=== PATIENT | male | born 1930 | race Caucasian/White ===

== ENCOUNTER 2016-09-08 09:41 | Emergency (ER) | payer OTHER ==
[2016-09-08 09:47] VITALS: BMI 24.3
[2016-09-08 10:33] LABS: BASOPHIL 0.7 % (0-2.0); EOSINOPHIL 0.8 % (0-4.5); MCH 32.1 pg (25.7-33.7); MCHC 33.4 g/dl (32.0-35.9); MEAN CELL VOLUME 96.1 fl (80-96); MEAN PLT VOLUME 9.2 fl (7.5-11.1); NEUTROPHILS 76.8 % (42.8-82.8); PLATELET COUNT 201 K/MM3 (134-434); WHITE BLOOD COUNT 6.6 K/mm3 (4.0-10.0)
--- NOTE | 2016-09-08 10:56 | PDOC ---
History of Present Illness - General Chief Complaint: Respiratory Stated Complaint: PCP SENT/ PMHX Time Seen by Provider: 09/08/16 09:50 - History of Present Illness Initial Comments: 09/08/16 10:31 CHIEF COMPLAINT: sob, cough HISTORY OF PRESENT ILLNESS: 86 yo M with hx of HTN and COPD presents to ED with shortness of breath x 6 days. Patient states that he was seen at [facility] on Friday and started on Augmentin for bronchitis, but he has had no improvement. He denies any chest pain, headache, fever, chills, nausea, vomiting, diarrhea. No recent travel or sick contacts. PAST MEDICAL HISTORY: as per HPI SOCIAL HISTORY: 50 pack year smoking history, quit 1999. Denies alcohol, illicit drug use. SURGICAL HISTORY: Denies ALLERGIES: No known drug allergies REVIEW OF SYSTEMS General/Constitutional: Denies fever or chills. Denies weakness, weight change. HEENT: Denies change in vision. Denies ear pain or discharge. Denies sore throat. Cardiovascular: Denies chest pain. Respiratory: SOB, cough x 6 days. Denies hemoptysis. Gastrointestinal: Denies nausea, vomiting, diarrhea or constipation. Denies rectal bleeding. Genitourinary: Denies dysuria, frequency, or change in urination. Musculoskeletal: Denies joint or muscle swelling or pain. Denies neck or back pain. Skin and breasts: Denies rash or easy bruising. Neurologic: Denies headache, vertigo, loss of consciousness, or loss of sensation. PHYSICAL EXAM General Appearance: Well-appearing, appropriately dressed. No apparent distress. HEENT: EOMI, PERRLA, normal ENT inspection, normal voice, TMs normal, pharynx normal. No conjunctival pallor. No photophobia, scleral icterus. Neck: Supple. Trachea midline. No tenderness, rigidity, carotid bruit, stridor , lymphadenopathy, or thyromegaly. Respiratory/Chest: Diffuse rhonchi and wheezing b/l. No chest tenderness, respiratory distress, accessory muscle use. No stridor, dullness. Cardiovascular: RRR. S1, S2. No JVD, murmur, bradycardia, tachycardia. Vascular Pulses: Dorsalis-Pedis (R): 2+, Dorsalis-Pedis (L): 2+ Gastrointestinal/Abdominal: Normal bowel sounds. Abdomen soft, non-distended. No tenderness or rebound tenderness. No organomegaly, pulsatile mass, guarding , hernia, hepatomegaly, splenomegaly. Musculoskeletal/Extremities: Normal inspection. FROM of all extremities, normal capillary refill. Pelvis Stable. No CVA tenderness. No tenderness to extremities, pedal edema, swelling, erythema or deformity. Integumentary: Appropriate color, dry, warm. 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 Fully oriented, alert. Appropriate mood/affect. Motor strength 5/5. No appreciable EOM palsy, facial droop or sensory deficit. 09/08/16 11:26 Past History - Past Medical History Allergies/Adverse Reactions: Allergies Allergy/AdvReac Type Severity Reaction Status Date / Time No Known Allergies Allergy Verified 09/08/16 09:47 Home Medications: Ambulatory Orders Lisinopril [Zestril] 2.5 mg PO DAILY 09/08/16 Cancer: Yes (PROSTATE) COPD: Yes HTN: Yes - Surgical History Cholecystectomy: Yes - Psycho/Social/Smoking Cessation Hx Suicidal Ideation: No Smoking History: Former smoker Have you smoked in the past 12 months: No If you are a former smoker, when did you quit?: 17 YRS Information on smoking cessation initiated: No Hx Alcohol Use: No Drug/Substance Use Hx: No Substance Use Type: None *Physical Exam - Vital Signs Last Vital Signs Temp Pulse Resp BP Pulse Ox 98.0 F 75 20 154/78 93 L 09/08/16 09:43 09/08/16 09:43 09/08/16 09:43 09/08/16 09:43 09/08/16 09:43 ED Treatment Course - LABORATORY CBC & Chemistry Diagram: 09/08/16 10:25 09/08/16 10:25 - RADIOLOGY Radiology Studies Ordered: Category Date Time Status CHEST PA & LAT [RAD] Stat Radiology 09/08/16 10:04 Ordered Medical Decision Making - Medical Decision Making 09/08/16 11:37 86 yo M with hx of HTN and COPD presents to ED with shortness of breath x 6 days. -CBC, CMP, PT/INR -CXR, EKG CXR: No acute pathology. Clear hyperaerated lungs. Read by: Alfredo Pappas MD EKG: NSR -DuonebChristopher nebs -Prednisone 60 mg -Azithromycin 500 mg Will reassess. Patient states he does not want to stay in the ED. Will discharge with antibiotics. Advised patient to d/c Augmentin and take Zpack and prednisone as prescribed. Patient verbalized understanding and agrees to plan. *DC/Admit/Observation/Transfer Diagnosis at time of Disposition: COPD (chronic obstructive pulmonary disease) with acute bronchitis - Discharge Dispostion Disposition: HOME Admit: No - Referrals Referrals: Paul Vasquez MD [Primary Care Provider] - - Patient Instructions Printed Discharge Instructions: DI for Acute Bronchitis Additional Instructions: Please take medications as prescribed. Follow up with Dr. Vasquez by the end of this week. As discussed, discontinue the Augmentin and start the azithromycin ( Z-pack). Please complete the entire course of medication. As discussed, if you develop shortness of breath, chest pain, fever, vomiting, or any new or worsening symptoms, please return to the ER.
[2016-09-08 10:57] LABS: ALBUMIN 3.7 g/dl (3.4-5.0); ANION GAP 9 (8-16); BILIRUBIN,TOTAL 1.2 mg/dL (0.2-1.0); CALCIUM 8.5 mg/dL (8.5-10.1); CO2 30 mmol/L (21-32); COCKROFT - GAULT 51.31; CREATININE 1.1 mg/dL (0.7-1.3); GLUCOSE,RANDOM 114 mg/dL (74-106); SGPT/ALT 29 U/L (12-78); TOT PROT 6.9 g/dl (6.4-8.2)
--- NOTE | 2016-09-08 10:59 | EKG ---
Test Reason : Blood Pressure : / mmHG Vent. Rate : 082 BPM Atrial Rate : 082 BPM P-R Int : 182 ms QRS Dur : 084 ms QT Int : 372 ms P-R-T Axes : 071 -20 045 degrees QTc Int : 434 ms POOR DATA QUALITY, INTERPRETATION MAY BE ADVERSELY AFFECTED NORMAL SINUS RHYTHM POOR R WAVE PROGRESSION CANNOT RULE OUT ANTERIOR INFARCT , AGE UNDETERMINED ABNORMAL ECG NO PREVIOUS ECGS AVAILABLE Confirmed by MD KAYLA, ENA ([id number]) on 09/08/2016 10:59:23 AM Referred By: Confirmed By:ENA GARZA MD
[2016-09-08 11:00] LABS: ALK PHOS 55 U/L (45-117); TROPONIN I < 0.02 ng/ml (0.00-0.05)
[2016-09-08] MEDS ORDERED: ALBUTEROL SO4 0.083% IH SOL 2.5 MG/3 ML VIAL.NEB. NEB ONE ×6 (11:00→13:57)
[2016-09-08] MEDS ORDERED: IPRATROPIUM BR 0.02% 0.5 MG/2.5 ML VIAL.NEB. NEB ONE ×2 (11:00→11:06)
[2016-09-08] MEDS ORDERED: predniSONE 20 MG TABLET (UD) PO ONE ×2 (11:00→11:01)
[2016-09-08] MEDS ORDERED: AZITHROMYCIN 250 MG TABLET (FP) PO ONE (11:01)
[2016-09-08 11:02] LABS: SGOT/AST 35 U/L (15-37)
--- NOTE | 2016-09-08 11:02 | PDOC ---
*Physical Exam - Vital Signs Last Vital Signs Temp Pulse Resp BP Pulse Ox 98.0 F 75 20 154/78 96 09/08/16 09:43 09/08/16 09:43 09/08/16 09:43 09/08/16 09:43 09/08/16 10:54 ED Treatment Course - LABORATORY CBC & Chemistry Diagram: 09/08/16 10:25 09/08/16 10:25 - ADDITIONAL ORDERS Additional order review: Laboratory Results 09/08/16 10:25 Sodium 135 L Chloride 96 L Carbon Dioxide 30 Anion Gap 9 BUN 25 H Creatinine 1.1 Creat Clearance w eGFR > 60 Random Glucose 114 H Calcium 8.5 Total Bilirubin 1.2 H ALT 29 Total Protein 6.9 Albumin 3.7 09/08/16 10:25 RBC 4.68 MCV 96.1 H MCHC 33.4 RDW 14.0 MPV 9.2 Neutrophils % 76.8 Lymphocytes % 10.0 Monocytes % 11.7 H Eosinophils % 0.8 Basophils % 0.7 Medical Decision Making - Medical Decision Making 09/08/16 11:01 Pt seen by the Advanced Practice Provider under my direct supervision Pt interviewed and examined Ancillary studies reviewed I agree with plan as outlined by the Advanced Practice Provider DENISE Rodney 86-year-old male with past medical history of COPD presents with coughing for several days. The patient was seen at urgent care and was given Augmentin but symptoms have not proven. Patient continues to wheeze and have chest congestion and the patient was directed to the ER. The patient is likely having a COPD exacerbation. He is significantly wheezy and rhonchorous. We'll initiate nebulizers and steroids. Should consider switching to azithromycin to cover for atypicals. If symptoms do not improve, should consider admission to the hospital. *DC/Admit/Observation/Transfer Diagnosis at time of Disposition: COPD (chronic obstructive pulmonary disease) with acute bronchitis - Discharge Dispostion Disposition: HOME - Referrals Referrals: Paul Vasquez MD [Primary Care Provider] - - Patient Instructions Printed Discharge Instructions: DI for Acute Bronchitis Additional Instructions: Please take medications as prescribed. Follow up with Dr. Vasquez by the end of this week. As discussed, discontinue the Augmentin and start the azithromycin ( Z-pack). Please complete the entire course of medication. As discussed, if you develop shortness of breath, chest pain, fever, vomiting, or any new or worsening symptoms, please return to the ER.
[2016-09-08] MEDS ORDERED: predniSONE 20 MG TABLET (UD) ONE (11:05)
[2016-09-08] MEDS ORDERED: predniSONE 10 MG TABLET (UD) ONE (11:05)
[2016-09-08] MEDS ORDERED: AZITHROMYCIN 250 MG TABLET (FP) ONE (11:19)
[2016-09-08 11:54] LABS: URINE APPEARANCE CLEAR; URINE BILIRUBIN NEGATIVE (NEGATIVE); URINE COLOR LTYELLOW; URINE GLUCOSE (UA) NEGATIVE (NEGATIVE); URINE KETONE TRACE (NEGATIVE); URINE LEUK ESTERASE NEGATIVE (NEGATIVE); URINE NITRITE NEGATIVE (NEGATIVE); URINE PROTEIN NEGATIVE (NEGATIVE); URINE UROBILINOGEN NEGATIVE E.U./dl (0.2-1.0)
[2016-09-08 12:04] LABS: URINE BLOOD 1+ (NEGATIVE)
[2016-09-08 12:06] LABS: URINE MUCUS RARE; URINE WBC <1 /hpf (3-5)
[2016-09-08 13:02] VITALS: BP 151/77; PULSE 94; TEMP 97.5
[2016-09-08] MEDS ORDERED: ALBUTEROL SO4 0.5 % INH SOLN 2.5 MG/0.5 ML VIAL.NEB. NEB ONE (13:22)
[2016-09-08] MEDS ORDERED: MAGNESIUM SULF 50% (8.12 MEQ/2 ML-1 GM VIAL) IVPB ONE (13:22)
[2016-09-08] MEDS ORDERED: MAGNESIUM SULF 50% (8.12 MEQ/2 ML-1 GM VIAL) ONE (13:57)
== END 2016-09-08 15:20 | disposition home or self-care (01) ==
LOC: JER 09:41
PROC: 3E033GC Introduction of Other Therapeutic Substance into Peripheral Vein, Percutaneous Approach (ICD-10-PCS; principal; 2016-09-08)
PROC: 3E0F7GC Introduction of Other Therapeutic Substance into Respiratory Tract, Via Natural or Artificial Opening (ICD-10-PCS; 2016-09-08)
PROC: 3E0F7GC Introduction of Other Therapeutic Substance into Respiratory Tract, Via Natural or Artificial Opening (ICD-10-PCS; 2016-09-08)
PROC: 3E0F7GC Introduction of Other Therapeutic Substance into Respiratory Tract, Via Natural or Artificial Opening (ICD-10-PCS; 2016-09-08)
PROC: 3E0F7GC Introduction of Other Therapeutic Substance into Respiratory Tract, Via Natural or Artificial Opening (ICD-10-PCS; 2016-09-08)
DX: J44.1 Chronic obstructive pulmonary disease with (acute) exacerbation (principal); I10 Essential (primary) hypertension; Z85.46 Personal history of malignant neoplasm of prostate
CPT/HCPCS: 36415; 71020-TC; 80053; 81003; 81015; 82550; 82553; 83880; 84484; 85025; 87086; 93005; 93010; 94640; 96374; 99285-25

== ENCOUNTER 2016-09-12 07:14 | Inpatient (IN) | payer OTHER ==
[2016-09-12] MEDS ORDERED: methylPREDNISolone NA SUCC 125 MG/2 ML VIAL IVPB ONE (07:41)
[2016-09-12] MEDS ORDERED: ALBUTEROL SO4 2.5/IPRATROPIUM 0.5 INH SOL 3 ML VIAL.NEB. NEB ONE ×4 (07:42→15:26)
--- NOTE | 2016-09-12 07:44 | PDOC ---
History of Present Illness - General Chief Complaint: Shortness of Breath Stated Complaint: CONGESTION/DIFFICULTY BREATHING Time Seen by Provider: 09/12/16 07:23 History Source: Patient Exam Limitations: No Limitations - History of Present Illness Initial Comments: 86 y/o M w/PMH of COPD/emphysema, HTN presents to ER with c/o of SOB. Pt was recently in ER on 09/08/16 for same symptoms and was discharged with a z-[place]. Pt states he was improving on z-[place] until yesterday when he felt a sore throat for approximately 15 min and began having worsening SOB since yesterday night, including inability to go to sleep due to SOB. SOB is worse this morning and is worse with sitting back in chair and laying down and exertion. Pt denies cough, chest pain, pain with inspiration, headache, n/v/f/c, abd pain, diarrhea, dysuria, blood in stool, recent sick contacts. At this time he does not have a sore throat and only felt it for 15 minutes yesterday before onset of SOB. He is not on oxygen therapy at home. At baseline he has difficulty walking up hills or stairs. At this time he feels as though he cannot walk more than 10-15 feet before getting SOB. Past History - Past Medical History Allergies/Adverse Reactions: Allergies Allergy/AdvReac Type Severity Reaction Status Date / Time No Known Allergies Allergy Verified 09/12/16 07:21 Home Medications: Ambulatory Orders Lisinopril [Zestril] 2.5 mg PO DAILY 09/08/16 Cancer: Yes (PROSTATE) COPD: Yes HTN: Yes - Surgical History Cholecystectomy: Yes - Psycho/Social/Smoking Cessation Hx Suicidal Ideation: No Smoking History: Former smoker Have you smoked in the past 12 months: No If you are a former smoker, when did you quit?: 17 YRS Information on smoking cessation initiated: No Hx Alcohol Use: No Drug/Substance Use Hx: No Substance Use Type: None Review of Systems - Review of Systems Able to Perform ROS?: Yes Comments:: GENERAL/CONSTITUTIONAL: No fever or chills. HEAD, EYES, EARS, NOSE AND THROAT: +Sore throat. No change in vision. No ear pain or discharge. CARDIOVASCULAR: No chest pain RESPIRATORY:+SOB, dyspnea with exertion No cough, wheezing, or hemoptysis. GASTROINTESTINAL: No nausea, vomiting GENITOURINARY: No dysuria. NEUROLOGIC: No headache, loss of consciousness. ALLERGIC/IMMUNOLOGIC: No hives *Physical Exam - Vital Signs Last Vital Signs Temp Pulse Resp BP Pulse Ox 97.6 F 87 20 164/95 95 09/12/16 07:17 09/12/16 07:17 09/12/16 07:17 09/12/16 07:17 09/12/16 07:30 - Physical Exam Comments: GENERAL: Awake, alert, and fully oriented, in no acute distress HEAD: No signs of trauma EYES: EOMI, sclera anicteric, conjunctiva clear ENT: Auricles normal inspection, hearing grossly normal, nares patent NECK: Normal ROM, supple LUNGS: B/L coarse breath sounds, tachypneic, some accessory muscle use but speaking in full sentences HEART: Difficult to auscultate over breath sounds ABDOMEN: Soft, nontender, normoactive bowel sounds. EXTREMITIES: Normal range of motion, no edema. NEUROLOGICAL: Normal speech, normal gait SKIN: Warm, Dry Heart Score/ECG Review - ECG Intrepretation Comment:: EKG: NSR @ 99 bpm; QTc 428 ms; No ST segment changes ED Treatment Course - LABORATORY CBC & Chemistry Diagram: 09/12/16 08:02 09/12/16 07:50 Medical Decision Making - Medical Decision Making 09/12/16 07:39 Likely COPD exacerbation. Will also r/o pna. Ordered: CXR, CBCD, CMP, cardiac profile, blood culture, EKG Ordered: Duo-neb, 125 mg IV solumedrol 09/12/16 08:48 CXR: No acute pathology. No significant change compared to CXR on 09/08/16. 09/12/16 09:24 Pt improved, able to lay back without SOB at this time. Will also give 1g ceftriaxone IV. To likely to require admission for COPD exacerbation. 09/12/16 09:35 Page sent out to Dr. Chen, covering for Dr. Vasquez. 09/12/16 10:[address] Escalera to Dr. Chen. Pt accepted for admission. *DC/Admit/Observation/Transfer Diagnosis at time of Disposition: COPD (chronic obstructive pulmonary disease) with acute bronchitis - Referrals Referrals: Paul Vasquez MD [Primary Care Provider] -
[2016-09-12] MEDS ORDERED: methylPREDNISolone NA SUCC 125 MG/2 ML VIAL ONE (07:53)
--- NOTE | 2016-09-12 08:03 | PDOC ---
Attending Attestation - Resident Resident Name: Dc Oseguera - ED Attending Attestation I have performed the following: I have examined & evaluated the patient, The case was reviewed & discussed with the resident, I agree w/resident's findings & plan, Exceptions are as noted - HPI HPI: 09/12/16 08:50 86-year-old male with past medical history of COPD returns to the emergency department for persistent rhonchi and wheezing. We had seen the patient several days ago for some her symptoms where he had improved with prednisone, azithromycin and nebulizers. However, patient reports that the symptoms worsened last day or 2. Reports shortness of breath. Return to the ED for further management. Reports congestion. - Physicial Exam PE: 09/12/16 08:51 GENERAL: Awake, alert, and fully oriented, in no acute distress. HEAD: No signs of trauma EYES: PERRLA, EOMI, sclera anicteric, conjunctiva clear ENT: Auricles normal inspection, hearing grossly normal, nares patent, oropharynx clear without exudates. NECK: Normal ROM, supple, no lymphadenopathy, JVD, or masses LUNGS: Diffuse ronchi and wheezing bilaterally HEART: Regular rate and rhythm, normal S1 and S2, no murmurs, rubs or gallops ABDOMEN: Soft, nontender, normoactive bowel sounds. No guarding, no rebound. No masses EXTREMITIES: Normal range of motion, no edema. No clubbing or cyanosis. No cords, erythema, or tenderness NEUROLOGICAL: Cranial nerves II through XII grossly intact. Normal speech, normal gait SKIN: Warm, Dry, normal turgor, no rashes or lesions noted. - Medical Decision Making 09/12/16 08:51 Patient continues to have persistent wheezing and rhonchi likely consistent with COPD exacerbation. The patient would benefit from admission to the hospital given frequent urgent care and ED visits for similar problems in the last week and a half. Nebs and steroids. Heart Score/ECG Review #1 ECG reviewed & interpreted by me at: 07:40 09/12/16 08:52 NSR 99, no std/keshawn, normal axis, normal intervals, QTC 428 msec
[2016-09-12 08:18] LABS: BASOPHIL 0.1 % (0-2.0); MCH 32.3 pg (25.7-33.7); MCHC 33.7 g/dl (32.0-35.9); MEAN CELL VOLUME 95.9 fl (80-96); MEAN PLT VOLUME 9.3 fl (7.5-11.1); NEUTROPHILS 94.2 % (42.8-82.8); PLATELET COUNT 313 K/MM3 (134-434); RDW 13.8 % (11.9-15.9); WHITE BLOOD COUNT 9.3 K/mm3 (4.0-10.0)
[2016-09-12 08:34] LABS: ALK PHOS 57 U/L (45-117); ANION GAP 12 (8-16); BILIRUBIN,TOTAL 1.2 mg/dL (0.2-1.0); CALCIUM 9.9 mg/dL (8.5-10.1); CO2 28 mmol/L (21-32); CREATININE 1.1 mg/dL (0.7-1.3); GLUCOSE,RANDOM 126 mg/dL (74-106); SGPT/ALT 29 U/L (12-78); TOT PROT 7.2 g/dl (6.4-8.2)
[2016-09-12 08:34] LABS: TROPONIN I < 0.02 ng/ml (0.00-0.05)
[2016-09-12 08:36] LABS: SGOT/AST 20 U/L (15-37)
[2016-09-12] MEDS ORDERED: CEFTRIAXONE 1 GM in DEXTROSE 5%-WATER - 50 ML IVPB ONE (09:40)
[2016-09-12] MEDS ORDERED: CEFTRIAXONE 50 ML ONE (09:46)
[2016-09-12] MEDS ORDERED: MAGNESIUM SULF 50% (8.12 MEQ/2 ML-1 GM VIAL) IVPB ONE (10:08)
[2016-09-12] MEDS ORDERED: PIPERACILLIN/TAZOB 3.375 GM/50 ML PRE-DOCKED IVPB ONE (10:08)
--- NOTE | 2016-09-12 10:12 | PDOC ---
*Physical Exam - Vital Signs Last Vital Signs Temp Pulse Resp BP Pulse Ox 97.6 F 87 20 164/95 95 09/12/16 07:17 09/12/16 07:17 09/12/16 07:17 09/12/16 07:17 09/12/16 07:30 ED Treatment Course - LABORATORY CBC & Chemistry Diagram: 09/12/16 08:02 09/12/16 07:50 - ADDITIONAL ORDERS Additional order review: Laboratory Results 09/12/16 09/12/16 08:02 07:50 Sodium 137 Potassium 4.4 Chloride 97 L Carbon Dioxide 28 Anion Gap 12 BUN 30 H Creatinine 1.1 Creat Clearance w eGFR > 60 Random Glucose 126 H Calcium 9.9 Total Bilirubin 1.2 H AST 20 D ALT 29 Alkaline Phosphatase 57 Creatine Kinase 74 Troponin I < 0.02 Total Protein 7.2 Albumin 4.0 09/12/16 08:02 RBC 4.92 MCV 95.9 MCHC 33.7 RDW 13.8 MPV 9.3 Neutrophils % 94.2 H D Lymphocytes % 4.5 L D Monocytes % 1.2 L D Eosinophils % 0.0 D Basophils % 0.1 - RADIOLOGY Radiology Studies Ordered: Category Date Time Status CHEST PA & LAT (NICOLÁS USE) [RAD] Stat Radiology 09/12/16 07:33 Completed - Medications Given in the ED: ED Medications Discontinued Medications Generic Name Dose Route Start Last Admin Trade Name Lisa PRN Reason Stop Dose Admin Albuterol/Ipratropium 1 amp 09/12/16 07:42 09/12/16 07:59 Duoneb - NEB 09/12/16 07:43 1 amp ONCE ONE Administration Ceftriaxone Sodium 1 gm/ 50 mls @ 100 mls/hr 09/12/16 09:40 09/12/16 09:55 Dextrose IVPB 09/12/16 10:09 100 mls/hr ONCE ONE Administration Methylprednisolone Sodium Succinate 125 mg 09/12/16 07:41 09/12/16 07:59 Solu-Medrol - IVPB 09/12/16 07:42 125 mg ONCE ONE Administration Medical Decision Making - Medical Decision Making 09/12/16 10:11 Chest xray and labs reviewed. Pt continues to wheeze and cough. Case discussed with Dr. Chen. Accepts patient to med/surg admission. Requests zosyn and consultation with Dr. Cedeño and Dr. Martinez. Case discussed in detail with admitting physician including history, physical exam and ancillary studies. Admitting physician has assumed care for the patient, will follow all pending diagnostics and will complete the evaluation and treatment. *DC/Admit/Observation/Transfer Diagnosis at time of Disposition: COPD (chronic obstructive pulmonary disease) with acute bronchitis - Discharge Dispostion Condition at time of disposition: Stable Admit: Yes
[2016-09-12] MEDS ORDERED: MAGNESIUM SULF 50% (8.12 MEQ/2 ML-1 GM VIAL) ONE (10:47)
[2016-09-12] MEDS ORDERED: PIPERACILLIN/TAZOB 3.375 GM 50 ML IVPB ONE (10:47)
[2016-09-12 11:00] LABS: ALLENS TEST POSITIVE; ARTERIAL BLD GAS O2 SATURATION 86.9 % (90-98.9); ARTERIAL BLOOD GAS BASE EXCESS 3.8 meq/l (-2-2); ARTERIAL BLOOD GAS HCO3 27.7 meq/L (22-26); ARTERIAL BLOOD GAS pH 7.45 (7.35-7.45)
[2016-09-12 11:01] LABS: ART PUNCT SITE LEFT RADIAL; ARTERIAL BLOOD GAS PO2 53.9 mmHg (68-100); LPM/O2% 21%; PT. ON O2? NO; TYPE OF O2 ROOM AIR
--- NOTE | 2016-09-12 13:07 | EKG ---
Test Reason : Blood Pressure : / mmHG Vent. Rate : 099 BPM Atrial Rate : 099 BPM P-R Int : 180 ms QRS Dur : 088 ms QT Int : 334 ms P-R-T Axes : 074 -06 045 degrees QTc Int : 428 ms POOR DATA QUALITY, INTERPRETATION MAY BE ADVERSELY AFFECTED NORMAL SINUS RHYTHM NORMAL ECG WHEN COMPARED WITH ECG OF 08-SEP-2016 10:05, NO SIGNIFICANT CHANGE WAS FOUND Confirmed by MARK MERLOS, SUE ([id number]) on 09/12/2016 1:06:47 PM Referred By: Confirmed By:SUE FLORES MD
--- NOTE | 2016-09-12 15:49 | CON.PULM ---
Consult Consult Specialty:: PULMONARY Referred by:: Dr. Escalera Reason for Consultation:: shortness of breath - History of Present Illness Chief Complaint: shortness of breath History of Present Illness: 86yo male with h/o HTN, COPD/emphysema who presents with worsening shortness of breath x 2 weeks. He was seen in the ER on 09/08 for similar symptoms and was discharged on a Z-[place]. He denies any chest pain or palpitations. No cough but with wheezing. He does not take any inhalers or use home oxygen. He denies sick contacts or recent travel. No leg swelling but has been sleeping almost in an upright position in order to breathe. He was a long time smoker, starting in his teens, smoked about 2 PPD until he quit 17 years ago. He worked at the [employer]. - History Source History Provided By: Patient, Medical Record Limitations to Obtaining History: No Limitations - Past Medical History Cardio/Vascular: Yes: HTN Pulmonary: Yes: COPD - Alcohol/Substance Use Hx Alcohol Use: No - Smoking History Smoking history: Former smoker Have you smoked in the past 12 months: No If you are a former smoker, when did you quit?: 17 YRS Home Medications - Allergies Allergies/Adverse Reactions: Allergies Allergy/AdvReac Type Severity Reaction Status Date / Time No Known Allergies Allergy Verified 09/12/16 07:21 - Home Medications Home Medications: Ambulatory Orders Lisinopril [Zestril] 2.5 mg PO DAILY 09/08/16 Family Disease History - Family Disease History Other Family History: non-contributory Review of Systems - Review of Systems Constitutional: reports: Weakness. denies: Chills, Fever Eyes: denies: Recent Change in Vision HENT: denies: Nasal Congestion, Throat Pain Neck: denies: Stiffness, Tenderness Cardiovascular: reports: Shortness of Breath. denies: Chest Pain, Edema, Palpitations Respiratory: reports: Exercise Intolerance, Orthopnea, SOB, SOB on Exertion, Wheezing. denies: Cough, Hemoptysis Gastrointestinal: denies: Abdominal Pain, Nausea, Vomiting Genitourinary: denies: Dysuria, Hematuria Neurological: denies: Dizziness, Headache Endocrine: denies: Unexplained Weight Loss Physical Exam Vital Sings: Vital Signs Temperature 97.9 F 09/12/16 11:27 Pulse Rate 83 09/12/16 15:25 Respiratory Rate 16 09/12/16 15:25 Blood Pressure 157/83 09/12/16 15:25 O2 Sat by Pulse Oximetry (%) 93 L 09/12/16 15:25 Constitutional: Yes: Calm Eyes: Yes: Conjunctiva Clear, EOM Intact HENT: Yes: Atraumatic, Normocephalic Neck: Yes: Supple, Trachea Midline Cardiovascular: Yes: Regular Rate and Rhythm Respiratory: Yes: Rhonchi, Wheezes ...Clubbing: No Gastrointestinal: Yes: Normal Bowel Sounds, Soft. No: Tenderness Edema: No Neurological: Yes: Alert, Oriented Labs: ABG Results ABG pH 7.45 (7.35-7.45) 09/12/16 10:45 ABG pCO2 at Pt Temp 41.0 mmHg (35-45) 09/12/16 10:45 ABG pO2 at Pt Temp 53.9 mmHg (68-100) L 09/12/16 10:45 ABG HCO3 27.7 meq/L (22-26) H 09/12/16 10:45 ABG O2 Sat (Measured) 86.9 % (90-98.9) L 09/12/16 10:45 ABG O2 Content 18.1 % vol (15-22) 09/12/16 10:45 ABG Base Excess 3.8 meq/l (-2-2) H 09/12/16 10:45 Imaging - Results Chest X-ray: Report Reviewed, Image Reviewed (no infiltrates) Problem List - Problems (1) Acute exacerbation of chronic obstructive pulmonary disease Code(s): J44.1 - CHRONIC OBSTRUCTIVE PULMONARY DISEASE W (ACUTE) EXACERBATION (2) COPD (chronic obstructive pulmonary disease) Code(s): J44.9 - CHRONIC OBSTRUCTIVE PULMONARY DISEASE, UNSPECIFIED (3) Emphysema of lung Code(s): J43.9 - EMPHYSEMA, UNSPECIFIED (4) HTN (hypertension) Code(s): I10 - ESSENTIAL (PRIMARY) HYPERTENSION Assessment/Plan Acute COPD Exacerbation Emphysema HTN - IV medrol - inhaled bronchodilators standing and PRN - O2 to keep SpO2 >90% - s/p recent Z-[place], no signs of infection at this time, can monitor off antibiotics - will need outpt PFTs and follow up - DVT prophylaxis Thank you for this consult Zachary Mathias MD
[2016-09-12] MEDS ORDERED: ALBUTEROL SO4 0.083% IH SOL 2.5 MG/3 ML VIAL.NEB. NEB PRN (15:53)
[2016-09-12] MEDS: methylPREDNISolone NA SUCC 40 MG/1 ML VIAL IVPB SCH ×2 (16:06→17:40)
[2016-09-12] MEDS ORDERED: ACETAMINOPHEN 325 MG TABLET (FP) PO PRN (16:51)
--- NOTE | 2016-09-12 16:59 | HP ---
Admitting History and Physical - Primary Care Physician PCP: Dr reymundo Cassidy - Admission Chief Complaint: C/O SOB/ Chest tightness/cough History of Present Illness: 86-year-old male with past medical history of COPD returns to the emergency department for persistent rhonchi and wheezing. We had seen the patient several days ago for some her symptoms where he had improved with prednisone, azithromycin and nebulizers. However, patient reports that the symptoms worsened last day or 2. Reports shortness of breath. Return to the ED for further management. Reports congestion. History Source: Patient Limitations to Obtaining History: No Limitations - Past Medical History Cardiovascular: Yes: HTN Pulmonary: Yes: COPD - Smoking History Smoking history: Former smoker Have you smoked in the past 12 months: No If you are a former smoker, when did you quit?: 17 YRS - Alcohol/Substance Use Hx Alcohol Use: No Home Medications - Allergies Allergies/Adverse Reactions: Allergies Allergy/AdvReac Type Severity Reaction Status Date / Time No Known Allergies Allergy Verified 09/12/16 07:21 - Home Medications Home Medications: Ambulatory Orders Lisinopril [Zestril] 2.5 mg PO DAILY 09/08/16 Family Disease History - Family Disease History Other Family History: non-contributory Review of Systems - Review of Systems Constitutional: reports: Lethargy, Malaise Eyes: reports: No Symptoms HENT: reports: Nasal Congestion, Throat Pain Neck: reports: No Symptoms Cardiovascular: reports: Other (Chest tightness) Respiratory: reports: Cough, SOB Gastrointestinal: reports: No Symptoms Genitourinary: reports: No Symptoms Musculoskeletal: reports: Back Pain Neurological: reports: No Symptoms Psychiatric: reports: Anxiety (From steroids) Physical Examination Vital Signs: Vital Signs Temperature 97.9 F 09/12/16 11:27 Pulse Rate 83 09/12/16 15:25 Respiratory Rate 16 09/12/16 15:25 Blood Pressure 157/83 09/12/16 15:25 O2 Sat by Pulse Oximetry (%) 93 L 09/12/16 15:25 Problem List - Problems (1) Acute exacerbation of chronic obstructive pulmonary disease Code(s): J44.1 - CHRONIC OBSTRUCTIVE PULMONARY DISEASE W (ACUTE) EXACERBATION (2) Acute hypoxemic respiratory failure Code(s): J96.01 - ACUTE RESPIRATORY FAILURE WITH HYPOXIA (3) Emphysema of lung Code(s): J43.9 - EMPHYSEMA, UNSPECIFIED (4) HTN (hypertension) Code(s): I10 - ESSENTIAL (PRIMARY) HYPERTENSION (5) Anxiety Code(s): F41.9 - ANXIETY DISORDER, UNSPECIFIED Assessment/Plan (1) Acute exacerbation of chronic obstructive pulmonary disease Code(s): J44.1 - CHRONIC OBSTRUCTIVE PULMONARY DISEASE W (ACUTE) EXACERBATION (2) Acute hypoxemic respiratory failure Code(s): J96.01 - ACUTE RESPIRATORY FAILURE WITH HYPOXIA (3) Emphysema of lung Code(s): J43.9 - EMPHYSEMA, UNSPECIFIED (4) HTN (hypertension) Code(s): I10 - ESSENTIAL (PRIMARY) HYPERTENSION (5) Anxiety Code(s): F41.9 - ANXIETY DISORDER, UNSPECIFIED
[2016-09-12 17:45] VITALS: BMI 25.6
--- NOTE | 2016-09-12 18:05 | CONSULT ---
Consult Consult Specialty:: infectious diseases Reason for Consultation:: pneumonia - History of Present Illness Chief Complaint: cough,wheezing History of Present Illness: 86 y/o M w/PMH of COPD/emphysema, HTN presents to admitted with sob . Pt was recently in ER on 09/08/16 for same symptoms and was discharged with a z -[place]. Pt states he was improving on z-[place] until yesterday when he felt a sore throat for approximately 15 min and began having worsening SOB , patient states that he was driving his and then he started to feel very sob specially after he started having sore throat patient does not feel any better at the moment patient needs oxygen and he is wheezing a lot with gurgling type of sound - History Source History Provided By: Patient Limitations to Obtaining History: No Limitations - Past Medical History Cardio/Vascular: Yes: HTN Pulmonary: Yes: COPD - Alcohol/Substance Use Hx Alcohol Use: No - Smoking History Smoking history: Former smoker Have you smoked in the past 12 months: No If you are a former smoker, when did you quit?: 17 YRS Home Medications - Allergies Allergies/Adverse Reactions: Allergies Allergy/AdvReac Type Severity Reaction Status Date / Time No Known Allergies Allergy Verified 09/12/16 07:21 - Home Medications Home Medications: Ambulatory Orders Lisinopril [Zestril] 2.5 mg PO DAILY 09/08/16 Family Disease History - Family Disease History Other Family History: non-contributory Review of Systems - Review of Systems Constitutional: reports: No Symptoms Eyes: reports: No Symptoms HENT: reports: No Symptoms Neck: reports: No Symptoms Cardiovascular: reports: No Symptoms Respiratory: reports: Cough, SOB, SOB on Exertion, Wheezing, Other Gastrointestinal: reports: No Symptoms Musculoskeletal: reports: No Symptoms Integumentary: reports: No Symptoms Neurological: reports: No Symptoms Endocrine: reports: No Symptoms Hematology/Lymphatic: reports: No Symptoms Psychiatric: reports: No Symptoms Physical Exam Vital Signs: Vital Signs Temperature 98.3 F 09/12/16 16:51 Pulse Rate 98 H 09/12/16 16:51 Respiratory Rate 22 09/12/16 16:51 Blood Pressure 150/93 09/12/16 16:51 O2 Sat by Pulse Oximetry (%) 93 L 09/12/16 15:25 Constitutional: Yes: Calm, Moderate Distress Eyes: Yes: Conjunctiva Clear HENT: Yes: Pharyngeal Erythema Cardiovascular: Yes: Regular Rate and Rhythm Respiratory: Yes: Poor Air Entry, Rhonchi, Wheezes Gastrointestinal: Yes: Normal Bowel Sounds, Soft Musculoskeletal: Yes: WNL Extremities: Yes: WNL Neurological: Yes: Alert, Oriented Psychiatric: Yes: Alert, Oriented Imaging - Results Chest X-ray: Report Reviewed, Image Reviewed Assessment/Plan after evaluating the patient and looking at his throat patinet has definitely has pharyngitis also there is definitely bronchitis and patient might have pneumonia pneumonia bronchitis cough patient has completed the course of z pack but has not improved in view of that i am going to start on abx plan i have started patient on zosyn will see if patient improves or not if patient does not improve will repeat ct scan
[2016-09-12 18:24] LABS: BASOPHIL 0.1 % (0-2.0); MCH 32.2 pg (25.7-33.7); MCHC 33.6 g/dl (32.0-35.9); MEAN CELL VOLUME 95.6 fl (80-96); MEAN PLT VOLUME 8.9 fl (7.5-11.1); PLATELET COUNT 304 K/MM3 (134-434); RDW 13.5 % (11.9-15.9); WHITE BLOOD COUNT 7.8 K/mm3 (4.0-10.0)
[2016-09-12] MEDS: PIPERACILLIN/TAZOB 3.375 GM 50 ML IVPB SCH (18:30)
[2016-09-12] MEDS: ALBUTEROL SO4 2.5/IPRATROPIUM 0.5 INH SOL 3 ML VIAL.NEB. NEB SCH ×2 (18:31→23:01)
[2016-09-12] MEDS: DEXTROSE 5%-0.45% SALINE 1,000 ML IV SCH (18:32)
[2016-09-12 18:43] LABS: ALBUMIN 3.9 g/dl (3.4-5.0); BILIRUBIN,TOTAL 0.8 mg/dL (0.2-1.0); CALCIUM 9.3 mg/dL (8.5-10.1); COCKROFT - GAULT 41.79; CREATININE 1.3 mg/dL (0.7-1.3)
[2016-09-12] MEDS: HEPARIN NA (PORCINE) 5,000 UNITS/ML 1ML VIAL SQ SCH (21:36)
[2016-09-12] MEDS: PANTOPRAZOLE 40 MG TABLET (FP) PO SCH (21:37)
[2016-09-12] MEDS: MONTELUKAST NA 10 MG TABLET PO SCH (21:37)
[2016-09-12] MEDS: BUDESONIDE/FORMETEROL FUMARATE 160/4.5 mcg INHALER IH SCH (21:38)
[2016-09-12] MEDS: ZOLPIDEM TARTRATE 5 MG TABLET PO PRN (21:38)
[2016-09-13] MEDS ORDERED: ENOXAPARIN NA (PORCINE) 60 MG/0.6 ML DISP.SYRIN SQ ONE ×2 (00:15→23:45)
[2016-09-13] MEDS: methylPREDNISolone NA SUCC 40 MG/1 ML VIAL IVPB SCH ×3 (02:10→17:33)
[2016-09-13] MEDS: PIPERACILLIN/TAZOB 3.375 GM 50 ML IVPB SCH ×3 (02:12→18:15)
[2016-09-13] MEDS: ALBUTEROL SO4 2.5/IPRATROPIUM 0.5 INH SOL 3 ML VIAL.NEB. NEB SCH ×4 (06:45→23:30)
[2016-09-13 08:59] LABS: MAGNESIUM 2.3 mg/dL (1.8-2.4); PHOSPHOROUS 3.8 mg/dL (2.5-4.9); TROPONIN I < 0.02 ng/ml (0.00-0.05)
[2016-09-13] MEDS ORDERED: PT OWN MED DRAWER 7, Y5N ONE (09:46)
[2016-09-13] MEDS: PANTOPRAZOLE 40 MG TABLET (FP) PO SCH ×2 (09:53→23:34)
[2016-09-13] MEDS: LISINOPRIL 5 MG TABLET (FP) PO SCH (09:53)
[2016-09-13] MEDS: HEPARIN NA (PORCINE) 5,000 UNITS/ML 1ML VIAL SQ SCH (09:53)
[2016-09-13] MEDS: BUDESONIDE/FORMETEROL FUMARATE 160/4.5 mcg INHALER IH SCH ×2 (09:56→23:34)
[2016-09-13 10:37] LABS: ARTERIAL BLOOD GAS PO2 72.5 mmHg (68-100); ARTERIAL BLOOD GAS pH 7.42 (7.35-7.45)
[2016-09-13 10:38] LABS: ALLENS TEST POSITIVE
[2016-09-13 10:39] LABS: ART PUNCT SITE RIGHT BRACHIAL; LPM/O2% 2L; PT. ON O2? YES
[2016-09-13 10:40] LABS: ARTERIAL BLOOD GAS HCO3 27.6 meq/L (22-26); TYPE OF O2 NASAL O2
[2016-09-13] MEDS: DEXTROSE 5%-0.45% SALINE 1,000 ML IV SCH (12:19)
--- NOTE | 2016-09-13 13:14 | PN ---
Progress Note, Physician History of Present Illness: PULMONARY ALERT,SLOWLY IMPROVING, REMAINS HYPOXEMIC ON RA - Current Medication List Current Medications: Active Medications Acetaminophen (Tylenol -) 650 mg PO Q4H PRN PRN Reason: FEVER OR PAIN Last Admin: 09/13/16 09:54 Dose: 650 mg Albuterol Sulfate (Ventolin 0.083% Nebulizer Soln -) 1 amp NEB Q4H PRN PRN Reason: SHORT OF BREATH/WHEEZING Last Admin: 09/13/16 00:07 Dose: 1 amp Albuterol/Ipratropium (Duoneb -) 1 amp NEB QIDR [facility] Last Admin: 09/13/16 11:17 Dose: 1 amp Budesonide/Formoterol Fumarate (Symbicort 160/4.5mcg -) 2 puff IH BID [facility] Last Admin: 09/13/16 09:56 Dose: 2 puff Heparin Sodium (Porcine) (Heparin -) 5,000 unit SQ BID [facility] Last Admin: 09/13/16 09:53 Dose: 5,000 unit Dextrose/Sodium Chloride (D5-1/2ns -) 1,000 mls @ 75 mls/hr IV ASDIR [facility] Last Admin: 09/13/16 12:19 Dose: 75 mls/hr Piperacillin Sod/Tazobactam Sod (Zosyn 3.375gm Ivpb (Pre-Docked)) 50 mls @ 100 mls/hr IVPB Q8H-IV [facility] PRN Reason: Protocol Last Admin: 09/13/16 10:45 Dose: 100 mls/hr Lisinopril (Prinivil) 5 mg PO DAILY [facility] Last Admin: 09/13/16 09:53 Dose: 5 mg Methylprednisolone Sodium Succinate (Solu-Medrol -) 40 mg IVPB Q8H-IV [facility] Last Admin: 09/13/16 09:54 Dose: 40 mg Montelukast Sodium (Singulair -) 10 mg PO HS [facility] Last Admin: 09/12/16 21:37 Dose: 10 mg Pantoprazole Sodium (Protonix -) 40 mg PO BID [facility] Last Admin: 09/13/16 09:53 Dose: 40 mg Zolpidem Tartrate (Ambien -) 5 mg PO HS PRN PRN Reason: INSOMNIA Last Admin: 09/12/16 21:38 Dose: 5 mg - Objective Vital Signs: Vital Signs Temperature 97.8 F 09/13/16 10:10 Pulse Rate 98 H 09/13/16 10:10 Respiratory Rate 22 09/13/16 10:10 Blood Pressure 145/77 09/13/16 10:10 O2 Sat by Pulse Oximetry (%) 94 L 09/12/16 21:00 Constitutional: Yes: Well Nourished, Calm Eyes: Yes: WNL HENT: Yes: WNL Neck: Yes: WNL Cardiovascular: Yes: Regular Rate and Rhythm, S1, S2 Respiratory: Yes: Rhonchi (FEW RHONCHI) Gastrointestinal: Yes: Normal Bowel Sounds, Soft Extremities: Yes: WNL Edema: No Labs: Laboratory Tests 09/12/16 09/13/16 10:45 10:05 ABG pH 7.45 7.42 ABG pCO2 at Pt Temp 41.0 43.9 ABG pO2 at Pt Temp 53.9 L 72.5 D ABG HCO3 27.7 H 27.6 H ABG O2 Sat (Measured) 86.9 L 94.0 ABG O2 Content 22.0 O2 Delivery Device Nasal o2 Oxygen Flow Rate 21% 2l Problem List - Problems (1) Acute hypoxemic respiratory failure Code(s): J96.01 - ACUTE RESPIRATORY FAILURE WITH HYPOXIA Assessment/Plan Problem List - Problems (1) Acute exacerbation of chronic obstructive pulmonary disease Code(s): J44.1 - CHRONIC OBSTRUCTIVE PULMONARY DISEASE W (ACUTE) EXACERBATION (2) COPD (chronic obstructive pulmonary disease) Code(s): J44.9 - CHRONIC OBSTRUCTIVE PULMONARY DISEASE, UNSPECIFIED (3) Emphysema of lung Code(s): J43.9 - EMPHYSEMA, UNSPECIFIED (4) HTN (hypertension) Code(s): I10 - ESSENTIAL (PRIMARY) HYPERTENSION Assessment/Plan Acute COPD Exacerbation Acute hypoxemic respiratory failure Emphysema HTN - IV medrol same dose - spiriva - symbicort - inhaled bronchodilators - O2 to keep SpO2 >90% - outpt PFTs and follow up - DVT prophylaxis DR MOSLEY
[2016-09-13 13:44] LABS: CALCIUM 8.9 mg/dL (8.5-10.1); COCKROFT - GAULT 41.79; CREATININE 1.3 mg/dL (0.7-1.3)
[2016-09-13 13:50] LABS: MCH 32.4 pg (25.7-33.7); MCHC 33.6 g/dl (32.0-35.9); MEAN CELL VOLUME 96.4 fl (80-96); PLATELET COUNT 290 K/MM3 (134-434); RDW 13.7 % (11.9-15.9); WHITE BLOOD COUNT 10.8 K/mm3 (4.0-10.0)
--- NOTE | 2016-09-13 14:40 | CONSULT ---
Consult - text type - Consultation Consultation Note: Renal Consult for CKD/Contrast Nephropathy Risk Stratification and Prophylaxis This is a 86 year old Gentleman with PMhx of COPD, Former Smoker, Hypertension who presented with SOB despite outpatient Abx and planed for CTA of the Lungs with Cr of 1.3. Pt on O2, and continues to have SOB. On IV steroids. Denies any history of CKD, Kidney stones, or recurrent UTI. On Lisinopril for Hypertension. No chest pain, abd pain, N/V/D, flank pain, BEEBE, confusion, lethargy, weakness, LE edema. PMhx: as above Allergies: NKDA Family Hx: NC Social Hx: Former smoker ROS: as per HPI, all other pertinent ros negative Home Meds: Home Medications Medication Instructions Recorded Lisinopril [Zestril] 2.5 mg PO DAILY 09/08/16 Vital Signs Temperature 97.8 F 09/13/16 10:10 Pulse Rate 98 H 09/13/16 10:10 Respiratory Rate 22 09/13/16 10:10 Blood Pressure 145/77 09/13/16 10:10 O2 Sat by Pulse Oximetry (%) 95 09/13/16 09:00 Intake & Output 09/10/16 09/11/16 09/12/16 09/13/16 23:59 23:59 23:59 23:59 Intake Total 320 1670 Balance 320 1670 Weight 154 lb Gen: NAD, awake and alert on NC HEENT: NC/AT, MMM, NO JVD CVS: RRR, No M/R Lungs: CTA, no rales or wheeze Abd: Soft NT/ND Ext no edema, clubbing or cyanosis : No bladder distension CBC, BMP 09/13/16 12:45 09/13/16 12:45 Current Medications Acetaminophen (Tylenol -) 650 mg PO Q4H PRN PRN Reason: FEVER OR PAIN Last Admin: 09/13/16 09:54 Dose: 650 mg Acetylcysteine (Mucomyst 20 Oral / Inh Use Only*) 1,200 mg PO Q12H [facility] Stop: 09/15/16 02:46 Albuterol Sulfate (Ventolin 0.083% Nebulizer Soln -) 1 amp NEB Q4H PRN PRN Reason: SHORT OF BREATH/WHEEZING Last Admin: 09/13/16 00:07 Dose: 1 amp Albuterol/Ipratropium (Duoneb -) 1 amp NEB QIDR [facility] Last Admin: 09/13/16 11:17 Dose: 1 amp Budesonide/Formoterol Fumarate (Symbicort 160/4.5mcg -) 2 puff IH BID [facility] Last Admin: 09/13/16 09:56 Dose: 2 puff Heparin Sodium (Porcine) (Heparin -) 5,000 unit SQ BID [facility] Last Admin: 09/13/16 09:53 Dose: 5,000 unit Piperacillin Sod/Tazobactam Sod (Zosyn 3.375gm Ivpb (Pre-Docked)) 50 mls @ 100 mls/hr IVPB Q8H-IV [facility] PRN Reason: Protocol Last Admin: 09/13/16 10:45 Dose: 100 mls/hr Sodium Chloride (Normal Saline -) 1,000 mls @ 83 mls/hr IV ASDIR [facility] Lisinopril (Prinivil) 5 mg PO DAILY [facility] Last Admin: 09/13/16 09:53 Dose: 5 mg Methylprednisolone Sodium Succinate (Solu-Medrol -) 40 mg IVPB Q8H-IV [facility] Last Admin: 09/13/16 09:54 Dose: 40 mg Montelukast Sodium (Singulair -) 10 mg PO HS [facility] Last Admin: 09/12/16 21:37 Dose: 10 mg Pantoprazole Sodium (Protonix -) 40 mg PO BID [facility] Last Admin: 09/13/16 09:53 Dose: 40 mg Zolpidem Tartrate (Ambien -) 5 mg PO HS PRN PRN Reason: INSOMNIA Last Admin: 09/12/16 21:38 Dose: 5 mg A/P 86 year old Gentleman with PMhx of COPD, Former Smoker, Hypertension who presented with SOB despite outpatient Abx and planed for CTA of the Lungs with Cr of 1.3. #Contrast Nephropathy risk stratifcation and prophylaxis Risk of Contrast Nephropathy is 10% and Risk of Dialysis is 0.1% Calculated using SHELDON risk calculator developed by [employer] and published in the [place] [employer] Journal These risks were made clear to the patient and he expressed understanding and a willingness to proceed if the procedure was needed will change IVF to isotonic saline and start mucomyst 1200mg BID Will need to trend BUN/Cr for up to 72 hours following contrast exposure for SHELDON monitoring Avoid NSAIDS or any other nephrotoxin at this time #SOB/Hypoxia/COPD continue Steroids/Nebs/O2 Pulmonary follow up Possible CTA #Hypertension Continue Lisinopril Thank you Will follow Zack Saleem DO
--- NOTE | 2016-09-13 14:51 | PN ---
Progress Note, Physician Chief Complaint: SOB/ Chest tightness/ Cough got better Periods of Hypoxia Pt had improved well Pt has blister on Lt leg History of Present Illness: Pt feeling much better BP better controlled Lt leg blister seen by ID also - Current Medication List Current Medications: Active Medications Acetaminophen (Tylenol -) 650 mg PO Q4H PRN PRN Reason: FEVER OR PAIN Last Admin: 09/13/16 09:54 Dose: 650 mg Acetylcysteine (Mucomyst 20 Oral / Inh Use Only*) 1,200 mg PO Q12H [facility] Stop: 09/15/16 02:46 Albuterol Sulfate (Ventolin 0.083% Nebulizer Soln -) 1 amp NEB Q4H PRN PRN Reason: SHORT OF BREATH/WHEEZING Last Admin: 09/13/16 00:07 Dose: 1 amp Albuterol/Ipratropium (Duoneb -) 1 amp NEB QIDR [facility] Last Admin: 09/13/16 11:17 Dose: 1 amp Budesonide/Formoterol Fumarate (Symbicort 160/4.5mcg -) 2 puff IH BID [facility] Last Admin: 09/13/16 09:56 Dose: 2 puff Heparin Sodium (Porcine) (Heparin -) 5,000 unit SQ BID [facility] Last Admin: 09/13/16 09:53 Dose: 5,000 unit Piperacillin Sod/Tazobactam Sod (Zosyn 3.375gm Ivpb (Pre-Docked)) 50 mls @ 100 mls/hr IVPB Q8H-IV [facility] PRN Reason: Protocol Last Admin: 09/13/16 10:45 Dose: 100 mls/hr Sodium Chloride (Normal Saline -) 1,000 mls @ 83 mls/hr IV ASDIR [facility] Lisinopril (Prinivil) 5 mg PO DAILY [facility] Last Admin: 09/13/16 09:53 Dose: 5 mg Methylprednisolone Sodium Succinate (Solu-Medrol -) 40 mg IVPB Q8H-IV [facility] Last Admin: 09/13/16 09:54 Dose: 40 mg Montelukast Sodium (Singulair -) 10 mg PO HS [facility] Last Admin: 09/12/16 21:37 Dose: 10 mg Pantoprazole Sodium (Protonix -) 40 mg PO BID [facility] Last Admin: 09/13/16 09:53 Dose: 40 mg Zolpidem Tartrate (Ambien -) 5 mg PO HS PRN PRN Reason: INSOMNIA Last Admin: 09/12/16 21:38 Dose: 5 mg - Objective Vital Signs: Vital Signs Temperature 97.8 F 09/13/16 10:10 Pulse Rate 98 H 09/13/16 10:10 Respiratory Rate 22 09/13/16 10:10 Blood Pressure 145/77 09/13/16 10:10 O2 Sat by Pulse Oximetry (%) 95 09/13/16 09:00 Constitutional: Yes: No Distress Eyes: Yes: Conjunctiva Clear HENT: Yes: Atraumatic, Normocephalic Neck: Yes: Supple, Trachea Midline Cardiovascular: Yes: Regular Rate and Rhythm, S1, S2 Respiratory: Yes: Regular, CTA Bilaterally Gastrointestinal: Yes: Normal Bowel Sounds, Soft Edema: No Peripheral Pulses WNL: Yes Labs: CBC, BMP 09/13/16 12:45 09/13/16 12:45 Problem List - Problems (1) Acute exacerbation of chronic obstructive pulmonary disease Code(s): J44.1 - CHRONIC OBSTRUCTIVE PULMONARY DISEASE W (ACUTE) EXACERBATION (2) Acute hypoxemic respiratory failure Code(s): J96.01 - ACUTE RESPIRATORY FAILURE WITH HYPOXIA (3) Anxiety Code(s): F41.9 - ANXIETY DISORDER, UNSPECIFIED (4) COPD (chronic obstructive pulmonary disease) Code(s): J44.9 - CHRONIC OBSTRUCTIVE PULMONARY DISEASE, UNSPECIFIED (5) Emphysema of lung Code(s): J43.9 - EMPHYSEMA, UNSPECIFIED (6) HTN (hypertension) Code(s): I10 - ESSENTIAL (PRIMARY) HYPERTENSION Assessment/Plan (1) Acute exacerbation of chronic obstructive pulmonary disease Code(s): J44.1 - CHRONIC OBSTRUCTIVE PULMONARY DISEASE W (ACUTE) EXACERBATION (2) Acute hypoxemic respiratory failure Code(s): J96.01 - ACUTE RESPIRATORY FAILURE WITH HYPOXIA (3) Emphysema of lung Code(s): J43.9 - EMPHYSEMA, UNSPECIFIED (4) HTN (hypertension) Code(s): I10 - ESSENTIAL (PRIMARY) HYPERTENSION (5) Anxiety Code(s): F41.9 - ANXIETY DISORDER, UNSPECIFIED
[2016-09-13] MEDS: SODIUM CHLORIDE 1,000 ML IV SCH (15:16)
[2016-09-13] MEDS: ACETYLCYSTEINE 20% 200MG/ML 4 ML VIAL *FOR ORAL / INH USE ONLY PO SCH (15:39)
[2016-09-13] MEDS: ZOLPIDEM TARTRATE 5 MG TABLET PO PRN (23:34)
[2016-09-13] MEDS: MONTELUKAST NA 10 MG TABLET PO SCH (23:34)
[2016-09-14] MEDS: methylPREDNISolone NA SUCC 40 MG/1 ML VIAL IVPB SCH ×3 (02:14→17:08)
[2016-09-14] MEDS: PIPERACILLIN/TAZOB 3.375 GM 50 ML IVPB SCH ×3 (02:19→17:08)
[2016-09-14] MEDS: ACETYLCYSTEINE 20% 200MG/ML 4 ML VIAL *FOR ORAL / INH USE ONLY PO SCH (03:05)
[2016-09-14] MEDS: ALBUTEROL SO4 2.5/IPRATROPIUM 0.5 INH SOL 3 ML VIAL.NEB. NEB SCH ×4 (06:21→23:12)
[2016-09-14 07:44] LABS: ALLENS TEST POSITIVE; ART PUNCT SITE RIGHT BRACHIAL; ARTERIAL BLD GAS O2 SATURATION 97.9 % (90-98.9); ARTERIAL BLOOD GAS BASE EXCESS 3.2 meq/l (-2-2); ARTERIAL BLOOD GAS pH 7.41 (7.35-7.45); LPM/O2% 2L; PT. ON O2? YES; TYPE OF O2 NASAL O2
--- NOTE | 2016-09-14 09:56 | PN ---
Progress Note, Physician History of Present Illness: patient feeling much better still with cough but dry - Current Medication List Current Medications: Active Medications Acetaminophen (Tylenol -) 650 mg PO Q4H PRN PRN Reason: FEVER OR PAIN Last Admin: 09/13/16 09:54 Dose: 650 mg Acetylcysteine (Mucomyst 20 Oral / Inh Use Only*) 1,200 mg PO Q12H [facility] Stop: 09/15/16 04:01 Last Admin: 09/14/16 03:05 Dose: 1,200 mg Albuterol Sulfate (Ventolin 0.083% Nebulizer Soln -) 1 amp NEB Q4H PRN PRN Reason: SHORT OF BREATH/WHEEZING Last Admin: 09/13/16 00:07 Dose: 1 amp Albuterol/Ipratropium (Duoneb -) 1 amp NEB QIDR [facility] Last Admin: 09/14/16 06:21 Dose: 1 amp Budesonide/Formoterol Fumarate (Symbicort 160/4.5mcg -) 2 puff IH BID [facility] Last Admin: 09/13/16 23:34 Dose: 2 puff Enoxaparin Sodium (Lovenox -) 60 mg SQ DAILY [facility] Piperacillin Sod/Tazobactam Sod (Zosyn 3.375gm Ivpb (Pre-Docked)) 50 mls @ 100 mls/hr IVPB Q8H-IV [facility] PRN Reason: Protocol Last Admin: 09/14/16 02:19 Dose: 100 mls/hr Sodium Chloride (Normal Saline -) 1,000 mls @ 83 mls/hr IV ASDIR [facility] Last Admin: 09/13/16 15:16 Dose: 83 mls/hr Lisinopril (Prinivil) 5 mg PO DAILY [facility] Last Admin: 09/13/16 09:53 Dose: 5 mg Methylprednisolone Sodium Succinate (Solu-Medrol -) 40 mg IVPB Q8H-IV [facility] Last Admin: 09/14/16 02:14 Dose: 40 mg Montelukast Sodium (Singulair -) 10 mg PO HS [facility] Last Admin: 09/13/16 23:34 Dose: 10 mg Pantoprazole Sodium (Protonix -) 40 mg PO BID [facility] Last Admin: 09/13/16 23:34 Dose: 40 mg Zolpidem Tartrate (Ambien -) 5 mg PO HS PRN PRN Reason: INSOMNIA Last Admin: 09/13/16 23:34 Dose: 5 mg - Objective Vital Signs: Vital Signs Temperature 97.5 F L 09/14/16 06:00 Pulse Rate 70 09/14/16 06:00 Respiratory Rate 18 09/14/16 06:00 Blood Pressure 152/79 09/14/16 06:00 O2 Sat by Pulse Oximetry (%) 97 09/13/16 21:00 Constitutional: Yes: No Distress, Calm Cardiovascular: Yes: Regular Rate and Rhythm Respiratory: Yes: Regular, On Nasal O2, Rhonchi, Other Gastrointestinal: Yes: Normal Bowel Sounds, Soft Musculoskeletal: Yes: WNL Extremities: Yes: WNL Neurological: Yes: Alert, Oriented Psychiatric: Yes: Alert, Oriented Labs: CBC, BMP 09/13/16 12:45 09/13/16 12:45 Assessment/Plan pneumonia bronchitis cough plan continue abx for now will deescalate on friday rest as per primary continue incentive camacho
[2016-09-14] MEDS ORDERED: ENOXAPARIN NA (PORCINE) 60 MG/0.6 ML DISP.SYRIN SQ SCH (10:00)
[2016-09-14] MEDS ORDERED: PT OWN MED DRAWER 7, Y5N ONE (10:56)
[2016-09-14] MEDS: LISINOPRIL 5 MG TABLET (FP) PO SCH (11:00)
[2016-09-14] MEDS: PANTOPRAZOLE 40 MG TABLET (FP) PO SCH ×2 (11:01→22:24)
[2016-09-14] MEDS: BUDESONIDE/FORMETEROL FUMARATE 160/4.5 mcg INHALER IH SCH ×2 (11:01→22:24)
--- NOTE | 2016-09-14 11:12 | PN ---
Progress Note (short form) - Note Progress Note: Pt seen/ examined / chart reviewed comfortable sitting in chair denies pain breathing stable-- says better Vital Signs Temp 97.5 F L 09/14/16 06:00 Pulse 70 09/14/16 06:00 Resp 18 09/14/16 06:00 BP 152/79 09/14/16 06:00 Pulse Ox 97 09/13/16 21:00 Intake & Output 09/13/16 09/13/16 09/14/16 11:59 23:59 11:59 Intake Total 1670 1955 1336 Output Total 1400 400 Balance 1670 555 936 Intake: IV 900 925 996 D5-1/2Ns - 1,000 ml @ 75 900 675 mls/hr IV ASDIR [facility] Rx#: [id number] Normal Saline - 1,000 ml 250 996 @ 83 mls/hr IV ASDIR [facility] Rx#:[id number] IVPB 200 100 100 Oral 570 930 240 Output: Urine 1400 400 Void 1400 400 Other: Voiding Method Toilet Toilet # Unmeasured Voids Void 2 2 1 Bowel Movement No Yes Yes # Bowel Movements 1 Active Medications Acetaminophen (Tylenol -) 650 mg PO Q4H PRN PRN Reason: FEVER OR PAIN Last Admin: 09/13/16 09:54 Dose: 650 mg Acetylcysteine (Mucomyst 20 Oral / Inh Use Only*) 1,200 mg PO Q12H [facility] Stop: 09/15/16 04:01 Last Admin: 09/14/16 03:05 Dose: 1,200 mg Albuterol Sulfate (Ventolin 0.083% Nebulizer Soln -) 1 amp NEB Q4H PRN PRN Reason: SHORT OF BREATH/WHEEZING Last Admin: 09/13/16 00:07 Dose: 1 amp Albuterol/Ipratropium (Duoneb -) 1 amp NEB QIDR [facility] Last Admin: 09/14/16 06:21 Dose: 1 amp Budesonide/Formoterol Fumarate (Symbicort 160/4.5mcg -) 2 puff IH BID [facility] Last Admin: 09/14/16 11:01 Dose: 2 puff Enoxaparin Sodium (Lovenox -) 60 mg SQ DAILY [facility] Last Admin: 09/14/16 11:00 Dose: 60 mg Piperacillin Sod/Tazobactam Sod (Zosyn 3.375gm Ivpb (Pre-Docked)) 50 mls @ 100 mls/hr IVPB Q8H-IV [facility] PRN Reason: Protocol Last Admin: 09/14/16 11:02 Dose: 100 mls/hr Sodium Chloride (Normal Saline -) 1,000 mls @ 83 mls/hr IV ASDIR [facility] Last Admin: 09/13/16 15:16 Dose: 83 mls/hr Lisinopril (Prinivil) 5 mg PO DAILY [facility] Last Admin: 09/14/16 11:00 Dose: 5 mg Methylprednisolone Sodium Succinate (Solu-Medrol -) 40 mg IVPB Q8H-IV [facility] Last Admin: 09/14/16 02:14 Dose: 40 mg Montelukast Sodium (Singulair -) 10 mg PO HS [facility] Last Admin: 09/13/16 23:34 Dose: 10 mg Pantoprazole Sodium (Protonix -) 40 mg PO BID [facility] Last Admin: 09/14/16 11:01 Dose: 40 mg Zolpidem Tartrate (Ambien -) 5 mg PO HS PRN PRN Reason: INSOMNIA Last Admin: 09/13/16 23:34 Dose: 5 mg CBC, BMP 09/13/16 12:45 09/13/16 12:45 Physical Exam Constitutional: Yes: No Distress, Calm/ comfortable Cardiovascular: Yes: Regular Rate and Rhythm Respiratory: Yes: Scattered, Rhonchi, Gastrointestinal: Yes: Normal Bowel Sounds, Soft Extremities: Yes:no edema Neurological: Yes: Alert, Oriented Psychiatric: Yes: Alert, Oriented Assessment/Plan Better Continue present care Abx Incentive Spirometry Dvt Prophylaxis f/u labs will follow Dr. Aaron-- Coverage Dr. Chen Problem List - Problems (1) Acute exacerbation of chronic obstructive pulmonary disease Code(s): J44.1 - CHRONIC OBSTRUCTIVE PULMONARY DISEASE W (ACUTE) EXACERBATION (2) Emphysema of lung Code(s): J43.9 - EMPHYSEMA, UNSPECIFIED (3) HTN (hypertension) Code(s): I10 - ESSENTIAL (PRIMARY) HYPERTENSION
[2016-09-14 12:43] LABS: CALCIUM 8.9 mg/dL (8.5-10.1); COCKROFT - GAULT 49.39; CREATININE 1.1 mg/dL (0.7-1.3)
--- NOTE | 2016-09-14 12:43 | PN ---
Progress Note (short form) - Note Progress Note: Renal Follow up Pt seen and examined at the bedside reports that his breathing is improved denies any fever, no N/V/D Vital Signs Temperature 97.5 F L 09/14/16 06:00 Pulse Rate 70 09/14/16 06:00 Respiratory Rate 18 09/14/16 06:00 Blood Pressure 152/79 09/14/16 06:00 O2 Sat by Pulse Oximetry (%) 97 09/13/16 21:00 Intake & Output 09/11/16 09/12/16 09/13/16 09/14/16 23:59 23:59 23:59 23:59 Intake Total 320 3625 1576 Output Total 1400 400 Balance 320 2225 1176 Weight 154 lb Gen: NAD, awake and alert on NC CVS: RRR, No M/R Lungs: CTA, no rales or wheeze Abd: Soft NT/ND Ext no edema, clubbing or cyanosis CBC, BMP 09/13/16 12:45 Current Medications Acetaminophen (Tylenol -) 650 mg PO Q4H PRN PRN Reason: FEVER OR PAIN Last Admin: 09/13/16 09:54 Dose: 650 mg Acetylcysteine (Mucomyst 20 Oral / Inh Use Only*) 1,200 mg PO Q12H [facility] Stop: 09/15/16 04:01 Last Admin: 09/14/16 03:05 Dose: 1,200 mg Albuterol Sulfate (Ventolin 0.083% Nebulizer Soln -) 1 amp NEB Q4H PRN PRN Reason: SHORT OF BREATH/WHEEZING Last Admin: 09/13/16 00:07 Dose: 1 amp Albuterol/Ipratropium (Duoneb -) 1 amp NEB QIDR [facility] Last Admin: 09/14/16 11:24 Dose: 1 amp Budesonide/Formoterol Fumarate (Symbicort 160/4.5mcg -) 2 puff IH BID [facility] Last Admin: 09/14/16 11:01 Dose: 2 puff Enoxaparin Sodium (Lovenox -) 60 mg SQ DAILY [facility] Last Admin: 09/14/16 11:00 Dose: 60 mg Piperacillin Sod/Tazobactam Sod (Zosyn 3.375gm Ivpb (Pre-Docked)) 50 mls @ 100 mls/hr IVPB Q8H-IV [facility] PRN Reason: Protocol Last Admin: 09/14/16 11:02 Dose: 100 mls/hr Sodium Chloride (Normal Saline -) 1,000 mls @ 83 mls/hr IV ASDIR [facility] Last Admin: 09/13/16 15:16 Dose: 83 mls/hr Lisinopril (Prinivil) 5 mg PO DAILY [facility] Last Admin: 09/14/16 11:00 Dose: 5 mg Methylprednisolone Sodium Succinate (Solu-Medrol -) 40 mg IVPB Q8H-IV [facility] Last Admin: 09/14/16 12:15 Dose: 40 mg Montelukast Sodium (Singulair -) 10 mg PO HS [facility] Last Admin: 09/13/16 23:34 Dose: 10 mg Pantoprazole Sodium (Protonix -) 40 mg PO BID [facility] Last Admin: 09/14/16 11:01 Dose: 40 mg Zolpidem Tartrate (Ambien -) 5 mg PO HS PRN PRN Reason: INSOMNIA Last Admin: 09/13/16 23:34 Dose: 5 mg A/P 86 year old Gentleman with PMhx of COPD, Former Smoker, Hypertension who presented with SOB despite outpatient Abx and planed for CTA of the Lungs with Cr of 1.3. #Contrast Nephropathy risk stratifcation and prophylaxis ? need for CTA of the lungs given improved clinical status to be decided by pulmonary/Primary on IVF the the present time todays BUN/Cr pending #SOB/Hypoxia/COPD continue Steroids/Nebs/O2 Pulmonary follow up Possible CTA #Hypertension Continue Lisinopril Thank you Will follow Zack Saleem DO
--- NOTE | 2016-09-14 12:51 | PN ---
Progress Note (short form) - Note Progress Note: Clinically better. Less SOB. No CP. Intake & Output 09/11/16 09/12/16 09/13/16 09/14/16 23:59 23:59 23:59 23:59 Intake Total 320 3625 1576 Output Total 1400 400 Balance 320 2225 1176 Weight 154 lb Last Vital Signs Temp Pulse Resp BP Pulse Ox 97.5 F L 70 18 152/79 97 09/14/16 06:00 09/14/16 06:00 09/14/16 06:00 09/14/16 06:00 09/13/16 21:00 Active Medications Acetaminophen (Tylenol -) 650 mg PO Q4H PRN PRN Reason: FEVER OR PAIN Last Admin: 09/13/16 09:54 Dose: 650 mg Acetylcysteine (Mucomyst 20 Oral / Inh Use Only*) 1,200 mg PO Q12H [facility] Stop: 09/15/16 04:01 Last Admin: 09/14/16 03:05 Dose: 1,200 mg Albuterol Sulfate (Ventolin 0.083% Nebulizer Soln -) 1 amp NEB Q4H PRN PRN Reason: SHORT OF BREATH/WHEEZING Last Admin: 09/13/16 00:07 Dose: 1 amp Albuterol/Ipratropium (Duoneb -) 1 amp NEB QIDR [facility] Last Admin: 09/14/16 11:24 Dose: 1 amp Budesonide/Formoterol Fumarate (Symbicort 160/4.5mcg -) 2 puff IH BID [facility] Last Admin: 09/14/16 11:01 Dose: 2 puff Enoxaparin Sodium (Lovenox -) 60 mg SQ DAILY [facility] Last Admin: 09/14/16 11:00 Dose: 60 mg Piperacillin Sod/Tazobactam Sod (Zosyn 3.375gm Ivpb (Pre-Docked)) 50 mls @ 100 mls/hr IVPB Q8H-IV NADIA PRN Reason: Protocol Last Admin: 09/14/16 11:02 Dose: 100 mls/hr Sodium Chloride (Normal Saline -) 1,000 mls @ 83 mls/hr IV ASDIR [facility] Last Admin: 09/13/16 15:16 Dose: 83 mls/hr Lisinopril (Prinivil) 5 mg PO DAILY [facility] Last Admin: 09/14/16 11:00 Dose: 5 mg Methylprednisolone Sodium Succinate (Solu-Medrol -) 40 mg IVPB Q8H-IV NADIA Last Admin: 09/14/16 12:15 Dose: 40 mg Montelukast Sodium (Singulair -) 10 mg PO HS [facility] Last Admin: 09/13/16 23:34 Dose: 10 mg Pantoprazole Sodium (Protonix -) 40 mg PO BID [facility] Last Admin: 09/14/16 11:01 Dose: 40 mg Zolpidem Tartrate (Ambien -) 5 mg PO HS PRN PRN Reason: INSOMNIA Last Admin: 09/13/16 23:34 Dose: 5 mg Constitutional: Yes: NAD Eyes: Yes: WNL HENT: Yes: WNL Neck: Yes: WNL Cardiovascular: Yes: Regular Rate and Rhythm, S1, S2 Respiratory: Yes: Bilateral scattered Rhonchi Gastrointestinal: Yes: Normal Bowel Sounds, Soft Extremities: Yes: WNL Edema: No Labs: Laboratory Results - last 24 hr 09/13/16 09/13/16 09/13/16 12:45 12:45 14:47 WBC 10.8 H D RBC 4.46 Hgb 14.4 Hct 42.9 MCV 96.4 H MCHC 33.6 RDW 13.7 Plt Count 290 MPV 9.0 D-Dimer 332 H Puncture Site ABG pH ABG pCO2 at Pt Temp ABG pO2 at Pt Temp ABG HCO3 ABG O2 Sat (Measured) ABG O2 Content ABG Base Excess Zhou Test O2 Delivery Device Oxygen Flow Rate Sodium 139 Potassium 4.0 Chloride 98 Carbon Dioxide 28 Anion Gap 13 BUN 27 H Creatinine 1.3 POC Glucometer Random Glucose 139 H Calcium 8.9 09/13/16 09/14/16 09/14/16 16:28 03:13 06:46 WBC RBC Hgb Hct MCV MCHC RDW Plt Count MPV D-Dimer Puncture Site ABG pH ABG pCO2 at Pt Temp ABG pO2 at Pt Temp ABG HCO3 ABG O2 Sat (Measured) ABG O2 Content ABG Base Excess Zhou Test O2 Delivery Device Oxygen Flow Rate Sodium Potassium Chloride Carbon Dioxide Anion Gap BUN Creatinine POC Glucometer 120 105 117 Random Glucose Calcium 09/14/16 09/14/16 09/14/16 07:30 12:05 12:14 WBC RBC Hgb Hct MCV MCHC RDW Plt Count MPV D-Dimer Puncture Site Right brachial ABG pH 7.41 ABG pCO2 at Pt Temp 45.3 H ABG pO2 at Pt Temp 102.0 H D ABG HCO3 28.0 H ABG O2 Sat (Measured) 97.9 ABG O2 Content 18.7 ABG Base Excess 3.2 H Zhou Test Positive O2 Delivery Device Nasal o2 Oxygen Flow Rate 2l Sodium 140 Potassium 4.4 Chloride 102 Carbon Dioxide 31 Anion Gap 7 L BUN 27 H Creatinine 1.1 POC Glucometer 103 Random Glucose 100 D Calcium 8.9 Problem List - Problems (1) Acute exacerbation of chronic obstructive pulmonary disease Code(s): J44.1 - CHRONIC OBSTRUCTIVE PULMONARY DISEASE W (ACUTE) EXACERBATION (2) COPD (chronic obstructive pulmonary disease) Code(s): J44.9 - CHRONIC OBSTRUCTIVE PULMONARY DISEASE, UNSPECIFIED (3) Emphysema of lung Code(s): J43.9 - EMPHYSEMA, UNSPECIFIED (4) HTN (hypertension) Code(s): I10 - ESSENTIAL (PRIMARY) HYPERTENSION Assessment/Plan Acute COPD Exacerbation Acute hypoxemic respiratory failure Emphysema HTN - IV medrol - spiriva - symbicort - inhaled bronchodilators - O2 to keep SpO2 >90% - outpt PFTs and follow up - DVT prophylaxis - Low suspicion of VTE -> Will D/C CT Dr Martinez
[2016-09-14] MEDS ORDERED: ENOXAPARIN NA (PORCINE) 40 MG/0.4 ML DISP.SYRIN SQ SCH (13:00)
[2016-09-14] MEDS: SODIUM CHLORIDE 1,000 ML IV SCH ×2 (16:52→23:35)
[2016-09-14] MEDS: MONTELUKAST NA 10 MG TABLET PO SCH (22:24)
[2016-09-15] MEDS: methylPREDNISolone NA SUCC 40 MG/1 ML VIAL IVPB SCH ×3 (02:12→21:25)
[2016-09-15] MEDS: PIPERACILLIN/TAZOB 3.375 GM 50 ML IVPB SCH ×3 (02:12→19:05)
[2016-09-15] MEDS: ALBUTEROL SO4 2.5/IPRATROPIUM 0.5 INH SOL 3 ML VIAL.NEB. NEB SCH ×3 (06:37→17:26)
[2016-09-15 08:30] LABS: MCH 32.3 pg (25.7-33.7); MCHC 33.4 g/dl (32.0-35.9); MEAN CELL VOLUME 96.5 fl (80-96); MEAN PLT VOLUME 8.8 fl (7.5-11.1); PLATELET COUNT 240 K/MM3 (134-434); RDW 13.8 % (11.9-15.9); WHITE BLOOD COUNT 8.9 K/mm3 (4.0-10.0)
[2016-09-15 09:10] LABS: ALBUMIN 2.9 g/dl (3.4-5.0); ANION GAP 8 (8-16); CALCIUM 8.9 mg/dL (8.5-10.1); CO2 28 mmol/L (21-32); COCKROFT - GAULT 49.39; CREATININE 1.1 mg/dL (0.7-1.3); GLUCOSE,RANDOM 98 mg/dL (74-106); SGPT/ALT 69 U/L (12-78)
[2016-09-15 09:12] LABS: ALK PHOS 35 U/L (45-117); BILIRUBIN,TOTAL 0.8 mg/dL (0.2-1.0); TOT PROT 5.3 g/dl (6.4-8.2)
[2016-09-15 09:15] LABS: SGOT/AST 29 U/L (15-37)
[2016-09-15 09:50] LABS: METAMYELOCYTE 1 % (0-2); PLATELET ESTIMATE ADEQUATE (NORMAL)
[2016-09-15] MEDS ORDERED: PT OWN MED DRAWER 7, Y5N ONE ×2 (10:31→19:01)
[2016-09-15] MEDS: ENOXAPARIN NA (PORCINE) 40 MG/0.4 ML DISP.SYRIN SQ SCH (10:35)
[2016-09-15] MEDS: BUDESONIDE/FORMETEROL FUMARATE 160/4.5 mcg INHALER IH SCH ×2 (10:35→21:25)
[2016-09-15] MEDS: LISINOPRIL 5 MG TABLET (FP) PO SCH (10:35)
[2016-09-15] MEDS: PANTOPRAZOLE 40 MG TABLET (FP) PO SCH ×2 (10:35→21:25)
--- NOTE | 2016-09-15 10:58 | PN ---
Progress Note, Physician History of Present Illness: patient doing much better able to walk says much better still on nasal cannula - Current Medication List Current Medications: Active Medications Acetaminophen (Tylenol -) 650 mg PO Q4H PRN PRN Reason: FEVER OR PAIN Last Admin: 09/13/16 09:54 Dose: 650 mg Albuterol Sulfate (Ventolin 0.083% Nebulizer Soln -) 1 amp NEB Q4H PRN PRN Reason: SHORT OF BREATH/WHEEZING Last Admin: 09/13/16 00:07 Dose: 1 amp Albuterol/Ipratropium (Duoneb -) 1 amp NEB QIDR [facility] Last Admin: 09/15/16 06:37 Dose: 1 amp Budesonide/Formoterol Fumarate (Symbicort 160/4.5mcg -) 2 puff IH BID [facility] Last Admin: 09/15/16 10:35 Dose: 2 puff Enoxaparin Sodium (Lovenox -) 40 mg SQ DAILY [facility] Last Admin: 09/15/16 10:35 Dose: 40 mg Piperacillin Sod/Tazobactam Sod (Zosyn 3.375gm Ivpb (Pre-Docked)) 50 mls @ 100 mls/hr IVPB Q8H-IV NADIA PRN Reason: Protocol Last Admin: 09/15/16 02:12 Dose: 100 mls/hr Sodium Chloride (Normal Saline -) 1,000 mls @ 83 mls/hr IV ASDIR [facility] Last Admin: 09/14/16 23:35 Dose: 83 mls/hr Lisinopril (Prinivil) 5 mg PO DAILY [facility] Last Admin: 09/15/16 10:35 Dose: 5 mg Methylprednisolone Sodium Succinate (Solu-Medrol -) 40 mg IVPB Q8H-IV NADIA Last Admin: 09/15/16 10:35 Dose: 40 mg Montelukast Sodium (Singulair -) 10 mg PO HS [facility] Last Admin: 09/14/16 22:24 Dose: 10 mg Pantoprazole Sodium (Protonix -) 40 mg PO BID [facility] Last Admin: 09/15/16 10:35 Dose: 40 mg Zolpidem Tartrate (Ambien -) 5 mg PO HS PRN PRN Reason: INSOMNIA Last Admin: 09/13/16 23:34 Dose: 5 mg - Objective Vital Signs: Vital Signs Temperature 98.2 F 09/15/16 06:00 Pulse Rate 63 09/15/16 06:00 Respiratory Rate 18 09/15/16 06:00 Blood Pressure 146/69 09/15/16 06:00 O2 Sat by Pulse Oximetry (%) 97 09/13/16 21:00 Constitutional: Yes: No Distress, Calm Cardiovascular: Yes: Regular Rate and Rhythm Respiratory: Yes: Regular, On Nasal O2, Rhonchi Gastrointestinal: Yes: Normal Bowel Sounds, Soft Musculoskeletal: Yes: WNL Extremities: Yes: WNL Neurological: Yes: Alert, Oriented Psychiatric: Yes: Alert Labs: CBC, BMP 09/15/16 07:10 09/15/16 07:10 Assessment/Plan pneumonia bronchitis cough ac copd exacerbation plan will stop abx tomorrow physio rest as per primary continue incentive camacho
--- NOTE | 2016-09-15 11:13 | PN ---
Progress Note (short form) - Note Progress Note: Pt seen/ examined feels better i/d f/u noted Vital Signs Period Temp Pulse Resp BP Sys/[place] Pulse Ox Last 24 Hr 97.7 F-98.2 F 58-86 18-22 129-146/57-78 Active Medications Acetaminophen (Tylenol -) 650 mg PO Q4H PRN PRN Reason: FEVER OR PAIN Last Admin: 09/13/16 09:54 Dose: 650 mg Albuterol Sulfate (Ventolin 0.083% Nebulizer Soln -) 1 amp NEB Q4H PRN PRN Reason: SHORT OF BREATH/WHEEZING Last Admin: 09/13/16 00:07 Dose: 1 amp Albuterol/Ipratropium (Duoneb -) 1 amp NEB QIDR [facility] Last Admin: 09/15/16 11:10 Dose: 1 amp Budesonide/Formoterol Fumarate (Symbicort 160/4.5mcg -) 2 puff IH BID [facility] Last Admin: 09/15/16 10:35 Dose: 2 puff Enoxaparin Sodium (Lovenox -) 40 mg SQ DAILY [facility] Last Admin: 09/15/16 10:35 Dose: 40 mg Piperacillin Sod/Tazobactam Sod (Zosyn 3.375gm Ivpb (Pre-Docked)) 50 mls @ 100 mls/hr IVPB Q8H-IV NADIA PRN Reason: Protocol Last Admin: 09/15/16 11:11 Dose: 100 mls/hr Sodium Chloride (Normal Saline -) 1,000 mls @ 83 mls/hr IV ASDIR [facility] Last Admin: 09/14/16 23:35 Dose: 83 mls/hr Lisinopril (Prinivil) 5 mg PO DAILY [facility] Last Admin: 09/15/16 10:35 Dose: 5 mg Methylprednisolone Sodium Succinate (Solu-Medrol -) 40 mg IVPB Q8H-IV NADIA Last Admin: 09/15/16 10:35 Dose: 40 mg Montelukast Sodium (Singulair -) 10 mg PO HS [facility] Last Admin: 09/14/16 22:24 Dose: 10 mg Pantoprazole Sodium (Protonix -) 40 mg PO BID [facility] Last Admin: 09/15/16 10:35 Dose: 40 mg Zolpidem Tartrate (Ambien -) 5 mg PO HS PRN PRN Reason: INSOMNIA Last Admin: 09/13/16 23:34 Dose: 5 mg CBC, BMP 09/15/16 07:10 09/15/16 07:10 Physical Exam Constitutional: Yes: No Distress, Calm/ comfortable Cardiovascular: Yes: Regular Rate and Rhythm Respiratory: Yes: Scattered, Rhonchi, - better air entry Gastrointestinal: Yes: Normal Bowel Sounds, Soft Extremities: Yes:no edema Neurological: Yes: Alert, Oriented Psychiatric: Yes: Alert, Oriented Assessment/Plan Better Continue present care Abx-- d/c in am Incentive Spirometry Dvt Prophylaxis taper steroids Dr. Aaron-- Coverage Dr. Chen Problem List - Problems (1) Acute exacerbation of chronic obstructive pulmonary disease Code(s): J44.1 - CHRONIC OBSTRUCTIVE PULMONARY DISEASE W (ACUTE) EXACERBATION (2) Emphysema of lung Code(s): J43.9 - EMPHYSEMA, UNSPECIFIED (3) HTN (hypertension) Code(s): I10 - ESSENTIAL (PRIMARY) HYPERTENSION
--- NOTE | 2016-09-15 15:18 | PN ---
Progress Note (short form) - Note Progress Note: Continues to clinically improve. Less SOB. No CP. Intake & Output 09/12/16 09/13/16 09/14/16 09/15/16 23:59 23:59 23:59 23:59 Intake Total 320 3625 2892 1940 Output Total 6429 502 4995 Balance 320 2225 2492 940 Weight 154 lb Last Vital Signs Temp Pulse Resp BP Pulse Ox 97.5 F L 70 18 158/78 97 09/15/16 14:55 09/15/16 14:55 09/15/16 14:55 09/15/16 14:55 09/13/16 21:00 Active Medications Acetaminophen (Tylenol -) 650 mg PO Q4H PRN PRN Reason: FEVER OR PAIN Last Admin: 09/13/16 09:54 Dose: 650 mg Albuterol Sulfate (Ventolin 0.083% Nebulizer Soln -) 1 amp NEB Q4H PRN PRN Reason: SHORT OF BREATH/WHEEZING Last Admin: 09/13/16 00:07 Dose: 1 amp Albuterol/Ipratropium (Duoneb -) 1 amp NEB QIDR [facility] Last Admin: 09/15/16 11:10 Dose: 1 amp Budesonide/Formoterol Fumarate (Symbicort 160/4.5mcg -) 2 puff IH BID [facility] Last Admin: 09/15/16 10:35 Dose: 2 puff Enoxaparin Sodium (Lovenox -) 40 mg SQ DAILY [facility] Last Admin: 09/15/16 10:35 Dose: 40 mg Piperacillin Sod/Tazobactam Sod (Zosyn 3.375gm Ivpb (Pre-Docked)) 50 mls @ 100 mls/hr IVPB Q8H-IV NADIA PRN Reason: Protocol Last Admin: 09/15/16 11:11 Dose: 100 mls/hr Sodium Chloride (Normal Saline -) 1,000 mls @ 83 mls/hr IV ASDIR [facility] Last Admin: 09/14/16 23:35 Dose: 83 mls/hr Lisinopril (Prinivil) 5 mg PO DAILY [facility] Last Admin: 09/15/16 10:35 Dose: 5 mg Methylprednisolone Sodium Succinate (Solu-Medrol -) 40 mg IVPB Q8H-IV [facility] Last Admin: 09/15/16 10:35 Dose: 40 mg Montelukast Sodium (Singulair -) 10 mg PO HS [facility] Last Admin: 09/14/16 22:24 Dose: 10 mg Pantoprazole Sodium (Protonix -) 40 mg PO BID [facility] Last Admin: 09/15/16 10:35 Dose: 40 mg Zolpidem Tartrate (Ambien -) 5 mg PO HS PRN PRN Reason: INSOMNIA Last Admin: 09/13/16 23:34 Dose: 5 mg Constitutional: Yes: NAD Eyes: Yes: WNL HENT: Yes: WNL Neck: Yes: WNL Cardiovascular: Yes: Regular Rate and Rhythm, S1, S2 Respiratory: Yes: Bilateral scattered Rhonchi Gastrointestinal: Yes: Normal Bowel Sounds, Soft Extremities: Yes: WNL Edema: No Labs: Laboratory Results - last 24 hr 09/14/16 09/14/16 09/15/16 17:07 20:55 06:19 WBC RBC Hgb Hct MCV MCHC RDW Plt Count MPV Neutrophils % Lymphocytes % Monocytes % Metamyelocytes Myelocytes Platelet Estimate Platelet Comment Sodium Potassium Chloride Carbon Dioxide Anion Gap BUN Creatinine Creat Clearance w eGFR POC Glucometer 109 128 96 Random Glucose Calcium Total Bilirubin AST ALT Alkaline Phosphatase Total Protein Albumin 09/15/16 09/15/16 09/15/16 07:10 07:10 12:09 WBC 8.9 RBC 4.22 Hgb 13.6 Hct 40.7 MCV 96.5 H MCHC 33.4 RDW 13.8 Plt Count 240 MPV 8.8 Neutrophils % 91.0 H Lymphocytes % 3.0 L D Monocytes % 4.0 Metamyelocytes 1 Myelocytes 1 Platelet Estimate Adequate Platelet Comment No clumping noted Sodium 140 Potassium 4.6 Chloride 104 Carbon Dioxide 28 Anion Gap 8 BUN 27 H Creatinine 1.1 Creat Clearance w eGFR > 60 POC Glucometer 105 Random Glucose 98 Calcium 8.9 Total Bilirubin 0.8 AST 29 D ALT 69 D Alkaline Phosphatase 35 L D Total Protein 5.3 L D Albumin 2.9 L D Problem List - Problems (1) Acute exacerbation of chronic obstructive pulmonary disease Code(s): J44.1 - CHRONIC OBSTRUCTIVE PULMONARY DISEASE W (ACUTE) EXACERBATION (2) COPD (chronic obstructive pulmonary disease) Code(s): J44.9 - CHRONIC OBSTRUCTIVE PULMONARY DISEASE, UNSPECIFIED (3) Emphysema of lung Code(s): J43.9 - EMPHYSEMA, UNSPECIFIED (4) HTN (hypertension) Code(s): I10 - ESSENTIAL (PRIMARY) HYPERTENSION Assessment/Plan Acute COPD Exacerbation Acute hypoxemic respiratory failure Emphysema HTN - Taper IV medrol - spiriva - symbicort - inhaled bronchodilators - O2 to keep SpO2 >90% - outpt PFTs and follow up - DVT prophylaxis Dr Martinez
[2016-09-15] MEDS: SODIUM CHLORIDE 1,000 ML IV SCH (15:29)
[2016-09-15] MEDS: MONTELUKAST NA 10 MG TABLET PO SCH (21:25)
[2016-09-16] MEDS: PIPERACILLIN/TAZOB 3.375 GM 50 ML IVPB SCH ×2 (01:51→09:48)
[2016-09-16] MEDS: ALBUTEROL SO4 2.5/IPRATROPIUM 0.5 INH SOL 3 ML VIAL.NEB. NEB SCH ×5 (05:31→23:28)
[2016-09-16] MEDS: SODIUM CHLORIDE 1,000 ML IV SCH ×3 (07:15→22:42)
[2016-09-16 08:45] LABS: CALCIUM 8.7 mg/dL (8.5-10.1)
[2016-09-16 08:46] LABS: COCKROFT - GAULT 49.39; CREATININE 1.1 mg/dL (0.7-1.3)
[2016-09-16] MEDS: LISINOPRIL 5 MG TABLET (FP) PO SCH (09:50)
[2016-09-16] MEDS: PANTOPRAZOLE 40 MG TABLET (FP) PO SCH ×2 (09:50→22:44)
[2016-09-16] MEDS: BUDESONIDE/FORMETEROL FUMARATE 160/4.5 mcg INHALER IH SCH ×2 (09:50→22:42)
[2016-09-16] MEDS: ENOXAPARIN NA (PORCINE) 40 MG/0.4 ML DISP.SYRIN SQ SCH (09:50)
--- NOTE | 2016-09-16 10:00 | PN ---
Progress Note, Physician Chief Complaint: SOB/ Chest tightness/ Cough got better Periods of Hypoxia Pt had improved well Pt has blister on Lt leg History of Present Illness: Pt feeling much better BP better controlled Lt leg blister seen by ID also - Current Medication List Current Medications: Active Medications Acetaminophen (Tylenol -) 650 mg PO Q4H PRN PRN Reason: FEVER OR PAIN Last Admin: 09/13/16 09:54 Dose: 650 mg Albuterol Sulfate (Ventolin 0.083% Nebulizer Soln -) 1 amp NEB Q4H PRN PRN Reason: SHORT OF BREATH/WHEEZING Last Admin: 09/13/16 00:07 Dose: 1 amp Albuterol/Ipratropium (Duoneb -) 1 amp NEB QIDR [facility] Last Admin: 09/16/16 05:31 Dose: 1 amp Budesonide/Formoterol Fumarate (Symbicort 160/4.5mcg -) 2 puff IH BID [facility] Last Admin: 09/16/16 09:50 Dose: 2 puff Enoxaparin Sodium (Lovenox -) 40 mg SQ DAILY [facility] Last Admin: 09/16/16 09:50 Dose: 40 mg Piperacillin Sod/Tazobactam Sod (Zosyn 3.375gm Ivpb (Pre-Docked)) 50 mls @ 100 mls/hr IVPB Q8H-IV NADIA PRN Reason: Protocol Last Admin: 09/16/16 09:48 Dose: 100 mls/hr Sodium Chloride (Normal Saline -) 1,000 mls @ 83 mls/hr IV ASDIR [facility] Last Admin: 09/15/16 15:29 Dose: 83 mls/hr Lisinopril (Prinivil) 5 mg PO DAILY [facility] Last Admin: 09/16/16 09:50 Dose: 5 mg Methylprednisolone Sodium Succinate (Solu-Medrol -) 40 mg IVPB BID [facility] Last Admin: 09/15/16 21:25 Dose: 40 mg Montelukast Sodium (Singulair -) 10 mg PO HS [facility] Last Admin: 09/15/16 21:25 Dose: 10 mg Pantoprazole Sodium (Protonix -) 40 mg PO BID [facility] Last Admin: 09/16/16 09:50 Dose: 40 mg - Objective Vital Signs: Vital Signs Temperature 98.0 F 09/16/16 06:00 Pulse Rate 66 09/16/16 06:00 Respiratory Rate 16 09/16/16 06:00 Blood Pressure 148/82 09/16/16 06:00 O2 Sat by Pulse Oximetry (%) 98 09/15/16 22:00 Constitutional: Yes: Well Nourished, No Distress Eyes: Yes: Conjunctiva Clear, EOM Intact HENT: Yes: Atraumatic, Normocephalic Neck: Yes: Supple, Trachea Midline Cardiovascular: Yes: Regular Rate and Rhythm, S1, S2 Respiratory: Yes: Regular, CTA Bilaterally Gastrointestinal: Yes: Normal Bowel Sounds, Soft Edema: No Labs: CBC, BMP 09/15/16 07:10 09/16/16 07:10 Problem List - Problems (1) Acute exacerbation of chronic obstructive pulmonary disease Code(s): J44.1 - CHRONIC OBSTRUCTIVE PULMONARY DISEASE W (ACUTE) EXACERBATION (2) Acute hypoxemic respiratory failure Code(s): J96.01 - ACUTE RESPIRATORY FAILURE WITH HYPOXIA (3) Emphysema of lung Code(s): J43.9 - EMPHYSEMA, UNSPECIFIED (4) HTN (hypertension) Code(s): I10 - ESSENTIAL (PRIMARY) HYPERTENSION (5) Anxiety Code(s): F41.9 - ANXIETY DISORDER, UNSPECIFIED Assessment/Plan (1) Acute exacerbation of chronic obstructive pulmonary disease Code(s): J44.1 - CHRONIC OBSTRUCTIVE PULMONARY DISEASE W (ACUTE) EXACERBATION (2) Acute hypoxemic respiratory failure Code(s): J96.01 - ACUTE RESPIRATORY FAILURE WITH HYPOXIA (3) Emphysema of lung Code(s): J43.9 - EMPHYSEMA, UNSPECIFIED (4) HTN (hypertension) Code(s): I10 - ESSENTIAL (PRIMARY) HYPERTENSION (5) Anxiety Code(s): F41.9 - ANXIETY DISORDER, UNSPECIFIED
--- NOTE | 2016-09-16 11:51 | PN ---
Progress Note, Physician History of Present Illness: PULMONARY ALERT,FEELING BETTER,LESS DYSPNEIC - Current Medication List Current Medications: Active Medications Acetaminophen (Tylenol -) 650 mg PO Q4H PRN PRN Reason: FEVER OR PAIN Last Admin: 09/13/16 09:54 Dose: 650 mg Albuterol Sulfate (Ventolin 0.083% Nebulizer Soln -) 1 amp NEB Q4H PRN PRN Reason: SHORT OF BREATH/WHEEZING Last Admin: 09/13/16 00:07 Dose: 1 amp Albuterol/Ipratropium (Duoneb -) 1 amp NEB QIDR [facility] Last Admin: 09/16/16 11:11 Dose: 1 amp Budesonide/Formoterol Fumarate (Symbicort 160/4.5mcg -) 2 puff IH BID [facility] Last Admin: 09/16/16 09:50 Dose: 2 puff Enoxaparin Sodium (Lovenox -) 40 mg SQ DAILY [facility] Last Admin: 09/16/16 09:50 Dose: 40 mg Piperacillin Sod/Tazobactam Sod (Zosyn 3.375gm Ivpb (Pre-Docked)) 50 mls @ 100 mls/hr IVPB Q8H-IV NAIDA PRN Reason: Protocol Last Admin: 09/16/16 09:48 Dose: 100 mls/hr Sodium Chloride (Normal Saline -) 1,000 mls @ 83 mls/hr IV ASDIR [facility] Last Admin: 09/15/16 15:29 Dose: 83 mls/hr Lisinopril (Prinivil) 5 mg PO DAILY [facility] Last Admin: 09/16/16 09:50 Dose: 5 mg Methylprednisolone Sodium Succinate (Solu-Medrol -) 40 mg IVPB BID [facility] Last Admin: 09/15/16 21:25 Dose: 40 mg Montelukast Sodium (Singulair -) 10 mg PO HS [facility] Last Admin: 09/15/16 21:25 Dose: 10 mg Pantoprazole Sodium (Protonix -) 40 mg PO BID [facility] Last Admin: 09/16/16 09:50 Dose: 40 mg - Objective Vital Signs: Vital Signs Temperature 97.7 F 09/16/16 10:00 Pulse Rate 66 09/16/16 10:00 Respiratory Rate 18 09/16/16 10:00 Blood Pressure 146/72 09/16/16 10:00 O2 Sat by Pulse Oximetry (%) 98 09/15/16 22:00 Constitutional: Yes: Well Nourished, Calm Eyes: Yes: WNL HENT: Yes: WNL Neck: Yes: WNL Cardiovascular: Yes: Regular Rate and Rhythm, S1, S2 Respiratory: Yes: Diminished Gastrointestinal: Yes: Normal Bowel Sounds, Soft Extremities: Yes: WNL Edema: Yes Labs: CBC, BMP 09/15/16 07:10 09/16/16 07:10 Problem List - Problems (1) Acute hypoxemic respiratory failure Code(s): J96.01 - ACUTE RESPIRATORY FAILURE WITH HYPOXIA Assessment/Plan Problem List - Problems (1) Acute exacerbation of chronic obstructive pulmonary disease Code(s): J44.1 - CHRONIC OBSTRUCTIVE PULMONARY DISEASE W (ACUTE) EXACERBATION (2) COPD (chronic obstructive pulmonary disease) Code(s): J44.9 - CHRONIC OBSTRUCTIVE PULMONARY DISEASE, UNSPECIFIED (3) Emphysema of lung Code(s): J43.9 - EMPHYSEMA, UNSPECIFIED (4) HTN (hypertension) Code(s): I10 - ESSENTIAL (PRIMARY) HYPERTENSION Assessment/Plan Acute COPD Exacerbation improving Acute hypoxemic respiratory failure Emphysema HTN - Cont IV medrol - spiriva - symbicort - inhaled bronchodilators - O2 to keep SpO2 >90% - outpt PFTs and follow up - DVT prophylaxis DR MOSLEY
[2016-09-16] MEDS: methylPREDNISolone NA SUCC 40 MG/1 ML VIAL IVPB SCH ×2 (12:07→22:42)
--- NOTE | 2016-09-16 16:16 | PN ---
Progress Note, Physician Chief Complaint: SOB/ Chest tightness/ Cough got better Periods of Hypoxia History of Present Illness: Pt is feelig better But Has SOB/Hypoxia during excertion DVT negative But still has hypoxic episodes - Current Medication List Current Medications: Active Medications Acetaminophen (Tylenol -) 650 mg PO Q4H PRN PRN Reason: FEVER OR PAIN Last Admin: 09/13/16 09:54 Dose: 650 mg Albuterol Sulfate (Ventolin 0.083% Nebulizer Soln -) 1 amp NEB Q4H PRN PRN Reason: SHORT OF BREATH/WHEEZING Last Admin: 09/13/16 00:07 Dose: 1 amp Albuterol/Ipratropium (Duoneb -) 1 amp NEB QIDR [facility] Last Admin: 09/16/16 11:11 Dose: 1 amp Budesonide/Formoterol Fumarate (Symbicort 160/4.5mcg -) 2 puff IH BID [facility] Last Admin: 09/16/16 09:50 Dose: 2 puff Enoxaparin Sodium (Lovenox -) 40 mg SQ DAILY [facility] Last Admin: 09/16/16 09:50 Dose: 40 mg Sodium Chloride (Normal Saline -) 1,000 mls @ 83 mls/hr IV ASDIR [facility] Last Admin: 09/16/16 15:22 Dose: 83 mls/hr Lisinopril (Prinivil) 5 mg PO DAILY [facility] Last Admin: 09/16/16 09:50 Dose: 5 mg Methylprednisolone Sodium Succinate (Solu-Medrol -) 40 mg IVPB BID [facility] Last Admin: 09/16/16 12:07 Dose: 40 mg Montelukast Sodium (Singulair -) 10 mg PO HS [facility] Last Admin: 09/15/16 21:25 Dose: 10 mg Pantoprazole Sodium (Protonix -) 40 mg PO BID [facility] Last Admin: 09/16/16 09:50 Dose: 40 mg - Objective Vital Signs: Vital Signs Temperature 97.7 F 09/16/16 10:00 Pulse Rate 63 09/16/16 13:26 Respiratory Rate 18 09/16/16 10:00 Blood Pressure 146/72 09/16/16 10:00 O2 Sat by Pulse Oximetry (%) 93 L 09/16/16 13:26 Constitutional: Yes: Other (Pt is less anxious) Eyes: Yes: Conjunctiva Clear HENT: Yes: Atraumatic, Normocephalic Neck: Yes: Supple, Trachea Midline Cardiovascular: Yes: Regular Rate and Rhythm, S1, S2 Respiratory: Yes: Regular, CTA Bilaterally Gastrointestinal: Yes: Normal Bowel Sounds, Soft Edema: No Peripheral Pulses WNL: Yes Labs: CBC, BMP 09/15/16 07:10 09/16/16 07:10 <JeannakevinGinger [email or web address] - Last Filed: 09/16/16 16:50> History of Present Illness: stable no issues says he feels much better - Current Medication List Current Medications: Active Medications Acetaminophen (Tylenol -) 650 mg PO Q4H PRN PRN Reason: FEVER OR PAIN Last Admin: 09/13/16 09:54 Dose: 650 mg Albuterol Sulfate (Ventolin 0.083% Nebulizer Soln -) 1 amp NEB Q4H PRN PRN Reason: SHORT OF BREATH/WHEEZING Last Admin: 09/13/16 00:07 Dose: 1 amp Albuterol/Ipratropium (Duoneb -) 1 amp NEB QIDR [facility] Last Admin: 09/16/16 11:11 Dose: 1 amp Budesonide/Formoterol Fumarate (Symbicort 160/4.5mcg -) 2 puff IH BID [facility] Last Admin: 09/16/16 09:50 Dose: 2 puff Enoxaparin Sodium (Lovenox -) 40 mg SQ DAILY [facility] Last Admin: 09/16/16 09:50 Dose: 40 mg Piperacillin Sod/Tazobactam Sod (Zosyn 3.375gm Ivpb (Pre-Docked)) 50 mls @ 100 mls/hr IVPB Q8H-IV NADIA PRN Reason: Protocol Last Admin: 09/16/16 09:48 Dose: 100 mls/hr Sodium Chloride (Normal Saline -) 1,000 mls @ 83 mls/hr IV ASDIR [facility] Last Admin: 09/16/16 15:22 Dose: 83 mls/hr Lisinopril (Prinivil) 5 mg PO DAILY [facility] Last Admin: 09/16/16 09:50 Dose: 5 mg Methylprednisolone Sodium Succinate (Solu-Medrol -) 40 mg IVPB BID [facility] Last Admin: 09/16/16 12:07 Dose: 40 mg Montelukast Sodium (Singulair -) 10 mg PO HS [facility] Last Admin: 09/15/16 21:25 Dose: 10 mg Pantoprazole Sodium (Protonix -) 40 mg PO BID [facility] Last Admin: 09/16/16 09:50 Dose: 40 mg - Objective Vital Signs: Vital Signs Temperature 97.7 F 09/16/16 10:00 Pulse Rate 63 09/16/16 13:26 Respiratory Rate 18 09/16/16 10:00 Blood Pressure 146/72 09/16/16 10:00 O2 Sat by Pulse Oximetry (%) 93 L 09/16/16 13:26 Constitutional: Yes: No Distress, Calm Cardiovascular: Yes: Regular Rate and Rhythm Respiratory: Yes: Regular, CTA Bilaterally, On Nasal O2 Gastrointestinal: Yes: Normal Bowel Sounds, Soft Musculoskeletal: Yes: WNL Extremities: Yes: WNL Neurological: Yes: Alert, Oriented Psychiatric: Yes: Alert Labs: CBC, BMP 09/15/16 07:10 09/16/16 07:10 <Santosh Cedeño - Last Filed: 09/17/16 12:30> Problem List - Problems (1) Acute exacerbation of chronic obstructive pulmonary disease Code(s): J44.1 - CHRONIC OBSTRUCTIVE PULMONARY DISEASE W (ACUTE) EXACERBATION (2) Acute hypoxemic respiratory failure Code(s): J96.01 - ACUTE RESPIRATORY FAILURE WITH HYPOXIA (3) Emphysema of lung Code(s): J43.9 - EMPHYSEMA, UNSPECIFIED (4) HTN (hypertension) Code(s): I10 - ESSENTIAL (PRIMARY) HYPERTENSION (5) Anxiety Code(s): F41.9 - ANXIETY DISORDER, UNSPECIFIED <Ofe Cassidy - Last Filed: 09/16/16 16:50> Assessment/Plan pneumonia bronchitis cough ac copd exacerbation plan abx stopped physio rest as per primary continue incentive camacho <Santosh Cedeño - Last Filed: 09/17/16 12:30>
[2016-09-16 19:23] LABS: ARTERIAL BLD GAS O2 SATURATION 94.4 % (90-98.9); ARTERIAL BLOOD GAS HCO3 25.6 meq/L (22-26); ARTERIAL BLOOD GAS PO2 70.7 mmHg (68-100); ARTERIAL BLOOD GAS pH 7.44 (7.35-7.45)
[2016-09-16 19:24] LABS: ALLENS TEST POSITIVE; ART PUNCT SITE RIGHT RADIAL; PT. ON O2? NO
[2016-09-16] MEDS ORDERED: PT OWN MED DRAWER 7, Y5N ONE (22:35)
[2016-09-16] MEDS: MONTELUKAST NA 10 MG TABLET PO SCH (22:42)
[2016-09-17] MEDS: ALBUTEROL SO4 2.5/IPRATROPIUM 0.5 INH SOL 3 ML VIAL.NEB. NEB SCH ×3 (06:45→17:09)
[2016-09-17] MEDS ORDERED: PT OWN MED DRAWER 7, Y5N ONE (09:47)
[2016-09-17] MEDS: methylPREDNISolone NA SUCC 40 MG/1 ML VIAL IVPB SCH ×2 (09:56→21:54)
[2016-09-17] MEDS: LISINOPRIL 5 MG TABLET (FP) PO SCH (09:56)
[2016-09-17] MEDS: ENOXAPARIN NA (PORCINE) 40 MG/0.4 ML DISP.SYRIN SQ SCH (09:57)
[2016-09-17] MEDS: PANTOPRAZOLE 40 MG TABLET (FP) PO SCH ×2 (09:57→21:54)
[2016-09-17] MEDS: BUDESONIDE/FORMETEROL FUMARATE 160/4.5 mcg INHALER IH SCH ×2 (09:57→21:54)
--- NOTE | 2016-09-17 11:22 | PN ---
Progress Note (short form) - Note Progress Note: Renal Follow up Pt seen and examined at the bedside feels much better no sob, chest pain today s/p CTA of the Lung yesterday Vital Signs Temperature 98.1 F 09/17/16 09:00 Pulse Rate 76 09/17/16 09:00 Respiratory Rate 18 09/17/16 09:00 Blood Pressure 135/66 09/17/16 09:00 O2 Sat by Pulse Oximetry (%) 97 09/16/16 21:00 Intake & Output 09/14/16 09/15/16 09/16/16 09/17/16 23:59 23:59 23:59 23:59 Intake Total 2892 4026 3720 913 Output Total 400 1000 1800 500 Balance 2492 3026 1920 413 Gen: NAD, awake and alert on NC CVS: RRR, No M/R Lungs: CTA, no rales or wheeze Abd: Soft NT/ND Ext no edema, clubbing or cyanosis CBC, BMP 09/15/16 07:10 09/16/16 07:10 Laboratory Tests 09/16/16 07:10 Calcium 8.7 Current Medications Acetaminophen (Tylenol -) 650 mg PO Q4H PRN PRN Reason: FEVER OR PAIN Last Admin: 09/13/16 09:54 Dose: 650 mg Albuterol Sulfate (Ventolin 0.083% Nebulizer Soln -) 1 amp NEB Q4H PRN PRN Reason: SHORT OF BREATH/WHEEZING Last Admin: 09/13/16 00:07 Dose: 1 amp Albuterol/Ipratropium (Duoneb -) 1 amp NEB QIDR [facility] Last Admin: 09/17/16 11:09 Dose: 1 amp Budesonide/Formoterol Fumarate (Symbicort 160/4.5mcg -) 2 puff IH BID [facility] Last Admin: 09/17/16 09:57 Dose: 2 puff Enoxaparin Sodium (Lovenox -) 40 mg SQ DAILY [facility] Last Admin: 09/17/16 09:57 Dose: 40 mg Sodium Chloride (Normal Saline -) 1,000 mls @ 83 mls/hr IV ASDIR [facility] Last Admin: 09/16/16 22:42 Dose: 83 mls/hr Lisinopril (Prinivil) 5 mg PO DAILY [facility] Last Admin: 09/17/16 09:56 Dose: 5 mg Methylprednisolone Sodium Succinate (Solu-Medrol -) 40 mg IVPB BID [facility] Last Admin: 09/17/16 09:56 Dose: 40 mg Montelukast Sodium (Singulair -) 10 mg PO HS [facility] Last Admin: 09/16/16 22:42 Dose: 10 mg Pantoprazole Sodium (Protonix -) 40 mg PO BID [facility] Last Admin: 09/17/16 09:57 Dose: 40 mg A/P 86 year old Gentleman with PMhx of COPD, Former Smoker, Hypertension who presented with SOB despite outpatient Abx and planed for CTA of the Lungs with Cr of 1.3. #Contrast Nephropathy risk stratifcation and prophylaxis s/p CTA of the Lung yesterday Trend BUN/Cr to monitor for SHELDON continue isotonic saline for now Trend urine output #SOB/Hypoxia/COPD continue Steroids/Nebs/O2 Pulmonary follow up Possible CTA #Hypertension Continue Lisinopril Zack Saleem DO
--- NOTE | 2016-09-17 12:13 | PN ---
Progress Note, Physician History of Present Illness: pulmonary alert,oob-chair,comfortable,-resp distress - Current Medication List Current Medications: Active Medications Acetaminophen (Tylenol -) 650 mg PO Q4H PRN PRN Reason: FEVER OR PAIN Last Admin: 09/13/16 09:54 Dose: 650 mg Albuterol Sulfate (Ventolin 0.083% Nebulizer Soln -) 1 amp NEB Q4H PRN PRN Reason: SHORT OF BREATH/WHEEZING Last Admin: 09/13/16 00:07 Dose: 1 amp Albuterol/Ipratropium (Duoneb -) 1 amp NEB QIDR [facility] Last Admin: 09/17/16 11:09 Dose: 1 amp Budesonide/Formoterol Fumarate (Symbicort 160/4.5mcg -) 2 puff IH BID [facility] Last Admin: 09/17/16 09:57 Dose: 2 puff Enoxaparin Sodium (Lovenox -) 40 mg SQ DAILY [facility] Last Admin: 09/17/16 09:57 Dose: 40 mg Sodium Chloride (Normal Saline -) 1,000 mls @ 83 mls/hr IV ASDIR [facility] Last Admin: 09/16/16 22:42 Dose: 83 mls/hr Lisinopril (Prinivil) 5 mg PO DAILY [facility] Last Admin: 09/17/16 09:56 Dose: 5 mg Methylprednisolone Sodium Succinate (Solu-Medrol -) 40 mg IVPB BID [facility] Last Admin: 09/17/16 09:56 Dose: 40 mg Montelukast Sodium (Singulair -) 10 mg PO HS [facility] Last Admin: 09/16/16 22:42 Dose: 10 mg Pantoprazole Sodium (Protonix -) 40 mg PO BID [facility] Last Admin: 09/17/16 09:57 Dose: 40 mg - Objective Vital Signs: Vital Signs Temperature 98.1 F 09/17/16 09:00 Pulse Rate 76 09/17/16 09:00 Respiratory Rate 18 09/17/16 09:00 Blood Pressure 135/66 09/17/16 09:00 O2 Sat by Pulse Oximetry (%) 97 09/16/16 21:00 Constitutional: Yes: Well Nourished, Calm Eyes: Yes: WNL HENT: Yes: WNL Neck: Yes: WNL Cardiovascular: Yes: Regular Rate and Rhythm, S1, S2 Respiratory: Yes: Wheezes (few wheezes) Gastrointestinal: Yes: Normal Bowel Sounds, Soft Extremities: Yes: WNL Edema: Yes Labs: CBC, BMP 09/15/16 07:10 09/16/16 07:10 Problem List - Problems (1) Acute hypoxemic respiratory failure Code(s): J96.01 - ACUTE RESPIRATORY FAILURE WITH HYPOXIA Assessment/Plan Problem List - Problems (1) Acute exacerbation of chronic obstructive pulmonary disease Code(s): J44.1 - CHRONIC OBSTRUCTIVE PULMONARY DISEASE W (ACUTE) EXACERBATION (2) COPD (chronic obstructive pulmonary disease) Code(s): J44.9 - CHRONIC OBSTRUCTIVE PULMONARY DISEASE, UNSPECIFIED (3) Emphysema of lung Code(s): J43.9 - EMPHYSEMA, UNSPECIFIED (4) HTN (hypertension) Code(s): I10 - ESSENTIAL (PRIMARY) HYPERTENSION Assessment/Plan Acute COPD Exacerbation improving Acute hypoxemic respiratory failure Emphysema HTN - medrol taper - spiriva - symbicort - inhaled bronchodilators - O2 to keep SpO2 >90% - outpt PFTs and follow up - DVT prophylaxis DR MOSLEY
[2016-09-17] MEDS: SODIUM CHLORIDE 1,000 ML IV SCH (14:11)
--- NOTE | 2016-09-17 14:24 | PN ---
Progress Note, Physician History of Present Illness: stable no issues says he feels much better stable off of abx - Current Medication List Current Medications: Active Medications Acetaminophen (Tylenol -) 650 mg PO Q4H PRN PRN Reason: FEVER OR PAIN Last Admin: 09/13/16 09:54 Dose: 650 mg Albuterol Sulfate (Ventolin 0.083% Nebulizer Soln -) 1 amp NEB Q4H PRN PRN Reason: SHORT OF BREATH/WHEEZING Last Admin: 09/13/16 00:07 Dose: 1 amp Albuterol/Ipratropium (Duoneb -) 1 amp NEB QIDR [facility] Last Admin: 09/17/16 11:09 Dose: 1 amp Budesonide/Formoterol Fumarate (Symbicort 160/4.5mcg -) 2 puff IH BID [facility] Last Admin: 09/17/16 09:57 Dose: 2 puff Enoxaparin Sodium (Lovenox -) 40 mg SQ DAILY [facility] Last Admin: 09/17/16 09:57 Dose: 40 mg Sodium Chloride (Normal Saline -) 1,000 mls @ 83 mls/hr IV ASDIR [facility] Last Admin: 09/17/16 14:11 Dose: 83 mls/hr Lisinopril (Prinivil) 5 mg PO DAILY [facility] Last Admin: 09/17/16 09:56 Dose: 5 mg Methylprednisolone Sodium Succinate (Solu-Medrol -) 30 mg IVPB BID [facility] Montelukast Sodium (Singulair -) 10 mg PO HS [facility] Last Admin: 09/16/16 22:42 Dose: 10 mg Pantoprazole Sodium (Protonix -) 40 mg PO BID [facility] Last Admin: 09/17/16 09:57 Dose: 40 mg - Objective Vital Signs: Vital Signs Temperature 98.1 F 09/17/16 09:00 Pulse Rate 76 09/17/16 09:00 Respiratory Rate 18 09/17/16 10:00 Blood Pressure 135/66 09/17/16 09:00 O2 Sat by Pulse Oximetry (%) 97 09/17/16 10:00 Constitutional: Yes: No Distress, Calm Cardiovascular: Yes: Regular Rate and Rhythm Respiratory: Yes: Regular, CTA Bilaterally Gastrointestinal: Yes: Normal Bowel Sounds, Soft Musculoskeletal: Yes: WNL Extremities: Yes: WNL Neurological: Yes: Alert, Oriented Psychiatric: Yes: Alert, Oriented Labs: CBC, BMP 09/15/16 07:10 09/16/16 07:10 Assessment/Plan pneumonia bronchitis cough ac copd exacerbation plan stable off of abx physio rest as per primary continue incentive camacho
--- NOTE | 2016-09-17 15:07 | PN ---
Progress Note, Physician Chief Complaint: SOB/ Chest tightness/ Cough got better Periods of Hypoxia Pt had improved well Pt has blister on Lt leg History of Present Illness: Pt feeling much better BP better controlled Lt leg blister seen by ID also - Current Medication List Current Medications: Active Medications Acetaminophen (Tylenol -) 650 mg PO Q4H PRN PRN Reason: FEVER OR PAIN Last Admin: 09/13/16 09:54 Dose: 650 mg Albuterol Sulfate (Ventolin 0.083% Nebulizer Soln -) 1 amp NEB Q4H PRN PRN Reason: SHORT OF BREATH/WHEEZING Last Admin: 09/13/16 00:07 Dose: 1 amp Albuterol/Ipratropium (Duoneb -) 1 amp NEB QIDR [facility] Last Admin: 09/17/16 11:09 Dose: 1 amp Budesonide/Formoterol Fumarate (Symbicort 160/4.5mcg -) 2 puff IH BID [facility] Last Admin: 09/17/16 09:57 Dose: 2 puff Enoxaparin Sodium (Lovenox -) 40 mg SQ DAILY [facility] Last Admin: 09/17/16 09:57 Dose: 40 mg Sodium Chloride (Normal Saline -) 1,000 mls @ 83 mls/hr IV ASDIR [facility] Last Admin: 09/17/16 14:11 Dose: 83 mls/hr Lisinopril (Prinivil) 5 mg PO DAILY [facility] Last Admin: 09/17/16 09:56 Dose: 5 mg Methylprednisolone Sodium Succinate (Solu-Medrol -) 30 mg IVPB BID [facility] Montelukast Sodium (Singulair -) 10 mg PO HS [facility] Last Admin: 09/16/16 22:42 Dose: 10 mg Pantoprazole Sodium (Protonix -) 40 mg PO BID [facility] Last Admin: 09/17/16 09:57 Dose: 40 mg - Objective Vital Signs: Vital Signs Temperature 98.1 F 09/17/16 09:00 Pulse Rate 76 09/17/16 09:00 Respiratory Rate 18 09/17/16 10:00 Blood Pressure 135/66 09/17/16 09:00 O2 Sat by Pulse Oximetry (%) 97 09/17/16 10:00 Constitutional: Yes: Well Nourished, No Distress Eyes: Yes: Conjunctiva Clear, EOM Intact HENT: Yes: Atraumatic, Normocephalic Neck: Yes: Supple, Trachea Midline Cardiovascular: Yes: Regular Rate and Rhythm, S1, S2 Respiratory: Yes: Regular, CTA Bilaterally Gastrointestinal: Yes: Normal Bowel Sounds, Soft Edema: No Peripheral Pulses WNL: Yes Labs: CBC, BMP 09/15/16 07:10 09/16/16 07:10 Problem List - Problems (1) Acute exacerbation of chronic obstructive pulmonary disease Code(s): J44.1 - CHRONIC OBSTRUCTIVE PULMONARY DISEASE W (ACUTE) EXACERBATION (2) Acute hypoxemic respiratory failure Code(s): J96.01 - ACUTE RESPIRATORY FAILURE WITH HYPOXIA (3) Emphysema of lung Code(s): J43.9 - EMPHYSEMA, UNSPECIFIED (4) HTN (hypertension) Code(s): I10 - ESSENTIAL (PRIMARY) HYPERTENSION (5) Anxiety Code(s): F41.9 - ANXIETY DISORDER, UNSPECIFIED Assessment/Plan (1) Acute exacerbation of chronic obstructive pulmonary disease Code(s): J44.1 - CHRONIC OBSTRUCTIVE PULMONARY DISEASE W (ACUTE) EXACERBATION (2) Acute hypoxemic respiratory failure Code(s): J96.01 - ACUTE RESPIRATORY FAILURE WITH HYPOXIA (3) Emphysema of lung Code(s): J43.9 - EMPHYSEMA, UNSPECIFIED (4) HTN (hypertension) Code(s): I10 - ESSENTIAL (PRIMARY) HYPERTENSION (5) Anxiety Code(s): F41.9 - ANXIETY DISORDER, UNSPECIFIED
[2016-09-17 16:24] LABS: MCH 31.9 pg (25.7-33.7); MCHC 33.1 g/dl (32.0-35.9); MEAN CELL VOLUME 96.7 fl (80-96); PLATELET COUNT 277 K/MM3 (134-434); RDW 13.9 % (11.9-15.9); WHITE BLOOD COUNT 13.8 K/mm3 (4.0-10.0)
[2016-09-17 17:09] LABS: CALCIUM 8.7 mg/dL (8.5-10.1); COCKROFT - GAULT 49.39; CREATININE 1.1 mg/dL (0.7-1.3)
[2016-09-17 19:56] LABS: METAMYELOCYTE 1 % (0-2)
[2016-09-17] MEDS: MONTELUKAST NA 10 MG TABLET PO SCH (21:54)
[2016-09-18 08:32] LABS: CALCIUM 8.5 mg/dL (8.5-10.1); COCKROFT - GAULT 49.39; CREATININE 1.1 mg/dL (0.7-1.3); MAGNESIUM 2.3 mg/dL (1.8-2.4); PHOSPHOROUS 3.6 mg/dL (2.5-4.9)
[2016-09-18] MEDS ORDERED: METOPROLOL TARTRATE 25 MG TABLET (FP) PO ONE (09:00)
[2016-09-18] MEDS: LISINOPRIL 5 MG TABLET (FP) PO SCH ×3 (09:06→21:54)
[2016-09-18] MEDS ORDERED: PT OWN MED DRAWER 7, Y5N ONE ×2 (09:08→20:20)
[2016-09-18] MEDS: methylPREDNISolone NA SUCC 40 MG/1 ML VIAL IVPB SCH (09:11)
[2016-09-18] MEDS: ENOXAPARIN NA (PORCINE) 40 MG/0.4 ML DISP.SYRIN SQ SCH (09:12)
[2016-09-18] MEDS: PANTOPRAZOLE 40 MG TABLET (FP) PO SCH ×2 (09:12→21:54)
[2016-09-18] MEDS: BUDESONIDE/FORMETEROL FUMARATE 160/4.5 mcg INHALER IH SCH ×2 (09:12→21:55)
[2016-09-18] MEDS ORDERED: amLODIPine BESYLATE 5 MG TABLET (FP) PO SCH (13:30)
--- NOTE | 2016-09-18 13:31 | PN ---
Progress Note (short form) - Note Progress Note: Renal Follow up Pt seen and examined at the bedside no acute complaints Vital Signs Temperature 98.2 F 09/18/16 08:30 Pulse Rate 76 09/18/16 12:20 Respiratory Rate 18 09/18/16 08:30 Blood Pressure 188/92 09/18/16 12:20 O2 Sat by Pulse Oximetry (%) 96 09/17/16 22:00 Intake & Output 09/15/16 09/16/16 09/17/16 09/18/16 23:59 23:59 23:59 23:59 Intake Total 4026 3720 2712 930 Output Total 1000 1800 500 Balance 3026 1920 2212 930 Gen: NAD, awake and alert on NC CVS: RRR, No M/R Lungs: CTA, no rales or wheeze Abd: Soft NT/ND Ext no edema, clubbing or cyanosis CBC, BMP 09/17/16 15:10 09/18/16 07:00 Laboratory Tests 09/18/16 07:00 Calcium 8.5 Phosphorus 3.6 Magnesium 2.3 Current Medications Acetaminophen (Tylenol -) 650 mg PO Q4H PRN PRN Reason: FEVER OR PAIN Last Admin: 09/13/16 09:54 Dose: 650 mg Amlodipine Besylate (Norvasc -) 5 mg PO DAILY [facility] Budesonide/Formoterol Fumarate (Symbicort 160/4.5mcg -) 2 puff IH BID [facility] Last Admin: 09/18/16 09:12 Dose: 2 puff Enoxaparin Sodium (Lovenox -) 40 mg SQ DAILY [facility] Last Admin: 09/18/16 09:12 Dose: 40 mg Lisinopril (Prinivil) 5 mg PO DAILY [facility] Last Admin: 09/18/16 09:06 Dose: 5 mg Methylprednisolone Sodium Succinate (Solu-Medrol -) 30 mg IVPB BID [facility] Last Admin: 09/18/16 09:11 Dose: 30 mg Montelukast Sodium (Singulair -) 10 mg PO HS [facility] Last Admin: 09/17/16 21:54 Dose: 10 mg Pantoprazole Sodium (Protonix -) 40 mg PO BID [facility] Last Admin: 09/18/16 09:12 Dose: 40 mg A/P 86 year old Gentleman with PMhx of COPD, Former Smoker, Hypertension who presented with SOB despite outpatient Abx and planed for CTA of the Lungs with Cr of 1.3. #CKD with contrast exposure Renal function stable after contrast exposure no need for further IVF to have repeat labs with PMD as outpatient #SOB/Hypoxia/COPD Management as per Pulmonary #Hypertension Continue Lisinopril Zack Saleem DO
[2016-09-18] MEDS ORDERED: amLODIPine BESYLATE 5 MG TABLET (FP) PO ONE (14:00)
--- NOTE | 2016-09-18 14:51 | PN ---
Progress Note, Physician History of Present Illness: pulmonary alert,oob-chair,-c/o sob,-cp - Current Medication List Current Medications: Active Medications Acetaminophen (Tylenol -) 650 mg PO Q4H PRN PRN Reason: FEVER OR PAIN Last Admin: 09/13/16 09:54 Dose: 650 mg Amlodipine Besylate (Norvasc -) 10 mg PO DAILY [facility] Budesonide/Formoterol Fumarate (Symbicort 160/4.5mcg -) 2 puff IH BID [facility] Last Admin: 09/18/16 09:12 Dose: 2 puff Enoxaparin Sodium (Lovenox -) 40 mg SQ DAILY [facility] Last Admin: 09/18/16 09:12 Dose: 40 mg Lisinopril (Prinivil) 5 mg PO DAILY [facility] Last Admin: 09/18/16 09:06 Dose: 5 mg Methylprednisolone Sodium Succinate (Solu-Medrol -) 30 mg IVPB BID [facility] Last Admin: 09/18/16 09:11 Dose: 30 mg Montelukast Sodium (Singulair -) 10 mg PO HS [facility] Last Admin: 09/17/16 21:54 Dose: 10 mg Pantoprazole Sodium (Protonix -) 40 mg PO BID [facility] Last Admin: 09/18/16 09:12 Dose: 40 mg - Objective Vital Signs: Vital Signs Temperature 98.2 F 09/18/16 08:30 Pulse Rate 76 09/18/16 12:20 Respiratory Rate 18 09/18/16 08:30 Blood Pressure 188/92 09/18/16 12:20 O2 Sat by Pulse Oximetry (%) 96 09/17/16 22:00 Constitutional: Yes: Well Nourished, Calm Eyes: Yes: WNL HENT: Yes: WNL Neck: Yes: WNL Cardiovascular: Yes: Regular Rate and Rhythm, S1 Respiratory: Yes: CTA Bilaterally Gastrointestinal: Yes: Normal Bowel Sounds, Soft Extremities: Yes: WNL Edema: Yes Edema: LLE: 2+, RLE: 2+ Labs: 09/18/16 07:00 Problem List - Problems (1) Acute hypoxemic respiratory failure Code(s): J96.01 - ACUTE RESPIRATORY FAILURE WITH HYPOXIA Assessment/Plan Problem List - Problems (1) Acute exacerbation of chronic obstructive pulmonary disease Code(s): J44.1 - CHRONIC OBSTRUCTIVE PULMONARY DISEASE W (ACUTE) EXACERBATION (2) COPD (chronic obstructive pulmonary disease) Code(s): J44.9 - CHRONIC OBSTRUCTIVE PULMONARY DISEASE, UNSPECIFIED (3) Emphysema of lung Code(s): J43.9 - EMPHYSEMA, UNSPECIFIED (4) HTN (hypertension) Code(s): I10 - ESSENTIAL (PRIMARY) HYPERTENSION Assessment/Plan Acute COPD Exacerbation improving Acute hypoxemic respiratory failure Emphysema HTN - prednisone - symbicort - inhaled bronchodilators - O2 to keep SpO2 >90% - outpt PFTs and follow up - DVT prophylaxis - bp meds DR MOSLEY
--- NOTE | 2016-09-18 15:32 | PN ---
Progress Note, Physician History of Present Illness: patient stable feels much better blood pressure running high - Current Medication List Current Medications: Active Medications Acetaminophen (Tylenol -) 650 mg PO Q4H PRN PRN Reason: FEVER OR PAIN Last Admin: 09/13/16 09:54 Dose: 650 mg Amlodipine Besylate (Norvasc -) 10 mg PO DAILY [facility] Budesonide/Formoterol Fumarate (Symbicort 160/4.5mcg -) 2 puff IH BID [facility] Last Admin: 09/18/16 09:12 Dose: 2 puff Enoxaparin Sodium (Lovenox -) 40 mg SQ DAILY [facility] Last Admin: 09/18/16 09:12 Dose: 40 mg Lisinopril (Prinivil) 5 mg PO DAILY [facility] Last Admin: 09/18/16 09:06 Dose: 5 mg Montelukast Sodium (Singulair -) 10 mg PO HS [facility] Last Admin: 09/17/16 21:54 Dose: 10 mg Pantoprazole Sodium (Protonix -) 40 mg PO BID [facility] Last Admin: 09/18/16 09:12 Dose: 40 mg Prednisone (Deltasone -) 30 mg PO DAILY [facility] - Objective Vital Signs: Vital Signs Temperature 98.2 F 09/18/16 08:30 Pulse Rate 76 09/18/16 12:20 Respiratory Rate 18 09/18/16 08:30 Blood Pressure 188/92 09/18/16 12:20 O2 Sat by Pulse Oximetry (%) 96 09/17/16 22:00 Constitutional: Yes: No Distress, Calm Cardiovascular: Yes: Regular Rate and Rhythm Respiratory: Yes: Regular, CTA Bilaterally Gastrointestinal: Yes: Normal Bowel Sounds, Soft Musculoskeletal: Yes: WNL Extremities: Yes: WNL Neurological: Yes: Alert, Oriented Psychiatric: Yes: Alert Labs: CBC, BMP 09/17/16 15:10 09/18/16 07:00 Assessment/Plan pneumonia bronchitis cough ac copd exacerbation plan continue current mgmt rest as per primary
--- NOTE | 2016-09-18 21:03 | PN ---
Progress Note, Physician Chief Complaint: SOB/ Chest tightness/ Cough got better Periods of Hypoxia Pt had improved well Pt has blister on Lt leg History of Present Illness: Pt feeling much better BP better controlled Lt leg blister seen by ID also - Current Medication List Current Medications: Active Medications Acetaminophen (Tylenol -) 650 mg PO Q4H PRN PRN Reason: FEVER OR PAIN Last Admin: 09/13/16 09:54 Dose: 650 mg Amlodipine Besylate (Norvasc -) 10 mg PO DAILY [facility] Budesonide/Formoterol Fumarate (Symbicort 160/4.5mcg -) 2 puff IH BID [facility] Last Admin: 09/18/16 09:12 Dose: 2 puff Enoxaparin Sodium (Lovenox -) 40 mg SQ DAILY [facility] Last Admin: 09/18/16 09:12 Dose: 40 mg Lisinopril (Prinivil) 5 mg PO DAILY [facility] Last Admin: 09/18/16 09:06 Dose: 5 mg Lisinopril (Prinivil) 5 mg PO BID [facility] Last Admin: 09/18/16 18:27 Dose: 5 mg Montelukast Sodium (Singulair -) [address] [facility] Last Admin: 09/17/16 21:54 Dose: 10 mg Pantoprazole Sodium (Protonix -) 40 mg PO BID [facility] Last Admin: 09/18/16 09:12 Dose: 40 mg Prednisone (Deltasone -) 30 mg PO DAILY [facility] - Objective Vital Signs: Vital Signs Temperature 98.7 F 09/18/16 14:00 Pulse Rate 86 09/18/16 18:27 Respiratory Rate 18 09/18/16 14:00 Blood Pressure 168/86 09/18/16 18:27 O2 Sat by Pulse Oximetry (%) 92 L 09/18/16 10:00 Constitutional: Yes: Well Nourished, No Distress Eyes: Yes: Conjunctiva Clear, EOM Intact HENT: Yes: Atraumatic, Normocephalic Neck: Yes: Supple, Trachea Midline Cardiovascular: Yes: Regular Rate and Rhythm, Tachycardia, S1 Respiratory: Yes: Regular, CTA Bilaterally Gastrointestinal: Yes: Normal Bowel Sounds, Soft Labs: CBC, BMP 09/17/16 15:10 09/18/16 07:00 Problem List - Problems (1) Acute exacerbation of chronic obstructive pulmonary disease Code(s): J44.1 - CHRONIC OBSTRUCTIVE PULMONARY DISEASE W (ACUTE) EXACERBATION (2) Acute hypoxemic respiratory failure Code(s): J96.01 - ACUTE RESPIRATORY FAILURE WITH HYPOXIA (3) Emphysema of lung Code(s): J43.9 - EMPHYSEMA, UNSPECIFIED (4) HTN (hypertension) Code(s): I10 - ESSENTIAL (PRIMARY) HYPERTENSION (5) Anxiety Code(s): F41.9 - ANXIETY DISORDER, UNSPECIFIED Assessment/Plan (1) Acute exacerbation of chronic obstructive pulmonary disease Code(s): J44.1 - CHRONIC OBSTRUCTIVE PULMONARY DISEASE W (ACUTE) EXACERBATION (2) Acute hypoxemic respiratory failure Code(s): J96.01 - ACUTE RESPIRATORY FAILURE WITH HYPOXIA (3) Emphysema of lung Code(s): J43.9 - EMPHYSEMA, UNSPECIFIED (4) HTN (hypertension) Code(s): I10 - ESSENTIAL (PRIMARY) HYPERTENSION (5) Anxiety Code(s): F41.9 - ANXIETY DISORDER, UNSPECIFIED
--- NOTE | 2016-09-18 21:04 | DS ---
Physical Examination Vital Signs: Vital Signs Temperature 98.7 F 09/18/16 14:00 Pulse Rate 86 09/18/16 18:27 Respiratory Rate 18 09/18/16 14:00 Blood Pressure 168/86 09/18/16 18:27 O2 Sat by Pulse Oximetry (%) 92 L 09/18/16 10:00 Constitutional: Yes: No Distress Eyes: Yes: Conjunctiva Clear HENT: Yes: Atraumatic, Normocephalic Neck: Yes: Supple, Trachea Midline Cardiovascular: Yes: Regular Rate and Rhythm, S1, S2 Respiratory: Yes: Regular, CTA Bilaterally Gastrointestinal: Yes: Normal Bowel Sounds, Soft Extremities: Yes: Other (Lt leg Blister, Advised not wear the shoes) Labs: CBC, BMP 09/17/16 15:10 09/18/16 07:00 Discharge Summary Reason For Visit: ACUTE BRONCHITIS WITH COPD/ Bonchiectasis/ Current Active Problems Acute exacerbation of chronic obstructive pulmonary disease (Acute) Acute hypoxemic respiratory failure (Acute) Anxiety (Acute) COPD (chronic obstructive pulmonary disease) (Acute) Emphysema of lung (Acute) HTN (hypertension) (Acute) Condition: Fair - Instructions Referrals: Paul Vasquez MD [Primary Care Provider] - 1 Week (To See Dr Segundo Cassidy next afternoon 3 PM) Disposition: HOME - Home Medications Comprehensive Discharge Medication List: Ambulatory Orders Amlodipine Besylate (Norvasc -) 10 mg PO DAILY [facility] Last Admin: 09/19/16 10:12 Dose: 10 mg Budesonide/Formoterol Fumarate (Symbicort 160/4.5mcg -) 2 puff IH BID [facility] Last Admin: 09/19/16 10:13 Dose: 2 puff Enoxaparin Sodium (Lovenox -) 40 mg SQ DAILY [facility] Last Admin: 09/19/16 10:12 Dose: 40 mg Lisinopril (Prinivil) 5 mg PO BID [facility] Last Admin: 09/19/16 10:12 Dose: 5 mg Montelukast Sodium (Singulair -) 10 mg PO HS [facility] Last Admin: 09/18/16 21:55 Dose: 10 mg omeprazole 20 mg PO daily Prednisone (Deltasone -) 10 Mg PO BID 7days later 10 Po daily
[2016-09-18] MEDS: MONTELUKAST NA 10 MG TABLET PO SCH (21:55)
[2016-09-19] MEDS ORDERED: amLODIPine BESYLATE 10 MG TABLET (FP) PO SCH (10:00)
[2016-09-19] MEDS ORDERED: predniSONE 10 MG TABLET (UD) PO SCH (10:00)
[2016-09-19] MEDS: PANTOPRAZOLE 40 MG TABLET (FP) PO SCH (10:11)
[2016-09-19] MEDS: LISINOPRIL 5 MG TABLET (FP) PO SCH (10:12)
[2016-09-19] MEDS: ENOXAPARIN NA (PORCINE) 40 MG/0.4 ML DISP.SYRIN SQ SCH (10:12)
[2016-09-19] MEDS: BUDESONIDE/FORMETEROL FUMARATE 160/4.5 mcg INHALER IH SCH (10:13)
--- NOTE | 2016-09-19 11:03 | PN ---
Progress Note (short form) - Note Progress Note: Continues to clinically improve. Overall better. Intake & Output 09/16/16 09/17/16 09/18/16 09/19/16 23:59 23:59 23:59 23:59 Intake Total 3720 2712 2730 120 Output Total 1800 500 600 Balance 1920 2212 2130 120 Last Vital Signs Temp Pulse Resp BP Pulse Ox 98.2 F 78 18 156/77 91 L 09/19/16 10:07 09/19/16 10:07 09/19/16 10:07 09/19/16 10:07 09/18/16 21:00 Active Medications Acetaminophen (Tylenol -) 650 mg PO Q4H PRN PRN Reason: FEVER OR PAIN Last Admin: 09/13/16 09:54 Dose: 650 mg Amlodipine Besylate (Norvasc -) 10 mg PO DAILY [facility] Last Admin: 09/19/16 10:12 Dose: 10 mg Budesonide/Formoterol Fumarate (Symbicort 160/4.5mcg -) 2 puff IH BID [facility] Last Admin: 09/19/16 10:13 Dose: 2 puff Enoxaparin Sodium (Lovenox -) 40 mg SQ DAILY [facility] Last Admin: 09/19/16 10:12 Dose: 40 mg Lisinopril (Prinivil) 5 mg PO BID [facility] Last Admin: 09/19/16 10:12 Dose: 5 mg Montelukast Sodium (Singulair -) 10 mg PO HS [facility] Last Admin: 09/18/16 21:55 Dose: 10 mg Pantoprazole Sodium (Protonix -) 40 mg PO BID [facility] Last Admin: 09/19/16 10:11 Dose: 40 mg Prednisone (Deltasone -) 30 mg PO DAILY [facility] Last Admin: 09/19/16 10:12 Dose: 30 mg Constitutional: Yes: NAD Eyes: Yes: WNL HENT: Yes: WNL Neck: Yes: WNL Cardiovascular: Yes: Regular Rate and Rhythm, S1, S2 Respiratory: Yes: Few scattered Rhonchi Gastrointestinal: Yes: Normal Bowel Sounds, Soft Extremities: Yes: WNL Edema: No Labs: Laboratory Results - last 24 hr 09/18/16 09/19/16 22:28 05:58 POC Glucometer 97 87 Problem List - Problems (1) Acute exacerbation of chronic obstructive pulmonary disease Code(s): J44.1 - CHRONIC OBSTRUCTIVE PULMONARY DISEASE W (ACUTE) EXACERBATION (2) COPD (chronic obstructive pulmonary disease) Code(s): J44.9 - CHRONIC OBSTRUCTIVE PULMONARY DISEASE, UNSPECIFIED (3) Emphysema of lung Code(s): J43.9 - EMPHYSEMA, UNSPECIFIED (4) HTN (hypertension) Code(s): I10 - ESSENTIAL (PRIMARY) HYPERTENSION Assessment/Plan Acute COPD Exacerbation Acute hypoxemic respiratory failure Emphysema HTN - Prednisone taper - spiriva - symbicort - outpt PFTs and follow up - No Pulmonary contraindication for D/C Dr Martinez
--- NOTE | 2016-09-19 15:10 | PN ---
Progress Note, Physician History of Present Illness: patient stable feeling better patient developed redness and blister of the left leg says it happened yesterday now patient has blister of the leg but according to the patient erythema is better - Current Medication List Current Medications: Active Medications Acetaminophen (Tylenol -) 650 mg PO Q4H PRN PRN Reason: FEVER OR PAIN Last Admin: 09/13/16 09:54 Dose: 650 mg Amlodipine Besylate (Norvasc -) 10 mg PO DAILY [facility] Last Admin: 09/19/16 10:12 Dose: 10 mg Budesonide/Formoterol Fumarate (Symbicort 160/4.5mcg -) 2 puff IH BID [facility] Last Admin: 09/19/16 10:13 Dose: 2 puff Enoxaparin Sodium (Lovenox -) 40 mg SQ DAILY [facility] Last Admin: 09/19/16 10:12 Dose: 40 mg Lisinopril (Prinivil) 5 mg PO BID [facility] Last Admin: 09/19/16 10:12 Dose: 5 mg Montelukast Sodium (Singulair -) 10 mg PO HS [facility] Last Admin: 09/18/16 21:55 Dose: 10 mg Pantoprazole Sodium (Protonix -) 40 mg PO BID [facility] Last Admin: 09/19/16 10:11 Dose: 40 mg Prednisone (Deltasone -) 30 mg PO DAILY [facility] Last Admin: 09/19/16 10:12 Dose: 30 mg - Objective Vital Signs: Vital Signs Temperature 98.2 F 09/19/16 10:07 Pulse Rate 78 09/19/16 10:07 Respiratory Rate 18 09/19/16 10:07 Blood Pressure 156/77 09/19/16 10:07 O2 Sat by Pulse Oximetry (%) 91 L 09/18/16 21:00 Constitutional: Yes: No Distress, Calm Cardiovascular: Yes: Regular Rate and Rhythm Respiratory: Yes: Rhonchi, Other Gastrointestinal: Yes: Normal Bowel Sounds, Soft Musculoskeletal: Yes: Other Extremities: Yes: Erythema, Other (blister on the left foot) Neurological: Yes: Alert, Oriented Psychiatric: Yes: Alert, Oriented Labs: CBC, BMP 09/17/16 15:10 09/18/16 07:00 Assessment/Plan pneumonia bronchitis cough ac copd exacerbation blister of the leg cellulitis of the left leg onchomycosis plan patient evaluated leg examined i think patient should be started on doxy 100 mg twice a day for 7 days with nystatin cream to be applied in between the toes
--- NOTE | 2016-09-19 18:38 | PN ---
Progress Note, Physician Chief Complaint: SOB/ Chest tightness/ Cough got better Periods of Hypoxia Pt had improved well Pt has blister on Lt leg History of Present Illness: Pt feeling much better BP better controlled Lt leg blister seen by ID also - Current Medication List Current Medications: Active Medications Acetaminophen (Tylenol -) 650 mg PO Q4H PRN PRN Reason: FEVER OR PAIN Last Admin: 09/13/16 09:54 Dose: 650 mg Amlodipine Besylate (Norvasc -) 10 mg PO DAILY [facility] Last Admin: 09/19/16 10:12 Dose: 10 mg Budesonide/Formoterol Fumarate (Symbicort 160/4.5mcg -) 2 puff IH BID [facility] Last Admin: 09/19/16 10:13 Dose: 2 puff Enoxaparin Sodium (Lovenox -) 40 mg SQ DAILY [facility] Last Admin: 09/19/16 10:12 Dose: 40 mg Lisinopril (Prinivil) 5 mg PO BID [facility] Last Admin: 09/19/16 10:12 Dose: 5 mg Montelukast Sodium (Singulair -) 10 mg PO HS [facility] Last Admin: 09/18/16 21:55 Dose: 10 mg Pantoprazole Sodium (Protonix -) 40 mg PO BID [facility] Last Admin: 09/19/16 10:11 Dose: 40 mg Prednisone (Deltasone -) 30 mg PO DAILY [facility] Last Admin: 09/19/16 10:12 Dose: 30 mg - Objective Vital Signs: Vital Signs Temperature 98.3 F 09/19/16 15:00 Pulse Rate 84 09/19/16 15:00 Respiratory Rate 18 09/19/16 15:00 Blood Pressure 158/78 09/19/16 15:00 O2 Sat by Pulse Oximetry (%) 91 L 09/18/16 21:00 Constitutional: Yes: No Distress Eyes: Yes: WNL, Conjunctiva Clear HENT: Yes: Atraumatic, Normocephalic Neck: Yes: Supple, Trachea Midline Cardiovascular: Yes: Regular Rate and Rhythm, S1, S2 Respiratory: Yes: Regular, CTA Bilaterally Gastrointestinal: Yes: Normal Bowel Sounds, Soft Edema: No Peripheral Pulses WNL: Yes Labs: CBC, BMP 09/17/16 15:10 09/18/16 07:00 Problem List - Problems (1) Acute exacerbation of chronic obstructive pulmonary disease Code(s): J44.1 - CHRONIC OBSTRUCTIVE PULMONARY DISEASE W (ACUTE) EXACERBATION (2) Acute hypoxemic respiratory failure Code(s): J96.01 - ACUTE RESPIRATORY FAILURE WITH HYPOXIA (3) Emphysema of lung Code(s): J43.9 - EMPHYSEMA, UNSPECIFIED (4) HTN (hypertension) Code(s): I10 - ESSENTIAL (PRIMARY) HYPERTENSION (5) Anxiety Code(s): F41.9 - ANXIETY DISORDER, UNSPECIFIED Assessment/Plan (1) Acute exacerbation of chronic obstructive pulmonary disease Code(s): J44.1 - CHRONIC OBSTRUCTIVE PULMONARY DISEASE W (ACUTE) EXACERBATION (2) Acute hypoxemic respiratory failure Code(s): J96.01 - ACUTE RESPIRATORY FAILURE WITH HYPOXIA (3) Emphysema of lung Code(s): J43.9 - EMPHYSEMA, UNSPECIFIED (4) HTN (hypertension) Code(s): I10 - ESSENTIAL (PRIMARY) HYPERTENSION (5) Anxiety Code(s): F41.9 - ANXIETY DISORDER, UNSPECIFIED
[2016-09-19 20:29] VITALS: BP 144/86; PULSE 92; TEMP 98.6
== END 2016-09-19 20:06 | disposition home or self-care (01) | DRG 189 ==
LOC: JER 07:14 → JERBED 10:12 → J5S 16:43
PROVIDERS: ADMIT Internal Medicine; ATTEND Internal Medicine
DX: J96.01 Acute respiratory failure with hypoxia (principal); J44.0 Chronic obstructive pulmonary disease with (acute) lower respiratory infection; J44.1 Chronic obstructive pulmonary disease with (acute) exacerbation; J20.9 Acute bronchitis, unspecified; F41.9 Anxiety disorder, unspecified; Z87.891 Personal history of nicotine dependence; J02.9 Acute pharyngitis, unspecified
CPT/HCPCS: 36415; 36600; 71020-TC; 71275-TC; 80048; 80053; 82550; 82803; 83735; 83880; 84100; 84484; 85025; 85027; 85379; 87040; 93005; 93010; 93970-TC; 94010; 94640; 94761; 97116-GP; 97162; 99284-25; J1644

== ENCOUNTER 2017-02-25 07:34 | Day surgery (SDC) | payer OTHER ==
[2017-02-24 18:04] VITALS: BMI 27.4
[~2017-02-25 07:34] MED LIST: TOBRAMYCIN/DEXAMETHASONE OPHTH. OINTMENT 1 TUBE TP ONE
[2017-02-25] MEDS: MOXIFLOXACIN HCL 0.5% OPHTHALMIC 3 ML BOTTLE OP SCH ×3 (08:20→08:40)
[2017-02-25] MEDS: PHENYLEPHRINE 2.5% OPHTH SOLN 15 ML BOTTLE OP SCH ×3 (08:20→08:40)
[2017-02-25] MEDS: CYCLOPENTOLATE HCL 1% OPHTH SOLN 2 ML BOTTLE OP SCH ×3 (08:20→08:40)
[2017-02-25] MEDS: TROPICAMIDE 1% OPHTH SOLN 15 ML BOTTLE OP SCH ×3 (08:20→08:40)
[2017-02-25 08:35] VITALS: TEMP 97.9
--- NOTE | 2017-02-25 09:08 | HP ---
History & Physical Update - History History: No Change - Physical Physical: No Change - Assessment Assessment: No Change - Plan Plan: No Change
[2017-02-25] MEDS ORDERED: MIDAZOLAM HCL 2 MG/2 ML SINGLE DOSE VIAL ONE (09:15)
[2017-02-25] MEDS ORDERED: BUPIVACAINE HCL/PF 0.75% 10 ML VIAL RB ONE (09:17)
[2017-02-25] MEDS ORDERED: LIDOCAINE HCL/PF 2% SDV 5ML VIAL INF ONE (09:17)
[2017-02-25] MEDS ORDERED: POVIDONE-IODINE 5% OPHTHALMIC PREP 30 ML SOLUTION OS ONE (09:22)
[2017-02-25] MEDS ORDERED: ONDANSETRON 4 MG/2 ML VIAL IVPUSH PRN (09:28)
[2017-02-25] MEDS ORDERED: ACETAMINOPHEN 325 MG TABLET (FP) PO PRN (09:28)
[2017-02-25] MEDS ORDERED: LACTATED RINGERS SOLUTION 1,000 ML IV SCH (09:30)
[2017-02-25] MEDS ORDERED: TRYPAN BLUE 0.5 ML DISP.SYRIN IO ONE (09:30)
[2017-02-25] MEDS ORDERED: LIDOCAINE HCL 1% PRESERVATIVE FREE - 30ML VIAL IO ONE (09:30)
[2017-02-25] MEDS ORDERED: CHONDROITIN SU A/HYALUR SOD 1 KIT IO ONE (09:32)
[2017-02-25] MEDS ORDERED: TOBRAMYCIN/DEXAMETHASONE OPHTH. OINTMENT 1 TUBE TP ONE (10:00)
[2017-02-25] MEDS ORDERED: BUPIVACAINE HCL/PF 0.75% 10 ML VIAL ONE (10:16)
[2017-02-25] MEDS ORDERED: TOBRAMYCIN/DEXAMETHASONE OPHTH. OINTMENT 1 TUBE ONE (10:16)
[2017-02-25] MEDS ORDERED: LIDOCAINE HCL/PF 2% SDV 5ML VIAL ONE (10:16)
[2017-02-25 11:24] VITALS: BP 125/78; PULSE 66
--- NOTE | 2017-02-25 13:20 | OP ---
DATE OF OPERATION: 02/25/2017 SURGEON: Maciel Coreas MD PREOPERATIVE DIAGNOSIS: Cataract, left eye. OPERATION: Phacoemulsification and intraocular lens implantation, left eye. POSTOPERATIVE DIAGNOSIS: Cataract, left eye. ANESTHESIA: Local with intravenous sedation. COMPLICATIONS: None. BLOOD LOSS: None. SPECIMEN: None. BRIEF HISTORY: The patient is an 87-year-old man with a past medical history of hypertension, who presented with decreased vision in the left eye down to 20/70- due to a dense, 4+ nuclear sclerotic lens. After the risks, benefits, and alternatives to cataract surgery were discussed with the patient including the increased risk of complications due to the density of the lens, the patient consented to surgery. DESCRIPTION OF PROCEDURE: The patient was brought to the operating room and administered retrobulbar block. After receiving intravenous sedation, she as then prepped and draped in the usual sterile fashion, and an eyelid speculum was inserted in the left eye. A paracentesis was made, and the anterior chamber was inflated with nonpreserved lidocaine. This was followed by injection of air, trypan blue dye, and Viscoat due to the poor red reflex. A groove was made in the superotemporal clear cornea which was tunneled forward with a crescent blade. The anterior chamber was entered with a 2.75 keratome. The cystotome was used to make an incision in the center of the capsule, and a continuous curvilinear capsulorrhexis was created. The lens was hydrodissected until it was found to rotate freely within the capsular bag. Phacoemulsification was then used to remove the lens in its entirety. Irrigation and aspiration were used to remove residual cortical material. The anterior chamber and capsular bag were reinflated with Provisc, and a 21.5-diopter SN60WF AcrySof intraocular lens was injected into the capsular bag using the [place] injector. The lens was dialed into place using a Sinskey hook. Irrigation and aspiration were used to remove residual Viscoelastic. The wound was stromally hydrated until it was found to be watertight and the eye was at an appropriate pressure. The eyelid speculum was removed from the eye, and TobraDex ointment and a patch and shield were placed over the left eye. The patient was transferred to the recovery room in stable condition and will follow up tomorrow. MACIEL COREAS M.D. [id number]
== END 2017-02-25 11:24 | disposition home or self-care (01) ==
LOC: JASU-SURG 07:34
PROVIDERS: ATTEND Ophthalmology
PROC: 08RK3JZ Replacement of Left Lens with Synthetic Substitute, Percutaneous Approach (ICD-10-PCS; principal; 2017-02-25 09:00)
DX: H25.12 Age-related nuclear cataract, left eye (principal)

== ENCOUNTER 2017-04-29 08:20 | Day surgery (SDC) | payer OTHER ==
[2017-04-28 11:33] VITALS: BMI 23.6
[~2017-04-29 08:20] MED LIST changes: +BUPIVACAINE HCL/PF 0.75% 10 ML VIAL RB ONE; +CHONDROITIN SU A/HYALUR SOD 1 KIT IO ONE; +CYCLOPENTOLATE HCL 1% OPHTH SOLN 2 ML BOTTLE OS SCH; +EPINEPHrine/PF 1 MG/1 ML (1:1,000) AMPULE SQ ONE; +LIDOCAINE HCL 1% PRESERVATIVE FREE - 30ML VIAL IO ONE; +LIDOCAINE HCL/PF 2% SDV 5ML VIAL INF ONE; +MOXIFLOXACIN HCL 0.5% OPHTHALMIC 3 ML BOTTLE OP SCH; +PHENYLEPHRINE 2.5% OPHTH SOLN 15 ML BOTTLE OP SCH; +TETRACAINE 0.5% OPHTH SOLN 2 ML BOTTLE OD ONE; +TROPICAMIDE 1% OPHTH SOLN 15 ML BOTTLE OP SCH; +TRYPAN BLUE 0.5 ML DISP.SYRIN IO ONE
[2017-04-29] MEDS ORDERED: CYCLOPENTOLATE HCL 1% OPHTH SOLN 2 ML BOTTLE OD ONE ×3 (08:45→09:00)
[2017-04-29] MEDS ORDERED: PHENYLEPHRINE 2.5% OPHTH SOLN 15 ML BOTTLE OD ONE ×3 (08:45→09:00)
[2017-04-29] MEDS ORDERED: TROPICAMIDE 1% OPHTH SOLN 15 ML BOTTLE OD ONE ×3 (08:45→09:00)
[2017-04-29] MEDS ORDERED: MOXIFLOXACIN HCL 0.5% OPHTHALMIC 3 ML BOTTLE OD ONE ×3 (08:45→09:00)
[2017-04-29 08:49] VITALS: TEMP 97.8
[2017-04-29] MEDS ORDERED: MIDAZOLAM HCL 2 MG/2 ML SINGLE DOSE VIAL ONE (09:55)
--- NOTE | 2017-04-29 10:02 | HP ---
History & Physical Update - History History: No Change - Physical Physical: No Change - Assessment Assessment: No Change - Plan Plan: No Change
[2017-04-29] MEDS ORDERED: TETRACAINE 0.5% OPHTH SOLN 2 ML BOTTLE OD ONE (10:23)
[2017-04-29] MEDS ORDERED: BUPIVACAINE HCL/PF 0.75% 10 ML VIAL RB ONE (10:30)
[2017-04-29] MEDS ORDERED: LIDOCAINE HCL/PF 2% SDV 5ML VIAL INF ONE (10:30)
[2017-04-29] MEDS ORDERED: POVIDONE-IODINE 5% OPHTHALMIC PREP 30 ML SOLUTION OD ONE (10:32)
[2017-04-29] MEDS ORDERED: LIDOCAINE HCL 1% PRESERVATIVE FREE - 30ML VIAL IO ONE (10:40)
[2017-04-29] MEDS ORDERED: BSS (NA/CA/MG/K) BALANCED SALT SOLUTION OPHTH SOLN 15 ML BOTTLE OD ONE (10:40)
[2017-04-29] MEDS ORDERED: TRYPAN BLUE 0.5 ML DISP.SYRIN IO ONE (10:40)
[2017-04-29] MEDS ORDERED: CHONDROITIN SU A/HYALUR SOD 1 KIT IO ONE (10:40)
[2017-04-29] MEDS ORDERED: EPINEPHrine/PF 1 MG/1 ML (1:1,000) AMPULE SQ ONE (10:50)
[2017-04-29] MEDS ORDERED: TOBRAMYCIN/DEXAMETHASONE OPHTH. OINTMENT 1 TUBE TP ONE (11:09)
[2017-04-29 11:58] VITALS: BP 160/74; PULSE 66
--- NOTE | 2017-04-29 16:42 | OP ---
DATE OF OPERATION: 04/29/2017 SURGEON: Maciel Coreas MD PREOPERATIVE DIAGNOSIS: Cataract, right eye. OPERATION: Phacoemulsification and intraocular lens implantation, right eye. POSTOPERATIVE DIAGNOSIS: Cataract, right eye. ANESTHESIA: Local with intravenous sedation. COMPLICATIONS: None. BLOOD LOSS: None. SPECIMEN: None. BRIEF HISTORY: The patient is an 87-year-old man with a past medical history of hypertension, who presented with decreased vision in the right eye down to 20/70 due to a 4+ nuclear sclerotic lens. After the risks, benefits, and alternatives to cataract surgery were discussed with the patient including the increased risk of complications due to the density of the lens, the patient consented to surgery. DESCRIPTION OF PROCEDURE: The patient was brought to the operating room and administered retrobulbar block after receiving intravenous sedation. He was then prepped and draped in the usual sterile fashion, and an eyelid speculum was inserted in the right eye. A paracentesis was made, and the anterior chamber was inflated with nonpreserved lidocaine. This was followed by injection of air, trypan blue dye, and Viscoat due to the poor red reflex. A groove was made in the temporal clear cornea which was tunneled forward with a crescent blade. The anterior chamber was entered with a 2.75 keratome. The cystotome was used to make an incision in the center of the capsule, and a continuous curvilinear capsulorrhexis was created. The lens was hydrodissected until it was found to rotate freely within the capsular bag. Phacoemulsification was then used to remove the lens in its entirety. Irrigation and aspiration were used to remove residual cortical material. The anterior chamber and capsular bag were reinflated with Provisc, and a 21.5-diopter SN60WF AcrySof intraocular lens was injected into the capsular bag using the [place] injector. The lens was dialed into place using a Sinskey hook. Irrigation and aspiration were used to remove residual Viscoelastic. The wound was stromally hydrated until it was found to be watertight and the eye was at an appropriate pressure. The eyelid speculum was removed from the eye, and TobraDex ointment and a patch and shield were placed over the right eye. The patient was transferred to the recovery room in stable condition and will follow up tomorrow. MACIEL COREAS M.D. [id number]
== END 2017-04-29 12:10 | disposition home or self-care (01) ==
LOC: JASU-SURG 08:20
PROVIDERS: ATTEND Ophthalmology
PROC: 08RJ3JZ Replacement of Right Lens with Synthetic Substitute, Percutaneous Approach (ICD-10-PCS; principal; 2017-04-29 10:00)
DX: H25.11 Age-related nuclear cataract, right eye (principal); I10 Essential (primary) hypertension

== ENCOUNTER 2017-07-16 19:43 | Inpatient (IN) | payer OTHER ==
--- NOTE | 2017-07-16 20:33 | PDOC ---
Rapid Medical Evaluation Time Seen by Provider: 07/16/17 20:29 Medical Evaluation: Allergies Allergy/AdvReac Type Severity Reaction Status Date / Time No Known Allergies Allergy Verified 04/29/17 08:53 07/16/17 20:30 I have performed a brief in-person evaluation of this patient. The patient presents with a chief complaint of: sob and wheezing s/p recent uri. H/o copd, does not use oxygen, HTN Pertinent physical exam findings:sating 90% on RA w/ diffuse wheezing I have ordered the following:oxygen, labs/ekg/cxr The patient will proceed to the ED for further evaluation. Discharge Disposition - Diagnosis SOB (shortness of breath) - Referrals - Patient Instructions - Post Discharge Activity
--- NOTE | 2017-07-16 20:58 | PDOC ---
History of Present Illness - General History Source: Patient, Old Records Exam Limitations: No Limitations - History of Present Illness Initial Comments: 07/16/17 22:24 The patient is a 87 year old male, with a significant past medical history of Prostate CA, emphysema, COPD, HTN, bronchitis who presents to the emergency department complaining of shortness of breath and wheezing. On presentation the patient is on oxygen and notes that he is not on home oxygen. He notes that recently had URI symptoms since last (07/09/2017), which developed into bronchitis and is currently taking Zithromax and prednisone. He notes that the last time he had these symptoms was last year during the change of the season. The pattient denies chest pain, headache or dizziness. Denies fever, chills, nausea, vomiting, diarrhea and constipation. Denies dysuria, frequency, urgency and hematuria. Allergies: None Past surgical history: Unsure Social History: 50 year tobacco use. Quit in 1998. <Elie Hastings - Last Filed: 07/17/17 00:44> <Priya Song - Last Filed: 07/17/17 01:08> - General Chief Complaint: Shortness of Breath Stated Complaint: S.O.B Time Seen by Provider: 07/16/17 20:29 Past History <Elie Hastings - Last Filed: 07/17/17 00:44> - Past Medical History Cancer: Yes (PROSTATE) Cardiac Disorders: No CVA: No COPD: Yes (EMPHYSEMA) CHF: No Dementia: No Diabetes: No GI Disorders: No Disorders: No HTN: Yes Hypercholesterolemia: No Liver Disease: No Seizures: No Thyroid Disease: No - Surgical History Abdominal Surgery: No Appendectomy: No Cardiac Surgery: Yes (LEFT) Cholecystectomy: Yes Lung Surgery: No Neurologic Surgery: No Orthopedic Surgery: No - Suicide/Smoking/Psychosocial Hx Smoking History: Former smoker Have you smoked in the past 12 months: No If you are a former smoker, when did you quit?: 1998 Information on smoking cessation initiated: No Hx Alcohol Use: No Drug/Substance Use Hx: No Substance Use Type: None Hx Substance Use Treatment: No <Priya Song - Last Filed: 07/17/17 01:08> - Past Medical History Allergies/Adverse Reactions: Allergies Allergy/AdvReac Type Severity Reaction Status Date / Time No Known Allergies Allergy Verified 07/16/17 20:33 Home Medications: Ambulatory Orders Budesonide/Formeterol Fumarate [SYMBICORT 160/4.5mcg -] 1 inh PO BID 02/24/17 Lisinopril 5 mg PO BID 02/25/17 Metoprolol Tartrate [Lopressor -] 25 mg PO DAILY 02/25/17 Montelukast Na [Singulair -] 10 mg PO HS 02/25/17 Multivitamin [Poly-Vitamin] 1 each PO DAILY 04/28/17 Review of Systems - Review of Systems Able to Perform ROS?: Yes Comments:: 07/16/17 22:25 GENERAL/CONSTITUTIONAL: No fever or chills. No weakness. HEAD, EYES, EARS, NOSE AND THROAT: No change in vision. No ear pain or discharge. No sore throat. CARDIOVASCULAR: (+) Shortness of breath, dyspnea on exertion. No chest pain RESPIRATORY: No cough, wheezing, or hemoptysis. GASTROINTESTINAL: No nausea, vomiting, diarrhea or constipation. GENITOURINARY: No dysuria, frequency, or change in urination. MUSCULOSKELETAL: No joint or muscle swelling or pain. No neck or back pain. SKIN: No rash NEUROLOGIC: No headache, vertigo, loss of consciousness, or change in strength/ sensation. ENDOCRINE: No increased thirst. No abnormal weight change HEMATOLOGIC/LYMPHATIC: No anemia, easy bleeding, or history of blood clots. ALLERGIC/IMMUNOLOGIC: No hives or skin allergy. <Elie Hastings - Last Filed: 07/17/17 00:44> *Physical Exam - Vital Signs Last Vital Signs Temp Pulse Resp BP Pulse Ox 97.8 F 92 H 20 163/91 100 07/16/17 20:34 07/16/17 20:34 07/16/17 20:34 07/16/17 20:34 07/16/17 21:05 - Physical Exam Comments: 07/16/17 22:25 GENERAL: Awake, alert, and fully oriented, in no acute distress HEAD: No signs of trauma, normocephalic, atraumatic EYES: PERRLA, EOMI, sclera anicteric, conjunctiva clear ENT: Auricles normal inspection, hearing grossly normal, nares patent, oropharynx clear without exudates. Moist mucosa NECK: Normal ROM, supple, no lymphadenopathy, JVD, or masses LUNGS: (+) Rales and Crackles bilaterally. Hypoxic room air 89%, speaks full sentences. HEART: Regular rate and rhythm, normal S1 and S2, no murmurs, rubs or gallops, peripheral pulses normal and equal bilaterally. ABDOMEN: Soft, nontender, normoactive bowel sounds. No guarding, no rebound. No masses EXTREMITIES: (+) 1 pititing edema LLE, +Trace edema RLE. No clubbing or cyanosis. NEUROLOGICAL: Cranial nerves II through XII grossly intact. Normal speech, no focal sensorimotor deficits SKIN: Warm, Dry, normal turgor, no rashes or lesions noted <Elie Hastings - Last Filed: 07/17/17 00:44> - Vital Signs Last Vital Signs Temp Pulse Resp BP Pulse Ox 97.8 F 92 H 20 163/91 89 L 07/16/17 20:34 07/16/17 20:34 07/16/17 20:34 07/16/17 20:34 07/16/17 20:34 <Priya Song - Last Filed: 07/17/17 01:08> Heart Score/ECG Review - ECG Intrepretation Comment:: 07/16/17 21:31 sinus at 82, L axis deviation, biphasic t waves anterior leads which are new, abnl ekg, <Priya Song - Last Filed: 07/17/17 01:08> ED Treatment Course - LABORATORY CBC & Chemistry Diagram: 07/16/17 20:50 07/16/17 22:24 - ADDITIONAL ORDERS Additional order review: Laboratory Results 07/16/17 07/16/17 07/16/17 21:32 21:32 21:32 VBG pH 7.43 H POC VBG pCO2 39.6 POC VBG pO2 49.7 H Mixed VBG HCO3 25.9 H Sodium Cancelled Potassium Cancelled Chloride Cancelled Carbon Dioxide Cancelled Anion Gap Cancelled BUN Cancelled Creatinine Cancelled Creat Clearance w eGFR Cancelled Random Glucose Cancelled Calcium Cancelled Magnesium Cancelled Total Bilirubin Cancelled AST Cancelled ALT Cancelled Alkaline Phosphatase Cancelled Creatine Kinase Cancelled Troponin I Cancelled B-Natriuretic Peptide Cancelled Total Protein Cancelled Albumin Cancelled 07/16/17 20:50 VBG pH POC VBG pCO2 POC VBG pO2 Mixed VBG HCO3 Sodium Cancelled Potassium Cancelled Chloride Cancelled Carbon Dioxide Cancelled Anion Gap Cancelled BUN Cancelled Creatinine Cancelled Creat Clearance w eGFR Cancelled Random Glucose Cancelled Calcium Cancelled Magnesium Total Bilirubin Cancelled AST Cancelled ALT Cancelled Alkaline Phosphatase Cancelled Creatine Kinase Cancelled Troponin I Cancelled B-Natriuretic Peptide Total Protein Cancelled Albumin Cancelled 07/16/17 20:50 RBC 5.08 MCV 97.1 H MCHC 34.6 RDW 14.3 MPV 9.7 Neutrophils % 91.3 H Lymphocytes % 3.8 L Monocytes % 4.8 D Eosinophils % 0.0 Basophils % 0.1 - Medications Given in the ED: ED Medications Discontinued Medications Generic Name Dose Route Start Last Admin Trade Name Freq PRN Reason Stop Dose Admin Albuterol/Ipratropium 1 amp 07/16/17 21:05 07/16/17 21:33 Duoneb - NEB 07/16/17 21:06 1 amp ONCE ONE Administration <Elie Hastings - Last Filed: 07/17/17 00:44> - LABORATORY CBC & Chemistry Diagram: 07/16/17 20:50 07/16/17 22:24 <Priya Song - Last Filed: 07/17/17 01:08> Medical Decision Making - Medical Decision Making 07/17/17 00:44 Dr. Chen was called at 11:58pm and 12:37am, with no call backs. [phone] <Elie Hastings - Last Filed: 07/17/17 00:44> - Medical Decision Making 07/16/17 21:06 87yo male with hx of HTN and COPD presents c/o SOB x 1 week -dx with bronchitis last week by PMD and started on prednisone 10mg and azithro 500mg -states still with SOB -denies cp -concern given crackles in chest for COPD vs CHF exacerbation -will check labs, ekg, cxr -nebs for COPD -hypoxic on RA-feeling better on 2L nc -new oxygen requirement -will monitor and reassess -will most likely need admission for further eval 07/16/17 23:56 pt with elevated trop no cp no sob at this time ortiz elevated BNP suspect new onset heart failure with NSTEMI call placed to PMD - Dr. Chen for admission for cardiac workup 07/17/17 00:[address] to Dr[address] Chen-pending call back 07/17/17 01:00 will admit to [facility] overnight - microblog sent to [facility] 07/17/17 01:[address] Shelton who accepts pt to service - tele requests repeat trop now <Priya Song - Last Filed: 07/17/17 01:08> *DC/Admit/Observation/Transfer - Attestations Scribe Attestion: 07/16/17 22:25 Documentation prepared by Elie Hastings, acting as biomedical engineering technologist for Priya Song DO <Elie Hastings - Last Filed: 07/17/17 00:44> - Discharge Dispostion Admit: Yes - Attestations Physician Attestion: 07/16/17 23:57 I, Dr. Priya Song, DO, attest that this document has been prepared under my direction and personally reviewed by me in its entirety. I further attest, that it accurately reflects all work, treatment, procedures and medical decision -making performed by me. <Priya Song - Last Filed: 07/17/17 01:08> Diagnosis at time of Disposition: SOB (shortness of breath), COPD (chronic obstructive pulmonary disease), CHF ( congestive heart failure), Elevated troponin - Discharge Dispostion Condition at time of disposition: Guarded
[2017-07-16 21:00] LABS: BASO % 0.1 % (0-2.0); HEMATOCRIT 49.3 % (35.4-49); HEMOGLOBIN 17.1 GM/dL (11.7-16.9); LYMPH % 3.8 % (8-40); MCH 33.6 pg (25.7-33.7); MCHC 34.6 g/dl (32.0-35.9); MEAN CELL VOLUME 97.1 fl (80-96); MEAN PLT VOLUME 9.7 fl (7.5-11.1); MONO % 4.8 % (3.8-10.2); NEUT % 91.3 % (42.8-82.8); PLATELET COUNT 213 K/MM3 (134-434); RBC 5.08 M/mm3 (4.00-5.60); RDW 14.3 % (11.9-15.9); WHITE BLOOD COUNT 7.4 K/mm3 (4.0-10.0)
[2017-07-16] MEDS ORDERED: ALBUTEROL SO4 2.5/IPRATROPIUM 0.5 INH SOL 3 ML VIAL.NEB. NEB ONE ×2 (21:05→21:11)
[2017-07-16 21:38] LABS: VENOUS PC02 39.6 mmHg (38-52); VENOUS PH 7.43 (7.32-7.42); VENOUS PO2 49.7 mmHg (28-48)
[2017-07-16 23:13] LABS: ALBUMIN 3.6 g/dl (3.4-5.0); ANION GAP 10 (8-16); BILIRUBIN,TOTAL 1.2 mg/dL (0.2-1.0); BLOOD UREA NITROGEN 28 mg/dL (7-18); CALCIUM 8.9 mg/dL (8.5-10.1); CHLORIDE 102 mmol/L (98-107); CO2 26 mmol/L (21-32); GLUCOSE,RANDOM 145 mg/dL (74-106); POTASSIUM 4.3 mmol/L (3.5-5.1); SGOT/AST 45 U/L (15-37); SGPT/ALT 130 U/L (12-78); SODIUM 138 mmol/L (136-145); TOT PROT 6.1 g/dl (6.4-8.2)
[2017-07-16 23:51] LABS: ALK PHOS 49 U/L (45-117)
[2017-07-16] MEDS ORDERED: ASPIRIN 81 MG CHEWABLE TABLETS PO ONE (23:52)
[2017-07-16] MEDS ORDERED: FUROSEMIDE 40 MG/4 ML INJECTABLE VIAL IVPUSH ONE (23:52)
[2017-07-17] MEDS ORDERED: ASPIRIN 325 MG TABLET ONE (00:07)
[2017-07-17] MEDS ORDERED: FUROSEMIDE 40 MG/4 ML INJECTABLE VIAL ONE (00:07)
[2017-07-17] MEDS ORDERED: ATORVASTATIN CA 80 MG TABLET (FP) PO ONE (01:04)
[2017-07-17] MEDS ORDERED: ATORVASTATIN CA 80 MG TABLET (FP) ONE (01:26)
--- NOTE | 2017-07-17 02:16 | HP ---
CHIEF COMPLAINT: SOB PCP: Khanh HISTORY OF PRESENT ILLNESS: This is an 87 year old male with a past medical history significant for COPD, HTN who presented to the ED with SOB, wheezing x 1 week. He states that it started as a cold about one week ago and then Friday he began to get worse. He was started on azithromycin and prednisone. he took prednisone 40mg twice on . He states that he urinated "an entire urinal" after receiving lasix in the ED but reports his SOB has not gotten any better. Pt denies any chest pain or palpitations. ER course was notable for: (1) Trop 0.88, BNP 9874 Recent Travel: pt denies PAST MEDICAL HISTORY: prostate CA s/p seed implant and external beam radiation, COPD, HTN, "urine polyps" PAST SURGICAL HISTORY: B/L cataracts cholecystectomy polynoidal cyst rectal fistula bladder polypectomy Social History: Smoking: quit 1998, 2 ppd x 50 years Alcohol: pt denies Drugs: pt denies Family History: mother age 77, [place] in her sleep father age 66, multiple CVAs, duodenal ulcer sister age 60, BrCA Allergies No Known Allergies Allergy (Verified 07/16/17 20:33) HOME MEDICATIONS: 3 Medication Instructions Recorded Budesonide/Formeterol Fumarate 1 inh PO BID 02/24/17 [SYMBICORT 160/4.5mcg -] Lisinopril 5 mg PO BID 02/25/17 Metoprolol Tartrate [Lopressor -] 25 mg PO DAILY 02/25/17 Montelukast Na [Singulair -] 10 mg PO HS 02/25/17 Multivitamin [Poly-Vitamin] 1 each PO DAILY 04/28/17 REVIEW OF SYSTEMS CONSTITUTIONAL: Absent: fever, chills, diaphoresis, generalized weakness, malaise, loss of appetite, weight change HEENT: Absent: rhinorrhea, nasal congestion, throat pain, throat swelling, difficulty swallowing, mouth swelling, ear pain, eye pain, visual changes CARDIOVASCULAR: Absent: chest pain, syncope, palpitations, irregular heart rate, lightheadedness , peripheral edema RESPIRATORY: Present: cough, shortness of breath, dyspnea with exertion Absent: orthopnea, wheezing, stridor, hemoptysis GASTROINTESTINAL: Absent: abdominal pain, abdominal distension, nausea, vomiting, diarrhea, constipation, melena, hematochezia GENITOURINARY: Absent: dysuria, frequency, urgency, hesitancy, hematuria, flank pain, genital pain MUSCULOSKELETAL: Absent: myalgia, arthralgia, joint swelling, back pain, neck pain SKIN: Absent: rash, itching, pallor HEMATOLOGIC/IMMUNOLOGIC: Absent: easy bleeding, easy bruising, lymphadenopathy, frequent infections ENDOCRINE: Absent: unexplained weight gain, unexplained weight loss, heat intolerance, cold intolerance NEUROLOGIC: Absent: headache, focal weakness or paresthesias, dizziness, unsteady gait, seizure, mental status changes, bladder or bowel incontinence PSYCHIATRIC: Absent: anxiety, depression, suicidal or homicidal ideation, hallucinations. PHYSICAL EXAMINATION Vital Signs - 24 hr 3 07/16/17 07/16/17 20:34 21:05 Temperature 97.8 F Pulse Rate 92 H Respiratory 20 Rate Blood Pressure 163/91 O2 Sat by Pulse 89 L 100 Oximetry (%) GENERAL: Awake, alert, and fully oriented, in no acute distress. HEAD: Normal with no signs of trauma. EYES: Pupils equal, round and reactive to light, extraocular movements intact, sclera anicteric, conjunctiva clear. No lid lag. EARS, NOSE, THROAT: Ears normal, nares patent, oropharynx clear without exudates. Moist mucous membranes. NECK: Normal range of motion, supple without lymphadenopathy, JVD, or masses. LUNGS: breath sounds coarse, + scattered wheezes and crackles HEART: Regular rate and rhythm, normal S1 and S2 without murmur, rub or gallop. ABDOMEN: Soft, nontender, not distended, normoactive bowel sounds, no guarding, no rebound, no masses. No hepatomegaly or splenomegaly. MUSCULOSKELETAL: Normal range of motion at all joints. No bony deformities or tenderness. No CVA tenderness. UPPER EXTREMITIES: 2+ pulses, warm, well-perfused. No cyanosis. No clubbing. No peripheral edema. LOWER EXTREMITIES: 2+ pulses, warm, well-perfused. No calf tenderness. 1+ peripheral edema B/L NEUROLOGICAL: Cranial nerves II-XII intact. Normal speech. Normal gait. PSYCHIATRIC: Cooperative. Good eye contact. Appropriate mood and affect. SKIN: Warm, dry, normal turgor, no rashes or lesions noted, normal capillary refill. Laboratory Results - last 24 hr 3 07/16/17 07/16/17 07/16/17 20:50 20:50 21:32 WBC 7.4 D RBC 5.08 Hgb 17.1 H D Hct 49.3 H MCV 97.1 H MCH 33.6 MCHC 34.6 RDW 14.3 Plt Count 213 D MPV 9.7 Neutrophils % 91.3 H Lymphocytes % 3.8 L Monocytes % 4.8 D Eosinophils % 0.0 Basophils % 0.1 VBG pH 7.43 H POC VBG pCO2 39.6 POC VBG pO2 49.7 H Mixed VBG HCO3 25.9 H Sodium Cancelled Potassium Cancelled Chloride Cancelled Carbon Dioxide Cancelled Anion Gap Cancelled BUN Cancelled Creatinine Cancelled Creat Clearance w eGFR Cancelled Random Glucose Cancelled Calcium Cancelled Magnesium Total Bilirubin Cancelled AST Cancelled ALT Cancelled Alkaline Phosphatase Cancelled Creatine Kinase Cancelled Troponin I Cancelled B-Natriuretic Peptide Total Protein Cancelled Albumin Cancelled 3 07/16/17 07/16/17 07/16/17 07/17/17 21:32 21:32 22:24 01:09 WBC RBC Hgb Hct MCV MCH MCHC RDW Plt Count MPV Neutrophils % Lymphocytes % Monocytes % Eosinophils % Basophils % VBG pH POC VBG pCO2 POC VBG pO2 Mixed VBG HCO3 Sodium Cancelled 138 Potassium Cancelled 4.3 Chloride Cancelled 102 Carbon Dioxide Cancelled 26 Anion Gap Cancelled 10 BUN Cancelled 28 H D Creatinine Cancelled 1.0 Creat Clearance w eGFR Cancelled > 60 Random Glucose Cancelled 145 H D Calcium Cancelled 8.9 Magnesium Cancelled 2.1 Total Bilirubin Cancelled 1.2 H D AST Cancelled 45 H D ALT Cancelled 130 H D Alkaline Phosphatase Cancelled 49 D Creatine Kinase Cancelled 87 91 Troponin I Cancelled 0.88 H* D 0.80 H* B-Natriuretic Peptide Cancelled 9874.37 H Total Protein Cancelled 6.1 L Albumin Cancelled 3.6 D Radiology Reports Chest xray-portable Official read pending, no obvious infiltrates or effusions. ECG Normal sinus rhythm vent rate 82, QTC [address] abnormality ASSESSMENT/PLAN: 87yM with PMH prostate CA s/p seed implant and external beam radiation, COPD, HTN, "urine polyps" presented with SOB, cough, wheezing x 1 week. CHF exac - good response to lasix 40mg iv in ed, cont same. - echo ordered - cardiology consult recommended, pt does not have one, defer to PCP COPD exac - start IV solumedrol, 60mg Q6h - duoneb QID - cont home symbicort - pulm consult-seen by sully in past - oxygen 2LNC HTN - cont home metoprolol, lisinopril DVT PPX - heparin 5000u TID FEN - tolerating po - bmp in am - low sodium diet as tolerated Dispo: pt currently requires further inpatient management of his emergent condition. Visit type - Emergency Visit Emergency Visit: Yes ED Registration Date: 07/16/17 Care time: The patient presented to the Emergency Department on the above date and was hospitalized for further evaluation of their emergent condition. - New Patient This patient is new to me today: Yes Date on this admission: 07/17/17 - Critical Care Critical Care patient: No Hospitalist Screening - Colonoscopy Questionnaire Colonoscopy Questionnaire: Colonoscopy Questionnaire - Patient: 50 - 75 years old and never had a screening colonoscopy: No History of colon or rectal polyps, or CA: No History of IBD, Crohn's disease or UC: No History of abdominal radiation therapy as a child: No - Relative: 1 with colon or rectal CA, or polyps at age 60 or younger: No Colon or rectal CA diagnosed at age 45 or younger: No Multiple relatives with colon or rectal CA: No - Outcome: Screening Result: Negative Screen
[2017-07-17] MEDS ORDERED: methylPREDNISolone NA SUCC 125 MG/2 ML VIAL ONE (03:22)
[2017-07-17] MEDS: methylPREDNISolone NA SUCC 125 MG/2 ML VIAL IVPUSH SCH ×4 (03:50→21:09)
[2017-07-17] MEDS ORDERED: HEPARIN NA (PORCINE) 5,000 UNITS/ML 1ML VIAL ONE ×2 (06:03→15:29)
[2017-07-17] MEDS: HEPARIN NA (PORCINE) 5,000 UNITS/ML 1ML VIAL SQ SCH ×3 (06:12→21:10)
--- NOTE | 2017-07-17 07:27 | HP ---
Admitting History and Physical - Primary Care Physician PCP: Dr reymundo Cassidy([facility]) - Admission Chief Complaint: This is an 87 year old male with a past medical history significant for COPD, HTN who presented to the ED with SOB, wheezing x 1 week. History Source: Patient Limitations to Obtaining History: No Limitations - Past Medical History Cardiovascular: Yes: HTN Pulmonary: Yes: COPD - Smoking History Smoking history: Former smoker Have you smoked in the past 12 months: No If you are a former smoker, when did you quit?: 1998 - Alcohol/Substance Use Hx Alcohol Use: No Home Medications - Allergies Allergies/Adverse Reactions: Allergies Allergy/AdvReac Type Severity Reaction Status Date / Time No Known Allergies Allergy Verified 07/16/17 20:33 - Home Medications Home Medications: Ambulatory Orders Budesonide/Formeterol Fumarate [SYMBICORT 160/4.5mcg -] 1 inh PO BID 02/24/17 Lisinopril 5 mg PO BID 02/25/17 Metoprolol Tartrate [Lopressor -] 25 mg PO DAILY 02/25/17 Montelukast Na [Singulair -] 10 mg PO HS 02/25/17 Multivitamin [Poly-Vitamin] 1 each PO DAILY 04/28/17 Review of Systems - Review of Systems Constitutional: reports: Weakness Eyes: reports: No Symptoms HENT: reports: Other (cold and cough) Neck: reports: No Symptoms Cardiovascular: reports: Shortness of Breath Respiratory: reports: Cough, SOB, Wheezing Gastrointestinal: reports: No Symptoms Musculoskeletal: reports: Muscle Weakness Neurological: reports: No Symptoms Physical Examination Vital Signs: Vital Signs Temperature 97.8 F 07/16/17 20:34 Pulse Rate 65 07/17/17 06:23 Respiratory Rate 18 07/17/17 06:23 Blood Pressure 126/65 07/17/17 06:23 O2 Sat by Pulse Oximetry (%) 98 07/17/17 06:23 Labs: CBC, BMP 07/16/17 20:50 07/16/17 22:24 Problem List - Problems (1) COPD (chronic obstructive pulmonary disease) Code(s): J44.9 - CHRONIC OBSTRUCTIVE PULMONARY DISEASE, UNSPECIFIED (2) Acute diastolic (congestive) heart failure Code(s): I50.31 - ACUTE DIASTOLIC (CONGESTIVE) HEART FAILURE (3) Elevated troponin Code(s): R74.8 - ABNORMAL LEVELS OF OTHER SERUM ENZYMES (4) Bronchiectasis Code(s): J47.9 - BRONCHIECTASIS, UNCOMPLICATED (5) Acute exacerbation of chronic obstructive pulmonary disease Code(s): J44.1 - CHRONIC OBSTRUCTIVE PULMONARY DISEASE W (ACUTE) EXACERBATION (6) CHF (congestive heart failure) Code(s): I50.9 - HEART FAILURE, UNSPECIFIED (7) Demand ischemia Code(s): I24.8 - OTHER FORMS OF ACUTE ISCHEMIC HEART DISEASE Assessment/Plan (1) COPD (chronic obstructive pulmonary disease) Code(s): J44.9 - CHRONIC OBSTRUCTIVE PULMONARY DISEASE, UNSPECIFIED (2) Acute diastolic (congestive) heart failure Code(s): I50.31 - ACUTE DIASTOLIC (CONGESTIVE) HEART FAILURE (3) Elevated troponin Code(s): R74.8 - ABNORMAL LEVELS OF OTHER SERUM ENZYMES (4) Bronchiectasis Code(s): J47.9 - BRONCHIECTASIS, UNCOMPLICATED (5) Acute exacerbation of chronic obstructive pulmonary disease Code(s): J44.1 - CHRONIC OBSTRUCTIVE PULMONARY DISEASE W (ACUTE) EXACERBATION (6) CHF (congestive heart failure) Code(s): I50.9 - HEART FAILURE, UNSPECIFIED (7) Demand ischemia Code(s): I24.8 - OTHER FORMS OF ACUTE ISCHEMIC HEART DISEASE Pt On IV lasix IV steroids IV Antibiotics as Pt has H/o Bronchiectasis
[2017-07-17] MEDS ORDERED: CEFTRIAXONE 1 GM in DEXTROSE 5%-WATER - 50 ML IVPB ONE (07:39)
[2017-07-17] MEDS ORDERED: CEFTRIAXONE 1 GM/50 ML BAG ONE (08:20)
[2017-07-17 08:46] LABS: BASO % 0.1 % (0-2.0); HEMATOCRIT 50.6 % (35.4-49); HEMOGLOBIN 17.7 GM/dL (11.7-16.9); LYMPH % 4.7 % (8-40); MCH 33.3 pg (25.7-33.7); MCHC 34.9 g/dl (32.0-35.9); MEAN CELL VOLUME 95.3 fl (80-96); MEAN PLT VOLUME 9.4 fl (7.5-11.1); MONO % 5.8 % (3.8-10.2); NEUT % 89.4 % (42.8-82.8); PLATELET COUNT 260 K/MM3 (134-434); RBC 5.31 M/mm3 (4.00-5.60); RDW 14.1 % (11.9-15.9); WHITE BLOOD COUNT 8.2 K/mm3 (4.0-10.0)
[2017-07-17 09:11] LABS: ANION GAP 14 (8-16); BLOOD UREA NITROGEN 32 mg/dL (7-18); CALCIUM 9.6 mg/dL (8.5-10.1); CHLORIDE 97 mmol/L (98-107); CO2 27 mmol/L (21-32); GLUCOSE,RANDOM 153 mg/dL (74-106); MAGNESIUM 2.1 mg/dL (1.8-2.4); POTASSIUM 4.3 mmol/L (3.5-5.1); SODIUM 138 mmol/L (136-145)
[2017-07-17] MEDS ORDERED: methylPREDNISolone NA SUCC 40 MG/1 ML VIAL ONE ×2 (09:17→17:27)
[2017-07-17 09:28] LABS: CREATININE 1.2 mg/dL (0.7-1.3); PHOSPHOROUS 3.5 mg/dL (2.5-4.9)
[2017-07-17] MEDS: FUROSEMIDE 40 MG/4 ML INJECTABLE VIAL IVPUSH SCH (10:52)
[2017-07-17] MEDS: LISINOPRIL 5 MG TABLET (FP) PO SCH ×2 (10:53→21:10)
[2017-07-17] MEDS ORDERED: FAMOTIDINE 20 MG/50 ML IVPB 20 MG/50 ML MG IVPB ONE (10:53)
[2017-07-17] MEDS: FAMOTIDINE 20 MG/50 ML IVPB 20 MG/50 ML MG IVPB SCH ×2 (10:53→21:10)
[2017-07-17] MEDS: MULTIVITAMINS (DAILY MVI) TABLET (FP) PO SCH (10:54)
[2017-07-17] MEDS: metoPROLOL SUCCINATE 25 MG TAB.SR.24H (FP) PO SCH (10:54)
[2017-07-17] MEDS: BUDESONIDE/FORMETEROL FUMARATE 160/4.5 mcg INHALER IH SCH ×2 (11:15→22:06)
--- NOTE | 2017-07-17 11:40 | EKG ---
Test Reason : Blood Pressure : / mmHG Vent. Rate : 082 BPM Atrial Rate : 082 BPM P-R Int : 178 ms QRS Dur : 088 ms QT Int : 348 ms P-R-T Axes : 070 -34 056 degrees QTc Int : 406 ms NORMAL SINUS RHYTHM LEFT AXIS DEVIATION NONSPECIFIC ST ABNORMALITY ABNORMAL ECG WHEN COMPARED WITH ECG OF 19-FEB-2017 15:11, ABERRANT CONDUCTION IS NO LONGER PRESENT Confirmed by MARK MERLOS, SUE ([id number]) on 07/17/2017 11:39:49 AM Referred By: Confirmed By:SUE FLORES MD
--- NOTE | 2017-07-17 15:08 | CON.PULM ---
Consult Consult Specialty:: PULMONARY Referred by:: Dr. Cassidy Reason for Consultation:: shortness of breath - History of Present Illness Chief Complaint: shortness of breath History of Present Illness: 87yo male with h/o HTN, COPD who presents with worsening shortness of breath x 6 days worsening over 1 day. Denies any chest pain or palpitations. No fevers, chills or sweats but does report some URI symptoms in the beginning. +cough nonproductive and wheezing. No sick contacts or recent travel. Also with some leg swelling without orthopnea. Maintained at home on symbicort. No home O2. He is a former heavy smoker, smoked 2 PPD x 50years, quit in 1998. 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 - History Source History Provided By: Patient, Medical Record Limitations to Obtaining History: No Limitations - Past Medical History Cardio/Vascular: Yes: HTN Pulmonary: Yes: COPD - Alcohol/Substance Use Hx Alcohol Use: No - Smoking History Smoking history: Former smoker Have you smoked in the past 12 months: No If you are a former smoker, when did you quit?: 1998 Home Medications - Allergies Allergies/Adverse Reactions: Allergies Allergy/AdvReac Type Severity Reaction Status Date / Time No Known Allergies Allergy Verified 07/16/17 20:33 - Home Medications Home Medications: Ambulatory Orders Budesonide/Formeterol Fumarate [SYMBICORT 160/4.5mcg -] 1 inh PO BID 02/24/17 Lisinopril 5 mg PO BID 02/25/17 Metoprolol Tartrate [Lopressor -] 25 mg PO DAILY 02/25/17 Montelukast Na [Singulair -] 10 mg PO HS 02/25/17 Multivitamin [Poly-Vitamin] 1 each PO DAILY 04/28/17 Review of Systems - Review of Systems Constitutional: reports: Malaise, Weakness. denies: Chills, Fever Eyes: denies: Recent Change in Vision HENT: denies: Nasal Congestion, Throat Pain Neck: denies: Stiffness, Tenderness Cardiovascular: reports: Edema, Shortness of Breath. denies: Chest Pain, Palpitations Respiratory: reports: Cough, Exercise Intolerance, SOB, Wheezing. denies: Hemoptysis Gastrointestinal: denies: Abdominal Pain, Nausea, Vomiting Genitourinary: denies: Dysuria, Hematuria Neurological: denies: Dizziness, Headache Physical Exam Vital Sings: Vital Signs Temperature 97.6 F 07/17/17 08:39 Pulse Rate 105 H 07/17/17 10:40 Respiratory Rate 22 07/17/17 10:40 Blood Pressure 140/79 07/17/17 10:40 O2 Sat by Pulse Oximetry (%) 98 07/17/17 10:40 Constitutional: Yes: Mild Distress (mildly tachypneic at rest) Eyes: Yes: Conjunctiva Clear, EOM Intact HENT: Yes: Atraumatic, Normocephalic Neck: Yes: Supple, Trachea Midline Cardiovascular: Yes: Regular Rate and Rhythm Respiratory: Yes: Rhonchi, Wheezes ...Clubbing: No Gastrointestinal: Yes: Normal Bowel Sounds, Soft. No: Tenderness Edema: No Labs: CBC, BMP 07/17/17 07:50 07/17/17 07:50 Imaging - Results Chest X-ray: Report Reviewed, Image Reviewed (no infiltrates) Problem List - Problems (1) Acute exacerbation of chronic obstructive pulmonary disease Code(s): J44.1 - CHRONIC OBSTRUCTIVE PULMONARY DISEASE W (ACUTE) EXACERBATION (2) Elevated troponin Code(s): R74.8 - ABNORMAL LEVELS OF OTHER SERUM ENZYMES (3) Demand ischemia Code(s): I24.8 - OTHER FORMS OF ACUTE ISCHEMIC HEART DISEASE (4) Acute diastolic (congestive) heart failure Code(s): I50.31 - ACUTE DIASTOLIC (CONGESTIVE) HEART FAILURE (5) HTN (hypertension) Code(s): I10 - ESSENTIAL (PRIMARY) HYPERTENSION Assessment/Plan Acute Hypoxic Respiratory Failure Acute COPD Exacerbation Acute Diastolic Heart Failure +Troponins likely Demand Ischemia HTN - IV medrol - inhaled bronchodilators standing and PRN - will give 5 day course of azithromycin - O2 to keep SpO2 >90% - lasix as needed - trend cardiac enzymes - DVT prophylaxis
[2017-07-17] MEDS ORDERED: ALBUTEROL SO4 0.083% IH SOL 2.5 MG/3 ML VIAL.NEB. NEB PRN (15:12)
--- NOTE | 2017-07-17 15:49 | CON.ID ---
Consult Consult Specialty:: infectious diseases Referred by:: Reason for Consultation:: coper hand,pneumonia - History of Present Illness Chief Complaint: sob History of Present Illness: 87yo male with h/o HTN, COPD known to me from the last admission coming to the hospital for SOB for a week 6 . Denies any chest pain or palpitations. No fevers, chills or sweats but does report some URI symptoms in the beginning. Patient mentions that he is having cough but no sputum production and also has been wheezing. Also with some leg swelling without orthopnea. Maintained at home on symbicort. No home O2. He is a former heavy smoker, smoked 2 PPD x 50years, quit in 1998. 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 patient on last admission had a very abd pneumonia which took quite some time to resolve - History Source History Provided By: Patient Limitations to Obtaining History: No Limitations - Past Medical History Cardio/Vascular: Yes: HTN Pulmonary: Yes: COPD - Alcohol/Substance Use Hx Alcohol Use: No - Smoking History Smoking history: Former smoker Have you smoked in the past 12 months: No If you are a former smoker, when did you quit?: 1998 Home Medications - Allergies Allergies/Adverse Reactions: Allergies Allergy/AdvReac Type Severity Reaction Status Date / Time No Known Allergies Allergy Verified 07/16/17 20:33 - Home Medications Home Medications: Ambulatory Orders Budesonide/Formeterol Fumarate [SYMBICORT 160/4.5mcg -] 1 inh PO BID 02/24/17 Lisinopril 5 mg PO BID 02/25/17 Metoprolol Tartrate [Lopressor -] 25 mg PO DAILY 02/25/17 Montelukast Na [Singulair -] 10 mg PO HS 02/25/17 Multivitamin [Poly-Vitamin] 1 each PO DAILY 04/28/17 Review of Systems - Review of Systems Constitutional: reports: No Symptoms Eyes: reports: No Symptoms HENT: reports: No Symptoms Neck: reports: No Symptoms Cardiovascular: reports: No Symptoms Respiratory: reports: Cough, SOB, SOB on Exertion, Wheezing Gastrointestinal: reports: No Symptoms Genitourinary: reports: No Symptoms Musculoskeletal: reports: No Symptoms Neurological: reports: No Symptoms Endocrine: reports: No Symptoms Hematology/Lymphatic: reports: No Symptoms Psychiatric: reports: No Symptoms Physical Exam Vital Signs: Vital Signs Temperature 97.6 F 07/17/17 08:39 Pulse Rate 105 H 07/17/17 10:40 Respiratory Rate 22 07/17/17 10:40 Blood Pressure 140/79 07/17/17 10:40 O2 Sat by Pulse Oximetry (%) 98 07/17/17 10:40 Constitutional: Yes: Calm, Mild Distress Eyes: Yes: Conjunctiva Clear HENT: Yes: Atraumatic Cardiovascular: Yes: Tachycardia, S1, S2 Respiratory: Yes: On Nasal O2, Poor Air Entry, Rhonchi, Other Gastrointestinal: Yes: Normal Bowel Sounds, Soft Musculoskeletal: Yes: WNL Extremities: Yes: WNL Neurological: Yes: Alert, Oriented Psychiatric: Yes: Alert, Oriented Labs: CBC, BMP 07/17/17 07:50 07/17/17 07:50 Imaging - Results Chest X-ray: Report Reviewed, Image Reviewed Assessment/Plan patient looks like to be in copd looking at this patients lab and xray i have low suspicion of pneumonia,but this patient can easily have one htn copd exacerebration sob r/o pna plan will give one dose of ceftriaxone patient started on zithro await for all cx results will see how patinet does and decide further mgmt
[2017-07-17] MEDS: AZITHROMYCIN IVPB 500 MG in DEXTROSE 5%-WATER - 250 ML IVPB SCH (17:32)
[2017-07-17] MEDS: ALBUTEROL SO4 2.5/IPRATROPIUM 0.5 INH SOL 3 ML VIAL.NEB. NEB SCH (20:50)
[2017-07-17] MEDS: MONTELUKAST NA 10 MG TABLET PO SCH (21:10)
[2017-07-17] MEDS ORDERED: FUROSEMIDE 40 MG/4 ML INJECTABLE VIAL IVPUSH ONE (21:15)
[2017-07-17] MEDS: ZOLPIDEM TARTRATE 5 MG TABLET PO PRN (22:06)
[2017-07-18 01:09] VITALS: BMI 23.2
[2017-07-18] MEDS: methylPREDNISolone NA SUCC 125 MG/2 ML VIAL IVPUSH SCH ×4 (02:05→21:11)
[2017-07-18] MEDS: HEPARIN NA (PORCINE) 5,000 UNITS/ML 1ML VIAL SQ SCH ×3 (05:30→21:11)
[2017-07-18] MEDS: ALBUTEROL SO4 2.5/IPRATROPIUM 0.5 INH SOL 3 ML VIAL.NEB. NEB SCH ×4 (07:33→20:30)
[2017-07-18] MEDS ORDERED: PT OWN MED DRAWER 7, Y5N ONE ×3 (09:15→20:38)
[2017-07-18] MEDS: FAMOTIDINE 20 MG/50 ML IVPB 20 MG/50 ML MG IVPB SCH ×2 (09:40→21:11)
[2017-07-18] MEDS: FUROSEMIDE 40 MG/4 ML INJECTABLE VIAL IVPUSH SCH (09:40)
[2017-07-18] MEDS: MULTIVITAMINS (DAILY MVI) TABLET (FP) PO SCH (09:40)
[2017-07-18] MEDS: metoPROLOL SUCCINATE 25 MG TAB.SR.24H (FP) PO SCH (09:40)
[2017-07-18] MEDS: LISINOPRIL 5 MG TABLET (FP) PO SCH ×2 (09:40→21:11)
[2017-07-18] MEDS: BUDESONIDE/FORMETEROL FUMARATE 160/4.5 mcg INHALER IH SCH ×2 (09:41→21:11)
[2017-07-18] MEDS: AZITHROMYCIN IVPB 500 MG in DEXTROSE 5%-WATER - 250 ML IVPB SCH (11:53)
--- NOTE | 2017-07-18 12:26 | PN ---
Progress Note, Physician History of Present Illness: PULMONARY ALERT,STILL C/O SOB,HYPOXIC - Current Medication List Current Medications: Active Medications Albuterol Sulfate (Ventolin 0.083% Nebulizer Soln -) 1 amp NEB Q4H PRN PRN Reason: SHORT OF BREATH/WHEEZING Albuterol/Ipratropium (Duoneb -) 1 amp NEB RQID [facility] Stop: 07/25/17 19:59 Last Admin: 07/18/17 11:09 Dose: 1 amp Budesonide/Formoterol Fumarate (Symbicort 160/4.5mcg -) 1 puff IH BID [facility] Last Admin: 07/18/17 09:41 Dose: 1 puff Furosemide (Lasix Injection -) 40 mg IVPUSH DAILY [facility] Last Admin: 07/18/17 09:40 Dose: 40 mg Heparin Sodium (Porcine) (Heparin -) 5,000 unit SQ TID [facility] Last Admin: 07/18/17 05:30 Dose: 5,000 unit Famotidine/Sodium Chloride (Pepcid 20 Mg Premixed Ivpb -) 20 mg in 50 mls @ 100 mls/hr IVPB BID [facility] Last Admin: 07/18/17 09:40 Dose: 100 mls/hr Azithromycin 500 mg/ Dextrose 250 mls @ 250 mls/hr IVPB DAILY [facility] Stop: 07/21/17 10:59 Last Admin: 07/18/17 11:53 Dose: 250 mls/hr Lisinopril (Prinivil) 5 mg PO BID [facility] Last Admin: 07/18/17 09:40 Dose: 5 mg Methylprednisolone Sodium Succinate (Solu-Medrol -) 60 mg IVPUSH Q6H-IV [facility] Last Admin: 07/18/17 09:39 Dose: 60 mg Metoprolol Succinate (Toprol Xl -) 25 mg PO DAILY [facility] Last Admin: 07/18/17 09:40 Dose: 25 mg Montelukast Sodium (Singulair -) 10 mg PO HS [facility] Last Admin: 07/17/17 21:10 Dose: 10 mg Multivitamins/Minerals/Vitamin C (Tab-A-Vit -) 1 tab PO DAILY [facility] Last Admin: 07/18/17 09:40 Dose: 1 tab Zolpidem Tartrate (Ambien -) 5 mg PO HS PRN PRN Reason: INSOMNIA Last Admin: 07/17/17 22:06 Dose: 5 mg - Objective Vital Signs: Vital Signs Temperature 98.1 F 07/18/17 11:26 Pulse Rate 104 H 07/18/17 11:26 Respiratory Rate 23 07/18/17 11:26 Blood Pressure 146/84 07/18/17 11:26 O2 Sat by Pulse Oximetry (%) 86 L 07/18/17 09:00 Constitutional: Yes: Well Nourished, Calm Eyes: Yes: WNL HENT: Yes: WNL Neck: Yes: WNL Cardiovascular: Yes: Regular Rate and Rhythm, S1, S2 Respiratory: Yes: Wheezes (BILATERAL WHEEZES) Gastrointestinal: Yes: Normal Bowel Sounds, Soft Extremities: Yes: WNL Edema: No Labs: CBC, BMP 07/17/17 07:50 07/17/17 07:50 Problem List - Problems (1) Acute hypoxemic respiratory failure Code(s): J96.01 - ACUTE RESPIRATORY FAILURE WITH HYPOXIA Assessment/Plan Problem List - Problems (1) Acute exacerbation of chronic obstructive pulmonary disease Code(s): J44.1 - CHRONIC OBSTRUCTIVE PULMONARY DISEASE W (ACUTE) EXACERBATION (2) Elevated troponin Code(s): R74.8 - ABNORMAL LEVELS OF OTHER SERUM ENZYMES (3) Demand ischemia Code(s): I24.8 - OTHER FORMS OF ACUTE ISCHEMIC HEART DISEASE (4) Acute diastolic (congestive) heart failure Code(s): I50.31 - ACUTE DIASTOLIC (CONGESTIVE) HEART FAILURE (5) HTN (hypertension) Code(s): I10 - ESSENTIAL (PRIMARY) HYPERTENSION Assessment/Plan Acute Hypoxic Respiratory Failure Acute COPD Exacerbation Acute Diastolic Heart Failure +Troponins likely Demand Ischemia HTN - IV medrol same dose - inhaled bronchodilators standing and PRN - 5 day course of azithromycin - O2 to keep SpO2 >90% - lasix prn - trend cardiac enzymes - DVT prophylaxis - chest ct DR MOSLEY
--- NOTE | 2017-07-18 15:03 | PN ---
Progress Note, Physician History of Present Illness: says he is feeling better not a lot of difference was able to eat - Current Medication List Current Medications: Active Medications Albuterol Sulfate (Ventolin 0.083% Nebulizer Soln -) 1 amp NEB Q4H PRN PRN Reason: SHORT OF BREATH/WHEEZING Albuterol/Ipratropium (Duoneb -) 1 amp NEB RQID [facility] Stop: 07/25/17 19:59 Last Admin: 07/18/17 11:09 Dose: 1 amp Budesonide/Formoterol Fumarate (Symbicort 160/4.5mcg -) 1 puff IH BID [facility] Last Admin: 07/18/17 09:41 Dose: 1 puff Furosemide (Lasix Injection -) 40 mg IVPUSH DAILY [facility] Last Admin: 07/18/17 09:40 Dose: 40 mg Heparin Sodium (Porcine) (Heparin -) 5,000 unit SQ TID [facility] Last Admin: 07/18/17 14:42 Dose: 5,000 unit Famotidine/Sodium Chloride (Pepcid 20 Mg Premixed Ivpb -) 20 mg in 50 mls @ 100 mls/hr IVPB BID [facility] Last Admin: 07/18/17 09:40 Dose: 100 mls/hr Azithromycin 500 mg/ Dextrose 250 mls @ 250 mls/hr IVPB DAILY [facility] Stop: 07/21/17 10:59 Last Admin: 07/18/17 11:53 Dose: 250 mls/hr Lisinopril (Prinivil) 5 mg PO BID [facility] Last Admin: 07/18/17 09:40 Dose: 5 mg Methylprednisolone Sodium Succinate (Solu-Medrol -) 60 mg IVPUSH Q6H-IV [facility] Last Admin: 07/18/17 14:42 Dose: 60 mg Metoprolol Succinate (Toprol Xl -) 25 mg PO DAILY [facility] Last Admin: 07/18/17 09:40 Dose: 25 mg Montelukast Sodium (Singulair -) 10 mg PO HS [facility] Last Admin: 07/17/17 21:10 Dose: 10 mg Multivitamins/Minerals/Vitamin C (Tab-A-Vit -) 1 tab PO DAILY [facility] Last Admin: 07/18/17 09:40 Dose: 1 tab Zolpidem Tartrate (Ambien -) 5 mg PO HS PRN PRN Reason: INSOMNIA Last Admin: 07/17/17 22:06 Dose: 5 mg - Objective Vital Signs: Vital Signs Temperature 98.1 F 07/18/17 11:26 Pulse Rate 104 H 07/18/17 11:26 Respiratory Rate 23 07/18/17 11:26 Blood Pressure 146/84 07/18/17 11:26 O2 Sat by Pulse Oximetry (%) 86 L 07/18/17 09:00 Constitutional: Yes: No Distress, Calm Cardiovascular: Yes: S1, S2 Respiratory: Yes: Regular, Poor Air Entry Gastrointestinal: Yes: Normal Bowel Sounds, Soft Musculoskeletal: Yes: WNL Extremities: Yes: WNL Neurological: Yes: Alert, Oriented Psychiatric: Yes: Alert, Oriented Labs: CBC, BMP 07/17/17 07:50 07/17/17 07:50 Assessment/Plan patient looks like to be in copd looking at this patients lab and xray i have low suspicion of pneumonia,but this patient can easily have one htn copd exacerebration sob r/o pna plan continue zithro change to oral tomorrow incentive camacho rest as per primary team
[2017-07-18] MEDS: ZOLPIDEM TARTRATE 5 MG TABLET PO PRN (20:43)
[2017-07-18] MEDS: MONTELUKAST NA 10 MG TABLET PO SCH (21:11)
--- NOTE | 2017-07-18 22:30 | PN ---
Progress Note, Physician Chief Complaint: SOB/Cough/Wheezing is better now History of Present Illness: 87 year old male with a past medical history significant for COPD, HTN who presented to the ED with SOB, wheezing Feels better today. No Fever No abd pain - Current Medication List Current Medications: Active Medications Albuterol Sulfate (Ventolin 0.083% Nebulizer Soln -) 1 amp NEB Q4H PRN PRN Reason: SHORT OF BREATH/WHEEZING Albuterol/Ipratropium (Duoneb -) 1 amp NEB RQID [facility] Stop: 07/25/17 19:59 Last Admin: 07/18/17 20:30 Dose: 1 amp Budesonide/Formoterol Fumarate (Symbicort 160/4.5mcg -) 1 puff IH BID [facility] Last Admin: 07/18/17 21:11 Dose: 1 puff Furosemide (Lasix Injection -) 40 mg IVPUSH DAILY [facility] Last Admin: 07/18/17 09:40 Dose: 40 mg Heparin Sodium (Porcine) (Heparin -) 5,000 unit SQ TID [facility] Last Admin: 07/18/17 21:11 Dose: 5,000 unit Famotidine/Sodium Chloride (Pepcid 20 Mg Premixed Ivpb -) 20 mg in 50 mls @ 100 mls/hr IVPB BID [facility] Last Admin: 07/18/17 21:11 Dose: 100 mls/hr Azithromycin 500 mg/ Dextrose 250 mls @ 250 mls/hr IVPB DAILY [facility] Stop: 07/21/17 10:59 Last Admin: 07/18/17 11:53 Dose: 250 mls/hr Lisinopril (Prinivil) 5 mg PO BID [facility] Last Admin: 07/18/17 21:11 Dose: 5 mg Methylprednisolone Sodium Succinate (Solu-Medrol -) 60 mg IVPUSH Q6H-IV [facility] Last Admin: 07/18/17 21:11 Dose: 60 mg Metoprolol Succinate (Toprol Xl -) 25 mg PO DAILY [facility] Last Admin: 07/18/17 09:40 Dose: 25 mg Montelukast Sodium (Singulair -) 10 mg PO HS [facility] Last Admin: 07/18/17 21:11 Dose: 10 mg Multivitamins/Minerals/Vitamin C (Tab-A-Vit -) 1 tab PO DAILY [facility] Last Admin: 07/18/17 09:40 Dose: 1 tab Zolpidem Tartrate (Ambien -) 5 mg PO HS PRN PRN Reason: INSOMNIA Last Admin: 07/18/17 20:43 Dose: 5 mg - Objective Vital Signs: Vital Signs Temperature 98.1 F 07/18/17 18:17 Pulse Rate 82 07/18/17 18:17 Respiratory Rate 20 07/18/17 18:17 Blood Pressure 131/66 07/18/17 18:17 O2 Sat by Pulse Oximetry (%) 86 L 07/18/17 09:00 Constitutional: Yes: Anxious Eyes: Yes: Conjunctiva Clear, EOM Intact HENT: Yes: Atraumatic, Normocephalic Neck: Yes: Supple, Trachea Midline Cardiovascular: Yes: Regular Rate and Rhythm, S1, S2 Respiratory: Yes: Regular, CTA Bilaterally, Rales, Rhonchi Gastrointestinal: Yes: Normal Bowel Sounds, Soft ...Rectal Exam: Yes: Deferred Musculoskeletal: Yes: Joint Stiffness Edema: No Labs: CBC, BMP 07/17/17 07:50 07/17/17 07:50 Problem List - Problems (1) Acute exacerbation of chronic obstructive pulmonary disease Code(s): J44.1 - CHRONIC OBSTRUCTIVE PULMONARY DISEASE W (ACUTE) EXACERBATION (2) Acute diastolic (congestive) heart failure Code(s): I50.31 - ACUTE DIASTOLIC (CONGESTIVE) HEART FAILURE (3) Bronchiectasis Code(s): J47.9 - BRONCHIECTASIS, UNCOMPLICATED (4) Demand ischemia Code(s): I24.8 - OTHER FORMS OF ACUTE ISCHEMIC HEART DISEASE (5) Elevated troponin Code(s): R74.8 - ABNORMAL LEVELS OF OTHER SERUM ENZYMES (6) CHF (congestive heart failure) Code(s): I50.9 - HEART FAILURE, UNSPECIFIED (7) Acute hypoxemic respiratory failure Code(s): J96.01 - ACUTE RESPIRATORY FAILURE WITH HYPOXIA (8) Emphysema of lung Code(s): J43.9 - EMPHYSEMA, UNSPECIFIED (9) HTN (hypertension) Code(s): I10 - ESSENTIAL (PRIMARY) HYPERTENSION (10) Anxiety Code(s): F41.9 - ANXIETY DISORDER, UNSPECIFIED Assessment/Plan (1) COPD (chronic obstructive pulmonary disease) Code(s): J44.9 - CHRONIC OBSTRUCTIVE PULMONARY DISEASE, UNSPECIFIED (2) Acute diastolic (congestive) heart failure Code(s): I50.31 - ACUTE DIASTOLIC (CONGESTIVE) HEART FAILURE (3) Elevated troponin Code(s): R74.8 - ABNORMAL LEVELS OF OTHER SERUM ENZYMES (4) Bronchiectasis Code(s): J47.9 - BRONCHIECTASIS, UNCOMPLICATED (5) Acute exacerbation of chronic obstructive pulmonary disease Code(s): J44.1 - CHRONIC OBSTRUCTIVE PULMONARY DISEASE W (ACUTE) EXACERBATION (6) CHF (congestive heart failure) Code(s): I50.9 - HEART FAILURE, UNSPECIFIED (7) Demand ischemia Code(s): I24.8 - OTHER FORMS OF ACUTE ISCHEMIC HEART DISEASE Pt On IV lasix IV steroids IV Antibiotics as Pt has H/o Bronchiectasis ID FU and Pul Fu appereciated
[2017-07-19] MEDS: methylPREDNISolone NA SUCC 125 MG/2 ML VIAL IVPUSH SCH ×4 (03:09→21:16)
[2017-07-19] MEDS: HEPARIN NA (PORCINE) 5,000 UNITS/ML 1ML VIAL SQ SCH ×3 (05:48→21:16)
[2017-07-19 07:33] LABS: BASO % 0.1 % (0-2.0); HEMATOCRIT 50.4 % (35.4-49); HEMOGLOBIN 17.1 GM/dL (11.7-16.9); LYMPH % 3.4 % (8-40); MCH 32.8 pg (25.7-33.7); MEAN CELL VOLUME 96.4 fl (80-96); MONO % 5.7 % (3.8-10.2); NEUT % 90.8 % (42.8-82.8); PLATELET COUNT 290 K/MM3 (134-434); RBC 5.23 M/mm3 (4.00-5.60); RDW 14.2 % (11.9-15.9); WHITE BLOOD COUNT 12.5 K/mm3 (4.0-10.0)
[2017-07-19 07:51] LABS: CALCIUM 8.7 mg/dL (8.5-10.1); CHLORIDE 95 mmol/L (98-107); POTASSIUM 4.1 mmol/L (3.5-5.1); SODIUM 135 mmol/L (136-145)
[2017-07-19 07:54] LABS: ANION GAP 12 (8-16); BLOOD UREA NITROGEN 72 mg/dL (7-18); CO2 28 mmol/L (21-32); CREATININE 2.4 mg/dL (0.7-1.3); GLUCOSE,RANDOM 154 mg/dL (74-106)
[2017-07-19] MEDS: ALBUTEROL SO4 2.5/IPRATROPIUM 0.5 INH SOL 3 ML VIAL.NEB. NEB SCH ×4 (08:35→20:25)
[2017-07-19] MEDS ORDERED: PT OWN MED DRAWER 7, Y5N ONE ×2 (09:47→20:26)
[2017-07-19] MEDS: MULTIVITAMINS (DAILY MVI) TABLET (FP) PO SCH (10:00)
[2017-07-19] MEDS: metoPROLOL SUCCINATE 25 MG TAB.SR.24H (FP) PO SCH (10:00)
[2017-07-19] MEDS: LISINOPRIL 5 MG TABLET (FP) PO SCH ×2 (10:00→21:16)
[2017-07-19] MEDS: BUDESONIDE/FORMETEROL FUMARATE 160/4.5 mcg INHALER IH SCH ×2 (10:00→21:17)
[2017-07-19] MEDS: FAMOTIDINE 20 MG/50 ML IVPB 20 MG/50 ML MG IVPB SCH ×2 (10:00→21:16)
[2017-07-19] MEDS: FUROSEMIDE 40 MG/4 ML INJECTABLE VIAL IVPUSH SCH (10:02)
[2017-07-19] MEDS: AZITHROMYCIN IVPB 500 MG in DEXTROSE 5%-WATER - 250 ML IVPB SCH (10:02)
[2017-07-19] MEDS ORDERED: cefTRIAXone SODIUM 1 GM VIAL ONE (14:53)
[2017-07-19] MEDS ORDERED: DEXTROSE 5%-WATER - 50 ML IVPB ONE (14:53)
[2017-07-19] MEDS: CEFTRIAXONE 1 GM in DEXTROSE 5%-WATER - 50 ML IVPB SCH (14:55)
--- NOTE | 2017-07-19 15:31 | PN ---
Progress Note (short form) - Note Progress Note: PULMONARY States breathing is improving. Less cough and wheezing. c/o dry eyes. Last Vital Signs Temp Pulse Resp BP Pulse Ox 98.4 F 94 H 19 118/71 95 07/19/17 09:51 07/19/17 09:51 07/19/17 09:51 07/19/17 09:51 07/19/17 09:51 Gen: NAD at rest Heart: RRR Lung: distant breath sounds, scattered rhonchi Abd: soft, nontender Ext: no edema CBC, BMP 07/19/17 06:00 07/19/17 06:00 Active Medications Albuterol Sulfate (Ventolin 0.083% Nebulizer Soln -) 1 amp NEB Q4H PRN PRN Reason: SHORT OF BREATH/WHEEZING Albuterol/Ipratropium (Duoneb -) 1 amp NEB RQID [facility] Stop: 07/25/17 19:59 Last Admin: 07/19/17 12:41 Dose: 1 amp Budesonide/Formoterol Fumarate (Symbicort 160/4.5mcg -) 1 puff IH BID [facility] Last Admin: 07/19/17 10:00 Dose: 1 puff Furosemide (Lasix Injection -) 40 mg IVPUSH DAILY [facility] Last Admin: 07/19/17 10:02 Dose: 40 mg Heparin Sodium (Porcine) (Heparin -) 5,000 unit SQ TID [facility] Last Admin: 07/19/17 14:51 Dose: 5,000 unit Famotidine/Sodium Chloride (Pepcid 20 Mg Premixed Ivpb -) 20 mg in 50 mls @ 100 mls/hr IVPB BID [facility] Last Admin: 07/19/17 10:00 Dose: 100 mls/hr Azithromycin 500 mg/ Dextrose 250 mls @ 250 mls/hr IVPB DAILY [facility] Stop: 07/21/17 10:59 Last Admin: 07/19/17 10:02 Dose: 250 mls/hr Ceftriaxone Sodium 1 gm/ (Dextrose) 50 mls @ 100 mls/hr IVPB DAILY [facility] Last Admin: 07/19/17 14:55 Dose: 100 mls/hr Lisinopril (Prinivil) 5 mg PO BID [facility] Last Admin: 07/19/17 10:00 Dose: 5 mg Methylprednisolone Sodium Succinate (Solu-Medrol -) 60 mg IVPUSH Q6H-IV [facility] Last Admin: 07/19/17 14:51 Dose: 60 mg Metoprolol Succinate (Toprol Xl -) 25 mg PO DAILY [facility] Last Admin: 07/19/17 10:00 Dose: 25 mg Montelukast Sodium (Singulair -) 10 mg PO HS [facility] Last Admin: 07/18/17 21:11 Dose: 10 mg Multivitamins/Minerals/Vitamin C (Tab-A-Vit -) 1 tab PO DAILY [facility] Last Admin: 07/19/17 10:00 Dose: 1 tab Zolpidem Tartrate (Ambien -) 5 mg PO HS PRN PRN Reason: INSOMNIA Last Admin: 07/18/17 20:43 Dose: 5 mg A/P Acute Hypoxic Respiratory Failure Acute COPD Exacerbation Acute Diastolic Heart Failure +Troponins likely Demand Ischemia HTN - will decrease medrol to 40mg q6h - inhaled bronchodilators standing and PRN - 5 day course of azithromycin - O2 to keep SpO2 >90% - lasix as needed - will give artificial tears - DVT prophylaxis - when ready for discharge, check ambulatory SpO2 on room air to assess for home O2 Problem List - Problems (1) Acute exacerbation of chronic obstructive pulmonary disease Code(s): J44.1 - CHRONIC OBSTRUCTIVE PULMONARY DISEASE W (ACUTE) EXACERBATION (2) Elevated troponin Code(s): R74.8 - ABNORMAL LEVELS OF OTHER SERUM ENZYMES (3) Demand ischemia Code(s): I24.8 - OTHER FORMS OF ACUTE ISCHEMIC HEART DISEASE (4) Acute diastolic (congestive) heart failure Code(s): I50.31 - ACUTE DIASTOLIC (CONGESTIVE) HEART FAILURE (5) HTN (hypertension) Code(s): I10 - ESSENTIAL (PRIMARY) HYPERTENSION
--- NOTE | 2017-07-19 17:36 | PN ---
Progress Note, Physician History of Present Illness: Pt seen and examined, events noted. Pt states he is feeling slightly less short of breath. No productive cough, remains afebrile. No other specific complaints. - Current Medication List Current Medications: Active Medications Albuterol Sulfate (Ventolin 0.083% Nebulizer Soln -) 1 amp NEB Q4H PRN PRN Reason: SHORT OF BREATH/WHEEZING Albuterol/Ipratropium (Duoneb -) 1 amp NEB RQID [facility] Stop: 07/25/17 19:59 Last Admin: 07/19/17 12:41 Dose: 1 amp Artificial Tears (Artificial Tears) 1 drop OU QID PRN PRN Reason: DRY EYES Budesonide/Formoterol Fumarate (Symbicort 160/4.5mcg -) 1 puff IH BID [facility] Last Admin: 07/19/17 10:00 Dose: 1 puff Furosemide (Lasix Injection -) 40 mg IVPUSH DAILY [facility] Last Admin: 07/19/17 10:02 Dose: 40 mg Heparin Sodium (Porcine) (Heparin -) 5,000 unit SQ TID [facility] Last Admin: 07/19/17 14:51 Dose: 5,000 unit Famotidine/Sodium Chloride (Pepcid 20 Mg Premixed Ivpb -) 20 mg in 50 mls @ 100 mls/hr IVPB BID [facility] Last Admin: 07/19/17 10:00 Dose: 100 mls/hr Azithromycin 500 mg/ Dextrose 250 mls @ 250 mls/hr IVPB DAILY [facility] Stop: 07/21/17 10:59 Last Admin: 07/19/17 10:02 Dose: 250 mls/hr Ceftriaxone Sodium 1 gm/ (Dextrose) 50 mls @ 100 mls/hr IVPB DAILY [facility] Last Admin: 07/19/17 14:55 Dose: 100 mls/hr Lisinopril (Prinivil) 5 mg PO BID [facility] Last Admin: 07/19/17 10:00 Dose: 5 mg Methylprednisolone Sodium Succinate (Solu-Medrol -) 40 mg IVPUSH Q6H-IV [facility] Metoprolol Succinate (Toprol Xl -) 25 mg PO DAILY [facility] Last Admin: 07/19/17 10:00 Dose: 25 mg Montelukast Sodium (Singulair -) 10 mg PO HS [facility] Last Admin: 07/18/17 21:11 Dose: 10 mg Multivitamins/Minerals/Vitamin C (Tab-A-Vit -) 1 tab PO DAILY [facility] Last Admin: 07/19/17 10:00 Dose: 1 tab Zolpidem Tartrate (Ambien -) 5 mg PO HS PRN PRN Reason: INSOMNIA Last Admin: 07/18/17 20:43 Dose: 5 mg - Objective Vital Signs: Vital Signs Temperature 98.4 F 07/19/17 09:51 Pulse Rate 94 H 07/19/17 09:51 Respiratory Rate 19 07/19/17 09:51 Blood Pressure 118/71 07/19/17 09:51 O2 Sat by Pulse Oximetry (%) 95 07/19/17 09:51 Constitutional: Yes: No Distress Cardiovascular: Yes: Regular Rate and Rhythm Respiratory: Yes: Diminished Gastrointestinal: Yes: Normal Bowel Sounds, Soft Genitourinary: Yes: WNL Musculoskeletal: Yes: WNL Edema: LLE: 1+, RLE: 1+ Integumentary: Yes: WNL Neurological: Yes: Alert, Oriented Labs: CBC, BMP 07/19/17 06:00 07/19/17 06:00 - ....Imaging Chest X-ray: Report Reviewed Problem List - Problems (1) CHF (congestive heart failure) Code(s): I50.9 - HEART FAILURE, UNSPECIFIED (2) Acute exacerbation of chronic obstructive pulmonary disease Code(s): J44.1 - CHRONIC OBSTRUCTIVE PULMONARY DISEASE W (ACUTE) EXACERBATION (3) Acute hypoxemic respiratory failure Code(s): J96.01 - ACUTE RESPIRATORY FAILURE WITH HYPOXIA (4) HTN (hypertension) Code(s): I10 - ESSENTIAL (PRIMARY) HYPERTENSION (5) Demand ischemia Code(s): I24.8 - OTHER FORMS OF ACUTE ISCHEMIC HEART DISEASE Assessment/Plan 87 y.o. male with PMH of COPD, longtime smoker, HTN admitted for worsened SOB for one week Pt still short of breath Remains afebrile Acute COPD Exacerbation Acute hypoxemic respiratory failure - continue antibiotics for now - wbc mildly elevated, on steroids - continue monitor
[2017-07-19] MEDS: ARTIFICIAL TEARS (POLYVINYL ALCOHOL 1.4%) OPTH DROPS OU PRN (17:45)
[2017-07-19] MEDS: MONTELUKAST NA 10 MG TABLET PO SCH (21:16)
--- NOTE | 2017-07-19 23:38 | PN ---
Progress Note, Physician Chief Complaint: SOB/Cough/Wheezing is better History of Present Illness: 87 year old male with a past medical history significant for COPD, HTN who presented to the ED with SOB, wheezing Feels better today. No Fever No abd pain Pt is Improving - Current Medication List Current Medications: Active Medications Albuterol Sulfate (Ventolin 0.083% Nebulizer Soln -) 1 amp NEB Q4H PRN PRN Reason: SHORT OF BREATH/WHEEZING Albuterol/Ipratropium (Duoneb -) 1 amp NEB RQID [facility] Stop: 07/25/17 19:59 Last Admin: 07/19/17 20:25 Dose: 1 amp Artificial Tears (Artificial Tears) 1 drop OU QID PRN PRN Reason: DRY EYES Last Admin: 07/19/17 17:45 Dose: 1 drop Budesonide/Formoterol Fumarate (Symbicort 160/4.5mcg -) 1 puff IH BID [facility] Last Admin: 07/19/17 21:17 Dose: 1 puff Furosemide (Lasix Injection -) 40 mg IVPUSH DAILY [facility] Last Admin: 07/19/17 10:02 Dose: 40 mg Heparin Sodium (Porcine) (Heparin -) 5,000 unit SQ TID [facility] Last Admin: 07/19/17 21:16 Dose: 5,000 unit Famotidine/Sodium Chloride (Pepcid 20 Mg Premixed Ivpb -) 20 mg in 50 mls @ 100 mls/hr IVPB BID [facility] Last Admin: 07/19/17 21:16 Dose: 100 mls/hr Azithromycin 500 mg/ Dextrose 250 mls @ 250 mls/hr IVPB DAILY [facility] Stop: 07/21/17 10:59 Last Admin: 07/19/17 10:02 Dose: 250 mls/hr Ceftriaxone Sodium 1 gm/ (Dextrose) 50 mls @ 100 mls/hr IVPB DAILY [facility] Last Admin: 07/19/17 14:55 Dose: 100 mls/hr Lisinopril (Prinivil) 5 mg PO BID [facility] Last Admin: 07/19/17 21:16 Dose: 5 mg Methylprednisolone Sodium Succinate (Solu-Medrol -) 40 mg IVPUSH Q6H-IV [facility] Last Admin: 07/19/17 21:16 Dose: 40 mg Metoprolol Succinate (Toprol Xl -) 25 mg PO DAILY [facility] Last Admin: 07/19/17 10:00 Dose: 25 mg Montelukast Sodium (Singulair -) 10 mg PO HS [facility] Last Admin: 07/19/17 21:16 Dose: 10 mg Multivitamins/Minerals/Vitamin C (Tab-A-Vit -) 1 tab PO DAILY [facility] Last Admin: 07/19/17 10:00 Dose: 1 tab Zolpidem Tartrate (Ambien -) 5 mg PO HS PRN PRN Reason: INSOMNIA Last Admin: 07/18/17 20:43 Dose: 5 mg - Objective Vital Signs: Vital Signs Temperature 97.8 F 07/19/17 18:20 Pulse Rate 72 07/19/17 18:20 Respiratory Rate 20 07/19/17 18:20 Blood Pressure 122/62 07/19/17 18:20 O2 Sat by Pulse Oximetry (%) 95 07/19/17 09:51 Constitutional: Yes: No Distress Eyes: Yes: Conjunctiva Clear, EOM Intact HENT: Yes: Atraumatic, Normocephalic Neck: Yes: Supple, Trachea Midline Cardiovascular: Yes: Regular Rate and Rhythm, S1, S2 Respiratory: Yes: Regular, CTA Bilaterally Gastrointestinal: Yes: Normal Bowel Sounds, Soft Musculoskeletal: Yes: Joint Stiffness Edema: No Neurological: Yes: Alert, Oriented, Cran Nerves II-XII Intact Labs: CBC, BMP 07/19/17 06:00 07/19/17 06:00 Problem List - Problems (1) COPD (chronic obstructive pulmonary disease) Code(s): J44.9 - CHRONIC OBSTRUCTIVE PULMONARY DISEASE, UNSPECIFIED (2) Acute diastolic (congestive) heart failure Code(s): I50.31 - ACUTE DIASTOLIC (CONGESTIVE) HEART FAILURE (3) Bronchiectasis Code(s): J47.9 - BRONCHIECTASIS, UNCOMPLICATED (4) Elevated troponin Code(s): R74.8 - ABNORMAL LEVELS OF OTHER SERUM ENZYMES (5) Demand ischemia Code(s): I24.8 - OTHER FORMS OF ACUTE ISCHEMIC HEART DISEASE (6) Acute hypoxemic respiratory failure Code(s): J96.01 - ACUTE RESPIRATORY FAILURE WITH HYPOXIA (7) Emphysema of lung Code(s): J43.9 - EMPHYSEMA, UNSPECIFIED (8) HTN (hypertension) Code(s): I10 - ESSENTIAL (PRIMARY) HYPERTENSION (9) Anxiety Code(s): F41.9 - ANXIETY DISORDER, UNSPECIFIED Assessment/Plan (1) COPD (chronic obstructive pulmonary disease) Code(s): J44.9 - CHRONIC OBSTRUCTIVE PULMONARY DISEASE, UNSPECIFIED (2) Acute diastolic (congestive) heart failure Code(s): I50.31 - ACUTE DIASTOLIC (CONGESTIVE) HEART FAILURE (3) Elevated troponin Code(s): R74.8 - ABNORMAL LEVELS OF OTHER SERUM ENZYMES (4) Bronchiectasis Code(s): J47.9 - BRONCHIECTASIS, UNCOMPLICATED (5) Acute exacerbation of chronic obstructive pulmonary disease Code(s): J44.1 - CHRONIC OBSTRUCTIVE PULMONARY DISEASE W (ACUTE) EXACERBATION (6) CHF (congestive heart failure) Code(s): I50.9 - HEART FAILURE, UNSPECIFIED (7) Demand ischemia Code(s): I24.8 - OTHER FORMS OF ACUTE ISCHEMIC HEART DISEASE Pt On IV lasix IV steroids IV Antibiotics as Pt has H/o Bronchiectasis ID FU and Pul Fu appereciated
[2017-07-20] MEDS: methylPREDNISolone NA SUCC 125 MG/2 ML VIAL IVPUSH SCH ×2 (02:06→09:58)
[2017-07-20] MEDS: HEPARIN NA (PORCINE) 5,000 UNITS/ML 1ML VIAL SQ SCH ×3 (05:19→21:00)
[2017-07-20] MEDS: ALBUTEROL SO4 2.5/IPRATROPIUM 0.5 INH SOL 3 ML VIAL.NEB. NEB SCH ×4 (08:05→20:00)
[2017-07-20 08:11] LABS: ANION GAP 11 (8-16); BLOOD UREA NITROGEN 80 mg/dL (7-18); CALCIUM 8.8 mg/dL (8.5-10.1); CHLORIDE 92 mmol/L (98-107); CO2 29 mmol/L (21-32); CREATININE 2.3 mg/dL (0.7-1.3); GLUCOSE,RANDOM 148 mg/dL (74-106); HEMATOCRIT 48.8 % (35.4-49); HEMOGLOBIN 16.6 GM/dL (11.7-16.9); LYMPH % 2.9 % (8-40); MCH 32.6 pg (25.7-33.7); MEAN PLT VOLUME 9.4 fl (7.5-11.1); MONO % 3.7 % (3.8-10.2); NEUT % 93.4 % (42.8-82.8); PLATELET COUNT 274 K/MM3 (134-434); POTASSIUM 3.8 mmol/L (3.5-5.1); RBC 5.08 M/mm3 (4.00-5.60); RDW 13.8 % (11.9-15.9); SODIUM 132 mmol/L (136-145); WHITE BLOOD COUNT 11.2 K/mm3 (4.0-10.0)
[2017-07-20] MEDS ORDERED: cefTRIAXone SODIUM 1 GM VIAL ONE (09:29)
[2017-07-20] MEDS ORDERED: DEXTROSE 5%-WATER - 50 ML IVPB ONE (09:29)
[2017-07-20] MEDS ORDERED: PT OWN MED DRAWER 7, Y5N ONE (09:29)
[2017-07-20] MEDS: BUDESONIDE/FORMETEROL FUMARATE 160/4.5 mcg INHALER IH SCH ×2 (09:56→21:00)
[2017-07-20] MEDS: ARTIFICIAL TEARS (POLYVINYL ALCOHOL 1.4%) OPTH DROPS OU PRN (09:57)
[2017-07-20] MEDS: MULTIVITAMINS (DAILY MVI) TABLET (FP) PO SCH (09:58)
[2017-07-20] MEDS: FUROSEMIDE 40 MG/4 ML INJECTABLE VIAL IVPUSH SCH (09:58)
[2017-07-20] MEDS: LISINOPRIL 5 MG TABLET (FP) PO SCH ×2 (09:58→21:00)
[2017-07-20] MEDS: metoPROLOL SUCCINATE 25 MG TAB.SR.24H (FP) PO SCH (09:58)
[2017-07-20] MEDS: AZITHROMYCIN IVPB 500 MG in DEXTROSE 5%-WATER - 250 ML IVPB SCH (09:59)
[2017-07-20] MEDS: FAMOTIDINE 20 MG/50 ML IVPB 20 MG/50 ML MG IVPB SCH ×2 (09:59→21:00)
[2017-07-20] MEDS: CEFTRIAXONE 1 GM in DEXTROSE 5%-WATER - 50 ML IVPB SCH (09:59)
--- NOTE | 2017-07-20 11:19 | PN ---
Progress Note, Physician Chief Complaint: SOB/Cough/Wheezing History of Present Illness: 87 year old male with a past medical history significant for COPD, HTN who presented to the ED with SOB, wheezing x 1 week. Feels better today. No fever - Current Medication List Current Medications: Active Medications Albuterol Sulfate (Ventolin 0.083% Nebulizer Soln -) 1 amp NEB Q4H PRN PRN Reason: SHORT OF BREATH/WHEEZING Albuterol/Ipratropium (Duoneb -) 1 amp NEB RQID [facility] Stop: 07/25/17 19:59 Last Admin: 07/20/17 08:05 Dose: 1 amp Artificial Tears (Artificial Tears) 1 drop OU QID PRN PRN Reason: DRY EYES Last Admin: 07/20/17 09:57 Dose: 1 drop Budesonide/Formoterol Fumarate (Symbicort 160/4.5mcg -) 1 puff IH BID [facility] Last Admin: 07/20/17 09:56 Dose: 1 puff Furosemide (Lasix Injection -) 40 mg IVPUSH DAILY [facility] Last Admin: 07/20/17 09:58 Dose: 40 mg Heparin Sodium (Porcine) (Heparin -) 5,000 unit SQ TID [facility] Last Admin: 07/20/17 05:19 Dose: 5,000 unit Famotidine/Sodium Chloride (Pepcid 20 Mg Premixed Ivpb -) 20 mg in 50 mls @ 100 mls/hr IVPB BID [facility] Last Admin: 07/20/17 09:59 Dose: 100 mls/hr Azithromycin 500 mg/ Dextrose 250 mls @ 250 mls/hr IVPB DAILY [facility] Stop: 07/21/17 10:59 Last Admin: 07/20/17 09:59 Dose: 250 mls/hr Ceftriaxone Sodium 1 gm/ (Dextrose) 50 mls @ 100 mls/hr IVPB DAILY [facility] Last Admin: 07/20/17 09:59 Dose: 100 mls/hr Lisinopril (Prinivil) 5 mg PO BID [facility] Last Admin: 07/20/17 09:58 Dose: 5 mg Methylprednisolone Sodium Succinate (Solu-Medrol -) 40 mg IVPUSH Q6H-IV [facility] Last Admin: 07/20/17 09:58 Dose: 40 mg Metoprolol Succinate (Toprol Xl -) 25 mg PO DAILY [facility] Last Admin: 07/20/17 09:58 Dose: 25 mg Montelukast Sodium (Singulair -) 10 mg PO HS [facility] Last Admin: 07/19/17 21:16 Dose: 10 mg Multivitamins/Minerals/Vitamin C (Tab-A-Vit -) 1 tab PO DAILY [facility] Last Admin: 07/20/17 09:58 Dose: 1 tab Zolpidem Tartrate (Ambien -) 5 mg PO HS PRN PRN Reason: INSOMNIA Last Admin: 07/18/17 20:43 Dose: 5 mg - Objective Vital Signs: Vital Signs Temperature 98 F 07/20/17 09:00 Pulse Rate 98 H 07/20/17 09:00 Respiratory Rate 20 07/20/17 09:00 Blood Pressure 137/83 07/20/17 09:00 O2 Sat by Pulse Oximetry (%) 96 07/19/17 21:00 Constitutional: Yes: Anxious Eyes: Yes: Conjunctiva Clear, EOM Intact HENT: Yes: Atraumatic, Normocephalic Neck: Yes: Supple, Trachea Midline Cardiovascular: Yes: Regular Rate and Rhythm, S1, S2 Respiratory: Yes: Regular, CTA Bilaterally Gastrointestinal: Yes: Normal Bowel Sounds, Soft Edema: No Peripheral Pulses WNL: No Neurological: Yes: Alert, Oriented, Cran Nerves II-XII Intact Labs: CBC, BMP 07/20/17 06:00 07/20/17 06:00 Problem List - Problems (1) COPD (chronic obstructive pulmonary disease) Code(s): J44.9 - CHRONIC OBSTRUCTIVE PULMONARY DISEASE, UNSPECIFIED (2) Acute diastolic (congestive) heart failure Code(s): I50.31 - ACUTE DIASTOLIC (CONGESTIVE) HEART FAILURE (3) Bronchiectasis Code(s): J47.9 - BRONCHIECTASIS, UNCOMPLICATED (4) Elevated troponin Code(s): R74.8 - ABNORMAL LEVELS OF OTHER SERUM ENZYMES (5) Demand ischemia Code(s): I24.8 - OTHER FORMS OF ACUTE ISCHEMIC HEART DISEASE (6) Acute hypoxemic respiratory failure Code(s): J96.01 - ACUTE RESPIRATORY FAILURE WITH HYPOXIA (7) Emphysema of lung Code(s): J43.9 - EMPHYSEMA, UNSPECIFIED (8) HTN (hypertension) Code(s): I10 - ESSENTIAL (PRIMARY) HYPERTENSION (9) Anxiety Code(s): F41.9 - ANXIETY DISORDER, UNSPECIFIED
--- NOTE | 2017-07-20 12:18 | PN ---
Progress Note, Physician History of Present Illness: No new events noted. Pt states he is starting to feel a bit better. Is able to ambulate more without severe SOB. Does not have a productive cough, remains afebrile. No other specific complaints. - Current Medication List Current Medications: Active Medications Albuterol Sulfate (Ventolin 0.083% Nebulizer Soln -) 1 amp NEB Q4H PRN PRN Reason: SHORT OF BREATH/WHEEZING Albuterol/Ipratropium (Duoneb -) 1 amp NEB RQID [facility] Stop: 07/25/17 19:59 Last Admin: 07/20/17 08:05 Dose: 1 amp Artificial Tears (Artificial Tears) 1 drop OU QID PRN PRN Reason: DRY EYES Last Admin: 07/20/17 09:57 Dose: 1 drop Budesonide/Formoterol Fumarate (Symbicort 160/4.5mcg -) 1 puff IH BID [facility] Last Admin: 07/20/17 09:56 Dose: 1 puff Furosemide (Lasix Injection -) 40 mg IVPUSH DAILY [facility] Last Admin: 07/20/17 09:58 Dose: 40 mg Heparin Sodium (Porcine) (Heparin -) 5,000 unit SQ TID [facility] Last Admin: 07/20/17 05:19 Dose: 5,000 unit Famotidine/Sodium Chloride (Pepcid 20 Mg Premixed Ivpb -) 20 mg in 50 mls @ 100 mls/hr IVPB BID [facility] Last Admin: 07/20/17 09:59 Dose: 100 mls/hr Azithromycin 500 mg/ Dextrose 250 mls @ 250 mls/hr IVPB DAILY [facility] Stop: 07/21/17 10:59 Last Admin: 07/20/17 09:59 Dose: 250 mls/hr Ceftriaxone Sodium 1 gm/ (Dextrose) 50 mls @ 100 mls/hr IVPB DAILY [facility] Last Admin: 07/20/17 09:59 Dose: 100 mls/hr Lisinopril (Prinivil) 5 mg PO BID [facility] Last Admin: 07/20/17 09:58 Dose: 5 mg Methylprednisolone Sodium Succinate (Solu-Medrol -) 40 mg IVPUSH Q6H-IV [facility] Last Admin: 07/20/17 09:58 Dose: 40 mg Metoprolol Succinate (Toprol Xl -) 25 mg PO DAILY [facility] Last Admin: 07/20/17 09:58 Dose: 25 mg Montelukast Sodium (Singulair -) 10 mg PO HS [facility] Last Admin: 07/19/17 21:16 Dose: 10 mg Multivitamins/Minerals/Vitamin C (Tab-A-Vit -) 1 tab PO DAILY [facility] Last Admin: 07/20/17 09:58 Dose: 1 tab Zolpidem Tartrate (Ambien -) 5 mg PO HS PRN PRN Reason: INSOMNIA Last Admin: 07/18/17 20:43 Dose: 5 mg - Objective Vital Signs: Vital Signs Temperature 98 F 07/20/17 09:00 Pulse Rate 98 H 07/20/17 09:00 Respiratory Rate 20 07/20/17 09:00 Blood Pressure 137/83 07/20/17 09:00 O2 Sat by Pulse Oximetry (%) 96 07/19/17 21:00 Constitutional: Yes: No Distress, Calm Cardiovascular: Yes: Regular Rate and Rhythm Respiratory: Yes: Diminished Gastrointestinal: Yes: Normal Bowel Sounds, Soft Genitourinary: Yes: WNL Extremities: Yes: WNL Integumentary: Yes: WNL Neurological: Yes: Alert, Oriented Labs: CBC, BMP 07/20/17 06:00 07/20/17 06:00 Problem List - Problems (1) CHF (congestive heart failure) Code(s): I50.9 - HEART FAILURE, UNSPECIFIED (2) Acute exacerbation of chronic obstructive pulmonary disease Code(s): J44.1 - CHRONIC OBSTRUCTIVE PULMONARY DISEASE W (ACUTE) EXACERBATION (3) Acute hypoxemic respiratory failure Code(s): J96.01 - ACUTE RESPIRATORY FAILURE WITH HYPOXIA (4) HTN (hypertension) Code(s): I10 - ESSENTIAL (PRIMARY) HYPERTENSION (5) Demand ischemia Code(s): I24.8 - OTHER FORMS OF ACUTE ISCHEMIC HEART DISEASE Assessment/Plan 87 y.o. male with PMH of COPD,smoker, HTN admitted for worsened SOB Pt beginning to feel better Remains afebrile Acute COPD Exacerbation Acute hypoxemic respiratory failure - d/c Ceftriaxone, cont Zithromax - on lasix, steroids - cont. monitor
--- NOTE | 2017-07-20 13:32 | PN ---
Progress Note (short form) - Note Progress Note: PULMONARY States breathing is improving. Less cough and wheezing. Last Vital Signs Temp Pulse Resp BP Pulse Ox 98 F 98 H 20 137/83 97 07/20/17 09:00 07/20/17 09:00 07/20/17 09:00 07/20/17 09:00 07/20/17 09:00 Gen: NAD at rest Heart: RRR Lung: distant breath sounds, scattered rhonchi Abd: soft, nontender Ext: no edema CBC, BMP 07/20/17 06:00 07/20/17 06:00 Active Medications Albuterol Sulfate (Ventolin 0.083% Nebulizer Soln -) 1 amp NEB Q4H PRN PRN Reason: SHORT OF BREATH/WHEEZING Albuterol/Ipratropium (Duoneb -) 1 amp NEB RQID [facility] Stop: 07/25/17 19:59 Last Admin: 07/20/17 08:05 Dose: 1 amp Artificial Tears (Artificial Tears) 1 drop OU QID PRN PRN Reason: DRY EYES Last Admin: 07/20/17 09:57 Dose: 1 drop Budesonide/Formoterol Fumarate (Symbicort 160/4.5mcg -) 1 puff IH BID [facility] Last Admin: 07/20/17 09:56 Dose: 1 puff Furosemide (Lasix Injection -) 40 mg IVPUSH DAILY [facility] Last Admin: 07/20/17 09:58 Dose: 40 mg Heparin Sodium (Porcine) (Heparin -) 5,000 unit SQ TID [facility] Last Admin: 07/20/17 05:19 Dose: 5,000 unit Famotidine/Sodium Chloride (Pepcid 20 Mg Premixed Ivpb -) 20 mg in 50 mls @ 100 mls/hr IVPB BID [facility] Last Admin: 07/20/17 09:59 Dose: 100 mls/hr Azithromycin 500 mg/ Dextrose 250 mls @ 250 mls/hr IVPB DAILY [facility] Stop: 07/21/17 10:59 Last Admin: 07/20/17 09:59 Dose: 250 mls/hr Lisinopril (Prinivil) 5 mg PO BID [facility] Last Admin: 07/20/17 09:58 Dose: 5 mg Methylprednisolone Sodium Succinate (Solu-Medrol -) 40 mg IVPUSH Q6H-IV [facility] Last Admin: 07/20/17 09:58 Dose: 40 mg Metoprolol Succinate (Toprol Xl -) 25 mg PO DAILY [facility] Last Admin: 07/20/17 09:58 Dose: 25 mg Montelukast Sodium (Singulair -) 10 mg PO HS [facility] Last Admin: 07/19/17 21:16 Dose: 10 mg Multivitamins/Minerals/Vitamin C (Tab-A-Vit -) 1 tab PO DAILY [facility] Last Admin: 07/20/17 09:58 Dose: 1 tab Zolpidem Tartrate (Ambien -) 5 mg PO HS PRN PRN Reason: INSOMNIA Last Admin: 07/18/17 20:43 Dose: 5 mg A/P Acute Hypoxic Respiratory Failure Acute COPD Exacerbation Acute Diastolic Heart Failure +Troponins likely Demand Ischemia HTN - will decrease medrol to 40mg q8h - inhaled bronchodilators standing and PRN - 5 day course of azithromycin - O2 to keep SpO2 >90% - lasix as needed - artificial tears - DVT prophylaxis - when ready for discharge, check ambulatory SpO2 on room air to assess for home O2 Problem List - Problems (1) Acute exacerbation of chronic obstructive pulmonary disease Code(s): J44.1 - CHRONIC OBSTRUCTIVE PULMONARY DISEASE W (ACUTE) EXACERBATION (2) Elevated troponin Code(s): R74.8 - ABNORMAL LEVELS OF OTHER SERUM ENZYMES (3) Demand ischemia Code(s): I24.8 - OTHER FORMS OF ACUTE ISCHEMIC HEART DISEASE (4) Acute diastolic (congestive) heart failure Code(s): I50.31 - ACUTE DIASTOLIC (CONGESTIVE) HEART FAILURE (5) HTN (hypertension) Code(s): I10 - ESSENTIAL (PRIMARY) HYPERTENSION
[2017-07-20] MEDS: methylPREDNISolone NA SUCC 40 MG/1 ML VIAL IVPUSH SCH (17:31)
[2017-07-20] MEDS: ZOLPIDEM TARTRATE 5 MG TABLET PO PRN (21:00)
[2017-07-20] MEDS: MONTELUKAST NA 10 MG TABLET PO SCH (21:00)
[2017-07-21] MEDS: methylPREDNISolone NA SUCC 40 MG/1 ML VIAL IVPUSH SCH ×3 (02:51→17:27)
[2017-07-21] MEDS: HEPARIN NA (PORCINE) 5,000 UNITS/ML 1ML VIAL SQ SCH ×3 (05:18→22:18)
[2017-07-21 07:07] LABS: BASO % 0.1 % (0-2.0); HEMATOCRIT 46.7 % (35.4-49); HEMOGLOBIN 16.2 GM/dL (11.7-16.9); LYMPH % 3.1 % (8-40); MCH 33.1 pg (25.7-33.7); MCHC 34.6 g/dl (32.0-35.9); MEAN CELL VOLUME 95.7 fl (80-96); MEAN PLT VOLUME 9.4 fl (7.5-11.1); MONO % 4.3 % (3.8-10.2); NEUT % 92.5 % (42.8-82.8); PLATELET COUNT 229 K/MM3 (134-434); RBC 4.89 M/mm3 (4.00-5.60); RDW 14.1 % (11.9-15.9); WHITE BLOOD COUNT 9.7 K/mm3 (4.0-10.0)
[2017-07-21 07:58] LABS: ANION GAP 9 (8-16); BLOOD UREA NITROGEN 73 mg/dL (7-18); CALCIUM 8.6 mg/dL (8.5-10.1); CHLORIDE 93 mmol/L (98-107); CO2 31 mmol/L (21-32); GLUCOSE,RANDOM 129 mg/dL (74-106); POTASSIUM 3.8 mmol/L (3.5-5.1); SODIUM 133 mmol/L (136-145)
[2017-07-21] MEDS: ALBUTEROL SO4 2.5/IPRATROPIUM 0.5 INH SOL 3 ML VIAL.NEB. NEB SCH ×4 (08:55→21:15)
[2017-07-21] MEDS: FUROSEMIDE 40 MG/4 ML INJECTABLE VIAL IVPUSH SCH (10:15)
[2017-07-21] MEDS: LISINOPRIL 5 MG TABLET (FP) PO SCH ×2 (10:15→22:17)
[2017-07-21] MEDS: AZITHROMYCIN IVPB 500 MG in DEXTROSE 5%-WATER - 250 ML IVPB SCH (10:16)
[2017-07-21] MEDS: RANITIDINE HCL 150 MG TABLET (FP) PO SCH ×2 (10:16→22:16)
[2017-07-21] MEDS: metoPROLOL SUCCINATE 25 MG TAB.SR.24H (FP) PO SCH (10:16)
[2017-07-21] MEDS: BUDESONIDE/FORMETEROL FUMARATE 160/4.5 mcg INHALER IH SCH ×2 (10:16→22:19)
[2017-07-21] MEDS: MULTIVITAMINS (DAILY MVI) TABLET (FP) PO SCH (10:16)
--- NOTE | 2017-07-21 12:05 | PN ---
Progress Note, Physician History of Present Illness: pulmonary alert,feeling better,less dyspneic,less cough - Current Medication List Current Medications: Active Medications Albuterol Sulfate (Ventolin 0.083% Nebulizer Soln -) 1 amp NEB Q4H PRN PRN Reason: SHORT OF BREATH/WHEEZING Albuterol/Ipratropium (Duoneb -) 1 amp NEB RQID [facility] Stop: 07/25/17 19:59 Last Admin: 07/20/17 20:00 Dose: 1 amp Artificial Tears (Artificial Tears) 1 drop OU QID PRN PRN Reason: DRY EYES Last Admin: 07/20/17 09:57 Dose: 1 drop Budesonide/Formoterol Fumarate (Symbicort 160/4.5mcg -) 1 puff IH BID [facility] Last Admin: 07/21/17 10:16 Dose: 1 puff Furosemide (Lasix Injection -) 40 mg IVPUSH DAILY [facility] [place] Last Admin: 07/21/17 10:15 Dose: 40 mg Heparin Sodium (Porcine) (Heparin -) 5,000 unit SQ TID [facility] [place] Last Admin: 07/21/17 05:18 Dose: 5,000 unit Lisinopril (Prinivil) 5 mg PO BID [facility] [place] Last Admin: 07/21/17 10:15 Dose: 5 mg Methylprednisolone Sodium Succinate (Solu-Medrol -) 40 mg IVPUSH Q8H-IV [facility] [place] Last Admin: 07/21/17 10:16 Dose: 40 mg Metoprolol Succinate (Toprol Xl -) 25 mg PO DAILY [facility] [place] Last Admin: 07/21/17 10:16 Dose: 25 mg Montelukast Sodium (Singulair -) 10 mg PO HS [facility] [place] Last Admin: 07/20/17 21:00 Dose: 10 mg Multivitamins/Minerals/Vitamin C (Tab-A-Vit -) 1 tab PO DAILY [facility] [place] Last Admin: 07/21/17 10:16 Dose: 1 tab Ranitidine HCl (Zantac -) 150 mg PO BID [facility] [place] Last Admin: 07/21/17 10:16 Dose: 150 mg Zolpidem Tartrate (Ambien -) 5 mg PO HS PRN PRN Reason: INSOMNIA - Objective Vital Signs: Vital Signs Temperature 98 F 07/21/17 08:45 Pulse Rate 102 H 07/21/17 08:45 Respiratory Rate 20 07/21/17 09:00 Blood Pressure 159/83 07/21/17 08:45 O2 Sat by Pulse Oximetry (%) 95 07/21/17 09:00 Constitutional: Yes: Well Nourished, Calm Eyes: Yes: WNL HENT: Yes: WNL Neck: Yes: WNL Cardiovascular: Yes: Regular Rate and Rhythm, S1, S2 Respiratory: Yes: Wheezes (few wheezes) Gastrointestinal: Yes: Normal Bowel Sounds, Soft Extremities: Yes: WNL Edema: No Labs: CBC, BMP 07/21/17 06:42 07/21/17 06:42 Problem List - Problems (1) Acute hypoxemic respiratory failure Code(s): J96.01 - ACUTE RESPIRATORY FAILURE WITH HYPOXIA Assessment/Plan Problem List - Problems (1) Acute exacerbation of chronic obstructive pulmonary disease Code(s): J44.1 - CHRONIC OBSTRUCTIVE PULMONARY DISEASE W (ACUTE) EXACERBATION (2) Elevated troponin Code(s): R74.8 - ABNORMAL LEVELS OF OTHER SERUM ENZYMES (3) Demand ischemia Code(s): I24.8 - OTHER FORMS OF ACUTE ISCHEMIC HEART DISEASE (4) Acute diastolic (congestive) heart failure Code(s): I50.31 - ACUTE DIASTOLIC (CONGESTIVE) HEART FAILURE (5) HTN (hypertension) Code(s): I10 - ESSENTIAL (PRIMARY) HYPERTENSION Assessment/Plan Acute Hypoxic Respiratory Failure improving Acute COPD Exacerbation improving Acute Diastolic Heart Failure +Troponins likely Demand Ischemia HTN - IV medrol - inhaled bronchodilators standing and PRN - 5 day course of azithromycin - O2 to keep SpO2 >90% - lasix prn - DVT prophylaxis DR MOSLEY
--- NOTE | 2017-07-21 15:09 | PN ---
Progress Note, Physician History of Present Illness: says he still feels sob intermittently no other issues no cough or sputum production - Current Medication List Current Medications: Active Medications Albuterol Sulfate (Ventolin 0.083% Nebulizer Soln -) 1 amp NEB Q4H PRN PRN Reason: SHORT OF BREATH/WHEEZING Albuterol/Ipratropium (Duoneb -) 1 amp NEB RQID [facility] Stop: 07/25/17 19:59 Last Admin: 07/21/17 08:55 Dose: 1 amp Artificial Tears (Artificial Tears) 1 drop OU QID PRN PRN Reason: DRY EYES Last Admin: 07/20/17 09:57 Dose: 1 drop Budesonide/Formoterol Fumarate (Symbicort 160/4.5mcg -) 1 puff IH BID [facility] Last Admin: 07/21/17 10:16 Dose: 1 puff Furosemide (Lasix Injection -) 40 mg IVPUSH DAILY [facility] Last Admin: 07/21/17 10:15 Dose: 40 mg Heparin Sodium (Porcine) (Heparin -) 5,000 unit SQ TID [facility] Last Admin: 07/21/17 15:00 Dose: Not Given Lisinopril (Prinivil) 5 mg PO BID [facility] Last Admin: 07/21/17 10:15 Dose: 5 mg Methylprednisolone Sodium Succinate (Solu-Medrol -) 40 mg IVPUSH Q8H-IV [facility] Last Admin: 07/21/17 10:16 Dose: 40 mg Metoprolol Succinate (Toprol Xl -) 25 mg PO DAILY [facility] Last Admin: 07/21/17 10:16 Dose: 25 mg Montelukast Sodium (Singulair -) 10 mg PO HS [facility] Last Admin: 07/20/17 21:00 Dose: 10 mg Multivitamins/Minerals/Vitamin C (Tab-A-Vit -) 1 tab PO DAILY [facility] Last Admin: 07/21/17 10:16 Dose: 1 tab Ranitidine HCl (Zantac -) 150 mg PO BID [facility] Last Admin: 07/21/17 10:16 Dose: 150 mg Zolpidem Tartrate (Ambien -) 5 mg PO HS PRN PRN Reason: INSOMNIA - Objective Vital Signs: Vital Signs Temperature 96.5 F L 07/21/17 14:00 Pulse Rate 85 07/21/17 14:00 Respiratory Rate 16 07/21/17 14:00 Blood Pressure 144/75 07/21/17 14:00 O2 Sat by Pulse Oximetry (%) 95 07/21/17 09:00 Constitutional: Yes: No Distress, Calm Cardiovascular: Yes: Regular Rate and Rhythm Respiratory: Yes: Regular, Rhonchi Gastrointestinal: Yes: Normal Bowel Sounds, Soft Musculoskeletal: Yes: WNL Extremities: Yes: WNL Neurological: Yes: Alert, Oriented Psychiatric: Yes: Alert, Oriented Labs: CBC, BMP 07/21/17 06:42 07/21/17 06:42 Assessment/Plan [facility] List - Problems (1) Acute exacerbation of chronic obstructive pulmonary disease Code(s): J44.1 - CHRONIC OBSTRUCTIVE PULMONARY DISEASE W (ACUTE) EXACERBATION (2) Elevated troponin Code(s): R74.8 - ABNORMAL LEVELS OF OTHER SERUM ENZYMES (3) Demand ischemia Code(s): I24.8 - OTHER FORMS OF ACUTE ISCHEMIC HEART DISEASE (4) Acute diastolic (congestive) heart failure Code(s): I50.31 - ACUTE DIASTOLIC (CONGESTIVE) HEART FAILURE (5) HTN (hypertension) Code(s): I10 - ESSENTIAL (PRIMARY) HYPERTENSION plan continue current mgmt incentive camacho rest continue current mgmt patient stable
--- NOTE | 2017-07-21 19:54 | PN ---
Progress Note, Physician Chief Complaint: SOB/Cough/Wheezing is better now History of Present Illness: 87 year old male with a past medical history significant for COPD, HTN who presented to the ED with SOB, wheezing Feels better today. No Fever - Current Medication List Current Medications: Active Medications Albuterol Sulfate (Ventolin 0.083% Nebulizer Soln -) 1 amp NEB Q4H PRN PRN Reason: SHORT OF BREATH/WHEEZING Albuterol/Ipratropium (Duoneb -) 1 amp NEB RQID [facility] Stop: 07/25/17 19:59 Last Admin: 07/21/17 18:25 Dose: 1 amp Artificial Tears (Artificial Tears) 1 drop OU QID PRN PRN Reason: DRY EYES Last Admin: 07/20/17 09:57 Dose: 1 drop Budesonide/Formoterol Fumarate (Symbicort 160/4.5mcg -) 1 puff IH BID [facility] Last Admin: 07/21/17 10:16 Dose: 1 puff Furosemide (Lasix Injection -) 40 mg IVPUSH DAILY [facility] Last Admin: 07/21/17 10:15 Dose: 40 mg Heparin Sodium (Porcine) (Heparin -) 5,000 unit SQ TID [facility] Last Admin: 07/21/17 15:00 Dose: Not Given Lisinopril (Prinivil) 5 mg PO BID [facility] Last Admin: 07/21/17 10:15 Dose: 5 mg Methylprednisolone Sodium Succinate (Solu-Medrol -) 40 mg IVPUSH Q8H-IV [facility] Last Admin: 07/21/17 17:27 Dose: 40 mg Metoprolol Succinate (Toprol Xl -) 25 mg PO DAILY [facility] Last Admin: 07/21/17 10:16 Dose: 25 mg Montelukast Sodium (Singulair -) 10 mg PO HS [facility] Last Admin: 07/20/17 21:00 Dose: 10 mg Multivitamins/Minerals/Vitamin C (Tab-A-Vit -) 1 tab PO DAILY [facility] Last Admin: 07/21/17 10:16 Dose: 1 tab Ranitidine HCl (Zantac -) 150 mg PO BID [facility] Last Admin: 07/21/17 10:16 Dose: 150 mg Zolpidem Tartrate (Ambien -) 5 mg PO HS PRN PRN Reason: INSOMNIA - Objective Vital Signs: Vital Signs Temperature 97.8 F 07/21/17 18:38 Pulse Rate 82 07/21/17 18:38 Respiratory Rate 18 07/21/17 18:38 Blood Pressure 130/70 07/21/17 18:38 O2 Sat by Pulse Oximetry (%) 95 07/21/17 09:00 Constitutional: Yes: Anxious Eyes: Yes: Conjunctiva Clear, EOM Intact HENT: Yes: Atraumatic, Normocephalic Neck: Yes: Supple, Trachea Midline Cardiovascular: Yes: Regular Rate and Rhythm, S1, S2 Respiratory: Yes: Regular, CTA Bilaterally, Rales, Rhonchi Gastrointestinal: Yes: Normal Bowel Sounds, Soft, Abdomen, Obese Musculoskeletal: Yes: Joint Stiffness Edema: No Peripheral Pulses WNL: Yes Labs: CBC, BMP 07/21/17 06:42 07/21/17 06:42 Problem List - Problems (1) Renal failure Code(s): N19 - UNSPECIFIED KIDNEY FAILURE (2) Bronchiectasis Code(s): J47.9 - BRONCHIECTASIS, UNCOMPLICATED (3) Acute exacerbation of chronic obstructive pulmonary disease Code(s): J44.1 - CHRONIC OBSTRUCTIVE PULMONARY DISEASE W (ACUTE) EXACERBATION (4) Acute hypoxemic respiratory failure Code(s): J96.01 - ACUTE RESPIRATORY FAILURE WITH HYPOXIA (5) Emphysema of lung Code(s): J43.9 - EMPHYSEMA, UNSPECIFIED (6) HTN (hypertension) Code(s): I10 - ESSENTIAL (PRIMARY) HYPERTENSION (7) Demand ischemia Code(s): I24.8 - OTHER FORMS OF ACUTE ISCHEMIC HEART DISEASE (8) Acute diastolic (congestive) heart failure Code(s): I50.31 - ACUTE DIASTOLIC (CONGESTIVE) HEART FAILURE (9) Anxiety Code(s): F41.9 - ANXIETY DISORDER, UNSPECIFIED (10) Conjunctivitis Code(s): H10.9 - UNSPECIFIED CONJUNCTIVITIS Assessment/Plan (1) Renal failure Code(s): N19 - UNSPECIFIED KIDNEY FAILURE (2) Bronchiectasis/Emphysema/Pul HTN: 2017 CT chest Code(s): J47.9 - BRONCHIECTASIS, UNCOMPLICATED (3) Acute exacerbation of chronic obstructive pulmonary disease Code(s): J44.1 - CHRONIC OBSTRUCTIVE PULMONARY DISEASE W (ACUTE) EXACERBATION (4) Acute hypoxemic respiratory failure Code(s): J96.01 - ACUTE RESPIRATORY FAILURE WITH HYPOXIA (5) Emphysema of lung Code(s): J43.9 - EMPHYSEMA, UNSPECIFIED (6) HTN (hypertension) Code(s): I10 - ESSENTIAL (PRIMARY) HYPERTENSION (7) Demand ischemia Code(s): I24.8 - OTHER FORMS OF ACUTE ISCHEMIC HEART DISEASE (8) Acute diastolic (congestive) heart failure Code(s): I50.31 - ACUTE DIASTOLIC (CONGESTIVE) HEART FAILURE (9) Anxiety Code(s): F41.9 - ANXIETY DISORDER, UNSPECIFIED (10) Conjunctivitis Code(s): H10.9 - UNSPECIFIED CONJUNCTIVITIS Renal failure/ IV fluids IV lasix on Hold steroids tapering PT Bonchiectasis/Emphysema last admission also patient had protracted course for recovery Hence Pt is on Rocephen and zithromax Pt OP 10 day zithromax did not help
[2017-07-21] MEDS ORDERED: PT OWN MED DRAWER 7, Y5N ONE (22:12)
[2017-07-21] MEDS: CIPROFLOXACIN HCL 0.3% OPHTH 2.5ML BOTTLE OD SCH (22:17)
[2017-07-21] MEDS: ZOLPIDEM TARTRATE 5 MG TABLET PO PRN (22:17)
[2017-07-21] MEDS: POTASSIUM CHLORIDE 10 MEQ in SODIUM CHLORIDE 1,000 ML IVPB SCH (22:20)
[2017-07-21] MEDS: MONTELUKAST NA 10 MG TABLET PO SCH (22:20)
[2017-07-22] MEDS: methylPREDNISolone NA SUCC 40 MG/1 ML VIAL IVPUSH SCH ×3 (01:34→17:19)
[2017-07-22] MEDS: HEPARIN NA (PORCINE) 5,000 UNITS/ML 1ML VIAL SQ SCH ×3 (06:23→22:02)
[2017-07-22] MEDS: CIPROFLOXACIN HCL 0.3% OPHTH 2.5ML BOTTLE OD SCH ×3 (06:23→22:02)
[2017-07-22 07:36] LABS: CHLORIDE 94 mmol/L (98-107); SODIUM 134 mmol/L (136-145)
[2017-07-22 07:56] LABS: ANION GAP 11 (8-16); BLOOD UREA NITROGEN 65 mg/dL (7-18); CALCIUM 8.7 mg/dL (8.5-10.1); CO2 29 mmol/L (21-32); CREATININE 1.7 mg/dL (0.7-1.3); GLUCOSE,RANDOM 131 mg/dL (74-106)
[2017-07-22 08:03] LABS: HEMATOCRIT 46.1 % (35.4-49); HEMOGLOBIN 15.9 GM/dL (11.7-16.9); MCH 32.9 pg (25.7-33.7); MCHC 34.5 g/dl (32.0-35.9); MEAN CELL VOLUME 95.4 fl (80-96); MEAN PLT VOLUME 9.1 fl (7.5-11.1); PLATELET COUNT 231 K/MM3 (134-434); RBC 4.83 M/mm3 (4.00-5.60); RDW 13.9 % (11.9-15.9)
[2017-07-22] MEDS: ALBUTEROL SO4 2.5/IPRATROPIUM 0.5 INH SOL 3 ML VIAL.NEB. NEB SCH ×3 (08:04→17:08)
[2017-07-22] MEDS: metoPROLOL SUCCINATE 25 MG TAB.SR.24H (FP) PO SCH (10:15)
[2017-07-22] MEDS: RANITIDINE HCL 150 MG TABLET (FP) PO SCH ×2 (10:15→22:02)
[2017-07-22] MEDS: LISINOPRIL 5 MG TABLET (FP) PO SCH ×2 (10:15→22:02)
[2017-07-22] MEDS: MULTIVITAMINS (DAILY MVI) TABLET (FP) PO SCH (10:15)
[2017-07-22] MEDS ORDERED: PT OWN MED DRAWER 7, Y5N ONE (10:16)
[2017-07-22] MEDS: BUDESONIDE/FORMETEROL FUMARATE 160/4.5 mcg INHALER IH SCH ×2 (10:26→22:03)
[2017-07-22] MEDS: ARTIFICIAL TEARS (POLYVINYL ALCOHOL 1.4%) OPTH DROPS OU PRN (10:29)
--- NOTE | 2017-07-22 12:21 | PN ---
Progress Note (short form) - Note Progress Note: PULMONARY States breathing is slowly improving. Less cough and wheezing. Last Vital Signs Temp Pulse Resp BP Pulse Ox 98.1 F 89 16 165/85 95 07/22/17 06:21 07/22/17 06:21 07/22/17 06:21 07/22/17 06:21 07/21/17 21:00 Gen: NAD at rest Heart: RRR Lung: distant breath sounds, scattered rhonchi Abd: soft, nontender Ext: no edema CBC, BMP 07/22/17 05:35 07/22/17 05:35 Active Medications Albuterol Sulfate (Ventolin 0.083% Nebulizer Soln -) 1 amp NEB Q4H PRN PRN Reason: SHORT OF BREATH/WHEEZING Albuterol/Ipratropium (Duoneb -) 1 amp NEB RQID [facility] Stop: 07/25/17 19:59 Last Admin: 07/22/17 08:04 Dose: 1 amp Artificial Tears (Artificial Tears) 1 drop OU QID PRN PRN Reason: DRY EYES Last Admin: 07/22/17 10:29 Dose: 1 drop Budesonide/Formoterol Fumarate (Symbicort 160/4.5mcg -) 1 puff IH BID [facility] Last Admin: 07/22/17 10:26 Dose: 1 puff Ciprofloxacin (Ciloxan 0.3% Eye Drops -) 2 drop OD TID [facility] Last Admin: 07/22/17 06:23 Dose: 2 drop Heparin Sodium (Porcine) (Heparin -) 5,000 unit SQ TID [facility] Last Admin: 07/22/17 06:23 Dose: 5,000 unit Potassium Chloride 10 meq/ (Sodium Chloride) 1,005 mls @ 75 mls/hr IVPB ASDIR [facility] Last Admin: 07/21/17 22:20 Dose: 75 mls/hr Lisinopril (Prinivil) 5 mg PO BID [facility] Last Admin: 07/22/17 10:15 Dose: 5 mg Methylprednisolone Sodium Succinate (Solu-Medrol -) 40 mg IVPUSH Q8H-IV [facility] Last Admin: 07/22/17 10:15 Dose: 40 mg Metoprolol Succinate (Toprol Xl -) 25 mg PO DAILY [facility] Last Admin: 07/22/17 10:15 Dose: 25 mg Montelukast Sodium (Singulair -) 10 mg PO HS [facility] Last Admin: 07/21/17 22:20 Dose: 10 mg Multivitamins/Minerals/Vitamin C (Tab-A-Vit -) 1 tab PO DAILY [facility] Last Admin: 07/22/17 10:15 Dose: 1 tab Ranitidine HCl (Zantac -) 150 mg PO BID [facility] Last Admin: 07/22/17 10:15 Dose: 150 mg Zolpidem Tartrate (Ambien -) 5 mg PO HS PRN PRN Reason: INSOMNIA Last Admin: 07/21/17 22:17 Dose: 5 mg A/P Acute Hypoxic Respiratory Failure Acute COPD Exacerbation Acute Diastolic Heart Failure +Troponins likely Demand Ischemia HTN - continue medrol 40mg q8h - if continues to improve, can change to PO prednisone 40mg daily and taper as outpt - inhaled bronchodilators standing and PRN - s/p 5 day course of azithromycin - O2 to keep SpO2 >90% - lasix as needed - artificial tears - DVT prophylaxis - when ready for discharge, check ambulatory SpO2 on room air to assess for home O2, likely will qualify as he is currently 85% on room air Problem List - Problems (1) Acute exacerbation of chronic obstructive pulmonary disease Code(s): J44.1 - CHRONIC OBSTRUCTIVE PULMONARY DISEASE W (ACUTE) EXACERBATION (2) Elevated troponin Code(s): R74.8 - ABNORMAL LEVELS OF OTHER SERUM ENZYMES (3) Demand ischemia Code(s): I24.8 - OTHER FORMS OF ACUTE ISCHEMIC HEART DISEASE (4) Acute diastolic (congestive) heart failure Code(s): I50.31 - ACUTE DIASTOLIC (CONGESTIVE) HEART FAILURE (5) HTN (hypertension) Code(s): I10 - ESSENTIAL (PRIMARY) HYPERTENSION
[2017-07-22 13:09] LABS: PLATELET ESTIMATE ADEQUATE
--- NOTE | 2017-07-22 13:57 | PN ---
Progress Note, Physician History of Present Illness: patient doing well breathing james no complaints feeling better red eyes - Current Medication List Current Medications: Active Medications Albuterol Sulfate (Ventolin 0.083% Nebulizer Soln -) 1 amp NEB Q4H PRN PRN Reason: SHORT OF BREATH/WHEEZING Albuterol/Ipratropium (Duoneb -) 1 amp NEB RQID [facility] Stop: 07/25/17 19:59 Last Admin: 07/22/17 08:04 Dose: 1 amp Artificial Tears (Artificial Tears) 1 drop OU QID PRN PRN Reason: DRY EYES Last Admin: 07/22/17 10:29 Dose: 1 drop Budesonide/Formoterol Fumarate (Symbicort 160/4.5mcg -) 1 puff IH BID [facility] Last Admin: 07/22/17 10:26 Dose: 1 puff Ciprofloxacin (Ciloxan 0.3% Eye Drops -) 2 drop OD TID [facility] Last Admin: 07/22/17 13:23 Dose: 2 drop Heparin Sodium (Porcine) (Heparin -) 5,000 unit SQ TID [facility] Last Admin: 07/22/17 13:23 Dose: 5,000 unit Potassium Chloride 10 meq/ (Sodium Chloride) 1,005 mls @ 75 mls/hr IVPB ASDIR [facility] Last Admin: 07/21/17 22:20 Dose: 75 mls/hr Lisinopril (Prinivil) 5 mg PO BID [facility] Last Admin: 07/22/17 10:15 Dose: 5 mg Methylprednisolone Sodium Succinate (Solu-Medrol -) 40 mg IVPUSH Q8H-IV [facility] Last Admin: 07/22/17 10:15 Dose: 40 mg Metoprolol Succinate (Toprol Xl -) 25 mg PO DAILY [facility] Last Admin: 07/22/17 10:15 Dose: 25 mg Montelukast Sodium (Singulair -) 10 mg PO HS [facility] Last Admin: 07/21/17 22:20 Dose: 10 mg Multivitamins/Minerals/Vitamin C (Tab-A-Vit -) 1 tab PO DAILY [facility] Last Admin: 07/22/17 10:15 Dose: 1 tab Ranitidine HCl (Zantac -) 150 mg PO BID [facility] Last Admin: 07/22/17 10:15 Dose: 150 mg Zolpidem Tartrate (Ambien -) 5 mg PO HS PRN PRN Reason: INSOMNIA Last Admin: 07/21/17 22:17 Dose: 5 mg - Objective Vital Signs: Vital Signs Temperature 97.9 F 07/22/17 13:30 Pulse Rate 78 07/22/17 13:30 Respiratory Rate 16 07/22/17 13:30 Blood Pressure 169/84 07/22/17 13:30 O2 Sat by Pulse Oximetry (%) 96 07/22/17 09:00 Constitutional: Yes: No Distress, Calm Eyes: Yes: Other (eyes red) Cardiovascular: Yes: Regular Rate and Rhythm Respiratory: Yes: Regular, Rhonchi, Other Gastrointestinal: Yes: Normal Bowel Sounds, Soft Musculoskeletal: Yes: WNL Extremities: Yes: WNL Neurological: Yes: Alert, Oriented Psychiatric: Yes: Alert, Oriented Labs: CBC, BMP 07/22/17 05:35 07/22/17 05:35 Assessment/Plan roblem List - Problems (1) Acute exacerbation of chronic obstructive pulmonary disease Code(s): J44.1 - CHRONIC OBSTRUCTIVE PULMONARY DISEASE W (ACUTE) EXACERBATION (2) Elevated troponin Code(s): R74.8 - ABNORMAL LEVELS OF OTHER SERUM ENZYMES (3) Demand ischemia Code(s): I24.8 - OTHER FORMS OF ACUTE ISCHEMIC HEART DISEASE (4) Acute diastolic (congestive) heart failure Code(s): I50.31 - ACUTE DIASTOLIC (CONGESTIVE) HEART FAILURE (5) HTN (hypertension) Code(s): I10 - ESSENTIAL (PRIMARY) HYPERTENSION plan continue current mgmt incentive camacho rest continue current mgmt patient stable
[2017-07-22] MEDS ORDERED: ACETAMINOPHEN 325 MG TABLET (FP) ONE (14:32)
[2017-07-22] MEDS: POTASSIUM CHLORIDE 10 MEQ in SODIUM CHLORIDE 1,000 ML IVPB SCH ×2 (14:44→22:04)
--- NOTE | 2017-07-22 18:44 | PN ---
Progress Note, Physician Chief Complaint: SOB/Cough/Wheezing is better now Pt Raised BUN/ Creat with Renal failure History of Present Illness: Pt is doing better with IV hydration Pt had Both Eyes red not Improving more pain - Current Medication List Current Medications: Active Medications Albuterol/Ipratropium (Duoneb -) 1 amp NEB RQID [facility] Stop: 07/25/17 19:59 Last Admin: 07/22/17 17:08 Dose: 1 amp Artificial Tears (Artificial Tears) 1 drop OU QID PRN PRN Reason: DRY EYES Last Admin: 07/22/17 10:29 Dose: 1 drop Budesonide/Formoterol Fumarate (Symbicort 160/4.5mcg -) 1 puff IH BID [facility] Last Admin: 07/22/17 10:26 Dose: 1 puff Ciprofloxacin (Ciloxan 0.3% Eye Drops -) 2 drop OD TID [facility] Last Admin: 07/22/17 13:23 Dose: 2 drop Heparin Sodium (Porcine) (Heparin -) 5,000 unit SQ TID [facility] Last Admin: 07/22/17 13:23 Dose: 5,000 unit Potassium Chloride 10 meq/ (Sodium Chloride) 1,005 mls @ 75 mls/hr IVPB ASDIR [facility] Last Admin: 07/22/17 14:44 Dose: 75 mls/hr Lisinopril (Prinivil) 5 mg PO BID [facility] Last Admin: 07/22/17 10:15 Dose: 5 mg Methylprednisolone Sodium Succinate (Solu-Medrol -) 40 mg IVPUSH Q8H-IV [facility] Last Admin: 07/22/17 17:19 Dose: 40 mg Metoprolol Succinate (Toprol Xl -) 25 mg PO DAILY [facility] Last Admin: 07/22/17 10:15 Dose: 25 mg Montelukast Sodium (Singulair -) 10 mg PO HS [facility] Last Admin: 07/21/17 22:20 Dose: 10 mg Multivitamins/Minerals/Vitamin C (Tab-A-Vit -) 1 tab PO DAILY [facility] Last Admin: 07/22/17 10:15 Dose: 1 tab Ranitidine HCl (Zantac -) 150 mg PO BID [facility] Last Admin: 07/22/17 10:15 Dose: 150 mg Zolpidem Tartrate (Ambien -) 5 mg PO HS PRN PRN Reason: INSOMNIA Last Admin: 07/21/17 22:17 Dose: 5 mg - Objective Vital Signs: Vital Signs Temperature 97.9 F 07/22/17 17:24 Pulse Rate 79 07/22/17 17:24 Respiratory Rate 20 07/22/17 17:24 Blood Pressure 160/80 07/22/17 17:24 O2 Sat by Pulse Oximetry (%) 96 07/22/17 09:00 Constitutional: Yes: Anxious Eyes: Yes: Conjunctiva Clear, EOM Intact HENT: Yes: Atraumatic, Normocephalic Neck: Yes: Supple, Trachea Midline Cardiovascular: Yes: Regular Rate and Rhythm, S1, S2 Respiratory: Yes: Regular, CTA Bilaterally Gastrointestinal: Yes: Normal Bowel Sounds, Soft Musculoskeletal: Yes: Joint Stiffness Edema: No Peripheral Pulses WNL: Yes Labs: CBC, BMP 07/22/17 05:35 07/22/17 05:35 Problem List - Problems (1) Renal failure Code(s): N19 - UNSPECIFIED KIDNEY FAILURE (2) Bronchiectasis Code(s): J47.9 - BRONCHIECTASIS, UNCOMPLICATED (3) Acute exacerbation of chronic obstructive pulmonary disease Code(s): J44.1 - CHRONIC OBSTRUCTIVE PULMONARY DISEASE W (ACUTE) EXACERBATION (4) Acute hypoxemic respiratory failure Code(s): J96.01 - ACUTE RESPIRATORY FAILURE WITH HYPOXIA (5) Emphysema of lung Code(s): J43.9 - EMPHYSEMA, UNSPECIFIED (6) HTN (hypertension) Code(s): I10 - ESSENTIAL (PRIMARY) HYPERTENSION (7) Demand ischemia Code(s): I24.8 - OTHER FORMS OF ACUTE ISCHEMIC HEART DISEASE (8) Acute diastolic (congestive) heart failure Code(s): I50.31 - ACUTE DIASTOLIC (CONGESTIVE) HEART FAILURE (9) Anxiety Code(s): F41.9 - ANXIETY DISORDER, UNSPECIFIED (10) Conjunctivitis Code(s): H10.9 - UNSPECIFIED CONJUNCTIVITIS Assessment/Plan (1) Renal failure Code(s): N19 - UNSPECIFIED KIDNEY FAILURE (2) Bronchiectasis/Emphysema/Pul HTN: 2017 CT chest Code(s): J47.9 - BRONCHIECTASIS, UNCOMPLICATED (3) Acute exacerbation of chronic obstructive pulmonary disease Code(s): J44.1 - CHRONIC OBSTRUCTIVE PULMONARY DISEASE W (ACUTE) EXACERBATION (4) Acute hypoxemic respiratory failure Code(s): J96.01 - ACUTE RESPIRATORY FAILURE WITH HYPOXIA (5) Emphysema of lung Code(s): J43.9 - EMPHYSEMA, UNSPECIFIED (6) HTN (hypertension) Code(s): I10 - ESSENTIAL (PRIMARY) HYPERTENSION (7) Demand ischemia Code(s): I24.8 - OTHER FORMS OF ACUTE ISCHEMIC HEART DISEASE (8) Acute diastolic (congestive) heart failure Code(s): I50.31 - ACUTE DIASTOLIC (CONGESTIVE) HEART FAILURE (9) Anxiety Code(s): F41.9 - ANXIETY DISORDER, UNSPECIFIED (10) Conjunctivitis Code(s): H10.9 - UNSPECIFIED CONJUNCTIVITIS Renal failure/ IV fluids IV lasix on Hold steroids tapering PT Bonchiectasis/Emphysema last admission also patient had protracted course for recovery Hence Pt is on Rocephen and zithromax Pt OP 10 day zithromax did not help Pt having Burning Eyes on saline drops and cipro eye drops not improving R/o glaucoma
[2017-07-22] MEDS: ACETAMINOPHEN 325 MG TABLET (FP) PO PRN (20:10)
[2017-07-22] MEDS: MONTELUKAST NA 10 MG TABLET PO SCH (22:02)
[2017-07-22] MEDS: ZOLPIDEM TARTRATE 5 MG TABLET PO PRN (22:02)
[2017-07-23] MEDS: methylPREDNISolone NA SUCC 40 MG/1 ML VIAL IVPUSH SCH ×2 (01:06→10:32)
[2017-07-23] MEDS: CIPROFLOXACIN HCL 0.3% OPHTH 2.5ML BOTTLE OD SCH ×3 (06:03→22:25)
[2017-07-23] MEDS: HEPARIN NA (PORCINE) 5,000 UNITS/ML 1ML VIAL SQ SCH ×3 (06:03→22:25)
[2017-07-23] MEDS: POTASSIUM CHLORIDE 10 MEQ in SODIUM CHLORIDE 1,000 ML IVPB SCH ×2 (06:06→19:48)
[2017-07-23] MEDS: ACETAMINOPHEN 325 MG TABLET (FP) PO PRN ×3 (06:06→14:21)
[2017-07-23 06:37] LABS: HEMATOCRIT 46.5 % (35.4-49); HEMOGLOBIN 15.9 GM/dL (11.7-16.9); MCH 33.2 pg (25.7-33.7); MCHC 34.2 g/dl (32.0-35.9); MEAN CELL VOLUME 96.9 fl (80-96); MEAN PLT VOLUME 9.3 fl (7.5-11.1); PLATELET COUNT 260 K/MM3 (134-434); RDW 13.8 % (11.9-15.9); WHITE BLOOD COUNT 13.2 K/mm3 (4.0-10.0)
[2017-07-23] MEDS ORDERED: PT OWN MED DRAWER 7, Y5N ONE ×2 (06:49→22:22)
[2017-07-23 07:04] LABS: CHLORIDE 96 mmol/L (98-107); POTASSIUM 4.5 mmol/L (3.5-5.1); SODIUM 134 mmol/L (136-145)
[2017-07-23 07:14] LABS: ANION GAP 5 (8-16); BLOOD UREA NITROGEN 47 mg/dL (7-18); CALCIUM 8.6 mg/dL (8.5-10.1); CO2 33 mmol/L (21-32); CREATININE 1.4 mg/dL (0.7-1.3); GLUCOSE,RANDOM 105 mg/dL (74-106)
[2017-07-23] MEDS ORDERED: ALBUTEROL SO4 2.5/IPRATROPIUM 0.5 INH SOL 3 ML VIAL.NEB. NEB SCH (07:34)
--- NOTE | 2017-07-23 10:26 | PN ---
Progress Note, Physician History of Present Illness: stable doing well eye bothering him - Current Medication List Current Medications: Active Medications Acetaminophen (Tylenol -) 650 mg PO Q4H PRN PRN Reason: PAIN LEVEL 4 - 6 Last Admin: 07/23/17 06:06 Dose: 650 mg Artificial Tears (Artificial Tears) 1 drop OU QID PRN PRN Reason: DRY EYES Last Admin: 07/22/17 10:29 Dose: 1 drop Budesonide/Formoterol Fumarate (Symbicort 160/4.5mcg -) 1 puff IH BID [facility] Last Admin: 07/22/17 22:03 Dose: 1 puff Ciprofloxacin (Ciloxan 0.3% Eye Drops -) 2 drop OD TID [facility] Last Admin: 07/23/17 06:03 Dose: 2 drop Heparin Sodium (Porcine) (Heparin -) 5,000 unit SQ TID [facility] Last Admin: 07/23/17 06:03 Dose: 5,000 unit Potassium Chloride 10 meq/ (Sodium Chloride) 1,005 mls @ 75 mls/hr IVPB ASDIR [facility] Last Admin: 07/23/17 06:06 Dose: 75 mls/hr Lisinopril (Prinivil) 5 mg PO BID [facility] Last Admin: 07/22/17 22:02 Dose: 5 mg Methylprednisolone Sodium Succinate (Solu-Medrol -) 40 mg IVPUSH Q8H-IV [facility] Last Admin: 07/23/17 01:06 Dose: 40 mg Metoprolol Succinate (Toprol Xl -) 25 mg PO DAILY [facility] Last Admin: 07/22/17 10:15 Dose: 25 mg Montelukast Sodium (Singulair -) 10 mg PO HS [facility] Last Admin: 07/22/17 22:02 Dose: 10 mg Multivitamins/Minerals/Vitamin C (Tab-A-Vit -) 1 tab PO DAILY [facility] Last Admin: 07/22/17 10:15 Dose: 1 tab Ranitidine HCl (Zantac -) 150 mg PO BID [facility] Last Admin: 07/22/17 22:02 Dose: 150 mg Zolpidem Tartrate (Ambien -) 5 mg PO HS PRN PRN Reason: INSOMNIA Last Admin: 07/22/17 22:02 Dose: 5 mg - Objective Vital Signs: Vital Signs Temperature 97.6 F 07/23/17 06:00 Pulse Rate 74 07/23/17 06:00 Respiratory Rate 16 07/23/17 08:39 Blood Pressure 167/78 07/23/17 06:00 O2 Sat by Pulse Oximetry (%) 93 L 07/23/17 08:39 Constitutional: Yes: No Distress, Calm Cardiovascular: Yes: Regular Rate and Rhythm Respiratory: Yes: Regular, Poor Air Entry (bases) Gastrointestinal: Yes: Normal Bowel Sounds, Soft Musculoskeletal: Yes: WNL Extremities: Yes: WNL Neurological: Yes: Alert, Oriented Psychiatric: Yes: Alert, Oriented Labs: CBC, BMP 07/23/17 05:35 07/23/17 05:35 Assessment/Plan roblem List - Problems (1) Acute exacerbation of chronic obstructive pulmonary disease Code(s): J44.1 - CHRONIC OBSTRUCTIVE PULMONARY DISEASE W (ACUTE) EXACERBATION (2) Elevated troponin Code(s): R74.8 - ABNORMAL LEVELS OF OTHER SERUM ENZYMES (3) Demand ischemia Code(s): I24.8 - OTHER FORMS OF ACUTE ISCHEMIC HEART DISEASE (4) Acute diastolic (congestive) heart failure Code(s): I50.31 - ACUTE DIASTOLIC (CONGESTIVE) HEART FAILURE (5) HTN (hypertension) Code(s): I10 - ESSENTIAL (PRIMARY) HYPERTENSION plan continue current mgmt incentive camacho rest continue current mgmt patient stable walking without o2
[2017-07-23] MEDS: LISINOPRIL 5 MG TABLET (FP) PO SCH ×2 (10:32→22:24)
[2017-07-23] MEDS: metoPROLOL SUCCINATE 25 MG TAB.SR.24H (FP) PO SCH ×2 (10:32→22:25)
[2017-07-23] MEDS: MULTIVITAMINS (DAILY MVI) TABLET (FP) PO SCH (10:33)
[2017-07-23] MEDS: RANITIDINE HCL 150 MG TABLET (FP) PO SCH ×2 (10:33→22:24)
[2017-07-23 10:51] LABS: ANISOCYTOSIS 0; PLATELET ESTIMATE NORMAL
[2017-07-23 11:18] LABS: MACROCYTOSIS 1+; OVALOCYTE 1+
--- NOTE | 2017-07-23 13:13 | PN ---
Progress Note, Physician History of Present Illness: pulmonary alert,feeling better,,nad,less dyspneic,less cough - Current Medication List Current Medications: Active Medications Acetaminophen (Tylenol -) 650 mg PO Q4H PRN PRN Reason: PAIN LEVEL 4 - 6 Last Admin: 07/23/17 10:34 Dose: 650 mg Artificial Tears (Artificial Tears) 1 drop OU QID PRN PRN Reason: DRY EYES Last Admin: 07/22/17 10:29 Dose: 1 drop Budesonide/Formoterol Fumarate (Symbicort 160/4.5mcg -) 1 puff IH BID [facility] Last Admin: 07/22/17 22:03 Dose: 1 puff Ciprofloxacin (Ciloxan 0.3% Eye Drops -) 2 drop OD TID [facility] Last Admin: 07/23/17 06:03 Dose: 2 drop Heparin Sodium (Porcine) (Heparin -) 5,000 unit SQ TID [facility] Last Admin: 07/23/17 06:03 Dose: 5,000 unit Potassium Chloride 10 meq/ (Sodium Chloride) 1,005 mls @ 75 mls/hr IVPB ASDIR [facility] Last Admin: 07/23/17 06:06 Dose: 75 mls/hr Lisinopril (Prinivil) 5 mg PO BID [facility] Last Admin: 07/23/17 10:32 Dose: 5 mg Methylprednisolone Sodium Succinate (Solu-Medrol -) 40 mg IVPUSH Q8H-IV [facility] Last Admin: 07/23/17 10:32 Dose: 40 mg Metoprolol Succinate (Toprol Xl -) 25 mg PO DAILY [facility] Last Admin: 07/23/17 10:32 Dose: 25 mg Montelukast Sodium (Singulair -) 10 mg PO HS [facility] Last Admin: 07/22/17 22:02 Dose: 10 mg Multivitamins/Minerals/Vitamin C (Tab-A-Vit -) 1 tab PO DAILY [facility] Last Admin: 07/23/17 10:33 Dose: 1 tab Ranitidine HCl (Zantac -) 150 mg PO BID [facility] Last Admin: 07/23/17 10:33 Dose: 150 mg Zolpidem Tartrate (Ambien -) 5 mg PO HS PRN PRN Reason: INSOMNIA Last Admin: 07/22/17 22:02 Dose: 5 mg - Objective Vital Signs: Vital Signs Temperature 98 F 07/23/17 10:00 Pulse Rate 87 07/23/17 10:00 Respiratory Rate 20 07/23/17 10:00 Blood Pressure 162/72 07/23/17 10:00 O2 Sat by Pulse Oximetry (%) 93 L 07/23/17 08:39 Constitutional: Yes: Well Nourished, Calm Eyes: Yes: WNL HENT: Yes: WNL Neck: Yes: WNL Cardiovascular: Yes: Regular Rate and Rhythm, S1, S2 Respiratory: Yes: Rales (bibasilar rales) Gastrointestinal: Yes: Normal Bowel Sounds, Soft Extremities: Yes: WNL Edema: No Labs: CBC, BMP 07/23/17 05:35 07/23/17 05:35 Problem List - Problems (1) Acute hypoxemic respiratory failure Code(s): J96.01 - ACUTE RESPIRATORY FAILURE WITH HYPOXIA Assessment/Plan Problem List - Problems (1) Acute exacerbation of chronic obstructive pulmonary disease Code(s): J44.1 - CHRONIC OBSTRUCTIVE PULMONARY DISEASE W (ACUTE) EXACERBATION (2) Elevated troponin Code(s): R74.8 - ABNORMAL LEVELS OF OTHER SERUM ENZYMES (3) Demand ischemia Code(s): I24.8 - OTHER FORMS OF ACUTE ISCHEMIC HEART DISEASE (4) Acute diastolic (congestive) heart failure Code(s): I50.31 - ACUTE DIASTOLIC (CONGESTIVE) HEART FAILURE (5) HTN (hypertension) Code(s): I10 - ESSENTIAL (PRIMARY) HYPERTENSION Assessment/Plan Acute Hypoxic Respiratory Failure improved Acute COPD Exacerbation improving Acute Diastolic Heart Failure +Troponins likely Demand Ischemia HTN - Prednisone 60mg daily - inhaled bronchodilators standing and PRN - O2 to keep SpO2 >90% - lasix prn - DVT prophylaxis DR MOSLEY
--- NOTE | 2017-07-23 13:21 | PN ---
Progress Note, Physician Chief Complaint: SOB/Cough/Wheezing is better now Pt Raised BUN/ Creat with Renal failure Improving now History of Present Illness: Pt is doing better with IV hydration Pt had Both Eyes red not Improving more pain Pt wanted IV to be off - Current Medication List Current Medications: Active Medications Acetaminophen (Tylenol -) 650 mg PO Q4H PRN PRN Reason: PAIN LEVEL 4 - 6 Last Admin: 07/23/17 10:34 Dose: 650 mg Artificial Tears (Artificial Tears) 1 drop OU QID PRN PRN Reason: DRY EYES Last Admin: 07/22/17 10:29 Dose: 1 drop Budesonide/Formoterol Fumarate (Symbicort 160/4.5mcg -) 1 puff IH BID [facility] Last Admin: 07/22/17 22:03 Dose: 1 puff Ciprofloxacin (Ciloxan 0.3% Eye Drops -) 2 drop OD TID [facility] Last Admin: 07/23/17 06:03 Dose: 2 drop Heparin Sodium (Porcine) (Heparin -) 5,000 unit SQ TID [facility] Last Admin: 07/23/17 06:03 Dose: 5,000 unit Potassium Chloride 10 meq/ (Sodium Chloride) 1,005 mls @ 75 mls/hr IVPB ASDIR [facility] Last Admin: 07/23/17 06:06 Dose: 75 mls/hr Lisinopril (Prinivil) 5 mg PO BID [facility] Last Admin: 07/23/17 10:32 Dose: 5 mg Loratadine (Claritin -) 10 mg PO DAILY [facility] Methylprednisolone Sodium Succinate (Solu-Medrol -) 40 mg IVPUSH Q8H-IV [facility] Last Admin: 07/23/17 10:32 Dose: 40 mg Metoprolol Succinate (Toprol Xl -) 25 mg PO DAILY [facility] Last Admin: 07/23/17 10:32 Dose: 25 mg Montelukast Sodium (Singulair -) 10 mg PO HS [facility] Last Admin: 07/22/17 22:02 Dose: 10 mg Multivitamins/Minerals/Vitamin C (Tab-A-Vit -) 1 tab PO DAILY [facility] Last Admin: 07/23/17 10:33 Dose: 1 tab Ranitidine HCl (Zantac -) 150 mg PO BID [facility] Last Admin: 07/23/17 10:33 Dose: 150 mg Zolpidem Tartrate (Ambien -) 5 mg PO HS PRN PRN Reason: INSOMNIA Last Admin: 07/22/17 22:02 Dose: 5 mg - Objective Vital Signs: Vital Signs Temperature 98 F 07/23/17 10:00 Pulse Rate 87 07/23/17 10:00 Respiratory Rate 20 07/23/17 10:00 Blood Pressure 162/72 07/23/17 10:00 O2 Sat by Pulse Oximetry (%) 93 L 07/23/17 08:39 Constitutional: Yes: Anxious Eyes: Yes: Conjunctiva Clear, EOM Intact HENT: Yes: Atraumatic, Normocephalic Neck: Yes: Supple, Trachea Midline Cardiovascular: Yes: Regular Rate and Rhythm, S1, S2 Respiratory: Yes: Regular, CTA Bilaterally Gastrointestinal: Yes: Normal Bowel Sounds, Soft Musculoskeletal: Yes: Joint Stiffness Edema: No Peripheral Pulses WNL: Yes Neurological: Yes: Alert, Oriented, Cran Nerves II-XII Intact Labs: CBC, BMP 07/23/17 05:35 07/23/17 05:35 Problem List - Problems (1) Renal failure Code(s): N19 - UNSPECIFIED KIDNEY FAILURE (2) Bronchiectasis Code(s): J47.9 - BRONCHIECTASIS, UNCOMPLICATED (3) Acute exacerbation of chronic obstructive pulmonary disease Code(s): J44.1 - CHRONIC OBSTRUCTIVE PULMONARY DISEASE W (ACUTE) EXACERBATION (4) Acute hypoxemic respiratory failure Code(s): J96.01 - ACUTE RESPIRATORY FAILURE WITH HYPOXIA (5) Emphysema of lung Code(s): J43.9 - EMPHYSEMA, UNSPECIFIED (6) HTN (hypertension) Code(s): I10 - ESSENTIAL (PRIMARY) HYPERTENSION (7) Demand ischemia Code(s): I24.8 - OTHER FORMS OF ACUTE ISCHEMIC HEART DISEASE (8) Acute diastolic (congestive) heart failure Code(s): I50.31 - ACUTE DIASTOLIC (CONGESTIVE) HEART FAILURE (9) Anxiety Code(s): F41.9 - ANXIETY DISORDER, UNSPECIFIED (10) Conjunctivitis Code(s): H10.9 - UNSPECIFIED CONJUNCTIVITIS Assessment/Plan (1) Renal failure Code(s): N19 - UNSPECIFIED KIDNEY FAILURE (2) Bronchiectasis/Emphysema/Pul HTN: 2017 CT chest Code(s): J47.9 - BRONCHIECTASIS, UNCOMPLICATED (3) Acute exacerbation of chronic obstructive pulmonary disease Code(s): J44.1 - CHRONIC OBSTRUCTIVE PULMONARY DISEASE W (ACUTE) EXACERBATION (4) Acute hypoxemic respiratory failure Code(s): J96.01 - ACUTE RESPIRATORY FAILURE WITH HYPOXIA (5) Emphysema of lung Code(s): J43.9 - EMPHYSEMA, UNSPECIFIED (6) HTN (hypertension) Code(s): I10 - ESSENTIAL (PRIMARY) HYPERTENSION (7) Demand ischemia Code(s): I24.8 - OTHER FORMS OF ACUTE ISCHEMIC HEART DISEASE (8) Acute diastolic (congestive) heart failure Code(s): I50.31 - ACUTE DIASTOLIC (CONGESTIVE) HEART FAILURE (9) Anxiety Code(s): F41.9 - ANXIETY DISORDER, UNSPECIFIED (10) Conjunctivitis Code(s): H10.9 - UNSPECIFIED CONJUNCTIVITIS Renal failure/ IV fluids IV lasix on Hold steroids tapering PT Bonchiectasis/Emphysema last admission also patient had protracted course for recovery Hence Pt is on Rocephen and zithromax Pt OP 10 day zithromax did not help Pt having Burning Eyes on saline drops and cipro eye drops not improving R/o glaucoma Pt wanted to go home Pt will have visiting nurse services Pt will have home o2
[2017-07-23] MEDS: BUDESONIDE/FORMETEROL FUMARATE 160/4.5 mcg INHALER IH SCH ×2 (14:22→22:25)
[2017-07-23] MEDS: LORATADINE 10 MG TABLET PO SCH (19:17)
--- NOTE | 2017-07-23 19:30 | DS ---
Physical Examination Vital Signs: Vital Signs Temperature 98.0 F 07/23/17 18:00 Pulse Rate 73 07/23/17 18:00 Respiratory Rate 17 07/23/17 18:00 Blood Pressure 159/76 07/23/17 18:00 O2 Sat by Pulse Oximetry (%) 93 L 07/23/17 15:20 Constitutional: Yes: Anxious Eyes: Yes: Conjunctiva Clear, EOM Intact HENT: Yes: Atraumatic, Normocephalic Neck: Yes: Supple, Trachea Midline Cardiovascular: Yes: Regular Rate and Rhythm, S1, S2 Respiratory: Yes: Regular, CTA Bilaterally Gastrointestinal: Yes: Normal Bowel Sounds, Soft Labs: CBC, BMP 07/23/17 05:35 07/23/17 05:35 Discharge Summary Reason For Visit: CHF SOB COPD Current Active Problems Acute diastolic (congestive) heart failure (Acute) Bronchiectasis (Acute) CHF (congestive heart failure) (Acute) COPD (chronic obstructive pulmonary disease) (Acute) Conjunctivitis (Acute) Demand ischemia (Acute) Elevated troponin (Acute) Renal failure (Acute) SOB (shortness of breath) (Acute) Renal failure Condition: Fair - Instructions - Home Medications Comprehensive Discharge Medication List: Ambulatory Orders Proair 2puffs PO Q4h Budesonide/Formeterol Fumarate [SYMBICORT 160/4.5mcg -] 1 inh PO BID 02/24/17 Lisinopril 5 mg PO BID 02/25/17 Metoprolol Tartrate [Lopressor -] 25 mg PO BID Montelukast Na [Singulair -] 10 mg PO HS 02/25/17 Multivitamin [Poly-Vitamin] 1 each PO DAILY 04/28/17 Prednisone 20 mg PO BID 7days Later Prednisone 10 mg PO BID Augmentin 875 PO BID for 7 days Bacid one PO BID 10 days Ranitidine 150 Po BID [facility]T one daily Loratidine 10 Po daily Artificial Tears twice daily
[2017-07-23] MEDS ORDERED: methylPREDNISolone NA SUCC 40 MG/1 ML VIAL IVPUSH SCH (22:00)
[2017-07-23] MEDS: MONTELUKAST NA 10 MG TABLET PO SCH (22:25)
[2017-07-23] MEDS: ZOLPIDEM TARTRATE 5 MG TABLET PO PRN (22:28)
[2017-07-24] MEDS: CIPROFLOXACIN HCL 0.3% OPHTH 2.5ML BOTTLE OD SCH ×2 (05:24→13:35)
[2017-07-24] MEDS ORDERED: PT OWN MED DRAWER 7, Y5N ONE ×2 (06:18→13:34)
[2017-07-24 08:05] LABS: HEMATOCRIT 48.3 % (35.4-49); HEMOGLOBIN 16.2 GM/dL (11.7-16.9); MCH 32.4 pg (25.7-33.7); MCHC 33.4 g/dl (32.0-35.9); MEAN PLT VOLUME 9.2 fl (7.5-11.1); PLATELET COUNT 284 K/MM3 (134-434); RBC 4.99 M/mm3 (4.00-5.60); RDW 13.9 % (11.9-15.9); WHITE BLOOD COUNT 14.6 K/mm3 (4.0-10.0)
[2017-07-24 08:25] LABS: CHLORIDE 96 mmol/L (98-107); POTASSIUM 5.2 mmol/L (3.5-5.1); SODIUM 136 mmol/L (136-145)
[2017-07-24 08:41] LABS: ANION GAP 12 (8-16); BLOOD UREA NITROGEN 43 mg/dL (7-18); CALCIUM 9.2 mg/dL (8.5-10.1); CO2 28 mmol/L (21-32); CREATININE 1.5 mg/dL (0.7-1.3); GLUCOSE,RANDOM 89 mg/dL (74-106)
[2017-07-24] MEDS ORDERED: predniSONE 20 MG TABLET (UD) PO SCH (10:00)
[2017-07-24 10:14] LABS: ACANTHOCYTES 0; ANISOCYTOSIS 0; HELMET CELLS 0; HOWELL-JOLLY BODIES 0; MACROCYTOSIS 0; OVALOCYTE 0; PLATELET ESTIMATE NORMAL; ROULEAU 0; SICKELED CELLS 0; TARGET CELLS 0; TEAR DROP CELLS 0; TOXIC GRANULATION 0
--- NOTE | 2017-07-24 10:38 | PN ---
Progress Note, Physician Chief Complaint: SOB/Cough/Wheezing is better now Pt Raised BUN/ Creat with Renal failure Improving now But Pt refused IV fluids Fluids DCed Yesterday History of Present Illness: Pt is doing better with IV hydration Pt wanted IV to be off - Current Medication List Current Medications: Active Medications Acetaminophen (Tylenol -) 650 mg PO Q4H PRN PRN Reason: PAIN LEVEL 4 - 6 Last Admin: 07/23/17 14:21 Dose: 650 mg Artificial Tears (Artificial Tears) 1 drop OU QID PRN PRN Reason: DRY EYES Last Admin: 07/22/17 10:29 Dose: 1 drop Budesonide/Formoterol Fumarate (Symbicort 160/4.5mcg -) 1 puff IH BID [facility] Last Admin: 07/23/17 22:25 Dose: 1 puff Ciprofloxacin (Ciloxan 0.3% Eye Drops -) 2 drop OD TID [facility] Last Admin: 07/24/17 05:24 Dose: Not Given Potassium Chloride 10 meq/ (Sodium Chloride) 1,005 mls @ 75 mls/hr IVPB ASDIR [facility] Last Admin: 07/23/17 19:48 Dose: Not Given Lisinopril (Prinivil) 5 mg PO BID [facility] Last Admin: 07/23/17 22:24 Dose: 5 mg Loratadine (Claritin -) 10 mg PO DAILY [facility] Last Admin: 07/23/17 19:17 Dose: 10 mg Metoprolol Succinate (Toprol Xl -) 25 mg PO BID [facility] Last Admin: 07/23/17 22:25 Dose: 25 mg Montelukast Sodium (Singulair -) 10 mg PO HS [facility] Last Admin: 07/23/17 22:25 Dose: 10 mg Multivitamins/Minerals/Vitamin C (Tab-A-Vit -) 1 tab PO DAILY [facility] Last Admin: 07/23/17 10:33 Dose: 1 tab Prednisone (Deltasone -) 60 mg PO DAILY [facility] Ranitidine HCl (Zantac -) 150 mg PO BID [facility] Last Admin: 07/23/17 22:24 Dose: 150 mg - Objective Vital Signs: Vital Signs Temperature 98.6 F 07/24/17 06:00 Pulse Rate 63 07/24/17 06:00 Respiratory Rate 20 07/24/17 08:16 Blood Pressure 152/64 07/24/17 06:00 O2 Sat by Pulse Oximetry (%) 91 L 07/24/17 08:16 Constitutional: Yes: Anxious Eyes: Yes: Conjunctiva Clear, EOM Intact HENT: Yes: Atraumatic, Normocephalic Neck: Yes: Supple, Trachea Midline Cardiovascular: Yes: Regular Rate and Rhythm, S1, S2 Respiratory: Yes: Regular, CTA Bilaterally Gastrointestinal: Yes: Normal Bowel Sounds, Soft Musculoskeletal: Yes: Joint Stiffness Edema: No Peripheral Pulses WNL: Yes Neurological: Yes: Alert, Oriented, Cran Nerves II-XII Intact Labs: CBC, BMP 07/24/17 07:00 07/24/17 07:00 Problem List - Problems (1) Renal failure Code(s): N19 - UNSPECIFIED KIDNEY FAILURE (2) Bronchiectasis Code(s): J47.9 - BRONCHIECTASIS, UNCOMPLICATED (3) Acute exacerbation of chronic obstructive pulmonary disease Code(s): J44.1 - CHRONIC OBSTRUCTIVE PULMONARY DISEASE W (ACUTE) EXACERBATION (4) Acute hypoxemic respiratory failure Code(s): J96.01 - ACUTE RESPIRATORY FAILURE WITH HYPOXIA (5) Emphysema of lung Code(s): J43.9 - EMPHYSEMA, UNSPECIFIED (6) HTN (hypertension) Code(s): I10 - ESSENTIAL (PRIMARY) HYPERTENSION (7) Demand ischemia Code(s): I24.8 - OTHER FORMS OF ACUTE ISCHEMIC HEART DISEASE (8) Acute diastolic (congestive) heart failure Code(s): I50.31 - ACUTE DIASTOLIC (CONGESTIVE) HEART FAILURE (9) Anxiety Code(s): F41.9 - ANXIETY DISORDER, UNSPECIFIED (10) Conjunctivitis Code(s): H10.9 - UNSPECIFIED CONJUNCTIVITIS Assessment/Plan (1) Renal failure Code(s): N19 - UNSPECIFIED KIDNEY FAILURE (2) Bronchiectasis/Emphysema/Pul HTN: 2017 CT chest Code(s): J47.9 - BRONCHIECTASIS, UNCOMPLICATED (3) Acute exacerbation of chronic obstructive pulmonary disease Code(s): J44.1 - CHRONIC OBSTRUCTIVE PULMONARY DISEASE W (ACUTE) EXACERBATION (4) Acute hypoxemic respiratory failure Code(s): J96.01 - ACUTE RESPIRATORY FAILURE WITH HYPOXIA (5) Emphysema of lung Code(s): J43.9 - EMPHYSEMA, UNSPECIFIED (6) HTN (hypertension) Code(s): I10 - ESSENTIAL (PRIMARY) HYPERTENSION (7) Demand ischemia Code(s): I24.8 - OTHER FORMS OF ACUTE ISCHEMIC HEART DISEASE (8) Acute diastolic (congestive) heart failure Code(s): I50.31 - ACUTE DIASTOLIC (CONGESTIVE) HEART FAILURE (9) Anxiety Code(s): F41.9 - ANXIETY DISORDER, UNSPECIFIED (10) Conjunctivitis Code(s): H10.9 - UNSPECIFIED CONJUNCTIVITIS Renal failure/ IV fluids IV lasix on Hold steroids tapering PT Bonchiectasis/Emphysema last admission also patient had protracted course for recovery Hence Pt is on Rocephen and zithromax Pt OP 10 day zithromax did not help Pt having Burning Eyes on saline drops and cipro eye drops not improving R/o glaucoma Pt wanted to go home Pt will have visiting nurse services Pt will have home o2 discussed with workers' compensation magistrate today
[2017-07-24] MEDS: LORATADINE 10 MG TABLET PO SCH (10:58)
[2017-07-24] MEDS: RANITIDINE HCL 150 MG TABLET (FP) PO SCH (10:58)
[2017-07-24] MEDS: MULTIVITAMINS (DAILY MVI) TABLET (FP) PO SCH (10:58)
[2017-07-24] MEDS: LISINOPRIL 5 MG TABLET (FP) PO SCH (10:59)
[2017-07-24] MEDS: metoPROLOL SUCCINATE 25 MG TAB.SR.24H (FP) PO SCH (10:59)
[2017-07-24] MEDS: BUDESONIDE/FORMETEROL FUMARATE 160/4.5 mcg INHALER IH SCH (10:59)
--- NOTE | 2017-07-24 11:57 | PN ---
Progress Note, Physician History of Present Illness: doing well no issues - Current Medication List Current Medications: Active Medications Acetaminophen (Tylenol -) 650 mg PO Q4H PRN PRN Reason: PAIN LEVEL 4 - 6 Last Admin: 07/23/17 14:21 Dose: 650 mg Artificial Tears (Artificial Tears) 1 drop OU QID PRN PRN Reason: DRY EYES Last Admin: 07/22/17 10:29 Dose: 1 drop Budesonide/Formoterol Fumarate (Symbicort 160/4.5mcg -) 1 puff IH BID [facility] Last Admin: 07/24/17 10:59 Dose: 1 puff Ciprofloxacin (Ciloxan 0.3% Eye Drops -) 2 drop OD TID [facility] Last Admin: 07/24/17 05:24 Dose: Not Given Potassium Chloride 10 meq/ (Sodium Chloride) 1,005 mls @ 75 mls/hr IVPB ASDIR [facility] Last Admin: 07/23/17 19:48 Dose: Not Given Lisinopril (Prinivil) 5 mg PO BID [facility] Last Admin: 07/24/17 10:59 Dose: 5 mg Loratadine (Claritin -) 10 mg PO DAILY [facility] Last Admin: 07/24/17 10:58 Dose: 10 mg Metoprolol Succinate (Toprol Xl -) 25 mg PO BID [facility] Last Admin: 07/24/17 10:59 Dose: 25 mg Montelukast Sodium (Singulair -) 10 mg PO HS [facility] Last Admin: 07/23/17 22:25 Dose: 10 mg Multivitamins/Minerals/Vitamin C (Tab-A-Vit -) 1 tab PO DAILY [facility] Last Admin: 07/24/17 10:58 Dose: 1 tab Prednisone (Deltasone -) 60 mg PO DAILY [facility] Last Admin: 07/24/17 10:58 Dose: 60 mg Ranitidine HCl (Zantac -) 150 mg PO BID [facility] Last Admin: 07/24/17 10:58 Dose: 150 mg - Objective Vital Signs: Vital Signs Temperature 98 F 07/24/17 10:00 Pulse Rate 77 07/24/17 10:00 Respiratory Rate 20 07/24/17 10:00 Blood Pressure 156/95 07/24/17 10:00 O2 Sat by Pulse Oximetry (%) 91 L 07/24/17 08:16 Constitutional: Yes: No Distress, Calm Cardiovascular: Yes: Regular Rate and Rhythm Respiratory: Yes: Regular, CTA Bilaterally, Other (some congestion) Gastrointestinal: Yes: Normal Bowel Sounds, Soft Neurological: Yes: Alert, Oriented Psychiatric: Yes: Alert, Oriented Labs: CBC, BMP 07/24/17 07:00 07/24/17 07:00 Assessment/Plan johny List - Problems (1) Acute exacerbation of chronic obstructive pulmonary disease Code(s): J44.1 - CHRONIC OBSTRUCTIVE PULMONARY DISEASE W (ACUTE) EXACERBATION (2) Elevated troponin Code(s): R74.8 - ABNORMAL LEVELS OF OTHER SERUM ENZYMES (3) Demand ischemia Code(s): I24.8 - OTHER FORMS OF ACUTE ISCHEMIC HEART DISEASE (4) Acute diastolic (congestive) heart failure Code(s): I50.31 - ACUTE DIASTOLIC (CONGESTIVE) HEART FAILURE (5) HTN (hypertension) Code(s): I10 - ESSENTIAL (PRIMARY) HYPERTENSION plan continue current mgmt incentive camacho rest continue current mgmt patient stable
--- NOTE | 2017-07-24 13:25 | PN ---
Progress Note (short form) - Note Progress Note: PULMONARY States breathing continues to improve. Less cough and wheezing. Wants to go home. Last Vital Signs Temp Pulse Resp BP Pulse Ox 98 F 77 20 156/95 91 L 07/24/17 10:00 07/24/17 10:00 07/24/17 10:00 07/24/17 10:00 07/24/17 08:16 Gen: NAD at rest Heart: RRR Lung: distant breath sounds, scattered rhonchi Abd: soft, nontender Ext: no edema CBC, BMP 07/24/17 07:00 07/24/17 07:00 Active Medications Acetaminophen (Tylenol -) 650 mg PO Q4H PRN PRN Reason: PAIN LEVEL 4 - 6 Last Admin: 07/23/17 14:21 Dose: 650 mg Artificial Tears (Artificial Tears) 1 drop OU QID PRN PRN Reason: DRY EYES Last Admin: 07/22/17 10:29 Dose: 1 drop Budesonide/Formoterol Fumarate (Symbicort 160/4.5mcg -) 1 puff IH BID [facility] Last Admin: 07/24/17 10:59 Dose: 1 puff Ciprofloxacin (Ciloxan 0.3% Eye Drops -) 2 drop OD TID [facility] Last Admin: 07/24/17 05:24 Dose: Not Given Potassium Chloride 10 meq/ (Sodium Chloride) 1,005 mls @ 75 mls/hr IVPB ASDIR [facility] Last Admin: 07/23/17 19:48 Dose: Not Given Lisinopril (Prinivil) 5 mg PO BID [facility] Last Admin: 07/24/17 10:59 Dose: 5 mg Loratadine (Claritin -) 10 mg PO DAILY [facility] Last Admin: 07/24/17 10:58 Dose: 10 mg Metoprolol Succinate (Toprol Xl -) 25 mg PO BID [facility] Last Admin: 07/24/17 10:59 Dose: 25 mg Montelukast Sodium (Singulair -) 10 mg PO HS [facility] Last Admin: 07/23/17 22:25 Dose: 10 mg Multivitamins/Minerals/Vitamin C (Tab-A-Vit -) 1 tab PO DAILY [facility] Last Admin: 07/24/17 10:58 Dose: 1 tab Prednisone (Deltasone -) 60 mg PO DAILY [facility] Last Admin: 07/24/17 10:58 Dose: 60 mg Ranitidine HCl (Zantac -) 150 mg PO BID [facility] Last Admin: 07/24/17 10:58 Dose: 150 mg A/P Acute Hypoxic Respiratory Failure Acute COPD Exacerbation Acute Diastolic Heart Failure +Troponins likely Demand Ischemia HTN - prednisone taper - inhaled bronchodilators - s/p 5 day course of azithromycin - O2 to keep SpO2 >90% - lasix as needed - artificial tears - DVT prophylaxis - will need home O2 Problem List - Problems (1) Acute exacerbation of chronic obstructive pulmonary disease Code(s): J44.1 - CHRONIC OBSTRUCTIVE PULMONARY DISEASE W (ACUTE) EXACERBATION (2) Elevated troponin Code(s): R74.8 - ABNORMAL LEVELS OF OTHER SERUM ENZYMES (3) Demand ischemia Code(s): I24.8 - OTHER FORMS OF ACUTE ISCHEMIC HEART DISEASE (4) Acute diastolic (congestive) heart failure Code(s): I50.31 - ACUTE DIASTOLIC (CONGESTIVE) HEART FAILURE (5) HTN (hypertension) Code(s): I10 - ESSENTIAL (PRIMARY) HYPERTENSION
[2017-07-24 14:39] VITALS: PULSE 83; TEMP 98.8
[2017-07-24 14:47] VITALS: BP 175/97
== END 2017-07-24 16:26 | disposition home or self-care (01) | DRG 291 ==
LOC: JER 19:43 → JERBED 07-17 01:06 → UNDOADMIN 07-17 01:25 → J4S 07-17 20:31
PROVIDERS: ADMIT Internal Medicine; ATTEND Internal Medicine
DX: I11.0 Hypertensive heart disease with heart failure (principal); J96.01 Acute respiratory failure with hypoxia; J44.1 Chronic obstructive pulmonary disease with (acute) exacerbation; I24.8 Other forms of acute ischemic heart disease; N17.9 Acute kidney failure, unspecified; I50.31 Acute diastolic (congestive) heart failure; J47.9 Bronchiectasis, uncomplicated; F41.9 Anxiety disorder, unspecified; H10.9 Unspecified conjunctivitis; J43.9 Emphysema, unspecified
CPT/HCPCS: 36415; 71045-TC-FY; 80048; 80053; 82550; 82803; 83735; 83880; 84100; 84484; 85025; 93005; 93010; 93306-TC; 94010; 94640; 94761; 97116-GP; 97161-GP; 99285-25; J1644; J7030

== ENCOUNTER 2018-04-01 15:43 | Inpatient (IN) | payer OTHER ==
[2018-04-01] MEDS ORDERED: ALBUTEROL SO4 2.5/IPRATROPIUM 0.5 INH SOL 3 ML VIAL.NEB. NEB ONE ×3 (16:26→17:20)
[2018-04-01 16:42] VITALS: BMI 21.9
[2018-04-01] MEDS ORDERED: methylPREDNISolone NA SUCC 125 MG/2 ML VIAL IVPB ONE (17:13)
[2018-04-01] MEDS ORDERED: MAGNESIUM SULF 50% (8.12 MEQ/2 ML-1 GM VIAL) IVPB ONE (17:13)
--- NOTE | 2018-04-01 17:13 | PDOC ---
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 Pt states his was recently ill with a URI and he began to have a non productive cough and fevers 5 days ago. Pt went to PCP (Dr. Chen) who sent him by ambulance for a COPD exacerbation today. Pt admits to non productive cough with diffuse wheezing and SOB that improved after 1 round of duo nebs by ambulance. Denies CP, abdominal pain, changes in bowel/bladder habits. Past History - Past Medical History Allergies/Adverse Reactions: Allergies Allergy/AdvReac Type Severity Reaction Status Date / Time No Known Allergies Allergy Verified 04/01/18 16:16 Home Medications: Ambulatory Orders Budesonide/Formeterol Fumarate [SYMBICORT 160/4.5mcg -] 2 inh PO BID 02/24/17 Lisinopril 5 mg PO BID 02/25/17 Metoprolol Tartrate [Lopressor -] 25 mg PO BID 02/25/17 Montelukast Na [Singulair -] 10 mg PO HS 02/25/17 Multivitamin [Poly-Vitamin] 1 each PO DAILY 04/28/17 Albuterol 0.083% Nebulizer Magi [Ventolin 0.083%] 1 neb NEB TID 04/01/18 Azithromycin 500 mg PO DAILY 04/01/18 Ciprofloxacin HCl 500 mg PO DAILY 04/01/18 Dextran 70/Hypromellose [Artificial Tears] 1 each OP BID 04/01/18 Omeprazole 20 mg PO BID 04/01/18 Prednisone 15 mg PO DAILY 04/01/18 Cancer: Yes (PROSTATE) Cardiac Disorders: No CVA: No COPD: Yes (EMPHYSEMA) CHF: No Dementia: No Diabetes: No GI Disorders: No Disorders: No HTN: Yes Hypercholesterolemia: No Liver Disease: No Psychiatric Problems: Yes (BIPOLAR) Seizures: No Thyroid Disease: No - Surgical History Abdominal Surgery: No Appendectomy: No Cardiac Surgery: Yes (LEFT) Cholecystectomy: Yes Lung Surgery: No Neurologic Surgery: No Orthopedic Surgery: No - Immunization History Immunization Up to Date: Yes - Suicide/Smoking/Psychosocial Hx Smoking History: Former smoker Have you smoked in the past 12 months: No If you are a former smoker, when did you quit?: 50 YEARS AGO Information on smoking cessation initiated: No Hx Alcohol Use: No Drug/Substance Use Hx: No Substance Use Type: None Hx Substance Use Treatment: No Review of Systems - Review of Systems Constitutional: Yes: Fever. No: Chills, Weakness Respiratory: Yes: Cough (non productive) *Physical Exam - Vital Signs Last Vital Signs Temp Pulse Resp BP Pulse Ox 100.0 F H 92 H 36 H 173/85 H 98 04/01/18 16:48 04/01/18 16:12 04/01/18 16:12 04/01/18 16:12 04/01/18 16:18 Moderate Sedation - Procedure Monitoring Vital Signs: Procedure Monitoring Vital Signs Temperature 100.0 F H 04/01/18 16:48 Pulse Rate 92 H 04/01/18 16:12 Respiratory Rate 36 H 04/01/18 16:12 Blood Pressure 173/85 H 04/01/18 16:12 O2 Sat by Pulse Oximetry (%) 98 04/01/18 16:18 ED Treatment Course - LABORATORY CBC & Chemistry Diagram: 04/01/18 16:46 04/01/18 16:46 - RADIOLOGY Radiology Studies Ordered: Category Date Time Status CHEST X-RAY PORTABLE* [RAD] Stat Radiology 04/01/18 16:25 Ordered - Medications Given in the ED: ED Medications Discontinued Medications Generic Name Dose Route Start Last Admin Trade Name Freq PRN Reason Stop Dose Admin Albuterol/Ipratropium 1 amp 04/01/18 16:26 04/01/18 16:34 Duoneb - NEB 04/01/18 16:27 1 amp ONCE ONE Administration *DC/Admit/Observation/Transfer Diagnosis at time of Disposition: COPD exacerbation Pneumonia Qualifiers: Pneumonia type: due to unspecified organism - Discharge Dispostion Condition at time of disposition: Stable Decision to Admit order: Yes - Referrals - Patient Instructions - Post Discharge Activity
[2018-04-01] MEDS ORDERED: MAGNESIUM 1GM/D5W - 2 GM/200 ML IVPB IVPB ONE (17:21)
[2018-04-01] MEDS ORDERED: methylPREDNISolone NA SUCC 125 MG/2 ML VIAL ONE (17:21)
[2018-04-01 17:55] LABS: VENOUS PC02 50.1 mmHg (38-52); VENOUS PH 7.37 (7.32-7.42); VENOUS PO2 30.7 mmHg (28-48)
[2018-04-01 17:56] LABS: URINE APPEARANCE CLEAR; URINE BILIRUBIN NEGATIVE (<2.0 mg/dL); URINE COLOR YELLOW; URINE GLUCOSE (UA) NEGATIVE (NEGATIVE); URINE KETONE TRACE (NEGATIVE); URINE LEUK ESTERASE NEGATIVE (NEGATIVE); URINE NITRITE NEGATIVE (NEGATIVE); URINE PROTEIN 1+ (NEGATIVE); URINE UROBILINOGEN NEGATIVE mg/dL (0.2-1.0)
[2018-04-01 18:00] LABS: BASO % 0.2 % (0-2.0); HEMATOCRIT 41.5 % (35.4-49); HEMOGLOBIN 14.4 GM/dL (11.7-16.9); LYMPH % 1.8 % (8-40); MCH 31.8 pg (25.7-33.7); MCHC 34.8 g/dl (32.0-35.9); MEAN CELL VOLUME 91.3 fl (80-96); MEAN PLT VOLUME 8.9 fl (7.5-11.1); MONO % 1.8 % (3.8-10.2); NEUT % 96.2 % (42.8-82.8); PLATELET COUNT 270 K/MM3 (134-434); RBC 4.54 M/mm3 (4.00-5.60); RDW 14.6 % (11.9-15.9); WHITE BLOOD COUNT 14.6 K/mm3 (4.0-10.0)
[2018-04-01 18:11] LABS: URINE HYALINE CAST 1 /lpf; URINE MUCUS RARE
[2018-04-01 18:13] LABS: INR 1.07 (0.83-1.09); PROTHROMBIN TIME (PATIENT) 12.6 SEC (9.7-13.0)
[2018-04-01] MEDS ORDERED: PIPERACILLIN/TAZOB 4.5 GM 4.5 GM in DEXTROSE 5%-WATER 100 ML IVPB ONE (18:15)
[2018-04-01] MEDS ORDERED: VANCOMYCIN 1,000 MG in DEXTROSE 5%-WATER - 250 ML IVPB SCH (18:15)
[2018-04-01 18:16] LABS: ACTIVATED PTT 26.1 SECONDS (25.2-36.5)
[2018-04-01] MEDS ORDERED: PIPERACILLIN/TAZOB 4.5 GM 4.5 GM/100 ML BAG IVPB ONE (18:16)
[2018-04-01] MEDS ORDERED: VANCOMYCIN 1 GRAM (PRE-DOCKED) 1,000 MG/250 ML BAG IVPB ONE (18:17)
[2018-04-01 18:20] LABS: ALBUMIN 4.1 g/dl (3.4-5.0); ALK PHOS 83 U/L (45-117); ANION GAP 9 MMOL/L (8-16); BILIRUBIN,TOTAL 0.7 mg/dL (0.2-1); BLOOD UREA NITROGEN 42 mg/dL (7-18); CALCIUM 9.5 mg/dL (8.5-10.1); CHLORIDE 104 mmol/L (98-107); CO2 28 mmol/L (21-32); CREATININE 1.5 mg/dL (0.55-1.3); GLUCOSE,RANDOM 121 mg/dL (74-106); POTASSIUM 4.7 mmol/L (3.5-5.1); SGOT/AST 20 U/L (15-37); SGPT/ALT 12 U/L (13-61); SODIUM 141 mmol/L (136-145); TOT PROT 6.9 g/dl (6.4-8.2)
[2018-04-01] MEDS ORDERED: AZITHROMYCIN IVPB 500 MG in DEXTROSE 5%-WATER - 250 ML IVPB ONE (18:30)
--- NOTE | 2018-04-01 18:47 | PDOC ---
Attending Attestation - Resident Resident Name: Heber Sawant - ED Attending Attestation I have performed the following: I have examined & evaluated the patient, The case was reviewed & discussed with the resident, I agree w/resident's findings & plan, Exceptions are as noted - HPI HPI: 04/01/18 18:45 The patient is a 88 year old male, with a significant PMH of HTN and COPD on symbicort who presents to the emergency department sent in by Dr. Chen for evaluation of severe shortness of breath for the past two days. Patient is also complaining of nonproductive cough. Dr. Chen states the patient is often noncompliant with his meds. EMS administered one neb en route to the ED. Patient denies sick contact or recent travel. Patient has approximately 1-2 COPD exacerbation every year. Patient is a former smoker. The patient denies chest pain, palpitations, headache and dizziness. Denies fever, chills, nausea, vomit, diarrhea and constipation. Denies dysuria, frequency, urgency and hematuria. Allergies: NKA Past surgical history: None reported. Social history: Former smoker. No reported alcohol, drug or cigarette use. PCP: Dr. Chen - Physicial Exam PE: 04/01/18 18:47 GENERAL: Awake, alert, and fully oriented, in mild resp distress EYES: EOMI, sclera anicteric, conjunctiva clear ENT: Oropharynx clear without exudates. Moist mucosa LUNGS: Diffuse wheezing and course BS, no crackles HEART: Regular rate and rhythm, normal S1 and S2, no murmurs, rubs or gallops ABDOMEN: Soft, nontender, normoactive bowel sounds. No guarding, no rebound. No masses EXTREMITIES: Normal range of motion, no edema. No cords, erythema, or tenderness NEUROLOGICAL: Normal speech, cranial nerves intact, 5/5 strength in all 4 extremities, normal sensation to light touch in all 4 extremities, normal cerebellar exam, normal gait, normal tone SKIN: Warm, Dry, normal turgor, no rashes or lesions noted. - Medical Decision Making 04/01/18 18:50 88yo M hx COPD presents to the ED with SOB, wheezing, course BS concerning for COPD exacerbation. PT s/p nebs, steroids, Mg, feels better, working less but still with prolonged exp phase and mild wheezing. Pt admitted for COPD exacerbation to Dr. Aaron (endorsed to DENISE Wayne by Dr. Sawant)
[2018-04-01] MEDS ORDERED: AZITHROMYCIN IVPB 500 MG/250 ML BAG IVPB ONE (18:53)
[2018-04-01 20:03] LABS: ANISOCYTOSIS 1+; MACROCYTOSIS 1+; PLATELET ESTIMATE ADEQUATE
--- NOTE | 2018-04-01 20:32 | HP ---
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 Who presents with worsening shortness of breath x 2 days. Pt states his was recently ill with a URI and he began to have a non productive cough and fevers 5 days ago. Pt went to PCP (Dr. Chen) who sent him by ambulance for a COPD exacerbation today. Pt admits to having a non productive cough with diffuse wheezing and SOB that improved after 1 round of duo nebs by ambulance. Patient denies chills, dizziness, BEEBE, CP, palpitations, AP, N/V/D,dysuria. History Source: Patient Limitations to Obtaining History: No Limitations - Past Medical History Cardiovascular: Yes: HTN Pulmonary: Yes: COPD, Other (Emphysema) - Smoking History Smoking history: Former smoker Have you smoked in the past 12 months: No If you are a former smoker, when did you quit?: 50 YEARS AGO - Alcohol/Substance Use Hx Alcohol Use: No History of Substance Use: reports: None - Social History Usual Living Arrangement: Yes: Alone ADL: Independent History of Recent Travel: No Home Medications - Allergies Allergies/Adverse Reactions: Allergies Allergy/AdvReac Type Severity Reaction Status Date / Time No Known Allergies Allergy Verified 04/01/18 16:16 - Home Medications Home Medications: Ambulatory Orders Budesonide/Formeterol Fumarate [SYMBICORT 160/4.5mcg -] 2 inh PO BID 02/24/17 Lisinopril 5 mg PO BID 02/25/17 Metoprolol Tartrate [Lopressor -] 25 mg PO BID 02/25/17 Montelukast Na [Singulair -] 10 mg PO HS 02/25/17 Multivitamin [Poly-Vitamin] 1 each PO DAILY 04/28/17 Albuterol 0.083% Nebulizer Magi [Ventolin 0.083%] 1 neb NEB TID 04/01/18 Azithromycin 500 mg PO DAILY 04/01/18 Ciprofloxacin HCl 500 mg PO DAILY 04/01/18 Dextran 70/Hypromellose [Artificial Tears] 1 each OP BID 04/01/18 Omeprazole 20 mg PO BID 04/01/18 Prednisone 15 mg PO DAILY 04/01/18 Review of Systems - Review of Systems Constitutional: reports: Fever Eyes: reports: No Symptoms HENT: reports: No Symptoms Neck: reports: No Symptoms Cardiovascular: reports: Shortness of Breath Respiratory: reports: Cough, SOB, SOB on Exertion, Wheezing Gastrointestinal: reports: No Symptoms Genitourinary: reports: No Symptoms Breasts: reports: No Symptoms Reported Musculoskeletal: reports: No Symptoms Integumentary: reports: No Symptoms Neurological: reports: No Symptoms Endocrine: reports: No Symptoms Hematology/Lymphatic: reports: No Symptoms Psychiatric: reports: No Symptoms Physical Examination Vital Signs: Vital Signs Temperature 99.0 F 04/01/18 19:21 Pulse Rate 78 04/01/18 19:21 Respiratory Rate 28 H 04/01/18 19:21 Blood Pressure 153/66 04/01/18 19:21 O2 Sat by Pulse Oximetry (%) 98 04/01/18 19:21 Constitutional: Yes: Mild Distress, Thin Eyes: Yes: Conjunctiva Clear, EOM Intact, PERRL HENT: Yes: WNL, Atraumatic, Normocephalic Neck: Yes: WNL, Supple, Trachea Midline Cardiovascular: Yes: Regular Rate and Rhythm, S1, S2 Respiratory: Yes: On Nasal O2, Rhonchi, SOB, SOB on Exertion, Wheezes Gastrointestinal: Yes: WNL, Normal Bowel Sounds, Soft Renal/: Yes: WNL Breast(s): Yes: WNL Musculoskeletal: Yes: WNL Edema: No Peripheral Pulses WNL: Yes Neurological: Yes: WNL, Alert, Oriented, Cran Nerves II-XII Intact ...Motor Strength: WNL Psychiatric: Yes: WNL, Alert, Oriented Labs: CBC, BMP 04/01/18 16:46 04/01/18 16:46 Laboratory Results - last 24 hr 04/01/18 04/01/18 04/01/18 16:46 16:46 16:46 WBC 14.6 H RBC 4.54 Hgb 14.4 Hct 41.5 MCV 91.3 MCH 31.8 MCHC 34.8 RDW 14.6 Plt Count 270 MPV 8.9 Absolute Neuts (auto) 14.1 H Neutrophils % 96.2 H Neutrophils % (Manual) 85.0 H Band Neutrophils % 10.0 Lymphocytes % 1.8 L D Lymphocytes % (Manual) 3.0 L D Monocytes % 1.8 L Monocytes % (Manual) 2 L Eosinophils % 0.0 Basophils % 0.2 Nucleated RBC % 0 Platelet Estimate Adequate Platelet Comment No clumping noted Anisocytosis 1+ Macrocytosis 1+ PT with INR 12.60 INR 1.07 PTT (Actin FS) 26.1 VBG pH POC VBG pCO2 POC VBG pO2 Mixed VBG HCO3 Sodium 141 Potassium 4.7 Chloride 104 Carbon Dioxide 28 Anion Gap 9 BUN 42 H Creatinine 1.5 H Creat Clearance w eGFR 44.37 Random Glucose 121 H Lactic Acid Calcium 9.5 Total Bilirubin 0.7 AST 20 ALT 12 L Alkaline Phosphatase 83 Troponin I 0.02 Total Protein 6.9 Albumin 4.1 Urine Color Urine Appearance Urine pH Ur Specific [place] Urine Protein Urine Glucose (UA) Urine Ketones Urine Blood Urine Nitrite Urine Bilirubin Urine Urobilinogen Ur Leukocyte Esterase Urine WBC (Auto) Urine RBC (Auto) Hyaline Casts Urine Mucus Influenza A (Rapid) Influenza B (Rapid) 04/01/18 04/01/18 04/01/18 16:46 16:46 16:46 WBC RBC Hgb Hct MCV MCH MCHC RDW Plt Count MPV Absolute Neuts (auto) Neutrophils % Neutrophils % (Manual) Band Neutrophils % Lymphocytes % Lymphocytes % (Manual) Monocytes % Monocytes % (Manual) Eosinophils % Basophils % Nucleated RBC % Platelet Estimate Platelet Comment Anisocytosis Macrocytosis PT with INR INR PTT (Actin FS) VBG pH 7.37 POC VBG pCO2 50.1 D POC VBG pO2 30.7 D Mixed VBG HCO3 28.1 H Sodium Cancelled Potassium Cancelled Chloride Cancelled Carbon Dioxide Cancelled Anion Gap Cancelled BUN Cancelled Creatinine Cancelled Creat Clearance w eGFR Cancelled Random Glucose Cancelled Lactic Acid Calcium Cancelled Total Bilirubin Cancelled AST Cancelled ALT Cancelled Alkaline Phosphatase Cancelled Troponin I Total Protein Cancelled Albumin Cancelled Urine Color Yellow Urine Appearance Clear Urine pH 5.0 Ur Specific [place] 1.023 Urine Protein 1+ H Urine Glucose (UA) Negative Urine Ketones Trace H Urine Blood Negative Urine Nitrite Negative Urine Bilirubin Negative Urine Urobilinogen Negative Ur Leukocyte Esterase Negative Urine WBC (Auto) 1 Urine RBC (Auto) 2 Hyaline Casts 1 Urine Mucus Rare Influenza A (Rapid) Influenza B (Rapid) 04/01/18 04/01/18 04/01/18 16:46 16:46 18:30 WBC RBC Hgb Hct MCV MCH MCHC RDW Plt Count MPV Absolute Neuts (auto) Neutrophils % Neutrophils % (Manual) Band Neutrophils % Lymphocytes % Lymphocytes % (Manual) Monocytes % Monocytes % (Manual) Eosinophils % Basophils % Nucleated RBC % Platelet Estimate Platelet Comment Anisocytosis Macrocytosis PT with INR INR PTT (Actin FS) VBG pH POC VBG pCO2 POC VBG pO2 Mixed VBG HCO3 Sodium Potassium Chloride Carbon Dioxide Anion Gap BUN Creatinine Creat Clearance w eGFR Random Glucose Lactic Acid 1.7 Calcium Total Bilirubin AST ALT Alkaline Phosphatase Troponin I Cancelled Total Protein Albumin Urine Color Urine Appearance Urine pH Ur Specific [place] Urine Protein Urine Glucose (UA) Urine Ketones Urine Blood Urine Nitrite Urine Bilirubin Urine Urobilinogen Ur Leukocyte Esterase Urine WBC (Auto) Urine RBC (Auto) Hyaline Casts Urine Mucus Influenza A (Rapid) Negative Influenza B (Rapid) Negative 04/01/18 21:45 WBC RBC Hgb Hct MCV MCH MCHC RDW Plt Count MPV Absolute Neuts (auto) Neutrophils % Neutrophils % (Manual) Band Neutrophils % Lymphocytes % Lymphocytes % (Manual) Monocytes % Monocytes % (Manual) Eosinophils % Basophils % Nucleated RBC % Platelet Estimate Platelet Comment Anisocytosis Macrocytosis PT with INR INR PTT (Actin FS) VBG pH POC VBG pCO2 POC VBG pO2 Mixed VBG HCO3 Sodium Potassium Chloride Carbon Dioxide Anion Gap BUN Creatinine Creat Clearance w eGFR Random Glucose Lactic Acid 3.4 H* Calcium Total Bilirubin AST ALT Alkaline Phosphatase Troponin I Total Protein Albumin Urine Color Urine Appearance Urine pH Ur Specific [place] Urine Protein Urine Glucose (UA) Urine Ketones Urine Blood Urine Nitrite Urine Bilirubin Urine Urobilinogen Ur Leukocyte Esterase Urine WBC (Auto) Urine RBC (Auto) Hyaline Casts Urine Mucus Influenza A (Rapid) Influenza B (Rapid) Current Medications Generic Name Dose Route Start Last Admin Trade Name Freq PRN Reason Stop Dose Admin Albuterol Sulfate 1 amp 04/01/18 20:00 04/01/18 21:37 Ventolin 0.083% Nebulizer Soln - NEB 1 amp RTID NADIA Administration Artificial Tears 1 drop 04/01/18 22:00 04/01/18 22:00 Artificial Tears OU Not Given BID NADIA Budesonide/Formoterol Fumarate 2 puff 04/01/18 22:00 04/01/18 22:00 Symbicort 160/4.5mcg - IH Not Given BID NADIA Carbidopa/Levodopa 1 each 04/01/18 22:00 04/02/18 05:32 Sinemet 25/100 - PO 1 each TID NADIA Administration Heparin Sodium (Porcine) 5,000 unit 04/01/18 22:00 04/02/18 05:32 Heparin - SQ 5,000 unit TID NADIA Administration Vancomycin HCl 1,000 mg/ 250 mls @ 200 mls/hr 04/01/18 18:15 04/01/18 18:51 Dextrose IVPB 200 mls/hr Q24H NADIA Administration Protocol Dextrose/Sodium Chloride 1,000 mls @ 42 mls/hr 04/01/18 21:45 04/01/18 22:00 D5-1/2ns - IV 42 mls/hr ASDIR NADIA Administration Piperacillin Sod/Tazobactam 50 mls @ 100 mls/hr 04/02/18 02:30 04/02/18 02:30 Sod 3.375 gm/ Dextrose IVPB 100 mls/hr Q8H-IV NADIA Administration Protocol Lisinopril 5 mg 04/01/18 22:00 04/01/18 21:09 Prinivil PO 5 mg BID NADIA Administration Methylprednisolone Sodium Succinate 40 mg 04/01/18 18:45 04/02/18 02:20 Solu-Medrol - IVPUSH 40 mg Q8H-IV NADIA Administration Metoprolol Tartrate 25 mg 04/01/18 22:00 04/01/18 21:09 Lopressor - PO 25 mg BID NADIA Administration Mirtazapine 30 mg 04/01/18 22:00 04/01/18 22:00 Remeron - PO 30 mg HS NADIA Administration Montelukast Sodium 10 mg 04/01/18 22:00 04/01/18 21:09 Singulair - PO 10 mg HS NADIA Administration Multivitamins/Minerals/Vitamin C 1 tab 04/02/18 10:00 Tab-A-Vit - PO DAILY NADIA Pantoprazole Sodium 20 mg 04/01/18 22:00 04/01/18 21:09 Protonix - PO 20 mg BID NADIA Administration Sertraline HCl 50 mg 04/02/18 10:00 Zoloft - PO DAILY NADIA Intake & Output 03/30/18 03/31/18 04/01/18 04/02/18 23:59 23:59 23:59 23:59 Intake Total 292 Balance 292 Weight 63.503 kg Imaging - Results Chest X-ray: Report Reviewed, Image Reviewed EKG: Image Reviewed (NSR with sinus arrhythmia 79bpm QT/QTc 376/431) Problem List - Problems (1) Acute exacerbation of chronic obstructive pulmonary disease Assessment/Plan: Likely secondary to bacterial infection vs URI vs Emphysema Chest xray reviewed Appreciate Pulm consult Appreciate ID consult Continue duonebs Peak Flow Continue home meds O2 CBC, BMP in am Code(s): J44.1 - CHRONIC OBSTRUCTIVE PULMONARY DISEASE W (ACUTE) EXACERBATION (2) SOB (shortness of breath) Assessment/Plan: See above Code(s): R06.02 - SHORTNESS OF BREATH (3) CHF (congestive heart failure) Assessment/Plan: stable Continue home meds Code(s): I50.9 - HEART FAILURE, UNSPECIFIED (4) Emphysema of lung Assessment/Plan: Oxygen Therapy Duonebs Code(s): J43.9 - EMPHYSEMA, UNSPECIFIED (5) HTN (hypertension) Assessment/Plan: sub optimal Monitor BP Continue home meds with parameters Code(s): I10 - ESSENTIAL (PRIMARY) HYPERTENSION (6) Anxiety Assessment/Plan: stable Continue home meds Code(s): F41.9 - ANXIETY DISORDER, UNSPECIFIED Assessment/Plan 88 y/o man admitted for Acute on Chronic COPD Exacerbation for further evaluation of their emergent condition. Plan: FEN PO fluids as tolerated Replete lytes prn Low Na Diet DVT ppx OOb SCDs Heparin SQ Dispo: Requires Inpatient Care Visit type - Emergency Visit Emergency Visit: Yes ED Registration Date: 04/01/18 Care time: The patient presented to the Emergency Department on the above date and was hospitalized for further evaluation of their emergent condition. - New Patient This patient is new to me today: Yes Date on this admission: 04/01/18 - Critical Care Critical Care patient: No
[2018-04-01] MEDS: methylPREDNISolone NA SUCC 40 MG/1 ML VIAL IVPUSH SCH (20:39)
[2018-04-01] MEDS: LISINOPRIL 5 MG TABLET (FP) PO SCH (21:09)
[2018-04-01] MEDS: MONTELUKAST NA 10 MG TABLET PO SCH (21:09)
[2018-04-01] MEDS: HEPARIN NA (PORCINE) 5,000 UNITS/ML 1ML VIAL SQ SCH (21:09)
[2018-04-01] MEDS: METOPROLOL TARTRATE 25 MG TABLET (FP) PO SCH (21:09)
[2018-04-01] MEDS: ALBUTEROL SO4 0.083% IH SOL 2.5 MG/3 ML VIAL.NEB. NEB SCH (21:37)
[2018-04-01] MEDS: DEXTROSE 5%-0.45% SALINE 1,000 ML IV SCH (22:00)
[2018-04-01] MEDS: MIRTAZAPINE 30 MG TABLET (FP) PO SCH (22:00)
[2018-04-01] MEDS: BUDESONIDE/FORMETEROL FUMARATE 160/4.5 mcg INHALER IH SCH (22:00)
[2018-04-01] MEDS: ARTIFICIAL TEARS (POLYVINYL ALCOHOL) OPTH DROPS OU SCH (22:00)
[2018-04-01] MEDS ORDERED: PATIENT'S OWN MEDICATION (NON-FORMULARY) (Dextran 70/Hypromellose [Artificial Tears] 1 EAC OP SCH (22:00)
[2018-04-01] MEDS ORDERED: PANTOPRAZOLE 20 MG TABLET (FP) PO SCH (22:00)
[2018-04-01] MEDS ORDERED: PATIENT'S OWN MEDICATION (NON-FORMULARY) (Omeprazole [Omeprazole] 20 MG) PO SCH (22:00)
[2018-04-01] MEDS: CARBIDOPA/LEVODOPA 25/100 TABLET (FP) PO SCH (22:00)
[2018-04-02] MEDS ORDERED: MIRTAZAPINE 15 MG TABLET (FP) ONE ×3 (01:58→21:39)
[2018-04-02] MEDS ORDERED: PIPERACILLIN/TAZOB 3.375 GM 3.375 GM in DEXTROSE 5%-WATER - 50 ML IVPB SCH (02:00)
[2018-04-02] MEDS: methylPREDNISolone NA SUCC 40 MG/1 ML VIAL IVPUSH SCH ×3 (02:20→17:20)
[2018-04-02] MEDS: PIPERACILLIN/TAZOB 3.375 GM 3.375 GM in DEXTROSE 5%-WATER - 50 ML IVPB SCH ×3 (02:30→17:20)
[2018-04-02] MEDS ORDERED: SODIUM CHLORIDE 250 ML IV STA (05:08)
[2018-04-02] MEDS: HEPARIN NA (PORCINE) 5,000 UNITS/ML 1ML VIAL SQ SCH ×3 (05:32→21:42)
[2018-04-02] MEDS: CARBIDOPA/LEVODOPA 25/100 TABLET (FP) PO SCH ×3 (05:32→21:42)
[2018-04-02] MEDS: ALBUTEROL SO4 0.083% IH SOL 2.5 MG/3 ML VIAL.NEB. NEB SCH ×3 (07:30→20:50)
[2018-04-02 07:39] LABS: HEMATOCRIT 37.9 % (35.4-49); HEMOGLOBIN 13.5 GM/dL (11.7-16.9); MCH 32.5 pg (25.7-33.7); MCHC 35.5 g/dl (32.0-35.9); MEAN CELL VOLUME 91.4 fl (80-96); MEAN PLT VOLUME 8.9 fl (7.5-11.1); PLATELET COUNT 230 K/MM3 (134-434); RBC 4.15 M/mm3 (4.00-5.60); RDW 14.6 % (11.9-15.9)
[2018-04-02 08:24] LABS: ANION GAP 9 MMOL/L (8-16); BLOOD UREA NITROGEN 37 mg/dL (7-18); CALCIUM 8.8 mg/dL (8.5-10.1); CHLORIDE 106 mmol/L (98-107); CO2 26 mmol/L (21-32); CREATININE 1.4 mg/dL (0.55-1.3); GLUCOSE,RANDOM 159 mg/dL (74-106); MAGNESIUM 2.7 mg/dL (1.8-2.4); POTASSIUM 5.1 mmol/L (3.5-5.1); SODIUM 141 mmol/L (136-145)
[2018-04-02] MEDS ORDERED: PIPERACILLIN/TAZOB 2.25 GM 2.25 GM in DEXTROSE 5%-WATER - 50 ML IVPB ONE (08:40)
[2018-04-02] MEDS ORDERED: PIPERACILLIN/TAZOBACTAM 3.375 GM VIAL IVPB ONE ×2 (09:09→17:08)
[2018-04-02] MEDS ORDERED: PT OWN MED DRAWER 7, Y5N ONE ×2 (09:09→21:40)
[2018-04-02] MEDS ORDERED: DEXTROSE 5%-WATER - 50 ML IVPB ONE ×2 (09:09→17:09)
[2018-04-02] MEDS: SERTRALINE HCL 50 MG TABLET (FP) PO SCH (09:14)
[2018-04-02] MEDS: MULTIVITAMINS (DAILY MVI) TABLET (FP) PO SCH (09:14)
[2018-04-02] MEDS: METOPROLOL TARTRATE 25 MG TABLET (FP) PO SCH ×2 (09:14→21:43)
[2018-04-02] MEDS: LISINOPRIL 5 MG TABLET (FP) PO SCH ×2 (09:14→21:43)
[2018-04-02] MEDS: ARTIFICIAL TEARS (POLYVINYL ALCOHOL) OPTH DROPS OU SCH ×2 (09:15→21:43)
[2018-04-02] MEDS: BUDESONIDE/FORMETEROL FUMARATE 160/4.5 mcg INHALER IH SCH ×2 (09:15→21:42)
[2018-04-02] MEDS ORDERED: PATIENT'S OWN MEDICATION (NON-FORMULARY) (Multivitamin [Poly-Vitamin] 1 EACH) PO SCH (10:00)
--- NOTE | 2018-04-02 11:49 | PN ---
Progress Note, Physician Chief Complaint: 88 y/o man with significant past medical history of HTN, COPD, Emphysema, Former 2PPD X 50 year smoking (quit in 1999). Who presents with worsening shortness of breath x 2 days. Pt states his was recently ill with a URI and he began to have a non productive cough and fevers 5 days ago. Pt went to PCP (Dr. Chen) who sent him by ambulance for a COPD exacerbation today. Pt admits to having a non productive cough with diffuse wheezing and SOB that improved after 1 round of duo nebs by ambulance. Patient denies chills, dizziness, BEEBE, CP, palpitations, AP, N/V/D,dysuria. History of Present Illness: Cough, SOB,URTI - Current Medication List Current Medications: Active Medications Albuterol Sulfate (Ventolin 0.083% Nebulizer Soln -) 1 amp NEB RTID [facility] Last Admin: 04/02/18 07:30 Dose: 1 amp Artificial Tears (Artificial Tears) 1 drop OU BID [facility] Last Admin: 04/02/18 09:15 Dose: Not Given Budesonide/Formoterol Fumarate (Symbicort 160/4.5mcg -) 2 puff IH BID [facility] Last Admin: 04/02/18 09:15 Dose: 2 puff Carbidopa/Levodopa (Sinemet 25/100 -) 1 each PO TID [facility] Last Admin: 04/02/18 05:32 Dose: 1 each Heparin Sodium (Porcine) (Heparin -) 5,000 unit SQ TID [facility] Last Admin: 04/02/18 05:32 Dose: 5,000 unit Dextrose/Sodium Chloride (D5-1/2ns -) 1,000 mls @ 42 mls/hr IV ASDIR [facility] Last Admin: 04/01/18 22:00 Dose: 42 mls/hr Piperacillin Sod/Tazobactam (Sod 3.375 gm/ Dextrose) 50 mls @ 100 mls/hr IVPB Q8H-IV NADIA; Protocol Last Admin: 04/02/18 09:14 Dose: 100 mls/hr Vancomycin HCl (Vancomycin (Pre-Docked)) 1,000 mg in 250 mls @ 250 mls/hr IVPB Q24H [facility]; Protocol Lisinopril (Prinivil) 5 mg PO BID [facility] Last Admin: 12/13/18 09:14 Dose: 5 mg Methylprednisolone Sodium Succinate (Solu-Medrol -) 40 mg IVPUSH Q8H-IV [facility] Last Admin: 04/02/18 09:14 Dose: 40 mg Metoprolol Tartrate (Lopressor -) 25 mg PO BID [facility] Last Admin: 04/02/18 09:14 Dose: 25 mg Mirtazapine (Remeron -) 30 mg PO HS [facility] Last Admin: 04/01/18 22:00 Dose: 30 mg Montelukast Sodium (Singulair -) 10 mg PO HS [facility] Last Admin: 04/01/18 21:09 Dose: 10 mg Multivitamins/Minerals/Vitamin C (Tab-A-Vit -) 1 tab PO DAILY [facility] Last Admin: 04/02/18 09:14 Dose: 1 tab Sertraline HCl (Zoloft -) 50 mg PO DAILY [facility] Last Admin: 04/02/18 09:14 Dose: 50 mg - Objective Vital Signs: Vital Signs Temperature 97.6 F 04/02/18 06:00 Pulse Rate 52 L 04/02/18 06:00 Respiratory Rate 28 H 04/02/18 06:00 Blood Pressure 147/62 04/02/18 06:00 O2 Sat by Pulse Oximetry (%) 100 04/02/18 09:00 Constitutional: Yes: No Distress Eyes: Yes: Conjunctiva Clear HENT: Yes: Atraumatic, Normocephalic Neck: Yes: Supple, Trachea Midline Cardiovascular: Yes: Regular Rate and Rhythm, S1, S2 Respiratory: Yes: Regular, CTA Bilaterally Gastrointestinal: Yes: Normal Bowel Sounds, Soft Musculoskeletal: Yes: Joint Stiffness Edema: No Peripheral Pulses WNL: Yes Psychiatric: Yes: Alert, Oriented Labs: CBC, BMP 04/02/18 06:00 04/02/18 06:00 INR, PTT INR 1.07 (0.83-1.09) 04/01/18 16:46 Problem List - Problems (1) Acute exacerbation of chronic obstructive pulmonary disease Code(s): J44.1 - CHRONIC OBSTRUCTIVE PULMONARY DISEASE W (ACUTE) EXACERBATION (2) Acute diastolic (congestive) heart failure Code(s): I50.31 - ACUTE DIASTOLIC (CONGESTIVE) HEART FAILURE (3) Bronchiectasis Code(s): J47.9 - BRONCHIECTASIS, UNCOMPLICATED (4) Emphysema of lung Code(s): J43.9 - EMPHYSEMA, UNSPECIFIED (5) HTN (hypertension) Code(s): I10 - ESSENTIAL (PRIMARY) HYPERTENSION (6) Lactic acid acidosis Code(s): E87.2 - ACIDOSIS (7) Parkinson disease Code(s): G20 - PARKINSON'S DISEASE (8) Major depress dis, severe Code(s): F32.2 - MAJOR DEPRESSV DISORD, SINGLE EPSD, SEV W/O PSYCH FEATURES Assessment/Plan 1) Acute exacerbation of chronic obstructive pulmonary disease Code(s): J44.1 - CHRONIC OBSTRUCTIVE PULMONARY DISEASE W (ACUTE) EXACERBATION (2) Acute diastolic (congestive) heart failure Code(s): I50.31 - ACUTE DIASTOLIC (CONGESTIVE) HEART FAILURE (3) Bronchiectasis Code(s): J47.9 - BRONCHIECTASIS, UNCOMPLICATED (4) Emphysema of lung Code(s): J43.9 - EMPHYSEMA, UNSPECIFIED (5) HTN (hypertension) Code(s): I10 - ESSENTIAL (PRIMARY) HYPERTENSION (6) Lactic acid acidosis Code(s): E87.2 - ACIDOSIS (7) Parkinson disease Code(s): G20 - PARKINSON'S DISEASE (8) Major depress dis, severe Code(s): F32.2 - MAJOR DEPRESSV DISORD, SINGLE EPSD, SEV W/O PSYCH FEATURES Pt on IV hydartion IV steroids IV zosyn as Pt had florid infections in the past with Bonchiectasis/ Emphysema Bronchodilators Incentive spirometry
[2018-04-02] MEDS: VANCOMYCIN 1 GRAM (PRE-DOCKED) 1,000 MG/250 ML BAG IVPB SCH (11:52)
--- NOTE | 2018-04-02 12:48 | EKG ---
Test Reason : Blood Pressure : / mmHG Vent. Rate : 079 BPM Atrial Rate : 079 BPM P-R Int : 206 ms QRS Dur : 084 ms QT Int : 376 ms P-R-T Axes : 078 -20 049 degrees QTc Int : 431 ms NORMAL SINUS RHYTHM WITH SINUS ARRHYTHMIA NORMAL ECG WHEN COMPARED WITH ECG OF 16-JUL-2017 21:23, NO SIGNIFICANT CHANGE WAS FOUND Confirmed by SUE FLORES MD ([id number]) on 04/02/2018 12:48:32 PM Referred By: Confirmed By:SUE FLORES MD
--- NOTE | 2018-04-02 12:50 | CON.ID ---
Consult Consult Specialty:: infectious diseases Referred by:: Reason for Consultation:: pneumonia - History of Present Illness Chief Complaint: sob History of Present Illness: 88 y/o man with significant past medical history of HTN, COPD, Emphysema, Former 2PPD X 50 year smoking (quit in 1999). well known to me from previous admissions coming to the hospital because of sob. patient had similar issues twice before with pneumonia and was treated for the same. . Pt states his was recently ill with a URI and he began to have a non productive cough and fevers 5 days ago. patient was s een by His primary care and advised admission for the same denies fever or any other symptoms patient got abx in the er and now on the floor feeling better requiring oxygen and duo nebs for help - History Source History Provided By: Patient Limitations to Obtaining History: No Limitations - Past Medical History Cardio/Vascular: Yes: HTN Pulmonary: Yes: COPD, Other (Emphysema) - Alcohol/Substance Use Hx Alcohol Use: No History of Substance Use: reports: None - Smoking History Smoking history: Former smoker Have you smoked in the past 12 months: No If you are a former smoker, when did you quit?: 50 YEARS AGO - Social History ADL: Independent History of Recent Travel: No Home Medications - Allergies Allergies/Adverse Reactions: Allergies Allergy/AdvReac Type Severity Reaction Status Date / Time No Known Allergies Allergy Verified 04/01/18 16:16 - Home Medications Home Medications: Ambulatory Orders Budesonide/Formeterol Fumarate [SYMBICORT 160/4.5mcg -] 2 inh PO BID 02/24/17 Lisinopril 5 mg PO BID 02/25/17 Metoprolol Tartrate [Lopressor -] 25 mg PO BID 02/25/17 Montelukast Na [Singulair -] 10 mg PO HS 02/25/17 Multivitamin [Poly-Vitamin] 1 each PO DAILY 04/28/17 Albuterol 0.083% Nebulizer Magi [Ventolin 0.083%] 1 neb NEB TID 04/01/18 Azithromycin 500 mg PO DAILY 04/01/18 Ciprofloxacin HCl 500 mg PO DAILY 04/01/18 Dextran 70/Hypromellose [Artificial Tears] 1 each OP BID 04/01/18 Omeprazole 20 mg PO BID 04/01/18 Prednisone 15 mg PO DAILY 12/12/18 Review of Systems - Review of Systems Constitutional: reports: No Symptoms Eyes: reports: No Symptoms HENT: reports: No Symptoms Neck: reports: No Symptoms Cardiovascular: reports: No Symptoms Respiratory: reports: Cough, SOB, SOB on Exertion Gastrointestinal: reports: No Symptoms Genitourinary: reports: No Symptoms Musculoskeletal: reports: No Symptoms Integumentary: reports: No Symptoms Neurological: reports: No Symptoms Endocrine: reports: No Symptoms Hematology/Lymphatic: reports: No Symptoms Psychiatric: reports: No Symptoms Physical Exam Vital Signs: Vital Signs Temperature 97.6 F 04/02/18 06:00 Pulse Rate 52 L 04/02/18 06:00 Respiratory Rate 28 H 04/02/18 06:00 Blood Pressure 147/62 04/02/18 06:00 O2 Sat by Pulse Oximetry (%) 100 04/02/18 09:00 Constitutional: Yes: Calm, Mild Distress, Thin Eyes: Yes: Conjunctiva Clear Neck: Yes: Supple, Trachea Midline Cardiovascular: Yes: Regular Rate and Rhythm Respiratory: Yes: Cough, Diminished, On Nasal O2, Rhonchi Gastrointestinal: Yes: Normal Bowel Sounds, Soft Musculoskeletal: Yes: WNL Extremities: Yes: WNL Neurological: Yes: Alert, Oriented Psychiatric: Yes: Alert Labs: CBC, BMP 04/02/18 06:00 04/02/18 06:00 Imaging - Results Chest X-ray: Report Reviewed, Image Reviewed Assessment/Plan Problem List - Problems (1) Acute exacerbation of chronic obstructive pulmonary disease Code(s): J44.1 - CHRONIC OBSTRUCTIVE PULMONARY DISEASE W (ACUTE) EXACERBATION (2) Acute diastolic (congestive) heart failure Code(s): I50.31 - ACUTE DIASTOLIC (CONGESTIVE) HEART FAILURE (3) Bronchiectasis Code(s): J47.9 - BRONCHIECTASIS, UNCOMPLICATED (4) Emphysema of lung Code(s): J43.9 - EMPHYSEMA, UNSPECIFIED (5) HTN (hypertension) Code(s): I10 - ESSENTIAL (PRIMARY) HYPERTENSION (6) Lactic acid acidosis Code(s): E87.2 - ACIDOSIS (7) Parkinson disease Code(s): G20 - PARKINSON'S DISEASE (8) Major depress dis, severe Code(s): F32.2 - MAJOR DEPRESSV DISORD, SINGLE EPSD, SEV W/O PSYCH FEATURES plan will continue abx for the patient incentive camacho resp support rest as per the team await for all cx reports
[2018-04-02] MEDS: DEXTROSE 5%-0.45% SALINE 1,000 ML IV SCH (13:26)
--- NOTE | 2018-04-02 13:32 | CON.PULM ---
Consult Consult Specialty:: PULMONARY Referred by:: Dr. Flynn Reason for Consultation:: COPD - History of Present Illness Chief Complaint: shortness of breath History of Present Illness: 88yo male with h/o HTN, COPD, emphysema who was admitted with worsening shortness of breath x 2 days. Denies any chest pain or discomfort. + nonproductive cough and wheezing. States his was sick with URI symptoms recently before his symptoms started. No fevers, chills or sweats. No nausea, vomiting or diarrhea. Compliant with his inhalers at home. He is a former long time smoker >50 years, quit in 1999. - History Source History Provided By: Patient, Medical Record Limitations to Obtaining History: No Limitations - Past Medical History Cardio/Vascular: Yes: HTN Pulmonary: Yes: COPD, Other (Emphysema) - Alcohol/Substance Use Hx Alcohol Use: No History of Substance Use: reports: None - Smoking History Smoking history: Former smoker Have you smoked in the past 12 months: No If you are a former smoker, when did you quit?: 50 YEARS AGO - Social History ADL: Independent History of Recent Travel: No Home Medications - Allergies Allergies/Adverse Reactions: Allergies Allergy/AdvReac Type Severity Reaction Status Date / Time No Known Allergies Allergy Verified 04/01/18 16:16 - Home Medications Home Medications: Ambulatory Orders Budesonide/Formeterol Fumarate [SYMBICORT 160/4.5mcg -] 2 inh PO BID 02/24/17 Lisinopril 5 mg PO BID 02/25/17 Metoprolol Tartrate [Lopressor -] 25 mg PO BID 02/25/17 Montelukast Na [Singulair -] 10 mg PO HS 02/25/17 Multivitamin [Poly-Vitamin] 1 each PO DAILY 04/28/17 Albuterol 0.083% Nebulizer Magi [Ventolin 0.083%] 1 neb NEB TID 04/01/18 Azithromycin 500 mg PO DAILY 04/01/18 Ciprofloxacin HCl 500 mg PO DAILY 04/01/18 Dextran 70/Hypromellose [Artificial Tears] 1 each OP BID 04/01/18 Omeprazole 20 mg PO BID 04/01/18 Prednisone 15 mg PO DAILY 04/01/18 Review of Systems - Review of Systems Constitutional: reports: Weakness. denies: Chills, Fever Eyes: denies: Recent Change in Vision HENT: denies: Nasal Congestion, Throat Pain Neck: denies: Stiffness, Tenderness Cardiovascular: reports: Shortness of Breath. denies: Chest Pain, Palpitations Respiratory: reports: Cough, Exercise Intolerance, SOB on Exertion, Wheezing. denies: Hemoptysis Gastrointestinal: denies: Abdominal Pain, Nausea, Vomiting Genitourinary: denies: Dysuria, Hematuria Neurological: denies: Dizziness, Headache Endocrine: denies: Unexplained Weight Loss Physical Exam Vital Sings: Vital Signs Temperature 97.6 F 04/02/18 06:00 Pulse Rate 52 L 04/02/18 06:00 Respiratory Rate 28 H 04/02/18 06:00 Blood Pressure 147/62 04/02/18 06:00 O2 Sat by Pulse Oximetry (%) 100 04/02/18 09:00 Constitutional: Yes: Mild Distress Eyes: Yes: Conjunctiva Clear, EOM Intact HENT: Yes: Atraumatic, Normocephalic Neck: Yes: Supple, Trachea Midline Cardiovascular: Yes: Regular Rate and Rhythm Respiratory: Yes: Rhonchi, Wheezes ...Clubbing: No Gastrointestinal: Yes: Normal Bowel Sounds, Soft. No: Tenderness Edema: No Labs: CBC, BMP 04/02/18 06:00 04/02/18 06:00 Imaging - Results Chest X-ray: Report Reviewed, Image Reviewed (no infiltrates) Problem List - Problems (1) COPD exacerbation Code(s): J44.1 - CHRONIC OBSTRUCTIVE PULMONARY DISEASE W (ACUTE) EXACERBATION (2) Lactic acid acidosis Code(s): E87.2 - ACIDOSIS (3) Emphysema of lung Code(s): J43.9 - EMPHYSEMA, UNSPECIFIED (4) HTN (hypertension) Code(s): I10 - ESSENTIAL (PRIMARY) HYPERTENSION Assessment/Plan Acute COPD Exacerbation Bronchiectasis Emphysema Lactic Acidosis HTN CKD - IV medrol - inhaled bronchodilators standing and PRN - antibiotics per ID - O2 to keep Spo2 >90% - IVF - monitor urine output, creatinine - outpt PFTs - DVT prophylaxis Thank you for this consult Zachary Mathias MD
[2018-04-02] MEDS: MIRTAZAPINE 30 MG TABLET (FP) PO SCH (21:43)
[2018-04-02] MEDS: MONTELUKAST NA 10 MG TABLET PO SCH (21:43)
[2018-04-02] MEDS ORDERED: ZOLPIDEM TARTRATE 5 MG TABLET PO PRN (22:00)
[2018-04-03] MEDS: DEXTROSE 5%-0.45% SALINE 1,000 ML IV SCH ×4 (00:02→23:01)
[2018-04-03] MEDS ORDERED: PIPERACILLIN/TAZOBACTAM 3.375 GM VIAL IVPB ONE ×3 (02:19→17:00)
[2018-04-03] MEDS ORDERED: DEXTROSE 5%-WATER - 50 ML IVPB ONE ×3 (02:19→17:00)
[2018-04-03] MEDS: methylPREDNISolone NA SUCC 40 MG/1 ML VIAL IVPUSH SCH ×3 (02:26→17:24)
[2018-04-03] MEDS: PIPERACILLIN/TAZOB 3.375 GM 3.375 GM in DEXTROSE 5%-WATER - 50 ML IVPB SCH ×3 (02:27→17:25)
[2018-04-03] MEDS: CARBIDOPA/LEVODOPA 25/100 TABLET (FP) PO SCH ×3 (06:09→21:19)
[2018-04-03] MEDS: HEPARIN NA (PORCINE) 5,000 UNITS/ML 1ML VIAL SQ SCH ×3 (06:09→21:19)
[2018-04-03] MEDS: ALBUTEROL SO4 0.083% IH SOL 2.5 MG/3 ML VIAL.NEB. NEB SCH ×3 (07:58→19:45)
[2018-04-03] MEDS ORDERED: PT OWN MED DRAWER 7, Y5N ONE (09:46)
[2018-04-03] MEDS: MULTIVITAMINS (DAILY MVI) TABLET (FP) PO SCH (09:54)
[2018-04-03] MEDS: LISINOPRIL 5 MG TABLET (FP) PO SCH ×3 (09:54→21:32)
[2018-04-03] MEDS: SERTRALINE HCL 50 MG TABLET (FP) PO SCH (09:54)
[2018-04-03] MEDS: METOPROLOL TARTRATE 25 MG TABLET (FP) PO SCH ×3 (09:54→21:32)
[2018-04-03] MEDS: BUDESONIDE/FORMETEROL FUMARATE 160/4.5 mcg INHALER IH SCH ×2 (09:55→21:18)
[2018-04-03] MEDS: ARTIFICIAL TEARS (POLYVINYL ALCOHOL) OPTH DROPS OU SCH ×2 (09:55→21:18)
[2018-04-03] MEDS: VANCOMYCIN 1 GRAM (PRE-DOCKED) 1,000 MG/250 ML BAG IVPB SCH (11:44)
--- NOTE | 2018-04-03 12:36 | PN ---
Progress Note, Physician History of Present Illness: patient feeling better breathing has improved still with cough - Current Medication List Current Medications: Active Medications Albuterol Sulfate (Ventolin 0.083% Nebulizer Soln -) 1 amp NEB RTID [facility] Last Admin: 04/03/18 07:58 Dose: 1 amp Artificial Tears (Artificial Tears) 1 drop OU BID [facility] Last Admin: 04/03/18 09:55 Dose: Not Given Budesonide/Formoterol Fumarate (Symbicort 160/4.5mcg -) 2 puff IH BID [facility] Last Admin: 04/03/18 09:55 Dose: 2 puff Carbidopa/Levodopa (Sinemet 25/100 -) 1 each PO TID [facility] Last Admin: 04/03/18 06:09 Dose: 1 each Heparin Sodium (Porcine) (Heparin -) 5,000 unit SQ TID [facility] Last Admin: 04/03/18 06:09 Dose: 5,000 unit Dextrose/Sodium Chloride (D5-1/2ns -) 1,000 mls @ 42 mls/hr IV ASDIR [facility] Last Admin: 04/01/18 22:00 Dose: 42 mls/hr Piperacillin Sod/Tazobactam (Sod 3.375 gm/ Dextrose) 50 mls @ 100 mls/hr IVPB Q8H-IV [facility]; Protocol Last Admin: 04/03/18 09:55 Dose: 100 mls/hr Vancomycin HCl (Vancomycin (Pre-Docked)) 1,000 mg in 250 mls @ 250 mls/hr IVPB Q24H [facility]; Protocol Last Admin: 04/03/18 11:44 Dose: 250 mls/hr Dextrose/Sodium Chloride (D5-1/2ns -) 1,000 mls @ 75 mls/hr IV ASDIR [facility] Last Admin: 04/02/18 13:26 Dose: Not Given Lisinopril (Prinivil) 5 mg PO BID [facility] Last Admin: 04/03/18 09:54 Dose: 5 mg Methylprednisolone Sodium Succinate (Solu-Medrol -) 40 mg IVPUSH Q8H-IV [facility] Last Admin: 04/03/18 09:55 Dose: 40 mg Metoprolol Tartrate (Lopressor -) 25 mg PO BID [facility] Last Admin: 04/03/18 09:54 Dose: 25 mg Mirtazapine (Remeron -) 30 mg PO HS [facility] Last Admin: 04/02/18 21:43 Dose: 30 mg Montelukast Sodium (Singulair -) 10 mg PO [facility] Last Admin: 04/02/18 21:43 Dose: 10 mg Multivitamins/Minerals/Vitamin C (Tab-A-Vit -) 1 tab PO DAILY [facility] Last Admin: 04/03/18 09:54 Dose: 1 tab Sertraline HCl (Zoloft -) 50 mg PO DAILY [facility] Last Admin: 04/03/18 09:54 Dose: 50 mg Zolpidem Tartrate (Ambien -) 5 mg PO HS PRN PRN Reason: INSOMNIA Stop: 04/09/18 21:59 - Objective Vital Signs: Vital Signs Temperature 97.8 F 04/03/18 09:53 Pulse Rate 60 04/03/18 09:53 Respiratory Rate 18 04/03/18 09:53 Blood Pressure 124/75 04/03/18 09:53 O2 Sat by Pulse Oximetry (%) 100 04/03/18 09:53 Constitutional: Yes: No Distress, Calm Cardiovascular: Yes: Regular Rate and Rhythm Respiratory: Yes: On Nasal O2, Rhonchi, Other Gastrointestinal: Yes: Normal Bowel Sounds, Soft Musculoskeletal: Yes: WNL Extremities: Yes: WNL Neurological: Yes: Alert, Oriented Psychiatric: Yes: Alert, Oriented Labs: CBC, BMP 04/02/18 06:00 04/02/18 06:00 INR, PTT INR 1.07 (0.83-1.09) 04/01/18 16:46 Assessment/Plan Problem List - Problems (1) Acute exacerbation of chronic obstructive pulmonary disease Code(s): J44.1 - CHRONIC OBSTRUCTIVE PULMONARY DISEASE W (ACUTE) EXACERBATION (2) Acute diastolic (congestive) heart failure Code(s): I50.31 - ACUTE DIASTOLIC (CONGESTIVE) HEART FAILURE (3) Bronchiectasis Code(s): J47.9 - BRONCHIECTASIS, UNCOMPLICATED (4) Emphysema of lung Code(s): J43.9 - EMPHYSEMA, UNSPECIFIED (5) HTN (hypertension) Code(s): I10 - ESSENTIAL (PRIMARY) HYPERTENSION (6) Lactic acid acidosis Code(s): E87.2 - ACIDOSIS (7) Parkinson disease Code(s): G20 - PARKINSON'S DISEASE (8) Major depress dis, severe Code(s): F32.2 - MAJOR DEPRESSV DISORD, SINGLE EPSD, SEV W/O PSYCH FEATURES plan continue current mgmt abx as per pulmonary rest as per the team
--- NOTE | 2018-04-03 16:56 | PN ---
Progress Note, Physician History of Present Illness: PULMONARY ALERT,FEELING BETTER,DYSPNEA IMPROVING - Current Medication List Current Medications: Active Medications Albuterol Sulfate (Ventolin 0.083% Nebulizer Soln -) 1 amp NEB RTID [facility] Last Admin: 04/03/18 14:09 Dose: 1 amp Artificial Tears (Artificial Tears) 1 drop OU BID [facility] Last Admin: 04/03/18 09:55 Dose: Not Given Budesonide/Formoterol Fumarate (Symbicort 160/4.5mcg -) 2 puff IH BID [facility] Last Admin: 04/03/18 09:55 Dose: 2 puff Carbidopa/Levodopa (Sinemet 25/100 -) 1 each PO TID [facility] Last Admin: 04/03/18 13:54 Dose: 1 each Heparin Sodium (Porcine) (Heparin -) 5,000 unit SQ TID [facility] Last Admin: 04/03/18 13:54 Dose: 5,000 unit Dextrose/Sodium Chloride (D5-1/2ns -) 1,000 mls @ 42 mls/hr IV ASDIR [facility] Last Admin: 04/01/18 22:00 Dose: 42 mls/hr Piperacillin Sod/Tazobactam (Sod 3.375 gm/ Dextrose) 50 mls @ 100 mls/hr IVPB Q8H-IV [facility]; Protocol Last Admin: 04/03/18 09:55 Dose: 100 mls/hr Vancomycin HCl (Vancomycin (Pre-Docked)) 1,000 mg in 250 mls @ 250 mls/hr IVPB Q24H [facility]; Protocol Last Admin: 04/03/18 11:44 Dose: 250 mls/hr Dextrose/Sodium Chloride (D5-1/2ns -) 1,000 mls @ 75 mls/hr IV ASDIR [facility] Last Admin: 04/03/18 15:36 Dose: 75 mls/hr Lisinopril (Prinivil) 5 mg PO BID [facility] Last Admin: 04/03/18 09:54 Dose: 5 mg Methylprednisolone Sodium Succinate (Solu-Medrol -) 40 mg IVPUSH Q8H-IV [facility] Last Admin: 04/03/18 09:55 Dose: 40 mg Metoprolol Tartrate (Lopressor -) 25 mg PO BID [facility] Last Admin: 04/03/18 09:54 Dose: 25 mg Mirtazapine (Remeron -) 30 mg PO HS [facility] Last Admin: 04/02/18 21:43 Dose: 30 mg Montelukast Sodium (Singulair -) 10 mg PO HS [facility] Last Admin: 04/02/18 21:43 Dose: 10 mg Multivitamins/Minerals/Vitamin C (Tab-A-Vit -) 1 tab PO DAILY [facility] Last Admin: 04/03/18 09:54 Dose: 1 tab Sertraline HCl (Zoloft -) 50 mg PO DAILY [facility] Last Admin: 04/03/18 09:54 Dose: 50 mg Zolpidem Tartrate (Ambien -) 5 mg PO HS PRN PRN Reason: INSOMNIA Stop: 04/09/18 21:59 - Objective Vital Signs: Vital Signs Temperature 97.8 F 04/03/18 15:18 Pulse Rate 62 04/03/18 15:18 Respiratory Rate 20 04/03/18 15:18 Blood Pressure 124/75 04/03/18 09:53 O2 Sat by Pulse Oximetry (%) 100 04/03/18 09:53 Constitutional: Yes: Well Nourished, Calm Eyes: Yes: WNL HENT: Yes: WNL Neck: Yes: WNL Cardiovascular: Yes: Regular Rate and Rhythm, S1, S2 Respiratory: Yes: Diminished, Wheezes (FEW WHEEZES) Gastrointestinal: Yes: Normal Bowel Sounds Extremities: Yes: WNL Edema: No Labs: CBC, BMP 04/02/18 06:00 04/02/18 06:00 INR, PTT INR 1.07 (0.83-1.09) 04/01/18 16:46 Assessment/Plan Problem List - Problems (1) COPD exacerbation Code(s): J44.1 - CHRONIC OBSTRUCTIVE PULMONARY DISEASE W (ACUTE) EXACERBATION (2) Lactic acid acidosis Code(s): E87.2 - ACIDOSIS (3) Emphysema of lung Code(s): J43.9 - EMPHYSEMA, UNSPECIFIED (4) HTN (hypertension) Code(s): I10 - ESSENTIAL (PRIMARY) HYPERTENSION Assessment/Plan Acute COPD Exacerbation Bronchiectasis Emphysema Lactic Acidosis HTN CKD - IV medrol same dose - inhaled bronchodilators standing and PRN - antibiotics per ID - O2 to keep Spo2 >90% - IVF - monitor urine output, creatinine - outpt PFTs - DVT prophylaxis - outpatient pulmonary rehab post discharge DR MOSLEY
[2018-04-03] MEDS ORDERED: MIRTAZAPINE 15 MG TABLET (FP) ONE (20:34)
[2018-04-03] MEDS: MIRTAZAPINE 30 MG TABLET (FP) PO SCH (21:18)
[2018-04-03] MEDS: MONTELUKAST NA 10 MG TABLET PO SCH (21:19)
--- NOTE | 2018-04-03 22:15 | PN ---
Progress Note, Physician Chief Complaint: Pt is feeling better Decreased SOB No Chest pain History of Present Illness: Cough, SOB,URTI Better today No Chest pain - Current Medication List Current Medications: Active Medications Albuterol Sulfate (Ventolin 0.083% Nebulizer Soln -) 1 amp NEB RTID [facility] Last Admin: 04/03/18 19:45 Dose: 1 amp Artificial Tears (Artificial Tears) 1 drop OU BID [facility] Last Admin: 04/03/18 21:18 Dose: Not Given Budesonide/Formoterol Fumarate (Symbicort 160/4.5mcg -) 2 puff IH BID [facility] Last Admin: 04/03/18 21:18 Dose: 2 puff Carbidopa/Levodopa (Sinemet 25/100 -) 1 each PO TID [facility] Last Admin: 04/03/18 21:19 Dose: 1 each Heparin Sodium (Porcine) (Heparin -) 5,000 unit SQ TID [facility] Last Admin: 04/03/18 21:19 Dose: 5,000 unit Dextrose/Sodium Chloride (D5-1/2ns -) 1,000 mls @ 42 mls/hr IV ASDIR [facility] Last Admin: 04/03/18 21:32 Dose: Not Given Piperacillin Sod/Tazobactam (Sod 3.375 gm/ Dextrose) 50 mls @ 100 mls/hr IVPB Q8H-IV [facility]; Protocol Last Admin: 04/03/18 17:25 Dose: 100 mls/hr Vancomycin HCl (Vancomycin (Pre-Docked)) 1,000 mg in 250 mls @ 250 mls/hr IVPB Q24H [facility]; Protocol Last Admin: 04/03/18 11:44 Dose: 250 mls/hr Dextrose/Sodium Chloride (D5-1/2ns -) 1,000 mls @ 75 mls/hr IV ASDIR [facility] Last Admin: 04/03/18 15:36 Dose: 75 mls/hr Lisinopril (Prinivil) 5 mg PO BID [facility] Last Admin: 04/03/18 21:32 Dose: Not Given Methylprednisolone Sodium Succinate (Solu-Medrol -) 40 mg IVPUSH Q8H-IV [facility] Last Admin: 04/03/18 17:24 Dose: 40 mg Metoprolol Tartrate (Lopressor -) 25 mg PO BID [facility] Last Admin: 04/03/18 21:32 Dose: Not Given Mirtazapine (Remeron -) 30 mg PO [facility] Last Admin: 04/03/18 21:18 Dose: 30 mg Montelukast Sodium (Singulair -) 10 mg PO [facility] Last Admin: 04/03/18 21:19 Dose: 10 mg Multivitamins/Minerals/Vitamin C (Tab-A-Vit -) 1 tab PO DAILY [facility] Last Admin: 04/03/18 09:54 Dose: 1 tab Sertraline HCl (Zoloft -) 50 mg PO DAILY [facility] Last Admin: 04/03/18 09:54 Dose: 50 mg Zolpidem Tartrate (Ambien -) 5 mg PO HS PRN PRN Reason: INSOMNIA Stop: 04/09/18 21:59 - Objective Vital Signs: Vital Signs Temperature 98.1 F 04/03/18 16:20 Pulse Rate 56 L 04/03/18 16:20 Respiratory Rate 18 04/03/18 16:20 Blood Pressure 127/61 04/03/18 16:20 O2 Sat by Pulse Oximetry (%) 100 04/03/18 09:53 Constitutional: Yes: No Distress, Calm Eyes: Yes: Conjunctiva Clear, EOM Intact HENT: Yes: Atraumatic, Normocephalic Neck: Yes: Supple, Trachea Midline Cardiovascular: Yes: Regular Rate and Rhythm, S1, S2 Respiratory: Yes: Regular, CTA Bilaterally Gastrointestinal: Yes: Normal Bowel Sounds, Soft Musculoskeletal: Yes: Joint Stiffness Edema: No Neurological: Yes: Alert, Oriented, Cran Nerves II-XII Intact Labs: CBC, BMP 04/02/18 06:00 04/02/18 06:00 INR, PTT INR 1.07 (0.83-1.09) 04/01/18 16:46 Problem List - Problems (1) Acute exacerbation of chronic obstructive pulmonary disease Code(s): J44.1 - CHRONIC OBSTRUCTIVE PULMONARY DISEASE W (ACUTE) EXACERBATION (2) Acute diastolic (congestive) heart failure Code(s): I50.31 - ACUTE DIASTOLIC (CONGESTIVE) HEART FAILURE (3) Bronchiectasis Code(s): J47.9 - BRONCHIECTASIS, UNCOMPLICATED (4) Emphysema of lung Code(s): J43.9 - EMPHYSEMA, UNSPECIFIED (5) HTN (hypertension) Code(s): I10 - ESSENTIAL (PRIMARY) HYPERTENSION (6) Lactic acid acidosis Code(s): E87.2 - ACIDOSIS (7) Parkinson disease Code(s): G20 - PARKINSON'S DISEASE (8) Major depress dis, severe Code(s): F32.2 - MAJOR DEPRESSV DISORD, SINGLE EPSD, SEV W/O PSYCH FEATURES Assessment/Plan 1) Acute exacerbation of chronic obstructive pulmonary disease Code(s): J44.1 - CHRONIC OBSTRUCTIVE PULMONARY DISEASE W (ACUTE) EXACERBATION (2) Acute diastolic (congestive) heart failure Code(s): I50.31 - ACUTE DIASTOLIC (CONGESTIVE) HEART FAILURE (3) Bronchiectasis Code(s): J47.9 - BRONCHIECTASIS, UNCOMPLICATED (4) Emphysema of lung Code(s): J43.9 - EMPHYSEMA, UNSPECIFIED (5) HTN (hypertension) Code(s): I10 - ESSENTIAL (PRIMARY) HYPERTENSION (6) Lactic acid acidosis Code(s): E87.2 - ACIDOSIS (7) Parkinson disease Code(s): G20 - PARKINSON'S DISEASE (8) Major depress dis, severe Code(s): F32.2 - MAJOR DEPRESSV DISORD, SINGLE EPSD, SEV W/O PSYCH FEATURES Pt will be off IV fluids Tapering steroids
[2018-04-04] MEDS ORDERED: DEXTROSE 5%-WATER - 50 ML IVPB ONE ×3 (00:45→17:17)
[2018-04-04] MEDS ORDERED: PIPERACILLIN/TAZOBACTAM 3.375 GM VIAL IVPB ONE ×3 (00:45→17:16)
[2018-04-04] MEDS: methylPREDNISolone NA SUCC 40 MG/1 ML VIAL IVPUSH SCH ×3 (01:01→21:26)
[2018-04-04] MEDS: PIPERACILLIN/TAZOB 3.375 GM 3.375 GM in DEXTROSE 5%-WATER - 50 ML IVPB SCH ×3 (01:01→17:23)
[2018-04-04] MEDS: CARBIDOPA/LEVODOPA 25/100 TABLET (FP) PO SCH ×3 (06:10→21:27)
[2018-04-04] MEDS: HEPARIN NA (PORCINE) 5,000 UNITS/ML 1ML VIAL SQ SCH ×3 (06:10→21:26)
[2018-04-04] MEDS: DEXTROSE 5%-0.45% SALINE 1,000 ML IV SCH ×3 (06:12→22:06)
[2018-04-04] MEDS: LISINOPRIL 5 MG TABLET (FP) PO SCH ×3 (06:24→21:36)
[2018-04-04] MEDS: METOPROLOL TARTRATE 25 MG TABLET (FP) PO SCH ×3 (06:25→21:38)
[2018-04-04] MEDS: ALBUTEROL SO4 0.083% IH SOL 2.5 MG/3 ML VIAL.NEB. NEB SCH ×3 (07:39→20:25)
[2018-04-04] MEDS ORDERED: PT OWN MED DRAWER 7, Y5N ONE ×2 (09:17→21:20)
[2018-04-04] MEDS: ARTIFICIAL TEARS (POLYVINYL ALCOHOL) OPTH DROPS OU SCH ×2 (09:23→21:25)
[2018-04-04] MEDS: BUDESONIDE/FORMETEROL FUMARATE 160/4.5 mcg INHALER IH SCH ×2 (09:23→21:26)
[2018-04-04] MEDS: MULTIVITAMINS (DAILY MVI) TABLET (FP) PO SCH (09:23)
[2018-04-04] MEDS: SERTRALINE HCL 50 MG TABLET (FP) PO SCH (09:37)
[2018-04-04] MEDS: VANCOMYCIN 1 GRAM (PRE-DOCKED) 1,000 MG/250 ML BAG IVPB SCH (11:00)
--- NOTE | 2018-04-04 12:12 | PN ---
Progress Note, Physician History of Present Illness: pulmonary alert,oob-chair,dyspnea improved. - Current Medication List Current Medications: Active Medications Albuterol Sulfate (Ventolin 0.083% Nebulizer Soln -) 1 amp NEB RTID [facility] Last Admin: 04/04/18 07:39 Dose: 1 amp Artificial Tears (Artificial Tears) 1 drop OU BID [facility] Last Admin: 04/04/18 09:23 Dose: Not Given Budesonide/Formoterol Fumarate (Symbicort 160/4.5mcg -) 2 puff IH BID [facility] Last Admin: 04/04/18 09:23 Dose: 2 puff Carbidopa/Levodopa (Sinemet 25/100 -) 1 each PO TID [facility] Last Admin: 04/04/18 06:10 Dose: 1 each Heparin Sodium (Porcine) (Heparin -) 5,000 unit SQ TID [facility] Last Admin: 04/04/18 06:10 Dose: 5,000 unit Dextrose/Sodium Chloride (D5-1/2ns -) 1,000 mls @ 42 mls/hr IV ASDIR [facility] Last Admin: 04/03/18 23:01 Dose: Not Given Piperacillin Sod/Tazobactam (Sod 3.375 gm/ Dextrose) 50 mls @ 100 mls/hr IVPB Q8H-IV [facility]; Protocol Last Admin: 04/04/18 09:24 Dose: 100 mls/hr Vancomycin HCl (Vancomycin (Pre-Docked)) 1,000 mg in 250 mls @ 250 mls/hr IVPB Q24H [facility]; Protocol Last Admin: 04/04/18 11:00 Dose: 250 mls/hr Dextrose/Sodium Chloride (D5-1/2ns -) 1,000 mls @ 75 mls/hr IV ASDIR [facility] Last Admin: 04/04/18 06:12 Dose: 75 mls/hr Lisinopril (Prinivil) 5 mg PO BID [facility] Last Admin: 04/04/18 09:15 Dose: Not Given Methylprednisolone Sodium Succinate (Solu-Medrol -) 40 mg IVPUSH Q8H-IV [facility] Last Admin: 04/04/18 09:23 Dose: 40 mg Metoprolol Tartrate (Lopressor -) 25 mg PO BID [facility] Last Admin: 04/04/18 09:14 Dose: Not Given Mirtazapine (Remeron -) 30 mg PO HS [facility] Last Admin: 04/03/18 21:18 Dose: 30 mg Montelukast Sodium (Singulair -) 10 mg PO HS [facility] Last Admin: 04/03/18 21:19 Dose: 10 mg Multivitamins/Minerals/Vitamin C (Tab-A-Vit -) 1 tab PO DAILY [facility] Last Admin: 04/04/18 09:23 Dose: 1 tab Sertraline HCl (Zoloft -) 50 mg PO DAILY [facility] Last Admin: 04/04/18 09:37 Dose: 50 mg Zolpidem Tartrate (Ambien -) 5 mg PO HS PRN PRN Reason: INSOMNIA Stop: 04/09/18 21:59 - Objective Vital Signs: Vital Signs Temperature 97.6 F 04/04/18 06:42 Pulse Rate 55 L 04/04/18 06:42 Respiratory Rate 20 04/04/18 06:42 Blood Pressure 167/76 04/04/18 06:42 O2 Sat by Pulse Oximetry (%) 95 04/03/18 21:50 Constitutional: Yes: Well Nourished, Calm Eyes: Yes: WNL HENT: Yes: WNL Neck: Yes: WNL Cardiovascular: Yes: Regular Rate and Rhythm, S1, S2 Respiratory: Yes: CTA Bilaterally Gastrointestinal: Yes: Normal Bowel Sounds, Soft Extremities: Yes: WNL Edema: No Labs: CBC, BMP Assessment/Plan Problem List - Problems (1) COPD exacerbation Code(s): J44.1 - CHRONIC OBSTRUCTIVE PULMONARY DISEASE W (ACUTE) EXACERBATION (2) Lactic acid acidosis Code(s): E87.2 - ACIDOSIS (3) Emphysema of lung Code(s): J43.9 - EMPHYSEMA, UNSPECIFIED (4) HTN (hypertension) Code(s): I10 - ESSENTIAL (PRIMARY) HYPERTENSION Assessment/Plan Acute COPD Exacerbation improving Bronchiectasis Emphysema Lactic Acidosis HTN CKD - IV medrol taper - inhaled bronchodilators standing and PRN - antibiotics per ID - O2 to keep Spo2 >90% - IVF - monitor urine output, creatinine - outpt PFTs - DVT prophylaxis - outpatient pulmonary rehab post discharge DR MOSLEY
--- NOTE | 2018-04-04 13:50 | PN ---
Progress Note, Physician History of Present Illness: improving breathing much better comfortable - Current Medication List Current Medications: Active Medications Albuterol Sulfate (Ventolin 0.083% Nebulizer Soln -) 1 amp NEB RTID [facility] Last Admin: 04/04/18 07:39 Dose: 1 amp Artificial Tears (Artificial Tears) 1 drop OU BID [facility] Last Admin: 04/04/18 09:23 Dose: Not Given Budesonide/Formoterol Fumarate (Symbicort 160/4.5mcg -) 2 puff IH BID [facility] Last Admin: 04/04/18 09:23 Dose: 2 puff Carbidopa/Levodopa (Sinemet 25/100 -) 1 each PO TID [facility] Last Admin: 04/04/18 06:10 Dose: 1 each Heparin Sodium (Porcine) (Heparin -) 5,000 unit SQ TID [facility] Last Admin: 04/04/18 06:10 Dose: 5,000 unit Dextrose/Sodium Chloride (D5-1/2ns -) 1,000 mls @ 42 mls/hr IV ASDIR [facility] Last Admin: 04/03/18 23:01 Dose: Not Given Piperacillin Sod/Tazobactam (Sod 3.375 gm/ Dextrose) 50 mls @ 100 mls/hr IVPB Q8H-IV [facility]; Protocol Last Admin: 04/04/18 09:24 Dose: 100 mls/hr Vancomycin HCl (Vancomycin (Pre-Docked)) 1,000 mg in 250 mls @ 250 mls/hr IVPB Q24H [facility]; Protocol Last Admin: 04/04/18 11:00 Dose: 250 mls/hr Dextrose/Sodium Chloride (D5-1/2ns -) 1,000 mls @ 75 mls/hr IV ASDIR [facility] Last Admin: 04/04/18 06:12 Dose: 75 mls/hr Lisinopril (Prinivil) 5 mg PO BID [facility] Last Admin: 04/04/18 09:15 Dose: Not Given Methylprednisolone Sodium Succinate (Solu-Medrol -) 40 mg IVPUSH BID [facility] Metoprolol Tartrate (Lopressor -) 25 mg PO BID [facility] Last Admin: 04/04/18 09:14 Dose: Not Given Mirtazapine (Remeron -) 30 mg PO HS [facility] Last Admin: 04/03/18 21:18 Dose: 30 mg Montelukast Sodium (Singulair -) 10 mg PO HS [facility] Last Admin: 04/03/18 21:19 Dose: 10 mg Multivitamins/Minerals/Vitamin C (Tab-A-Vit -) 1 tab PO DAILY [facility] Last Admin: 04/04/18 09:23 Dose: 1 tab Sertraline HCl (Zoloft -) 50 mg PO DAILY [facility] Last Admin: 04/04/18 09:37 Dose: 50 mg Zolpidem Tartrate (Ambien -) 5 mg PO HS PRN PRN Reason: INSOMNIA Stop: 04/09/18 21:59 - Objective Vital Signs: Vital Signs Temperature 97.8 F 04/04/18 12:00 Pulse Rate 58 L 04/04/18 12:00 Respiratory Rate 20 04/04/18 12:00 Blood Pressure 144/84 04/04/18 12:00 O2 Sat by Pulse Oximetry (%) 95 04/04/18 09:00 Constitutional: Yes: No Distress, Calm Neck: Yes: Supple, Trachea Midline Cardiovascular: Yes: Regular Rate and Rhythm Respiratory: Yes: On Nasal O2, Poor Air Entry, Other Gastrointestinal: Yes: Normal Bowel Sounds, Soft Musculoskeletal: Yes: WNL Extremities: Yes: WNL Neurological: Yes: Alert, Oriented Psychiatric: Yes: Alert, Oriented Labs: CBC, BMP 04/02/18 06:00 04/02/18 06:00 INR, PTT INR 1.07 (0.83-1.09) 04/01/18 16:46 Assessment/Plan Problem List - Problems (1) Acute exacerbation of chronic obstructive pulmonary disease Code(s): J44.1 - CHRONIC OBSTRUCTIVE PULMONARY DISEASE W (ACUTE) EXACERBATION (2) Acute diastolic (congestive) heart failure Code(s): I50.31 - ACUTE DIASTOLIC (CONGESTIVE) HEART FAILURE (3) Bronchiectasis Code(s): J47.9 - BRONCHIECTASIS, UNCOMPLICATED (4) Emphysema of lung Code(s): J43.9 - EMPHYSEMA, UNSPECIFIED (5) HTN (hypertension) Code(s): I10 - ESSENTIAL (PRIMARY) HYPERTENSION (6) Lactic acid acidosis Code(s): E87.2 - ACIDOSIS (7) Parkinson disease Code(s): G20 - PARKINSON'S DISEASE (8) Major depress dis, severe Code(s): F32.2 - MAJOR DEPRESSV DISORD, SINGLE EPSD, SEV W/O PSYCH FEATURES plan will deescalte abx in a day incentive camacho resp support rest as per the team
[2018-04-04] MEDS ORDERED: MIRTAZAPINE 15 MG TABLET (FP) ONE (21:19)
[2018-04-04] MEDS: MIRTAZAPINE 30 MG TABLET (FP) PO SCH (21:26)
[2018-04-04] MEDS: MONTELUKAST NA 10 MG TABLET PO SCH (21:27)
--- NOTE | 2018-04-04 23:01 | PN ---
Progress Note, Physician Chief Complaint: Pt is feeling better Decreased SOB History of Present Illness: Cough, SOB,URTI Better today - Current Medication List Current Medications: Active Medications Albuterol Sulfate (Ventolin 0.083% Nebulizer Soln -) 1 amp NEB RTID [facility] Last Admin: 04/04/18 20:25 Dose: 1 amp Artificial Tears (Artificial Tears) 1 drop OU BID [facility] Last Admin: 04/04/18 21:25 Dose: Not Given Budesonide/Formoterol Fumarate (Symbicort 160/4.5mcg -) 2 puff IH BID [facility] Last Admin: 04/04/18 21:26 Dose: 2 puff Carbidopa/Levodopa (Sinemet 25/100 -) 1 each PO TID [facility] Last Admin: 04/04/18 21:27 Dose: 1 each Heparin Sodium (Porcine) (Heparin -) 5,000 unit SQ TID [facility] Last Admin: 04/04/18 21:26 Dose: 5,000 unit Dextrose/Sodium Chloride (D5-1/2ns -) 1,000 mls @ 42 mls/hr IV ASDIR [facility] Last Admin: 04/03/18 23:01 Dose: Not Given Piperacillin Sod/Tazobactam (Sod 3.375 gm/ Dextrose) 50 mls @ 100 mls/hr IVPB Q8H-IV [facility]; Protocol Last Admin: 04/04/18 17:23 Dose: 100 mls/hr Vancomycin HCl (Vancomycin (Pre-Docked)) 1,000 mg in 250 mls @ 250 mls/hr IVPB Q24H [facility]; Protocol Last Admin: 04/04/18 11:00 Dose: 250 mls/hr Dextrose/Sodium Chloride (D5-1/2ns -) 1,000 mls @ 75 mls/hr IV ASDIR [facility] Last Admin: 04/04/18 22:06 Dose: Not Given Lisinopril (Prinivil) 5 mg PO BID [facility] Last Admin: 04/04/18 21:36 Dose: 5 mg Methylprednisolone Sodium Succinate (Solu-Medrol -) 40 mg IVPUSH BID [facility] Last Admin: 04/04/18 21:26 Dose: 40 mg Metoprolol Tartrate (Lopressor -) 25 mg PO BID [facility] Last Admin: 04/04/18 21:38 Dose: Not Given Mirtazapine (Remeron -) 30 mg PO HS [facility] Last Admin: 04/04/18 21:26 Dose: 30 mg Montelukast Sodium (Singulair -) 10 mg PO HS [facility] Last Admin: 04/04/18 21:27 Dose: 10 mg Multivitamins/Minerals/Vitamin C (Tab-A-Vit -) 1 tab PO DAILY [facility] Last Admin: 04/04/18 09:23 Dose: 1 tab Sertraline HCl (Zoloft -) 50 mg PO DAILY [facility] Last Admin: 04/04/18 09:37 Dose: 50 mg Zolpidem Tartrate (Ambien -) 5 mg PO HS PRN PRN Reason: INSOMNIA Stop: 04/09/18 21:59 - Objective Vital Signs: Vital Signs Temperature 98.2 F 04/04/18 21:25 Pulse Rate 55 L 04/04/18 21:25 Respiratory Rate 18 04/04/18 21:25 Blood Pressure 138/65 04/04/18 21:25 O2 Sat by Pulse Oximetry (%) 97 04/04/18 21:00 Constitutional: Yes: No Distress Eyes: Yes: Conjunctiva Clear, EOM Intact HENT: Yes: Atraumatic, Normocephalic Neck: Yes: Supple, Trachea Midline Cardiovascular: Yes: Regular Rate and Rhythm, S1, S2 Respiratory: Yes: Regular, CTA Bilaterally Gastrointestinal: Yes: Normal Bowel Sounds, Soft Musculoskeletal: Yes: Joint Stiffness Edema: No Neurological: Yes: Alert, Oriented, Cran Nerves II-XII Intact Psychiatric: Yes: Alert, Oriented, Other (Dression is better) Labs: CBC, BMP 04/02/18 06:00 04/02/18 06:00 INR, PTT INR 1.07 (0.83-1.09) 04/01/18 16:46 Problem List - Problems (1) Acute exacerbation of chronic obstructive pulmonary disease Code(s): J44.1 - CHRONIC OBSTRUCTIVE PULMONARY DISEASE W (ACUTE) EXACERBATION (2) Acute diastolic (congestive) heart failure Code(s): I50.31 - ACUTE DIASTOLIC (CONGESTIVE) HEART FAILURE (3) Bronchiectasis Code(s): J47.9 - BRONCHIECTASIS, UNCOMPLICATED (4) Emphysema of lung Code(s): J43.9 - EMPHYSEMA, UNSPECIFIED (5) HTN (hypertension) Code(s): I10 - ESSENTIAL (PRIMARY) HYPERTENSION (6) Lactic acid acidosis Code(s): E87.2 - ACIDOSIS (7) Parkinson disease Code(s): G20 - PARKINSON'S DISEASE (8) Major depress dis, severe Code(s): F32.2 - MAJOR DEPRESSV DISORD, SINGLE EPSD, SEV W/O PSYCH FEATURES Assessment/Plan 1) Acute exacerbation of chronic obstructive pulmonary disease Code(s): J44.1 - CHRONIC OBSTRUCTIVE PULMONARY DISEASE W (ACUTE) EXACERBATION (2) Acute diastolic (congestive) heart failure Code(s): I50.31 - ACUTE DIASTOLIC (CONGESTIVE) HEART FAILURE (3) Bronchiectasis Code(s): J47.9 - BRONCHIECTASIS, UNCOMPLICATED (4) Emphysema of lung Code(s): J43.9 - EMPHYSEMA, UNSPECIFIED (5) HTN (hypertension) Code(s): I10 - ESSENTIAL (PRIMARY) HYPERTENSION (6) Lactic acid acidosis Code(s): E87.2 - ACIDOSIS (7) Parkinson disease Code(s): G20 - PARKINSON'S DISEASE (8) Major depress dis, severe Code(s): F32.2 - MAJOR DEPRESSV DISORD, SINGLE EPSD, SEV W/O PSYCH FEATURES Pt is feeling better No SOB
[2018-04-05] MEDS ORDERED: DEXTROSE 5%-WATER - 50 ML IVPB ONE ×3 (01:53→16:46)
[2018-04-05] MEDS ORDERED: PIPERACILLIN/TAZOBACTAM 3.375 GM VIAL IVPB ONE ×3 (01:53→16:46)
[2018-04-05] MEDS: PIPERACILLIN/TAZOB 3.375 GM 3.375 GM in DEXTROSE 5%-WATER - 50 ML IVPB SCH ×3 (02:26→17:04)
[2018-04-05] MEDS: HEPARIN NA (PORCINE) 5,000 UNITS/ML 1ML VIAL SQ SCH ×3 (06:33→22:10)
[2018-04-05] MEDS: CARBIDOPA/LEVODOPA 25/100 TABLET (FP) PO SCH ×3 (06:33→22:11)
[2018-04-05 07:28] LABS: BASO % 0.1 % (0-2.0); HEMATOCRIT 39.6 % (35.4-49); HEMOGLOBIN 12.8 GM/dL (11.7-16.9); LYMPH % 5.9 % (8-40); MCH 30.3 pg (25.7-33.7); MCHC 32.2 g/dl (32.0-35.9); MEAN CELL VOLUME 93.9 fl (80-96); MEAN PLT VOLUME 8.9 fl (7.5-11.1); MONO % 5.3 % (3.8-10.2); NEUT % 88.7 % (42.8-82.8); PLATELET COUNT 220 K/MM3 (134-434); RBC 4.22 M/mm3 (4.00-5.60); RDW 14.5 % (11.9-15.9); WHITE BLOOD COUNT 7.2 K/mm3 (4.0-10.0)
[2018-04-05] MEDS: ALBUTEROL SO4 0.083% IH SOL 2.5 MG/3 ML VIAL.NEB. NEB SCH ×3 (07:48→20:15)
[2018-04-05 08:10] LABS: ANION GAP 8 MMOL/L (8-16); BLOOD UREA NITROGEN 43 mg/dL (7-18); CALCIUM 8.5 mg/dL (8.5-10.1); CHLORIDE 105 mmol/L (98-107); CO2 25 mmol/L (21-32); CREATININE 1.7 mg/dL (0.55-1.3); GLUCOSE,RANDOM 140 mg/dL (74-106); POTASSIUM 4.5 mmol/L (3.5-5.1); SODIUM 139 mmol/L (136-145)
[2018-04-05] MEDS ORDERED: PT OWN MED DRAWER 7, Y5N ONE ×2 (09:16→09:56)
[2018-04-05] MEDS: SERTRALINE HCL 50 MG TABLET (FP) PO SCH (09:20)
[2018-04-05] MEDS: METOPROLOL TARTRATE 25 MG TABLET (FP) PO SCH ×2 (09:20→22:11)
[2018-04-05] MEDS: LISINOPRIL 5 MG TABLET (FP) PO SCH ×2 (09:21→22:11)
[2018-04-05] MEDS: ARTIFICIAL TEARS (POLYVINYL ALCOHOL) OPTH DROPS OU SCH ×2 (09:21→22:10)
[2018-04-05] MEDS: MULTIVITAMINS (DAILY MVI) TABLET (FP) PO SCH (09:21)
[2018-04-05] MEDS: methylPREDNISolone NA SUCC 40 MG/1 ML VIAL IVPUSH SCH ×2 (09:22→22:10)
[2018-04-05] MEDS: BUDESONIDE/FORMETEROL FUMARATE 160/4.5 mcg INHALER IH SCH ×2 (09:22→22:15)
[2018-04-05] MEDS: VANCOMYCIN 1 GRAM (PRE-DOCKED) 1,000 MG/250 ML BAG IVPB SCH (10:55)
--- NOTE | 2018-04-05 12:53 | PN ---
Progress Note, Physician History of Present Illness: improved able to move around breathing better - Current Medication List Current Medications: Active Medications Albuterol Sulfate (Ventolin 0.083% Nebulizer Soln -) 1 amp NEB RTID [facility] Last Admin: 04/05/18 07:48 Dose: 1 amp Artificial Tears (Artificial Tears) 1 drop OU BID [facility] Last Admin: 04/05/18 09:21 Dose: Not Given Budesonide/Formoterol Fumarate (Symbicort 160/4.5mcg -) 2 puff IH BID [facility] Last Admin: 04/05/18 09:22 Dose: 2 puff Carbidopa/Levodopa (Sinemet 25/100 -) 1 each PO TID [facility] Last Admin: 04/05/18 06:33 Dose: 1 each Heparin Sodium (Porcine) (Heparin -) 5,000 unit SQ TID [facility] Last Admin: 04/05/18 06:33 Dose: 5,000 unit Dextrose/Sodium Chloride (D5-1/2ns -) 1,000 mls @ 42 mls/hr IV ASDIR [facility] Last Admin: 04/03/18 23:01 Dose: Not Given Piperacillin Sod/Tazobactam (Sod 3.375 gm/ Dextrose) 50 mls @ 100 mls/hr IVPB Q8H-IV [facility]; Protocol Last Admin: 04/05/18 09:22 Dose: 100 mls/hr Vancomycin HCl (Vancomycin (Pre-Docked)) 1,000 mg in 250 mls @ 250 mls/hr IVPB Q24H [facility]; Protocol Last Admin: 04/05/18 10:55 Dose: 250 mls/hr Dextrose/Sodium Chloride (D5-1/2ns -) 1,000 mls @ 75 mls/hr IV ASDIR [facility] Last Admin: 04/04/18 22:06 Dose: Not Given Lisinopril (Prinivil) 5 mg PO BID [facility] Last Admin: 04/05/18 09:21 Dose: 5 mg Methylprednisolone Sodium Succinate (Solu-Medrol -) 40 mg IVPUSH BID [facility] Last Admin: 04/05/18 09:22 Dose: 40 mg Metoprolol Tartrate (Lopressor -) 25 mg PO BID [facility] Last Admin: 04/05/18 09:20 Dose: 25 mg Mirtazapine (Remeron -) 30 mg PO HS [facility] Last Admin: 04/04/18 21:26 Dose: 30 mg Montelukast Sodium (Singulair -) 10 mg PO HS [facility] Last Admin: 04/04/18 21:27 Dose: 10 mg Multivitamins/Minerals/Vitamin C (Tab-A-Vit -) 1 tab PO DAILY [facility] Last Admin: 04/05/18 09:21 Dose: 1 tab Sertraline HCl (Zoloft -) 50 mg PO DAILY [facility] Last Admin: 04/05/18 09:20 Dose: 50 mg Zolpidem Tartrate (Ambien -) 5 mg PO HS PRN PRN Reason: INSOMNIA Stop: 04/09/18 21:59 - Objective Vital Signs: Vital Signs Temperature 97.7 F 04/05/18 09:00 Pulse Rate 56 L 04/05/18 09:00 Respiratory Rate 18 04/05/18 09:00 Blood Pressure 147/68 04/05/18 09:00 O2 Sat by Pulse Oximetry (%) 97 04/05/18 09:00 Constitutional: Yes: No Distress, Calm Cardiovascular: Yes: S1, S2 Respiratory: Yes: Regular, On Nasal O2 Gastrointestinal: Yes: Normal Bowel Sounds, Soft Musculoskeletal: Yes: WNL Extremities: Yes: WNL Neurological: Yes: Alert, Oriented Psychiatric: Yes: Alert, Oriented Labs: CBC, BMP 04/05/18 06:00 04/05/18 06:00 INR, PTT INR 1.07 (0.83-1.09) 04/01/18 16:46 Assessment/Plan Problem List - Problems (1) Acute exacerbation of chronic obstructive pulmonary disease Code(s): J44.1 - CHRONIC OBSTRUCTIVE PULMONARY DISEASE W (ACUTE) EXACERBATION (2) Acute diastolic (congestive) heart failure Code(s): I50.31 - ACUTE DIASTOLIC (CONGESTIVE) HEART FAILURE (3) Bronchiectasis Code(s): J47.9 - BRONCHIECTASIS, UNCOMPLICATED (4) Emphysema of lung Code(s): J43.9 - EMPHYSEMA, UNSPECIFIED (5) HTN (hypertension) Code(s): I10 - ESSENTIAL (PRIMARY) HYPERTENSION (6) Lactic acid acidosis Code(s): E87.2 - ACIDOSIS (7) Parkinson disease Code(s): G20 - PARKINSON'S DISEASE (8) Major depress dis, severe Code(s): F32.2 - MAJOR DEPRESSV DISORD, SINGLE EPSD, SEV W/O PSYCH FEATURES plan will stop abx and watch incentive camacho resp support rest as per the team
--- NOTE | 2018-04-05 14:02 | PN ---
Progress Note, Physician History of Present Illness: pulmonary alert,comfortable,oob-chair,-sob - Current Medication List Current Medications: Active Medications Albuterol Sulfate (Ventolin 0.083% Nebulizer Soln -) 1 amp NEB RTID [facility] Last Admin: 04/05/18 07:48 Dose: 1 amp Artificial Tears (Artificial Tears) 1 drop OU BID [facility] Last Admin: 04/05/18 09:21 Dose: Not Given Budesonide/Formoterol Fumarate (Symbicort 160/4.5mcg -) 2 puff IH BID [facility] Last Admin: 04/05/18 09:22 Dose: 2 puff Carbidopa/Levodopa (Sinemet 25/100 -) 1 each PO TID [facility] Last Admin: 04/05/18 06:33 Dose: 1 each Heparin Sodium (Porcine) (Heparin -) 5,000 unit SQ TID [facility] Last Admin: 04/05/18 06:33 Dose: 5,000 unit Dextrose/Sodium Chloride (D5-1/2ns -) 1,000 mls @ 42 mls/hr IV ASDIR [facility] Last Admin: 04/03/18 23:01 Dose: Not Given Piperacillin Sod/Tazobactam (Sod 3.375 gm/ Dextrose) 50 mls @ 100 mls/hr IVPB Q8H-IV NADIA; Protocol Last Admin: 04/05/18 09:22 Dose: 100 mls/hr Vancomycin HCl (Vancomycin (Pre-Docked)) 1,000 mg in 250 mls @ 250 mls/hr IVPB Q24H [facility]; Protocol Last Admin: 04/05/18 10:55 Dose: 250 mls/hr Dextrose/Sodium Chloride (D5-1/2ns -) 1,000 mls @ 75 mls/hr IV ASDIR [facility] Last Admin: 04/04/18 22:06 Dose: Not Given Lisinopril (Prinivil) 5 mg PO BID [facility] Last Admin: 04/05/18 09:21 Dose: 5 mg Methylprednisolone Sodium Succinate (Solu-Medrol -) 40 mg IVPUSH BID [facility] Last Admin: 04/05/18 09:22 Dose: 40 mg Metoprolol Tartrate (Lopressor -) 25 mg PO BID [facility] Last Admin: 04/05/18 09:20 Dose: 25 mg Mirtazapine (Remeron -) 30 mg PO HS [facility] Last Admin: 04/04/18 21:26 Dose: 30 mg Montelukast Sodium (Singulair -) 10 mg PO HS [facility] Last Admin: 04/04/18 21:27 Dose: 10 mg Multivitamins/Minerals/Vitamin C (Tab-A-Vit -) 1 tab PO DAILY [facility] Last Admin: 04/05/18 09:21 Dose: 1 tab Sertraline HCl (Zoloft -) 50 mg PO DAILY [facility] Last Admin: 04/05/18 09:20 Dose: 50 mg Zolpidem Tartrate (Ambien -) 5 mg PO HS PRN PRN Reason: INSOMNIA Stop: 04/09/18 21:59 - Objective Vital Signs: Vital Signs Temperature 97.7 F 04/05/18 09:00 Pulse Rate 56 L 04/05/18 09:00 Respiratory Rate 18 04/05/18 09:00 Blood Pressure 147/68 04/05/18 09:00 O2 Sat by Pulse Oximetry (%) 97 04/05/18 09:00 Constitutional: Yes: Calm, Thin Eyes: Yes: WNL HENT: Yes: WNL Neck: Yes: WNL Cardiovascular: Yes: Regular Rate and Rhythm, S1, S2 Respiratory: Yes: Diminished Gastrointestinal: Yes: Normal Bowel Sounds, Soft Extremities: Yes: WNL Edema: No Labs: CBC, BMP 04/05/18 06:00 04/05/18 06:00 INR, PTT INR 1.07 (0.83-1.09) 04/01/18 16:46 Assessment/Plan Problem List - Problems (1) COPD exacerbation Code(s): J44.1 - CHRONIC OBSTRUCTIVE PULMONARY DISEASE W (ACUTE) EXACERBATION (2) Lactic acid acidosis Code(s): E87.2 - ACIDOSIS (3) Emphysema of lung Code(s): J43.9 - EMPHYSEMA, UNSPECIFIED (4) HTN (hypertension) Code(s): I10 - ESSENTIAL (PRIMARY) HYPERTENSION Assessment/Plan Acute COPD Exacerbation improving Bronchiectasis Emphysema Lactic Acidosis HTN CKD - IV medrol taper - inhaled bronchodilators standing and PRN - antibiotics per ID - O2 to keep Spo2 >90% - monitor urine output, creatinine - outpt PFTs - DVT prophylaxis - outpatient pulmonary rehab post discharge DR MOSLEY
[2018-04-05] MEDS: DEXTROSE 5%-0.45% SALINE 1,000 ML IV SCH (17:05)
--- NOTE | 2018-04-05 21:19 | PN ---
Progress Note, Physician Chief Complaint: Pt is feeling better Decreased SOB No Chest pain History of Present Illness: Cough, SOB,URTI Better today Pt is off IV fluids - Current Medication List Current Medications: Active Medications Albuterol Sulfate (Ventolin 0.083% Nebulizer Soln -) 1 amp NEB RTID [facility] Last Admin: 04/05/18 20:15 Dose: 1 amp Artificial Tears (Artificial Tears) 1 drop OU BID [facility] Last Admin: 04/05/18 09:21 Dose: Not Given Budesonide/Formoterol Fumarate (Symbicort 160/4.5mcg -) 2 puff IH BID [facility] Last Admin: 04/05/18 09:22 Dose: 2 puff Carbidopa/Levodopa (Sinemet 25/100 -) 1 each PO TID [facility] Last Admin: 04/05/18 16:00 Dose: 1 each Heparin Sodium (Porcine) (Heparin -) 5,000 unit SQ TID [facility] Last Admin: 04/05/18 16:00 Dose: 5,000 unit Dextrose/Sodium Chloride (D5-1/2ns -) 1,000 mls @ 42 mls/hr IV ASDIR [facility] Last Admin: 04/03/18 23:01 Dose: Not Given Piperacillin Sod/Tazobactam (Sod 3.375 gm/ Dextrose) 50 mls @ 100 mls/hr IVPB Q8H-IV [facility]; Protocol Last Admin: 04/05/18 17:04 Dose: 100 mls/hr Vancomycin HCl (Vancomycin (Pre-Docked)) 1,000 mg in 250 mls @ 250 mls/hr IVPB Q24H [facility]; Protocol Last Admin: 04/05/18 10:55 Dose: 250 mls/hr Dextrose/Sodium Chloride (D5-1/2ns -) 1,000 mls @ 75 mls/hr IV ASDIR [facility] Last Admin: 04/05/18 17:05 Dose: 75 mls/hr Lisinopril (Prinivil) 5 mg PO BID [facility] Last Admin: 04/05/18 09:21 Dose: 5 mg Methylprednisolone Sodium Succinate (Solu-Medrol -) 30 mg IVPUSH BID [facility] Metoprolol Tartrate (Lopressor -) 25 mg PO BID [facility] Last Admin: 04/05/18 09:20 Dose: 25 mg Mirtazapine (Remeron -) 30 mg PO HS [facility] Last Admin: 04/04/18 21:26 Dose: 30 mg Montelukast Sodium (Singulair -) 10 mg PO HS [facility] Last Admin: 04/04/18 21:27 Dose: 10 mg Multivitamins/Minerals/Vitamin C (Tab-A-Vit -) 1 tab PO DAILY [facility] Last Admin: 04/05/18 09:21 Dose: 1 tab Sertraline HCl (Zoloft -) 50 mg PO DAILY [facility] Last Admin: 04/05/18 09:20 Dose: 50 mg Zolpidem Tartrate (Ambien -) 5 mg PO HS PRN PRN Reason: INSOMNIA Stop: 04/09/18 21:59 - Objective Vital Signs: Vital Signs Temperature 97.6 F 04/05/18 16:15 Pulse Rate 98 H 04/05/18 16:15 Respiratory Rate 18 04/05/18 16:15 Blood Pressure 141/72 04/05/18 16:15 O2 Sat by Pulse Oximetry (%) 97 04/05/18 09:00 Constitutional: Yes: No Distress, Calm Eyes: Yes: Conjunctiva Clear, EOM Intact HENT: Yes: Atraumatic, Normocephalic Neck: Yes: Supple, Trachea Midline Cardiovascular: Yes: Regular Rate and Rhythm, S1, S2 Respiratory: Yes: Regular, CTA Bilaterally Gastrointestinal: Yes: Normal Bowel Sounds, Soft Edema: No Peripheral Pulses WNL: Yes Neurological: Yes: Alert, Oriented, Cran Nerves II-XII Intact Labs: CBC, BMP 04/05/18 06:00 04/05/18 06:00 INR, PTT INR 1.07 (0.83-1.09) 04/01/18 16:46 Problem List - Problems (1) Acute exacerbation of chronic obstructive pulmonary disease Code(s): J44.1 - CHRONIC OBSTRUCTIVE PULMONARY DISEASE W (ACUTE) EXACERBATION (2) Acute diastolic (congestive) heart failure Code(s): I50.31 - ACUTE DIASTOLIC (CONGESTIVE) HEART FAILURE (3) Bronchiectasis Code(s): J47.9 - BRONCHIECTASIS, UNCOMPLICATED (4) Emphysema of lung Code(s): J43.9 - EMPHYSEMA, UNSPECIFIED (5) HTN (hypertension) Code(s): I10 - ESSENTIAL (PRIMARY) HYPERTENSION (6) Lactic acid acidosis Code(s): E87.2 - ACIDOSIS (7) Parkinson disease Code(s): G20 - PARKINSON'S DISEASE (8) Major depress dis, severe Code(s): F32.2 - MAJOR DEPRESSV DISORD, SINGLE EPSD, SEV W/O PSYCH FEATURES Assessment/Plan 1) Acute exacerbation of chronic obstructive pulmonary disease Code(s): J44.1 - CHRONIC OBSTRUCTIVE PULMONARY DISEASE W (ACUTE) EXACERBATION (2) Acute diastolic (congestive) heart failure Code(s): I50.31 - ACUTE DIASTOLIC (CONGESTIVE) HEART FAILURE (3) Bronchiectasis Code(s): J47.9 - BRONCHIECTASIS, UNCOMPLICATED (4) Emphysema of lung Code(s): J43.9 - EMPHYSEMA, UNSPECIFIED (5) HTN (hypertension) Code(s): I10 - ESSENTIAL (PRIMARY) HYPERTENSION (6) Lactic acid acidosis Code(s): E87.2 - ACIDOSIS (7) Parkinson disease Code(s): G20 - PARKINSON'S DISEASE (8) Major depress dis, severe Code(s): F32.2 - MAJOR DEPRESSV DISORD, SINGLE EPSD, SEV W/O PSYCH FEATURES Pt is feeling better No SOB DC IV fluids
[2018-04-05] MEDS ORDERED: MIRTAZAPINE 15 MG TABLET (FP) ONE (22:06)
[2018-04-05] MEDS: MONTELUKAST NA 10 MG TABLET PO SCH (22:11)
[2018-04-05] MEDS: MIRTAZAPINE 30 MG TABLET (FP) PO SCH (22:16)
[2018-04-06] MEDS ORDERED: PIPERACILLIN/TAZOBACTAM 3.375 GM VIAL IVPB ONE ×2 (01:46→09:57)
[2018-04-06] MEDS ORDERED: DEXTROSE 5%-WATER - 50 ML IVPB ONE ×2 (01:47→09:58)
[2018-04-06] MEDS: PIPERACILLIN/TAZOB 3.375 GM 3.375 GM in DEXTROSE 5%-WATER - 50 ML IVPB SCH ×2 (02:03→10:02)
[2018-04-06] MEDS: DEXTROSE 5%-0.45% SALINE 1,000 ML IV SCH ×3 (02:15→13:57)
[2018-04-06] MEDS: CARBIDOPA/LEVODOPA 25/100 TABLET (FP) PO SCH ×2 (05:30→13:57)
[2018-04-06] MEDS: HEPARIN NA (PORCINE) 5,000 UNITS/ML 1ML VIAL SQ SCH ×2 (05:30→13:57)
[2018-04-06] MEDS: ALBUTEROL SO4 0.083% IH SOL 2.5 MG/3 ML VIAL.NEB. NEB SCH (07:57)
[2018-04-06] MEDS ORDERED: PT OWN MED DRAWER 7, Y5N ONE (09:59)
[2018-04-06] MEDS: BUDESONIDE/FORMETEROL FUMARATE 160/4.5 mcg INHALER IH SCH (10:01)
[2018-04-06] MEDS: MULTIVITAMINS (DAILY MVI) TABLET (FP) PO SCH (10:02)
[2018-04-06] MEDS: ARTIFICIAL TEARS (POLYVINYL ALCOHOL) OPTH DROPS OU SCH (10:02)
[2018-04-06] MEDS: methylPREDNISolone NA SUCC 40 MG/1 ML VIAL IVPUSH SCH (10:02)
[2018-04-06] MEDS: SERTRALINE HCL 50 MG TABLET (FP) PO SCH (10:02)
[2018-04-06] MEDS: LISINOPRIL 5 MG TABLET (FP) PO SCH (10:02)
[2018-04-06] MEDS: METOPROLOL TARTRATE 25 MG TABLET (FP) PO SCH (10:02)
--- NOTE | 2018-04-06 10:29 | PN ---
Progress Note, Physician History of Present Illness: improved able to move around breathing better off of nasal canula - Current Medication List Current Medications: Active Medications Albuterol Sulfate (Ventolin 0.083% Nebulizer Soln -) 1 amp NEB RTID [facility] Last Admin: 04/06/18 07:57 Dose: 1 amp Artificial Tears (Artificial Tears) 1 drop OU BID [facility] Last Admin: 04/06/18 10:02 Dose: Not Given Budesonide/Formoterol Fumarate (Symbicort 160/4.5mcg -) 2 puff IH BID [facility] Last Admin: 04/06/18 10:01 Dose: 2 puff Carbidopa/Levodopa (Sinemet 25/100 -) 1 each PO TID [facility] Last Admin: 04/06/18 05:30 Dose: 1 each Heparin Sodium (Porcine) (Heparin -) 5,000 unit SQ TID [facility] Last Admin: 04/06/18 05:30 Dose: 5,000 unit Dextrose/Sodium Chloride (D5-1/2ns -) 1,000 mls @ 42 mls/hr IV ASDIR [facility] Last Admin: 04/06/18 10:01 Dose: Not Given Dextrose/Sodium Chloride (D5-1/2ns -) 1,000 mls @ 75 mls/hr IV ASDIR [facility] Last Admin: 04/06/18 02:15 Dose: 75 mls/hr Lisinopril (Prinivil) 5 mg PO BID [facility] Last Admin: 04/06/18 10:02 Dose: 5 mg Methylprednisolone Sodium Succinate (Solu-Medrol -) 30 mg IVPUSH BID [facility] Last Admin: 04/06/18 10:02 Dose: 30 mg Metoprolol Tartrate (Lopressor -) 25 mg PO BID [facility] Last Admin: 04/06/18 10:02 Dose: 25 mg Mirtazapine (Remeron -) 30 mg PO HS [facility] Last Admin: 04/05/18 22:16 Dose: 30 mg Montelukast Sodium (Singulair -) 10 mg PO HS [facility] Last Admin: 04/05/18 22:11 Dose: 10 mg Multivitamins/Minerals/Vitamin C (Tab-A-Vit -) 1 tab PO DAILY [facility] Last Admin: 04/06/18 10:02 Dose: 1 tab Sertraline HCl (Zoloft -) 50 mg PO DAILY [facility] Last Admin: 04/06/18 10:02 Dose: 50 mg - Objective Vital Signs: Vital Signs Temperature 97.8 F 04/06/18 06:00 Pulse Rate 51 L 04/06/18 06:00 Respiratory Rate 18 04/06/18 06:00 Blood Pressure 146/69 04/06/18 06:00 O2 Sat by Pulse Oximetry (%) 97 04/05/18 21:00 Constitutional: Yes: No Distress, Calm Cardiovascular: Yes: Regular Rate and Rhythm Respiratory: Yes: Regular, CTA Bilaterally Gastrointestinal: Yes: Normal Bowel Sounds, Soft Musculoskeletal: Yes: WNL Extremities: Yes: WNL Neurological: Yes: Alert, Oriented Psychiatric: Yes: Alert, Oriented Labs: CBC, BMP 04/05/18 06:00 04/05/18 06:00 INR, PTT INR 1.07 (0.83-1.09) 04/01/18 16:46 Assessment/Plan Problem List - Problems (1) Acute exacerbation of chronic obstructive pulmonary disease Code(s): J44.1 - CHRONIC OBSTRUCTIVE PULMONARY DISEASE W (ACUTE) EXACERBATION (2) Acute diastolic (congestive) heart failure Code(s): I50.31 - ACUTE DIASTOLIC (CONGESTIVE) HEART FAILURE (3) Bronchiectasis Code(s): J47.9 - BRONCHIECTASIS, UNCOMPLICATED (4) Emphysema of lung Code(s): J43.9 - EMPHYSEMA, UNSPECIFIED (5) HTN (hypertension) Code(s): I10 - ESSENTIAL (PRIMARY) HYPERTENSION (6) Lactic acid acidosis Code(s): E87.2 - ACIDOSIS (7) Parkinson disease Code(s): G20 - PARKINSON'S DISEASE (8) Major depress dis, severe Code(s): F32.2 - MAJOR DEPRESSV DISORD, SINGLE EPSD, SEV W/O PSYCH FEATURES plan off of all abx now doing well incentive camacho resp support rest as per the team
--- NOTE | 2018-04-06 13:25 | PN ---
Progress Note, Physician History of Present Illness: pulmonary alert,oob-chair,-c/o sob,-cp - Current Medication List Current Medications: Active Medications Albuterol Sulfate (Ventolin 0.083% Nebulizer Soln -) 1 amp NEB RTID [facility] Last Admin: 04/06/18 07:57 Dose: 1 amp Artificial Tears (Artificial Tears) 1 drop OU BID [facility] Last Admin: 04/06/18 10:02 Dose: Not Given Budesonide/Formoterol Fumarate (Symbicort 160/4.5mcg -) 2 puff IH BID [facility] Last Admin: 04/06/18 10:01 Dose: 2 puff Carbidopa/Levodopa (Sinemet 25/100 -) 1 each PO TID [facility] Last Admin: 04/06/18 05:30 Dose: 1 each Heparin Sodium (Porcine) (Heparin -) 5,000 unit SQ TID [facility] Last Admin: 04/06/18 05:30 Dose: 5,000 unit Dextrose/Sodium Chloride (D5-1/2ns -) 1,000 mls @ 42 mls/hr IV ASDIR [facility] Last Admin: 04/06/18 10:01 Dose: Not Given Dextrose/Sodium Chloride (D5-1/2ns -) 1,000 mls @ 75 mls/hr IV ASDIR [facility] Last Admin: 04/06/18 02:15 Dose: 75 mls/hr Lisinopril (Prinivil) 5 mg PO BID [facility] Last Admin: 04/06/18 10:02 Dose: 5 mg Methylprednisolone Sodium Succinate (Solu-Medrol -) 30 mg IVPUSH BID [facility] Last Admin: 04/06/18 10:02 Dose: 30 mg Metoprolol Tartrate (Lopressor -) 25 mg PO BID [facility] Last Admin: 04/06/18 10:02 Dose: 25 mg Mirtazapine (Remeron -) 30 mg PO HS [facility] Last Admin: 04/05/18 22:16 Dose: 30 mg Montelukast Sodium (Singulair -) 10 mg PO HS [facility] Last Admin: 04/05/18 22:11 Dose: 10 mg Multivitamins/Minerals/Vitamin C (Tab-A-Vit -) 1 tab PO DAILY [facility] Last Admin: 04/06/18 10:02 Dose: 1 tab Sertraline HCl (Zoloft -) 50 mg PO DAILY [facility] Last Admin: 04/06/18 10:02 Dose: 50 mg - Objective Vital Signs: Vital Signs Temperature 98.0 F 04/06/18 10:41 Pulse Rate 81 04/06/18 10:41 Respiratory Rate 18 04/06/18 10:41 Blood Pressure 130/63 04/06/18 10:41 O2 Sat by Pulse Oximetry (%) 97 04/05/18 21:00 Constitutional: Yes: Calm, Thin Eyes: Yes: WNL HENT: Yes: WNL Neck: Yes: WNL Cardiovascular: Yes: Regular Rate and Rhythm, S1, S2 Respiratory: Yes: Diminished Gastrointestinal: Yes: Normal Bowel Sounds, Soft Extremities: Yes: WNL Edema: No Labs: CBC, BMP Assessment/Plan Problem List - Problems (1) COPD exacerbation Code(s): J44.1 - CHRONIC OBSTRUCTIVE PULMONARY DISEASE W (ACUTE) EXACERBATION (2) Lactic acid acidosis Code(s): E87.2 - ACIDOSIS (3) Emphysema of lung Code(s): J43.9 - EMPHYSEMA, UNSPECIFIED (4) HTN (hypertension) Code(s): I10 - ESSENTIAL (PRIMARY) HYPERTENSION Assessment/Plan Acute COPD Exacerbation improving Bronchiectasis Emphysema Lactic Acidosis HTN CKD - PREDNISONE - inhaled bronchodilators standing and PRN - antibiotics per ID - O2 to keep Spo2 >90% - monitor urine output, creatinine - outpt PFTs - DVT prophylaxis - outpatient pulmonary rehab post discharge DR MOSLEY
[2018-04-06 14:02] VITALS: BP 127/62; PULSE 59; TEMP 98.4
--- NOTE | 2018-04-06 15:45 | DS ---
Physical Examination Vital Signs: Vital Signs Temperature 98.4 F 04/06/18 14:01 Pulse Rate 59 L 04/06/18 14:01 Respiratory Rate 18 04/06/18 14:01 Blood Pressure 127/62 04/06/18 14:01 O2 Sat by Pulse Oximetry (%) 92 L 04/06/18 09:00 Constitutional: Yes: No Distress Eyes: Yes: Conjunctiva Clear, EOM Intact HENT: Yes: Atraumatic, Normocephalic Neck: Yes: Supple, Trachea Midline Cardiovascular: Yes: Regular Rate and Rhythm, S1, S2 Respiratory: Yes: Regular, CTA Bilaterally Gastrointestinal: Yes: Normal Bowel Sounds, Soft Musculoskeletal: Yes: Joint Stiffness Edema: No Neurological: Yes: Alert, Oriented, Cran Nerves II-XII Intact Labs: CBC, BMP 04/05/18 06:00 04/05/18 06:00 Discharge Summary Reason For Visit: CHRONIC OBSTRUCTIVE PULMONARY DISEASE; PNEUMONIA Current Active Problems COPD exacerbation (Acute) Lactic acid acidosis (Acute) Major depress dis, severe (Acute) Parkinson disease (Acute) Pneumonia (Acute) Other Procedures: Pt was admitted for COPd Excacerbation. Pt was seen by Pulmonary. ID also. IV antibotics and steroids. Pt is better now Condition: Stable - Instructions - Home Medications Comprehensive Discharge Medication List: Ambulatory Orders Budesonide/Formeterol Fumarate [SYMBICORT 160/4.5mcg -] 2 inh PO BID 02/24/17 Lisinopril 5 mg PO BID 02/25/17 Metoprolol Tartrate [Lopressor -] 25 mg PO BID 02/25/17 Montelukast Na [Singulair -] 10 mg PO HS 02/25/17 Multivitamin [Poly-Vitamin] 1 each PO DAILY 04/28/17 Albuterol 0.083% Nebulizer Magi [Ventolin 0.083%] 1 neb NEB TID 04/01/18 Azithromycin 500 mg PO DAILY 04/01/18 Ciprofloxacin HCl 500 mg PO DAILY 04/01/18 Dextran 70/Hypromellose [Artificial Tears] 1 each OP BID 04/01/18 Omeprazole 20 mg PO BID 04/01/18 Prednisone 15 mg PO DAILY 04/01/18
[2018-04-07] MEDS ORDERED: predniSONE 20 MG TABLET (UD) PO SCH (10:00)
== END 2018-04-06 15:59 | disposition home or self-care (01) | DRG 191 ==
LOC: JER 15:43 → JERBED 18:38 → J8W 19:57
PROVIDERS: ADMIT Internal Medicine; ATTEND Internal Medicine
DX: J44.1 Chronic obstructive pulmonary disease with (acute) exacerbation (principal); Z87.891 Personal history of nicotine dependence; E87.2 Acidosis; I50.30 Unspecified diastolic (congestive) heart failure; F31.9 Bipolar disorder, unspecified; F41.9 Anxiety disorder, unspecified; G20 Parkinson's disease; I11.0 Hypertensive heart disease with heart failure; F41.8 Other specified anxiety disorders; Z85.46 Personal history of malignant neoplasm of prostate
CPT/HCPCS: 36415; 71045-TC-FY; 80048; 80053; 81003; 81015; 82803; 83605; 83735; 84484; 85025; 85027; 85610; 85730; 87040; 87086; 87804; 93005; 93010; 94010; 94640; 99285-25; J1644

== ENCOUNTER 2018-04-16 15:11 | Inpatient (IN) | payer OTHER ==
[2018-04-16] MEDS ORDERED: ALBUTEROL SO4 0.083% IH SOL 2.5 MG/3 ML VIAL.NEB. NEB ONE ×2 (15:37→20:53)
[2018-04-16] MEDS: ALBUTEROL SO4 0.083% IH SOL 2.5 MG/3 ML VIAL.NEB. NEB SCH ×3 (15:45→21:17)
[2018-04-16] MEDS ORDERED: methylPREDNISolone NA SUCC 125 MG/2 ML VIAL IVPB ONE (15:55)
[2018-04-16 15:59] LABS: VENOUS PC02 56.1 mmHg (38-52); VENOUS PH 7.37 (7.32-7.42)
[2018-04-16 16:01] LABS: BASO % 0.3 % (0-2.0); EOS % 0.1 % (0-4.5); HEMATOCRIT 44.2 % (35.4-49); HEMOGLOBIN 15.4 GM/dL (11.7-16.9); LYMPH % 8.1 % (8-40); MCH 31.6 pg (25.7-33.7); MCHC 34.8 g/dl (32.0-35.9); MEAN CELL VOLUME 90.8 fl (80-96); MEAN PLT VOLUME 8.3 fl (7.5-11.1); NEUT % 83.5 % (42.8-82.8); PLATELET COUNT 223 K/MM3 (134-434); RBC 4.87 M/mm3 (4.00-5.60); RDW 14.7 % (11.9-15.9); WHITE BLOOD COUNT 7.7 K/mm3 (4.0-10.0)
--- NOTE | 2018-04-16 16:13 | PDOC ---
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 Pt has hx of chronic cough and is productive of clear sputum. Pt had a recent admission for SOB which improved with antibiotics, inhaler treatment, steroids and O2, discharged on steroids 40mg per day po. Pt saw PCP (Dr. Chen) 04/13 who wanted him to taper his dose of steroids. Since 04/14 pt has been taking 20mg prednisone and states the SOB progressively worsened since that day. Pt states while trying to walk to the grocery store he became profoundly out of breath and went back home. SOB did not improve, pt then called the ambulance. Pt requires 2L o2 at home. Denies F/C/N/V new cough, CP, abdominal pain, changes in bowel/bladder habits. Past History - Past Medical History Allergies/Adverse Reactions: Allergies Allergy/AdvReac Type Severity Reaction Status Date / Time No Known Allergies Allergy Verified 04/16/18 17:36 Home Medications: Ambulatory Orders Budesonide/Formeterol Fumarate [SYMBICORT 160/4.5mcg -] 2 inh PO BID 02/24/17 Lisinopril 5 mg PO BID 02/25/17 Metoprolol Tartrate [Lopressor -] 25 mg PO BID 02/25/17 Montelukast Na [Singulair -] 10 mg PO HS 02/25/17 Multivitamin [Poly-Vitamin] 1 each PO DAILY 04/28/17 Albuterol 0.083% Nebulizer Magi [Ventolin 0.083%] 1 neb NEB TID 04/01/18 Dextran 70/Hypromellose [Artificial Tears] 1 each OP BID 04/01/18 Omeprazole 20 mg PO BID 04/01/18 Prednisone 15 mg PO DAILY 04/01/18 Anemia: No Asthma: No Cancer: Yes (PROSTATE) Cardiac Disorders: No CVA: No COPD: Yes (EMPHYSEMA) CHF: No Dementia: No Diabetes: No GI Disorders: No Disorders: No HTN: Yes Hypercholesterolemia: No Liver Disease: No Psychiatric Problems: Yes (BIPOLAR) Seizures: No Thyroid Disease: No - Surgical History Abdominal Surgery: No Appendectomy: No Cardiac Surgery: Yes (LEFT) Cholecystectomy: Yes Lung Surgery: No Neurologic Surgery: No Orthopedic Surgery: No - Immunization History Immunization Up to Date: Yes - Suicide/Smoking/Psychosocial Hx Smoking History: Former smoker Have you smoked in the past 12 months: No If you are a former smoker, when did you quit?: 50 YEARS AGO Information on smoking cessation initiated: No Hx Alcohol Use: No Drug/Substance Use Hx: No Substance Use Type: None Hx Substance Use Treatment: No Review of Systems - Review of Systems Constitutional: No: Chills, Fever HEENTM: No: Nose Congestion, Throat Pain Respiratory: Yes: Cough, Shortness of Breath. No: Productive cough Cardiac (ROS): No: Chest Pain, Edema ABD/GI: No: Constipated, Diarrhea, Nausea, Vomiting : No: Burning, Dysuria, Frequency, Flank Pain Musculoskeletal: No: Back Pain Integumentary: No: Change in Color, Pallor Neurological: Yes: Weakness (generalized). No: Headache *Physical Exam - Vital Signs Last Vital Signs Temp Pulse Resp BP Pulse Ox 98.8 F 93 H 20 166/97 100 04/16/18 15:14 04/16/18 15:14 04/16/18 15:14 04/16/18 15:14 04/16/18 15:14 - Physical Exam General Appearance: Yes: Nourished, Appropriately Dressed. No: Apparent Distress HEENT: positive: EOMI Neck: positive: Supple Respiratory/Chest: positive: Wheezing (diffuse). negative: Lungs Clear, Normal Breath Sounds, Accessory Muscle Use, Crackles, Rales Cardiovascular: positive: Regular Rhythm, Regular Rate, S1, S2. negative: Edema , JVD, Murmur Vascular Pulses: Dorsalis-Pedis (R): 4+, Doralis-Pedis (L): 4+ Gastrointestinal/Abdominal: positive: Normal Bowel Sounds, Flat, Soft. negative : Pulsatile Mass, Distended, Guarding, Rebound, Tenderness Lymphatic: negative: Adenopathy Extremity: positive: Normal Capillary Refill Integumentary: positive: Normal Color, Dry, Warm Neurologic: positive: Fully Oriented, Alert, Normal Mood/Affect, Normal Response Moderate Sedation - Procedure Monitoring Vital Signs: Procedure Monitoring Vital Signs Temperature 98.8 F 04/16/18 15:14 Pulse Rate 93 H 04/16/18 15:14 Respiratory Rate 20 04/16/18 15:14 Blood Pressure 166/97 04/16/18 15:14 O2 Sat by Pulse Oximetry (%) 100 04/16/18 15:14 ED Treatment Course - LABORATORY CBC & Chemistry Diagram: 04/16/18 15:45 04/16/18 15:45 Medical Decision Making - Medical Decision Making 88 yo male presents to ED with hx COPD and SOB. No new cough or sputum production. Vitals WNL no fever Exam see note DDX: COPD exacerbation, PNA, bronchitis, URI Labs WNL. No WBC CXR no acute path 04/16/18 16:[address] Chen agrees to have pt admitted to hospitalist for COPD. Would like pt to have home dosed psych meds. 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 Castellon. PCP wanted Dr. Cedeño to be consulted and zosyn to be started but pt afebrile, WBC 7.7, chest x ray no acute pathology Will order sputum culture and defer treatment to Hospitalist and PCP *DC/Admit/Observation/Transfer Diagnosis at time of Disposition: COPD exacerbation - Discharge Dispostion Condition at time of disposition: Stable Decision to Admit order: Yes - Referrals - Patient Instructions - Post Discharge Activity
[2018-04-16] MEDS ORDERED: ALBUTEROL SO4 2.5/IPRATROPIUM 0.5 INH SOL 3 ML VIAL.NEB. NEB ONE (16:34)
[2018-04-16] MEDS ORDERED: methylPREDNISolone NA SUCC 125 MG/2 ML VIAL ONE (16:35)
[2018-04-16 16:37] LABS: ALBUMIN 3.4 g/dl (3.4-5.0); ALK PHOS 77 U/L (45-117); ANION GAP 7 MMOL/L (8-16); BILIRUBIN,TOTAL 0.6 mg/dL (0.2-1); BLOOD UREA NITROGEN 37 mg/dL (7-18); CALCIUM 8.7 mg/dL (8.5-10.1); CHLORIDE 98 mmol/L (98-107); CO2 30 mmol/L (21-32); CREATININE 1.4 mg/dL (0.55-1.3); GLUCOSE,RANDOM 127 mg/dL (74-106); POTASSIUM 5.1 mmol/L (3.5-5.1); SGOT/AST 67 U/L (15-37); SGPT/ALT 79 U/L (13-61); SODIUM 135 mmol/L (136-145); TOT PROT 6.3 g/dl (6.4-8.2)
[2018-04-16] MEDS ORDERED: PIPERACILLIN/TAZOB 4.5 GM 4.5 GM in DEXTROSE 5%-WATER 100 ML IVPB ONE (16:44)
--- NOTE | 2018-04-16 16:54 | PDOC ---
Attending Attestation - Resident Resident Name: IsajaredHeber - ED Attending Attestation I have performed the following: I have examined & evaluated the patient, The case was reviewed & discussed with the resident, I agree w/resident's findings & plan - HPI HPI: 04/16/18 16:53 88 YOM with a h/o HTN, COPD on 2L O2, Bronchiectasis, CKD,, Lactic Acidosis, and 2 PPD for 50 years (quit in 1999) presenting with 3 day history of worsening shortness of breath with his chronic cough productive of clear sputum. Patient reports that on his was to the store, he became increasingly short of breath prompting him to come to the ER for an evaluation. Patient had a recent admission for shortness of breath and was discharged home on 40mg of steroids daily and oral abx earlier in March 2018. Patient was seen by Dr. Chen on 04/13 who decreased his steroids to 20mg but he has noticed the shortness of breath has worsened since. Patient denies chest pain, fever, chills, nausea, or vomiting. Denies urinary symptoms or changes in bowel movements. Allergies: NKDA Surgeries: None reported. Social: Former smoker. No reported alcohol or drug use. PCP: Dr. Chen - Physicial Exam PE: 04/16/18 16:53 NAD, well appearing, PERRL, EOMI, nl conjunctiva, anicteric; neck supple. no jvd. bilateral expiratory wheezing, decreased BS bilaterally. RRR, abdomen soft nontender. MENA x4, no focal neuro deficits. No peripheral edema. normal color for ethnicity, WWP. no calf tenderness - Medical Decision Making 04/16/18 16:55 See HPI for details Vital signs reviewed, wnl. On supp 2L O2. Prior notes reviewed, including admissions, discharges and consultations. laboratory results and imaging reviewed, basic labs and lytes wnl, notable for normal VBG/pH, no significant retention or derangements. CXR_clear. no infiltrate noted. EKG normal sinus rhythm, no interval abnormalities, narrow QRS, ST and T wave segments and morphology normal. Nonspecific T wave abnormalities, similar to prior ED course: given duonebs x3, IV solumedrol. Most likely copd exacerbation, poor control. On baseline 2L O2, responding to nebs. No infection, no e/o pna, defer abx for now as he completed course on last admission. Dispo: Admit for COPD exacerbation. Discussed results and management plan with pt and family member at bedside, agree with impression and plan 04/16/18 17:15 Heart Score/ECG Review - ECG Impressions Normal ECG: No Comment:: 04/16/18 16:57 EKG normal sinus rhythm, no interval abnormalities, narrow QRS, ST and T wave segments and morphology normal. Nonspecific T wave abnormalities no change. 04/16/18 16:58
[2018-04-16] MEDS ORDERED: SERTRALINE HCL 50 MG TABLET (FP) PO ONE (17:15)
[2018-04-16] MEDS ORDERED: SERTRALINE HCL 50 MG TABLET (FP) ONE (17:40)
[2018-04-16] MEDS ORDERED: ACETAMINOPHEN 325 MG TABLET (FP) PO PRN (19:39)
[2018-04-16] MEDS ORDERED: PIPERACILLIN/TAZOB 3.375 GM 3.375 GM/50 ML BAG IVPB ONE ×2 (20:54→20:59)
[2018-04-16] MEDS: PIPERACILLIN/TAZOB 3.375 GM 3.375 GM in DEXTROSE 5%-WATER - 50 ML IVPB SCH (21:17)
[2018-04-16] MEDS ORDERED: MIRTAZAPINE 15 MG TABLET (FP) ONE (22:40)
[2018-04-16] MEDS: LISINOPRIL 5 MG TABLET (FP) PO SCH (22:45)
[2018-04-16] MEDS: METOPROLOL TARTRATE 25 MG TABLET (FP) PO SCH (22:45)
[2018-04-16] MEDS: PANTOPRAZOLE 20 MG TABLET (FP) PO SCH (22:45)
[2018-04-16] MEDS: CARBIDOPA/LEVODOPA 25/100 TABLET (FP) PO SCH (22:45)
[2018-04-16] MEDS: MONTELUKAST NA 10 MG TABLET PO SCH (22:45)
[2018-04-16] MEDS: MIRTAZAPINE 30 MG TABLET (FP) PO SCH (22:46)
[2018-04-16] MEDS: methylPREDNISolone NA SUCC 40 MG/1 ML VIAL IVPUSH SCH (22:46)
[2018-04-16] MEDS: ZOLPIDEM TARTRATE 5 MG TABLET PO PRN (22:49)
[2018-04-16] MEDS: BUDESONIDE/FORMETEROL FUMARATE 160/4.5 mcg INHALER IH SCH (22:49)
[2018-04-16] MEDS: ARTIFICIAL TEARS (POLYVINYL ALCOHOL) OPTH DROPS OU SCH ×2 (22:50→23:23)
--- NOTE | 2018-04-16 22:53 | HP ---
Admitting History and Physical - Primary Care Physician PCP: Ofe Cassidy - Admission Chief Complaint: Dyspnea on exertion and at rest History of Present Illness: 88 y/o man with significant past medical history of HTN, COPD, Emphysema, Former 2PPD X 50 year smoking (quit in 1999) presents to ED for evaluation due to PEARSON x 3days. Of note, pt was admitted two weeks ago on 04/01 and remained in- p for 5days due to COPD Excacerbation, treated with IV antibotics and steroids. Pt was discharged home on prednisone 40mg and remained stable on this dose until three days ago when his dose was reduced to 15mg daily. At this point he has been experiencing progressive dyspnea and reduced ability to complete ADLs. He denies sick contacts post hospital discharge, nor recent travel. Denies fever /chills/nausea/vomiting/chest pain. In ED -vitals were BP 166/97mmHg, HR 93, temp 98.8, RR 20, O2 sat 100%. CXR noted is the increased density by the right first rib and right apex. Further imaging suggested. Pt will be admitted for intensive management. He was restarted on IV steroids and abx and will be seen by primary team in AM. History Source: Patient Limitations to Obtaining History: No Limitations - Past Medical History [employer]: Yes: Parkinson's Cardiovascular: Yes: HTN Pulmonary: Yes: COPD, O2 Dependent, Other (Emphysema) Renal/: Yes: Renal Inusuff Psych: Yes: Anxiety, Depression Musculoskeletal: Yes: Osteoarthritis - Smoking History Smoking history: Former smoker (h/o 2.5PPD x 50yrs) Have you smoked in the past 12 months: No If you are a former smoker, when did you quit?: 50 YEARS AGO - Alcohol/Substance Use Hx Alcohol Use: No History of Substance Use: reports: None - Social History ADL: Independent History of Recent Travel: No Home Medications - Allergies Allergies/Adverse Reactions: Allergies Allergy/AdvReac Type Severity Reaction Status Date / Time No Known Allergies Allergy Verified 04/16/18 17:36 - Home Medications Home Medications: Ambulatory Orders Budesonide/Formeterol Fumarate [SYMBICORT 160/4.5mcg -] 2 inh PO BID 02/24/17 Lisinopril 5 mg PO BID 02/25/17 Metoprolol Tartrate [Lopressor -] 25 mg PO BID 02/25/17 Montelukast Na [Singulair -] 10 mg PO HS 02/25/17 Multivitamin [Poly-Vitamin] 1 each PO DAILY 04/28/17 Albuterol 0.083% Nebulizer Magi [Ventolin 0.083%] 1 neb NEB TID 04/01/18 Dextran 70/Hypromellose [Artificial Tears] 1 each OP BID 04/01/18 Omeprazole 20 mg PO BID 04/01/18 Prednisone 15 mg PO DAILY 04/01/18 Home Medications (free text): remeron 30mg qhs. Zoloft 50mg qam. ambien 5mg qhs. carbidopa-ldopa 25/100mg TID Family Disease History - Family Disease History Family Disease History: Other: Mother ( (77) CA), Brother ( (60 ) CVA), Sister ( (60) breast cancer) Review of Systems - Review of Systems Cardiovascular: reports: Shortness of Breath Respiratory: reports: Cough, Exercise Intolerance, SOB on Exertion, Wheezing Musculoskeletal: reports: Muscle Weakness Neurological: reports: Unsteady Gait Psychiatric: reports: Depression Physical Examination Vital Signs: Vital Signs Temperature 98.8 F 04/16/18 15:14 Pulse Rate 93 H 04/16/18 15:14 Respiratory Rate 20 04/16/18 15:14 Blood Pressure 166/97 04/16/18 15:14 O2 Sat by Pulse Oximetry (%) 100 04/16/18 17:28 Constitutional: Yes: No Distress, Calm Eyes: Yes: Conjunctiva Clear, PERRL HENT: Yes: Atraumatic, Normocephalic Neck: Yes: Supple, Trachea Midline Cardiovascular: Yes: Regular Rate and Rhythm Respiratory: Yes: Rhonchi, Wheezes Gastrointestinal: Yes: Normal Bowel Sounds, Soft ...Rectal Exam: Yes: Deferred Musculoskeletal: Yes: Joint Stiffness Extremities: Yes: WNL Edema: Yes Edema: LLE: Trace, RLE: Trace Peripheral Pulses: Left Radial: 2+, Right Radial: 2+ Integumentary: Yes: WNL Neurological: Yes: Alert, Oriented, Tremors, Unsteady Gait, Weakness ...Motor Strength: LLE (decreased 3/5), RLE (decreased 3/5) Psychiatric: Yes: Alert, Oriented Labs: CBC, BMP 04/16/18 15:45 04/16/18 15:45 Imaging - Results X-ray: Report Reviewed (CXR 04/16/2017 Impression: Again noted is the increased density by the right first rib and right apex. Further imaging suggested) Problem List - Problems (1) Depression Assessment/Plan: continue remeron and zoloft Code(s): F32.9 - MAJOR DEPRESSIVE DISORDER, SINGLE EPISODE, UNSPECIFIED Qualifiers: Depression Type: major depressive disorder Major depression recurrence: unspecified whether recurrent Active/Remission status: currently active Major depression episode severity: mild Qualified Code(s): F32.0 - Major depressive disorder, single episode, mild (2) Insomnia disorder Assessment/Plan: ambien 5mg qhs PRN sleep hygiene discussed Code(s): G47.00 - INSOMNIA, UNSPECIFIED (3) Prophylactic measure Assessment/Plan: OOB to chair Incentive spirometry bowel regimen with senna and colace SC heparin TID PPI daily Code(s): Z29.9 - ENCOUNTER FOR PROPHYLACTIC MEASURES, UNSPECIFIED (4) COPD exacerbation Assessment/Plan: Zosyn q8hrs singulair 10mg daily methylpred 40mg BID symbicort BID Albuterol neb QID pulmonary following Code(s): J44.1 - CHRONIC OBSTRUCTIVE PULMONARY DISEASE W (ACUTE) EXACERBATION (5) HTN (hypertension) Code(s): I10 - ESSENTIAL (PRIMARY) HYPERTENSION (6) HTN (hypertension) Assessment/Plan: cardiac diet continue WILMA and BB Code(s): I10 - ESSENTIAL (PRIMARY) HYPERTENSION (7) Parkinson disease Assessment/Plan: continue carbidopa/L-dopa fall precautions OOB to chair with assistance Code(s): G20 - PARKINSON'S DISEASE Assessment/Plan Full code Visit type - Emergency Visit Emergency Visit: Yes ED Registration Date: 04/16/18 Care time: The patient presented to the Emergency Department on the above date and was hospitalized for further evaluation of their emergent condition. - New Patient This patient is new to me today: Yes Date on this admission: 04/16/18 - Critical Care Critical Care patient: No
[2018-04-16] MEDS ORDERED: SENNOSIDES 8.6MG TABLET (FP) PO PRN (23:01)
[2018-04-16] MEDS ORDERED: DOCUSATE SODIUM 100 MG CAPSULE (FP) PO PRN (23:01)
[2018-04-17] MEDS ORDERED: DEXTROSE 5%-WATER - 50 ML IVPB ONE ×2 (01:10→20:35)
[2018-04-17] MEDS ORDERED: PIPERACILLIN/TAZOBACTAM 3.375 GM VIAL IVPB ONE (01:10)
[2018-04-17] MEDS: PIPERACILLIN/TAZOB 3.375 GM 3.375 GM in DEXTROSE 5%-WATER - 50 ML IVPB SCH (01:51)
[2018-04-17] MEDS ORDERED: PIPERACILLIN/TAZOB 3.375 GM 3.375 GM in DEXTROSE 5%-WATER - 50 ML IVPB SCH (02:00)
[2018-04-17] MEDS: HEPARIN NA (PORCINE) 5,000 UNITS/ML 1ML VIAL SQ SCH ×4 (05:41→21:01)
[2018-04-17] MEDS: CARBIDOPA/LEVODOPA 25/100 TABLET (FP) PO SCH ×4 (05:41→21:02)
[2018-04-17 08:28] LABS: HEMOGLOBIN 14.6 GM/dL (11.7-16.9); MCH 30.3 pg (25.7-33.7); MCHC 33.1 g/dl (32.0-35.9); MEAN CELL VOLUME 91.6 fl (80-96); MEAN PLT VOLUME 8.6 fl (7.5-11.1); PLATELET COUNT 197 K/MM3 (134-434); RBC 4.81 M/mm3 (4.00-5.60); RDW 14.4 % (11.9-15.9); WHITE BLOOD COUNT 5.2 K/mm3 (4.0-10.0)
[2018-04-17] MEDS: ALBUTEROL SO4 0.083% IH SOL 2.5 MG/3 ML VIAL.NEB. NEB SCH ×3 (08:47→20:00)
[2018-04-17 09:00] LABS: INR 1.03 (0.83-1.09); PROTHROMBIN TIME (PATIENT) 12.2 SEC (9.7-13.0)
[2018-04-17 09:03] LABS: ACTIVATED PTT 24.7 SECONDS (25.2-36.5)
[2018-04-17 09:18] LABS: ALBUMIN 3.2 g/dl (3.4-5.0); ALK PHOS 72 U/L (45-117); ANION GAP 9 MMOL/L (8-16); BILIRUBIN,TOTAL 0.9 mg/dL (0.2-1); BLOOD UREA NITROGEN 40 mg/dL (7-18); CALCIUM 8.4 mg/dL (8.5-10.1); CHLORIDE 100 mmol/L (98-107); CO2 28 mmol/L (21-32); CREATININE 1.5 mg/dL (0.55-1.3); GLUCOSE,RANDOM 148 mg/dL (74-106); MAGNESIUM 2.3 mg/dL (1.8-2.4); PHOSPHOROUS 4.6 mg/dL (2.5-4.9); POTASSIUM 5.1 mmol/L (3.5-5.1); SGOT/AST 34 U/L (15-37); SGPT/ALT 33 U/L (13-61); SODIUM 137 mmol/L (136-145); TOT PROT 5.8 g/dl (6.4-8.2)
[2018-04-17] MEDS ORDERED: predniSONE 20 MG TABLET (UD) PO SCH (10:00)
--- NOTE | 2018-04-17 10:29 | PN ---
Physical Exam: SUBJECTIVE: Patient seen and examined at the bedside. denies chest pain, home oxygen dependent OBJECTIVE: elevated trops with elevated bnp. will send him for echo chest ct ordered Vital Signs Period Temp Pulse Resp BP Sys/[place] Pulse Ox Last 24 Hr 97.6 F-98.8 F 66-98 18-22 108-166/70-97 98-100 GENERAL: The patient is awake, alert, and fully oriented, in no acute distress. HEAD: Normal with no signs of trauma. EYES: PERRL, extraocular movements intact, sclera anicteric, conjunctiva clear. No ptosis. ENT: Ears normal, nares patent, oropharynx clear without exudates, moist mucous membranes. NECK: Trachea midline, full range of motion, supple. LUNGS: faint wheezing on right upper and lower lobe. left lung diminished. HEART: Regular rate and rhythm ABDOMEN: Soft, nontender, nondistended, normoactive bowel sounds, no guarding, no rebound, no hepatosplenomegaly, no masses. EXTREMITIES: no edema. NEUROLOGICAL: Normal speech, gait not \observed. PSYCH: Normal mood, normal affect. SKIN: Warm, dry, normal turgor, no rashes or lesions noted Laboratory Results - last 24 hr 04/16/18 04/16/18 04/16/18 15:45 15:45 15:47 WBC 7.7 RBC 4.87 Hgb 15.4 Hct 44.2 MCV 90.8 MCH 31.6 MCHC 34.8 RDW 14.7 Plt Count 223 MPV 8.3 Absolute Neuts (auto) 6.4 Neutrophils % 83.5 H Lymphocytes % 8.1 D Monocytes % 8.0 Eosinophils % 0.1 D Basophils % 0.3 Nucleated RBC % 0 PT with INR INR PTT (Actin FS) VBG pH 7.37 POC VBG pCO2 56.1 H POC VBG pO2 27.0 L Mixed VBG HCO3 31.4 H Sodium 135 L Potassium 5.1 Chloride 98 Carbon Dioxide 30 Anion Gap 7 L BUN 37 H Creatinine 1.4 H Creat Clearance w eGFR 48.05 Random Glucose 127 H Calcium 8.7 Phosphorus Magnesium Total Bilirubin 0.6 AST 67 H ALT 79 H Alkaline Phosphatase 77 Troponin I B-Natriuretic Peptide Total Protein 6.3 L Albumin 3.4 04/17/18 04/17/18 04/17/18 07:00 07:00 07:00 WBC 5.2 RBC 4.81 Hgb 14.6 Hct 44.0 MCV 91.6 MCH 30.3 MCHC 33.1 RDW 14.4 Plt Count 197 MPV 8.6 Absolute Neuts (auto) Neutrophils % Lymphocytes % Monocytes % Eosinophils % Basophils % Nucleated RBC % PT with INR 12.20 INR 1.03 PTT (Actin FS) 24.7 L VBG pH POC VBG pCO2 POC VBG pO2 Mixed VBG HCO3 Sodium 137 Potassium 5.1 Chloride 100 Carbon Dioxide 28 Anion Gap 9 BUN 40 H Creatinine 1.5 H Creat Clearance w eGFR 44.37 Random Glucose 148 H Calcium 8.4 L Phosphorus 4.6 Magnesium 2.3 Total Bilirubin 0.9 AST 34 ALT 33 Alkaline Phosphatase 72 Troponin I 2.03 H* B-Natriuretic Peptide 7140.0 H Total Protein 5.8 L Albumin 3.2 L Active Medications Generic Name Dose Route Start Last Admin Trade Name Freq PRN Reason Stop Dose Admin Acetaminophen 650 mg 04/16/18 19:39 Tylenol - PO Q6H PRN FEVER Albuterol Sulfate 1 amp 04/16/18 20:00 04/17/18 08:47 Ventolin 0.083% Nebulizer Soln - NEB 1 amp RTID NADIA Administration Artificial Tears 1 drop 04/16/18 22:00 04/16/18 23:23 Artificial Tears OU Not Given BID NADIA Budesonide/Formoterol Fumarate 2 puff 04/16/18 22:00 04/16/18 22:49 Symbicort 160/4.5mcg - IH 2 puff BID NADIA Administration Carbidopa/Levodopa 1 each 04/16/18 22:00 04/17/18 05:41 Sinemet 25/100 - PO 1 each TID NADIA Administration Docusate Sodium 100 mg 04/16/18 23:01 Colace - PO Q8H PRN CONSTIPATION Heparin Sodium (Porcine) 5,000 unit 04/17/18 06:00 04/17/18 05:41 Heparin - SQ 5,000 unit TID NADIA Administration Piperacillin Sod/Tazobactam 50 mls @ 100 mls/hr 04/17/18 02:00 Sod 3.375 gm/ Dextrose IVPB Q8H-IV NADIA Protocol Lisinopril 5 mg 04/16/18 22:00 04/16/18 22:45 Prinivil PO 5 mg BID NADIA Administration Methylprednisolone Sodium Succinate 40 mg 04/16/18 22:00 04/16/18 22:46 Solu-Medrol - IVPUSH 40 mg BID NADIA Administration Metoprolol Tartrate 25 mg 04/16/18 22:00 04/16/18 22:45 Lopressor - PO 25 mg BID NADIA Administration Mirtazapine 30 mg 04/16/18 22:00 04/16/18 22:46 Remeron - PO 30 mg HS NADIA Administration Montelukast Sodium 10 mg 04/16/18 22:00 04/16/18 22:45 Singulair - PO 10 mg HS NADIA Administration Multivitamins/Minerals/Vitamin C 1 tab 04/17/18 10:00 Tab-A-Vit - PO DAILY NADIA Pantoprazole Sodium 20 mg 04/16/18 22:00 04/16/18 22:45 Protonix - PO 20 mg BID NADIA Administration Senna 2 tab 04/16/18 23:01 Senna - PO HS PRN CONSTIPATION Sertraline HCl 50 mg 04/17/18 10:00 Zoloft - PO DAILY NADIA Zolpidem Tartrate 5 mg 04/16/18 22:00 04/16/18 22:49 Ambien - PO 5 mg HS PRN Administration INSOMNIA ASSESSMENT/PLAN:
--- NOTE | 2018-04-17 10:46 | PN ---
Progress Note, Physician Chief Complaint: SOB better Pt is having 4 loose stools Elevated Troponin Trending Now LV Hypokinesis Cardiav Eval. - Current Medication List Current Medications: Active Medications Acetaminophen (Tylenol -) 650 mg PO Q6H PRN PRN Reason: FEVER Albuterol Sulfate (Ventolin 0.083% Nebulizer Soln -) 1 amp NEB RTID [facility] Last Admin: 04/17/18 08:47 Dose: 1 amp Artificial Tears (Artificial Tears) 1 drop OU BID [facility] Last Admin: 04/16/18 23:23 Dose: Not Given Budesonide/Formoterol Fumarate (Symbicort 160/4.5mcg -) 2 puff IH BID [facility] Last Admin: 04/16/18 22:49 Dose: 2 puff Carbidopa/Levodopa (Sinemet 25/100 -) 1 each PO TID [facility] Last Admin: 04/17/18 05:41 Dose: 1 each Docusate Sodium (Colace -) 100 mg PO Q8H PRN PRN Reason: CONSTIPATION Heparin Sodium (Porcine) (Heparin -) 5,000 unit SQ TID [facility] Last Admin: 04/17/18 05:41 Dose: 5,000 unit Piperacillin Sod/Tazobactam (Sod 3.375 gm/ Dextrose) 50 mls @ 100 mls/hr IVPB Q8H-IV NADIA; Protocol Lisinopril (Prinivil) 5 mg PO BID [facility] Last Admin: 04/16/18 22:45 Dose: 5 mg Methylprednisolone Sodium Succinate (Solu-Medrol -) 40 mg IVPUSH BID [facility] Last Admin: 04/16/18 22:46 Dose: 40 mg Metoprolol Tartrate (Lopressor -) 25 mg PO BID [facility] Last Admin: 04/16/18 22:45 Dose: 25 mg Mirtazapine (Remeron -) 30 mg PO HS [facility] Last Admin: 04/16/18 22:46 Dose: 30 mg Montelukast Sodium (Singulair -) 10 mg PO HS [facility] Last Admin: 04/16/18 22:45 Dose: 10 mg Multivitamins/Minerals/Vitamin C (Tab-A-Vit -) 1 tab PO DAILY [facility] Pantoprazole Sodium (Protonix -) 20 mg PO BID [facility] Last Admin: 04/16/18 22:45 Dose: 20 mg Senna (Senna -) 2 tab PO HS PRN PRN Reason: CONSTIPATION Sertraline HCl (Zoloft -) 50 mg PO DAILY NADIA Zolpidem Tartrate (Ambien -) 5 mg PO HS PRN PRN Reason: INSOMNIA Last Admin: 04/16/18 22:49 Dose: 5 mg - Objective Vital Signs: Vital Signs Temperature 97.6 F 04/17/18 09:50 Pulse Rate 71 04/17/18 09:50 Respiratory Rate 18 04/17/18 09:50 Blood Pressure 118/70 04/17/18 09:50 O2 Sat by Pulse Oximetry (%) 98 04/17/18 00:30 Constitutional: Yes: Anxious Eyes: Yes: Conjunctiva Clear, EOM Intact HENT: Yes: Atraumatic, Normocephalic Neck: Yes: Supple Cardiovascular: Yes: Regular Rate and Rhythm, S1, S2, S3 Respiratory: Yes: Regular, CTA Bilaterally Gastrointestinal: Yes: Normal Bowel Sounds, Soft Musculoskeletal: Yes: Joint Stiffness Edema: No Peripheral Pulses WNL: Yes Labs: CBC, BMP 04/17/18 07:00 04/17/18 07:00 INR, PTT INR 1.03 (0.83-1.09) 04/17/18 07:00 Problem List - Problems (1) Hypercapnic respiratory failure, chronic Code(s): J96.12 - CHRONIC RESPIRATORY FAILURE WITH HYPERCAPNIA (2) COPD exacerbation Code(s): J44.1 - CHRONIC OBSTRUCTIVE PULMONARY DISEASE W (ACUTE) EXACERBATION (3) Lactic acid acidosis Code(s): E87.2 - ACIDOSIS (4) Major depress dis, severe Code(s): F32.2 - MAJOR DEPRESSV DISORD, SINGLE EPSD, SEV W/O PSYCH FEATURES (5) Pneumonia Code(s): J18.9 - PNEUMONIA, UNSPECIFIED ORGANISM Qualifiers: Pneumonia type: due to unspecified organism (6) Non-ST elevation CO (NSTEMI) Code(s): I21.4 - NON-ST ELEVATION (NSTEMI) MYOCARDIAL INFARCTION (7) CHF (congestive heart failure), NYHA class II Code(s): I50.9 - HEART FAILURE, UNSPECIFIED (8) Anxiety Code(s): F41.9 - ANXIETY DISORDER, UNSPECIFIED (9) Bronchiectasis Code(s): J47.9 - BRONCHIECTASIS, UNCOMPLICATED (10) Demand ischemia Code(s): I24.8 - OTHER FORMS OF ACUTE ISCHEMIC HEART DISEASE (11) Elevated troponin Code(s): R74.8 - ABNORMAL LEVELS OF OTHER SERUM ENZYMES (12) Acute diarrhea Code(s): R19.7 - DIARRHEA, UNSPECIFIED Assessment/Plan Pt Troponins suggestive of Non St elevation CO Cut Down Metoprolol to 25 c Once daily Mild Diuressis with lasix 20 daily /Kcl Mild Hydration with D5 1/2 ND 40 ml /Hr for Low BP we will Discuss with cardiology regarding Hypokinesia of LV Pt may need Cardiac cath after Pneumonia resolves/Cavity
[2018-04-17] MEDS: LISINOPRIL 5 MG TABLET (FP) PO SCH ×2 (11:41→21:01)
[2018-04-17] MEDS: PANTOPRAZOLE 20 MG TABLET (FP) PO SCH ×3 (11:41→21:01)
[2018-04-17] MEDS: METOPROLOL TARTRATE 25 MG TABLET (FP) PO SCH (11:41)
[2018-04-17] MEDS: methylPREDNISolone NA SUCC 40 MG/1 ML VIAL IVPUSH SCH ×3 (11:41→21:02)
[2018-04-17] MEDS: MULTIVITAMINS (DAILY MVI) TABLET (FP) PO SCH (11:41)
[2018-04-17] MEDS: BUDESONIDE/FORMETEROL FUMARATE 160/4.5 mcg INHALER IH SCH ×2 (11:42→21:00)
[2018-04-17] MEDS: ARTIFICIAL TEARS (POLYVINYL ALCOHOL) OPTH DROPS OU SCH ×2 (11:43→21:01)
--- NOTE | 2018-04-17 11:44 | CON.ID ---
Consult Consult Specialty:: infectious diseases Referred by:: Reason for Consultation:: copd exacerebration,pneumonia - History of Present Illness Chief Complaint: sob,cough History of Present Illness: 88 y/o man with significant past medical history of HTN, COPD, Emphysema, Former 2PPD X 50 year smoking (quit in 1999) presents to ED for evaluation due to PEARSON x 3days. Of note, pt was admitted two weeks ago on 04/01 and remained in- p for 5days due to COPD Excacerbation, treated with IV antibotics and steroids. Pt was discharged home on prednisone 40mg and remained stable on this dose until three days ago when his dose was reduced to 15mg daily. At this point he has been experiencing progressive dyspnea and reduced ability to complete ADLs. He denies sick contacts post hospital discharge, nor recent travel. Denies fever /chills/nausea/vomiting/chest pain. 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 Cardio/Vascular: Yes: HTN Pulmonary: Yes: COPD, O2 Dependent, Other (Emphysema) Renal/: Yes: Renal Inusuff Psych: Yes: Anxiety, Depression Musculoskeletal: Yes: Osteoarthritis - Alcohol/Substance Use Hx Alcohol Use: No History of Substance Use: reports: None - Smoking History Smoking history: Former smoker Have you smoked in the past 12 months: No If you are a former smoker, when did you quit?: 50 YEARS AGO - Social History ADL: Independent History of Recent Travel: No Home Medications - Allergies Allergies/Adverse Reactions: Allergies Allergy/AdvReac Type Severity Reaction Status Date / Time No Known Allergies Allergy Verified 04/16/18 17:36 - Home Medications Home Medications: Ambulatory Orders Budesonide/Formeterol Fumarate [SYMBICORT 160/4.5mcg -] 2 inh PO BID 02/24/17 Lisinopril 5 mg PO BID 02/25/17 Metoprolol Tartrate [Lopressor -] 25 mg PO BID 02/25/17 Montelukast Na [Singulair -] 10 mg PO HS 02/25/17 Multivitamin [Poly-Vitamin] 1 each PO DAILY 04/28/17 Albuterol 0.083% Nebulizer Magi [Ventolin 0.083%] 1 neb NEB TID 04/01/18 Dextran 70/Hypromellose [Artificial Tears] 1 each OP BID 04/01/18 Omeprazole 20 mg PO BID 04/01/18 Prednisone 15 mg PO DAILY 04/01/18 Family Disease History - Family Disease History Family Disease History: Other: Mother ( (77) [place]), Brother ( (60 ) CVA), Sister ( (60) breast cancer) Review of Systems - Review of Systems Constitutional: reports: No Symptoms Eyes: reports: No Symptoms HENT: reports: No Symptoms Neck: reports: No Symptoms Cardiovascular: reports: Shortness of Breath Respiratory: reports: Cough, SOB on Exertion Gastrointestinal: reports: No Symptoms Genitourinary: reports: No Symptoms Musculoskeletal: reports: No Symptoms Integumentary: reports: No Symptoms Neurological: reports: No Symptoms Endocrine: reports: No Symptoms Hematology/Lymphatic: reports: No Symptoms Psychiatric: reports: No Symptoms Physical Exam Vital Signs: Vital Signs Temperature 97.6 F 04/17/18 09:50 Pulse Rate 71 04/17/18 09:50 Respiratory Rate 18 04/17/18 09:50 Blood Pressure 118/70 04/17/18 09:50 O2 Sat by Pulse Oximetry (%) 98 04/17/18 00:30 Constitutional: Yes: Calm, Thin Eyes: Yes: Conjunctiva Clear Neck: Yes: Supple Cardiovascular: Yes: Regular Rate and Rhythm Respiratory: Yes: Regular, On Nasal O2, Rhonchi Gastrointestinal: Yes: Normal Bowel Sounds, Soft Musculoskeletal: Yes: WNL Extremities: Yes: WNL Neurological: Yes: Alert, Oriented Psychiatric: Yes: Alert, Oriented Labs: CBC, BMP 04/17/18 07:00 04/17/18 07:00 Imaging - Results Chest X-ray: Report Reviewed, Image Reviewed Cat Scan: Report Reviewed, Image Reviewed Assessment/Plan Problem List - Problems (1) Hypercapnic respiratory failure, chronic Code(s): J96.12 - CHRONIC RESPIRATORY FAILURE WITH HYPERCAPNIA (2) COPD exacerbation Code(s): J44.1 - CHRONIC OBSTRUCTIVE PULMONARY DISEASE W (ACUTE) EXACERBATION (3) Lactic acid acidosis Code(s): E87.2 - ACIDOSIS (4) Major depress dis, severe Code(s): F32.2 - MAJOR DEPRESSV DISORD, SINGLE EPSD, SEV W/O PSYCH FEATURES (5) Pneumonia Code(s): J18.9 - PNEUMONIA, UNSPECIFIED ORGANISM Qualifiers: Pneumonia type: due to unspecified organism (6) Non-ST elevation [place] (NSTEMI) Code(s): I21.4 - NON-ST ELEVATION (NSTEMI) MYOCARDIAL INFARCTION (7) CHF (congestive heart failure), NYHA class II Code(s): I50.9 - HEART FAILURE, UNSPECIFIED (8) Anxiety Code(s): F41.9 - ANXIETY DISORDER, UNSPECIFIED (9) Bronchiectasis Code(s): J47.9 - BRONCHIECTASIS, UNCOMPLICATED (10) Demand ischemia Code(s): I24.8 - OTHER FORMS OF ACUTE ISCHEMIC HEART DISEASE (11) Elevated troponin Code(s): R74.8 - ABNORMAL LEVELS OF OTHER SERUM ENZYMES (12) Acute diarrhea Code(s): R19.7 - DIARRHEA, UNSPECIFIED plan patient received abx will continue ceftriaxone for now incentive camacho cardio to see the patient rest as per the team
--- NOTE | 2018-04-17 13:07 | ECHO ---
Name: DIONNA, JULIENNE Exam:Adult Echocardiogram Study Date: 04/17/2018 11:00 AM Age: 88 yrs Reason For Study: BNP Elevated Height: 67 in Weight: 132 lb BSA: 1.7 m2 MMode/2D Measurements & Calculations IVSd: 0.86 cm Ao root diam: 2.3 cm LVIDd: 3.9 cm ACS: 1.8 cm LVIDs: 3.5 cm LVPWd: 1.4 cm EDV(Teich): 66.4 ml LVOT diam: 2.0 cm ESV(Teich): 52.5 ml Doppler Measurements & Calculations TV V2 max: 150.9 cm/sec Med Peak E' Carlin: 5.5 cm/sec TV max P.1 mmHg Left Ventricle Left ventricular systolic function is severely reduced. Preserved wall motion at the base, severe hyp okinesis of remaining segments. The transmitral spectral Doppler flow pattern is suggestive of impaired LV rel axation. Right Ventricle The right ventricle is grossly normal size. The right ventricular systolic function is grossly normal . Atria Normal left and right atrial size and function. Mitral Valve The mitral valve is normal in structure and function. There is no mitral valve stenosis. There is mil d mitral regurgitation. Tricuspid Valve The tricuspid valve is not well visualized, but is grossly normal. There is mild tricuspid regurgitat ion. Aortic Valve There is mild aortic sclerosis.;. No hemodynamically significant valvular aortic stenosis. No aortic regurgitation is present. Pulmonic Valve The pulmonic valve is not well seen, but is grossly normal. There is no pulmonic valvular stenosis. Great Vessels The aortic root is normal size. Pericardium/Pleura There is no pericardial effusion. Interpretation Summary Left ventricular systolic function is severely reduced. Preserved wall motion at the base, severe hypokinesis of remaining segments. The transmitral spectral Doppler flow pattern is suggestive of impaired LV relaxation. There is mild mitral regurgitation. There is mild tricuspid regurgitation. There is mild aortic sclerosis.; There is no pericardial effusion. MD Mathur *Sixto 04/17/2018 01:07 PM
--- NOTE | 2018-04-17 14:30 | CON.PULM ---
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 Of note, pt was admitted two weeks ago on 04/01 and remained in-p for 5days due to COPD Excacerbation, treated with IV antibotics and steroids.Pt was discharged home on prednisone 40mg and remained stable on this dose until three days ago when his dose was reduced to 15mg daily. At this point he has been experiencing progressive dyspnea and reduced ability to complete ADLs. He denies sick contacts post hospital discharge, nor recent travel. Denies fever/chills/nausea/vomiting/chest pain. Patient has a psych hx and was hospitalized twice for depression and delusion. We have been asked to evaluate abnormal cxr. Patient has lost 40 lbs in two years. No h/o hemoptysis. 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 Cardio/Vascular: Yes: HTN Pulmonary: Yes: COPD, O2 Dependent, Other (Emphysema) Gastrointestinal: No: Ascites Hepatobiliary: No: Cirrhosis Renal/: Yes: Renal Inusuff Heme/Onc: No: Anemia Psych: Yes: Anxiety, Depression Musculoskeletal: Yes: Osteoarthritis - Alcohol/Substance Use Hx Alcohol Use: No History of Substance Use: reports: None - Smoking History Smoking history: Former smoker Have you smoked in the past 12 months: No If you are a former smoker, when did you quit?: 50 YEARS AGO - Social History ADL: Independent History of Recent Travel: No Home Medications - Allergies Allergies/Adverse Reactions: Allergies Allergy/AdvReac Type Severity Reaction Status Date / Time No Known Allergies Allergy Verified 04/16/18 17:36 - Home Medications Home Medications: Ambulatory Orders Budesonide/Formeterol Fumarate [SYMBICORT 160/4.5mcg -] 2 inh PO BID 02/24/17 Lisinopril 5 mg PO BID 02/25/17 Metoprolol Tartrate [Lopressor -] 25 mg PO BID 02/25/17 Montelukast Na [Singulair -] 10 mg PO HS 02/25/17 Multivitamin [Poly-Vitamin] 1 each PO DAILY 04/28/17 Albuterol 0.083% Nebulizer Magi [Ventolin 0.083%] 1 neb NEB TID 04/01/18 Dextran 70/Hypromellose [Artificial Tears] 1 each OP BID 04/01/18 Omeprazole 20 mg PO BID 04/01/18 Prednisone 15 mg PO DAILY 04/01/18 Family Disease History - Family Disease History Family Disease History: Other: Mother ( (77) [place]), Brother ( (60 ) CVA), Sister ( (60) breast cancer) Review of Systems - Review of Systems Constitutional: reports: Lethargy, Loss of Appetite. denies: Fever Eyes: denies: Blind Spots HENT: denies: Difficult Swallowing Neck: denies: Decreased ROM Cardiovascular: denies: Chest Pain Respiratory: reports: Cough, Exercise Intolerance, SOB, SOB on Exertion, Wheezing. denies: Hemoptysis Gastrointestinal: denies: Abdominal Pain Genitourinary: reports: No Symptoms Breasts: reports: No Symptoms Reported Musculoskeletal: reports: No Symptoms Integumentary: reports: No Symptoms Physical Exam Vital Sings: Vital Signs Temperature 97.6 F 04/17/18 09:50 Pulse Rate 71 04/17/18 09:50 Respiratory Rate 18 04/17/18 09:50 Blood Pressure 118/70 04/17/18 09:50 O2 Sat by Pulse Oximetry (%) 98 04/17/18 00:30 Constitutional: Yes: Calm Eyes: Yes: EOM Intact HENT: Yes: Normocephalic Neck: Yes: Trachea Midline Cardiovascular: Yes: Regular Rate and Rhythm Respiratory: Yes: Diminished Gastrointestinal: Yes: Normal Bowel Sounds Edema: No Integumentary: Yes: WNL Neurological: Yes: Alert Labs: CBC, BMP 04/17/18 07:00 04/17/18 07:00 rest of labs pending Imaging - Results Chest X-ray: Report Reviewed, Image Reviewed Cat Scan: Image Reviewed EKG: Report Reviewed (as seen in attending note) Problem List - Problems (1) Pneumonia with cavity of lung Code(s): J18.9 - PNEUMONIA, UNSPECIFIED ORGANISM; J98.4 - OTHER DISORDERS OF LUNG (2) COPD exacerbation Code(s): J44.1 - CHRONIC OBSTRUCTIVE PULMONARY DISEASE W (ACUTE) EXACERBATION (3) Depression Code(s): F32.9 - MAJOR DEPRESSIVE DISORDER, SINGLE EPISODE, UNSPECIFIED Qualifiers: Depression Type: major depressive disorder Major depression recurrence: unspecified whether recurrent Active/Remission status: currently active Major depression episode severity: mild Qualified Code(s): F32.0 - Major depressive disorder, single episode, mild (4) HTN (hypertension) Code(s): I10 - ESSENTIAL (PRIMARY) HYPERTENSION (5) Acute diastolic (congestive) heart failure Code(s): I50.31 - ACUTE DIASTOLIC (CONGESTIVE) HEART FAILURE (6) Acute hypoxemic respiratory failure Code(s): J96.01 - ACUTE RESPIRATORY FAILURE WITH HYPOXIA (7) Elevated troponin Code(s): R74.8 - ABNORMAL LEVELS OF OTHER SERUM ENZYMES Assessment/Plan LARGE RIGHT PARA TRACHEAL HYPODENSE MASS WITH CALCIUM NOTED LIKELY THYROID IN ORIGIN LARGE RIGHT UPPER LOBE/APICAL DENSITY WITH IRREGULAR BORDERS AND MULTIPLE CAVITARY AREAS COPD ELEVATED TROPONINS/SEVERE HYPOKINETIC LEFT VENTRICLE DEPRESSIVE DISORDER FORMER HEAVY SMOKER/SUBSTANTIAL WEIGHT LOSS WILL NEED TO R/O LUNG NEOPLASM GIVEN ABOVE WOUD FIRST NEED TO R/O ACS NEEDS CARDIAC CONSULT/CYCLE TROPS/EKG O2 SUPPLEMENTATION/COLLECT SPUTUMS FOR CULTURE/FUNGAL/CYTOLOGY/AFB CEA LEVEL ORDERED DIAGNOSTIC LUNG PROCEDURE TO BE DETERMINED ONCE CARDIAC IS STABLE (FOB VS NEEDLE ) WILL FOLLOW Brittani VIDALES MD
[2018-04-17] MEDS ORDERED: PT OWN MED DRAWER 7, Y5N ONE ×2 (15:28→20:34)
[2018-04-17] MEDS: ASPIRIN COATED 81 MG TABLET.EC PO SCH (18:20)
[2018-04-17] MEDS: SERTRALINE HCL 50 MG TABLET (FP) PO SCH (18:30)
--- NOTE | 2018-04-17 19:18 | EKG ---
Test Reason : Blood Pressure : / mmHG Vent. Rate : 083 BPM Atrial Rate : 083 BPM P-R Int : 206 ms QRS Dur : 106 ms QT Int : 368 ms P-R-T Axes : 076 -69 084 degrees QTc Int : 432 ms POOR DATA QUALITY, INTERPRETATION MAY BE ADVERSELY AFFECTED NORMAL SINUS RHYTHM WITH SINUS ARRHYTHMIA INCOMPLETE RIGHT BUNDLE BRANCH BLOCK LEFT ANTERIOR FASCICULAR BLOCK ANTEROSEPTAL INFARCT , AGE UNDETERMINED ABNORMAL ECG WHEN COMPARED WITH ECG OF 01-APR-2018 16:17, LEFT ANTERIOR FASCICULAR BLOCK IS NOW PRESENT INCOMPLETE RIGHT BUNDLE BRANCH BLOCK IS NOW PRESENT ANTEROSEPTAL INFARCT IS NOW PRESENT Confirmed by PRASHANT MERLOS, KAYLI ([id number]) on 04/17/2018 7:18:35 PM Referred By: Confirmed By:KAYLI CERDA MD
[2018-04-17] MEDS ORDERED: cefTRIAXone SODIUM 1 GM VIAL ONE (20:35)
[2018-04-17] MEDS: CEFTRIAXONE 1 GM in DEXTROSE 5%-WATER - 50 ML IVPB SCH (20:43)
[2018-04-17] MEDS: MIRTAZAPINE 30 MG TABLET (FP) PO SCH ×2 (20:43→21:02)
[2018-04-17] MEDS: MONTELUKAST NA 10 MG TABLET PO SCH ×2 (20:44→21:02)
[2018-04-17] MEDS: ATORVASTATIN CA 20 MG TABLET (FP) PO SCH ×2 (20:44→21:01)
[2018-04-17] MEDS: DEXTROSE 5%-0.45% SALINE 1,000 ML IV SCH (22:00)
[2018-04-17] MEDS: ZOLPIDEM TARTRATE 5 MG TABLET PO PRN (22:04)
[2018-04-18] MEDS: CARBIDOPA/LEVODOPA 25/100 TABLET (FP) PO SCH ×3 (05:56→21:11)
[2018-04-18] MEDS: HEPARIN NA (PORCINE) 5,000 UNITS/ML 1ML VIAL SQ SCH ×3 (05:56→21:10)
[2018-04-18] MEDS: ALBUTEROL SO4 0.083% IH SOL 2.5 MG/3 ML VIAL.NEB. NEB SCH ×3 (07:30→20:19)
[2018-04-18] MEDS ORDERED: cefTRIAXone SODIUM 1 GM VIAL ONE (09:06)
[2018-04-18] MEDS ORDERED: PT OWN MED DRAWER 7, Y5N ONE (09:06)
[2018-04-18] MEDS: FUROSEMIDE 20 MG TABLET (FP) PO SCH (09:10)
[2018-04-18] MEDS: ASPIRIN COATED 81 MG TABLET.EC PO SCH (09:10)
[2018-04-18] MEDS: PANTOPRAZOLE 20 MG TABLET (FP) PO SCH ×2 (09:11→21:12)
[2018-04-18] MEDS: LISINOPRIL 5 MG TABLET (FP) PO SCH ×2 (09:11→21:11)
[2018-04-18] MEDS: MULTIVITAMINS (DAILY MVI) TABLET (FP) PO SCH (09:12)
[2018-04-18] MEDS: SERTRALINE HCL 50 MG TABLET (FP) PO SCH (09:13)
[2018-04-18] MEDS: metoPROLOL SUCCINATE 25 MG TAB.SR.24H (FP) PO SCH (09:13)
[2018-04-18] MEDS: CEFTRIAXONE 1 GM in DEXTROSE 5%-WATER - 50 ML IVPB SCH (09:13)
[2018-04-18] MEDS: BUDESONIDE/FORMETEROL FUMARATE 160/4.5 mcg INHALER IH SCH ×2 (09:14→21:14)
[2018-04-18] MEDS: methylPREDNISolone NA SUCC 40 MG/1 ML VIAL IVPUSH SCH ×2 (09:14→21:14)
[2018-04-18] MEDS: ARTIFICIAL TEARS (POLYVINYL ALCOHOL) OPTH DROPS OU SCH ×2 (09:15→21:11)
[2018-04-18] MEDS ORDERED: POTASSIUM CHLORIDE TABS 10 MEQ TABLET.ER (FP) PO SCH (10:00)
--- NOTE | 2018-04-18 10:20 | PN ---
Progress Note (short form) - Note Progress Note: PULMONARY VSS/AFEBRILE DOES NOT APPEAR ACUTELY ILL ANICTERIC DIMINISHED B/L BS S1S2 BS= NO EDEMA LABS/MEDS/NOTES/IMAGES REVIEWED LARGE RIGHT PARA TRACHEAL HYPODENSE MASS WITH CALCIUM NOTED LIKELY THYROID IN ORIGIN LARGE RIGHT UPPER LOBE/APICAL DENSITY WITH IRREGULAR BORDERS AND MULTIPLE CAVITARY AREAS COPD ELEVATED TROPONINS/SEVERE HYPOKINETIC LEFT VENTRICLE DEPRESSIVE DISORDER FORMER HEAVY SMOKER/SUBSTANTIAL WEIGHT LOSS WILL NEED TO R/O LUNG NEOPLASM GIVEN ABOVE WOUD FIRST NEED TO R/O ACS ANTIBIOTICS HAVE BEEN ORDERED NEEDS CARDIAC CONSULT/CYCLE TROPS/EKG O2 SUPPLEMENTATION/COLLECT SPUTUMS FOR CULTURE/FUNGAL/CYTOLOGY/AFB CEA /CRP/ESR/LEVEL ORDERED DIAGNOSTIC LUNG PROCEDURE IF PATIENT CAN NOT PRODUCE SPUTUM R FLASH MERLOS Problem List - Problems (1) Pneumonia with cavity of lung Code(s): J18.9 - PNEUMONIA, UNSPECIFIED ORGANISM; J98.4 - OTHER DISORDERS OF LUNG (2) COPD exacerbation Code(s): J44.1 - CHRONIC OBSTRUCTIVE PULMONARY DISEASE W (ACUTE) EXACERBATION (3) Depression Code(s): F32.9 - MAJOR DEPRESSIVE DISORDER, SINGLE EPISODE, UNSPECIFIED Qualifiers: Depression Type: major depressive disorder Major depression recurrence: unspecified whether recurrent Active/Remission status: currently active Major depression episode severity: mild Qualified Code(s): F32.0 - Major depressive disorder, single episode, mild (4) HTN (hypertension) Code(s): I10 - ESSENTIAL (PRIMARY) HYPERTENSION (5) Acute diastolic (congestive) heart failure Code(s): I50.31 - ACUTE DIASTOLIC (CONGESTIVE) HEART FAILURE (6) Acute hypoxemic respiratory failure Code(s): J96.01 - ACUTE RESPIRATORY FAILURE WITH HYPOXIA (7) Elevated troponin Code(s): R74.8 - ABNORMAL LEVELS OF OTHER SERUM ENZYMES
--- NOTE | 2018-04-18 12:46 | CON.CARD ---
Cardiology Consult (text) - Consultation Consultation Note: cc: sob hpi: 88 m hx htn, copd, hld, ckd here with sob. Recent admit for copd, went home but sxs persisted so came back to ER, admitted for copd. No cp palps dizzy loc pnd orthopnea le edema. Pt denies hx hrt dz. pmh: per hpi psh: nc social: ex tob fam: no premature cad ros: per hpi; no nvd vision changes, gib hematuria dysuria muscle pain meds: Home Medications Medication Instructions Recorded Budesonide/Formeterol Fumarate 2 inh PO BID 02/24/17 [SYMBICORT 160/4.5mcg -] Lisinopril 5 mg PO BID 02/25/17 Metoprolol Tartrate [Lopressor -] 25 mg PO BID 02/25/17 Montelukast Na [Singulair -] 10 mg PO HS 02/25/17 Multivitamin [Poly-Vitamin] 1 each PO DAILY 04/28/17 Albuterol 0.083% Nebulizer Magi 1 neb NEB TID 04/01/18 [Ventolin 0.083%] Dextran 70/Hypromellose 1 each OP BID 04/01/18 [Artificial Tears] Omeprazole 20 mg PO BID 04/01/18 Prednisone 15 mg PO DAILY 04/01/18 pe: Vital Signs Period Temp Pulse Resp BP Sys/[place] Pulse Ox Last 24 Hr 97.6 F-98.1 F 54-75 20-20 95-148/52-87 97 nad no jvd rrr s1s2 no mrg bl wheeze, nl eff aaox3 no le e/c/c abd nt nd pos bs no jaundice diaphoresis pos dp pt no carotid bruits Laboratory Last Values WBC 5.2 K/mm3 (4.0-10.0) 04/17/18 07:00 RBC 4.81 M/mm3 (4.00-5.60) 04/17/18 07:00 Hgb 14.6 GM/dL (11.7-16.9) 04/17/18 07:00 Hct 44.0 % (35.4-49) 04/17/18 07:00 MCV 91.6 fl (80-96) 04/17/18 07:00 MCH 30.3 pg (25.7-33.7) 04/17/18 07:00 MCHC 33.1 g/dl (32.0-35.9) 04/17/18 07:00 RDW 14.4 % (11.9-15.9) 04/17/18 07:00 Plt Count 197 K/MM3 (134-434) 04/17/18 07:00 MPV 8.6 fl (7.5-11.1) 04/17/18 07:00 Absolute Neuts (auto) 6.4 K/mm3 (1.5-8.0) 04/16/18 15:45 Neutrophils % 83.5 % (42.8-82.8) H 04/16/18 15:45 Lymphocytes % 8.1 % (8-40) D 04/16/18 15:45 Monocytes % 8.0 % (3.8-10.2) 04/16/18 15:45 Eosinophils % 0.1 % (0-4.5) D 04/16/18 15:45 Basophils % 0.3 % (0-2.0) 04/16/18 15:45 Nucleated RBC % 0 % (0-0) 04/16/18 15:45 PT with INR 12.20 SEC (9.7-13.0) 04/17/18 07:00 INR 1.03 (0.83-1.09) 04/17/18 07:00 PTT (Actin FS) 24.7 SECONDS (25.2-36.5) L 04/17/18 07:00 VBG pH 7.37 (7.32-7.42) 04/16/18 15:47 POC VBG pCO2 56.1 mmHg (38-52) H 04/16/18 15:47 POC VBG pO2 27.0 mmHg (28-48) L 04/16/18 15:47 Mixed VBG HCO3 31.4 meq/L (19-25) H 04/16/18 15:47 Sodium 137 mmol/L (136-145) 04/17/18 07:00 Potassium 5.1 mmol/L (3.5-5.1) 04/17/18 07:00 Chloride 100 mmol/L (98-107) 04/17/18 07:00 Carbon Dioxide 28 mmol/L (21-32) 04/17/18 07:00 Anion Gap 9 MMOL/L (8-16) 04/17/18 07:00 BUN 40 mg/dL (7-18) H 04/17/18 07:00 Creatinine 1.5 mg/dL (0.55-1.3) H 04/17/18 07:00 Creat Clearance w eGFR 44.37 (>60) 04/17/18 07:00 Random Glucose 148 mg/dL (74-106) H 04/17/18 07:00 Calcium 8.4 mg/dL (8.5-10.1) L 04/17/18 07:00 Phosphorus 4.6 mg/dL (2.5-4.9) 04/17/18 07:00 Magnesium 2.3 mg/dL (1.8-2.4) 04/17/18 07:00 Total Bilirubin 0.9 mg/dL (0.2-1) 04/17/18 07:00 AST 34 U/L (15-37) 04/17/18 07:00 ALT 33 U/L (13-61) 04/17/18 07:00 Alkaline Phosphatase 72 U/L (45-117) 04/17/18 07:00 Troponin I 0.99 ng/ml (0.00-0.05) H* 04/17/18 20:00 C-Reactive Protein < 0.3 MG/DL (0.00-0.3) 04/18/18 11:00 B-Natriuretic Peptide 7140.0 pg/ml (5-450) H 04/17/18 07:00 Total Protein 5.8 g/dl (6.4-8.2) L 04/17/18 07:00 Albumin 3.2 g/dl (3.4-5.0) L 04/17/18 07:00 echo 03/2018: sev dec lvef (new from 06/2017), global hk except for base, nl rv, mild mr, mild tr ecg: sr, nl intervals, irbbb ct chest: r pna, lung mass, paratracheal mass a/p: 88 m hx htn, copd, hld, ckd here with sob. sob, copd: -cont abx, steroids per pulm -also with lung mass/paratracheal mass htn: -cont current meds hld: -cont statin ckd: -cr at baseline syst chf: -newly reduced lvef now since echo earlier this year -pt has no signs of volume overload -cont toprol, lisinopril, lasix po for chf regimen -will need to evaluate for ischemic etiology with nuclear stress test after acute copd improves pos trops: -trops mildly elevated, trending down now. Had mild trop elevation 06/2017 that was attributed to demand ischemia at that time per charts. Current trop elevation may again represent demand ischemia in the setting of acute issues. When acute copd improves will send for nuclear stress test for risk stratification. Cont asa, statin, bb.
--- NOTE | 2018-04-18 13:03 | PN ---
Progress Note, Physician History of Present Illness: patient stable feeling much better breathing has improved - Current Medication List Current Medications: Active Medications Acetaminophen (Tylenol -) 650 mg PO Q6H PRN PRN Reason: FEVER Albuterol Sulfate (Ventolin 0.083% Nebulizer Soln -) 1 amp NEB RTID [facility] Last Admin: 04/18/18 07:30 Dose: 1 amp Artificial Tears (Artificial Tears) 1 drop OU BID [facility] Last Admin: 04/18/18 09:15 Dose: Not Given Aspirin (Ecotrin -) 81 mg PO DAILY [facility] Last Admin: 04/18/18 09:10 Dose: 81 mg Atorvastatin Calcium (Lipitor -) 20 mg PO HS [facility] Last Admin: 04/17/18 21:01 Dose: Not Given Budesonide/Formoterol Fumarate (Symbicort 160/4.5mcg -) 2 puff IH BID [facility] Last Admin: 04/18/18 09:14 Dose: 2 puff Carbidopa/Levodopa (Sinemet 25/100 -) 1 each PO TID [facility] Last Admin: 04/18/18 05:56 Dose: 1 each Docusate Sodium (Colace -) 100 mg PO Q8H PRN PRN Reason: CONSTIPATION Furosemide (Lasix -) 20 mg PO DAILY [facility] Last Admin: 04/18/18 09:10 Dose: 20 mg Heparin Sodium (Porcine) (Heparin -) 5,000 unit SQ TID [facility] Last Admin: 04/18/18 05:56 Dose: 5,000 unit Ceftriaxone Sodium 1 gm/ (Dextrose) 50 mls @ 100 mls/hr IVPB DAILY [facility] Last Admin: 04/18/18 09:13 Dose: 100 mls/hr Dextrose/Sodium Chloride (D5-1/2ns -) 1,000 mls @ 40 mls/hr IV ASDIR [facility] Last Admin: 04/17/18 22:00 Dose: 40 mls/hr Lisinopril (Prinivil) 5 mg PO BID [facility] Last Admin: 04/18/18 09:11 Dose: 5 mg Methylprednisolone Sodium Succinate (Solu-Medrol -) 40 mg IVPUSH BID [facility] Last Admin: 04/18/18 09:14 Dose: 40 mg Metoprolol Succinate (Toprol Xl -) 25 mg PO DAILY [facility] Last Admin: 04/18/18 09:13 Dose: 25 mg Mirtazapine (Remeron -) 30 mg PO HS [facility] Last Admin: 04/17/18 21:02 Dose: Not Given Montelukast Sodium (Singulair -) 10 mg PO HS [facility] Last Admin: 04/17/18 21:02 Dose: Not Given Multivitamins/Minerals/Vitamin C (Tab-A-Vit -) 1 tab PO DAILY [facility] Last Admin: 04/18/18 09:12 Dose: 1 tab Pantoprazole Sodium (Protonix -) 20 mg PO BID [facility] Last Admin: 04/18/18 09:11 Dose: 20 mg Senna (Senna -) 2 tab PO HS PRN PRN Reason: CONSTIPATION Sertraline HCl (Zoloft -) 50 mg PO DAILY [facility] Last Admin: 04/18/18 09:13 Dose: 50 mg Zolpidem Tartrate (Ambien -) 5 mg PO HS PRN PRN Reason: INSOMNIA Last Admin: 04/17/18 22:04 Dose: 5 mg - Objective Vital Signs: Vital Signs Temperature 97.6 F 04/18/18 08:40 Pulse Rate 75 04/18/18 08:40 Respiratory Rate 20 04/18/18 08:40 Blood Pressure 148/87 04/18/18 08:40 O2 Sat by Pulse Oximetry (%) 97 04/17/18 20:55 Constitutional: Yes: No Distress, Calm Cardiovascular: Yes: Regular Rate and Rhythm Respiratory: Yes: Regular, On Nasal O2, Poor Air Entry, Rhonchi Gastrointestinal: Yes: Normal Bowel Sounds, Soft Musculoskeletal: Yes: WNL Extremities: Yes: WNL Neurological: Yes: Alert, Oriented Psychiatric: Yes: Alert, Oriented Labs: CBC, BMP 04/17/18 07:00 04/17/18 07:00 INR, PTT INR 1.03 (0.83-1.09) 04/17/18 07:00 Assessment/Plan Problem List - Problems (1) Hypercapnic respiratory failure, chronic Code(s): J96.12 - CHRONIC RESPIRATORY FAILURE WITH HYPERCAPNIA (2) COPD exacerbation Code(s): J44.1 - CHRONIC OBSTRUCTIVE PULMONARY DISEASE W (ACUTE) EXACERBATION (3) Lactic acid acidosis Code(s): E87.2 - ACIDOSIS (4) Major depress dis, severe Code(s): F32.2 - MAJOR DEPRESSV DISORD, SINGLE EPSD, SEV W/O PSYCH FEATURES (5) Pneumonia Code(s): J18.9 - PNEUMONIA, UNSPECIFIED ORGANISM Qualifiers: Pneumonia type: due to unspecified organism (6) Non-ST elevation [place] (NSTEMI) Code(s): I21.4 - NON-ST ELEVATION (NSTEMI) MYOCARDIAL INFARCTION (7) CHF (congestive heart failure), NYHA class II Code(s): I50.9 - HEART FAILURE, UNSPECIFIED (8) Anxiety Code(s): F41.9 - ANXIETY DISORDER, UNSPECIFIED (9) Bronchiectasis Code(s): J47.9 - BRONCHIECTASIS, UNCOMPLICATED (10) Demand ischemia Code(s): I24.8 - OTHER FORMS OF ACUTE ISCHEMIC HEART DISEASE (11) Elevated troponin Code(s): R74.8 - ABNORMAL LEVELS OF OTHER SERUM ENZYMES (12) Acute diarrhea Code(s): R19.7 - DIARRHEA, UNSPECIFIED plan continue current mgmt as per cardio incentive camacho resp support
[2018-04-18] MEDS ORDERED: MIRTAZAPINE 15 MG TABLET (FP) ONE (20:36)
[2018-04-18] MEDS: MIRTAZAPINE 30 MG TABLET (FP) PO SCH (21:11)
[2018-04-18] MEDS: ATORVASTATIN CA 20 MG TABLET (FP) PO SCH (21:12)
[2018-04-18] MEDS: MONTELUKAST NA 10 MG TABLET PO SCH (21:12)
[2018-04-18] MEDS: ZOLPIDEM TARTRATE 5 MG TABLET PO PRN (21:23)
[2018-04-18] MEDS: DEXTROSE 5%-0.45% SALINE 1,000 ML IV SCH (23:37)
--- NOTE | 2018-04-18 23:56 | PN ---
Progress Note, Physician Chief Complaint: SOB better No loose stools Elevated Troponin Trending Now LV Hypokinesis Cardiav Isma noted - Current Medication List Current Medications: Active Medications Acetaminophen (Tylenol -) 650 mg PO Q6H PRN PRN Reason: FEVER Albuterol Sulfate (Ventolin 0.083% Nebulizer Soln -) 1 amp NEB RTID [facility] Last Admin: 04/18/18 20:19 Dose: 1 amp Artificial Tears (Artificial Tears) 1 drop OU BID [facility] Last Admin: 04/18/18 21:11 Dose: Not Given Aspirin (Ecotrin -) 81 mg PO DAILY [facility] Last Admin: 04/18/18 09:10 Dose: 81 mg Atorvastatin Calcium (Lipitor -) 20 mg PO HS [facility] Last Admin: 04/18/18 21:12 Dose: 20 mg Budesonide/Formoterol Fumarate (Symbicort 160/4.5mcg -) 2 puff IH BID [facility] Last Admin: 04/18/18 21:14 Dose: 2 puff Carbidopa/Levodopa (Sinemet 25/100 -) 1 each PO TID [facility] Last Admin: 04/18/18 21:11 Dose: 1 each Docusate Sodium (Colace -) 100 mg PO Q8H PRN PRN Reason: CONSTIPATION Furosemide (Lasix -) 20 mg PO DAILY [facility] Last Admin: 04/18/18 09:10 Dose: 20 mg Heparin Sodium (Porcine) (Heparin -) 5,000 unit SQ TID [facility] Last Admin: 04/18/18 21:10 Dose: 5,000 unit Ceftriaxone Sodium 1 gm/ (Dextrose) 50 mls @ 100 mls/hr IVPB DAILY [facility] Last Admin: 04/18/18 09:13 Dose: 100 mls/hr Dextrose/Sodium Chloride (D5-1/2ns -) 1,000 mls @ 40 mls/hr IV ASDIR [facility] Last Admin: 04/18/18 23:37 Dose: 40 mls/hr Lisinopril (Prinivil) 5 mg PO BID [facility] Last Admin: 04/18/18 21:11 Dose: 5 mg Methylprednisolone Sodium Succinate (Solu-Medrol -) 40 mg IVPUSH BID [facility] Last Admin: 04/18/18 21:14 Dose: 40 mg Metoprolol Succinate (Toprol Xl -) 25 mg PO DAILY [facility] Last Admin: 04/18/18 09:13 Dose: 25 mg Mirtazapine (Remeron -) 30 mg PO HS [facility] Last Admin: 04/18/18 21:11 Dose: 30 mg Montelukast Sodium (Singulair -) 10 mg PO HS [facility] Last Admin: 04/18/18 21:12 Dose: 10 mg Multivitamins/Minerals/Vitamin C (Tab-A-Vit -) 1 tab PO DAILY [facility] Last Admin: 04/18/18 09:12 Dose: 1 tab Pantoprazole Sodium (Protonix -) 20 mg PO BID [facility] Last Admin: 04/18/18 21:12 Dose: 20 mg Senna (Senna -) 2 tab PO HS PRN PRN Reason: CONSTIPATION Sertraline HCl (Zoloft -) 50 mg PO DAILY [facility] Last Admin: 04/18/18 09:13 Dose: 50 mg Zolpidem Tartrate (Ambien -) 5 mg PO HS PRN PRN Reason: INSOMNIA Last Admin: 04/18/18 21:23 Dose: 5 mg - Objective Vital Signs: Vital Signs Temperature 97.6 F 04/18/18 18:00 Pulse Rate 105 H 04/18/18 18:00 Respiratory Rate 18 04/18/18 18:00 Blood Pressure 138/69 04/18/18 18:00 O2 Sat by Pulse Oximetry (%) 97 04/17/18 20:55 Constitutional: Yes: Anxious Eyes: Yes: Conjunctiva Clear, EOM Intact HENT: Yes: Atraumatic, Normocephalic Neck: Yes: Supple, Trachea Midline Cardiovascular: Yes: Regular Rate and Rhythm, S1, S2 Respiratory: Yes: Regular, CTA Bilaterally Gastrointestinal: Yes: Normal Bowel Sounds, Soft Musculoskeletal: Yes: Joint Stiffness Edema: No Peripheral Pulses WNL: Yes Neurological: Yes: Alert, Oriented, Cran Nerves II-XII Intact Labs: CBC, BMP 04/17/18 07:00 04/17/18 07:00 INR, PTT INR 1.03 (0.83-1.09) 04/17/18 07:00 Problem List - Problems (1) Hypercapnic respiratory failure, chronic Code(s): J96.12 - CHRONIC RESPIRATORY FAILURE WITH HYPERCAPNIA (2) COPD exacerbation Code(s): J44.1 - CHRONIC OBSTRUCTIVE PULMONARY DISEASE W (ACUTE) EXACERBATION (3) Lactic acid acidosis Code(s): E87.2 - ACIDOSIS (4) Major depress dis, severe Code(s): F32.2 - MAJOR DEPRESSV DISORD, SINGLE EPSD, SEV W/O PSYCH FEATURES (5) Pneumonia Code(s): J18.9 - PNEUMONIA, UNSPECIFIED ORGANISM Qualifiers: Pneumonia type: due to unspecified organism (6) Non-ST elevation [place] (NSTEMI) Code(s): I21.4 - NON-ST ELEVATION (NSTEMI) MYOCARDIAL INFARCTION (7) CHF (congestive heart failure), NYHA class II Code(s): I50.9 - HEART FAILURE, UNSPECIFIED (8) Anxiety Code(s): F41.9 - ANXIETY DISORDER, UNSPECIFIED (9) Bronchiectasis Code(s): J47.9 - BRONCHIECTASIS, UNCOMPLICATED (10) Demand ischemia Code(s): I24.8 - OTHER FORMS OF ACUTE ISCHEMIC HEART DISEASE (11) Elevated troponin Code(s): R74.8 - ABNORMAL LEVELS OF OTHER SERUM ENZYMES (12) Acute diarrhea Code(s): R19.7 - DIARRHEA, UNSPECIFIED Assessment/Plan Pt Troponins suggestive of Non St elevation [place] Cut Down Metoprolol to 25 c Once daily Mild Diuressis with lasix 20 daily /Kcl Mild Hydration with D5 / ND 40 ml /Hr for Low BP we will Discuss with cardiology regarding Hypokinesia of LV Pt may need Cardiac cath after Pneumonia resolves/Cavity sputum culture Quatiferon gold
[2018-04-19] MEDS: HEPARIN NA (PORCINE) 5,000 UNITS/ML 1ML VIAL SQ SCH ×3 (05:42→21:28)
[2018-04-19] MEDS: CARBIDOPA/LEVODOPA 25/100 TABLET (FP) PO SCH ×3 (05:43→21:29)
[2018-04-19] MEDS: ALBUTEROL SO4 0.083% IH SOL 2.5 MG/3 ML VIAL.NEB. NEB SCH ×3 (08:00→20:16)
[2018-04-19 08:29] LABS: BASO % 0.1 % (0-2.0); HEMATOCRIT 45.3 % (35.4-49); HEMOGLOBIN 14.8 GM/dL (11.7-16.9); LYMPH % 7.4 % (8-40); MCHC 32.6 g/dl (32.0-35.9); MEAN CELL VOLUME 91.9 fl (80-96); MEAN PLT VOLUME 8.3 fl (7.5-11.1); MONO % 4.6 % (3.8-10.2); NEUT % 87.9 % (42.8-82.8); PLATELET COUNT 206 K/MM3 (134-434); RBC 4.92 M/mm3 (4.00-5.60); RDW 14.4 % (11.9-15.9)
[2018-04-19] MEDS ORDERED: PT OWN MED DRAWER 7, Y5N ONE (09:01)
[2018-04-19] MEDS ORDERED: cefTRIAXone SODIUM 1 GM VIAL ONE (09:01)
[2018-04-19] MEDS ORDERED: DEXTROSE 5%-WATER - 50 ML IVPB ONE (09:02)
[2018-04-19] MEDS: ASPIRIN COATED 81 MG TABLET.EC PO SCH (09:05)
[2018-04-19] MEDS: MULTIVITAMINS (DAILY MVI) TABLET (FP) PO SCH (09:06)
[2018-04-19] MEDS: LISINOPRIL 5 MG TABLET (FP) PO SCH ×2 (09:06→21:29)
[2018-04-19] MEDS: metoPROLOL SUCCINATE 25 MG TAB.SR.24H (FP) PO SCH (09:06)
[2018-04-19] MEDS: FUROSEMIDE 20 MG TABLET (FP) PO SCH (09:06)
[2018-04-19] MEDS: PANTOPRAZOLE 20 MG TABLET (FP) PO SCH ×2 (09:06→21:29)
[2018-04-19] MEDS: CEFTRIAXONE 1 GM in DEXTROSE 5%-WATER - 50 ML IVPB SCH (09:09)
[2018-04-19] MEDS: SERTRALINE HCL 50 MG TABLET (FP) PO SCH (09:09)
[2018-04-19] MEDS: BUDESONIDE/FORMETEROL FUMARATE 160/4.5 mcg INHALER IH SCH ×2 (09:10→21:31)
[2018-04-19] MEDS: methylPREDNISolone NA SUCC 40 MG/1 ML VIAL IVPUSH SCH ×2 (09:10→21:30)
[2018-04-19] MEDS: ARTIFICIAL TEARS (POLYVINYL ALCOHOL) OPTH DROPS OU SCH ×2 (09:11→21:28)
[2018-04-19 09:12] LABS: ANION GAP 11 MMOL/L (8-16); BLOOD UREA NITROGEN 50 mg/dL (7-18); CALCIUM 8.8 mg/dL (8.5-10.1); CHLORIDE 99 mmol/L (98-107); CO2 26 mmol/L (21-32); CREATININE 1.6 mg/dL (0.55-1.3); GLUCOSE,RANDOM 120 mg/dL (74-106); POTASSIUM 4.7 mmol/L (3.5-5.1); SODIUM 136 mmol/L (136-145)
--- NOTE | 2018-04-19 11:10 | PN ---
Progress Note (short form) - Note Progress Note: s: still sob/cough, no cp palps dizzy o: Vital Signs Period Temp Pulse Resp BP Sys/[place] Pulse Ox Last 24 Hr 97.6 F-98.1 F 54-105 18-20 130-138/68-74 nad no jvd rrr s1s2 no mrg bl wheeze, nl eff aaox3 no le e/c/c abd nt nd pos bs no jaundice diaphoresis Current Medications Generic Name Dose Route Start Last Admin Trade Name Freq PRN Reason Stop Dose Admin Acetaminophen 650 mg 04/16/18 19:39 Tylenol - PO Q6H PRN FEVER Albuterol Sulfate 1 amp 04/16/18 20:00 04/19/18 08:00 Ventolin 0.083% Nebulizer Soln - NEB 1 amp RTID [facility] Administration Artificial Tears 1 drop 04/16/18 22:00 04/19/18 09:11 Artificial Tears OU Not Given BID [facility] Aspirin 81 mg 04/17/18 16:45 04/19/18 09:05 Ecotrin - PO 81 mg DAILY [facility] Administration Atorvastatin Calcium 20 mg 04/17/18 22:00 04/18/18 21:12 Lipitor - PO 20 mg HS [facility] Administration Budesonide/Formoterol Fumarate 2 puff 04/16/18 22:00 04/19/18 09:10 Symbicort 160/4.5mcg - IH 2 puff BID [facility] Administration Carbidopa/Levodopa 1 each 04/16/18 22:00 04/19/18 05:43 Sinemet 25/100 - PO 1 each TID [facility] Administration Docusate Sodium 100 mg 04/16/18 23:01 Colace - PO Q8H PRN CONSTIPATION Furosemide 20 mg 04/18/18 10:00 04/19/18 09:06 Lasix - PO 20 mg DAILY [facility] Administration Heparin Sodium (Porcine) 5,000 unit 04/17/18 06:00 04/19/18 05:42 Heparin - SQ 5,000 unit TID [facility] Administration Ceftriaxone Sodium 1 gm/ 50 mls @ 100 mls/hr 04/17/18 20:45 04/19/18 09:09 Dextrose IVPB 100 mls/hr DAILY [facility] Administration Dextrose/Sodium Chloride 1,000 mls @ 40 mls/hr 04/17/18 22:00 04/18/18 23:37 D5-1/2ns - IV 40 mls/hr ASDIR [facility] Administration Lisinopril 5 mg 04/16/18 22:00 04/19/18 09:06 Prinivil PO 5 mg BID [facility] Administration Methylprednisolone Sodium Succinate 40 mg 04/16/18 22:00 04/19/18 09:10 Solu-Medrol - IVPUSH 40 mg BID [facility] Administration Metoprolol Succinate 25 mg 04/18/18 10:00 04/19/18 09:06 Toprol Xl - PO 25 mg DAILY [facility] Administration Mirtazapine 30 mg 04/16/18 22:00 04/18/18 21:11 Remeron - PO 30 mg HS [facility] Administration Montelukast Sodium 10 mg 04/16/18 22:00 04/18/18 21:12 Singulair - PO 10 mg HS [facility] Administration Multivitamins/Minerals/Vitamin C 1 tab 04/17/18 10:00 04/19/18 09:06 Tab-A-Vit - PO 1 tab DAILY [facility] Administration Pantoprazole Sodium 20 mg 04/16/18 22:00 04/19/18 09:06 Protonix - PO 20 mg BID [facility] Administration Senna 2 tab 04/16/18 23:01 Senna - PO HS PRN CONSTIPATION Sertraline HCl 50 mg 04/17/18 10:00 04/19/18 09:09 Zoloft - PO 50 mg DAILY [facility] Administration Zolpidem Tartrate 5 mg 04/16/18 22:00 04/18/18 21:23 Ambien - PO 5 mg HS PRN Administration INSOMNIA CBC, BMP 04/19/18 07:00 04/19/18 07:00 echo 03/2018: sev dec lvef (new from 06/2017), global hk except for base, nl rv, mild mr, mild tr ecg: sr, nl intervals, irbbb ct chest: r pna, lung mass, paratracheal mass a/p: 88 m hx htn, copd, hld, ckd here with sob. sob, copd: -cont abx, steroids per pulm -also with lung mass/paratracheal mass htn: -cont current meds hld: -cont statin ckd: -cr at baseline syst chf: -newly reduced lvef now since echo earlier this year -pt has no signs of volume overload -cont toprol, lisinopril, lasix po for chf regimen -will need to evaluate for ischemic etiology with nuclear stress test after acute copd improves pos trops: -trops mildly elevated, trending down now. Had mild trop elevation 06/2017 that was attributed to demand ischemia at that time per charts. Current trop elevation may again represent demand ischemia in the setting of acute issues. When acute copd improves will send for nuclear stress test for risk stratification. Cardiac cath would be beneficial as well but given his lung mass and need for biopsy to r/o cancer it would not be ideal timing for cath and possible pci that would require uninterrupted asa/plavix which would prevent w/u and tx of possible malignancy. Cont asa, statin, bb.
--- NOTE | 2018-04-19 11:42 | PN ---
Progress Note, Physician Chief Complaint: SOB better No loose stools Elevated Troponin Trending down Now spoke with Dr Eugenio mendoza cardiac evaluation History of Present Illness: Pt is having low EF need cardiac eval spoke with ED about Lt UL Bronchiectatic lesion Pt need Bronchoscopy for eval will speak with Pulmonary - Current Medication List Current Medications: Active Medications Acetaminophen (Tylenol -) 650 mg PO Q6H PRN PRN Reason: FEVER Albuterol Sulfate (Ventolin 0.083% Nebulizer Soln -) 1 amp NEB RTID [facility] Last Admin: 04/19/18 08:00 Dose: 1 amp Artificial Tears (Artificial Tears) 1 drop OU BID [facility] Last Admin: 04/19/18 09:11 Dose: Not Given Aspirin (Ecotrin -) 81 mg PO DAILY [facility] Last Admin: 04/19/18 09:05 Dose: 81 mg Atorvastatin Calcium (Lipitor -) 20 mg PO HS [facility] Last Admin: 04/18/18 21:12 Dose: 20 mg Budesonide/Formoterol Fumarate (Symbicort 160/4.5mcg -) 2 puff IH BID [facility] Last Admin: 04/19/18 09:10 Dose: 2 puff Carbidopa/Levodopa (Sinemet 25/100 -) 1 each PO TID [facility] Last Admin: 04/19/18 05:43 Dose: 1 each Docusate Sodium (Colace -) 100 mg PO Q8H PRN PRN Reason: CONSTIPATION Furosemide (Lasix -) 20 mg PO DAILY [facility] Last Admin: 04/19/18 09:06 Dose: 20 mg Heparin Sodium (Porcine) (Heparin -) 5,000 unit SQ TID [facility] Last Admin: 04/19/18 05:42 Dose: 5,000 unit Ceftriaxone Sodium 1 gm/ (Dextrose) 50 mls @ 100 mls/hr IVPB DAILY [facility] Last Admin: 04/19/18 09:09 Dose: 100 mls/hr Dextrose/Sodium Chloride (D5-1/2ns -) 1,000 mls @ 40 mls/hr IV ASDIR [facility] Last Admin: 04/18/18 23:37 Dose: 40 mls/hr Lisinopril (Prinivil) 5 mg PO BID [facility] Last Admin: 04/19/18 09:06 Dose: 5 mg Methylprednisolone Sodium Succinate (Solu-Medrol -) 40 mg IVPUSH BID [facility] Last Admin: 04/19/18 09:10 Dose: 40 mg Metoprolol Succinate (Toprol Xl -) 25 mg PO DAILY [facility] Last Admin: 04/19/18 09:06 Dose: 25 mg Mirtazapine (Remeron -) 30 mg PO HS [facility] Last Admin: 04/18/18 21:11 Dose: 30 mg Montelukast Sodium (Singulair -) 10 mg PO HS [facility] Last Admin: 04/18/18 21:12 Dose: 10 mg Multivitamins/Minerals/Vitamin C (Tab-A-Vit -) 1 tab PO DAILY [facility] Last Admin: 04/19/18 09:06 Dose: 1 tab Pantoprazole Sodium (Protonix -) 20 mg PO BID [facility] Last Admin: 04/19/18 09:06 Dose: 20 mg Senna (Senna -) 2 tab PO HS PRN PRN Reason: CONSTIPATION Sertraline HCl (Zoloft -) 50 mg PO DAILY [facility] Last Admin: 04/19/18 09:09 Dose: 50 mg Zolpidem Tartrate (Ambien -) 5 mg PO HS PRN PRN Reason: INSOMNIA Last Admin: 04/18/18 21:23 Dose: 5 mg - Objective Vital Signs: Vital Signs Temperature 97.5 F L 04/19/18 08:10 Pulse Rate 68 04/19/18 08:10 Respiratory Rate 20 04/19/18 08:10 Blood Pressure 119/73 04/19/18 08:10 O2 Sat by Pulse Oximetry (%) 97 04/17/18 20:55 Constitutional: Yes: Anxious Eyes: Yes: EOM Intact HENT: Yes: Atraumatic, Normocephalic Neck: Yes: Supple, Trachea Midline Cardiovascular: Yes: Regular Rate and Rhythm, S1, S2 Respiratory: Yes: Regular, CTA Bilaterally Gastrointestinal: Yes: Normal Bowel Sounds, Soft Musculoskeletal: Yes: Joint Stiffness Edema: No Peripheral Pulses WNL: Yes Neurological: Yes: Alert, Cran Nerves II-XII Intact Labs: CBC, BMP 04/19/18 07:00 04/19/18 07:00 INR, PTT INR 1.03 (0.83-1.09) 04/17/18 07:00 Problem List - Problems (1) Hypercapnic respiratory failure, chronic Code(s): J96.12 - CHRONIC RESPIRATORY FAILURE WITH HYPERCAPNIA (2) COPD exacerbation Code(s): J44.1 - CHRONIC OBSTRUCTIVE PULMONARY DISEASE W (ACUTE) EXACERBATION (3) Lactic acid acidosis Code(s): E87.2 - ACIDOSIS (4) Major depress dis, severe Code(s): F32.2 - MAJOR DEPRESSV DISORD, SINGLE EPSD, SEV W/O PSYCH FEATURES (5) Pneumonia Code(s): J18.9 - PNEUMONIA, UNSPECIFIED ORGANISM Qualifiers: Pneumonia type: due to unspecified organism (6) Non-ST elevation [place] (NSTEMI) Code(s): I21.4 - NON-ST ELEVATION (NSTEMI) MYOCARDIAL INFARCTION (7) CHF (congestive heart failure), NYHA class II Code(s): I50.9 - HEART FAILURE, UNSPECIFIED (8) Anxiety Code(s): F41.9 - ANXIETY DISORDER, UNSPECIFIED (9) Bronchiectasis Code(s): J47.9 - BRONCHIECTASIS, UNCOMPLICATED (10) Demand ischemia Code(s): I24.8 - OTHER FORMS OF ACUTE ISCHEMIC HEART DISEASE (11) Elevated troponin Code(s): R74.8 - ABNORMAL LEVELS OF OTHER SERUM ENZYMES (12) Acute diarrhea Code(s): R19.7 - DIARRHEA, UNSPECIFIED Assessment/Plan Pt Troponins suggestive of Non St elevation ID Cut Down Metoprolol to 25 c Once daily Mild Diuressis with lasix 20 daily /Kcl Mild Hydration with D5 1/2 ND 40 ml /Hr for Low BP we will Discuss with cardiology regarding Hypokinesia of LV Pt may need Cardiac cath after Pneumonia resolves/Cavity sputum culture Quatifsharon thacker discussed with ID Pt may need to do bronchoscope to R/O Lt Ul lesion
--- NOTE | 2018-04-19 13:47 | PN ---
Progress Note (short form) - Note Progress Note: PULMONARY VSS/AFEBRILE DOES NOT APPEAR ACUTELY ILL ANICTERIC DIMINISHED B/L BS S1S2 BS= NO EDEMA LABS/MEDS/NOTES/IMAGES REVIEWED CARDIO NOTE REVIEWED ESR/CRP/CEA LEVELS ARE NL LARGE RIGHT PARA TRACHEAL HYPODENSE MASS WITH CALCIUM NOTED LIKELY THYROID IN ORIGIN LARGE RIGHT UPPER LOBE/APICAL DENSITY WITH IRREGULAR BORDERS AND MULTIPLE CAVITARY AREAS COPD ELEVATED TROPONINS/SEVERE HYPOKINETIC LEFT VENTRICLE DEPRESSIVE DISORDER FORMER HEAVY SMOKER/SUBSTANTIAL WEIGHT LOSS WILL NEED TO R/O LUNG NEOPLASM GIVEN ABOVE AGREE THAT ELEVATED TROPS ARE LIKELY DEMAND IN ORIGIN ANTIBIOTICS HAVE BEEN ORDERED NEEDS THORACIC SURG OPINION/MAY NEED BRONCHO IF CLEARED BY CARDIO O2 SUPPLEMENTATION/COLLECT SPUTUMS FOR CULTURE/FUNGAL/CYTOLOGY/AFB R FLASH MERLOS Problem List - Problems (1) Pneumonia with cavity of lung Code(s): J18.9 - PNEUMONIA, UNSPECIFIED ORGANISM; J98.4 - OTHER DISORDERS OF LUNG (2) COPD exacerbation Code(s): J44.1 - CHRONIC OBSTRUCTIVE PULMONARY DISEASE W (ACUTE) EXACERBATION (3) Depression Code(s): F32.9 - MAJOR DEPRESSIVE DISORDER, SINGLE EPISODE, UNSPECIFIED Qualifiers: Depression Type: major depressive disorder Major depression recurrence: unspecified whether recurrent Active/Remission status: currently active Major depression episode severity: mild Qualified Code(s): F32.0 - Major depressive disorder, single episode, mild (4) HTN (hypertension) Code(s): I10 - ESSENTIAL (PRIMARY) HYPERTENSION (5) Acute diastolic (congestive) heart failure Code(s): I50.31 - ACUTE DIASTOLIC (CONGESTIVE) HEART FAILURE (6) Acute hypoxemic respiratory failure Code(s): J96.01 - ACUTE RESPIRATORY FAILURE WITH HYPOXIA (7) Elevated troponin Code(s): R74.8 - ABNORMAL LEVELS OF OTHER SERUM ENZYMES
--- NOTE | 2018-04-19 14:20 | PN ---
Progress Note, Physician History of Present Illness: patient says he is still not able to cough out what he thinks he has breathing has improved cr has increased - Current Medication List Current Medications: Active Medications Acetaminophen (Tylenol -) 650 mg PO Q6H PRN PRN Reason: FEVER Albuterol Sulfate (Ventolin 0.083% Nebulizer Soln -) 1 amp NEB RTID [facility] Last Admin: 04/19/18 08:00 Dose: 1 amp Artificial Tears (Artificial Tears) 1 drop OU BID [facility] Last Admin: 04/19/18 09:11 Dose: Not Given Aspirin (Ecotrin -) 81 mg PO DAILY [facility] Last Admin: 04/19/18 09:05 Dose: 81 mg Atorvastatin Calcium (Lipitor -) 20 mg PO HS [facility] Last Admin: 04/18/18 21:12 Dose: 20 mg Budesonide/Formoterol Fumarate (Symbicort 160/4.5mcg -) 2 puff IH BID [facility] Last Admin: 04/19/18 09:10 Dose: 2 puff Carbidopa/Levodopa (Sinemet 25/100 -) 1 each PO TID [facility] Last Admin: 04/19/18 13:46 Dose: 1 each Docusate Sodium (Colace -) 100 mg PO Q8H PRN PRN Reason: CONSTIPATION Furosemide (Lasix -) 20 mg PO DAILY [facility] Last Admin: 04/19/18 09:06 Dose: 20 mg Heparin Sodium (Porcine) (Heparin -) 5,000 unit SQ TID [facility] Last Admin: 04/19/18 13:46 Dose: 5,000 unit Ceftriaxone Sodium 1 gm/ (Dextrose) 50 mls @ 100 mls/hr IVPB DAILY [facility] Last Admin: 04/19/18 09:09 Dose: 100 mls/hr Dextrose/Sodium Chloride (D5-1/2ns -) 1,000 mls @ 40 mls/hr IV ASDIR [facility] Last Admin: 04/18/18 23:37 Dose: 40 mls/hr Lisinopril (Prinivil) 5 mg PO BID [facility] Last Admin: 04/19/18 09:06 Dose: 5 mg Methylprednisolone Sodium Succinate (Solu-Medrol -) 40 mg IVPUSH BID [facility] Last Admin: 04/19/18 09:10 Dose: 40 mg Metoprolol Succinate (Toprol Xl -) 25 mg PO DAILY [facility] Last Admin: 04/19/18 09:06 Dose: 25 mg Mirtazapine (Remeron -) 30 mg PO HS [facility] Last Admin: 04/18/18 21:11 Dose: 30 mg Montelukast Sodium (Singulair -) 10 mg PO HS [facility] Last Admin: 04/18/18 21:12 Dose: 10 mg Multivitamins/Minerals/Vitamin C (Tab-A-Vit -) 1 tab PO DAILY [facility] Last Admin: 04/19/18 09:06 Dose: 1 tab Pantoprazole Sodium (Protonix -) 20 mg PO BID [facility] Last Admin: 04/19/18 09:06 Dose: 20 mg Senna (Senna -) 2 tab PO HS PRN PRN Reason: CONSTIPATION Sertraline HCl (Zoloft -) 50 mg PO DAILY [facility] Last Admin: 04/19/18 09:09 Dose: 50 mg Zolpidem Tartrate (Ambien -) 5 mg PO HS PRN PRN Reason: INSOMNIA Last Admin: 04/18/18 21:23 Dose: 5 mg - Objective Vital Signs: Vital Signs Temperature 97.5 F L 04/19/18 08:10 Pulse Rate 68 04/19/18 08:10 Respiratory Rate 20 04/19/18 08:10 Blood Pressure 119/73 04/19/18 08:10 O2 Sat by Pulse Oximetry (%) 97 04/19/18 09:00 Constitutional: Yes: No Distress, Calm Cardiovascular: Yes: S1, S2 Respiratory: Yes: Regular, Poor Air Entry, Rhonchi Gastrointestinal: Yes: Normal Bowel Sounds, Soft Musculoskeletal: Yes: WNL Extremities: Yes: WNL Neurological: Yes: Alert, Oriented Psychiatric: Yes: Alert, Oriented Labs: CBC, BMP 04/19/18 07:00 04/19/18 07:00 INR, PTT INR 1.03 (0.83-1.09) 04/17/18 07:00 - ....Imaging Cat Scan: Report Reviewed, Image Reviewed Assessment/Plan Problem List - Problems (1) Hypercapnic respiratory failure, chronic Code(s): J96.12 - CHRONIC RESPIRATORY FAILURE WITH HYPERCAPNIA (2) COPD exacerbation Code(s): J44.1 - CHRONIC OBSTRUCTIVE PULMONARY DISEASE W (ACUTE) EXACERBATION (3) Lactic acid acidosis Code(s): E87.2 - ACIDOSIS (4) Major depress dis, severe Code(s): F32.2 - MAJOR DEPRESSV DISORD, SINGLE EPSD, SEV W/O PSYCH FEATURES (5) Pneumonia Code(s): J18.9 - PNEUMONIA, UNSPECIFIED ORGANISM Qualifiers: Pneumonia type: due to unspecified organism (6) Non-ST elevation [place] (NSTEMI) Code(s): I21.4 - NON-ST ELEVATION (NSTEMI) MYOCARDIAL INFARCTION (7) CHF (congestive heart failure), NYHA class II Code(s): I50.9 - HEART FAILURE, UNSPECIFIED (8) Anxiety Code(s): F41.9 - ANXIETY DISORDER, UNSPECIFIED (9) Bronchiectasis Code(s): J47.9 - BRONCHIECTASIS, UNCOMPLICATED (10) Demand ischemia Code(s): I24.8 - OTHER FORMS OF ACUTE ISCHEMIC HEART DISEASE (11) Elevated troponin Code(s): R74.8 - ABNORMAL LEVELS OF OTHER SERUM ENZYMES (12) Acute diarrhea Code(s): R19.7 - DIARRHEA, UNSPECIFIED plan after reviewing the ct scan i am going to change him to cefipime will need follow up ct scan' rest as per the team
--- NOTE | 2018-04-19 15:22 | PN ---
Progress Note (short form) - Note Progress Note: Thoracic Surgery: Full consult to follow. Cavitary lesion: infection vs. mass in patient with COPD. Needs PFTs, comparison to old imaging, possible PET scan and possible biopsy. Workup should be done as outpatient.
[2018-04-19] MEDS ORDERED: CEFEPIME HCL 1 GM VIAL (RESTRICTED TO ID) ONE (17:27)
[2018-04-19] MEDS ORDERED: DEXTROSE 5%-WATER 100 ML IVPB ONE (17:28)
[2018-04-19] MEDS: CEFEPIME 1 GM in DEXTROSE 5%-WATER 100 ML IVPB SCH (17:38)
[2018-04-19] MEDS: DEXTROSE 5%-0.45% SALINE 1,000 ML IV SCH (18:52)
[2018-04-19] MEDS ORDERED: MIRTAZAPINE 15 MG TABLET (FP) ONE (20:43)
[2018-04-19] MEDS: MONTELUKAST NA 10 MG TABLET PO SCH (21:29)
[2018-04-19] MEDS: MIRTAZAPINE 30 MG TABLET (FP) PO SCH (21:29)
[2018-04-19] MEDS: ATORVASTATIN CA 20 MG TABLET (FP) PO SCH (21:29)
[2018-04-19] MEDS: ZOLPIDEM TARTRATE 5 MG TABLET PO PRN (22:10)
[2018-04-20] MEDS: CARBIDOPA/LEVODOPA 25/100 TABLET (FP) PO SCH ×3 (05:48→22:00)
[2018-04-20] MEDS: HEPARIN NA (PORCINE) 5,000 UNITS/ML 1ML VIAL SQ SCH ×3 (05:48→22:00)
[2018-04-20 07:24] LABS: BASO % 0.2 % (0-2.0); HEMATOCRIT 47.8 % (35.4-49); HEMOGLOBIN 15.4 GM/dL (11.7-16.9); LYMPH % 8.8 % (8-40); MCH 29.8 pg (25.7-33.7); MCHC 32.3 g/dl (32.0-35.9); MEAN CELL VOLUME 92.3 fl (80-96); MEAN PLT VOLUME 8.7 fl (7.5-11.1); MONO % 4.4 % (3.8-10.2); NEUT % 86.6 % (42.8-82.8); PLATELET COUNT 263 K/MM3 (134-434); RBC 5.18 M/mm3 (4.00-5.60); RDW 14.9 % (11.9-15.9); WHITE BLOOD COUNT 10.9 K/mm3 (4.0-10.0)
[2018-04-20] MEDS: ALBUTEROL SO4 0.083% IH SOL 2.5 MG/3 ML VIAL.NEB. NEB SCH ×4 (07:40→20:18)
[2018-04-20 07:47] LABS: ANION GAP 9 MMOL/L (8-16); BLOOD UREA NITROGEN 51 mg/dL (7-18); CALCIUM 8.9 mg/dL (8.5-10.1); CHLORIDE 97 mmol/L (98-107); CO2 30 mmol/L (21-32); CREATININE 1.7 mg/dL (0.55-1.3); GLUCOSE,RANDOM 126 mg/dL (74-106); POTASSIUM 4.3 mmol/L (3.5-5.1); SODIUM 136 mmol/L (136-145)
[2018-04-20] MEDS ORDERED: REGADENOSON 0.4 MG/5 ML PRE-FILLED SYRINGE IVPUSH ONE ×2 (09:00→09:42)
[2018-04-20] MEDS: ARTIFICIAL TEARS (POLYVINYL ALCOHOL) OPTH DROPS OU SCH ×2 (11:56→22:01)
[2018-04-20] MEDS: LISINOPRIL 5 MG TABLET (FP) PO SCH ×2 (11:57→22:00)
[2018-04-20] MEDS: ASPIRIN COATED 81 MG TABLET.EC PO SCH (11:57)
[2018-04-20] MEDS: FUROSEMIDE 20 MG TABLET (FP) PO SCH (11:57)
[2018-04-20] MEDS: SERTRALINE HCL 50 MG TABLET (FP) PO SCH (11:57)
[2018-04-20] MEDS: PANTOPRAZOLE 20 MG TABLET (FP) PO SCH ×2 (11:57→22:00)
[2018-04-20] MEDS: MULTIVITAMINS (DAILY MVI) TABLET (FP) PO SCH (11:57)
[2018-04-20] MEDS: metoPROLOL SUCCINATE 25 MG TAB.SR.24H (FP) PO SCH (11:57)
[2018-04-20] MEDS: methylPREDNISolone NA SUCC 40 MG/1 ML VIAL IVPUSH SCH ×2 (11:58→22:00)
[2018-04-20] MEDS: BUDESONIDE/FORMETEROL FUMARATE 160/4.5 mcg INHALER IH SCH ×2 (11:58→22:03)
--- NOTE | 2018-04-20 12:01 | CONSULT ---
Consult Consult Specialty:: Thoracic Surgery Referred by:: Pulmonary/Medicine Reason for Consultation:: RUL lesion - History of Present Illness Chief Complaint: Dyspnea,cough History of Present Illness: 88M former smoker, >100pack-years, with COPD on home O2, recent admission for COPD exacerbation, major weight loss over last year, represents for weakness, cough, dypsnea, and found to have right lung lesion (inflammatory versus mass). Not present on 2016 scan. No hemoptysis. 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: Yes: Dementia, Parkinson's Cardio/Vascular: Yes: HTN Pulmonary: Yes: COPD, O2 Dependent, Other (Emphysema) Gastrointestinal: No: Ascites Hepatobiliary: No: Cirrhosis Renal/: Yes: Renal Inusuff Psych: Yes: Anxiety, Depression Musculoskeletal: Yes: Osteoarthritis - Alcohol/Substance Use Hx Alcohol Use: No History of Substance Use: reports: None - Smoking History Smoking history: Former smoker Have you smoked in the past 12 months: No If you are a former smoker, when did you quit?: 50 YEARS AGO - Social History ADL: Independent History of Recent Travel: No Home Medications - Allergies Allergies/Adverse Reactions: Allergies Allergy/AdvReac Type Severity Reaction Status Date / Time No Known Allergies Allergy Verified 04/16/18 17:36 - Home Medications Home Medications: Ambulatory Orders Budesonide/Formeterol Fumarate [SYMBICORT 160/4.5mcg -] 2 inh PO BID 02/24/17 Lisinopril 5 mg PO BID 02/25/17 Metoprolol Tartrate [Lopressor -] 25 mg PO BID 02/25/17 Montelukast Na [Singulair -] 10 mg PO HS 02/25/17 Multivitamin [Poly-Vitamin] 1 each PO DAILY 04/28/17 Albuterol 0.083% Nebulizer Magi [Ventolin 0.083%] 1 neb NEB TID 04/01/18 Dextran 70/Hypromellose [Artificial Tears] 1 each OP BID 04/01/18 Omeprazole 20 mg PO BID 04/01/18 Prednisone 15 mg PO DAILY 04/01/18 Family Disease History - Family Disease History Family Disease History: Other: Mother ( (77) [place]), Brother ( (60 ) CVA), Sister ( (60) breast cancer) Review of Systems - Review of Systems Constitutional: reports: Unintentional Wgt. Loss (50lbs 1 year) Respiratory: reports: SOB Physical Exam Vital Signs: Vital Signs Temperature 97.4 F L 04/20/18 06:24 Pulse Rate 58 L 04/20/18 06:24 Respiratory Rate 18 04/20/18 06:24 Blood Pressure 142/70 04/20/18 06:24 O2 Sat by Pulse Oximetry (%) 97 04/19/18 21:00 Constitutional: Yes: Cachectic Neck: Yes: Supple Respiratory: Yes: Diminished Extremities: Yes: WNL Labs: CBC, BMP 04/20/18 06:40 04/20/18 06:40 Imaging - Results Cat Scan: Image Reviewed Problem List - Problems (1) CHF (congestive heart failure), NYHA class II Code(s): I50.9 - HEART FAILURE, UNSPECIFIED (2) COPD exacerbation Code(s): J44.1 - CHRONIC OBSTRUCTIVE PULMONARY DISEASE W (ACUTE) EXACERBATION (3) Depression Code(s): F32.9 - MAJOR DEPRESSIVE DISORDER, SINGLE EPISODE, UNSPECIFIED Qualifiers: Depression Type: major depressive disorder Major depression recurrence: unspecified whether recurrent Active/Remission status: currently active Major depression episode severity: mild Qualified Code(s): F32.0 - Major depressive disorder, single episode, mild (4) Bronchiectasis Code(s): J47.9 - BRONCHIECTASIS, UNCOMPLICATED (5) COPD (chronic obstructive pulmonary disease) Code(s): J44.9 - CHRONIC OBSTRUCTIVE PULMONARY DISEASE, UNSPECIFIED (6) Parkinson disease Code(s): G20 - PARKINSON'S DISEASE Assessment/Plan 88M with severe COPD with new finding on imaging during COPD exacerbation. Likely more acute than growing cancer. -Would not recommend bx at this time--rather wait to recover from COPD exacerbation; -Repeat imaging CT scan in 6 weeks. -Will follow.
[2018-04-20] MEDS: DEXTROSE 5%-0.45% SALINE 1,000 ML IV SCH (14:19)
--- NOTE | 2018-04-20 14:32 | PN ---
Progress Note (short form) - Note Progress Note: PULMONARY VSS/AFEBRILE DOES NOT APPEAR ACUTELY ILL ANICTERIC DIMINISHED B/L BS S1S2 BS= NO EDEMA LABS/MEDS/NOTES/IMAGES REVIEWED CARDIO NOTE REVIEWED ESR/CRP/CEA LEVELS ARE NL LARGE RIGHT PARA TRACHEAL HYPODENSE MASS WITH CALCIUM NOTED LIKELY THYROID IN ORIGIN LARGE RIGHT UPPER LOBE/APICAL DENSITY WITH IRREGULAR BORDERS AND MULTIPLE CAVITARY AREAS COPD ELEVATED TROPONINS/SEVERE HYPOKINETIC LEFT VENTRICLE DEPRESSIVE DISORDER FORMER HEAVY SMOKER/SUBSTANTIAL WEIGHT LOSS ANTIBIOTICS o2/NEBS/CHECK CULTURES Brittani VIDALES MD Problem List - Problems (1) Pneumonia with cavity of lung Code(s): J18.9 - PNEUMONIA, UNSPECIFIED ORGANISM; J98.4 - OTHER DISORDERS OF LUNG (2) COPD exacerbation Code(s): J44.1 - CHRONIC OBSTRUCTIVE PULMONARY DISEASE W (ACUTE) EXACERBATION (3) Depression Code(s): F32.9 - MAJOR DEPRESSIVE DISORDER, SINGLE EPISODE, UNSPECIFIED Qualifiers: Depression Type: major depressive disorder Major depression recurrence: unspecified whether recurrent Active/Remission status: currently active Major depression episode severity: mild Qualified Code(s): F32.0 - Major depressive disorder, single episode, mild (4) HTN (hypertension) Code(s): I10 - ESSENTIAL (PRIMARY) HYPERTENSION (5) Acute diastolic (congestive) heart failure Code(s): I50.31 - ACUTE DIASTOLIC (CONGESTIVE) HEART FAILURE (6) Acute hypoxemic respiratory failure Code(s): J96.01 - ACUTE RESPIRATORY FAILURE WITH HYPOXIA (7) Elevated troponin Code(s): R74.8 - ABNORMAL LEVELS OF OTHER SERUM ENZYMES
--- NOTE | 2018-04-20 15:31 | PN ---
Progress Note (short form) - Note Progress Note: s: still sob/cough but less. no cp palps dizzy o: Vital Signs Period Temp Pulse Resp BP Sys/[place] Pulse Ox Last 24 Hr 97.2 F-98.4 F 58-98 18-20 105-150/58-84 96-97 nad no jvd rrr s1s2 no mrg bl wheeze, nl eff aaox3 no le e/c/c abd nt nd pos bs no jaundice diaphoresis Current Medications Generic Name Dose Route Start Last Admin Trade Name Freq PRN Reason Stop Dose Admin Acetaminophen 650 mg 04/16/18 19:39 Tylenol - PO Q6H PRN FEVER Albuterol Sulfate 1 amp 04/19/18 20:00 04/20/18 07:40 Ventolin 0.083% Nebulizer Soln - NEB 1 amp RQID NADIA Administration Artificial Tears 1 drop 04/16/18 22:00 04/20/18 11:56 Artificial Tears OU Not Given BID NADIA Aspirin 81 mg 04/17/18 16:45 04/20/18 11:57 Ecotrin - PO 81 mg DAILY NADIA Administration Atorvastatin Calcium 20 mg 04/17/18 22:00 04/19/18 21:29 Lipitor - PO 20 mg HS NADIA Administration Budesonide/Formoterol Fumarate 2 puff 04/16/18 22:00 04/20/18 11:58 Symbicort 160/4.5mcg - IH 2 puff BID NADIA Administration Carbidopa/Levodopa 1 each 04/16/18 22:00 04/20/18 14:17 Sinemet 25/100 - PO 1 each TID NADIA Administration Docusate Sodium 100 mg 04/16/18 23:01 Colace - PO Q8H PRN CONSTIPATION Furosemide 20 mg 04/18/18 10:00 04/20/18 11:57 Lasix - PO 20 mg DAILY NADIA Administration Heparin Sodium (Porcine) 5,000 unit 04/17/18 06:00 04/20/18 14:17 Heparin - SQ 5,000 unit TID NADIA Administration Cefepime HCl 1 gm/ Dextrose 100 mls @ 200 mls/hr 04/19/18 18:00 04/19/18 17: 38 IVPB 200 mls/hr Q24H NADIA Administration Protocol Dextrose/Sodium Chloride 1,000 mls @ 75 mls/hr 04/19/18 18:30 04/20/18 14:19 D5-1/2ns - IV 75 mls/hr ASDIR NADIA Administration Lisinopril 5 mg 04/16/18 22:00 04/20/18 11:57 Prinivil PO 5 mg BID NADIA Administration Methylprednisolone Sodium Succinate 40 mg 04/16/18 22:00 04/20/18 11:58 Solu-Medrol - IVPUSH 40 mg BID NADIA Administration Metoprolol Succinate 25 mg 04/18/18 10:00 04/20/18 11:57 Toprol Xl - PO 25 mg DAILY NADIA Administration Mirtazapine 30 mg 04/16/18 22:00 04/19/18 21:29 Remeron - PO 30 mg HS NADIA Administration Montelukast Sodium 10 mg 04/16/18 22:00 04/19/18 21:29 Singulair - PO 10 mg HS NADIA Administration Multivitamins/Minerals/Vitamin C 1 tab 04/17/18 10:00 04/20/18 11:57 Tab-A-Vit - PO 1 tab DAILY NADIA Administration Pantoprazole Sodium 20 mg 04/16/18 22:00 04/20/18 11:57 Protonix - PO 20 mg BID NADIA Administration Senna 2 tab 04/16/18 23:01 Senna - PO HS PRN CONSTIPATION Sertraline HCl 50 mg 04/17/18 10:00 04/20/18 11:57 Zoloft - PO 50 mg DAILY NADIA Administration CBC, BMP 04/20/18 06:40 04/20/18 06:40 echo 03/2018: sev dec lvef (new from 06/2017), global hk except for base, nl rv, mild mr, mild tr ecg: sr, nl intervals, irbbb ct chest: r pna, lung mass, paratracheal mass mibi 03/2018: mild apical ischemia, nl lvef a/p: 88 m hx htn, copd, hld, ckd here with sob. sob, copd: -cont abx, steroids per pulm -also with lung mass/paratracheal mass vs infectious process htn: -cont current meds hld: -cont statin ckd: -cr at baseline syst chf: -newly reduced lvef now since echo earlier this year -pt has no signs of volume overload -cont toprol, lisinopril, lasix po for chf regimen -mibi here shows only mild apical ischemia, a low risk finding. would plan for cardiac cath after acute issues resolve, can be arranged as outpt. pos trops: -trops mildly elevated, trending down now. Had mild trop elevation 06/2017 that was attributed to demand ischemia at that time per charts. Current trop elevation may again represent demand ischemia in the setting of acute issues. -mibi here shows only mild apical ischemia, a low risk finding. would plan for cardiac cath after acute issues resolve, can be arranged as outpt. Cont asa, statin, bb.
--- NOTE | 2018-04-20 16:15 | PN ---
Progress Note, Physician Chief Complaint: SOB better No loose stools Elevated Troponin Trending down Now spoke with Dr Eugenio mendoza cardiac evaluation Pt had Normal Lexiscan History of Present Illness: Pt is having low EF need cardiac eval spoke with ED about Lt UL Bronchiectatic lesion Discussed with Pulmonary Dr Roberts today Pt Lt UL lesion no evidence of any malignacy - Current Medication List Current Medications: Active Medications Acetaminophen (Tylenol -) 650 mg PO Q6H PRN PRN Reason: FEVER Albuterol Sulfate (Ventolin 0.083% Nebulizer Soln -) 1 amp NEB RQID [facility] Last Admin: 04/20/18 15:37 Dose: 1 amp Artificial Tears (Artificial Tears) 1 drop OU BID [facility] Last Admin: 04/20/18 11:56 Dose: Not Given Aspirin (Ecotrin -) 81 mg PO DAILY [facility] Last Admin: 04/20/18 11:57 Dose: 81 mg Atorvastatin Calcium (Lipitor -) 20 mg PO HS [facility] Last Admin: 04/19/18 21:29 Dose: 20 mg Budesonide/Formoterol Fumarate (Symbicort 160/4.5mcg -) 2 puff IH BID [facility] Last Admin: 04/20/18 11:58 Dose: 2 puff Carbidopa/Levodopa (Sinemet 25/100 -) 1 each PO TID [facility] Last Admin: 04/20/18 14:17 Dose: 1 each Docusate Sodium (Colace -) 100 mg PO Q8H PRN PRN Reason: CONSTIPATION Furosemide (Lasix -) 20 mg PO DAILY [facility] Last Admin: 04/20/18 11:57 Dose: 20 mg Heparin Sodium (Porcine) (Heparin -) 5,000 unit SQ TID NADIA Last Admin: 04/20/18 14:17 Dose: 5,000 unit Cefepime HCl 1 gm/ Dextrose 100 mls @ 200 mls/hr IVPB Q24H NADIA; Protocol Last Admin: 04/19/18 17:38 Dose: 200 mls/hr Dextrose/Sodium Chloride (D5-1/2ns -) 1,000 mls @ 75 mls/hr IV ASDIR NADIA Last Admin: 04/20/18 14:19 Dose: 75 mls/hr Lisinopril (Prinivil) 5 mg PO BID [facility] Last Admin: 04/20/18 11:57 Dose: 5 mg Methylprednisolone Sodium Succinate (Solu-Medrol -) 40 mg IVPUSH BID [facility] Last Admin: 04/20/18 11:58 Dose: 40 mg Metoprolol Succinate (Toprol Xl -) 25 mg PO DAILY [facility] Last Admin: 04/20/18 11:57 Dose: 25 mg Mirtazapine (Remeron -) 30 mg PO HS [facility] Last Admin: 04/19/18 21:29 Dose: 30 mg Montelukast Sodium (Singulair -) 10 mg PO HS [facility] Last Admin: 04/19/18 21:29 Dose: 10 mg Multivitamins/Minerals/Vitamin C (Tab-A-Vit -) 1 tab PO DAILY [facility] Last Admin: 04/20/18 11:57 Dose: 1 tab Pantoprazole Sodium (Protonix -) 20 mg PO BID [facility] Last Admin: 04/20/18 11:57 Dose: 20 mg Senna (Senna -) 2 tab PO HS PRN PRN Reason: CONSTIPATION Sertraline HCl (Zoloft -) 50 mg PO DAILY [facility] Last Admin: 04/20/18 11:57 Dose: 50 mg - Objective Vital Signs: Vital Signs Temperature 98.4 F 04/20/18 14:15 Pulse Rate 98 H 04/20/18 14:15 Respiratory Rate 18 04/20/18 14:15 Blood Pressure 130/70 04/20/18 14:15 O2 Sat by Pulse Oximetry (%) 96 04/20/18 09:00 Constitutional: Yes: Anxious Eyes: Yes: Conjunctiva Clear, EOM Intact HENT: Yes: Atraumatic, Normocephalic Neck: Yes: Supple, Trachea Midline Cardiovascular: Yes: Regular Rate and Rhythm, S1, S2 Respiratory: Yes: Regular, CTA Bilaterally Gastrointestinal: Yes: Normal Bowel Sounds, Soft Musculoskeletal: Yes: Joint Stiffness Labs: CBC, BMP 04/20/18 06:40 04/20/18 06:40 INR, PTT INR 1.03 (0.83-1.09) 04/17/18 07:00 Problem List - Problems (1) Hypercapnic respiratory failure, chronic Code(s): J96.12 - CHRONIC RESPIRATORY FAILURE WITH HYPERCAPNIA (2) COPD exacerbation Code(s): J44.1 - CHRONIC OBSTRUCTIVE PULMONARY DISEASE W (ACUTE) EXACERBATION (3) Lactic acid acidosis Code(s): E87.2 - ACIDOSIS (4) Major depress dis, severe Code(s): F32.2 - MAJOR DEPRESSV DISORD, SINGLE EPSD, SEV W/O PSYCH FEATURES (5) Pneumonia Code(s): J18.9 - PNEUMONIA, UNSPECIFIED ORGANISM Qualifiers: Pneumonia type: due to unspecified organism (6) Non-ST elevation PA (NSTEMI) Code(s): I21.4 - NON-ST ELEVATION (NSTEMI) MYOCARDIAL INFARCTION (7) CHF (congestive heart failure), NYHA class II Code(s): I50.9 - HEART FAILURE, UNSPECIFIED (8) Anxiety Code(s): F41.9 - ANXIETY DISORDER, UNSPECIFIED (9) Bronchiectasis Code(s): J47.9 - BRONCHIECTASIS, UNCOMPLICATED (10) Demand ischemia Code(s): I24.8 - OTHER FORMS OF ACUTE ISCHEMIC HEART DISEASE (11) Elevated troponin Code(s): R74.8 - ABNORMAL LEVELS OF OTHER SERUM ENZYMES (12) Acute diarrhea Code(s): R19.7 - DIARRHEA, UNSPECIFIED Assessment/Plan Pt Troponins suggestive of Non St elevation PA Cut Down Metoprolol to 25 c Once daily Mild Diuressis with lasix 20 daily /Kcl Mild Hydration with D5 /2 ND 40 ml /Hr for Low BP we will Discuss with cardiology regarding Hypokinesia of LV Reviewed The CT with ID also and today Discussed with Pulmonary Pt Lt UL lesion not suggestive of malignacy ESR and CRP is WNL also
[2018-04-20] MEDS ORDERED: DEXTROSE 5%-WATER 100 ML IVPB ONE (17:11)
[2018-04-20] MEDS ORDERED: CEFEPIME HCL 1 GM VIAL (RESTRICTED TO ID) ONE (17:11)
--- NOTE | 2018-04-20 17:21 | PN ---
Progress Note, Physician History of Present Illness: improving breathing better no complaints - Current Medication List Current Medications: Active Medications Acetaminophen (Tylenol -) 650 mg PO Q6H PRN PRN Reason: FEVER Albuterol Sulfate (Ventolin 0.083% Nebulizer Soln -) 1 amp NEB RQID [facility] Last Admin: 04/20/18 15:37 Dose: 1 amp Artificial Tears (Artificial Tears) 1 drop OU BID [facility] Last Admin: 04/20/18 11:56 Dose: Not Given Aspirin (Ecotrin -) 81 mg PO DAILY [facility] Last Admin: 04/20/18 11:57 Dose: 81 mg Atorvastatin Calcium (Lipitor -) 20 mg PO HS [facility] Last Admin: 04/19/18 21:29 Dose: 20 mg Budesonide/Formoterol Fumarate (Symbicort 160/4.5mcg -) 2 puff IH BID [facility] Last Admin: 04/20/18 11:58 Dose: 2 puff Carbidopa/Levodopa (Sinemet 25/100 -) 1 each PO TID [facility] Last Admin: 04/20/18 14:17 Dose: 1 each Docusate Sodium (Colace -) 100 mg PO Q8H PRN PRN Reason: CONSTIPATION Furosemide (Lasix -) 20 mg PO DAILY [facility] Last Admin: 04/20/18 11:57 Dose: 20 mg Heparin Sodium (Porcine) (Heparin -) 5,000 unit SQ TID [facility] Last Admin: 04/20/18 14:17 Dose: 5,000 unit Cefepime HCl 1 gm/ Dextrose 100 mls @ 200 mls/hr IVPB Q24H [facility]; Protocol Last Admin: 04/19/18 17:38 Dose: 200 mls/hr Dextrose/Sodium Chloride (D5-1/2ns -) 1,000 mls @ 75 mls/hr IV ASDIR [facility] Last Admin: 04/20/18 14:19 Dose: 75 mls/hr Lisinopril (Prinivil) 5 mg PO BID [facility] Last Admin: 04/20/18 11:57 Dose: 5 mg Methylprednisolone Sodium Succinate (Solu-Medrol -) 40 mg IVPUSH BID [facility] Last Admin: 04/20/18 11:58 Dose: 40 mg Metoprolol Succinate (Toprol Xl -) 25 mg PO DAILY [facility] Last Admin: 04/20/18 11:57 Dose: 25 mg Mirtazapine (Remeron -) 30 mg PO HS [facility] Last Admin: 04/19/18 21:29 Dose: 30 mg Montelukast Sodium (Singulair -) 10 mg PO [facility] Last Admin: 04/19/18 21:29 Dose: 10 mg Multivitamins/Minerals/Vitamin C (Tab-A-Vit -) 1 tab PO DAILY [facility] Last Admin: 04/20/18 11:57 Dose: 1 tab Pantoprazole Sodium (Protonix -) 20 mg PO BID [facility] Last Admin: 04/20/18 11:57 Dose: 20 mg Senna (Senna -) 2 tab PO HS PRN PRN Reason: CONSTIPATION Sertraline HCl (Zoloft -) 50 mg PO DAILY [facility] Last Admin: 04/20/18 11:57 Dose: 50 mg - Objective Vital Signs: Vital Signs Temperature 98.4 F 04/20/18 14:15 Pulse Rate 98 H 04/20/18 14:15 Respiratory Rate 18 04/20/18 14:15 Blood Pressure 130/70 04/20/18 14:15 O2 Sat by Pulse Oximetry (%) 96 04/20/18 09:00 Constitutional: Yes: No Distress, Calm Cardiovascular: Yes: Regular Rate and Rhythm Respiratory: Yes: On Nasal O2, Poor Air Entry Gastrointestinal: Yes: Normal Bowel Sounds, Soft Musculoskeletal: Yes: WNL Extremities: Yes: WNL Neurological: Yes: Alert, Oriented Psychiatric: Yes: Alert, Oriented Labs: CBC, BMP 04/20/18 06:40 04/20/18 06:40 INR, PTT INR 1.03 (0.83-1.09) 04/17/18 07:00 Assessment/Plan Problem List - Problems (1) Hypercapnic respiratory failure, chronic Code(s): J96.12 - CHRONIC RESPIRATORY FAILURE WITH HYPERCAPNIA (2) COPD exacerbation Code(s): J44.1 - CHRONIC OBSTRUCTIVE PULMONARY DISEASE W (ACUTE) EXACERBATION (3) Lactic acid acidosis Code(s): E87.2 - ACIDOSIS (4) Major depress dis, severe Code(s): F32.2 - MAJOR DEPRESSV DISORD, SINGLE EPSD, SEV W/O PSYCH FEATURES (5) Pneumonia Code(s): J18.9 - PNEUMONIA, UNSPECIFIED ORGANISM Qualifiers: Pneumonia type: due to unspecified organism (6) Non-ST elevation NE (NSTEMI) Code(s): I21.4 - NON-ST ELEVATION (NSTEMI) MYOCARDIAL INFARCTION (7) CHF (congestive heart failure), NYHA class II Code(s): I50.9 - HEART FAILURE, UNSPECIFIED (8) Anxiety Code(s): F41.9 - ANXIETY DISORDER, UNSPECIFIED (9) Bronchiectasis Code(s): J47.9 - BRONCHIECTASIS, UNCOMPLICATED (10) Demand ischemia Code(s): I24.8 - OTHER FORMS OF ACUTE ISCHEMIC HEART DISEASE (11) Elevated troponin Code(s): R74.8 - ABNORMAL LEVELS OF OTHER SERUM ENZYMES (12) Acute diarrhea Code(s): R19.7 - DIARRHEA, UNSPECIFIED plan continue current abx patient improving incentive camacho rest as per the team
[2018-04-20] MEDS: CEFEPIME 1 GM in DEXTROSE 5%-WATER 100 ML IVPB SCH (17:27)
[2018-04-20] MEDS ORDERED: MIRTAZAPINE 15 MG TABLET (FP) ONE (21:50)
[2018-04-20] MEDS: ATORVASTATIN CA 20 MG TABLET (FP) PO SCH (22:00)
[2018-04-20] MEDS: MONTELUKAST NA 10 MG TABLET PO SCH (22:00)
[2018-04-20] MEDS: MIRTAZAPINE 30 MG TABLET (FP) PO SCH (22:01)
[2018-04-21] MEDS: HEPARIN NA (PORCINE) 5,000 UNITS/ML 1ML VIAL SQ SCH ×3 (06:08→21:38)
[2018-04-21] MEDS: CARBIDOPA/LEVODOPA 25/100 TABLET (FP) PO SCH ×3 (06:08→21:30)
[2018-04-21] MEDS: ALBUTEROL SO4 0.083% IH SOL 2.5 MG/3 ML VIAL.NEB. NEB SCH ×4 (07:25→20:05)
[2018-04-21] MEDS: LISINOPRIL 5 MG TABLET (FP) PO SCH ×2 (10:35→21:29)
[2018-04-21] MEDS: MULTIVITAMINS (DAILY MVI) TABLET (FP) PO SCH (10:35)
[2018-04-21] MEDS: metoPROLOL SUCCINATE 25 MG TAB.SR.24H (FP) PO SCH ×2 (10:35→21:31)
[2018-04-21] MEDS: SERTRALINE HCL 50 MG TABLET (FP) PO SCH (10:35)
[2018-04-21] MEDS: PANTOPRAZOLE 20 MG TABLET (FP) PO SCH ×2 (10:35→21:29)
[2018-04-21] MEDS: ASPIRIN COATED 81 MG TABLET.EC PO SCH (10:35)
[2018-04-21] MEDS: FUROSEMIDE 20 MG TABLET (FP) PO SCH (10:35)
[2018-04-21] MEDS: methylPREDNISolone NA SUCC 40 MG/1 ML VIAL IVPUSH SCH ×2 (10:35→21:31)
[2018-04-21] MEDS: ARTIFICIAL TEARS (POLYVINYL ALCOHOL) OPTH DROPS OU SCH ×2 (10:36→21:27)
[2018-04-21] MEDS: BUDESONIDE/FORMETEROL FUMARATE 160/4.5 mcg INHALER IH SCH ×2 (10:37→21:31)
--- NOTE | 2018-04-21 10:54 | PN ---
Progress Note (short form) - Note Progress Note: PULMONARY VSS/AFEBRILE DOES NOT APPEAR ACUTELY ILL ANICTERIC DIMINISHED B/L BS S1S2 BS= NO EDEMA LABS/MEDS/NOTES/IMAGES REVIEWED CARDIO NOTE REVIEWED ESR/CRP/CEA LEVELS ARE NL LARGE RIGHT PARA TRACHEAL HYPODENSE MASS WITH CALCIUM NOTED LIKELY THYROID IN ORIGIN LARGE RIGHT UPPER LOBE/APICAL DENSITY WITH IRREGULAR BORDERS AND MULTIPLE CAVITARY AREAS COPD ELEVATED TROPONINS/SEVERE HYPOKINETIC LEFT VENTRICLE DEPRESSIVE DISORDER FORMER HEAVY SMOKER/SUBSTANTIAL WEIGHT LOSS ANTIBIOTICS PER ID o2/NEBS/CHEST PT R FLASH MERLOS Problem List - Problems (1) Pneumonia with cavity of lung Code(s): J18.9 - PNEUMONIA, UNSPECIFIED ORGANISM; J98.4 - OTHER DISORDERS OF LUNG (2) COPD exacerbation Code(s): J44.1 - CHRONIC OBSTRUCTIVE PULMONARY DISEASE W (ACUTE) EXACERBATION (3) Depression Code(s): F32.9 - MAJOR DEPRESSIVE DISORDER, SINGLE EPISODE, UNSPECIFIED Qualifiers: Depression Type: major depressive disorder Major depression recurrence: unspecified whether recurrent Active/Remission status: currently active Major depression episode severity: mild Qualified Code(s): F32.0 - Major depressive disorder, single episode, mild (4) HTN (hypertension) Code(s): I10 - ESSENTIAL (PRIMARY) HYPERTENSION (5) Acute diastolic (congestive) heart failure Code(s): I50.31 - ACUTE DIASTOLIC (CONGESTIVE) HEART FAILURE (6) Acute hypoxemic respiratory failure Code(s): J96.01 - ACUTE RESPIRATORY FAILURE WITH HYPOXIA (7) Elevated troponin Code(s): R74.8 - ABNORMAL LEVELS OF OTHER SERUM ENZYMES
--- NOTE | 2018-04-21 10:59 | PN ---
Progress Note, Physician Chief Complaint: sob History of Present Illness: sob much better, nearly resolved. still coughing, white phlegm (wasn't breaking up or coming up before, now it is) no cp here or at home no palpit, leg swelling ex cigs - Current Medication List Current Medications: Active Medications Acetaminophen (Tylenol -) 650 mg PO Q6H PRN PRN Reason: FEVER Albuterol Sulfate (Ventolin 0.083% Nebulizer Soln -) 1 amp NEB RQID [facility] Last Admin: 04/20/18 20:18 Dose: 1 amp Artificial Tears (Artificial Tears) 1 drop OU BID [facility] Last Admin: 04/21/18 10:36 Dose: Not Given Aspirin (Ecotrin -) 81 mg PO DAILY [facility] Last Admin: 04/21/18 10:35 Dose: 81 mg Atorvastatin Calcium (Lipitor -) 20 mg PO HS [facility] Last Admin: 04/20/18 22:00 Dose: 20 mg Budesonide/Formoterol Fumarate (Symbicort 160/4.5mcg -) 2 puff IH BID [facility] Last Admin: 04/21/18 10:37 Dose: 2 puff Carbidopa/Levodopa (Sinemet 25/100 -) 1 each PO TID [facility] Last Admin: 04/21/18 06:08 Dose: 1 each Docusate Sodium (Colace -) 100 mg PO Q8H PRN PRN Reason: CONSTIPATION Furosemide (Lasix -) 20 mg PO DAILY [facility] Last Admin: 04/21/18 10:35 Dose: 20 mg Heparin Sodium (Porcine) (Heparin -) 5,000 unit SQ TID [facility] Last Admin: 04/21/18 06:08 Dose: 5,000 unit Cefepime HCl 1 gm/ Dextrose 100 mls @ 200 mls/hr IVPB Q24H [facility]; Protocol Last Admin: 04/20/18 17:27 Dose: 200 mls/hr Dextrose/Sodium Chloride (D5-1/2ns -) 1,000 mls @ 75 mls/hr IV ASDIR [facility] Last Admin: 04/20/18 14:19 Dose: 75 mls/hr Lisinopril (Prinivil) 5 mg PO BID [facility] Last Admin: 04/21/18 10:35 Dose: 5 mg Methylprednisolone Sodium Succinate (Solu-Medrol -) 40 mg IVPUSH BID [facility] Last Admin: 04/21/18 10:35 Dose: 40 mg Metoprolol Succinate (Toprol Xl -) 25 mg PO DAILY [facility] Last Admin: 04/21/18 10:35 Dose: 25 mg Mirtazapine (Remeron -) 30 mg PO HS [facility] Last Admin: 04/20/18 22:01 Dose: 30 mg Montelukast Sodium (Singulair -) 10 mg PO HS [facility] Last Admin: 04/20/18 22:00 Dose: 10 mg Multivitamins/Minerals/Vitamin C (Tab-A-Vit -) 1 tab PO DAILY [facility] Last Admin: 04/21/18 10:35 Dose: 1 tab Pantoprazole Sodium (Protonix -) 20 mg PO BID [facility] Last Admin: 04/21/18 10:35 Dose: 20 mg Senna (Senna -) 2 tab PO HS PRN PRN Reason: CONSTIPATION Sertraline HCl (Zoloft -) 50 mg PO DAILY [facility] Last Admin: 04/21/18 10:35 Dose: 50 mg - Objective Vital Signs: Vital Signs Temperature 97.9 F 04/21/18 06:00 Pulse Rate 52 L 04/21/18 06:00 Respiratory Rate 22 H 04/21/18 06:00 Blood Pressure 137/69 04/21/18 06:00 O2 Sat by Pulse Oximetry (%) 96 04/20/18 21:00 Constitutional: Yes: No Distress, Calm Eyes: No: Sclera Icterus HENT: No: Nasal Congestion Cardiovascular: Yes: Regular Rate and Rhythm, S1, S2, Other (PMI non diplaced). No: Gallop, Murmur Respiratory: Yes: CTA Bilaterally. No: Accessory Muscle Use, Rales, Wheezes Gastrointestinal: Yes: Normal Bowel Sounds, Soft. No: Tenderness Musculoskeletal: Yes: Other (No kyphosis) Extremities: No: Cold Edema: No Integumentary: No: Jaundice Neurological: Yes: Alert, Oriented (x3) Psychiatric: No: Agitated Labs: CBC, BMP 04/20/18 06:40 04/20/18 06:40 INR, PTT INR 1.03 (0.83-1.09) 04/17/18 07:00 Assessment/Plan echo 03/2018: sev dec lvef (new from 06/2017), global hk except for base, nl rv, mild mr, mild tr ecg: sr, nl intervals, irbbb ct chest: r pna, lung mass, paratracheal mass mibi 03/2018: mild apical ischemia, nl lvef, normal LV cavity volume, no TID a/p: 88 m hx htn, copd, hld, ckd here with sob. copd, bronchitis vs PNA, + cavitary lung lesion -cont abx, steroids per pulm -imaging findings d/w'd pulm (dr lopez): possibly infectious in etiology though cannot exclude malignancy without tissue. no plans for invasive w/u at present, in light of pt's chronic medical issues and age/deconditioning/frailty. -plan is for outpt f/u with pulm and repeat imaging in 2-3 mo (large mass not likely to show signif changes in 6 wks per him) NSTEMI: -trop 2 initial-->trended down. -? NSTEMI (triggered by a.e. copd?) vs Takotsubo's. -arguing against plaque rupture ACS is the fact that he had new severely reduced EF and diffuse hypokinesis in all territories (c/w left main event or multi-vessel ischemia) yet if this was on basis of acute ischemia one would expect higher troponin, and much larger area of ischemia on myocardial perfusion imaging (MPI only mild apical ischemia, no TID, normal LV volume, normal stress EF) -Takotsubo's (i.e. "stress CMP") possible here, mary given EF normalized on MPI only 3 days from the echo findings of severely reduced LFSF -cath and PCI carries risk of exposing pt to unnecessary risk of procedure (and of bleeding on DAPT) if he has lung cancer (still to be determined, per pulm) and, worse, to premature discontinuation of DAPT (with risk of stent thrombosis ) if to need invasive w/u of lung mass -pulm planning re-imaging in 2-3 mo -given the low risk ischemia on MPI here, would rec deferring cath for now, while observe for sx's on max intensity anti-ischemic meds and wait for f/u CT chest to confirm resolution of the cavitary lung lesion -continue asa. rec add plavix for possible NSTEMI (12 mo course if tolerates-- can be stopped at any time if bleeding) -hi intensity statin to optimize recurrent RI/mortality risks (atorva 80)--can cut back dose as outpt later once out of acute window -incr metopr 25 bid (for syst chf benefits and anti-RI) -cont WILMA at current dose--creat trending up. low threshold to decr or hold WILMA if worsens -he will see us in office in 2-3 wks after discharge, call sooner if any chest discomfort (reviewed instructions with pt, verbalizes undersatanding) htn: -cont current meds hld: -cont statin ckd: -cr at baseline syst chf: -newly reduced lvef now since echo earlier this year -pt has no signs of volume overload -cont toprol, lisinopril, lasix po for chf regimen -mibi here shows only mild apical ischemia, a low risk finding. would plan for cardiac cath after acute issues resolve, can be arranged as outpt.
--- NOTE | 2018-04-21 11:59 | PN ---
Progress Note, Physician History of Present Illness: more better no issues breathing better - Current Medication List Current Medications: Active Medications Acetaminophen (Tylenol -) 650 mg PO Q6H PRN PRN Reason: FEVER Albuterol Sulfate (Ventolin 0.083% Nebulizer Soln -) 1 amp NEB RQID [facility] Last Admin: 04/21/18 07:25 Dose: 1 amp Artificial Tears (Artificial Tears) 1 drop OU BID [facility] Last Admin: 04/21/18 10:36 Dose: Not Given Aspirin (Ecotrin -) 81 mg PO DAILY [facility] Last Admin: 04/21/18 10:35 Dose: 81 mg Atorvastatin Calcium (Lipitor -) 80 mg PO [facility] Budesonide/Formoterol Fumarate (Symbicort 160/4.5mcg -) 2 puff IH BID [facility] Last Admin: 04/21/18 10:37 Dose: 2 puff Carbidopa/Levodopa (Sinemet 25/100 -) 1 each PO TID [facility] Last Admin: 04/21/18 06:08 Dose: 1 each Clopidogrel Bisulfate (Plavix -) 75 mg PO DAILY [facility] Docusate Sodium (Colace -) 100 mg PO Q8H PRN PRN Reason: CONSTIPATION Furosemide (Lasix -) 20 mg PO DAILY [facility] Last Admin: 04/21/18 10:35 Dose: 20 mg Heparin Sodium (Porcine) (Heparin -) 5,000 unit SQ TID [facility] Last Admin: 04/21/18 06:08 Dose: 5,000 unit Cefepime HCl 1 gm/ Dextrose 100 mls @ 200 mls/hr IVPB Q24H [facility]; Protocol Last Admin: 04/20/18 17:27 Dose: 200 mls/hr Dextrose/Sodium Chloride (D5-1/2ns -) 1,000 mls @ 75 mls/hr IV ASDIR [facility] Last Admin: 04/20/18 14:19 Dose: 75 mls/hr Lisinopril (Prinivil) 5 mg PO BID [facility] Last Admin: 04/21/18 10:35 Dose: 5 mg Methylprednisolone Sodium Succinate (Solu-Medrol -) 40 mg IVPUSH BID [facility] Last Admin: 04/21/18 10:35 Dose: 40 mg Metoprolol Succinate (Toprol Xl -) 25 mg PO BID [facility] Mirtazapine (Remeron -) 30 mg PO HS [facility] Last Admin: 04/20/18 22:01 Dose: 30 mg Montelukast Sodium (Singulair -) 10 mg PO HS [facility] Last Admin: 04/20/18 22:00 Dose: 10 mg Multivitamins/Minerals/Vitamin C (Tab-A-Vit -) 1 tab PO DAILY [facility] Last Admin: 04/21/18 10:35 Dose: 1 tab Pantoprazole Sodium (Protonix -) 20 mg PO BID [facility] Last Admin: 04/21/18 10:35 Dose: 20 mg Senna (Senna -) 2 tab PO HS PRN PRN Reason: CONSTIPATION Sertraline HCl (Zoloft -) 50 mg PO DAILY [facility] Last Admin: 04/21/18 10:35 Dose: 50 mg - Objective Vital Signs: Vital Signs Temperature 98 F 04/21/18 10:00 Pulse Rate 69 04/21/18 10:00 Respiratory Rate 20 04/21/18 10:00 Blood Pressure 120/63 04/21/18 10:00 O2 Sat by Pulse Oximetry (%) 96 04/20/18 21:00 Constitutional: Yes: No Distress, Calm Cardiovascular: Yes: Regular Rate and Rhythm Respiratory: Yes: Regular, CTA Bilaterally, On Nasal O2 Gastrointestinal: Yes: Normal Bowel Sounds, Soft Musculoskeletal: Yes: WNL Extremities: Yes: WNL Neurological: Yes: Alert, Oriented Psychiatric: Yes: Alert, Oriented Labs: CBC, BMP 04/20/18 06:40 04/20/18 06:40 INR, PTT INR 1.03 (0.83-1.09) 04/17/18 07:00 Assessment/Plan Problem List - Problems (1) Hypercapnic respiratory failure, chronic Code(s): J96.12 - CHRONIC RESPIRATORY FAILURE WITH HYPERCAPNIA (2) COPD exacerbation Code(s): J44.1 - CHRONIC OBSTRUCTIVE PULMONARY DISEASE W (ACUTE) EXACERBATION (3) Lactic acid acidosis Code(s): E87.2 - ACIDOSIS (4) Major depress dis, severe Code(s): F32.2 - MAJOR DEPRESSV DISORD, SINGLE EPSD, SEV W/O PSYCH FEATURES (5) Pneumonia Code(s): J18.9 - PNEUMONIA, UNSPECIFIED ORGANISM Qualifiers: Pneumonia type: due to unspecified organism (6) Non-ST elevation [place] (NSTEMI) Code(s): I21.4 - NON-ST ELEVATION (NSTEMI) MYOCARDIAL INFARCTION (7) CHF (congestive heart failure), NYHA class II Code(s): I50.9 - HEART FAILURE, UNSPECIFIED (8) Anxiety Code(s): F41.9 - ANXIETY DISORDER, UNSPECIFIED (9) Bronchiectasis Code(s): J47.9 - BRONCHIECTASIS, UNCOMPLICATED (10) Demand ischemia Code(s): I24.8 - OTHER FORMS OF ACUTE ISCHEMIC HEART DISEASE (11) Elevated troponin Code(s): R74.8 - ABNORMAL LEVELS OF OTHER SERUM ENZYMES (12) Acute diarrhea Code(s): R19.7 - DIARRHEA, UNSPECIFIED plan continue current abx patient improving incentive camacho rest as per the team
--- NOTE | 2018-04-21 14:25 | PN ---
Progress Note, Physician Chief Complaint: Pt is better now Pt benifit from STR Lexiscan Normal History of Present Illness: Pt is having low EF need cardiac eval spoke with ED about Lt UL Bronchiectatic lesion Discussed with Pulmonary Dr Roebrts today Pt Lt UL lesion no evidence of any malignacy Pt will need STR - Current Medication List Current Medications: Active Medications Acetaminophen (Tylenol -) 650 mg PO Q6H PRN PRN Reason: FEVER Albuterol Sulfate (Ventolin 0.083% Nebulizer Soln -) 1 amp NEB RQID [facility] Last Admin: 04/21/18 11:30 Dose: 1 amp Artificial Tears (Artificial Tears) 1 drop OU BID [facility] Last Admin: 04/21/18 10:36 Dose: Not Given Aspirin (Ecotrin -) 81 mg PO DAILY [facility] Last Admin: 04/21/18 10:35 Dose: 81 mg Atorvastatin Calcium (Lipitor -) 80 mg PO HS [facility] Budesonide/Formoterol Fumarate (Symbicort 160/4.5mcg -) 2 puff IH BID [facility] Last Admin: 04/21/18 10:37 Dose: 2 puff Carbidopa/Levodopa (Sinemet 25/100 -) 1 each PO TID [facility] Last Admin: 04/21/18 06:08 Dose: 1 each Clopidogrel Bisulfate (Plavix -) 75 mg PO DAILY [facility] Docusate Sodium (Colace -) 100 mg PO Q8H PRN PRN Reason: CONSTIPATION Furosemide (Lasix -) 20 mg PO DAILY [facility] Last Admin: 04/21/18 10:35 Dose: 20 mg Heparin Sodium (Porcine) (Heparin -) 5,000 unit SQ TID [facility] Last Admin: 04/21/18 06:08 Dose: 5,000 unit Cefepime HCl 1 gm/ Dextrose 100 mls @ 200 mls/hr IVPB Q24H [facility]; Protocol Last Admin: 04/20/18 17:27 Dose: 200 mls/hr Dextrose/Sodium Chloride (D5-1/2ns -) 1,000 mls @ 75 mls/hr IV ASDIR [facility] Last Admin: 04/20/18 14:19 Dose: 75 mls/hr Lisinopril (Prinivil) 5 mg PO BID [facility] Last Admin: 04/21/18 10:35 Dose: 5 mg Methylprednisolone Sodium Succinate (Solu-Medrol -) 40 mg IVPUSH BID [facility] Last Admin: 04/21/18 10:35 Dose: 40 mg Metoprolol Succinate (Toprol Xl -) 25 mg PO BID [facility] Mirtazapine (Remeron -) 30 mg PO HS [facility] Last Admin: 04/20/18 22:01 Dose: 30 mg Montelukast Sodium (Singulair -) 10 mg PO HS [facility] Last Admin: 04/20/18 22:00 Dose: 10 mg Multivitamins/Minerals/Vitamin C (Tab-A-Vit -) 1 tab PO DAILY [facility] Last Admin: 04/21/18 10:35 Dose: 1 tab Pantoprazole Sodium (Protonix -) 20 mg PO BID [facility] Last Admin: 04/21/18 10:35 Dose: 20 mg Senna (Senna -) 2 tab PO HS PRN PRN Reason: CONSTIPATION Sertraline HCl (Zoloft -) 50 mg PO DAILY [facility] Last Admin: 04/21/18 10:35 Dose: 50 mg - Objective Vital Signs: Vital Signs Temperature 98.3 F 04/21/18 13:48 Pulse Rate 62 04/21/18 13:48 Respiratory Rate 16 04/21/18 13:48 Blood Pressure 122/63 04/21/18 13:48 O2 Sat by Pulse Oximetry (%) 99 04/21/18 09:00 Constitutional: Yes: Anxious Eyes: Yes: Conjunctiva Clear, EOM Intact HENT: Yes: Atraumatic, Normocephalic Neck: Yes: Supple, Trachea Midline Cardiovascular: Yes: Regular Rate and Rhythm Respiratory: Yes: Regular, CTA Bilaterally Gastrointestinal: Yes: Normal Bowel Sounds, Soft Edema: No Peripheral Pulses WNL: Yes Neurological: Yes: Alert, Oriented, Cran Nerves II-XII Intact Labs: CBC, BMP 04/20/18 06:40 04/20/18 06:40 INR, PTT INR 1.03 (0.83-1.09) 04/17/18 07:00 Problem List - Problems (1) Hypercapnic respiratory failure, chronic Code(s): J96.12 - CHRONIC RESPIRATORY FAILURE WITH HYPERCAPNIA (2) COPD exacerbation Code(s): J44.1 - CHRONIC OBSTRUCTIVE PULMONARY DISEASE W (ACUTE) EXACERBATION (3) Lactic acid acidosis Code(s): E87.2 - ACIDOSIS (4) Major depress dis, severe Code(s): F32.2 - MAJOR DEPRESSV DISORD, SINGLE EPSD, SEV W/O PSYCH FEATURES (5) Pneumonia Code(s): J18.9 - PNEUMONIA, UNSPECIFIED ORGANISM Qualifiers: Pneumonia type: due to unspecified organism (6) Non-ST elevation [place] (NSTEMI) Code(s): I21.4 - NON-ST ELEVATION (NSTEMI) MYOCARDIAL INFARCTION (7) CHF (congestive heart failure), NYHA class II Code(s): I50.9 - HEART FAILURE, UNSPECIFIED (8) Anxiety Code(s): F41.9 - ANXIETY DISORDER, UNSPECIFIED (9) Bronchiectasis Code(s): J47.9 - BRONCHIECTASIS, UNCOMPLICATED (10) Demand ischemia Code(s): I24.8 - OTHER FORMS OF ACUTE ISCHEMIC HEART DISEASE (11) Elevated troponin Code(s): R74.8 - ABNORMAL LEVELS OF OTHER SERUM ENZYMES (12) Acute diarrhea Code(s): R19.7 - DIARRHEA, UNSPECIFIED Assessment/Plan Pt Troponins suggestive of Non St elevation MA Cut Down Metoprolol to 25 c Once daily Mild Diuressis with lasix 20 daily /Kcl Mild Hydration with D5 /2 ND 70 ml /Hr /Prerenal azotemia we will Discuss with cardiology regarding Hypokinesia of LV Reviewed The CT with ID also and today Discussed with Pulmonary Pt Lt UL lesion not suggestive of malignacy ESR and CRP is WNL also
[2018-04-21] MEDS: CLOPIDOGREL BISULFATE 75 MG TABLET (FP) PO SCH (14:31)
[2018-04-21] MEDS ORDERED: CEFEPIME HCL 1 GM VIAL (RESTRICTED TO ID) ONE (16:44)
[2018-04-21] MEDS ORDERED: DEXTROSE 5%-WATER 100 ML IVPB ONE (16:44)
[2018-04-21] MEDS: CEFEPIME 1 GM in DEXTROSE 5%-WATER 100 ML IVPB SCH (17:10)
[2018-04-21] MEDS: DEXTROSE 5%-0.45% SALINE 1,000 ML IV SCH (17:11)
[2018-04-21] MEDS ORDERED: MIRTAZAPINE 15 MG TABLET (FP) ONE (21:22)
[2018-04-21] MEDS: ATORVASTATIN CA 80 MG TABLET (FP) PO SCH (21:28)
[2018-04-21] MEDS: MIRTAZAPINE 30 MG TABLET (FP) PO SCH (21:30)
[2018-04-21] MEDS: MONTELUKAST NA 10 MG TABLET PO SCH (21:30)
[2018-04-22] MEDS: CARBIDOPA/LEVODOPA 25/100 TABLET (FP) PO SCH ×4 (05:33→21:04)
[2018-04-22] MEDS: HEPARIN NA (PORCINE) 5,000 UNITS/ML 1ML VIAL SQ SCH ×4 (05:33→21:02)
[2018-04-22] MEDS ORDERED: PT OWN MED DRAWER 7, Y5N ONE ×3 (06:21→20:22)
[2018-04-22 06:24] LABS: BASO % 0.1 % (0-2.0); HEMATOCRIT 43.8 % (35.4-49); HEMOGLOBIN 14.3 GM/dL (11.7-16.9); LYMPH % 4.5 % (8-40); MCH 29.9 pg (25.7-33.7); MCHC 32.7 g/dl (32.0-35.9); MEAN CELL VOLUME 91.5 fl (80-96); MEAN PLT VOLUME 8.9 fl (7.5-11.1); MONO % 3.1 % (3.8-10.2); NEUT % 92.3 % (42.8-82.8); PLATELET COUNT 179 K/MM3 (134-434); RBC 4.79 M/mm3 (4.00-5.60); RDW 14.5 % (11.9-15.9)
[2018-04-22 06:48] LABS: ANION GAP 8 MMOL/L (8-16); BLOOD UREA NITROGEN 50 mg/dL (7-18); CALCIUM 8.7 mg/dL (8.5-10.1); CHLORIDE 100 mmol/L (98-107); CO2 29 mmol/L (21-32); CREATININE 1.5 mg/dL (0.55-1.3); GLUCOSE,RANDOM 123 mg/dL (74-106); POTASSIUM 4.6 mmol/L (3.5-5.1); SODIUM 137 mmol/L (136-145)
[2018-04-22] MEDS: ALBUTEROL SO4 0.083% IH SOL 2.5 MG/3 ML VIAL.NEB. NEB SCH ×4 (07:30→20:28)
[2018-04-22] MEDS: DEXTROSE 5%-0.45% SALINE 1,000 ML IV SCH ×2 (08:00→19:05)
[2018-04-22] MEDS: PANTOPRAZOLE 20 MG TABLET (FP) PO SCH ×3 (09:21→21:03)
[2018-04-22] MEDS: methylPREDNISolone NA SUCC 40 MG/1 ML VIAL IVPUSH SCH ×3 (09:21→21:04)
[2018-04-22] MEDS: LISINOPRIL 5 MG TABLET (FP) PO SCH ×3 (09:21→21:03)
[2018-04-22] MEDS: SERTRALINE HCL 50 MG TABLET (FP) PO SCH (09:21)
[2018-04-22] MEDS: MULTIVITAMINS (DAILY MVI) TABLET (FP) PO SCH (09:21)
[2018-04-22] MEDS: FUROSEMIDE 20 MG TABLET (FP) PO SCH (09:21)
[2018-04-22] MEDS: CLOPIDOGREL BISULFATE 75 MG TABLET (FP) PO SCH (09:22)
[2018-04-22] MEDS: metoPROLOL SUCCINATE 25 MG TAB.SR.24H (FP) PO SCH ×3 (09:22→21:04)
[2018-04-22] MEDS: ASPIRIN COATED 81 MG TABLET.EC PO SCH (09:22)
[2018-04-22] MEDS: BUDESONIDE/FORMETEROL FUMARATE 160/4.5 mcg INHALER IH SCH ×3 (09:23→21:04)
[2018-04-22] MEDS: ARTIFICIAL TEARS (POLYVINYL ALCOHOL) OPTH DROPS OU SCH ×2 (09:24→21:02)
[2018-04-22 10:30] LABS: ACANTHOCYTES 0; ANISOCYTOSIS 0; HELMET CELLS 0; HOWELL-JOLLY BODIES 0; MACROCYTOSIS 0; OVALOCYTE 0; PLATELET ESTIMATE NORMAL; ROULEAU 0; SICKELED CELLS 0; TARGET CELLS 0; TEAR DROP CELLS 0; TOXIC GRANULATION 0
--- NOTE | 2018-04-22 10:39 | PN ---
Progress Note (short form) - Note Progress Note: PULMONARY States breathing better today. Still some cough and wheezing. No fevers. Vital Signs Period Temp Pulse Resp BP Sys/[place] Pulse Ox Last 24 Hr 97.6 F-98.3 F 50-62 16-24 119-132/62-68 98 Gen: mildly tachypneic with speaking Heart: RRR Lung: scattered rhonchi, wheezes Abd: soft, nontender Ext: no edema CBC, BMP 04/22/18 05:30 04/22/18 05:30 Active Medications Acetaminophen (Tylenol -) 650 mg PO Q6H PRN PRN Reason: FEVER Albuterol Sulfate (Ventolin 0.083% Nebulizer Soln -) 1 amp NEB RQID [facility] Last Admin: 04/21/18 20:05 Dose: 1 amp Artificial Tears (Artificial Tears) 1 drop OU BID [facility] Last Admin: 04/22/18 09:24 Dose: Not Given Aspirin (Ecotrin -) 81 mg PO DAILY [facility] Last Admin: 04/22/18 09:22 Dose: 81 mg Atorvastatin Calcium (Lipitor -) 80 mg PO HS [facility] Last Admin: 04/21/18 21:28 Dose: 80 mg Budesonide/Formoterol Fumarate (Symbicort 160/4.5mcg -) 2 puff IH BID [facility] Last Admin: 04/22/18 09:23 Dose: 2 puff Carbidopa/Levodopa (Sinemet 25/100 -) 1 each PO TID [facility] Last Admin: 04/22/18 05:33 Dose: 1 each Clopidogrel Bisulfate (Plavix -) 75 mg PO DAILY [facility] Last Admin: 04/22/18 09:22 Dose: 75 mg Docusate Sodium (Colace -) 100 mg PO Q8H PRN PRN Reason: CONSTIPATION Last Admin: 04/21/18 21:28 Dose: 100 mg Furosemide (Lasix -) 20 mg PO DAILY [facility] Last Admin: 04/22/18 09:21 Dose: 20 mg Heparin Sodium (Porcine) (Heparin -) 5,000 unit SQ TID [facility] Last Admin: 04/22/18 05:33 Dose: 5,000 unit Cefepime HCl 1 gm/ Dextrose 100 mls @ 200 mls/hr IVPB Q24H [facility]; Protocol Last Admin: 04/21/18 17:10 Dose: 200 mls/hr Dextrose/Sodium Chloride (D5-1/2ns -) 1,000 mls @ 75 mls/hr IV ASDIR [facility] Last Admin: 04/22/18 08:00 Dose: Not Given Lisinopril (Prinivil) 5 mg PO BID [facility] Last Admin: 04/22/18 09:21 Dose: 5 mg Methylprednisolone Sodium Succinate (Solu-Medrol -) 40 mg IVPUSH BID [facility] Last Admin: 04/22/18 09:21 Dose: 40 mg Metoprolol Succinate (Toprol Xl -) 25 mg PO BID [facility] Last Admin: 04/22/18 09:22 Dose: 25 mg Mirtazapine (Remeron -) 30 mg PO [facility] Last Admin: 04/21/18 21:30 Dose: 30 mg Montelukast Sodium (Singulair -) 10 mg PO [facility] Last Admin: 04/21/18 21:30 Dose: 10 mg Multivitamins/Minerals/Vitamin C (Tab-A-Vit -) 1 tab PO DAILY [facility] Last Admin: 04/22/18 09:21 Dose: 1 tab Pantoprazole Sodium (Protonix -) 20 mg PO BID [facility] Last Admin: 04/22/18 09:21 Dose: 20 mg Senna (Senna -) 2 tab PO HS PRN PRN Reason: CONSTIPATION Sertraline HCl (Zoloft -) 50 mg PO DAILY [facility] Last Admin: 04/22/18 09:21 Dose: 50 mg A/P Acute COPD Exacerbation Pneumonia Cavitary Lung Lesion Chronic Hypoxic Respiratory Failure Acute NSTEMI LV Systolic Dysfunction HTN Hyperlipidemia - continue antibiotics - continue medrol at current dose - can likely change to PO prednisone in AM if continues to improve - inhaled bronchodilators - O2 to keep SpO2 >90% - will need outpt f/u of chest imaging - DVT prophylaxis
--- NOTE | 2018-04-22 11:28 | PN ---
Progress Note (short form) - Note Progress Note: Chief Complaint: sob History of Present Illness: feels well, dyspnea improved. no chest pain, palps, dizziness, lightheadedness ex cigs Current Medications Acetaminophen (Tylenol -) 650 mg PO Q6H PRN PRN Reason: FEVER Albuterol Sulfate (Ventolin 0.083% Nebulizer Soln -) 1 amp NEB RQID [facility] Last Admin: 04/21/18 20:05 Dose: 1 amp Artificial Tears (Artificial Tears) 1 drop OU BID [facility] Last Admin: 04/22/18 09:24 Dose: Not Given Aspirin (Ecotrin -) 81 mg PO DAILY [facility] Last Admin: 04/22/18 09:22 Dose: 81 mg Atorvastatin Calcium (Lipitor -) 80 mg PO HS [facility] Last Admin: 04/21/18 21:28 Dose: 80 mg Budesonide/Formoterol Fumarate (Symbicort 160/4.5mcg -) 2 puff IH BID [facility] Last Admin: 04/22/18 09:23 Dose: 2 puff Carbidopa/Levodopa (Sinemet 25/100 -) 1 each PO TID [facility] Last Admin: 04/22/18 05:33 Dose: 1 each Clopidogrel Bisulfate (Plavix -) 75 mg PO DAILY [facility] Last Admin: 04/22/18 09:22 Dose: 75 mg Docusate Sodium (Colace -) 100 mg PO Q8H PRN PRN Reason: CONSTIPATION Last Admin: 04/21/18 21:28 Dose: 100 mg Furosemide (Lasix -) 20 mg PO DAILY [facility] Last Admin: 04/22/18 09:21 Dose: 20 mg Heparin Sodium (Porcine) (Heparin -) 5,000 unit SQ TID [facility] Last Admin: 04/22/18 05:33 Dose: 5,000 unit Cefepime HCl 1 gm/ Dextrose 100 mls @ 200 mls/hr IVPB Q24H [facility]; Protocol Last Admin: 04/21/18 17:10 Dose: 200 mls/hr Dextrose/Sodium Chloride (D5-1/2ns -) 1,000 mls @ 75 mls/hr IV ASDIR [facility] Last Admin: 04/22/18 08:00 Dose: Not Given Lisinopril (Prinivil) 5 mg PO BID [facility] Last Admin: 04/22/18 09:21 Dose: 5 mg Methylprednisolone Sodium Succinate (Solu-Medrol -) 40 mg IVPUSH BID [facility] Last Admin: 04/22/18 09:21 Dose: 40 mg Metoprolol Succinate (Toprol Xl -) 25 mg PO BID [facility] Last Admin: 04/22/18 09:22 Dose: 25 mg Mirtazapine (Remeron -) 30 mg PO HS [facility] Last Admin: 04/21/18 21:30 Dose: 30 mg Montelukast Sodium (Singulair -) 10 mg PO HS [facility] Last Admin: 04/21/18 21:30 Dose: 10 mg Multivitamins/Minerals/Vitamin C (Tab-A-Vit -) 1 tab PO DAILY [facility] Last Admin: 04/22/18 09:21 Dose: 1 tab Pantoprazole Sodium (Protonix -) 20 mg PO BID [facility] Last Admin: 04/22/18 09:21 Dose: 20 mg Senna (Senna -) 2 tab PO HS PRN PRN Reason: CONSTIPATION Sertraline HCl (Zoloft -) 50 mg PO DAILY [facility] Last Admin: 04/22/18 09:21 Dose: 50 mg - Objective Vital Signs Period Temp Pulse Resp BP Sys/[place] Pulse Ox Last 24 Hr 97.6 F-98.3 F 50-62 16-24 119-132/62-68 98 Constitutional: Yes: No Distress, Calm Eyes: No: Sclera Icterus HENT: No: Nasal Congestion Cardiovascular: Yes: Regular Rate and Rhythm, S1, S2, Other (PMI non diplaced). No: Gallop, Murmur Respiratory: Yes: CTA Bilaterally. No: Accessory Muscle Use, Rales, Wheezes Gastrointestinal: Yes: Normal Bowel Sounds, Soft. No: Tenderness Musculoskeletal: Yes: Other (No kyphosis) Extremities: No: Cold Edema: No Integumentary: No: Jaundice Neurological: Yes: Alert, Oriented (x3) Psychiatric: No: Agitated Assessment/Plan echo 03/2018: sev dec lvef (new from 06/2017), global hk except for base, nl rv, mild mr, mild tr ecg: sr, nl intervals, irbbb ct chest: r pna, lung mass, paratracheal mass mibi 03/2018: mild apical ischemia, nl lvef, normal LV cavity volume, no TID a/p: 88 m hx htn, copd, hld, ckd here with sob. copd, bronchitis vs PNA, + cavitary lung lesion -cont abx, steroids per pulm -imaging findings d/w'd pulm (dr lopez): possibly infectious in etiology though cannot exclude malignancy without tissue. no plans for invasive w/u at present, in light of pt's chronic medical issues and age/deconditioning/frailty. -plan is for outpt f/u with pulm and repeat imaging in 2-3 mo (large mass not likely to show signif changes in 6 wks per him) NSTEMI: -trop 2 initial-->trended down. -? NSTEMI (triggered by a.e. copd?) vs Takotsubo's. -arguing against plaque rupture ACS is the fact that he had new severely reduced EF and diffuse hypokinesis in all territories (c/w left main event or multi-vessel ischemia) yet if this was on basis of acute ischemia one would expect higher troponin, and much larger area of ischemia on myocardial perfusion imaging (MPI only mild apical ischemia, no TID, normal LV volume, normal stress EF) -Takotsubo's (i.e. "stress CMP") possible here, mary given EF normalized on MPI only 3 days from the echo findings of severely reduced LFSF -cath and PCI carries risk of exposing pt to unnecessary risk of procedure (and of bleeding on DAPT) if he has lung cancer (still to be determined, per pulm) and, worse, to premature discontinuation of DAPT (with risk of stent thrombosis ) if to need invasive w/u of lung mass -pulm planning re-imaging in 2-3 mo -given the low risk ischemia on MPI here, would rec deferring cath for now, while observe for sx's on max intensity anti-ischemic meds and wait for f/u CT chest to confirm resolution of the cavitary lung lesion -continue asa. rec add plavix for possible NSTEMI (12 mo course if tolerates-- can be stopped at any time if bleeding) -hi intensity statin to optimize recurrent [place]/mortality risks (atorva 80)--can cut back dose as outpt later once out of acute window -incr metopr 25 bid (for syst chf benefits and anti-[place]) -cont WILMA at current dose, cr improving -he will see us in office in 2-3 wks after discharge, call sooner if any chest discomfort (reviewed instructions with pt, verbalizes undersatanding) htn: -cont current meds hld: -cont statin ckd: -cr at baseline syst chf: -newly reduced lvef now since echo earlier this year -pt has no signs of volume overload -cont toprol, lisinopril, lasix po for chf regimen -mibi here shows only mild apical ischemia, a low risk finding. would plan for cardiac cath after acute issues resolve, can be arranged as outpt.
--- NOTE | 2018-04-22 12:03 | PN ---
Progress Note, Physician History of Present Illness: patient doing well breathing well - Current Medication List Current Medications: Active Medications Acetaminophen (Tylenol -) 650 mg PO Q6H PRN PRN Reason: FEVER Albuterol Sulfate (Ventolin 0.083% Nebulizer Soln -) 1 amp NEB RQID [facility] Last Admin: 04/21/18 20:05 Dose: 1 amp Artificial Tears (Artificial Tears) 1 drop OU BID [facility] Last Admin: 04/22/18 09:24 Dose: Not Given Aspirin (Ecotrin -) 81 mg PO DAILY [facility] Last Admin: 04/22/18 09:22 Dose: 81 mg Atorvastatin Calcium (Lipitor -) 80 mg PO HS [facility] Last Admin: 04/21/18 21:28 Dose: 80 mg Budesonide/Formoterol Fumarate (Symbicort 160/4.5mcg -) 2 puff IH BID [facility] Last Admin: 04/22/18 09:23 Dose: 2 puff Carbidopa/Levodopa (Sinemet 25/100 -) 1 each PO TID [facility] Last Admin: 04/22/18 05:33 Dose: 1 each Clopidogrel Bisulfate (Plavix -) 75 mg PO DAILY [facility] Last Admin: 04/22/18 09:22 Dose: 75 mg Docusate Sodium (Colace -) 100 mg PO Q8H PRN PRN Reason: CONSTIPATION Last Admin: 04/21/18 21:28 Dose: 100 mg Furosemide (Lasix -) 20 mg PO DAILY [facility] Last Admin: 04/22/18 09:21 Dose: 20 mg Heparin Sodium (Porcine) (Heparin -) 5,000 unit SQ TID [facility] Last Admin: 04/22/18 05:33 Dose: 5,000 unit Cefepime HCl 1 gm/ Dextrose 100 mls @ 200 mls/hr IVPB Q24H [facility]; Protocol Last Admin: 04/21/18 17:10 Dose: 200 mls/hr Dextrose/Sodium Chloride (D5-1/2ns -) 1,000 mls @ 75 mls/hr IV ASDIR [facility] Last Admin: 04/22/18 08:00 Dose: Not Given Lisinopril (Prinivil) 5 mg PO BID [facility] Last Admin: 04/22/18 09:21 Dose: 5 mg Methylprednisolone Sodium Succinate (Solu-Medrol -) 40 mg IVPUSH BID [facility] Last Admin: 04/22/18 09:21 Dose: 40 mg Metoprolol Succinate (Toprol Xl -) 25 mg PO BID [facility] Last Admin: 04/22/18 09:22 Dose: 25 mg Mirtazapine (Remeron -) 30 mg PO [facility] Last Admin: 04/21/18 21:30 Dose: 30 mg Montelukast Sodium (Singulair -) 10 mg PO [facility] Last Admin: 04/21/18 21:30 Dose: 10 mg Multivitamins/Minerals/Vitamin C (Tab-A-Vit -) 1 tab PO DAILY [facility] Last Admin: 04/22/18 09:21 Dose: 1 tab Pantoprazole Sodium (Protonix -) 20 mg PO BID [facility] Last Admin: 04/22/18 09:21 Dose: 20 mg Senna (Senna -) 2 tab PO HS PRN PRN Reason: CONSTIPATION Sertraline HCl (Zoloft -) 50 mg PO DAILY [facility] Last Admin: 04/22/18 09:21 Dose: 50 mg - Objective Vital Signs: Vital Signs Temperature 97.6 F 04/22/18 06:00 Pulse Rate 50 L 04/22/18 06:00 Respiratory Rate 20 04/22/18 06:00 Blood Pressure 132/68 04/22/18 06:00 O2 Sat by Pulse Oximetry (%) 98 04/21/18 21:00 Constitutional: Yes: No Distress, Calm Cardiovascular: Yes: Regular Rate and Rhythm Gastrointestinal: Yes: Normal Bowel Sounds, Soft Musculoskeletal: Yes: WNL Extremities: Yes: WNL Neurological: Yes: Alert, Oriented Psychiatric: Yes: Alert, Oriented Labs: CBC, BMP 04/22/18 05:30 04/22/18 05:30 INR, PTT INR 1.03 (0.83-1.09) 04/17/18 07:00 Assessment/Plan Problem List - Problems (1) Hypercapnic respiratory failure, chronic Code(s): J96.12 - CHRONIC RESPIRATORY FAILURE WITH HYPERCAPNIA (2) COPD exacerbation Code(s): J44.1 - CHRONIC OBSTRUCTIVE PULMONARY DISEASE W (ACUTE) EXACERBATION (3) Lactic acid acidosis Code(s): E87.2 - ACIDOSIS (4) Major depress dis, severe Code(s): F32.2 - MAJOR DEPRESSV DISORD, SINGLE EPSD, SEV W/O PSYCH FEATURES (5) Pneumonia Code(s): J18.9 - PNEUMONIA, UNSPECIFIED ORGANISM Qualifiers: Pneumonia type: due to unspecified organism (6) Non-ST elevation SD (NSTEMI) Code(s): I21.4 - NON-ST ELEVATION (NSTEMI) MYOCARDIAL INFARCTION (7) CHF (congestive heart failure), NYHA class II Code(s): I50.9 - HEART FAILURE, UNSPECIFIED (8) Anxiety Code(s): F41.9 - ANXIETY DISORDER, UNSPECIFIED (9) Bronchiectasis Code(s): J47.9 - BRONCHIECTASIS, UNCOMPLICATED (10) Demand ischemia Code(s): I24.8 - OTHER FORMS OF ACUTE ISCHEMIC HEART DISEASE (11) Elevated troponin Code(s): R74.8 - ABNORMAL LEVELS OF OTHER SERUM ENZYMES (12) Acute diarrhea Code(s): R19.7 - DIARRHEA, UNSPECIFIED plan patient improving incentive camacho rest as per the team will deescalate abx to oral
--- NOTE | 2018-04-22 17:54 | PN ---
Progress Note, Physician Chief Complaint: Pt Still has cough with Productive sputum Pt benifit from STR Lexiscan Normal History of Present Illness: Pt is better but still has cough with Productive sputum Pt refused STR - Current Medication List Current Medications: Active Medications Acetaminophen (Tylenol -) 650 mg PO Q6H PRN PRN Reason: FEVER Albuterol Sulfate (Ventolin 0.083% Nebulizer Soln -) 1 amp NEB RQID [facility] Last Admin: 04/22/18 17:33 Dose: 1 amp Artificial Tears (Artificial Tears) 1 drop OU BID [facility] Last Admin: 04/22/18 09:24 Dose: Not Given Aspirin (Ecotrin -) 81 mg PO DAILY [facility] Last Admin: 04/22/18 09:22 Dose: 81 mg Atorvastatin Calcium (Lipitor -) 80 mg PO HS [facility] Last Admin: 04/21/18 21:28 Dose: 80 mg Budesonide/Formoterol Fumarate (Symbicort 160/4.5mcg -) 2 puff IH BID [facility] Last Admin: 04/22/18 09:23 Dose: 2 puff Carbidopa/Levodopa (Sinemet 25/100 -) 1 each PO TID [facility] Last Admin: 04/22/18 14:47 Dose: 1 each Clopidogrel Bisulfate (Plavix -) 75 mg PO DAILY [facility] Last Admin: 04/22/18 09:22 Dose: 75 mg Docusate Sodium (Colace -) 100 mg PO Q8H PRN PRN Reason: CONSTIPATION Last Admin: 04/21/18 21:28 Dose: 100 mg Furosemide (Lasix -) 20 mg PO DAILY [facility] Last Admin: 04/22/18 09:21 Dose: 20 mg Heparin Sodium (Porcine) (Heparin -) 5,000 unit SQ TID [facility] Last Admin: 04/22/18 14:47 Dose: Not Given Dextrose/Sodium Chloride (D5-1/2ns -) 1,000 mls @ 75 mls/hr IV ASDIR [facility] Last Admin: 04/22/18 08:00 Dose: Not Given Lisinopril (Prinivil) 5 mg PO BID [facility] Last Admin: 04/22/18 09:21 Dose: 5 mg Methylprednisolone Sodium Succinate (Solu-Medrol -) 40 mg IVPUSH BID [facility] Last Admin: 04/22/18 09:21 Dose: 40 mg Metoprolol Succinate (Toprol Xl -) 25 mg PO BID [facility] Last Admin: 04/22/18 09:22 Dose: 25 mg Mirtazapine (Remeron -) 30 mg PO [facility] Last Admin: 04/21/18 21:30 Dose: 30 mg Montelukast Sodium (Singulair -) 10 mg PO HS [facility] Last Admin: 04/21/18 21:30 Dose: 10 mg Multivitamins/Minerals/Vitamin C (Tab-A-Vit -) 1 tab PO DAILY [facility] Last Admin: 04/22/18 09:21 Dose: 1 tab Pantoprazole Sodium (Protonix -) 20 mg PO BID [facility] Last Admin: 04/22/18 09:21 Dose: 20 mg Senna (Senna -) 2 tab PO HS PRN PRN Reason: CONSTIPATION Sertraline HCl (Zoloft -) 50 mg PO DAILY [facility] Last Admin: 04/22/18 09:21 Dose: 50 mg - Objective Vital Signs: Vital Signs Temperature 97.9 F 04/22/18 14:14 Pulse Rate 59 L 04/22/18 14:14 Respiratory Rate 16 04/22/18 14:14 Blood Pressure 121/66 04/22/18 14:14 O2 Sat by Pulse Oximetry (%) 98 04/22/18 09:00 Eyes: Yes: Conjunctiva Clear, EOM Intact HENT: Yes: Atraumatic, Normocephalic Neck: Yes: Supple, Trachea Midline Cardiovascular: Yes: Regular Rate and Rhythm, S1, S2 Respiratory: Yes: Regular, CTA Bilaterally Gastrointestinal: Yes: Normal Bowel Sounds, Soft Edema: No Peripheral Pulses WNL: Yes Neurological: Yes: Alert, Cran Nerves II-XII Intact Labs: CBC, BMP 04/22/18 05:30 04/22/18 05:30 INR, PTT INR 1.03 (0.83-1.09) 04/17/18 07:00 Problem List - Problems (1) Hypercapnic respiratory failure, chronic Code(s): J96.12 - CHRONIC RESPIRATORY FAILURE WITH HYPERCAPNIA (2) COPD exacerbation Code(s): J44.1 - CHRONIC OBSTRUCTIVE PULMONARY DISEASE W (ACUTE) EXACERBATION (3) Lactic acid acidosis Code(s): E87.2 - ACIDOSIS (4) Major depress dis, severe Code(s): F32.2 - MAJOR DEPRESSV DISORD, SINGLE EPSD, SEV W/O PSYCH FEATURES (5) Pneumonia Code(s): J18.9 - PNEUMONIA, UNSPECIFIED ORGANISM Qualifiers: Pneumonia type: due to unspecified organism (6) Non-ST elevation IN (NSTEMI) Code(s): I21.4 - NON-ST ELEVATION (NSTEMI) MYOCARDIAL INFARCTION (7) CHF (congestive heart failure), NYHA class II Code(s): I50.9 - HEART FAILURE, UNSPECIFIED (8) Anxiety Code(s): F41.9 - ANXIETY DISORDER, UNSPECIFIED (9) Bronchiectasis Code(s): J47.9 - BRONCHIECTASIS, UNCOMPLICATED (10) Demand ischemia Code(s): I24.8 - OTHER FORMS OF ACUTE ISCHEMIC HEART DISEASE (11) Elevated troponin Code(s): R74.8 - ABNORMAL LEVELS OF OTHER SERUM ENZYMES (12) Acute diarrhea Code(s): R19.7 - DIARRHEA, UNSPECIFIED Assessment/Plan DC emerita Pt refused STR Reviewed The CT with ID also and today Discussed with Pulmonary Pt Lt UL lesion not suggestive of malignacy ESR and CRP is WNL also
[2018-04-22] MEDS ORDERED: MIRTAZAPINE 15 MG TABLET (FP) ONE (20:19)
[2018-04-22] MEDS: ATORVASTATIN CA 80 MG TABLET (FP) PO SCH ×2 (20:41→21:03)
[2018-04-22] MEDS: MONTELUKAST NA 10 MG TABLET PO SCH ×2 (20:41→21:04)
[2018-04-22] MEDS: MIRTAZAPINE 30 MG TABLET (FP) PO SCH ×2 (20:42→21:03)
[2018-04-23] MEDS: HEPARIN NA (PORCINE) 5,000 UNITS/ML 1ML VIAL SQ SCH ×2 (05:37→13:57)
[2018-04-23] MEDS: CARBIDOPA/LEVODOPA 25/100 TABLET (FP) PO SCH ×2 (05:38→13:57)
[2018-04-23] MEDS: ALBUTEROL SO4 0.083% IH SOL 2.5 MG/3 ML VIAL.NEB. NEB SCH ×3 (07:10→15:35)
--- NOTE | 2018-04-23 09:59 | PN ---
Progress Note (short form) - Note Progress Note: PULMONARY States breathing continues to improve. Still some cough and wheezing. No fevers. Has been ambulating hallways. Vital Signs Period Temp Pulse Resp BP Sys/[place] Pulse Ox Last 24 Hr 97.6 F-98.1 F 50-60 16-20 118-130/59-66 96 Gen: less tachypneic with speaking Heart: RRR Lung: scattered wheezes Abd: soft, nontender Ext: no edema CBC, BMP 04/22/18 05:30 04/22/18 05:30 Active Medications Acetaminophen (Tylenol -) 650 mg PO Q6H PRN PRN Reason: FEVER Albuterol Sulfate (Ventolin 0.083% Nebulizer Soln -) 1 amp NEB RQID [facility] Last Admin: 04/23/18 07:10 Dose: 1 amp Artificial Tears (Artificial Tears) 1 drop OU BID [facility] Last Admin: 04/22/18 21:02 Dose: Not Given Aspirin (Ecotrin -) 81 mg PO DAILY [facility] Last Admin: 04/22/18 09:22 Dose: 81 mg Atorvastatin Calcium (Lipitor -) 80 mg PO HS [facility] Last Admin: 04/22/18 21:03 Dose: Not Given Budesonide/Formoterol Fumarate (Symbicort 160/4.5mcg -) 2 puff IH BID [facility] Last Admin: 04/22/18 21:04 Dose: Not Given Carbidopa/Levodopa (Sinemet 25/100 -) 1 each PO TID [facility] Last Admin: 04/23/18 05:38 Dose: 1 each Clopidogrel Bisulfate (Plavix -) 75 mg PO DAILY [facility] Last Admin: 04/22/18 09:22 Dose: 75 mg Docusate Sodium (Colace -) 100 mg PO Q8H PRN PRN Reason: CONSTIPATION Last Admin: 04/21/18 21:28 Dose: 100 mg Furosemide (Lasix -) 20 mg PO DAILY [facility] Last Admin: 04/22/18 09:21 Dose: 20 mg Heparin Sodium (Porcine) (Heparin -) 5,000 unit SQ TID [facility] Last Admin: 04/23/18 05:37 Dose: Not Given Lisinopril (Prinivil) 5 mg PO BID [facility] Last Admin: 04/22/18 21:03 Dose: Not Given Methylprednisolone Sodium Succinate (Solu-Medrol -) 40 mg IVPUSH BID [facility] Last Admin: 04/22/18 21:04 Dose: Not Given Metoprolol Succinate (Toprol Xl -) 25 mg PO BID [facility] Last Admin: 04/22/18 21:04 Dose: Not Given Mirtazapine (Remeron -) 30 mg PO HS [facility] Last Admin: 04/22/18 21:03 Dose: Not Given Montelukast Sodium (Singulair -) 10 mg PO HS [facility] Last Admin: 04/22/18 21:04 Dose: Not Given Multivitamins/Minerals/Vitamin C (Tab-A-Vit -) 1 tab PO DAILY [facility] Last Admin: 04/22/18 09:21 Dose: 1 tab Pantoprazole Sodium (Protonix -) 20 mg PO BID [facility] Last Admin: 04/22/18 21:03 Dose: Not Given Senna (Senna -) 2 tab PO HS PRN PRN Reason: CONSTIPATION Sertraline HCl (Zoloft -) 50 mg PO DAILY [facility] Last Admin: 04/22/18 09:21 Dose: 50 mg A/P Acute COPD Exacerbation Pneumonia Cavitary Lung Lesion Chronic Hypoxic Respiratory Failure Acute NSTEMI LV Systolic Dysfunction HTN Hyperlipidemia - continue antibiotics - will change steroids to PO prednisone, can taper as outpt - inhaled bronchodilators - O2 to keep SpO2 >90% - will need outpt f/u of chest imaging - DVT prophylaxis - can d/c home from pulmonary standpoint
[2018-04-23] MEDS ORDERED: PT OWN MED DRAWER 7, Y5N ONE (10:37)
[2018-04-23] MEDS: SERTRALINE HCL 50 MG TABLET (FP) PO SCH (10:41)
[2018-04-23] MEDS: LISINOPRIL 5 MG TABLET (FP) PO SCH (10:41)
[2018-04-23] MEDS: CLOPIDOGREL BISULFATE 75 MG TABLET (FP) PO SCH (10:41)
[2018-04-23] MEDS: MULTIVITAMINS (DAILY MVI) TABLET (FP) PO SCH (10:41)
[2018-04-23] MEDS: PANTOPRAZOLE 20 MG TABLET (FP) PO SCH (10:41)
[2018-04-23] MEDS: FUROSEMIDE 20 MG TABLET (FP) PO SCH (10:41)
[2018-04-23] MEDS: ARTIFICIAL TEARS (POLYVINYL ALCOHOL) OPTH DROPS OU SCH (10:42)
[2018-04-23] MEDS: metoPROLOL SUCCINATE 25 MG TAB.SR.24H (FP) PO SCH (10:42)
[2018-04-23] MEDS: ASPIRIN COATED 81 MG TABLET.EC PO SCH (10:42)
[2018-04-23] MEDS: methylPREDNISolone NA SUCC 40 MG/1 ML VIAL IVPUSH SCH (10:42)
[2018-04-23] MEDS: BUDESONIDE/FORMETEROL FUMARATE 160/4.5 mcg INHALER IH SCH (10:43)
--- NOTE | 2018-04-23 13:13 | PN ---
Progress Note (short form) - Note Progress Note: s: no cp palps dizzy. sob and cough better. walking in halls feels good. o: Vital Signs Period Temp Pulse Resp BP Sys/[place] Pulse Ox Last 24 Hr 97.6 F-98 F 50-68 16-20 121-135/59-66 96-98 nad no jvd rrr s1s2 no mrg cta bl nl eff aaox3 no le e/c/c abd nt nd pos bs no jaundice diaphoresis Current Medications Generic Name Dose Route Start Last Admin Trade Name Freq PRN Reason Stop Dose Admin Acetaminophen 650 mg 04/16/18 19:39 Tylenol - PO Q6H PRN FEVER Albuterol Sulfate 1 amp 04/19/18 20:00 04/23/18 07:10 Ventolin 0.083% Nebulizer Soln - NEB 1 amp RQID [facility] Administration Artificial Tears 1 drop 04/16/18 22:00 04/23/18 10:42 Artificial Tears OU Not Given BID [facility] Aspirin 81 mg 04/17/18 16:45 04/23/18 10:42 Ecotrin - PO 81 mg DAILY [facility] Administration Atorvastatin Calcium 80 mg 04/21/18 11:07 04/22/18 21:03 Lipitor - PO Not Given HS [facility] Budesonide/Formoterol Fumarate 2 puff 04/16/18 22:00 04/23/18 10:43 Symbicort 160/4.5mcg - IH 2 puff BID [facility] Administration Carbidopa/Levodopa 1 each 04/16/18 22:00 04/23/18 05:38 Sinemet 25/100 - PO 1 each TID [facility] Administration Clopidogrel Bisulfate 75 mg 04/21/18 11:15 04/23/18 10:41 Plavix - PO 75 mg DAILY [facility] Administration Docusate Sodium 100 mg 04/16/18 23:01 04/21/18 21:28 Colace - PO 100 mg Q8H PRN Administration CONSTIPATION Furosemide 20 mg 04/18/18 10:00 04/23/18 10:41 Lasix - PO 20 mg DAILY [facility] Administration Heparin Sodium (Porcine) 5,000 unit 04/17/18 06:00 04/23/18 05:37 Heparin - SQ Not Given TID [facility] Lisinopril 5 mg 04/16/18 22:00 04/23/18 10:41 Prinivil PO 5 mg BID [facility] Administration Methylprednisolone Sodium Succinate 40 mg 04/16/18 22:00 04/23/18 10:42 Solu-Medrol - IVPUSH 40 mg BID [facility] Administration Metoprolol Succinate 25 mg 04/21/18 22:00 04/23/18 10:42 Toprol Xl - PO 25 mg BID [facility] Administration Mirtazapine 30 mg 04/16/18 22:00 04/22/18 21:03 Remeron - PO Not Given HS [facility] Montelukast Sodium 10 mg 04/16/18 22:00 04/22/18 21:04 Singulair - PO Not Given HS [facility] Multivitamins/Minerals/Vitamin C 1 tab 04/17/18 10:00 04/23/18 10:41 Tab-A-Vit - PO 1 tab DAILY [facility] Administration Pantoprazole Sodium 20 mg 04/16/18 22:00 04/23/18 10:41 Protonix - PO 20 mg BID [facility] Administration Senna 2 tab 04/16/18 23:01 Senna - PO HS PRN CONSTIPATION Sertraline HCl 50 mg 04/17/18 10:00 04/23/18 10:41 Zoloft - PO 50 mg DAILY [facility] Administration CBC, BMP 04/22/18 05:30 04/22/18 05:30 echo 03/2018: sev dec lvef (new from 06/2017), global hk except for base, nl rv, mild mr, mild tr ecg: sr, nl intervals, irbbb ct chest: r pna, lung mass, paratracheal mass mibi 03/2018: mild apical ischemia, nl lvef a/p: 88 m hx htn, copd, hld, ckd here with sob. copd, bronchitis vs PNA, + cavitary lung lesion -cont abx, steroids per pulm -imaging findings d/w'd pulm (dr lopez): possibly infectious in etiology though cannot exclude malignancy without tissue. no plans for invasive w/u at present, in light of pt's chronic medical issues and age/deconditioning/frailty. -plan is for outpt f/u with pulm and repeat imaging in 2-3 mo (large mass not likely to show signif changes in 6 wks per him) NSTEMI: -trop 2 initial-->trended down. -? NSTEMI (triggered by a.e. copd?) vs Takotsubo's. -arguing against plaque rupture ACS is the fact that he had new severely reduced EF and diffuse hypokinesis in all territories (c/w left main event or multi-vessel ischemia) yet if this was on basis of acute ischemia one would expect higher troponin, and much larger area of ischemia on myocardial perfusion imaging (MPI only mild apical ischemia, no TID, normal LV volume, normal stress EF) -Takotsubo's (i.e. "stress CMP") possible here, mary given EF normalized on MPI only 3 days from the echo findings of severely reduced LFSF -cath and PCI carries risk of exposing pt to unnecessary risk of procedure (and of bleeding on DAPT) if he has lung cancer (still to be determined, per pulm) and, worse, to premature discontinuation of DAPT (with risk of stent thrombosis ) if to need invasive w/u of lung mass -pulm planning re-imaging in 2-3 mo -given the low risk ischemia on MPI here, would rec deferring cath for now, while observe for sx's on max intensity anti-ischemic meds and wait for f/u CT chest to confirm resolution of the cavitary lung lesion -continue asa. rec add plavix for possible NSTEMI (12 mo course if tolerates-- can be stopped at any time if bleeding) -hi intensity statin to optimize recurrent [place]/mortality risks (atorva 80)--can cut back dose as outpt later once out of acute window -incr metopr 25 bid (for syst chf benefits and anti-[place]) -cont WILMA at current dose, cr improving -he will see us in office in 2-3 wks after discharge, call sooner if any chest discomfort (reviewed instructions with pt, verbalizes undersatanding) htn: -cont current meds hld: -cont statin ckd: -cr at baseline syst chf: -newly reduced lvef now since echo earlier this year -pt has no signs of volume overload -cont toprol, lisinopril, lasix po for chf regimen -mibi here shows only mild apical ischemia, a low risk finding. would plan for cardiac cath after acute issues resolve, can be arranged as outpt. cardiac james stable
--- NOTE | 2018-04-23 14:28 | PN ---
Progress Note, Physician History of Present Illness: patient doing well breathing better - Current Medication List Current Medications: Active Medications Acetaminophen (Tylenol -) 650 mg PO Q6H PRN PRN Reason: FEVER Albuterol Sulfate (Ventolin 0.083% Nebulizer Soln -) 1 amp NEB RQID [facility] Last Admin: 04/23/18 07:10 Dose: 1 amp Artificial Tears (Artificial Tears) 1 drop OU BID [facility] Last Admin: 04/23/18 10:42 Dose: Not Given Aspirin (Ecotrin -) 81 mg PO DAILY [facility] Last Admin: 04/23/18 10:42 Dose: 81 mg Atorvastatin Calcium (Lipitor -) 80 mg PO [facility] Last Admin: 04/22/18 21:03 Dose: Not Given Budesonide/Formoterol Fumarate (Symbicort 160/4.5mcg -) 2 puff IH BID [facility] Last Admin: 04/23/18 10:43 Dose: 2 puff Carbidopa/Levodopa (Sinemet 25/100 -) 1 each PO TID [facility] Last Admin: 04/23/18 13:57 Dose: 1 each Clopidogrel Bisulfate (Plavix -) 75 mg PO DAILY [facility] Last Admin: 04/23/18 10:41 Dose: 75 mg Docusate Sodium (Colace -) 100 mg PO Q8H PRN PRN Reason: CONSTIPATION Last Admin: 04/21/18 21:28 Dose: 100 mg Furosemide (Lasix -) 20 mg PO DAILY [facility] Last Admin: 04/23/18 10:41 Dose: 20 mg Heparin Sodium (Porcine) (Heparin -) 5,000 unit SQ TID [facility] Last Admin: 04/23/18 13:57 Dose: Not Given Lisinopril (Prinivil) 5 mg PO BID [facility] Last Admin: 04/23/18 10:41 Dose: 5 mg Methylprednisolone Sodium Succinate (Solu-Medrol -) 40 mg IVPUSH BID [facility] Last Admin: 04/23/18 10:42 Dose: 40 mg Metoprolol Succinate (Toprol Xl -) 25 mg PO BID [facility] Last Admin: 04/23/18 10:42 Dose: 25 mg Mirtazapine (Remeron -) 30 mg PO [facility] Last Admin: 04/22/18 21:03 Dose: Not Given Montelukast Sodium (Singulair -) 10 mg PO [facility] Last Admin: 04/22/18 21:04 Dose: Not Given Multivitamins/Minerals/Vitamin C (Tab-A-Vit -) 1 tab PO DAILY [facility] Last Admin: 04/23/18 10:41 Dose: 1 tab Pantoprazole Sodium (Protonix -) 20 mg PO BID [facility] Last Admin: 04/23/18 10:41 Dose: 20 mg Senna (Senna -) 2 tab PO HS PRN PRN Reason: CONSTIPATION Sertraline HCl (Zoloft -) 50 mg PO DAILY [facility] Last Admin: 04/23/18 10:41 Dose: 50 mg - Objective Vital Signs: Vital Signs Temperature 98 F 04/23/18 10:00 Pulse Rate 68 04/23/18 10:00 Respiratory Rate 20 04/23/18 10:00 Blood Pressure 135/66 04/23/18 10:00 O2 Sat by Pulse Oximetry (%) 98 04/23/18 09:00 Constitutional: Yes: No Distress, Calm Cardiovascular: Yes: Regular Rate and Rhythm Respiratory: Yes: Regular, Other (crackles) Gastrointestinal: Yes: Normal Bowel Sounds, Soft Musculoskeletal: Yes: WNL Extremities: Yes: WNL Neurological: Yes: Alert, Oriented Psychiatric: Yes: Alert, Oriented Labs: CBC, BMP 04/22/18 05:30 04/22/18 05:30 INR, PTT INR 1.03 (0.83-1.09) 04/17/18 07:00 Assessment/Plan Problem List - Problems (1) Hypercapnic respiratory failure, chronic Code(s): J96.12 - CHRONIC RESPIRATORY FAILURE WITH HYPERCAPNIA (2) COPD exacerbation Code(s): J44.1 - CHRONIC OBSTRUCTIVE PULMONARY DISEASE W (ACUTE) EXACERBATION (3) Lactic acid acidosis Code(s): E87.2 - ACIDOSIS (4) Major depress dis, severe Code(s): F32.2 - MAJOR DEPRESSV DISORD, SINGLE EPSD, SEV W/O PSYCH FEATURES (5) Pneumonia Code(s): J18.9 - PNEUMONIA, UNSPECIFIED ORGANISM Qualifiers: Pneumonia type: due to unspecified organism (6) Non-ST elevation [place] (NSTEMI) Code(s): I21.4 - NON-ST ELEVATION (NSTEMI) MYOCARDIAL INFARCTION (7) CHF (congestive heart failure), NYHA class II Code(s): I50.9 - HEART FAILURE, UNSPECIFIED (8) Anxiety Code(s): F41.9 - ANXIETY DISORDER, UNSPECIFIED (9) Bronchiectasis Code(s): J47.9 - BRONCHIECTASIS, UNCOMPLICATED (10) Demand ischemia Code(s): I24.8 - OTHER FORMS OF ACUTE ISCHEMIC HEART DISEASE (11) Elevated troponin Code(s): R74.8 - ABNORMAL LEVELS OF OTHER SERUM ENZYMES (12) Acute diarrhea Code(s): R19.7 - DIARRHEA, UNSPECIFIED plan patient improving incentive camacho rest as per the team changed abx to oral
[2018-04-23 16:37] VITALS: BMI 20.5
[2018-04-23 17:14] VITALS: BP 139/66; PULSE 65; TEMP 97.8
[2018-04-23] MEDS ORDERED: AMOX TR/POT CLAV 500MG/125MG TABLETS (FP) PO SCH (17:30)
--- NOTE | 2018-04-23 17:53 | DS ---
Physical Examination Vital Signs: Vital Signs Temperature 97.8 F 04/23/18 17:13 Pulse Rate 65 04/23/18 17:13 Respiratory Rate 20 04/23/18 17:13 Blood Pressure 139/66 04/23/18 17:13 O2 Sat by Pulse Oximetry (%) 98 04/23/18 09:00 Constitutional: Yes: Calm Eyes: Yes: Conjunctiva Clear, EOM Intact HENT: Yes: Atraumatic, Normocephalic Neck: Yes: Supple, Trachea Midline Cardiovascular: Yes: Regular Rate and Rhythm Respiratory: Yes: Regular, CTA Bilaterally, Uriah-Steven Gastrointestinal: Yes: Normal Bowel Sounds, Soft Edema: No Peripheral Pulses WNL: Yes Neurological: Yes: Alert, Oriented, Cran Nerves II-XII Intact Psychiatric: Yes: Alert Labs: CBC, BMP 04/22/18 05:30 04/22/18 05:30 Discharge Summary Reason For Visit: CHRONIC OBSTRUCTIVE PULMONARY DISEASE Current Active Problems Acute diarrhea (Acute) CHF (congestive heart failure), NYHA class II (Acute) COPD exacerbation (Acute) Depression (Acute) Elevated troponin (Acute) HTN (hypertension) (Acute) Hypercapnic respiratory failure, chronic (Acute) Insomnia disorder (Acute) Non-ST elevation [place] (NSTEMI) (Acute) Pneumonia with cavity of lung (Acute) Prophylactic measure (Acute) Procedures: Principal: Pt had Hypercapnic Repiratory failure Seen By Pulmonary. Bronchiectasis with Acute Excerbation of COPD seen By ID On IV antibiotics. IV Hydration. Lexiscan was done : No acute changes. Pt will be on Oral antibiotics. Repeat CT after 4 weeks Hospital Course: Pt will FU with PMD Next week Condition: Stable - Instructions Disposition: HOME - Home Medications Comprehensive Discharge Medication List: Ambulatory Orders Budesonide/Formeterol Fumarate [SYMBICORT 160/4.5mcg -] 2 inh PO BID 02/24/17 Lisinopril 5 mg PO Once daily Metoprolol Tartrate [Lopressor -] 25 mg PO BID 02/25/17 Montelukast Na [Singulair -] 10 mg PO HS 02/25/17 Multivitamin [Poly-Vitamin] 1 each PO DAILY 04/28/17 Albuterol 0.083% Nebulizer Magi [Ventolin 0.083%] 1 neb NEB TID 04/01/18 Dextran 70/Hypromellose [Artificial Tears] 1 each OP BID 04/01/18 Omeprazole 20 mg PO BID 04/01/18 Prednisone 20 PO BID 04/01/18
== END 2018-04-23 18:50 | disposition home or self-care (01) | DRG 280 ==
LOC: JER 15:11 → JERBED 17:01 → J8W 22:20
PROVIDERS: ADMIT Internal Medicine; ATTEND Internal Medicine
DX: I21.4 Non-ST elevation (NSTEMI) myocardial infarction (principal); J18.9 Pneumonia, unspecified organism; I50.21 Acute systolic (congestive) heart failure; J96.21 Acute and chronic respiratory failure with hypoxia; J96.12 Chronic respiratory failure with hypercapnia; E87.2 Acidosis; I13.0 Hypertensive heart and chronic kidney disease with heart failure and stage 1 through stage 4 chronic kidney disease, or unspecified chronic kidney disease; J43.9 Emphysema, unspecified; Z87.891 Personal history of nicotine dependence; R05 Cough; Z85.46 Personal history of malignant neoplasm of prostate; F31.9 Bipolar disorder, unspecified; N18.9 Chronic kidney disease, unspecified; G47.00 Insomnia, unspecified; G20 Parkinson's disease; F02.80 Dementia in other diseases classified elsewhere, unspecified severity, without behavioral disturbance, psychotic disturbance, mood disturbance, and anxiety; F41.9 Anxiety disorder, unspecified; J47.9 Bronchiectasis, uncomplicated; R63.4 Abnormal weight loss; Z68.20 Body mass index [BMI] 20.0-20.9, adult
CPT/HCPCS: 36415; 71045-TC-FY; 71250-TC; 78452-TC; 80048; 80053; 82378; 82550; 82803; 83735; 83880; 84100; 84484; 85025; 85027; 85610; 85651; 85730; 86140; 86480; 87070; 87077; 87107; 87205; 93005; 93010; 93017; 93306-TC; 94640; 99282-25; A9502; J1644; J2785

== ENCOUNTER 2018-11-02 09:43 | Day surgery (SDC) | payer OTHER ==
[2018-10-29 16:16] VITALS: BMI 25.0
[2018-11-02 11:03] LABS: EOS % 1.5 % (0-4.5); HEMATOCRIT 38.8 % (35.4-49); HEMOGLOBIN 13.4 GM/dL (11.7-16.9); MCH 31.9 pg (25.7-33.7); MCHC 34.4 g/dl (32.0-35.9); MEAN CELL VOLUME 92.5 fl (80-96); MEAN PLT VOLUME 8.8 fl (7.5-11.1); MONO % 7.7 % (3.8-10.2); NEUT % 78.8 % (42.8-82.8); PLATELET COUNT 247 K/MM3 (134-434); WHITE BLOOD COUNT 7.9 K/mm3 (4.0-10.0)
[2018-11-02 11:17] LABS: INR 1.06 (0.83-1.09); PROTHROMBIN TIME (PATIENT) 12.5 SEC (9.7-13.0)
[2018-11-02 16:45] VITALS: TEMP 97.9
[2018-11-02 17:09] VITALS: BP 133/69; PULSE 66
--- NOTE | 2018-11-04 09:07 | PATH ---
Surgical Pathology Report Patient Name: JULIENNE VILLAREAL Med. Rec. #: [id number] /Age/Gender: 1930 (Age: 88) / M Account: [id number] Location: RADIOLOGY INTER Taken: 11/02/2018 Received: 11/02/2018 Reported: 11/04/2018 Physicians: Segundo Cassidy M.D. Specimen(s) Received LUNG BIOPSY Clinical History Right lung lesion Final Diagnosis LUNG, RIGHT, CORE BIOPSY: NECROTIZING GRANULOMATOUS INFLAMMATION. PAS AND AFB SPECIAL STAINS PENDING AND WILL BE REPORTED SEPARATELY. SEE COMMENT. Comment: Findings are non-specific. Possible etiologies include infection and autoimmune disorders. Suggest clinical and radiologic correlation. Electronically Signed Kala Leslie M.D. Addendum Reported: 11/04/2018 Addendum Diagnosis Fungal (PAS) and acid fast bacilli (AFB) special stains are negative. Kala Leslie M.D. Gross Description Received in formalin labeled "right lung biopsy," is a 1.0 x 0.5 x 0.1 cm aggregate of hoang-brown soft tissue fragments. The formalin is filtered and the specimen is entirely submitted in one cassette. DL/11/02/2018 saudi/11/02/2018
== END 2018-11-02 17:00 | disposition home or self-care (01) ==
LOC: JRADIR 09:43
PROVIDERS: ATTEND Internal Medicine
PROC: 0BBC3ZX Excision of Right Upper Lung Lobe, Percutaneous Approach, Diagnostic (ICD-10-PCS; principal; 2018-11-02)
DX: D38.1 Neoplasm of uncertain behavior of trachea, bronchus and lung (principal)
CPT/HCPCS: 32405; 36415; 71045-TC-FY; 77012-TC; 85025; 85610; 88305-TC; 88312-TC

== ENCOUNTER → 2019-01-07 | Day surgery (SDC) | payer OTHER ==
--- NOTE | 2019-01-11 15:07 | PATH ---
Cytology Non-Gynecological Report Patient Name: JULIENNE VILLAREAL [facility]. Rec. #: [id number] /Age/Gender: 1930 (Age: 88) / M Account: [id number] Location: RADIOLOGY INTER Taken: 01/07/2019 Received: 01/08/2019 Reported: 01/11/2019 Physicians: Gopi Hathaway M.D. Specimen(s) Received RIGHT LOBE THYROID FNA Clinical History Right thyroid nodule Final Diagnosis THYROID, RIGHT, FINE NEEDLE ASPIRATION: SATISFACTORY FOR EVALUATION BETHESDA CLASS II: BENIGN SMALL FOLLICULAR CELLS, MACROPHAGES, AND COLLOID PRESENT, CONSISTENT WITH A BENIGN FOLLICULAR NODULE. Electronically Signed Moy Ribeiro M.D. Gross Description Received are eight direct smears, four of which are air-dried and Diff-Quik stained, and four of which are alcohol fixed and Pap stained. Also received is 20 ml of bloody formalin from which one cellblock is prepared.
== END | disposition home or self-care (01) ==
LOC: JRADIR 09:08
PROVIDERS: ATTEND Internal Medicine Hematology & Oncology
PROC: 0G9H3ZX Drainage of Right Thyroid Gland Lobe, Percutaneous Approach, Diagnostic (ICD-10-PCS; principal; 2019-01-07)
DX: E04.1 Nontoxic single thyroid nodule (principal)
CPT/HCPCS: 76942; 88173; 88305-TC

== ENCOUNTER 2019-02-25 16:01 | Inpatient (IN) | payer OTHER ==
--- NOTE | 2019-02-25 16:43 | PDOC ---
History of Present Illness - General Chief Complaint: Shortness of Breath Stated Complaint: Shortness of Breath Time Seen by Provider: 02/25/19 16:24 History Source: Patient, EMS - History of Present Illness Initial Comments: 02/25/19 18:05 Mr. Morales is an 89 y/o man with hx HTN, COPD, P/W two weeks of URI symptoms, recent evaluation by PCP prescribed 2 courses of antibiotics, presenting with acute onset dyspnea on exertion and shortness of breath this afternoon. He reports that at baseline he uses 2L O2 while at home, but typically has no limitations to his ADLs and takes daily 30 min walks without difficulty. He reports that today he returned from the supermarket and became acutely short of breath while walking back into his home. He reports that his became concerned and brought him in for evaluation. He denies any chest pain, fatigue, near syncope, weakness, or any fevers since starting antibiotics (He does not recall which antibiotics, but endorses that the second was "a penicillin"). Past History - Past Medical History Allergies/Adverse Reactions: Allergies Allergy/AdvReac Type Severity Reaction Status Date / Time No Known Allergies Allergy Verified 02/25/19 16:35 Home Medications: Ambulatory Orders Budesonide/Formeterol Fumarate [SYMBICORT 160/4.5mcg -] 2 inh PO BID 02/24/17 Lisinopril 5 mg PO BID 02/25/17 Metoprolol Tartrate [Lopressor -] 25 mg PO BID 02/25/17 Montelukast Na [Singulair -] 10 mg PO HS 02/25/17 Multivitamin [Poly-Vitamin] 1 each PO DAILY 04/28/17 Albuterol 0.083% Nebulizer Magi [Ventolin 0.083%] 1 neb NEB TID 04/01/18 Mirtazapine [Remeron -] 15 mg PO HS 10/29/18 Sertraline HCl 50 mg PO AM 10/29/18 Loratadine 1 tab PO DAILY 11/02/18 Anemia: No Asthma: Yes Cancer: Yes (PROSTATE, seeding) Cardiac Disorders: No CVA: No COPD: Yes (EMPHYSEMA) CHF: No Dementia: No Diabetes: No GI Disorders: No Disorders: No HTN: Yes Hypercholesterolemia: No Liver Disease: No Psychiatric Problems: Yes (BIPOLAR) Seizures: No Thyroid Disease: No - Surgical History Abdominal Surgery: No Appendectomy: No (?) Cardiac Surgery: Yes (LEFT) Cholecystectomy: Yes Lung Surgery: No Neurologic Surgery: No Orthopedic Surgery: No - Immunization History Immunization Up to Date: Yes - Psycho Social/Smoking Cessation Hx Smoking History: Former smoker Have you smoked in the past 12 months: No If you are a former smoker, when did you quit?: 1998 Hx Alcohol Use: No Drug/Substance Use Hx: No Substance Use Type: None Hx Substance Use Treatment: No Review of Systems - Review of Systems Able to Perform ROS?: Yes Comments:: 02/25/19 19:23 ROS: GENERAL/CONSTITUTIONAL: No fever or chills. No weakness. HEAD, EYES, EARS, NOSE AND THROAT: No change in vision. No ear pain or discharge. No sore throat. CARDIOVASCULAR: No chest pain RESPIRATORY: Shortness of breath, cough, wheezing. No hemoptysis. GASTROINTESTINAL: No nausea, vomiting, diarrhea or constipation. GENITOURINARY: No dysuria, frequency, or change in urination. MUSCULOSKELETAL: No joint or muscle swelling or pain. No neck or back pain. SKIN: No rash NEUROLOGIC: No headache, vertigo, loss of consciousness, or change in strength/ sensation. ENDOCRINE: No increased thirst. No abnormal weight change HEMATOLOGIC/LYMPHATIC: No anemia, easy bleeding, or history of blood clots. ALLERGIC/IMMUNOLOGIC: No hives or skin allergy. *Physical Exam - Physical Exam Comments: 02/25/19 19:24 PE: GENERAL: Awake, alert, and fully oriented, in no acute distress HEAD: No signs of trauma, normocephalic, atraumatic EYES: PERRLA, EOMI, sclera anicteric, conjunctiva clear ENT: Auricles normal inspection, hearing grossly normal, nares patent, oropharynx clear without exudates. Moist mucosa NECK: Normal ROM, supple, no lymphadenopathy, JVD, or masses LUNGS: Diffuse mild wheezing. No distress, speaks full sentences HEART: Regular rate and rhythm, normal S1 and S2, no murmurs, rubs or gallops, peripheral pulses normal and equal bilaterally. ABDOMEN: Soft, nontender, normoactive bowel sounds. No guarding, no rebound. No masses EXTREMITIES : Normal inspection, Normal range of motion, no edema. No clubbing or cyanosis NEUROLOGICAL: Cranial nerves II through XII grossly intact. 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 Differential also includes pneumonia, ACS, CHF possible but less likely given lack of significant cardiac history. Received duoneb x2, solumedrol x1 in the field by EMS, feeling improved. Plan: CBC CMP BNP EKG CXR Cardiac profile 2L O2 nasal cannula Dispo: Admit --- CBC - WBC - 23 VBG - 7.44, pCO2 - 39.6 Troponin - 0.09 BNP - 765 02/25/19 22:16 Patient endorsed to admitting team, admitted to Dr. Rivers, Med/Surg. Discharge - Discharge Information Problems reviewed: Yes Clinical Impression/Diagnosis: COPD exacerbation Condition: Stable - Admission Yes - Follow up/Referral - Patient Discharge Instructions - Post Discharge Activity
[2019-02-25 17:43] LABS: BASO % 0.4 % (0-2.0); HEMATOCRIT 50.9 % (35.4-49); HEMOGLOBIN 16.7 GM/dL (11.7-16.9); LYMPH % 1.2 % (8-40); MCH 31.5 pg (25.7-33.7); MCHC 32.9 g/dl (32.0-35.9); MEAN PLT VOLUME 8.2 fl (7.5-11.1); MONO % 2.6 % (3.8-10.2); NEUT % 95.8 % (42.8-82.8); PLATELET COUNT 249 K/MM3 (134-434); RDW 15.7 % (11.9-15.9)
--- NOTE | 2019-02-25 18:02 | PDOC ---
Documentation entered by Aniya Burgess SCRIBE, acting as scribe for Gopi Vogel MD. Gopi Vogel MD: This documentation has been prepared by the Jenifer aragon Xhesika, SCRIBE, under my direction and personally reviewed by me in its entirety. I confirm that the documentation accurately reflects all work, treatment, procedures, and medical decision making performed by me. 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 Patient notes that his cough is improved however he does feel occasionally congestion in his chest patient reports he spoke with his PCP who prescribed him amoxicillin and steroids, however, his symptoms persisted, prompting his arrival to the ED. for the past 5 days patient notes that his dyspnea on exertion is so bad that he has a make plans to walk up the stairs, and is short of breath after minimal exertion. patient notes he has been eating and drinking normally. Patient received duonebs and steroids upon arrival by EMS. Patient denies chest pain, headache, leg swelling, calf pain, hemoptysis lightheadedness, fever, chills, nausea, or vomiting. Denies urinary symptoms or changes in bowel movements. The patient denies any orthopnea, but notes that he sleeps sitting up in his recliner for the past several years. Allergies: NKDA Surgeries: None reported. Social: Extensive former smoker. No reported alcohol or drug use. PCP: Dr. Chen - Physicial Exam PE: 02/25/19 17:33 GENERAL: The patient is awake, alert, and fully oriented, Nontoxic - in no acute distress. HEAD: Normocephalic, atraumatic. EYES: extraocular movements intact, sclera anicteric, conjunctiva clear. ENT: Normal voice, Moist mucous membranes. NECK: Normal range of motion, supple without lymphadenopathy, JVD, or masses. LUNGS: Breath sounds equal, clear to auscultation bilaterally. No wheezes, no crackles, no rales. HEART: Regular rate and rhythm, normal S1 and S2 without murmur, rub or gallop. ABDOMEN: Soft, nontender, normoactive bowel sounds. No guarding, no rebound. No masses. EXTREMITIES: Normal range of motion, no edema. No clubbing or cyanosis. No cords, erythema, or tenderness. NEUROLOGICAL: No facial asymmetry, Normal speech, normal gait. PSYCH: Normal mood, normal affect. SKIN: Warm, Dry, normal turgor, no rashes or lesions noted. - Medical Decision Making 02/25/19 17:23 89y M hx of copd (baseline 2L of O2) persents with complaint of wworsening PEARSON, recently treated w/ abx and prednisone withou improvement w cough w/o fever/ chills, cp. pts lungs clear here - ddx - ?copd v pna v acs vs chf will obtian lab work, vbg, cbc, cmp, cxr, will reassess, anticipate admission pt placed on supplemental o2 02/25/19 18:31 Patient's labs reviewed the patient does have a leukocytosis may be secondary to the steroids The patient's blood gas does not suggest predominant COPD exacerbatoin anticipate admissino for further managemnt Heart Score/ECG Review - ECG Impressions Comment:: 02/25/19 18:31 Twelve-lead EKG was performed and reviewed by me. There is normal sinus rhythm with a normal rate. Rate of 91 Left anterior fascicular block The intervals are normal. There is normal R wave progression There are no ST or T wave abnormalities.
[2019-02-25 18:09] LABS: VENOUS PC02 39.6 mmHg (38-52); VENOUS PH 7.44 (7.31-7.41)
[2019-02-25 18:15] LABS: ALBUMIN 3.6 g/dl (3.4-5.0); BLOOD UREA NITROGEN 45.4 mg/dL (7-18); CALCIUM 9.1 mg/dL (8.5-10.1); CREATININE 1.4 mg/dL (0.55-1.3); POTASSIUM 4.9 mmol/L (3.5-5.1)
[2019-02-25 18:39] LABS: PLATELET ESTIMATE NORMAL
--- NOTE | 2019-02-25 23:14 | HP ---
Admitting History and Physical - Admission Chief Complaint: SOB on exertion History of Present Illness: 89 year old male with PMhx of HTN, COPD ( on o2 at home), CKD, MDDs arrived to Emergency room for SOB on exertion that is getting worse, and failed out- patient treatment. Patient recent evaluation by PCP prescribed course of antibiotics ( PCN 10 days) and PO steroids (2 weeks). Patient reports that at baseline he uses 2L O2 while at home, but typically has no limitations to his ADLs and takes daily 30 min walks without difficulty. He reports that today he returned from the supermarket and became acutely short of breath while walking back into his home. Patient denies any chest pain, fatigue, near syncope, weakness. Patient received duonebs and steroids upon arrival by EMS. 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 Cardiovascular: Yes: HTN Pulmonary: Yes: COPD, O2 Dependent, Other (Emphysema) Renal/: Yes: Renal Inusuff Psych: Yes: Bipolar, Depression Musculoskeletal: Yes: Osteoarthritis - Past Surgical History Past Surgical History: Yes: Cholecystectomy - Smoking History Smoking history: Former smoker Have you smoked in the past 12 months: No If you are a former smoker, when did you quit?: 1998 - Alcohol/Substance Use Hx Alcohol Use: No History of Substance Use: reports: None - Social History ADL: Independent History of Recent Travel: No Home Medications - Allergies Allergies/Adverse Reactions: Allergies Allergy/AdvReac Type Severity Reaction Status Date / Time No Known Allergies Allergy Verified 02/25/19 16:35 - Home Medications Home Medications: Ambulatory Orders Budesonide/Formeterol Fumarate [SYMBICORT 160/4.5mcg -] 2 inh PO BID 02/24/17 Lisinopril 5 mg PO BID 02/25/17 Metoprolol Tartrate [Lopressor -] 25 mg PO BID 02/25/17 Montelukast Na [Singulair -] 10 mg PO HS 02/25/17 Multivitamin [Poly-Vitamin] 1 each PO DAILY 04/28/17 Albuterol 0.083% Nebulizer Magi [Ventolin 0.083%] 1 neb NEB TID 04/01/18 Mirtazapine [Remeron -] 15 mg PO HS 10/29/18 Sertraline HCl 50 mg PO AM 10/29/18 Loratadine 1 tab PO DAILY 11/02/18 Family Medical History Family Hx Cancer: Sister (breast CA ( )) Family Hx Nuerologic Problems: Brother (CVA ( )) Review of Systems - Review of Systems Constitutional: reports: No Symptoms Eyes: reports: No Symptoms HENT: reports: No Symptoms Neck: reports: No Symptoms Cardiovascular: reports: No Symptoms Respiratory: reports: SOB, SOB on Exertion, Wheezing Gastrointestinal: reports: No Symptoms Genitourinary: reports: No Symptoms Musculoskeletal: reports: No Symptoms Integumentary: reports: No Symptoms Neurological: reports: No Symptoms Endocrine: reports: No Symptoms Hematology/Lymphatic: reports: No Symptoms Psychiatric: reports: No Symptoms Physical Examination Vital Signs: Vital Signs Temperature 97.2 F L 02/25/19 17:00 Pulse Rate 95 H 02/25/19 22:38 Respiratory Rate 18 02/25/19 22:38 Blood Pressure 152/89 02/25/19 22:38 O2 Sat by Pulse Oximetry (%) 96 02/25/19 22:38 Constitutional: Yes: No Distress, Calm Eyes: Yes: Conjunctiva Clear, EOM Intact HENT: Yes: Atraumatic, Normocephalic Neck: Yes: Supple, Trachea Midline Cardiovascular: Yes: Regular Rate and Rhythm Respiratory: Yes: Regular, On Nasal O2, SOB, Wheezes Gastrointestinal: Yes: Normal Bowel Sounds, Soft Musculoskeletal: Yes: WNL Extremities: Yes: WNL Edema: No Peripheral Pulses WNL: Yes Neurological: Yes: Alert, Oriented Labs: CBC, BMP 02/25/19 17:30 02/25/19 17:30 Imaging - Results Chest X-ray: Report Reviewed (R side ? infiltrate) Other: Report Reviewed (trops 0.09 --> 0.10 EKG: NSR, no s/t changes) Problem List - Problems (1) COPD exacerbation Code(s): J44.1 - CHRONIC OBSTRUCTIVE PULMONARY DISEASE W (ACUTE) EXACERBATION (2) Elevated troponin Code(s): R74.8 - ABNORMAL LEVELS OF OTHER SERUM ENZYMES (3) Emphysema of lung Code(s): J43.9 - EMPHYSEMA, UNSPECIFIED (4) Bronchiectasis Code(s): J47.9 - BRONCHIECTASIS, UNCOMPLICATED (5) CHF (congestive heart failure) Code(s): I50.9 - HEART FAILURE, UNSPECIFIED (6) Chronic kidney disease (CKD) Code(s): N18.9 - CHRONIC KIDNEY DISEASE, UNSPECIFIED (7) Major depress dis, severe Code(s): F32.2 - MAJOR DEPRESSV DISORD, SINGLE EPSD, SEV W/O PSYCH FEATURES Assessment/Plan 89 year old male with PMhx of HTN, COPD ( on o2 at home), CKD, Bipolar disorder arrived to Emergency room for SOB on exertion that is getting worse, and failed out-patient treatment. Patient received duonebs and steroids upon arrival by EMS with relief. 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 vascular congestion - will follow up STAT cbc w/diff and lactic acid - monitor vitals for fever - repeat CXR in AM #Elevated troponin likely secondary to demand ischemia r/o ACS - trop 0.09 --> 0.10 - EKG: NSR, no s/t changes - follow up cardiology # HTN -Lisinopril 5 mg PO BID -Metoprolol Tartrate 25 mg PO BID # CHF bnp:765.1 - no home meds - fluids restriction - monitor I &O # chronic CKD bun/cr: 45.4/1.4 - monitor renal function # MDDs -Mirtazapine 15 mg PO HS -Sertraline HCl 50 mg PO AM - monitor for acute behavioral issues Visit type - Emergency Visit Emergency Visit: Yes ED Registration Date: 02/25/19 Care time: The patient presented to the Emergency Department on the above date and was hospitalized for further evaluation of their emergent condition. - New Patient This patient is new to me today: Yes Date on this admission: 02/26/19 - Critical Care Critical Care patient: No
[2019-02-25 23:56] VITALS: BMI 24.1
[2019-02-26] MEDS ORDERED: ACETAMINOPHEN 325 MG TABLET (FP) PO PRN (00:30)
[2019-02-26 02:55] LABS: BASO % 0.2 % (0-2.0); HEMATOCRIT 46.6 % (35.4-49); HEMOGLOBIN 15.5 GM/dL (11.7-16.9); LYMPH % 2.7 % (8-40); MCH 31.8 pg (25.7-33.7); MCHC 33.3 g/dl (32.0-35.9); MEAN CELL VOLUME 95.5 fl (80-96); MEAN PLT VOLUME 8.2 fl (7.5-11.1); MONO % 4.4 % (3.8-10.2); NEUT % 92.7 % (42.8-82.8); PLATELET COUNT 214 K/MM3 (134-434); RBC 4.88 M/mm3 (4.00-5.60); RDW 15.5 % (11.9-15.9); WHITE BLOOD COUNT 17.6 K/mm3 (4.0-10.0)
[2019-02-26] MEDS: SERTRALINE HCL 50 MG TABLET (FP) PO SCH (06:06)
[2019-02-26] MEDS: ALBUTEROL SO4 2.5/IPRATROPIUM 0.5 INH SOL 3 ML VIAL.NEB. NEB SCH ×4 (07:25→20:15)
--- NOTE | 2019-02-26 09:31 | CON.CARD ---
Consult Consult Specialty:: Cardiology Referred by:: Dr. 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 No CP. No palps No edema. 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 Cardio/Vascular: Yes: HTN, Other (Stress induced CM 03/2018) Pulmonary: Yes: COPD, O2 Dependent Renal/: Yes: Renal Inusuff Psych: Yes: Bipolar, Depression Musculoskeletal: Yes: Osteoarthritis - Past Surgical History Past Surgical History: Yes: Cholecystectomy - Alcohol/Substance Use Hx Alcohol Use: No History of Substance Use: reports: None - Smoking History Smoking history: Former smoker Have you smoked in the past 12 months: No If you are a former smoker, when did you quit?: 1998 - Social History ADL: Independent History of Recent Travel: No Home Medications - Allergies Allergies/Adverse Reactions: Allergies Allergy/AdvReac Type Severity Reaction Status Date / Time No Known Allergies Allergy Verified 02/25/19 16:35 - Home Medications Home Medications: Ambulatory Orders Budesonide/Formeterol Fumarate [SYMBICORT 160/4.5mcg -] 2 inh PO BID 02/24/17 Lisinopril 5 mg PO BID 02/25/17 Metoprolol Tartrate [Lopressor -] 25 mg PO BID 02/25/17 Montelukast Na [Singulair -] 10 mg PO HS 02/25/17 Multivitamin [Poly-Vitamin] 1 each PO DAILY 04/28/17 Albuterol 0.083% Nebulizer Magi [Ventolin 0.083%] 1 neb NEB TID 04/01/18 Mirtazapine [Remeron -] 15 mg PO HS 10/29/18 Sertraline HCl 50 mg PO AM 10/29/18 Loratadine 1 tab PO DAILY 11/02/18 Review of Systems - Review of Systems Constitutional: reports: No Symptoms Eyes: reports: No Symptoms Cardiovascular: reports: Shortness of Breath Respiratory: reports: Cough, Exercise Intolerance, SOB on Exertion Gastrointestinal: denies: No Symptoms, Abdominal Pain, Bloating, Constipation, Diarrhea, Dysphagia, Indigestion, Melena, Nausea, Rectal Bleeding, Vomiting, Vomiting Blood, Other Genitourinary: denies: No Symptoms, Burning, Discharge, Dysuria, Flank Pain, Frequency, Hematuria, Incontinence, Lesions, Menses, Pain, Testicular Mass, Testicular Pain, Testicular Swelling, Urgency, Vaginal Bleeding, Other Breasts: denies: No Symptoms Reported, See HPI, Breast Implants, Discharge from Nipple, Lumps, Pain, Skin Changes, Other Musculoskeletal: denies: No Symptoms, Back Pain, Crepitus, Decreased ROM, Extremity Pain, Joint Pain, Joint Swelling, Muscle Pain, Muscle Cramps, Muscle Weakness, Other Integumentary: denies: No Symptoms, Blister, Bruising, Change in Color, Eczema, Erythema, Incision, Lesions, Lump, Pallor, Pruritis, Rash, Wound, Other Neurological: denies: No Symptoms, Change in LOC, Change in Speech, Confusion, Dizziness, Headache, Incoordination, Numbness, Parasthesia, Pre-Existing Deficit , Seizure, Syncope, Tremors, Unsteady Gait, Weakness, Other Endocrine: denies: No Symptoms, Excessive Sweating, Flushing, Increased Hunger, Increased Thirst, Intolerance to Cold, Intolerance to Heat, Unexplained Weight Gain, Unexplained Weight Loss, Other Hematology/Lymphatic: denies: No Symptoms, Easily Bruised, Excessive Bleeding, Swollen Glands, Other - Risk Factors Known Risk Factors: Yes: Hypertension, Smoking Vital Signs: Vital Signs Temperature 97.8 F 02/26/19 06:00 Pulse Rate 65 02/26/19 06:00 Respiratory Rate 20 02/26/19 06:00 Blood Pressure 137/78 02/26/19 06:00 O2 Sat by Pulse Oximetry (%) 95 02/26/19 00:06 Constitutional: Yes: No Distress, Calm Respiratory: Yes: Other (b/l rhonchi and mild exp wheezing) Cardiovascular: Yes: Regular Rate and Rhythm JVD: No Carotid Bruit: No Heart Sounds: Yes: S1, S2 (rrr) Edema: No Neurological: Yes: Alert, Oriented - Other Data Labs, Other Data: CBC, BMP 02/26/19 02:16 02/25/19 17:30 Troponin, BNP 02/25/19 02/25/19 02/25/19 17:30 17:30 21:35 Troponin I 0.09 H 0.10 H B-Natriuretic Peptide 765.1 H Troponin, BNP 02/25/19 02/25/19 02/25/19 17:30 17:30 21:35 Troponin I 0.09 H 0.10 H B-Natriuretic Peptide 765.1 H Laboratory Tests 02/25/19 02/25/19 02/25/19 17:30 17:30 21:35 WBC Hgb Plt Count Sodium 136 Potassium 4.9 BUN 45.4 H Creatinine 1.4 H Creatine Kinase 76 66 Troponin I 0.09 H 0.10 H B-Natriuretic Peptide 765.1 H 02/26/19 02:16 WBC 17.6 H Hgb 15.5 Plt Count 214 Sodium Potassium BUN Creatinine Creatine Kinase Troponin I B-Natriuretic Peptide NSR LAFB, no acute changes Stress Echo: Image Reviewed (mild apical ischemia 03/2018 with normal EF: degreee ischemia out of proportion to echo done 3 days prior.) Imaging - Results Chest X-ray: Image Reviewed EKG: Image Reviewed Assessment/Plan IMP: Acute exacerbation COPD 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 Repeat echo for EF 2. Equivocal TnI unlikely ACS (benign ECG, normal CK). Possible mild demand ischemia in setting of CKD And AECOPD. 3. Treatment of acute exacerbation COPD as per PMD and Pulmonary 4. Continue medical rx for presumed underlying chronic CAD: ASA 81/Statin and Metoprolol. May benefit from more B1 selective agent (Bystolic) 5. Outpatient AAA screen w/ US Will follow
[2019-02-26] MEDS ORDERED: METOPROLOL TARTRATE 25 MG TABLET (FP) PO SCH (10:00)
--- NOTE | 2019-02-26 10:00 | PN ---
Progress Note, Physician History of Present Illness: pt seen/ examined chart reviewed case discussed with pts pmd Dr. Chen feels little better no distress + dysnea- no fever / chills Elevated wbcs-- pt on prednisone as out pt per pmd denies cp. - Current Medication List Current Medications: Active Medications Acetaminophen (Tylenol -) 650 mg PO Q6H PRN PRN Reason: PAIN LEVEL 1-5 Albuterol/Ipratropium (Duoneb -) 1 amp NEB RQID [facility] Last Admin: 02/26/19 07:25 Dose: 1 amp Heparin Sodium (Porcine) (Heparin -) 5,000 unit SQ BID NADIA Lisinopril (Prinivil) 5 mg PO BID NADIA Metoprolol Tartrate (Lopressor -) 25 mg PO BID NADIA Mirtazapine (Remeron -) 15 mg PO HS NADIA Montelukast Sodium (Singulair -) 10 mg PO HS [facility] Sertraline HCl (Zoloft -) 50 mg PO AM [facility] Last Admin: 02/26/19 06:06 Dose: 50 mg - Objective Vital Signs: Vital Signs Temperature 97.8 F 02/26/19 06:00 Pulse Rate 65 02/26/19 06:00 Respiratory Rate 20 02/26/19 06:00 Blood Pressure 137/78 02/26/19 06:00 O2 Sat by Pulse Oximetry (%) 95 02/26/19 00:06 Constitutional: Yes: No Distress, Calm Eyes: Yes: Conjunctiva Clear Neck: Yes: Supple, Trachea Midline Cardiovascular: Yes: Regular Rate and Rhythm Respiratory: Yes: SOB, Wheezes Gastrointestinal: Yes: Soft Edema: No Neurological: Yes: Alert Labs: CBC, BMP 02/26/19 02:16 02/25/19 17:30 Problem List - Problems (1) COPD exacerbation Code(s): J44.1 - CHRONIC OBSTRUCTIVE PULMONARY DISEASE W (ACUTE) EXACERBATION (2) Chronic kidney disease (CKD) Code(s): N18.9 - CHRONIC KIDNEY DISEASE, UNSPECIFIED (3) Acute exacerbation of chronic obstructive pulmonary disease Code(s): J44.1 - CHRONIC OBSTRUCTIVE PULMONARY DISEASE W (ACUTE) EXACERBATION (4) Anxiety Code(s): F41.9 - ANXIETY DISORDER, UNSPECIFIED (5) Bronchiectasis Code(s): J47.9 - BRONCHIECTASIS, UNCOMPLICATED (6) Demand ischemia Code(s): I24.8 - OTHER FORMS OF ACUTE ISCHEMIC HEART DISEASE (7) Elevated troponin Code(s): R74.8 - ABNORMAL LEVELS OF OTHER SERUM ENZYMES (8) Insomnia disorder Code(s): G47.00 - INSOMNIA, UNSPECIFIED Assessment/Plan In summary -- 89 gentleman with chronic COPD, former smoker, CKD, h/o R lung mass (cavitary lesion) s/p benign bx, cardiomyopath presents with increase sob/ cough and wheezing Discussed steroids Nebulizer treatment cardiology following Pulmonary to follow cxr- no infiltrate will follow d/w RN also
[2019-02-26] MEDS ORDERED: ZOLPIDEM TARTRATE 5 MG TABLET PO PRN (10:06)
[2019-02-26] MEDS: methylPREDNISolone NA SUCC 40 MG/1 ML VIAL IVPUSH SCH ×3 (10:49→21:16)
[2019-02-26] MEDS: NEBIVOLOL 10 MG TABLET (FP) PO SCH (10:49)
[2019-02-26] MEDS: PANTOPRAZOLE 20 MG TABLET (FP) PO SCH (10:49)
[2019-02-26] MEDS: HEPARIN NA (PORCINE) 5,000 UNITS/ML 1ML VIAL SQ SCH ×2 (10:50→21:16)
[2019-02-26] MEDS: LISINOPRIL 5 MG TABLET (FP) PO SCH ×2 (10:50→21:16)
--- NOTE | 2019-02-26 12:02 | CON.PULM ---
Consult Consult Specialty:: PULMONARY Referred by:: LUIGI Reason for Consultation:: A/E COPD - History of Present Illness Chief Complaint: SOB ON EXERTION History of Present Illness: 88 WHITE MALE WITH PROGRESSIVE PEARSON OVER PAST TWO WEEKS. WAS SEEN BY PMD AND WAS PRESCRIBED ORAL STEROIDS AND AN ANTIBIOTIC ( 2 SEPARATE COURSES OVER TWO WEEKS) HIS SYMPTOMS WORSENED AND HIS CALLED EMS. HE HAS HOME O2 WHICH HE USES HS AND PRN. HE HAS A RIGHT UPPER LOBE CAVITARY LESION WHICH WAS BIOPSIED AND REVEALED A NECROTIZING GRANULOMA, HE ALSO HAS A THYROID MASS WHICH WAS ASPIRATED AND FOUND TO BE A BENIGN FOLLICULAR NODULE. HE WORKED AN [employer] AND IS A FORMER 50 PACK YEAR SMOKER. HE WAS NOT IN THE ARMED FORCES. PATIENT HAD A POSITIVE CUTURE OF ASPERGILLUS FUMIGATUS IN 03/2018. 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) Pulmonary: Yes: COPD, O2 Dependent Renal/: Yes: Renal Inusuff Psych: Yes: Bipolar, Depression Musculoskeletal: Yes: Osteoarthritis - Past Surgical History Past Surgical History: Yes: Cholecystectomy - Alcohol/Substance Use Hx Alcohol Use: No History of Substance Use: reports: None - Smoking History Smoking history: Former smoker Have you smoked in the past 12 months: No If you are a former smoker, when did you quit?: 1998 - Social History ADL: Independent History of Recent Travel: No Home Medications - Allergies Allergies/Adverse Reactions: Allergies Allergy/AdvReac Type Severity Reaction Status Date / Time No Known Allergies Allergy Verified 02/25/19 16:35 - Home Medications Home Medications: Ambulatory Orders Budesonide/Formeterol Fumarate [SYMBICORT 160/4.5mcg -] 2 inh PO BID 02/24/17 Lisinopril 5 mg PO BID 02/25/17 Metoprolol Tartrate [Lopressor -] 25 mg PO BID 02/25/17 Montelukast Na [Singulair -] 10 mg PO HS 02/25/17 Multivitamin [Poly-Vitamin] 1 each PO DAILY 04/28/17 Albuterol 0.083% Nebulizer Magi [Ventolin 0.083%] 1 neb NEB TID 04/01/18 Mirtazapine [Remeron -] 15 mg PO HS 10/29/18 Sertraline HCl 50 mg PO AM 10/29/18 Loratadine 1 tab PO DAILY 11/02/18 Family Medical History Family History: Unremarkable Review of Systems - Review of Systems Constitutional: denies: Fever Eyes: denies: Blurred Vision HENT: denies: Ear Discharge Neck: denies: Lumps Cardiovascular: reports: Shortness of Breath. denies: Chest Pain Respiratory: reports: Cough, Exercise Intolerance, SOB, SOB on Exertion. denies : Hemoptysis Gastrointestinal: denies: Abdominal Pain Genitourinary: denies: Burning Physical Exam Vital Sings: Vital Signs Temperature 97.6 F 02/26/19 10:25 Pulse Rate 73 02/26/19 10:25 Respiratory Rate 02/26/19 10:25 Blood Pressure 147/74 02/26/19 10:25 O2 Sat by Pulse Oximetry (%) 95 02/26/19 00:06 Constitutional: Yes: Calm Eyes: Yes: EOM Intact HENT: Yes: Normocephalic Neck: Yes: Trachea Midline Cardiovascular: Yes: Regular Rate and Rhythm Respiratory: Yes: Diminished Gastrointestinal: Yes: Normal Bowel Sounds Edema: No Labs: CBC, BMP 02/26/19 02:16 02/25/19 17:30 Imaging - Results Chest X-ray: Report Reviewed, Image Reviewed Cat Scan: Report Reviewed, Image Reviewed Problem List - Problems (1) COPD exacerbation Code(s): J44.1 - CHRONIC OBSTRUCTIVE PULMONARY DISEASE W (ACUTE) EXACERBATION (2) Acute hypoxemic respiratory failure Code(s): J96.01 - ACUTE RESPIRATORY FAILURE WITH HYPOXIA (3) Emphysema of lung Code(s): J43.9 - EMPHYSEMA, UNSPECIFIED (4) HTN (hypertension) Code(s): I10 - ESSENTIAL (PRIMARY) HYPERTENSION (5) Hypercapnic respiratory failure, chronic Code(s): J96.12 - CHRONIC RESPIRATORY FAILURE WITH HYPERCAPNIA (6) Pneumonia with cavity of lung Code(s): J18.9 - PNEUMONIA, UNSPECIFIED ORGANISM; J98.4 - OTHER DISORDERS OF LUNG (7) Cavitary lesion of lung Code(s): J98.4 - OTHER DISORDERS OF LUNG Assessment/Plan A/E COPD DESPITE STEROIDS AND TWO DIFFERENT COURSES OF ANTIBIOTICS A. FUMIGATUS CULTURED IN 03/2017 AND BX OF CAVITARY LESION DONE IN 2018 REVEALED A NECROTIZING GRANULOMA QUESTION IS , DO WE TREAT FOR INVASIVE ASPERGILLOSIS WITH AN ANTIFUNGAL AGENT AT THIS POINT? WILL ASK INFECTIOUS DISEASE TO RENDER AN OPINION. CONTINUE 02/BRONCHODILATORS/SPUTUM FOR FUNGAL CULTURE/CHEST PT WOULD HOLD ANTIBIOTICS AT THIS POINT GIVEN 2 WEEKS OF ANTIBIOTICS PRIOR TO HOSPITALEZATION. Brittani VIDALES MD
--- NOTE | 2019-02-26 14:00 | EKG ---
Test Reason : Blood Pressure : / mmHG Vent. Rate : 091 BPM Atrial Rate : 091 BPM P-R Int : 184 ms QRS Dur : 082 ms QT Int : 354 ms P-R-T Axes : 073 -86 053 degrees QTc Int : 435 ms SINUS RHYTHM WITH OCCASIONAL PREMATURE VENTRICULAR COMPLEXES POSSIBLE LEFT ATRIAL ENLARGEMENT LEFT ANTERIOR FASCICULAR BLOCK ABNORMAL ECG Confirmed by SWAPNA CHAPA MD ([id number]) on 02/26/2019 2:00:05 PM Referred By: Confirmed By:SWAPNA CHAPA MD
--- NOTE | 2019-02-26 14:51 | ECHO ---
Name: DIONNA, JULEINNE Exam:Adult Echocardiogram Study Date: 02/26/2019 10:52 AM Age: 89 yrs Reason For Study: LV Function Height: 67 in Weight: 154 lb BSA: 1.8 m2 MMode/2D Measurements & Calculations IVSd: 1.2 cm Ao root diam: 3.1 cm LVIDd: 3.9 cm LA dimension: 2.5 cm LVIDs: 2.8 cm LVPWd: 1.1 cm EDV(Teich): 67.2 ml LVOT diam: 2.0 cm ESV(Teich): 28.7 ml LAV (MOD-bp): 24.3 ml Doppler Measurements & Calculations MV E max carlin: 62.1 cm/sec Ao V2 max: 115.4 cm/sec MV A max carlin: 113.5 cm/sec Ao max P.3 mmHg MV E/A: 0.55 AI P1/2t: 387.2 msec MV dec time: 0.16 sec ANYI(V,D): 2.2 cm2 AI max carlin: 153.4 cm/sec LV V1 max P.5 mmHg AI max P.4 mmHg LV V1 max: 79.5 cm/sec AI dec slope: 116.0 cm/sec2 TR max carlin: 421.5 cm/sec PA V2 max: 73.3 cm/sec TR max P.1 mmHg PA max P.1 mmHg Med Peak E' Carlin: 6.5 cm/sec Med E/e': 9.5 Lat Peak E' Carlin: 6.7 cm/sec Lat E/e': 9.2 Procedure The study was technically difficult with many images being suboptimal in quality. Left Ventricle Left ventricular systolic function is grossly normal. Ejection Fraction = 55-60%. The transmitral spe ctral Doppler flow pattern is suggestive of impaired LV relaxation. Regional wall motion abnormalities liu ot be excluded due to limited visualization. Right Ventricle The right ventricle is grossly normal size. Right ventricular function cannot be assessed due to poor image quality. Atria Normal left and right atrial size and function. Mitral Valve The mitral valve is grossly normal. There is no mitral valve stenosis. There is trace mitral regurgit ation. Tricuspid Valve The tricuspid valve is normal in structure and function. There is mild tricuspid regurgitation. Right ventricular systolic pressure is elevated at >60mmHg. There is severe pulmonary hypertension. Aortic Valve There is mild aortic sclerosis.;. No hemodynamically significant valvular aortic stenosis. Trace aort ic regurgitation. Pulmonic Valve The pulmonic valve is not well seen, but is grossly normal. There is no pulmonic valvular stenosis. T race pulmonic valvular regurgitation. Great Vessels The aortic root is normal size. Pericardium/Pleura There is no pericardial effusion. Interpretation Summary The study was technically difficult with many images being suboptimal in quality. Regional wall motion abnormalities cannot be excluded due to limited visualization. Left ventricular systolic function is grossly normal. Ejection Fraction = 55-60%. There is mild aortic sclerosis.; No hemodynamically significant valvular aortic stenosis. There is mild tricuspid regurgitation. Right ventricular systolic pressure is elevated at >60mmHg. There is severe pulmonary hypertension. Right ventricular function cannot be assessed due to poor image quality. There is no pericardial effusion. MD Mathur *Sixto 02/26/2019 02:50 PM
[2019-02-26] MEDS: MONTELUKAST NA 10 MG TABLET PO SCH (21:16)
[2019-02-26] MEDS: MIRTAZAPINE 15 MG TABLET (FP) PO SCH (21:16)
[2019-02-27] MEDS: methylPREDNISolone NA SUCC 40 MG/1 ML VIAL IVPUSH SCH ×4 (02:17→21:44)
[2019-02-27] MEDS: SERTRALINE HCL 50 MG TABLET (FP) PO SCH (06:20)
[2019-02-27] MEDS: ALBUTEROL SO4 2.5/IPRATROPIUM 0.5 INH SOL 3 ML VIAL.NEB. NEB SCH ×4 (08:00→20:10)
[2019-02-27 08:37] LABS: BLOOD UREA NITROGEN 45.2 mg/dL (7-18); CALCIUM 8.5 mg/dL (8.5-10.1); CREATININE 1.5 mg/dL (0.55-1.3); POTASSIUM 5.1 mmol/L (3.5-5.1)
--- NOTE | 2019-02-27 11:03 | PN ---
Progress Note (short form) - Note Progress Note: Still with cough and PEARSON. No hemoptysis. No acute events overnight. Intake & Output 02/24/19 02/25/19 02/26/19 02/27/19 23:59 23:59 23:59 23:59 Intake Total 840 210 Balance 840 210 Weight 154 lb 4.8 oz Last Vital Signs Temp Pulse Resp BP Pulse Ox 98.4 F 86 18 153/82 95 02/27/19 09:15 02/27/19 09:15 02/27/19 09:15 02/27/19 08:09 02/27/19 09:00 Active Medications Acetaminophen (Tylenol -) 650 mg PO Q6H PRN PRN Reason: PAIN LEVEL 1-5 Albuterol/Ipratropium (Duoneb -) 1 amp NEB RQID [facility] Last Admin: 02/27/19 08:00 Dose: 1 amp Heparin Sodium (Porcine) (Heparin -) 5,000 unit SQ BID [facility] Last Admin: 02/26/19 21:16 Dose: 5,000 unit Lisinopril (Prinivil) 5 mg PO BID [facility] Last Admin: 02/26/19 21:16 Dose: 5 mg Methylprednisolone Sodium Succinate (Solu-Medrol -) 40 mg IVPUSH Q6H-IV [facility] Last Admin: 02/27/19 02:17 Dose: 40 mg Mirtazapine (Remeron -) 15 mg PO HS [facility] Last Admin: 02/26/19 21:16 Dose: 15 mg Montelukast Sodium (Singulair -) 10 mg PO HS [facility] Last Admin: 02/26/19 21:16 Dose: 10 mg Nebivolol (Bystolic -) 10 mg PO DAILY [facility] Last Admin: 02/26/19 10:49 Dose: 10 mg Pantoprazole Sodium (Protonix -) 20 mg PO DAILY [facility] Last Admin: 02/26/19 10:49 Dose: 20 mg Sertraline HCl (Zoloft -) 50 mg PO AM [facility] Last Admin: 02/27/19 06:20 Dose: 50 mg Zolpidem Tartrate (Ambien -) 5 mg PO HS PRN PRN Reason: INSOMNIA Constitutional: Yes: NAD Eyes: Yes: EOM Intact HENT: Yes: Normocephalic Neck: Yes: Trachea Midline Cardiovascular: Yes: Regular Rate and Rhythm Respiratory: Yes: Diminished, scattered rhonchi, (-) wheeze Gastrointestinal: Yes: Normal Bowel Sounds Edema: No Labs: Laboratory Results - last 24 hr 02/27/19 07:24 Sodium 136 Potassium 5.1 Chloride 101 Carbon Dioxide 26 Anion Gap 9 BUN 45.2 H Creatinine 1.5 H Est GFR (CKD-EPI)AfAm 47.83 Est GFR (CKD-EPI)NonAf 41.27 Random Glucose 146 H Calcium 8.5 Problem List - Problems (1) COPD exacerbation Code(s): J44.1 - CHRONIC OBSTRUCTIVE PULMONARY DISEASE W (ACUTE) EXACERBATION (2) Acute hypoxemic respiratory failure Code(s): J96.01 - ACUTE RESPIRATORY FAILURE WITH HYPOXIA (3) Emphysema of lung Code(s): J43.9 - EMPHYSEMA, UNSPECIFIED (4) HTN (hypertension) Code(s): I10 - ESSENTIAL (PRIMARY) HYPERTENSION (5) Hypercapnic respiratory failure, chronic Code(s): J96.12 - CHRONIC RESPIRATORY FAILURE WITH HYPERCAPNIA (6) Pneumonia with cavity of lung Code(s): J18.9 - PNEUMONIA, UNSPECIFIED ORGANISM; J98.4 - OTHER DISORDERS OF LUNG (7) Cavitary lesion of lung Code(s): J98.4 - OTHER DISORDERS OF LUNG Assessment/Plan Will order CT chest O2 as needed RIDDHI Martinez
[2019-02-27] MEDS: NEBIVOLOL 10 MG TABLET (FP) PO SCH (11:07)
[2019-02-27] MEDS: HEPARIN NA (PORCINE) 5,000 UNITS/ML 1ML VIAL SQ SCH ×2 (11:07→21:44)
[2019-02-27] MEDS: LISINOPRIL 5 MG TABLET (FP) PO SCH ×2 (11:08→21:44)
[2019-02-27] MEDS: PANTOPRAZOLE 20 MG TABLET (FP) PO SCH (11:08)
--- NOTE | 2019-02-27 11:27 | PN ---
Progress Note (short form) - Note Progress Note: s: no cp palps dizzy; still with sob Current Medications Generic Name Dose Route Start Last Admin Trade Name Freq PRN Reason Stop Dose Admin Acetaminophen 650 mg 02/26/19 00:30 Tylenol - PO Q6H PRN PAIN LEVEL 1-5 Albuterol/Ipratropium 1 amp 02/26/19 08:00 02/27/19 08:00 Duoneb - NEB 1 amp RQID NADIA Administration Heparin Sodium (Porcine) 5,000 unit 02/26/19 10:00 02/27/19 11:07 Heparin - SQ 5,000 unit BID NADIA Administration Lisinopril 5 mg 02/26/19 10:00 02/27/19 11:08 Prinivil PO 5 mg BID NADIA Administration Methylprednisolone Sodium Succinate 40 mg 02/26/19 10:15 02/27/19 11:06 Solu-Medrol - IVPUSH 40 mg Q6H-IV NADIA Administration Mirtazapine 15 mg 02/26/19 22:00 02/26/19 21:16 Remeron - PO 15 mg HS NADIA Administration Montelukast Sodium 10 mg 02/26/19 22:00 02/26/19 21:16 Singulair - PO 10 mg HS NADIA Administration Nebivolol 10 mg 02/26/19 10:30 02/27/19 11:07 Bystolic - PO 10 mg DAILY [facility] Administration Pantoprazole Sodium 20 mg 02/26/19 10:15 02/27/19 11:08 Protonix - PO 20 mg DAILY [facility] Administration Sertraline HCl 50 mg 02/26/19 07:00 02/27/19 06:20 Zoloft - PO 50 mg AM [facility]IA Administration Zolpidem Tartrate 5 mg 02/26/19 10:06 Ambien - PO HS PRN INSOMNIA Vital Signs Period Temp Pulse Resp BP Sys/[place] Pulse Ox Last 24 Hr 97.4 F-98.9 F 56-87 18-20 136-153/73-82 95-95 Constitutional: Yes: No Distress, Calm Respiratory: Yes: Other (b/l rhonchi and mild exp wheezing) Cardiovascular: Yes: Regular Rate and Rhythm JVD: No Carotid Bruit: No Heart Sounds: Yes: S1, S2 (rrr) Edema: No Neurological: Yes: Alert, Oriented no jaundice diaphoresis - Other Data Labs, Other Data: CBC, BMP 02/26/19 02:16 02/27/19 07:24 NSR LAFB, no acute changes Stress Echo: Image Reviewed (mild apical ischemia 03/2018 with normal EF: degreee ischemia out of proportion to echo done 3 days prior.) Imaging - Results Chest X-ray: Image Reviewed EKG: Image Reviewed Assessment/Plan IMP: Acute exacerbation COPD 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 echo here shows nl lvef, no severe valve dz. Echo shows severe pulm htn, RV not seen well, likely relate to copd. 2. Equivocal TnI unlikely ACS (benign ECG, normal CK). Possible mild demand ischemia in setting of CKD And AECOPD. 3. Treatment of acute exacerbation COPD as per PMD and Pulmonary 4. Continue medical rx for presumed underlying chronic CAD: ASA 81/Statin and Metoprolol. May benefit from more B1 selective agent (Bystolic) 5. Outpatient AAA screen w/ US
--- NOTE | 2019-02-27 12:29 | PN ---
Progress Note, Physician Chief Complaint: 89 year old male with PMhx of HTN, COPD ( on o2 at home), CKD, MDDs arrived to Emergency room for SOB on exertion that is getting worse, and failed out- patient treatment. Patient recent evaluation by PCP prescribed course of antibiotics ( PCN 10 days) and PO steroids (2 weeks). Patient reports that at baseline he uses 2L O2 while at home, but typically has no limitations to his ADLs and takes daily 30 min walks without difficulty. He reports that today [place] and became acutely short of breath while walking back into his home. Patient denies any chest pain, fatigue, near syncope, weakness. Patient received duonebs and steroids upon arrival by EMS. - Current Medication List Current Medications: Active Medications Acetaminophen (Tylenol -) 650 mg PO Q6H PRN PRN Reason: PAIN LEVEL 1-5 Albuterol/Ipratropium (Duoneb -) 1 amp NEB RQID [facility] Last Admin: 02/27/19 12:00 Dose: 1 amp Heparin Sodium (Porcine) (Heparin -) 5,000 unit SQ BID [facility] Last Admin: 02/27/19 11:07 Dose: 5,000 unit Lisinopril (Prinivil) 5 mg PO BID [facility] Last Admin: 02/27/19 11:08 Dose: 5 mg Methylprednisolone Sodium Succinate (Solu-Medrol -) 40 mg IVPUSH Q6H-IV [facility] Last Admin: 02/27/19 11:06 Dose: 40 mg Mirtazapine (Remeron -) 15 mg PO HS [facility] Last Admin: 02/26/19 21:16 Dose: 15 mg Montelukast Sodium (Singulair -) 10 mg PO HS [facility] Last Admin: 02/26/19 21:16 Dose: 10 mg Nebivolol (Bystolic -) 10 mg PO DAILY [facility] Last Admin: 02/27/19 11:07 Dose: 10 mg Pantoprazole Sodium (Protonix -) 20 mg PO DAILY [facility] Last Admin: 02/27/19 11:08 Dose: 20 mg Sertraline HCl (Zoloft -) 50 mg PO AM [facility] Last Admin: 02/27/19 06:20 Dose: 50 mg Zolpidem Tartrate (Ambien -) 5 mg PO HS PRN PRN Reason: INSOMNIA - Objective Vital Signs: Vital Signs Temperature 98.4 F 02/27/19 09:15 Pulse Rate 86 02/27/19 09:15 Respiratory Rate 18 02/27/19 09:15 Blood Pressure 153/82 02/27/19 08:09 O2 Sat by Pulse Oximetry (%) 95 02/27/19 09:00 Constitutional: Yes: Anxious, Mild Distress Eyes: Yes: Conjunctiva Clear, EOM Intact HENT: Yes: Atraumatic, Normocephalic Neck: Yes: Supple, Trachea Midline Cardiovascular: Yes: Regular Rate and Rhythm, S1, S2 Respiratory: Yes: Regular, CTA Bilaterally Musculoskeletal: Yes: Joint Stiffness Edema: No Peripheral Pulses WNL: No Labs: CBC, BMP 02/26/19 02:16 02/27/19 07:24 Problem List - Problems (1) COPD exacerbation Code(s): J44.1 - CHRONIC OBSTRUCTIVE PULMONARY DISEASE W (ACUTE) EXACERBATION (2) Cavitary lesion of lung Code(s): J98.4 - OTHER DISORDERS OF LUNG (3) Chronic kidney disease (CKD) Code(s): N18.9 - CHRONIC KIDNEY DISEASE, UNSPECIFIED (4) Acute diastolic (congestive) heart failure Code(s): I50.31 - ACUTE DIASTOLIC (CONGESTIVE) HEART FAILURE (5) Acute exacerbation of chronic obstructive pulmonary disease Code(s): J44.1 - CHRONIC OBSTRUCTIVE PULMONARY DISEASE W (ACUTE) EXACERBATION (6) Anxiety Code(s): F41.9 - ANXIETY DISORDER, UNSPECIFIED (7) Bronchiectasis Code(s): J47.9 - BRONCHIECTASIS, UNCOMPLICATED (8) CHF (congestive heart failure), NYHA class II Code(s): I50.9 - HEART FAILURE, UNSPECIFIED (9) Depression Code(s): F32.9 - MAJOR DEPRESSIVE DISORDER, SINGLE EPISODE, UNSPECIFIED Qualifiers: Depression Type: major depressive disorder Major depression recurrence: unspecified whether recurrent Active/Remission status: currently active Major depression episode severity: mild Qualified Code(s): F32.0 - Major depressive disorder, single episode, mild (10) Emphysema of lung Code(s): J43.9 - EMPHYSEMA, UNSPECIFIED (11) HTN (hypertension) Code(s): I10 - ESSENTIAL (PRIMARY) HYPERTENSION (12) Hypercapnic respiratory failure, chronic Code(s): J96.12 - CHRONIC RESPIRATORY FAILURE WITH HYPERCAPNIA (13) Major depress dis, severe Code(s): F32.2 - MAJOR DEPRESSV DISORD, SINGLE EPSD, SEV W/O PSYCH FEATURES (14) Non-ST elevation CO (NSTEMI) Code(s): I21.4 - NON-ST ELEVATION (NSTEMI) MYOCARDIAL INFARCTION (15) Pneumonia with cavity of lung Code(s): J18.9 - PNEUMONIA, UNSPECIFIED ORGANISM; J98.4 - OTHER DISORDERS OF LUNG (16) Renal failure Code(s): N19 - UNSPECIFIED KIDNEY FAILURE Assessment/Plan (1) COPD exacerbation Code(s): J44.1 - CHRONIC OBSTRUCTIVE PULMONARY DISEASE W (ACUTE) EXACERBATION (2) Cavitary lesion of lung Code(s): J98.4 - OTHER DISORDERS OF LUNG (3) Chronic kidney disease (CKD) Code(s): N18.9 - CHRONIC KIDNEY DISEASE, UNSPECIFIED (4) Acute diastolic (congestive) heart failure Code(s): I50.31 - ACUTE DIASTOLIC (CONGESTIVE) HEART FAILURE (5) Acute exacerbation of chronic obstructive pulmonary disease Code(s): J44.1 - CHRONIC OBSTRUCTIVE PULMONARY DISEASE W (ACUTE) EXACERBATION (6) Anxiety Code(s): F41.9 - ANXIETY DISORDER, UNSPECIFIED (7) Bronchiectasis Code(s): J47.9 - BRONCHIECTASIS, UNCOMPLICATED (8) CHF (congestive heart failure), NYHA class II Code(s): I50.9 - HEART FAILURE, UNSPECIFIED (9) Depression Code(s): F32.9 - MAJOR DEPRESSIVE DISORDER, SINGLE EPISODE, UNSPECIFIED Qualifiers: Depression Type: major depressive disorder Major depression recurrence: unspecified whether recurrent Active/Remission status: currently active Major depression episode severity: mild Qualified Code(s): F32.0 - Major depressive disorder, single episode, mild (10) Emphysema of lung Code(s): J43.9 - EMPHYSEMA, UNSPECIFIED (11) HTN (hypertension) Code(s): I10 - ESSENTIAL (PRIMARY) HYPERTENSION (12) Hypercapnic respiratory failure, chronic Code(s): J96.12 - CHRONIC RESPIRATORY FAILURE WITH HYPERCAPNIA (13) Major depress dis, severe Code(s): F32.2 - MAJOR DEPRESSV DISORD, SINGLE EPSD, SEV W/O PSYCH FEATURES (14) Non-ST elevation CO (NSTEMI) Code(s): I21.4 - NON-ST ELEVATION (NSTEMI) MYOCARDIAL INFARCTION (15) Pneumonia with cavity of lung Code(s): J18.9 - PNEUMONIA, UNSPECIFIED ORGANISM; J98.4 - OTHER DISORDERS OF LUNG (16) Renal failure Code(s): N19 - UNSPECIFIED KIDNEY FAILURE
[2019-02-27] MEDS ORDERED: FUROSEMIDE 40 MG TABLET (FP) PO ONE (13:12)
[2019-02-27] MEDS ORDERED: VANCOMYCIN 1 GRAM (PRE-DOCKED) 1,000 MG/250 ML BAG IVPB ONE (13:15)
--- NOTE | 2019-02-27 15:42 | PN ---
Progress Note, Physician History of Present Illness: Asked to evaluate this 89 y.o. male with PMH of COPD (on home O2), former smoker , CKD, HTN and Rt lung cavitary lesion (benign result on biopsy) presented with c/o worsening shortness of breath for the past 2 wks despite oral antibiotics and steroids given as outpatient. Case d/w Dr. Chen. Pt still has a productive cough (without hemoptysis) and feels he isnt getting better. At home he states he can normally walk around off O2 for long periods of time. On admission wbc was 23K but patient has been on steroids and he has been afebrile. - Current Medication List Current Medications: Active Medications Acetaminophen (Tylenol -) 650 mg PO Q6H PRN PRN Reason: PAIN LEVEL 1-5 Albuterol/Ipratropium (Duoneb -) 1 amp NEB RQID [facility] Last Admin: 02/27/19 12:00 Dose: 1 amp Heparin Sodium (Porcine) (Heparin -) 5,000 unit SQ BID [facility] Last Admin: 02/27/19 11:07 Dose: 5,000 unit Piperacillin Sod/Tazobactam (Sod 3.375 gm/ Dextrose) 50 mls @ 100 mls/hr IVPB Q8H-IV [facility]; Protocol Stop: 03/06/19 06:00 Piperacillin Sod/Tazobactam (Sod 3.375 gm/ Dextrose) 50 mls @ 100 mls/hr IVPB Q8H-IV [facility]; Protocol Stop: 02/28/19 10:29 Lisinopril (Prinivil) 5 mg PO BID [facility] Last Admin: 02/27/19 11:08 Dose: 5 mg Methylprednisolone Sodium Succinate (Solu-Medrol -) 40 mg IVPUSH Q6H-IV [facility] Last Admin: 02/27/19 11:06 Dose: 40 mg Mirtazapine (Remeron -) 15 mg PO HS [facility] Last Admin: 02/26/19 21:16 Dose: 15 mg Montelukast Sodium (Singulair -) 10 mg PO HS [facility] Last Admin: 02/26/19 21:16 Dose: 10 mg Nebivolol (Bystolic -) 10 mg PO DAILY [facility] Last Admin: 02/27/19 11:07 Dose: 10 mg Pantoprazole Sodium (Protonix -) 20 mg PO DAILY [facility] Last Admin: 02/27/19 11:08 Dose: 20 mg Sertraline HCl (Zoloft -) 50 mg PO AM [facility] Last Admin: 02/27/19 06:20 Dose: 50 mg Zolpidem Tartrate (Ambien -) 5 mg PO HS PRN PRN Reason: INSOMNIA - Objective Vital Signs: Vital Signs Temperature 98.2 F 02/27/19 14:18 Pulse Rate 67 02/27/19 14:18 Respiratory Rate 18 02/27/19 09:15 Blood Pressure 129/74 02/27/19 14:18 O2 Sat by Pulse Oximetry (%) 96 02/27/19 09:30 Labs: CBC, BMP 02/26/19 02:16 02/27/19 07:24
--- NOTE | 2019-02-27 15:48 | CON.ID ---
Consult - History of Present Illness History of Present Illness: Asked to evaluate this 89 y.o. male with PMH of COPD (on home O2), former smoker , CKD, HTN, depression and Rt lung cavitary lesion (benign result on biopsy) presented with c/o worsening shortness of breath for the past 2 wks despite oral antibiotics and steroids given as outpatient. Case d/w Dr. Chen. Pt still has a productive cough (without hemoptysis) and feels he isnt getting better. At home he states he can normally walk around off O2 for long periods of time. On admission wbc was 23K but patient has been on steroids. Otherwise he is afebrile, without any other specific complaints. 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) Pulmonary: Yes: COPD, O2 Dependent Renal/: Yes: Renal Inusuff Psych: Yes: Bipolar, Depression Musculoskeletal: Yes: Osteoarthritis - Past Surgical History Past Surgical History: Yes: Cholecystectomy - Alcohol/Substance Use Hx Alcohol Use: No History of Substance Use: reports: None - Smoking History Smoking history: Former smoker Have you smoked in the past 12 months: No If you are a former smoker, when did you quit?: 1998 - Social History ADL: Independent History of Recent Travel: No Home Medications - Allergies Allergies/Adverse Reactions: Allergies Allergy/AdvReac Type Severity Reaction Status Date / Time No Known Allergies Allergy Verified 02/25/19 16:35 - Home Medications Home Medications: Ambulatory Orders Budesonide/Formeterol Fumarate [SYMBICORT 160/4.5mcg -] 2 inh PO BID 02/24/17 Lisinopril 5 mg PO BID 02/25/17 Metoprolol Tartrate [Lopressor -] 25 mg PO BID 02/25/17 Montelukast Na [Singulair -] 10 mg PO HS 02/25/17 Multivitamin [Poly-Vitamin] 1 each PO DAILY 04/28/17 Albuterol 0.083% Nebulizer Magi [Ventolin 0.083%] 1 neb NEB TID 04/01/18 Mirtazapine [Remeron -] 15 mg PO HS 10/29/18 Sertraline HCl 50 mg PO AM 10/29/18 Loratadine 1 tab PO DAILY 11/02/18 Review of Systems - Review of Systems Constitutional: reports: No Symptoms. denies: Chills, Diaphoresis, Fever, Lethargy, Loss of Appetite, Malaise, Night Sweats, Unintentional Wgt. Loss, Weakness, Other Eyes: reports: No Symptoms. denies: Blind Spots, Blurred Vision, Double Vision , Eye Pain, Floaters, Photophobia, Recent Change in Vision, Other HENT: reports: No Symptoms. denies: Difficult Swallowing, Ear Discharge, Ear Pain, Epistaxis, Gingival Bleeding, Hearing Loss, Mouth Swelling, Nasal Congestion, Ocular Prosthesis, Throat Pain, Toothache, Ringing in Ears, Other Neck: reports: No Symptoms. denies: Decreased ROM, Lumps, Pain on Movement, Stiffness, Swollen Glands, Tenderness, Other Cardiovascular: reports: No Symptoms. denies: Chest Pain, Edema, Palpitations, Shortness of Breath, Other Respiratory: reports: Cough, SOB, SOB on Exertion Gastrointestinal: reports: No Symptoms. denies: Abdominal Pain, Bloating, Constipation, Diarrhea, Dysphagia, Indigestion, Melena, Nausea, Rectal Bleeding , Vomiting, Vomiting Blood, Other Genitourinary: reports: No Symptoms. denies: Burning, Discharge, Dysuria, Flank Pain, Frequency, Hematuria, Incontinence, Lesions, Menses, Pain, Testicular Mass, Testicular Pain, Testicular Swelling, Urgency, Vaginal Bleeding , Other Breasts: reports: No Symptoms Reported. denies: See HPI, Breast Implants, Discharge from Nipple, Lumps, Pain, Skin Changes, Other Musculoskeletal: reports: No Symptoms. denies: Back Pain, Crepitus, Decreased ROM, Extremity Pain, Joint Pain, Joint Swelling, Muscle Pain, Muscle Cramps, Muscle Weakness, Other Integumentary: reports: No Symptoms. denies: Blister, Bruising, Change in Color , Eczema, Erythema, Incision, Lesions, Lump, Pallor, Pruritis, Rash, Wound, Other Neurological: reports: No Symptoms. denies: Change in LOC, Change in Speech, Confusion, Dizziness, Headache, Incoordination, Numbness, Parasthesia, Pre- Existing Deficit, Seizure, Syncope, Tremors, Unsteady Gait, Weakness, Other Endocrine: reports: No Symptoms. denies: Excessive Sweating, Flushing, Increased Hunger, Increased Thirst, Intolerance to Cold, Intolerance to Heat, Unexplained Weight Gain, Unexplained Weight Loss, Other Hematology/Lymphatic: reports: No Symptoms. denies: Easily Bruised, Excessive Bleeding, Swollen Glands, Other Physical Exam Vital Signs: Vital Signs Temperature 98.2 F 02/27/19 14:18 Pulse Rate 67 02/27/19 14:18 Respiratory Rate 18 02/27/19 09:15 Blood Pressure 129/74 02/27/19 14:18 O2 Sat by Pulse Oximetry (%) 96 02/27/19 09:30 Constitutional: Yes: No Distress, Calm Eyes: Yes: Conjunctiva Clear, EOM Intact HENT: Yes: Atraumatic Neck: Yes: Supple, Trachea Midline Cardiovascular: Yes: Regular Rate and Rhythm Respiratory: Yes: Diminished Gastrointestinal: Yes: Normal Bowel Sounds, Soft Renal/: Yes: WNL Musculoskeletal: Yes: WNL Extremities: Yes: WNL Peripheral Pulses WNL: Yes Integumentary: Yes: WNL Neurological: Yes: Alert, Oriented Labs: CBC, BMP 02/26/19 02:16 02/27/19 07:24 Laboratory Tests 02/25/19 02/25/19 02/25/19 17:30 17:30 17:30 WBC 23.0 H RBC 5.30 Hgb 16.7 Hct 50.9 H D MCV 96.0 MCH 31.5 MCHC 32.9 RDW 15.7 Plt Count 249 MPV 8.2 Absolute Neuts (auto) 22.0 H Total Counted Neutrophils % 95.8 H D Neutrophils % (Manual) 96.0 H Band Neutrophils % 0.0 Lymphocytes % 1.2 L D Lymphocytes % (Manual) 0.0 L Monocytes % 2.6 L Monocytes % (Manual) 0 L D Eosinophils % 0.0 D Eosinophils % (Manual) 0.0 Basophils % 0.4 Basophils % (Manual) 0.0 Myelocytes % (Man) 0 Promyelocytes % (Man) 0 Blast Cells % (Manual) 0 Nucleated RBC % 0 Metamyelocytes 0 Platelet Estimate Normal Platelet Comment No clumping noted VBG pH POC VBG pCO2 POC VBG pO2 VBG HCO3 VBG O2 Sat (Radha) VBG Base Excess Sodium 136 Potassium 4.9 Chloride 101 Carbon Dioxide 27 Anion Gap 8 BUN 45.4 H Creatinine 1.4 H Est GFR (CKD-EPI)AfAm 51.99 Est GFR (CKD-EPI)NonAf 44.86 Random Glucose 123 H Lactic Acid Calcium 9.1 Total Bilirubin 1.0 AST 27 ALT 16 Alkaline Phosphatase 52 Creatine Kinase 76 Troponin I 0.09 H B-Natriuretic Peptide 765.1 H Total Protein 6.0 L Albumin 3.6 02/25/19 02/25/19 02/26/19 18:00 21:35 02:16 WBC 17.6 H RBC 4.88 Hgb 15.5 Hct 46.6 MCV 95.5 MCH 31.8 MCHC 33.3 RDW 15.5 Plt Count 214 MPV 8.2 Absolute Neuts (auto) 16.3 H Total Counted 100 Neutrophils % 92.7 H Neutrophils % (Manual) 92.0 H Band Neutrophils % 3.0 Lymphocytes % 2.7 L D Lymphocytes % (Manual) 4.0 L D Monocytes % 4.4 Monocytes % (Manual) 1 L D Eosinophils % 0.0 Eosinophils % (Manual) Basophils % 0.2 Basophils % (Manual) Myelocytes % (Man) Promyelocytes % (Man) Blast Cells % (Manual) Nucleated RBC % 0 Metamyelocytes Platelet Estimate Platelet Comment VBG pH 7.44 H POC VBG pCO2 39.6 POC VBG pO2 57.0 H VBG HCO3 26.6 VBG O2 Sat (Radha) 89.2 H VBG Base Excess 2.8 H Sodium Potassium Chloride Carbon Dioxide Anion Gap BUN Creatinine Est GFR (CKD-EPI)AfAm Est GFR (CKD-EPI)NonAf Random Glucose Lactic Acid Calcium Total Bilirubin AST ALT Alkaline Phosphatase Creatine Kinase 66 Troponin I 0.10 H B-Natriuretic Peptide Total Protein Albumin 02/26/19 02/27/19 02:16 07:24 WBC RBC Hgb Hct MCV MCH MCHC RDW Plt Count MPV Absolute Neuts (auto) Total Counted Neutrophils % Neutrophils % (Manual) Band Neutrophils % Lymphocytes % Lymphocytes % (Manual) Monocytes % Monocytes % (Manual) Eosinophils % Eosinophils % (Manual) Basophils % Basophils % (Manual) Myelocytes % (Man) Promyelocytes % (Man) Blast Cells % (Manual) Nucleated RBC % Metamyelocytes Platelet Estimate Platelet Comment VBG pH POC VBG pCO2 POC VBG pO2 VBG HCO3 VBG O2 Sat (Radha) VBG Base Excess Sodium 136 Potassium 5.1 Chloride 101 Carbon Dioxide 26 Anion Gap 9 BUN 45.2 H Creatinine 1.5 H Est GFR (CKD-EPI)AfAm 47.83 Est GFR (CKD-EPI)NonAf 41.27 Random Glucose 146 H Lactic Acid 1.6 Calcium 8.5 Total Bilirubin AST ALT Alkaline Phosphatase Creatine Kinase Troponin I B-Natriuretic Peptide Total Protein Albumin Imaging - Results Chest X-ray: Report Reviewed Cat Scan: Report Reviewed Problem List - Problems (1) Bipolar 1 disorder Code(s): F31.9 - BIPOLAR DISORDER, UNSPECIFIED (2) Cavitary lesion of lung Code(s): J98.4 - OTHER DISORDERS OF LUNG (3) Chronic kidney disease (CKD) Code(s): N18.9 - CHRONIC KIDNEY DISEASE, UNSPECIFIED (4) Acute exacerbation of chronic obstructive pulmonary disease Code(s): J44.1 - CHRONIC OBSTRUCTIVE PULMONARY DISEASE W (ACUTE) EXACERBATION (5) Anxiety Code(s): F41.9 - ANXIETY DISORDER, UNSPECIFIED (6) Depression Code(s): F32.9 - MAJOR DEPRESSIVE DISORDER, SINGLE EPISODE, UNSPECIFIED Qualifiers: Depression Type: major depressive disorder Major depression recurrence: unspecified whether recurrent Active/Remission status: currently active Major depression episode severity: mild Qualified Code(s): F32.0 - Major depressive disorder, single episode, mild (7) Emphysema of lung Code(s): J43.9 - EMPHYSEMA, UNSPECIFIED (8) HTN (hypertension) Code(s): I10 - ESSENTIAL (PRIMARY) HYPERTENSION (9) Parkinson disease Code(s): G20 - PARKINSON'S DISEASE (10) Pneumonia with cavity of lung Code(s): J18.9 - PNEUMONIA, UNSPECIFIED ORGANISM; J98.4 - OTHER DISORDERS OF LUNG (11) SOB (shortness of breath) Code(s): R06.02 - SHORTNESS OF BREATH Assessment/Plan Asked to evaluate this 89 y.o. male with PMH of COPD (on home O2), former smoker , CKD, HTN, depression and Rt lung cavitary lesion (benign result on biopsy 2018) presented with c/o worsening shortness of breath for the past 2 wks despite oral antibiotics and steroids given as outpatient Acute COPD Exacerbation Possible PNA Cavitary lung lesion -- benign biopsy COPD Chronic respiratory failure CKD Depression -- Previous micro/imaging and latest CT results reviewed, case d/w PMD -- will start on IV antibiotics, continue bronchodilaters/steroids/supplemental O2 -- collect sputum for culture -- monitor closely Will follow Thank you
[2019-02-27] MEDS ORDERED: PIPERACILLIN/TAZOBACTAM 3.375 GM VIAL IVPB ONE (16:16)
[2019-02-27] MEDS ORDERED: DEXTROSE 5%-WATER - 50 ML IVPB ONE (16:16)
[2019-02-27] MEDS: PIPERACILLIN/TAZOB 3.375 GM 3.375 GM in DEXTROSE 5%-WATER - 50 ML IVPB SCH (17:24)
[2019-02-27] MEDS ORDERED: PIPERACILLIN/TAZOB 3.375 GM 3.375 GM in DEXTROSE 5%-WATER - 50 ML IVPB SCH (18:00)
[2019-02-27] MEDS: MONTELUKAST NA 10 MG TABLET PO SCH (21:44)
[2019-02-27] MEDS: MIRTAZAPINE 15 MG TABLET (FP) PO SCH (21:44)
[2019-02-28] MEDS ORDERED: DEXTROSE 5%-WATER - 50 ML IVPB ONE ×3 (01:24→16:57)
[2019-02-28] MEDS ORDERED: PIPERACILLIN/TAZOBACTAM 3.375 GM VIAL IVPB ONE ×3 (01:24→16:57)
[2019-02-28] MEDS: PIPERACILLIN/TAZOB 3.375 GM 3.375 GM in DEXTROSE 5%-WATER - 50 ML IVPB SCH ×3 (01:55→17:27)
[2019-02-28] MEDS: methylPREDNISolone NA SUCC 40 MG/1 ML VIAL IVPUSH SCH ×4 (02:15→21:42)
[2019-02-28] MEDS: SERTRALINE HCL 50 MG TABLET (FP) PO SCH (06:10)
[2019-02-28 07:54] LABS: BASO % 0.1 % (0-2.0); HEMATOCRIT 47.2 % (35.4-49); HEMOGLOBIN 15.5 GM/dL (11.7-16.9); LYMPH % 2.1 % (8-40); MCH 31.6 pg (25.7-33.7); MCHC 32.9 g/dl (32.0-35.9); MEAN CELL VOLUME 96.1 fl (80-96); MEAN PLT VOLUME 8.4 fl (7.5-11.1); MONO % 2.6 % (3.8-10.2); NEUT % 95.2 % (42.8-82.8); PLATELET COUNT 190 K/MM3 (134-434); RBC 4.91 M/mm3 (4.00-5.60); RDW 15.8 % (11.9-15.9); WHITE BLOOD COUNT 15.1 K/mm3 (4.0-10.0)
[2019-02-28] MEDS: ALBUTEROL SO4 2.5/IPRATROPIUM 0.5 INH SOL 3 ML VIAL.NEB. NEB SCH ×4 (07:55→19:58)
[2019-02-28 08:12] LABS: BLOOD UREA NITROGEN 61.3 mg/dL (7-18); CALCIUM 8.6 mg/dL (8.5-10.1); CREATININE 1.9 mg/dL (0.55-1.3); POTASSIUM 4.6 mmol/L (3.5-5.1)
[2019-02-28] MEDS: LISINOPRIL 5 MG TABLET (FP) PO SCH ×2 (09:14→21:43)
[2019-02-28] MEDS: HEPARIN NA (PORCINE) 5,000 UNITS/ML 1ML VIAL SQ SCH ×2 (09:14→21:43)
[2019-02-28] MEDS: PANTOPRAZOLE 20 MG TABLET (FP) PO SCH (09:14)
[2019-02-28] MEDS: NEBIVOLOL 10 MG TABLET (FP) PO SCH (09:14)
--- NOTE | 2019-02-28 10:07 | PN ---
Progress Note (short form) - Note Progress Note: Still with cough and PEARSON but better today. Unable to expectorate. No hemoptysis. No acute events overnight. CT: decreased size of the RUL irregular airspace opacification / diffuse emphysema: PMD notified me that RUL has been biopsied and is (-) for malignancy and there was also a (-) PET scan. Intake & Output 02/25/19 02/26/19 02/27/19 02/28/19 23:59 23:59 23:59 23:59 Intake Total 840 1060 50 Output Total 1200 Balance 840 -140 50 Weight 154 lb 4.8 oz Last Vital Signs Temp Pulse Resp BP Pulse Ox 97.8 F 82 18 152/86 96 02/28/19 06:00 02/28/19 06:00 02/28/19 06:00 02/28/19 06:00 02/27/19 21:00 Active Medications Acetaminophen (Tylenol -) 650 mg PO Q6H PRN PRN Reason: PAIN LEVEL 1-5 Albuterol/Ipratropium (Duoneb -) 1 amp NEB RQID [facility] Last Admin: 02/28/19 07:55 Dose: 1 amp Heparin Sodium (Porcine) (Heparin -) 5,000 unit SQ BID [facility] Last Admin: 02/28/19 09:14 Dose: 5,000 unit Piperacillin Sod/Tazobactam (Sod 3.375 gm/ Dextrose) 50 mls @ 100 mls/hr IVPB Q8H-IV [facility]; Protocol Last Admin: 02/28/19 09:14 Dose: 100 mls/hr Lisinopril (Prinivil) 5 mg PO BID [facility] Last Admin: 02/28/19 09:14 Dose: 5 mg Methylprednisolone Sodium Succinate (Solu-Medrol -) 40 mg IVPUSH Q6H-IV [facility] Last Admin: 02/28/19 09:14 Dose: 40 mg Mirtazapine (Remeron -) 15 mg PO HS [facility] Last Admin: 02/27/19 21:44 Dose: 15 mg Montelukast Sodium (Singulair -) 10 mg PO HS [facility] Last Admin: 02/27/19 21:44 Dose: 10 mg Nebivolol (Bystolic -) 10 mg PO DAILY [facility] Last Admin: 02/28/19 09:14 Dose: 10 mg Pantoprazole Sodium (Protonix -) 20 mg PO DAILY [facility] Last Admin: 02/28/19 09:14 Dose: 20 mg Sertraline HCl (Zoloft -) 50 mg PO AM [facility] Last Admin: 02/28/19 06:10 Dose: 50 mg Zolpidem Tartrate (Ambien -) 5 mg PO HS PRN PRN Reason: INSOMNIA Constitutional: Yes: NAD Eyes: Yes: EOM Intact HENT: Yes: Normocephalic Neck: Yes: Trachea Midline Cardiovascular: Yes: Regular Rate and Rhythm Respiratory: Yes: Diminished, scattered rhonchi, (-) wheeze Gastrointestinal: Yes: Normal Bowel Sounds Edema: No Labs: Laboratory Results - last 24 hr 02/28/19 02/28/19 06:56 06:58 WBC 15.1 H RBC 4.91 Hgb 15.5 Hct 47.2 MCV 96.1 H MCH 31.6 MCHC 32.9 RDW 15.8 Plt Count 190 MPV 8.4 Absolute Neuts (auto) 14.4 H Neutrophils % 95.2 H Lymphocytes % 2.1 L D Monocytes % 2.6 L Eosinophils % 0.0 Basophils % 0.1 Nucleated RBC % 0 Sodium 137 Potassium 4.6 Chloride 100 Carbon Dioxide 29 Anion Gap 8 BUN 61.3 H Creatinine 1.9 H Est GFR (CKD-EPI)AfAm 35.94 Est GFR (CKD-EPI)NonAf 31.01 Random Glucose 127 H Calcium 8.6 Problem List - Problems (1) COPD exacerbation Code(s): J44.1 - CHRONIC OBSTRUCTIVE PULMONARY DISEASE W (ACUTE) EXACERBATION (2) Acute hypoxemic respiratory failure Code(s): J96.01 - ACUTE RESPIRATORY FAILURE WITH HYPOXIA (3) Emphysema of lung Code(s): J43.9 - EMPHYSEMA, UNSPECIFIED (4) HTN (hypertension) Code(s): I10 - ESSENTIAL (PRIMARY) HYPERTENSION (5) Hypercapnic respiratory failure, chronic Code(s): J96.12 - CHRONIC RESPIRATORY FAILURE WITH HYPERCAPNIA (6) Pneumonia with cavity of lung Code(s): J18.9 - PNEUMONIA, UNSPECIFIED ORGANISM; J98.4 - OTHER DISORDERS OF LUNG (7) Cavitary lesion of lung Code(s): J98.4 - OTHER DISORDERS OF LUNG Assessment/Plan ABX per ID O2 as needed BD TX Medrol Singulalele Martinez
[2019-02-28 10:33] LABS: ANISOCYTOSIS 1+; MACROCYTOSIS 0; OVALOCYTE 1+; PLATELET ESTIMATE NORMAL; TEAR DROP CELLS 1+
--- NOTE | 2019-02-28 10:43 | PN ---
Progress Note (short form) - Note Progress Note: s: no cp palps dizzy; still with sob but better today Current Medications Generic Name Dose Route Start Last Admin Trade Name Freq PRN Reason Stop Dose Admin Acetaminophen 650 mg 02/26/19 00:30 Tylenol - PO Q6H PRN PAIN LEVEL 1-5 Albuterol/Ipratropium 1 amp 02/26/19 08:00 02/28/19 07:55 Duoneb - NEB 1 amp RQID NADIA Administration Heparin Sodium (Porcine) 5,000 unit 02/26/19 10:00 02/28/19 09:14 Heparin - SQ 5,000 unit BID NADIA Administration Piperacillin Sod/Tazobactam 50 mls @ 100 mls/hr 02/27/19 18:00 02/28/19 09:14 Sod 3.375 gm/ Dextrose IVPB 100 mls/hr Q8H-IV NADIA Administration Protocol Lisinopril 5 mg 02/26/19 10:00 02/28/19 09:14 Prinivil PO 5 mg BID NADAI Administration Methylprednisolone Sodium Succinate 40 mg 02/26/19 10:15 02/28/19 09:14 Solu-Medrol - IVPUSH 40 mg Q6H-IV NADIA Administration Mirtazapine 15 mg 02/26/19 22:00 02/27/19 21:44 Remeron - PO 15 mg HS NADIA Administration Montelukast Sodium 10 mg 02/26/19 22:00 02/27/19 21:44 Singulair - PO 10 mg HS NADIA Administration Nebivolol 10 mg 02/26/19 10:30 02/28/19 09:14 Bystolic - PO 10 mg DAILY NADIA Administration Pantoprazole Sodium 20 mg 02/26/19 10:15 02/28/19 09:14 Protonix - PO 20 mg DAILY NADIA Administration Sertraline HCl 50 mg 02/26/19 07:00 02/28/19 06:10 Zoloft - PO 50 mg AM NADIA Administration Zolpidem Tartrate 5 mg 02/26/19 10:06 Ambien - PO HS PRN INSOMNIA Vital Signs Period Temp Pulse Resp BP Sys/[place] Pulse Ox Last 24 Hr 97.8 F-98.2 F 67-91 18-20 120-152/64-86 96-97 Constitutional: Yes: No Distress, Calm Respiratory: Yes: Other (b/l rhonchi and mild exp wheezing) Cardiovascular: Yes: Regular Rate and Rhythm JVD: No Carotid Bruit: No Heart Sounds: Yes: S1, S2 (rrr) Edema: No Neurological: Yes: Alert, Oriented no jaundice diaphoresis - Other Data Labs, Other Data: CBC, BMP 02/28/19 06:58 02/28/19 06:56 NSR LAFB, no acute changes Stress Echo: Image Reviewed (mild apical ischemia 03/2018 with normal EF: degreee ischemia out of proportion to echo done 3 days prior.) Imaging - Results Chest X-ray: Image Reviewed EKG: Image Reviewed Assessment/Plan IMP: Acute exacerbation COPD 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 echo here shows nl lvef, no severe valve dz. Echo shows severe pulm htn, RV not seen well, likely relate to copd. 2. Equivocal TnI unlikely ACS (benign ECG, normal CK). Possible mild demand ischemia in setting of CKD And AECOPD. 3. Treatment of acute exacerbation COPD as per PMD and Pulmonary 4. Continue medical rx for presumed underlying chronic CAD: ASA 81/Statin and Metoprolol. May benefit from more B1 selective agent (Bystolic) 5. Outpatient AAA screen w/ US
--- NOTE | 2019-02-28 11:11 | PN ---
Progress Note, Physician Chief Complaint: Pt is relatively better Mild SOB with cough and Sputum No Fever - Current Medication List Current Medications: Active Medications Acetaminophen (Tylenol -) 650 mg PO Q6H PRN PRN Reason: PAIN LEVEL 1-5 Albuterol/Ipratropium (Duoneb -) 1 amp NEB RQID [facility] Last Admin: 02/28/19 07:55 Dose: 1 amp Heparin Sodium (Porcine) (Heparin -) 5,000 unit SQ BID [facility] Last Admin: 02/28/19 09:14 Dose: 5,000 unit Piperacillin Sod/Tazobactam (Sod 3.375 gm/ Dextrose) 50 mls @ 100 mls/hr IVPB Q8H-IV [facility]; Protocol Last Admin: 02/28/19 09:14 Dose: 100 mls/hr Lisinopril (Prinivil) 5 mg PO BID [facility] Last Admin: 02/28/19 09:14 Dose: 5 mg Methylprednisolone Sodium Succinate (Solu-Medrol -) 40 mg IVPUSH Q6H-IV [facility] Last Admin: 02/28/19 09:14 Dose: 40 mg Mirtazapine (Remeron -) 15 mg PO HS [facility] Last Admin: 02/27/19 21:44 Dose: 15 mg Montelukast Sodium (Singulair -) 10 mg PO HS [facility] Last Admin: 02/27/19 21:44 Dose: 10 mg Nebivolol (Bystolic -) 10 mg PO DAILY [facility] Last Admin: 02/28/19 09:14 Dose: 10 mg Pantoprazole Sodium (Protonix -) 20 mg PO DAILY [facility] Last Admin: 02/28/19 09:14 Dose: 20 mg Sertraline HCl (Zoloft -) 50 mg PO AM [facility] Last Admin: 02/28/19 06:10 Dose: 50 mg Zolpidem Tartrate (Ambien -) 5 mg PO HS PRN PRN Reason: INSOMNIA - Objective Vital Signs: Vital Signs Temperature 97.8 F 02/28/19 06:00 Pulse Rate 91 H 02/28/19 10:00 Respiratory Rate 20 02/28/19 10:00 Blood Pressure 137/77 02/28/19 10:00 O2 Sat by Pulse Oximetry (%) 97 02/28/19 09:00 Constitutional: Yes: Anxious, Mild Distress Eyes: Yes: Conjunctiva Clear, EOM Intact HENT: Yes: Atraumatic, Normocephalic Neck: Yes: Supple, Trachea Midline Cardiovascular: Yes: Regular Rate and Rhythm Respiratory: Yes: Regular, SOB on Exertion Gastrointestinal: Yes: Normal Bowel Sounds, Soft Musculoskeletal: Yes: Joint Stiffness Edema: No Labs: CBC, BMP 02/28/19 06:58 02/28/19 06:56 Problem List - Problems (1) COPD exacerbation Code(s): J44.1 - CHRONIC OBSTRUCTIVE PULMONARY DISEASE W (ACUTE) EXACERBATION (2) Cavitary lesion of lung Code(s): J98.4 - OTHER DISORDERS OF LUNG (3) Chronic kidney disease (CKD) Code(s): N18.9 - CHRONIC KIDNEY DISEASE, UNSPECIFIED (4) Acute diastolic (congestive) heart failure Code(s): I50.31 - ACUTE DIASTOLIC (CONGESTIVE) HEART FAILURE (5) Acute exacerbation of chronic obstructive pulmonary disease Code(s): J44.1 - CHRONIC OBSTRUCTIVE PULMONARY DISEASE W (ACUTE) EXACERBATION (6) Anxiety Code(s): F41.9 - ANXIETY DISORDER, UNSPECIFIED (7) Bronchiectasis Code(s): J47.9 - BRONCHIECTASIS, UNCOMPLICATED (8) CHF (congestive heart failure), NYHA class II Code(s): I50.9 - HEART FAILURE, UNSPECIFIED (9) Depression Code(s): F32.9 - MAJOR DEPRESSIVE DISORDER, SINGLE EPISODE, UNSPECIFIED Qualifiers: Depression Type: major depressive disorder Major depression recurrence: unspecified whether recurrent Active/Remission status: currently active Major depression episode severity: mild Qualified Code(s): F32.0 - Major depressive disorder, single episode, mild (10) Emphysema of lung Code(s): J43.9 - EMPHYSEMA, UNSPECIFIED (11) HTN (hypertension) Code(s): I10 - ESSENTIAL (PRIMARY) HYPERTENSION (12) Hypercapnic respiratory failure, chronic Code(s): J96.12 - CHRONIC RESPIRATORY FAILURE WITH HYPERCAPNIA (13) Major depress dis, severe Code(s): F32.2 - MAJOR DEPRESSV DISORD, SINGLE EPSD, SEV W/O PSYCH FEATURES (14) Non-ST elevation VA (NSTEMI) Code(s): I21.4 - NON-ST ELEVATION (NSTEMI) MYOCARDIAL INFARCTION (15) Pneumonia with cavity of lung Code(s): J18.9 - PNEUMONIA, UNSPECIFIED ORGANISM; J98.4 - OTHER DISORDERS OF LUNG (16) Renal failure Code(s): N19 - UNSPECIFIED KIDNEY FAILURE Assessment/Plan (1) COPD exacerbation Code(s): J44.1 - CHRONIC OBSTRUCTIVE PULMONARY DISEASE W (ACUTE) EXACERBATION (2) Cavitary lesion of lung Code(s): J98.4 - OTHER DISORDERS OF LUNG (3) Chronic kidney disease (CKD) Code(s): N18.9 - CHRONIC KIDNEY DISEASE, UNSPECIFIED (4) Acute diastolic (congestive) heart failure Code(s): I50.31 - ACUTE DIASTOLIC (CONGESTIVE) HEART FAILURE (5) Acute exacerbation of chronic obstructive pulmonary disease Code(s): J44.1 - CHRONIC OBSTRUCTIVE PULMONARY DISEASE W (ACUTE) EXACERBATION (6) Anxiety Code(s): F41.9 - ANXIETY DISORDER, UNSPECIFIED (7) Bronchiectasis Code(s): J47.9 - BRONCHIECTASIS, UNCOMPLICATED (8) CHF (congestive heart failure), NYHA class II Code(s): I50.9 - HEART FAILURE, UNSPECIFIED (9) Depression Code(s): F32.9 - MAJOR DEPRESSIVE DISORDER, SINGLE EPISODE, UNSPECIFIED Qualifiers: Depression Type: major depressive disorder Major depression recurrence: unspecified whether recurrent Active/Remission status: currently active Major depression episode severity: mild Qualified Code(s): F32.0 - Major depressive disorder, single episode, mild (10) Emphysema of lung Code(s): J43.9 - EMPHYSEMA, UNSPECIFIED (11) HTN (hypertension) Code(s): I10 - ESSENTIAL (PRIMARY) HYPERTENSION (12) Hypercapnic respiratory failure, chronic Code(s): J96.12 - CHRONIC RESPIRATORY FAILURE WITH HYPERCAPNIA (13) Major depress dis, severe Code(s): F32.2 - MAJOR DEPRESSV DISORD, SINGLE EPSD, SEV W/O PSYCH FEATURES (14) Non-ST elevation VA (NSTEMI) Code(s): I21.4 - NON-ST ELEVATION (NSTEMI) MYOCARDIAL INFARCTION (15) Pneumonia with cavity of lung Code(s): J18.9 - PNEUMONIA, UNSPECIFIED ORGANISM; J98.4 - OTHER DISORDERS OF LUNG (16) Renal failure Code(s): N19 - UNSPECIFIED KIDNEY FAILURE IV antibiotics Pul and cardiology FU noted
--- NOTE | 2019-02-28 17:48 | PN ---
Progress Note, Physician History of Present Illness: Pt states he is feeling a bit better today. Was able to shave himself in the bathroom without the O2 on. Has cough but unable to bring up sputum. - Current Medication List Current Medications: Active Medications Acetaminophen (Tylenol -) 650 mg PO Q6H PRN PRN Reason: PAIN LEVEL 1-5 Albuterol/Ipratropium (Duoneb -) 1 amp NEB RQID [facility] Last Admin: 02/28/19 15:35 Dose: 1 amp Heparin Sodium (Porcine) (Heparin -) 5,000 unit SQ BID [facility] Last Admin: 02/28/19 09:14 Dose: 5,000 unit Piperacillin Sod/Tazobactam (Sod 3.375 gm/ Dextrose) 50 mls @ 100 mls/hr IVPB Q8H-IV [facility]; Protocol Last Admin: 02/28/19 17:27 Dose: 100 mls/hr Lisinopril (Prinivil) 5 mg PO BID [facility] Last Admin: 02/28/19 09:14 Dose: 5 mg Methylprednisolone Sodium Succinate (Solu-Medrol -) 40 mg IVPUSH Q6H-IV [facility] Last Admin: 02/28/19 14:28 Dose: 40 mg Mirtazapine (Remeron -) 15 mg PO HS [facility] Last Admin: 02/27/19 21:44 Dose: 15 mg Montelukast Sodium (Singulair -) 10 mg PO HS [facility] Last Admin: 02/27/19 21:44 Dose: 10 mg Nebivolol (Bystolic -) 10 mg PO DAILY [facility] Last Admin: 02/28/19 09:14 Dose: 10 mg Pantoprazole Sodium (Protonix -) 20 mg PO DAILY [facility] Last Admin: 02/28/19 09:14 Dose: 20 mg Sertraline HCl (Zoloft -) 50 mg PO AM [facility] Last Admin: 02/28/19 06:10 Dose: 50 mg Zolpidem Tartrate (Ambien -) 5 mg PO HS PRN PRN Reason: INSOMNIA - Objective Vital Signs: Vital Signs Temperature 98.9 F 02/28/19 13:57 Pulse Rate 84 02/28/19 13:57 Respiratory Rate 20 02/28/19 10:00 Blood Pressure 139/73 02/28/19 13:57 O2 Sat by Pulse Oximetry (%) 97 02/28/19 09:00 Constitutional: Yes: No Distress Eyes: Yes: Conjunctiva Clear Cardiovascular: Yes: Regular Rate and Rhythm Respiratory: Yes: On Nasal O2, Wheezes Gastrointestinal: Yes: Normal Bowel Sounds, Soft Genitourinary: Yes: WNL Peripheral Pulses WNL: Yes Neurological: Yes: Alert, Oriented Labs: CBC, BMP 02/28/19 06:58 02/28/19 06:56 Abnormal Lab Results 02/28/19 02/28/19 06:56 06:58 WBC 15.1 H MCV 96.1 H Absolute Neuts (auto) 14.4 H Neutrophils % 95.2 H Neutrophils % (Manual) 94.0 H Lymphocytes % 2.1 L D Lymphocytes % (Manual) 2.0 L D Monocytes % 2.6 L Monocytes % (Manual) 2 L D BUN 61.3 H Creatinine 1.9 H Random Glucose 127 H Problem List - Problems (1) Bipolar 1 disorder Code(s): F31.9 - BIPOLAR DISORDER, UNSPECIFIED (2) Cavitary lesion of lung Code(s): J98.4 - OTHER DISORDERS OF LUNG (3) Chronic kidney disease (CKD) Code(s): N18.9 - CHRONIC KIDNEY DISEASE, UNSPECIFIED (4) Acute exacerbation of chronic obstructive pulmonary disease Code(s): J44.1 - CHRONIC OBSTRUCTIVE PULMONARY DISEASE W (ACUTE) EXACERBATION (5) Anxiety Code(s): F41.9 - ANXIETY DISORDER, UNSPECIFIED (6) Depression Code(s): F32.9 - MAJOR DEPRESSIVE DISORDER, SINGLE EPISODE, UNSPECIFIED Qualifiers: Depression Type: major depressive disorder Major depression recurrence: unspecified whether recurrent Active/Remission status: currently active Major depression episode severity: mild Qualified Code(s): F32.0 - Major depressive disorder, single episode, mild (7) Emphysema of lung Code(s): J43.9 - EMPHYSEMA, UNSPECIFIED (8) HTN (hypertension) Code(s): I10 - ESSENTIAL (PRIMARY) HYPERTENSION (9) Parkinson disease Code(s): G20 - PARKINSON'S DISEASE (10) Pneumonia with cavity of lung Code(s): J18.9 - PNEUMONIA, UNSPECIFIED ORGANISM; J98.4 - OTHER DISORDERS OF LUNG (11) SOB (shortness of breath) Code(s): R06.02 - SHORTNESS OF BREATH Assessment/Plan Acute COPD Exacerbation Possible PNA lung lesion -- benign biopsy COPD Chronic respiratory failure CKD Depression -- Pt feeling less SOB today, wbc trending down, remains afebrile -- continue antibiotics, bronchodilators, on steroids -- monitor for continued improvement in symptoms
[2019-02-28] MEDS: MIRTAZAPINE 15 MG TABLET (FP) PO SCH (21:43)
[2019-02-28] MEDS: MONTELUKAST NA 10 MG TABLET PO SCH (21:43)
[2019-03-01] MEDS ORDERED: PIPERACILLIN/TAZOBACTAM 3.375 GM VIAL IVPB ONE ×3 (02:59→16:22)
[2019-03-01] MEDS ORDERED: DEXTROSE 5%-WATER - 50 ML IVPB ONE ×3 (03:00→16:22)
[2019-03-01] MEDS: methylPREDNISolone NA SUCC 40 MG/1 ML VIAL IVPUSH SCH ×2 (03:07→09:22)
[2019-03-01] MEDS: PIPERACILLIN/TAZOB 3.375 GM 3.375 GM in DEXTROSE 5%-WATER - 50 ML IVPB SCH ×3 (03:08→17:22)
[2019-03-01] MEDS: SERTRALINE HCL 50 MG TABLET (FP) PO SCH (06:01)
[2019-03-01 07:41] LABS: BASO % 0.1 % (0-2.0); HEMOGLOBIN 15.2 GM/dL (11.7-16.9); LYMPH % 1.6 % (8-40); MCH 31.7 pg (25.7-33.7); MEAN CELL VOLUME 96.1 fl (80-96); MEAN PLT VOLUME 8.4 fl (7.5-11.1); MONO % 1.8 % (3.8-10.2); NEUT % 96.5 % (42.8-82.8); PLATELET COUNT 183 K/MM3 (134-434); RBC 4.79 M/mm3 (4.00-5.60); RDW 15.9 % (11.9-15.9); WHITE BLOOD COUNT 15.6 K/mm3 (4.0-10.0)
[2019-03-01 08:03] LABS: BLOOD UREA NITROGEN 62.8 mg/dL (7-18); CALCIUM 8.6 mg/dL (8.5-10.1); CREATININE 1.8 mg/dL (0.55-1.3); POTASSIUM 4.8 mmol/L (3.5-5.1)
[2019-03-01] MEDS: ALBUTEROL SO4 2.5/IPRATROPIUM 0.5 INH SOL 3 ML VIAL.NEB. NEB SCH ×4 (08:03→20:10)
[2019-03-01] MEDS: PANTOPRAZOLE 20 MG TABLET (FP) PO SCH (09:22)
[2019-03-01] MEDS: LISINOPRIL 5 MG TABLET (FP) PO SCH ×2 (09:22→21:27)
[2019-03-01] MEDS: HEPARIN NA (PORCINE) 5,000 UNITS/ML 1ML VIAL SQ SCH ×2 (09:22→21:27)
[2019-03-01] MEDS: NEBIVOLOL 10 MG TABLET (FP) PO SCH (09:22)
--- NOTE | 2019-03-01 09:56 | PN ---
Progress Note (short form) - Note Progress Note: Continues to slowly improve. No hemoptysis. No acute events overnight. CT: decreased size of the RUL irregular airspace opacification / diffuse emphysema: PMD notified me that RUL has been biopsied and is (-) for malignancy and there was also a (-) PET scan. Intake & Output 02/26/19 02/27/19 02/28/19 03/01/19 23:59 23:59 23:59 23:59 Intake Total 840 1060 1030 400 Output Total 1200 Balance 840 -140 1030 400 Last Vital Signs Temp Pulse Resp BP Pulse Ox 97.2 F L 64 16 146/63 97 03/01/19 07:57 03/01/19 07:57 03/01/19 07:57 03/01/19 07:57 02/28/19 21:00 Active Medications Acetaminophen (Tylenol -) 650 mg PO Q6H PRN PRN Reason: PAIN LEVEL 1-5 Albuterol/Ipratropium (Duoneb -) 1 amp NEB RQID [facility] Last Admin: 03/01/19 08:03 Dose: 1 amp Heparin Sodium (Porcine) (Heparin -) 5,000 unit SQ BID [facility] Last Admin: 03/01/19 09:22 Dose: 5,000 unit Piperacillin Sod/Tazobactam (Sod 3.375 gm/ Dextrose) 50 mls @ 100 mls/hr IVPB Q8H-IV [facility]; Protocol Last Admin: 03/01/19 09:22 Dose: 100 mls/hr Lisinopril (Prinivil) 5 mg PO BID [facility] Last Admin: 03/01/19 09:22 Dose: 5 mg Methylprednisolone Sodium Succinate (Solu-Medrol -) 40 mg IVPUSH Q6H-IV [facility] Last Admin: 03/01/19 09:22 Dose: 40 mg Mirtazapine (Remeron -) 15 mg PO HS [facility] Last Admin: 02/28/19 21:43 Dose: 15 mg Montelukast Sodium (Singulair -) 10 mg PO HS [facility] Last Admin: 02/28/19 21:43 Dose: 10 mg Nebivolol (Bystolic -) 10 mg PO DAILY [facility] Last Admin: 03/01/19 09:22 Dose: 10 mg Pantoprazole Sodium (Protonix -) 20 mg PO DAILY [facility] Last Admin: 03/01/19 09:22 Dose: 20 mg Sertraline HCl (Zoloft -) 50 mg PO AM [facility] Last Admin: 03/01/19 06:01 Dose: 50 mg Zolpidem Tartrate (Ambien -) 5 mg PO HS PRN PRN Reason: INSOMNIA Last Admin: 03/01/19 00:08 Dose: 5 mg Constitutional: Yes: NAD Eyes: Yes: EOM Intact HENT: Yes: Normocephalic Neck: Yes: Trachea Midline Cardiovascular: Yes: Regular Rate and Rhythm Respiratory: Yes: Diminished, scattered rhonchi, (-) wheeze Gastrointestinal: Yes: Normal Bowel Sounds Edema: No Labs: Laboratory Results - last 24 hr 02/28/19 03/01/19 03/01/19 06:58 07:10 07:10 WBC 15.6 H RBC 4.79 Hgb 15.2 Hct 46.0 MCV 96.1 H MCH 31.7 MCHC 33.0 RDW 15.9 Plt Count 183 MPV 8.4 Absolute Neuts (auto) 15.1 H Neutrophils % 96.5 H Neutrophils % (Manual) 94.0 H Band Neutrophils % 0.0 Lymphocytes % 1.6 L D Lymphocytes % (Manual) 2.0 L D Monocytes % 1.8 L Monocytes % (Manual) 2 L D Eosinophils % 0.0 Eosinophils % (Manual) 0.0 Basophils % 0.1 Basophils % (Manual) 0.0 Myelocytes % (Man) 0 Promyelocytes % (Man) 0 Blast Cells % (Manual) 0 Nucleated RBC % 0 Metamyelocytes 0 Hypochromia 0 Platelet Estimate Normal Platelet Comment Present Polychromasia 0 Poikilocytosis 1+ Anisocytosis 1+ Microcytosis 1+ Macrocytosis 0 Tear Drop Cells 1+ Ovalocytes 1+ Foreign Cells 1+ Sodium 136 Potassium 4.8 Chloride 101 Carbon Dioxide 28 Anion Gap 7 L BUN 62.8 H Creatinine 1.8 H Est GFR (CKD-EPI)AfAm 38.37 Est GFR (CKD-EPI)NonAf 33.10 Random Glucose 127 H Calcium 8.6 Problem List - Problems (1) COPD exacerbation Code(s): J44.1 - CHRONIC OBSTRUCTIVE PULMONARY DISEASE W (ACUTE) EXACERBATION (2) Acute hypoxemic respiratory failure Code(s): J96.01 - ACUTE RESPIRATORY FAILURE WITH HYPOXIA (3) Emphysema of lung Code(s): J43.9 - EMPHYSEMA, UNSPECIFIED (4) HTN (hypertension) Code(s): I10 - ESSENTIAL (PRIMARY) HYPERTENSION (5) Hypercapnic respiratory failure, chronic Code(s): J96.12 - CHRONIC RESPIRATORY FAILURE WITH HYPERCAPNIA (6) Pneumonia with cavity of lung Code(s): J18.9 - PNEUMONIA, UNSPECIFIED ORGANISM; J98.4 - OTHER DISORDERS OF LUNG (7) Cavitary lesion of lung Code(s): J98.4 - OTHER DISORDERS OF LUNG Assessment/Plan ABX per ID O2 as needed BD TX Change to Prednisone 40mg PO OD Singulair Dr Martinez
[2019-03-01] MEDS: predniSONE 20 MG TABLET (UD) PO SCH (10:20)
[2019-03-01 11:02] LABS: PLATELET ESTIMATE NORMAL
--- NOTE | 2019-03-01 11:21 | PN ---
Progress Note, Physician - Current Medication List Current Medications: Active Medications Acetaminophen (Tylenol -) 650 mg PO Q6H PRN PRN Reason: PAIN LEVEL 1-5 Albuterol/Ipratropium (Duoneb -) 1 amp NEB RQID [facility] Last Admin: 03/01/19 08:03 Dose: 1 amp Heparin Sodium (Porcine) (Heparin -) 5,000 unit SQ BID [facility] Last Admin: 03/01/19 09:22 Dose: 5,000 unit Piperacillin Sod/Tazobactam (Sod 3.375 gm/ Dextrose) 50 mls @ 100 mls/hr IVPB Q8H-IV [facility]; Protocol Last Admin: 03/01/19 09:22 Dose: 100 mls/hr Lisinopril (Prinivil) 5 mg PO BID [facility] Last Admin: 03/01/19 09:22 Dose: 5 mg Mirtazapine (Remeron -) 15 mg PO HS [facility] Last Admin: 02/28/19 21:43 Dose: 15 mg Montelukast Sodium (Singulair -) 10 mg PO HS [facility] Last Admin: 02/28/19 21:43 Dose: 10 mg Nebivolol (Bystolic -) 10 mg PO DAILY [facility] Last Admin: 03/01/19 09:22 Dose: 10 mg Pantoprazole Sodium (Protonix -) 20 mg PO DAILY [facility] Last Admin: 03/01/19 09:22 Dose: 20 mg Prednisone (Deltasone -) 40 mg PO DAILY [facility] Last Admin: 03/01/19 10:20 Dose: 40 mg Sertraline HCl (Zoloft -) 50 mg PO AM [facility] Last Admin: 03/01/19 06:01 Dose: 50 mg - Objective Vital Signs: Vital Signs Temperature 97.2 F L 03/01/19 07:57 Pulse Rate 64 03/01/19 07:57 Respiratory Rate 16 03/01/19 07:57 Blood Pressure 146/63 03/01/19 07:57 O2 Sat by Pulse Oximetry (%) 97 02/28/19 21:00 Labs: CBC, BMP 03/01/19 07:10 03/01/19 07:10
--- NOTE | 2019-03-01 12:15 | PN ---
Progress Note (short form) - Note Progress Note: pt seen/ examined chart reviewed awake/sitting in chair +ve sob denies cp all f/u noted and d/w Dr. Clemente also Vital Signs Temp 97.2 F L 03/01/19 07:57 Pulse 64 03/01/19 07:57 Resp 16 03/01/19 07:57 BP 146/63 03/01/19 07:57 Pulse Ox 97 02/28/19 21:00 Intake & Output 02/28/19 03/01/19 03/01/19 23:59 11:59 23:59 Intake Total 740 400 Balance 740 400 Intake: IVPB 110 50 Oral 630 350 Other: Voiding Method Toilet Toilet # Unmeasured Voids Void 3 Bowel Movement No # Bowel Movements 2 Active Medications Acetaminophen (Tylenol -) 650 mg PO Q6H PRN PRN Reason: PAIN LEVEL 1-5 Albuterol/Ipratropium (Duoneb -) 1 amp NEB RQID [facility] Last Admin: 03/01/19 08:03 Dose: 1 amp Heparin Sodium (Porcine) (Heparin -) 5,000 unit SQ BID [facility] Last Admin: 03/01/19 09:22 Dose: 5,000 unit Piperacillin Sod/Tazobactam (Sod 3.375 gm/ Dextrose) 50 mls @ 100 mls/hr IVPB Q8H-IV [facility]; Protocol Last Admin: 03/01/19 09:22 Dose: 100 mls/hr Lisinopril (Prinivil) 5 mg PO BID [facility] Last Admin: 03/01/19 09:22 Dose: 5 mg Mirtazapine (Remeron -) 15 mg PO HS [facility] Last Admin: 02/28/19 21:43 Dose: 15 mg Montelukast Sodium (Singulair -) 10 mg PO HS [facility] Last Admin: 02/28/19 21:43 Dose: 10 mg Nebivolol (Bystolic -) 10 mg PO DAILY [facility] Last Admin: 03/01/19 09:22 Dose: 10 mg Pantoprazole Sodium (Protonix -) 20 mg PO DAILY [facility] Last Admin: 03/01/19 09:22 Dose: 20 mg Prednisone (Deltasone -) 40 mg PO DAILY [facility] Last Admin: 03/01/19 10:20 Dose: 40 mg Sertraline HCl (Zoloft -) 50 mg PO AM [facility] Last Admin: 03/01/19 06:01 Dose: 50 mg CBC, BMP 03/01/19 07:10 03/01/19 07:10 Physical Exam Constitutional: Yes: No Distress, Calm and comfortable Eyes: Yes: Conjunctiva Clear Neck: Yes: Supple, Trachea Midline Cardiovascular: Yes: Regular Rate and Rhythm Respiratory: Yes: SOB, bilateral rhonchi Gastrointestinal: Yes: Soft Edema: No Neurological: Yes: Alert Assessment/Plan In summary -- 89 gentleman with chronic COPD, former smoker, CKD, h/o R lung mass (cavitary lesion) s/p benign bx, cardiomyopath presents with increase sob/ cough and better steroids Nebulizer treatment cardiology / Pulmonary following abx per i/d d/w rn also will follow Problem List - Problems (1) COPD exacerbation Code(s): J44.1 - CHRONIC OBSTRUCTIVE PULMONARY DISEASE W (ACUTE) EXACERBATION (2) Chronic kidney disease (CKD) Code(s): N18.9 - CHRONIC KIDNEY DISEASE, UNSPECIFIED (3) Acute exacerbation of chronic obstructive pulmonary disease Code(s): J44.1 - CHRONIC OBSTRUCTIVE PULMONARY DISEASE W (ACUTE) EXACERBATION (4) Anxiety Code(s): F41.9 - ANXIETY DISORDER, UNSPECIFIED (5) Bronchiectasis Code(s): J47.9 - BRONCHIECTASIS, UNCOMPLICATED (6) Demand ischemia Code(s): I24.8 - OTHER FORMS OF ACUTE ISCHEMIC HEART DISEASE (7) Elevated troponin Code(s): R74.8 - ABNORMAL LEVELS OF OTHER SERUM ENZYMES (8) Insomnia disorder Code(s): G47.00 - INSOMNIA, UNSPECIFIED
--- NOTE | 2019-03-01 12:47 | PN ---
Progress Note, Physician History of Present Illness: positive for sob does not feel well - Current Medication List Current Medications: Active Medications Acetaminophen (Tylenol -) 650 mg PO Q6H PRN PRN Reason: PAIN LEVEL 1-5 Albuterol/Ipratropium (Duoneb -) 1 amp NEB RQID [facility] Last Admin: 03/01/19 08:03 Dose: 1 amp Heparin Sodium (Porcine) (Heparin -) 5,000 unit SQ BID [facility] Last Admin: 03/01/19 09:22 Dose: 5,000 unit Piperacillin Sod/Tazobactam (Sod 3.375 gm/ Dextrose) 50 mls @ 100 mls/hr IVPB Q8H-IV [facility]; Protocol Last Admin: 03/01/19 09:22 Dose: 100 mls/hr Lisinopril (Prinivil) 5 mg PO BID [facility] Last Admin: 03/01/19 09:22 Dose: 5 mg Mirtazapine (Remeron -) 15 mg PO HS [facility] Last Admin: 02/28/19 21:43 Dose: 15 mg Montelukast Sodium (Singulair -) 10 mg PO HS [facility] Last Admin: 02/28/19 21:43 Dose: 10 mg Nebivolol (Bystolic -) 10 mg PO DAILY [facility] Last Admin: 03/01/19 09:22 Dose: 10 mg Pantoprazole Sodium (Protonix -) 20 mg PO DAILY [facility] Last Admin: 03/01/19 09:22 Dose: 20 mg Prednisone (Deltasone -) 40 mg PO DAILY [facility] Last Admin: 03/01/19 10:20 Dose: 40 mg Sertraline HCl (Zoloft -) 50 mg PO AM [facility] Last Admin: 03/01/19 06:01 Dose: 50 mg - Objective Vital Signs: Vital Signs Temperature 97.2 F L 03/01/19 07:57 Pulse Rate 64 03/01/19 07:57 Respiratory Rate 16 03/01/19 07:57 Blood Pressure 146/63 03/01/19 07:57 O2 Sat by Pulse Oximetry (%) 97 03/01/19 09:00 Constitutional: Yes: Calm, Mild Distress Cardiovascular: Yes: S1, S2 Respiratory: Yes: On Nasal O2, Poor Air Entry, Rhonchi Gastrointestinal: Yes: Normal Bowel Sounds, Soft Musculoskeletal: Yes: WNL Extremities: Yes: WNL Neurological: Yes: Alert, Oriented Psychiatric: Yes: Alert, Oriented Labs: CBC, BMP 03/01/19 07:10 03/01/19 07:10 Assessment/Plan Problem List - Problems (1) Bipolar 1 disorder Code(s): F31.9 - BIPOLAR DISORDER, UNSPECIFIED (2) Cavitary lesion of lung Code(s): J98.4 - OTHER DISORDERS OF LUNG (3) Chronic kidney disease (CKD) Code(s): N18.9 - CHRONIC KIDNEY DISEASE, UNSPECIFIED (4) Acute exacerbation of chronic obstructive pulmonary disease Code(s): J44.1 - CHRONIC OBSTRUCTIVE PULMONARY DISEASE W (ACUTE) EXACERBATION (5) Anxiety Code(s): F41.9 - ANXIETY DISORDER, UNSPECIFIED (6) Depression Code(s): F32.9 - MAJOR DEPRESSIVE DISORDER, SINGLE EPISODE, UNSPECIFIED Qualifiers: Depression Type: major depressive disorder Major depression recurrence: unspecified whether recurrent Active/Remission status: currently active Major depression episode severity: mild Qualified Code(s): F32.0 - Major depressive disorder, single episode, mild (7) Emphysema of lung Code(s): J43.9 - EMPHYSEMA, UNSPECIFIED (8) HTN (hypertension) Code(s): I10 - ESSENTIAL (PRIMARY) HYPERTENSION (9) Parkinson disease Code(s): G20 - PARKINSON'S DISEASE (10) Pneumonia with cavity of lung Code(s): J18.9 - PNEUMONIA, UNSPECIFIED ORGANISM; J98.4 - OTHER DISORDERS OF LUNG (11) SOB (shortness of breath) Code(s): R06.02 - SHORTNESS OF BREATH Assessment/Plan Acute COPD Exacerbation Possible PNA lung lesion -- benign biopsy COPD Chronic respiratory failure CKD Depression plan continue current mgmt resp support
--- NOTE | 2019-03-01 16:12 | PN ---
Progress Note (short form) - Note Progress Note: s: no cp palps dizzy. sob feels a little worse today Current Medications Acetaminophen (Tylenol -) 650 mg PO Q6H PRN PRN Reason: PAIN LEVEL 1-5 Albuterol/Ipratropium (Duoneb -) 1 amp NEB RQID [facility] Last Admin: 03/01/19 15:33 Dose: 1 amp Budesonide/Formoterol Fumarate (Symbicort 160/4.5mcg -) 2 puff IH BID [facility] Heparin Sodium (Porcine) (Heparin -) 5,000 unit SQ BID [facility] Last Admin: 03/01/19 09:22 Dose: 5,000 unit Piperacillin Sod/Tazobactam (Sod 3.375 gm/ Dextrose) 50 mls @ 100 mls/hr IVPB Q8H-IV [facility]; Protocol Last Admin: 03/01/19 09:22 Dose: 100 mls/hr Lisinopril (Prinivil) 5 mg PO BID [facility] Last Admin: 03/01/19 09:22 Dose: 5 mg Mirtazapine (Remeron -) 15 mg PO HS [facility] Last Admin: 02/28/19 21:43 Dose: 15 mg Montelukast Sodium (Singulair -) 10 mg PO HS [facility] Last Admin: 02/28/19 21:43 Dose: 10 mg Nebivolol (Bystolic -) 10 mg PO DAILY [facility] Last Admin: 03/01/19 09:22 Dose: 10 mg Pantoprazole Sodium (Protonix -) 20 mg PO DAILY [facility] Last Admin: 03/01/19 09:22 Dose: 20 mg Prednisone (Deltasone -) 40 mg PO DAILY [facility] Last Admin: 03/01/19 10:20 Dose: 40 mg Sertraline HCl (Zoloft -) 50 mg PO AM [facility] Last Admin: 03/01/19 06:01 Dose: 50 mg Vital Signs Period Temp Pulse Resp BP Sys/[place] Pulse Ox Last 24 Hr 97.2 F-98.4 F 61-76 16-19 124-155/56-85 97-97 Constitutional: Yes: No Distress, Calm Respiratory: Yes: Other (b/l rhonchi and mild exp wheezing) Cardiovascular: Yes: Regular Rate and Rhythm JVD: No Carotid Bruit: No Heart Sounds: Yes: S1, S2 (rrr) Edema: No Neurological: Yes: Alert, Oriented not agitated no jaundice diaphoresis NSR LAFB, no acute changes Stress Echo: Image Reviewed (mild apical ischemia 03/2018 with normal EF: degree ischemia out of proportion to echo done 3 days prior.) Imaging - Results Chest X-ray: Image Reviewed EKG: Image Reviewed Assessment/Plan IMP: Acute exacerbation COPD 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 echo here shows nl lvef, no severe valve dz. Echo shows severe pulm htn, RV not seen well, likely relate to copd. 2. Equivocal TnI unlikely ACS (benign ECG, normal CK). Possible mild demand ischemia in setting of CKD And AECOPD. 3. Treatment of acute exacerbation COPD as per PMD and Pulmonary 4. Continue medical rx for presumed underlying chronic CAD: ASA 81/Statin, bystolic 5. Outpatient AAA screen w/ US
[2019-03-01] MEDS ORDERED: PT OWN MED DRAWER 7, Y5N ONE ×2 (17:39→21:03)
[2019-03-01] MEDS: CARBIDOPA/LEVODOPA 25/100 TABLET (FP) PO SCH (18:05)
[2019-03-01] MEDS: MIRTAZAPINE 15 MG TABLET (FP) PO SCH (21:27)
[2019-03-01] MEDS: MONTELUKAST NA 10 MG TABLET PO SCH (21:27)
[2019-03-01] MEDS: BUDESONIDE/FORMETEROL FUMARATE 160/4.5 mcg INHALER IH SCH (21:27)
[2019-03-02] MEDS ORDERED: PIPERACILLIN/TAZOBACTAM 3.375 GM VIAL IVPB ONE ×3 (01:30→16:26)
[2019-03-02] MEDS ORDERED: DEXTROSE 5%-WATER - 50 ML IVPB ONE ×3 (01:31→16:26)
[2019-03-02] MEDS: ZOLPIDEM TARTRATE 5 MG TABLET PO PRN ×2 (01:36→22:12)
[2019-03-02] MEDS: PIPERACILLIN/TAZOB 3.375 GM 3.375 GM in DEXTROSE 5%-WATER - 50 ML IVPB SCH ×3 (01:36→17:09)
[2019-03-02] MEDS: SERTRALINE HCL 50 MG TABLET (FP) PO SCH (06:17)
[2019-03-02] MEDS: ALBUTEROL SO4 2.5/IPRATROPIUM 0.5 INH SOL 3 ML VIAL.NEB. NEB SCH ×4 (07:59→20:30)
[2019-03-02] MEDS: HEPARIN NA (PORCINE) 5,000 UNITS/ML 1ML VIAL SQ SCH ×2 (09:22→21:19)
[2019-03-02] MEDS: LISINOPRIL 5 MG TABLET (FP) PO SCH ×2 (09:22→21:19)
[2019-03-02] MEDS: PANTOPRAZOLE 20 MG TABLET (FP) PO SCH (09:22)
[2019-03-02] MEDS: predniSONE 20 MG TABLET (UD) PO SCH (09:22)
[2019-03-02] MEDS: NEBIVOLOL 10 MG TABLET (FP) PO SCH (09:22)
[2019-03-02] MEDS: BUDESONIDE/FORMETEROL FUMARATE 160/4.5 mcg INHALER IH SCH ×2 (09:26→21:20)
[2019-03-02] MEDS ORDERED: PT OWN MED DRAWER 7, Y5N ONE (09:32)
[2019-03-02] MEDS: CARBIDOPA/LEVODOPA 25/100 TABLET (FP) PO SCH ×3 (09:32→16:29)
--- NOTE | 2019-03-02 10:13 | PN ---
Progress Note (short form) - Note Progress Note: Feels about the same. Breathing seems to have plateaued. No hemoptysis. No acute events overnight. CT: decreased size of the RUL irregular airspace opacification / diffuse emphysema: PMD notified me that RUL has been biopsied and is (-) for malignancy and there was also a (-) PET scan. Intake & Output 02/27/19 02/28/19 03/01/19 03/02/19 23:59 23:59 23:59 23:59 Intake Total 1060 1030 950 20 Output Total 1200 Balance -140 1030 950 20 Last Vital Signs Temp Pulse Resp BP Pulse Ox 97.6 F 84 18 141/74 97 03/02/19 08:52 03/02/19 08:52 03/02/19 08:52 03/02/19 08:52 03/01/19 20:45 Active Medications Acetaminophen (Tylenol -) 650 mg PO Q6H PRN PRN Reason: PAIN LEVEL 1-5 Albuterol/Ipratropium (Duoneb -) 1 amp NEB RQID [facility] Last Admin: 03/02/19 07:59 Dose: 1 amp Budesonide/Formoterol Fumarate (Symbicort 160/4.5mcg -) 2 puff IH BID [facility] Last Admin: 03/02/19 09:26 Dose: 2 puff Carbidopa/Levodopa (Sinemet 25/100 -) 1 each PO TID@0900,1200,1700 [facility] Last Admin: 03/02/19 09:32 Dose: 1 each Heparin Sodium (Porcine) (Heparin -) 5,000 unit SQ BID [facility] Last Admin: 03/02/19 09:22 Dose: 5,000 unit Piperacillin Sod/Tazobactam (Sod 3.375 gm/ Dextrose) 50 mls @ 100 mls/hr IVPB Q8H-IV [facility]; Protocol Last Admin: 03/02/19 09:21 Dose: 100 mls/hr Lisinopril (Prinivil) 5 mg PO BID [facility] Last Admin: 03/02/19 09:22 Dose: 5 mg Mirtazapine (Remeron -) 15 mg PO HS [facility] Last Admin: 03/01/19 21:27 Dose: 15 mg Montelukast Sodium (Singulair -) 10 mg PO HS [facility] Last Admin: 03/01/19 21:27 Dose: 10 mg Nebivolol (Bystolic -) 10 mg PO DAILY [facility] Last Admin: 03/02/19 09:22 Dose: 10 mg Pantoprazole Sodium (Protonix -) 20 mg PO DAILY [facility] Last Admin: 03/02/19 09:22 Dose: 20 mg Prednisone (Deltasone -) 40 mg PO DAILY [facility] Last Admin: 03/02/19 09:22 Dose: 40 mg Sertraline HCl (Zoloft -) 50 mg PO AM [facility] Last Admin: 03/02/19 06:17 Dose: 50 mg Zolpidem Tartrate (Ambien -) 5 mg PO HS PRN PRN Reason: INSOMNIA Last Admin: 03/02/19 01:36 Dose: 5 mg Constitutional: Yes: NAD Eyes: Yes: EOM Intact HENT: Yes: Normocephalic Neck: Yes: Trachea Midline Cardiovascular: Yes: Regular Rate and Rhythm Respiratory: Yes: Diminished, scattered rhonchi, (-) wheeze Gastrointestinal: Yes: Normal Bowel Sounds Edema: No Labs: Laboratory Results - last 24 hr 03/01/19 07:10 Neutrophils % (Manual) 94.0 H Band Neutrophils % 0.0 Lymphocytes % (Manual) 4.0 L D Monocytes % (Manual) 2 L Eosinophils % (Manual) 0.0 Basophils % (Manual) 0.0 Myelocytes % (Man) 0 Promyelocytes % (Man) 0 Blast Cells % (Manual) 0 Metamyelocytes 0 Platelet Estimate Normal Poikilocytosis 1+ Fragmented RBCs 1+ Schistocytes 1+ Problem List - Problems (1) COPD exacerbation Code(s): J44.1 - CHRONIC OBSTRUCTIVE PULMONARY DISEASE W (ACUTE) EXACERBATION (2) Acute hypoxemic respiratory failure Code(s): J96.01 - ACUTE RESPIRATORY FAILURE WITH HYPOXIA (3) Emphysema of lung Code(s): J43.9 - EMPHYSEMA, UNSPECIFIED (4) HTN (hypertension) Code(s): I10 - ESSENTIAL (PRIMARY) HYPERTENSION (5) Hypercapnic respiratory failure, chronic Code(s): J96.12 - CHRONIC RESPIRATORY FAILURE WITH HYPERCAPNIA (6) Pneumonia with cavity of lung Code(s): J18.9 - PNEUMONIA, UNSPECIFIED ORGANISM; J98.4 - OTHER DISORDERS OF LUNG (7) Cavitary lesion of lung Code(s): J98.4 - OTHER DISORDERS OF LUNG Assessment/Plan ABX per ID: consider DC or change to PO O2 as needed BD TX Prednisone 40mg PO OD Singulair (?) Inpatient Pulmonary Rehab Dr Martinez
--- NOTE | 2019-03-02 11:12 | PN ---
Progress Note (short form) - Note Progress Note: Events noted states she feels the same Vital Signs - 24 hr 03/01/19 03/01/19 03/02/19 19:07 20:45 05:32 Temperature 97.8 F 97.3 F L Pulse Rate 72 63 Respiratory 18 17 Rate Blood Pressure 134/74 128/69 O2 Sat by Pulse 97 Oximetry (%) 03/02/19 03/02/19 03/02/19 08:52 09:00 13:27 Temperature 97.6 F 97.9 F Pulse Rate 84 59 L Respiratory 18 18 Rate Blood Pressure 141/74 132/64 O2 Sat by Pulse 94 L Oximetry (%) Current Medications Generic Name Dose Route Start Last Admin Trade Name Freq PRN Reason Stop Dose Admin Acetaminophen 650 mg 02/26/19 00:30 Tylenol - PO Q6H PRN PAIN LEVEL 1-5 Albuterol/Ipratropium 1 amp 02/26/19 08:00 03/02/19 15:31 Duoneb - NEB 1 amp RQID [facility] Administration Budesonide/Formoterol Fumarate 2 puff 03/01/19 22:00 03/02/19 09:26 Symbicort 160/4.5mcg - IH 2 puff BID [facility] Administration Carbidopa/Levodopa 1 each 03/01/19 18:00 03/02/19 16:29 Sinemet 25/100 - PO 1 each TID@0900,1200,1700 [facility] Administration Heparin Sodium (Porcine) 5,000 unit 02/26/19 10:00 03/02/19 09:22 Heparin - SQ 5,000 unit BID [facility] Administration Piperacillin Sod/Tazobactam 50 mls @ 100 mls/hr 02/27/19 18:00 03/02/19 09:21 Sod 3.375 gm/ Dextrose IVPB 100 mls/hr Q8H-IV [facility] Administration Protocol Lisinopril 5 mg 02/26/19 10:00 03/02/19 09:22 Prinivil PO 5 mg BID [facility] Administration Mirtazapine 15 mg 02/26/19 22:00 03/01/19 21:27 Remeron - PO 15 mg HS [facility] Administration Montelukast Sodium 10 mg 02/26/19 22:00 03/01/19 21:27 Singulair - PO 10 mg HS [facility] Administration Nebivolol 10 mg 02/26/19 10:30 03/02/19 09:22 Bystolic - PO 10 mg DAILY [facility] Administration Pantoprazole Sodium 20 mg 02/26/19 10:15 03/02/19 09:22 Protonix - PO 20 mg DAILY [facility] Administration Prednisone 40 mg 03/01/19 10:00 03/02/19 09:22 Deltasone - PO 40 mg DAILY [facility] Administration Sertraline HCl 50 mg 02/26/19 07:00 03/02/19 06:17 Zoloft - PO 50 mg AM [facility] Administration Zolpidem Tartrate 5 mg 03/02/19 01:03 03/02/19 01:36 Ambien - PO 5 mg HS PRN Administration INSOMNIA S1 S2 RRR B/L ronchi Soft, NT no edema PLAN Assessment/Plan In summary -- 89 gentleman with chronic COPD, former smoker, CKD, h/o R lung mass (cavitary lesion) s/p benign bx, cardiomyopath presents with increase sob/ cough and better steroids Nebulizer treatment cardiology / Pulmonary following abx per i/d --> need to know duration onPO prednisone may need STR spoke with sw d/w rn also will follow Problem List - Problems (1) Bipolar 1 disorder Code(s): F31.9 - BIPOLAR DISORDER, UNSPECIFIED (2) Cavitary lesion of lung Code(s): J98.4 - OTHER DISORDERS OF LUNG (3) Chronic kidney disease (CKD) Code(s): N18.9 - CHRONIC KIDNEY DISEASE, UNSPECIFIED (4) Acute diastolic (congestive) heart failure Code(s): I50.31 - ACUTE DIASTOLIC (CONGESTIVE) HEART FAILURE
--- NOTE | 2019-03-02 11:43 | PN ---
Progress Note, Physician History of Present Illness: positive for sob does not feel well - Current Medication List Current Medications: Active Medications Acetaminophen (Tylenol -) 650 mg PO Q6H PRN PRN Reason: PAIN LEVEL 1-5 Albuterol/Ipratropium (Duoneb -) 1 amp NEB RQID [facility] Last Admin: 03/02/19 07:59 Dose: 1 amp Budesonide/Formoterol Fumarate (Symbicort 160/4.5mcg -) 2 puff IH BID [facility] Last Admin: 03/02/19 09:26 Dose: 2 puff Carbidopa/Levodopa (Sinemet 25/100 -) 1 each PO TID@0900,1200,1700 [facility] Last Admin: 03/02/19 11:38 Dose: 1 each Heparin Sodium (Porcine) (Heparin -) 5,000 unit SQ BID [facility] Last Admin: 03/02/19 09:22 Dose: 5,000 unit Piperacillin Sod/Tazobactam (Sod 3.375 gm/ Dextrose) 50 mls @ 100 mls/hr IVPB Q8H-IV [facility]; Protocol Last Admin: 03/02/19 09:21 Dose: 100 mls/hr Lisinopril (Prinivil) 5 mg PO BID [facility] Last Admin: 03/02/19 09:22 Dose: 5 mg Mirtazapine (Remeron -) 15 mg PO HS [facility] Last Admin: 03/01/19 21:27 Dose: 15 mg Montelukast Sodium (Singulair -) 10 mg PO HS [facility] Last Admin: 03/01/19 21:27 Dose: 10 mg Nebivolol (Bystolic -) 10 mg PO DAILY [facility] Last Admin: 03/02/19 09:22 Dose: 10 mg Pantoprazole Sodium (Protonix -) 20 mg PO DAILY [facility] Last Admin: 03/02/19 09:22 Dose: 20 mg Prednisone (Deltasone -) 40 mg PO DAILY [facility] Last Admin: 03/02/19 09:22 Dose: 40 mg Sertraline HCl (Zoloft -) 50 mg PO AM [facility] Last Admin: 03/02/19 06:17 Dose: 50 mg Zolpidem Tartrate (Ambien -) 5 mg PO HS PRN PRN Reason: INSOMNIA Last Admin: 03/02/19 01:36 Dose: 5 mg - Objective Vital Signs: Vital Signs Temperature 97.6 F 03/02/19 08:52 Pulse Rate 84 03/02/19 08:52 Respiratory Rate 18 03/02/19 08:52 Blood Pressure 141/74 03/02/19 08:52 O2 Sat by Pulse Oximetry (%) 94 L 03/02/19 09:00 Constitutional: Yes: Calm, Mild Distress Cardiovascular: Yes: S1, S2 Respiratory: Yes: Regular, On Nasal O2, Rhonchi, Other Gastrointestinal: Yes: Normal Bowel Sounds, Soft Musculoskeletal: Yes: WNL Extremities: Yes: WNL Neurological: Yes: Alert, Oriented Psychiatric: Yes: Alert, Oriented Labs: CBC, BMP 03/01/19 07:10 03/01/19 07:10 Assessment/Plan Problem List - Problems (1) Bipolar 1 disorder Code(s): F31.9 - BIPOLAR DISORDER, UNSPECIFIED (2) Cavitary lesion of lung Code(s): J98.4 - OTHER DISORDERS OF LUNG (3) Chronic kidney disease (CKD) Code(s): N18.9 - CHRONIC KIDNEY DISEASE, UNSPECIFIED (4) Acute exacerbation of chronic obstructive pulmonary disease Code(s): J44.1 - CHRONIC OBSTRUCTIVE PULMONARY DISEASE W (ACUTE) EXACERBATION (5) Anxiety Code(s): F41.9 - ANXIETY DISORDER, UNSPECIFIED (6) Depression Code(s): F32.9 - MAJOR DEPRESSIVE DISORDER, SINGLE EPISODE, UNSPECIFIED Qualifiers: Depression Type: major depressive disorder Major depression recurrence: unspecified whether recurrent Active/Remission status: currently active Major depression episode severity: mild Qualified Code(s): F32.0 - Major depressive disorder, single episode, mild (7) Emphysema of lung Code(s): J43.9 - EMPHYSEMA, UNSPECIFIED (8) HTN (hypertension) Code(s): I10 - ESSENTIAL (PRIMARY) HYPERTENSION (9) Parkinson disease Code(s): G20 - PARKINSON'S DISEASE (10) Pneumonia with cavity of lung Code(s): J18.9 - PNEUMONIA, UNSPECIFIED ORGANISM; J98.4 - OTHER DISORDERS OF LUNG (11) SOB (shortness of breath) Code(s): R06.02 - SHORTNESS OF BREATH Assessment/Plan Acute COPD Exacerbation Possible PNA lung lesion -- benign biopsy COPD Chronic respiratory failure CKD Depression plan continue current mgmt resp support
--- NOTE | 2019-03-02 12:35 | PN ---
Progress Note (short form) - Note Progress Note: s: no cp palps dizzy. stable sob Current Medications Acetaminophen (Tylenol -) 650 mg PO Q6H PRN PRN Reason: PAIN LEVEL 1-5 Albuterol/Ipratropium (Duoneb -) 1 amp NEB RQID [facility] Last Admin: 03/02/19 12:03 Dose: Not Given Budesonide/Formoterol Fumarate (Symbicort 160/4.5mcg -) 2 puff IH BID [facility] Last Admin: 03/02/19 09:26 Dose: 2 puff Carbidopa/Levodopa (Sinemet 25/100 -) 1 each PO TID@0900,1200,1700 [facility] Last Admin: 03/02/19 11:38 Dose: 1 each Heparin Sodium (Porcine) (Heparin -) 5,000 unit SQ BID [facility] Last Admin: 03/02/19 09:22 Dose: 5,000 unit Piperacillin Sod/Tazobactam (Sod 3.375 gm/ Dextrose) 50 mls @ 100 mls/hr IVPB Q8H-IV [facility]; Protocol Last Admin: 03/02/19 09:21 Dose: 100 mls/hr Lisinopril (Prinivil) 5 mg PO BID [facility] Last Admin: 03/02/19 09:22 Dose: 5 mg Mirtazapine (Remeron -) 15 mg PO HS [facility] Last Admin: 03/01/19 21:27 Dose: 15 mg Montelukast Sodium (Singulair -) 10 mg PO HS [facility] Last Admin: 03/01/19 21:27 Dose: 10 mg Nebivolol (Bystolic -) 10 mg PO DAILY [facility] Last Admin: 03/02/19 09:22 Dose: 10 mg Pantoprazole Sodium (Protonix -) 20 mg PO DAILY [facility] Last Admin: 03/02/19 09:22 Dose: 20 mg Prednisone (Deltasone -) 40 mg PO DAILY [facility] Last Admin: 03/02/19 09:22 Dose: 40 mg Sertraline HCl (Zoloft -) 50 mg PO AM [facility] Last Admin: 03/02/19 06:17 Dose: 50 mg Zolpidem Tartrate (Ambien -) 5 mg PO HS PRN PRN Reason: INSOMNIA Last Admin: 03/02/19 01:36 Dose: 5 mg Vital Signs Period Temp Pulse Resp BP Sys/[place] Pulse Ox Last 24 Hr 97.3 F-98.4 F 63-84 17-18 128-155/69-85 94-97 Constitutional: Yes: No Distress, Calm Respiratory: Yes: Other (b/l rhonchi and mild exp wheezing) Cardiovascular: Yes: Regular Rate and Rhythm JVD: No Carotid Bruit: No Heart Sounds: Yes: S1, S2 (rrr) Edema: No Neurological: Yes: Alert, Oriented not agitated no jaundice diaphoresis NSR LAFB, no acute changes Stress Echo: Image Reviewed (mild apical ischemia 03/2018 with normal EF: degree ischemia out of proportion to echo done 3 days prior.) Imaging - Results Chest X-ray: Image Reviewed EKG: Image Reviewed Assessment/Plan IMP: Acute exacerbation COPD 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 echo here shows nl lvef, no severe valve dz. Echo shows severe pulm htn, RV not seen well, likely related to copd. 2. Equivocal TnI unlikely ACS (benign ECG, normal CK). Possible mild demand ischemia in setting of CKD And AECOPD. 3. Treatment of acute exacerbation COPD as per PMD and Pulmonary 4. Continue medical rx for presumed underlying chronic CAD: ASA 81/Statin, bystolic 5. Outpatient AAA screen w/ US
[2019-03-02] MEDS: MONTELUKAST NA 10 MG TABLET PO SCH (21:19)
[2019-03-02] MEDS: MIRTAZAPINE 15 MG TABLET (FP) PO SCH (21:19)
[2019-03-03] MEDS ORDERED: PIPERACILLIN/TAZOBACTAM 3.375 GM VIAL IVPB ONE ×3 (02:35→17:15)
[2019-03-03] MEDS ORDERED: DEXTROSE 5%-WATER - 50 ML IVPB ONE ×3 (02:36→17:15)
[2019-03-03] MEDS: PIPERACILLIN/TAZOB 3.375 GM 3.375 GM in DEXTROSE 5%-WATER - 50 ML IVPB SCH ×3 (02:49→17:26)
[2019-03-03] MEDS: SERTRALINE HCL 50 MG TABLET (FP) PO SCH (06:04)
[2019-03-03] MEDS: ALBUTEROL SO4 2.5/IPRATROPIUM 0.5 INH SOL 3 ML VIAL.NEB. NEB SCH ×4 (08:00→21:00)
[2019-03-03 08:20] LABS: HEMATOCRIT 44.7 % (35.4-49); MCH 32.2 pg (25.7-33.7); MCHC 33.6 g/dl (32.0-35.9); MEAN PLT VOLUME 8.7 fl (7.5-11.1); PLATELET COUNT 143 K/MM3 (134-434); RBC 4.65 M/mm3 (4.00-5.60); RDW 15.7 % (11.9-15.9); WHITE BLOOD COUNT 11.8 K/mm3 (4.0-10.0)
[2019-03-03 09:00] LABS: ALBUMIN 2.8 g/dl (3.4-5.0); BILIRUBIN,TOTAL 1.2 mg/dL (0.2-1); BLOOD UREA NITROGEN 47.8 mg/dL (7-18); CALCIUM 8.3 mg/dL (8.5-10.1); CREATININE 1.5 mg/dL (0.55-1.3); POTASSIUM 4.4 mmol/L (3.5-5.1); TOT PROT 5.1 g/dl (6.4-8.2)
--- NOTE | 2019-03-03 10:47 | PN ---
Progress Note, Physician History of Present Illness: feeling better breathing better sputum send for cx - Current Medication List Current Medications: Active Medications Acetaminophen (Tylenol -) 650 mg PO Q6H PRN PRN Reason: PAIN LEVEL 1-5 Albuterol/Ipratropium (Duoneb -) 1 amp NEB RQID [facility] Last Admin: 03/02/19 20:30 Dose: 1 amp Budesonide/Formoterol Fumarate (Symbicort 160/4.5mcg -) 2 puff IH BID [facility] Last Admin: 03/02/19 21:20 Dose: 2 puff Carbidopa/Levodopa (Sinemet 25/100 -) 1 each PO TID@0900,1200,1700 [facility] Last Admin: 03/02/19 16:29 Dose: 1 each Heparin Sodium (Porcine) (Heparin -) 5,000 unit SQ BID [facility] Last Admin: 03/02/19 21:19 Dose: 5,000 unit Piperacillin Sod/Tazobactam (Sod 3.375 gm/ Dextrose) 50 mls @ 100 mls/hr IVPB Q8H-IV [facility]; Protocol Last Admin: 03/03/19 02:49 Dose: 100 mls/hr Lisinopril (Prinivil) 5 mg PO BID [facility] Last Admin: 03/02/19 21:19 Dose: 5 mg Mirtazapine (Remeron -) 15 mg PO HS [facility] Last Admin: 03/02/19 21:19 Dose: 15 mg Montelukast Sodium (Singulair -) 10 mg PO HS [facility] Last Admin: 03/02/19 21:19 Dose: 10 mg Nebivolol (Bystolic -) 10 mg PO DAILY [facility] Last Admin: 03/02/19 09:22 Dose: 10 mg Pantoprazole Sodium (Protonix -) 20 mg PO DAILY [facility] Last Admin: 03/02/19 09:22 Dose: 20 mg Prednisone (Deltasone -) 40 mg PO DAILY [facility] Last Admin: 03/02/19 09:22 Dose: 40 mg Sertraline HCl (Zoloft -) 50 mg PO AM [facility] Last Admin: 03/03/19 06:04 Dose: 50 mg Zolpidem Tartrate (Ambien -) 5 mg PO HS PRN PRN Reason: INSOMNIA Last Admin: 03/02/19 22:12 Dose: 5 mg - Objective Vital Signs: Vital Signs Temperature 97.5 F L 03/03/19 06:25 Pulse Rate 62 03/03/19 06:25 Respiratory Rate 18 03/03/19 06:25 Blood Pressure 128/68 03/03/19 06:25 O2 Sat by Pulse Oximetry (%) 94 L 03/02/19 21:00 Constitutional: Yes: No Distress, Calm Cardiovascular: Yes: S1, S2 Respiratory: Yes: Regular, CTA Bilaterally Gastrointestinal: Yes: Normal Bowel Sounds, Soft Musculoskeletal: Yes: WNL Extremities: Yes: WNL Neurological: Yes: Alert, Oriented Psychiatric: Yes: Alert, Oriented Labs: CBC, BMP 03/03/19 07:17 03/03/19 07:17 Assessment/Plan Problem List - Problems (1) Bipolar 1 disorder Code(s): F31.9 - BIPOLAR DISORDER, UNSPECIFIED (2) Cavitary lesion of lung Code(s): J98.4 - OTHER DISORDERS OF LUNG (3) Chronic kidney disease (CKD) Code(s): N18.9 - CHRONIC KIDNEY DISEASE, UNSPECIFIED (4) Acute exacerbation of chronic obstructive pulmonary disease Code(s): J44.1 - CHRONIC OBSTRUCTIVE PULMONARY DISEASE W (ACUTE) EXACERBATION (5) Anxiety Code(s): F41.9 - ANXIETY DISORDER, UNSPECIFIED (6) Depression Code(s): F32.9 - MAJOR DEPRESSIVE DISORDER, SINGLE EPISODE, UNSPECIFIED Qualifiers: Depression Type: major depressive disorder Major depression recurrence: unspecified whether recurrent Active/Remission status: currently active Major depression episode severity: mild Qualified Code(s): F32.0 - Major depressive disorder, single episode, mild (7) Emphysema of lung Code(s): J43.9 - EMPHYSEMA, UNSPECIFIED (8) HTN (hypertension) Code(s): I10 - ESSENTIAL (PRIMARY) HYPERTENSION (9) Parkinson disease Code(s): G20 - PARKINSON'S DISEASE (10) Pneumonia with cavity of lung Code(s): J18.9 - PNEUMONIA, UNSPECIFIED ORGANISM; J98.4 - OTHER DISORDERS OF LUNG (11) SOB (shortness of breath) Code(s): R06.02 - SHORTNESS OF BREATH Assessment/Plan Acute COPD Exacerbation Possible PNA lung lesion -- benign biopsy COPD Chronic respiratory failure CKD Depression plan continue current mgmt resp support await for sputum cx rest as per the team
[2019-03-03] MEDS: PANTOPRAZOLE 20 MG TABLET (FP) PO SCH (11:01)
[2019-03-03] MEDS: predniSONE 20 MG TABLET (UD) PO SCH (11:02)
[2019-03-03] MEDS: HEPARIN NA (PORCINE) 5,000 UNITS/ML 1ML VIAL SQ SCH ×2 (11:02→21:41)
[2019-03-03] MEDS: NEBIVOLOL 10 MG TABLET (FP) PO SCH (11:02)
[2019-03-03] MEDS: LISINOPRIL 5 MG TABLET (FP) PO SCH ×2 (11:03→21:45)
[2019-03-03] MEDS: CARBIDOPA/LEVODOPA 25/100 TABLET (FP) PO SCH ×3 (11:06→17:25)
--- NOTE | 2019-03-03 12:02 | PN ---
Progress Note (short form) - Note Progress Note: s: no cp palps dizzy. dyspnea improving Current Medications Acetaminophen (Tylenol -) 650 mg PO Q6H PRN PRN Reason: PAIN LEVEL 1-5 Albuterol/Ipratropium (Duoneb -) 1 amp NEB RQID [facility] Last Admin: 03/02/19 20:30 Dose: 1 amp Budesonide/Formoterol Fumarate (Symbicort 160/4.5mcg -) 2 puff IH BID [facility] Last Admin: 03/02/19 21:20 Dose: 2 puff Carbidopa/Levodopa (Sinemet 25/100 -) 1 each PO TID@0900,1200,1700 [facility] Last Admin: 03/03/19 11:06 Dose: 1 each Heparin Sodium (Porcine) (Heparin -) 5,000 unit SQ BID [facility] Last Admin: 03/03/19 11:02 Dose: 5,000 unit Piperacillin Sod/Tazobactam (Sod 3.375 gm/ Dextrose) 50 mls @ 100 mls/hr IVPB Q8H-IV [facility]; Protocol Last Admin: 03/03/19 11:17 Dose: 100 mls/hr Lisinopril (Prinivil) 5 mg PO BID [facility] Last Admin: 03/03/19 11:03 Dose: 5 mg Mirtazapine (Remeron -) 15 mg PO HS [facility] Last Admin: 03/02/19 21:19 Dose: 15 mg Montelukast Sodium (Singulair -) 10 mg PO HS [facility] Last Admin: 03/02/19 21:19 Dose: 10 mg Nebivolol (Bystolic -) 10 mg PO DAILY [facility] Last Admin: 03/03/19 11:02 Dose: 10 mg Pantoprazole Sodium (Protonix -) 20 mg PO DAILY [facility] Last Admin: 03/03/19 11:01 Dose: 20 mg Prednisone (Deltasone -) 40 mg PO DAILY [facility] Last Admin: 03/03/19 11:02 Dose: 40 mg Sertraline HCl (Zoloft -) 50 mg PO AM [facility] Last Admin: 03/03/19 06:04 Dose: 50 mg Zolpidem Tartrate (Ambien -) 5 mg PO HS PRN PRN Reason: INSOMNIA Last Admin: 03/02/19 22:12 Dose: 5 mg Vital Signs Period Temp Pulse Resp BP Sys/[place] Pulse Ox Last 24 Hr 97.5 F-98.2 F 59-64 18-20 128-138/64-80 94 Constitutional: Yes: No Distress, Calm Respiratory: Yes: Other (b/l rhonchi and mild exp wheezing) Cardiovascular: Yes: Regular Rate and Rhythm JVD: No Carotid Bruit: No Heart Sounds: Yes: S1, S2 (rrr) Edema: No Neurological: Yes: Alert, Oriented not agitated no jaundice diaphoresis NSR LAFB, no acute changes Stress Echo: Image Reviewed (mild apical ischemia 03/2018 with normal EF: degree ischemia out of proportion to echo done 3 days prior.) Imaging - Results Chest X-ray: Image Reviewed EKG: Image Reviewed Assessment/Plan IMP: Acute exacerbation COPD 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 echo here shows nl lvef, no severe valve dz. Echo shows severe pulm htn, RV not seen well, likely related to copd. 2. Equivocal TnI unlikely ACS (benign ECG, normal CK). Possible mild demand ischemia in setting of CKD And AECOPD. 3. Treatment of acute exacerbation COPD as per PMD and Pulmonary 4. Continue medical rx for presumed underlying chronic CAD: ASA 81/Statin, bystolic 5. Outpatient AAA screen w/ US
--- NOTE | 2019-03-03 12:04 | PN ---
Progress Note (short form) - Note Progress Note: Events noted feeling better today sputum culture sent Vital Signs - 24 hr 03/02/19 03/02/19 03/02/19 13:27 21:00 22:19 Temperature 97.9 F 98.0 F Pulse Rate 59 L 64 Respiratory 18 20 19 Rate Blood Pressure 132/64 134/70 O2 Sat by Pulse 94 L Oximetry (%) 03/02/19 03/03/19 22:22 06:25 Temperature 98.2 F 97.5 F L Pulse Rate 60 62 Respiratory 20 18 Rate Blood Pressure 138/80 128/68 O2 Sat by Pulse Oximetry (%) Current Medications Generic Name Dose Route Start Last Admin Trade Name Freq PRN Reason Stop Dose Admin Acetaminophen 650 mg 02/26/19 00:30 Tylenol - PO Q6H PRN PAIN LEVEL 1-5 Albuterol/Ipratropium 1 amp 02/26/19 08:00 03/02/19 20:30 Duoneb - NEB 1 amp RQID [facility] Administration Budesonide/Formoterol Fumarate 2 puff 03/01/19 22:00 03/02/19 21:20 Symbicort 160/4.5mcg - IH 2 puff BID [facility] Administration Carbidopa/Levodopa 1 each 03/01/19 18:00 03/03/19 11:06 Sinemet 25/100 - PO 1 each TID@0900,1200,1700 [facility] Administration Heparin Sodium (Porcine) 5,000 unit 02/26/19 10:00 03/03/19 11:02 Heparin - SQ 5,000 unit BID [facility] Administration Piperacillin Sod/Tazobactam 50 mls @ 100 mls/hr 02/27/19 18:00 03/03/19 11:17 Sod 3.375 gm/ Dextrose IVPB 100 mls/hr Q8H-IV [facility] Administration Protocol Lisinopril 5 mg 02/26/19 10:00 03/03/19 11:03 Prinivil PO 5 mg BID [facility] Administration Mirtazapine 15 mg 02/26/19 22:00 03/02/19 21:19 Remeron - PO 15 mg HS [facility] Administration Montelukast Sodium 10 mg 02/26/19 22:00 03/02/19 21:19 Singulair - PO 10 mg HS [facility] Administration Nebivolol 10 mg 02/26/19 10:30 03/03/19 11:02 Bystolic - PO 10 mg DAILY [facility] Administration Pantoprazole Sodium 20 mg 02/26/19 10:15 03/03/19 11:01 Protonix - PO 20 mg DAILY [facility] Administration Prednisone 40 mg 03/01/19 10:00 03/03/19 11:02 Deltasone - PO 40 mg DAILY [facility] Administration Sertraline HCl 50 mg 02/26/19 07:00 03/03/19 06:04 Zoloft - PO 50 mg AM [facility] Administration Zolpidem Tartrate 5 mg 03/02/19 01:03 03/02/19 22:12 Ambien - PO 5 mg HS PRN Administration INSOMNIA Laboratory Results - last 24 hr 03/03/19 03/03/19 07:17 07:17 WBC 11.8 H RBC 4.65 Hgb 15.0 Hct 44.7 MCV 96.0 MCH 32.2 MCHC 33.6 RDW 15.7 Plt Count 143 D MPV 8.7 Sodium 137 Potassium 4.4 Chloride 102 Carbon Dioxide 29 Anion Gap 5 L BUN 47.8 H Creatinine 1.5 H Est GFR (CKD-EPI)AfAm 47.83 Est GFR (CKD-EPI)NonAf 41.27 Random Glucose 66 L Calcium 8.3 L Total Bilirubin 1.2 H AST 28 ALT 80 H Alkaline Phosphatase 36 L Total Protein 5.1 L Albumin 2.8 L S1 S2 RRR B/L ronchi Soft, NT no edema PLAN Assessment/Plan In summary -- 89 gentleman with chronic COPD, former smoker, CKD, h/o R lung mass (cavitary lesion) s/p benign bx, cardiomyopath presents with increase sob/ cough and better steroids-->po prednisone Nebulizer treatment cardiology / Pulmonary following abx per i/d --> need to know duration sputum culture pending may need STR spoke with sw d/w rn also will follow Problem List - Problems (1) Bipolar 1 disorder Code(s): F31.9 - BIPOLAR DISORDER, UNSPECIFIED (2) Cavitary lesion of lung Code(s): J98.4 - OTHER DISORDERS OF LUNG (3) Chronic kidney disease (CKD) Code(s): N18.9 - CHRONIC KIDNEY DISEASE, UNSPECIFIED (4) Acute diastolic (congestive) heart failure Code(s): I50.31 - ACUTE DIASTOLIC (CONGESTIVE) HEART FAILURE
--- NOTE | 2019-03-03 15:16 | PN ---
Progress Note, Physician History of Present Illness: PULMONARY ALERT,LESS DYSPNEIC,ON NASAL O2 - Current Medication List Current Medications: Active Medications Acetaminophen (Tylenol -) 650 mg PO Q6H PRN PRN Reason: PAIN LEVEL 1-5 Albuterol/Ipratropium (Duoneb -) 1 amp NEB RQID [facility] Last Admin: 03/03/19 12:00 Dose: 1 amp Budesonide/Formoterol Fumarate (Symbicort 160/4.5mcg -) 2 puff IH BID [facility] Last Admin: 03/02/19 21:20 Dose: 2 puff Carbidopa/Levodopa (Sinemet 25/100 -) 1 each PO TID@0900,1200,1700 [facility] Last Admin: 03/03/19 11:06 Dose: 1 each Heparin Sodium (Porcine) (Heparin -) 5,000 unit SQ BID [facility] Last Admin: 03/03/19 11:02 Dose: 5,000 unit Piperacillin Sod/Tazobactam (Sod 3.375 gm/ Dextrose) 50 mls @ 100 mls/hr IVPB Q8H-IV [facility]; Protocol Last Admin: 03/03/19 11:17 Dose: 100 mls/hr Lisinopril (Prinivil) 5 mg PO BID [facility] Last Admin: 03/03/19 11:03 Dose: 5 mg Mirtazapine (Remeron -) 15 mg PO HS [facility] Last Admin: 03/02/19 21:19 Dose: 15 mg Montelukast Sodium (Singulair -) 10 mg PO HS [facility] Last Admin: 03/02/19 21:19 Dose: 10 mg Nebivolol (Bystolic -) 10 mg PO DAILY [facility] Last Admin: 03/03/19 11:02 Dose: 10 mg Pantoprazole Sodium (Protonix -) 20 mg PO DAILY [facility] Last Admin: 03/03/19 11:01 Dose: 20 mg Prednisone (Deltasone -) 40 mg PO DAILY [facility] Last Admin: 03/03/19 11:02 Dose: 40 mg Sertraline HCl (Zoloft -) 50 mg PO AM [facility] Last Admin: 03/03/19 06:04 Dose: 50 mg Zolpidem Tartrate (Ambien -) 5 mg PO HS PRN PRN Reason: INSOMNIA Last Admin: 03/02/19 22:12 Dose: 5 mg - Objective Vital Signs: Vital Signs Temperature 98.5 F 03/03/19 13:38 Pulse Rate 61 03/03/19 13:38 Respiratory Rate 18 03/03/19 13:38 Blood Pressure 130/56 L 03/03/19 13:38 O2 Sat by Pulse Oximetry (%) 94 L 03/02/19 21:00 Constitutional: Yes: Well Nourished, Calm Eyes: Yes: WNL HENT: Yes: WNL Neck: Yes: WNL Cardiovascular: Yes: Regular Rate and Rhythm, S1, S2 Respiratory: Yes: Rhonchi (SCATTERED JOANNA RHONCHI) Gastrointestinal: Yes: Normal Bowel Sounds, Soft Extremities: Yes: WNL Edema: No Labs: CBC, BMP 03/03/19 07:17 03/03/19 07:17 Assessment/Plan Problem List - Problems (1) COPD exacerbation Code(s): J44.1 - CHRONIC OBSTRUCTIVE PULMONARY DISEASE W (ACUTE) EXACERBATION (2) Acute hypoxemic respiratory failure Code(s): J96.01 - ACUTE RESPIRATORY FAILURE WITH HYPOXIA (3) Emphysema of lung Code(s): J43.9 - EMPHYSEMA, UNSPECIFIED (4) HTN (hypertension) Code(s): I10 - ESSENTIAL (PRIMARY) HYPERTENSION (5) Hypercapnic respiratory failure, chronic Code(s): J96.12 - CHRONIC RESPIRATORY FAILURE WITH HYPERCAPNIA (6) Pneumonia with cavity of lung Code(s): J18.9 - PNEUMONIA, UNSPECIFIED ORGANISM; J98.4 - OTHER DISORDERS OF LUNG (7) Cavitary lesion of lung Code(s): J98.4 - OTHER DISORDERS OF LUNG Assessment/Plan ABX per ID O2 as needed BD TX prednisone Singulair pulmonary rehab post discharge DR MOSLEY
[2019-03-03] MEDS ORDERED: PT OWN MED DRAWER 7, Y5N ONE (21:37)
[2019-03-03] MEDS: BUDESONIDE/FORMETEROL FUMARATE 160/4.5 mcg INHALER IH SCH (21:39)
[2019-03-03] MEDS: MIRTAZAPINE 15 MG TABLET (FP) PO SCH (21:45)
[2019-03-03] MEDS: MONTELUKAST NA 10 MG TABLET PO SCH (21:46)
[2019-03-04] MEDS ORDERED: DEXTROSE 5%-WATER - 50 ML IVPB ONE ×2 (01:02→10:12)
[2019-03-04] MEDS ORDERED: PIPERACILLIN/TAZOBACTAM 3.375 GM VIAL IVPB ONE ×2 (01:02→10:11)
[2019-03-04] MEDS: PIPERACILLIN/TAZOB 3.375 GM 3.375 GM in DEXTROSE 5%-WATER - 50 ML IVPB SCH ×2 (02:45→10:30)
[2019-03-04] MEDS: SERTRALINE HCL 50 MG TABLET (FP) PO SCH (06:09)
[2019-03-04] MEDS: ALBUTEROL SO4 2.5/IPRATROPIUM 0.5 INH SOL 3 ML VIAL.NEB. NEB SCH ×3 (08:00→15:08)
[2019-03-04] MEDS: CARBIDOPA/LEVODOPA 25/100 TABLET (FP) PO SCH ×2 (09:30→11:43)
--- NOTE | 2019-03-04 09:33 | PN ---
Progress Note, Physician History of Present Illness: stable no new issues await for sputum cx pending - Current Medication List Current Medications: Active Medications Acetaminophen (Tylenol -) 650 mg PO Q6H PRN PRN Reason: PAIN LEVEL 1-5 Albuterol/Ipratropium (Duoneb -) 1 amp NEB RQID [facility] Last Admin: 03/04/19 08:00 Dose: 1 amp Budesonide/Formoterol Fumarate (Symbicort 160/4.5mcg -) 2 puff IH BID [facility] Last Admin: 03/03/19 21:39 Dose: 2 puff Carbidopa/Levodopa (Sinemet 25/100 -) 1 each PO TID@0900,1200,1700 [facility] Last Admin: 03/03/19 17:25 Dose: 1 each Heparin Sodium (Porcine) (Heparin -) 5,000 unit SQ BID [facility] Last Admin: 03/03/19 21:41 Dose: 5,000 unit Piperacillin Sod/Tazobactam (Sod 3.375 gm/ Dextrose) 50 mls @ 100 mls/hr IVPB Q8H-IV [facility]; Protocol Last Admin: 03/04/19 02:45 Dose: 100 mls/hr Lisinopril (Prinivil) 5 mg PO BID [facility] Last Admin: 03/03/19 21:45 Dose: Not Given Mirtazapine (Remeron -) 15 mg PO HS [facility] Last Admin: 03/03/19 21:45 Dose: 15 mg Montelukast Sodium (Singulair -) 10 mg PO HS [facility] Last Admin: 03/03/19 21:46 Dose: 10 mg Nebivolol (Bystolic -) 10 mg PO DAILY [facility] Last Admin: 03/03/19 11:02 Dose: 10 mg Pantoprazole Sodium (Protonix -) 20 mg PO DAILY [facility] Last Admin: 03/03/19 11:01 Dose: 20 mg Prednisone (Deltasone -) 40 mg PO DAILY [facility] Last Admin: 03/03/19 11:02 Dose: 40 mg Sertraline HCl (Zoloft -) 50 mg PO AM [facility] Last Admin: 03/04/19 06:09 Dose: 50 mg Zolpidem Tartrate (Ambien -) 5 mg PO HS PRN PRN Reason: INSOMNIA Last Admin: 03/02/19 22:12 Dose: 5 mg - Objective Vital Signs: Vital Signs Temperature 98.5 F 03/04/19 05:30 Pulse Rate 59 L 03/04/19 05:30 Respiratory Rate 17 03/04/19 05:30 Blood Pressure 126/66 03/04/19 05:30 O2 Sat by Pulse Oximetry (%) 99 03/03/19 21:00 Constitutional: Yes: No Distress, Calm Cardiovascular: Yes: S1, S2 Respiratory: Yes: Regular, On Nasal O2, Poor Air Entry Gastrointestinal: Yes: Normal Bowel Sounds, Soft Musculoskeletal: Yes: WNL Extremities: Yes: WNL Neurological: Yes: Alert, Oriented Psychiatric: Yes: Alert, Oriented Labs: CBC, BMP 03/03/19 07:17 03/03/19 07:17 Assessment/Plan Problem List - Problems (1) Bipolar 1 disorder Code(s): F31.9 - BIPOLAR DISORDER, UNSPECIFIED (2) Cavitary lesion of lung Code(s): J98.4 - OTHER DISORDERS OF LUNG (3) Chronic kidney disease (CKD) Code(s): N18.9 - CHRONIC KIDNEY DISEASE, UNSPECIFIED (4) Acute exacerbation of chronic obstructive pulmonary disease Code(s): J44.1 - CHRONIC OBSTRUCTIVE PULMONARY DISEASE W (ACUTE) EXACERBATION (5) Anxiety Code(s): F41.9 - ANXIETY DISORDER, UNSPECIFIED (6) Depression Code(s): F32.9 - MAJOR DEPRESSIVE DISORDER, SINGLE EPISODE, UNSPECIFIED Qualifiers: Depression Type: major depressive disorder Major depression recurrence: unspecified whether recurrent Active/Remission status: currently active Major depression episode severity: mild Qualified Code(s): F32.0 - Major depressive disorder, single episode, mild (7) Emphysema of lung Code(s): J43.9 - EMPHYSEMA, UNSPECIFIED (8) HTN (hypertension) Code(s): I10 - ESSENTIAL (PRIMARY) HYPERTENSION (9) Parkinson disease Code(s): G20 - PARKINSON'S DISEASE (10) Pneumonia with cavity of lung Code(s): J18.9 - PNEUMONIA, UNSPECIFIED ORGANISM; J98.4 - OTHER DISORDERS OF LUNG (11) SOB (shortness of breath) Code(s): R06.02 - SHORTNESS OF BREATH Assessment/Plan Acute COPD Exacerbation Possible PNA lung lesion -- benign biopsy COPD Chronic respiratory failure CKD Depression plan continue current mgmt resp support await for sputum cx rest as per the team
[2019-03-04 10:03] VITALS: BP 148/69; PULSE 72; TEMP 97.7
[2019-03-04] MEDS: HEPARIN NA (PORCINE) 5,000 UNITS/ML 1ML VIAL SQ SCH (10:30)
[2019-03-04] MEDS: predniSONE 20 MG TABLET (UD) PO SCH (10:30)
[2019-03-04] MEDS: NEBIVOLOL 10 MG TABLET (FP) PO SCH (10:30)
[2019-03-04] MEDS: BUDESONIDE/FORMETEROL FUMARATE 160/4.5 mcg INHALER IH SCH (10:31)
[2019-03-04] MEDS: LISINOPRIL 5 MG TABLET (FP) PO SCH (10:31)
[2019-03-04] MEDS: PANTOPRAZOLE 20 MG TABLET (FP) PO SCH (10:31)
--- NOTE | 2019-03-04 11:59 | PN ---
Progress Note (short form) - Note Progress Note: s: no cp palps dizzy; still with sob but better today Current Medications Generic Name Dose Route Start Last Admin Trade Name Freq PRN Reason Stop Dose Admin Acetaminophen 650 mg 02/26/19 00:30 Tylenol - PO Q6H PRN PAIN LEVEL 1-5 Albuterol/Ipratropium 1 amp 02/26/19 08:00 03/04/19 08:00 Duoneb - NEB 1 amp RQID [facility] Administration Budesonide/Formoterol Fumarate 2 puff 03/01/19 22:00 03/04/19 10:31 Symbicort 160/4.5mcg - IH 2 puff BID [facility] Administration Carbidopa/Levodopa 1 each 03/01/19 18:00 03/04/19 11:43 Sinemet 25/100 - PO 1 each TID@0900,1200,1700 [facility] Administration Heparin Sodium (Porcine) 5,000 unit 02/26/19 10:00 03/04/19 10:30 Heparin - SQ 5,000 unit BID [facility] Administration Lisinopril 5 mg 02/26/19 10:00 03/04/19 10:31 Prinivil PO 5 mg BID [facility] Administration Mirtazapine 15 mg 02/26/19 22:00 03/03/19 21:45 Remeron - PO 15 mg HS [facility] Administration Montelukast Sodium 10 mg 02/26/19 22:00 03/03/19 21:46 Singulair - PO 10 mg HS [facility] Administration Nebivolol 10 mg 02/26/19 10:30 03/04/19 10:30 Bystolic - PO 10 mg DAILY [facility] Administration Pantoprazole Sodium 20 mg 02/26/19 10:15 03/04/19 10:31 Protonix - PO 20 mg DAILY [facility] Administration Prednisone 40 mg 03/01/19 10:00 03/04/19 10:30 Deltasone - PO 40 mg DAILY [facility] Administration Sertraline HCl 50 mg 02/26/19 07:00 03/04/19 06:09 Zoloft - PO 50 mg AM [facility] Administration Zolpidem Tartrate 5 mg 03/02/19 01:03 03/02/19 22:12 Ambien - PO 5 mg HS PRN Administration INSOMNIA Vital Signs Period Temp Pulse Resp BP Sys/[place] Pulse Ox Last 24 Hr 97.7 F-98.5 F 53-72 17-20 106-148/56-70 96-99 Constitutional: Yes: No Distress, Calm Respiratory: Yes: Other (b/l rhonchi and mild exp wheezing) Cardiovascular: Yes: Regular Rate and Rhythm JVD: No Carotid Bruit: No Heart Sounds: Yes: S1, S2 (rrr) Edema: No Neurological: Yes: Alert, Oriented no jaundice diaphoresis - Other Data Labs, Other Data: CBC, BMP 03/03/19 07:17 03/03/19 07:17 NSR LAFB, no acute changes Stress Echo: Image Reviewed (mild apical ischemia 03/2018 with normal EF: degreee ischemia out of proportion to echo done 3 days prior.) Imaging - Results Chest X-ray: Image Reviewed EKG: Image Reviewed Assessment/Plan IMP: Acute exacerbation COPD 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 echo here shows nl lvef, no severe valve dz. Echo shows severe pulm htn, RV not seen well, likely relate to copd. 2. Equivocal TnI unlikely ACS (benign ECG, normal CK). Possible mild demand ischemia in setting of CKD And AECOPD. 3. Treatment of acute exacerbation COPD as per PMD and Pulmonary 4. Continue medical rx for presumed underlying chronic CAD: ASA 81/Statin and Metoprolol. 5. Outpatient AAA screen w/ US
--- NOTE | 2019-03-04 12:31 | DS ---
Physical Examination Vital Signs: Vital Signs Temperature 97.7 F 03/04/19 09:00 Pulse Rate 72 03/04/19 09:00 Respiratory Rate 18 03/04/19 09:00 Blood Pressure 148/69 03/04/19 09:00 O2 Sat by Pulse Oximetry (%) 99 03/03/19 21:00 Constitutional: Yes: No Distress, Calm Cardiovascular: Yes: Regular Rate and Rhythm Respiratory: Yes: Diminished, Rhonchi (less) Gastrointestinal: Yes: Normal Bowel Sounds, Soft. No: Tenderness Edema: No Labs: CBC, BMP 03/03/19 07:17 03/03/19 07:17 Discharge Summary Problems reviewed: Yes Reason For Visit: CHRONIC OBSTRUCTIVE PULMONAY DISEASE Current Active Problems Bipolar 1 disorder (Acute) COPD exacerbation (Acute) Cavitary lesion of lung (Acute) Chronic kidney disease (CKD) (Acute) Hospital Course: Admission Chief Complaint: SOB on exertion History of Present Illness: 89 year old male with PMhx of HTN, COPD ( on o2 at home), CKD, MDDs arrived to Emergency room for SOB on exertion that is getting worse, and failed out- patient treatment. Patient recent evaluation by PCP prescribed course of antibiotics ( PCN 10 days) and PO steroids (2 weeks). Patient reports that at baseline he uses 2L O2 while at home, but typically has no limitations to his ADLs and takes daily 30 min walks without difficulty. He reports that today he [place] from the [place] and became acutely short of breath while walking back into his home. Patient denies any chest pain, fatigue, near syncope, weakness. Patient received duonebs and steroids upon arrival by EMS. ' HOSPITAL COURSE Evaluated by Pulmonary , ID, cardiology CT: decreased size of the RUL irregular airspace opacification / diffuse emphysema: PMD notified that RUL has been biopsied and is (-) for malignancy and there was also a (-) PET scan. Started on IV lasix, Solumedrol Nebs, iv antibiotics Pt slowly became better Now on PO prednisone Completed antibiotics Stable for dc home on tapering prednisone Needs pulmonary rehab outpt [facility] sono for AAA screening Condition: Stable - Instructions Diet, Activity, Other Instructions: needs sono for AAA Referrals: Ofe Cassidy MD [Primary Care Provider] - Jonathan Aviles MD [Staff Physician] - Abner Glynn MD [Staff Physician] - - Home Medications Comprehensive Discharge Medication List: Ambulatory Orders Budesonide/Formeterol Fumarate [SYMBICORT 160/4.5mcg -] 2 inh PO BID 02/24/17 Lisinopril 5 mg PO BID 02/25/17 Metoprolol Tartrate [Lopressor -] 25 mg PO BID 02/25/17 Montelukast Na [Singulair -] 10 mg PO HS 02/25/17 Multivitamin [Poly-Vitamin] 1 each PO DAILY 04/28/17 Albuterol 0.083% Nebulizer Magi [Ventolin 0.083%] 1 neb NEB TID 04/01/18 Mirtazapine [Remeron -] 15 mg PO HS 10/29/18 Sertraline HCl 50 mg PO AM 10/29/18 Loratadine 1 tab PO DAILY 11/02/18
--- NOTE | 2019-03-04 14:45 | PN ---
Progress Note (short form) - Note Progress Note: PULMONARY Still with shortness of breath and cough. Vital Signs Period Temp Pulse Resp BP Sys/[place] Pulse Ox Last 24 Hr 97.7 F-98.5 F 53-72 17-20 106-148/59-70 96-99 Gen: NAD at rest Heart: RRR Lung: bilateral rhonchi Abd: soft, nontender Ext: no edema CBC, BMP 03/03/19 07:17 03/03/19 07:17 Active Medications Acetaminophen (Tylenol -) 650 mg PO Q6H PRN PRN Reason: PAIN LEVEL 1-5 Albuterol/Ipratropium (Duoneb -) 1 amp NEB RQID [facility] Last Admin: 03/04/19 12:30 Dose: Not Given Budesonide/Formoterol Fumarate (Symbicort 160/4.5mcg -) 2 puff IH BID [facility] Last Admin: 03/04/19 10:31 Dose: 2 puff Carbidopa/Levodopa (Sinemet 25/100 -) 1 each PO TID@0900,1200,1700 [facility] Last Admin: 03/04/19 11:43 Dose: 1 each Heparin Sodium (Porcine) (Heparin -) 5,000 unit SQ BID [facility] Last Admin: 03/04/19 10:30 Dose: 5,000 unit Lisinopril (Prinivil) 5 mg PO BID [facility] Last Admin: 03/04/19 10:31 Dose: 5 mg Mirtazapine (Remeron -) 15 mg PO HS [facility] Last Admin: 03/03/19 21:45 Dose: 15 mg Montelukast Sodium (Singulair -) 10 mg PO HS [facility] Last Admin: 03/03/19 21:46 Dose: 10 mg Nebivolol (Bystolic -) 10 mg PO DAILY [facility] Last Admin: 03/04/19 10:30 Dose: 10 mg Pantoprazole Sodium (Protonix -) 20 mg PO DAILY [facility] Last Admin: 03/04/19 10:31 Dose: 20 mg Prednisone (Deltasone -) 40 mg PO DAILY [facility] Last Admin: 03/04/19 10:30 Dose: 40 mg Sertraline HCl (Zoloft -) 50 mg PO AM [facility] Last Admin: 03/04/19 06:09 Dose: 50 mg Zolpidem Tartrate (Ambien -) 5 mg PO HS PRN PRN Reason: INSOMNIA Last Admin: 03/02/19 22:12 Dose: 5 mg A/P Acute COPD Exacerbation Pulmonary HTN +Troponins likely Demand Ischemia CAD HTN - slow prednisone taper - inhaled bronchodilators - O2 to keep Spo2 >90% - outpt PFTs and f/u - DVT prophylaxis - d/c planning in progress
== END 2019-03-04 15:23 | disposition home or self-care (01) | DRG 191 ==
LOC: JER 16:01 → JERBED 21:15 → J6S 23:50
PROVIDERS: ADMIT Internal Medicine; ATTEND Internal Medicine
DX: J44.1 Chronic obstructive pulmonary disease with (acute) exacerbation (principal); I24.8 Other forms of acute ischemic heart disease; I13.0 Hypertensive heart and chronic kidney disease with heart failure and stage 1 through stage 4 chronic kidney disease, or unspecified chronic kidney disease; J96.10 Chronic respiratory failure, unspecified whether with hypoxia or hypercapnia; D72.829 Elevated white blood cell count, unspecified; I27.20 Pulmonary hypertension, unspecified; I25.10 Atherosclerotic heart disease of native coronary artery without angina pectoris; N18.9 Chronic kidney disease, unspecified; F41.8 Other specified anxiety disorders
CPT/HCPCS: 36415; 71045-TC-FY; 71046-TC-FY; 71250-TC; 80048; 80053; 82550; 82803; 83605; 83880; 84484; 85025; 85027; 87070; 87107; 87205; 93005; 93010; 93306-TC; 94640; 97116-GP; 97161-GP; 99284-25; J1644

== ENCOUNTER 2019-04-06 18:22 | Inpatient (IN) | payer OTHER ==
[2019-04-06] MEDS ORDERED: ALBUTEROL SO4 0.083% IH SOL 2.5 MG/3 ML VIAL.NEB. NEB ONE (18:39)
[2019-04-06] MEDS ORDERED: IPRATROPIUM BR 0.02% 0.5 MG/2.5 ML VIAL.NEB. NEB ONE (18:39)
[2019-04-06] MEDS ORDERED: methylPREDNISolone NA SUCC 125 MG/2 ML VIAL IVPB ONE (18:59)
[2019-04-06] MEDS ORDERED: methylPREDNISolone NA SUCC 125 MG/2 ML VIAL ONE (19:53)
[2019-04-06 19:54] LABS: BASO % 0.3 % (0-2.0); EOS % 0.3 % (0-4.5); HEMATOCRIT 47.1 % (35.4-49); HEMOGLOBIN 15.8 GM/dL (11.7-16.9); LYMPH % 9.7 % (8-40); MCH 32.2 pg (25.7-33.7); MCHC 33.6 g/dl (32.0-35.9); MEAN CELL VOLUME 95.8 fl (80-96); MEAN PLT VOLUME 8.8 fl (7.5-11.1); NEUT % 83.7 % (42.8-82.8); PLATELET COUNT 199 K/MM3 (134-434); RBC 4.91 M/mm3 (4.00-5.60); RDW 16.8 % (11.9-15.9); WHITE BLOOD COUNT 14.9 K/mm3 (4.0-10.0)
[2019-04-06 20:16] LABS: INR 1.03 (0.83-1.09); PROTHROMBIN TIME (PATIENT) 12.2 SEC (9.7-13.0)
[2019-04-06 20:33] LABS: ALBUMIN 3.4 g/dl (3.4-5.0); BILIRUBIN,TOTAL 0.9 mg/dL (0.2-1); BLOOD UREA NITROGEN 43.8 mg/dL (7-18); CALCIUM 9.1 mg/dL (8.5-10.1); CREATININE 1.2 mg/dL (0.55-1.3)
[2019-04-06 20:34] LABS: POTASSIUM 4.8 mmol/L (3.5-5.1)
[2019-04-06] MEDS ORDERED: CEFTRIAXONE 1,000 MG in DEXTROSE 5%-WATER - 50 ML IVPB ONE (20:34)
[2019-04-06] MEDS ORDERED: ALBUTEROL SO4 2.5/IPRATROPIUM 0.5 INH SOL 3 ML VIAL.NEB. NEB ONE ×2 (20:35→20:53)
[2019-04-06] MEDS ORDERED: CEFTRIAXONE 1 GM/50 ML BAG ONE (20:53)
[2019-04-06 21:08] LABS: ANISOCYTOSIS 1+; MACROCYTOSIS 0; PLATELET ESTIMATE NORMAL
--- NOTE | 2019-04-06 22:03 | PN ---
Teaching Attending Note Name of Resident: Nia Cortés ATTENDING PHYSICIAN STATEMENT I saw and evaluated the patient. I reviewed the resident's note and discussed the case with the resident. I agree with the resident's findings and plan as documented. SUBJECTIVE: OBJECTIVE: ASSESSMENT AND PLAN:
--- NOTE | 2019-04-06 22:23 | PDOC ---
Documentation entered by Aniya Burgess SCRIBE, acting as scribe for Marii Arshad MD. Marii Arshad MD: This documentation has been prepared by the Jenifer aragon Xhesika, SCRIBE, under my direction and personally reviewed by me in its entirety. I confirm that the documentation accurately reflects all work, treatment, procedures, and medical decision making performed by me. 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 Patient notes that his dyspnea on exertion is so bad that walking short distances makes him short of breath. Patient was seen here in the ED for similar symptoms and discharged on 03/04/2019. Patient denies chest pain, headache, leg swelling, calf pain, hemoptysis lightheadedness, fever, chills, nausea, or vomiting. Denies urinary symptoms or changes in bowel movements. Allergies: NKDA Surgeries: None reported. Social: Extensive former smoker. No reported alcohol or drug use. PCP: Dr. Chen Past History - Past Medical History Allergies/Adverse Reactions: Allergies Allergy/AdvReac Type Severity Reaction Status Date / Time No Known Allergies Allergy Verified 04/06/19 19:02 Home Medications: Ambulatory Orders Budesonide/Formeterol Fumarate [SYMBICORT 160/4.5mcg -] 2 inh PO BID 02/24/17 Lisinopril 5 mg PO BID 02/25/17 Montelukast Na [Singulair -] 10 mg PO HS 02/25/17 Multivitamin [Poly-Vitamin] 1 each PO DAILY 04/28/17 Albuterol 0.083% Nebulizer Magi [Ventolin 0.083% Nebulizer Soln -] 1 neb NEB TID 04/01/18 Mirtazapine [Remeron -] 15 mg PO HS 10/29/18 Sertraline HCl 50 mg PO AM 10/29/18 Loratadine 1 tab PO DAILY 11/02/18 Carbidopa/Levodopa 25/100 [Sinemet 25/100 -] 1 each PO TID@0900,1200,1700 #30 tablet 03/04/19 Nebivolol [Bystolic -] 10 mg PO DAILY #30 tab 03/04/19 Pantoprazole Sodium [Protonix -] 20 mg PO DAILY #30 tablet.ec 03/04/19 predniSONE [Deltasone -] 10 mg PO BID 04/06/19 Anemia: No Asthma: Yes Cancer: Yes (PROSTATE, seeding) Cardiac Disorders: No CVA: No COPD: Yes (EMPHYSEMA) CHF: No Dementia: No Diabetes: No GI Disorders: No Disorders: No HTN: Yes Hypercholesterolemia: No Liver Disease: No Psychiatric Problems: Yes (BIPOLAR) Seizures: No Thyroid Disease: No - Surgical History Abdominal Surgery: No Appendectomy: No (?) Cardiac Surgery: Yes (LEFT) Cholecystectomy: Yes Lung Surgery: No Neurologic Surgery: No Orthopedic Surgery: No - Immunization History Immunization Up to Date: Yes - Psycho Social/Smoking Cessation Hx Smoking History: Former smoker Have you smoked in the past 12 months: No If you are a former smoker, when did you quit?: 1998 Hx Alcohol Use: No Drug/Substance Use Hx: No Substance Use Type: None Hx Substance Use Treatment: No Review of Systems - Review of Systems Able to Perform ROS?: Yes Comments:: 04/06/19 18:57 GENERAL/CONSTITUTIONAL: No fever or chills. No weakness. HEAD, EYES, EARS, NOSE AND THROAT: No change in vision. No ear pain or discharge. No sore throat. CARDIOVASCULAR: No chest pain. + worsening shortness of breath. RESPIRATORY: +cough. No wheezing, or hemoptysis. GASTROINTESTINAL: No nausea, vomiting, diarrhea or constipation. GENITOURINARY: No dysuria, frequency, or change in urination. MUSCULOSKELETAL: No joint or muscle swelling or pain. No neck or back pain. SKIN: No rash NEUROLOGIC: No headache, vertigo, loss of consciousness, or change in strength/ sensation. ENDOCRINE: No increased thirst. No abnormal weight change. HEMATOLOGIC/LYMPHATIC: No anemia, easy bleeding, or history of blood clots. ALLERGIC/IMMUNOLOGIC: No hives or skin allergy. *Physical Exam - Vital Signs Last Vital Signs Temp Pulse Resp BP Pulse Ox 94 H 22 H 106/65 99 04/06/19 21:20 04/06/19 21:20 04/06/19 21:20 04/06/19 21:20 - Physical Exam 04/06/19 18:57 GENERAL: Awake, alert, +disheveled HEAD: No signs of trauma LUNGS: +Coarse wheezing on all lung torres HEART: Regular rate and rhythm, normal S1 and S2, no murmurs, rubs or gallops ABDOMEN: Soft, nontender, normoactive bowel sounds. No guarding, no rebound. No masses EXTREMITIES:+Clubbing on fingernails. +pedal edema. No clubbing or cyanosis. No cords, erythema, or tenderness NEUROLOGICAL: Cranial nerves II through XII grossly intact. Normal speech, normal gait SKIN: cool, Dry, normal turgor, no rashes or lesions noted. ED Treatment Course - LABORATORY CBC & Chemistry Diagram: 04/06/19 19:30 04/06/19 19:30 - ADDITIONAL ORDERS Additional order review: Laboratory Results 04/06/19 04/06/19 04/06/19 19:45 19:45 19:30 PT with INR 12.20 INR 1.03 Sodium 139 Potassium 4.8 Chloride 104 Carbon Dioxide 28 Anion Gap 7 L BUN 43.8 H Creatinine 1.2 Est GFR (CKD-EPI)AfAm 62.64 Est GFR (CKD-EPI)NonAf 54.04 Random Glucose 132 H Calcium 9.1 Total Bilirubin 0.9 AST 36 ALT 80 H Alkaline Phosphatase 64 Creatine Kinase 86 Troponin I 0.16 H B-Natriuretic Peptide 3452.1 H Total Protein 6.0 L Albumin 3.4 04/06/19 19:30 RBC 4.91 MCV 95.8 MCHC 33.6 RDW 16.8 H MPV 8.8 Neutrophils % 83.7 H Lymphocytes % 9.7 D Monocytes % 6.0 D Eosinophils % 0.3 D Basophils % 0.3 - RADIOLOGY Radiology Studies Ordered: Category Date Time Status CHEST X-RAY PORTABLE* [RAD] Stat Radiology 04/06/19 19:02 Taken - Medications Given in the ED: ED Medications Discontinued Medications Generic Name Dose Route Start Last Admin Trade Name Freq PRN Reason Stop Dose Admin Albuterol/Ipratropium 1 amp 04/06/19 20:35 04/06/19 20:55 Duoneb - NEB 04/06/19 20:36 1 amp ONCE ONE Administration Ceftriaxone Sodium 1,000 mg/ 50 mls @ 100 mls/hr 04/06/19 20:34 04/06/19 20: 55 Dextrose IVPB 04/06/19 21:03 100 mls/hr ONCE ONE Administration Methylprednisolone Sodium Succinate 125 mg 04/06/19 18:59 04/06/19 19:55 Solu-Medrol - IVPB 04/06/19 19:00 125 mg ONCE ONE Administration Discharge - Discharge Information Problems reviewed: Yes Clinical Impression/Diagnosis: COPD exacerbation Condition: Stable - Admission Yes - Follow up/Referral - Patient Discharge Instructions - Post Discharge Activity
--- NOTE | 2019-04-06 22:52 | HP ---
Admitting History and Physical - Primary Care Physician PCP: Dr. 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 Patient notes that his dyspnea on exertion is worse even with short distance ambulation. Patient was seen here in the ED for similar symptoms and discharged on 03/04/2019. Patient denies chest pain, headache, leg swelling, calf pain, hemoptysis lightheadedness, fever, chills, nausea, or vomiting. Denies urinary symptoms or changes in bowel movements. 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 Cardiovascular: Yes: HTN, Other (Stress induced CM 03/2018) Pulmonary: Yes: COPD, O2 Dependent Renal/: Yes: Renal Inusuff Psych: Yes: Bipolar, Depression Musculoskeletal: Yes: Osteoarthritis - Past Surgical History Past Surgical History: Yes: Cholecystectomy - Smoking History Smoking history: Former smoker Have you smoked in the past 12 months: No If you are a former smoker, when did you quit?: 1998 - Alcohol/Substance Use Hx Alcohol Use: No History of Substance Use: reports: None - Social History ADL: Independent History of Recent Travel: No Home Medications - Allergies Allergies/Adverse Reactions: Allergies Allergy/AdvReac Type Severity Reaction Status Date / Time No Known Allergies Allergy Verified 04/06/19 19:02 - Home Medications Home Medications: Ambulatory Orders Budesonide/Formeterol Fumarate [SYMBICORT 160/4.5mcg -] 2 inh PO BID 02/24/17 Lisinopril 5 mg PO BID 02/25/17 Montelukast Na [Singulair -] 10 mg PO HS 02/25/17 Multivitamin [Poly-Vitamin] 1 each PO DAILY 04/28/17 Albuterol 0.083% Nebulizer Magi [Ventolin 0.083% Nebulizer Soln -] 1 neb NEB TID 04/01/18 Mirtazapine [Remeron -] 15 mg PO HS 10/29/18 Sertraline HCl 50 mg PO AM 10/29/18 Loratadine 1 tab PO DAILY 11/02/18 Carbidopa/Levodopa 25/100 [Sinemet 25/100 -] 1 each PO TID@0900,1200,1700 #30 tablet 03/04/19 Nebivolol [Bystolic -] 10 mg PO DAILY #30 tab 03/04/19 Pantoprazole Sodium [Protonix -] 20 mg PO DAILY #30 tablet.ec 03/04/19 predniSONE [Deltasone -] 10 mg PO BID 04/06/19 Physical Examination Vital Signs: Vital Signs Temperature Pulse Rate 94 H 04/06/19 21:20 Respiratory Rate 22 H 04/06/19 21:20 Blood Pressure 106/65 04/06/19 21:20 O2 Sat by Pulse Oximetry (%) 99 04/06/19 21:20 Labs: CBC, BMP 04/06/19 19:30 04/06/19 19:30 Problem List - Problems (1) COPD exacerbation Code(s): J44.1 - CHRONIC OBSTRUCTIVE PULMONARY DISEASE W (ACUTE) EXACERBATION (2) Elevated troponin Code(s): R74.8 - ABNORMAL LEVELS OF OTHER SERUM ENZYMES (3) Bipolar 1 disorder Code(s): F31.9 - BIPOLAR DISORDER, UNSPECIFIED (4) Bronchiectasis Code(s): J47.9 - BRONCHIECTASIS, UNCOMPLICATED (5) CHF (congestive heart failure) Code(s): I50.9 - HEART FAILURE, UNSPECIFIED (6) Chronic kidney disease (CKD) Code(s): N18.9 - CHRONIC KIDNEY DISEASE, UNSPECIFIED (7) Demand ischemia Code(s): I24.8 - OTHER FORMS OF ACUTE ISCHEMIC HEART DISEASE (8) HTN (hypertension) Code(s): I10 - ESSENTIAL (PRIMARY) HYPERTENSION (9) GERD (gastroesophageal reflux disease) Code(s): K21.9 - GASTRO-ESOPHAGEAL REFLUX DISEASE WITHOUT ESOPHAGITIS (10) Parkinson disease Code(s): G20 - PARKINSON'S DISEASE Assessment/Plan 89 year old male with PMhx of HTN, COPD ( on o2 at home), CKD, Bipolar disorder arrived to Emergency room for worsening Cough and SOB. # Acute COPD exacerbation Wbc: 14.9, afebrile Influenza A & B: negative CXR: no acute infiltrate noted - In ED given solu-medrol, Ceftriaxione, and nebs x1 - Continue with solu-medrol 40 mg q 8 hours - Continue with nebs QID - continue with o2 2-3 l/min #Elevated troponin likely demand ischemia has h/o of elevated trops - trop 0.16, will follow up #2 - EKG: NSR, no s/t changes - follow up cardiology # CHF bnp:3452.1 - fluids restriction - monitor I &O - Lasix 40mg x1 now - continue with Lasix 40 mg daily - Continue with KCL 20 mEq daily - follow up cardiology in AM # chronic CKD bun/cr: 43.8/1.2 around baseline - monitor renal function # HTN -Lisinopril 5 mg PO BID -Nebivolol 10 mg PO DAILY Monitor BP closely # MDDs -Mirtazapine 15 mg PO HS -Sertraline HCl 50 mg PO AM monitor for acute behavioral issues #Parkinson's disease -Sinemet 25/100 1 tab PO TID #GERD - Pantoprazole Sodium 40 mg BID VTE: Heparin SQ TID FEN: fluid restriction, monitor lytes, cardiac diet Visit type - Emergency Visit Emergency Visit: Yes ED Registration Date: 04/06/19 Care time: The patient presented to the Emergency Department on the above date and was hospitalized for further evaluation of their emergent condition. - New Patient This patient is new to me today: Yes Date on this admission: 04/06/19 - Critical Care Critical Care patient: No
[2019-04-06] MEDS ORDERED: FUROSEMIDE 40 MG/4 ML INJECTABLE VIAL IVPUSH ONE (23:07)
[2019-04-06] MEDS ORDERED: FUROSEMIDE 40 MG/4 ML INJECTABLE VIAL ONE (23:24)
[2019-04-07] MEDS ORDERED: ALBUTEROL SO4 2.5/IPRATROPIUM 0.5 INH SOL 3 ML VIAL.NEB. NEB ONE (01:32)
[2019-04-07] MEDS: ALBUTEROL SO4 2.5/IPRATROPIUM 0.5 INH SOL 3 ML VIAL.NEB. NEB SCH ×5 (01:35→20:43)
[2019-04-07] MEDS: methylPREDNISolone NA SUCC 40 MG/1 ML VIAL IVPUSH SCH ×3 (03:21→18:04)
[2019-04-07] MEDS: HEPARIN NA (PORCINE) 5,000 UNITS/ML 1ML VIAL SQ SCH ×2 (06:29→14:04)
[2019-04-07] MEDS: SERTRALINE HCL 50 MG TABLET (FP) PO SCH (06:29)
[2019-04-07] MEDS ORDERED: SODIUM CHLORIDE 0.45% 1,000 ML IV SCH (07:00)
[2019-04-07 07:54] LABS: BASO % 0.1 % (0-2.0); HEMATOCRIT 43.6 % (35.4-49); LYMPH % 3.3 % (8-40); MCH 32.7 pg (25.7-33.7); MCHC 34.3 g/dl (32.0-35.9); MEAN CELL VOLUME 95.1 fl (80-96); MEAN PLT VOLUME 8.4 fl (7.5-11.1); MONO % 1.3 % (3.8-10.2); NEUT % 95.3 % (42.8-82.8); PLATELET COUNT 186 K/MM3 (134-434); RBC 4.59 M/mm3 (4.00-5.60); RDW 16.7 % (11.9-15.9); WHITE BLOOD COUNT 12.3 K/mm3 (4.0-10.0)
[2019-04-07 08:13] LABS: BLOOD UREA NITROGEN 42.7 mg/dL (7-18); CALCIUM 8.8 mg/dL (8.5-10.1); CREATININE 1.4 mg/dL (0.55-1.3); POTASSIUM 4.4 mmol/L (3.5-5.1)
[2019-04-07] MEDS ORDERED: DEXTROSE 5%-WATER - 50 ML IVPB ONE ×2 (08:55→17:35)
[2019-04-07] MEDS ORDERED: PIPERACILLIN/TAZOBACTAM 3.375 GM VIAL IVPB ONE ×2 (08:55→17:35)
[2019-04-07] MEDS: PIPERACILLIN/TAZOB 3.375 GM 3.375 GM in DEXTROSE 5%-WATER - 50 ML IVPB SCH ×2 (09:51→18:04)
[2019-04-07] MEDS: POTASSIUM CHLORIDE TABS 10 MEQ TABLET.ER (FP) PO SCH (09:51)
[2019-04-07] MEDS: PANTOPRAZOLE SODIUM 40 MG VIAL IVPUSH SCH ×2 (09:51→22:15)
[2019-04-07] MEDS ORDERED: LISINOPRIL 5 MG TABLET (FP) PO SCH (10:00)
[2019-04-07] MEDS ORDERED: FUROSEMIDE 40 MG/4 ML INJECTABLE VIAL IVPUSH SCH (10:00)
[2019-04-07] MEDS ORDERED: NEBIVOLOL 10 MG TABLET (FP) PO SCH (10:00)
[2019-04-07] MEDS ORDERED: PT OWN MED DRAWER 7, Y5N ONE (10:16)
[2019-04-07] MEDS: CARBIDOPA/LEVODOPA 25/100 TABLET (FP) PO SCH ×3 (11:20→18:04)
--- NOTE | 2019-04-07 11:26 | CON.CARD ---
Cardiology Consult (text) - Consultation Consultation Note: Consult Specialty:: Cardiology Referred by:: Dr. 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 no chest pain, palps, dizziness, dyspnea. complains of mild edema worse in LLE, better today. SOB with walking short distances to bathroom. 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 Cardio/Vascular: Yes: HTN, Other (Stress induced CM 03/2018) Pulmonary: Yes: COPD, O2 Dependent Renal/: Yes: Renal Inusuff Psych: Yes: Bipolar, Depression Musculoskeletal: Yes: Osteoarthritis - Past Surgical History Past Surgical History: Yes: Cholecystectomy - Alcohol/Substance Use Hx Alcohol Use: No History of Substance Use: reports: None - Smoking History Smoking history: Former smoker Have you smoked in the past 12 months: No If you are a former smoker, when did you quit?: 1998 - Social History ADL: Independent History of Recent Travel: No Home Medications Allergies Allergy/AdvReac Type Severity Reaction Status Date / Time No Known Allergies Allergy Verified 04/06/19 19:02 Home Medications Medication Instructions Recorded Budesonide/Formeterol Fumarate 2 inh PO BID 02/24/17 [SYMBICORT 160/4.5mcg -] Lisinopril 5 mg PO BID 02/25/17 Montelukast Na [Singulair -] 10 mg PO HS 02/25/17 Multivitamin [Poly-Vitamin] 1 each PO DAILY 04/28/17 Albuterol 0.083% Nebulizer Magi 1 neb NEB TID 04/01/18 [Ventolin 0.083% Nebulizer Soln -] Mirtazapine [Remeron -] 15 mg PO HS 10/29/18 Sertraline HCl 50 mg PO AM 10/29/18 Loratadine 1 tab PO DAILY 11/02/18 Carbidopa/Levodopa 25/100 [Sinemet 1 each PO TID@0900,1200,1700 #30 03/04/19 25/100 -] tablet Nebivolol [Bystolic -] 10 mg PO DAILY #30 tab 03/04/19 Pantoprazole Sodium [Protonix -] 20 mg PO DAILY #30 tablet.ec 03/04/19 predniSONE [Deltasone -] 10 mg PO BID 04/06/19 Review of Systems - Review of Systems Constitutional: reports: No Symptoms Eyes: reports: No Symptoms Cardiovascular: reports: Shortness of Breath Respiratory: reports: Cough, Exercise Intolerance, SOB on Exertion Gastrointestinal: denies: No Symptoms, Abdominal Pain, Bloating, Constipation, Diarrhea, Dysphagia, Indigestion, Melena, Nausea, Rectal Bleeding, Vomiting, Vomiting Blood, Other Musculoskeletal: denies: No Symptoms, Back Pain, Crepitus, Decreased ROM, Extremity Pain, Joint Pain, Joint Swelling, Muscle Pain, Muscle Cramps, Muscle Weakness, Other Integumentary: denies: No Symptoms, Blister, Bruising, Change in Color, Eczema, Erythema, Incision, Lesions, Lump, Pallor, Pruritis, Rash, Wound, Other Neurological: denies: No Symptoms, Change in LOC, Change in Speech, Confusion, Dizziness, Headache, Incoordination, Numbness, Parasthesia, Pre-Existing Deficit , Seizure, Syncope, Tremors, Unsteady Gait, Weakness, Other Endocrine: denies: No Symptoms, Excessive Sweating, Flushing, Increased Hunger, Increased Thirst, Intolerance to Cold, Intolerance to Heat, Unexplained Weight Gain, Unexplained Weight Loss, Other Hematology/Lymphatic: denies: No Symptoms, Easily Bruised, Excessive Bleeding, Swollen Glands, Other - Risk Factors Known Risk Factors: Yes: Hypertension, Smoking Vital Signs: Vital Signs Period Temp Pulse Resp BP Sys/[place] Pulse Ox Last 24 Hr 97.5 F-98.3 F 91-109 15-24 106-138/54-89 95-100 Constitutional: Yes: No Distress, Calm Respiratory: Yes: Other (diffuse jossie rhonchi, exp wheezing) Cardiovascular: Yes: Regular Rate and Rhythm JVD: No Carotid Bruit: No Heart Sounds: Yes: S1, S2 (rrr) Edema: 1+ LLE Neurological: Yes: Alert, Oriented no jaundice diaphoresis not agitated Laboratory Last Values WBC 12.3 K/mm3 (4.0-10.0) H 04/07/19 06:52 RBC 4.59 M/mm3 (4.00-5.60) 04/07/19 06:52 Hgb 15.0 GM/dL (11.7-16.9) 04/07/19 06:52 Hct 43.6 % (35.4-49) 04/07/19 06:52 MCV 95.1 fl (80-96) 04/07/19 06:52 MCH 32.7 pg (25.7-33.7) 04/07/19 06:52 MCHC 34.3 g/dl (32.0-35.9) 04/07/19 06:52 RDW 16.7 % (11.9-15.9) H 04/07/19 06:52 Plt Count 186 K/MM3 (134-434) 04/07/19 06:52 MPV 8.4 fl (7.5-11.1) 04/07/19 06:52 Absolute Neuts (auto) 11.8 K/mm3 (1.5-8.0) H 04/07/19 06:52 Neutrophils % 95.3 % (42.8-82.8) H 04/07/19 06:52 Neutrophils % (Manual) 89.9 % (42.8-82.8) H 04/06/19 19:30 Band Neutrophils % 0.9 % 04/06/19 19:30 Lymphocytes % 3.3 % (8-40) L D 04/07/19 06:52 Lymphocytes % (Manual) 5.5 % (8-40) L D 04/06/19 19:30 Monocytes % 1.3 % (3.8-10.2) L 04/07/19 06:52 Monocytes % (Manual) 2 % (3.8-10.2) L 04/06/19 19:30 Eosinophils % 0.0 % (0-4.5) D 04/07/19 06:52 Eosinophils % (Manual) 0.0 % (0-4.5) 04/06/19 19:30 Basophils % 0.1 % (0-2.0) 04/07/19 06:52 Basophils % (Manual) 0.0 % (0-2.0) 04/06/19 19:30 Myelocytes % (Man) 0 % (0-2) 04/06/19 19:30 Promyelocytes % (Man) 0 % (0-2) 04/06/19 19:30 Blast Cells % (Manual) 0 % (0-0) 04/06/19 19:30 Nucleated RBC % 0 % (0-0) 04/07/19 06:52 Metamyelocytes 0 % (0-2) 04/06/19 19:30 Hypochromia 0 04/06/19 19:30 Platelet Estimate Normal 04/06/19 19:30 Polychromasia 0 04/06/19 19:30 Poikilocytosis 1+ 04/06/19 19:30 Anisocytosis 1+ 04/06/19 19:30 Microcytosis 1+ 04/06/19 19:30 Macrocytosis 0 04/06/19 19:30 PT with INR 12.20 SEC (9.7-13.0) 04/06/19 19:45 INR 1.03 (0.83-1.09) 04/06/19 19:45 Sodium 139 mmol/L (136-145) 04/07/19 06:52 Potassium 4.4 mmol/L (3.5-5.1) 04/07/19 06:52 Chloride 100 mmol/L (98-107) 04/07/19 06:52 Carbon Dioxide 29 mmol/L (21-32) 04/07/19 06:52 Anion Gap 11 MMOL/L (8-16) 04/07/19 06:52 BUN 42.7 mg/dL (7-18) H 04/07/19 06:52 Creatinine 1.4 mg/dL (0.55-1.3) H 04/07/19 06:52 Est GFR (CKD-EPI)AfAm 51.99 04/07/19 06:52 Est GFR (CKD-EPI)NonAf 44.86 04/07/19 06:52 Random Glucose 166 mg/dL (74-106) H 04/07/19 06:52 Calcium 8.8 mg/dL (8.5-10.1) 04/07/19 06:52 Total Bilirubin 0.9 mg/dL (0.2-1) 04/06/19 19:30 AST 36 U/L (15-37) 04/06/19 19:30 ALT 80 U/L (13-61) H 04/06/19 19:30 Alkaline Phosphatase 64 U/L (45-117) 04/06/19 19:30 Creatine Kinase 86 U/L (26-308) 04/06/19 19:30 Troponin I 0.16 ng/ml (0.00-0.05) H 04/06/19 19:30 B-Natriuretic Peptide 3452.1 pg/ml (5-450) H 04/06/19 19:45 Total Protein 6.0 g/dl (6.4-8.2) L 04/06/19 19:30 Albumin 3.4 g/dl (3.4-5.0) 04/06/19 19:30 Influenza A (Rapid) Negative (Negative) 04/06/19 19:55 Influenza B (Rapid) Negative (Negative) 04/06/19 19:55 NSR LAFB, no acute changes Stress Echo: Image Reviewed (mild apical ischemia 03/2018 with normal EF: degreee ischemia out of proportion to echo done 3 days prior.) CXR: no congestion EKG: sinus, RBBB echo 02/2019 tds, nl LV function, RV not well visualized, severe pujlm HTN >60 mmHg RVSP Shortness of breath, COPD - likely acute COPD exacerbation - complains of worsening edema with steroids - cont IV lasix for now - manage per pulm elevated trop - trop 0.16, repeat ordered - EKG no ischemic changes - less likely ACS, likely demand in setting of COPD exac history of stress induced CM - nl EF on echo 02/2019 - cont lisinopril, bystolic CAD - hx abnl nuc stress 03/2018 managed medically - cont aspirin, statin, bystolic HTN - stable, cont current meds pulm HTN - likely in setting of severe COPD
[2019-04-07 11:52] LABS: ANISOCYTOSIS 0; MACROCYTOSIS 0; PLATELET ESTIMATE NORMAL
--- NOTE | 2019-04-07 12:40 | EKG ---
Test Reason : Blood Pressure : / mmHG Vent. Rate : 095 BPM Atrial Rate : 095 BPM P-R Int : 176 ms QRS Dur : 120 ms QT Int : 366 ms P-R-T Axes : 076 213 000 degrees QTc Int : 459 ms NORMAL SINUS RHYTHM WITH SINUS ARRHYTHMIA RIGHT BUNDLE BRANCH BLOCK ABNORMAL ECG WHEN COMPARED WITH ECG OF 25-FEB-2019 17:06, PREMATURE VENTRICULAR COMPLEXES ARE NO LONGER PRESENT RIGHT BUNDLE BRANCH BLOCK IS NOW PRESENT Confirmed by PRASHANT MERLOS, KAYLI ([id number]) on 04/07/2019 12:40:17 PM Referred By: Confirmed By:KAYLI CERDA MD
--- NOTE | 2019-04-07 13:10 | PN ---
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 Patient notes that his dyspnea on exertion is worse even with short distance ambulation. Patient was seen here in the ED for similar symptoms and discharged on 03/04/2019. Patient denies chest pain, headache, leg swelling, calf pain, hemoptysis lightheadedness, fever, chills, nausea, or vomiting. Denies urinary symptoms or changes in bowel movements. Pt is having COPD excerbation Hypotension today with BP meds - Current Medication List Current Medications: Active Medications Acetaminophen (Tylenol -) 650 mg PO Q4H PRN PRN Reason: PAIN LEVEL 1-5 Albuterol/Ipratropium (Duoneb -) 1 amp NEB RQID [facility] Last Admin: 04/07/19 01:35 Dose: 1 amp Carbidopa/Levodopa (Sinemet 25/100 -) 1 each PO TID@0900,1200,1700 [facility] Last Admin: 04/07/19 11:20 Dose: 1 each Furosemide (Lasix Injection -) 40 mg IVPUSH DAILY [facility] Last Admin: 04/07/19 09:51 Dose: 40 mg Heparin Sodium (Porcine) (Heparin -) 5,000 unit SQ TID [facility] Last Admin: 04/07/19 06:29 Dose: 5,000 unit Piperacillin Sod/Tazobactam (Sod 3.375 gm/ Dextrose) 50 mls @ 100 mls/hr IVPB Q8H-IV [facility]; Protocol Sodium Chloride (1/2 Normal Saline) 1,000 mls @ 40 mls/hr IV ASDIR [facility] Last Admin: 04/07/19 09:35 Dose: 40 mls/hr Piperacillin Sod/Tazobactam (Sod 3.375 gm/ Dextrose) 50 mls @ 100 mls/hr IVPB Q8H-IV [facility]; Protocol Stop: 04/08/19 02:29 Last Admin: 04/07/19 09:51 Dose: 100 mls/hr Lisinopril (Prinivil) 5 mg PO BID [facility] Last Admin: 04/07/19 11:19 Dose: 5 mg Methylprednisolone Sodium Succinate (Solu-Medrol -) 40 mg IVPUSH Q8H-IV [facility] Last Admin: 04/07/19 09:51 Dose: 40 mg Mirtazapine (Remeron -) 15 mg PO HS [facility] Nebivolol (Bystolic -) 10 mg PO DAILY [facility] Last Admin: 04/07/19 11:19 Dose: 10 mg Pantoprazole Sodium (Protonix Iv) 40 mg IVPUSH BID [facility] Last Admin: 04/07/19 09:51 Dose: 40 mg Potassium Chloride (K-Dur -) 20 meq PO DAILY [facility] Last Admin: 04/07/19 09:51 Dose: 20 meq Sertraline HCl (Zoloft -) 50 mg PO AM [facility] Last Admin: 04/07/19 06:29 Dose: 50 mg - Objective Vital Signs: Vital Signs Temperature 98.3 F 04/07/19 10:00 Pulse Rate 107 H 04/07/19 10:00 Respiratory Rate 20 04/07/19 10:00 Blood Pressure 116/54 L 04/07/19 10:00 O2 Sat by Pulse Oximetry (%) 96 04/07/19 09:00 Constitutional: Yes: Anxious, Mild Distress Eyes: Yes: Conjunctiva Clear, EOM Intact HENT: Yes: Atraumatic, Normocephalic Neck: Yes: Supple, Trachea Midline Cardiovascular: Yes: Regular Rate and Rhythm, S1, S2 Respiratory: Yes: Regular, CTA Bilaterally Gastrointestinal: Yes: Normal Bowel Sounds, Soft Musculoskeletal: Yes: Joint Stiffness Edema: No Peripheral Pulses WNL: Yes Integumentary: Yes: Other (Ecchymosis) Neurological: Yes: Alert, Cran Nerves II-XII Intact Labs: CBC, BMP 04/07/19 06:52 04/07/19 06:52 INR, PTT INR 1.03 (0.83-1.09) 04/06/19 19:45 Problem List - Problems (1) Pulmonary hypertension Code(s): I27.20 - PULMONARY HYPERTENSION, UNSPECIFIED (2) GERD (gastroesophageal reflux disease) Code(s): K21.9 - GASTRO-ESOPHAGEAL REFLUX DISEASE WITHOUT ESOPHAGITIS (3) Acute diastolic (congestive) heart failure Code(s): I50.31 - ACUTE DIASTOLIC (CONGESTIVE) HEART FAILURE (4) Acute exacerbation of chronic obstructive pulmonary disease Code(s): J44.1 - CHRONIC OBSTRUCTIVE PULMONARY DISEASE W (ACUTE) EXACERBATION (5) Acute hypoxemic respiratory failure Code(s): J96.01 - ACUTE RESPIRATORY FAILURE WITH HYPOXIA (6) Bipolar 1 disorder Code(s): F31.9 - BIPOLAR DISORDER, UNSPECIFIED (7) Bronchiectasis Code(s): J47.9 - BRONCHIECTASIS, UNCOMPLICATED (8) CHF (congestive heart failure), NYHA class II Code(s): I50.9 - HEART FAILURE, UNSPECIFIED (9) Chronic kidney disease (CKD) Code(s): N18.9 - CHRONIC KIDNEY DISEASE, UNSPECIFIED (10) Elevated troponin Code(s): R74.8 - ABNORMAL LEVELS OF OTHER SERUM ENZYMES (11) Emphysema of lung Code(s): J43.9 - EMPHYSEMA, UNSPECIFIED (12) Hypotension Code(s): I95.9 - HYPOTENSION, UNSPECIFIED (13) HTN (hypertension) Code(s): I10 - ESSENTIAL (PRIMARY) HYPERTENSION (14) Insomnia disorder Code(s): G47.00 - INSOMNIA, UNSPECIFIED Assessment/Plan (1) Pulmonary hypertension Code(s): I27.20 - PULMONARY HYPERTENSION, UNSPECIFIED (2) GERD (gastroesophageal reflux disease) Code(s): K21.9 - GASTRO-ESOPHAGEAL REFLUX DISEASE WITHOUT ESOPHAGITIS (3) Acute diastolic (congestive) heart failure Code(s): I50.31 - ACUTE DIASTOLIC (CONGESTIVE) HEART FAILURE (4) Acute exacerbation of chronic obstructive pulmonary disease Code(s): J44.1 - CHRONIC OBSTRUCTIVE PULMONARY DISEASE W (ACUTE) EXACERBATION (5) Acute hypoxemic respiratory failure Code(s): J96.01 - ACUTE RESPIRATORY FAILURE WITH HYPOXIA (6) Bipolar 1 disorder Code(s): F31.9 - BIPOLAR DISORDER, UNSPECIFIED (7) Bronchiectasis Code(s): J47.9 - BRONCHIECTASIS, UNCOMPLICATED (8) CHF (congestive heart failure), NYHA class II Code(s): I50.9 - HEART FAILURE, UNSPECIFIED (9) Chronic kidney disease (CKD) Code(s): N18.9 - CHRONIC KIDNEY DISEASE, UNSPECIFIED (10) Elevated troponin Code(s): R74.8 - ABNORMAL LEVELS OF OTHER SERUM ENZYMES (11) Emphysema of lung Code(s): J43.9 - EMPHYSEMA, UNSPECIFIED (12) Hypotension Code(s): I95.9 - HYPOTENSION, UNSPECIFIED (13) HTN (hypertension) Code(s): I10 - ESSENTIAL (PRIMARY) HYPERTENSION (14) Insomnia disorder Code(s): G47.00 - INSOMNIA, UNSPECIFIED Pt had a bout of Hypotension Pt was given IV 2 boluses Pt was transferred to [facility] BP meds
[2019-04-07] MEDS: ACETAMINOPHEN 325 MG TABLET (FP) PO PRN (14:31)
[2019-04-07] MEDS ORDERED: SODIUM CHLORIDE 0.45% 500 ML IV ONE (16:30)
[2019-04-07] MEDS: SODIUM CHLORIDE 0.45% 1,000 ML IV SCH (22:14)
[2019-04-07] MEDS: ZINC OXIDE/PANTHENOL/VITAMIN E 56 GM TUBE TP SCH (22:14)
[2019-04-07] MEDS: SILVER SULFADIAZINE 1% TOP CREAM 50 GM JAR TP SCH (22:15)
[2019-04-07] MEDS: ASCORBIC ACID 500 MG TABLET (FP) PO SCH (22:15)
[2019-04-07] MEDS: MIRTAZAPINE 15 MG TABLET (FP) PO SCH (22:15)
[2019-04-08] MEDS ORDERED: DEXTROSE 5%-WATER - 50 ML IVPB ONE ×3 (02:04→17:18)
[2019-04-08] MEDS ORDERED: PIPERACILLIN/TAZOBACTAM 3.375 GM VIAL IVPB ONE ×2 (02:04→12:07)
[2019-04-08] MEDS: methylPREDNISolone NA SUCC 40 MG/1 ML VIAL IVPUSH SCH ×3 (02:11→17:23)
[2019-04-08] MEDS: PIPERACILLIN/TAZOB 3.375 GM 3.375 GM in DEXTROSE 5%-WATER - 50 ML IVPB SCH (02:12)
[2019-04-08] MEDS: SERTRALINE HCL 50 MG TABLET (FP) PO SCH (06:13)
[2019-04-08 07:08] LABS: BASO % 0.3 % (0-2.0); HEMATOCRIT 41.7 % (35.4-49); HEMOGLOBIN 14.4 GM/dL (11.7-16.9); LYMPH % 3.1 % (8-40); MCH 32.6 pg (25.7-33.7); MCHC 34.5 g/dl (32.0-35.9); MEAN CELL VOLUME 94.7 fl (80-96); MEAN PLT VOLUME 8.1 fl (7.5-11.1); MONO % 2.2 % (3.8-10.2); NEUT % 94.4 % (42.8-82.8); PLATELET COUNT 209 K/MM3 (134-434); RDW 16.7 % (11.9-15.9); WHITE BLOOD COUNT 14.6 K/mm3 (4.0-10.0)
[2019-04-08 07:48] LABS: BLOOD UREA NITROGEN 51.3 mg/dL (7-18); CALCIUM 8.8 mg/dL (8.5-10.1); CREATININE 1.9 mg/dL (0.55-1.3); POTASSIUM 5.4 mmol/L (3.5-5.1)
[2019-04-08] MEDS: ALBUTEROL SO4 2.5/IPRATROPIUM 0.5 INH SOL 3 ML VIAL.NEB. NEB SCH ×4 (08:20→21:09)
[2019-04-08 09:29] LABS: ANISOCYTOSIS 0; MACROCYTOSIS 0; PLATELET ESTIMATE NORMAL
[2019-04-08] MEDS: ENOXAPARIN NA (PORCINE) 40 MG/0.4 ML DISP.SYRIN SQ SCH (09:43)
[2019-04-08] MEDS: PANTOPRAZOLE SODIUM 40 MG VIAL IVPUSH SCH ×3 (09:43→21:59)
[2019-04-08] MEDS: ASCORBIC ACID 500 MG TABLET (FP) PO SCH ×2 (09:44→21:51)
[2019-04-08] MEDS: ZINC OXIDE/PANTHENOL/VITAMIN E 56 GM TUBE TP SCH ×2 (09:44→21:52)
[2019-04-08] MEDS: SILVER SULFADIAZINE 1% TOP CREAM 50 GM JAR TP SCH ×2 (09:45→21:51)
[2019-04-08] MEDS ORDERED: PIPERACILLIN/TAZOB 3.375 GM 3.375 GM in DEXTROSE 5%-WATER - 50 ML IVPB SCH (10:00)
--- NOTE | 2019-04-08 10:50 | PN ---
Progress Note (short form) - Note Progress Note: s: no cp palps dizzy; sob persists, a little better Current Medications Generic Name Dose Route Start Last Admin Trade Name Freq PRN Reason Stop Dose Admin Acetaminophen 650 mg 04/07/19 00:02 04/07/19 14:31 Tylenol - PO 650 mg Q4H PRN Administration PAIN LEVEL 1-5 Albuterol/Ipratropium 1 amp 04/06/19 08:00 04/08/19 08:20 Duoneb - NEB 1 amp RQID [facility] Administration Ascorbic Acid 500 mg 04/07/19 22:00 04/08/19 09:44 Vitamin C - PO 500 mg BID [facility] Administration Carbidopa/Levodopa 1 each 04/07/19 09:00 04/07/19 18:04 Sinemet 25/100 - PO 1 each TID@0900,1200,1700 [facility] Administration Enoxaparin Sodium 40 mg 04/08/19 10:00 04/08/19 09:43 Lovenox - SQ 40 mg DAILY [facility] Administration Piperacillin Sod/Tazobactam 50 mls @ 100 mls/hr 04/08/19 10:00 Sod 3.375 gm/ Dextrose IVPB Q8H-IV [facility] Protocol Sodium Chloride 1,000 mls @ 70 mls/hr 04/07/19 21:30 04/07/19 22:14 1/2 Normal Saline IV 70 mls/hr ASDIR [facility] Administration Methylprednisolone Sodium Succinate 40 mg 04/07/19 02:00 04/08/19 09:43 Solu-Medrol - IVPUSH 40 mg Q8H-IV [facility] Administration Mirtazapine 15 mg 04/07/19 22:00 04/07/19 22:15 Remeron - PO 15 mg HS [facility] Administration Pantoprazole Sodium 40 mg 04/07/19 10:00 04/08/19 09:43 Protonix Iv IVPUSH 40 mg BID [facility] Administration Potassium Chloride 20 meq 04/07/19 10:00 04/07/19 09:51 K-Dur - PO 20 meq DAILY [facility] Administration Sertraline HCl 50 mg 04/07/19 07:00 04/08/19 06:13 Zoloft - PO 50 mg AM [facility] Administration Silver Sulfadiazine 1 applic 04/07/19 22:00 04/08/19 09:45 Silvadene - TP 1 applic BID [facility] Administration Zinc Oxide/Panthenol/Vitamin E 1 applic 04/07/19 22:00 04/08/19 09:44 Balmex Cream - TP 1 applic BID [facility] Administration Vital Signs Period Temp Pulse Resp BP Sys/[place] Pulse Ox Last 24 Hr 97.3 F-98.2 F 54-97 16-20 84-127/53-75 96 Constitutional: Yes: No Distress, Calm Respiratory: Yes: Other (diffuse jossie rhonchi, exp wheezing) Cardiovascular: Yes: Regular Rate and Rhythm JVD: No Carotid Bruit: No Heart Sounds: Yes: S1, S2 (rrr) Edema: no Neurological: Yes: Alert, Oriented no jaundice diaphoresis not agitated CBC, BMP 04/08/19 06:30 04/08/19 06:30 NSR LAFB, no acute changes Stress Echo: Image Reviewed (mild apical ischemia 03/2018 with normal EF: degreee ischemia out of proportion to echo done 3 days prior.) CXR: no congestion EKG: sinus, RBBB echo 02/2019 tds, nl LV function, RV not well visualized, severe pujlm HTN >60 mmHg RVSP tele: sr Shortness of breath, COPD - likely acute COPD exacerbation - manage per pulm elevated trop - borderline trop, flat trend, not c/w acs - EKG no ischemic changes history of stress induced CM - nl EF on echo 02/2019 - cont lisinopril, bystolic CAD - hx abnl nuc stress 03/2018 managed medically - cont aspirin, statin, bystolic HTN - stable, cont current meds pulm HTN - likely in setting of severe COPD
[2019-04-08] MEDS ORDERED: PIPERACILLIN/TAZOB 3.375 GM 3.375 GM in DEXTROSE 5%-WATER - 50 ML IVPB ONE (11:00)
[2019-04-08] MEDS: CARBIDOPA/LEVODOPA 25/100 TABLET (FP) PO SCH ×3 (11:28→17:22)
[2019-04-08] MEDS: POTASSIUM CHLORIDE TABS 10 MEQ TABLET.ER (FP) PO SCH (11:28)
--- NOTE | 2019-04-08 12:55 | PN ---
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 Patient notes that his dyspnea on exertion is worse even with short distance ambulation. Patient was seen here in the ED for similar symptoms and discharged on 03/04/2019. Patient denies chest pain, headache, leg swelling, calf pain, hemoptysis lightheadedness, fever, chills, nausea, or vomiting. Denies urinary symptoms or changes in bowel movements. Pt is having COPD excerbation Hypotension today with BP meds Pt was sent to tele - Current Medication List Current Medications: Active Medications Acetaminophen (Tylenol -) 650 mg PO Q4H PRN PRN Reason: PAIN LEVEL 1-5 Last Admin: 04/07/19 14:31 Dose: 650 mg Albuterol/Ipratropium (Duoneb -) 1 amp NEB RQID [facility] Last Admin: 04/08/19 12:30 Dose: Not Given Ascorbic Acid (Vitamin C -) 500 mg PO BID [facility] Last Admin: 04/08/19 09:44 Dose: 500 mg Carbidopa/Levodopa (Sinemet 25/100 -) 1 each PO TID@0900,1200,1700 [facility] Last Admin: 04/08/19 12:23 Dose: 1 each Enoxaparin Sodium (Lovenox -) 40 mg SQ DAILY [facility] Last Admin: 04/08/19 09:43 Dose: 40 mg Piperacillin Sod/Tazobactam (Sod 3.375 gm/ Dextrose) 50 mls @ 100 mls/hr IVPB Q8H-IV [facility]; Protocol Sodium Chloride (1/2 Normal Saline) 1,000 mls @ 70 mls/hr IV ASDIR [facility] Last Admin: 04/07/19 22:14 Dose: 70 mls/hr Methylprednisolone Sodium Succinate (Solu-Medrol -) 40 mg IVPUSH Q8H-IV [facility] Last Admin: 04/08/19 09:43 Dose: 40 mg Mirtazapine (Remeron -) 15 mg PO HS [facility] Last Admin: 04/07/19 22:15 Dose: 15 mg Pantoprazole Sodium (Protonix Iv) 40 mg IVPUSH BID [facility] Last Admin: 04/08/19 09:43 Dose: 40 mg Potassium Chloride (K-Dur -) 20 meq PO DAILY [facility] Last Admin: 04/08/19 11:28 Dose: Not Given Sertraline HCl (Zoloft -) 50 mg PO AM [facility] Last Admin: 04/08/19 06:13 Dose: 50 mg Silver Sulfadiazine (Silvadene -) 1 applic TP BID [facility] Last Admin: 04/08/19 09:45 Dose: 1 applic Zinc Oxide/Panthenol/Vitamin E (Balmex Cream -) 1 applic TP BID [facility] Last Admin: 04/08/19 09:44 Dose: 1 applic - Objective Vital Signs: Vital Signs Temperature 97.3 F L 04/08/19 08:20 Pulse Rate 61 04/08/19 08:20 Respiratory Rate 16 04/08/19 08:20 Blood Pressure 127/64 04/08/19 08:20 O2 Sat by Pulse Oximetry (%) 96 04/08/19 09:00 Constitutional: Yes: Calm Eyes: Yes: Conjunctiva Clear, EOM Intact HENT: Yes: Atraumatic, Normocephalic Neck: Yes: Supple, Trachea Midline Cardiovascular: Yes: Regular Rate and Rhythm, S1, S2 Respiratory: Yes: Regular, CTA Bilaterally Gastrointestinal: Yes: Normal Bowel Sounds, Soft Musculoskeletal: Yes: Joint Stiffness Edema: No Peripheral Pulses WNL: Yes Neurological: Yes: Alert, Oriented, Cran Nerves II-XII Intact Labs: CBC, BMP 04/08/19 06:30 04/08/19 06:30 INR, PTT INR 1.03 (0.83-1.09) 04/06/19 19:45 Problem List - Problems (1) Pulmonary hypertension Code(s): I27.20 - PULMONARY HYPERTENSION, UNSPECIFIED (2) GERD (gastroesophageal reflux disease) Code(s): K21.9 - GASTRO-ESOPHAGEAL REFLUX DISEASE WITHOUT ESOPHAGITIS (3) Acute diastolic (congestive) heart failure Code(s): I50.31 - ACUTE DIASTOLIC (CONGESTIVE) HEART FAILURE (4) Acute exacerbation of chronic obstructive pulmonary disease Code(s): J44.1 - CHRONIC OBSTRUCTIVE PULMONARY DISEASE W (ACUTE) EXACERBATION (5) Acute hypoxemic respiratory failure Code(s): J96.01 - ACUTE RESPIRATORY FAILURE WITH HYPOXIA (6) Bipolar 1 disorder Code(s): F31.9 - BIPOLAR DISORDER, UNSPECIFIED (7) Bronchiectasis Code(s): J47.9 - BRONCHIECTASIS, UNCOMPLICATED (8) CHF (congestive heart failure), NYHA class II Code(s): I50.9 - HEART FAILURE, UNSPECIFIED (9) Chronic kidney disease (CKD) Code(s): N18.9 - CHRONIC KIDNEY DISEASE, UNSPECIFIED (10) Elevated troponin Code(s): R74.8 - ABNORMAL LEVELS OF OTHER SERUM ENZYMES (11) Emphysema of lung Code(s): J43.9 - EMPHYSEMA, UNSPECIFIED (12) Hypotension Code(s): I95.9 - HYPOTENSION, UNSPECIFIED (13) HTN (hypertension) Code(s): I10 - ESSENTIAL (PRIMARY) HYPERTENSION (14) Insomnia disorder Code(s): G47.00 - INSOMNIA, UNSPECIFIED Assessment/Plan (1) Pulmonary hypertension Code(s): I27.20 - PULMONARY HYPERTENSION, UNSPECIFIED (2) GERD (gastroesophageal reflux disease) Code(s): K21.9 - GASTRO-ESOPHAGEAL REFLUX DISEASE WITHOUT ESOPHAGITIS (3) Acute diastolic (congestive) heart failure Code(s): I50.31 - ACUTE DIASTOLIC (CONGESTIVE) HEART FAILURE (4) Acute exacerbation of chronic obstructive pulmonary disease Code(s): J44.1 - CHRONIC OBSTRUCTIVE PULMONARY DISEASE W (ACUTE) EXACERBATION (5) Acute hypoxemic respiratory failure Code(s): J96.01 - ACUTE RESPIRATORY FAILURE WITH HYPOXIA (6) Bipolar 1 disorder Code(s): F31.9 - BIPOLAR DISORDER, UNSPECIFIED (7) Bronchiectasis Code(s): J47.9 - BRONCHIECTASIS, UNCOMPLICATED (8) CHF (congestive heart failure), NYHA class II Code(s): I50.9 - HEART FAILURE, UNSPECIFIED (9) Chronic kidney disease (CKD) Code(s): N18.9 - CHRONIC KIDNEY DISEASE, UNSPECIFIED (10) Elevated troponin Code(s): R74.8 - ABNORMAL LEVELS OF OTHER SERUM ENZYMES (11) Emphysema of lung Code(s): J43.9 - EMPHYSEMA, UNSPECIFIED (12) Hypotension Code(s): I95.9 - HYPOTENSION, UNSPECIFIED (13) HTN (hypertension) Code(s): I10 - ESSENTIAL (PRIMARY) HYPERTENSION (14) Insomnia disorder Code(s): G47.00 - INSOMNIA, UNSPECIFIED Pt had a bout of Hypotension Pt was given IV 2 boluses Pt was transferred to Tele Hold BP meds Today BP is better now
--- NOTE | 2019-04-08 13:17 | CON.PULM ---
Consult Consult Specialty:: PULMONARY Referred by:: Dr Orellana Reason for Consultation:: COPD - History of Present Illness Chief Complaint: shortness of breath History of Present Illness: 89yo male with h/o HTN, CKD, COPD, chronic hypoxic respiratory failure, bronchiectasis who was admitted with worsening shortness of breath and cough. No fevers, chills or sweats. No chest pain. Cough is nonproductive and he has been wheezing. No nausea, vomiting. Pt was recently admitted with COPD exacerbation. He is a former long time smoker. 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) Pulmonary: Yes: COPD, O2 Dependent Renal/: Yes: Renal Inusuff Psych: Yes: Bipolar, Depression Musculoskeletal: Yes: Osteoarthritis - Past Surgical History Past Surgical History: Yes: Cholecystectomy - Alcohol/Substance Use Hx Alcohol Use: No History of Substance Use: reports: None - Smoking History Smoking history: Former smoker Have you smoked in the past 12 months: No If you are a former smoker, when did you quit?: 1998 - Social History ADL: Independent History of Recent Travel: No Home Medications - Allergies Allergies/Adverse Reactions: Allergies Allergy/AdvReac Type Severity Reaction Status Date / Time No Known Allergies Allergy Verified 04/06/19 19:02 - Home Medications Home Medications: Ambulatory Orders Budesonide/Formeterol Fumarate [SYMBICORT 160/4.5mcg -] 2 inh PO BID 02/24/17 Lisinopril 5 mg PO BID 02/25/17 Montelukast Na [Singulair -] 10 mg PO HS 02/25/17 Multivitamin [Poly-Vitamin] 1 each PO DAILY 04/28/17 Albuterol 0.083% Nebulizer Magi [Ventolin 0.083% Nebulizer Soln -] 1 neb NEB TID 04/01/18 Mirtazapine [Remeron -] 15 mg PO HS 10/29/18 Sertraline HCl 50 mg PO AM 10/29/18 Loratadine 1 tab PO DAILY 11/02/18 Carbidopa/Levodopa 25/100 [Sinemet 25/100 -] 1 each PO TID@0900,1200,1700 #30 tablet 03/04/19 Nebivolol [Bystolic -] 10 mg PO DAILY #30 tab 03/04/19 Pantoprazole Sodium [Protonix -] 20 mg PO DAILY #30 tablet.ec 03/04/19 predniSONE [Deltasone -] 10 mg PO BID 04/06/19 Review of Systems - Review of Systems Constitutional: reports: Weakness. denies: Chills, Fever Eyes: denies: Recent Change in Vision HENT: denies: Nasal Congestion, Throat Pain Neck: denies: Stiffness, Tenderness Cardiovascular: reports: Shortness of Breath. denies: Chest Pain, Edema, Palpitations Respiratory: reports: Cough, SOB on Exertion, Wheezing. denies: Hemoptysis Gastrointestinal: denies: Abdominal Pain, Nausea, Vomiting Genitourinary: denies: Dysuria, Hematuria Neurological: denies: Dizziness, Headache Endocrine: denies: Unexplained Weight Loss Physical Exam Vital Sings: Vital Signs Temperature 97.3 F L 04/08/19 08:20 Pulse Rate 61 04/08/19 08:20 Respiratory Rate 16 04/08/19 08:20 Blood Pressure 127/64 04/08/19 08:20 O2 Sat by Pulse Oximetry (%) 96 04/08/19 09:00 Constitutional: Yes: Other (mildly tachypneic with speaking) Eyes: Yes: Conjunctiva Clear, EOM Intact HENT: Yes: Atraumatic, Normocephalic Neck: Yes: Supple, Trachea Midline Cardiovascular: Yes: Regular Rate and Rhythm Respiratory: Yes: Rhonchi, Wheezes ...Clubbing: No Gastrointestinal: Yes: Normal Bowel Sounds, Soft. No: Tenderness Edema: No Labs: CBC, BMP 04/08/19 06:30 04/08/19 06:30 Imaging - Results Chest X-ray: Report Reviewed, Image Reviewed (no infiltrates) Problem List - Problems (1) COPD exacerbation Code(s): J44.1 - CHRONIC OBSTRUCTIVE PULMONARY DISEASE W (ACUTE) EXACERBATION Assessment/Plan Acute COPD Exacerbation Chronic Hypoxic Respiratory Failure Severe Pulmonary HTN CAD HTN - IV medrol - inhaled bronchodilators standing and PRN - will add LABA - O2 to keep SpO2 >90% - DVT prophylaxis Thank you for this consult Zachary Mathias MD
[2019-04-08] MEDS ORDERED: ALBUTEROL SO4 0.083% IH SOL 2.5 MG/3 ML VIAL.NEB. NEB PRN (13:19)
[2019-04-08] MEDS: SODIUM CHLORIDE 0.45% 1,000 ML IV SCH (15:01)
[2019-04-08] MEDS: BUDESONIDE/FORMETEROL FUMARATE 160/4.5 mcg INHALER IH SCH ×2 (15:02→21:51)
--- NOTE | 2019-04-08 16:31 | CON.ID ---
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 Patient notes that his dyspnea on exertion is worse even with short distance ambulation. Patient was seen here in the ED for similar symptoms and discharged on 03/04/2019. Patient denies chest pain, headache, leg swelling, calf pain, hemoptysis lightheadedness, fever, chills, nausea, or vomiting. Denies urinary symptoms or changes in bowel movements. 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) Pulmonary: Yes: COPD, O2 Dependent Renal/: Yes: Renal Inusuff Psych: Yes: Bipolar, Depression Musculoskeletal: Yes: Osteoarthritis - Past Surgical History Past Surgical History: Yes: Cholecystectomy - Alcohol/Substance Use Hx Alcohol Use: No History of Substance Use: reports: None - Smoking History Smoking history: Former smoker Have you smoked in the past 12 months: No If you are a former smoker, when did you quit?: 1998 - Social History ADL: Independent History of Recent Travel: No Home Medications - Allergies Allergies/Adverse Reactions: Allergies Allergy/AdvReac Type Severity Reaction Status Date / Time No Known Allergies Allergy Verified 04/06/19 19:02 - Home Medications Home Medications: Ambulatory Orders RX: Budesonide/Formeterol Fumarate [SYMBICORT 160/4.5mcg -] 2 inh PO BID RX: Lisinopril 5 mg PO BID 02/25/17 RX: Montelukast Na [Singulair -] 10 mg PO HS 02/25/17 RX: Multivitamin [Poly-Vitamin] 1 each PO DAILY 04/28/17 RX: Albuterol 0.083% Nebulizer Magi [Ventolin 0.083% Nebulizer Soln -] 1 neb NEB TID 04/01/18 RX: Mirtazapine [Remeron -] 15 mg PO HS 10/29/18 RX: Sertraline HCl 50 mg PO AM 10/29/18 RX: Loratadine 1 tab PO DAILY 11/02/18 RX: Carbidopa/Levodopa 25/100 [Sinemet 25/100 -] 1 each PO TID@0900,1200,1700 # 30 tablet 03/04/19 RX: Nebivolol [Bystolic -] 10 mg PO DAILY #30 tab 03/04/19 RX: Pantoprazole Sodium [Protonix -] 20 mg PO DAILY #30 tablet.ec 03/04/19 RX: predniSONE [Deltasone -] 10 mg PO BID 04/06/19 Review of Systems - Review of Systems Constitutional: reports: Other Eyes: reports: No Symptoms HENT: reports: No Symptoms Neck: reports: No Symptoms Cardiovascular: reports: No Symptoms Respiratory: reports: Cough, SOB, SOB on Exertion, Other Gastrointestinal: reports: No Symptoms Genitourinary: reports: No Symptoms Musculoskeletal: reports: No Symptoms Integumentary: reports: No Symptoms Neurological: reports: No Symptoms Endocrine: reports: No Symptoms Psychiatric: reports: Anxiety Physical Exam Vital Signs: Vital Signs Temperature 97.9 F 04/08/19 14:00 Pulse Rate 75 04/08/19 14:00 Respiratory Rate 16 04/08/19 14:00 Blood Pressure 117/69 04/08/19 14:00 O2 Sat by Pulse Oximetry (%) 96 04/08/19 09:00 Constitutional: Yes: Calm, Anxious, Mild Distress Eyes: Yes: Conjunctiva Clear HENT: Yes: Atraumatic, Normocephalic Neck: Yes: Supple, Trachea Midline Cardiovascular: Yes: Regular Rate and Rhythm Respiratory: Yes: On Nasal O2, Poor Air Entry, Rhonchi, Wheezes Gastrointestinal: Yes: Normal Bowel Sounds Musculoskeletal: Yes: WNL Extremities: Yes: WNL Neurological: Yes: Alert, Oriented Psychiatric: Yes: Alert, Oriented Labs: CBC, BMP 04/08/19 06:30 04/08/19 06:30 Imaging - Results Chest X-ray: Report Reviewed, Image Reviewed Assessment/Plan Problem List - Problems (1) Pulmonary hypertension Code(s): I27.20 - PULMONARY HYPERTENSION, UNSPECIFIED (2) GERD (gastroesophageal reflux disease) Code(s): K21.9 - GASTRO-ESOPHAGEAL REFLUX DISEASE WITHOUT ESOPHAGITIS (3) Acute diastolic (congestive) heart failure Code(s): I50.31 - ACUTE DIASTOLIC (CONGESTIVE) HEART FAILURE (4) Acute exacerbation of chronic obstructive pulmonary disease Code(s): J44.1 - CHRONIC OBSTRUCTIVE PULMONARY DISEASE W (ACUTE) EXACERBATION (5) Acute hypoxemic respiratory failure Code(s): J96.01 - ACUTE RESPIRATORY FAILURE WITH HYPOXIA (6) Bipolar 1 disorder Code(s): F31.9 - BIPOLAR DISORDER, UNSPECIFIED (7) Bronchiectasis Code(s): J47.9 - BRONCHIECTASIS, UNCOMPLICATED (8) CHF (congestive heart failure), NYHA class II Code(s): I50.9 - HEART FAILURE, UNSPECIFIED (9) Chronic kidney disease (CKD) Code(s): N18.9 - CHRONIC KIDNEY DISEASE, UNSPECIFIED (10) Elevated troponin Code(s): R74.8 - ABNORMAL LEVELS OF OTHER SERUM ENZYMES (11) Emphysema of lung Code(s): J43.9 - EMPHYSEMA, UNSPECIFIED (12) Hypotension Code(s): I95.9 - HYPOTENSION, UNSPECIFIED (13) HTN (hypertension) Code(s): I10 - ESSENTIAL (PRIMARY) HYPERTENSION (14) Insomnia disorder Code(s): G47.00 - INSOMNIA, UNSPECIFIED plan i am worried if patient has pneumonia on top of copd exacerebration will start him on abx resp support pul on case
[2019-04-08] MEDS ORDERED: PIPERACILLIN/TAZOBACTAM 2.25 GM VIAL IVPB ONE (17:18)
[2019-04-08] MEDS: PIPERACILLIN/TAZOB 2.25 GM 2.25 GM in DEXTROSE 5%-WATER - 50 ML IVPB SCH (17:23)
[2019-04-08] MEDS ORDERED: FUROSEMIDE 40 MG/4 ML INJECTABLE VIAL IVPUSH ONE ×2 (18:30→19:30)
[2019-04-08] MEDS: MIRTAZAPINE 15 MG TABLET (FP) PO SCH (21:51)
[2019-04-09] MEDS ORDERED: PIPERACILLIN/TAZOBACTAM 2.25 GM VIAL IVPB ONE ×3 (00:56→17:01)
[2019-04-09] MEDS ORDERED: DEXTROSE 5%-WATER - 50 ML IVPB ONE ×3 (00:57→17:01)
[2019-04-09] MEDS: methylPREDNISolone NA SUCC 40 MG/1 ML VIAL IVPUSH SCH ×3 (01:01→17:46)
[2019-04-09] MEDS: PIPERACILLIN/TAZOB 2.25 GM 2.25 GM in DEXTROSE 5%-WATER - 50 ML IVPB SCH ×3 (01:01→17:47)
[2019-04-09] MEDS ORDERED: FUROSEMIDE 40 MG/4 ML INJECTABLE VIAL IVPUSH ONE ×2 (06:00→07:18)
[2019-04-09] MEDS: SERTRALINE HCL 50 MG TABLET (FP) PO SCH (06:03)
[2019-04-09 06:24] LABS: BASO % 0.3 % (0-2.0); HEMATOCRIT 44.2 % (35.4-49); LYMPH % 2.4 % (8-40); MCH 32.2 pg (25.7-33.7); MCHC 33.9 g/dl (32.0-35.9); MEAN PLT VOLUME 8.2 fl (7.5-11.1); MONO % 2.8 % (3.8-10.2); NEUT % 94.5 % (42.8-82.8); PLATELET COUNT 224 K/MM3 (134-434); RBC 4.65 M/mm3 (4.00-5.60); RDW 16.6 % (11.9-15.9); WHITE BLOOD COUNT 16.5 K/mm3 (4.0-10.0)
[2019-04-09 06:58] LABS: CALCIUM 9.2 mg/dL (8.5-10.1); POTASSIUM 4.8 mmol/L (3.5-5.1)
[2019-04-09] MEDS ORDERED: FUROSEMIDE 40 MG/4 ML INJECTABLE VIAL ONE (07:15)
[2019-04-09] MEDS ORDERED: NITROGLYCERIN SUBLINGUAL 1/150 0.4 MG TAB SL ONE (07:16)
[2019-04-09] MEDS: ALBUTEROL SO4 2.5/IPRATROPIUM 0.5 INH SOL 3 ML VIAL.NEB. NEB SCH ×4 (07:21→20:45)
--- NOTE | 2019-04-09 07:31 | RAPID ---
Physical Examination Vital Signs: Vital Signs Temperature 97.7 F 04/09/19 06:00 Pulse Rate 85 04/09/19 06:00 Respiratory Rate 20 04/09/19 06:00 Blood Pressure 127/78 04/09/19 06:00 O2 Sat by Pulse Oximetry (%) 96 04/08/19 21:00 T 98.6 HR 96 BP 155/89 O2 93 RR 16 Findings/Remarks: Complaint of Right-sided focal chest pain, ongoing from overnight. Admitted for COPD/CHF excerbation. Constitutional: Yes: Mild Distress Eyes: Yes: EOM Intact HENT: Yes: Normocephalic Cardiovascular: Yes: Regular Rate and Rhythm Respiratory: Yes: Other (coarse breath signs b/l) Gastrointestinal: Yes: Soft. No: Tenderness, Epigastrium, Tenderness, Rebound Extremities: No: Calf Tenderness Peripheral Pulses: Left Doralis Pedis: 1+, Right Dorsalis Pedis: 1+ Labs: CBC, BMP 04/09/19 06:10 Rapid Response - Rapid Response Assessment: possible CHFE Outcome: SL nitro Lasix 40mg IVP Duonebs CXR --pending EKG: RBBB + RVH
[2019-04-09] MEDS: POTASSIUM CHLORIDE TABS 10 MEQ TABLET.ER (FP) PO SCH (09:16)
[2019-04-09] MEDS: ENOXAPARIN NA (PORCINE) 40 MG/0.4 ML DISP.SYRIN SQ SCH (09:16)
[2019-04-09] MEDS: ASCORBIC ACID 500 MG TABLET (FP) PO SCH ×2 (09:16→22:14)
[2019-04-09] MEDS: CARBIDOPA/LEVODOPA 25/100 TABLET (FP) PO SCH ×3 (09:16→17:47)
[2019-04-09] MEDS: ZINC OXIDE/PANTHENOL/VITAMIN E 56 GM TUBE TP SCH ×2 (09:18→22:15)
[2019-04-09] MEDS: BUDESONIDE/FORMETEROL FUMARATE 160/4.5 mcg INHALER IH SCH ×2 (09:19→22:16)
[2019-04-09] MEDS: SILVER SULFADIAZINE 1% TOP CREAM 50 GM JAR TP SCH ×2 (09:35→22:16)
[2019-04-09] MEDS: PANTOPRAZOLE SODIUM 40 MG VIAL IVPUSH SCH ×2 (09:35→22:15)
--- NOTE | 2019-04-09 09:46 | PN ---
Progress Note, Physician Chief Complaint: Denies complaints D/w RN: earlier this AM rapid response called due to right sided CP and SOB. This in setting of IVF being increased prior. Team assessed, gave IV Lasix and one SLNTG and patient improved. When prompted, he does recall above. CXR: no sig effusions or volume overload. TELE: Sinus rhythm, ST, artifact History of Present Illness: weight is down - Current Medication List Current Medications: Active Medications Acetaminophen (Tylenol -) 650 mg PO Q4H PRN PRN Reason: PAIN LEVEL 1-5 Last Admin: 04/07/19 14:31 Dose: 650 mg Albuterol Sulfate (Ventolin 0.083% Nebulizer Soln -) 1 amp NEB Q4H PRN PRN Reason: SHORT OF BREATH/WHEEZING Albuterol/Ipratropium (Duoneb -) 1 amp NEB RQID [facility] Last Admin: 04/09/19 07:21 Dose: 1 amp Ascorbic Acid (Vitamin C -) 500 mg PO BID [facility] Last Admin: 04/09/19 09:16 Dose: 500 mg Budesonide/Formoterol Fumarate (Symbicort 160/4.5mcg -) 2 puff IH BID [facility] Last Admin: 04/09/19 09:19 Dose: 2 puff Carbidopa/Levodopa (Sinemet 25/100 -) 1 each PO TID@0900,1200,1700 [facility] Last Admin: 04/09/19 09:16 Dose: 1 each Enoxaparin Sodium (Lovenox -) 40 mg SQ DAILY [facility] Last Admin: 04/09/19 09:16 Dose: 40 mg Sodium Chloride (1/2 Normal Saline) 1,000 mls @ 70 mls/hr IV ASDIR NADIA Last Admin: 04/08/19 15:01 Dose: 70 mls/hr Piperacillin Sod/Tazobactam (Sod 2.25 gm/ Dextrose) 50 mls @ 100 mls/hr IVPB Q8H-IV [facility]IA; Protocol Last Admin: 04/09/19 09:16 Dose: 100 mls/hr Methylprednisolone Sodium Succinate (Solu-Medrol -) 40 mg IVPUSH Q8H-IV [facility] Last Admin: 04/09/19 09:35 Dose: 40 mg Mirtazapine (Remeron -) 15 mg PO HS [facility] Last Admin: 04/08/19 21:51 Dose: 15 mg Pantoprazole Sodium (Protonix Iv) 40 mg IVPUSH BID [facility] Last Admin: 04/09/19 09:35 Dose: 40 mg Potassium Chloride (K-Dur -) 20 meq PO DAILY [facility] Last Admin: 04/09/19 09:16 Dose: 20 meq Sertraline HCl (Zoloft -) 50 mg PO AM [facility] Last Admin: 04/09/19 06:03 Dose: 50 mg Silver Sulfadiazine (Silvadene -) 1 applic TP BID [facility] Last Admin: 04/09/19 09:35 Dose: 1 applic Zinc Oxide/Panthenol/Vitamin E (Balmex Cream -) 1 applic TP BID [facility] Last Admin: 04/09/19 09:18 Dose: 1 applic - Objective Vital Signs: Vital Signs Temperature 98.3 F 04/09/19 09:00 Pulse Rate 95 H 04/09/19 09:00 Respiratory Rate 20 04/09/19 09:00 Blood Pressure 132/86 04/09/19 09:00 O2 Sat by Pulse Oximetry (%) 96 04/08/19 21:00 Constitutional: Yes: No Distress Eyes: Yes: Conjunctiva Clear Cardiovascular: Yes: Regular Rate and Rhythm Respiratory: Yes: Rhonchi Gastrointestinal: Yes: Soft (NT) Edema: No Neurological: Yes: Alert, Oriented Labs: CBC, BMP 04/09/19 06:10 04/09/19 06:10 INR, PTT INR 1.03 (0.83-1.09) 04/06/19 19:45 Laboratory Tests 04/06/19 04/07/19 04/08/19 19:45 06:52 06:30 WBC Hgb Plt Count Sodium Creatinine Calcium Troponin I 0.10 H 0.13 H B-Natriuretic Peptide 3452.1 H 04/09/19 04/09/19 06:10 06:10 WBC 16.5 H Hgb 15.0 Plt Count 224 Sodium 139 Creatinine 2.0 H Calcium 9.2 Troponin I 0.15 H B-Natriuretic Peptide - ....Imaging EKG: Image Reviewed Assessment/Plan echo 02/2019 tds, nl LV function, RV not well visualized, severe pujlm HTN >60 mmHg RVSP tele: sr Shortness of breath, COPD: - likely acute COPD exacerbation - manage per pulm elevated trop: - borderline trop, flat trend, not c/w acs - EKG no ischemic changes history of stress induced CM: with mild acute on chronic diastolic CHF exacerbation in setting of increased IVF -rapidly improved after IV Lasix x 1 this AM, CXR ok. -Would start PO Lasix while receiving extra volume in form of IV abx and IV steroids and monitor renal fx closely - nl EF on echo 02/2019 - cont lisinopril, bystolic CAD: - hx abnl nuc stress 03/2018 managed medically - cont aspirin, statin, bystolic HTN: - stable, cont current meds pulm HTN: - likely in setting of severe COPD
[2019-04-09 10:18] LABS: ANISOCYTOSIS 1+; PLATELET ESTIMATE NORMAL
--- NOTE | 2019-04-09 10:48 | EKG ---
Test Reason : Blood Pressure : / mmHG Vent. Rate : 096 BPM Atrial Rate : 096 BPM P-R Int : 184 ms QRS Dur : 110 ms QT Int : 368 ms P-R-T Axes : 072 209 024 degrees QTc Int : 464 ms POOR DATA QUALITY, INTERPRETATION MAY BE ADVERSELY AFFECTED SINUS RHYTHM WITH FUSION COMPLEXES RIGHT BUNDLE BRANCH BLOCK , PLUS RIGHT VENTRICULAR HYPERTROPHY ABNORMAL ECG WHEN COMPARED WITH ECG OF 06-APR-2019 19:10, FUSION COMPLEXES ARE NOW PRESENT Confirmed by SWAPNA CHAPA MD ([id number]) on 04/09/2019 10:47:54 AM Referred By: Confirmed By:SWAPNA CHAPA MD
--- NOTE | 2019-04-09 12:01 | PN ---
Progress Note (short form) - Note Progress Note: Events from this AM noted. 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 Symptoms improved with Lasix and discontinuing IVF. Intake & Output 04/06/19 04/07/19 04/08/19 04/09/19 23:59 23:59 23:59 23:59 Intake Total 870 2520 60 Output Total 1600 1400 560 Balance -730 1120 -500 Weight 138 lb 138 lb 138 lb 134 lb 9.6 oz Last Vital Signs Temp Pulse Resp BP Pulse Ox 98.3 F 95 H 20 132/86 96 04/09/19 09:00 04/09/19 09:00 04/09/19 09:00 04/09/19 09:00 04/09/19 09:00 Active Medications Acetaminophen (Tylenol -) 650 mg PO Q4H PRN PRN Reason: PAIN LEVEL 1-5 Last Admin: 04/07/19 14:31 Dose: 650 mg Albuterol Sulfate (Ventolin 0.083% Nebulizer Soln -) 1 amp NEB Q4H PRN PRN Reason: SHORT OF BREATH/WHEEZING Albuterol/Ipratropium (Duoneb -) 1 amp NEB RQID [facility] Last Admin: 04/09/19 11:32 Dose: 1 amp Ascorbic Acid (Vitamin C -) 500 mg PO BID [facility] Last Admin: 04/09/19 09:16 Dose: 500 mg Budesonide/Formoterol Fumarate (Symbicort 160/4.5mcg -) 2 puff IH BID [facility] Last Admin: 04/09/19 09:19 Dose: 2 puff Carbidopa/Levodopa (Sinemet 25/100 -) 1 each PO TID@0900,1200,1700 [facility] Last Admin: 04/09/19 09:16 Dose: 1 each Enoxaparin Sodium (Lovenox -) 40 mg SQ DAILY [facility] Last Admin: 04/09/19 09:16 Dose: 40 mg Sodium Chloride (1/2 Normal Saline) 1,000 mls @ 70 mls/hr IV ASDIR [facility] Last Admin: 04/08/19 15:01 Dose: 70 mls/hr Piperacillin Sod/Tazobactam (Sod 2.25 gm/ Dextrose) 50 mls @ 100 mls/hr IVPB Q8H-IV NADIA; Protocol Last Admin: 04/09/19 09:16 Dose: 100 mls/hr Methylprednisolone Sodium Succinate (Solu-Medrol -) 40 mg IVPUSH Q8H-IV [facility] Last Admin: 04/09/19 09:35 Dose: 40 mg Mirtazapine (Remeron -) 15 mg PO HS [facility] Last Admin: 04/08/19 21:51 Dose: 15 mg Pantoprazole Sodium (Protonix Iv) 40 mg IVPUSH BID [facility] Last Admin: 04/09/19 09:35 Dose: 40 mg Potassium Chloride (K-Dur -) 20 meq PO DAILY [facility] Last Admin: 04/09/19 09:16 Dose: 20 meq Sertraline HCl (Zoloft -) 50 mg PO AM [facility] Last Admin: 04/09/19 06:03 Dose: 50 mg Silver Sulfadiazine (Silvadene -) 1 applic TP BID [facility] Last Admin: 04/09/19 09:35 Dose: 1 applic Zinc Oxide/Panthenol/Vitamin E (Balmex Cream -) 1 applic TP BID [facility] Last Admin: 04/09/19 09:18 Dose: 1 applic Constitutional: Yes: Awake and alert, mildly tachypneic with speaking Eyes: Yes: Conjunctiva Clear, EOM Intact HENT: Yes: Atraumatic, Normocephalic Neck: Yes: Supple, Trachea Midline Cardiovascular: Yes: Regular Rate and Rhythm Respiratory: Yes: Bilateral Rales and Rhonchi, mild Wheezes ...Clubbing: No Gastrointestinal: Yes: Normal Bowel Sounds, Soft. No: Tenderness Edema: No Labs: Laboratory Results - last 24 hr 04/09/19 04/09/19 04/09/19 06:10 06:10 07:30 WBC 16.5 H RBC 4.65 Hgb 15.0 Hct 44.2 MCV 95.0 MCH 32.2 MCHC 33.9 RDW 16.6 H Plt Count 224 MPV 8.2 Absolute Neuts (auto) 15.6 H Neutrophils % 94.5 H Neutrophils % (Manual) 95.0 H Band Neutrophils % 0.0 Lymphocytes % 2.4 L D Lymphocytes % (Manual) 2.0 L D Monocytes % 2.8 L Monocytes % (Manual) 3 L D Eosinophils % 0.0 Eosinophils % (Manual) 0.0 Basophils % 0.3 Basophils % (Manual) 0.0 Myelocytes % (Man) 0 Promyelocytes % (Man) 0 Blast Cells % (Manual) 0 Nucleated RBC % 0 Metamyelocytes 0 Platelet Estimate Normal Anisocytosis 1+ Microcytosis 1+ Sodium 139 Potassium 4.8 Chloride 96 L Carbon Dioxide 31 Anion Gap 11 BUN 65.0 H Creatinine 2.0 H Est GFR (CKD-EPI)AfAm 33.78 Est GFR (CKD-EPI)NonAf 29.14 Random Glucose 148 H Calcium 9.2 Creatine Kinase 94 Troponin I 0.15 H 0.16 H Problem List - Problems (1) COPD exacerbation Code(s): J44.1 - CHRONIC OBSTRUCTIVE PULMONARY DISEASE W (ACUTE) EXACERBATION Assessment/Plan Acute COPD Exacerbation Acute CHF Chronic Hypoxic Respiratory Failure Severe Pulmonary HTN CAD HTN - Lasix as needed - IV medrol - inhaled bronchodilators standing and PRN - BD TX - O2 to keep SpO2 >90% - DVT prophylaxis Dr Martinez
--- NOTE | 2019-04-09 12:08 | PN ---
Progress Note, Physician History of Present Illness: feels slightly better anxious - Current Medication List Current Medications: Active Medications Acetaminophen (Tylenol -) 650 mg PO Q4H PRN PRN Reason: PAIN LEVEL 1-5 Last Admin: 04/07/19 14:31 Dose: 650 mg Albuterol Sulfate (Ventolin 0.083% Nebulizer Soln -) 1 amp NEB Q4H PRN PRN Reason: SHORT OF BREATH/WHEEZING Albuterol/Ipratropium (Duoneb -) 1 amp NEB RQID [facility] Last Admin: 04/09/19 11:32 Dose: 1 amp Ascorbic Acid (Vitamin C -) 500 mg PO BID [facility] Last Admin: 04/09/19 09:16 Dose: 500 mg Budesonide/Formoterol Fumarate (Symbicort 160/4.5mcg -) 2 puff IH BID [facility] Last Admin: 04/09/19 09:19 Dose: 2 puff Carbidopa/Levodopa (Sinemet 25/100 -) 1 each PO TID@0900,1200,1700 [facility] Last Admin: 04/09/19 12:07 Dose: 1 each Enoxaparin Sodium (Lovenox -) 40 mg SQ DAILY [facility] Last Admin: 04/09/19 09:16 Dose: 40 mg Sodium Chloride (1/2 Normal Saline) 1,000 mls @ 70 mls/hr IV ASDIR [facility] Last Admin: 04/08/19 15:01 Dose: 70 mls/hr Piperacillin Sod/Tazobactam (Sod 2.25 gm/ Dextrose) 50 mls @ 100 mls/hr IVPB Q8H-IV [facility]; Protocol Last Admin: 04/09/19 09:16 Dose: 100 mls/hr Methylprednisolone Sodium Succinate (Solu-Medrol -) 40 mg IVPUSH Q8H-IV [facility] Last Admin: 04/09/19 09:35 Dose: 40 mg Mirtazapine (Remeron -) 15 mg PO HS [facility] Last Admin: 04/08/19 21:51 Dose: 15 mg Pantoprazole Sodium (Protonix Iv) 40 mg IVPUSH BID [facility] Last Admin: 04/09/19 09:35 Dose: 40 mg Potassium Chloride (K-Dur -) 20 meq PO DAILY [facility] Last Admin: 04/09/19 09:16 Dose: 20 meq Sertraline HCl (Zoloft -) 50 mg PO AM [facility] Last Admin: 04/09/19 06:03 Dose: 50 mg Silver Sulfadiazine (Silvadene -) 1 applic TP BID [facility] Last Admin: 04/09/19 09:35 Dose: 1 applic Zinc Oxide/Panthenol/Vitamin E (Balmex Cream -) 1 applic TP BID [facility] Last Admin: 04/09/19 09:18 Dose: 1 applic - Objective Vital Signs: Vital Signs Temperature 98.3 F 04/09/19 09:00 Pulse Rate 95 H 04/09/19 09:00 Respiratory Rate 20 04/09/19 09:00 Blood Pressure 132/86 04/09/19 09:00 O2 Sat by Pulse Oximetry (%) 96 04/09/19 09:00 Constitutional: Yes: Calm, Mild Distress Cardiovascular: Yes: S1, S2 Respiratory: Yes: Regular, On Nasal O2, SOB Gastrointestinal: Yes: Normal Bowel Sounds, Soft Musculoskeletal: Yes: WNL Extremities: Yes: WNL Neurological: Yes: Alert, Oriented Psychiatric: Yes: Alert, Oriented Labs: CBC, BMP 04/09/19 06:10 04/09/19 06:10 INR, PTT INR 1.03 (0.83-1.09) 04/06/19 19:45 Assessment/Plan roblem List - Problems (1) COPD exacerbation Code(s): J44.1 - CHRONIC OBSTRUCTIVE PULMONARY DISEASE W (ACUTE) EXACERBATION pneumonia Assessment/Plan Acute COPD Exacerbation Acute CHF Chronic Hypoxic Respiratory Failure Severe Pulmonary HTN CAD HTN plan continue current mgmt sputum cx resp support rest as per the team
--- NOTE | 2019-04-09 18:12 | PN ---
Progress Note, Physician Chief Complaint: Pt had and episode of SOB at night off IV fuids IV lasix got better morning pt had rapid response with IV Lasix Chest pain got resolved after lasix Pul odema seocdary to volume over load off IV fluids Noted Cardiology and Pul eval. 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 Patient notes that his dyspnea on exertion is worse even with short distance ambulation. Patient was seen here in the ED for similar symptoms and discharged on 03/04/2019. Patient denies chest pain, headache, leg swelling, calf pain, hemoptysis lightheadedness, fever, chills, nausea, or vomiting. Denies urinary symptoms or changes in bowel movements. Flash Pul odema Off IV fluidsd IV lasix Hypotension resolved - Current Medication List Current Medications: Active Medications Acetaminophen (Tylenol -) 650 mg PO Q4H PRN PRN Reason: PAIN LEVEL 1-5 Last Admin: 04/07/19 14:31 Dose: 650 mg Albuterol Sulfate (Ventolin 0.083% Nebulizer Soln -) 1 amp NEB Q4H PRN PRN Reason: SHORT OF BREATH/WHEEZING Albuterol/Ipratropium (Duoneb -) 1 amp NEB RQID [facility] Last Admin: 04/09/19 16:31 Dose: 1 amp Ascorbic Acid (Vitamin C -) 500 mg PO BID [facility] Last Admin: 04/09/19 09:16 Dose: 500 mg Budesonide/Formoterol Fumarate (Symbicort 160/4.5mcg -) 2 puff IH BID [facility] Last Admin: 04/09/19 09:19 Dose: 2 puff Carbidopa/Levodopa (Sinemet 25/100 -) 1 each PO TID@0900,1200,1700 [facility] Last Admin: 04/09/19 17:47 Dose: 1 each Enoxaparin Sodium (Lovenox -) 40 mg SQ DAILY [facility] Last Admin: 04/09/19 09:16 Dose: 40 mg Sodium Chloride (1/2 Normal Saline) 1,000 mls @ 70 mls/hr IV ASDIR [facility] Last Admin: 04/08/19 15:01 Dose: 70 mls/hr Piperacillin Sod/Tazobactam (Sod 2.25 gm/ Dextrose) 50 mls @ 100 mls/hr IVPB Q8H-IV [facility]; Protocol Last Admin: 04/09/19 17:47 Dose: 100 mls/hr Methylprednisolone Sodium Succinate (Solu-Medrol -) 40 mg IVPUSH Q8H-IV [facility] Last Admin: 04/09/19 17:46 Dose: 40 mg Mirtazapine (Remeron -) 15 mg PO HS [facility] Last Admin: 04/08/19 21:51 Dose: 15 mg Pantoprazole Sodium (Protonix Iv) 40 mg IVPUSH BID [facility] Last Admin: 04/09/19 09:35 Dose: 40 mg Potassium Chloride (K-Dur -) 20 meq PO DAILY [facility] Last Admin: 04/09/19 09:16 Dose: 20 meq Sertraline HCl (Zoloft -) 50 mg PO AM [facility] Last Admin: 04/09/19 06:03 Dose: 50 mg Silver Sulfadiazine (Silvadene -) 1 applic TP BID [facility] Last Admin: 04/09/19 09:35 Dose: 1 applic Zinc Oxide/Panthenol/Vitamin E (Balmex Cream -) 1 applic TP BID [facility] Last Admin: 04/09/19 09:18 Dose: 1 applic - Objective Vital Signs: Vital Signs Temperature 98.3 F 04/09/19 17:45 Pulse Rate 97 H 04/09/19 17:45 Respiratory Rate 20 04/09/19 17:45 Blood Pressure 122/77 04/09/19 17:45 O2 Sat by Pulse Oximetry (%) 96 04/09/19 09:00 Constitutional: Yes: No Distress Eyes: Yes: Conjunctiva Clear, EOM Intact HENT: Yes: Atraumatic, Normocephalic Neck: Yes: Supple, Trachea Midline Cardiovascular: Yes: Regular Rate and Rhythm, S1, S2 Respiratory: Yes: Regular, CTA Bilaterally Gastrointestinal: Yes: Normal Bowel Sounds, Soft Musculoskeletal: Yes: Joint Stiffness Edema: No Peripheral Pulses WNL: Yes Labs: CBC, BMP 04/09/19 06:10 04/09/19 06:10 INR, PTT INR 1.03 (0.83-1.09) 04/06/19 19:45 Problem List - Problems (1) Pulmonary hypertension Code(s): I27.20 - PULMONARY HYPERTENSION, UNSPECIFIED (2) GERD (gastroesophageal reflux disease) Code(s): K21.9 - GASTRO-ESOPHAGEAL REFLUX DISEASE WITHOUT ESOPHAGITIS (3) Acute diastolic (congestive) heart failure Code(s): I50.31 - ACUTE DIASTOLIC (CONGESTIVE) HEART FAILURE (4) Acute exacerbation of chronic obstructive pulmonary disease Code(s): J44.1 - CHRONIC OBSTRUCTIVE PULMONARY DISEASE W (ACUTE) EXACERBATION (5) Acute hypoxemic respiratory failure Code(s): J96.01 - ACUTE RESPIRATORY FAILURE WITH HYPOXIA (6) Bipolar 1 disorder Code(s): F31.9 - BIPOLAR DISORDER, UNSPECIFIED (7) Bronchiectasis Code(s): J47.9 - BRONCHIECTASIS, UNCOMPLICATED (8) CHF (congestive heart failure), NYHA class II Code(s): I50.9 - HEART FAILURE, UNSPECIFIED (9) Chronic kidney disease (CKD) Code(s): N18.9 - CHRONIC KIDNEY DISEASE, UNSPECIFIED (10) Elevated troponin Code(s): R74.8 - ABNORMAL LEVELS OF OTHER SERUM ENZYMES (11) Emphysema of lung Code(s): J43.9 - EMPHYSEMA, UNSPECIFIED (12) Hypotension Code(s): I95.9 - HYPOTENSION, UNSPECIFIED (13) HTN (hypertension) Code(s): I10 - ESSENTIAL (PRIMARY) HYPERTENSION (14) Insomnia disorder Code(s): G47.00 - INSOMNIA, UNSPECIFIED Assessment/Plan (1) Pulmonary hypertension Code(s): I27.20 - PULMONARY HYPERTENSION, UNSPECIFIED (2) GERD (gastroesophageal reflux disease) Code(s): K21.9 - GASTRO-ESOPHAGEAL REFLUX DISEASE WITHOUT ESOPHAGITIS (3) Acute diastolic (congestive) heart failure Code(s): I50.31 - ACUTE DIASTOLIC (CONGESTIVE) HEART FAILURE (4) Acute exacerbation of chronic obstructive pulmonary disease Code(s): J44.1 - CHRONIC OBSTRUCTIVE PULMONARY DISEASE W (ACUTE) EXACERBATION (5) Acute hypoxemic respiratory failure Code(s): J96.01 - ACUTE RESPIRATORY FAILURE WITH HYPOXIA (6) Bipolar 1 disorder Code(s): F31.9 - BIPOLAR DISORDER, UNSPECIFIED (7) Bronchiectasis Code(s): J47.9 - BRONCHIECTASIS, UNCOMPLICATED (8) CHF (congestive heart failure), NYHA class II Code(s): I50.9 - HEART FAILURE, UNSPECIFIED (9) Chronic kidney disease (CKD) Code(s): N18.9 - CHRONIC KIDNEY DISEASE, UNSPECIFIED (10) Elevated troponin Code(s): R74.8 - ABNORMAL LEVELS OF OTHER SERUM ENZYMES (11) Emphysema of lung Code(s): J43.9 - EMPHYSEMA, UNSPECIFIED (12) Hypotension Code(s): I95.9 - HYPOTENSION, UNSPECIFIED (13) HTN (hypertension) Code(s): I10 - ESSENTIAL (PRIMARY) HYPERTENSION (14) Insomnia disorder Code(s): G47.00 - INSOMNIA, UNSPECIFIED Pt had a bout of Hypotension Pt was given IV 2 boluses Pt was transferred to Tele Hold BP meds Today BP is better now but Night Pt had Volume over load Lasix IV got Better Today Morning Pul Odema Better with IV lasix off IV fluids now BP better off meds we will FU closely
[2019-04-09] MEDS: MIRTAZAPINE 15 MG TABLET (FP) PO SCH (22:14)
[2019-04-09] MEDS: ZOLPIDEM TARTRATE 5 MG TABLET PO SCH (22:14)
[2019-04-10] MEDS ORDERED: DEXTROSE 5%-WATER - 50 ML IVPB ONE ×2 (01:24→17:17)
[2019-04-10] MEDS ORDERED: PIPERACILLIN/TAZOBACTAM 2.25 GM VIAL IVPB ONE ×3 (01:24→17:17)
[2019-04-10] MEDS: methylPREDNISolone NA SUCC 40 MG/1 ML VIAL IVPUSH SCH ×3 (01:32→18:44)
[2019-04-10] MEDS: PIPERACILLIN/TAZOB 2.25 GM 2.25 GM in DEXTROSE 5%-WATER - 50 ML IVPB SCH ×3 (01:32→18:44)
[2019-04-10 06:14] LABS: ARTERIAL BLD GAS O2 SATURATION 95.1 % (95-98); ARTERIAL BLOOD GAS BASE EXCESS 4.4 meq/l (-2-2); ARTERIAL BLOOD GAS PCO2 41.3 mmHg (35-45); ARTERIAL BLOOD GAS PO2 78.4 mmHg (80-100); ARTERIAL BLOOD GAS pH 7.45 (7.35-7.45)
[2019-04-10 06:25] LABS: BASO % 0.2 % (0-2.0); HEMATOCRIT 44.7 % (35.4-49); HEMOGLOBIN 15.1 GM/dL (11.7-16.9); LYMPH % 2.6 % (8-40); MCHC 33.7 g/dl (32.0-35.9); MEAN PLT VOLUME 8.3 fl (7.5-11.1); MONO % 2.7 % (3.8-10.2); NEUT % 94.5 % (42.8-82.8); PLATELET COUNT 206 K/MM3 (134-434); RBC 4.71 M/mm3 (4.00-5.60); RDW 16.5 % (11.9-15.9); WHITE BLOOD COUNT 14.2 K/mm3 (4.0-10.0)
[2019-04-10] MEDS: SERTRALINE HCL 50 MG TABLET (FP) PO SCH (06:31)
[2019-04-10 06:39] LABS: ALLENS TEST POSITIVE
[2019-04-10 06:45] LABS: BLOOD UREA NITROGEN 66.5 mg/dL (7-18); CALCIUM 9.3 mg/dL (8.5-10.1); CREATININE 1.9 mg/dL (0.55-1.3); POTASSIUM 4.3 mmol/L (3.5-5.1)
--- NOTE | 2019-04-10 06:52 | PN ---
Progress Note, Physician Chief Complaint: sob, cough History of Present Illness: thinks sob is a little better than on admit no more cp no palpit, syncope - Current Medication List Current Medications: Active Medications Acetaminophen (Tylenol -) 650 mg PO Q4H PRN PRN Reason: PAIN LEVEL 1-5 Last Admin: 04/07/19 14:31 Dose: 650 mg Albuterol Sulfate (Ventolin 0.083% Nebulizer Soln -) 1 amp NEB Q4H PRN PRN Reason: SHORT OF BREATH/WHEEZING Albuterol/Ipratropium (Duoneb -) 1 amp NEB RQID [facility] Last Admin: 04/09/19 20:45 Dose: 1 amp Ascorbic Acid (Vitamin C -) 500 mg PO BID [facility] Last Admin: 04/09/19 22:14 Dose: 500 mg Budesonide/Formoterol Fumarate (Symbicort 160/4.5mcg -) 2 puff IH BID [facility] Last Admin: 04/09/19 22:16 Dose: 2 puff Carbidopa/Levodopa (Sinemet 25/100 -) 1 each PO TID@0900,1200,1700 [facility] Last Admin: 04/09/19 17:47 Dose: 1 each Enoxaparin Sodium (Lovenox -) 40 mg SQ DAILY [facility] Last Admin: 04/09/19 09:16 Dose: 40 mg Sodium Chloride (1/2 Normal Saline) 1,000 mls @ 70 mls/hr IV ASDIR [facility] Last Admin: 04/08/19 15:01 Dose: 70 mls/hr Piperacillin Sod/Tazobactam (Sod 2.25 gm/ Dextrose) 50 mls @ 100 mls/hr IVPB Q8H-IV [facility]; Protocol Last Admin: 04/10/19 01:32 Dose: 100 mls/hr Methylprednisolone Sodium Succinate (Solu-Medrol -) 40 mg IVPUSH Q8H-IV [facility] Last Admin: 04/10/19 01:32 Dose: 40 mg Mirtazapine (Remeron -) 15 mg PO HS [facility] Last Admin: 04/09/19 22:14 Dose: 15 mg Pantoprazole Sodium (Protonix Iv) 40 mg IVPUSH BID [facility] Last Admin: 04/09/19 22:15 Dose: 40 mg Potassium Chloride (K-Dur -) 20 meq PO DAILY [facility] Last Admin: 04/09/19 09:16 Dose: 20 meq Sertraline HCl (Zoloft -) 50 mg PO AM [facility] Last Admin: 04/10/19 06:31 Dose: 50 mg Silver Sulfadiazine (Silvadene -) 1 applic TP BID [facility] Last Admin: 04/09/19 22:16 Dose: 1 applic Zinc Oxide/Panthenol/Vitamin E (Balmex Cream -) 1 applic TP BID [facility] Last Admin: 04/09/19 22:15 Dose: 1 applic Zolpidem Tartrate (Ambien -) 5 mg PO HS [facility] Stop: 04/15/19 22:01 Last Admin: 04/09/19 22:14 Dose: 5 mg - Objective Vital Signs: Vital Signs Temperature 98.2 F 04/10/19 06:00 Pulse Rate 97 H 04/10/19 06:00 Respiratory Rate 18 04/10/19 06:00 Blood Pressure 132/83 04/10/19 06:00 O2 Sat by Pulse Oximetry (%) 96 04/09/19 21:00 Constitutional: Yes: Well Nourished, No Distress, Calm Cardiovascular: Yes: Regular Rate and Rhythm, Murmur. No: JVD, Gallop Respiratory: Yes: Regular, Rhonchi. No: Accessory Muscle Use, Rales, Wheezes Extremities: No: Cold Edema: No Neurological: Yes: Alert, Oriented Psychiatric: No: Agitated Labs: CBC, BMP 04/10/19 06:00 04/10/19 06:00 INR, PTT INR 1.03 (0.83-1.09) 04/06/19 19:45 Assessment/Plan echo 02/2019 tds, nl LV function, RV not well visualized, severe pujlm HTN >60 mmHg RVSP stress echo 04/07: apical ischemia tele: SR with sinus tach, brief run PAT Shortness of breath, a.e. COPD: - episode acute sob, R side cp 04/09 AM--resolved with iv lasix/SL nitro, CXR no congestion - lasix held - troponins remained flat yest-->today - steroids and BDs as doing (pulm recs) elevated trop: - borderline trop, flat trend, not c/w acs - EKG no ischemic changes DORIS on CKD: - baseline creat 1.4-1.9 - close to baseline at present, stable PSVT/PAT: - brief runs on tele - cont bb - monitor tele history of stress induced CM: with mild acute on chronic diastolic CHF exacerbation in setting of increased IVF - responded well to iv lasix x 1 on 04/09 - appears euvolemic, cxr clear, creat up a bit over baseline--holding lasix - nl EF on echo 02/2019 - cont lisinopril, bystolic CAD: - +apical ischemia 03/2018 managed medically - cont aspirin, statin, bystolic HTN: - stable, cont current meds pulm HTN: - likely in setting of severe COPD
[2019-04-10] MEDS: ALBUTEROL SO4 2.5/IPRATROPIUM 0.5 INH SOL 3 ML VIAL.NEB. NEB SCH ×4 (07:00→20:25)
[2019-04-10] MEDS: CARBIDOPA/LEVODOPA 25/100 TABLET (FP) PO SCH ×3 (09:17→18:44)
[2019-04-10] MEDS: ASCORBIC ACID 500 MG TABLET (FP) PO SCH ×2 (09:17→21:09)
[2019-04-10] MEDS: POTASSIUM CHLORIDE TABS 10 MEQ TABLET.ER (FP) PO SCH (09:17)
[2019-04-10] MEDS: PANTOPRAZOLE SODIUM 40 MG VIAL IVPUSH SCH ×2 (09:17→21:09)
[2019-04-10] MEDS: ENOXAPARIN NA (PORCINE) 40 MG/0.4 ML DISP.SYRIN SQ SCH (09:17)
[2019-04-10] MEDS: SILVER SULFADIAZINE 1% TOP CREAM 50 GM JAR TP SCH ×2 (09:19→21:09)
[2019-04-10] MEDS: ZINC OXIDE/PANTHENOL/VITAMIN E 56 GM TUBE TP SCH ×2 (09:19→21:10)
[2019-04-10] MEDS: BUDESONIDE/FORMETEROL FUMARATE 160/4.5 mcg INHALER IH SCH ×2 (09:19→21:09)
[2019-04-10 10:52] LABS: ANISOCYTOSIS 0; MACROCYTOSIS 0; PLATELET ESTIMATE NORMAL
--- NOTE | 2019-04-10 11:10 | PN ---
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 Patient notes that his dyspnea on exertion is worse even with short distance ambulation. Patient was seen here in the ED for similar symptoms and discharged on 03/04/2019. Patient denies chest pain, headache, leg swelling, calf pain, hemoptysis lightheadedness, fever, chills, nausea, or vomiting. Denies urinary symptoms or changes in bowel movements. No SOB No fever - Current Medication List Current Medications: Active Medications Acetaminophen (Tylenol -) 650 mg PO Q4H PRN PRN Reason: PAIN LEVEL 1-5 Last Admin: 04/07/19 14:31 Dose: 650 mg Albuterol Sulfate (Ventolin 0.083% Nebulizer Soln -) 1 amp NEB Q4H PRN PRN Reason: SHORT OF BREATH/WHEEZING Albuterol/Ipratropium (Duoneb -) 1 amp NEB RQID [facility] Last Admin: 04/10/19 07:00 Dose: 1 amp Ascorbic Acid (Vitamin C -) 500 mg PO BID [facility] Last Admin: 04/10/19 09:17 Dose: 500 mg Budesonide/Formoterol Fumarate (Symbicort 160/4.5mcg -) 2 puff IH BID [facility] Last Admin: 04/10/19 09:19 Dose: 2 puff Carbidopa/Levodopa (Sinemet 25/100 -) 1 each PO TID@0900,1200,1700 [facility] Last Admin: 04/10/19 09:17 Dose: 1 each Enoxaparin Sodium (Lovenox -) 40 mg SQ DAILY [facility] Last Admin: 04/10/19 09:17 Dose: 40 mg Sodium Chloride (1/2 Normal Saline) 1,000 mls @ 70 mls/hr IV ASDIR [facility] Last Admin: 04/08/19 15:01 Dose: 70 mls/hr Piperacillin Sod/Tazobactam (Sod 2.25 gm/ Dextrose) 50 mls @ 100 mls/hr IVPB Q8H-IV [facility]; Protocol Last Admin: 04/10/19 09:17 Dose: 100 mls/hr Methylprednisolone Sodium Succinate (Solu-Medrol -) 40 mg IVPUSH Q8H-IV [facility] Last Admin: 04/10/19 09:21 Dose: 40 mg Mirtazapine (Remeron -) 15 mg PO HS [facility] Last Admin: 04/09/19 22:14 Dose: 15 mg Pantoprazole Sodium (Protonix Iv) 40 mg IVPUSH BID [facility] Last Admin: 04/10/19 09:17 Dose: 40 mg Potassium Chloride (K-Dur -) 20 meq PO DAILY [facility] Last Admin: 04/10/19 09:17 Dose: 20 meq Sertraline HCl (Zoloft -) 50 mg PO AM [facility] Last Admin: 04/10/19 06:31 Dose: 50 mg Silver Sulfadiazine (Silvadene -) 1 applic TP BID [facility] Last Admin: 04/10/19 09:19 Dose: 1 applic Zinc Oxide/Panthenol/Vitamin E (Balmex Cream -) 1 applic TP BID [facility] Last Admin: 04/10/19 09:19 Dose: 1 applic Zolpidem Tartrate (Ambien -) 5 mg PO HS [facility] Stop: 04/15/19 22:01 Last Admin: 04/09/19 22:14 Dose: 5 mg - Objective Vital Signs: Vital Signs Temperature 98.4 F 04/10/19 09:03 Pulse Rate 103 H 04/10/19 09:03 Respiratory Rate 18 04/10/19 09:03 Blood Pressure 137/87 04/10/19 09:03 O2 Sat by Pulse Oximetry (%) 95 04/10/19 09:00 Constitutional: Yes: Anxious Eyes: Yes: Conjunctiva Clear, EOM Intact HENT: Yes: Atraumatic, Normocephalic Neck: Yes: Supple, Trachea Midline Cardiovascular: Yes: Regular Rate and Rhythm, S1, S2 Respiratory: Yes: Regular, CTA Bilaterally Gastrointestinal: Yes: Normal Bowel Sounds, Soft Labs: CBC, BMP 04/10/19 06:00 04/10/19 06:00 INR, PTT INR 1.03 (0.83-1.09) 04/06/19 19:45 Problem List - Problems (1) Pulmonary hypertension Code(s): I27.20 - PULMONARY HYPERTENSION, UNSPECIFIED (2) GERD (gastroesophageal reflux disease) Code(s): K21.9 - GASTRO-ESOPHAGEAL REFLUX DISEASE WITHOUT ESOPHAGITIS (3) Acute diastolic (congestive) heart failure Code(s): I50.31 - ACUTE DIASTOLIC (CONGESTIVE) HEART FAILURE (4) Acute exacerbation of chronic obstructive pulmonary disease Code(s): J44.1 - CHRONIC OBSTRUCTIVE PULMONARY DISEASE W (ACUTE) EXACERBATION (5) Acute hypoxemic respiratory failure Code(s): J96.01 - ACUTE RESPIRATORY FAILURE WITH HYPOXIA (6) Bipolar 1 disorder Code(s): F31.9 - BIPOLAR DISORDER, UNSPECIFIED (7) Bronchiectasis Code(s): J47.9 - BRONCHIECTASIS, UNCOMPLICATED (8) CHF (congestive heart failure), NYHA class II Code(s): I50.9 - HEART FAILURE, UNSPECIFIED (9) Chronic kidney disease (CKD) Code(s): N18.9 - CHRONIC KIDNEY DISEASE, UNSPECIFIED (10) Elevated troponin Code(s): R74.8 - ABNORMAL LEVELS OF OTHER SERUM ENZYMES (11) Emphysema of lung Code(s): J43.9 - EMPHYSEMA, UNSPECIFIED (12) Hypotension Code(s): I95.9 - HYPOTENSION, UNSPECIFIED (13) HTN (hypertension) Code(s): I10 - ESSENTIAL (PRIMARY) HYPERTENSION (14) Insomnia disorder Code(s): G47.00 - INSOMNIA, UNSPECIFIED Assessment/Plan (1) Pulmonary hypertension Code(s): I27.20 - PULMONARY HYPERTENSION, UNSPECIFIED (2) GERD (gastroesophageal reflux disease) Code(s): K21.9 - GASTRO-ESOPHAGEAL REFLUX DISEASE WITHOUT ESOPHAGITIS (3) Acute diastolic (congestive) heart failure Code(s): I50.31 - ACUTE DIASTOLIC (CONGESTIVE) HEART FAILURE (4) Acute exacerbation of chronic obstructive pulmonary disease Code(s): J44.1 - CHRONIC OBSTRUCTIVE PULMONARY DISEASE W (ACUTE) EXACERBATION (5) Acute hypoxemic respiratory failure Code(s): J96.01 - ACUTE RESPIRATORY FAILURE WITH HYPOXIA (6) Bipolar 1 disorder Code(s): F31.9 - BIPOLAR DISORDER, UNSPECIFIED (7) Bronchiectasis Code(s): J47.9 - BRONCHIECTASIS, UNCOMPLICATED (8) CHF (congestive heart failure), NYHA class II Code(s): I50.9 - HEART FAILURE, UNSPECIFIED (9) Chronic kidney disease (CKD) Code(s): N18.9 - CHRONIC KIDNEY DISEASE, UNSPECIFIED (10) Elevated troponin Code(s): R74.8 - ABNORMAL LEVELS OF OTHER SERUM ENZYMES (11) Emphysema of lung Code(s): J43.9 - EMPHYSEMA, UNSPECIFIED (12) Hypotension Code(s): I95.9 - HYPOTENSION, UNSPECIFIED (13) HTN (hypertension) Code(s): I10 - ESSENTIAL (PRIMARY) HYPERTENSION (14) Insomnia disorder Code(s): G47.00 - INSOMNIA, UNSPECIFIED BP better Resume his Metoprolol 25 Po daily as Hr is high Confused on and off
--- NOTE | 2019-04-10 11:17 | PN ---
Progress Note, Physician History of Present Illness: improving had chest pain yesterday cardio on case - Current Medication List Current Medications: Active Medications Acetaminophen (Tylenol -) 650 mg PO Q4H PRN PRN Reason: PAIN LEVEL 1-5 Last Admin: 04/07/19 14:31 Dose: 650 mg Albuterol Sulfate (Ventolin 0.083% Nebulizer Soln -) 1 amp NEB Q4H PRN PRN Reason: SHORT OF BREATH/WHEEZING Albuterol/Ipratropium (Duoneb -) 1 amp NEB RQID [facility] Last Admin: 04/10/19 07:00 Dose: 1 amp Ascorbic Acid (Vitamin C -) 500 mg PO BID [facility] Last Admin: 04/10/19 09:17 Dose: 500 mg Budesonide/Formoterol Fumarate (Symbicort 160/4.5mcg -) 2 puff IH BID [facility] Last Admin: 04/10/19 09:19 Dose: 2 puff Carbidopa/Levodopa (Sinemet 25/100 -) 1 each PO TID@0900,1200,1700 [facility] Last Admin: 04/10/19 09:17 Dose: 1 each Enoxaparin Sodium (Lovenox -) 40 mg SQ DAILY [facility] Last Admin: 04/10/19 09:17 Dose: 40 mg Sodium Chloride (1/2 Normal Saline) 1,000 mls @ 70 mls/hr IV ASDIR [facility] Last Admin: 04/08/19 15:01 Dose: 70 mls/hr Piperacillin Sod/Tazobactam (Sod 2.25 gm/ Dextrose) 50 mls @ 100 mls/hr IVPB Q8H-IV [facility]; Protocol Last Admin: 04/10/19 09:17 Dose: 100 mls/hr Methylprednisolone Sodium Succinate (Solu-Medrol -) 40 mg IVPUSH Q8H-IV [facility] Last Admin: 04/10/19 09:21 Dose: 40 mg Mirtazapine (Remeron -) 15 mg PO HS [facility] Last Admin: 04/09/19 22:14 Dose: 15 mg Pantoprazole Sodium (Protonix Iv) 40 mg IVPUSH BID [facility] Last Admin: 04/10/19 09:17 Dose: 40 mg Potassium Chloride (K-Dur -) 20 meq PO DAILY [facility] Last Admin: 04/10/19 09:17 Dose: 20 meq Sertraline HCl (Zoloft -) 50 mg PO AM [facility] Last Admin: 04/10/19 06:31 Dose: 50 mg Silver Sulfadiazine (Silvadene -) 1 applic TP BID [facility] Last Admin: 04/10/19 09:19 Dose: 1 applic Zinc Oxide/Panthenol/Vitamin E (Balmex Cream -) 1 applic TP BID [facility] Last Admin: 04/10/19 09:19 Dose: 1 applic Zolpidem Tartrate (Ambien -) 5 mg PO HS [facility] Stop: 04/15/19 22:01 Last Admin: 04/09/19 22:14 Dose: 5 mg - Objective Vital Signs: Vital Signs Temperature 98.4 F 04/10/19 09:03 Pulse Rate 103 H 04/10/19 09:03 Respiratory Rate 18 04/10/19 09:03 Blood Pressure 137/87 04/10/19 09:03 O2 Sat by Pulse Oximetry (%) 95 04/10/19 09:00 Constitutional: Yes: No Distress, Calm Respiratory: Yes: Cough (dry), On Nasal O2, SOB, SOB on Exertion Gastrointestinal: Yes: Normal Bowel Sounds, Soft Musculoskeletal: Yes: WNL Extremities: Yes: WNL Neurological: Yes: Alert, Oriented Psychiatric: Yes: Alert, Oriented Labs: CBC, BMP 04/10/19 06:00 04/10/19 06:00 INR, PTT INR 1.03 (0.83-1.09) 04/06/19 19:45 Assessment/Plan Problem List - Problems (1) Pulmonary hypertension Code(s): I27.20 - PULMONARY HYPERTENSION, UNSPECIFIED (2) GERD (gastroesophageal reflux disease) Code(s): K21.9 - GASTRO-ESOPHAGEAL REFLUX DISEASE WITHOUT ESOPHAGITIS (3) Acute diastolic (congestive) heart failure Code(s): I50.31 - ACUTE DIASTOLIC (CONGESTIVE) HEART FAILURE (4) Acute exacerbation of chronic obstructive pulmonary disease Code(s): J44.1 - CHRONIC OBSTRUCTIVE PULMONARY DISEASE W (ACUTE) EXACERBATION (5) Acute hypoxemic respiratory failure Code(s): J96.01 - ACUTE RESPIRATORY FAILURE WITH HYPOXIA (6) Bipolar 1 disorder Code(s): F31.9 - BIPOLAR DISORDER, UNSPECIFIED (7) Bronchiectasis Code(s): J47.9 - BRONCHIECTASIS, UNCOMPLICATED (8) CHF (congestive heart failure), NYHA class II Code(s): I50.9 - HEART FAILURE, UNSPECIFIED (9) Chronic kidney disease (CKD) Code(s): N18.9 - CHRONIC KIDNEY DISEASE, UNSPECIFIED (10) Elevated troponin Code(s): R74.8 - ABNORMAL LEVELS OF OTHER SERUM ENZYMES (11) Emphysema of lung Code(s): J43.9 - EMPHYSEMA, UNSPECIFIED (12) Hypotension Code(s): I95.9 - HYPOTENSION, UNSPECIFIED (13) HTN (hypertension) Code(s): I10 - ESSENTIAL (PRIMARY) HYPERTENSION (14) Insomnia disorder Code(s): G47.00 - INSOMNIA, UNSPECIFIED plan continue current mgmt resp support rest as per the team
--- NOTE | 2019-04-10 12:58 | PN ---
Progress Note (short form) - Note Progress Note: PULMONARY States breathing a little better. +cough and wheezing but less. Vital Signs Period Temp Pulse Resp BP Sys/[place] Pulse Ox Last 24 Hr 98.2 F-98.7 F 91-103 18-20 115-144/73-87 95-96 Gen: NAD at rest Heart: RRR Lung: bilateral rhonchi Abd: soft, nontender Ext: no edema CBC, BMP 04/10/19 06:00 04/10/19 06:00 Active Medications Acetaminophen (Tylenol -) 650 mg PO Q4H PRN PRN Reason: PAIN LEVEL 1-5 Last Admin: 04/07/19 14:31 Dose: 650 mg Albuterol Sulfate (Ventolin 0.083% Nebulizer Soln -) 1 amp NEB Q4H PRN PRN Reason: SHORT OF BREATH/WHEEZING Albuterol/Ipratropium (Duoneb -) 1 amp NEB RQID [facility] Last Admin: 04/10/19 11:35 Dose: 1 amp Ascorbic Acid (Vitamin C -) 500 mg PO BID [facility] Last Admin: 04/10/19 09:17 Dose: 500 mg Budesonide/Formoterol Fumarate (Symbicort 160/4.5mcg -) 2 puff IH BID [facility] Last Admin: 04/10/19 09:19 Dose: 2 puff Carbidopa/Levodopa (Sinemet 25/100 -) 1 each PO TID@0900,1200,1700 [facility] Last Admin: 04/10/19 11:29 Dose: 1 each Enoxaparin Sodium (Lovenox -) 40 mg SQ DAILY [facility] Last Admin: 04/10/19 09:17 Dose: 40 mg Sodium Chloride (1/2 Normal Saline) 1,000 mls @ 70 mls/hr IV ASDIR [facility] Last Admin: 04/08/19 15:01 Dose: 70 mls/hr Piperacillin Sod/Tazobactam (Sod 2.25 gm/ Dextrose) 50 mls @ 100 mls/hr IVPB Q8H-IV [facility]; Protocol Last Admin: 04/10/19 09:17 Dose: 100 mls/hr Methylprednisolone Sodium Succinate (Solu-Medrol -) 40 mg IVPUSH Q8H-IV [facility] Last Admin: 04/10/19 09:21 Dose: 40 mg Mirtazapine (Remeron -) 15 mg PO HS [facility] Last Admin: 04/09/19 22:14 Dose: 15 mg Pantoprazole Sodium (Protonix Iv) 40 mg IVPUSH BID [facility] Last Admin: 04/10/19 09:17 Dose: 40 mg Potassium Chloride (K-Dur -) 20 meq PO DAILY [facility] Last Admin: 04/10/19 09:17 Dose: 20 meq Sertraline HCl (Zoloft -) 50 mg PO AM [facility] Last Admin: 04/10/19 06:31 Dose: 50 mg Silver Sulfadiazine (Silvadene -) 1 applic TP BID [facility] Last Admin: 04/10/19 09:19 Dose: 1 applic Zinc Oxide/Panthenol/Vitamin E (Balmex Cream -) 1 applic TP BID [facility] Last Admin: 04/10/19 09:19 Dose: 1 applic Zolpidem Tartrate (Ambien -) 5 mg PO HS [facility] Stop: 04/15/19 22:01 Last Admin: 04/09/19 22:14 Dose: 5 mg A/P Acute COPD Exacerbation Chronic Hypoxic Respiratory Failure Severe Pulmonary HTN CAD HTN - continue medrol at current dose - inhaled bronchodilators standing and PRN - symbicort - O2 to keep SpO2 >90% - DVT prophylaxis Problem List - Problems (1) COPD exacerbation Code(s): J44.1 - CHRONIC OBSTRUCTIVE PULMONARY DISEASE W (ACUTE) EXACERBATION
[2019-04-10] MEDS: ZOLPIDEM TARTRATE 5 MG TABLET PO SCH (21:09)
[2019-04-10] MEDS: MIRTAZAPINE 15 MG TABLET (FP) PO SCH (21:09)
[2019-04-11] MEDS ORDERED: PIPERACILLIN/TAZOBACTAM 2.25 GM VIAL IVPB ONE ×2 (00:59→09:40)
[2019-04-11] MEDS ORDERED: DEXTROSE 5%-WATER - 50 ML IVPB ONE ×2 (00:59→09:40)
[2019-04-11] MEDS: PIPERACILLIN/TAZOB 2.25 GM 2.25 GM in DEXTROSE 5%-WATER - 50 ML IVPB SCH ×2 (01:28→10:17)
[2019-04-11] MEDS: methylPREDNISolone NA SUCC 40 MG/1 ML VIAL IVPUSH SCH ×3 (01:28→17:22)
[2019-04-11 06:54] LABS: BASO % 0.3 % (0-2.0); HEMATOCRIT 43.5 % (35.4-49); HEMOGLOBIN 14.6 GM/dL (11.7-16.9); LYMPH % 2.6 % (8-40); MCH 32.1 pg (25.7-33.7); MCHC 33.6 g/dl (32.0-35.9); MEAN CELL VOLUME 95.4 fl (80-96); MEAN PLT VOLUME 8.3 fl (7.5-11.1); NEUT % 93.1 % (42.8-82.8); PLATELET COUNT 230 K/MM3 (134-434); RBC 4.56 M/mm3 (4.00-5.60); RDW 16.5 % (11.9-15.9); WHITE BLOOD COUNT 20.7 K/mm3 (4.0-10.0)
[2019-04-11] MEDS: SERTRALINE HCL 50 MG TABLET (FP) PO SCH (06:59)
[2019-04-11 07:22] LABS: BLOOD UREA NITROGEN 62.7 mg/dL (7-18); CALCIUM 9.1 mg/dL (8.5-10.1); CREATININE 1.5 mg/dL (0.55-1.3); POTASSIUM 4.2 mmol/L (3.5-5.1)
[2019-04-11] MEDS: ALBUTEROL SO4 2.5/IPRATROPIUM 0.5 INH SOL 3 ML VIAL.NEB. NEB SCH ×4 (07:57→20:00)
--- NOTE | 2019-04-11 08:47 | PN ---
Progress Note, Physician Chief Complaint: sob History of Present Illness: still sob, doesn't think he's improved much. cough with occasional phlegm (hoang-yellow) no wheezing no cp no palpit, syncope - Current Medication List Current Medications: Active Medications Acetaminophen (Tylenol -) 650 mg PO Q4H PRN PRN Reason: PAIN LEVEL 1-5 Last Admin: 04/07/19 14:31 Dose: 650 mg Albuterol Sulfate (Ventolin 0.083% Nebulizer Soln -) 1 amp NEB Q4H PRN PRN Reason: SHORT OF BREATH/WHEEZING Albuterol/Ipratropium (Duoneb -) 1 amp NEB RQID [facility] Last Admin: 04/11/19 07:57 Dose: 1 amp Ascorbic Acid (Vitamin C -) 500 mg PO BID [facility] Last Admin: 04/10/19 21:09 Dose: 500 mg Budesonide/Formoterol Fumarate (Symbicort 160/4.5mcg -) 2 puff IH BID [facility] Last Admin: 04/10/19 21:09 Dose: 2 puff Carbidopa/Levodopa (Sinemet 25/100 -) 1 each PO TID@0900,1200,1700 [facility] Last Admin: 04/10/19 18:44 Dose: 1 each Enoxaparin Sodium (Lovenox -) 40 mg SQ DAILY [facility] Last Admin: 04/10/19 09:17 Dose: 40 mg Sodium Chloride (1/2 Normal Saline) 1,000 mls @ 70 mls/hr IV ASDIR [facility] Last Admin: 04/08/19 15:01 Dose: 70 mls/hr Piperacillin Sod/Tazobactam (Sod 2.25 gm/ Dextrose) 50 mls @ 100 mls/hr IVPB Q8H-IV [facility]; Protocol Last Admin: 04/11/19 01:28 Dose: 100 mls/hr Methylprednisolone Sodium Succinate (Solu-Medrol -) 40 mg IVPUSH Q8H-IV [facility] Last Admin: 04/11/19 01:28 Dose: 40 mg Metoprolol Succinate (Toprol Xl -) 25 mg PO DAILY [facility] Mirtazapine (Remeron -) 15 mg PO HS [facility] Last Admin: 04/10/19 21:09 Dose: 15 mg Pantoprazole Sodium (Protonix Iv) 40 mg IVPUSH BID [facility] Last Admin: 04/10/19 21:09 Dose: 40 mg Potassium Chloride (K-Dur -) 20 meq PO DAILY [facility] Last Admin: 04/10/19 09:17 Dose: 20 meq Sertraline HCl (Zoloft -) 50 mg PO AM [facility] Last Admin: 04/11/19 06:59 Dose: 50 mg Silver Sulfadiazine (Silvadene -) 1 applic TP BID [facility] Last Admin: 04/10/19 21:09 Dose: 1 applic Zinc Oxide/Panthenol/Vitamin E (Balmex Cream -) 1 applic TP BID [facility] Last Admin: 04/10/19 21:10 Dose: 1 applic Zolpidem Tartrate (Ambien -) 5 mg PO HS [facility] Stop: 04/15/19 22:01 Last Admin: 04/10/19 21:09 Dose: 5 mg - Objective Vital Signs: Vital Signs Temperature 98.0 F 04/11/19 06:00 Pulse Rate 102 H 04/11/19 06:00 Respiratory Rate 18 04/11/19 06:00 Blood Pressure 130/73 04/11/19 06:00 O2 Sat by Pulse Oximetry (%) 98 04/10/19 21:00 Constitutional: Yes: Well Nourished, No Distress, Calm Cardiovascular: Yes: Regular Rate and Rhythm, S1, S2. No: JVD, Gallop, Murmur Respiratory: Yes: Regular, Rhonchi. No: Accessory Muscle Use, Rales, Wheezes Extremities: No: Cold Edema: No Neurological: Yes: Alert, Oriented Psychiatric: No: Agitated Labs: CBC, BMP 04/11/19 06:30 04/11/19 06:30 INR, PTT INR 1.03 (0.83-1.09) 04/06/19 19:45 Assessment/Plan echo 02/2019 tds, nl LV function, RV not well visualized, severe pujlm HTN >60 mmHg RVSP stress echo 04/07: apical ischemia tele: SR with sinus tach, brief run PAT a.e. COPD, acute HFpEF: - episode acute sob, R side cp 04/09 AM--resolved with iv lasix/SL nitro, CXR no congestion - lasix held since, remains clinically euvolemic with ongoing phlegmy cough and rhonchi suggesting ongoing sob sec to copd - troponins remained flat yest-->today - steroids and BDs as doing (pulm recs) elevated trop: - borderline trop, flat trend, not c/w acs - EKG no ischemic changes history of stress induced CM: with mild acute on chronic diastolic CHF exacerbation in setting of increased IVF - nl EF on echo 02/2019 - cont lisinopril, bystolic DORIS on CKD: - baseline creat 1.4-1.9 - close to baseline at present, stable PSVT/PAT: - brief runs on tele - cont bb - monitor tele CAD: - +apical ischemia 03/2018 managed medically - cont aspirin, statin, bystolic HTN: - stable, cont current meds pulm HTN: - likely in setting of severe COPD
[2019-04-11 08:53] LABS: ANISOCYTOSIS 3+; MACROCYTOSIS 0; OVALOCYTE 0; PLATELET ESTIMATE NORMAL
[2019-04-11] MEDS: PANTOPRAZOLE SODIUM 40 MG VIAL IVPUSH SCH ×2 (10:16→21:06)
[2019-04-11] MEDS: ENOXAPARIN NA (PORCINE) 40 MG/0.4 ML DISP.SYRIN SQ SCH (10:18)
[2019-04-11] MEDS: ASCORBIC ACID 500 MG TABLET (FP) PO SCH ×2 (10:20→21:06)
[2019-04-11] MEDS: POTASSIUM CHLORIDE TABS 10 MEQ TABLET.ER (FP) PO SCH (10:20)
[2019-04-11] MEDS: metoPROLOL SUCCINATE 25 MG TAB.SR.24H (FP) PO SCH (10:20)
[2019-04-11] MEDS: ZINC OXIDE/PANTHENOL/VITAMIN E 56 GM TUBE TP SCH ×2 (10:20→21:06)
[2019-04-11] MEDS: SILVER SULFADIAZINE 1% TOP CREAM 50 GM JAR TP SCH ×2 (10:21→21:06)
[2019-04-11] MEDS: BUDESONIDE/FORMETEROL FUMARATE 160/4.5 mcg INHALER IH SCH ×2 (10:21→21:06)
[2019-04-11] MEDS: CARBIDOPA/LEVODOPA 25/100 TABLET (FP) PO SCH ×3 (10:24→17:23)
--- NOTE | 2019-04-11 11:55 | PN ---
Progress Note (short form) - Note Progress Note: PULMONARY States breathing a little better. Wants to go home. Vital Signs Period Temp Pulse Resp BP Sys/[place] Pulse Ox Last 24 Hr 98.0 F-98.4 F 97-116 18-20 125-161/73-98 98 Gen: NAD at rest Heart: RRR Lung: bilateral rhonchi Abd: soft, nontender Ext: no edema CBC, BMP 04/11/19 06:30 04/11/19 06:30 Active Medications Acetaminophen (Tylenol -) 650 mg PO Q4H PRN PRN Reason: PAIN LEVEL 1-5 Last Admin: 04/07/19 14:31 Dose: 650 mg Albuterol Sulfate (Ventolin 0.083% Nebulizer Soln -) 1 amp NEB Q4H PRN PRN Reason: SHORT OF BREATH/WHEEZING Albuterol/Ipratropium (Duoneb -) 1 amp NEB RQID [facility] Last Admin: 04/11/19 07:57 Dose: 1 amp Ascorbic Acid (Vitamin C -) 500 mg PO BID [facility] Last Admin: 04/11/19 10:20 Dose: 500 mg Budesonide/Formoterol Fumarate (Symbicort 160/4.5mcg -) 2 puff IH BID [facility] Last Admin: 04/11/19 10:21 Dose: 2 puff Carbidopa/Levodopa (Sinemet 25/100 -) 1 each PO TID@0900,1200,1700 [facility] Last Admin: 04/11/19 10:24 Dose: 1 each Enoxaparin Sodium (Lovenox -) 40 mg SQ DAILY [facility] Last Admin: 04/11/19 10:18 Dose: 40 mg Sodium Chloride (1/2 Normal Saline) 1,000 mls @ 70 mls/hr IV ASDIR [facility] Last Admin: 04/08/19 15:01 Dose: 70 mls/hr Piperacillin Sod/Tazobactam (Sod 2.25 gm/ Dextrose) 50 mls @ 100 mls/hr IVPB Q8H-IV [facility]; Protocol Last Admin: 04/11/19 10:17 Dose: 100 mls/hr Methylprednisolone Sodium Succinate (Solu-Medrol -) 40 mg IVPUSH Q8H-IV [facility] Last Admin: 04/11/19 10:18 Dose: 40 mg Metoprolol Succinate (Toprol Xl -) 25 mg PO DAILY [facility] Last Admin: 04/11/19 10:20 Dose: 25 mg Mirtazapine (Remeron -) 15 mg PO HS [facility] Last Admin: 04/10/19 21:09 Dose: 15 mg Pantoprazole Sodium (Protonix Iv) 40 mg IVPUSH BID [facility] Last Admin: 04/11/19 10:16 Dose: 40 mg Potassium Chloride (K-Dur -) 20 meq PO DAILY [facility] Last Admin: 04/11/19 10:20 Dose: 20 meq Sertraline HCl (Zoloft -) 50 mg PO AM [facility] Last Admin: 04/11/19 06:59 Dose: 50 mg Silver Sulfadiazine (Silvadene -) 1 applic TP BID [facility] Last Admin: 04/11/19 10:21 Dose: 1 applic Zinc Oxide/Panthenol/Vitamin E (Balmex Cream -) 1 applic TP BID [facility] Last Admin: 04/11/19 10:20 Dose: 1 applic Zolpidem Tartrate (Ambien -) 5 mg PO HS [facility] Stop: 04/15/19 22:01 Last Admin: 04/10/19 21:09 Dose: 5 mg A/P Acute COPD Exacerbation Chronic Hypoxic Respiratory Failure Severe Pulmonary HTN CAD HTN - continue medrol at current dose - can change to prednisone 40mg BID in AM if continues to improve - inhaled bronchodilators standing and PRN - symbicort - O2 to keep SpO2 >90% - DVT prophylaxis - can discharge in AM if stable Problem List - Problems (1) COPD exacerbation Code(s): J44.1 - CHRONIC OBSTRUCTIVE PULMONARY DISEASE W (ACUTE) EXACERBATION
[2019-04-11] MEDS ORDERED: VANCOMYCIN 1 GRAM (PRE-DOCKED) 1,000 MG/250 ML BAG IVPB ONE (12:01)
[2019-04-11] MEDS: MEROPENEM 1 GM in DEXTROSE 5%-WATER 100 ML IVPB SCH ×2 (13:01→21:06)
[2019-04-11] MEDS ORDERED: MEROPENEM 1 GM VIAL (RESTRICTED TO ID) IVPB ONE ×2 (14:56→20:50)
[2019-04-11] MEDS ORDERED: DEXTROSE 5%-WATER 100 ML IVPB ONE ×2 (14:57→20:50)
--- NOTE | 2019-04-11 15:56 | PN ---
Progress Note, Physician History of Present Illness: Pt states he is still SOB and has a productive cough. Remains afebrile but wbc increased to 20K today. - Current Medication List Current Medications: Active Medications Acetaminophen (Tylenol -) 650 mg PO Q4H PRN PRN Reason: PAIN LEVEL 1-5 Last Admin: 04/07/19 14:31 Dose: 650 mg Albuterol Sulfate (Ventolin 0.083% Nebulizer Soln -) 1 amp NEB Q4H PRN PRN Reason: SHORT OF BREATH/WHEEZING Albuterol/Ipratropium (Duoneb -) 1 amp NEB RQID [facility] Last Admin: 04/11/19 11:40 Dose: 1 amp Ascorbic Acid (Vitamin C -) 500 mg PO BID [facility] Last Admin: 04/11/19 10:20 Dose: 500 mg Budesonide/Formoterol Fumarate (Symbicort 160/4.5mcg -) 2 puff IH BID [facility] Last Admin: 04/11/19 10:21 Dose: 2 puff Carbidopa/Levodopa (Sinemet 25/100 -) 1 each PO TID@0900,1200,1700 [facility] Last Admin: 04/11/19 13:01 Dose: 1 each Enoxaparin Sodium (Lovenox -) 40 mg SQ DAILY [facility] Last Admin: 04/11/19 10:18 Dose: 40 mg Sodium Chloride (1/2 Normal Saline) 1,000 mls @ 70 mls/hr IV ASDIR [facility] Last Admin: 04/08/19 15:01 Dose: 70 mls/hr Meropenem 1 gm/ Dextrose 100 mls @ 200 mls/hr IVPB BID [facility] Last Admin: 04/11/19 13:01 Dose: 200 mls/hr Methylprednisolone Sodium Succinate (Solu-Medrol -) 40 mg IVPUSH Q8H-IV [facility] Last Admin: 04/11/19 10:18 Dose: 40 mg Metoprolol Succinate (Toprol Xl -) 25 mg PO DAILY [facility] Last Admin: 04/11/19 10:20 Dose: 25 mg Mirtazapine (Remeron -) 15 mg PO HS [facility] Last Admin: 04/10/19 21:09 Dose: 15 mg Pantoprazole Sodium (Protonix Iv) 40 mg IVPUSH BID [facility] Last Admin: 04/11/19 10:16 Dose: 40 mg Potassium Chloride (K-Dur -) 20 meq PO DAILY [facility] Last Admin: 04/11/19 10:20 Dose: 20 meq Sertraline HCl (Zoloft -) 50 mg PO AM [facility] Last Admin: 04/11/19 06:59 Dose: 50 mg Silver Sulfadiazine (Silvadene -) 1 applic TP BID [facility] Last Admin: 04/11/19 10:21 Dose: 1 applic Zinc Oxide/Panthenol/Vitamin E (Balmex Cream -) 1 applic TP BID [facility] Last Admin: 04/11/19 10:20 Dose: 1 applic Zolpidem Tartrate (Ambien -) 5 mg PO HS [facility] Stop: 04/15/19 22:01 Last Admin: 04/10/19 21:09 Dose: 5 mg - Objective Vital Signs: Vital Signs Temperature 98.3 F 04/11/19 13:45 Pulse Rate 108 H 04/11/19 13:45 Respiratory Rate 18 04/11/19 13:45 Blood Pressure 150/90 04/11/19 13:45 O2 Sat by Pulse Oximetry (%) 98 04/10/19 21:00 Constitutional: Yes: No Distress, Calm, Other (+cough) Eyes: Yes: Conjunctiva Clear Neck: Yes: Supple Cardiovascular: Yes: Tachycardia Respiratory: Yes: Rhonchi Gastrointestinal: Yes: Normal Bowel Sounds, Soft Genitourinary: Yes: WNL Extremities: Yes: WNL Integumentary: Yes: WNL Neurological: Yes: Alert Labs: CBC, BMP 04/11/19 06:30 04/11/19 06:30 INR, PTT INR 1.03 (0.83-1.09) 04/06/19 19:45 Microbiology 04/10/19 11:30 Sputum - Expectorated Gram Stain - Final 04/10/19 11:30 Sputum - Expectorated Sputum Culture - Preliminary Problem List - Problems (1) Pulmonary hypertension Code(s): I27.20 - PULMONARY HYPERTENSION, UNSPECIFIED (2) Acute exacerbation of chronic obstructive pulmonary disease Code(s): J44.1 - CHRONIC OBSTRUCTIVE PULMONARY DISEASE W (ACUTE) EXACERBATION (3) Acute hypoxemic respiratory failure Code(s): J96.01 - ACUTE RESPIRATORY FAILURE WITH HYPOXIA (4) Bipolar 1 disorder Code(s): F31.9 - BIPOLAR DISORDER, UNSPECIFIED (5) Bronchiectasis Code(s): J47.9 - BRONCHIECTASIS, UNCOMPLICATED (6) CHF (congestive heart failure) Code(s): I50.9 - HEART FAILURE, UNSPECIFIED (7) Emphysema of lung Code(s): J43.9 - EMPHYSEMA, UNSPECIFIED (8) HTN (hypertension) Code(s): I10 - ESSENTIAL (PRIMARY) HYPERTENSION (9) Renal failure Code(s): N19 - UNSPECIFIED KIDNEY FAILURE (10) SOB (shortness of breath) Code(s): R06.02 - SHORTNESS OF BREATH Assessment/Plan -- Worsening Leukocytosis. Pt states he is SOB and noted to have a productive cough -- D/W Dr. Chen, will broaden antibiotic coverage and await results of sputum cultures -- Meropenem, ordered Vancomycin IV x 1 dose -- repeat cbc in am continue monitor vitals
[2019-04-11] MEDS: MIRTAZAPINE 15 MG TABLET (FP) PO SCH (21:06)
[2019-04-11] MEDS: ZOLPIDEM TARTRATE 5 MG TABLET PO SCH (21:06)
--- NOTE | 2019-04-11 21:07 | PN ---
Progress Note, Physician Chief Complaint: Pt is having raised WBC from 14 to 20 Pt is still having cough and SOB Seen Pulmonary note Pt should stilll be on IV steroids Not a candiate to go home at this point This is his Send visit in one month more Moribund and depressed now Pt had H/O MDD which was needing ECT. - Current Medication List Current Medications: Active Medications Acetaminophen (Tylenol -) 650 mg PO Q4H PRN PRN Reason: PAIN LEVEL 1-5 Last Admin: 04/07/19 14:31 Dose: 650 mg Albuterol Sulfate (Ventolin 0.083% Nebulizer Soln -) 1 amp NEB Q4H PRN PRN Reason: SHORT OF BREATH/WHEEZING Albuterol/Ipratropium (Duoneb -) 1 amp NEB RQID [facility] Last Admin: 04/11/19 20:00 Dose: 1 amp Ascorbic Acid (Vitamin C -) 500 mg PO BID [facility] Last Admin: 04/11/19 10:20 Dose: 500 mg Budesonide/Formoterol Fumarate (Symbicort 160/4.5mcg -) 2 puff IH BID [facility] Last Admin: 04/11/19 10:21 Dose: 2 puff Carbidopa/Levodopa (Sinemet 25/100 -) 1 each PO TID@0900,1200,1700 [facility] Last Admin: 04/11/19 17:23 Dose: 1 each Enoxaparin Sodium (Lovenox -) 40 mg SQ DAILY [facility] Last Admin: 04/11/19 10:18 Dose: 40 mg Sodium Chloride (1/2 Normal Saline) 1,000 mls @ 70 mls/hr IV ASDIR [facility] Last Admin: 04/08/19 15:01 Dose: 70 mls/hr Meropenem 1 gm/ Dextrose 100 mls @ 200 mls/hr IVPB BID [facility] Last Admin: 04/11/19 13:01 Dose: 200 mls/hr Methylprednisolone Sodium Succinate (Solu-Medrol -) 40 mg IVPUSH Q8H-IV [facility] Last Admin: 04/11/19 17:22 Dose: 40 mg Metoprolol Succinate (Toprol Xl -) 25 mg PO DAILY [facility] Last Admin: 04/11/19 10:20 Dose: 25 mg Mirtazapine (Remeron -) 15 mg PO HS [facility] Last Admin: 04/10/19 21:09 Dose: 15 mg Pantoprazole Sodium (Protonix Iv) 40 mg IVPUSH BID [facility] Last Admin: 04/11/19 10:16 Dose: 40 mg Potassium Chloride (K-Dur -) 20 meq PO DAILY [facility] Last Admin: 04/11/19 10:20 Dose: 20 meq Sertraline HCl (Zoloft -) 50 mg PO AM [facility] Last Admin: 04/11/19 06:59 Dose: 50 mg Silver Sulfadiazine (Silvadene -) 1 applic TP BID [facility] Last Admin: 04/11/19 10:21 Dose: 1 applic Zinc Oxide/Panthenol/Vitamin E (Balmex Cream -) 1 applic TP BID [facility] Last Admin: 04/11/19 10:20 Dose: 1 applic Zolpidem Tartrate (Ambien -) 5 mg PO HS [facility] Stop: 04/15/19 22:01 Last Admin: 04/10/19 21:09 Dose: 5 mg - Objective Vital Signs: Vital Signs Temperature 98.0 F 04/11/19 17:00 Pulse Rate 102 H 04/11/19 17:00 Respiratory Rate 04/11/19 19:57 Blood Pressure 132/84 04/11/19 17:00 O2 Sat by Pulse Oximetry (%) 94 L 04/11/19 19:57 Constitutional: Yes: No Distress, Anxious Eyes: Yes: Conjunctiva Clear, EOM Intact HENT: Yes: Atraumatic, Normocephalic Neck: Yes: Supple, Trachea Midline Cardiovascular: Yes: Regular Rate and Rhythm, S1, S2 Respiratory: Yes: Regular, CTA Bilaterally Gastrointestinal: Yes: Normal Bowel Sounds, Soft Musculoskeletal: Yes: Joint Stiffness Labs: CBC, BMP 04/11/19 06:30 04/11/19 06:30 INR, PTT INR 1.03 (0.83-1.09) 04/06/19 19:45 Problem List - Problems (1) Pulmonary hypertension Code(s): I27.20 - PULMONARY HYPERTENSION, UNSPECIFIED (2) GERD (gastroesophageal reflux disease) Code(s): K21.9 - GASTRO-ESOPHAGEAL REFLUX DISEASE WITHOUT ESOPHAGITIS (3) Acute diastolic (congestive) heart failure Code(s): I50.31 - ACUTE DIASTOLIC (CONGESTIVE) HEART FAILURE (4) Acute exacerbation of chronic obstructive pulmonary disease Code(s): J44.1 - CHRONIC OBSTRUCTIVE PULMONARY DISEASE W (ACUTE) EXACERBATION (5) Acute hypoxemic respiratory failure Code(s): J96.01 - ACUTE RESPIRATORY FAILURE WITH HYPOXIA (6) Bipolar 1 disorder Code(s): F31.9 - BIPOLAR DISORDER, UNSPECIFIED (7) Bronchiectasis Code(s): J47.9 - BRONCHIECTASIS, UNCOMPLICATED (8) CHF (congestive heart failure), NYHA class II Code(s): I50.9 - HEART FAILURE, UNSPECIFIED (9) Chronic kidney disease (CKD) Code(s): N18.9 - CHRONIC KIDNEY DISEASE, UNSPECIFIED (10) Elevated troponin Code(s): R74.8 - ABNORMAL LEVELS OF OTHER SERUM ENZYMES (11) Emphysema of lung Code(s): J43.9 - EMPHYSEMA, UNSPECIFIED (12) Hypotension Code(s): I95.9 - HYPOTENSION, UNSPECIFIED (13) HTN (hypertension) Code(s): I10 - ESSENTIAL (PRIMARY) HYPERTENSION (14) Insomnia disorder Code(s): G47.00 - INSOMNIA, UNSPECIFIED Assessment/Plan (1) Pulmonary hypertension Code(s): I27.20 - PULMONARY HYPERTENSION, UNSPECIFIED (2) GERD (gastroesophageal reflux disease) Code(s): K21.9 - GASTRO-ESOPHAGEAL REFLUX DISEASE WITHOUT ESOPHAGITIS (3) Acute diastolic (congestive) heart failure Code(s): I50.31 - ACUTE DIASTOLIC (CONGESTIVE) HEART FAILURE (4) Acute exacerbation of chronic obstructive pulmonary disease Code(s): J44.1 - CHRONIC OBSTRUCTIVE PULMONARY DISEASE W (ACUTE) EXACERBATION (5) Acute hypoxemic respiratory failure Code(s): J96.01 - ACUTE RESPIRATORY FAILURE WITH HYPOXIA (6) Bipolar 1 disorder Code(s): F31.9 - BIPOLAR DISORDER, UNSPECIFIED (7) Bronchiectasis Code(s): J47.9 - BRONCHIECTASIS, UNCOMPLICATED (8) CHF (congestive heart failure), NYHA class II Code(s): I50.9 - HEART FAILURE, UNSPECIFIED (9) Chronic kidney disease (CKD) Code(s): N18.9 - CHRONIC KIDNEY DISEASE, UNSPECIFIED (10) Elevated troponin Code(s): R74.8 - ABNORMAL LEVELS OF OTHER SERUM ENZYMES (11) Emphysema of lung Code(s): J43.9 - EMPHYSEMA, UNSPECIFIED (12) Hypotension Code(s): I95.9 - HYPOTENSION, UNSPECIFIED (13) HTN (hypertension) Code(s): I10 - ESSENTIAL (PRIMARY) HYPERTENSION (14) Insomnia disorder Code(s): G47.00 - INSOMNIA, UNSPECIFIED BP better Resume his Metoprolol 25 Po daily as Hr is high Confused on and off Today WBC went up it is not from Steroids Pt is not responding from Current Antibiotics Discussed with ID today
[2019-04-12] MEDS: methylPREDNISolone NA SUCC 40 MG/1 ML VIAL IVPUSH SCH ×3 (01:58→21:44)
[2019-04-12] MEDS: SERTRALINE HCL 50 MG TABLET (FP) PO SCH (06:07)
[2019-04-12 06:23] LABS: BASO % 0.5 % (0-2.0); HEMATOCRIT 43.7 % (35.4-49); HEMOGLOBIN 14.7 GM/dL (11.7-16.9); LYMPH % 2.2 % (8-40); MCH 31.9 pg (25.7-33.7); MCHC 33.7 g/dl (32.0-35.9); MEAN CELL VOLUME 94.5 fl (80-96); MEAN PLT VOLUME 8.7 fl (7.5-11.1); MONO % 2.7 % (3.8-10.2); NEUT % 94.6 % (42.8-82.8); PLATELET COUNT 203 K/MM3 (134-434); RBC 4.62 M/mm3 (4.00-5.60); RDW 16.6 % (11.9-15.9); WHITE BLOOD COUNT 17.1 K/mm3 (4.0-10.0)
[2019-04-12 06:51] LABS: BLOOD UREA NITROGEN 48.8 mg/dL (7-18); CALCIUM 8.8 mg/dL (8.5-10.1); CREATININE 1.1 mg/dL (0.55-1.3); POTASSIUM 4.4 mmol/L (3.5-5.1)
[2019-04-12] MEDS: ALBUTEROL SO4 2.5/IPRATROPIUM 0.5 INH SOL 3 ML VIAL.NEB. NEB SCH ×4 (07:25→20:20)
--- NOTE | 2019-04-12 09:09 | PN ---
Progress Note, Physician Chief Complaint: sob History of Present Illness: breathing not much better. coughing, scant phlegm. no cp no leg swelling - Current Medication List Current Medications: Active Medications Acetaminophen (Tylenol -) 650 mg PO Q4H PRN PRN Reason: PAIN LEVEL 1-5 Last Admin: 04/07/19 14:31 Dose: 650 mg Albuterol Sulfate (Ventolin 0.083% Nebulizer Soln -) 1 amp NEB Q4H PRN PRN Reason: SHORT OF BREATH/WHEEZING Albuterol/Ipratropium (Duoneb -) 1 amp NEB RQID [facility] Last Admin: 04/12/19 07:25 Dose: 1 amp Ascorbic Acid (Vitamin C -) 500 mg PO BID [facility] Last Admin: 04/11/19 21:06 Dose: 500 mg Budesonide/Formoterol Fumarate (Symbicort 160/4.5mcg -) 2 puff IH BID [facility] Last Admin: 04/11/19 21:06 Dose: 2 puff Carbidopa/Levodopa (Sinemet 25/100 -) 1 each PO TID@0900,1200,1700 [facility] Last Admin: 04/11/19 17:23 Dose: 1 each Enoxaparin Sodium (Lovenox -) 40 mg SQ DAILY [facility] Last Admin: 04/11/19 10:18 Dose: 40 mg Sodium Chloride (1/2 Normal Saline) 1,000 mls @ 70 mls/hr IV ASDIR [facility] Last Admin: 04/08/19 15:01 Dose: 70 mls/hr Meropenem 1 gm/ Dextrose 100 mls @ 200 mls/hr IVPB BID [facility] Last Admin: 04/11/19 21:06 Dose: 200 mls/hr Methylprednisolone Sodium Succinate (Solu-Medrol -) 40 mg IVPUSH Q8H-IV [facility] Last Admin: 04/12/19 01:58 Dose: 40 mg Metoprolol Succinate (Toprol Xl -) 25 mg PO DAILY [facility] Last Admin: 04/11/19 10:20 Dose: 25 mg Mirtazapine (Remeron -) 15 mg PO HS [facility] Last Admin: 04/11/19 21:06 Dose: 15 mg Pantoprazole Sodium (Protonix Iv) 40 mg IVPUSH BID [facility] Last Admin: 04/11/19 21:06 Dose: 40 mg Potassium Chloride (K-Dur -) 20 meq PO DAILY [facility] Last Admin: 04/11/19 10:20 Dose: 20 meq Sertraline HCl (Zoloft -) 50 mg PO AM [facility] Last Admin: 04/12/19 06:07 Dose: 50 mg Silver Sulfadiazine (Silvadene -) 1 applic TP BID [facility] Last Admin: 04/11/19 21:06 Dose: 1 applic Zinc Oxide/Panthenol/Vitamin E (Balmex Cream -) 1 applic TP BID [facility] Last Admin: 04/11/19 21:06 Dose: 1 applic Zolpidem Tartrate (Ambien -) 5 mg PO HS [facility] Stop: 04/15/19 22:01 Last Admin: 04/11/19 21:06 Dose: 5 mg - Objective Vital Signs: Vital Signs Temperature 97.4 F L 04/12/19 06:00 Pulse Rate 90 04/12/19 06:00 Respiratory Rate 20 04/12/19 06:00 Blood Pressure 134/79 04/12/19 06:00 O2 Sat by Pulse Oximetry (%) 94 L 04/11/19 19:57 Constitutional: Yes: Well Nourished, No Distress, Calm Cardiovascular: Yes: Regular Rate and Rhythm, S1, S2. No: JVD, Gallop, Murmur Respiratory: Yes: Regular, Rhonchi. No: Accessory Muscle Use Extremities: No: Cold Edema: No Neurological: Yes: Alert, Oriented Psychiatric: No: Agitated Labs: CBC, BMP 04/12/19 06:10 04/12/19 06:10 INR, PTT INR 1.03 (0.83-1.09) 04/06/19 19:45 Assessment/Plan echo 02/2019 tds, nl LV function, RV not well visualized, severe pujlm HTN >60 mmHg RVSP stress echo 04/07: apical ischemia tele: SR a.e. COPD, acute HFpEF: - episode acute sob, R side cp 04/09 AM--resolved with iv lasix/SL nitro, CXR no congestion - lasix held since, remains clinically euvolemic with ongoing phlegmy cough and rhonchi suggesting ongoing sob sec to copd - BNP 3K (range 700-9K)--repeat unchanged here - troponins remained flat when re-cycled after CP episode - steroids and BDs as doing (pulm recs) elevated trop: - borderline trop, flat trend, not c/w acs - EKG no ischemic changes history of stress induced CM: with mild acute on chronic diastolic CHF exacerbation in setting of increased IVF - nl EF on echo 02/2019 - cont lisinopril, bystolic DORIS on CKD: - baseline creat 1.4-1.9 - renal fxn improved here PSVT/PAT: - brief runs on tele - cont bb - monitor tele CAD: - +apical ischemia 03/2018 managed medically - no angina - cont aspirin, statin, bystolic HTN: - stable, cont current meds pulm HTN: - likely WHO 2 etiol secondary to copd-related hypoxia - supple O2 per pulm rec.s D/C TELE
[2019-04-12] MEDS: SILVER SULFADIAZINE 1% TOP CREAM 50 GM JAR TP SCH ×2 (09:11→21:46)
[2019-04-12] MEDS: BUDESONIDE/FORMETEROL FUMARATE 160/4.5 mcg INHALER IH SCH ×2 (09:11→21:46)
[2019-04-12] MEDS: POTASSIUM CHLORIDE TABS 10 MEQ TABLET.ER (FP) PO SCH (09:12)
[2019-04-12] MEDS: ZINC OXIDE/PANTHENOL/VITAMIN E 56 GM TUBE TP SCH ×2 (09:12→21:46)
[2019-04-12] MEDS: PANTOPRAZOLE SODIUM 40 MG VIAL IVPUSH SCH ×2 (09:12→21:44)
[2019-04-12] MEDS: ASCORBIC ACID 500 MG TABLET (FP) PO SCH ×2 (09:12→21:45)
[2019-04-12] MEDS: CARBIDOPA/LEVODOPA 25/100 TABLET (FP) PO SCH ×3 (09:13→17:25)
[2019-04-12] MEDS: metoPROLOL SUCCINATE 25 MG TAB.SR.24H (FP) PO SCH (09:13)
[2019-04-12] MEDS: ENOXAPARIN NA (PORCINE) 40 MG/0.4 ML DISP.SYRIN SQ SCH (09:13)
[2019-04-12 09:46] LABS: N-TERMINAL BNP 3087.8 pg/ml (5-450)
[2019-04-12] MEDS: MEROPENEM 1 GM in DEXTROSE 5%-WATER 100 ML IVPB SCH ×2 (11:13→21:44)
--- NOTE | 2019-04-12 11:29 | PN ---
Progress Note (short form) - Note Progress Note: States breathing feels about the same. No significant change in the last few days. Intake & Output 04/09/19 04/10/19 04/11/19 04/12/19 23:59 23:59 23:59 23:59 Intake Total 470 1605 2270 80 Output Total 1760 500 Balance -1290 1105 2270 80 Weight 134 lb 9.6 oz 135 lb 12.8 oz Last Vital Signs Temp Pulse Resp BP Pulse Ox 97.8 F 96 H 20 126/77 95 04/12/19 09:21 04/12/19 09:21 04/12/19 09:21 04/12/19 09:21 04/12/19 09:00 Active Medications Acetaminophen (Tylenol -) 650 mg PO Q4H PRN PRN Reason: PAIN LEVEL 1-5 Last Admin: 04/07/19 14:31 Dose: 650 mg Albuterol Sulfate (Ventolin 0.083% Nebulizer Soln -) 1 amp NEB Q4H PRN PRN Reason: SHORT OF BREATH/WHEEZING Albuterol/Ipratropium (Duoneb -) 1 amp NEB RQID [facility] Last Admin: 04/12/19 07:25 Dose: 1 amp Ascorbic Acid (Vitamin C -) 500 mg PO BID [facility] Last Admin: 04/12/19 09:12 Dose: 500 mg Budesonide/Formoterol Fumarate (Symbicort 160/4.5mcg -) 2 puff IH BID [facility] Last Admin: 04/12/19 09:11 Dose: 2 puff Carbidopa/Levodopa (Sinemet 25/100 -) 1 each PO TID@0900,1200,1700 [facility] Last Admin: 04/12/19 11:14 Dose: 1 each Enoxaparin Sodium (Lovenox -) 40 mg SQ DAILY [facility] Last Admin: 04/12/19 09:13 Dose: 40 mg Sodium Chloride (1/2 Normal Saline) 1,000 mls @ 70 mls/hr IV ASDIR [facility] Last Admin: 04/08/19 15:01 Dose: 70 mls/hr Meropenem 1 gm/ Dextrose 100 mls @ 200 mls/hr IVPB BID [facility] Last Admin: 04/12/19 11:13 Dose: 200 mls/hr Methylprednisolone Sodium Succinate (Solu-Medrol -) 40 mg IVPUSH Q8H-IV [facility] Last Admin: 04/12/19 09:12 Dose: 40 mg Metoprolol Succinate (Toprol Xl -) 25 mg PO DAILY [facility] Last Admin: 04/12/19 09:13 Dose: 25 mg Mirtazapine (Remeron -) 15 mg PO HS [facility] Last Admin: 04/11/19 21:06 Dose: 15 mg Pantoprazole Sodium (Protonix Iv) 40 mg IVPUSH BID [facility] Last Admin: 04/12/19 09:12 Dose: 40 mg Potassium Chloride (K-Dur -) 20 meq PO DAILY [facility] Last Admin: 04/12/19 09:12 Dose: 20 meq Sertraline HCl (Zoloft -) 50 mg PO AM [facility] Last Admin: 04/12/19 06:07 Dose: 50 mg Silver Sulfadiazine (Silvadene -) 1 applic TP BID [facility] Last Admin: 04/12/19 09:11 Dose: 1 applic Zinc Oxide/Panthenol/Vitamin E (Balmex Cream -) 1 applic TP BID [facility] Last Admin: 04/12/19 09:12 Dose: 1 applic Zolpidem Tartrate (Ambien -) 5 mg PO HS [facility] Stop: 04/15/19 22:01 Last Admin: 04/11/19 21:06 Dose: 5 mg Gen: NAD at rest Heart: RRR Lung: bilateral rhonchi Abd: soft, nontender Ext: no edema Laboratory Results - last 24 hr 04/12/19 04/12/19 06:10 06:10 WBC 17.1 H RBC 4.62 Hgb 14.7 Hct 43.7 MCV 94.5 MCH 31.9 MCHC 33.7 RDW 16.6 H Plt Count 203 MPV 8.7 Absolute Neuts (auto) 16.2 H Neutrophils % 94.6 H Lymphocytes % 2.2 L Monocytes % 2.7 L Eosinophils % 0.0 Basophils % 0.5 Nucleated RBC % 0 Sodium 137 Potassium 4.4 Chloride 100 Carbon Dioxide 30 Anion Gap 6 L BUN 48.8 H Creatinine 1.1 Est GFR (CKD-EPI)AfAm 69.59 Est GFR (CKD-EPI)NonAf 60.04 Random Glucose 136 H Calcium 8.8 B-Natriuretic Peptide 3087.8 H Problem List - Problems (1) COPD exacerbation Code(s): J44.1 - CHRONIC OBSTRUCTIVE PULMONARY DISEASE W (ACUTE) EXACERBATION A/P Acute COPD Exacerbation Chronic Hypoxic Respiratory Failure Severe Pulmonary HTN CAD HTN - Taper medrol to Q12h - ABX per ID - inhaled bronchodilators standing and PRN - symbicort - O2 to keep SpO2 >90% - DVT prophylaxis Dr Martinez
[2019-04-12] MEDS ORDERED: methylPREDNISolone NA SUCC 40 MG/1 ML VIAL IVPUSH SCH (11:30)
[2019-04-12 11:32] LABS: ANISOCYTOSIS 0; MACROCYTOSIS 0; PLATELET ESTIMATE NORMAL
--- NOTE | 2019-04-12 15:24 | PN ---
Progress Note, Physician History of Present Illness: very anxious wants a psych consult - Current Medication List Current Medications: Active Medications Acetaminophen (Tylenol -) 650 mg PO Q4H PRN PRN Reason: PAIN LEVEL 1-5 Last Admin: 04/07/19 14:31 Dose: 650 mg Albuterol Sulfate (Ventolin 0.083% Nebulizer Soln -) 1 amp NEB Q4H PRN PRN Reason: SHORT OF BREATH/WHEEZING Albuterol/Ipratropium (Duoneb -) 1 amp NEB RQID [facility] Last Admin: 04/12/19 07:25 Dose: 1 amp Ascorbic Acid (Vitamin C -) 500 mg PO BID [facility] Last Admin: 04/12/19 09:12 Dose: 500 mg Budesonide/Formoterol Fumarate (Symbicort 160/4.5mcg -) 2 puff IH BID [facility] Last Admin: 04/12/19 09:11 Dose: 2 puff Carbidopa/Levodopa (Sinemet 25/100 -) 1 each PO TID@0900,1200,1700 [facility] Last Admin: 04/12/19 11:14 Dose: 1 each Enoxaparin Sodium (Lovenox -) 40 mg SQ DAILY [facility] Last Admin: 04/12/19 09:13 Dose: 40 mg Sodium Chloride (1/2 Normal Saline) 1,000 mls @ 70 mls/hr IV ASDIR [facility] Last Admin: 04/08/19 15:01 Dose: 70 mls/hr Meropenem 1 gm/ Dextrose 100 mls @ 200 mls/hr IVPB BID [facility] Last Admin: 04/12/19 11:13 Dose: 200 mls/hr Methylprednisolone Sodium Succinate (Solu-Medrol -) 40 mg IVPUSH BID [facility] Metoprolol Succinate (Toprol Xl -) 25 mg PO DAILY [facility] Last Admin: 04/12/19 09:13 Dose: 25 mg Mirtazapine (Remeron -) 15 mg PO HS [facility] Last Admin: 04/11/19 21:06 Dose: 15 mg Pantoprazole Sodium (Protonix Iv) 40 mg IVPUSH BID [facility] Last Admin: 04/12/19 09:12 Dose: 40 mg Potassium Chloride (K-Dur -) 20 meq PO DAILY [facility] Last Admin: 04/12/19 09:12 Dose: 20 meq Sertraline HCl (Zoloft -) 50 mg PO AM [facility] Last Admin: 04/12/19 06:07 Dose: 50 mg Silver Sulfadiazine (Silvadene -) 1 applic TP BID [facility] Last Admin: 04/12/19 09:11 Dose: 1 applic Zinc Oxide/Panthenol/Vitamin E (Balmex Cream -) 1 applic TP BID [facility] Last Admin: 04/12/19 09:12 Dose: 1 applic Zolpidem Tartrate (Ambien -) 5 mg PO HS [facility] Stop: 04/15/19 22:01 Last Admin: 04/11/19 21:06 Dose: 5 mg - Objective Vital Signs: Vital Signs Temperature 98.4 F 04/12/19 14:30 Pulse Rate 113 H 04/12/19 14:30 Respiratory Rate 18 04/12/19 14:30 Blood Pressure 133/76 04/12/19 14:30 O2 Sat by Pulse Oximetry (%) 95 04/12/19 09:00 Constitutional: Yes: Calm, Anxious, Mild Distress Cardiovascular: Yes: S1, S2 Respiratory: Yes: On Nasal O2, Poor Air Entry, Rhonchi Gastrointestinal: Yes: Normal Bowel Sounds, Soft Musculoskeletal: Yes: WNL Extremities: Yes: WNL Neurological: Yes: Alert, Oriented Labs: CBC, BMP 04/12/19 06:10 04/12/19 06:10 INR, PTT INR 1.03 (0.83-1.09) 04/06/19 19:45 Assessment/Plan Problem List - Problems (1) Pulmonary hypertension Code(s): I27.20 - PULMONARY HYPERTENSION, UNSPECIFIED (2) GERD (gastroesophageal reflux disease) Code(s): K21.9 - GASTRO-ESOPHAGEAL REFLUX DISEASE WITHOUT ESOPHAGITIS (3) Acute diastolic (congestive) heart failure Code(s): I50.31 - ACUTE DIASTOLIC (CONGESTIVE) HEART FAILURE (4) Acute exacerbation of chronic obstructive pulmonary disease Code(s): J44.1 - CHRONIC OBSTRUCTIVE PULMONARY DISEASE W (ACUTE) EXACERBATION (5) Acute hypoxemic respiratory failure Code(s): J96.01 - ACUTE RESPIRATORY FAILURE WITH HYPOXIA (6) Bipolar 1 disorder Code(s): F31.9 - BIPOLAR DISORDER, UNSPECIFIED (7) Bronchiectasis Code(s): J47.9 - BRONCHIECTASIS, UNCOMPLICATED (8) CHF (congestive heart failure), NYHA class II Code(s): I50.9 - HEART FAILURE, UNSPECIFIED (9) Chronic kidney disease (CKD) Code(s): N18.9 - CHRONIC KIDNEY DISEASE, UNSPECIFIED (10) Elevated troponin Code(s): R74.8 - ABNORMAL LEVELS OF OTHER SERUM ENZYMES (11) Emphysema of lung Code(s): J43.9 - EMPHYSEMA, UNSPECIFIED (12) Hypotension Code(s): I95.9 - HYPOTENSION, UNSPECIFIED (13) HTN (hypertension) Code(s): I10 - ESSENTIAL (PRIMARY) HYPERTENSION (14) Insomnia disorder Code(s): G47.00 - INSOMNIA, UNSPECIFIED plan sputum cx noted await for identificvation of the organism resp support psych to see the patient rest as per the team
[2019-04-12] MEDS ORDERED: MEROPENEM 1 GM VIAL (RESTRICTED TO ID) IVPB ONE (21:18)
[2019-04-12] MEDS ORDERED: DEXTROSE 5%-WATER 100 ML IVPB ONE (21:19)
[2019-04-12] MEDS: ZOLPIDEM TARTRATE 5 MG TABLET PO SCH (21:45)
[2019-04-12] MEDS: MIRTAZAPINE 15 MG TABLET (FP) PO SCH (21:45)
--- NOTE | 2019-04-12 22:20 | PN ---
Progress Note, Physician Chief Complaint: Pt Still weak No Fever Mild SOB No Chest pain - Current Medication List Current Medications: Active Medications Acetaminophen (Tylenol -) 650 mg PO Q4H PRN PRN Reason: PAIN LEVEL 1-5 Last Admin: 04/07/19 14:31 Dose: 650 mg Albuterol Sulfate (Ventolin 0.083% Nebulizer Soln -) 1 amp NEB Q4H PRN PRN Reason: SHORT OF BREATH/WHEEZING Albuterol/Ipratropium (Duoneb -) 1 amp NEB RQID [facility] Last Admin: 04/12/19 20:20 Dose: 1 amp Ascorbic Acid (Vitamin C -) 500 mg PO BID [facility] Last Admin: 04/12/19 21:45 Dose: 500 mg Budesonide/Formoterol Fumarate (Symbicort 160/4.5mcg -) 2 puff IH BID [facility] Last Admin: 04/12/19 21:46 Dose: 2 puff Carbidopa/Levodopa (Sinemet 25/100 -) 1 each PO TID@0900,1200,1700 [facility] Last Admin: 04/12/19 17:25 Dose: 1 each Enoxaparin Sodium (Lovenox -) 40 mg SQ DAILY [facility] Last Admin: 04/12/19 09:13 Dose: 40 mg Sodium Chloride (1/2 Normal Saline) 1,000 mls @ 70 mls/hr IV ASDIR [facility] Last Admin: 04/08/19 15:01 Dose: 70 mls/hr Meropenem 1 gm/ Dextrose 100 mls @ 200 mls/hr IVPB BID [facility] Last Admin: 04/12/19 21:44 Dose: 200 mls/hr Methylprednisolone Sodium Succinate (Solu-Medrol -) 40 mg IVPUSH BID [facility] Last Admin: 04/12/19 21:44 Dose: 40 mg Metoprolol Succinate (Toprol Xl -) 25 mg PO DAILY [facility] Last Admin: 04/12/19 09:13 Dose: 25 mg Mirtazapine (Remeron -) 15 mg PO HS [facility] Last Admin: 04/12/19 21:45 Dose: 15 mg Pantoprazole Sodium (Protonix Iv) 40 mg IVPUSH BID [facility] Last Admin: 04/12/19 21:44 Dose: 40 mg Potassium Chloride (K-Dur -) 20 meq PO DAILY [facility] Last Admin: 04/12/19 09:12 Dose: 20 meq Sertraline HCl (Zoloft -) 50 mg PO AM [facility] Last Admin: 04/12/19 06:07 Dose: 50 mg Silver Sulfadiazine (Silvadene -) 1 applic TP BID [facility] Last Admin: 04/12/19 21:46 Dose: 1 applic Zinc Oxide/Panthenol/Vitamin E (Balmex Cream -) 1 applic TP BID [facility] Last Admin: 04/12/19 21:46 Dose: 1 applic Zolpidem Tartrate (Ambien -) 5 mg PO HS [facility] Stop: 04/15/19 22:01 Last Admin: 04/12/19 21:45 Dose: 5 mg - Objective Vital Signs: Vital Signs Temperature 98.1 F 04/12/19 21:57 Pulse Rate 94 H 04/12/19 21:57 Respiratory Rate 20 04/12/19 21:57 Blood Pressure 110/73 04/12/19 21:57 O2 Sat by Pulse Oximetry (%) 95 04/12/19 09:00 Constitutional: Yes: Anxious Eyes: Yes: Conjunctiva Clear, EOM Intact HENT: Yes: Atraumatic, Normocephalic Neck: Yes: Supple, Trachea Midline Cardiovascular: Yes: Regular Rate and Rhythm, S1, S2 Respiratory: Yes: Regular, CTA Bilaterally Gastrointestinal: Yes: Normal Bowel Sounds, Soft Musculoskeletal: Yes: Joint Stiffness Edema: No Peripheral Pulses WNL: Yes Labs: CBC, BMP 04/12/19 06:10 04/12/19 06:10 INR, PTT INR 1.03 (0.83-1.09) 04/06/19 19:45 Problem List - Problems (1) Pulmonary hypertension Code(s): I27.20 - PULMONARY HYPERTENSION, UNSPECIFIED (2) GERD (gastroesophageal reflux disease) Code(s): K21.9 - GASTRO-ESOPHAGEAL REFLUX DISEASE WITHOUT ESOPHAGITIS (3) Acute diastolic (congestive) heart failure Code(s): I50.31 - ACUTE DIASTOLIC (CONGESTIVE) HEART FAILURE (4) Acute exacerbation of chronic obstructive pulmonary disease Code(s): J44.1 - CHRONIC OBSTRUCTIVE PULMONARY DISEASE W (ACUTE) EXACERBATION (5) Acute hypoxemic respiratory failure Code(s): J96.01 - ACUTE RESPIRATORY FAILURE WITH HYPOXIA (6) Bipolar 1 disorder Code(s): F31.9 - BIPOLAR DISORDER, UNSPECIFIED (7) Bronchiectasis Code(s): J47.9 - BRONCHIECTASIS, UNCOMPLICATED (8) CHF (congestive heart failure), NYHA class II Code(s): I50.9 - HEART FAILURE, UNSPECIFIED (9) Chronic kidney disease (CKD) Code(s): N18.9 - CHRONIC KIDNEY DISEASE, UNSPECIFIED (10) Elevated troponin Code(s): R74.8 - ABNORMAL LEVELS OF OTHER SERUM ENZYMES (11) Emphysema of lung Code(s): J43.9 - EMPHYSEMA, UNSPECIFIED (12) Hypotension Code(s): I95.9 - HYPOTENSION, UNSPECIFIED (13) HTN (hypertension) Code(s): I10 - ESSENTIAL (PRIMARY) HYPERTENSION (14) Insomnia disorder Code(s): G47.00 - INSOMNIA, UNSPECIFIED Assessment/Plan (1) Pulmonary hypertension Code(s): I27.20 - PULMONARY HYPERTENSION, UNSPECIFIED (2) GERD (gastroesophageal reflux disease) Code(s): K21.9 - GASTRO-ESOPHAGEAL REFLUX DISEASE WITHOUT ESOPHAGITIS (3) Acute diastolic (congestive) heart failure Code(s): I50.31 - ACUTE DIASTOLIC (CONGESTIVE) HEART FAILURE (4) Acute exacerbation of chronic obstructive pulmonary disease Code(s): J44.1 - CHRONIC OBSTRUCTIVE PULMONARY DISEASE W (ACUTE) EXACERBATION (5) Acute hypoxemic respiratory failure Code(s): J96.01 - ACUTE RESPIRATORY FAILURE WITH HYPOXIA (6) Bipolar 1 disorder Code(s): F31.9 - BIPOLAR DISORDER, UNSPECIFIED (7) Bronchiectasis Code(s): J47.9 - BRONCHIECTASIS, UNCOMPLICATED (8) CHF (congestive heart failure), NYHA class II Code(s): I50.9 - HEART FAILURE, UNSPECIFIED (9) Chronic kidney disease (CKD) Code(s): N18.9 - CHRONIC KIDNEY DISEASE, UNSPECIFIED (10) Elevated troponin Code(s): R74.8 - ABNORMAL LEVELS OF OTHER SERUM ENZYMES (11) Emphysema of lung Code(s): J43.9 - EMPHYSEMA, UNSPECIFIED (12) Hypotension Code(s): I95.9 - HYPOTENSION, UNSPECIFIED (13) HTN (hypertension) Code(s): I10 - ESSENTIAL (PRIMARY) HYPERTENSION (14) Insomnia disorder Code(s): G47.00 - INSOMNIA, UNSPECIFIED BP better Resume his Metoprolol 25 Po daily as Hr is high Confused on and off Today WBC went up it is not from Steroids Pt is not responding from Current Antibiotics Discussed with ID today Pt had a dose of vancomycin
[2019-04-13 06:53] LABS: BASO % 0.2 % (0-2.0); EOS % 0.1 % (0-4.5); HEMATOCRIT 41.2 % (35.4-49); HEMOGLOBIN 13.9 GM/dL (11.7-16.9); LYMPH % 4.8 % (8-40); MCH 32.2 pg (25.7-33.7); MCHC 33.8 g/dl (32.0-35.9); MEAN CELL VOLUME 95.4 fl (80-96); MEAN PLT VOLUME 8.7 fl (7.5-11.1); MONO % 4.1 % (3.8-10.2); NEUT % 90.8 % (42.8-82.8); PLATELET COUNT 205 K/MM3 (134-434); RBC 4.32 M/mm3 (4.00-5.60); RDW 16.4 % (11.9-15.9); WHITE BLOOD COUNT 18.4 K/mm3 (4.0-10.0)
[2019-04-13 07:16] LABS: BLOOD UREA NITROGEN 54.9 mg/dL (7-18); CALCIUM 8.9 mg/dL (8.5-10.1); CREATININE 1.1 mg/dL (0.55-1.3); POTASSIUM 4.7 mmol/L (3.5-5.1)
[2019-04-13] MEDS: SERTRALINE HCL 50 MG TABLET (FP) PO SCH (08:10)
[2019-04-13] MEDS: ALBUTEROL SO4 2.5/IPRATROPIUM 0.5 INH SOL 3 ML VIAL.NEB. NEB SCH ×4 (08:10→20:42)
[2019-04-13 09:55] LABS: ANISOCYTOSIS 0; MACROCYTOSIS 0; PLATELET ESTIMATE NORMAL
[2019-04-13] MEDS ORDERED: DEXTROSE 5%-WATER 100 ML IVPB ONE ×2 (09:55→21:23)
[2019-04-13] MEDS ORDERED: MEROPENEM 1 GM VIAL (RESTRICTED TO ID) IVPB ONE ×2 (09:55→21:23)
[2019-04-13] MEDS: CARBIDOPA/LEVODOPA 25/100 TABLET (FP) PO SCH ×3 (10:00→17:16)
--- NOTE | 2019-04-13 10:04 | PN ---
Progress Note, Physician History of Present Illness: pulmonary alert,still c/o sob,congestion - Current Medication List Current Medications: Active Medications Acetaminophen (Tylenol -) 650 mg PO Q4H PRN PRN Reason: PAIN LEVEL 1-5 Last Admin: 04/07/19 14:31 Dose: 650 mg Albuterol Sulfate (Ventolin 0.083% Nebulizer Soln -) 1 amp NEB Q4H PRN PRN Reason: SHORT OF BREATH/WHEEZING Last Admin: 04/13/19 05:25 Dose: 1 amp Albuterol/Ipratropium (Duoneb -) 1 amp NEB RQID [facility] Last Admin: 04/13/19 08:10 Dose: 1 amp Ascorbic Acid (Vitamin C -) 500 mg PO BID [facility] Last Admin: 04/12/19 21:45 Dose: 500 mg Budesonide/Formoterol Fumarate (Symbicort 160/4.5mcg -) 2 puff IH BID [facility] Last Admin: 04/12/19 21:46 Dose: 2 puff Carbidopa/Levodopa (Sinemet 25/100 -) 1 each PO TID@0900,1200,1700 [facility] Last Admin: 04/12/19 17:25 Dose: 1 each Enoxaparin Sodium (Lovenox -) 40 mg SQ DAILY [facility] Last Admin: 04/12/19 09:13 Dose: 40 mg Sodium Chloride (1/2 Normal Saline) 1,000 mls @ 70 mls/hr IV ASDIR [facility] Last Admin: 04/08/19 15:01 Dose: 70 mls/hr Meropenem 1 gm/ Dextrose 100 mls @ 200 mls/hr IVPB BID [facility] Last Admin: 04/12/19 21:44 Dose: 200 mls/hr Methylprednisolone Sodium Succinate (Solu-Medrol -) 40 mg IVPUSH BID [facility] Last Admin: 04/12/19 21:44 Dose: 40 mg Metoprolol Succinate (Toprol Xl -) 25 mg PO DAILY [facility] Last Admin: 04/12/19 09:13 Dose: 25 mg Mirtazapine (Remeron -) 15 mg PO HS [facility] Last Admin: 04/12/19 21:45 Dose: 15 mg Pantoprazole Sodium (Protonix Iv) 40 mg IVPUSH BID [facility] Last Admin: 04/12/19 21:44 Dose: 40 mg Potassium Chloride (K-Dur -) 20 meq PO DAILY [facility] Last Admin: 04/12/19 09:12 Dose: 20 meq Sertraline HCl (Zoloft -) 50 mg PO AM [facility] Last Admin: 04/12/19 06:07 Dose: 50 mg Silver Sulfadiazine (Silvadene -) 1 applic TP BID [facility] Last Admin: 04/12/19 21:46 Dose: 1 applic Zinc Oxide/Panthenol/Vitamin E (Balmex Cream -) 1 applic TP BID [facility] Last Admin: 04/12/19 21:46 Dose: 1 applic Zolpidem Tartrate (Ambien -) 5 mg PO HS [facility] Stop: 04/15/19 22:01 Last Admin: 04/12/19 21:45 Dose: 5 mg - Objective Vital Signs: Vital Signs Temperature 98.2 F 04/13/19 05:37 Pulse Rate 89 04/13/19 05:37 Respiratory Rate 20 04/13/19 08:28 Blood Pressure 148/77 04/13/19 05:37 O2 Sat by Pulse Oximetry (%) 96 04/13/19 08:28 Constitutional: Yes: Well Nourished, Calm Eyes: Yes: WNL HENT: Yes: WNL Neck: Yes: WNL Cardiovascular: Yes: Regular Rate and Rhythm, S1, S2 Respiratory: Yes: Rhonchi (bilateral rhonchi) Gastrointestinal: Yes: Normal Bowel Sounds, Soft Extremities: Yes: WNL Edema: No Labs: CBC, BMP 04/13/19 06:05 04/13/19 06:05 INR, PTT INR 1.03 (0.83-1.09) 04/06/19 19:45 Problem List - Problems (1) COPD exacerbation Code(s): J44.1 - CHRONIC OBSTRUCTIVE PULMONARY DISEASE W (ACUTE) EXACERBATION (2) GERD (gastroesophageal reflux disease) Code(s): K21.9 - GASTRO-ESOPHAGEAL REFLUX DISEASE WITHOUT ESOPHAGITIS (3) Bronchiectasis Code(s): J47.9 - BRONCHIECTASIS, UNCOMPLICATED (4) Pulmonary HTN Code(s): I27.20 - PULMONARY HYPERTENSION, UNSPECIFIED Assessment/Plan Problem List - Problems (1) COPD exacerbation Code(s): J44.1 - CHRONIC OBSTRUCTIVE PULMONARY DISEASE W (ACUTE) EXACERBATION A/P Acute COPD Exacerbation Chronic Hypoxic Respiratory Failure Severe Pulmonary HTN CAD HTN - increase medrol to q8 - ABX per ID - inhaled bronchodilators standing and PRN - symbicort - O2 to keep SpO2 >90% - DVT prophylaxis - Champ MOSLEY
[2019-04-13] MEDS: ASCORBIC ACID 500 MG TABLET (FP) PO SCH ×2 (10:05→21:34)
[2019-04-13] MEDS: POTASSIUM CHLORIDE TABS 10 MEQ TABLET.ER (FP) PO SCH (10:05)
[2019-04-13] MEDS: metoPROLOL SUCCINATE 25 MG TAB.SR.24H (FP) PO SCH (10:06)
[2019-04-13] MEDS: BUDESONIDE/FORMETEROL FUMARATE 160/4.5 mcg INHALER IH SCH ×2 (10:07→21:34)
[2019-04-13] MEDS: methylPREDNISolone NA SUCC 40 MG/1 ML VIAL IVPUSH SCH ×2 (10:07→17:14)
[2019-04-13] MEDS: SILVER SULFADIAZINE 1% TOP CREAM 50 GM JAR TP SCH ×2 (10:08→21:35)
[2019-04-13] MEDS: PANTOPRAZOLE SODIUM 40 MG VIAL IVPUSH SCH ×2 (10:08→21:34)
[2019-04-13] MEDS: MEROPENEM 1 GM in DEXTROSE 5%-WATER 100 ML IVPB SCH ×2 (10:19→21:34)
[2019-04-13] MEDS: ENOXAPARIN NA (PORCINE) 40 MG/0.4 ML DISP.SYRIN SQ SCH (10:20)
[2019-04-13] MEDS: ZINC OXIDE/PANTHENOL/VITAMIN E 56 GM TUBE TP SCH ×2 (10:20→21:35)
[2019-04-13] MEDS: TIOTROPIUM BROMIDE 2.5 MCG (SPIRIVA) RESPIMAT INHALER IH SCH (11:58)
--- NOTE | 2019-04-13 12:23 | PN ---
Progress Note (short form) - Note Progress Note: s: sob stable, no chest pain, palps, dizziness, edema. Current Medications Acetaminophen (Tylenol -) 650 mg PO Q4H PRN PRN Reason: PAIN LEVEL 1-5 Last Admin: 04/07/19 14:31 Dose: 650 mg Albuterol Sulfate (Ventolin 0.083% Nebulizer Soln -) 1 amp NEB Q4H PRN PRN Reason: SHORT OF BREATH/WHEEZING Last Admin: 04/13/19 05:25 Dose: 1 amp Albuterol/Ipratropium (Duoneb -) 1 amp NEB RQID [facility] Last Admin: 04/13/19 11:42 Dose: 1 amp Ascorbic Acid (Vitamin C -) 500 mg PO BID [facility] Last Admin: 04/13/19 10:05 Dose: 500 mg Budesonide/Formoterol Fumarate (Symbicort 160/4.5mcg -) 2 puff IH BID [facility] Last Admin: 04/13/19 10:07 Dose: 2 puff Carbidopa/Levodopa (Sinemet 25/100 -) 1 each PO TID@0900,1200,1700 [facility] Last Admin: 04/13/19 11:59 Dose: 1 each Enoxaparin Sodium (Lovenox -) 40 mg SQ DAILY [facility] Last Admin: 04/13/19 10:20 Dose: 40 mg Sodium Chloride (1/2 Normal Saline) 1,000 mls @ 70 mls/hr IV ASDIR [facility] Last Admin: 04/08/19 15:01 Dose: 70 mls/hr Meropenem 1 gm/ Dextrose 100 mls @ 200 mls/hr IVPB BID [facility] Last Admin: 04/13/19 10:19 Dose: 200 mls/hr Methylprednisolone Sodium Succinate (Solu-Medrol -) 40 mg IVPUSH Q8H-IV [facility] Metoprolol Succinate (Toprol Xl -) 25 mg PO DAILY [facility] Last Admin: 04/13/19 10:06 Dose: 25 mg Mirtazapine (Remeron -) 15 mg PO HS [facility] Last Admin: 04/12/19 21:45 Dose: 15 mg Pantoprazole Sodium (Protonix Iv) 40 mg IVPUSH BID [facility] Last Admin: 04/13/19 10:08 Dose: 40 mg Potassium Chloride (K-Dur -) 20 meq PO DAILY [facility] Last Admin: 04/13/19 10:05 Dose: 20 meq Sertraline HCl (Zoloft -) 50 mg PO AM [facility] Last Admin: 04/13/19 08:10 Dose: 50 mg Silver Sulfadiazine (Silvadene -) 1 applic TP BID [facility] Last Admin: 04/13/19 10:08 Dose: 1 applic Tiotropium [place] (Spiriva Respimat) 2 puff IH DAILY [facility] Last Admin: 04/13/19 11:58 Dose: 2 puff Zinc Oxide/Panthenol/Vitamin E (Balmex Cream -) 1 applic TP BID [facility] Last Admin: 04/13/19 10:20 Dose: 1 applic Zolpidem Tartrate (Ambien -) 5 mg PO HS [facility] Stop: 04/15/19 22:01 Last Admin: 04/12/19 21:45 Dose: 5 mg Vital Signs Period Temp Pulse Resp BP Sys/[place] Pulse Ox Last 24 Hr 98 F-98.4 F 89-113 18-20 110-148/69-77 96-96 Constitutional: Yes: Well Nourished, No Distress, Calm Cardiovascular: Yes: Regular Rate and Rhythm, S1, S2. No: JVD, Gallop, Murmur Respiratory: Yes: Regular, Rhonchi. No: Accessory Muscle Use Extremities: No: Cold Edema: No Neurological: Yes: Alert, Oriented Psychiatric: No: Agitated Assessment/Plan echo 02/2019 tds, nl LV function, RV not well visualized, severe pujlm HTN >60 mmHg RVSP stress echo 04/07: apical ischemia a.e. COPD, acute HFpEF: - episode acute sob, R side cp 04/09 AM--resolved with iv lasix/SL nitro, CXR no congestion - lasix held since, remains clinically euvolemic with ongoing phlegmy cough and rhonchi suggesting ongoing sob sec to copd - BNP 3K (range 700-9K)--repeat unchanged here - troponins remained flat when re-cycled after CP episode - steroids and BDs as doing (pulm recs) elevated trop: - borderline trop, flat trend, not c/w acs - EKG no ischemic changes history of stress induced CM: with mild acute on chronic diastolic CHF exacerbation in setting of increased IVF - nl EF on echo 02/2019 - cont lisinopril, bystolic DORIS on CKD: - baseline creat 1.4-1.9 - renal fxn improved here PSVT/PAT: - brief runs, off tele now - cont bb CAD: - +apical ischemia 03/2018 managed medically - no angina - cont aspirin, statin, bystolic HTN: - stable, cont current meds pulm HTN: - 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
--- NOTE | 2019-04-13 12:49 | CONSULT ---
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 He was diagnosed with COPD exacerbation and chronic respiratory failure for which Pulm was consulted. Cardiology was consulted for elevated troponin, who attributed it to COPD as opposed to ACS. ID was consulted as well. He developed exacerbation of heart failure, at which time hospitalist was consulted. He was seen by PT, and on he was Minimum Assist in Transfers, and ambulated 20 feet Contact Guard with Rolling Walker. Physiatry is being consulted for further recommendations. 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 Cardio/Vascular: Yes: HTN, Other (Stress induced CM 03/2018) Pulmonary: Yes: COPD, O2 Dependent Renal/: Yes: Renal Inusuff Psych: Yes: Bipolar, Depression Musculoskeletal: Yes: Osteoarthritis - Past Surgical History Past Surgical History: Yes: Cholecystectomy - Alcohol/Substance Use Hx Alcohol Use: No History of Substance Use: reports: None - Smoking History Smoking history: Former smoker Have you smoked in the past 12 months: No If you are a former smoker, when did you quit?: 1998 - Social History Usual Living Arrangement: With Spouse (with in house with 3 steps to enter and 5 to bathroom) ADL: Independent (Independent ADLs without assistive device) History of Recent Travel: No Home Medications - Allergies Allergies/Adverse Reactions: Allergies Allergy/AdvReac Type Severity Reaction Status Date / Time No Known Allergies Allergy Verified 04/06/19 19:02 - Home Medications Home Medications: Ambulatory Orders Budesonide/Formeterol Fumarate [SYMBICORT 160/4.5mcg -] 2 inh PO BID 02/24/17 Lisinopril 5 mg PO BID 02/25/17 Montelukast Na [Singulair -] 10 mg PO HS 02/25/17 Multivitamin [Poly-Vitamin] 1 each PO DAILY 04/28/17 Albuterol 0.083% Nebulizer Magi [Ventolin 0.083% Nebulizer Soln -] 1 neb NEB TID 04/01/18 Mirtazapine [Remeron -] 15 mg PO HS 10/29/18 Sertraline HCl 50 mg PO AM 10/29/18 Loratadine 1 tab PO DAILY 11/02/18 Carbidopa/Levodopa 25/100 [Sinemet 25/100 -] 1 each PO TID@0900,1200,1700 #30 tablet 03/04/19 Nebivolol [Bystolic -] 10 mg PO DAILY #30 tab 03/04/19 Pantoprazole Sodium [Protonix -] 20 mg PO DAILY #30 tablet.ec 03/04/19 predniSONE [Deltasone -] 10 mg PO BID 04/06/19 Review of Systems Findings/Remarks: Denies fevers, chills, changes in vision/ hearing/ mood, CP, abdominal pain, nausea, vomiting, constipation, diarrhea, dysuria, muscle/ joint pain. Notes SOB / PEARSON at baseline, ongoing cough, and occasional foot paresthesias. Physical Exam Vital Signs: Vital Signs Temperature 98.2 F 04/13/19 05:37 Pulse Rate 89 04/13/19 05:37 Respiratory Rate 20 04/13/19 10:00 Blood Pressure 148/77 04/13/19 05:37 O2 Sat by Pulse Oximetry (%) 96 04/13/19 08:28 Musculoskeletal: Yes: Other (General: calm elderly M sitting in bed NAD, AAO x3; B shoulder flexion to 100 degrees, 4/5 BUE, 3/5 B HF, 4-/5 B KE then 4/5 B DF/ EHL; Pinprick Intact BUE/ BLE; no BLE pitting edema, no B calf tenderness) Labs: CBC, BMP 04/13/19 06:05 04/13/19 06:05 Assessment/Plan Impression: 1) Deficits mobility/ ADLs 2) Deconditioning 3) Gait abnormality 4) COPD exacerbation with hx bronchiectasis 5) CHF exacerbation and chronic respiratory failure with hx 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, CAD, HTN 6) DORIS on CKD/ renal insufficiency 7) hx Parkinson's disease 8) hx depression/ bipolar disorder 9) hx OA 10) BMI WNL 11) Up to date pneumovax, no documented flu shot Recommendations: 1) PT for stretching strengthening ROM endurance and functional mobility 2) Falls, safety precautions 3) Cardiopulmonary precautions 4) DVT ppx: on Lovenox 5) Denies constipation on current bowel regimen 6) Skin protection: float heels, frequent turning 7) Monitor BMP given renal function 8) Continue plan per primary team 9) Discharge planning: he would benefit from inpatient rehabilitation/ subacute rehabilitation once medically stable Thank you for this referral.
--- NOTE | 2019-04-13 17:10 | PN ---
Progress Note, Physician History of Present Illness: continues to be very anxious no fever awaiting for identification of the organism - Current Medication List Current Medications: Active Medications Acetaminophen (Tylenol -) 650 mg PO Q4H PRN PRN Reason: PAIN LEVEL 1-5 Last Admin: 04/07/19 14:31 Dose: 650 mg Albuterol/Ipratropium (Duoneb -) 1 amp NEB RQID [facility] Last Admin: 04/13/19 15:53 Dose: 1 amp Alprazolam (Xanax) 0.5 mg PO BID [facility] Ascorbic Acid (Vitamin C -) 500 mg PO BID [facility] Last Admin: 04/13/19 10:05 Dose: 500 mg Budesonide/Formoterol Fumarate (Symbicort 160/4.5mcg -) 2 puff IH BID [facility] Last Admin: 04/13/19 10:07 Dose: 2 puff Carbidopa/Levodopa (Sinemet 25/100 -) 1 each PO TID@0900,1200,1700 [facility] Last Admin: 04/13/19 11:59 Dose: 1 each Enoxaparin Sodium (Lovenox -) 40 mg SQ DAILY [facility] Last Admin: 04/13/19 10:20 Dose: 40 mg Sodium Chloride (1/2 Normal Saline) 1,000 mls @ 70 mls/hr IV ASDIR [facility] Last Admin: 04/08/19 15:01 Dose: 70 mls/hr Meropenem 1 gm/ Dextrose 100 mls @ 200 mls/hr IVPB BID [facility] Last Admin: 04/13/19 10:19 Dose: 200 mls/hr Methylprednisolone Sodium Succinate (Solu-Medrol -) 40 mg IVPUSH Q8H-IV [facility] Metoprolol Succinate (Toprol Xl -) 25 mg PO DAILY [facility] Last Admin: 04/13/19 10:06 Dose: 25 mg Mirtazapine (Remeron -) 15 mg PO HS [facility] Last Admin: 04/12/19 21:45 Dose: 15 mg Mirtazapine (Remeron -) 30 mg PO HS [facility] Pantoprazole Sodium (Protonix Iv) 40 mg IVPUSH BID [facility] Last Admin: 04/13/19 10:08 Dose: 40 mg Potassium Chloride (K-Dur -) 20 meq PO DAILY [facility] Last Admin: 04/13/19 10:05 Dose: 20 meq Sertraline HCl (Zoloft -) 50 mg PO AM [facility] Last Admin: 04/13/19 08:10 Dose: 50 mg Silver Sulfadiazine (Silvadene -) 1 applic TP BID [facility] Last Admin: 04/13/19 10:08 Dose: 1 applic Tiotropium [place] (Spiriva Respimat) 2 puff IH DAILY [facility] Last Admin: 04/13/19 11:58 Dose: 2 puff Zinc Oxide/Panthenol/Vitamin E (Balmex Cream -) 1 applic TP BID [facility] Last Admin: 04/13/19 10:20 Dose: 1 applic Zolpidem Tartrate (Ambien -) 5 mg PO HS [facility] Stop: 04/15/19 22:01 Last Admin: 04/12/19 21:45 Dose: 5 mg - Objective Vital Signs: Vital Signs Temperature 98.1 F 04/13/19 14:35 Pulse Rate 95 H 04/13/19 14:35 Respiratory Rate 16 04/13/19 14:35 Blood Pressure 128/72 04/13/19 14:35 O2 Sat by Pulse Oximetry (%) 96 04/13/19 08:28 Constitutional: Yes: Calm, Anxious, Mild Distress Cardiovascular: Yes: S1, S2 Respiratory: Yes: Regular, CTA Bilaterally Gastrointestinal: Yes: Normal Bowel Sounds, Soft Musculoskeletal: Yes: WNL Extremities: Yes: WNL Neurological: Yes: Alert, Oriented Psychiatric: Yes: Alert, Oriented Labs: CBC, BMP 04/13/19 06:05 04/13/19 06:05 INR, PTT INR 1.03 (0.83-1.09) 04/06/19 19:45 Assessment/Plan Problem List - Problems (1) Pulmonary hypertension Code(s): I27.20 - PULMONARY HYPERTENSION, UNSPECIFIED (2) GERD (gastroesophageal reflux disease) Code(s): K21.9 - GASTRO-ESOPHAGEAL REFLUX DISEASE WITHOUT ESOPHAGITIS (3) Acute diastolic (congestive) heart failure Code(s): I50.31 - ACUTE DIASTOLIC (CONGESTIVE) HEART FAILURE (4) Acute exacerbation of chronic obstructive pulmonary disease Code(s): J44.1 - CHRONIC OBSTRUCTIVE PULMONARY DISEASE W (ACUTE) EXACERBATION (5) Acute hypoxemic respiratory failure Code(s): J96.01 - ACUTE RESPIRATORY FAILURE WITH HYPOXIA (6) Bipolar 1 disorder Code(s): F31.9 - BIPOLAR DISORDER, UNSPECIFIED (7) Bronchiectasis Code(s): J47.9 - BRONCHIECTASIS, UNCOMPLICATED (8) CHF (congestive heart failure), NYHA class II Code(s): I50.9 - HEART FAILURE, UNSPECIFIED (9) Chronic kidney disease (CKD) Code(s): N18.9 - CHRONIC KIDNEY DISEASE, UNSPECIFIED (10) Elevated troponin Code(s): R74.8 - ABNORMAL LEVELS OF OTHER SERUM ENZYMES (11) Emphysema of lung Code(s): J43.9 - EMPHYSEMA, UNSPECIFIED (12) Hypotension Code(s): I95.9 - HYPOTENSION, UNSPECIFIED (13) HTN (hypertension) Code(s): I10 - ESSENTIAL (PRIMARY) HYPERTENSION (14) Insomnia disorder Code(s): G47.00 - INSOMNIA, UNSPECIFIED plan sputum cx noted await for identification continue abx resp support psych to see the patient rest as per the team
[2019-04-13] MEDS ORDERED: ALPRAZolam 0.25 MG TABLET PO ONE (18:15)
--- NOTE | 2019-04-13 21:20 | PN.GI ---
GI Progress Note - Objective Vital Signs: Vital Signs Temperature 98.4 F 04/13/19 18:00 Pulse Rate 92 H 04/13/19 18:00 Respiratory Rate 16 04/13/19 18:00 Blood Pressure 132/74 04/13/19 18:00 O2 Sat by Pulse Oximetry (%) 96 04/13/19 08:28 Constitutional: Anxious Eyes: Yes: Conjunctiva Clear, EOM Intact HENT: Yes: Atraumatic, Normocephalic Neck: Yes: Supple, Trachea Midline Cardiovascular: Yes: Regular Rate and Rhythm, S1, S2 Respiratory: Yes: Regular, CTA Bilaterally ...Auscultate: Yes: Normoactive Bowel Sounds Musculoskeletal: Yes: Joint Stiffness Edema: No Peripheral Pulses WNL: Yes Labs: CBC, BMP 04/13/19 06:05 04/13/19 06:05 INR, PTT INR 1.03 (0.83-1.09) 04/06/19 19:45 Assessment/Plan (1) Pulmonary hypertension Code(s): I27.20 - PULMONARY HYPERTENSION, UNSPECIFIED (2) GERD (gastroesophageal reflux disease) Code(s): K21.9 - GASTRO-ESOPHAGEAL REFLUX DISEASE WITHOUT ESOPHAGITIS (3) Acute diastolic (congestive) heart failure Code(s): I50.31 - ACUTE DIASTOLIC (CONGESTIVE) HEART FAILURE (4) Acute exacerbation of chronic obstructive pulmonary disease Code(s): J44.1 - CHRONIC OBSTRUCTIVE PULMONARY DISEASE W (ACUTE) EXACERBATION (5) Acute hypoxemic respiratory failure Code(s): J96.01 - ACUTE RESPIRATORY FAILURE WITH HYPOXIA (6) Bipolar 1 disorder Code(s): F31.9 - BIPOLAR DISORDER, UNSPECIFIED (7) Bronchiectasis Code(s): J47.9 - BRONCHIECTASIS, UNCOMPLICATED (8) CHF (congestive heart failure), NYHA class II Code(s): I50.9 - HEART FAILURE, UNSPECIFIED (9) Chronic kidney disease (CKD) Code(s): N18.9 - CHRONIC KIDNEY DISEASE, UNSPECIFIED (10) Elevated troponin Code(s): R74.8 - ABNORMAL LEVELS OF OTHER SERUM ENZYMES (11) Emphysema of lung Code(s): J43.9 - EMPHYSEMA, UNSPECIFIED (12) Hypotension Code(s): I95.9 - HYPOTENSION, UNSPECIFIED (13) HTN (hypertension) Code(s): I10 - ESSENTIAL (PRIMARY) HYPERTENSION (14) Insomnia disorder Code(s): G47.00 - INSOMNIA, UNSPECIFIED Pt Remeron 30 Po daily Psych consult Pt need Rehab as Op Problem List - Problems (1) Pulmonary hypertension Code(s): I27.20 - PULMONARY HYPERTENSION, UNSPECIFIED (2) GERD (gastroesophageal reflux disease) Code(s): K21.9 - GASTRO-ESOPHAGEAL REFLUX DISEASE WITHOUT ESOPHAGITIS (3) Acute diastolic (congestive) heart failure Code(s): I50.31 - ACUTE DIASTOLIC (CONGESTIVE) HEART FAILURE (4) Acute exacerbation of chronic obstructive pulmonary disease Code(s): J44.1 - CHRONIC OBSTRUCTIVE PULMONARY DISEASE W (ACUTE) EXACERBATION (5) Acute hypoxemic respiratory failure Code(s): J96.01 - ACUTE RESPIRATORY FAILURE WITH HYPOXIA (6) Bipolar 1 disorder Code(s): F31.9 - BIPOLAR DISORDER, UNSPECIFIED (7) Bronchiectasis Code(s): J47.9 - BRONCHIECTASIS, UNCOMPLICATED (8) CHF (congestive heart failure), NYHA class II Code(s): I50.9 - HEART FAILURE, UNSPECIFIED (9) Chronic kidney disease (CKD) Code(s): N18.9 - CHRONIC KIDNEY DISEASE, UNSPECIFIED (10) Elevated troponin Code(s): R74.8 - ABNORMAL LEVELS OF OTHER SERUM ENZYMES (11) Emphysema of lung Code(s): J43.9 - EMPHYSEMA, UNSPECIFIED (12) Hypotension Code(s): I95.9 - HYPOTENSION, UNSPECIFIED (13) HTN (hypertension) Code(s): I10 - ESSENTIAL (PRIMARY) HYPERTENSION (14) Insomnia disorder Code(s): G47.00 - INSOMNIA, UNSPECIFIED
[2019-04-13] MEDS: ZOLPIDEM TARTRATE 5 MG TABLET PO SCH (21:34)
[2019-04-13] MEDS: MIRTAZAPINE 30 MG TABLET (FP) PO SCH (21:34)
[2019-04-13] MEDS: ALPRAZolam 1 MG TABLET PO SCH (21:34)
[2019-04-14] MEDS: methylPREDNISolone NA SUCC 40 MG/1 ML VIAL IVPUSH SCH ×3 (01:20→17:52)
[2019-04-14] MEDS: SERTRALINE HCL 50 MG TABLET (FP) PO SCH (06:01)
[2019-04-14 06:59] LABS: BASO % 0.2 % (0-2.0); HEMATOCRIT 40.9 % (35.4-49); HEMOGLOBIN 13.6 GM/dL (11.7-16.9); LYMPH % 2.8 % (8-40); MCH 32.1 pg (25.7-33.7); MCHC 33.3 g/dl (32.0-35.9); MEAN CELL VOLUME 96.5 fl (80-96); MEAN PLT VOLUME 8.6 fl (7.5-11.1); PLATELET COUNT 184 K/MM3 (134-434); RBC 4.24 M/mm3 (4.00-5.60); RDW 16.4 % (11.9-15.9); WHITE BLOOD COUNT 16.2 K/mm3 (4.0-10.0)
[2019-04-14 07:41] LABS: BLOOD UREA NITROGEN 44.6 mg/dL (7-18); CALCIUM 9.2 mg/dL (8.5-10.1)
[2019-04-14] MEDS ORDERED: PT OWN MED DRAWER 7, Y5N ONE ×2 (08:34→09:22)
[2019-04-14] MEDS: ALBUTEROL SO4 2.5/IPRATROPIUM 0.5 INH SOL 3 ML VIAL.NEB. NEB SCH ×5 (08:45→20:29)
[2019-04-14] MEDS ORDERED: MEROPENEM 1 GM VIAL (RESTRICTED TO ID) IVPB ONE ×2 (09:21→21:48)
[2019-04-14] MEDS ORDERED: DEXTROSE 5%-WATER 100 ML IVPB ONE ×2 (09:22→21:48)
[2019-04-14] MEDS: CARBIDOPA/LEVODOPA 25/100 TABLET (FP) PO SCH ×3 (09:24→17:52)
[2019-04-14] MEDS: ENOXAPARIN NA (PORCINE) 40 MG/0.4 ML DISP.SYRIN SQ SCH (09:24)
[2019-04-14] MEDS: MEROPENEM 1 GM in DEXTROSE 5%-WATER 100 ML IVPB SCH ×2 (09:24→21:56)
[2019-04-14] MEDS: ALPRAZolam 1 MG TABLET PO SCH ×2 (09:25→21:56)
[2019-04-14] MEDS: ASCORBIC ACID 500 MG TABLET (FP) PO SCH ×2 (09:25→21:56)
[2019-04-14] MEDS: POTASSIUM CHLORIDE TABS 10 MEQ TABLET.ER (FP) PO SCH (09:25)
[2019-04-14] MEDS: PANTOPRAZOLE SODIUM 40 MG VIAL IVPUSH SCH ×2 (09:25→21:56)
[2019-04-14] MEDS: BUDESONIDE/FORMETEROL FUMARATE 160/4.5 mcg INHALER IH SCH ×2 (09:26→21:57)
[2019-04-14] MEDS: TIOTROPIUM BROMIDE 2.5 MCG (SPIRIVA) RESPIMAT INHALER IH SCH (09:26)
[2019-04-14] MEDS: metoPROLOL SUCCINATE 25 MG TAB.SR.24H (FP) PO SCH (09:26)
[2019-04-14] MEDS: ZINC OXIDE/PANTHENOL/VITAMIN E 56 GM TUBE TP SCH ×2 (09:27→21:57)
[2019-04-14] MEDS: SILVER SULFADIAZINE 1% TOP CREAM 50 GM JAR TP SCH ×2 (09:27→21:57)
--- NOTE | 2019-04-14 09:52 | PN ---
Progress Note, Physician History of Present Illness: pulmonary alert,feeling better,less dyspneic - Current Medication List Current Medications: Active Medications Acetaminophen (Tylenol -) 650 mg PO Q4H PRN PRN Reason: PAIN LEVEL 1-5 Last Admin: 04/07/19 14:31 Dose: 650 mg Albuterol/Ipratropium (Duoneb -) 1 amp NEB RQID [facility] Last Admin: 04/14/19 08:45 Dose: 1 amp Alprazolam (Xanax) 0.5 mg PO BID [facility] Last Admin: 04/14/19 09:25 Dose: 0.5 mg Ascorbic Acid (Vitamin C -) 500 mg PO BID [facility] Last Admin: 04/14/19 09:25 Dose: 500 mg Budesonide/Formoterol Fumarate (Symbicort 160/4.5mcg -) 2 puff IH BID [facility] Last Admin: 04/14/19 09:26 Dose: 2 puff Carbidopa/Levodopa (Sinemet 25/100 -) 1 each PO TID@0900,1200,1700 [facility] Last Admin: 04/14/19 09:24 Dose: 1 each Enoxaparin Sodium (Lovenox -) 40 mg SQ DAILY [facility] Last Admin: 04/14/19 09:24 Dose: 40 mg Sodium Chloride (1/2 Normal Saline) 1,000 mls @ 70 mls/hr IV ASDIR [facility] Last Admin: 04/08/19 15:01 Dose: 70 mls/hr Meropenem 1 gm/ Dextrose 100 mls @ 200 mls/hr IVPB BID [facility] Last Admin: 04/14/19 09:24 Dose: 200 mls/hr Methylprednisolone Sodium Succinate (Solu-Medrol -) 40 mg IVPUSH Q8H-IV [facility] Last Admin: 04/14/19 09:24 Dose: 40 mg Metoprolol Succinate (Toprol Xl -) 25 mg PO DAILY [facility] Last Admin: 04/14/19 09:26 Dose: 25 mg Mirtazapine (Remeron -) 30 mg PO HS [facility] Last Admin: 04/13/19 21:34 Dose: 30 mg Pantoprazole Sodium (Protonix Iv) 40 mg IVPUSH BID [facility] Last Admin: 04/14/19 09:25 Dose: 40 mg Potassium Chloride (K-Dur -) 20 meq PO DAILY [facility] Last Admin: 04/14/19 09:25 Dose: 20 meq Sertraline HCl (Zoloft -) 50 mg PO AM [facility] Last Admin: 04/14/19 06:01 Dose: 50 mg Silver Sulfadiazine (Silvadene -) 1 applic TP BID [facility] Last Admin: 04/14/19 09:27 Dose: 1 applic Tiotropium [place] (Spiriva Respimat) 2 puff IH DAILY [facility] Last Admin: 04/14/19 09:26 Dose: 2 puff Zinc Oxide/Panthenol/Vitamin E (Balmex Cream -) 1 applic TP BID [facility] Last Admin: 04/14/19 09:27 Dose: 1 applic Zolpidem Tartrate (Ambien -) 5 mg PO HS [facility] Stop: 04/15/19 22:01 Last Admin: 04/13/19 21:34 Dose: 5 mg - Objective Vital Signs: Vital Signs Temperature 98.1 F 04/14/19 06:00 Pulse Rate 73 04/14/19 06:00 Respiratory Rate 18 04/14/19 06:00 Blood Pressure 136/76 04/14/19 06:00 O2 Sat by Pulse Oximetry (%) 98 04/13/19 21:00 Constitutional: Yes: Well Nourished, Calm Eyes: Yes: WNL HENT: Yes: WNL Neck: Yes: WNL Cardiovascular: Yes: Regular Rate and Rhythm, S1, S2 Respiratory: Yes: Rhonchi (scattered jossie rhonchi) Gastrointestinal: Yes: Normal Bowel Sounds, Soft Extremities: Yes: WNL Edema: No Labs: CBC, BMP 04/14/19 06:40 04/14/19 06:40 INR, PTT INR 1.03 (0.83-1.09) 04/06/19 19:45 Problem List - Problems (1) COPD exacerbation Code(s): J44.1 - CHRONIC OBSTRUCTIVE PULMONARY DISEASE W (ACUTE) EXACERBATION (2) GERD (gastroesophageal reflux disease) Code(s): K21.9 - GASTRO-ESOPHAGEAL REFLUX DISEASE WITHOUT ESOPHAGITIS (3) Bronchiectasis Code(s): J47.9 - BRONCHIECTASIS, UNCOMPLICATED (4) Pulmonary HTN Code(s): I27.20 - PULMONARY HYPERTENSION, UNSPECIFIED Assessment/Plan Problem List - Problems (1) COPD exacerbation Code(s): J44.1 - CHRONIC OBSTRUCTIVE PULMONARY DISEASE W (ACUTE) EXACERBATION A/P Acute COPD Exacerbation Chronic Hypoxic Respiratory Failure Severe Pulmonary HTN CAD HTN - continue medrol q8 - ABX per ID - inhaled bronchodilators standing and PRN - symbicort - O2 to keep SpO2 >90% - DVT prophylaxis - Champ MOSLEY
[2019-04-14 10:22] LABS: ANISOCYTOSIS 0; MACROCYTOSIS 0; PLATELET ESTIMATE NORMAL
--- NOTE | 2019-04-14 11:15 | PN ---
Progress Note (short form) - Note Progress Note: s: stable sob, cough. no chest pain, palps, dizziness, edema. Current Medications Acetaminophen (Tylenol -) 650 mg PO Q4H PRN PRN Reason: PAIN LEVEL 1-5 Last Admin: 04/07/19 14:31 Dose: 650 mg Albuterol/Ipratropium (Duoneb -) 1 amp NEB RQID [facility] Last Admin: 04/14/19 08:45 Dose: 1 amp Alprazolam (Xanax) 0.5 mg PO BID [facility] Last Admin: 04/14/19 09:25 Dose: 0.5 mg Ascorbic Acid (Vitamin C -) 500 mg PO BID [facility] Last Admin: 04/14/19 09:25 Dose: 500 mg Budesonide/Formoterol Fumarate (Symbicort 160/4.5mcg -) 2 puff IH BID [facility] Last Admin: 04/14/19 09:26 Dose: 2 puff Carbidopa/Levodopa (Sinemet 25/100 -) 1 each PO TID@0900,1200,1700 [facility] Last Admin: 04/14/19 09:24 Dose: 1 each Enoxaparin Sodium (Lovenox -) 40 mg SQ DAILY [facility] Last Admin: 04/14/19 09:24 Dose: 40 mg Sodium Chloride (1/2 Normal Saline) 1,000 mls @ 70 mls/hr IV ASDIR [facility] Last Admin: 04/08/19 15:01 Dose: 70 mls/hr Meropenem 1 gm/ Dextrose 100 mls @ 200 mls/hr IVPB BID [facility] Last Admin: 04/14/19 09:24 Dose: 200 mls/hr Methylprednisolone Sodium Succinate (Solu-Medrol -) 40 mg IVPUSH Q8H-IV [facility] Last Admin: 04/14/19 09:24 Dose: 40 mg Metoprolol Succinate (Toprol Xl -) 25 mg PO DAILY [facility] Last Admin: 04/14/19 09:26 Dose: 25 mg Mirtazapine (Remeron -) 30 mg PO HS [facility] Last Admin: 04/13/19 21:34 Dose: 30 mg Pantoprazole Sodium (Protonix Iv) 40 mg IVPUSH BID [facility] Last Admin: 04/14/19 09:25 Dose: 40 mg Potassium Chloride (K-Dur -) 20 meq PO DAILY [facility] Last Admin: 04/14/19 09:25 Dose: 20 meq Sertraline HCl (Zoloft -) 50 mg PO AM [facility] Last Admin: 04/14/19 06:01 Dose: 50 mg Silver Sulfadiazine (Silvadene -) 1 applic TP BID [facility] Last Admin: 04/14/19 09:27 Dose: 1 applic Tiotropium [place] (Spiriva Respimat) 2 puff IH DAILY [facility] Last Admin: 04/14/19 09:26 Dose: 2 puff Zinc Oxide/Panthenol/Vitamin E (Balmex Cream -) 1 applic TP BID [facility] Last Admin: 04/14/19 09:27 Dose: 1 applic Zolpidem Tartrate (Ambien -) 5 mg PO HS [facility] Stop: 04/15/19 22:01 Last Admin: 04/13/19 21:34 Dose: 5 mg Vital Signs Period Temp Pulse Resp BP Sys/[place] Pulse Ox Last 24 Hr 97.6 F-98.4 F 73-95 16-18 117-136/71-76 98 Constitutional: Yes: Well Nourished, No Distress, Calm Cardiovascular: Yes: Regular Rate and Rhythm, S1, S2. No: JVD, Gallop, Murmur Respiratory: Yes: Regular, Rhonchi. No: Accessory Muscle Use Extremities: No: Cold Edema: No Neurological: Yes: Alert, Oriented Psychiatric: No: Agitated Assessment/Plan echo 02/2019 tds, nl LV function, RV not well visualized, severe pujlm HTN >60 mmHg RVSP stress echo 04/07: apical ischemia a.e. COPD, acute HFpEF: - episode acute sob, R side cp 04/09 AM--resolved with iv lasix/SL nitro, CXR no congestion - lasix held since, remains clinically euvolemic with ongoing phlegmy cough and rhonchi suggesting ongoing sob sec to copd - BNP 3K (range 700-9K)--repeat unchanged here - troponins remained flat when re-cycled after CP episode - steroids and BDs as doing (pulm recs) elevated trop: - borderline trop, flat trend, not c/w acs - EKG no ischemic changes history of stress induced CM: with mild acute on chronic diastolic CHF exacerbation in setting of increased IVF - nl EF on echo 02/2019 - cont lisinopril, bystolic DORIS on CKD: - baseline creat 1.4-1.9 - renal fxn improved here PSVT/PAT: - brief runs, off tele now - cont bb CAD: - +apical ischemia 03/2018 managed medically - no angina - cont aspirin, statin, bystolic HTN: - stable, cont current meds pulm HTN: - 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
--- NOTE | 2019-04-14 12:54 | PN ---
Progress Note, Physician History of Present Illness: Pt is better but depressed. Psych consult Pt needs STR - Current Medication List Current Medications: Active Medications Acetaminophen (Tylenol -) 650 mg PO Q4H PRN PRN Reason: PAIN LEVEL 1-5 Last Admin: 04/07/19 14:31 Dose: 650 mg Albuterol/Ipratropium (Duoneb -) 1 amp NEB RQID [facility] Last Admin: 04/14/19 12:30 Dose: 1 amp Alprazolam (Xanax) 0.5 mg PO BID [facility] Last Admin: 04/14/19 09:25 Dose: 0.5 mg Ascorbic Acid (Vitamin C -) 500 mg PO BID [facility] Last Admin: 04/14/19 09:25 Dose: 500 mg Budesonide/Formoterol Fumarate (Symbicort 160/4.5mcg -) 2 puff IH BID [facility] Last Admin: 04/14/19 09:26 Dose: 2 puff Carbidopa/Levodopa (Sinemet 25/100 -) 1 each PO TID@0900,1200,1700 [facility] Last Admin: 04/14/19 11:52 Dose: 1 each Enoxaparin Sodium (Lovenox -) 40 mg SQ DAILY [facility] Last Admin: 04/14/19 09:24 Dose: 40 mg Sodium Chloride (1/2 Normal Saline) 1,000 mls @ 70 mls/hr IV ASDIR [facility] Last Admin: 04/08/19 15:01 Dose: 70 mls/hr Meropenem 1 gm/ Dextrose 100 mls @ 200 mls/hr IVPB BID [facility] Last Admin: 04/14/19 09:24 Dose: 200 mls/hr Methylprednisolone Sodium Succinate (Solu-Medrol -) 40 mg IVPUSH Q8H-IV [facility] Last Admin: 04/14/19 09:24 Dose: 40 mg Metoprolol Succinate (Toprol Xl -) 25 mg PO DAILY [facility] Last Admin: 04/14/19 09:26 Dose: 25 mg Mirtazapine (Remeron -) 30 mg PO HS [facility] Last Admin: 04/13/19 21:34 Dose: 30 mg Pantoprazole Sodium (Protonix Iv) 40 mg IVPUSH BID [facility] Last Admin: 04/14/19 09:25 Dose: 40 mg Potassium Chloride (K-Dur -) 20 meq PO DAILY [facility] Last Admin: 04/14/19 09:25 Dose: 20 meq Sertraline HCl (Zoloft -) 50 mg PO AM [facility] Last Admin: 04/14/19 06:01 Dose: 50 mg Silver Sulfadiazine (Silvadene -) 1 applic TP BID [facility] Last Admin: 04/14/19 09:27 Dose: 1 applic Tiotropium [place] (Spiriva Respimat) 2 puff IH DAILY [facility] Last Admin: 04/14/19 09:26 Dose: 2 puff Zinc Oxide/Panthenol/Vitamin E (Balmex Cream -) 1 applic TP BID [facility] Last Admin: 04/14/19 09:27 Dose: 1 applic Zolpidem Tartrate (Ambien -) 5 mg PO HS [facility] Stop: 04/15/19 22:01 Last Admin: 04/13/19 21:34 Dose: 5 mg - Objective Vital Signs: Vital Signs Temperature 98.2 F 04/14/19 10:00 Pulse Rate 88 04/14/19 10:00 Respiratory Rate 19 04/14/19 10:00 Blood Pressure 140/85 04/14/19 10:00 O2 Sat by Pulse Oximetry (%) 96 04/14/19 09:00 Constitutional: Yes: Anxious Eyes: Yes: Conjunctiva Clear, EOM Intact HENT: Yes: Atraumatic, Normocephalic Cardiovascular: Yes: Regular Rate and Rhythm Respiratory: Yes: Regular, CTA Bilaterally Gastrointestinal: Yes: Normal Bowel Sounds, Soft Musculoskeletal: Yes: Joint Stiffness Edema: No Peripheral Pulses WNL: Yes Labs: CBC, BMP 04/14/19 06:40 04/14/19 06:40 INR, PTT INR 1.03 (0.83-1.09) 04/06/19 19:45 Problem List - Problems (1) Pulmonary hypertension Code(s): I27.20 - PULMONARY HYPERTENSION, UNSPECIFIED (2) GERD (gastroesophageal reflux disease) Code(s): K21.9 - GASTRO-ESOPHAGEAL REFLUX DISEASE WITHOUT ESOPHAGITIS (3) Acute diastolic (congestive) heart failure Code(s): I50.31 - ACUTE DIASTOLIC (CONGESTIVE) HEART FAILURE (4) Acute exacerbation of chronic obstructive pulmonary disease Code(s): J44.1 - CHRONIC OBSTRUCTIVE PULMONARY DISEASE W (ACUTE) EXACERBATION (5) Acute hypoxemic respiratory failure Code(s): J96.01 - ACUTE RESPIRATORY FAILURE WITH HYPOXIA (6) Bipolar 1 disorder Code(s): F31.9 - BIPOLAR DISORDER, UNSPECIFIED (7) Bronchiectasis Code(s): J47.9 - BRONCHIECTASIS, UNCOMPLICATED (8) CHF (congestive heart failure), NYHA class II Code(s): I50.9 - HEART FAILURE, UNSPECIFIED (9) Chronic kidney disease (CKD) Code(s): N18.9 - CHRONIC KIDNEY DISEASE, UNSPECIFIED (10) Elevated troponin Code(s): R74.8 - ABNORMAL LEVELS OF OTHER SERUM ENZYMES (11) Emphysema of lung Code(s): J43.9 - EMPHYSEMA, UNSPECIFIED (12) Hypotension Code(s): I95.9 - HYPOTENSION, UNSPECIFIED (13) HTN (hypertension) Code(s): I10 - ESSENTIAL (PRIMARY) HYPERTENSION (14) Insomnia disorder Code(s): G47.00 - INSOMNIA, UNSPECIFIED Assessment/Plan (1) Pulmonary hypertension Code(s): I27.20 - PULMONARY HYPERTENSION, UNSPECIFIED (2) GERD (gastroesophageal reflux disease) Code(s): K21.9 - GASTRO-ESOPHAGEAL REFLUX DISEASE WITHOUT ESOPHAGITIS (3) Acute diastolic (congestive) heart failure Code(s): I50.31 - ACUTE DIASTOLIC (CONGESTIVE) HEART FAILURE (4) Acute exacerbation of chronic obstructive pulmonary disease Code(s): J44.1 - CHRONIC OBSTRUCTIVE PULMONARY DISEASE W (ACUTE) EXACERBATION (5) Acute hypoxemic respiratory failure Code(s): J96.01 - ACUTE RESPIRATORY FAILURE WITH HYPOXIA (6) Bipolar 1 disorder Code(s): F31.9 - BIPOLAR DISORDER, UNSPECIFIED (7) Bronchiectasis Code(s): J47.9 - BRONCHIECTASIS, UNCOMPLICATED (8) CHF (congestive heart failure), NYHA class II Code(s): I50.9 - HEART FAILURE, UNSPECIFIED (9) Chronic kidney disease (CKD) Code(s): N18.9 - CHRONIC KIDNEY DISEASE, UNSPECIFIED (10) Elevated troponin Code(s): R74.8 - ABNORMAL LEVELS OF OTHER SERUM ENZYMES (11) Emphysema of lung Code(s): J43.9 - EMPHYSEMA, UNSPECIFIED (12) Hypotension Code(s): I95.9 - HYPOTENSION, UNSPECIFIED (13) HTN (hypertension) Code(s): I10 - ESSENTIAL (PRIMARY) HYPERTENSION (14) Insomnia disorder Code(s): G47.00 - INSOMNIA, UNSPECIFIED Pt Remeron 30 Po daily Psych consult Pt need Rehab as discussed with and Pt
[2019-04-14] MEDS: MIRTAZAPINE 30 MG TABLET (FP) PO SCH (21:56)
[2019-04-14] MEDS: ZOLPIDEM TARTRATE 5 MG TABLET PO SCH (21:56)
[2019-04-15] MEDS: methylPREDNISolone NA SUCC 40 MG/1 ML VIAL IVPUSH SCH ×4 (01:30→22:05)
[2019-04-15] MEDS: SERTRALINE HCL 50 MG TABLET (FP) PO SCH (06:12)
[2019-04-15 06:50] LABS: BASO % 0.1 % (0-2.0); HEMATOCRIT 41.7 % (35.4-49); LYMPH % 2.6 % (8-40); MCHC 33.6 g/dl (32.0-35.9); MEAN CELL VOLUME 95.2 fl (80-96); MEAN PLT VOLUME 8.6 fl (7.5-11.1); MONO % 2.5 % (3.8-10.2); NEUT % 94.8 % (42.8-82.8); PLATELET COUNT 229 K/MM3 (134-434); RBC 4.38 M/mm3 (4.00-5.60); RDW 16.7 % (11.9-15.9); WHITE BLOOD COUNT 19.3 K/mm3 (4.0-10.0)
[2019-04-15 06:58] LABS: BLOOD UREA NITROGEN 49.6 mg/dL (7-18); CALCIUM 9.3 mg/dL (8.5-10.1); CREATININE 0.9 mg/dL (0.55-1.3); POTASSIUM 4.9 mmol/L (3.5-5.1)
[2019-04-15] MEDS: ALBUTEROL SO4 2.5/IPRATROPIUM 0.5 INH SOL 3 ML VIAL.NEB. NEB SCH ×2 (08:18→12:37)
[2019-04-15] MEDS ORDERED: MEROPENEM 1 GM VIAL (RESTRICTED TO ID) IVPB ONE (09:14)
[2019-04-15] MEDS ORDERED: DEXTROSE 5%-WATER 100 ML IVPB ONE (09:14)
[2019-04-15] MEDS: ALPRAZolam 1 MG TABLET PO SCH (09:33)
[2019-04-15] MEDS: MEROPENEM 1 GM in DEXTROSE 5%-WATER 100 ML IVPB SCH (09:34)
[2019-04-15] MEDS: POTASSIUM CHLORIDE TABS 10 MEQ TABLET.ER (FP) PO SCH (09:34)
[2019-04-15] MEDS: metoPROLOL SUCCINATE 25 MG TAB.SR.24H (FP) PO SCH (09:34)
[2019-04-15] MEDS: TIOTROPIUM BROMIDE 2.5 MCG (SPIRIVA) RESPIMAT INHALER IH SCH (09:34)
[2019-04-15] MEDS: SILVER SULFADIAZINE 1% TOP CREAM 50 GM JAR TP SCH ×2 (09:34→22:07)
[2019-04-15] MEDS: BUDESONIDE/FORMETEROL FUMARATE 160/4.5 mcg INHALER IH SCH ×2 (09:34→22:07)
[2019-04-15] MEDS: ASCORBIC ACID 500 MG TABLET (FP) PO SCH ×2 (09:34→22:07)
[2019-04-15] MEDS: ZINC OXIDE/PANTHENOL/VITAMIN E 56 GM TUBE TP SCH ×2 (09:34→22:08)
[2019-04-15] MEDS: PANTOPRAZOLE SODIUM 40 MG VIAL IVPUSH SCH ×2 (09:35→22:06)
[2019-04-15] MEDS: CARBIDOPA/LEVODOPA 25/100 TABLET (FP) PO SCH ×3 (09:38→17:20)
--- NOTE | 2019-04-15 09:49 | PN ---
Progress Note (short form) - Note Progress Note: States breathing feels a little better today. No acute events overnight. Intake & Output 04/12/19 04/13/19 04/14/19 04/15/19 23:59 23:59 23:59 23:59 Intake Total 580 1000 400 Output Total 700 1075 200 Balance 580 300 -675 -200 Weight 133 lb 12.8 oz 133 lb 7 oz Last Vital Signs Temp Pulse Resp BP Pulse Ox 98.0 F 77 18 140/74 97 04/15/19 08:21 04/15/19 08:21 04/15/19 08:21 04/15/19 08:21 04/14/19 21:00 Active Medications Acetaminophen (Tylenol -) 650 mg PO Q4H PRN PRN Reason: PAIN LEVEL 1-5 Last Admin: 04/07/19 14:31 Dose: 650 mg Albuterol/Ipratropium (Duoneb -) 1 amp NEB RQID [facility] Last Admin: 04/15/19 08:18 Dose: 1 amp Alprazolam (Xanax) 0.5 mg PO BID [facility] Last Admin: 04/14/19 21:56 Dose: 0.5 mg Ascorbic Acid (Vitamin C -) 500 mg PO BID [facility] Last Admin: 04/14/19 21:56 Dose: 500 mg Budesonide/Formoterol Fumarate (Symbicort 160/4.5mcg -) 2 puff IH BID [facility] Last Admin: 04/14/19 21:57 Dose: 2 puff Carbidopa/Levodopa (Sinemet 25/100 -) 1 each PO TID@0900,1200,1700 [facility] Last Admin: 04/14/19 17:52 Dose: 1 each Enoxaparin Sodium (Lovenox -) 40 mg SQ DAILY [facility] Last Admin: 04/14/19 09:24 Dose: 40 mg Sodium Chloride (1/2 Normal Saline) 1,000 mls @ 70 mls/hr IV ASDIR [facility] Last Admin: 04/08/19 15:01 Dose: 70 mls/hr Meropenem 1 gm/ Dextrose 100 mls @ 200 mls/hr IVPB BID [facility] Last Admin: 04/14/19 21:56 Dose: 200 mls/hr Methylprednisolone Sodium Succinate (Solu-Medrol -) 40 mg IVPUSH Q8H-IV [facility] Last Admin: 04/15/19 01:30 Dose: 40 mg Metoprolol Succinate (Toprol Xl -) 25 mg PO DAILY [facility] Last Admin: 04/14/19 09:26 Dose: 25 mg Mirtazapine (Remeron -) 30 mg PO HS [facility] Last Admin: 04/14/19 21:56 Dose: 30 mg Pantoprazole Sodium (Protonix Iv) 40 mg IVPUSH BID [facility] Last Admin: 04/14/19 21:56 Dose: 40 mg Potassium Chloride (K-Dur -) 20 meq PO DAILY [facility] Last Admin: 04/14/19 09:25 Dose: 20 meq Sertraline HCl (Zoloft -) 50 mg PO AM [facility] Last Admin: 04/15/19 06:12 Dose: 50 mg Silver Sulfadiazine (Silvadene -) 1 applic TP BID [facility] Last Admin: 04/14/19 21:57 Dose: 1 applic Tiotropium [place] (Spiriva Respimat) 2 puff IH DAILY [facility] Last Admin: 04/14/19 09:26 Dose: 2 puff Zinc Oxide/Panthenol/Vitamin E (Balmex Cream -) 1 applic TP BID [facility] Last Admin: 04/14/19 21:57 Dose: 1 applic Zolpidem Tartrate (Ambien -) 5 mg PO HS [facility] Stop: 04/15/19 22:01 Last Admin: 04/14/19 21:56 Dose: 5 mg Gen: NAD at rest Heart: RRR Lung: bilateral rhonchi, no wheeze Abd: soft, nontender Ext: no edema Laboratory Results - last 24 hr 04/14/19 04/15/19 04/15/19 06:40 06:00 06:00 WBC 19.3 H RBC 4.38 Hgb 14.0 Hct 41.7 MCV 95.2 MCH 32.0 MCHC 33.6 RDW 16.7 H Plt Count 229 D MPV 8.6 Absolute Neuts (auto) 18.3 H Neutrophils % 94.8 H Neutrophils % (Manual) 93.0 H D Band Neutrophils % 1.0 Lymphocytes % 2.6 L Lymphocytes % (Manual) 2.0 L D Monocytes % 2.5 L Monocytes % (Manual) 1 L D Eosinophils % 0.0 Eosinophils % (Manual) 0.0 Basophils % 0.1 Basophils % (Manual) 0.0 Myelocytes % (Man) 1 Promyelocytes % (Man) 0 Blast Cells % (Manual) 0 Nucleated RBC % 0 0 Metamyelocytes 2 D Hypochromia 0 Platelet Estimate Normal Platelet Comment Present Polychromasia 0 Poikilocytosis 0 Anisocytosis 0 Microcytosis 0 Macrocytosis 0 Sodium 136 Potassium 4.9 Chloride 101 Carbon Dioxide 28 Anion Gap 7 L BUN 49.6 H Creatinine 0.9 Est GFR (CKD-EPI)AfAm 88.69 Est GFR (CKD-EPI)NonAf 76.52 Random Glucose 127 H Calcium 9.3 Problem List - Problems (1) COPD exacerbation Code(s): J44.1 - CHRONIC OBSTRUCTIVE PULMONARY DISEASE W (ACUTE) EXACERBATION A/P Acute COPD Exacerbation Chronic Hypoxic Respiratory Failure Severe Pulmonary HTN CAD HTN - Taper medrol to 30mg Q12h - ABX per ID - inhaled bronchodilators standing and PRN - symbicort - O2 to keep SpO2 >90% - DVT prophylaxis Dr Martinez
[2019-04-15 09:52] LABS: ANISOCYTOSIS 0; MACROCYTOSIS 0; PLATELET ESTIMATE NORMAL
--- NOTE | 2019-04-15 10:10 | PN ---
Progress Note (short form) - Note Progress Note: s: stable sob, cough. no chest pain, palps, dizziness, edema. Current Medications Generic Name Dose Route Start Last Admin Trade Name Freq PRN Reason Stop Dose Admin Acetaminophen 650 mg 04/07/19 00:02 04/07/19 14:31 Tylenol - PO 650 mg Q4H PRN Administration PAIN LEVEL 1-5 Albuterol/Ipratropium 1 amp 04/06/19 08:00 04/15/19 08:18 Duoneb - NEB 1 amp RQID [facility] Administration Alprazolam 0.5 mg 04/13/19 22:00 04/15/19 09:33 Xanax PO 0.5 mg BID [facility] Administration Ascorbic Acid 500 mg 04/07/19 22:00 04/15/19 09:34 Vitamin C - PO 500 mg BID [facility] Administration Budesonide/Formoterol Fumarate 2 puff 04/08/19 13:30 04/15/19 09:34 Symbicort 160/4.5mcg - IH 2 puff BID [facility] Administration Carbidopa/Levodopa 1 each 04/07/19 09:00 04/15/19 09:38 Sinemet 25/100 - PO 1 each TID@0900,1200,1700 [facility] Administration Sodium Chloride 1,000 mls @ 70 mls/hr 04/07/19 21:30 04/08/19 15:01 1/2 Normal Saline IV 70 mls/hr ASDIR [facility] Administration Meropenem 1 gm/ Dextrose 100 mls @ 200 mls/hr 04/11/19 12:00 04/15/19 09:34 IVPB 200 mls/hr BID [facility] Administration As Directed Methylprednisolone Sodium Succinate 30 mg 04/15/19 10:00 Solu-Medrol - IVPUSH BID [facility] Metoprolol Succinate 25 mg 04/11/19 10:00 04/15/19 09:34 Toprol Xl - PO 25 mg DAILY [facility] Administration Mirtazapine 30 mg 04/13/19 22:00 04/14/19 21:56 Remeron - PO 30 mg HS [facility] Administration Pantoprazole Sodium 40 mg 04/07/19 10:00 04/15/19 09:35 Protonix Iv IVPUSH 40 mg BID [facility] Administration Potassium Chloride 20 meq 04/07/19 10:00 04/15/19 09:34 K-Dur - PO 20 meq DAILY [facility] Administration Sertraline HCl 50 mg 04/07/19 07:00 04/15/19 06:12 Zoloft - PO 50 mg AM [facility] Administration Silver Sulfadiazine 1 applic 04/07/19 22:00 04/15/19 09:34 Silvadene - TP 1 applic BID [facility] Administration Tiotropium [place] 2 puff 04/13/19 10:30 04/15/19 09:34 Spiriva Respimat IH 2 puff DAILY [facility] Administration Zinc Oxide/Panthenol/Vitamin E 1 applic 04/07/19 22:00 04/15/19 09:34 Balmex Cream - TP 1 applic BID [facility] Administration Zolpidem Tartrate 5 mg 04/09/19 22:00 04/14/19 21:56 Ambien - PO 04/15/19 22:01 5 mg HS [facility] Administration Vital Signs Period Temp Pulse Resp BP Sys/[place] Pulse Ox Last 24 Hr 97.5 F-98.8 F 77-98 18-20 125-149/62-87 97 Constitutional: Yes: Well Nourished, No Distress, Calm Cardiovascular: Yes: Regular Rate and Rhythm, S1, S2. No: JVD, Gallop, Murmur Respiratory: Yes: Regular, Rhonchi. No: Accessory Muscle Use Extremities: No: Cold Edema: No Neurological: Yes: Alert, Oriented Psychiatric: No: Agitated Assessment/Plan echo 02/2019 tds, nl LV function, RV not well visualized, severe pujlm HTN >60 mmHg RVSP stress echo 04/07: apical ischemia a.e. COPD, acute HFpEF: - episode acute sob, R side cp 04/09 AM--resolved with iv lasix/SL nitro, CXR no congestion - lasix held since, remains clinically euvolemic with ongoing phlegmy cough and rhonchi suggesting ongoing sob sec to copd - BNP 3K (range 700-9K)--repeat unchanged here - troponins remained flat when re-cycled after CP episode - steroids and BDs as doing (pulm recs) elevated trop: - borderline trop, flat trend, not c/w acs - EKG no ischemic changes history of stress induced CM: with mild acute on chronic diastolic CHF exacerbation in setting of increased IVF - nl EF on echo 02/2019 - cont lisinopril, bystolic DORIS on CKD: - baseline creat 1.4-1.9 - renal fxn improved here PSVT/PAT: - brief runs, off tele now - cont bb CAD: - +apical ischemia 03/2018 managed medically - no angina - cont aspirin, statin, bystolic HTN: - stable, cont current meds pulm HTN: - 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
--- NOTE | 2019-04-15 11:47 | PN ---
Progress Note, Physician History of Present Illness: patient srtill very depressed breathing better cx result noted - Current Medication List Current Medications: Active Medications Acetaminophen (Tylenol -) 650 mg PO Q4H PRN PRN Reason: PAIN LEVEL 1-5 Last Admin: 04/07/19 14:31 Dose: 650 mg Albuterol/Ipratropium (Duoneb -) 1 amp NEB RQID [facility] Last Admin: 04/15/19 08:18 Dose: 1 amp Alprazolam (Xanax) 0.5 mg PO BID [facility] Last Admin: 04/15/19 09:33 Dose: 0.5 mg Ascorbic Acid (Vitamin C -) 500 mg PO BID [facility] Last Admin: 04/15/19 09:34 Dose: 500 mg Budesonide/Formoterol Fumarate (Symbicort 160/4.5mcg -) 2 puff IH BID [facility] Last Admin: 04/15/19 09:34 Dose: 2 puff Carbidopa/Levodopa (Sinemet 25/100 -) 1 each PO TID@0900,1200,1700 [facility] Last Admin: 04/15/19 09:38 Dose: 1 each Sodium Chloride (1/2 Normal Saline) 1,000 mls @ 70 mls/hr IV ASDIR [facility] Last Admin: 04/08/19 15:01 Dose: 70 mls/hr Levofloxacin (Levaquin -) 750 mg PO DAILY [facility] Methylprednisolone Sodium Succinate (Solu-Medrol -) 30 mg IVPUSH BID [facility] Last Admin: 04/15/19 10:36 Dose: Not Given Metoprolol Succinate (Toprol Xl -) 25 mg PO DAILY [facility] Last Admin: 04/15/19 09:34 Dose: 25 mg Mirtazapine (Remeron -) 30 mg PO HS [facility] Last Admin: 04/14/19 21:56 Dose: 30 mg Pantoprazole Sodium (Protonix Iv) 40 mg IVPUSH BID [facility] Last Admin: 04/15/19 09:35 Dose: 40 mg Potassium Chloride (K-Dur -) 20 meq PO DAILY [facility] Last Admin: 04/15/19 09:34 Dose: 20 meq Sertraline HCl (Zoloft -) 50 mg PO AM [facility] Last Admin: 04/15/19 06:12 Dose: 50 mg Silver Sulfadiazine (Silvadene -) 1 applic TP BID [facility] Last Admin: 04/15/19 09:34 Dose: 1 applic Tiotropium [place] (Spiriva Respimat) 2 puff IH DAILY [facility] Last Admin: 04/15/19 09:34 Dose: 2 puff Zinc Oxide/Panthenol/Vitamin E (Balmex Cream -) 1 applic TP BID [facility] Last Admin: 04/15/19 09:34 Dose: 1 applic Zolpidem Tartrate (Ambien -) 5 mg PO HS [facility] Stop: 04/15/19 22:01 Last Admin: 04/14/19 21:56 Dose: 5 mg - Objective Vital Signs: Vital Signs Temperature 98.0 F 04/15/19 08:21 Pulse Rate 77 04/15/19 08:21 Respiratory Rate 18 04/15/19 08:21 Blood Pressure 140/74 04/15/19 08:21 O2 Sat by Pulse Oximetry (%) 97 04/14/19 21:00 Constitutional: Yes: Calm, Mild Distress Cardiovascular: Yes: S1, S2 Respiratory: Yes: Regular, On Nasal O2, Poor Air Entry, Rhonchi Gastrointestinal: Yes: Normal Bowel Sounds, Soft Musculoskeletal: Yes: WNL Extremities: Yes: WNL Neurological: Yes: Alert, Oriented Psychiatric: Yes: Alert, Oriented Labs: CBC, BMP 04/15/19 06:00 04/15/19 06:00 INR, PTT INR 1.03 (0.83-1.09) 04/06/19 19:45 Assessment/Plan Problem List - Problems (1) Pulmonary hypertension Code(s): I27.20 - PULMONARY HYPERTENSION, UNSPECIFIED (2) GERD (gastroesophageal reflux disease) Code(s): K21.9 - GASTRO-ESOPHAGEAL REFLUX DISEASE WITHOUT ESOPHAGITIS (3) Acute diastolic (congestive) heart failure Code(s): I50.31 - ACUTE DIASTOLIC (CONGESTIVE) HEART FAILURE (4) Acute exacerbation of chronic obstructive pulmonary disease Code(s): J44.1 - CHRONIC OBSTRUCTIVE PULMONARY DISEASE W (ACUTE) EXACERBATION (5) Acute hypoxemic respiratory failure Code(s): J96.01 - ACUTE RESPIRATORY FAILURE WITH HYPOXIA (6) Bipolar 1 disorder Code(s): F31.9 - BIPOLAR DISORDER, UNSPECIFIED (7) Bronchiectasis Code(s): J47.9 - BRONCHIECTASIS, UNCOMPLICATED (8) CHF (congestive heart failure), NYHA class II Code(s): I50.9 - HEART FAILURE, UNSPECIFIED (9) Chronic kidney disease (CKD) Code(s): N18.9 - CHRONIC KIDNEY DISEASE, UNSPECIFIED (10) Elevated troponin Code(s): R74.8 - ABNORMAL LEVELS OF OTHER SERUM ENZYMES (11) Emphysema of lung Code(s): J43.9 - EMPHYSEMA, UNSPECIFIED (12) Hypotension Code(s): I95.9 - HYPOTENSION, UNSPECIFIED (13) HTN (hypertension) Code(s): I10 - ESSENTIAL (PRIMARY) HYPERTENSION (14) Insomnia disorder Code(s): G47.00 - INSOMNIA, UNSPECIFIED plan sputum cx noted will change to levaquin rest as per pul awaiting psych to see the patient
[2019-04-15] MEDS ORDERED: PT OWN MED DRAWER 7, Y5N ONE (12:05)
--- NOTE | 2019-04-15 15:33 | PN ---
Progress Note, Physician - Current Medication List Current Medications: Active Medications Acetaminophen (Tylenol -) 650 mg PO Q4H PRN PRN Reason: PAIN LEVEL 1-5 Last Admin: 04/07/19 14:31 Dose: 650 mg Alprazolam (Xanax) 0.5 mg PO BID [facility] Last Admin: 04/15/19 09:33 Dose: 0.5 mg Ascorbic Acid (Vitamin C -) 500 mg PO BID [facility] Last Admin: 04/15/19 09:34 Dose: 500 mg Budesonide/Formoterol Fumarate (Symbicort 160/4.5mcg -) 2 puff IH BID [facility] Last Admin: 04/15/19 09:34 Dose: 2 puff Carbidopa/Levodopa (Sinemet 25/100 -) 1 each PO TID@0900,1200,1700 [facility] Last Admin: 04/15/19 13:09 Dose: 1 each Sodium Chloride (1/2 Normal Saline) 1,000 mls @ 70 mls/hr IV [facility]IR [facility] Last Admin: 04/08/19 15:01 Dose: 70 mls/hr Levofloxacin (Levaquin -) 750 mg PO DAILY@0600 [facility] Last Admin: 04/15/19 13:09 Dose: 750 mg Methylprednisolone Sodium Succinate (Solu-Medrol -) 30 mg IVPUSH BID [facility] Last Admin: 04/15/19 10:36 Dose: Not Given Metoprolol Succinate (Toprol Xl -) 25 mg PO DAILY [facility] Last Admin: 04/15/19 09:34 Dose: 25 mg Mirtazapine (Remeron -) 30 mg PO HS [facility] Last Admin: 04/14/19 21:56 Dose: 30 mg Pantoprazole Sodium (Protonix Iv) 40 mg IVPUSH BID [facility] Last Admin: 04/15/19 09:35 Dose: 40 mg Potassium Chloride (K-Dur -) 20 meq PO DAILY [facility] Last Admin: 04/15/19 09:34 Dose: 20 meq Sertraline HCl (Zoloft -) 50 mg PO AM [facility] Last Admin: 04/15/19 06:12 Dose: 50 mg Silver Sulfadiazine (Silvadene -) 1 applic TP BID [facility] Last Admin: 04/15/19 09:34 Dose: 1 applic Tiotropium [place] (Spiriva Respimat) 2 puff IH DAILY [facility] Last Admin: 04/15/19 09:34 Dose: 2 puff Zinc Oxide/Panthenol/Vitamin E (Balmex Cream -) 1 applic TP BID [facility] Last Admin: 04/15/19 09:34 Dose: 1 applic Zolpidem Tartrate (Ambien -) 5 mg PO HS [facility] Stop: 04/15/19 22:01 Last Admin: 04/14/19 21:56 Dose: 5 mg - Objective Vital Signs: Vital Signs Temperature 98.6 F 04/15/19 13:39 Pulse Rate 94 H 04/15/19 13:39 Respiratory Rate 18 04/15/19 13:39 Blood Pressure 151/80 04/15/19 13:39 O2 Sat by Pulse Oximetry (%) 97 04/14/19 21:00 Labs: CBC, BMP 04/15/19 06:00 04/15/19 06:00 INR, PTT INR 1.03 (0.83-1.09) 04/06/19 19:45 Problem List - Problems (1) Pulmonary hypertension Code(s): I27.20 - PULMONARY HYPERTENSION, UNSPECIFIED (2) GERD (gastroesophageal reflux disease) Code(s): K21.9 - GASTRO-ESOPHAGEAL REFLUX DISEASE WITHOUT ESOPHAGITIS (3) Acute diastolic (congestive) heart failure Code(s): I50.31 - ACUTE DIASTOLIC (CONGESTIVE) HEART FAILURE (4) Acute exacerbation of chronic obstructive pulmonary disease Code(s): J44.1 - CHRONIC OBSTRUCTIVE PULMONARY DISEASE W (ACUTE) EXACERBATION (5) Acute hypoxemic respiratory failure Code(s): J96.01 - ACUTE RESPIRATORY FAILURE WITH HYPOXIA (6) Bipolar 1 disorder Code(s): F31.9 - BIPOLAR DISORDER, UNSPECIFIED (7) Bronchiectasis Code(s): J47.9 - BRONCHIECTASIS, UNCOMPLICATED (8) CHF (congestive heart failure), NYHA class II Code(s): I50.9 - HEART FAILURE, UNSPECIFIED (9) Chronic kidney disease (CKD) Code(s): N18.9 - CHRONIC KIDNEY DISEASE, UNSPECIFIED (10) Elevated troponin Code(s): R74.8 - ABNORMAL LEVELS OF OTHER SERUM ENZYMES (11) Emphysema of lung Code(s): J43.9 - EMPHYSEMA, UNSPECIFIED (12) Hypotension Code(s): I95.9 - HYPOTENSION, UNSPECIFIED (13) HTN (hypertension) Code(s): I10 - ESSENTIAL (PRIMARY) HYPERTENSION (14) Insomnia disorder Code(s): G47.00 - INSOMNIA, UNSPECIFIED
--- NOTE | 2019-04-15 15:37 | CON.PSY ---
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 [place] on Zoloft, Remeron, xanax and ambien for DEpressuion. Patient reports feeling depressed but feels ok as weell. He looks more depressed due to Parkinsons face.. Flat affect. Symptoms: reports: Depressed Mood - Previous Psychiatric Treatment Outpatient: Less than 6 mos ago Inpatient: None - Previous Substance Abuse Treatment Outpatient: None Inpatient: None - Reason for Previous Treatment Reason for Previous Treatment: Major Depression - Current Medications Current Medications: Active Medications Acetaminophen (Tylenol -) 650 mg PO Q4H PRN PRN Reason: PAIN LEVEL 1-5 Last Admin: 04/07/19 14:31 Dose: 650 mg Alprazolam (Xanax) 0.5 mg PO BID [facility] Last Admin: 04/15/19 09:33 Dose: 0.5 mg Ascorbic Acid (Vitamin C -) 500 mg PO BID [facility] Last Admin: 04/15/19 09:34 Dose: 500 mg Budesonide/Formoterol Fumarate (Symbicort 160/4.5mcg -) 2 puff IH BID [facility] Last Admin: 04/15/19 09:34 Dose: 2 puff Carbidopa/Levodopa (Sinemet 25/100 -) 1 each PO TID@0900,1200,1700 [facility] Last Admin: 04/15/19 13:09 Dose: 1 each Sodium Chloride (1/2 Normal Saline) 1,000 mls @ 70 mls/hr IV ASDIR [facility] Last Admin: 04/08/19 15:01 Dose: 70 mls/hr Levofloxacin (Levaquin -) 750 mg PO DAILY@0600 [facility] Last Admin: 04/15/19 13:09 Dose: 750 mg Methylprednisolone Sodium Succinate (Solu-Medrol -) 30 mg IVPUSH BID [facility] Last Admin: 04/15/19 10:36 Dose: Not Given Metoprolol Succinate (Toprol Xl -) 25 mg PO DAILY [facility] Last Admin: 04/15/19 09:34 Dose: 25 mg Mirtazapine (Remeron -) 30 mg PO HS [facility] Last Admin: 04/14/19 21:56 Dose: 30 mg Pantoprazole Sodium (Protonix Iv) 40 mg IVPUSH BID [facility] Last Admin: 04/15/19 09:35 Dose: 40 mg Potassium Chloride (K-Dur -) 20 meq PO DAILY [facility] Last Admin: 04/15/19 09:34 Dose: 20 meq Sertraline HCl (Zoloft -) 50 mg PO AM [facility] Last Admin: 04/15/19 06:12 Dose: 50 mg Silver Sulfadiazine (Silvadene -) 1 applic TP BID [facility] Last Admin: 04/15/19 09:34 Dose: 1 applic Tiotropium [place] (Spiriva Respimat) 2 puff IH DAILY [facility] Last Admin: 04/15/19 09:34 Dose: 2 puff Zinc Oxide/Panthenol/Vitamin E (Balmex Cream -) 1 applic TP BID [facility] Last Admin: 04/15/19 09:34 Dose: 1 applic Zolpidem Tartrate (Ambien -) 5 mg PO HS [facility] Stop: 04/15/19 22:01 Last Admin: 04/14/19 21:56 Dose: 5 mg - Allergies Allergies: Allergies Allergy/AdvReac Type Severity Reaction Status Date / Time No Known Allergies Allergy Verified 04/06/19 19:02 - Current Living Status Usual Living Arrangement: With Spouse - Current Mental Status Evaluation Appearance: Well Groomed Attitude: Cooperative - Affect Affect: Constrictive Appropriateness: Appropriate to Content - Mood Mood: Depressed - Speech/Language Expressive: Coherent - Psychomotor Activity Psychomotor Activity: Slowed - Thought Process Thought Process: Intact - Thought Content Hallucinations: Absent Delusions: Absent - Self Perception Self Perception: No Impairment - Cognition Attention: Alert Memory, Immediate Recall: Intact Memory, Short Term: 2/3 Memory, Remote with Promptin/3 - Concentration Serial Sevens Intact: No Simple Calculations Intact: Yes - Abstraction Proverb Interpretation: Intact Judgement: Intact - Insight Insight: Intact - Impulse Control Impulse Control: Good Control - Suicidal Ideation Suicidal Ideation: No - Homicidal Ideation Homicidal Ideation: No Assessment/Plan 1) On [facility] pharmacy for Major DFepression but will increase Zoloft to 75 mg p[o od./
[2019-04-15] MEDS ORDERED: FUROSEMIDE 40 MG/4 ML INJECTABLE VIAL IVPUSH ONE (19:25)
[2019-04-15] MEDS ORDERED: ALBUTEROL SO4 2.5/IPRATROPIUM 0.5 INH SOL 3 ML VIAL.NEB. NEB ONE (19:48)
[2019-04-15] MEDS: ALBUTEROL SO4 2.5/IPRATROPIUM 0.5 INH SOL 3 ML VIAL.NEB. NEB PRN (20:10)
[2019-04-15] MEDS ORDERED: ALBUTEROL SO4 2.5/IPRATROPIUM 0.5 INH SOL 3 ML VIAL.NEB. NEB PRN (20:30)
[2019-04-15] MEDS: ZOLPIDEM TARTRATE 5 MG TABLET PO SCH (21:30)
[2019-04-15 22:02] LABS: HEMATOCRIT 42.2 % (35.4-49); HEMOGLOBIN 14.3 GM/dL (11.7-16.9); MCH 32.2 pg (25.7-33.7); MCHC 33.8 g/dl (32.0-35.9); MEAN CELL VOLUME 95.3 fl (80-96); MEAN PLT VOLUME 8.5 fl (7.5-11.1); PLATELET COUNT 223 K/MM3 (134-434); RBC 4.43 M/mm3 (4.00-5.60); RDW 16.3 % (11.9-15.9); WHITE BLOOD COUNT 21.2 K/mm3 (4.0-10.0)
[2019-04-15 22:25] LABS: ALBUMIN 2.8 g/dl (3.4-5.0); BILIRUBIN,TOTAL 0.6 mg/dL (0.2-1); BLOOD UREA NITROGEN 54.2 mg/dL (7-18); POTASSIUM 4.8 mmol/L (3.5-5.1); TOT PROT 5.6 g/dl (6.4-8.2)
[2019-04-16] MEDS ORDERED: FUROSEMIDE 20 MG TABLET (FP) PO ONE (06:00)
[2019-04-16] MEDS: ALBUTEROL SO4 2.5/IPRATROPIUM 0.5 INH SOL 3 ML VIAL.NEB. NEB PRN (08:12)
[2019-04-16] MEDS ORDERED: SERTRALINE HCL 50 MG TABLET (FP) PO SCH (10:00)
[2019-04-16] MEDS: SERTRALINE HCL 50 MG, SERTRALINE HCL 25 MG PO SCH (10:19)
[2019-04-16] MEDS: CARBIDOPA/LEVODOPA 25/100 TABLET (FP) PO SCH ×3 (10:19→17:20)
[2019-04-16] MEDS: BUDESONIDE/FORMETEROL FUMARATE 160/4.5 mcg INHALER IH SCH ×2 (10:21→22:11)
[2019-04-16] MEDS: TIOTROPIUM BROMIDE 2.5 MCG (SPIRIVA) RESPIMAT INHALER IH SCH (10:22)
[2019-04-16] MEDS: methylPREDNISolone NA SUCC 40 MG/1 ML VIAL IVPUSH SCH ×2 (10:28→22:13)
[2019-04-16] MEDS: PANTOPRAZOLE SODIUM 40 MG VIAL IVPUSH SCH ×2 (10:34→22:13)
[2019-04-16] MEDS: ASCORBIC ACID 500 MG TABLET (FP) PO SCH ×2 (10:35→22:15)
--- NOTE | 2019-04-16 11:36 | PN ---
Progress Note, Physician Chief Complaint: SOB last night Received dose IV lasix CXR clear BNP is down - Current Medication List Current Medications: Active Medications Acetaminophen (Tylenol -) 650 mg PO Q4H PRN PRN Reason: PAIN LEVEL 1-5 Last Admin: 04/07/19 14:31 Dose: 650 mg Albuterol/Ipratropium (Duoneb -) 1 amp NEB Q4H PRN PRN Reason: SHORT OF BREATH/WHEEZING Last Admin: 04/16/19 08:12 Dose: 1 amp Ascorbic Acid (Vitamin C -) 500 mg PO BID [facility] Last Admin: 04/15/19 22:07 Dose: 500 mg Budesonide/Formoterol Fumarate (Symbicort 160/4.5mcg -) 2 puff IH BID [facility] Last Admin: 04/15/19 22:07 Dose: 2 puff Carbidopa/Levodopa (Sinemet 25/100 -) 1 each PO TID@0900,1200,1700 [facility] Last Admin: 04/15/19 17:20 Dose: 1 each Sodium Chloride (1/2 Normal Saline) 1,000 mls @ 70 mls/hr IV ASDIR [facility] Last Admin: 04/08/19 15:01 Dose: 70 mls/hr Levofloxacin (Levaquin -) 750 mg PO DAILY@0600 [facility] Last Admin: 04/16/19 06:26 Dose: Not Given Methylprednisolone Sodium Succinate (Solu-Medrol -) 30 mg IVPUSH BID [facility] Last Admin: 04/15/19 22:05 Dose: 30 mg Metoprolol Succinate (Toprol Xl -) 25 mg PO DAILY [facility] Last Admin: 04/15/19 09:34 Dose: 25 mg Pantoprazole Sodium (Protonix Iv) 40 mg IVPUSH BID [facility] Last Admin: 04/15/19 22:06 Dose: 40 mg Potassium Chloride (K-Dur -) 20 meq PO DAILY [facility] Last Admin: 04/15/19 09:34 Dose: 20 meq Sertraline HCl 50 mg/ (Sertraline HCl 25 mg) 75 mg PO DAILY [facility] Silver Sulfadiazine (Silvadene -) 1 applic TP BID [facility] Last Admin: 04/15/19 22:07 Dose: 1 applic Tiotropium [place] (Spiriva Respimat) 2 puff IH DAILY [facility] Last Admin: 04/15/19 09:34 Dose: 2 puff Zinc Oxide/Panthenol/Vitamin E (Balmex Cream -) 1 applic TP BID [facility] Last Admin: 04/15/19 22:08 Dose: 1 applic - Objective Vital Signs: Vital Signs Temperature 97.7 F 04/16/19 06:27 Pulse Rate 83 04/16/19 06:27 Respiratory Rate 20 04/16/19 06:27 Blood Pressure 142/88 04/16/19 06:27 O2 Sat by Pulse Oximetry (%) 98 04/15/19 20:48 Constitutional: Yes: No Distress Cardiovascular: Yes: Regular Rate and Rhythm Respiratory: Yes: Rhonchi Gastrointestinal: Yes: Soft Edema: No Neurological: Yes: Alert, Oriented Labs: CBC, BMP 04/15/19 20:20 04/15/19 20:20 INR, PTT INR 1.03 (0.83-1.09) 04/06/19 19:45 Laboratory Tests 04/15/19 04/15/19 20:20 20:20 WBC 21.2 H Hgb 14.3 Plt Count 223 Sodium 135 L Potassium 4.8 BUN 54.2 H Creatinine 1.0 - ....Imaging EKG: Image Reviewed Assessment/Plan Assessment/Plan echo 02/2019 tds, nl LV function, RV not well visualized, severe pujlm HTN >60 mmHg RVSP stress echo 04/07: apical ischemia a.e. COPD, acute HFpEF: more SOB last night - dose IV Lasix given last night, CXR clear; BNP down. -Hold further IV Lasix for now as BUN up - troponins remained flat when re-cycled after CP episode - steroids and BDs as doing (pulm recs) elevated trop: - borderline trop, flat trend, not c/w acs - EKG no ischemic changes history of stress induced CM: with mild acute on chronic diastolic CHF exacerbation in setting of increased IVF - nl EF on echo 02/2019 - cont lisinopril, bystolic DORIS on CKD: - baseline creat 1.4-1.9 - renal fxn improved here PSVT/PAT: - brief runs, off tele now - cont bb CAD: - +apical ischemia 03/2018 managed medically - no angina - cont aspirin, statin, bystolic HTN: - stable, cont current meds pulm HTN: - 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
--- NOTE | 2019-04-16 12:56 | PN ---
Progress Note, Physician History of Present Illness: PULMONARY ALERT,C/O SOB,CONGESTION - Current Medication List Current Medications: Active Medications Acetaminophen (Tylenol -) 650 mg PO Q4H PRN PRN Reason: PAIN LEVEL 1-5 Last Admin: 04/07/19 14:31 Dose: 650 mg Albuterol/Ipratropium (Duoneb -) 1 amp NEB Q4H PRN PRN Reason: SHORT OF BREATH/WHEEZING Last Admin: 04/16/19 08:12 Dose: 1 amp Ascorbic Acid (Vitamin C -) 500 mg PO BID [facility] Last Admin: 04/15/19 22:07 Dose: 500 mg Budesonide/Formoterol Fumarate (Symbicort 160/4.5mcg -) 2 puff IH BID [facility] Last Admin: 04/15/19 22:07 Dose: 2 puff Carbidopa/Levodopa (Sinemet 25/100 -) 1 each PO TID@0900,1200,1700 [facility] Last Admin: 04/15/19 17:20 Dose: 1 each Sodium Chloride (1/2 Normal Saline) 1,000 mls @ 70 mls/hr IV ASDIR [facility] Last Admin: 04/08/19 15:01 Dose: 70 mls/hr Levofloxacin (Levaquin -) 750 mg PO DAILY@0600 [facility] Last Admin: 04/16/19 06:26 Dose: Not Given Methylprednisolone Sodium Succinate (Solu-Medrol -) 30 mg IVPUSH BID [facility] Last Admin: 04/15/19 22:05 Dose: 30 mg Metoprolol Succinate (Toprol Xl -) 25 mg PO DAILY [facility] Last Admin: 04/15/19 09:34 Dose: 25 mg Pantoprazole Sodium (Protonix Iv) 40 mg IVPUSH BID [facility] Last Admin: 04/15/19 22:06 Dose: 40 mg Potassium Chloride (K-Dur -) 20 meq PO DAILY [facility] Last Admin: 04/15/19 09:34 Dose: 20 meq Sertraline HCl 50 mg/ (Sertraline HCl 25 mg) 75 mg PO DAILY [facility] Silver Sulfadiazine (Silvadene -) 1 applic TP BID [facility] Last Admin: 04/15/19 22:07 Dose: 1 applic Tiotropium [place] (Spiriva Respimat) 2 puff IH DAILY [facility] Last Admin: 04/15/19 09:34 Dose: 2 puff Zinc Oxide/Panthenol/Vitamin E (Balmex Cream -) 1 applic TP BID [facility] Last Admin: 04/15/19 22:08 Dose: 1 applic - Objective Vital Signs: Vital Signs Temperature 97.7 F 04/16/19 06:27 Pulse Rate 83 04/16/19 06:27 Respiratory Rate 20 04/16/19 06:27 Blood Pressure 142/88 04/16/19 06:27 O2 Sat by Pulse Oximetry (%) 98 04/15/19 20:48 Constitutional: Yes: Well Nourished, Calm Eyes: Yes: WNL HENT: Yes: WNL Neck: Yes: WNL Cardiovascular: Yes: Regular Rate and Rhythm, S1, S2 Respiratory: Yes: Rhonchi (BILATERAL SCATTERED RHONCHI) Gastrointestinal: Yes: Normal Bowel Sounds, Soft Extremities: Yes: WNL Edema: No Labs: Problem List - Problems (1) COPD exacerbation Code(s): J44.1 - CHRONIC OBSTRUCTIVE PULMONARY DISEASE W (ACUTE) EXACERBATION (2) GERD (gastroesophageal reflux disease) Code(s): K21.9 - GASTRO-ESOPHAGEAL REFLUX DISEASE WITHOUT ESOPHAGITIS (3) Bronchiectasis Code(s): J47.9 - BRONCHIECTASIS, UNCOMPLICATED (4) Pulmonary HTN Code(s): I27.20 - PULMONARY HYPERTENSION, UNSPECIFIED Assessment/Plan Problem List - Problems (1) COPD exacerbation Code(s): J44.1 - CHRONIC OBSTRUCTIVE PULMONARY DISEASE W (ACUTE) EXACERBATION A/P Acute COPD Exacerbation Chronic Hypoxic Respiratory Failure Severe Pulmonary HTN CAD HTN - continue medrol - inhaled bronchodilators standing and PRN - symbicort - O2 to keep SpO2 >90% - DVT prophylaxis - Champ MOSLEY
[2019-04-16] MEDS: SILVER SULFADIAZINE 1% TOP CREAM 50 GM JAR TP SCH ×2 (13:20→22:11)
[2019-04-16] MEDS: ZINC OXIDE/PANTHENOL/VITAMIN E 56 GM TUBE TP SCH ×2 (13:22→22:11)
--- NOTE | 2019-04-16 14:14 | PN ---
Progress Note, Physician History of Present Illness: stable - Current Medication List Current Medications: Active Medications Acetaminophen (Tylenol -) 650 mg PO Q4H PRN PRN Reason: PAIN LEVEL 1-5 Last Admin: 04/07/19 14:31 Dose: 650 mg Albuterol/Ipratropium (Duoneb -) 1 amp NEB Q4H PRN PRN Reason: SHORT OF BREATH/WHEEZING Last Admin: 04/16/19 08:12 Dose: 1 amp Ascorbic Acid (Vitamin C -) 500 mg PO BID [facility] Last Admin: 04/15/19 22:07 Dose: 500 mg Budesonide/Formoterol Fumarate (Symbicort 160/4.5mcg -) 2 puff IH BID [facility] Last Admin: 04/15/19 22:07 Dose: 2 puff Carbidopa/Levodopa (Sinemet 25/100 -) 1 each PO TID@0900,1200,1700 [facility] Last Admin: 04/15/19 17:20 Dose: 1 each Sodium Chloride (1/2 Normal Saline) 1,000 mls @ 70 mls/hr IV ASDIR [facility] Last Admin: 04/08/19 15:01 Dose: 70 mls/hr Levofloxacin (Levaquin -) 750 mg PO DAILY@0600 [facility] Last Admin: 04/16/19 06:26 Dose: Not Given Methylprednisolone Sodium Succinate (Solu-Medrol -) 30 mg IVPUSH BID [facility] Last Admin: 04/15/19 22:05 Dose: 30 mg Metoprolol Succinate (Toprol Xl -) 25 mg PO DAILY [facility] Last Admin: 04/15/19 09:34 Dose: 25 mg Pantoprazole Sodium (Protonix Iv) 40 mg IVPUSH BID [facility] Last Admin: 04/15/19 22:06 Dose: 40 mg Potassium Chloride (K-Dur -) 20 meq PO DAILY [facility] Last Admin: 04/15/19 09:34 Dose: 20 meq Sertraline HCl 50 mg/ (Sertraline HCl 25 mg) 75 mg PO DAILY [facility] Silver Sulfadiazine (Silvadene -) 1 applic TP BID [facility] Last Admin: 04/15/19 22:07 Dose: 1 applic Tiotropium [place] (Spiriva Respimat) 2 puff IH DAILY [facility] Last Admin: 04/15/19 09:34 Dose: 2 puff Zinc Oxide/Panthenol/Vitamin E (Balmex Cream -) 1 applic TP BID [facility] Last Admin: 04/15/19 22:08 Dose: 1 applic - Objective Vital Signs: Vital Signs Temperature 97.7 F 04/16/19 06:27 Pulse Rate 83 04/16/19 06:27 Respiratory Rate 20 04/16/19 06:27 Blood Pressure 142/88 04/16/19 06:27 O2 Sat by Pulse Oximetry (%) 98 04/15/19 20:48 Constitutional: Yes: No Distress, Calm Cardiovascular: Yes: S1, S2 Respiratory: Yes: On Nasal O2, Poor Air Entry, Rhonchi Gastrointestinal: Yes: Normal Bowel Sounds, Soft Musculoskeletal: Yes: WNL Extremities: Yes: WNL Neurological: Yes: Alert, Oriented Psychiatric: Yes: Alert, Oriented Labs: CBC, BMP 04/15/19 20:20 04/15/19 20:20 INR, PTT INR 1.03 (0.83-1.09) 04/06/19 19:45 Assessment/Plan Problem List - Problems (1) Pulmonary hypertension Code(s): I27.20 - PULMONARY HYPERTENSION, UNSPECIFIED (2) GERD (gastroesophageal reflux disease) Code(s): K21.9 - GASTRO-ESOPHAGEAL REFLUX DISEASE WITHOUT ESOPHAGITIS (3) Acute diastolic (congestive) heart failure Code(s): I50.31 - ACUTE DIASTOLIC (CONGESTIVE) HEART FAILURE (4) Acute exacerbation of chronic obstructive pulmonary disease Code(s): J44.1 - CHRONIC OBSTRUCTIVE PULMONARY DISEASE W (ACUTE) EXACERBATION (5) Acute hypoxemic respiratory failure Code(s): J96.01 - ACUTE RESPIRATORY FAILURE WITH HYPOXIA (6) Bipolar 1 disorder Code(s): F31.9 - BIPOLAR DISORDER, UNSPECIFIED (7) Bronchiectasis Code(s): J47.9 - BRONCHIECTASIS, UNCOMPLICATED (8) CHF (congestive heart failure), NYHA class II Code(s): I50.9 - HEART FAILURE, UNSPECIFIED (9) Chronic kidney disease (CKD) Code(s): N18.9 - CHRONIC KIDNEY DISEASE, UNSPECIFIED (10) Elevated troponin Code(s): R74.8 - ABNORMAL LEVELS OF OTHER SERUM ENZYMES (11) Emphysema of lung Code(s): J43.9 - EMPHYSEMA, UNSPECIFIED (12) Hypotension Code(s): I95.9 - HYPOTENSION, UNSPECIFIED (13) HTN (hypertension) Code(s): I10 - ESSENTIAL (PRIMARY) HYPERTENSION (14) Insomnia disorder Code(s): G47.00 - INSOMNIA, UNSPECIFIED plan sputum cx noted i am going to start patient on bactrim will stop potassium incentive camacho rest as per the team
[2019-04-16] MEDS ORDERED: SULFAMETHOXAZOLE 80 MG/TRIMETHOPRIM 16 MG/ML VIAL IVPB SCH (14:30)
[2019-04-16] MEDS ORDERED: SULFAMETHOXAZOLE/TRIMETHOPRIM 320 MG in DEXTROSE 5%-WATER - 250 ML IVPB SCH (14:45)
[2019-04-16] MEDS ORDERED: SERTRALINE HCL 50 MG TABLET (FP) ONE (15:05)
[2019-04-16] MEDS ORDERED: SERTRALINE HCL 25 MG TABLET (FP) ONE (15:05)
[2019-04-16] MEDS: metoPROLOL SUCCINATE 25 MG TAB.SR.24H (FP) PO SCH (15:19)
--- NOTE | 2019-04-16 15:19 | PN ---
Progress Note, Physician Chief Complaint: Pt had a bout of SOB last night Pt was given lasix 40 IV yesterday night Pt is realtively better No Fever Still SOB - Current Medication List Current Medications: Active Medications Acetaminophen (Tylenol -) 650 mg PO Q4H PRN PRN Reason: PAIN LEVEL 1-5 Last Admin: 04/07/19 14:31 Dose: 650 mg Albuterol/Ipratropium (Duoneb -) 1 amp NEB Q4H PRN PRN Reason: SHORT OF BREATH/WHEEZING Last Admin: 04/16/19 08:12 Dose: 1 amp Ascorbic Acid (Vitamin C -) 500 mg PO BID [facility] Last Admin: 04/15/19 22:07 Dose: 500 mg Budesonide/Formoterol Fumarate (Symbicort 160/4.5mcg -) 2 puff IH BID [facility] Last Admin: 04/15/19 22:07 Dose: 2 puff Carbidopa/Levodopa (Sinemet 25/100 -) 1 each PO TID@0900,1200,1700 [facility] Last Admin: 04/15/19 17:20 Dose: 1 each Sodium Chloride (1/2 Normal Saline) 1,000 mls @ 70 mls/hr IV ASDIR [facility] Last Admin: 04/08/19 15:01 Dose: 70 mls/hr Trimethoprim/Sulfamethoxazole (320 mg/ Dextrose) 520 mls @ 346.667 mls/hr IVPB Q8H-IV [facility] Methylprednisolone Sodium Succinate (Solu-Medrol -) 30 mg IVPUSH BID [facility] Last Admin: 04/15/19 22:05 Dose: 30 mg Metoprolol Succinate (Toprol Xl -) 25 mg PO DAILY [facility] Last Admin: 04/15/19 09:34 Dose: 25 mg Pantoprazole Sodium (Protonix Iv) 40 mg IVPUSH BID [facility] Last Admin: 04/15/19 22:06 Dose: 40 mg Sertraline HCl 50 mg/ (Sertraline HCl 25 mg) 75 mg PO DAILY [facility] Silver Sulfadiazine (Silvadene -) 1 applic TP BID [facility] Last Admin: 04/15/19 22:07 Dose: 1 applic Tiotropium [place] (Spiriva Respimat) 2 puff IH DAILY [facility] Last Admin: 04/15/19 09:34 Dose: 2 puff Zinc Oxide/Panthenol/Vitamin E (Balmex Cream -) 1 applic TP BID [facility] Last Admin: 04/15/19 22:08 Dose: 1 applic - Objective Vital Signs: Vital Signs Temperature 98 F 04/16/19 14:24 Pulse Rate 108 H 04/16/19 14:24 Respiratory Rate 22 H 04/16/19 14:24 Blood Pressure 146/87 04/16/19 14:24 O2 Sat by Pulse Oximetry (%) 98 04/15/19 20:48 Constitutional: Yes: Anxious Eyes: Yes: Conjunctiva Clear, EOM Intact HENT: Yes: Atraumatic, Normocephalic Neck: Yes: Supple, Trachea Midline Cardiovascular: Yes: Regular Rate and Rhythm, S1, S2 Respiratory: Yes: Regular, CTA Bilaterally Gastrointestinal: Yes: Normal Bowel Sounds, Soft Labs: CBC, BMP 04/15/19 20:20 04/15/19 20:20 INR, PTT INR 1.03 (0.83-1.09) 04/06/19 19:45 Problem List - Problems (1) Pulmonary hypertension Code(s): I27.20 - PULMONARY HYPERTENSION, UNSPECIFIED (2) GERD (gastroesophageal reflux disease) Code(s): K21.9 - GASTRO-ESOPHAGEAL REFLUX DISEASE WITHOUT ESOPHAGITIS (3) Acute diastolic (congestive) heart failure Code(s): I50.31 - ACUTE DIASTOLIC (CONGESTIVE) HEART FAILURE (4) Acute exacerbation of chronic obstructive pulmonary disease Code(s): J44.1 - CHRONIC OBSTRUCTIVE PULMONARY DISEASE W (ACUTE) EXACERBATION (5) Acute hypoxemic respiratory failure Code(s): J96.01 - ACUTE RESPIRATORY FAILURE WITH HYPOXIA (6) Bipolar 1 disorder Code(s): F31.9 - BIPOLAR DISORDER, UNSPECIFIED (7) Bronchiectasis Code(s): J47.9 - BRONCHIECTASIS, UNCOMPLICATED (8) CHF (congestive heart failure), NYHA class II Code(s): I50.9 - HEART FAILURE, UNSPECIFIED (9) Chronic kidney disease (CKD) Code(s): N18.9 - CHRONIC KIDNEY DISEASE, UNSPECIFIED (10) Elevated troponin Code(s): R74.8 - ABNORMAL LEVELS OF OTHER SERUM ENZYMES (11) Emphysema of lung Code(s): J43.9 - EMPHYSEMA, UNSPECIFIED (12) Hypotension Code(s): I95.9 - HYPOTENSION, UNSPECIFIED (13) HTN (hypertension) Code(s): I10 - ESSENTIAL (PRIMARY) HYPERTENSION (14) Insomnia disorder Code(s): G47.00 - INSOMNIA, UNSPECIFIED Assessment/Plan (1) Pulmonary hypertension Code(s): I27.20 - PULMONARY HYPERTENSION, UNSPECIFIED (2) GERD (gastroesophageal reflux disease) Code(s): K21.9 - GASTRO-ESOPHAGEAL REFLUX DISEASE WITHOUT ESOPHAGITIS (3) Acute diastolic (congestive) heart failure Code(s): I50.31 - ACUTE DIASTOLIC (CONGESTIVE) HEART FAILURE (4) Acute exacerbation of chronic obstructive pulmonary disease Code(s): J44.1 - CHRONIC OBSTRUCTIVE PULMONARY DISEASE W (ACUTE) EXACERBATION (5) Acute hypoxemic respiratory failure Code(s): J96.01 - ACUTE RESPIRATORY FAILURE WITH HYPOXIA (6) Bipolar 1 disorder Code(s): F31.9 - BIPOLAR DISORDER, UNSPECIFIED (7) Bronchiectasis Code(s): J47.9 - BRONCHIECTASIS, UNCOMPLICATED (8) CHF (congestive heart failure), NYHA class II Code(s): I50.9 - HEART FAILURE, UNSPECIFIED (9) Chronic kidney disease (CKD) Code(s): N18.9 - CHRONIC KIDNEY DISEASE, UNSPECIFIED (10) Elevated troponin Code(s): R74.8 - ABNORMAL LEVELS OF OTHER SERUM ENZYMES (11) Emphysema of lung Code(s): J43.9 - EMPHYSEMA, UNSPECIFIED (12) Hypotension Code(s): I95.9 - HYPOTENSION, UNSPECIFIED (13) HTN (hypertension) Code(s): I10 - ESSENTIAL (PRIMARY) HYPERTENSION (14) Insomnia disorder Code(s): G47.00 - INSOMNIA, UNSPECIFIED Pt was seeby psych and spoke with Dr Cabezas Pt is very depressed Pt WBC creeping up discussed with ID
[2019-04-16] MEDS: SULFAMETHOXAZOLE/TRIMETHOPRIM 320 MG in DEXTROSE 5%-WATER - 500 ML IVPB SCH (17:26)
[2019-04-16 17:33] LABS: BASO % 0.2 % (0-2.0); EOS % 0.1 % (0-4.5); HEMATOCRIT 46.4 % (35.4-49); HEMOGLOBIN 15.6 GM/dL (11.7-16.9); LYMPH % 3.5 % (8-40); MCH 31.9 pg (25.7-33.7); MCHC 33.6 g/dl (32.0-35.9); MEAN CELL VOLUME 94.9 fl (80-96); MEAN PLT VOLUME 8.8 fl (7.5-11.1); MONO % 2.9 % (3.8-10.2); NEUT % 93.3 % (42.8-82.8); PLATELET COUNT 216 K/MM3 (134-434); RBC 4.89 M/mm3 (4.00-5.60); RDW 16.1 % (11.9-15.9); WHITE BLOOD COUNT 21.4 K/mm3 (4.0-10.0)
[2019-04-16 18:03] LABS: BLOOD UREA NITROGEN 53.6 mg/dL (7-18); CALCIUM 9.2 mg/dL (8.5-10.1); CREATININE 1.1 mg/dL (0.55-1.3); POTASSIUM 3.9 mmol/L (3.5-5.1)
[2019-04-16 19:43] LABS: PLATELET ESTIMATE ADEQUATE
[2019-04-16] MEDS: ACETAMINOPHEN 325 MG TABLET (FP) PO PRN (22:14)
[2019-04-17] MEDS: PANTOPRAZOLE SODIUM 40 MG VIAL IVPUSH SCH ×3 (00:35→21:54)
[2019-04-17] MEDS: methylPREDNISolone NA SUCC 40 MG/1 ML VIAL IVPUSH SCH ×3 (00:35→21:54)
[2019-04-17] MEDS: SULFAMETHOXAZOLE/TRIMETHOPRIM 320 MG in DEXTROSE 5%-WATER - 500 ML IVPB SCH ×3 (02:07→17:44)
[2019-04-17] MEDS: MELATONIN 5 MG TABLETS PO PRN (04:42)
[2019-04-17 08:01] LABS: BASO % 0.3 % (0-2.0); HEMATOCRIT 44.3 % (35.4-49); LYMPH % 2.2 % (8-40); MCHC 33.9 g/dl (32.0-35.9); MEAN CELL VOLUME 94.4 fl (80-96); MEAN PLT VOLUME 8.5 fl (7.5-11.1); MONO % 1.3 % (3.8-10.2); NEUT % 96.2 % (42.8-82.8); PLATELET COUNT 232 K/MM3 (134-434); RDW 15.9 % (11.9-15.9); WHITE BLOOD COUNT 23.8 K/mm3 (4.0-10.0)
[2019-04-17] MEDS: ALBUTEROL SO4 2.5/IPRATROPIUM 0.5 INH SOL 3 ML VIAL.NEB. NEB PRN (08:15)
[2019-04-17 08:20] LABS: BLOOD UREA NITROGEN 55.5 mg/dL (7-18); CREATININE 1.2 mg/dL (0.55-1.3); POTASSIUM 4.5 mmol/L (3.5-5.1)
[2019-04-17] MEDS ORDERED: SERTRALINE HCL 50 MG TABLET (FP) ONE (08:49)
[2019-04-17] MEDS ORDERED: SERTRALINE HCL 25 MG TABLET (FP) ONE (08:49)
[2019-04-17] MEDS: metoPROLOL SUCCINATE 25 MG TAB.SR.24H (FP) PO SCH (09:29)
[2019-04-17] MEDS: SERTRALINE HCL 50 MG, SERTRALINE HCL 25 MG PO SCH (09:29)
[2019-04-17] MEDS: ASCORBIC ACID 500 MG TABLET (FP) PO SCH ×2 (09:29→21:55)
[2019-04-17] MEDS: CARBIDOPA/LEVODOPA 25/100 TABLET (FP) PO SCH ×3 (09:29→17:43)
[2019-04-17] MEDS: BUDESONIDE/FORMETEROL FUMARATE 160/4.5 mcg INHALER IH SCH ×2 (10:23→21:54)
[2019-04-17] MEDS: TIOTROPIUM BROMIDE 2.5 MCG (SPIRIVA) RESPIMAT INHALER IH SCH (10:25)
[2019-04-17] MEDS: ZINC OXIDE/PANTHENOL/VITAMIN E 56 GM TUBE TP SCH ×2 (10:26→21:54)
[2019-04-17] MEDS: SILVER SULFADIAZINE 1% TOP CREAM 50 GM JAR TP SCH ×2 (10:26→21:54)
--- NOTE | 2019-04-17 10:53 | PN ---
Progress Note, Physician History of Present Illness: stable feeling much better - Current Medication List Current Medications: Active Medications Acetaminophen (Tylenol -) 650 mg PO Q4H PRN PRN Reason: PAIN LEVEL 1-5 Last Admin: 04/16/19 22:14 Dose: 650 mg Albuterol/Ipratropium (Duoneb -) 1 amp NEB Q4H PRN PRN Reason: SHORT OF BREATH/WHEEZING Last Admin: 04/17/19 08:15 Dose: 1 amp Ascorbic Acid (Vitamin C -) 500 mg PO BID [facility] Last Admin: 04/17/19 09:29 Dose: 500 mg Budesonide/Formoterol Fumarate (Symbicort 160/4.5mcg -) 2 puff IH BID [facility] Last Admin: 04/17/19 10:23 Dose: 2 puff Carbidopa/Levodopa (Sinemet 25/100 -) 1 each PO TID@0900,1200,1700 [facility] Last Admin: 04/17/19 09:29 Dose: 1 each Sodium Chloride (1/2 Normal Saline) 1,000 mls @ 70 mls/hr IV ASDIR [facility] Last Admin: 04/08/19 15:01 Dose: 70 mls/hr Trimethoprim/Sulfamethoxazole (320 mg/ Dextrose) 520 mls @ 346.667 mls/hr IVPB Q8H-IV [facility] Last Admin: 04/17/19 02:07 Dose: 346.667 mls/hr Melatonin (Melatonin) 5 mg PO HS PRN PRN Reason: INSOMNIA Last Admin: 04/17/19 04:42 Dose: 5 mg Methylprednisolone Sodium Succinate (Solu-Medrol -) 30 mg IVPUSH BID [facility] Last Admin: 04/17/19 09:35 Dose: 30 mg Metoprolol Succinate (Toprol Xl -) 25 mg PO DAILY [facility] Last Admin: 04/17/19 09:29 Dose: 25 mg Pantoprazole Sodium (Protonix Iv) 40 mg IVPUSH BID [facility] Last Admin: 04/17/19 09:29 Dose: 40 mg Sertraline HCl 50 mg/ (Sertraline HCl 25 mg) 75 mg PO DAILY [facility] Last Admin: 04/17/19 09:29 Dose: 75 mg Silver Sulfadiazine (Silvadene -) 1 applic TP BID [facility] Last Admin: 04/17/19 10:26 Dose: 1 applic Tiotropium [place] (Spiriva Respimat) 2 puff IH DAILY [facility] Last Admin: 04/17/19 10:25 Dose: 2 puff Zinc Oxide/Panthenol/Vitamin E (Balmex Cream -) 1 applic TP BID [facility] Last Admin: 04/17/19 10:26 Dose: 1 applic - Objective Vital Signs: Vital Signs Temperature 98.3 F 04/17/19 06:00 Pulse Rate 83 04/17/19 06:00 Respiratory Rate 18 04/17/19 06:00 Blood Pressure 150/89 04/17/19 06:00 O2 Sat by Pulse Oximetry (%) 97 04/16/19 21:00 Constitutional: Yes: No Distress, Calm Cardiovascular: Yes: S1, S2 Respiratory: Yes: Regular, Rhonchi Gastrointestinal: Yes: Normal Bowel Sounds Musculoskeletal: Yes: WNL Extremities: Yes: WNL Neurological: Yes: Alert, Oriented Psychiatric: Yes: Alert, Oriented Labs: CBC, BMP 04/17/19 07:30 04/17/19 07:30 INR, PTT INR 1.03 (0.83-1.09) 04/06/19 19:45 Assessment/Plan Problem List - Problems (1) Pulmonary hypertension Code(s): I27.20 - PULMONARY HYPERTENSION, UNSPECIFIED (2) GERD (gastroesophageal reflux disease) Code(s): K21.9 - GASTRO-ESOPHAGEAL REFLUX DISEASE WITHOUT ESOPHAGITIS (3) Acute diastolic (congestive) heart failure Code(s): I50.31 - ACUTE DIASTOLIC (CONGESTIVE) HEART FAILURE (4) Acute exacerbation of chronic obstructive pulmonary disease Code(s): J44.1 - CHRONIC OBSTRUCTIVE PULMONARY DISEASE W (ACUTE) EXACERBATION (5) Acute hypoxemic respiratory failure Code(s): J96.01 - ACUTE RESPIRATORY FAILURE WITH HYPOXIA (6) Bipolar 1 disorder Code(s): F31.9 - BIPOLAR DISORDER, UNSPECIFIED (7) Bronchiectasis Code(s): J47.9 - BRONCHIECTASIS, UNCOMPLICATED (8) CHF (congestive heart failure), NYHA class II Code(s): I50.9 - HEART FAILURE, UNSPECIFIED (9) Chronic kidney disease (CKD) Code(s): N18.9 - CHRONIC KIDNEY DISEASE, UNSPECIFIED (10) Elevated troponin Code(s): R74.8 - ABNORMAL LEVELS OF OTHER SERUM ENZYMES (11) Emphysema of lung Code(s): J43.9 - EMPHYSEMA, UNSPECIFIED (12) Hypotension Code(s): I95.9 - HYPOTENSION, UNSPECIFIED (13) HTN (hypertension) Code(s): I10 - ESSENTIAL (PRIMARY) HYPERTENSION (14) Insomnia disorder Code(s): G47.00 - INSOMNIA, UNSPECIFIED plan sputum cx noted bactrim incentive camacho rest as per the team
--- NOTE | 2019-04-17 10:59 | PN ---
Progress Note (short form) - Note Progress Note: States breathing feels a little better today. No acute events overnight. Intake & Output 04/14/19 04/15/19 04/16/19 04/17/19 23:59 23:59 23:59 23:59 Intake Total 091 733 9978 520 Output Total 1075 800 Balance -969 442 1835 520 Weight 133 lb 7 oz Last Vital Signs Temp Pulse Resp BP Pulse Ox 98.3 F 83 18 150/89 97 04/17/19 06:00 04/17/19 06:00 04/17/19 06:00 04/17/19 06:00 04/16/19 21:00 Active Medications Acetaminophen (Tylenol -) 650 mg PO Q4H PRN PRN Reason: PAIN LEVEL 1-5 Last Admin: 04/16/19 22:14 Dose: 650 mg Albuterol/Ipratropium (Duoneb -) 1 amp NEB Q4H PRN PRN Reason: SHORT OF BREATH/WHEEZING Last Admin: 04/17/19 08:15 Dose: 1 amp Ascorbic Acid (Vitamin C -) 500 mg PO BID [facility] Last Admin: 04/17/19 09:29 Dose: 500 mg Budesonide/Formoterol Fumarate (Symbicort 160/4.5mcg -) 2 puff IH BID [facility] Last Admin: 04/17/19 10:23 Dose: 2 puff Carbidopa/Levodopa (Sinemet 25/100 -) 1 each PO TID@0900,1200,1700 [facility] Last Admin: 04/17/19 09:29 Dose: 1 each Sodium Chloride (1/2 Normal Saline) 1,000 mls @ 70 mls/hr IV [facility] Last Admin: 04/08/19 15:01 Dose: 70 mls/hr Trimethoprim/Sulfamethoxazole (320 mg/ Dextrose) 520 mls @ 346.667 mls/hr IVPB Q8H-IV [facility] Last Admin: 04/17/19 02:07 Dose: 346.667 mls/hr Melatonin (Melatonin) 5 mg PO HS PRN PRN Reason: INSOMNIA Last Admin: 04/17/19 04:42 Dose: 5 mg Methylprednisolone Sodium Succinate (Solu-Medrol -) 30 mg IVPUSH BID [facility] Last Admin: 04/17/19 09:35 Dose: 30 mg Metoprolol Succinate (Toprol Xl -) 25 mg PO DAILY [facility] Last Admin: 04/17/19 09:29 Dose: 25 mg Pantoprazole Sodium (Protonix Iv) 40 mg IVPUSH BID [facility] Last Admin: 04/17/19 09:29 Dose: 40 mg Sertraline HCl 50 mg/ (Sertraline HCl 25 mg) 75 mg PO DAILY [facility] Last Admin: 04/17/19 09:29 Dose: 75 mg Silver Sulfadiazine (Silvadene -) 1 applic TP BID [facility] Last Admin: 04/17/19 10:26 Dose: 1 applic Tiotropium [place] (Spiriva Respimat) 2 puff IH DAILY [facility] Last Admin: 04/17/19 10:25 Dose: 2 puff Zinc Oxide/Panthenol/Vitamin E (Balmex Cream -) 1 applic TP BID [facility] Last Admin: 04/17/19 10:26 Dose: 1 applic Gen: NAD at rest Heart: RRR Lung: bilateral rhonchi, no wheeze Abd: soft, nontender Ext: no edema Laboratory Results - last 24 hr 04/16/19 04/16/19 04/17/19 17:00 17:00 07:30 WBC 21.4 H 23.8 H RBC 4.89 4.70 Hgb 15.6 15.0 Hct 46.4 44.3 MCV 94.9 94.4 MCH 31.9 32.0 MCHC 33.6 33.9 RDW 16.1 H 15.9 Plt Count 216 232 MPV 8.8 8.5 Absolute Neuts (auto) 20.0 H 22.9 H Total Counted 100 Neutrophils % 93.3 H 96.2 H Neutrophils % (Manual) 85.0 H Band Neutrophils % 1.0 Lymphocytes % 3.5 L D 2.2 L D Lymphocytes % (Manual) 6.0 L D Monocytes % 2.9 L 1.3 L Monocytes % (Manual) 3 L Eosinophils % 0.1 D 0.0 D Basophils % 0.2 0.3 Myelocytes % (Man) 3 H D Nucleated RBC % 0 0 Differential Comment Man diff performed Platelet Estimate Adequate Platelet Comment Slide scanned. Sodium 132 L Potassium 3.9 Chloride 90 L Carbon Dioxide 34 H Anion Gap 8 BUN 53.6 H Creatinine 1.1 Est GFR (CKD-EPI)AfAm 69.59 Est GFR (CKD-EPI)NonAf 60.04 Random Glucose 83 Calcium 9.2 04/17/19 07:30 WBC RBC Hgb Hct MCV MCH MCHC RDW Plt Count MPV Absolute Neuts (auto) Total Counted Neutrophils % Neutrophils % (Manual) Band Neutrophils % Lymphocytes % Lymphocytes % (Manual) Monocytes % Monocytes % (Manual) Eosinophils % Basophils % Myelocytes % (Man) Nucleated RBC % Differential Comment Platelet Estimate Platelet Comment Sodium 128 L Potassium 4.5 Chloride 88 L Carbon Dioxide 31 Anion Gap 9 BUN 55.5 H Creatinine 1.2 Est GFR (CKD-EPI)AfAm 62.64 Est GFR (CKD-EPI)NonAf 54.04 Random Glucose 147 H Calcium 9.0 Problem List - Problems (1) COPD exacerbation Code(s): J44.1 - CHRONIC OBSTRUCTIVE PULMONARY DISEASE W (ACUTE) EXACERBATION A/P Acute COPD Exacerbation Chronic Hypoxic Respiratory Failure Severe Pulmonary HTN CAD HTN - Medrol to 30mg Q12h - ABX per ID - Inhaled bronchodilators standing and PRN - Symbicort - O2 to keep SpO2 >90% - DVT prophylaxis Dr Martinez
--- NOTE | 2019-04-17 11:53 | PN ---
Progress Note, Physician Chief Complaint: Pt is not Improving well No Fever Still is SOB Pt is depressed spoke with spoke with ID Pt WBC is going High - Current Medication List Current Medications: Active Medications Acetaminophen (Tylenol -) 650 mg PO Q4H PRN PRN Reason: PAIN LEVEL 1-5 Last Admin: 04/16/19 22:14 Dose: 650 mg Albuterol/Ipratropium (Duoneb -) 1 amp NEB Q4H PRN PRN Reason: SHORT OF BREATH/WHEEZING Last Admin: 04/17/19 08:15 Dose: 1 amp Ascorbic Acid (Vitamin C -) 500 mg PO BID [facility] Last Admin: 04/17/19 09:29 Dose: 500 mg Budesonide/Formoterol Fumarate (Symbicort 160/4.5mcg -) 2 puff IH BID [facility] Last Admin: 04/17/19 10:23 Dose: 2 puff Carbidopa/Levodopa (Sinemet 25/100 -) 1 each PO TID@0900,1200,1700 [facility] Last Admin: 04/17/19 09:29 Dose: 1 each Furosemide (Lasix -) 20 mg PO DAILY [facility] Sodium Chloride (1/2 Normal Saline) 1,000 mls @ 70 mls/hr IV ASDIR [facility] Last Admin: 04/08/19 15:01 Dose: 70 mls/hr Trimethoprim/Sulfamethoxazole (320 mg/ Dextrose) 520 mls @ 346.667 mls/hr IVPB Q8H-IV [facility] Last Admin: 04/17/19 11:30 Dose: 346.667 mls/hr Melatonin (Melatonin) 5 mg PO HS PRN PRN Reason: INSOMNIA Last Admin: 04/17/19 04:42 Dose: 5 mg Methylprednisolone Sodium Succinate (Solu-Medrol -) 30 mg IVPUSH BID [facility] Last Admin: 04/17/19 09:35 Dose: 30 mg Metoprolol Succinate (Toprol Xl -) 25 mg PO DAILY [facility] Last Admin: 04/17/19 09:29 Dose: 25 mg Pantoprazole Sodium (Protonix Iv) 40 mg IVPUSH BID [facility] Last Admin: 04/17/19 09:29 Dose: 40 mg Sertraline HCl 50 mg/ (Sertraline HCl 25 mg) 75 mg PO DAILY [facility] Last Admin: 04/17/19 09:29 Dose: 75 mg Silver Sulfadiazine (Silvadene -) 1 applic TP BID [facility] Last Admin: 04/17/19 10:26 Dose: 1 applic Tiotropium [place] (Spiriva Respimat) 2 puff IH DAILY [facility] Last Admin: 04/17/19 10:25 Dose: 2 puff Zinc Oxide/Panthenol/Vitamin E (Balmex Cream -) 1 applic TP BID [facility] Last Admin: 04/17/19 10:26 Dose: 1 applic - Objective Vital Signs: Vital Signs Temperature 98.3 F 04/17/19 06:00 Pulse Rate 83 04/17/19 06:00 Respiratory Rate 18 04/17/19 06:00 Blood Pressure 150/89 04/17/19 06:00 O2 Sat by Pulse Oximetry (%) 97 04/16/19 21:00 Constitutional: Yes: Anxious Eyes: Yes: Conjunctiva Clear, EOM Intact HENT: Yes: Atraumatic, Normocephalic Neck: Yes: Supple, Trachea Midline Cardiovascular: Yes: Regular Rate and Rhythm, S1, S2 Respiratory: Yes: Regular, CTA Bilaterally Gastrointestinal: Yes: Normal Bowel Sounds, Soft Labs: CBC, BMP 04/17/19 07:30 04/17/19 07:30 INR, PTT INR 1.03 (0.83-1.09) 04/06/19 19:45 Problem List - Problems (1) Pulmonary hypertension Code(s): I27.20 - PULMONARY HYPERTENSION, UNSPECIFIED (2) GERD (gastroesophageal reflux disease) Code(s): K21.9 - GASTRO-ESOPHAGEAL REFLUX DISEASE WITHOUT ESOPHAGITIS (3) Acute diastolic (congestive) heart failure Code(s): I50.31 - ACUTE DIASTOLIC (CONGESTIVE) HEART FAILURE (4) Acute exacerbation of chronic obstructive pulmonary disease Code(s): J44.1 - CHRONIC OBSTRUCTIVE PULMONARY DISEASE W (ACUTE) EXACERBATION (5) Acute hypoxemic respiratory failure Code(s): J96.01 - ACUTE RESPIRATORY FAILURE WITH HYPOXIA (6) Bipolar 1 disorder Code(s): F31.9 - BIPOLAR DISORDER, UNSPECIFIED (7) Bronchiectasis Code(s): J47.9 - BRONCHIECTASIS, UNCOMPLICATED (8) CHF (congestive heart failure), NYHA class II Code(s): I50.9 - HEART FAILURE, UNSPECIFIED (9) Chronic kidney disease (CKD) Code(s): N18.9 - CHRONIC KIDNEY DISEASE, UNSPECIFIED (10) Elevated troponin Code(s): R74.8 - ABNORMAL LEVELS OF OTHER SERUM ENZYMES (11) Emphysema of lung Code(s): J43.9 - EMPHYSEMA, UNSPECIFIED (12) Hypotension Code(s): I95.9 - HYPOTENSION, UNSPECIFIED (13) HTN (hypertension) Code(s): I10 - ESSENTIAL (PRIMARY) HYPERTENSION (14) Insomnia disorder Code(s): G47.00 - INSOMNIA, UNSPECIFIED Assessment/Plan (1) Pulmonary hypertension Code(s): I27.20 - PULMONARY HYPERTENSION, UNSPECIFIED (2) GERD (gastroesophageal reflux disease) Code(s): K21.9 - GASTRO-ESOPHAGEAL REFLUX DISEASE WITHOUT ESOPHAGITIS (3) Acute diastolic (congestive) heart failure Code(s): I50.31 - ACUTE DIASTOLIC (CONGESTIVE) HEART FAILURE (4) Acute exacerbation of chronic obstructive pulmonary disease Code(s): J44.1 - CHRONIC OBSTRUCTIVE PULMONARY DISEASE W (ACUTE) EXACERBATION (5) Acute hypoxemic respiratory failure Code(s): J96.01 - ACUTE RESPIRATORY FAILURE WITH HYPOXIA (6) Bipolar 1 disorder Code(s): F31.9 - BIPOLAR DISORDER, UNSPECIFIED (7) Bronchiectasis Code(s): J47.9 - BRONCHIECTASIS, UNCOMPLICATED (8) CHF (congestive heart failure), NYHA class II Code(s): I50.9 - HEART FAILURE, UNSPECIFIED (9) Chronic kidney disease (CKD) Code(s): N18.9 - CHRONIC KIDNEY DISEASE, UNSPECIFIED (10) Elevated troponin Code(s): R74.8 - ABNORMAL LEVELS OF OTHER SERUM ENZYMES (11) Emphysema of lung Code(s): J43.9 - EMPHYSEMA, UNSPECIFIED (12) Hypotension Code(s): I95.9 - HYPOTENSION, UNSPECIFIED (13) HTN (hypertension) Code(s): I10 - ESSENTIAL (PRIMARY) HYPERTENSION (14) Insomnia disorder Code(s): G47.00 - INSOMNIA, UNSPECIFIED Pt is not improving well Chest PT ordered not done last several days Pt was seeby psych and spoke with Dr Cabezas Pt is very depressed Pt WBC creeping up discussed with ID with Bactrim Fluid overload Lasix 20 IV BID
[2019-04-17] MEDS ORDERED: FUROSEMIDE 20 MG TABLET (FP) PO SCH (12:00)
[2019-04-17 12:10] LABS: ANISOCYTOSIS 1+; MACROCYTOSIS 1+; PLATELET ESTIMATE NORMAL
[2019-04-17] MEDS: POTASSIUM CHLORIDE TABS 10 MEQ TABLET.ER (FP) PO SCH (13:20)
[2019-04-17] MEDS: FUROSEMIDE 40 MG/4 ML INJECTABLE VIAL IVPUSH SCH (15:38)
[2019-04-17] MEDS ORDERED: PT OWN MED DRAWER 7, Y5N ONE (17:30)
[2019-04-18] MEDS: MELATONIN 5 MG TABLETS PO PRN ×2 (00:14→21:49)
[2019-04-18] MEDS ORDERED: PT OWN MED DRAWER 7, Y5N ONE ×2 (02:44→17:21)
[2019-04-18] MEDS: SULFAMETHOXAZOLE/TRIMETHOPRIM 320 MG in DEXTROSE 5%-WATER - 500 ML IVPB SCH ×3 (02:52→17:31)
[2019-04-18] MEDS: FUROSEMIDE 40 MG/4 ML INJECTABLE VIAL IVPUSH SCH (05:57)
[2019-04-18 07:29] LABS: BASO % 0.1 % (0-2.0); HEMATOCRIT 42.6 % (35.4-49); HEMOGLOBIN 14.7 GM/dL (11.7-16.9); LYMPH % 1.9 % (8-40); MCH 31.8 pg (25.7-33.7); MCHC 34.5 g/dl (32.0-35.9); MEAN CELL VOLUME 92.4 fl (80-96); MEAN PLT VOLUME 8.5 fl (7.5-11.1); MONO % 2.5 % (3.8-10.2); NEUT % 95.5 % (42.8-82.8); PLATELET COUNT 247 K/MM3 (134-434); RBC 4.61 M/mm3 (4.00-5.60); WHITE BLOOD COUNT 28.2 K/mm3 (4.0-10.0)
[2019-04-18 07:48] LABS: BLOOD UREA NITROGEN 46.6 mg/dL (7-18); CALCIUM 8.8 mg/dL (8.5-10.1); CREATININE 1.4 mg/dL (0.55-1.3); POTASSIUM 4.2 mmol/L (3.5-5.1)
[2019-04-18] MEDS ORDERED: SERTRALINE HCL 25 MG TABLET (FP) ONE (09:36)
[2019-04-18] MEDS ORDERED: SERTRALINE HCL 50 MG TABLET (FP) ONE (09:36)
[2019-04-18] MEDS: SERTRALINE HCL 50 MG, SERTRALINE HCL 25 MG PO SCH (10:03)
[2019-04-18] MEDS: metoPROLOL SUCCINATE 25 MG TAB.SR.24H (FP) PO SCH (10:03)
[2019-04-18] MEDS: methylPREDNISolone NA SUCC 40 MG/1 ML VIAL IVPUSH SCH ×2 (10:03→21:17)
[2019-04-18] MEDS: ASCORBIC ACID 500 MG TABLET (FP) PO SCH ×2 (10:03→21:17)
[2019-04-18] MEDS: PANTOPRAZOLE SODIUM 40 MG VIAL IVPUSH SCH ×2 (10:03→21:17)
[2019-04-18] MEDS: BUDESONIDE/FORMETEROL FUMARATE 160/4.5 mcg INHALER IH SCH ×2 (10:04→21:14)
[2019-04-18] MEDS: TIOTROPIUM BROMIDE 2.5 MCG (SPIRIVA) RESPIMAT INHALER IH SCH (10:04)
[2019-04-18] MEDS: ZINC OXIDE/PANTHENOL/VITAMIN E 56 GM TUBE TP SCH ×2 (10:05→21:18)
[2019-04-18] MEDS: SILVER SULFADIAZINE 1% TOP CREAM 50 GM JAR TP SCH ×2 (10:05→21:18)
[2019-04-18] MEDS: CARBIDOPA/LEVODOPA 25/100 TABLET (FP) PO SCH ×3 (10:10→17:30)
--- NOTE | 2019-04-18 10:10 | PN ---
Progress Note (short form) - Note Progress Note: States breathing feels about the same. No acute events overnight. Intake & Output 04/15/19 04/16/19 04/17/19 04/18/19 23:59 23:59 23:59 23:59 Intake Total 950 2185 760 1130 Output Total 800 100 Balance 150 2185 760 1030 Weight 132 lb 14.4 oz Last Vital Signs Temp Pulse Resp BP Pulse Ox 97.9 F 98 H 20 157/86 97 04/18/19 06:00 04/18/19 06:00 04/18/19 06:00 04/18/19 06:00 04/17/19 09:00 Active Medications Acetaminophen (Tylenol -) 650 mg PO Q4H PRN PRN Reason: PAIN LEVEL 1-5 Last Admin: 04/16/19 22:14 Dose: 650 mg Albuterol/Ipratropium (Duoneb -) 1 amp NEB Q4H PRN PRN Reason: SHORT OF BREATH/WHEEZING Last Admin: 04/17/19 08:15 Dose: 1 amp Ascorbic Acid (Vitamin C -) 500 mg PO BID [facility] Last Admin: 04/18/19 10:03 Dose: 500 mg Budesonide/Formoterol Fumarate (Symbicort 160/4.5mcg -) 2 puff IH BID [facility] Last Admin: 04/18/19 10:04 Dose: 2 puff Carbidopa/Levodopa (Sinemet 25/100 -) 1 each PO TID@0900,1200,1700 [facility] Last Admin: 04/17/19 17:43 Dose: 1 each Furosemide (Lasix Injection -) 20 mg IVPUSH BID@0600,1400 [facility] Last Admin: 04/18/19 05:57 Dose: 20 mg Trimethoprim/Sulfamethoxazole (320 mg/ Dextrose) 520 mls @ 346.667 mls/hr IVPB Q8H-IV [facility] Last Admin: 04/18/19 10:03 Dose: 346.667 mls/hr Melatonin (Melatonin) 5 mg PO HS PRN PRN Reason: INSOMNIA Last Admin: 04/18/19 00:14 Dose: 5 mg Methylprednisolone Sodium Succinate (Solu-Medrol -) 30 mg IVPUSH BID [facility] Last Admin: 04/18/19 10:03 Dose: 30 mg Metoprolol Succinate (Toprol Xl -) 25 mg PO DAILY [facility] Last Admin: 04/18/19 10:03 Dose: 25 mg Pantoprazole Sodium (Protonix Iv) 40 mg IVPUSH BID [facility] Last Admin: 04/18/19 10:03 Dose: 40 mg Sertraline HCl 50 mg/ (Sertraline HCl 25 mg) 75 mg PO DAILY [facility] Last Admin: 04/18/19 10:03 Dose: 75 mg Silver Sulfadiazine (Silvadene -) 1 applic TP BID [facility] Last Admin: 04/18/19 10:05 Dose: 1 applic Tiotropium [place] (Spiriva Respimat) 2 puff IH DAILY [facility] Last Admin: 04/18/19 10:04 Dose: 2 puff Zinc Oxide/Panthenol/Vitamin E (Balmex Cream -) 1 applic TP BID [facility] Last Admin: 04/18/19 10:05 Dose: 1 applic Gen: NAD at rest Heart: RRR Lung: bilateral rhonchi, no wheeze Abd: soft, nontender Ext: no edema Problem List - Problems (1) COPD exacerbation Code(s): J44.1 - CHRONIC OBSTRUCTIVE PULMONARY DISEASE W (ACUTE) EXACERBATION A/P Acute COPD Exacerbation Chronic Hypoxic Respiratory Failure Severe Pulmonary HTN CAD HTN Progressive Hyponatremia due to hypotonic saline and diuretics - Will hold Hypotonic saline for now. Consider iso-tonic saline infusion and hold lasix for now - Medrol to 30mg Q12h: Can likely change to Prednisone in the next 24 to 48 hours - ABX per ID - Inhaled bronchodilators standing and PRN - Symbicort - O2 to keep SpO2 >90% - DVT prophylaxis Dr Martienz
[2019-04-18 11:38] LABS: PLATELET ESTIMATE ADEQUATE
--- NOTE | 2019-04-18 12:12 | PN ---
Progress Note, Physician History of Present Illness: stable feeling much better very weak - Current Medication List Current Medications: Active Medications Acetaminophen (Tylenol -) 650 mg PO Q4H PRN PRN Reason: PAIN LEVEL 1-5 Last Admin: 04/16/19 22:14 Dose: 650 mg Albuterol/Ipratropium (Duoneb -) 1 amp NEB Q4H PRN PRN Reason: SHORT OF BREATH/WHEEZING Last Admin: 04/17/19 08:15 Dose: 1 amp Ascorbic Acid (Vitamin C -) 500 mg PO BID [facility] Last Admin: 04/18/19 10:03 Dose: 500 mg Budesonide/Formoterol Fumarate (Symbicort 160/4.5mcg -) 2 puff IH BID [facility] Last Admin: 04/18/19 10:04 Dose: 2 puff Carbidopa/Levodopa (Sinemet 25/100 -) 1 each PO TID@0900,1200,1700 [facility] Last Admin: 04/18/19 10:10 Dose: 1 each Furosemide (Lasix Injection -) 20 mg IVPUSH BID@0600,1400 [facility] Last Admin: 04/18/19 05:57 Dose: 20 mg Trimethoprim/Sulfamethoxazole (320 mg/ Dextrose) 520 mls @ 346.667 mls/hr IVPB Q8H-IV [facility] Last Admin: 04/18/19 10:03 Dose: 346.667 mls/hr Melatonin (Melatonin) 5 mg PO HS PRN PRN Reason: INSOMNIA Last Admin: 04/18/19 00:14 Dose: 5 mg Methylprednisolone Sodium Succinate (Solu-Medrol -) 30 mg IVPUSH BID [facility] Last Admin: 04/18/19 10:03 Dose: 30 mg Metoprolol Succinate (Toprol Xl -) 25 mg PO DAILY [facility] Last Admin: 04/18/19 10:03 Dose: 25 mg Pantoprazole Sodium (Protonix Iv) 40 mg IVPUSH BID [facility] Last Admin: 04/18/19 10:03 Dose: 40 mg Sertraline HCl 50 mg/ (Sertraline HCl 25 mg) 75 mg PO DAILY [facility] Last Admin: 04/18/19 10:03 Dose: 75 mg Silver Sulfadiazine (Silvadene -) 1 applic TP BID [facility] Last Admin: 04/18/19 10:05 Dose: 1 applic Tiotropium [place] (Spiriva Respimat) 2 puff IH DAILY [facility] Last Admin: 04/18/19 10:04 Dose: 2 puff Zinc Oxide/Panthenol/Vitamin E (Balmex Cream -) 1 applic TP BID [facility] Last Admin: 04/18/19 10:05 Dose: 1 applic - Objective Vital Signs: Vital Signs Temperature 97.9 F 04/18/19 06:00 Pulse Rate 103 H 04/18/19 10:00 Respiratory Rate 22 H 04/18/19 10:00 Blood Pressure 168/88 04/18/19 10:00 O2 Sat by Pulse Oximetry (%) 97 04/17/19 09:00 Constitutional: Yes: No Distress, Calm, Other (very weak) Cardiovascular: Yes: S1, S2 Respiratory: Yes: Regular, CTA Bilaterally Gastrointestinal: Yes: Normal Bowel Sounds, Soft Musculoskeletal: Yes: WNL Extremities: Yes: WNL Neurological: Yes: Alert, Oriented Psychiatric: Yes: Alert, Oriented Labs: CBC, BMP 04/18/19 07:04 04/18/19 07:04 INR, PTT INR 1.03 (0.83-1.09) 04/06/19 19:45 Assessment/Plan Problem List - Problems (1) Pulmonary hypertension Code(s): I27.20 - PULMONARY HYPERTENSION, UNSPECIFIED (2) GERD (gastroesophageal reflux disease) Code(s): K21.9 - GASTRO-ESOPHAGEAL REFLUX DISEASE WITHOUT ESOPHAGITIS (3) Acute diastolic (congestive) heart failure Code(s): I50.31 - ACUTE DIASTOLIC (CONGESTIVE) HEART FAILURE (4) Acute exacerbation of chronic obstructive pulmonary disease Code(s): J44.1 - CHRONIC OBSTRUCTIVE PULMONARY DISEASE W (ACUTE) EXACERBATION (5) Acute hypoxemic respiratory failure Code(s): J96.01 - ACUTE RESPIRATORY FAILURE WITH HYPOXIA (6) Bipolar 1 disorder Code(s): F31.9 - BIPOLAR DISORDER, UNSPECIFIED (7) Bronchiectasis Code(s): J47.9 - BRONCHIECTASIS, UNCOMPLICATED (8) CHF (congestive heart failure), NYHA class II Code(s): I50.9 - HEART FAILURE, UNSPECIFIED (9) Chronic kidney disease (CKD) Code(s): N18.9 - CHRONIC KIDNEY DISEASE, UNSPECIFIED (10) Elevated troponin Code(s): R74.8 - ABNORMAL LEVELS OF OTHER SERUM ENZYMES (11) Emphysema of lung Code(s): J43.9 - EMPHYSEMA, UNSPECIFIED (12) Hypotension Code(s): I95.9 - HYPOTENSION, UNSPECIFIED (13) HTN (hypertension) Code(s): I10 - ESSENTIAL (PRIMARY) HYPERTENSION (14) Insomnia disorder Code(s): G47.00 - INSOMNIA, UNSPECIFIED plan sputum cx noted bactrim incentive camacho rest as per the team
--- NOTE | 2019-04-18 12:35 | PN ---
Progress Note (short form) - Note Progress Note: s: sob better, no chest pain, palps, dizziness Current Medications Acetaminophen (Tylenol -) 650 mg PO Q4H PRN PRN Reason: PAIN LEVEL 1-5 Last Admin: 04/16/19 22:14 Dose: 650 mg Albuterol/Ipratropium (Duoneb -) 1 amp NEB Q4H PRN PRN Reason: SHORT OF BREATH/WHEEZING Last Admin: 04/17/19 08:15 Dose: 1 amp Ascorbic Acid (Vitamin C -) 500 mg PO BID [facility] Last Admin: 04/18/19 10:03 Dose: 500 mg Budesonide/Formoterol Fumarate (Symbicort 160/4.5mcg -) 2 puff IH BID [facility] Last Admin: 04/18/19 10:04 Dose: 2 puff Carbidopa/Levodopa (Sinemet 25/100 -) 1 each PO TID@0900,1200,1700 [facility] Last Admin: 04/18/19 10:10 Dose: 1 each Furosemide (Lasix Injection -) 20 mg IVPUSH BID@0600,1400 [facility] Last Admin: 04/18/19 05:57 Dose: 20 mg Trimethoprim/Sulfamethoxazole (320 mg/ Dextrose) 520 mls @ 346.667 mls/hr IVPB Q8H-IV [facility] Last Admin: 04/18/19 10:03 Dose: 346.667 mls/hr Melatonin (Melatonin) 5 mg PO HS PRN PRN Reason: INSOMNIA Last Admin: 04/18/19 00:14 Dose: 5 mg Methylprednisolone Sodium Succinate (Solu-Medrol -) 30 mg IVPUSH BID [facility] Last Admin: 04/18/19 10:03 Dose: 30 mg Metoprolol Succinate (Toprol Xl -) 25 mg PO DAILY [facility] Last Admin: 04/18/19 10:03 Dose: 25 mg Pantoprazole Sodium (Protonix Iv) 40 mg IVPUSH BID [facility] Last Admin: 04/18/19 10:03 Dose: 40 mg Sertraline HCl 50 mg/ (Sertraline HCl 25 mg) 75 mg PO DAILY [facility] Last Admin: 04/18/19 10:03 Dose: 75 mg Silver Sulfadiazine (Silvadene -) 1 applic TP BID [facility] Last Admin: 04/18/19 10:05 Dose: 1 applic Tiotropium [place] (Spiriva Respimat) 2 puff IH DAILY [facility] Last Admin: 04/18/19 10:04 Dose: 2 puff Zinc Oxide/Panthenol/Vitamin E (Balmex Cream -) 1 applic TP BID [facility] Last Admin: 04/18/19 10:05 Dose: 1 applic Vital Signs Period Temp Pulse Resp BP Sys/[place] Pulse Ox Last 24 Hr 97.9 F-98.4 F 87-103 18-22 131-168/72-93 Constitutional: Yes: No Distress Cardiovascular: Yes: Regular Rate and Rhythm Respiratory: Yes: Rhonchi Gastrointestinal: Yes: Soft Edema: No Neurological: Yes: Alert, Oriented no jaundice, diaphoresis not agitated - ....Imaging EKG: Image Reviewed Assessment/Plan Assessment/Plan echo 02/2019 tds, nl LV function, RV not well visualized, severe pujlm HTN >60 mmHg RVSP stress echo 04/07: apical ischemia a.e. COPD, acute HFpEF: more SOB last night - on IV lasix 20 mg BID - sob better, Cr rising - cont IV lasix for now, change to daily - steroids and BDs as doing (pulm recs) elevated trop: - borderline trop, flat trend, not c/w acs - EKG no ischemic changes history of stress induced CM: with mild acute on chronic diastolic CHF exacerbation in setting of increased IVF - nl EF on echo 02/2019 - cont lisinopril, bystolic DORIS on CKD: - baseline creat 1.4-1.9 - renal fxn improved here PSVT/PAT: - brief runs, off tele now - cont bb CAD: - +apical ischemia 03/2018 managed medically - no angina - cont aspirin, statin, bystolic HTN: - stable, cont current meds pulm HTN: - 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
--- NOTE | 2019-04-18 17:53 | PN ---
Progress Note, Physician History of Present Illness: Pt is having Low sodium (Renal/Pul) Pt getting 1.5 IV fluids to Reduce volume overload Pt on lasix Urine lytes Nephrology eval. No Fever WBC progressively increasing 28 discussed with ID - Current Medication List Current Medications: Active Medications Acetaminophen (Tylenol -) 650 mg PO Q4H PRN PRN Reason: PAIN LEVEL 1-5 Last Admin: 04/16/19 22:14 Dose: 650 mg Albuterol/Ipratropium (Duoneb -) 1 amp NEB Q4H PRN PRN Reason: SHORT OF BREATH/WHEEZING Last Admin: 04/17/19 08:15 Dose: 1 amp Ascorbic Acid (Vitamin C -) 500 mg PO BID [facility] Last Admin: 04/18/19 10:03 Dose: 500 mg Budesonide/Formoterol Fumarate (Symbicort 160/4.5mcg -) 2 puff IH BID [facility] Last Admin: 04/18/19 10:04 Dose: 2 puff Carbidopa/Levodopa (Sinemet 25/100 -) 1 each PO TID@0900,1200,1700 [facility] Last Admin: 04/18/19 17:30 Dose: 1 each Furosemide (Lasix Injection -) 20 mg IVPUSH DAILY [facility] Trimethoprim/Sulfamethoxazole (320 mg/ Dextrose) 520 mls @ 346.667 mls/hr IVPB Q8H-IV [facility] Last Admin: 04/18/19 17:31 Dose: 346.667 mls/hr Melatonin (Melatonin) 5 mg PO HS PRN PRN Reason: INSOMNIA Last Admin: 04/18/19 00:14 Dose: 5 mg Methylprednisolone Sodium Succinate (Solu-Medrol -) 30 mg IVPUSH BID [facility] Last Admin: 04/18/19 10:03 Dose: 30 mg Metoprolol Succinate (Toprol Xl -) 25 mg PO DAILY [facility] Last Admin: 04/18/19 10:03 Dose: 25 mg Pantoprazole Sodium (Protonix Iv) 40 mg IVPUSH BID [facility] Last Admin: 04/18/19 10:03 Dose: 40 mg Sertraline HCl 50 mg/ (Sertraline HCl 25 mg) 75 mg PO DAILY [facility] Last Admin: 04/18/19 10:03 Dose: 75 mg Silver Sulfadiazine (Silvadene -) 1 applic TP BID [facility] Last Admin: 04/18/19 10:05 Dose: 1 applic Tiotropium [place] (Spiriva Respimat) 2 puff IH DAILY [facility] Last Admin: 04/18/19 10:04 Dose: 2 puff Zinc Oxide/Panthenol/Vitamin E (Balmex Cream -) 1 applic TP BID [facility] Last Admin: 04/18/19 10:05 Dose: 1 applic - Objective Vital Signs: Vital Signs Temperature 98.3 F 04/18/19 17:11 Pulse Rate 90 04/18/19 17:11 Respiratory Rate 20 04/18/19 17:11 Blood Pressure 143/87 04/18/19 17:11 O2 Sat by Pulse Oximetry (%) 97 04/17/19 09:00 Constitutional: Yes: Anxious Eyes: Yes: Conjunctiva Clear, EOM Intact HENT: Yes: Atraumatic, Normocephalic Neck: Yes: Supple, Trachea Midline Cardiovascular: Yes: Regular Rate and Rhythm, S1, S2 Respiratory: Yes: Regular, CTA Bilaterally Gastrointestinal: Yes: Normal Bowel Sounds, Soft Edema: No Peripheral Pulses WNL: Yes Labs: CBC, BMP 04/18/19 07:04 04/18/19 07:04 INR, PTT INR 1.03 (0.83-1.09) 04/06/19 19:45 Problem List - Problems (1) Pulmonary hypertension Code(s): I27.20 - PULMONARY HYPERTENSION, UNSPECIFIED (2) GERD (gastroesophageal reflux disease) Code(s): K21.9 - GASTRO-ESOPHAGEAL REFLUX DISEASE WITHOUT ESOPHAGITIS (3) Acute diastolic (congestive) heart failure Code(s): I50.31 - ACUTE DIASTOLIC (CONGESTIVE) HEART FAILURE (4) Acute exacerbation of chronic obstructive pulmonary disease Code(s): J44.1 - CHRONIC OBSTRUCTIVE PULMONARY DISEASE W (ACUTE) EXACERBATION (5) Acute hypoxemic respiratory failure Code(s): J96.01 - ACUTE RESPIRATORY FAILURE WITH HYPOXIA (6) Bipolar 1 disorder Code(s): F31.9 - BIPOLAR DISORDER, UNSPECIFIED (7) Bronchiectasis Code(s): J47.9 - BRONCHIECTASIS, UNCOMPLICATED (8) CHF (congestive heart failure), NYHA class II Code(s): I50.9 - HEART FAILURE, UNSPECIFIED (9) Chronic kidney disease (CKD) Code(s): N18.9 - CHRONIC KIDNEY DISEASE, UNSPECIFIED (10) Elevated troponin Code(s): R74.8 - ABNORMAL LEVELS OF OTHER SERUM ENZYMES (11) Emphysema of lung Code(s): J43.9 - EMPHYSEMA, UNSPECIFIED (12) Hypotension Code(s): I95.9 - HYPOTENSION, UNSPECIFIED (13) HTN (hypertension) Code(s): I10 - ESSENTIAL (PRIMARY) HYPERTENSION (14) Insomnia disorder Code(s): G47.00 - INSOMNIA, UNSPECIFIED Assessment/Plan (1) Pulmonary hypertension Code(s): I27.20 - PULMONARY HYPERTENSION, UNSPECIFIED (2) GERD (gastroesophageal reflux disease) Code(s): K21.9 - GASTRO-ESOPHAGEAL REFLUX DISEASE WITHOUT ESOPHAGITIS (3) Acute diastolic (congestive) heart failure Code(s): I50.31 - ACUTE DIASTOLIC (CONGESTIVE) HEART FAILURE (4) Acute exacerbation of chronic obstructive pulmonary disease Code(s): J44.1 - CHRONIC OBSTRUCTIVE PULMONARY DISEASE W (ACUTE) EXACERBATION (5) Acute hypoxemic respiratory failure Code(s): J96.01 - ACUTE RESPIRATORY FAILURE WITH HYPOXIA (6) Bipolar 1 disorder Code(s): F31.9 - BIPOLAR DISORDER, UNSPECIFIED (7) Bronchiectasis Code(s): J47.9 - BRONCHIECTASIS, UNCOMPLICATED (8) CHF (congestive heart failure), NYHA class II Code(s): I50.9 - HEART FAILURE, UNSPECIFIED (9) Chronic kidney disease (CKD) Code(s): N18.9 - CHRONIC KIDNEY DISEASE, UNSPECIFIED (10) Elevated troponin Code(s): R74.8 - ABNORMAL LEVELS OF OTHER SERUM ENZYMES (11) Emphysema of lung Code(s): J43.9 - EMPHYSEMA, UNSPECIFIED (12) Hypotension Code(s): I95.9 - HYPOTENSION, UNSPECIFIED (13) HTN (hypertension) Code(s): I10 - ESSENTIAL (PRIMARY) HYPERTENSION (14) Insomnia disorder Code(s): G47.00 - INSOMNIA, UNSPECIFIED Hyponitremia Fluid overload WBC 28 discussed with ID
[2019-04-18] MEDS: DRONABINOL 2.5 MG CAPSULE PO SCH (20:02)
[2019-04-19] MEDS ORDERED: PT OWN MED DRAWER 7, Y5N ONE (00:51)
[2019-04-19] MEDS: SULFAMETHOXAZOLE/TRIMETHOPRIM 320 MG in DEXTROSE 5%-WATER - 500 ML IVPB SCH ×3 (01:06→17:42)
[2019-04-19 08:28] LABS: HEMATOCRIT 40.6 % (35.4-49); HEMOGLOBIN 13.7 GM/dL (11.7-16.9); LYMPH % 1.4 % (8-40); MCH 31.7 pg (25.7-33.7); MCHC 33.8 g/dl (32.0-35.9); MEAN CELL VOLUME 93.7 fl (80-96); MEAN PLT VOLUME 8.5 fl (7.5-11.1); MONO % 1.6 % (3.8-10.2); PLATELET COUNT 221 K/MM3 (134-434); RBC 4.33 M/mm3 (4.00-5.60); RDW 16.3 % (11.9-15.9); WHITE BLOOD COUNT 28.6 K/mm3 (4.0-10.0)
[2019-04-19 09:07] LABS: BLOOD UREA NITROGEN 44.3 mg/dL (7-18); CALCIUM 8.9 mg/dL (8.5-10.1); CREATININE 1.3 mg/dL (0.55-1.3); POTASSIUM 4.3 mmol/L (3.5-5.1)
[2019-04-19] MEDS ORDERED: SERTRALINE HCL 25 MG TABLET (FP) ONE ×2 (09:46→09:50)
[2019-04-19] MEDS ORDERED: SERTRALINE HCL 50 MG TABLET (FP) ONE ×2 (09:47→09:50)
[2019-04-19] MEDS: CARBIDOPA/LEVODOPA 25/100 TABLET (FP) PO SCH ×3 (09:55→17:40)
[2019-04-19] MEDS: ASCORBIC ACID 500 MG TABLET (FP) PO SCH ×2 (09:55→21:47)
[2019-04-19] MEDS: SERTRALINE HCL 50 MG, SERTRALINE HCL 25 MG PO SCH (09:55)
[2019-04-19] MEDS: PANTOPRAZOLE SODIUM 40 MG VIAL IVPUSH SCH ×2 (09:55→21:46)
[2019-04-19] MEDS: metoPROLOL SUCCINATE 25 MG TAB.SR.24H (FP) PO SCH (09:55)
[2019-04-19] MEDS: methylPREDNISolone NA SUCC 40 MG/1 ML VIAL IVPUSH SCH ×2 (09:56→21:46)
[2019-04-19] MEDS: TIOTROPIUM BROMIDE 2.5 MCG (SPIRIVA) RESPIMAT INHALER IH SCH (10:00)
[2019-04-19] MEDS ORDERED: FUROSEMIDE 40 MG/4 ML INJECTABLE VIAL IVPUSH SCH (10:00)
[2019-04-19] MEDS: BUDESONIDE/FORMETEROL FUMARATE 160/4.5 mcg INHALER IH SCH ×2 (10:01→21:50)
[2019-04-19] MEDS: ZINC OXIDE/PANTHENOL/VITAMIN E 56 GM TUBE TP SCH ×2 (10:01→21:50)
[2019-04-19] MEDS: SILVER SULFADIAZINE 1% TOP CREAM 50 GM JAR TP SCH ×2 (10:02→21:51)
--- NOTE | 2019-04-19 10:46 | PN ---
Progress Note (short form) - Note Progress Note: PULMONARY States breathing better. Less cough and wheezing. Vital Signs Period Temp Pulse Resp BP Sys/[place] Pulse Ox Last 24 Hr 98.3 F-98.5 F 90-101 20-20 130-161/77-94 Gen: NAD at rest Heart: RRR Lung: distant breath sounds Abd: soft, nontender Ext: no edema CBC, BMP 04/19/19 07:10 04/19/19 06:00 Active Medications Acetaminophen (Tylenol -) 650 mg PO Q4H PRN PRN Reason: PAIN LEVEL 1-5 Last Admin: 04/16/19 22:14 Dose: 650 mg Albuterol/Ipratropium (Duoneb -) 1 amp NEB Q4H PRN PRN Reason: SHORT OF BREATH/WHEEZING Last Admin: 04/17/19 08:15 Dose: 1 amp Ascorbic Acid (Vitamin C -) 500 mg PO BID [facility] Last Admin: 04/19/19 09:55 Dose: 500 mg Budesonide/Formoterol Fumarate (Symbicort 160/4.5mcg -) 2 puff IH BID [facility] Last Admin: 04/19/19 10:01 Dose: 2 puff Carbidopa/Levodopa (Sinemet 25/100 -) 1 each PO TID@0900,1200,1700 [facility] Last Admin: 04/19/19 09:55 Dose: 1 each Dronabinol (Marinol -) 5 mg PO DAILY@1130 [facility] Stop: 04/24/19 11:31 Last Admin: 04/18/19 20:02 Dose: 5 mg Furosemide (Lasix Injection -) 20 mg IVPUSH DAILY [facility] Last Admin: 04/19/19 09:56 Dose: 20 mg Trimethoprim/Sulfamethoxazole (320 mg/ Dextrose) 520 mls @ 346.667 mls/hr IVPB Q8H-IV [facility] Last Admin: 04/19/19 10:01 Dose: 346.667 mls/hr Melatonin (Melatonin) 5 mg PO HS PRN PRN Reason: INSOMNIA Last Admin: 04/18/19 21:49 Dose: 5 mg Methylprednisolone Sodium Succinate (Solu-Medrol -) 30 mg IVPUSH BID [facility] Last Admin: 04/19/19 09:56 Dose: 30 mg Metoprolol Succinate (Toprol Xl -) 25 mg PO DAILY [facility] Last Admin: 04/19/19 09:55 Dose: 25 mg Pantoprazole Sodium (Protonix Iv) 40 mg IVPUSH BID [facility] Last Admin: 04/19/19 09:55 Dose: 40 mg Sertraline HCl 50 mg/ (Sertraline HCl 25 mg) 75 mg PO DAILY [facility] Last Admin: 04/19/19 09:55 Dose: 75 mg Silver Sulfadiazine (Silvadene -) 1 applic TP BID [facility] Last Admin: 04/19/19 10:02 Dose: 1 applic Tiotropium [place] (Spiriva Respimat) 2 puff IH DAILY [facility] Last Admin: 04/19/19 10:00 Dose: 2 puff Zinc Oxide/Panthenol/Vitamin E (Balmex Cream -) 1 applic TP BID [facility] Last Admin: 04/19/19 10:01 Dose: 1 applic A/P Acute COPD Exacerbation Chronic Hypoxic Respiratory Failure Severe Pulmonary HTN CAD Hyponatremia HTN - can change steroids to prednisone 40mg daily - inhaled bronchodilators standing and PRN - symbicort - O2 to keep SpO2 >90% - fluid restriction - monitor lytes - DVT prophylaxis Problem List - Problems (1) COPD exacerbation Code(s): J44.1 - CHRONIC OBSTRUCTIVE PULMONARY DISEASE W (ACUTE) EXACERBATION
--- NOTE | 2019-04-19 11:30 | PN ---
Progress Note, Physician History of Present Illness: says he is feeling a lot better breathing better - Current Medication List Current Medications: Active Medications Acetaminophen (Tylenol -) 650 mg PO Q4H PRN PRN Reason: PAIN LEVEL 1-5 Last Admin: 04/16/19 22:14 Dose: 650 mg Albuterol/Ipratropium (Duoneb -) 1 amp NEB Q4H PRN PRN Reason: SHORT OF BREATH/WHEEZING Last Admin: 04/17/19 08:15 Dose: 1 amp Ascorbic Acid (Vitamin C -) 500 mg PO BID [facility] Last Admin: 04/19/19 09:55 Dose: 500 mg Budesonide/Formoterol Fumarate (Symbicort 160/4.5mcg -) 2 puff IH BID [facility] Last Admin: 04/19/19 10:01 Dose: 2 puff Carbidopa/Levodopa (Sinemet 25/100 -) 1 each PO TID@0900,1200,1700 [facility] Last Admin: 04/19/19 09:55 Dose: 1 each Dronabinol (Marinol -) 5 mg PO DAILY@1130 [facility] Stop: 04/24/19 11:31 Last Admin: 04/18/19 20:02 Dose: 5 mg Furosemide (Lasix Injection -) 20 mg IVPUSH DAILY [facility] Last Admin: 04/19/19 09:56 Dose: 20 mg Trimethoprim/Sulfamethoxazole (320 mg/ Dextrose) 520 mls @ 346.667 mls/hr IVPB Q8H-IV [facility] Last Admin: 04/19/19 10:01 Dose: 346.667 mls/hr Melatonin (Melatonin) 5 mg PO HS PRN PRN Reason: INSOMNIA Last Admin: 04/18/19 21:49 Dose: 5 mg Methylprednisolone Sodium Succinate (Solu-Medrol -) 30 mg IVPUSH BID [facility] Last Admin: 04/19/19 09:56 Dose: 30 mg Metoprolol Succinate (Toprol Xl -) 25 mg PO DAILY [facility] Last Admin: 04/19/19 09:55 Dose: 25 mg Pantoprazole Sodium (Protonix Iv) 40 mg IVPUSH BID [facility] Last Admin: 04/19/19 09:55 Dose: 40 mg Sertraline HCl 50 mg/ (Sertraline HCl 25 mg) 75 mg PO DAILY [facility] Last Admin: 04/19/19 09:55 Dose: 75 mg Silver Sulfadiazine (Silvadene -) 1 applic TP BID [facility] Last Admin: 04/19/19 10:02 Dose: 1 applic Tiotropium [place] (Spiriva Respimat) 2 puff IH DAILY [facility] Last Admin: 04/19/19 10:00 Dose: 2 puff Zinc Oxide/Panthenol/Vitamin E (Balmex Cream -) 1 applic TP BID [facility] Last Admin: 04/19/19 10:01 Dose: 1 applic - Objective Vital Signs: Vital Signs Temperature 98.3 F 04/18/19 17:11 Pulse Rate 96 H 04/19/19 05:00 Respiratory Rate 20 04/19/19 05:00 Blood Pressure 130/77 04/19/19 05:00 O2 Sat by Pulse Oximetry (%) 97 04/18/19 09:00 Constitutional: Yes: No Distress, Calm HENT: Yes: Thrush, Other Cardiovascular: Yes: S1, S2 Respiratory: Yes: Regular, CTA Bilaterally Gastrointestinal: Yes: Normal Bowel Sounds, Soft Musculoskeletal: Yes: WNL Extremities: Yes: WNL Neurological: Yes: Alert, Oriented Psychiatric: Yes: Alert, Oriented Labs: CBC, BMP 04/19/19 07:10 04/19/19 06:00 INR, PTT INR 1.03 (0.83-1.09) 04/06/19 19:45 Assessment/Plan Problem List - Problems (1) Pulmonary hypertension Code(s): I27.20 - PULMONARY HYPERTENSION, UNSPECIFIED (2) GERD (gastroesophageal reflux disease) Code(s): K21.9 - GASTRO-ESOPHAGEAL REFLUX DISEASE WITHOUT ESOPHAGITIS (3) Acute diastolic (congestive) heart failure Code(s): I50.31 - ACUTE DIASTOLIC (CONGESTIVE) HEART FAILURE (4) Acute exacerbation of chronic obstructive pulmonary disease Code(s): J44.1 - CHRONIC OBSTRUCTIVE PULMONARY DISEASE W (ACUTE) EXACERBATION (5) Acute hypoxemic respiratory failure Code(s): J96.01 - ACUTE RESPIRATORY FAILURE WITH HYPOXIA (6) Bipolar 1 disorder Code(s): F31.9 - BIPOLAR DISORDER, UNSPECIFIED (7) Bronchiectasis Code(s): J47.9 - BRONCHIECTASIS, UNCOMPLICATED (8) CHF (congestive heart failure), NYHA class II Code(s): I50.9 - HEART FAILURE, UNSPECIFIED (9) Chronic kidney disease (CKD) Code(s): N18.9 - CHRONIC KIDNEY DISEASE, UNSPECIFIED (10) Elevated troponin Code(s): R74.8 - ABNORMAL LEVELS OF OTHER SERUM ENZYMES (11) Emphysema of lung Code(s): J43.9 - EMPHYSEMA, UNSPECIFIED (12) Hypotension Code(s): I95.9 - HYPOTENSION, UNSPECIFIED (13) HTN (hypertension) Code(s): I10 - ESSENTIAL (PRIMARY) HYPERTENSION (14) Insomnia disorder Code(s): G47.00 - INSOMNIA, UNSPECIFIED plan sputum cx noted bactrim incentive camacho rest as per the team will give nystatin swish and spit
[2019-04-19] MEDS: NYSTATIN 500,000 UNITS/5 ML SUSPENSION PO SCH ×2 (12:15→17:40)
[2019-04-19] MEDS: DRONABINOL 2.5 MG CAPSULE PO SCH (12:16)
[2019-04-19 12:28] LABS: ANISOCYTOSIS 0; MACROCYTOSIS 0; PLATELET ESTIMATE NORMAL
--- NOTE | 2019-04-19 12:53 | PN ---
Progress Note, Physician History of Present Illness: Pt is on Bactrim still WBC high Hyponitremia discussed with renal Still has SOB No fever - Current Medication List Current Medications: Active Medications Acetaminophen (Tylenol -) 650 mg PO Q4H PRN PRN Reason: PAIN LEVEL 1-5 Last Admin: 04/16/19 22:14 Dose: 650 mg Albuterol/Ipratropium (Duoneb -) 1 amp NEB Q4H PRN PRN Reason: SHORT OF BREATH/WHEEZING Last Admin: 04/17/19 08:15 Dose: 1 amp Ascorbic Acid (Vitamin C -) 500 mg PO BID [facility] Last Admin: 04/19/19 09:55 Dose: 500 mg Budesonide/Formoterol Fumarate (Symbicort 160/4.5mcg -) 2 puff IH BID [facility] Last Admin: 04/19/19 10:01 Dose: 2 puff Carbidopa/Levodopa (Sinemet 25/100 -) 1 each PO TID@0900,1200,1700 [facility] Last Admin: 04/19/19 12:15 Dose: 1 each Dronabinol (Marinol -) 5 mg PO DAILY@1130 [facility] Stop: 04/24/19 11:31 Last Admin: 04/19/19 12:16 Dose: 5 mg Trimethoprim/Sulfamethoxazole (320 mg/ Dextrose) 520 mls @ 346.667 mls/hr IVPB Q8H-IV [facility] Last Admin: 04/19/19 10:01 Dose: 346.667 mls/hr Sodium Chloride (Normal Saline -) 1,000 mls @ 83 mls/hr IV ASDIR [facility] Stop: 04/20/19 00:59 Melatonin (Melatonin) 5 mg PO HS PRN PRN Reason: INSOMNIA Last Admin: 04/18/19 21:49 Dose: 5 mg Methylprednisolone Sodium Succinate (Solu-Medrol -) 30 mg IVPUSH BID [facility] Last Admin: 04/19/19 09:56 Dose: 30 mg Metoprolol Succinate (Toprol Xl -) 25 mg PO DAILY [facility] Last Admin: 04/19/19 09:55 Dose: 25 mg Nystatin (Nystatin Oral Suspension -) 500,000 units PO Q6HPO [facility] Last Admin: 04/19/19 12:15 Dose: 500,000 units Pantoprazole Sodium (Protonix Iv) 40 mg IVPUSH BID [facility] Last Admin: 12/30/19 09:55 Dose: 40 mg Sertraline HCl 50 mg/ (Sertraline HCl 25 mg) 75 mg PO DAILY [facility] Last Admin: 04/19/19 09:55 Dose: 75 mg Silver Sulfadiazine (Silvadene -) 1 applic TP BID [facility] Last Admin: 04/19/19 10:02 Dose: 1 applic Tiotropium [place] (Spiriva Respimat) 2 puff IH DAILY [facility] Last Admin: 04/19/19 10:00 Dose: 2 puff Zinc Oxide/Panthenol/Vitamin E (Balmex Cream -) 1 applic TP BID [facility] Last Admin: 04/19/19 10:01 Dose: 1 applic - Objective Vital Signs: Vital Signs Temperature 98.3 F 04/18/19 17:11 Pulse Rate 96 H 04/19/19 05:00 Respiratory Rate 20 04/19/19 05:00 Blood Pressure 130/77 04/19/19 05:00 O2 Sat by Pulse Oximetry (%) 97 04/18/19 09:00 Constitutional: Yes: Anxious Eyes: Yes: Conjunctiva Clear, EOM Intact HENT: Yes: Atraumatic, Normocephalic Neck: Yes: Supple, Trachea Midline Cardiovascular: Yes: Regular Rate and Rhythm, S1, S2 Respiratory: Yes: Regular, CTA Bilaterally Gastrointestinal: Yes: Normal Bowel Sounds, Soft Edema: No Peripheral Pulses WNL: Yes Neurological: Yes: Alert, Cran Nerves II-XII Intact Labs: CBC, BMP 04/19/19 07:10 04/19/19 06:00 INR, PTT INR 1.03 (0.83-1.09) 04/06/19 19:45 Problem List - Problems (1) Pulmonary hypertension Code(s): I27.20 - PULMONARY HYPERTENSION, UNSPECIFIED (2) GERD (gastroesophageal reflux disease) Code(s): K21.9 - GASTRO-ESOPHAGEAL REFLUX DISEASE WITHOUT ESOPHAGITIS (3) Acute diastolic (congestive) heart failure Code(s): I50.31 - ACUTE DIASTOLIC (CONGESTIVE) HEART FAILURE (4) Acute exacerbation of chronic obstructive pulmonary disease Code(s): J44.1 - CHRONIC OBSTRUCTIVE PULMONARY DISEASE W (ACUTE) EXACERBATION (5) Acute hypoxemic respiratory failure Code(s): J96.01 - ACUTE RESPIRATORY FAILURE WITH HYPOXIA (6) Bipolar 1 disorder Code(s): F31.9 - BIPOLAR DISORDER, UNSPECIFIED (7) Bronchiectasis Code(s): J47.9 - BRONCHIECTASIS, UNCOMPLICATED (8) CHF (congestive heart failure), NYHA class II Code(s): I50.9 - HEART FAILURE, UNSPECIFIED (9) Chronic kidney disease (CKD) Code(s): N18.9 - CHRONIC KIDNEY DISEASE, UNSPECIFIED (10) Elevated troponin Code(s): R74.8 - ABNORMAL LEVELS OF OTHER SERUM ENZYMES (11) Emphysema of lung Code(s): J43.9 - EMPHYSEMA, UNSPECIFIED (12) Hypotension Code(s): I95.9 - HYPOTENSION, UNSPECIFIED (13) HTN (hypertension) Code(s): I10 - ESSENTIAL (PRIMARY) HYPERTENSION (14) Insomnia disorder Code(s): G47.00 - INSOMNIA, UNSPECIFIED Assessment/Plan (1) Pulmonary hypertension Code(s): I27.20 - PULMONARY HYPERTENSION, UNSPECIFIED (2) GERD (gastroesophageal reflux disease) Code(s): K21.9 - GASTRO-ESOPHAGEAL REFLUX DISEASE WITHOUT ESOPHAGITIS (3) Acute diastolic (congestive) heart failure Code(s): I50.31 - ACUTE DIASTOLIC (CONGESTIVE) HEART FAILURE (4) Acute exacerbation of chronic obstructive pulmonary disease Code(s): J44.1 - CHRONIC OBSTRUCTIVE PULMONARY DISEASE W (ACUTE) EXACERBATION (5) Acute hypoxemic respiratory failure Code(s): J96.01 - ACUTE RESPIRATORY FAILURE WITH HYPOXIA (6) Bipolar 1 disorder Code(s): F31.9 - BIPOLAR DISORDER, UNSPECIFIED (7) Bronchiectasis Code(s): J47.9 - BRONCHIECTASIS, UNCOMPLICATED (8) CHF (congestive heart failure), NYHA class II Code(s): I50.9 - HEART FAILURE, UNSPECIFIED (9) Chronic kidney disease (CKD) Code(s): N18.9 - CHRONIC KIDNEY DISEASE, UNSPECIFIED (10) Elevated troponin Code(s): R74.8 - ABNORMAL LEVELS OF OTHER SERUM ENZYMES (11) Emphysema of lung Code(s): J43.9 - EMPHYSEMA, UNSPECIFIED (12) Hypotension Code(s): I95.9 - HYPOTENSION, UNSPECIFIED (13) HTN (hypertension) Code(s): I10 - ESSENTIAL (PRIMARY) HYPERTENSION (14) Insomnia disorder Code(s): G47.00 - INSOMNIA, UNSPECIFIED Hyponitremia Fluid overload WBC 28 discussed with ID discussed with renal work up for Hyponitremia
[2019-04-19] MEDS ORDERED: SODIUM CHLORIDE 1,000 ML IV SCH (13:00)
--- NOTE | 2019-04-19 13:06 | PN ---
Progress Note (short form) - Note Progress Note: PM&R follow-up Dr Rogers for Dr Bond: pt last seen 04/13/19. In the interim, he has been seen by Psych for depression, who has increased Zoloft. Bactrim is being given for + sputum cx. He is also being treated for hyponatremia. S: Denies fevers, chills, CP, abdominal pain, nausea, vomiting, constipation, diarrhea, muscle/ joint pain. SOB improving, feeling better overall. 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
--- NOTE | 2019-04-19 14:54 | PN ---
Progress Note (short form) - Note Progress Note: s: no chest pain, palps, dizziness. stable dyspnea Current Medications Acetaminophen (Tylenol -) 650 mg PO Q4H PRN PRN Reason: PAIN LEVEL 1-5 Last Admin: 04/16/19 22:14 Dose: 650 mg Albuterol/Ipratropium (Duoneb -) 1 amp NEB Q4H PRN PRN Reason: SHORT OF BREATH/WHEEZING Last Admin: 04/17/19 08:15 Dose: 1 amp Ascorbic Acid (Vitamin C -) 500 mg PO BID [facility] Last Admin: 04/19/19 09:55 Dose: 500 mg Budesonide/Formoterol Fumarate (Symbicort 160/4.5mcg -) 2 puff IH BID [facility] Last Admin: 04/19/19 10:01 Dose: 2 puff Carbidopa/Levodopa (Sinemet 25/100 -) 1 each PO TID@0900,1200,1700 [facility] Last Admin: 04/19/19 12:15 Dose: 1 each Dronabinol (Marinol -) 5 mg PO DAILY@1130 [facility] Stop: 04/24/19 11:31 Last Admin: 04/19/19 12:16 Dose: 5 mg Trimethoprim/Sulfamethoxazole (320 mg/ Dextrose) 520 mls @ 346.667 mls/hr IVPB Q8H-IV [facility] Last Admin: 04/19/19 10:01 Dose: 346.667 mls/hr Sodium Chloride (Normal Saline -) 1,000 mls @ 83 mls/hr IV ASDIR [facility] Stop: 04/20/19 00:59 Melatonin (Melatonin) 5 mg PO HS PRN PRN Reason: INSOMNIA Last Admin: 04/18/19 21:49 Dose: 5 mg Methylprednisolone Sodium Succinate (Solu-Medrol -) 30 mg IVPUSH BID [facility] Last Admin: 04/19/19 09:56 Dose: 30 mg Metoprolol Succinate (Toprol Xl -) 25 mg PO DAILY [facility] Last Admin: 04/19/19 09:55 Dose: 25 mg Nystatin (Nystatin Oral Suspension -) 500,000 units PO Q6HPO [facility] Last Admin: 04/19/19 12:15 Dose: 500,000 units Pantoprazole Sodium (Protonix Iv) 40 mg IVPUSH BID [facility] Last Admin: 04/19/19 09:55 Dose: 40 mg Sertraline HCl 50 mg/ (Sertraline HCl 25 mg) 75 mg PO DAILY [facility] Last Admin: 04/19/19 09:55 Dose: 75 mg Silver Sulfadiazine (Silvadene -) 1 applic TP BID [facility] Last Admin: 04/19/19 10:02 Dose: 1 applic Tiotropium [place] (Spiriva Respimat) 2 puff IH DAILY [facility] Last Admin: 04/19/19 10:00 Dose: 2 puff Zinc Oxide/Panthenol/Vitamin E (Balmex Cream -) 1 applic TP BID [facility] Last Admin: 04/19/19 10:01 Dose: 1 applic Vital Signs Period Temp Pulse Resp BP Sys/[place] Pulse Ox Last 24 Hr 98.3 F 90-101 20-20 130-160/77-94 Constitutional: Yes: No Distress Cardiovascular: Yes: Regular Rate and Rhythm Respiratory: Yes: Rhonchi Gastrointestinal: Yes: Soft Edema: No Neurological: Yes: Alert, Oriented no jaundice, diaphoresis not agitated - ....Imaging EKG: Image Reviewed Assessment/Plan echo 02/2019 tds, nl LV function, RV not well visualized, severe pujlm HTN >60 mmHg RVSP stress echo 04/07: apical ischemia a.e. COPD, acute HFpEF - stable sob - Cr rising, hyponatremia - lasix dc'ed, now on IVF d/w renal - monitor volume status - steroids and BDs per pulm elevated trop: - borderline trop, flat trend, not c/w acs - EKG no ischemic changes history of stress induced CM: with mild acute on chronic diastolic CHF exacerbation in setting of increased IVF - nl EF on echo 02/2019 - cont lisinopril, bystolic DORIS on CKD: - baseline creat 1.4-1.9 - renal fxn improved here PSVT/PAT: - brief runs, off tele now - cont bb CAD: - +apical ischemia 03/2018 managed medically - no angina - cont aspirin, statin, bystolic HTN: - stable, cont current meds pulm HTN: - 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
--- NOTE | 2019-04-19 15:25 | CONSULT ---
Consult - text type - Consultation Consultation Note: Renal consult for hyponatremia This is a 89 year old gentleman with history of COPD, Lung cancer, cardiomyopathy, CKD presented with cough and shortness of breath and noted to have worsening hyponatremia. Pt is awake and alert. Denies any confusion or lethargy. No seizures noted. Oral intake is poor. Was on IV lasix. On steroids. Not drinking much water. No chest pain. + Shortness of breath. No leg swelling. PMhx: as above Allergies: NKDA Family Hx: NC Social Hx: No T/A/D ROS: as per HPI, all other pertinent ros negative Home Medications Medication Instructions Recorded Budesonide/Formeterol Fumarate 2 inh PO BID 02/24/17 [SYMBICORT 160/4.5mcg -] Lisinopril 5 mg PO BID 02/25/17 Montelukast Na [Singulair -] 10 mg PO HS 02/25/17 Multivitamin [Poly-Vitamin] 1 each PO DAILY 04/28/17 Albuterol 0.083% Nebulizer Magi 1 neb NEB TID 04/01/18 [Ventolin 0.083% Nebulizer Soln -] Mirtazapine [Remeron -] 15 mg PO HS 10/29/18 Sertraline HCl 50 mg PO AM 10/29/18 Loratadine 1 tab PO DAILY 11/02/18 Carbidopa/Levodopa 25/100 [Sinemet 1 each PO TID@0900,1200,1700 #30 03/04/19 25/100 -] tablet Nebivolol [Bystolic -] 10 mg PO DAILY #30 tab 03/04/19 Pantoprazole Sodium [Protonix -] 20 mg PO DAILY #30 tablet.ec 03/04/19 predniSONE [Deltasone -] 10 mg PO BID 04/06/19 Vital Signs Temperature 98.3 F 04/18/19 17:11 Pulse Rate 96 H 04/19/19 05:00 Respiratory Rate 20 04/19/19 05:00 Blood Pressure 130/77 04/19/19 05:00 O2 Sat by Pulse Oximetry (%) 97 04/18/19 09:00 Intake & Output 04/16/19 04/17/19 04/18/19 04/19/19 23:59 23:59 23:59 23:59 Intake Total 2185 760 2250 500 Output Total 600 Balance 2185 760 1650 500 Weight 60.282 kg 60.963 kg NAD awake and alert neck supple RRR Course BS soft NT/ND no LE edema, clubbing or cyanosis CBC, BMP 04/19/19 07:10 04/19/19 06:00 Current Medications Acetaminophen (Tylenol -) 650 mg PO Q4H PRN PRN Reason: PAIN LEVEL 1-5 Last Admin: 04/16/19 22:14 Dose: 650 mg Albuterol/Ipratropium (Duoneb -) 1 amp NEB Q4H PRN PRN Reason: SHORT OF BREATH/WHEEZING Last Admin: 04/17/19 08:15 Dose: 1 amp Ascorbic Acid (Vitamin C -) 500 mg PO BID [facility] Last Admin: 04/19/19 09:55 Dose: 500 mg Budesonide/Formoterol Fumarate (Symbicort 160/4.5mcg -) 2 puff IH BID [facility] Last Admin: 04/19/19 10:01 Dose: 2 puff Carbidopa/Levodopa (Sinemet 25/100 -) 1 each PO TID@0900,1200,1700 [facility] Last Admin: 04/19/19 12:15 Dose: 1 each Dronabinol (Marinol -) 5 mg PO DAILY@1130 [facility] Stop: 04/24/19 11:31 Last Admin: 04/19/19 12:16 Dose: 5 mg Trimethoprim/Sulfamethoxazole (320 mg/ Dextrose) 520 mls @ 346.667 mls/hr IVPB Q8H-IV [facility] Last Admin: 04/19/19 10:01 Dose: 346.667 mls/hr Sodium Chloride (Normal Saline -) 1,000 mls @ 83 mls/hr IV ASDIR [facility] Stop: 04/20/19 00:59 Melatonin (Melatonin) 5 mg PO HS PRN PRN Reason: INSOMNIA Last Admin: 04/18/19 21:49 Dose: 5 mg Methylprednisolone Sodium Succinate (Solu-Medrol -) 30 mg IVPUSH BID [facility] Last Admin: 04/19/19 09:56 Dose: 30 mg Metoprolol Succinate (Toprol Xl -) 25 mg PO DAILY [facility] Last Admin: 04/19/19 09:55 Dose: 25 mg Nystatin (Nystatin Oral Suspension -) 500,000 units PO Q6HPO [facility] Last Admin: 04/19/19 12:15 Dose: 500,000 units Pantoprazole Sodium (Protonix Iv) 40 mg IVPUSH BID [facility] Last Admin: 04/19/19 09:55 Dose: 40 mg Sertraline HCl 50 mg/ (Sertraline HCl 25 mg) 75 mg PO DAILY [facility] Last Admin: 04/19/19 09:55 Dose: 75 mg Silver Sulfadiazine (Silvadene -) 1 applic TP BID [facility] Last Admin: 04/19/19 10:02 Dose: 1 applic Tiotropium [place] (Spiriva Respimat) 2 puff IH DAILY [facility] Last Admin: 04/19/19 10:00 Dose: 2 puff Zinc Oxide/Panthenol/Vitamin E (Balmex Cream -) 1 applic TP BID [facility] Last Admin: 04/19/19 10:01 Dose: 1 applic 89 year old gentleman with history of COPD, Lung cancer, cardiomyopathy, CKD presented with cough and shortness of breath and noted to have worsening hyponatremia. 1. Hypovolemic hyponatremia 2. Respiratory failure 3. Bronchitis 4. Leukocytosis No acute indication for hypertonic saline. Would discontinue IV Lasix Give trial of isotonic saline x 12 hours check TSH and cortisol in AM trend Na BID oral intake as tolerated Case discussed with PMD and cardiology Zack Saleem DO
[2019-04-19] MEDS ORDERED: FUROSEMIDE 40 MG/4 ML INJECTABLE VIAL IVPUSH ONE (18:22)
[2019-04-19] MEDS ORDERED: FUROSEMIDE 40 MG/4 ML INJECTABLE VIAL ONE (18:22)
--- NOTE | 2019-04-19 18:24 | PN ---
Progress Note (short form) - Note Progress Note: Pt was having severe SOB Crackles both Lungs IV fluids and IV bactrim on hold STAT Lasix 40 IV spoke with Nurse on floor STAT Portable CXR Pul congestion we will discuss with ID and Renal Problem List - Problems (1) Pulmonary hypertension Code(s): I27.20 - PULMONARY HYPERTENSION, UNSPECIFIED (2) GERD (gastroesophageal reflux disease) Code(s): K21.9 - GASTRO-ESOPHAGEAL REFLUX DISEASE WITHOUT ESOPHAGITIS (3) Acute diastolic (congestive) heart failure Code(s): I50.31 - ACUTE DIASTOLIC (CONGESTIVE) HEART FAILURE (4) Acute exacerbation of chronic obstructive pulmonary disease Code(s): J44.1 - CHRONIC OBSTRUCTIVE PULMONARY DISEASE W (ACUTE) EXACERBATION (5) Acute hypoxemic respiratory failure Code(s): J96.01 - ACUTE RESPIRATORY FAILURE WITH HYPOXIA (6) Bipolar 1 disorder Code(s): F31.9 - BIPOLAR DISORDER, UNSPECIFIED (7) Bronchiectasis Code(s): J47.9 - BRONCHIECTASIS, UNCOMPLICATED (8) CHF (congestive heart failure), NYHA class II Code(s): I50.9 - HEART FAILURE, UNSPECIFIED (9) Chronic kidney disease (CKD) Code(s): N18.9 - CHRONIC KIDNEY DISEASE, UNSPECIFIED (10) Elevated troponin Code(s): R74.8 - ABNORMAL LEVELS OF OTHER SERUM ENZYMES (11) Emphysema of lung Code(s): J43.9 - EMPHYSEMA, UNSPECIFIED (12) Hypotension Code(s): I95.9 - HYPOTENSION, UNSPECIFIED (13) HTN (hypertension) Code(s): I10 - ESSENTIAL (PRIMARY) HYPERTENSION (14) Insomnia disorder Code(s): G47.00 - INSOMNIA, UNSPECIFIED
[2019-04-19 20:19] LABS: BLOOD UREA NITROGEN 44.4 mg/dL (7-18); CALCIUM 8.6 mg/dL (8.5-10.1); CREATININE 1.4 mg/dL (0.55-1.3); POTASSIUM 3.9 mmol/L (3.5-5.1)
[2019-04-20] MEDS: NYSTATIN 500,000 UNITS/5 ML SUSPENSION PO SCH ×4 (01:04→17:44)
[2019-04-20] MEDS: SULFAMETHOXAZOLE/TRIMETHOPRIM 320 MG in DEXTROSE 5%-WATER - 500 ML IVPB SCH ×3 (01:11→17:40)
[2019-04-20 08:14] LABS: BASO % 0.1 % (0-2.0); HEMATOCRIT 38.6 % (35.4-49); HEMOGLOBIN 13.3 GM/dL (11.7-16.9); LYMPH % 1.9 % (8-40); MCHC 34.4 g/dl (32.0-35.9); MEAN CELL VOLUME 92.9 fl (80-96); MEAN PLT VOLUME 8.5 fl (7.5-11.1); MONO % 2.3 % (3.8-10.2); NEUT % 95.7 % (42.8-82.8); PLATELET COUNT 218 K/MM3 (134-434); RBC 4.15 M/mm3 (4.00-5.60); RDW 15.9 % (11.9-15.9); WHITE BLOOD COUNT 26.3 K/mm3 (4.0-10.0)
[2019-04-20 08:45] LABS: BLOOD UREA NITROGEN 44.4 mg/dL (7-18); CALCIUM 8.8 mg/dL (8.5-10.1); CREATININE 1.4 mg/dL (0.55-1.3); N-TERMINAL BNP 3591.6 pg/ml (5-450); POTASSIUM 3.5 mmol/L (3.5-5.1)
--- NOTE | 2019-04-20 09:47 | PN ---
Progress Note (short form) - Note Progress Note: PULMONARY States breathing about the same. Still some cough and wheezing. Vital Signs Period Temp Pulse Resp BP Sys/[place] Pulse Ox Last 24 Hr 98.0 F-98.4 F 88-100 20-22 122-146/66-90 95 Gen: NAD at rest Heart: RRR Lung: distant breath sounds Abd: soft, nontender Ext: no edema CBC, BMP 04/20/19 06:35 04/20/19 06:35 Active Medications Acetaminophen (Tylenol -) 650 mg PO Q4H PRN PRN Reason: PAIN LEVEL 1-5 Last Admin: 04/16/19 22:14 Dose: 650 mg Albuterol/Ipratropium (Duoneb -) 1 amp NEB Q4H PRN PRN Reason: SHORT OF BREATH/WHEEZING Last Admin: 04/17/19 08:15 Dose: 1 amp Ascorbic Acid (Vitamin C -) 500 mg PO BID [facility] Last Admin: 04/19/19 21:47 Dose: 500 mg Budesonide/Formoterol Fumarate (Symbicort 160/4.5mcg -) 2 puff IH BID [facility] Last Admin: 04/19/19 21:50 Dose: 2 puff Carbidopa/Levodopa (Sinemet 25/100 -) 1 each PO TID@0900,1200,1700 [facility] Last Admin: 04/19/19 17:40 Dose: 1 each Dronabinol (Marinol -) 5 mg PO DAILY@1130 [facility] Stop: 04/24/19 11:31 Last Admin: 04/19/19 12:16 Dose: 5 mg Trimethoprim/Sulfamethoxazole (320 mg/ Dextrose) 520 mls @ 346.667 mls/hr IVPB Q8H-IV [facility] Last Admin: 04/20/19 01:11 Dose: 346.667 mls/hr Melatonin (Melatonin) 5 mg PO HS PRN PRN Reason: INSOMNIA Last Admin: 04/18/19 21:49 Dose: 5 mg Methylprednisolone Sodium Succinate (Solu-Medrol -) 30 mg IVPUSH BID [facility] Last Admin: 04/19/19 21:46 Dose: 30 mg Metoprolol Succinate (Toprol Xl -) 25 mg PO DAILY [facility] Last Admin: 04/19/19 09:55 Dose: 25 mg Nystatin (Nystatin Oral Suspension -) 500,000 units PO Q6HPO [facility] Last Admin: 04/20/19 06:09 Dose: 500,000 units Pantoprazole Sodium (Protonix Iv) 40 mg IVPUSH BID [facility] Last Admin: 04/19/19 21:46 Dose: 40 mg Sertraline HCl 50 mg/ (Sertraline HCl 25 mg) 75 mg PO DAILY [facility] Last Admin: 04/19/19 09:55 Dose: 75 mg Silver Sulfadiazine (Silvadene -) 1 applic TP BID [facility] Last Admin: 04/19/19 21:51 Dose: 1 applic Tiotropium [place] (Spiriva Respimat) 2 puff IH DAILY [facility] Last Admin: 04/19/19 10:00 Dose: 2 puff Zinc Oxide/Panthenol/Vitamin E (Balmex Cream -) 1 applic TP BID [facility] Last Admin: 04/19/19 21:50 Dose: 1 applic A/P Acute COPD Exacerbation Chronic Hypoxic Respiratory Failure Severe Pulmonary HTN CAD Hyponatremia HTN - can change steroids to prednisone 40mg daily - inhaled bronchodilators standing and PRN - symbicort - O2 to keep SpO2 >90% - monitor lytes - DVT prophylaxis Problem List - Problems (1) COPD exacerbation Code(s): J44.1 - CHRONIC OBSTRUCTIVE PULMONARY DISEASE W (ACUTE) EXACERBATION
[2019-04-20] MEDS ORDERED: SERTRALINE HCL 50 MG TABLET (FP) ONE (10:28)
[2019-04-20] MEDS ORDERED: SERTRALINE HCL 25 MG TABLET (FP) ONE (10:28)
[2019-04-20] MEDS ORDERED: PT OWN MED DRAWER 7, Y5N ONE ×2 (10:29→18:30)
[2019-04-20] MEDS: methylPREDNISolone NA SUCC 40 MG/1 ML VIAL IVPUSH SCH ×2 (10:38→21:38)
[2019-04-20] MEDS: SERTRALINE HCL 50 MG, SERTRALINE HCL 25 MG PO SCH (10:39)
[2019-04-20] MEDS: PANTOPRAZOLE SODIUM 40 MG VIAL IVPUSH SCH ×2 (10:40→21:38)
[2019-04-20] MEDS: CARBIDOPA/LEVODOPA 25/100 TABLET (FP) PO SCH ×3 (10:40→17:44)
[2019-04-20] MEDS: ASCORBIC ACID 500 MG TABLET (FP) PO SCH ×2 (10:40→21:38)
[2019-04-20] MEDS: metoPROLOL SUCCINATE 25 MG TAB.SR.24H (FP) PO SCH (10:40)
[2019-04-20] MEDS: DRONABINOL 2.5 MG CAPSULE PO SCH (10:41)
[2019-04-20] MEDS: BUDESONIDE/FORMETEROL FUMARATE 160/4.5 mcg INHALER IH SCH ×2 (10:45→21:38)
[2019-04-20] MEDS: TIOTROPIUM BROMIDE 2.5 MCG (SPIRIVA) RESPIMAT INHALER IH SCH (10:45)
[2019-04-20] MEDS: SILVER SULFADIAZINE 1% TOP CREAM 50 GM JAR TP SCH ×2 (10:47→23:34)
[2019-04-20] MEDS: ZINC OXIDE/PANTHENOL/VITAMIN E 56 GM TUBE TP SCH ×2 (10:47→23:34)
--- NOTE | 2019-04-20 11:25 | PN ---
Progress Note (short form) - Note Progress Note: s: stable sob, cough. no chest pain, palps, dizziness, edema. Current Medications Generic Name Dose Route Start Last Admin Trade Name Freq PRN Reason Stop Dose Admin Acetaminophen 650 mg 04/07/19 00:02 04/16/19 22:14 Tylenol - PO 650 mg Q4H PRN Administration PAIN LEVEL 1-5 Albuterol/Ipratropium 1 amp 04/15/19 21:04 04/17/19 08:15 Duoneb - NEB 1 amp Q4H PRN Administration SHORT OF BREATH/WHEEZING Ascorbic Acid 500 mg 04/07/19 22:00 04/20/19 10:40 Vitamin C - PO 500 mg BID [facility] Administration Budesonide/Formoterol Fumarate 2 puff 04/08/19 13:30 04/20/19 10:45 Symbicort 160/4.5mcg - IH 2 puff BID [facility] Administration Carbidopa/Levodopa 1 each 04/07/19 09:00 04/20/19 10:40 Sinemet 25/100 - PO 1 each TID@0900,1200,1700 [facility] Administration Dronabinol 5 mg 04/18/19 19:00 04/20/19 10:41 Marinol - PO 04/24/19 11:31 5 mg DAILY@1130 [facility] Administration Trimethoprim/Sulfamethoxazole 520 mls @ 346.667 mls/hr 04/16/19 14:46 10:39 320 mg/ Dextrose IVPB 346.667 mls/hr Q8H-IV [facility] Administration Melatonin 5 mg 04/17/19 04:26 04/18/19 21:49 Melatonin PO 5 mg HS PRN Administration INSOMNIA Methylprednisolone Sodium Succinate 30 mg 04/15/19 10:00 04/20/19 10:38 Solu-Medrol - IVPUSH 30 mg BID [facility] Administration Metoprolol Succinate 25 mg 04/11/19 10:00 04/20/19 10:40 Toprol Xl - PO 25 mg DAILY [facility] Administration Nystatin 500,000 units 04/19/19 12:00 04/20/19 06:09 Nystatin Oral Suspension - PO 500,000 units Q6HPO [facility] Administration Pantoprazole Sodium 40 mg 04/07/19 10:00 04/20/19 10:40 Protonix Iv IVPUSH 40 mg BID [facility] Administration Sertraline HCl 50 mg/ 75 mg 04/16/19 10:00 04/20/19 10:39 Sertraline HCl 25 mg PO 75 mg DAILY [facility] Administration Silver Sulfadiazine 1 applic 04/07/19 22:00 04/20/19 10:47 Silvadene - TP 1 applic BID [facility] Administration Tiotropium [place] 2 puff 04/13/19 10:30 04/20/19 10:45 Spiriva Respimat IH 2 puff DAILY [facility] Administration Zinc Oxide/Panthenol/Vitamin E 1 applic 04/07/19 22:00 04/20/19 10:47 Balmex Cream - TP 1 applic BID [facility] Administration Vital Signs Period Temp Pulse Resp BP Sys/[place] Pulse Ox Last 24 Hr 98.0 F-98.2 F 88-100 20-20 122-146/66-90 95 Constitutional: Yes: Well Nourished, No Distress, Calm Cardiovascular: Yes: Regular Rate and Rhythm, S1, S2. No: JVD, Gallop, Murmur Respiratory: Yes: Regular, Rhonchi. No: Accessory Muscle Use Extremities: No: Cold Edema: No Neurological: Yes: Alert, Oriented Psychiatric: No: Agitated no jaundice diaphoresis CBC, BMP 04/20/19 06:35 04/20/19 06:35 Assessment/Plan echo 02/2019 tds, nl LV function, RV not well visualized, severe pujlm HTN >60 mmHg RVSP stress echo 04/07: apical ischemia a.e. COPD, acute HFpEF - stable sob - Cr rising, hyponatremia - lasix dc'ed, now on IVF d/w renal - monitor volume status - steroids and BDs per pulm elevated trop: - borderline trop, flat trend, not c/w acs - EKG no ischemic changes history of stress induced CM: with mild acute on chronic diastolic CHF exacerbation in setting of increased IVF - nl EF on echo 02/2019 - cont lisinopril, bystolic DORIS on CKD: - baseline creat 1.4-1.9 - renal fxn improved here PSVT/PAT: - brief runs, off tele now - cont bb CAD: - +apical ischemia 03/2018 managed medically - no angina - cont aspirin, statin, bystolic HTN: - stable, cont current meds pulm HTN: - 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
--- NOTE | 2019-04-20 13:32 | PN ---
Progress Note, Physician History of Present Illness: stable no new issues still congested - Current Medication List Current Medications: Active Medications Acetaminophen (Tylenol -) 650 mg PO Q4H PRN PRN Reason: PAIN LEVEL 1-5 Last Admin: 04/16/19 22:14 Dose: 650 mg Albuterol/Ipratropium (Duoneb -) 1 amp NEB Q4H PRN PRN Reason: SHORT OF BREATH/WHEEZING Last Admin: 04/17/19 08:15 Dose: 1 amp Ascorbic Acid (Vitamin C -) 500 mg PO BID [facility] Last Admin: 04/20/19 10:40 Dose: 500 mg Budesonide/Formoterol Fumarate (Symbicort 160/4.5mcg -) 2 puff IH BID [facility] Last Admin: 04/20/19 10:45 Dose: 2 puff Carbidopa/Levodopa (Sinemet 25/100 -) 1 each PO TID@0900,1200,1700 [facility] Last Admin: 04/20/19 10:40 Dose: 1 each Dronabinol (Marinol -) 5 mg PO DAILY@1130 [facility] Stop: 04/24/19 11:31 Last Admin: 04/20/19 10:41 Dose: 5 mg Trimethoprim/Sulfamethoxazole (320 mg/ Dextrose) 520 mls @ 346.667 mls/hr IVPB Q8H-IV [facility] Last Admin: 04/20/19 10:39 Dose: 346.667 mls/hr Melatonin (Melatonin) 5 mg PO HS PRN PRN Reason: INSOMNIA Last Admin: 04/18/19 21:49 Dose: 5 mg Methylprednisolone Sodium Succinate (Solu-Medrol -) 30 mg IVPUSH BID [facility] Last Admin: 04/20/19 10:38 Dose: 30 mg Metoprolol Succinate (Toprol Xl -) 25 mg PO DAILY [facility] Last Admin: 04/20/19 10:40 Dose: 25 mg Nystatin (Nystatin Oral Suspension -) 500,000 units PO Q6HPO [facility] Last Admin: 04/20/19 06:09 Dose: 500,000 units Pantoprazole Sodium (Protonix Iv) 40 mg IVPUSH BID [facility] Last Admin: 04/20/19 10:40 Dose: 40 mg Sertraline HCl 50 mg/ (Sertraline HCl 25 mg) 75 mg PO DAILY [facility] Last Admin: 04/20/19 10:39 Dose: 75 mg Silver Sulfadiazine (Silvadene -) 1 applic TP BID [facility] Last Admin: 04/20/19 10:47 Dose: 1 applic Tiotropium [place] (Spiriva Respimat) 2 puff IH DAILY [facility] Last Admin: 04/20/19 10:45 Dose: 2 puff Zinc Oxide/Panthenol/Vitamin E (Balmex Cream -) 1 applic TP BID [facility] Last Admin: 04/20/19 10:47 Dose: 1 applic - Objective Vital Signs: Vital Signs Temperature 98.2 F 04/20/19 06:00 Pulse Rate 91 H 04/20/19 06:00 Respiratory Rate 20 04/20/19 06:00 Blood Pressure 137/66 04/20/19 06:00 O2 Sat by Pulse Oximetry (%) 95 04/19/19 21:00 Constitutional: Yes: No Distress, Calm Respiratory: Yes: Other (congested) Gastrointestinal: Yes: Normal Bowel Sounds, Soft Musculoskeletal: Yes: WNL Extremities: Yes: WNL Neurological: Yes: Alert, Oriented Psychiatric: Yes: Alert, Oriented Labs: CBC, BMP 04/20/19 06:35 04/20/19 06:35 INR, PTT INR 1.03 (0.83-1.09) 04/06/19 19:45 Assessment/Plan Problem List - Problems (1) Pulmonary hypertension Code(s): I27.20 - PULMONARY HYPERTENSION, UNSPECIFIED (2) GERD (gastroesophageal reflux disease) Code(s): K21.9 - GASTRO-ESOPHAGEAL REFLUX DISEASE WITHOUT ESOPHAGITIS (3) Acute diastolic (congestive) heart failure Code(s): I50.31 - ACUTE DIASTOLIC (CONGESTIVE) HEART FAILURE (4) Acute exacerbation of chronic obstructive pulmonary disease Code(s): J44.1 - CHRONIC OBSTRUCTIVE PULMONARY DISEASE W (ACUTE) EXACERBATION (5) Acute hypoxemic respiratory failure Code(s): J96.01 - ACUTE RESPIRATORY FAILURE WITH HYPOXIA (6) Bipolar 1 disorder Code(s): F31.9 - BIPOLAR DISORDER, UNSPECIFIED (7) Bronchiectasis Code(s): J47.9 - BRONCHIECTASIS, UNCOMPLICATED (8) CHF (congestive heart failure), NYHA class II Code(s): I50.9 - HEART FAILURE, UNSPECIFIED (9) Chronic kidney disease (CKD) Code(s): N18.9 - CHRONIC KIDNEY DISEASE, UNSPECIFIED (10) Elevated troponin Code(s): R74.8 - ABNORMAL LEVELS OF OTHER SERUM ENZYMES (11) Emphysema of lung Code(s): J43.9 - EMPHYSEMA, UNSPECIFIED (12) Hypotension Code(s): I95.9 - HYPOTENSION, UNSPECIFIED (13) HTN (hypertension) Code(s): I10 - ESSENTIAL (PRIMARY) HYPERTENSION (14) Insomnia disorder Code(s): G47.00 - INSOMNIA, UNSPECIFIED plan sputum cx noted bactrim incentive camacho rest as per the team will give nystatin swish and spit
[2019-04-20] MEDS ORDERED: SODIUM CHLORIDE 1,000 ML IV SCH (14:30)
--- NOTE | 2019-04-20 15:40 | PN ---
Progress Note (short form) - Note Progress Note: Renal follow up for hyponatremia Seen and examined at the bedside pt noted to have respiratory distress yesterday evening and given IV lasix was taken off IVF making urine no confusion, lethargy, weakness, N/V/D Vital Signs Temperature 98.2 F 04/20/19 06:00 Pulse Rate 91 H 04/20/19 06:00 Respiratory Rate 20 04/20/19 06:00 Blood Pressure 137/66 04/20/19 06:00 O2 Sat by Pulse Oximetry (%) 95 04/19/19 21:00 Intake & Output 04/17/19 04/18/19 04/19/19 04/20/19 23:59 23:59 23:59 23:59 Intake Total 760 2250 2120 620 Output Total 600 350 Balance 760 1650 1770 620 Weight 60.282 kg 60.963 kg 60.781 kg NAD Course BS soft NT/ND no LE edema, clubbing or cyanosis CBC, BMP 04/20/19 06:35 04/20/19 06:35 Current Medications Acetaminophen (Tylenol -) 650 mg PO Q4H PRN PRN Reason: PAIN LEVEL 1-5 Last Admin: 04/16/19 22:14 Dose: 650 mg Albuterol/Ipratropium (Duoneb -) 1 amp NEB Q4H PRN PRN Reason: SHORT OF BREATH/WHEEZING Last Admin: 04/17/19 08:15 Dose: 1 amp Ascorbic Acid (Vitamin C -) 500 mg PO BID [facility] Last Admin: 04/20/19 10:40 Dose: 500 mg Budesonide/Formoterol Fumarate (Symbicort 160/4.5mcg -) 2 puff IH BID [facility] Last Admin: 04/20/19 10:45 Dose: 2 puff Carbidopa/Levodopa (Sinemet 25/100 -) 1 each PO TID@0900,1200,1700 [facility] Last Admin: 04/20/19 13:49 Dose: 1 each Dronabinol (Marinol -) 5 mg PO DAILY@1130 [facility] Stop: 04/24/19 11:31 Last Admin: 04/20/19 10:41 Dose: 5 mg Trimethoprim/Sulfamethoxazole (320 mg/ Dextrose) 520 mls @ 346.667 mls/hr IVPB Q8H-IV [facility] Last Admin: 04/20/19 10:39 Dose: 346.667 mls/hr Melatonin (Melatonin) 5 mg PO HS PRN PRN Reason: INSOMNIA Last Admin: 04/18/19 21:49 Dose: 5 mg Methylprednisolone Sodium Succinate (Solu-Medrol -) 30 mg IVPUSH BID [facility] Last Admin: 04/20/19 10:38 Dose: 30 mg Metoprolol Succinate (Toprol Xl -) 25 mg PO DAILY [facility] Last Admin: 04/20/19 10:40 Dose: 25 mg Nystatin (Nystatin Oral Suspension -) 500,000 units PO Q6HPO [facility] Last Admin: 04/20/19 13:49 Dose: 500,000 units Pantoprazole Sodium (Protonix Iv) 40 mg IVPUSH BID [facility] Last Admin: 04/20/19 10:40 Dose: 40 mg Sertraline HCl 50 mg/ (Sertraline HCl 25 mg) 75 mg PO DAILY [facility] Last Admin: 04/20/19 10:39 Dose: 75 mg Silver Sulfadiazine (Silvadene -) 1 applic TP BID [facility] Last Admin: 04/20/19 10:47 Dose: 1 applic Sodium Chloride (Sodium Chloride Tablet -) 1 gm PO DAILY [facility] Tiotropium [place] (Spiriva Respimat) 2 puff IH DAILY [facility] Last Admin: 04/20/19 10:45 Dose: 2 puff Zinc Oxide/Panthenol/Vitamin E (Balmex Cream -) 1 applic TP BID [facility] Last Admin: 04/20/19 10:47 Dose: 1 applic 89 year old gentleman with history of COPD, Lung cancer, cardiomyopathy, CKD presented with cough and shortness of breath and noted to have worsening hyponatremia. 1. Hypovolemic hyponatremia from poor solute intake + diuretics in setting of D5W infusion with antibiotics 2. Respiratory failure 3. Bronchitis 4. Leukocytosis No acute indication for hypertonic saline. pt could not tolerated IVF given yesterday Chest x-ray shows no evidence of congestion Will start PO sodium chloride 1g daily case discussed with ID,they cannot change the IV Bactrim at this time and it cannot be diluted in NS Would avoid IV diuretics as this time as pt with signs of intravascular volume depletion Zack Saleem DO
[2019-04-20] MEDS ORDERED: SODIUM CHLORIDE 1 GM TABLET PO SCH (15:45)
--- NOTE | 2019-04-20 19:25 | PN ---
Progress Note, Physician - Current Medication List Current Medications: Active Medications Acetaminophen (Tylenol -) 650 mg PO Q4H PRN PRN Reason: PAIN LEVEL 1-5 Last Admin: 04/16/19 22:14 Dose: 650 mg Albuterol/Ipratropium (Duoneb -) 1 amp NEB Q4H PRN PRN Reason: SHORT OF BREATH/WHEEZING Last Admin: 04/17/19 08:15 Dose: 1 amp Ascorbic Acid (Vitamin C -) 500 mg PO BID [facility] Last Admin: 04/20/19 10:40 Dose: 500 mg Budesonide/Formoterol Fumarate (Symbicort 160/4.5mcg -) 2 puff IH BID [facility] Last Admin: 04/20/19 10:45 Dose: 2 puff Carbidopa/Levodopa (Sinemet 25/100 -) 1 each PO TID@0900,1200,1700 [facility] Last Admin: 04/20/19 17:44 Dose: 1 each Dronabinol (Marinol -) 5 mg PO DAILY@1130 [facility] Stop: 04/24/19 11:31 Last Admin: 04/20/19 10:41 Dose: 5 mg Trimethoprim/Sulfamethoxazole (320 mg/ Dextrose) 520 mls @ 346.667 mls/hr IVPB Q8H-IV [facility] Last Admin: 04/20/19 17:40 Dose: 346.667 mls/hr Melatonin (Melatonin) 5 mg PO HS PRN PRN Reason: INSOMNIA Last Admin: 04/18/19 21:49 Dose: 5 mg Methylprednisolone Sodium Succinate (Solu-Medrol -) 30 mg IVPUSH BID [facility] Last Admin: 04/20/19 10:38 Dose: 30 mg Metoprolol Succinate (Toprol Xl -) 25 mg PO DAILY [facility] Last Admin: 04/20/19 10:40 Dose: 25 mg Nystatin (Nystatin Oral Suspension -) 500,000 units PO Q6HPO [facility] Last Admin: 04/20/19 17:44 Dose: 500,000 units Pantoprazole Sodium (Protonix Iv) 40 mg IVPUSH BID [facility] Last Admin: 04/20/19 10:40 Dose: 40 mg Sertraline HCl 50 mg/ (Sertraline HCl 25 mg) 75 mg PO DAILY [facility] Last Admin: 04/20/19 10:39 Dose: 75 mg Silver Sulfadiazine (Silvadene -) 1 applic TP BID [facility] Last Admin: 04/20/19 10:47 Dose: 1 applic Sodium Chloride (Sodium Chloride Tablet -) 1 gm PO DAILY [facility] Last Admin: 04/20/19 17:40 Dose: 1 gm Tiotropium [place] (Spiriva Respimat) 2 puff IH DAILY [facility] Last Admin: 04/20/19 10:45 Dose: 2 puff Zinc Oxide/Panthenol/Vitamin E (Balmex Cream -) 1 applic TP BID [facility] Last Admin: 04/20/19 10:47 Dose: 1 applic - Objective Vital Signs: Vital Signs Temperature 98.1 F 04/20/19 16:50 Pulse Rate 99 H 04/20/19 16:50 Respiratory Rate 20 04/20/19 16:50 Blood Pressure 153/66 04/20/19 16:50 O2 Sat by Pulse Oximetry (%) 95 04/20/19 09:00 Labs: CBC, BMP 04/20/19 06:35 04/20/19 06:35 INR, PTT INR 1.03 (0.83-1.09) 04/06/19 19:45 Problem List - Problems (1) Pulmonary hypertension Code(s): I27.20 - PULMONARY HYPERTENSION, UNSPECIFIED (2) GERD (gastroesophageal reflux disease) Code(s): K21.9 - GASTRO-ESOPHAGEAL REFLUX DISEASE WITHOUT ESOPHAGITIS (3) Acute diastolic (congestive) heart failure Code(s): I50.31 - ACUTE DIASTOLIC (CONGESTIVE) HEART FAILURE (4) Acute exacerbation of chronic obstructive pulmonary disease Code(s): J44.1 - CHRONIC OBSTRUCTIVE PULMONARY DISEASE W (ACUTE) EXACERBATION (5) Acute hypoxemic respiratory failure Code(s): J96.01 - ACUTE RESPIRATORY FAILURE WITH HYPOXIA (6) Bipolar 1 disorder Code(s): F31.9 - BIPOLAR DISORDER, UNSPECIFIED (7) Bronchiectasis Code(s): J47.9 - BRONCHIECTASIS, UNCOMPLICATED (8) CHF (congestive heart failure), NYHA class II Code(s): I50.9 - HEART FAILURE, UNSPECIFIED (9) Chronic kidney disease (CKD) Code(s): N18.9 - CHRONIC KIDNEY DISEASE, UNSPECIFIED (10) Elevated troponin Code(s): R74.8 - ABNORMAL LEVELS OF OTHER SERUM ENZYMES (11) Emphysema of lung Code(s): J43.9 - EMPHYSEMA, UNSPECIFIED (12) Hypotension Code(s): I95.9 - HYPOTENSION, UNSPECIFIED (13) HTN (hypertension) Code(s): I10 - ESSENTIAL (PRIMARY) HYPERTENSION (14) Insomnia disorder Code(s): G47.00 - INSOMNIA, UNSPECIFIED
[2019-04-21] MEDS: NYSTATIN 500,000 UNITS/5 ML SUSPENSION PO SCH ×4 (00:56→17:33)
[2019-04-21] MEDS ORDERED: PT OWN MED DRAWER 7, Y5N ONE ×3 (01:32→20:35)
[2019-04-21] MEDS: SULFAMETHOXAZOLE/TRIMETHOPRIM 320 MG in DEXTROSE 5%-WATER - 500 ML IVPB SCH ×2 (01:40→10:37)
[2019-04-21 08:27] LABS: BASO % 0.1 % (0-2.0); HEMATOCRIT 36.6 % (35.4-49); HEMOGLOBIN 12.3 GM/dL (11.7-16.9); LYMPH % 1.8 % (8-40); MCH 31.2 pg (25.7-33.7); MCHC 33.6 g/dl (32.0-35.9); MEAN PLT VOLUME 8.6 fl (7.5-11.1); MONO % 2.5 % (3.8-10.2); NEUT % 95.6 % (42.8-82.8); PLATELET COUNT 209 K/MM3 (134-434); RBC 3.93 M/mm3 (4.00-5.60); RDW 16.2 % (11.9-15.9); WHITE BLOOD COUNT 24.8 K/mm3 (4.0-10.0)
[2019-04-21 08:28] LABS: BLOOD UREA NITROGEN 48.2 mg/dL (7-18); CALCIUM 8.6 mg/dL (8.5-10.1); CREATININE 1.3 mg/dL (0.55-1.3); MAGNESIUM 2.2 mg/dL (1.8-2.4); PHOSPHOROUS 3.1 mg/dL (2.5-4.9); POTASSIUM 3.7 mmol/L (3.5-5.1)
--- NOTE | 2019-04-21 09:44 | PN ---
Progress Note (short form) - Note Progress Note: PULMONARY States breathing about the same. Still some cough and wheezing. Vital Signs Period Temp Pulse Resp BP Sys/[place] Pulse Ox Last 24 Hr 97.4 F-98.4 F 89-99 20-20 120-153/62-70 95 Gen: NAD at rest Heart: RRR Lung: scattered rhonchi Abd: soft, nontender Ext: no edema CBC, BMP 04/21/19 06:20 04/21/19 06:20 Active Medications Acetaminophen (Tylenol -) 650 mg PO Q4H PRN PRN Reason: PAIN LEVEL 1-5 Last Admin: 04/16/19 22:14 Dose: 650 mg Ascorbic Acid (Vitamin C -) 500 mg PO BID [facility] Last Admin: 04/20/19 21:38 Dose: 500 mg Budesonide/Formoterol Fumarate (Symbicort 160/4.5mcg -) 2 puff IH BID [facility] Last Admin: 04/20/19 21:38 Dose: 2 puff Carbidopa/Levodopa (Sinemet 25/100 -) 1 each PO TID@0900,1200,1700 [facility] Last Admin: 04/20/19 17:44 Dose: 1 each Dronabinol (Marinol -) 5 mg PO DAILY@1130 [facility] Stop: 04/24/19 11:31 Last Admin: 04/20/19 10:41 Dose: 5 mg Trimethoprim/Sulfamethoxazole (320 mg/ Dextrose) 520 mls @ 346.667 mls/hr IVPB Q8H-IV [facility] Last Admin: 04/21/19 01:40 Dose: 346.667 mls/hr Melatonin (Melatonin) 5 mg PO HS PRN PRN Reason: INSOMNIA Last Admin: 04/18/19 21:49 Dose: 5 mg Methylprednisolone Sodium Succinate (Solu-Medrol -) 30 mg IVPUSH BID [facility] Last Admin: 04/20/19 21:38 Dose: 30 mg Metoprolol Succinate (Toprol Xl -) 25 mg PO DAILY [facility] Last Admin: 04/20/19 10:40 Dose: 25 mg Nystatin (Nystatin Oral Suspension -) 500,000 units PO Q6HPO [facility] Last Admin: 04/21/19 06:56 Dose: 500,000 units Pantoprazole Sodium (Protonix Iv) 40 mg IVPUSH BID [facility] Last Admin: 04/20/19 21:38 Dose: 40 mg Sertraline HCl 50 mg/ (Sertraline HCl 25 mg) 75 mg PO DAILY [facility] Last Admin: 04/20/19 10:39 Dose: 75 mg Silver Sulfadiazine (Silvadene -) 1 applic TP BID [facility] Last Admin: 04/20/19 23:34 Dose: 1 applic Sodium Chloride (Sodium Chloride Tablet -) 1 gm PO DAILY [facility] Last Admin: 04/20/19 17:40 Dose: 1 gm Tiotropium [place] (Spiriva Respimat) 2 puff IH DAILY [facility] Last Admin: 04/20/19 10:45 Dose: 2 puff Zinc Oxide/Panthenol/Vitamin E (Balmex Cream -) 1 applic TP BID [facility] Last Admin: 04/20/19 23:34 Dose: 1 applic A/P Acute COPD Exacerbation Chronic Hypoxic Respiratory Failure Severe Pulmonary HTN CAD Hyponatremia HTN - can change steroids to prednisone 40mg daily - inhaled bronchodilators standing and PRN - symbicort - O2 to keep SpO2 >90% - monitor lytes - DVT prophylaxis Problem List - Problems (1) COPD exacerbation Code(s): J44.1 - CHRONIC OBSTRUCTIVE PULMONARY DISEASE W (ACUTE) EXACERBATION
[2019-04-21] MEDS ORDERED: SERTRALINE HCL 50 MG TABLET (FP) ONE (10:07)
[2019-04-21] MEDS ORDERED: SERTRALINE HCL 25 MG TABLET (FP) ONE (10:07)
[2019-04-21] MEDS: predniSONE 20 MG TABLET (UD) PO SCH (10:18)
[2019-04-21] MEDS: ASCORBIC ACID 500 MG TABLET (FP) PO SCH ×2 (10:19→21:30)
[2019-04-21] MEDS: metoPROLOL SUCCINATE 25 MG TAB.SR.24H (FP) PO SCH (10:19)
[2019-04-21] MEDS: SODIUM CHLORIDE 1 GM TABLET PO SCH ×2 (10:19→21:30)
[2019-04-21] MEDS: BUDESONIDE/FORMETEROL FUMARATE 160/4.5 mcg INHALER IH SCH ×2 (10:20→21:43)
[2019-04-21] MEDS: TIOTROPIUM BROMIDE 2.5 MCG (SPIRIVA) RESPIMAT INHALER IH SCH (10:20)
[2019-04-21] MEDS: SERTRALINE HCL 50 MG, SERTRALINE HCL 25 MG PO SCH (10:20)
[2019-04-21] MEDS: ZINC OXIDE/PANTHENOL/VITAMIN E 56 GM TUBE TP SCH ×2 (10:21→21:38)
[2019-04-21] MEDS: PANTOPRAZOLE SODIUM 40 MG VIAL IVPUSH SCH ×2 (10:21→21:30)
[2019-04-21] MEDS: CARBIDOPA/LEVODOPA 25/100 TABLET (FP) PO SCH ×3 (10:37→17:32)
[2019-04-21 11:14] LABS: ANISOCYTOSIS 0; MACROCYTOSIS 0; PLATELET ESTIMATE NORMAL
--- NOTE | 2019-04-21 11:18 | PN ---
Progress Note (short form) - Note Progress Note: Renal follow up for hyponatremia Seen and examined at the bedside awake and alert no acute complaints no confusion, lethargy or seizures Vital Signs Temperature 98.4 F 04/20/19 20:03 Pulse Rate 90 04/20/19 20:03 Respiratory Rate 20 04/20/19 21:00 Blood Pressure 120/70 04/20/19 20:03 O2 Sat by Pulse Oximetry (%) 95 04/20/19 21:00 Intake & Output 04/18/19 04/19/19 04/20/19 04/21/19 23:59 23:59 23:59 23:59 Intake Total 2250 2120 1700 600 Output Total 600 350 Balance 1650 1770 1700 600 Weight 60.282 kg 60.963 kg 60.781 kg 60.963 kg NAD Course BS soft NT/ND no LE edema, clubbing or cyanosis CBC, BMP 04/21/19 06:20 04/21/19 06:20 Current Medications Acetaminophen (Tylenol -) 650 mg PO Q4H PRN PRN Reason: PAIN LEVEL 1-5 Last Admin: 04/16/19 22:14 Dose: 650 mg Ascorbic Acid (Vitamin C -) 500 mg PO BID [facility] Last Admin: 04/21/19 10:19 Dose: 500 mg Budesonide/Formoterol Fumarate (Symbicort 160/4.5mcg -) 2 puff IH BID [facility] Last Admin: 04/21/19 10:20 Dose: 2 puff Carbidopa/Levodopa (Sinemet 25/100 -) 1 each PO TID@0900,1200,1700 [facility] Last Admin: 04/21/19 10:37 Dose: 1 each Dronabinol (Marinol -) 5 mg PO DAILY@1130 [facility] Stop: 04/24/19 11:31 Last Admin: 04/20/19 10:41 Dose: 5 mg Trimethoprim/Sulfamethoxazole (320 mg/ Dextrose) 520 mls @ 346.667 mls/hr IVPB Q8H-IV [facility] Last Admin: 04/21/19 10:37 Dose: 346.667 mls/hr Melatonin (Melatonin) 5 mg PO HS PRN PRN Reason: INSOMNIA Last Admin: 04/18/19 21:49 Dose: 5 mg Metoprolol Succinate (Toprol Xl -) 25 mg PO DAILY [facility] Last Admin: 04/21/19 10:19 Dose: 25 mg Nystatin (Nystatin Oral Suspension -) 500,000 units PO Q6HPO [facility] Last Admin: 04/21/19 06:56 Dose: 500,000 units Pantoprazole Sodium (Protonix Iv) 40 mg IVPUSH BID [facility] Last Admin: 04/21/19 10:21 Dose: 40 mg Prednisone (Deltasone -) 40 mg PO DAILY [facility] Last Admin: 04/21/19 10:18 Dose: 40 mg Sertraline HCl 50 mg/ (Sertraline HCl 25 mg) 75 mg PO DAILY [facility] Last Admin: 04/21/19 10:20 Dose: 75 mg Silver Sulfadiazine (Silvadene -) 1 applic TP BID [facility] Last Admin: 04/20/19 23:34 Dose: 1 applic Sodium Chloride (Sodium Chloride Tablet -) 1 gm PO BID [facility] Last Admin: 04/21/19 10:19 Dose: 1 gm Tiotropium [place] (Spiriva Respimat) 2 puff IH DAILY [facility] Last Admin: 04/21/19 10:20 Dose: 2 puff Zinc Oxide/Panthenol/Vitamin E (Balmex Cream -) 1 applic TP BID [facility] Last Admin: 04/21/19 10:21 Dose: 1 applic 89 year old gentleman with history of COPD, Lung cancer, cardiomyopathy, CKD presented with cough and shortness of breath and noted to have worsening hyponatremia. 1. Hypovolemic hyponatremia from poor solute intake + diuretics in setting of D5W infusion with antibiotics 2. Respiratory failure 3. Bronchitis 4. Leukocytosis No acute indication for hypertonic saline. Serum Na continue to downtrend on high volume D5W infusion with antibiotic. Spoke to pharmacy and they are not able to concentrate it. Will need to consider changing to PO if possible to avoid excessive water infusion. Increase salt tabs to BID. Zack Saleem DO
[2019-04-21] MEDS: DRONABINOL 2.5 MG CAPSULE PO SCH (12:15)
--- NOTE | 2019-04-21 13:13 | PN ---
Progress Note, Physician History of Present Illness: still with some coughing weak - Current Medication List Current Medications: Active Medications Acetaminophen (Tylenol -) 650 mg PO Q4H PRN PRN Reason: PAIN LEVEL 1-5 Last Admin: 04/16/19 22:14 Dose: 650 mg Ascorbic Acid (Vitamin C -) 500 mg PO BID [facility] Last Admin: 04/21/19 10:19 Dose: 500 mg Budesonide/Formoterol Fumarate (Symbicort 160/4.5mcg -) 2 puff IH BID [facility] Last Admin: 04/21/19 10:20 Dose: 2 puff Carbidopa/Levodopa (Sinemet 25/100 -) 1 each PO TID@0900,1200,1700 [facility] Last Admin: 04/21/19 12:56 Dose: 1 each Dronabinol (Marinol -) 5 mg PO DAILY@1130 [facility] Stop: 04/24/19 11:31 Last Admin: 04/21/19 12:15 Dose: 5 mg Trimethoprim/Sulfamethoxazole (320 mg/ Dextrose) 520 mls @ 346.667 mls/hr IVPB Q8H-IV [facility] Last Admin: 04/21/19 10:37 Dose: 346.667 mls/hr Melatonin (Melatonin) 5 mg PO HS PRN PRN Reason: INSOMNIA Last Admin: 04/18/19 21:49 Dose: 5 mg Metoprolol Succinate (Toprol Xl -) 25 mg PO DAILY [facility] Last Admin: 04/21/19 10:19 Dose: 25 mg Nystatin (Nystatin Oral Suspension -) 500,000 units PO Q6HPO [facility] Last Admin: 04/21/19 12:16 Dose: 500,000 units Pantoprazole Sodium (Protonix Iv) 40 mg IVPUSH BID [facility] Last Admin: 04/21/19 10:21 Dose: 40 mg Prednisone (Deltasone -) 40 mg PO DAILY [facility] Last Admin: 04/21/19 10:18 Dose: 40 mg Sertraline HCl 50 mg/ (Sertraline HCl 25 mg) 75 mg PO DAILY [facility] Last Admin: 04/21/19 10:20 Dose: 75 mg Silver Sulfadiazine (Silvadene -) 1 applic TP BID [facility] Last Admin: 04/20/19 23:34 Dose: 1 applic Sodium Chloride (Sodium Chloride Tablet -) 1 gm PO BID [facility] Last Admin: 04/21/19 10:19 Dose: 1 gm Tiotropium [place] (Spiriva Respimat) 2 puff IH DAILY [facility] Last Admin: 04/21/19 10:20 Dose: 2 puff Zinc Oxide/Panthenol/Vitamin E (Balmex Cream -) 1 applic TP BID [facility] Last Admin: 04/21/19 10:21 Dose: 1 applic - Objective Vital Signs: Vital Signs Temperature 98.4 F 04/20/19 20:03 Pulse Rate 90 04/20/19 20:03 Respiratory Rate 20 04/20/19 21:00 Blood Pressure 120/70 04/20/19 20:03 O2 Sat by Pulse Oximetry (%) 95 04/20/19 21:00 Constitutional: Yes: No Distress, Calm Cardiovascular: Yes: S1, S2 Respiratory: Yes: Regular, On Nasal O2, Poor Air Entry Gastrointestinal: Yes: Normal Bowel Sounds, Soft Musculoskeletal: Yes: WNL Extremities: Yes: WNL Neurological: Yes: Alert Psychiatric: Yes: Alert Labs: CBC, BMP 04/21/19 06:20 04/21/19 06:20 INR, PTT INR 1.03 (0.83-1.09) 04/06/19 19:45 Assessment/Plan Problem List - Problems (1) Pulmonary hypertension Code(s): I27.20 - PULMONARY HYPERTENSION, UNSPECIFIED (2) GERD (gastroesophageal reflux disease) Code(s): K21.9 - GASTRO-ESOPHAGEAL REFLUX DISEASE WITHOUT ESOPHAGITIS (3) Acute diastolic (congestive) heart failure Code(s): I50.31 - ACUTE DIASTOLIC (CONGESTIVE) HEART FAILURE (4) Acute exacerbation of chronic obstructive pulmonary disease Code(s): J44.1 - CHRONIC OBSTRUCTIVE PULMONARY DISEASE W (ACUTE) EXACERBATION (5) Acute hypoxemic respiratory failure Code(s): J96.01 - ACUTE RESPIRATORY FAILURE WITH HYPOXIA (6) Bipolar 1 disorder Code(s): F31.9 - BIPOLAR DISORDER, UNSPECIFIED (7) Bronchiectasis Code(s): J47.9 - BRONCHIECTASIS, UNCOMPLICATED (8) CHF (congestive heart failure), NYHA class II Code(s): I50.9 - HEART FAILURE, UNSPECIFIED (9) Chronic kidney disease (CKD) Code(s): N18.9 - CHRONIC KIDNEY DISEASE, UNSPECIFIED (10) Elevated troponin Code(s): R74.8 - ABNORMAL LEVELS OF OTHER SERUM ENZYMES (11) Emphysema of lung Code(s): J43.9 - EMPHYSEMA, UNSPECIFIED (12) Hypotension Code(s): I95.9 - HYPOTENSION, UNSPECIFIED (13) HTN (hypertension) Code(s): I10 - ESSENTIAL (PRIMARY) HYPERTENSION (14) Insomnia disorder Code(s): G47.00 - INSOMNIA, UNSPECIFIED plan sputum cx noted bactrim incentive camacho rest as per the team nystatin swish and spit
[2019-04-21] MEDS: SILVER SULFADIAZINE 1% TOP CREAM 50 GM JAR TP SCH ×2 (14:30→21:38)
[2019-04-21] MEDS ORDERED: FUROSEMIDE 40 MG/4 ML INJECTABLE VIAL IVPUSH ONE (16:18)
--- NOTE | 2019-04-21 16:24 | PN ---
Progress Note, Physician History of Present Illness: Pt is very congested from fluid overload Pt has Hypovolemic hyponatremia from poor solute intake + diuretics in setting of D5W infusion with antibiotics discussed with ID WBC still high Renal FU noted Pt in view of congestion Need one dose of IV lasix spoke with Nurse on floor - Current Medication List Current Medications: Active Medications Acetaminophen (Tylenol -) 650 mg PO Q4H PRN PRN Reason: PAIN LEVEL 1-5 Last Admin: 04/16/19 22:14 Dose: 650 mg Ascorbic Acid (Vitamin C -) 500 mg PO BID [facility] Last Admin: 04/21/19 10:19 Dose: 500 mg Budesonide/Formoterol Fumarate (Symbicort 160/4.5mcg -) 2 puff IH BID [facility] Last Admin: 04/21/19 10:20 Dose: 2 puff Carbidopa/Levodopa (Sinemet 25/100 -) 1 each PO TID@0900,1200,1700 [facility] Last Admin: 04/21/19 12:56 Dose: 1 each Dronabinol (Marinol -) 5 mg PO DAILY@1130 [facility] Stop: 04/24/19 11:31 Last Admin: 04/21/19 12:15 Dose: 5 mg Furosemide (Lasix Injection -) 40 mg IVPUSH ONCE ONE Stop: 04/21/19 16:19 Melatonin (Melatonin) 5 mg PO HS PRN PRN Reason: INSOMNIA Last Admin: 04/18/19 21:49 Dose: 5 mg Metoprolol Succinate (Toprol Xl -) 25 mg PO DAILY [facility] Last Admin: 04/21/19 10:19 Dose: 25 mg Nystatin (Nystatin Oral Suspension -) 500,000 units PO Q6HPO [facility] Last Admin: 04/21/19 12:16 Dose: 500,000 units Pantoprazole Sodium (Protonix Iv) 40 mg IVPUSH BID [facility] Last Admin: 04/21/19 10:21 Dose: 40 mg Prednisone (Deltasone -) 40 mg PO DAILY [facility] Last Admin: 04/21/19 10:18 Dose: 40 mg Sertraline HCl 50 mg/ (Sertraline HCl 25 mg) 75 mg PO DAILY [facility] Last Admin: 04/21/19 10:20 Dose: 75 mg Silver Sulfadiazine (Silvadene -) 1 applic TP BID [facility] Last Admin: 04/21/19 14:30 Dose: 1 applic Sodium Chloride (Sodium Chloride Tablet -) 1 gm PO BID [facility] Last Admin: 04/21/19 10:19 Dose: 1 gm Tiotropium [place] (Spiriva Respimat) 2 puff IH DAILY [facility] Last Admin: 04/21/19 10:20 Dose: 2 puff Trimethoprim/Sulfamethoxazole (Bactrim Ds -) 1 each PO BID [facility] Zinc Oxide/Panthenol/Vitamin E (Balmex Cream -) 1 applic TP BID [facility] Last Admin: 04/21/19 10:21 Dose: 1 applic - Objective Vital Signs: Vital Signs Temperature 98 F 04/21/19 15:00 Pulse Rate 92 H 04/21/19 15:00 Respiratory Rate 20 04/21/19 15:00 Blood Pressure 146/73 04/21/19 15:00 O2 Sat by Pulse Oximetry (%) 95 04/20/19 21:00 Constitutional: Yes: Anxious Eyes: Yes: Conjunctiva Clear, EOM Intact HENT: Yes: Atraumatic, Normocephalic Neck: Yes: Supple, Trachea Midline Cardiovascular: Yes: Regular Rate and Rhythm, S1, S2 Respiratory: Yes: Regular, CTA Bilaterally Gastrointestinal: Yes: Normal Bowel Sounds, Soft Edema: No Peripheral Pulses WNL: Yes Labs: CBC, BMP 04/21/19 06:20 04/21/19 06:20 INR, PTT INR 1.03 (0.83-1.09) 04/06/19 19:45 Problem List - Problems (1) Pulmonary hypertension Code(s): I27.20 - PULMONARY HYPERTENSION, UNSPECIFIED (2) GERD (gastroesophageal reflux disease) Code(s): K21.9 - GASTRO-ESOPHAGEAL REFLUX DISEASE WITHOUT ESOPHAGITIS (3) Acute diastolic (congestive) heart failure Code(s): I50.31 - ACUTE DIASTOLIC (CONGESTIVE) HEART FAILURE (4) Acute exacerbation of chronic obstructive pulmonary disease Code(s): J44.1 - CHRONIC OBSTRUCTIVE PULMONARY DISEASE W (ACUTE) EXACERBATION (5) Acute hypoxemic respiratory failure Code(s): J96.01 - ACUTE RESPIRATORY FAILURE WITH HYPOXIA (6) Bipolar 1 disorder Code(s): F31.9 - BIPOLAR DISORDER, UNSPECIFIED (7) Bronchiectasis Code(s): J47.9 - BRONCHIECTASIS, UNCOMPLICATED (8) CHF (congestive heart failure), NYHA class II Code(s): I50.9 - HEART FAILURE, UNSPECIFIED (9) Chronic kidney disease (CKD) Code(s): N18.9 - CHRONIC KIDNEY DISEASE, UNSPECIFIED (10) Elevated troponin Code(s): R74.8 - ABNORMAL LEVELS OF OTHER SERUM ENZYMES (11) Emphysema of lung Code(s): J43.9 - EMPHYSEMA, UNSPECIFIED (12) Hypotension Code(s): I95.9 - HYPOTENSION, UNSPECIFIED (13) HTN (hypertension) Code(s): I10 - ESSENTIAL (PRIMARY) HYPERTENSION (14) Insomnia disorder Code(s): G47.00 - INSOMNIA, UNSPECIFIED Assessment/Plan (1) Pulmonary hypertension Code(s): I27.20 - PULMONARY HYPERTENSION, UNSPECIFIED (2) GERD (gastroesophageal reflux disease) Code(s): K21.9 - GASTRO-ESOPHAGEAL REFLUX DISEASE WITHOUT ESOPHAGITIS (3) Acute diastolic (congestive) heart failure Code(s): I50.31 - ACUTE DIASTOLIC (CONGESTIVE) HEART FAILURE (4) Acute exacerbation of chronic obstructive pulmonary disease Code(s): J44.1 - CHRONIC OBSTRUCTIVE PULMONARY DISEASE W (ACUTE) EXACERBATION (5) Acute hypoxemic respiratory failure Code(s): J96.01 - ACUTE RESPIRATORY FAILURE WITH HYPOXIA (6) Bipolar 1 disorder Code(s): F31.9 - BIPOLAR DISORDER, UNSPECIFIED (7) Bronchiectasis Code(s): J47.9 - BRONCHIECTASIS, UNCOMPLICATED (8) CHF (congestive heart failure), NYHA class II Code(s): I50.9 - HEART FAILURE, UNSPECIFIED (9) Chronic kidney disease (CKD) Code(s): N18.9 - CHRONIC KIDNEY DISEASE, UNSPECIFIED (10) Elevated troponin Code(s): R74.8 - ABNORMAL LEVELS OF OTHER SERUM ENZYMES (11) Emphysema of lung Code(s): J43.9 - EMPHYSEMA, UNSPECIFIED (12) Hypotension Code(s): I95.9 - HYPOTENSION, UNSPECIFIED (13) HTN (hypertension) Code(s): I10 - ESSENTIAL (PRIMARY) HYPERTENSION (14) Insomnia disorder Code(s): G47.00 - INSOMNIA, UNSPECIFIED Hypovolemic hyponatremia from poor solute intake + diuretics in setting of D5W infusion with antibiotics But today congested Lasix 40 Iv one dose
[2019-04-21] MEDS: SULFAMETHOXAZOLE/TRIMETHOPRIM 800MG/160MG D.S. TABLET PO SCH (21:30)
[2019-04-22] MEDS: NYSTATIN 500,000 UNITS/5 ML SUSPENSION PO SCH ×5 (00:06→23:19)
[2019-04-22 07:56] LABS: BASO % 0.1 % (0-2.0); HEMOGLOBIN 11.4 GM/dL (11.7-16.9); LYMPH % 2.3 % (8-40); MCH 31.8 pg (25.7-33.7); MCHC 34.6 g/dl (32.0-35.9); MEAN PLT VOLUME 8.6 fl (7.5-11.1); MONO % 3.6 % (3.8-10.2); PLATELET COUNT 179 K/MM3 (134-434); RBC 3.59 M/mm3 (4.00-5.60); WHITE BLOOD COUNT 19.2 K/mm3 (4.0-10.0)
[2019-04-22 08:39] LABS: BLOOD UREA NITROGEN 44.8 mg/dL (7-18); CALCIUM 8.5 mg/dL (8.5-10.1); CREATININE 1.2 mg/dL (0.55-1.3); POTASSIUM 3.7 mmol/L (3.5-5.1)
--- NOTE | 2019-04-22 09:20 | PN ---
Progress Note, Physician History of Present Illness: stable says feels much better breathing better - Current Medication List Current Medications: Active Medications Acetaminophen (Tylenol -) 650 mg PO Q4H PRN PRN Reason: PAIN LEVEL 1-5 Last Admin: 04/16/19 22:14 Dose: 650 mg Ascorbic Acid (Vitamin C -) 500 mg PO BID [facility] Last Admin: 04/21/19 21:30 Dose: 500 mg Budesonide/Formoterol Fumarate (Symbicort 160/4.5mcg -) 2 puff IH BID [facility] Last Admin: 04/21/19 21:43 Dose: 2 puff Carbidopa/Levodopa (Sinemet 25/100 -) 1 each PO TID@0900,1200,1700 [facility] Last Admin: 04/21/19 17:32 Dose: 1 each Dronabinol (Marinol -) 5 mg PO DAILY@1130 [facility] Stop: 04/24/19 11:31 Last Admin: 04/21/19 12:15 Dose: 5 mg Melatonin (Melatonin) 5 mg PO HS PRN PRN Reason: INSOMNIA Last Admin: 04/18/19 21:49 Dose: 5 mg Metoprolol Succinate (Toprol Xl -) 25 mg PO DAILY [facility] Last Admin: 04/21/19 10:19 Dose: 25 mg Nystatin (Nystatin Oral Suspension -) 500,000 units PO Q6HPO [facility] Last Admin: 04/22/19 05:37 Dose: 500,000 units Pantoprazole Sodium (Protonix Iv) 40 mg IVPUSH BID [facility] Last Admin: 04/21/19 21:30 Dose: 40 mg Prednisone (Deltasone -) 40 mg PO DAILY [facility] Last Admin: 04/21/19 10:18 Dose: 40 mg Sertraline HCl 50 mg/ (Sertraline HCl 25 mg) 75 mg PO DAILY [facility] Last Admin: 04/21/19 10:20 Dose: 75 mg Silver Sulfadiazine (Silvadene -) 1 applic TP BID [facility] Last Admin: 04/21/19 21:38 Dose: 1 applic Sodium Chloride (Sodium Chloride Tablet -) 1 gm PO BID [facility] Last Admin: 04/21/19 21:30 Dose: 1 gm Tiotropium [place] (Spiriva Respimat) 2 puff IH DAILY [facility] Last Admin: 04/21/19 10:20 Dose: 2 puff Trimethoprim/Sulfamethoxazole (Bactrim Ds -) 1 each PO BID [facility] Last Admin: 04/21/19 21:30 Dose: 1 each Zinc Oxide/Panthenol/Vitamin E (Balmex Cream -) 1 applic TP BID [facility] Last Admin: 04/21/19 21:38 Dose: 1 applic - Objective Vital Signs: Vital Signs Temperature 98.2 F 04/22/19 06:00 Pulse Rate 96 H 04/22/19 06:00 Respiratory Rate 22 H 04/22/19 06:00 Blood Pressure 115/61 04/22/19 06:00 O2 Sat by Pulse Oximetry (%) 95 04/21/19 21:00 Constitutional: Yes: No Distress, Calm Cardiovascular: Yes: S1, S2 Respiratory: Yes: Regular, On Nasal O2, Poor Air Entry Gastrointestinal: Yes: Normal Bowel Sounds, Soft Musculoskeletal: Yes: WNL Extremities: Yes: WNL Neurological: Yes: Alert, Oriented Psychiatric: Yes: Alert, Oriented Labs: CBC, BMP 04/22/19 06:13 04/22/19 06:13 INR, PTT INR 1.03 (0.83-1.09) 04/06/19 19:45 Assessment/Plan Problem List - Problems (1) Pulmonary hypertension Code(s): I27.20 - PULMONARY HYPERTENSION, UNSPECIFIED (2) GERD (gastroesophageal reflux disease) Code(s): K21.9 - GASTRO-ESOPHAGEAL REFLUX DISEASE WITHOUT ESOPHAGITIS (3) Acute diastolic (congestive) heart failure Code(s): I50.31 - ACUTE DIASTOLIC (CONGESTIVE) HEART FAILURE (4) Acute exacerbation of chronic obstructive pulmonary disease Code(s): J44.1 - CHRONIC OBSTRUCTIVE PULMONARY DISEASE W (ACUTE) EXACERBATION (5) Acute hypoxemic respiratory failure Code(s): J96.01 - ACUTE RESPIRATORY FAILURE WITH HYPOXIA (6) Bipolar 1 disorder Code(s): F31.9 - BIPOLAR DISORDER, UNSPECIFIED (7) Bronchiectasis Code(s): J47.9 - BRONCHIECTASIS, UNCOMPLICATED (8) CHF (congestive heart failure), NYHA class II Code(s): I50.9 - HEART FAILURE, UNSPECIFIED (9) Chronic kidney disease (CKD) Code(s): N18.9 - CHRONIC KIDNEY DISEASE, UNSPECIFIED (10) Elevated troponin Code(s): R74.8 - ABNORMAL LEVELS OF OTHER SERUM ENZYMES (11) Emphysema of lung Code(s): J43.9 - EMPHYSEMA, UNSPECIFIED (12) Hypotension Code(s): I95.9 - HYPOTENSION, UNSPECIFIED (13) HTN (hypertension) Code(s): I10 - ESSENTIAL (PRIMARY) HYPERTENSION (14) Insomnia disorder Code(s): G47.00 - INSOMNIA, UNSPECIFIED plan sputum cx noted bactrim incentive camacho rest as per the team nystatin swish and spit
[2019-04-22] MEDS ORDERED: SERTRALINE HCL 25 MG TABLET (FP) ONE (09:51)
[2019-04-22] MEDS ORDERED: SERTRALINE HCL 50 MG TABLET (FP) ONE (09:51)
--- NOTE | 2019-04-22 09:51 | PN ---
Progress Note (short form) - Note Progress Note: PULMONARY States breathing is better today. Feels chest is looser. Vital Signs Period Temp Pulse Resp BP Sys/[place] Pulse Ox Last 24 Hr 97.9 F-98.8 F 83-96 20-22 115-146/61-74 95 Gen: NAD at rest Heart: RRR Lung: bilateral rhonchi Abd: soft, nontender Ext: no edema CBC, BMP 04/22/19 06:13 04/22/19 06:13 Active Medications Acetaminophen (Tylenol -) 650 mg PO Q4H PRN PRN Reason: PAIN LEVEL 1-5 Last Admin: 04/16/19 22:14 Dose: 650 mg Ascorbic Acid (Vitamin C -) 500 mg PO BID [facility] Last Admin: 04/21/19 21:30 Dose: 500 mg Budesonide/Formoterol Fumarate (Symbicort 160/4.5mcg -) 2 puff IH BID [facility] Last Admin: 04/21/19 21:43 Dose: 2 puff Carbidopa/Levodopa (Sinemet 25/100 -) 1 each PO TID@0900,1200,1700 [facility] Last Admin: 04/21/19 17:32 Dose: 1 each Dronabinol (Marinol -) 5 mg PO DAILY@1130 [facility] Stop: 04/24/19 11:31 Last Admin: 04/21/19 12:15 Dose: 5 mg Melatonin (Melatonin) 5 mg PO HS PRN PRN Reason: INSOMNIA Last Admin: 04/18/19 21:49 Dose: 5 mg Metoprolol Succinate (Toprol Xl -) 25 mg PO DAILY [facility] Last Admin: 04/21/19 10:19 Dose: 25 mg Nystatin (Nystatin Oral Suspension -) 500,000 units PO Q6HPO [facility] Last Admin: 04/22/19 05:37 Dose: 500,000 units Pantoprazole Sodium (Protonix Iv) 40 mg IVPUSH BID [facility] Last Admin: 04/21/19 21:30 Dose: 40 mg Prednisone (Deltasone -) 40 mg PO DAILY [facility] Last Admin: 04/21/19 10:18 Dose: 40 mg Sertraline HCl 50 mg/ (Sertraline HCl 25 mg) 75 mg PO DAILY [facility] Last Admin: 04/21/19 10:20 Dose: 75 mg Silver Sulfadiazine (Silvadene -) 1 applic TP BID [facility] Last Admin: 04/21/19 21:38 Dose: 1 applic Sodium Chloride (Sodium Chloride Tablet -) 1 gm PO BID [facility] Last Admin: 04/21/19 21:30 Dose: 1 gm Tiotropium [place] (Spiriva Respimat) 2 puff IH DAILY [facility] Last Admin: 04/21/19 10:20 Dose: 2 puff Trimethoprim/Sulfamethoxazole (Bactrim Ds -) 1 each PO BID [facility] Last Admin: 04/21/19 21:30 Dose: 1 each Zinc Oxide/Panthenol/Vitamin E (Balmex Cream -) 1 applic TP BID [facility] Last Admin: 04/21/19 21:38 Dose: 1 applic A/P Acute COPD Exacerbation Chronic Hypoxic Respiratory Failure Severe Pulmonary HTN CAD Hyponatremia HTN - slow prednisone taper - inhaled bronchodilators standing and PRN - symbicort, spiriva - O2 to keep SpO2 >90% - monitor lytes - DVT prophylaxis Problem List - Problems (1) COPD exacerbation Code(s): J44.1 - CHRONIC OBSTRUCTIVE PULMONARY DISEASE W (ACUTE) EXACERBATION
[2019-04-22] MEDS ORDERED: PT OWN MED DRAWER 7, Y5N ONE (09:52)
[2019-04-22] MEDS: predniSONE 20 MG TABLET (UD) PO SCH (10:00)
[2019-04-22] MEDS: ASCORBIC ACID 500 MG TABLET (FP) PO SCH ×2 (10:00→22:47)
[2019-04-22] MEDS: SERTRALINE HCL 50 MG, SERTRALINE HCL 25 MG PO SCH (10:00)
[2019-04-22] MEDS: PANTOPRAZOLE SODIUM 40 MG VIAL IVPUSH SCH ×2 (10:00→22:48)
[2019-04-22] MEDS: SULFAMETHOXAZOLE/TRIMETHOPRIM 800MG/160MG D.S. TABLET PO SCH ×2 (10:00→22:48)
[2019-04-22] MEDS: metoPROLOL SUCCINATE 25 MG TAB.SR.24H (FP) PO SCH (10:00)
[2019-04-22] MEDS: SODIUM CHLORIDE 1 GM TABLET PO SCH ×2 (10:01→22:51)
[2019-04-22] MEDS: SILVER SULFADIAZINE 1% TOP CREAM 50 GM JAR TP SCH ×2 (10:01→22:50)
[2019-04-22] MEDS: ZINC OXIDE/PANTHENOL/VITAMIN E 56 GM TUBE TP SCH ×2 (10:01→22:53)
[2019-04-22] MEDS: BUDESONIDE/FORMETEROL FUMARATE 160/4.5 mcg INHALER IH SCH ×2 (10:02→22:52)
[2019-04-22] MEDS: TIOTROPIUM BROMIDE 2.5 MCG (SPIRIVA) RESPIMAT INHALER IH SCH (10:02)
[2019-04-22] MEDS: CARBIDOPA/LEVODOPA 25/100 TABLET (FP) PO SCH ×3 (10:23→18:01)
[2019-04-22] MEDS: ALBUTEROL SO4 0.083% IH SOL 2.5 MG/3 ML VIAL.NEB. NEB SCH ×3 (11:28→20:35)
[2019-04-22] MEDS: DRONABINOL 2.5 MG CAPSULE PO SCH (12:30)
--- NOTE | 2019-04-22 12:55 | PN ---
Progress Note (short form) - Note Progress Note: Renal follow up for hyponatremia Seen and examined at the bedside awake and alert feels better now off IV bactrium no shortness of breath or chest pain making urine oral intake remains poor Vital Signs Temperature 98.2 F 04/22/19 06:00 Pulse Rate 96 H 04/22/19 06:00 Respiratory Rate 22 H 04/22/19 06:00 Blood Pressure 115/61 04/22/19 06:00 O2 Sat by Pulse Oximetry (%) 95 04/21/19 21:00 Intake & Output 04/19/19 04/20/19 04/21/19 04/22/19 23:59 23:59 23:59 23:59 Intake Total 2120 1700 1100 Output Total 350 Balance 1770 1700 1100 Weight 60.963 kg 60.781 kg 60.963 kg 59.738 kg NAD Course BS soft NT/ND no LE edema, clubbing or cyanosis CBC, BMP 04/22/19 06:13 04/22/19 06:13 Current Medications Acetaminophen (Tylenol -) 650 mg PO Q4H PRN PRN Reason: PAIN LEVEL 1-5 Last Admin: 04/16/19 22:14 Dose: 650 mg Albuterol Sulfate (Ventolin 0.083% Nebulizer Soln -) 1 amp NEB RQID [facility] Last Admin: 04/22/19 11:28 Dose: 1 amp Albuterol Sulfate (Ventolin 0.083% Nebulizer Soln -) 1 amp NEB Q4H PRN PRN Reason: SHORT OF BREATH/WHEEZING Ascorbic Acid (Vitamin C -) 500 mg PO BID [facility] Last Admin: 04/22/19 10:00 Dose: 500 mg Budesonide/Formoterol Fumarate (Symbicort 160/4.5mcg -) 2 puff IH BID [facility] Last Admin: 04/22/19 10:02 Dose: 2 puff Carbidopa/Levodopa (Sinemet 25/100 -) 1 each PO TID@0900,1200,1700 [facility] Last Admin: 04/22/19 12:31 Dose: 1 each Dronabinol (Marinol -) 5 mg PO DAILY@1130 [facility] Stop: 04/24/19 11:31 Last Admin: 04/22/19 12:30 Dose: 5 mg Melatonin (Melatonin) 5 mg PO HS PRN PRN Reason: INSOMNIA Last Admin: 04/18/19 21:49 Dose: 5 mg Metoprolol Succinate (Toprol Xl -) 25 mg PO DAILY [facility] Last Admin: 04/22/19 10:00 Dose: 25 mg Nystatin (Nystatin Oral Suspension -) 500,000 units PO Q6HPO [facility] Last Admin: 04/22/19 12:31 Dose: 500,000 units Pantoprazole Sodium (Protonix Iv) 40 mg IVPUSH BID [facility] Last Admin: 04/22/19 10:00 Dose: 40 mg Prednisone (Deltasone -) 40 mg PO DAILY [facility] Last Admin: 04/22/19 10:00 Dose: 40 mg Sertraline HCl 50 mg/ (Sertraline HCl 25 mg) 75 mg PO DAILY [facility] Last Admin: 04/22/19 10:00 Dose: 75 mg Silver Sulfadiazine (Silvadene -) 1 applic TP BID [facility] Last Admin: 04/22/19 10:01 Dose: 1 applic Sodium Chloride (Sodium Chloride Tablet -) 1 gm PO BID [facility] Last Admin: 04/22/19 10:01 Dose: 1 gm Tiotropium [place] (Spiriva Respimat) 2 puff IH DAILY [facility] Last Admin: 04/22/19 10:02 Dose: 2 puff Trimethoprim/Sulfamethoxazole (Bactrim Ds -) 1 each PO BID [facility] Last Admin: 04/22/19 10:00 Dose: 1 each Zinc Oxide/Panthenol/Vitamin E (Balmex Cream -) 1 applic TP BID [facility] Last Admin: 04/22/19 10:01 Dose: 1 applic 89 year old gentleman with history of COPD, Lung cancer, cardiomyopathy, CKD presented with cough and shortness of breath and noted to have worsening hyponatremia. 1. hyponatremia from poor solute intake + diuretics in setting of D5W infusion with antibiotics 2. Respiratory failure 3. Bronchitis 4. Leukocytosis Serum Na with slight improvement. Now off large volume D5W infusion Maintain strict fluid restriction and salt tabs BID. Trend Na daily. No acute indication for hypertonic saline. Zack Saleem DO
[2019-04-22 14:07] LABS: ANISOCYTOSIS 0; MACROCYTOSIS 0; PLATELET ESTIMATE NORMAL
--- NOTE | 2019-04-22 16:00 | PN ---
Progress Note (short form) - Note Progress Note: s: sob improving. no chest pain, palps, dizziness, edema. Current Medications Acetaminophen (Tylenol -) 650 mg PO Q4H PRN PRN Reason: PAIN LEVEL 1-5 Last Admin: 04/16/19 22:14 Dose: 650 mg Albuterol Sulfate (Ventolin 0.083% Nebulizer Soln -) 1 amp NEB RQID [facility] Last Admin: 04/22/19 15:33 Dose: 1 amp Albuterol Sulfate (Ventolin 0.083% Nebulizer Soln -) 1 amp NEB Q4H PRN PRN Reason: SHORT OF BREATH/WHEEZING Ascorbic Acid (Vitamin C -) 500 mg PO BID [facility] Last Admin: 04/22/19 10:00 Dose: 500 mg Budesonide/Formoterol Fumarate (Symbicort 160/4.5mcg -) 2 puff IH BID [facility] Last Admin: 04/22/19 10:02 Dose: 2 puff Carbidopa/Levodopa (Sinemet 25/100 -) 1 each PO TID@0900,1200,1700 [facility] Last Admin: 04/22/19 12:31 Dose: 1 each Dronabinol (Marinol -) 5 mg PO DAILY@1130 [facility] Stop: 04/24/19 11:31 Last Admin: 04/22/19 12:30 Dose: 5 mg Melatonin (Melatonin) 5 mg PO HS PRN PRN Reason: INSOMNIA Last Admin: 04/18/19 21:49 Dose: 5 mg Metoprolol Succinate (Toprol Xl -) 25 mg PO DAILY [facility] Last Admin: 04/22/19 10:00 Dose: 25 mg Nystatin (Nystatin Oral Suspension -) 500,000 units PO Q6HPO [facility] Last Admin: 04/22/19 12:31 Dose: 500,000 units Pantoprazole Sodium (Protonix Iv) 40 mg IVPUSH BID [facility] Last Admin: 04/22/19 10:00 Dose: 40 mg Prednisone (Deltasone -) 40 mg PO DAILY [facility] Last Admin: 04/22/19 10:00 Dose: 40 mg Sertraline HCl 50 mg/ (Sertraline HCl 25 mg) 75 mg PO DAILY [facility] Last Admin: 04/22/19 10:00 Dose: 75 mg Silver Sulfadiazine (Silvadene -) 1 applic TP BID [facility] Last Admin: 04/22/19 10:01 Dose: 1 applic Sodium Chloride (Sodium Chloride Tablet -) 1 gm PO BID [facility] Last Admin: 04/22/19 10:01 Dose: 1 gm Tiotropium [place] (Spiriva Respimat) 2 puff IH DAILY [facility] Last Admin: 04/22/19 10:02 Dose: 2 puff Trimethoprim/Sulfamethoxazole (Bactrim Ds -) 1 each PO BID [facility] Last Admin: 04/22/19 10:00 Dose: 1 each Zinc Oxide/Panthenol/Vitamin E (Balmex Cream -) 1 applic TP BID [facility] Last Admin: 04/22/19 10:01 Dose: 1 applic Vital Signs Period Temp Pulse Resp BP Sys/[place] Pulse Ox Last 24 Hr 97.9 F-98.3 F 87-96 20-22 115-135/61-74 95-95 Constitutional: Yes: Well Nourished, No Distress, Calm Cardiovascular: Yes: Regular Rate and Rhythm, S1, S2. No: JVD, Gallop, Murmur Respiratory: Yes: Regular, Rhonchi. No: Accessory Muscle Use Extremities: No: Cold Edema: No Neurological: Yes: Alert, Oriented Psychiatric: No: Agitated no jaundice diaphoresis Assessment/Plan echo 02/2019 tds, nl LV function, RV not well visualized, severe pujlm HTN >60 mmHg RVSP stress echo 04/07: apical ischemia a.e. COPD, acute HFpEF - stable sob - monitor volume status - received IV lasix yesterday, euvolemic today - steroids and BDs per pulm elevated trop: - borderline trop, flat trend, not c/w acs - EKG no ischemic changes history of stress induced CM: with mild acute on chronic diastolic CHF exacerbation in setting of increased IVF - nl EF on echo 02/2019 - cont lisinopril, bystolic DORIS on CKD: - baseline creat 1.4-1.9 - renal fxn improved here PSVT/PAT: - brief runs, off tele now - cont bb CAD: - +apical ischemia 03/2018 managed medically - no angina - cont aspirin, statin, bystolic HTN: - stable, cont current meds pulm HTN: - 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
--- NOTE | 2019-04-22 21:47 | PN ---
Progress Note, Physician History of Present Illness: Pt is off IV bactrim less Volume overload - Current Medication List Current Medications: Active Medications Acetaminophen (Tylenol -) 650 mg PO Q4H PRN PRN Reason: PAIN LEVEL 1-5 Last Admin: 04/16/19 22:14 Dose: 650 mg Albuterol Sulfate (Ventolin 0.083% Nebulizer Soln -) 1 amp NEB RQID [facility] Last Admin: 04/22/19 20:35 Dose: 1 amp Albuterol Sulfate (Ventolin 0.083% Nebulizer Soln -) 1 amp NEB Q4H PRN PRN Reason: SHORT OF BREATH/WHEEZING Ascorbic Acid (Vitamin C -) 500 mg PO BID [facility] Last Admin: 04/22/19 10:00 Dose: 500 mg Budesonide/Formoterol Fumarate (Symbicort 160/4.5mcg -) 2 puff IH BID [facility] Last Admin: 04/22/19 10:02 Dose: 2 puff Carbidopa/Levodopa (Sinemet 25/100 -) 1 each PO TID@0900,1200,1700 [facility] Last Admin: 04/22/19 18:01 Dose: 1 each Dronabinol (Marinol -) 5 mg PO DAILY@1130 [facility] Stop: 04/24/19 11:31 Last Admin: 04/22/19 12:30 Dose: 5 mg Melatonin (Melatonin) 5 mg PO HS PRN PRN Reason: INSOMNIA Last Admin: 04/18/19 21:49 Dose: 5 mg Metoprolol Succinate (Toprol Xl -) 25 mg PO DAILY [facility] Last Admin: 04/22/19 10:00 Dose: 25 mg Nystatin (Nystatin Oral Suspension -) 500,000 units PO Q6HPO [facility] Last Admin: 04/22/19 18:01 Dose: 500,000 units Pantoprazole Sodium (Protonix Iv) 40 mg IVPUSH BID [facility] Last Admin: 04/22/19 10:00 Dose: 40 mg Prednisone (Deltasone -) 40 mg PO DAILY [facility] Last Admin: 04/22/19 10:00 Dose: 40 mg Sertraline HCl 50 mg/ (Sertraline HCl 25 mg) 75 mg PO DAILY [facility] Last Admin: 04/22/19 10:00 Dose: 75 mg Silver Sulfadiazine (Silvadene -) 1 applic TP BID [facility] Last Admin: 04/22/19 10:01 Dose: 1 applic Sodium Chloride (Sodium Chloride Tablet -) 1 gm PO BID [facility] Last Admin: 04/22/19 10:01 Dose: 1 gm Tiotropium [place] (Spiriva Respimat) 2 puff IH DAILY [facility] Last Admin: 04/22/19 10:02 Dose: 2 puff Trimethoprim/Sulfamethoxazole (Bactrim Ds -) 1 each PO BID [facility] Last Admin: 04/22/19 10:00 Dose: 1 each Zinc Oxide/Panthenol/Vitamin E (Balmex Cream -) 1 applic TP BID [facility] Last Admin: 04/22/19 10:01 Dose: 1 applic - Objective Vital Signs: Vital Signs Temperature 98.9 F 04/22/19 18:30 Pulse Rate 101 H 04/22/19 18:30 Respiratory Rate 20 04/22/19 18:30 Blood Pressure 109/57 L 04/22/19 18:30 O2 Sat by Pulse Oximetry (%) 95 04/22/19 10:00 Constitutional: Yes: Calm Eyes: Yes: Conjunctiva Clear, EOM Intact HENT: Yes: Atraumatic, Normocephalic Neck: Yes: Supple, Trachea Midline Cardiovascular: Yes: Regular Rate and Rhythm, S1, S2 Respiratory: Yes: Regular, CTA Bilaterally Gastrointestinal: Yes: Normal Bowel Sounds, Soft Edema: No Peripheral Pulses WNL: Yes Labs: CBC, BMP 04/22/19 06:13 04/22/19 06:13 INR, PTT INR 1.03 (0.83-1.09) 04/06/19 19:45 Problem List - Problems (1) Pulmonary hypertension Code(s): I27.20 - PULMONARY HYPERTENSION, UNSPECIFIED (2) GERD (gastroesophageal reflux disease) Code(s): K21.9 - GASTRO-ESOPHAGEAL REFLUX DISEASE WITHOUT ESOPHAGITIS (3) Acute diastolic (congestive) heart failure Code(s): I50.31 - ACUTE DIASTOLIC (CONGESTIVE) HEART FAILURE (4) Acute exacerbation of chronic obstructive pulmonary disease Code(s): J44.1 - CHRONIC OBSTRUCTIVE PULMONARY DISEASE W (ACUTE) EXACERBATION (5) Acute hypoxemic respiratory failure Code(s): J96.01 - ACUTE RESPIRATORY FAILURE WITH HYPOXIA (6) Bipolar 1 disorder Code(s): F31.9 - BIPOLAR DISORDER, UNSPECIFIED (7) Bronchiectasis Code(s): J47.9 - BRONCHIECTASIS, UNCOMPLICATED (8) CHF (congestive heart failure), NYHA class II Code(s): I50.9 - HEART FAILURE, UNSPECIFIED (9) Chronic kidney disease (CKD) Code(s): N18.9 - CHRONIC KIDNEY DISEASE, UNSPECIFIED (10) Elevated troponin Code(s): R74.8 - ABNORMAL LEVELS OF OTHER SERUM ENZYMES (11) Emphysema of lung Code(s): J43.9 - EMPHYSEMA, UNSPECIFIED (12) Hypotension Code(s): I95.9 - HYPOTENSION, UNSPECIFIED (13) HTN (hypertension) Code(s): I10 - ESSENTIAL (PRIMARY) HYPERTENSION (14) Insomnia disorder Code(s): G47.00 - INSOMNIA, UNSPECIFIED Assessment/Plan (1) Pulmonary hypertension Code(s): I27.20 - PULMONARY HYPERTENSION, UNSPECIFIED (2) GERD (gastroesophageal reflux disease) Code(s): K21.9 - GASTRO-ESOPHAGEAL REFLUX DISEASE WITHOUT ESOPHAGITIS (3) Acute diastolic (congestive) heart failure Code(s): I50.31 - ACUTE DIASTOLIC (CONGESTIVE) HEART FAILURE (4) Acute exacerbation of chronic obstructive pulmonary disease Code(s): J44.1 - CHRONIC OBSTRUCTIVE PULMONARY DISEASE W (ACUTE) EXACERBATION (5) Acute hypoxemic respiratory failure Code(s): J96.01 - ACUTE RESPIRATORY FAILURE WITH HYPOXIA (6) Bipolar 1 disorder Code(s): F31.9 - BIPOLAR DISORDER, UNSPECIFIED (7) Bronchiectasis Code(s): J47.9 - BRONCHIECTASIS, UNCOMPLICATED (8) CHF (congestive heart failure), NYHA class II Code(s): I50.9 - HEART FAILURE, UNSPECIFIED (9) Chronic kidney disease (CKD) Code(s): N18.9 - CHRONIC KIDNEY DISEASE, UNSPECIFIED (10) Elevated troponin Code(s): R74.8 - ABNORMAL LEVELS OF OTHER SERUM ENZYMES (11) Emphysema of lung Code(s): J43.9 - EMPHYSEMA, UNSPECIFIED (12) Hypotension Code(s): I95.9 - HYPOTENSION, UNSPECIFIED (13) HTN (hypertension) Code(s): I10 - ESSENTIAL (PRIMARY) HYPERTENSION (14) Insomnia disorder Code(s): G47.00 - INSOMNIA, UNSPECIFIED Hypovolemic hyponatremia from poor solute intake + diuretics in setting of D5W infusion with antibiotics Pt is off IV bactrim Less Volume over load FU NA level less congested after lasix dose
[2019-04-22] MEDS: MELATONIN 5 MG TABLETS PO PRN (23:18)
[2019-04-23] MEDS: ALBUTEROL SO4 0.083% IH SOL 2.5 MG/3 ML VIAL.NEB. NEB PRN (05:46)
[2019-04-23] MEDS: NYSTATIN 500,000 UNITS/5 ML SUSPENSION PO SCH ×4 (06:18→23:40)
[2019-04-23 07:40] LABS: BLOOD UREA NITROGEN 51.6 mg/dL (7-18); CALCIUM 9.1 mg/dL (8.5-10.1); CREATININE 1.2 mg/dL (0.55-1.3); POTASSIUM 3.4 mmol/L (3.5-5.1)
[2019-04-23] MEDS: ALBUTEROL SO4 0.083% IH SOL 2.5 MG/3 ML VIAL.NEB. NEB SCH ×4 (08:28→20:30)
[2019-04-23] MEDS ORDERED: POTASSIUM CHLORIDE TABS 20 MEQ TABLET.ER (FP) PO ONE (08:40)
[2019-04-23] MEDS ORDERED: SERTRALINE HCL 25 MG TABLET (FP) ONE (09:49)
[2019-04-23] MEDS ORDERED: SERTRALINE HCL 50 MG TABLET (FP) ONE (09:49)
[2019-04-23] MEDS: PANTOPRAZOLE SODIUM 40 MG VIAL IVPUSH SCH ×2 (10:24→23:36)
[2019-04-23] MEDS: ASCORBIC ACID 500 MG TABLET (FP) PO SCH ×2 (10:26→23:36)
[2019-04-23] MEDS: metoPROLOL SUCCINATE 25 MG TAB.SR.24H (FP) PO SCH (10:26)
[2019-04-23] MEDS: predniSONE 20 MG TABLET (UD) PO SCH (10:26)
[2019-04-23] MEDS: SERTRALINE HCL 50 MG, SERTRALINE HCL 25 MG PO SCH (10:26)
[2019-04-23] MEDS: SULFAMETHOXAZOLE/TRIMETHOPRIM 800MG/160MG D.S. TABLET PO SCH ×2 (10:26→23:36)
[2019-04-23] MEDS: SODIUM CHLORIDE 1 GM TABLET PO SCH ×2 (10:28→23:35)
[2019-04-23] MEDS: TIOTROPIUM BROMIDE 2.5 MCG (SPIRIVA) RESPIMAT INHALER IH SCH (10:28)
[2019-04-23] MEDS: BUDESONIDE/FORMETEROL FUMARATE 160/4.5 mcg INHALER IH SCH ×2 (10:28→23:35)
[2019-04-23] MEDS: SILVER SULFADIAZINE 1% TOP CREAM 50 GM JAR TP SCH ×2 (10:28→23:37)
[2019-04-23] MEDS: CARBIDOPA/LEVODOPA 25/100 TABLET (FP) PO SCH ×3 (10:54→17:53)
[2019-04-23] MEDS: ZINC OXIDE/PANTHENOL/VITAMIN E 56 GM TUBE TP SCH ×2 (10:55→23:36)
--- NOTE | 2019-04-23 11:48 | PN ---
Progress Note, Physician - Current Medication List Current Medications: Active Medications Acetaminophen (Tylenol -) 650 mg PO Q4H PRN PRN Reason: PAIN LEVEL 1-5 Last Admin: 04/16/19 22:14 Dose: 650 mg Albuterol Sulfate (Ventolin 0.083% Nebulizer Soln -) 1 amp NEB RQID [facility] Last Admin: 04/23/19 08:28 Dose: 1 amp Albuterol Sulfate (Ventolin 0.083% Nebulizer Soln -) 1 amp NEB Q4H PRN PRN Reason: SHORT OF BREATH/WHEEZING Last Admin: 04/23/19 05:46 Dose: 1 amp Ascorbic Acid (Vitamin C -) 500 mg PO BID [facility] Last Admin: 04/23/19 10:26 Dose: 500 mg Budesonide/Formoterol Fumarate (Symbicort 160/4.5mcg -) 2 puff IH BID [facility] Last Admin: 04/23/19 10:28 Dose: 2 puff Carbidopa/Levodopa (Sinemet 25/100 -) 1 each PO TID@0900,1200,1700 [facility] Last Admin: 04/23/19 10:54 Dose: 1 each Dronabinol (Marinol -) 5 mg PO DAILY@1130 [facility] Stop: 04/24/19 11:31 Last Admin: 04/22/19 12:30 Dose: 5 mg Melatonin (Melatonin) 5 mg PO HS PRN PRN Reason: INSOMNIA Last Admin: 04/22/19 23:18 Dose: 5 mg Metoprolol Succinate (Toprol Xl -) 25 mg PO DAILY [facility] Last Admin: 04/23/19 10:26 Dose: 25 mg Nystatin (Nystatin Oral Suspension -) 500,000 units PO Q6HPO [facility] Last Admin: 04/23/19 06:18 Dose: 500,000 units Pantoprazole Sodium (Protonix Iv) 40 mg IVPUSH BID [facility] Last Admin: 04/23/19 10:24 Dose: 40 mg Prednisone (Deltasone -) 40 mg PO DAILY [facility] Last Admin: 04/23/19 10:26 Dose: 40 mg Sertraline HCl 50 mg/ (Sertraline HCl 25 mg) 75 mg PO DAILY [facility] Last Admin: 04/23/19 10:26 Dose: 75 mg Silver Sulfadiazine (Silvadene -) 1 applic TP BID [facility] Last Admin: 04/23/19 10:28 Dose: 1 applic Sodium Chloride (Sodium Chloride Tablet -) 1 gm PO BID [facility] Last Admin: 04/23/19 10:28 Dose: 1 gm Tiotropium [place] (Spiriva Respimat) 2 puff IH DAILY [facility] Last Admin: 04/23/19 10:28 Dose: 2 puff Trimethoprim/Sulfamethoxazole (Bactrim Ds -) 1 each PO BID [facility] Last Admin: 04/23/19 10:26 Dose: 1 each Zinc Oxide/Panthenol/Vitamin E (Balmex Cream -) 1 applic TP BID [facility] Last Admin: 04/23/19 10:55 Dose: 1 applic - Objective Vital Signs: Vital Signs Temperature 98.9 F 04/22/19 18:30 Pulse Rate 103 H 04/23/19 05:30 Respiratory Rate 22 H 04/23/19 05:30 Blood Pressure 122/76 04/23/19 05:30 O2 Sat by Pulse Oximetry (%) 94 L 04/22/19 21:00 Labs: CBC, BMP 04/22/19 06:13 04/23/19 06:30 INR, PTT INR 1.03 (0.83-1.09) 04/06/19 19:45 Problem List - Problems (1) Pulmonary hypertension Code(s): I27.20 - PULMONARY HYPERTENSION, UNSPECIFIED (2) GERD (gastroesophageal reflux disease) Code(s): K21.9 - GASTRO-ESOPHAGEAL REFLUX DISEASE WITHOUT ESOPHAGITIS (3) Acute diastolic (congestive) heart failure Code(s): I50.31 - ACUTE DIASTOLIC (CONGESTIVE) HEART FAILURE (4) Acute exacerbation of chronic obstructive pulmonary disease Code(s): J44.1 - CHRONIC OBSTRUCTIVE PULMONARY DISEASE W (ACUTE) EXACERBATION (5) Acute hypoxemic respiratory failure Code(s): J96.01 - ACUTE RESPIRATORY FAILURE WITH HYPOXIA (6) Bipolar 1 disorder Code(s): F31.9 - BIPOLAR DISORDER, UNSPECIFIED (7) Bronchiectasis Code(s): J47.9 - BRONCHIECTASIS, UNCOMPLICATED (8) CHF (congestive heart failure), NYHA class II Code(s): I50.9 - HEART FAILURE, UNSPECIFIED (9) Chronic kidney disease (CKD) Code(s): N18.9 - CHRONIC KIDNEY DISEASE, UNSPECIFIED (10) Elevated troponin Code(s): R74.8 - ABNORMAL LEVELS OF OTHER SERUM ENZYMES (11) Emphysema of lung Code(s): J43.9 - EMPHYSEMA, UNSPECIFIED (12) Hypotension Code(s): I95.9 - HYPOTENSION, UNSPECIFIED (13) HTN (hypertension) Code(s): I10 - ESSENTIAL (PRIMARY) HYPERTENSION (14) Insomnia disorder Code(s): G47.00 - INSOMNIA, UNSPECIFIED
--- NOTE | 2019-04-23 12:52 | PN ---
Progress Note (short form) - Note Progress Note: States breathing feels about the same. No acute events overnight. Intake & Output 04/20/19 04/21/19 04/22/19 04/23/19 23:59 23:59 23:59 23:59 Intake Total 1700 1100 0 Output Total 300 Balance 1700 1100 -300 0 Weight 134 lb 134 lb 6.4 oz 131 lb 11.2 oz 131 lb 8 oz Last Vital Signs Temp Pulse Resp BP Pulse Ox 98.9 F 103 H 22 H 122/76 94 L 04/22/19 18:30 04/23/19 05:30 04/23/19 05:30 04/23/19 05:30 04/22/19 21:00 Active Medications Acetaminophen (Tylenol -) 650 mg PO Q4H PRN PRN Reason: PAIN LEVEL 1-5 Last Admin: 04/16/19 22:14 Dose: 650 mg Albuterol Sulfate (Ventolin 0.083% Nebulizer Soln -) 1 amp NEB RQID [facility] Last Admin: 04/23/19 11:53 Dose: 1 amp Albuterol Sulfate (Ventolin 0.083% Nebulizer Soln -) 1 amp NEB Q4H PRN PRN Reason: SHORT OF BREATH/WHEEZING Last Admin: 04/23/19 05:46 Dose: 1 amp Ascorbic Acid (Vitamin C -) 500 mg PO BID [facility] Last Admin: 04/23/19 10:26 Dose: 500 mg Budesonide/Formoterol Fumarate (Symbicort 160/4.5mcg -) 2 puff IH BID [facility] Last Admin: 04/23/19 10:28 Dose: 2 puff Carbidopa/Levodopa (Sinemet 25/100 -) 1 each PO TID@0900,1200,1700 [facility] Last Admin: 04/23/19 10:54 Dose: 1 each Dronabinol (Marinol -) 5 mg PO DAILY@1130 [facility] Stop: 04/24/19 11:31 Last Admin: 04/22/19 12:30 Dose: 5 mg Melatonin (Melatonin) 5 mg PO HS PRN PRN Reason: INSOMNIA Last Admin: 04/22/19 23:18 Dose: 5 mg Metoprolol Succinate (Toprol Xl -) 25 mg PO DAILY [facility] Last Admin: 04/23/19 10:26 Dose: 25 mg Nystatin (Nystatin Oral Suspension -) 500,000 units PO Q6HPO [facility] Last Admin: 04/23/19 06:18 Dose: 500,000 units Pantoprazole Sodium (Protonix Iv) 40 mg IVPUSH BID [facility] Last Admin: 04/23/19 10:24 Dose: 40 mg Prednisone (Deltasone -) 40 mg PO DAILY [facility] Last Admin: 04/23/19 10:26 Dose: 40 mg Sertraline HCl 50 mg/ (Sertraline HCl 25 mg) 75 mg PO DAILY [facility] Last Admin: 04/23/19 10:26 Dose: 75 mg Silver Sulfadiazine (Silvadene -) 1 applic TP BID [facility] Last Admin: 04/23/19 10:28 Dose: 1 applic Sodium Chloride (Sodium Chloride Tablet -) 1 gm PO BID [facility] Last Admin: 04/23/19 10:28 Dose: 1 gm Tiotropium [place] (Spiriva Respimat) 2 puff IH DAILY [facility] Last Admin: 04/23/19 10:28 Dose: 2 puff Trimethoprim/Sulfamethoxazole (Bactrim Ds -) 1 each PO BID [facility] Last Admin: 04/23/19 10:26 Dose: 1 each Zinc Oxide/Panthenol/Vitamin E (Balmex Cream -) 1 applic TP BID [facility] Last Admin: 04/23/19 10:55 Dose: 1 applic Gen: NAD at rest Heart: RRR Lung: bilateral rhonchi, no wheeze Abd: soft, nontender Ext: no edema Problem List - Problems (1) COPD exacerbation Code(s): J44.1 - CHRONIC OBSTRUCTIVE PULMONARY DISEASE W (ACUTE) EXACERBATION A/P Acute COPD Exacerbation Chronic Hypoxic Respiratory Failure Severe Pulmonary HTN CAD HTN Progressive Hyponatremia due to hypotonic saline and diuretics - Inhaled bronchodilators - Symbicort - O2 to keep SpO2 >90% - DVT prophylaxis - Prednisone taper - DC planning Dr Martinez
[2019-04-23] MEDS: DRONABINOL 2.5 MG CAPSULE PO SCH (13:57)
[2019-04-23] MEDS ORDERED: FUROSEMIDE 40 MG/4 ML INJECTABLE VIAL ONE (14:47)
[2019-04-23] MEDS ORDERED: FUROSEMIDE 40 MG/4 ML INJECTABLE VIAL IVPUSH ONE (15:00)
--- NOTE | 2019-04-23 15:23 | PN ---
Progress Note (short form) - Note Progress Note: Renal follow up for hyponatremia Seen and examined at the bedside awake and alert offers no acute complaints no confusion, lethargy, weakness, N/V Vital Signs Temperature 98.1 F 04/23/19 14:00 Pulse Rate 95 H 04/23/19 14:00 Respiratory Rate 04/23/19 14:00 Blood Pressure 125/72 04/23/19 14:00 O2 Sat by Pulse Oximetry (%) 94 L 04/22/19 21:00 Intake & Output 04/20/19 04/21/19 04/22/19 04/23/19 23:59 23:59 23:59 23:59 Intake Total 1700 1100 0 Output Total 300 Balance 1700 1100 -300 0 Weight 60.781 kg 60.963 kg 59.738 kg 59.647 kg NAD Course BS soft NT/ND no LE edema, clubbing or cyanosis CBC, BMP 04/22/19 06:13 04/23/19 06:30 Current Medications Acetaminophen (Tylenol -) 650 mg PO Q4H PRN PRN Reason: PAIN LEVEL 1-5 Last Admin: 04/16/19 22:14 Dose: 650 mg Albuterol Sulfate (Ventolin 0.083% Nebulizer Soln -) 1 amp NEB Q4H PRN PRN Reason: SHORT OF BREATH/WHEEZING Last Admin: 04/23/19 05:46 Dose: 1 amp Albuterol Sulfate (Ventolin 0.083% Nebulizer Soln -) 1 amp NEB RQ4H NADIA Ascorbic Acid (Vitamin C -) 500 mg PO BID [facility] Last Admin: 04/23/19 10:26 Dose: 500 mg Budesonide/Formoterol Fumarate (Symbicort 160/4.5mcg -) 2 puff IH BID [facility] Last Admin: 04/23/19 10:28 Dose: 2 puff Carbidopa/Levodopa (Sinemet 25/100 -) 1 each PO TID@0900,1200,1700 [facility] Last Admin: 04/23/19 13:57 Dose: 1 each Dronabinol (Marinol -) 5 mg PO DAILY@1130 [facility] Stop: 04/24/19 11:31 Last Admin: 04/23/19 13:57 Dose: 5 mg Melatonin (Melatonin) 5 mg PO HS PRN PRN Reason: INSOMNIA Last Admin: 04/22/19 23:18 Dose: 5 mg Metoprolol Succinate (Toprol Xl -) 25 mg PO DAILY [facility] Last Admin: 04/23/19 10:26 Dose: 25 mg Nystatin (Nystatin Oral Suspension -) 500,000 units PO Q6HPO [facility] Last Admin: 04/23/19 13:57 Dose: 500,000 units Pantoprazole Sodium (Protonix Iv) 40 mg IVPUSH BID [facility] Last Admin: 04/23/19 10:24 Dose: 40 mg Prednisone (Deltasone -) 40 mg PO DAILY [facility] Last Admin: 04/23/19 10:26 Dose: 40 mg Sertraline HCl 50 mg/ (Sertraline HCl 25 mg) 75 mg PO DAILY [facility] Last Admin: 04/23/19 10:26 Dose: 75 mg Silver Sulfadiazine (Silvadene -) 1 applic TP BID [facility] Last Admin: 04/23/19 10:28 Dose: 1 applic Sodium Chloride (Sodium Chloride Tablet -) 1 gm PO BID [facility] Last Admin: 04/23/19 10:28 Dose: 1 gm Tiotropium [place] (Spiriva Respimat) 2 puff IH DAILY [facility] Last Admin: 04/23/19 10:28 Dose: 2 puff Trimethoprim/Sulfamethoxazole (Bactrim Ds -) 1 each PO BID [facility] Last Admin: 04/23/19 10:26 Dose: 1 each Zinc Oxide/Panthenol/Vitamin E (Balmex Cream -) 1 applic TP BID [facility] Last Admin: 04/23/19 10:55 Dose: 1 applic 89 year old gentleman with history of COPD, Lung cancer, cardiomyopathy, CKD presented with cough and shortness of breath and noted to have worsening hyponatremia. 1. hyponatremia from poor solute intake + diuretics in setting of D5W infusion with antibiotics 2. Respiratory failure 3. Bronchitis 4. Leukocytosis Serum Na improving toward normal Maintain fluid restriction for now Encouraged oral solute intake as tolerated Continue salt tabs for now, can d/c once Na > 135 Trend Na daily. No acute indication for hypertonic saline. Zack Saleem DO
--- NOTE | 2019-04-23 15:25 | PN ---
Progress Note (short form) - Note Progress Note: s: sob worse today. no chest pain, palps, dizziness, edema. Current Medications Acetaminophen (Tylenol -) 650 mg PO Q4H PRN PRN Reason: PAIN LEVEL 1-5 Last Admin: 04/16/19 22:14 Dose: 650 mg Albuterol Sulfate (Ventolin 0.083% Nebulizer Soln -) 1 amp NEB Q4H PRN PRN Reason: SHORT OF BREATH/WHEEZING Last Admin: 04/23/19 05:46 Dose: 1 amp Albuterol Sulfate (Ventolin 0.083% Nebulizer Soln -) 1 amp NEB RQ4H [facility] Ascorbic Acid (Vitamin C -) 500 mg PO BID [facility] Last Admin: 04/23/19 10:26 Dose: 500 mg Budesonide/Formoterol Fumarate (Symbicort 160/4.5mcg -) 2 puff IH BID [facility] Last Admin: 04/23/19 10:28 Dose: 2 puff Carbidopa/Levodopa (Sinemet 25/100 -) 1 each PO TID@0900,1200,1700 [facility] Last Admin: 04/23/19 13:57 Dose: 1 each Dronabinol (Marinol -) 5 mg PO DAILY@1130 [facility] Stop: 04/24/19 11:31 Last Admin: 04/23/19 13:57 Dose: 5 mg Melatonin (Melatonin) 5 mg PO HS PRN PRN Reason: INSOMNIA Last Admin: 04/22/19 23:18 Dose: 5 mg Metoprolol Succinate (Toprol Xl -) 25 mg PO DAILY [facility] Last Admin: 04/23/19 10:26 Dose: 25 mg Nystatin (Nystatin Oral Suspension -) 500,000 units PO Q6HPO [facility] Last Admin: 04/23/19 13:57 Dose: 500,000 units Pantoprazole Sodium (Protonix Iv) 40 mg IVPUSH BID [facility] Last Admin: 04/23/19 10:24 Dose: 40 mg Prednisone (Deltasone -) 40 mg PO DAILY [facility] Last Admin: 04/23/19 10:26 Dose: 40 mg Sertraline HCl 50 mg/ (Sertraline HCl 25 mg) 75 mg PO DAILY [facility] Last Admin: 04/23/19 10:26 Dose: 75 mg Silver Sulfadiazine (Silvadene -) 1 applic TP BID [facility] Last Admin: 04/23/19 10:28 Dose: 1 applic Sodium Chloride (Sodium Chloride Tablet -) 1 gm PO BID [facility] Last Admin: 04/23/19 10:28 Dose: 1 gm Tiotropium [place] (Spiriva Respimat) 2 puff IH DAILY [facility] Last Admin: 04/23/19 10:28 Dose: 2 puff Trimethoprim/Sulfamethoxazole (Bactrim Ds -) 1 each PO BID [facility] Last Admin: 04/23/19 10:26 Dose: 1 each Zinc Oxide/Panthenol/Vitamin E (Balmex Cream -) 1 applic TP BID [facility] Last Admin: 04/23/19 10:55 Dose: 1 applic Constitutional: Yes: Well Nourished, No Distress, Calm Cardiovascular: Yes: Regular Rate and Rhythm, S1, S2. No: JVD, Gallop, Murmur Respiratory: Yes: Regular, Rhonchi. No: Accessory Muscle Use Extremities: No: Cold Edema: No Neurological: Yes: Alert, Oriented Psychiatric: No: Agitated no jaundice diaphoresis Assessment/Plan echo 02/2019 tds, nl LV function, RV not well visualized, severe pujlm HTN >60 mmHg RVSP stress echo 04/07: apical ischemia a.e. COPD, acute HFpEF - worsening sob today - monitor volume status, receiving IV lasix for congestion - steroids and BDs per pulm elevated trop: - borderline trop, flat trend, not c/w acs - EKG no ischemic changes history of stress induced CM: with mild acute on chronic diastolic CHF exacerbation in setting of increased IVF - nl EF on echo 02/2019 - cont lisinopril, bystolic DORIS on CKD: - baseline creat 1.4-1.9 - renal fxn improved here PSVT/PAT: - brief runs, off tele now - cont bb CAD: - +apical ischemia 03/2018 managed medically - no angina - cont aspirin, statin, bystolic HTN: - stable, cont current meds pulm HTN: - 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
[2019-04-23] MEDS: MELATONIN 5 MG TABLETS PO PRN (23:36)
[2019-04-24] MEDS: ALBUTEROL SO4 0.083% IH SOL 2.5 MG/3 ML VIAL.NEB. NEB SCH ×6 (00:30→20:22)
[2019-04-24] MEDS: NYSTATIN 500,000 UNITS/5 ML SUSPENSION PO SCH ×4 (05:28→23:04)
[2019-04-24 08:23] LABS: BLOOD UREA NITROGEN 54.6 mg/dL (7-18); CALCIUM 8.9 mg/dL (8.5-10.1); CREATININE 1.3 mg/dL (0.55-1.3); POTASSIUM 3.6 mmol/L (3.5-5.1)
[2019-04-24] MEDS ORDERED: PT OWN MED DRAWER 7, Y5N ONE (08:59)
[2019-04-24] MEDS ORDERED: SERTRALINE HCL 50 MG TABLET (FP) ONE (08:59)
[2019-04-24] MEDS ORDERED: SERTRALINE HCL 25 MG TABLET (FP) ONE (08:59)
[2019-04-24] MEDS: CARBIDOPA/LEVODOPA 25/100 TABLET (FP) PO SCH ×3 (09:15→17:18)
[2019-04-24] MEDS: SULFAMETHOXAZOLE/TRIMETHOPRIM 800MG/160MG D.S. TABLET PO SCH ×2 (09:15→22:49)
[2019-04-24] MEDS: predniSONE 20 MG TABLET (UD) PO SCH (09:15)
[2019-04-24] MEDS: ASCORBIC ACID 500 MG TABLET (FP) PO SCH ×2 (09:16→22:49)
[2019-04-24] MEDS: SERTRALINE HCL 50 MG, SERTRALINE HCL 25 MG PO SCH (09:16)
[2019-04-24] MEDS: metoPROLOL SUCCINATE 25 MG TAB.SR.24H (FP) PO SCH (09:16)
[2019-04-24] MEDS: SODIUM CHLORIDE 1 GM TABLET PO SCH ×2 (09:16→14:39)
[2019-04-24] MEDS: PANTOPRAZOLE SODIUM 40 MG VIAL IVPUSH SCH ×2 (09:17→22:49)
[2019-04-24] MEDS: BUDESONIDE/FORMETEROL FUMARATE 160/4.5 mcg INHALER IH SCH ×2 (09:17→22:49)
--- NOTE | 2019-04-24 09:17 | PN ---
Progress Note, Physician Chief Complaint: sob History of Present Illness: breathing feels much better today--denies sob currently no cp no palp, swelling - Current Medication List Current Medications: Active Medications Acetaminophen (Tylenol -) 650 mg PO Q4H PRN PRN Reason: PAIN LEVEL 1-5 Last Admin: 04/16/19 22:14 Dose: 650 mg Albuterol Sulfate (Ventolin 0.083% Nebulizer Soln -) 1 amp NEB Q4H PRN PRN Reason: SHORT OF BREATH/WHEEZING Last Admin: 04/23/19 05:46 Dose: 1 amp Albuterol Sulfate (Ventolin 0.083% Nebulizer Soln -) 1 amp NEB RQ4H [facility] Last Admin: 04/24/19 07:43 Dose: 1 amp Ascorbic Acid (Vitamin C -) 500 mg PO BID [facility] Last Admin: 04/23/19 23:36 Dose: 500 mg Budesonide/Formoterol Fumarate (Symbicort 160/4.5mcg -) 2 puff IH BID [facility] Last Admin: 04/23/19 23:35 Dose: 2 puff Carbidopa/Levodopa (Sinemet 25/100 -) 1 each PO TID@0900,1200,1700 [facility] Last Admin: 04/23/19 17:53 Dose: 1 each Dronabinol (Marinol -) 5 mg PO DAILY@1130 [facility] Stop: 04/24/19 11:31 Last Admin: 04/23/19 13:57 Dose: 5 mg Melatonin (Melatonin) 5 mg PO HS PRN PRN Reason: INSOMNIA Last Admin: 04/23/19 23:36 Dose: 5 mg Metoprolol Succinate (Toprol Xl -) 25 mg PO DAILY [facility] Last Admin: 04/23/19 10:26 Dose: 25 mg Nystatin (Nystatin Oral Suspension -) 500,000 units PO Q6HPO [facility] Last Admin: 04/24/19 05:28 Dose: 500,000 units Pantoprazole Sodium (Protonix Iv) 40 mg IVPUSH BID [facility] Last Admin: 04/23/19 23:36 Dose: 40 mg Prednisone (Deltasone -) 40 mg PO DAILY [facility] Last Admin: 04/23/19 10:26 Dose: 40 mg Sertraline HCl 50 mg/ (Sertraline HCl 25 mg) 75 mg PO DAILY [facility] Last Admin: 04/23/19 10:26 Dose: 75 mg Silver Sulfadiazine (Silvadene -) 1 applic TP BID [facility] Last Admin: 04/23/19 23:37 Dose: 1 applic Sodium Chloride (Sodium Chloride Tablet -) 1 gm PO BID [facility] Last Admin: 04/23/19 23:35 Dose: 1 gm Tiotropium [place] (Spiriva Respimat) 2 puff IH DAILY [facility] Last Admin: 04/23/19 10:28 Dose: 2 puff Trimethoprim/Sulfamethoxazole (Bactrim Ds -) 1 each PO BID [facility] Last Admin: 04/23/19 23:36 Dose: 1 each Zinc Oxide/Panthenol/Vitamin E (Balmex Cream -) 1 applic TP BID [facility] Last Admin: 04/23/19 23:36 Dose: 1 applic - Objective Vital Signs: Vital Signs Temperature 97.9 F 04/24/19 06:49 Pulse Rate 106 H 04/24/19 06:49 Respiratory Rate 04/24/19 06:49 Blood Pressure 116/70 04/24/19 06:49 O2 Sat by Pulse Oximetry (%) 96 04/23/19 09:00 Constitutional: Yes: Well Nourished, No Distress, Calm Cardiovascular: Yes: Regular Rate and Rhythm (decr intensity), S1, S2. No: JVD , Gallop, Murmur Respiratory: Yes: Regular, Wheezes. No: Accessory Muscle Use, Rales Extremities: No: Cold Edema: No Neurological: Yes: Alert, Oriented Labs: CBC, BMP 04/22/19 06:13 04/24/19 07:27 INR, PTT INR 1.03 (0.83-1.09) 04/06/19 19:45 Assessment/Plan echo 02/2019 tds, nl LV function, RV not well visualized, severe pujlm HTN >60 mmHg RVSP stress echo 04/07: apical ischemia a.e. COPD, acute HFpEF, severe pulm HTN ? cor pulmonale - worsening sob 1/3--lasix 40 iv X1 given. today's labs hyponatremia improving, bun/creat stable. bedscale wt trends stable overall. no sob today, appears euvolemic--hold lasix - steroid taper, BDs, suppl O2 per pulm - will d/c metoprolol for now, given prolonged, symptomatic airways dz sx's here , and EF has normalized--observe for angina sx's elevated trop: - borderline trop, flat trend, not c/w acs - EKG no ischemic changes history of stress induced CM: with mild acute on chronic diastolic CHF exacerbation in setting of increased IVF - nl EF on echo 02/2019 - cont lisinopril. hold BB, as above (? contributing to copd sx's) DORIS on CKD: - baseline creat 1.4-1.9 - renal fxn improved here PSVT/PAT: - brief runs, off tele now - cont bb CAD: - +apical ischemia 03/2018 managed medically - no angina - cont aspirin, statin. 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
[2019-04-24] MEDS: SILVER SULFADIAZINE 1% TOP CREAM 50 GM JAR TP SCH ×2 (09:18→22:48)
[2019-04-24] MEDS: ZINC OXIDE/PANTHENOL/VITAMIN E 56 GM TUBE TP SCH ×2 (09:18→22:49)
--- NOTE | 2019-04-24 09:38 | PN ---
Progress Note (short form) - Note Progress Note: Renal follow up for hyponatremia Seen and examined at the bedside awake and alert offers no acute complaints no confusion, lethargy, weakness, N/V Vital Signs Temperature 97.9 F 04/24/19 06:49 Pulse Rate 106 H 04/24/19 06:49 Respiratory Rate 20 04/24/19 06:49 Blood Pressure 116/70 04/24/19 06:49 O2 Sat by Pulse Oximetry (%) 96 04/23/19 09:00 Intake & Output 04/21/19 04/22/19 04/23/19 04/24/19 23:59 23:59 23:59 23:59 Intake Total 1100 0 0 Output Total 300 Balance 1100 -300 0 0 Weight 60.963 kg 59.738 kg 59.647 kg 60.016 kg NAD Course BS soft NT/ND no LE edema, clubbing or cyanosis CBC, BMP 04/22/19 06:13 04/24/19 07:27 Current Medications Acetaminophen (Tylenol -) 650 mg PO Q4H PRN PRN Reason: PAIN LEVEL 1-5 Last Admin: 04/16/19 22:14 Dose: 650 mg Albuterol Sulfate (Ventolin 0.083% Nebulizer Soln -) 1 amp NEB Q4H PRN PRN Reason: SHORT OF BREATH/WHEEZING Last Admin: 04/23/19 05:46 Dose: 1 amp Albuterol Sulfate (Ventolin 0.083% Nebulizer Soln -) 1 amp NEB RQ4H [facility] Last Admin: 04/24/19 07:43 Dose: 1 amp Ascorbic Acid (Vitamin C -) 500 mg PO BID [facility] Last Admin: 04/24/19 09:16 Dose: 500 mg Budesonide/Formoterol Fumarate (Symbicort 160/4.5mcg -) 2 puff IH BID [facility] Last Admin: 04/24/19 09:17 Dose: 2 puff Carbidopa/Levodopa (Sinemet 25/100 -) 1 each PO TID@0900,1200,1700 [facility] Last Admin: 04/24/19 09:15 Dose: 1 each Dronabinol (Marinol -) 5 mg PO DAILY@1130 [facility] Stop: 04/24/19 11:31 Last Admin: 04/23/19 13:57 Dose: 5 mg Melatonin (Melatonin) 5 mg PO HS PRN PRN Reason: INSOMNIA Last Admin: 04/23/19 23:36 Dose: 5 mg Metoprolol Succinate (Toprol Xl -) 25 mg PO DAILY [facility] Last Admin: 04/24/19 09:16 Dose: 25 mg Nystatin (Nystatin Oral Suspension -) 500,000 units PO Q6HPO [facility] Last Admin: 04/24/19 05:28 Dose: 500,000 units Pantoprazole Sodium (Protonix Iv) 40 mg IVPUSH BID [facility] Last Admin: 04/24/19 09:17 Dose: 40 mg Prednisone (Deltasone -) 40 mg PO DAILY [facility] Last Admin: 04/24/19 09:15 Dose: 40 mg Sertraline HCl 50 mg/ (Sertraline HCl 25 mg) 75 mg PO DAILY [facility] Last Admin: 04/24/19 09:16 Dose: 75 mg Silver Sulfadiazine (Silvadene -) 1 applic TP BID [facility] Last Admin: 04/24/19 09:18 Dose: 1 applic Sodium Chloride (Sodium Chloride Tablet -) 1 gm PO BID [facility] Last Admin: 04/24/19 09:16 Dose: 1 gm Tiotropium [place] (Spiriva Respimat) 2 puff IH DAILY [facility] Last Admin: 04/23/19 10:28 Dose: 2 puff Trimethoprim/Sulfamethoxazole (Bactrim Ds -) 1 each PO BID [facility] Last Admin: 04/24/19 09:15 Dose: 1 each Zinc Oxide/Panthenol/Vitamin E (Balmex Cream -) 1 applic TP BID [facility] Last Admin: 04/24/19 09:18 Dose: 1 applic 89 year old gentleman with history of COPD, Lung cancer, cardiomyopathy, CKD presented with cough and shortness of breath and noted to have worsening hyponatremia. 1. hyponatremia from poor solute intake + diuretics in setting of D5W infusion with antibiotics 2. Respiratory failure 3. Bronchitis 4. Leukocytosis Serum Na is now near normal Maintain fluid restriction Encouraged oral solute intake as tolerated Decrease salt tabs to once daily. Trend Na daily. No acute indication for hypertonic saline. Zack Saleem DO
--- NOTE | 2019-04-24 10:47 | PN ---
Progress Note (short form) - Note Progress Note: States breathing feels overall better. No acute events overnight. Intake & Output 04/21/19 04/22/19 04/23/19 04/24/19 23:59 23:59 23:59 23:59 Intake Total 1100 0 0 Output Total 300 Balance 1100 -300 0 0 Weight 134 lb 6.4 oz 131 lb 11.2 oz 131 lb 8 oz 132 lb 5 oz Last Vital Signs Temp Pulse Resp BP Pulse Ox 97.9 F 106 H 20 116/70 96 04/24/19 06:49 04/24/19 06:49 04/24/19 06:49 04/24/19 06:49 04/23/19 09:00 Active Medications Acetaminophen (Tylenol -) 650 mg PO Q4H PRN PRN Reason: PAIN LEVEL 1-5 Last Admin: 04/16/19 22:14 Dose: 650 mg Albuterol Sulfate (Ventolin 0.083% Nebulizer Soln -) 1 amp NEB Q4H PRN PRN Reason: SHORT OF BREATH/WHEEZING Last Admin: 04/23/19 05:46 Dose: 1 amp Albuterol Sulfate (Ventolin 0.083% Nebulizer Soln -) 1 amp NEB RQ4H [facility] Last Admin: 04/24/19 07:43 Dose: 1 amp Ascorbic Acid (Vitamin C -) 500 mg PO BID [facility] Last Admin: 04/24/19 09:16 Dose: 500 mg Budesonide/Formoterol Fumarate (Symbicort 160/4.5mcg -) 2 puff IH BID [facility] Last Admin: 04/24/19 09:17 Dose: 2 puff Carbidopa/Levodopa (Sinemet 25/100 -) 1 each PO TID@0900,1200,1700 [facility] Last Admin: 04/24/19 09:15 Dose: 1 each Dronabinol (Marinol -) 5 mg PO DAILY@1130 [facility] Stop: 04/24/19 11:31 Last Admin: 04/23/19 13:57 Dose: 5 mg Melatonin (Melatonin) 5 mg PO HS PRN PRN Reason: INSOMNIA Last Admin: 04/23/19 23:36 Dose: 5 mg Metoprolol Succinate (Toprol Xl -) 25 mg PO DAILY [facility] Last Admin: 04/24/19 09:16 Dose: 25 mg Nystatin (Nystatin Oral Suspension -) 500,000 units PO Q6HPO [facility] Last Admin: 04/24/19 05:28 Dose: 500,000 units Pantoprazole Sodium (Protonix Iv) 40 mg IVPUSH BID [facility] Last Admin: 04/24/19 09:17 Dose: 40 mg Prednisone (Deltasone -) 40 mg PO DAILY [facility] Last Admin: 04/24/19 09:15 Dose: 40 mg Sertraline HCl 50 mg/ (Sertraline HCl 25 mg) 75 mg PO DAILY [facility] Last Admin: 04/24/19 09:16 Dose: 75 mg Silver Sulfadiazine (Silvadene -) 1 applic TP BID [facility] Last Admin: 04/24/19 09:18 Dose: 1 applic Sodium Chloride (Sodium Chloride Tablet -) 1 gm PO DAILY [facility] Tiotropium [place] (Spiriva Respimat) 2 puff IH DAILY [facility] Last Admin: 04/23/19 10:28 Dose: 2 puff Trimethoprim/Sulfamethoxazole (Bactrim Ds -) 1 each PO BID [facility] Last Admin: 04/24/19 09:15 Dose: 1 each Zinc Oxide/Panthenol/Vitamin E (Balmex Cream -) 1 applic TP BID [facility] Last Admin: 04/24/19 09:18 Dose: 1 applic Gen: NAD at rest Heart: RRR Lung: scattered bilateral rhonchi, no wheeze Abd: soft, nontender Ext: no edema Laboratory Results - last 24 hr 04/24/19 07:27 Sodium 134 L Potassium 3.6 Chloride 93 L Carbon Dioxide 30 Anion Gap 11 BUN 54.6 H Creatinine 1.3 Est GFR (CKD-EPI)AfAm 56.86 Est GFR (CKD-EPI)NonAf 49.06 Random Glucose 92 Calcium 8.9 Problem List - Problems (1) COPD exacerbation Code(s): J44.1 - CHRONIC OBSTRUCTIVE PULMONARY DISEASE W (ACUTE) EXACERBATION A/P Acute COPD Exacerbation Chronic Hypoxic Respiratory Failure Severe Pulmonary HTN CAD HTN Progressive Hyponatremia due to hypotonic saline and diuretics - Inhaled bronchodilators - Symbicort - O2 to keep SpO2 >90% - DVT prophylaxis - Prednisone taper - DC planning Dr Martinez
[2019-04-24] MEDS: DRONABINOL 2.5 MG CAPSULE PO SCH (14:36)
[2019-04-24] MEDS: TIOTROPIUM BROMIDE 2.5 MCG (SPIRIVA) RESPIMAT INHALER IH SCH (14:40)
--- NOTE | 2019-04-24 18:30 | PN ---
Progress Note, Physician History of Present Illness: Pt is alert, reporting less SOB. States he feels better. Remains afebrile. No new complaints. - Current Medication List Current Medications: Active Medications Acetaminophen (Tylenol -) 650 mg PO Q4H PRN PRN Reason: PAIN LEVEL 1-5 Last Admin: 04/16/19 22:14 Dose: 650 mg Albuterol Sulfate (Ventolin 0.083% Nebulizer Soln -) 1 amp NEB Q4H PRN PRN Reason: SHORT OF BREATH/WHEEZING Last Admin: 04/23/19 05:46 Dose: 1 amp Albuterol Sulfate (Ventolin 0.083% Nebulizer Soln -) 1 amp NEB RQ4H [facility] Last Admin: 04/24/19 16:23 Dose: 1 amp Ascorbic Acid (Vitamin C -) 500 mg PO BID [facility] Last Admin: 04/24/19 09:16 Dose: 500 mg Budesonide/Formoterol Fumarate (Symbicort 160/4.5mcg -) 2 puff IH BID [facility] Last Admin: 04/24/19 09:17 Dose: 2 puff Carbidopa/Levodopa (Sinemet 25/100 -) 1 each PO TID@0900,1200,1700 [facility] Last Admin: 04/24/19 17:18 Dose: 1 each Melatonin (Melatonin) 5 mg PO HS PRN PRN Reason: INSOMNIA Last Admin: 04/23/19 23:36 Dose: 5 mg Nystatin (Nystatin Oral Suspension -) 500,000 units PO Q6HPO [facility] Last Admin: 04/24/19 17:18 Dose: 500,000 units Pantoprazole Sodium (Protonix Iv) 40 mg IVPUSH BID [facility] Last Admin: 04/24/19 09:17 Dose: 40 mg Prednisone (Deltasone -) 40 mg PO DAILY [facility] Last Admin: 04/24/19 09:15 Dose: 40 mg Sertraline HCl 50 mg/ (Sertraline HCl 25 mg) 75 mg PO DAILY [facility] Last Admin: 04/24/19 09:16 Dose: 75 mg Silver Sulfadiazine (Silvadene -) 1 applic TP BID [facility] Last Admin: 04/24/19 09:18 Dose: 1 applic Sodium Chloride (Sodium Chloride Tablet -) 1 gm PO DAILY [facility] Last Admin: 04/24/19 14:39 Dose: 1 gm Tiotropium [place] (Spiriva Respimat) 2 puff IH DAILY [facility] Last Admin: 04/24/19 14:40 Dose: 2 puff Trimethoprim/Sulfamethoxazole (Bactrim Ds -) 1 each PO BID [facility] Last Admin: 04/24/19 09:15 Dose: 1 each Zinc Oxide/Panthenol/Vitamin E (Balmex Cream -) 1 applic TP BID [facility] Last Admin: 04/24/19 09:18 Dose: 1 applic - Objective Vital Signs: Vital Signs Temperature 97.3 F L 04/24/19 17:18 Pulse Rate 112 H 04/24/19 17:18 Respiratory Rate 04/24/19 17:18 Blood Pressure 128/70 04/24/19 17:18 O2 Sat by Pulse Oximetry (%) 96 04/23/19 09:00 Constitutional: Yes: No Distress, Calm Cardiovascular: Yes: Regular Rate and Rhythm Respiratory: Yes: On Nasal O2, Rhonchi Gastrointestinal: Yes: Normal Bowel Sounds, Soft Genitourinary: Yes: WNL Neurological: Yes: Alert Labs: CBC, BMP 04/22/19 06:13 04/24/19 07:27 INR, PTT INR 1.03 (0.83-1.09) 04/06/19 19:45 Microbiology 04/19/19 07:10 Blood - Peripheral Venous Blood Culture - Final NO GROWTH AFTER 5 DAYS INCUBATION 04/19/19 07:15 Blood - Peripheral Venous Blood Culture - Final NO GROWTH AFTER 5 DAYS INCUBATION 04/10/19 11:30 Sputum - Expectorated Gram Stain - Final 04/10/19 11:30 Sputum - Expectorated Sputum Culture - Final Stenotrophomon.(X.)Maltophilia Problem List - Problems (1) Pulmonary hypertension Code(s): I27.20 - PULMONARY HYPERTENSION, UNSPECIFIED (2) Acute exacerbation of chronic obstructive pulmonary disease Code(s): J44.1 - CHRONIC OBSTRUCTIVE PULMONARY DISEASE W (ACUTE) EXACERBATION (3) Acute hypoxemic respiratory failure Code(s): J96.01 - ACUTE RESPIRATORY FAILURE WITH HYPOXIA (4) Bipolar 1 disorder Code(s): F31.9 - BIPOLAR DISORDER, UNSPECIFIED (5) Bronchiectasis Code(s): J47.9 - BRONCHIECTASIS, UNCOMPLICATED (6) CHF (congestive heart failure) Code(s): I50.9 - HEART FAILURE, UNSPECIFIED (7) Emphysema of lung Code(s): J43.9 - EMPHYSEMA, UNSPECIFIED (8) HTN (hypertension) Code(s): I10 - ESSENTIAL (PRIMARY) HYPERTENSION (9) Renal failure Code(s): N19 - UNSPECIFIED KIDNEY FAILURE (10) SOB (shortness of breath) Code(s): R06.02 - SHORTNESS OF BREATH Assessment/Plan Pt with less SOB, remains afebrile Sputum culture : Stenotrophomonas Continue Bactrim PO Nystatin oral Latest wbc decreased from previous, repeat cbc in am Pt is on steroids, O2 NC Hyponatremia improving Continue monitor
--- NOTE | 2019-04-24 19:15 | PN ---
Progress Note, Physician History of Present Illness: Pt is stilll SOB Pt will have lasix 40 NA better now spoke with regarding rehab - Current Medication List Current Medications: Active Medications Acetaminophen (Tylenol -) 650 mg PO Q4H PRN PRN Reason: PAIN LEVEL 1-5 Last Admin: 04/16/19 22:14 Dose: 650 mg Albuterol Sulfate (Ventolin 0.083% Nebulizer Soln -) 1 amp NEB Q4H PRN PRN Reason: SHORT OF BREATH/WHEEZING Last Admin: 04/23/19 05:46 Dose: 1 amp Albuterol Sulfate (Ventolin 0.083% Nebulizer Soln -) 1 amp NEB RQ4H REPLACED BY [facility] Last Admin: 04/24/19 16:23 Dose: 1 amp Ascorbic Acid (Vitamin C -) 500 mg PO BID REPLACED BY [facility] Last Admin: 04/24/19 09:16 Dose: 500 mg Budesonide/Formoterol Fumarate (Symbicort 160/4.5mcg -) 2 puff IH BID REPLACED BY [facility] Last Admin: 04/24/19 09:17 Dose: 2 puff Carbidopa/Levodopa (Sinemet 25/100 -) 1 each PO TID@0900,1200,1700 REPLACED BY [facility] Last Admin: 04/24/19 17:18 Dose: 1 each Furosemide (Lasix Injection -) 40 mg IVPUSH ONCE ONE Stop: 04/24/19 19:12 Melatonin (Melatonin) 5 mg PO HS PRN PRN Reason: INSOMNIA Last Admin: 04/23/19 23:36 Dose: 5 mg Nystatin (Nystatin Oral Suspension -) 500,000 units PO Q6HPO REPLACED BY [facility] Last Admin: 04/24/19 17:18 Dose: 500,000 units Pantoprazole Sodium (Protonix Iv) 40 mg IVPUSH BID REPLACED BY [facility] Last Admin: 04/24/19 09:17 Dose: 40 mg Prednisone (Deltasone -) 40 mg PO DAILY REPLACED BY [facility] Last Admin: 04/24/19 09:15 Dose: 40 mg Sertraline HCl 50 mg/ (Sertraline HCl 25 mg) 75 mg PO DAILY REPLACED BY [facility] Last Admin: 04/24/19 09:16 Dose: 75 mg Silver Sulfadiazine (Silvadene -) 1 applic TP BID REPLACED BY [facility] Last Admin: 04/24/19 09:18 Dose: 1 applic Sodium Chloride (Sodium Chloride Tablet -) 1 gm PO DAILY REPLACED BY [facility] Last Admin: 04/24/19 14:39 Dose: 1 gm Tiotropium [place] (Spiriva Respimat) 2 puff IH DAILY REPLACED BY [facility] Last Admin: 04/24/19 14:40 Dose: 2 puff Trimethoprim/Sulfamethoxazole (Bactrim Ds -) 1 each PO BID REPLACED BY [facility] Last Admin: 04/24/19 09:15 Dose: 1 each Zinc Oxide/Panthenol/Vitamin E (Balmex Cream -) 1 applic TP BID REPLACED BY [facility] Last Admin: 04/24/19 09:18 Dose: 1 applic - Objective Vital Signs: Vital Signs Temperature 97.3 F L 04/24/19 17:18 Pulse Rate 112 H 04/24/19 17:18 Respiratory Rate 20 04/24/19 17:18 Blood Pressure 128/70 04/24/19 17:18 O2 Sat by Pulse Oximetry (%) 96 04/23/19 09:00 Constitutional: Yes: Anxious Eyes: Yes: Conjunctiva Clear, EOM Intact HENT: Yes: Atraumatic, Normocephalic Neck: Yes: Supple, Trachea Midline Cardiovascular: Yes: Regular Rate and Rhythm, S1, S2 Respiratory: Yes: Regular, CTA Bilaterally Gastrointestinal: Yes: Normal Bowel Sounds, Soft Musculoskeletal: Yes: Joint Stiffness Edema: No Peripheral Pulses WNL: Yes Labs: CBC, BMP 04/22/19 06:13 04/24/19 07:27 INR, PTT INR 1.03 (0.83-1.09) 04/06/19 19:45 Problem List - Problems (1) Pulmonary hypertension Code(s): I27.20 - PULMONARY HYPERTENSION, UNSPECIFIED (2) GERD (gastroesophageal reflux disease) Code(s): K21.9 - GASTRO-ESOPHAGEAL REFLUX DISEASE WITHOUT ESOPHAGITIS (3) Acute diastolic (congestive) heart failure Code(s): I50.31 - ACUTE DIASTOLIC (CONGESTIVE) HEART FAILURE (4) Acute exacerbation of chronic obstructive pulmonary disease Code(s): J44.1 - CHRONIC OBSTRUCTIVE PULMONARY DISEASE W (ACUTE) EXACERBATION (5) Acute hypoxemic respiratory failure Code(s): J96.01 - ACUTE RESPIRATORY FAILURE WITH HYPOXIA (6) Bipolar 1 disorder Code(s): F31.9 - BIPOLAR DISORDER, UNSPECIFIED (7) Bronchiectasis Code(s): J47.9 - BRONCHIECTASIS, UNCOMPLICATED (8) CHF (congestive heart failure), NYHA class II Code(s): I50.9 - HEART FAILURE, UNSPECIFIED (9) Chronic kidney disease (CKD) Code(s): N18.9 - CHRONIC KIDNEY DISEASE, UNSPECIFIED (10) Elevated troponin Code(s): R74.8 - ABNORMAL LEVELS OF OTHER SERUM ENZYMES (11) Emphysema of lung Code(s): J43.9 - EMPHYSEMA, UNSPECIFIED (12) Hypotension Code(s): I95.9 - HYPOTENSION, UNSPECIFIED (13) HTN (hypertension) Code(s): I10 - ESSENTIAL (PRIMARY) HYPERTENSION (14) Insomnia disorder Code(s): G47.00 - INSOMNIA, UNSPECIFIED Assessment/Plan (1) Pulmonary hypertension Code(s): I27.20 - PULMONARY HYPERTENSION, UNSPECIFIED (2) GERD (gastroesophageal reflux disease) Code(s): K21.9 - GASTRO-ESOPHAGEAL REFLUX DISEASE WITHOUT ESOPHAGITIS (3) Acute diastolic (congestive) heart failure Code(s): I50.31 - ACUTE DIASTOLIC (CONGESTIVE) HEART FAILURE (4) Acute exacerbation of chronic obstructive pulmonary disease Code(s): J44.1 - CHRONIC OBSTRUCTIVE PULMONARY DISEASE W (ACUTE) EXACERBATION (5) Acute hypoxemic respiratory failure Code(s): J96.01 - ACUTE RESPIRATORY FAILURE WITH HYPOXIA (6) Bipolar 1 disorder Code(s): F31.9 - BIPOLAR DISORDER, UNSPECIFIED (7) Bronchiectasis Code(s): J47.9 - BRONCHIECTASIS, UNCOMPLICATED (8) CHF (congestive heart failure), NYHA class II Code(s): I50.9 - HEART FAILURE, UNSPECIFIED (9) Chronic kidney disease (CKD) Code(s): N18.9 - CHRONIC KIDNEY DISEASE, UNSPECIFIED (10) Elevated troponin Code(s): R74.8 - ABNORMAL LEVELS OF OTHER SERUM ENZYMES (11) Emphysema of lung Code(s): J43.9 - EMPHYSEMA, UNSPECIFIED (12) Hypotension Code(s): I95.9 - HYPOTENSION, UNSPECIFIED (13) HTN (hypertension) Code(s): I10 - ESSENTIAL (PRIMARY) HYPERTENSION (14) Insomnia disorder Code(s): G47.00 - INSOMNIA, UNSPECIFIED Hypovolemic hyponatremia from poor solute intake + diuretics in setting of D5W infusion with antibiotics Pt is off IV bactrim NA level better Lasix 40 today
[2019-04-24] MEDS ORDERED: FUROSEMIDE 40 MG/4 ML INJECTABLE VIAL IVPUSH ONE (19:25)
[2019-04-24] MEDS: MELATONIN 5 MG TABLETS PO PRN (22:56)
[2019-04-25] MEDS: ALBUTEROL SO4 0.083% IH SOL 2.5 MG/3 ML VIAL.NEB. NEB SCH ×6 (00:30→20:31)
[2019-04-25] MEDS: NYSTATIN 500,000 UNITS/5 ML SUSPENSION PO SCH ×4 (06:39→23:04)
[2019-04-25 07:09] LABS: ARTERIAL BLOOD GAS BASE EXCESS 6.7 meq/l (-2-2); ARTERIAL BLOOD GAS PCO2 42.2 mmHg (35-45); ARTERIAL BLOOD GAS pH 7.47 (7.35-7.45)
[2019-04-25 07:11] LABS: ARTERIAL BLOOD GAS PO2 137 mmHg (80-100)
[2019-04-25 07:14] LABS: ALLENS TEST POSITIVE
[2019-04-25] MEDS ORDERED: PT OWN MED DRAWER 7, Y5N ONE ×6 (07:42→17:13)
--- NOTE | 2019-04-25 08:09 | HOSP ---
Subjective - Review of Symptoms Events since last encounter: Hospitalist Encounter Notified by the primary RN, that the patient's nasal cannula was out and the spo2 was 81%. She placed a NRB on and the Spo2- 100%. Was asked to assess. Orders placed, arrived to bedside, patient is alert and oriented on O2 denies SOB, CP or palpations. PE performed see EMR. Assessment: This is a 89 y/o man with a PMHx of HTN, COPD (O2 dep), Bronchiectasis, CKD. Admitted for COPD Exacerbation. Plan: ABG stat Portable Chest Xray stat Pulmonary: Yes: Dyspnea Physical Examination Vital Signs: Vital Signs Temperature 97.9 F 04/25/19 06:00 Pulse Rate 98 H 04/25/19 06:00 Respiratory Rate 20 04/25/19 06:00 Blood Pressure 108/57 L 04/25/19 06:00 O2 Sat by Pulse Oximetry (%) 96 04/23/19 09:00 Constitutional: Yes: No Distress, Calm, Thin Eyes: Yes: WNL, Conjunctiva Clear, EOM Intact, PERRL HENT: Yes: WNL, Atraumatic, Normocephalic Neck: Yes: WNL, Supple, Trachea Midline Cardiovascular: Yes: Regular Rate and Rhythm, Murmur, S1, S2 Respiratory: Yes: Diminished, On Nasal O2, Rales, Rhonchi, Wheezes Gastrointestinal: Yes: WNL, Normal Bowel Sounds, Soft ...Rectal Exam: Yes: Deferred Renal/: Yes: WNL Breast(s): Yes: WNL Musculoskeletal: Yes: WNL Extremities: Yes: WNL Edema: No Peripheral Pulses WNL: Yes Integumentary: Yes: Erythema Neurological: Yes: WNL, Alert, Oriented ...Motor Strength: WNL Psychiatric: Yes: WNL, Alert, Oriented Labs: CBC, BMP 04/22/19 06:13 04/24/19 07:27 Laboratory Results - last 24 hr 04/24/19 04/25/19 07:27 06:35 Anticoagulation Therapy No Result Required. Puncture Site Right radial ABG pH 7.47 H ABG pCO2 at Pt Temp 42.2 ABG pO2 at Pt Temp 137 H ABG HCO3 30.7 H ABG O2 Sat (Measured) 98.0 ABG O2 Content No Result Required. ABG Base Excess 6.7 H Zhou Test Positive O2 Delivery Device No Result Required. Oxygen Flow Rate Yes Vent Mode No Result Required. Vent Rate No Result Required. Mechanical Rate No Result Required. Pressure Support Vent No Result Required. Sodium 134 L Potassium 3.6 Chloride 93 L Carbon Dioxide 30 Anion Gap 11 BUN 54.6 H Creatinine 1.3 Est GFR (CKD-EPI)AfAm 56.86 Est GFR (CKD-EPI)NonAf 49.06 Random Glucose 92 Calcium 8.9 Current Medications Generic Name Dose Route Start Last Admin Trade Name Freq PRN Reason Stop Dose Admin Acetaminophen 650 mg 04/07/19 00:02 04/16/19 22:14 Tylenol - PO 650 mg Q4H PRN Administration PAIN LEVEL 1-5 Albuterol Sulfate 1 amp 04/22/19 09:52 04/23/19 05:46 Ventolin 0.083% Nebulizer Soln - NEB 1 amp Q4H PRN Administration SHORT OF BREATH/WHEEZING Albuterol Sulfate 1 amp 04/23/19 16:00 04/25/19 07:45 Ventolin 0.083% Nebulizer Soln - NEB 1 amp RQ4H NADIA Administration Ascorbic Acid 500 mg 04/07/19 22:00 04/24/19 22:49 Vitamin C - PO 500 mg BID NADIA Administration Budesonide/Formoterol Fumarate 2 puff 04/08/19 13:30 04/24/19 22:49 Symbicort 160/4.5mcg - IH 2 puff BID NADIA Administration Carbidopa/Levodopa 1 each 04/07/19 09:00 04/24/19 17:18 Sinemet 25/100 - PO 1 each TID@0900,1200,1700 NADIA Administration Melatonin 5 mg 04/17/19 04:26 04/24/19 22:56 Melatonin PO 5 mg HS PRN Administration INSOMNIA Nystatin 500,000 units 04/19/19 12:00 04/25/19 06:39 Nystatin Oral Suspension - PO 500,000 units Q6HPO NADIA Administration Pantoprazole Sodium 40 mg 04/07/19 10:00 04/24/19 22:49 Protonix Iv IVPUSH 40 mg BID NADIA Administration Prednisone 40 mg 04/21/19 10:00 04/24/19 09:15 Deltasone - PO 40 mg DAILY NADIA Administration Sertraline HCl 50 mg/ 75 mg 04/16/19 10:00 04/24/19 09:16 Sertraline HCl 25 mg PO 75 mg DAILY NADIA Administration Silver Sulfadiazine 1 applic 04/07/19 22:00 04/24/19 22:48 Silvadene - TP 1 applic BID NADIA Administration Sodium Chloride 1 gm 04/24/19 10:00 04/24/19 14:39 Sodium Chloride Tablet - PO 1 gm DAILY NADIA Administration Tiotropium [place] 2 puff 04/13/19 10:30 04/24/19 14:40 Spiriva Respimat IH 2 puff DAILY NADIA Administration Trimethoprim/Sulfamethoxazole 1 each 04/21/19 22:00 04/24/19 22:49 Bactrim Ds - PO 1 each BID NADIA Administration Zinc Oxide/Panthenol/Vitamin E 1 applic 04/07/19 22:00 04/24/19 22:49 Balmex Cream - TP 1 applic BID NADIA Administration Intake & Output 04/22/19 04/23/19 04/24/19 04/25/19 23:59 23:59 23:59 23:59 Intake Total 0 0 0 Output Total 300 3 Balance -300 0 0 -3 Weight 59.738 kg 59.647 kg 60.016 kg Hospitalist Encounter Outcome: ABG- 7.47/137/30.7/98 (taken on NRB) Chest Xray image- no change compared to prior study Patient tolerating nasal cannula without respiratory distress Continue with current regimen
[2019-04-25] MEDS ORDERED: SERTRALINE HCL 50 MG TABLET (FP) ONE (09:06)
[2019-04-25] MEDS ORDERED: SERTRALINE HCL 25 MG TABLET (FP) ONE (09:06)
[2019-04-25 09:20] LABS: BASO % 1.1 % (0-2.0); EOS % 0.2 % (0-4.5); HEMATOCRIT 38.3 % (35.4-49); HEMOGLOBIN 12.8 GM/dL (11.7-16.9); LYMPH % 2.6 % (8-40); MCH 32.1 pg (25.7-33.7); MCHC 33.3 g/dl (32.0-35.9); MEAN CELL VOLUME 96.4 fl (80-96); MEAN PLT VOLUME 8.7 fl (7.5-11.1); MONO % 2.3 % (3.8-10.2); NEUT % 93.8 % (42.8-82.8); PLATELET COUNT 195 K/MM3 (134-434); RBC 3.97 M/mm3 (4.00-5.60); RDW 16.2 % (11.9-15.9); WHITE BLOOD COUNT 24.6 K/mm3 (4.0-10.0)
[2019-04-25] MEDS: predniSONE 20 MG TABLET (UD) PO SCH (09:20)
[2019-04-25] MEDS: CARBIDOPA/LEVODOPA 25/100 TABLET (FP) PO SCH ×3 (09:20→17:18)
[2019-04-25] MEDS: SULFAMETHOXAZOLE/TRIMETHOPRIM 800MG/160MG D.S. TABLET PO SCH ×2 (09:20→23:04)
[2019-04-25] MEDS: SODIUM CHLORIDE 1 GM TABLET PO SCH (09:20)
[2019-04-25] MEDS: SERTRALINE HCL 50 MG, SERTRALINE HCL 25 MG PO SCH (09:21)
[2019-04-25] MEDS: ASCORBIC ACID 500 MG TABLET (FP) PO SCH ×2 (09:21→23:04)
[2019-04-25] MEDS: PANTOPRAZOLE SODIUM 40 MG VIAL IVPUSH SCH (09:21)
[2019-04-25] MEDS: TIOTROPIUM BROMIDE 2.5 MCG (SPIRIVA) RESPIMAT INHALER IH SCH (09:21)
[2019-04-25] MEDS: BUDESONIDE/FORMETEROL FUMARATE 160/4.5 mcg INHALER IH SCH ×2 (09:21→23:03)
[2019-04-25] MEDS: ZINC OXIDE/PANTHENOL/VITAMIN E 56 GM TUBE TP SCH ×2 (09:22→23:03)
[2019-04-25] MEDS: SILVER SULFADIAZINE 1% TOP CREAM 50 GM JAR TP SCH ×2 (09:23→23:03)
[2019-04-25 10:00] LABS: BLOOD UREA NITROGEN 58.4 mg/dL (7-18); CALCIUM 9.3 mg/dL (8.5-10.1); CREATININE 1.2 mg/dL (0.55-1.3); POTASSIUM 3.6 mmol/L (3.5-5.1)
--- NOTE | 2019-04-25 10:20 | PN ---
Progress Note (short form) - Note Progress Note: NC O2 came off early AM And desaturated to 81% on RA. Now on 3 L NC O2 and feels better. Still with cough. Intake & Output 04/22/19 04/23/19 04/24/19 04/25/19 23:59 23:59 23:59 23:59 Intake Total 0 0 0 Output Total 300 3 Balance -300 0 0 -3 Weight 131 lb 11.2 oz 131 lb 8 oz 132 lb 5 oz Last Vital Signs Temp Pulse Resp BP Pulse Ox 97.9 F 98 H 20 108/57 L 96 04/25/19 06:00 04/25/19 06:00 04/25/19 06:00 04/25/19 06:00 04/23/19 09:00 Active Medications Acetaminophen (Tylenol -) 650 mg PO Q4H PRN PRN Reason: PAIN LEVEL 1-5 Last Admin: 04/16/19 22:14 Dose: 650 mg Albuterol Sulfate (Ventolin 0.083% Nebulizer Soln -) 1 amp NEB Q4H PRN PRN Reason: SHORT OF BREATH/WHEEZING Last Admin: 04/23/19 05:46 Dose: 1 amp Albuterol Sulfate (Ventolin 0.083% Nebulizer Soln -) 1 amp NEB RQ4H [facility] Last Admin: 04/25/19 07:45 Dose: 1 amp Ascorbic Acid (Vitamin C -) 500 mg PO BID [facility] Last Admin: 04/25/19 09:21 Dose: 500 mg Budesonide/Formoterol Fumarate (Symbicort 160/4.5mcg -) 2 puff IH BID [facility] Last Admin: 04/25/19 09:21 Dose: 2 puff Carbidopa/Levodopa (Sinemet 25/100 -) 1 each PO TID@0900,1200,1700 [facility] Last Admin: 04/25/19 09:20 Dose: 1 each Melatonin (Melatonin) 5 mg PO HS PRN PRN Reason: INSOMNIA Last Admin: 04/24/19 22:56 Dose: 5 mg Nystatin (Nystatin Oral Suspension -) 500,000 units PO Q6HPO [facility] Last Admin: 04/25/19 06:39 Dose: 500,000 units Pantoprazole Sodium (Protonix Iv) 40 mg IVPUSH BID [facility] Last Admin: 01/05/20 09:21 Dose: 40 mg Prednisone (Deltasone -) 40 mg PO DAILY [facility] Last Admin: 04/25/19 09:20 Dose: 40 mg Sertraline HCl 50 mg/ (Sertraline HCl 25 mg) 75 mg PO DAILY [facility] Last Admin: 04/25/19 09:21 Dose: 75 mg Silver Sulfadiazine (Silvadene -) 1 applic TP BID [facility] Last Admin: 04/25/19 09:23 Dose: 1 applic Sodium Chloride (Sodium Chloride Tablet -) 1 gm PO DAILY [facility] Last Admin: 04/25/19 09:20 Dose: 1 gm Tiotropium [place] (Spiriva Respimat) 2 puff IH DAILY [facility] Last Admin: 04/25/19 09:21 Dose: 2 puff Trimethoprim/Sulfamethoxazole (Bactrim Ds -) 1 each PO BID [facility] Last Admin: 04/25/19 09:20 Dose: 1 each Zinc Oxide/Panthenol/Vitamin E (Balmex Cream -) 1 applic TP BID [facility] Last Admin: 04/25/19 09:22 Dose: 1 applic Gen: NAD at rest on 3 L NC O2 Heart: RRR Lung: scattered bilateral rhonchi, no wheeze Abd: soft, nontender Ext: no edema Laboratory Results - last 24 hr 04/25/19 04/25/19 04/25/19 06:35 07:35 07:35 WBC 24.6 H RBC 3.97 L Hgb 12.8 Hct 38.3 D MCV 96.4 H MCH 32.1 MCHC 33.3 RDW 16.2 H Plt Count 195 MPV 8.7 Absolute Neuts (auto) 23.1 H Neutrophils % 93.8 H Lymphocytes % 2.6 L Monocytes % 2.3 L Eosinophils % 0.2 D Basophils % 1.1 D Nucleated RBC % 0 Anticoagulation Therapy No Result Required. Puncture Site Right radial ABG pH 7.47 H ABG pCO2 at Pt Temp 42.2 ABG pO2 at Pt Temp 137 H ABG HCO3 30.7 H ABG O2 Sat (Measured) 98.0 ABG O2 Content No Result Required. ABG Base Excess 6.7 H Zhou Test Positive O2 Delivery Device No Result Required. Oxygen Flow Rate Yes Vent Mode No Result Required. Vent Rate No Result Required. Mechanical Rate No Result Required. Pressure Support Vent No Result Required. Sodium 140 Potassium 3.6 Chloride 96 L Carbon Dioxide 34 H Anion Gap 10 BUN 58.4 H Creatinine 1.2 Est GFR (CKD-EPI)AfAm 62.64 Est GFR (CKD-EPI)NonAf 54.04 Random Glucose 126 H Calcium 9.3 Problem List - Problems (1) COPD exacerbation Code(s): J44.1 - CHRONIC OBSTRUCTIVE PULMONARY DISEASE W (ACUTE) EXACERBATION A/P Acute COPD Exacerbation Chronic Hypoxic Respiratory Failure Severe Pulmonary HTN CAD HTN Progressive Hyponatremia due to hypotonic saline and diuretics - Inhaled bronchodilators - Symbicort - O2 to keep SpO2 >90% - DVT prophylaxis - Prednisone taper - DC planning Dr Martinez
[2019-04-25 10:47] LABS: ANISOCYTOSIS 0; MACROCYTOSIS 0; PLATELET ESTIMATE NORMAL
[2019-04-25] MEDS: methylPREDNISolone NA SUCC 40 MG/1 ML VIAL IVPUSH SCH ×2 (14:03→17:19)
--- NOTE | 2019-04-25 14:06 | PN ---
Progress Note, Physician History of Present Illness: Pt had an episode of Desat when off o2 at night Pt is very SOb Pt is not eating well Pt had raised WBC 24 clinically he is not improving Discussed with ID on floor we will Change to IV solumedrol discussed also with with manager social work Beth also Pt need to be on Home o2 also - Current Medication List Current Medications: Active Medications Acetaminophen (Tylenol -) 650 mg PO Q4H PRN PRN Reason: PAIN LEVEL 1-5 Last Admin: 04/16/19 22:14 Dose: 650 mg Albuterol Sulfate (Ventolin 0.083% Nebulizer Soln -) 1 amp NEB Q4H PRN PRN Reason: SHORT OF BREATH/WHEEZING Last Admin: 04/23/19 05:46 Dose: 1 amp Albuterol Sulfate (Ventolin 0.083% Nebulizer Soln -) 1 amp NEB RQ4H [facility] Last Admin: 04/25/19 11:40 Dose: 1 amp Ascorbic Acid (Vitamin C -) 500 mg PO BID [facility] Last Admin: 04/25/19 09:21 Dose: 500 mg Budesonide/Formoterol Fumarate (Symbicort 160/4.5mcg -) 2 puff IH BID [facility] Last Admin: 04/25/19 09:21 Dose: 2 puff Carbidopa/Levodopa (Sinemet 25/100 -) 1 each PO TID@0900,1200,1700 [facility] Last Admin: 04/25/19 12:34 Dose: 1 each Melatonin (Melatonin) 5 mg PO HS PRN PRN Reason: INSOMNIA Last Admin: 04/24/19 22:56 Dose: 5 mg Methylprednisolone Sodium Succinate (Solu-Medrol -) 40 mg IVPUSH Q8H-IV NADIA Nystatin (Nystatin Oral Suspension -) 500,000 units PO Q6HPO [facility] Last Admin: 04/25/19 12:34 Dose: 500,000 units Prednisone (Deltasone -) 40 mg PO DAILY [facility] Last Admin: 04/25/19 09:20 Dose: 40 mg Sertraline HCl 50 mg/ (Sertraline HCl 25 mg) 75 mg PO DAILY [facility] Last Admin: 04/25/19 09:21 Dose: 75 mg Silver Sulfadiazine (Silvadene -) 1 applic TP BID [facility] Last Admin: 04/25/19 09:23 Dose: 1 applic Sodium Chloride (Sodium Chloride Tablet -) 1 gm PO DAILY [facility] Last Admin: 04/25/19 09:20 Dose: 1 gm Tiotropium [place] (Spiriva Respimat) 2 puff IH DAILY [facility] Last Admin: 04/25/19 09:21 Dose: 2 puff Trimethoprim/Sulfamethoxazole (Bactrim Ds -) 1 each PO BID [facility] Last Admin: 04/25/19 09:20 Dose: 1 each Zinc Oxide/Panthenol/Vitamin E (Balmex Cream -) 1 applic TP BID [facility] Last Admin: 04/25/19 09:22 Dose: 1 applic - Objective Vital Signs: Vital Signs Temperature 98 F 04/25/19 09:15 Pulse Rate 89 04/25/19 09:15 Respiratory Rate 20 04/25/19 09:15 Blood Pressure 120/80 04/25/19 09:15 O2 Sat by Pulse Oximetry (%) 96 04/23/19 09:00 Constitutional: Yes: Anxious Eyes: Yes: Conjunctiva Clear, EOM Intact HENT: Yes: Atraumatic, Normocephalic Neck: Yes: Supple, Trachea Midline Cardiovascular: Yes: Regular Rate and Rhythm, S1, S2 Respiratory: Yes: Regular, CTA Bilaterally Gastrointestinal: Yes: Normal Bowel Sounds, Soft Labs: CBC, BMP 04/25/19 07:35 04/25/19 07:35 INR, PTT INR 1.03 (0.83-1.09) 04/06/19 19:45 Problem List - Problems (1) Pulmonary hypertension Code(s): I27.20 - PULMONARY HYPERTENSION, UNSPECIFIED (2) GERD (gastroesophageal reflux disease) Code(s): K21.9 - GASTRO-ESOPHAGEAL REFLUX DISEASE WITHOUT ESOPHAGITIS (3) Acute diastolic (congestive) heart failure Code(s): I50.31 - ACUTE DIASTOLIC (CONGESTIVE) HEART FAILURE (4) Acute exacerbation of chronic obstructive pulmonary disease Code(s): J44.1 - CHRONIC OBSTRUCTIVE PULMONARY DISEASE W (ACUTE) EXACERBATION (5) Acute hypoxemic respiratory failure Code(s): J96.01 - ACUTE RESPIRATORY FAILURE WITH HYPOXIA (6) Bipolar 1 disorder Code(s): F31.9 - BIPOLAR DISORDER, UNSPECIFIED (7) Bronchiectasis Code(s): J47.9 - BRONCHIECTASIS, UNCOMPLICATED (8) CHF (congestive heart failure), NYHA class II Code(s): I50.9 - HEART FAILURE, UNSPECIFIED (9) Chronic kidney disease (CKD) Code(s): N18.9 - CHRONIC KIDNEY DISEASE, UNSPECIFIED (10) Elevated troponin Code(s): R74.8 - ABNORMAL LEVELS OF OTHER SERUM ENZYMES (11) Emphysema of lung Code(s): J43.9 - EMPHYSEMA, UNSPECIFIED (12) Hypotension Code(s): I95.9 - HYPOTENSION, UNSPECIFIED (13) HTN (hypertension) Code(s): I10 - ESSENTIAL (PRIMARY) HYPERTENSION (14) Insomnia disorder Code(s): G47.00 - INSOMNIA, UNSPECIFIED Assessment/Plan (1) Pulmonary hypertension Code(s): I27.20 - PULMONARY HYPERTENSION, UNSPECIFIED (2) GERD (gastroesophageal reflux disease) Code(s): K21.9 - GASTRO-ESOPHAGEAL REFLUX DISEASE WITHOUT ESOPHAGITIS (3) Acute diastolic (congestive) heart failure Code(s): I50.31 - ACUTE DIASTOLIC (CONGESTIVE) HEART FAILURE (4) Acute exacerbation of chronic obstructive pulmonary disease Code(s): J44.1 - CHRONIC OBSTRUCTIVE PULMONARY DISEASE W (ACUTE) EXACERBATION (5) Acute hypoxemic respiratory failure Code(s): J96.01 - ACUTE RESPIRATORY FAILURE WITH HYPOXIA (6) Bipolar 1 disorder Code(s): F31.9 - BIPOLAR DISORDER, UNSPECIFIED (7) Bronchiectasis Code(s): J47.9 - BRONCHIECTASIS, UNCOMPLICATED (8) CHF (congestive heart failure), NYHA class II Code(s): I50.9 - HEART FAILURE, UNSPECIFIED (9) Chronic kidney disease (CKD) Code(s): N18.9 - CHRONIC KIDNEY DISEASE, UNSPECIFIED (10) Elevated troponin Code(s): R74.8 - ABNORMAL LEVELS OF OTHER SERUM ENZYMES (11) Emphysema of lung Code(s): J43.9 - EMPHYSEMA, UNSPECIFIED (12) Hypotension Code(s): I95.9 - HYPOTENSION, UNSPECIFIED (13) HTN (hypertension) Code(s): I10 - ESSENTIAL (PRIMARY) HYPERTENSION (14) Insomnia disorder Code(s): G47.00 - INSOMNIA, UNSPECIFIED Pt is critically ill not improving today WBC 24 had an episode of Desat with o2 Pt severely SOB discussed with ID let us give IV solumedrol rather than Po we will discuss with pulmonary also
--- NOTE | 2019-04-25 14:15 | PN ---
Progress Note, Physician History of Present Illness: Pt remains SOB, unable to bring up sputum. WBC increased since, currently on Bactrim PO. Case d/w Dr. Chen. - Current Medication List Current Medications: Active Medications Acetaminophen (Tylenol -) 650 mg PO Q4H PRN PRN Reason: PAIN LEVEL 1-5 Last Admin: 04/16/19 22:14 Dose: 650 mg Albuterol Sulfate (Ventolin 0.083% Nebulizer Soln -) 1 amp NEB Q4H PRN PRN Reason: SHORT OF BREATH/WHEEZING Last Admin: 04/23/19 05:46 Dose: 1 amp Albuterol Sulfate (Ventolin 0.083% Nebulizer Soln -) 1 amp NEB RQ4H [facility] Last Admin: 04/25/19 11:40 Dose: 1 amp Ascorbic Acid (Vitamin C -) 500 mg PO BID [facility] Last Admin: 04/25/19 09:21 Dose: 500 mg Budesonide/Formoterol Fumarate (Symbicort 160/4.5mcg -) 2 puff IH BID [facility] Last Admin: 04/25/19 09:21 Dose: 2 puff Carbidopa/Levodopa (Sinemet 25/100 -) 1 each PO TID@0900,1200,1700 [facility] Last Admin: 04/25/19 12:34 Dose: 1 each Melatonin (Melatonin) 5 mg PO HS PRN PRN Reason: INSOMNIA Last Admin: 04/24/19 22:56 Dose: 5 mg Methylprednisolone Sodium Succinate (Solu-Medrol -) 40 mg IVPUSH Q8H-IV [facility] Last Admin: 04/25/19 14:03 Dose: 40 mg Nystatin (Nystatin Oral Suspension -) 500,000 units PO Q6HPO [facility] Last Admin: 04/25/19 12:34 Dose: 500,000 units Prednisone (Deltasone -) 40 mg PO DAILY [facility] Last Admin: 04/25/19 09:20 Dose: 40 mg Sertraline HCl 50 mg/ (Sertraline HCl 25 mg) 75 mg PO DAILY [facility] Last Admin: 04/25/19 09:21 Dose: 75 mg Silver Sulfadiazine (Silvadene -) 1 applic TP BID [facility] Last Admin: 04/25/19 09:23 Dose: 1 applic Sodium Chloride (Sodium Chloride Tablet -) 1 gm PO DAILY [facility] Last Admin: 04/25/19 09:20 Dose: 1 gm Tiotropium [place] (Spiriva Respimat) 2 puff IH DAILY [facility] Last Admin: 04/25/19 09:21 Dose: 2 puff Trimethoprim/Sulfamethoxazole (Bactrim Ds -) 1 each PO BID [facility] Last Admin: 04/25/19 09:20 Dose: 1 each Zinc Oxide/Panthenol/Vitamin E (Balmex Cream -) 1 applic TP BID [facility] Last Admin: 04/25/19 09:22 Dose: 1 applic - Objective Vital Signs: Vital Signs Temperature 98 F 04/25/19 09:15 Pulse Rate 89 04/25/19 09:15 Respiratory Rate 20 04/25/19 09:15 Blood Pressure 120/80 04/25/19 09:15 O2 Sat by Pulse Oximetry (%) 96 04/23/19 09:00 Constitutional: Yes: Mild Distress Cardiovascular: Yes: Regular Rate and Rhythm Respiratory: Yes: On Nasal O2, Rhonchi Gastrointestinal: Yes: Normal Bowel Sounds, Soft Neurological: Yes: Alert Labs: CBC, BMP 04/25/19 07:35 04/25/19 07:35 INR, PTT INR 1.03 (0.83-1.09) 04/06/19 19:45 Microbiology 04/19/19 07:10 Blood - Peripheral Venous Blood Culture - Final NO GROWTH AFTER 5 DAYS INCUBATION 04/19/19 07:15 Blood - Peripheral Venous Blood Culture - Final NO GROWTH AFTER 5 DAYS INCUBATION 04/10/19 11:30 Sputum - Expectorated Gram Stain - Final 04/10/19 11:30 Sputum - Expectorated Sputum Culture - Final Stenotrophomon.(X.)Maltophilia - ....Imaging Chest X-ray: Report Reviewed Problem List - Problems (1) Pulmonary hypertension Code(s): I27.20 - PULMONARY HYPERTENSION, UNSPECIFIED (2) Acute exacerbation of chronic obstructive pulmonary disease Code(s): J44.1 - CHRONIC OBSTRUCTIVE PULMONARY DISEASE W (ACUTE) EXACERBATION (3) Acute hypoxemic respiratory failure Code(s): J96.01 - ACUTE RESPIRATORY FAILURE WITH HYPOXIA (4) Bipolar 1 disorder Code(s): F31.9 - BIPOLAR DISORDER, UNSPECIFIED (5) Bronchiectasis Code(s): J47.9 - BRONCHIECTASIS, UNCOMPLICATED (6) CHF (congestive heart failure) Code(s): I50.9 - HEART FAILURE, UNSPECIFIED (7) Emphysema of lung Code(s): J43.9 - EMPHYSEMA, UNSPECIFIED (8) HTN (hypertension) Code(s): I10 - ESSENTIAL (PRIMARY) HYPERTENSION (9) Renal failure Code(s): N19 - UNSPECIFIED KIDNEY FAILURE (10) SOB (shortness of breath) Code(s): R06.02 - SHORTNESS OF BREATH Assessment/Plan Persistent/worsening leukocytosis d/w PMD, to restart broad spectrum antibiotics in addition to Bactrim po -- monitor renal function closely, Vancomycin trough prior to 4th dose Pt switched to IV steroids Hyponatremia resolved continue monitor wbc /bmp/ vitals
[2019-04-25] MEDS ORDERED: MEROPENEM 1 GM VIAL (RESTRICTED TO ID) IVPB ONE (15:18)
[2019-04-25] MEDS ORDERED: DEXTROSE 5%-WATER 100 ML IVPB ONE (15:18)
[2019-04-25] MEDS: MEROPENEM 1 GM in DEXTROSE 5%-WATER 100 ML IVPB SCH (15:21)
[2019-04-25] MEDS: VANCOMYCIN 750 MG in DEXTROSE 5%-WATER - 250 ML IVPB SCH (16:32)
[2019-04-25 16:35] LABS: ARTERIAL BLD GAS O2 SATURATION 92.2 % (95-98); ARTERIAL BLOOD GAS BASE EXCESS 6.5 meq/l (-2-2); ARTERIAL BLOOD GAS PCO2 39.1 mmHg (35-45); ARTERIAL BLOOD GAS PO2 65.2 mmHg (80-100)
[2019-04-25 16:37] LABS: ALLENS TEST POSITIVE
[2019-04-26] MEDS: ALBUTEROL SO4 0.083% IH SOL 2.5 MG/3 ML VIAL.NEB. NEB SCH ×6 (01:07→20:15)
[2019-04-26] MEDS ORDERED: MEROPENEM 1 GM VIAL (RESTRICTED TO ID) IVPB ONE ×2 (02:01→14:26)
[2019-04-26] MEDS ORDERED: DEXTROSE 5%-WATER 100 ML IVPB ONE ×2 (02:01→14:26)
[2019-04-26] MEDS: MEROPENEM 1 GM in DEXTROSE 5%-WATER 100 ML IVPB SCH ×2 (02:05→14:30)
[2019-04-26] MEDS: methylPREDNISolone NA SUCC 40 MG/1 ML VIAL IVPUSH SCH ×3 (02:05→17:36)
[2019-04-26] MEDS: NYSTATIN 500,000 UNITS/5 ML SUSPENSION PO SCH ×3 (05:25→17:36)
[2019-04-26] MEDS: ALBUTEROL SO4 0.083% IH SOL 2.5 MG/3 ML VIAL.NEB. NEB PRN (05:36)
[2019-04-26 05:59] LABS: ARTERIAL BLD GAS O2 SATURATION 89.4 % (95-98); ARTERIAL BLOOD GAS BASE EXCESS 7.9 meq/l (-2-2); ARTERIAL BLOOD GAS PCO2 40.9 mmHg (35-45); ARTERIAL BLOOD GAS PO2 58.1 mmHg (80-100)
[2019-04-26 06:00] LABS: ALLENS TEST POSITIVE
[2019-04-26 08:04] LABS: BASO % 0.2 % (0-2.0); EOS % 0.1 % (0-4.5); HEMATOCRIT 37.5 % (35.4-49); HEMOGLOBIN 12.4 GM/dL (11.7-16.9); LYMPH % 2.2 % (8-40); MCH 31.6 pg (25.7-33.7); MCHC 33.1 g/dl (32.0-35.9); MEAN CELL VOLUME 95.4 fl (80-96); MEAN PLT VOLUME 8.4 fl (7.5-11.1); MONO % 1.6 % (3.8-10.2); NEUT % 95.9 % (42.8-82.8); PLATELET COUNT 195 K/MM3 (134-434); RBC 3.93 M/mm3 (4.00-5.60); RDW 16.2 % (11.9-15.9); WHITE BLOOD COUNT 23.9 K/mm3 (4.0-10.0)
[2019-04-26 08:27] LABS: BLOOD UREA NITROGEN 71.2 mg/dL (7-18); CALCIUM 9.5 mg/dL (8.5-10.1); CREATININE 1.4 mg/dL (0.55-1.3); N-TERMINAL BNP 1334.7 pg/ml (5-450); POTASSIUM 3.9 mmol/L (3.5-5.1)
[2019-04-26] MEDS ORDERED: SERTRALINE HCL 50 MG TABLET (FP) ONE (09:02)
[2019-04-26] MEDS ORDERED: SERTRALINE HCL 25 MG TABLET (FP) ONE (09:02)
[2019-04-26] MEDS: SERTRALINE HCL 50 MG, SERTRALINE HCL 25 MG PO SCH (09:32)
[2019-04-26] MEDS: CARBIDOPA/LEVODOPA 25/100 TABLET (FP) PO SCH ×4 (09:33→22:24)
[2019-04-26] MEDS: ASCORBIC ACID 500 MG TABLET (FP) PO SCH ×2 (09:33→22:24)
[2019-04-26] MEDS: SULFAMETHOXAZOLE/TRIMETHOPRIM 800MG/160MG D.S. TABLET PO SCH ×2 (09:33→22:24)
[2019-04-26] MEDS: ZINC OXIDE/PANTHENOL/VITAMIN E 56 GM TUBE TP SCH ×2 (09:34→22:35)
[2019-04-26] MEDS: SODIUM CHLORIDE 1 GM TABLET PO SCH (09:34)
[2019-04-26] MEDS: SILVER SULFADIAZINE 1% TOP CREAM 50 GM JAR TP SCH ×2 (09:34→22:31)
[2019-04-26] MEDS: BUDESONIDE/FORMETEROL FUMARATE 160/4.5 mcg INHALER IH SCH ×2 (09:35→22:30)
[2019-04-26] MEDS: TIOTROPIUM BROMIDE 2.5 MCG (SPIRIVA) RESPIMAT INHALER IH SCH (09:35)
--- NOTE | 2019-04-26 10:00 | PN ---
Progress Note (short form) - Note Progress Note: Events noted. Started on broad spectrum ABX due to elevated WBC. Still with congested cough. No CP. Intake & Output 04/23/19 04/24/19 04/25/19 04/26/19 23:59 23:59 23:59 23:59 Intake Total 0 0 350 100 Output Total 53 Balance 0 0 297 100 Weight 131 lb 8 oz 132 lb 5 oz 133 lb 8 oz Last Vital Signs Temp Pulse Resp BP Pulse Ox 98.1 F 104 H 22 H 137/77 97 04/26/19 06:20 04/26/19 06:20 04/26/19 06:20 04/26/19 06:20 04/25/19 21:00 Active Medications Acetaminophen (Tylenol -) 650 mg PO Q4H PRN PRN Reason: PAIN LEVEL 1-5 Last Admin: 04/16/19 22:14 Dose: 650 mg Albuterol Sulfate (Ventolin 0.083% Nebulizer Soln -) 1 amp NEB Q4H PRN PRN Reason: SHORT OF BREATH/WHEEZING Last Admin: 04/26/19 05:36 Dose: 1 amp Albuterol Sulfate (Ventolin 0.083% Nebulizer Soln -) 1 amp NEB RQ4H [facility] Last Admin: 04/26/19 08:22 Dose: 1 amp Ascorbic Acid (Vitamin C -) 500 mg PO BID [facility] Last Admin: 04/26/19 09:33 Dose: 500 mg Budesonide/Formoterol Fumarate (Symbicort 160/4.5mcg -) 2 puff IH BID [facility] Last Admin: 04/26/19 09:35 Dose: 2 puff Carbidopa/Levodopa (Sinemet 25/100 -) 1 each PO TID@0900,1200,1700 [facility] Last Admin: 04/26/19 09:33 Dose: 1 each Vancomycin HCl 750 mg/ (Dextrose) 250 mls @ 150 mls/hr IVPB Q24H [facility]; Protocol Last Admin: 04/25/19 16:32 Dose: 150 mls/hr Meropenem 1 gm/ Dextrose 100 mls @ 200 mls/hr IVPB Q12H [facility] Last Admin: 04/26/19 02:05 Dose: 200 mls/hr Melatonin (Melatonin) 5 mg PO HS PRN PRN Reason: INSOMNIA Last Admin: 04/24/19 22:56 Dose: 5 mg Methylprednisolone Sodium Succinate (Solu-Medrol -) 40 mg IVPUSH Q8H-IV [facility] Last Admin: 04/26/19 09:33 Dose: 40 mg Nystatin (Nystatin Oral Suspension -) 500,000 units PO Q6HPO [facility] Last Admin: 04/26/19 05:25 Dose: 500,000 units Sertraline HCl 50 mg/ (Sertraline HCl 25 mg) 75 mg PO DAILY [facility] Last Admin: 04/26/19 09:32 Dose: 75 mg Silver Sulfadiazine (Silvadene -) 1 applic TP BID [facility] Last Admin: 04/26/19 09:34 Dose: 1 applic Sodium Chloride (Sodium Chloride Tablet -) 1 gm PO DAILY [facility] Last Admin: 04/26/19 09:34 Dose: 1 gm Tiotropium [place] (Spiriva Respimat) 2 puff IH DAILY [facility] Last Admin: 04/26/19 09:35 Dose: 2 puff Trimethoprim/Sulfamethoxazole (Bactrim Ds -) 1 each PO BID [facility] Last Admin: 04/26/19 09:33 Dose: 1 each Zinc Oxide/Panthenol/Vitamin E (Balmex Cream -) 1 applic TP BID [facility] Last Admin: 04/26/19 09:34 Dose: 1 applic Gen: Mildly tachypneic at rest on NC O2 Heart: RRR Lung: scattered bilateral rhonchi, no wheeze Abd: soft, nontender Ext: no edema Laboratory Results - last 24 hr 04/25/19 04/25/19 04/25/19 07:35 07:35 16:15 WBC RBC Hgb Hct MCV MCH MCHC RDW Plt Count MPV Absolute Neuts (auto) Neutrophils % Neutrophils % (Manual) 92.3 H Band Neutrophils % 1.0 Lymphocytes % Lymphocytes % (Manual) 4.8 L D Monocytes % Monocytes % (Manual) 1 L Eosinophils % Eosinophils % (Manual) 0.0 Basophils % Basophils % (Manual) 0.0 Myelocytes % (Man) 0 Promyelocytes % (Man) 0 Blast Cells % (Manual) 0 Nucleated RBC % 0 Metamyelocytes 0 D Hypochromia 0 Platelet Estimate Normal Platelet Comment Present Polychromasia 1+ Poikilocytosis 0 Anisocytosis 0 Microcytosis 1+ Macrocytosis 0 Anticoagulation Therapy No Result Required. Puncture Site Right radial ABG pH 7.50 H ABG pCO2 at Pt Temp 39.1 ABG pO2 at Pt Temp 65.2 L ABG HCO3 29.9 H ABG O2 Sat (Measured) 92.2 L ABG O2 Content 17.4 ABG Base Excess 6.5 H Zhou Test Positive O2 Delivery Device Nasal can Oxygen Flow Rate Yes Vent Mode No Result Required. Vent Rate No Result Required. Mechanical Rate No Result Required. Pressure Support Vent No Result Required. Sodium 140 Potassium 3.6 Chloride 96 L Carbon Dioxide 34 H Anion Gap 10 BUN 58.4 H Creatinine 1.2 Est GFR (CKD-EPI)AfAm 62.64 Est GFR (CKD-EPI)NonAf 54.04 Random Glucose 126 H Calcium 9.3 C-Reactive Protein B-Natriuretic Peptide 04/26/19 04/26/19 04/26/19 05:46 06:10 06:10 WBC 23.9 H RBC 3.93 L Hgb 12.4 Hct 37.5 MCV 95.4 MCH 31.6 MCHC 33.1 RDW 16.2 H Plt Count 195 MPV 8.4 Absolute Neuts (auto) 23.0 H Neutrophils % 95.9 H Neutrophils % (Manual) Band Neutrophils % Lymphocytes % 2.2 L Lymphocytes % (Manual) Monocytes % 1.6 L Monocytes % (Manual) Eosinophils % 0.1 Eosinophils % (Manual) Basophils % 0.2 Basophils % (Manual) Myelocytes % (Man) Promyelocytes % (Man) Blast Cells % (Manual) Nucleated RBC % 0 Metamyelocytes Hypochromia Platelet Estimate Platelet Comment Polychromasia Poikilocytosis Anisocytosis Microcytosis Macrocytosis Anticoagulation Therapy No Result Required. Puncture Site Right radial ABG pH 7.50 H ABG pCO2 at Pt Temp 40.9 ABG pO2 at Pt Temp 58.1 L ABG HCO3 31.6 H ABG O2 Sat (Measured) 89.4 L ABG O2 Content 15.0 ABG Base Excess 7.9 H Zhou Test Positive O2 Delivery Device Aerosol mask Oxygen Flow Rate 5 l Vent Mode No Result Required. Vent Rate No Result Required. Mechanical Rate No Result Required. Pressure Support Vent No Result Required. Sodium 140 Potassium 3.9 Chloride 98 Carbon Dioxide 34 H Anion Gap 8 BUN 71.2 H Creatinine 1.4 H Est GFR (CKD-EPI)AfAm 51.99 Est GFR (CKD-EPI)NonAf 44.86 Random Glucose 141 H Calcium 9.5 C-Reactive Protein 6.9 H B-Natriuretic Peptide 1334.7 H Problem List - Problems (1) COPD exacerbation Code(s): J44.1 - CHRONIC OBSTRUCTIVE PULMONARY DISEASE W (ACUTE) EXACERBATION A/P Acute COPD Exacerbation Chronic Hypoxic Respiratory Failure Severe Pulmonary HTN CAD HTN Progressive Hyponatremia due to hypotonic saline and diuretics - ABX per ID - Inhaled bronchodilators - Symbicort - O2 to keep SpO2 >90% - DVT prophylaxis - Noted Medrol restarted: at this point, little benefit from higher dose steroids: can consider Prednisone Dr Martinez
[2019-04-26 10:10] LABS: ANISOCYTOSIS 0; MACROCYTOSIS 0; PLATELET ESTIMATE NORMAL
--- NOTE | 2019-04-26 11:04 | PN ---
Progress Note, Physician History of Present Illness: continues to be sob was started on abx and also on iv steroids very weak - Current Medication List Current Medications: Active Medications Acetaminophen (Tylenol -) 650 mg PO Q4H PRN PRN Reason: PAIN LEVEL 1-5 Last Admin: 04/16/19 22:14 Dose: 650 mg Albuterol Sulfate (Ventolin 0.083% Nebulizer Soln -) 1 amp NEB Q4H PRN PRN Reason: SHORT OF BREATH/WHEEZING Last Admin: 04/26/19 05:36 Dose: 1 amp Albuterol Sulfate (Ventolin 0.083% Nebulizer Soln -) 1 amp NEB RQ4H [facility] Last Admin: 04/26/19 08:22 Dose: 1 amp Ascorbic Acid (Vitamin C -) 500 mg PO BID [facility] Last Admin: 04/26/19 09:33 Dose: 500 mg Budesonide/Formoterol Fumarate (Symbicort 160/4.5mcg -) 2 puff IH BID [facility] Last Admin: 04/26/19 09:35 Dose: 2 puff Carbidopa/Levodopa (Sinemet 25/100 -) 1 each PO TID@0900,1200,1700 [facility] Last Admin: 04/26/19 09:33 Dose: 1 each Vancomycin HCl 750 mg/ (Dextrose) 250 mls @ 150 mls/hr IVPB Q24H [facility]; Protocol Last Admin: 04/25/19 16:32 Dose: 150 mls/hr Meropenem 1 gm/ Dextrose 100 mls @ 200 mls/hr IVPB Q12H [facility] Last Admin: 04/26/19 02:05 Dose: 200 mls/hr Melatonin (Melatonin) 5 mg PO HS PRN PRN Reason: INSOMNIA Last Admin: 04/24/19 22:56 Dose: 5 mg Methylprednisolone Sodium Succinate (Solu-Medrol -) 40 mg IVPUSH Q8H-IV [facility] Last Admin: 04/26/19 09:33 Dose: 40 mg Nystatin (Nystatin Oral Suspension -) 500,000 units PO Q6HPO [facility] Last Admin: 04/26/19 05:25 Dose: 500,000 units Sertraline HCl 50 mg/ (Sertraline HCl 25 mg) 75 mg PO DAILY [facility] Last Admin: 04/26/19 09:32 Dose: 75 mg Silver Sulfadiazine (Silvadene -) 1 applic TP BID [facility] Last Admin: 04/26/19 09:34 Dose: 1 applic Sodium Chloride (Sodium Chloride Tablet -) 1 gm PO DAILY [facility] Last Admin: 04/26/19 09:34 Dose: 1 gm Tiotropium [place] (Spiriva Respimat) 2 puff IH DAILY [facility] Last Admin: 04/26/19 09:35 Dose: 2 puff Trimethoprim/Sulfamethoxazole (Bactrim Ds -) 1 each PO BID [facility] Last Admin: 04/26/19 09:33 Dose: 1 each Zinc Oxide/Panthenol/Vitamin E (Balmex Cream -) 1 applic TP BID [facility] Last Admin: 04/26/19 09:34 Dose: 1 applic - Objective Vital Signs: Vital Signs Temperature 98.1 F 04/26/19 06:20 Pulse Rate 104 H 04/26/19 06:20 Respiratory Rate 22 H 04/26/19 06:20 Blood Pressure 137/77 04/26/19 06:20 O2 Sat by Pulse Oximetry (%) 97 04/25/19 21:00 Constitutional: Yes: Other Cardiovascular: Yes: S1, S2 Respiratory: Yes: On Nasal O2, Poor Air Entry, Wheezes, Other Gastrointestinal: Yes: Normal Bowel Sounds, Soft Musculoskeletal: Yes: WNL Extremities: Yes: WNL Neurological: Yes: Alert, Oriented Psychiatric: Yes: Alert, Oriented Labs: CBC, BMP 04/26/19 06:10 04/26/19 06:10 INR, PTT INR 1.03 (0.83-1.09) 04/06/19 19:45 Assessment/Plan Problem List - Problems (1) Pulmonary hypertension Code(s): I27.20 - PULMONARY HYPERTENSION, UNSPECIFIED (2) GERD (gastroesophageal reflux disease) Code(s): K21.9 - GASTRO-ESOPHAGEAL REFLUX DISEASE WITHOUT ESOPHAGITIS (3) Acute diastolic (congestive) heart failure Code(s): I50.31 - ACUTE DIASTOLIC (CONGESTIVE) HEART FAILURE (4) Acute exacerbation of chronic obstructive pulmonary disease Code(s): J44.1 - CHRONIC OBSTRUCTIVE PULMONARY DISEASE W (ACUTE) EXACERBATION (5) Acute hypoxemic respiratory failure Code(s): J96.01 - ACUTE RESPIRATORY FAILURE WITH HYPOXIA (6) Bipolar 1 disorder Code(s): F31.9 - BIPOLAR DISORDER, UNSPECIFIED (7) Bronchiectasis Code(s): J47.9 - BRONCHIECTASIS, UNCOMPLICATED (8) CHF (congestive heart failure), NYHA class II Code(s): I50.9 - HEART FAILURE, UNSPECIFIED (9) Chronic kidney disease (CKD) Code(s): N18.9 - CHRONIC KIDNEY DISEASE, UNSPECIFIED (10) Elevated troponin Code(s): R74.8 - ABNORMAL LEVELS OF OTHER SERUM ENZYMES (11) Emphysema of lung Code(s): J43.9 - EMPHYSEMA, UNSPECIFIED (12) Hypotension Code(s): I95.9 - HYPOTENSION, UNSPECIFIED (13) HTN (hypertension) Code(s): I10 - ESSENTIAL (PRIMARY) HYPERTENSION (14) Insomnia disorder Code(s): G47.00 - INSOMNIA, UNSPECIFIED plan will continue abx resp support patient not doing well monitor wbc rest as per the team
--- NOTE | 2019-04-26 12:36 | PN ---
Progress Note, Physician - Current Medication List Current Medications: Active Medications Acetaminophen (Tylenol -) 650 mg PO Q4H PRN PRN Reason: PAIN LEVEL 1-5 Last Admin: 04/16/19 22:14 Dose: 650 mg Albuterol Sulfate (Ventolin 0.083% Nebulizer Soln -) 1 amp NEB Q4H PRN PRN Reason: SHORT OF BREATH/WHEEZING Last Admin: 04/26/19 05:36 Dose: 1 amp Albuterol Sulfate (Ventolin 0.083% Nebulizer Soln -) 1 amp NEB RQ4H [facility] Last Admin: 04/26/19 12:13 Dose: 1 amp Ascorbic Acid (Vitamin C -) 500 mg PO BID [facility] Last Admin: 04/26/19 09:33 Dose: 500 mg Budesonide/Formoterol Fumarate (Symbicort 160/4.5mcg -) 2 puff IH BID [facility] Last Admin: 04/26/19 09:35 Dose: 2 puff Carbidopa/Levodopa (Sinemet 25/100 -) 1 each PO TID@0900,1200,1700 [facility] Last Admin: 04/26/19 09:33 Dose: 1 each Vancomycin HCl 750 mg/ (Dextrose) 250 mls @ 150 mls/hr IVPB Q24H [facility]; Protocol Last Admin: 04/25/19 16:32 Dose: 150 mls/hr Meropenem 1 gm/ Dextrose 100 mls @ 200 mls/hr IVPB Q12H [facility] Last Admin: 04/26/19 02:05 Dose: 200 mls/hr Melatonin (Melatonin) 5 mg PO HS PRN PRN Reason: INSOMNIA Last Admin: 04/24/19 22:56 Dose: 5 mg Methylprednisolone Sodium Succinate (Solu-Medrol -) 40 mg IVPUSH Q8H-IV [facility] Last Admin: 04/26/19 09:33 Dose: 40 mg Nystatin (Nystatin Oral Suspension -) 500,000 units PO Q6HPO [facility] Last Admin: 04/26/19 05:25 Dose: 500,000 units Sertraline HCl 50 mg/ (Sertraline HCl 25 mg) 75 mg PO DAILY [facility] Last Admin: 04/26/19 09:32 Dose: 75 mg Silver Sulfadiazine (Silvadene -) 1 applic TP BID [facility] Last Admin: 04/26/19 09:34 Dose: 1 applic Sodium Chloride (Sodium Chloride Tablet -) 1 gm PO DAILY [facility] Last Admin: 04/26/19 09:34 Dose: 1 gm Tiotropium [place] (Spiriva Respimat) 2 puff IH DAILY [facility] Last Admin: 04/26/19 09:35 Dose: 2 puff Trimethoprim/Sulfamethoxazole (Bactrim Ds -) 1 each PO BID [facility] Last Admin: 04/26/19 09:33 Dose: 1 each Zinc Oxide/Panthenol/Vitamin E (Balmex Cream -) 1 applic TP BID [facility] Last Admin: 04/26/19 09:34 Dose: 1 applic - Objective Vital Signs: Vital Signs Temperature 98.1 F 04/26/19 06:20 Pulse Rate 104 H 04/26/19 06:20 Respiratory Rate 22 H 04/26/19 06:20 Blood Pressure 137/77 04/26/19 06:20 O2 Sat by Pulse Oximetry (%) 97 04/25/19 21:00 Constitutional: Yes: Anxious Eyes: Yes: Conjunctiva Clear, EOM Intact HENT: Yes: Atraumatic, Normocephalic Neck: Yes: Supple, Trachea Midline Cardiovascular: Yes: Regular Rate and Rhythm Respiratory: Yes: CTA Bilaterally Gastrointestinal: Yes: Normal Bowel Sounds, Soft Labs: CBC, BMP 04/26/19 06:10 04/26/19 06:10 INR, PTT INR 1.03 (0.83-1.09) 04/06/19 19:45 Problem List - Problems (1) Pulmonary hypertension Code(s): I27.20 - PULMONARY HYPERTENSION, UNSPECIFIED (2) GERD (gastroesophageal reflux disease) Code(s): K21.9 - GASTRO-ESOPHAGEAL REFLUX DISEASE WITHOUT ESOPHAGITIS (3) Acute diastolic (congestive) heart failure Code(s): I50.31 - ACUTE DIASTOLIC (CONGESTIVE) HEART FAILURE (4) Acute exacerbation of chronic obstructive pulmonary disease Code(s): J44.1 - CHRONIC OBSTRUCTIVE PULMONARY DISEASE W (ACUTE) EXACERBATION (5) Acute hypoxemic respiratory failure Code(s): J96.01 - ACUTE RESPIRATORY FAILURE WITH HYPOXIA (6) Bipolar 1 disorder Code(s): F31.9 - BIPOLAR DISORDER, UNSPECIFIED (7) Bronchiectasis Code(s): J47.9 - BRONCHIECTASIS, UNCOMPLICATED (8) CHF (congestive heart failure), NYHA class II Code(s): I50.9 - HEART FAILURE, UNSPECIFIED (9) Chronic kidney disease (CKD) Code(s): N18.9 - CHRONIC KIDNEY DISEASE, UNSPECIFIED (10) Elevated troponin Code(s): R74.8 - ABNORMAL LEVELS OF OTHER SERUM ENZYMES (11) Emphysema of lung Code(s): J43.9 - EMPHYSEMA, UNSPECIFIED (12) Hypotension Code(s): I95.9 - HYPOTENSION, UNSPECIFIED (13) HTN (hypertension) Code(s): I10 - ESSENTIAL (PRIMARY) HYPERTENSION (14) Insomnia disorder Code(s): G47.00 - INSOMNIA, UNSPECIFIED Assessment/Plan (1) Pulmonary hypertension Code(s): I27.20 - PULMONARY HYPERTENSION, UNSPECIFIED (2) GERD (gastroesophageal reflux disease) Code(s): K21.9 - GASTRO-ESOPHAGEAL REFLUX DISEASE WITHOUT ESOPHAGITIS (3) Acute diastolic (congestive) heart failure Code(s): I50.31 - ACUTE DIASTOLIC (CONGESTIVE) HEART FAILURE (4) Acute exacerbation of chronic obstructive pulmonary disease Code(s): J44.1 - CHRONIC OBSTRUCTIVE PULMONARY DISEASE W (ACUTE) EXACERBATION (5) Acute hypoxemic respiratory failure Code(s): J96.01 - ACUTE RESPIRATORY FAILURE WITH HYPOXIA (6) Bipolar 1 disorder Code(s): F31.9 - BIPOLAR DISORDER, UNSPECIFIED (7) Bronchiectasis Code(s): J47.9 - BRONCHIECTASIS, UNCOMPLICATED (8) CHF (congestive heart failure), NYHA class II Code(s): I50.9 - HEART FAILURE, UNSPECIFIED (9) Chronic kidney disease (CKD) Code(s): N18.9 - CHRONIC KIDNEY DISEASE, UNSPECIFIED (10) Elevated troponin Code(s): R74.8 - ABNORMAL LEVELS OF OTHER SERUM ENZYMES (11) Emphysema of lung Code(s): J43.9 - EMPHYSEMA, UNSPECIFIED (12) Hypotension Code(s): I95.9 - HYPOTENSION, UNSPECIFIED (13) HTN (hypertension) Code(s): I10 - ESSENTIAL (PRIMARY) HYPERTENSION (14) Insomnia disorder Code(s): G47.00 - INSOMNIA, UNSPECIFIED Pt is critically ill not improving today WBC 24 had an episode of Desat with o2 Pt severely SOB discussed with ID let us give IV solumedrol rather than Po we will discuss with pulmonary also
--- NOTE | 2019-04-26 12:58 | PN ---
Progress Note (short form) - Note Progress Note: Renal follow up for hyponatremia Seen and examined at the bedside awake and alert has mild shortness of breat no chest pain making urine oral intake is improving Vital Signs Temperature 98.1 F 04/26/19 14:58 Pulse Rate 130 H 04/26/19 14:58 Respiratory Rate 24 H 04/26/19 14:58 Blood Pressure 130/77 04/26/19 14:58 O2 Sat by Pulse Oximetry (%) 97 04/25/19 21:00 Intake & Output 04/23/19 04/24/19 04/25/19 04/26/19 23:59 23:59 23:59 23:59 Intake Total 0 0 350 220 Output Total 53 140 Balance 0 0 297 80 Weight 59.647 kg 60.016 kg 60.555 kg NAD Course BS soft NT/ND no LE edema, clubbing or cyanosis CBC, BMP 04/26/19 06:10 04/26/19 06:10 Current Medications Acetaminophen (Tylenol -) 650 mg PO Q4H PRN PRN Reason: PAIN LEVEL 1-5 Last Admin: 04/16/19 22:14 Dose: 650 mg Albuterol Sulfate (Ventolin 0.083% Nebulizer Soln -) 1 amp NEB Q4H PRN PRN Reason: SHORT OF BREATH/WHEEZING Last Admin: 04/26/19 05:36 Dose: 1 amp Albuterol Sulfate (Ventolin 0.083% Nebulizer Soln -) 1 amp NEB RQ4H [facility] Last Admin: 04/26/19 12:13 Dose: 1 amp Ascorbic Acid (Vitamin C -) 500 mg PO BID [facility] Last Admin: 04/26/19 09:33 Dose: 500 mg Budesonide/Formoterol Fumarate (Symbicort 160/4.5mcg -) 2 puff IH BID [facility] Last Admin: 04/26/19 09:35 Dose: 2 puff Carbidopa/Levodopa (Sinemet 25/100 -) 2 each PO TID [facility] Last Admin: 04/26/19 14:31 Dose: 2 each Vancomycin HCl 750 mg/ (Dextrose) 250 mls @ 150 mls/hr IVPB Q24H [facility]; Protocol Last Admin: 04/26/19 15:11 Dose: 150 mls/hr Meropenem 1 gm/ Dextrose 100 mls @ 200 mls/hr IVPB Q12H [facility] Last Admin: 04/26/19 14:30 Dose: 200 mls/hr Melatonin (Melatonin) 5 mg PO HS PRN PRN Reason: INSOMNIA Last Admin: 04/24/19 22:56 Dose: 5 mg Methylprednisolone Sodium Succinate (Solu-Medrol -) 40 mg IVPUSH Q8H-IV [facility] Last Admin: 04/26/19 09:33 Dose: 40 mg Nystatin (Nystatin Oral Suspension -) 500,000 units PO Q6HPO [facility] Last Admin: 04/26/19 13:14 Dose: 500,000 units Sertraline HCl 50 mg/ (Sertraline HCl 25 mg) 75 mg PO DAILY [facility] Last Admin: 04/26/19 09:32 Dose: 75 mg Silver Sulfadiazine (Silvadene -) 1 applic TP BID [facility] Last Admin: 04/26/19 09:34 Dose: 1 applic Sodium Chloride (Sodium Chloride Tablet -) 1 gm PO DAILY [facility] Last Admin: 04/26/19 09:34 Dose: 1 gm Tiotropium Imbler (Spiriva Respimat) 2 puff IH DAILY [facility] Last Admin: 04/26/19 09:35 Dose: 2 puff Trimethoprim/Sulfamethoxazole (Bactrim Ds -) 1 each PO BID [facility] Last Admin: 04/26/19 09:33 Dose: 1 each Zinc Oxide/Panthenol/Vitamin E (Balmex Cream -) 1 applic TP BID [facility] Last Admin: 04/26/19 09:34 Dose: 1 applic 89 year old gentleman with history of COPD, Lung cancer, cardiomyopathy, CKD presented with cough and shortness of breath and noted to have worsening hyponatremia. 1. hyponatremia from poor solute intake + diuretics in setting of D5W infusion with antibiotics 2. Respiratory failure 3. Bronchitis 4. Leukocytosis SeruM Na is now within normal limits discontinue salt tabs and water restriction monitor Na levels dialy for next few days continue steroids as per pulmonary Zack Stiven [facility]
--- NOTE | 2019-04-26 14:05 | CON.NEURO ---
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) Pulmonary: Yes: COPD, O2 Dependent Renal/: Yes: Renal Inusuff Psych: Yes: Bipolar, Depression Musculoskeletal: Yes: Osteoarthritis - Past Surgical History Past Surgical History: Yes: Cholecystectomy - Alcohol/Substance Use Hx Alcohol Use: No History of Substance Use: reports: None - Smoking History Smoking history: Former smoker Have you smoked in the past 12 months: No If you are a former smoker, when did you quit?: 1998 - Social History Usual Living Arrangement: With Spouse ADL: Independent History of Recent Travel: No Home Medications - Allergies Allergies/Adverse Reactions: Allergies Allergy/AdvReac Type Severity Reaction Status Date / Time No Known Allergies Allergy Verified 04/06/19 19:02 - Home Medications Home Medications: Ambulatory Orders Budesonide/Formeterol Fumarate [SYMBICORT 160/4.5mcg -] 2 inh PO BID 02/24/17 Lisinopril 5 mg PO BID 02/25/17 Montelukast Na [Singulair -] 10 mg PO HS 02/25/17 Multivitamin [Poly-Vitamin] 1 each PO DAILY 04/28/17 Albuterol 0.083% Nebulizer Magi [Ventolin 0.083% Nebulizer Soln -] 1 neb NEB TID 04/01/18 Mirtazapine [Remeron -] 15 mg PO HS 10/29/18 Sertraline HCl 50 mg PO AM 10/29/18 Loratadine 1 tab PO DAILY 11/02/18 Carbidopa/Levodopa 25/100 [Sinemet 25/100 -] 1 each PO TID@0900,1200,1700 #30 tablet 03/04/19 Nebivolol [Bystolic -] 10 mg PO DAILY #30 tab 03/04/19 Pantoprazole Sodium [Protonix -] 20 mg PO DAILY #30 tablet.ec 03/04/19 predniSONE [Deltasone -] 10 mg PO BID 04/06/19 Physical Exam-Neuro Vital Signs: Vital Signs Temperature 98.1 F 04/26/19 06:20 Pulse Rate 104 H 04/26/19 06:20 Respiratory Rate 22 H 04/26/19 06:20 Blood Pressure 137/77 04/26/19 06:20 O2 Sat by Pulse Oximetry (%) 97 04/25/19 21:00 Labs: CBC, BMP 04/26/19 06:10 04/26/19 06:10 INR, PTT INR 1.03 (0.83-1.09) 04/06/19 19:45 Assessment/Plan cc Parkinson's Disease HPI 89 year old male history of HTN,COPD, CAD. Patient came for shortness of breath and has been treated with steroid and abx, pateint has difficulty with breathing. He also have history of parkinson disease diagnosed by Dr Gardner and he is taking sinemet 1 tab ( 25/100) tid. PMH: PD,HTN,COPD,Renal Insufficiency, depression, bipolar, osteoarthritis Musculoskeletal: Yes: Osteoarthritis Past Surgical History: Yes: Cholecystectomy Smoking history: Former smoker Have you smoked in the past 12 months: No If you are a former smoker, when did you quit?: 1998 No toxic habits and lives independently Allergies/Adverse Reactions: Allergies Allergy/AdvReac Type Severity Reaction Status Date / Time No Known Allergies Allergy Verified 04/06/19 19:02 Home Medications: Budesonide/Formeterol Fumarate [SYMBICORT 160/4.5mcg -] 2 inh PO BID 02/24/17 Lisinopril 5 mg PO BID 02/25/17 Montelukast Na [Singulair -] 10 mg PO HS 02/25/17 Multivitamin [Poly-Vitamin] 1 each PO DAILY 04/28/17 Albuterol 0.083% Nebulizer Magi [Ventolin 0.083% Nebulizer Soln -] 1 neb NEB TID 04/01/18 Mirtazapine [Remeron -] 15 mg PO HS 10/29/18 Sertraline HCl 50 mg PO AM 10/29/18 Loratadine 1 tab PO DAILY 11/02/18 Carbidopa/Levodopa 25/100 [Sinemet 25/100 -] 1 each PO TID@0900,1200,1700 #30 tablet 03/04/19 Nebivolol [Bystolic -] 10 mg PO DAILY #30 tab 03/04/19 Pantoprazole Sodium [Protonix -] 20 mg PO DAILY #30 tablet.ec 03/04/19 predniSONE [Deltasone -] 10 mg PO BID 04/06/19 NEUROLOGICAL EXAMINATION Alert oriented x 2, neck is supple eomi, pupils reactive no face asymmetry moving all extremity there is bradykinesia and mild tremors were identified( more so on right side) sensation is normal , strength is normal Assessment/Plan 89 year old male history of HTN,COPD, CAD. He has history of PD for two yeas, and on sinemet 25/100 one tab po tid. Plan: suggest to increase two tab po tid watch for now, if no significant benefit after 3-5 days, than consider going back to same dose Thanking you so much Keegan Ko MD
[2019-04-26] MEDS ORDERED: PT OWN MED DRAWER 7, Y5N ONE ×2 (14:26→22:20)
[2019-04-26] MEDS: VANCOMYCIN 750 MG in DEXTROSE 5%-WATER - 250 ML IVPB SCH (15:11)
[2019-04-26] MEDS ORDERED: FUROSEMIDE 40 MG/4 ML INJECTABLE VIAL IVPUSH ONE (16:33)
--- NOTE | 2019-04-26 16:55 | PN ---
Progress Note (short form) - Note Progress Note: s: sob worse today. no chest pain, palps, dizziness. Current Medications Acetaminophen (Tylenol -) 650 mg PO Q4H PRN PRN Reason: PAIN LEVEL 1-5 Last Admin: 04/16/19 22:14 Dose: 650 mg Albuterol Sulfate (Ventolin 0.083% Nebulizer Soln -) 1 amp NEB Q4H PRN PRN Reason: SHORT OF BREATH/WHEEZING Last Admin: 04/26/19 05:36 Dose: 1 amp Albuterol Sulfate (Ventolin 0.083% Nebulizer Soln -) 1 amp NEB RQ4H [facility] Last Admin: 04/26/19 12:13 Dose: 1 amp Ascorbic Acid (Vitamin C -) 500 mg PO BID [facility] Last Admin: 04/26/19 09:33 Dose: 500 mg Budesonide/Formoterol Fumarate (Symbicort 160/4.5mcg -) 2 puff IH BID [facility] Last Admin: 04/26/19 09:35 Dose: 2 puff Carbidopa/Levodopa (Sinemet 25/100 -) 2 each PO TID [facility] Last Admin: 04/26/19 14:31 Dose: 2 each Vancomycin HCl 750 mg/ (Dextrose) 250 mls @ 150 mls/hr IVPB Q24H [facility]; Protocol Last Admin: 04/26/19 15:11 Dose: 150 mls/hr Meropenem 1 gm/ Dextrose 100 mls @ 200 mls/hr IVPB Q12H [facility] Last Admin: 04/26/19 14:30 Dose: 200 mls/hr Melatonin (Melatonin) 5 mg PO HS PRN PRN Reason: INSOMNIA Last Admin: 04/24/19 22:56 Dose: 5 mg Methylprednisolone Sodium Succinate (Solu-Medrol -) 40 mg IVPUSH Q8H-IV [facility] Last Admin: 04/26/19 09:33 Dose: 40 mg Nystatin (Nystatin Oral Suspension -) 500,000 units PO Q6HPO [facility] Last Admin: 04/26/19 13:14 Dose: 500,000 units Sertraline HCl 50 mg/ (Sertraline HCl 25 mg) 75 mg PO DAILY [facility] Last Admin: 04/26/19 09:32 Dose: 75 mg Silver Sulfadiazine (Silvadene -) 1 applic TP BID [facility] Last Admin: 04/26/19 09:34 Dose: 1 applic Tiotropium [place] (Spiriva Respimat) 2 puff IH DAILY [facility] Last Admin: 04/26/19 09:35 Dose: 2 puff Trimethoprim/Sulfamethoxazole (Bactrim Ds -) 1 each PO BID [facility] Last Admin: 04/26/19 09:33 Dose: 1 each Zinc Oxide/Panthenol/Vitamin E (Balmex Cream -) 1 applic TP BID [facility] Last Admin: 04/26/19 09:34 Dose: 1 applic Vital Signs Period Temp Pulse Resp BP Sys/[place] Pulse Ox Last 24 Hr 97.3 F-98.4 F 104-130 20-24 126-137/70-77 97 Constitutional: Yes: Well Nourished, No Distress, Calm Cardiovascular: Yes: Regular Rate and Rhythm (decr intensity), S1, S2. No: JVD , Gallop, Murmur Respiratory: Yes: Regular, Wheezes. No: Accessory Muscle Use, Rales Extremities: No: Cold Edema: No Neurological: Yes: Alert, Oriented Assessment/Plan echo 02/2019 tds, nl LV function, RV not well visualized, severe pujlm HTN >60 mmHg RVSP stress echo 04/07: apical ischemia a.e. COPD, acute HFpEF, severe pulm HTN ? cor pulmonale - worsening sob, with BUN/Cr rising - lasix 40 mg IV x 1 given today - steroids, BDs, suppl O2 per pulm - metoprolol dc'ed given prolonged, symptomatic airways dz sx's here, and EF has normalized--observe for angina sx's elevated trop: - borderline trop, flat trend, not c/w acs - EKG no ischemic changes history of stress induced CM: with mild acute on chronic diastolic CHF exacerbation in setting of increased IVF - nl EF on echo 02/2019 - cont lisinopril. hold BB, as above (? contributing to copd sx's) DORIS on CKD: - baseline creat 1.4-1.9 - renal fxn improved here PSVT/PAT: - brief runs, off tele now - cont bb CAD: - +apical ischemia 03/2018 managed medically - no angina - cont aspirin, statin. 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
[2019-04-26] MEDS: MELATONIN 5 MG TABLETS PO PRN (22:24)
[2019-04-27] MEDS: ALBUTEROL SO4 0.083% IH SOL 2.5 MG/3 ML VIAL.NEB. NEB SCH ×6 (00:06→20:40)
[2019-04-27] MEDS ORDERED: PT OWN MED DRAWER 7, Y5N ONE (01:53)
[2019-04-27] MEDS: NYSTATIN 500,000 UNITS/5 ML SUSPENSION PO SCH ×5 (02:02→23:27)
[2019-04-27] MEDS: methylPREDNISolone NA SUCC 40 MG/1 ML VIAL IVPUSH SCH ×3 (02:03→17:50)
[2019-04-27] MEDS ORDERED: DEXTROSE 5%-WATER 100 ML IVPB ONE ×2 (02:32→13:30)
[2019-04-27] MEDS ORDERED: MEROPENEM 1 GM VIAL (RESTRICTED TO ID) IVPB ONE ×2 (02:32→13:30)
[2019-04-27] MEDS: MEROPENEM 1 GM in DEXTROSE 5%-WATER 100 ML IVPB SCH ×2 (02:38→15:01)
[2019-04-27] MEDS: CARBIDOPA/LEVODOPA 25/100 TABLET (FP) PO SCH ×3 (06:57→21:40)
[2019-04-27 07:04] LABS: ARTERIAL BLD GAS O2 SATURATION 97.9 % (95-98); ARTERIAL BLOOD GAS BASE EXCESS 7.5 meq/l (-2-2); ARTERIAL BLOOD GAS PCO2 44.6 mmHg (35-45); ARTERIAL BLOOD GAS PO2 117 mmHg (80-100); ARTERIAL BLOOD GAS pH 7.47 (7.35-7.45)
[2019-04-27 07:10] LABS: ALLENS TEST POSITIVE
[2019-04-27 07:43] LABS: BASO % 0.2 % (0-2.0); EOS % 0.1 % (0-4.5); HEMATOCRIT 36.4 % (35.4-49); HEMOGLOBIN 11.9 GM/dL (11.7-16.9); LYMPH % 2.4 % (8-40); MCH 31.5 pg (25.7-33.7); MCHC 32.8 g/dl (32.0-35.9); MONO % 2.1 % (3.8-10.2); NEUT % 95.2 % (42.8-82.8); PLATELET COUNT 180 K/MM3 (134-434); RBC 3.79 M/mm3 (4.00-5.60); RDW 15.9 % (11.9-15.9); WHITE BLOOD COUNT 21.2 K/mm3 (4.0-10.0)
[2019-04-27 08:04] LABS: BLOOD UREA NITROGEN 78.2 mg/dL (7-18); CALCIUM 9.1 mg/dL (8.5-10.1); CREATININE 1.8 mg/dL (0.55-1.3); POTASSIUM 3.8 mmol/L (3.5-5.1)
--- NOTE | 2019-04-27 08:07 | PN ---
Progress Note, Physician History of Present Illness: Pt is better than Yesterday Pt is not eating Calorie count spoke with dietary Pureed diet swallowing eval - Current Medication List Current Medications: Active Medications Acetaminophen (Tylenol -) 650 mg PO Q4H PRN PRN Reason: PAIN LEVEL 1-5 Last Admin: 04/16/19 22:14 Dose: 650 mg Albuterol Sulfate (Ventolin 0.083% Nebulizer Soln -) 1 amp NEB Q4H PRN PRN Reason: SHORT OF BREATH/WHEEZING Last Admin: 04/26/19 05:36 Dose: 1 amp Albuterol Sulfate (Ventolin 0.083% Nebulizer Soln -) 1 amp NEB RQ4H [facility] Last Admin: 04/27/19 07:00 Dose: 1 amp Ascorbic Acid (Vitamin C -) 500 mg PO BID [facility] Last Admin: 04/26/19 22:24 Dose: 500 mg Budesonide/Formoterol Fumarate (Symbicort 160/4.5mcg -) 2 puff IH BID [facility] Last Admin: 04/26/19 22:30 Dose: 2 puff Carbidopa/Levodopa (Sinemet 25/100 -) 2 each PO TID [facility] Last Admin: 04/27/19 06:57 Dose: 2 each Vancomycin HCl 750 mg/ (Dextrose) 250 mls @ 150 mls/hr IVPB Q24H [facility]; Protocol Last Admin: 04/26/19 15:11 Dose: 150 mls/hr Meropenem 1 gm/ Dextrose 100 mls @ 200 mls/hr IVPB Q12H [facility] Last Admin: 04/27/19 02:38 Dose: 200 mls/hr Melatonin (Melatonin) 5 mg PO HS PRN PRN Reason: INSOMNIA Last Admin: 04/26/19 22:24 Dose: 5 mg Methylprednisolone Sodium Succinate (Solu-Medrol -) 40 mg IVPUSH Q8H-IV [facility] Last Admin: 04/27/19 02:03 Dose: 40 mg Nystatin (Nystatin Oral Suspension -) 500,000 units PO Q6HPO [facility] Last Admin: 04/27/19 06:58 Dose: 500,000 units Sertraline HCl 50 mg/ (Sertraline HCl 25 mg) 75 mg PO DAILY [facility] Last Admin: 04/26/19 09:32 Dose: 75 mg Silver Sulfadiazine (Silvadene -) 1 applic TP BID [facility] Last Admin: 04/26/19 22:31 Dose: 1 applic Tiotropium [place] (Spiriva Respimat) 2 puff IH DAILY [facility] Last Admin: 04/26/19 09:35 Dose: 2 puff Trimethoprim/Sulfamethoxazole (Bactrim Ds -) 1 each PO BID [facility] Last Admin: 04/26/19 22:24 Dose: 1 each Zinc Oxide/Panthenol/Vitamin E (Balmex Cream -) 1 applic TP BID [facility] Last Admin: 04/26/19 22:35 Dose: 1 applic - Objective Vital Signs: Vital Signs Temperature 97.6 F 04/27/19 06:00 Pulse Rate 112 H 04/27/19 06:00 Respiratory Rate 20 04/27/19 06:00 Blood Pressure 112/76 04/27/19 06:00 O2 Sat by Pulse Oximetry (%) 96 04/26/19 21:00 Constitutional: Yes: Anxious Eyes: Yes: Conjunctiva Clear, EOM Intact HENT: Yes: Atraumatic, Normocephalic Neck: Yes: Supple, Trachea Midline Cardiovascular: Yes: Regular Rate and Rhythm, S1, S2 Respiratory: Yes: Regular, CTA Bilaterally Gastrointestinal: Yes: Normal Bowel Sounds, Soft Labs: CBC, BMP 04/27/19 06:15 04/27/19 06:15 INR, PTT INR 1.03 (0.83-1.09) 04/06/19 19:45 Problem List - Problems (1) Pulmonary hypertension Code(s): I27.20 - PULMONARY HYPERTENSION, UNSPECIFIED (2) GERD (gastroesophageal reflux disease) Code(s): K21.9 - GASTRO-ESOPHAGEAL REFLUX DISEASE WITHOUT ESOPHAGITIS (3) Acute diastolic (congestive) heart failure Code(s): I50.31 - ACUTE DIASTOLIC (CONGESTIVE) HEART FAILURE (4) Acute exacerbation of chronic obstructive pulmonary disease Code(s): J44.1 - CHRONIC OBSTRUCTIVE PULMONARY DISEASE W (ACUTE) EXACERBATION (5) Acute hypoxemic respiratory failure Code(s): J96.01 - ACUTE RESPIRATORY FAILURE WITH HYPOXIA (6) Bipolar 1 disorder Code(s): F31.9 - BIPOLAR DISORDER, UNSPECIFIED (7) Bronchiectasis Code(s): J47.9 - BRONCHIECTASIS, UNCOMPLICATED (8) CHF (congestive heart failure), NYHA class II Code(s): I50.9 - HEART FAILURE, UNSPECIFIED (9) Chronic kidney disease (CKD) Code(s): N18.9 - CHRONIC KIDNEY DISEASE, UNSPECIFIED (10) Elevated troponin Code(s): R74.8 - ABNORMAL LEVELS OF OTHER SERUM ENZYMES (11) Emphysema of lung Code(s): J43.9 - EMPHYSEMA, UNSPECIFIED (12) Hypotension Code(s): I95.9 - HYPOTENSION, UNSPECIFIED (13) HTN (hypertension) Code(s): I10 - ESSENTIAL (PRIMARY) HYPERTENSION (14) Insomnia disorder Code(s): G47.00 - INSOMNIA, UNSPECIFIED Assessment/Plan (1) Pulmonary hypertension Code(s): I27.20 - PULMONARY HYPERTENSION, UNSPECIFIED (2) GERD (gastroesophageal reflux disease) Code(s): K21.9 - GASTRO-ESOPHAGEAL REFLUX DISEASE WITHOUT ESOPHAGITIS (3) Acute diastolic (congestive) heart failure Code(s): I50.31 - ACUTE DIASTOLIC (CONGESTIVE) HEART FAILURE (4) Acute exacerbation of chronic obstructive pulmonary disease Code(s): J44.1 - CHRONIC OBSTRUCTIVE PULMONARY DISEASE W (ACUTE) EXACERBATION (5) Acute hypoxemic respiratory failure Code(s): J96.01 - ACUTE RESPIRATORY FAILURE WITH HYPOXIA (6) Bipolar 1 disorder Code(s): F31.9 - BIPOLAR DISORDER, UNSPECIFIED (7) Bronchiectasis Code(s): J47.9 - BRONCHIECTASIS, UNCOMPLICATED (8) CHF (congestive heart failure), NYHA class II Code(s): I50.9 - HEART FAILURE, UNSPECIFIED (9) Chronic kidney disease (CKD) Code(s): N18.9 - CHRONIC KIDNEY DISEASE, UNSPECIFIED (10) Elevated troponin Code(s): R74.8 - ABNORMAL LEVELS OF OTHER SERUM ENZYMES (11) Emphysema of lung Code(s): J43.9 - EMPHYSEMA, UNSPECIFIED (12) Hypotension Code(s): I95.9 - HYPOTENSION, UNSPECIFIED (13) HTN (hypertension) Code(s): I10 - ESSENTIAL (PRIMARY) HYPERTENSION (14) Insomnia disorder Code(s): G47.00 - INSOMNIA, UNSPECIFIED Pt is critically ill not improving WBC better today Tremors better continue antibiotics IV steroids calorie count
[2019-04-27] MEDS ORDERED: SERTRALINE HCL 25 MG TABLET (FP) ONE (09:33)
[2019-04-27] MEDS ORDERED: SERTRALINE HCL 50 MG TABLET (FP) ONE (09:34)
--- NOTE | 2019-04-27 09:56 | PN ---
Progress Note (short form) - Note Progress Note: 89 year old male history of HTN,COPD, CAD. Patient came for shortness of breath and has been treated with steroid and abx, pateint has difficulty with breathing. He also have history of parkinson disease diagnosed by Dr Gardner and he is taking sinemet 1 tab ( 25/100) tid. patient sinmet was increased yesterday and he has not noticed any significant difference NEUROLOGICAL EXAMINATION Alert oriented x 2, neck is supple eomi, pupils reactive no face asymmetry moving all extremity there is bradykinesia and mild tremors were identified( more so on right side) sensation is normal , strength is normal Assessment/Plan 89 year old male history of HTN,COPD, CAD. He has history of PD for two yeas, and on sinemet 25/100 one tab po tid. Plan: continue to watch on sinemet (25/100)two tab po tid watch for now, if no significant benefit after 2-3 , I would go back to previous dose Thanking you so much Keegan Ko MD
[2019-04-27] MEDS: SERTRALINE HCL 50 MG, SERTRALINE HCL 25 MG PO SCH (10:03)
[2019-04-27] MEDS: SULFAMETHOXAZOLE/TRIMETHOPRIM 800MG/160MG D.S. TABLET PO SCH ×2 (10:03→21:40)
[2019-04-27] MEDS: ASCORBIC ACID 500 MG TABLET (FP) PO SCH ×2 (10:03→21:40)
[2019-04-27] MEDS: ZINC OXIDE/PANTHENOL/VITAMIN E 56 GM TUBE TP SCH ×2 (10:04→21:41)
[2019-04-27] MEDS: TIOTROPIUM BROMIDE 2.5 MCG (SPIRIVA) RESPIMAT INHALER IH SCH (10:04)
[2019-04-27] MEDS: BUDESONIDE/FORMETEROL FUMARATE 160/4.5 mcg INHALER IH SCH ×2 (10:04→21:42)
[2019-04-27] MEDS: SILVER SULFADIAZINE 1% TOP CREAM 50 GM JAR TP SCH ×2 (10:04→21:41)
--- NOTE | 2019-04-27 10:06 | PN ---
Progress Note (short form) - Note Progress Note: Feels generalized weakness and fatigue. Still with congested cough. No CP. Intake & Output 04/24/19 04/25/19 04/26/19 04/27/19 23:59 23:59 23:59 23:59 Intake Total 0 350 970 Output Total 53 290 Balance 0 297 680 Weight 132 lb 5 oz 133 lb 8 oz 125 lb 4.8 oz Last Vital Signs Temp Pulse Resp BP Pulse Ox 98.4 F 113 H 24 H 129/79 94 L 04/27/19 08:58 04/27/19 08:58 04/27/19 08:59 04/27/19 08:58 04/27/19 08:59 Active Medications Acetaminophen (Tylenol -) 650 mg PO Q4H PRN PRN Reason: PAIN LEVEL 1-5 Last Admin: 04/16/19 22:14 Dose: 650 mg Albuterol Sulfate (Ventolin 0.083% Nebulizer Soln -) 1 amp NEB RQ4H [facility] Last Admin: 04/27/19 07:00 Dose: 1 amp Ascorbic Acid (Vitamin C -) 500 mg PO BID [facility] Last Admin: 04/27/19 10:03 Dose: 500 mg Budesonide/Formoterol Fumarate (Symbicort 160/4.5mcg -) 2 puff IH BID [facility] Last Admin: 04/27/19 10:04 Dose: 2 puff Carbidopa/Levodopa (Sinemet 25/100 -) 2 each PO TID [facility] Last Admin: 04/27/19 06:57 Dose: 2 each Vancomycin HCl 750 mg/ (Dextrose) 250 mls @ 150 mls/hr IVPB Q24H [facility]; Protocol Last Admin: 04/26/19 15:11 Dose: 150 mls/hr Meropenem 1 gm/ Dextrose 100 mls @ 200 mls/hr IVPB Q12H [facility] Last Admin: 04/27/19 02:38 Dose: 200 mls/hr Melatonin (Melatonin) 5 mg PO HS PRN PRN Reason: INSOMNIA Last Admin: 04/26/19 22:24 Dose: 5 mg Methylprednisolone Sodium Succinate (Solu-Medrol -) 40 mg IVPUSH Q8H-IV [facility] Last Admin: 04/27/19 10:03 Dose: 40 mg Nystatin (Nystatin Oral Suspension -) 500,000 units PO Q6HPO [facility] Last Admin: 04/27/19 06:58 Dose: 500,000 units Sertraline HCl 50 mg/ (Sertraline HCl 25 mg) 75 mg PO DAILY [facility] Last Admin: 04/27/19 10:03 Dose: 75 mg Silver Sulfadiazine (Silvadene -) 1 applic TP BID [facility] Last Admin: 04/27/19 10:04 Dose: 1 applic Tiotropium [place] (Spiriva Respimat) 2 puff IH DAILY [facility] Last Admin: 04/27/19 10:04 Dose: 2 puff Trimethoprim/Sulfamethoxazole (Bactrim Ds -) 1 each PO BID [facility] Last Admin: 04/27/19 10:03 Dose: 1 each Zinc Oxide/Panthenol/Vitamin E (Balmex Cream -) 1 applic TP BID [facility] Last Admin: 04/27/19 10:04 Dose: 1 applic Gen: Mildly tachypneic at rest on NC O2 Heart: RRR Lung: scattered bilateral rhonchi, no wheeze Abd: soft, nontender Ext: no edema Laboratory Results - last 24 hr 04/26/19 04/27/19 04/27/19 06:10 06:15 06:15 WBC 21.2 H RBC 3.79 L Hgb 11.9 Hct 36.4 MCV 96.0 MCH 31.5 MCHC 32.8 RDW 15.9 Plt Count 180 MPV 8.0 Absolute Neuts (auto) 20.1 H Neutrophils % 95.2 H Neutrophils % (Manual) 96.0 H Band Neutrophils % 2.0 Lymphocytes % 2.4 L Lymphocytes % (Manual) 1.0 L D Monocytes % 2.1 L Monocytes % (Manual) 1 L Eosinophils % 0.1 Eosinophils % (Manual) 0.0 Basophils % 0.2 Basophils % (Manual) 0.0 Myelocytes % (Man) 0 Promyelocytes % (Man) 0 Blast Cells % (Manual) 0 Nucleated RBC % 0 Metamyelocytes 0 Hypochromia 0 Platelet Estimate Normal Polychromasia 0 Poikilocytosis 0 Anisocytosis 0 Microcytosis 0 Macrocytosis 0 Anticoagulation Therapy Puncture Site ABG pH ABG pCO2 at Pt Temp ABG pO2 at Pt Temp ABG HCO3 ABG O2 Sat (Measured) ABG O2 Content ABG Base Excess Zhou Test O2 Delivery Device Oxygen Flow Rate Vent Mode Vent Rate Mechanical Rate Pressure Support Vent Sodium 141 Potassium 3.8 Chloride 100 Carbon Dioxide 33 H Anion Gap 8 BUN 78.2 H Creatinine 1.8 H Est GFR (CKD-EPI)AfAm 38.37 Est GFR (CKD-EPI)NonAf 33.10 Random Glucose 144 H Calcium 9.1 04/27/19 06:30 WBC RBC Hgb Hct MCV MCH MCHC RDW Plt Count MPV Absolute Neuts (auto) Neutrophils % Neutrophils % (Manual) Band Neutrophils % Lymphocytes % Lymphocytes % (Manual) Monocytes % Monocytes % (Manual) Eosinophils % Eosinophils % (Manual) Basophils % Basophils % (Manual) Myelocytes % (Man) Promyelocytes % (Man) Blast Cells % (Manual) Nucleated RBC % Metamyelocytes Hypochromia Platelet Estimate Polychromasia Poikilocytosis Anisocytosis Microcytosis Macrocytosis Anticoagulation Therapy No Result Required. Puncture Site Right radial ABG pH 7.47 H ABG pCO2 at Pt Temp 44.6 ABG pO2 at Pt Temp 117 H ABG HCO3 31.8 H ABG O2 Sat (Measured) 97.9 ABG O2 Content 16.0 ABG Base Excess 7.5 H Zhou Test Positive O2 Delivery Device N/c Oxygen Flow Rate 4l Vent Mode No Result Required. Vent Rate No Result Required. Mechanical Rate No Result Required. Pressure Support Vent No Result Required. Sodium Potassium Chloride Carbon Dioxide Anion Gap BUN Creatinine Est GFR (CKD-EPI)AfAm Est GFR (CKD-EPI)NonAf Random Glucose Calcium Problem List - Problems (1) COPD exacerbation Code(s): J44.1 - CHRONIC OBSTRUCTIVE PULMONARY DISEASE W (ACUTE) EXACERBATION A/P Acute COPD Exacerbation Chronic Hypoxic Respiratory Failure Severe Pulmonary HTN CAD HTN Progressive Hyponatremia due to hypotonic saline and diuretics - ABX per ID - Inhaled bronchodilators - Symbicort - O2 to keep SpO2 >90% - DVT prophylaxis - Noted Medrol restarted: at this point, little benefit from higher dose steroids: can consider Prednisone Dr Martinez
[2019-04-27 10:41] LABS: ANISOCYTOSIS 1+; PLATELET ESTIMATE NORMAL
--- NOTE | 2019-04-27 11:42 | PN ---
Progress Note, Physician History of Present Illness: looks better than yesterday still sob weak - Current Medication List Current Medications: Active Medications Acetaminophen (Tylenol -) 650 mg PO Q4H PRN PRN Reason: PAIN LEVEL 1-5 Last Admin: 04/16/19 22:14 Dose: 650 mg Albuterol Sulfate (Ventolin 0.083% Nebulizer Soln -) 1 amp NEB RQ4H [facility] Last Admin: 04/27/19 07:00 Dose: 1 amp Ascorbic Acid (Vitamin C -) 500 mg PO BID [facility] Last Admin: 04/27/19 10:03 Dose: 500 mg Budesonide/Formoterol Fumarate (Symbicort 160/4.5mcg -) 2 puff IH BID [facility] Last Admin: 04/27/19 10:04 Dose: 2 puff Carbidopa/Levodopa (Sinemet 25/100 -) 2 each PO TID [facility] Last Admin: 04/27/19 06:57 Dose: 2 each Meropenem 1 gm/ Dextrose 100 mls @ 200 mls/hr IVPB Q12H [facility] Last Admin: 04/27/19 02:38 Dose: 200 mls/hr Melatonin (Melatonin) 5 mg PO HS PRN PRN Reason: INSOMNIA Last Admin: 04/26/19 22:24 Dose: 5 mg Methylprednisolone Sodium Succinate (Solu-Medrol -) 40 mg IVPUSH Q8H-IV [facility] Last Admin: 04/27/19 10:03 Dose: 40 mg Nystatin (Nystatin Oral Suspension -) 500,000 units PO Q6HPO [facility] Last Admin: 04/27/19 06:58 Dose: 500,000 units Sertraline HCl 50 mg/ (Sertraline HCl 25 mg) 75 mg PO DAILY [facility] Last Admin: 04/27/19 10:03 Dose: 75 mg Silver Sulfadiazine (Silvadene -) 1 applic TP BID [facility] Last Admin: 04/27/19 10:04 Dose: 1 applic Tiotropium [place] (Spiriva Respimat) 2 puff IH DAILY [facility] Last Admin: 04/27/19 10:04 Dose: 2 puff Trimethoprim/Sulfamethoxazole (Bactrim Ds -) 1 each PO BID [facility] Last Admin: 04/27/19 10:03 Dose: 1 each Zinc Oxide/Panthenol/Vitamin E (Balmex Cream -) 1 applic TP BID [facility] Last Admin: 04/27/19 10:04 Dose: 1 applic - Objective Vital Signs: Vital Signs Temperature 98.4 F 04/27/19 08:58 Pulse Rate 113 H 04/27/19 08:58 Respiratory Rate 24 H 04/27/19 08:59 Blood Pressure 129/79 04/27/19 08:58 O2 Sat by Pulse Oximetry (%) 94 L 04/27/19 08:59 Constitutional: Yes: Calm, Mild Distress Cardiovascular: Yes: S1, S2 Respiratory: Yes: Regular, On Nasal O2, Poor Air Entry Gastrointestinal: Yes: Normal Bowel Sounds, Soft Musculoskeletal: Yes: WNL Neurological: Yes: Alert, Oriented Psychiatric: Yes: Alert, Oriented Labs: CBC, BMP 04/27/19 06:15 04/27/19 06:15 INR, PTT INR 1.03 (0.83-1.09) 04/06/19 19:45 Assessment/Plan Problem List - Problems (1) Pulmonary hypertension Code(s): I27.20 - PULMONARY HYPERTENSION, UNSPECIFIED (2) GERD (gastroesophageal reflux disease) Code(s): K21.9 - GASTRO-ESOPHAGEAL REFLUX DISEASE WITHOUT ESOPHAGITIS (3) Acute diastolic (congestive) heart failure Code(s): I50.31 - ACUTE DIASTOLIC (CONGESTIVE) HEART FAILURE (4) Acute exacerbation of chronic obstructive pulmonary disease Code(s): J44.1 - CHRONIC OBSTRUCTIVE PULMONARY DISEASE W (ACUTE) EXACERBATION (5) Acute hypoxemic respiratory failure Code(s): J96.01 - ACUTE RESPIRATORY FAILURE WITH HYPOXIA (6) Bipolar 1 disorder Code(s): F31.9 - BIPOLAR DISORDER, UNSPECIFIED (7) Bronchiectasis Code(s): J47.9 - BRONCHIECTASIS, UNCOMPLICATED (8) CHF (congestive heart failure), NYHA class II Code(s): I50.9 - HEART FAILURE, UNSPECIFIED (9) Chronic kidney disease (CKD) Code(s): N18.9 - CHRONIC KIDNEY DISEASE, UNSPECIFIED (10) Elevated troponin Code(s): R74.8 - ABNORMAL LEVELS OF OTHER SERUM ENZYMES (11) Emphysema of lung Code(s): J43.9 - EMPHYSEMA, UNSPECIFIED (12) Hypotension Code(s): I95.9 - HYPOTENSION, UNSPECIFIED (13) HTN (hypertension) Code(s): I10 - ESSENTIAL (PRIMARY) HYPERTENSION (14) Insomnia disorder Code(s): G47.00 - INSOMNIA, UNSPECIFIED plan will continue abx resp support patient not doing well monitor wbc rest as per the team
--- NOTE | 2019-04-27 13:02 | PN ---
Progress Note, Physician Chief Complaint: feels more SOB CXR from 04/25 CLEAR no congestion Denies CP/palps History of Present Illness: remains on IV steroids - Current Medication List Current Medications: Active Medications Acetaminophen (Tylenol -) 650 mg PO Q4H PRN PRN Reason: PAIN LEVEL 1-5 Last Admin: 04/16/19 22:14 Dose: 650 mg Albuterol Sulfate (Ventolin 0.083% Nebulizer Soln -) 1 amp NEB RQ4H [facility] Last Admin: 04/27/19 12:00 Dose: 1 amp Ascorbic Acid (Vitamin C -) 500 mg PO BID [facility] Last Admin: 04/27/19 10:03 Dose: 500 mg Budesonide/Formoterol Fumarate (Symbicort 160/4.5mcg -) 2 puff IH BID [facility] Last Admin: 04/27/19 10:04 Dose: 2 puff Carbidopa/Levodopa (Sinemet 25/100 -) 2 each PO TID [facility] Last Admin: 04/27/19 06:57 Dose: 2 each Meropenem 1 gm/ Dextrose 100 mls @ 200 mls/hr IVPB Q12H [facility] Last Admin: 04/27/19 02:38 Dose: 200 mls/hr Melatonin (Melatonin) 5 mg PO HS PRN PRN Reason: INSOMNIA Last Admin: 04/26/19 22:24 Dose: 5 mg Methylprednisolone Sodium Succinate (Solu-Medrol -) 40 mg IVPUSH Q8H-IV [facility] Last Admin: 04/27/19 10:03 Dose: 40 mg Nystatin (Nystatin Oral Suspension -) 500,000 units PO Q6HPO [facility] Last Admin: 04/27/19 12:06 Dose: 500,000 units Sertraline HCl 50 mg/ (Sertraline HCl 25 mg) 75 mg PO DAILY [facility] Last Admin: 04/27/19 10:03 Dose: 75 mg Silver Sulfadiazine (Silvadene -) 1 applic TP BID [facility] Last Admin: 04/27/19 10:04 Dose: 1 applic Tiotropium [place] (Spiriva Respimat) 2 puff IH DAILY [facility] Last Admin: 04/27/19 10:04 Dose: 2 puff Trimethoprim/Sulfamethoxazole (Bactrim Ds -) 1 each PO BID [facility] Last Admin: 04/27/19 10:03 Dose: 1 each Zinc Oxide/Panthenol/Vitamin E (Balmex Cream -) 1 applic TP BID [facility] Last Admin: 04/27/19 10:04 Dose: 1 applic - Objective Vital Signs: Vital Signs Temperature 98.4 F 04/27/19 08:58 Pulse Rate 113 H 04/27/19 08:58 Respiratory Rate 24 H 04/27/19 08:59 Blood Pressure 129/79 04/27/19 08:58 O2 Sat by Pulse Oximetry (%) 94 L 04/27/19 08:59 Eyes: Yes: Conjunctiva Clear Cardiovascular: Yes: Regular Rate and Rhythm Respiratory: Yes: Other (decreased breath sounds b/l, rhonchi no rales) Gastrointestinal: Yes: Soft Edema: No Neurological: Yes: Alert Labs: CBC, BMP 04/27/19 06:15 04/27/19 06:15 INR, PTT INR 1.03 (0.83-1.09) 04/06/19 19:45 Assessment/Plan Assessment/Plan echo 02/2019 tds, nl LV function, RV not well visualized, severe pujlm HTN >60 mmHg RVSP stress echo 04/07: apical ischemia a.e. COPD, acute HFpEF, severe pulm HTN ? cor pulmonale - worsening sob, with BUN/Cr rising -repeat CXR -Consider re-dosing with IV Lasix - steroids, BDs, suppl O2 per pulm - metoprolol dc'ed given prolonged, symptomatic airways dz sx's here, and EF has normalized--observe for angina sx's elevated trop: - borderline trop, flat trend, not c/w acs - EKG no ischemic changes history of stress induced CM: with mild acute on chronic diastolic CHF exacerbation in setting of increased IVF - nl EF on echo 02/2019 - cont lisinopril. hold BB, as above (? contributing to copd sx's) DORIS on CKD: - baseline creat 1.4-1.9 - renal fxn improved here PSVT/PAT: - brief runs, off tele now - cont bb CAD: - +apical ischemia 03/2018 managed medically - no angina - cont aspirin, statin. 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
--- NOTE | 2019-04-27 16:38 | PN ---
Progress Note (short form) - Note Progress Note: Renal follow up for hyponatremia Seen and examined at the bedside awake and alert complains of shortness of breath at rest no chest pain, fever, chills making urine Vital Signs Temperature 97.7 F 04/27/19 14:00 Pulse Rate 122 H 04/27/19 14:00 Respiratory Rate 24 H 04/27/19 14:00 Blood Pressure 118/68 04/27/19 14:00 O2 Sat by Pulse Oximetry (%) 94 L 04/27/19 08:59 Intake & Output 04/24/19 04/25/19 04/26/19 04/27/19 23:59 23:59 23:59 23:59 Intake Total 0 350 970 50 Output Total 53 290 Balance 0 297 680 50 Weight 60.016 kg 60.555 kg 56.835 kg NAD Course BS soft NT/ND no LE edema, clubbing or cyanosis CBC, BMP 04/27/19 06:15 04/27/19 06:15 Current Medications Acetaminophen (Tylenol -) 650 mg PO Q4H PRN PRN Reason: PAIN LEVEL 1-5 Last Admin: 04/16/19 22:14 Dose: 650 mg Albuterol Sulfate (Ventolin 0.083% Nebulizer Soln -) 1 amp NEB RQ4H [facility] Last Admin: 04/27/19 15:23 Dose: 1 amp Ascorbic Acid (Vitamin C -) 500 mg PO BID [facility] Last Admin: 04/27/19 10:03 Dose: 500 mg Budesonide/Formoterol Fumarate (Symbicort 160/4.5mcg -) 2 puff IH BID [facility] Last Admin: 04/27/19 10:04 Dose: 2 puff Carbidopa/Levodopa (Sinemet 25/100 -) 2 each PO TID [facility] Last Admin: 04/27/19 13:50 Dose: 2 each Meropenem 1 gm/ Dextrose 100 mls @ 200 mls/hr IVPB Q12H [facility] Last Admin: 04/27/19 15:01 Dose: 200 mls/hr Melatonin (Melatonin) 5 mg PO HS PRN PRN Reason: INSOMNIA Last Admin: 04/26/19 22:24 Dose: 5 mg Methylprednisolone Sodium Succinate (Solu-Medrol -) 40 mg IVPUSH Q8H-IV [facility] Last Admin: 01/07/20 10:03 Dose: 40 mg Nystatin (Nystatin Oral Suspension -) 500,000 units PO Q6HPO [facility] Last Admin: 04/27/19 12:06 Dose: 500,000 units Sertraline HCl 50 mg/ (Sertraline HCl 25 mg) 75 mg PO DAILY [facility] Last Admin: 04/27/19 10:03 Dose: 75 mg Silver Sulfadiazine (Silvadene -) 1 applic TP BID [facility] Last Admin: 04/27/19 10:04 Dose: 1 applic Tiotropium [place] (Spiriva Respimat) 2 puff IH DAILY [facility] Last Admin: 04/27/19 10:04 Dose: 2 puff Trimethoprim/Sulfamethoxazole (Bactrim Ds -) 1 each PO BID [facility] Last Admin: 04/27/19 10:03 Dose: 1 each Zinc Oxide/Panthenol/Vitamin E (Balmex Cream -) 1 applic TP BID [facility] Last Admin: 04/27/19 10:04 Dose: 1 applic 89 year old gentleman with history of COPD, Lung cancer, cardiomyopathy, CKD presented with cough and shortness of breath and noted to have worsening hyponatremia. 1. hyponatremia from poor solute intake + diuretics in setting of D5W infusion with antibiotics 2. Respiratory failure 3. Bronchitis 4. Leukocytosis SeruM Na is now within normal limits Cr slightly trend up as well BUN. This could be related to bactrim + steroids however will give trial of IVF at low rate. CXR shows no evidence of congestion/CHF/effusions continue steroids as per pulmonary Zack Saleem DO
[2019-04-27] MEDS ORDERED: SODIUM CHLORIDE 1,000 ML IV SCH (16:45)
[2019-04-27] MEDS: DRONABINOL 2.5 MG CAPSULE PO SCH (23:27)
[2019-04-28] MEDS ORDERED: PT OWN MED DRAWER 7, Y5N ONE ×3 (00:07→21:28)
[2019-04-28] MEDS: ALBUTEROL SO4 0.083% IH SOL 2.5 MG/3 ML VIAL.NEB. NEB SCH ×6 (00:31→20:24)
[2019-04-28] MEDS ORDERED: MEROPENEM 1 GM VIAL (RESTRICTED TO ID) IVPB ONE ×2 (02:25→14:18)
[2019-04-28] MEDS ORDERED: DEXTROSE 5%-WATER 100 ML IVPB ONE ×2 (02:26→14:19)
[2019-04-28] MEDS: MEROPENEM 1 GM in DEXTROSE 5%-WATER 100 ML IVPB SCH ×2 (02:31→14:23)
[2019-04-28] MEDS: methylPREDNISolone NA SUCC 40 MG/1 ML VIAL IVPUSH SCH ×3 (02:31→18:23)
[2019-04-28] MEDS: CARBIDOPA/LEVODOPA 25/100 TABLET (FP) PO SCH ×3 (05:59→21:35)
[2019-04-28] MEDS: NYSTATIN 500,000 UNITS/5 ML SUSPENSION PO SCH ×4 (05:59→23:15)
--- NOTE | 2019-04-28 08:07 | PN ---
Progress Note (short form) - Note Progress Note: Feels generalized weakness and fatigue. Still with congested cough. Breathing feels stable. No CP. Intake & Output 04/25/19 04/26/19 04/27/19 04/28/19 23:59 23:59 23:59 23:59 Intake Total 621 342 5256 252 Output Total 53 290 Balance 995 032 4735 252 Weight 133 lb 8 oz 125 lb 4.8 oz 122 lb 6.4 oz Last Vital Signs Temp Pulse Resp BP Pulse Ox 97.6 F 108 H 20 134/77 99 04/28/19 06:00 04/28/19 06:00 04/28/19 06:00 04/28/19 06:00 04/27/19 21:00 Active Medications Acetaminophen (Tylenol -) 650 mg PO Q4H PRN PRN Reason: PAIN LEVEL 1-5 Last Admin: 04/16/19 22:14 Dose: 650 mg Albuterol Sulfate (Ventolin 0.083% Nebulizer Soln -) 1 amp NEB RQ4H [facility] Last Admin: 04/28/19 04:54 Dose: 1 amp Ascorbic Acid (Vitamin C -) 500 mg PO BID [facility] Last Admin: 04/27/19 21:40 Dose: 500 mg Budesonide/Formoterol Fumarate (Symbicort 160/4.5mcg -) 2 puff IH BID [facility] Last Admin: 04/27/19 21:42 Dose: 2 puff Carbidopa/Levodopa (Sinemet 25/100 -) 2 each PO TID [facility] Last Admin: 04/28/19 05:59 Dose: 2 each Dronabinol (Marinol -) 5 mg PO DAILY@1200 [facility] Stop: 05/03/19 12:01 Last Admin: 04/27/19 23:27 Dose: 5 mg Meropenem 1 gm/ Dextrose 100 mls @ 200 mls/hr IVPB Q12H [facility] Last Admin: 04/28/19 02:31 Dose: 200 mls/hr Melatonin (Melatonin) 5 mg PO HS PRN PRN Reason: INSOMNIA Last Admin: 04/26/19 22:24 Dose: 5 mg Methylprednisolone Sodium Succinate (Solu-Medrol -) 40 mg IVPUSH Q8H-IV [facility] Last Admin: 04/28/19 02:31 Dose: 40 mg Nystatin (Nystatin Oral Suspension -) 500,000 units PO Q6HPO [facility] Last Admin: 04/28/19 05:59 Dose: 500,000 units Sertraline HCl 50 mg/ (Sertraline HCl 25 mg) 75 mg PO DAILY [facility] Last Admin: 04/27/19 10:03 Dose: 75 mg Silver Sulfadiazine (Silvadene -) 1 applic TP BID [facility] Last Admin: 04/27/19 21:41 Dose: 1 applic Tiotropium [place] (Spiriva Respimat) 2 puff IH DAILY [facility] Last Admin: 04/27/19 10:04 Dose: 2 puff Trimethoprim/Sulfamethoxazole (Bactrim Ds -) 1 each PO BID [facility] Last Admin: 04/27/19 21:40 Dose: 1 each Zinc Oxide/Panthenol/Vitamin E (Balmex Cream -) 1 applic TP BID [facility] Last Admin: 04/27/19 21:41 Dose: 1 applic Gen: Mildly tachypneic at rest on NC O2 Heart: RRR Lung: scattered bilateral rhonchi, no wheeze Abd: soft, nontender Ext: no edema Laboratory Results - last 24 hr 04/27/19 04/27/19 06:15 12:00 Neutrophils % (Manual) 97.0 H Band Neutrophils % 1.0 Lymphocytes % (Manual) 0.0 L Monocytes % (Manual) 0 L D Eosinophils % (Manual) 0.0 Basophils % (Manual) 0.0 Myelocytes % (Man) 1 D Promyelocytes % (Man) 0 Blast Cells % (Manual) 0 Metamyelocytes 0 Hypochromia 0 Platelet Estimate Normal Platelet Comment Present Polychromasia 1+ Poikilocytosis 1+ Anisocytosis 1+ Foreign Cells 1+ Random Vancomycin 14.0 L Problem List - Problems (1) COPD exacerbation Code(s): J44.1 - CHRONIC OBSTRUCTIVE PULMONARY DISEASE W (ACUTE) EXACERBATION A/P Acute COPD Exacerbation Chronic Hypoxic Respiratory Failure Severe Pulmonary HTN CAD HTN Progressive Hyponatremia due to hypotonic saline and diuretics - ABX per ID - Inhaled bronchodilators - Symbicort - O2 to keep SpO2 >90% - DVT prophylaxis - Noted Medrol restarted: at this point, little benefit from higher dose steroids: can consider Prednisone Dr Martinez
[2019-04-28 08:21] LABS: BASO % 0.3 % (0-2.0); EOS % 0.1 % (0-4.5); HEMATOCRIT 36.1 % (35.4-49); HEMOGLOBIN 11.8 GM/dL (11.7-16.9); LYMPH % 3.8 % (8-40); MCH 31.9 pg (25.7-33.7); MCHC 32.7 g/dl (32.0-35.9); MEAN CELL VOLUME 97.4 fl (80-96); MEAN PLT VOLUME 7.8 fl (7.5-11.1); NEUT % 91.8 % (42.8-82.8); PLATELET COUNT 148 K/MM3 (134-434)
--- NOTE | 2019-04-28 08:37 | PN ---
Progress Note, Physician - Current Medication List Current Medications: Active Medications Acetaminophen (Tylenol -) 650 mg PO Q4H PRN PRN Reason: PAIN LEVEL 1-5 Last Admin: 04/16/19 22:14 Dose: 650 mg Albuterol Sulfate (Ventolin 0.083% Nebulizer Soln -) 1 amp NEB RQ4H [facility] Last Admin: 04/28/19 04:54 Dose: 1 amp Ascorbic Acid (Vitamin C -) 500 mg PO BID [facility] Last Admin: 04/27/19 21:40 Dose: 500 mg Budesonide/Formoterol Fumarate (Symbicort 160/4.5mcg -) 2 puff IH BID [facility] Last Admin: 04/27/19 21:42 Dose: 2 puff Carbidopa/Levodopa (Sinemet 25/100 -) 2 each PO TID [facility] Last Admin: 04/28/19 05:59 Dose: 2 each Dronabinol (Marinol -) 5 mg PO DAILY@1200 [facility] Stop: 05/03/19 12:01 Last Admin: 04/27/19 23:27 Dose: 5 mg Meropenem 1 gm/ Dextrose 100 mls @ 200 mls/hr IVPB Q12H [facility] Last Admin: 04/28/19 02:31 Dose: 200 mls/hr Melatonin (Melatonin) 5 mg PO HS PRN PRN Reason: INSOMNIA Last Admin: 04/26/19 22:24 Dose: 5 mg Methylprednisolone Sodium Succinate (Solu-Medrol -) 40 mg IVPUSH Q8H-IV [facility] Last Admin: 04/28/19 02:31 Dose: 40 mg Nystatin (Nystatin Oral Suspension -) 500,000 units PO Q6HPO [facility] Last Admin: 04/28/19 05:59 Dose: 500,000 units Sertraline HCl 50 mg/ (Sertraline HCl 25 mg) 75 mg PO DAILY [facility] Last Admin: 04/27/19 10:03 Dose: 75 mg Silver Sulfadiazine (Silvadene -) 1 applic TP BID [facility] Last Admin: 04/27/19 21:41 Dose: 1 applic Tiotropium [place] (Spiriva Respimat) 2 puff IH DAILY [facility] Last Admin: 04/27/19 10:04 Dose: 2 puff Trimethoprim/Sulfamethoxazole (Bactrim Ds -) 1 each PO BID [facility] Last Admin: 04/27/19 21:40 Dose: 1 each Zinc Oxide/Panthenol/Vitamin E (Balmex Cream -) 1 applic TP BID [facility] Last Admin: 04/27/19 21:41 Dose: 1 applic - Objective Vital Signs: Vital Signs Temperature 97.6 F 04/28/19 06:00 Pulse Rate 108 H 04/28/19 06:00 Respiratory Rate 20 04/28/19 06:00 Blood Pressure 134/77 04/28/19 06:00 O2 Sat by Pulse Oximetry (%) 99 04/27/19 21:00 Labs: CBC, BMP 04/28/19 07:30 INR, PTT INR 1.03 (0.83-1.09) 04/06/19 19:45 Problem List - Problems (1) Pulmonary hypertension Code(s): I27.20 - PULMONARY HYPERTENSION, UNSPECIFIED (2) GERD (gastroesophageal reflux disease) Code(s): K21.9 - GASTRO-ESOPHAGEAL REFLUX DISEASE WITHOUT ESOPHAGITIS (3) Acute diastolic (congestive) heart failure Code(s): I50.31 - ACUTE DIASTOLIC (CONGESTIVE) HEART FAILURE (4) Acute exacerbation of chronic obstructive pulmonary disease Code(s): J44.1 - CHRONIC OBSTRUCTIVE PULMONARY DISEASE W (ACUTE) EXACERBATION (5) Acute hypoxemic respiratory failure Code(s): J96.01 - ACUTE RESPIRATORY FAILURE WITH HYPOXIA (6) Bipolar 1 disorder Code(s): F31.9 - BIPOLAR DISORDER, UNSPECIFIED (7) Bronchiectasis Code(s): J47.9 - BRONCHIECTASIS, UNCOMPLICATED (8) CHF (congestive heart failure), NYHA class II Code(s): I50.9 - HEART FAILURE, UNSPECIFIED (9) Chronic kidney disease (CKD) Code(s): N18.9 - CHRONIC KIDNEY DISEASE, UNSPECIFIED (10) Elevated troponin Code(s): R74.8 - ABNORMAL LEVELS OF OTHER SERUM ENZYMES (11) Emphysema of lung Code(s): J43.9 - EMPHYSEMA, UNSPECIFIED (12) Hypotension Code(s): I95.9 - HYPOTENSION, UNSPECIFIED (13) HTN (hypertension) Code(s): I10 - ESSENTIAL (PRIMARY) HYPERTENSION (14) Insomnia disorder Code(s): G47.00 - INSOMNIA, UNSPECIFIED
--- NOTE | 2019-04-28 09:01 | PN ---
Progress Note (short form) - Note Progress Note: 89 year old male history of HTN,COPD, CAD. Patient came for shortness of breath and has been treated with steroid and abx, pateint has difficulty with breathing. He also have history of parkinson disease diagnosed by Dr Gardner and he is taking sinemet 1 tab ( 25/100) tid. Spoke to nursing staff, and felt there was way more tremor before increase of dose NEUROLOGICAL EXAMINATION Alert oriented x 2, neck is supple eomi, pupils reactive no face asymmetry moving all extremity there is bradykinesia and mild tremors were identified( more so on right side) sensation is normal , strength is normal Assessment/Plan 89 year old male history of HTN,COPD, CAD. He has history of PD for two yeas, and on sinemet 25/100 one tab po tid. Plan: continue to watch on sinemet (25/100)two tab po tid spoke to nursing staff and felt it helped him in terms of tremors, woul dlike to keep on medication for few days Thanking you so much Keegan Ko MD
[2019-04-28 09:07] LABS: BLOOD UREA NITROGEN 77.1 mg/dL (7-18); CREATININE 1.7 mg/dL (0.55-1.3); POTASSIUM 4.4 mmol/L (3.5-5.1)
[2019-04-28] MEDS ORDERED: SERTRALINE HCL 50 MG TABLET (FP) ONE (10:30)
[2019-04-28] MEDS ORDERED: SERTRALINE HCL 25 MG TABLET (FP) ONE (10:30)
[2019-04-28] MEDS: SERTRALINE HCL 50 MG, SERTRALINE HCL 25 MG PO SCH (10:41)
[2019-04-28] MEDS: SULFAMETHOXAZOLE/TRIMETHOPRIM 800MG/160MG D.S. TABLET PO SCH (10:41)
[2019-04-28] MEDS: ASCORBIC ACID 500 MG TABLET (FP) PO SCH ×2 (10:41→21:35)
[2019-04-28] MEDS: SILVER SULFADIAZINE 1% TOP CREAM 50 GM JAR TP SCH ×2 (10:45→21:36)
[2019-04-28] MEDS: TIOTROPIUM BROMIDE 2.5 MCG (SPIRIVA) RESPIMAT INHALER IH SCH (10:45)
[2019-04-28] MEDS: ZINC OXIDE/PANTHENOL/VITAMIN E 56 GM TUBE TP SCH ×2 (10:46→21:36)
[2019-04-28] MEDS: BUDESONIDE/FORMETEROL FUMARATE 160/4.5 mcg INHALER IH SCH ×2 (10:46→21:36)
[2019-04-28] MEDS: DRONABINOL 2.5 MG CAPSULE PO SCH (11:37)
--- NOTE | 2019-04-28 12:02 | PN ---
Progress Note, Physician History of Present Illness: weak not feeling well - Current Medication List Current Medications: Active Medications Acetaminophen (Tylenol -) 650 mg PO Q4H PRN PRN Reason: PAIN LEVEL 1-5 Last Admin: 04/16/19 22:14 Dose: 650 mg Albuterol Sulfate (Ventolin 0.083% Nebulizer Soln -) 1 amp NEB RQ4H [facility] Last Admin: 04/28/19 07:35 Dose: 1 amp Ascorbic Acid (Vitamin C -) 500 mg PO BID [facility] Last Admin: 04/28/19 10:41 Dose: 500 mg Budesonide/Formoterol Fumarate (Symbicort 160/4.5mcg -) 2 puff IH BID [facility] Last Admin: 04/28/19 10:46 Dose: 2 puff Carbidopa/Levodopa (Sinemet 25/100 -) 2 each PO TID [facility] Last Admin: 04/28/19 05:59 Dose: 2 each Dronabinol (Marinol -) 5 mg PO DAILY@1200 [facility] Stop: 05/03/19 12:01 Last Admin: 04/28/19 11:37 Dose: 5 mg Meropenem 1 gm/ Dextrose 100 mls @ 200 mls/hr IVPB Q12H [facility] Last Admin: 04/28/19 02:31 Dose: 200 mls/hr Melatonin (Melatonin) 5 mg PO HS PRN PRN Reason: INSOMNIA Last Admin: 04/26/19 22:24 Dose: 5 mg Methylprednisolone Sodium Succinate (Solu-Medrol -) 40 mg IVPUSH Q8H-IV [facility] Last Admin: 04/28/19 10:41 Dose: 40 mg Nystatin (Nystatin Oral Suspension -) 500,000 units PO Q6HPO [facility] Last Admin: 04/28/19 11:37 Dose: 500,000 units Sertraline HCl 50 mg/ (Sertraline HCl 25 mg) 75 mg PO DAILY [facility] Last Admin: 04/28/19 10:41 Dose: 75 mg Silver Sulfadiazine (Silvadene -) 1 applic TP BID [facility] Last Admin: 04/28/19 10:45 Dose: 1 applic Tiotropium [place] (Spiriva Respimat) 2 puff IH DAILY [facility] Last Admin: 04/28/19 10:45 Dose: 2 puff Zinc Oxide/Panthenol/Vitamin E (Balmex Cream -) 1 applic TP BID [facility] Last Admin: 04/28/19 10:46 Dose: 1 applic - Objective Vital Signs: Vital Signs Temperature 97.6 F 04/28/19 06:00 Pulse Rate 108 H 04/28/19 06:00 Respiratory Rate 04/28/19 06:00 Blood Pressure 134/77 04/28/19 06:00 O2 Sat by Pulse Oximetry (%) 99 04/27/19 21:00 Constitutional: Yes: Calm, Other (weak,) Cardiovascular: Yes: S1, S2 Respiratory: Yes: Regular, On Nasal O2, Poor Air Entry, Rhonchi Gastrointestinal: Yes: Normal Bowel Sounds, Soft Musculoskeletal: Yes: WNL Extremities: Yes: WNL Neurological: Yes: Alert Psychiatric: Yes: Alert Labs: CBC, BMP 04/28/19 07:30 04/28/19 07:30 INR, PTT INR 1.03 (0.83-1.09) 04/06/19 19:45 Assessment/Plan Problem List - Problems (1) Pulmonary hypertension Code(s): I27.20 - PULMONARY HYPERTENSION, UNSPECIFIED (2) GERD (gastroesophageal reflux disease) Code(s): K21.9 - GASTRO-ESOPHAGEAL REFLUX DISEASE WITHOUT ESOPHAGITIS (3) Acute diastolic (congestive) heart failure Code(s): I50.31 - ACUTE DIASTOLIC (CONGESTIVE) HEART FAILURE (4) Acute exacerbation of chronic obstructive pulmonary disease Code(s): J44.1 - CHRONIC OBSTRUCTIVE PULMONARY DISEASE W (ACUTE) EXACERBATION (5) Acute hypoxemic respiratory failure Code(s): J96.01 - ACUTE RESPIRATORY FAILURE WITH HYPOXIA (6) Bipolar 1 disorder Code(s): F31.9 - BIPOLAR DISORDER, UNSPECIFIED (7) Bronchiectasis Code(s): J47.9 - BRONCHIECTASIS, UNCOMPLICATED (8) CHF (congestive heart failure), NYHA class II Code(s): I50.9 - HEART FAILURE, UNSPECIFIED (9) Chronic kidney disease (CKD) Code(s): N18.9 - CHRONIC KIDNEY DISEASE, UNSPECIFIED (10) Elevated troponin Code(s): R74.8 - ABNORMAL LEVELS OF OTHER SERUM ENZYMES (11) Emphysema of lung Code(s): J43.9 - EMPHYSEMA, UNSPECIFIED (12) Hypotension Code(s): I95.9 - HYPOTENSION, UNSPECIFIED (13) HTN (hypertension) Code(s): I10 - ESSENTIAL (PRIMARY) HYPERTENSION (14) Insomnia disorder Code(s): G47.00 - INSOMNIA, UNSPECIFIED plan continue abx will stop bactrim monitor rest as per the team
[2019-04-28 12:33] LABS: ANISOCYTOSIS 1+; MACROCYTOSIS 1+; OVALOCYTE 1+; PLATELET ESTIMATE DECREASED; TEAR DROP CELLS 1+
--- NOTE | 2019-04-28 15:44 | PN ---
Progress Note (short form) - Note Progress Note: Renal follow up for hyponatremia Seen and examined at the bedside awake and alert complains of shortness of breath at rest making urine no abd pain Vital Signs Temperature 97.7 F 04/28/19 14:00 Pulse Rate 96 H 04/28/19 14:00 Respiratory Rate 20 04/28/19 14:00 Blood Pressure 130/74 04/28/19 14:00 O2 Sat by Pulse Oximetry (%) 100 04/28/19 09:00 Intake & Output 04/25/19 04/26/19 04/27/19 04/28/19 23:59 23:59 23:59 23:59 Intake Total 536 090 5718 302 Output Total 53 290 Balance 106 899 7149 302 Weight 60.555 kg 56.835 kg 55.52 kg NAD Course BS soft NT/ND no LE edema, clubbing or cyanosis CBC, BMP 04/28/19 07:30 04/28/19 07:30 Current Medications Acetaminophen (Tylenol -) 650 mg PO Q4H PRN PRN Reason: PAIN LEVEL 1-5 Last Admin: 04/16/19 22:14 Dose: 650 mg Albuterol Sulfate (Ventolin 0.083% Nebulizer Soln -) 1 amp NEB RQ4H [facility] Last Admin: 04/28/19 15:25 Dose: 1 amp Ascorbic Acid (Vitamin C -) 500 mg PO BID [facility] Last Admin: 04/28/19 10:41 Dose: 500 mg Budesonide/Formoterol Fumarate (Symbicort 160/4.5mcg -) 2 puff IH BID [facility] Last Admin: 04/28/19 10:46 Dose: 2 puff Carbidopa/Levodopa (Sinemet 25/100 -) 2 each PO TID [facility] Last Admin: 04/28/19 14:11 Dose: 2 each Dronabinol (Marinol -) 5 mg PO DAILY@1200 [facility] Stop: 05/03/19 12:01 Last Admin: 04/28/19 11:37 Dose: 5 mg Meropenem 1 gm/ Dextrose 100 mls @ 200 mls/hr IVPB Q12H [facility] Last Admin: 04/28/19 14:23 Dose: 200 mls/hr Melatonin (Melatonin) 5 mg PO HS PRN PRN Reason: INSOMNIA Last Admin: 04/26/19 22:24 Dose: 5 mg Methylprednisolone Sodium Succinate (Solu-Medrol -) 40 mg IVPUSH Q8H-IV [facility] Last Admin: 04/28/19 10:41 Dose: 40 mg Nystatin (Nystatin Oral Suspension -) 500,000 units PO Q6HPO [facility] Last Admin: 04/28/19 11:37 Dose: 500,000 units Sertraline HCl 50 mg/ (Sertraline HCl 25 mg) 75 mg PO DAILY [facility] Last Admin: 04/28/19 10:41 Dose: 75 mg Silver Sulfadiazine (Silvadene -) 1 applic TP BID [facility] Last Admin: 04/28/19 10:45 Dose: 1 applic Tiotropium [place] (Spiriva Respimat) 2 puff IH DAILY [facility] Last Admin: 04/28/19 10:45 Dose: 2 puff Zinc Oxide/Panthenol/Vitamin E (Balmex Cream -) 1 applic TP BID [facility] Last Admin: 04/28/19 10:46 Dose: 1 applic 89 year old gentleman with history of COPD, Lung cancer, cardiomyopathy, CKD presented with cough and shortness of breath and noted to have worsening hyponatremia. 1. hyponatremia from poor solute intake + diuretics in setting of D5W infusion with antibiotics 2. Respiratory failure 3. Bronchitis 4. Leukocytosis sodium is now improved and stable. BUN/Cr remain elevated. This could be due to medications (Bactrium/Steroids). will continue gentle IVF CXR shows no evidence of congestion/CHF/effusions continue steroids as per pulmonary Zack Saleem DO
--- NOTE | 2019-04-28 15:53 | PN ---
Progress Note (short form) - Note Progress Note: s: still sob, no chest pain, palps, dizziness, edema. Current Medications Generic Name Dose Route Start Last Admin Trade Name Freq PRN Reason Stop Dose Admin Acetaminophen 650 mg 04/07/19 00:02 04/16/19 22:14 Tylenol - PO 650 mg Q4H PRN Administration PAIN LEVEL 1-5 Albuterol Sulfate 1 amp 04/23/19 16:00 04/28/19 15:25 Ventolin 0.083% Nebulizer Soln - NEB 1 amp RQ4H NADIA Administration Ascorbic Acid 500 mg 04/07/19 22:00 04/28/19 10:41 Vitamin C - PO 500 mg BID NADIA Administration Budesonide/Formoterol Fumarate 2 puff 04/08/19 13:30 04/28/19 10:46 Symbicort 160/4.5mcg - IH 2 puff BID NADIA Administration Carbidopa/Levodopa 2 each 04/26/19 14:15 04/28/19 14:11 Sinemet 25/100 - PO 2 each TID NADIA Administration Dronabinol 5 mg 04/27/19 22:00 04/28/19 11:37 Marinol - PO 05/03/19 12:01 5 mg DAILY@1200 NADIA Administration Meropenem 1 gm/ Dextrose 100 mls @ 200 mls/hr 04/25/19 15:00 04/28/19 14:23 IVPB 200 mls/hr Q12H NADIA Administration As Directed Sodium Chloride 1,000 mls @ 42 mls/hr 04/28/19 15:45 Normal Saline - IV ASDIR NADIA Melatonin 5 mg 04/17/19 04:26 04/26/19 22:24 Melatonin PO 5 mg HS PRN Administration INSOMNIA Methylprednisolone Sodium Succinate 40 mg 04/25/19 14:00 04/28/19 10:41 Solu-Medrol - IVPUSH 40 mg Q8H-IV NADIA Administration Nystatin 500,000 units 04/19/19 12:00 04/28/19 11:37 Nystatin Oral Suspension - PO 500,000 units Q6HPO NADIA Administration Sertraline HCl 50 mg/ 75 mg 04/16/19 10:00 04/28/19 10:41 Sertraline HCl 25 mg PO 75 mg DAILY NADIA Administration Silver Sulfadiazine 1 applic 04/07/19 22:00 04/28/19 10:45 Silvadene - TP 1 applic BID NADIA Administration Tiotropium [place] 2 puff 04/13/19 10:30 04/28/19 10:45 Spiriva Respimat IH 2 puff DAILY NADIA Administration Zinc Oxide/Panthenol/Vitamin E 1 applic 04/07/19 22:00 04/28/19 10:46 Balmex Cream - TP 1 applic BID NADIA Administration Vital Signs Period Temp Pulse Resp BP Sys/[place] Pulse Ox Last 24 Hr 97.5 F-98.2 F 96-109 18-20 114-134/70-77 99-100 Constitutional: Yes: Well Nourished, No Distress, Calm Cardiovascular: Yes: Regular Rate and Rhythm, S1, S2. No: JVD, Gallop, Murmur Respiratory: Yes: Regular, Rhonchi. No: Accessory Muscle Use Extremities: No: Cold Edema: No Neurological: Yes: Alert, Oriented Psychiatric: No: Agitated no jaundice diaphoresis CBC, BMP 04/28/19 07:30 04/28/19 07:30 Assessment/Plan echo 02/2019 tds, nl LV function, RV not well visualized, severe pulm HTN >60 mmHg RVSP stress echo 04/07: apical ischemia a.e. COPD, acute HFpEF, severe pulm HTN ? cor pulmonale - worsening sob, cxr w/o chf - steroids, BDs, suppl O2 per pulm - metoprolol dc'ed given prolonged, symptomatic airways dz sx's here, and EF has normalized--observe for angina sx's elevated trop: - borderline trop, flat trend, not c/w acs - EKG no ischemic changes history of stress induced CM: with mild acute on chronic diastolic CHF exacerbation in setting of increased IVF - nl EF on echo 02/2019 - cont lisinopril. hold BB, as above (? contributing to copd sx's) DORIS on CKD: - baseline creat 1.4-1.9 - renal fxn improved here PSVT/PAT: - brief runs, off tele now - cont bb CAD: - +apical ischemia 03/2018 managed medically - no angina - cont aspirin, statin. 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
[2019-04-28] MEDS: SODIUM CHLORIDE 1,000 ML IV SCH (18:21)
[2019-04-29] MEDS: ALBUTEROL SO4 0.083% IH SOL 2.5 MG/3 ML VIAL.NEB. NEB SCH ×6 (00:05→19:57)
[2019-04-29] MEDS ORDERED: DEXTROSE 5%-WATER 100 ML IVPB ONE ×2 (02:00→13:56)
[2019-04-29] MEDS ORDERED: MEROPENEM 1 GM VIAL (RESTRICTED TO ID) IVPB ONE ×2 (02:00→13:56)
[2019-04-29] MEDS: methylPREDNISolone NA SUCC 40 MG/1 ML VIAL IVPUSH SCH (02:05)
[2019-04-29] MEDS: MEROPENEM 1 GM in DEXTROSE 5%-WATER 100 ML IVPB SCH ×2 (02:05→14:01)
[2019-04-29] MEDS: CARBIDOPA/LEVODOPA 25/100 TABLET (FP) PO SCH ×3 (05:36→21:54)
[2019-04-29] MEDS: NYSTATIN 500,000 UNITS/5 ML SUSPENSION PO SCH ×4 (05:36→23:36)
[2019-04-29] MEDS ORDERED: PT OWN MED DRAWER 7, Y5N ONE ×2 (05:58→10:13)
--- NOTE | 2019-04-29 08:27 | PN ---
Progress Note (short form) - Note Progress Note: Feels generalized weakness and fatigue and [place]. Still with some cough but says it dry. No CP. Intake & Output 04/26/19 04/27/19 04/28/19 04/29/19 23:59 23:59 23:59 23:59 Intake Total 970 1082 1234 252 Output Total 290 Balance 680 1082 1234 252 Weight 133 lb 8 oz 125 lb 4.8 oz 122 lb 6.4 oz 122 lb 11.2 oz Last Vital Signs Temp Pulse Resp BP Pulse Ox 97.6 F 110 H 20 135/80 100 04/29/19 06:00 04/29/19 06:00 04/29/19 06:00 04/29/19 06:00 04/28/19 21:00 Active Medications Acetaminophen (Tylenol -) 650 mg PO Q4H PRN PRN Reason: PAIN LEVEL 1-5 Last Admin: 04/16/19 22:14 Dose: 650 mg Albuterol Sulfate (Ventolin 0.083% Nebulizer Soln -) 1 amp NEB RQ4H [facility] Last Admin: 04/29/19 08:13 Dose: 1 amp Ascorbic Acid (Vitamin C -) 500 mg PO BID [facility] Last Admin: 04/28/19 21:35 Dose: 500 mg Budesonide/Formoterol Fumarate (Symbicort 160/4.5mcg -) 2 puff IH BID [facility] Last Admin: 04/28/19 21:36 Dose: 2 puff Carbidopa/Levodopa (Sinemet 25/100 -) 2 each PO TID [facility] Last Admin: 04/29/19 05:36 Dose: 2 each Dronabinol (Marinol -) 5 mg PO DAILY@1200 [facility] Stop: 05/03/19 12:01 Last Admin: 04/28/19 11:37 Dose: 5 mg Meropenem 1 gm/ Dextrose 100 mls @ 200 mls/hr IVPB Q12H [facility] Last Admin: 04/29/19 02:05 Dose: 200 mls/hr Sodium Chloride (Normal Saline -) 1,000 mls @ 42 mls/hr IV ASDIR [facility] Last Admin: 04/28/19 18:21 Dose: Not Given Melatonin (Melatonin) 5 mg PO HS PRN PRN Reason: INSOMNIA Last Admin: 04/26/19 22:24 Dose: 5 mg Methylprednisolone Sodium Succinate (Solu-Medrol -) 40 mg IVPUSH Q8H-IV [facility] Last Admin: 04/29/19 02:05 Dose: 40 mg Nystatin (Nystatin Oral Suspension -) 500,000 units PO Q6HPO [facility] Last Admin: 04/29/19 05:36 Dose: 500,000 units Sertraline HCl 50 mg/ (Sertraline HCl 25 mg) 75 mg PO DAILY [facility] Last Admin: 04/28/19 10:41 Dose: 75 mg Silver Sulfadiazine (Silvadene -) 1 applic TP BID [facility] Last Admin: 04/28/19 21:36 Dose: 1 applic Tiotropium [place] (Spiriva Respimat) 2 puff IH DAILY [facility] Last Admin: 04/28/19 10:45 Dose: 2 puff Zinc Oxide/Panthenol/Vitamin E (Balmex Cream -) 1 applic TP BID [facility] Last Admin: 04/28/19 21:36 Dose: 1 applic Gen: Mildly tachypneic at rest on NC O2 Heart: RRR Lung: scattered bilateral rhonchi, no wheeze Abd: soft, nontender Ext: no edema Laboratory Results - last 24 hr 04/28/19 04/28/19 07:30 07:30 Neutrophils % (Manual) 93.1 H Band Neutrophils % 0.0 Lymphocytes % (Manual) 1.9 L D Monocytes % (Manual) 1 L D Eosinophils % (Manual) 0.0 Basophils % (Manual) 0.0 Myelocytes % (Man) 1 Promyelocytes % (Man) 0 Blast Cells % (Manual) 0 Metamyelocytes 2 D Hypochromia 0 Platelet Estimate Decreased Polychromasia 1+ Poikilocytosis 1+ Anisocytosis 1+ Macrocytosis 1+ Tear Drop Cells 1+ Ovalocytes 1+ Foreign Cells 1+ Sodium 143 Potassium 4.4 Chloride 105 Carbon Dioxide 29 Anion Gap 9 BUN 77.1 H Creatinine 1.7 H Est GFR (CKD-EPI)AfAm 41.11 Est GFR (CKD-EPI)NonAf 35.47 Random Glucose 131 H Calcium 9.0 Problem List - Problems (1) COPD exacerbation Code(s): J44.1 - CHRONIC OBSTRUCTIVE PULMONARY DISEASE W (ACUTE) EXACERBATION A/P Acute COPD Exacerbation Chronic Hypoxic Respiratory Failure Severe Pulmonary HTN CAD HTN Progressive Hyponatremia due to hypotonic saline and diuretics - ABX per ID - Inhaled bronchodilators - Symbicort - O2 to keep SpO2 >90% - DVT prophylaxis - Noted Medrol: change to Prednisone Dr Martinez
[2019-04-29 08:53] LABS: BASO % 0.1 % (0-2.0); EOS % 0.1 % (0-4.5); HEMOGLOBIN 11.2 GM/dL (11.7-16.9); LYMPH % 2.9 % (8-40); MCH 32.1 pg (25.7-33.7); MEAN CELL VOLUME 97.1 fl (80-96); MEAN PLT VOLUME 7.9 fl (7.5-11.1); MONO % 2.8 % (3.8-10.2); NEUT % 94.1 % (42.8-82.8); PLATELET COUNT 147 K/MM3 (134-434); RDW 16.5 % (11.9-15.9); WHITE BLOOD COUNT 18.7 K/mm3 (4.0-10.0)
--- NOTE | 2019-04-29 08:55 | PN ---
Progress Note, Physician - Current Medication List Current Medications: Active Medications Acetaminophen (Tylenol -) 650 mg PO Q4H PRN PRN Reason: PAIN LEVEL 1-5 Last Admin: 04/16/19 22:14 Dose: 650 mg Albuterol Sulfate (Ventolin 0.083% Nebulizer Soln -) 1 amp NEB RQ4H [facility] Last Admin: 04/29/19 08:13 Dose: 1 amp Ascorbic Acid (Vitamin C -) 500 mg PO BID [facility] Last Admin: 04/28/19 21:35 Dose: 500 mg Budesonide/Formoterol Fumarate (Symbicort 160/4.5mcg -) 2 puff IH BID [facility] Last Admin: 04/28/19 21:36 Dose: 2 puff Carbidopa/Levodopa (Sinemet 25/100 -) 2 each PO TID [facility] Last Admin: 04/29/19 05:36 Dose: 2 each Dronabinol (Marinol -) 5 mg PO DAILY@1200 NADIA Stop: 05/03/19 12:01 Last Admin: 04/28/19 11:37 Dose: 5 mg Meropenem 1 gm/ Dextrose 100 mls @ 200 mls/hr IVPB Q12H [facility] Last Admin: 04/29/19 02:05 Dose: 200 mls/hr Sodium Chloride (Normal Saline -) 1,000 mls @ 42 mls/hr IV ASDIR [facility] Last Admin: 04/28/19 18:21 Dose: Not Given Melatonin (Melatonin) 5 mg PO HS PRN PRN Reason: INSOMNIA Last Admin: 04/26/19 22:24 Dose: 5 mg Nystatin (Nystatin Oral Suspension -) 500,000 units PO Q6HPO [facility] Last Admin: 04/29/19 05:36 Dose: 500,000 units Prednisone (Deltasone -) 40 mg PO DAILY [facility] Sertraline HCl 50 mg/ (Sertraline HCl 25 mg) 75 mg PO DAILY [facility] Last Admin: 04/28/19 10:41 Dose: 75 mg Silver Sulfadiazine (Silvadene -) 1 applic TP BID [facility] Last Admin: 04/28/19 21:36 Dose: 1 applic Tiotropium [place] (Spiriva Respimat) 2 puff IH DAILY [facility] Last Admin: 04/28/19 10:45 Dose: 2 puff Zinc Oxide/Panthenol/Vitamin E (Balmex Cream -) 1 applic TP BID NADIA Last Admin: 04/28/19 21:36 Dose: 1 applic - Objective Vital Signs: Vital Signs Temperature 97.6 F 04/29/19 06:00 Pulse Rate 110 H 04/29/19 06:00 Respiratory Rate 20 04/29/19 06:00 Blood Pressure 135/80 04/29/19 06:00 O2 Sat by Pulse Oximetry (%) 100 04/28/19 21:00 Labs: INR, PTT INR 1.03 (0.83-1.09) 04/06/19 19:45 Problem List - Problems (1) Pulmonary hypertension Code(s): I27.20 - PULMONARY HYPERTENSION, UNSPECIFIED (2) GERD (gastroesophageal reflux disease) Code(s): K21.9 - GASTRO-ESOPHAGEAL REFLUX DISEASE WITHOUT ESOPHAGITIS (3) Acute diastolic (congestive) heart failure Code(s): I50.31 - ACUTE DIASTOLIC (CONGESTIVE) HEART FAILURE (4) Acute exacerbation of chronic obstructive pulmonary disease Code(s): J44.1 - CHRONIC OBSTRUCTIVE PULMONARY DISEASE W (ACUTE) EXACERBATION (5) Acute hypoxemic respiratory failure Code(s): J96.01 - ACUTE RESPIRATORY FAILURE WITH HYPOXIA (6) Bipolar 1 disorder Code(s): F31.9 - BIPOLAR DISORDER, UNSPECIFIED (7) Bronchiectasis Code(s): J47.9 - BRONCHIECTASIS, UNCOMPLICATED (8) CHF (congestive heart failure), NYHA class II Code(s): I50.9 - HEART FAILURE, UNSPECIFIED (9) Chronic kidney disease (CKD) Code(s): N18.9 - CHRONIC KIDNEY DISEASE, UNSPECIFIED (10) Elevated troponin Code(s): R74.8 - ABNORMAL LEVELS OF OTHER SERUM ENZYMES (11) Emphysema of lung Code(s): J43.9 - EMPHYSEMA, UNSPECIFIED (12) Hypotension Code(s): I95.9 - HYPOTENSION, UNSPECIFIED (13) HTN (hypertension) Code(s): I10 - ESSENTIAL (PRIMARY) HYPERTENSION (14) Insomnia disorder Code(s): G47.00 - INSOMNIA, UNSPECIFIED
[2019-04-29 09:21] LABS: BLOOD UREA NITROGEN 74.1 mg/dL (7-18); CALCIUM 9.5 mg/dL (8.5-10.1); CREATININE 1.3 mg/dL (0.55-1.3); POTASSIUM 4.4 mmol/L (3.5-5.1)
[2019-04-29] MEDS ORDERED: SERTRALINE HCL 25 MG TABLET (FP) ONE (10:13)
[2019-04-29] MEDS ORDERED: SERTRALINE HCL 50 MG TABLET (FP) ONE (10:13)
[2019-04-29 10:28] LABS: ANISOCYTOSIS 0; MACROCYTOSIS 0; PLATELET ESTIMATE NORMAL
[2019-04-29] MEDS: SODIUM CHLORIDE 1,000 ML IV SCH ×2 (10:38→18:10)
[2019-04-29] MEDS: SERTRALINE HCL 50 MG, SERTRALINE HCL 25 MG PO SCH (10:39)
[2019-04-29] MEDS: ASCORBIC ACID 500 MG TABLET (FP) PO SCH ×2 (10:39→21:54)
[2019-04-29] MEDS: predniSONE 20 MG TABLET (UD) PO SCH (10:39)
[2019-04-29] MEDS: TIOTROPIUM BROMIDE 2.5 MCG (SPIRIVA) RESPIMAT INHALER IH SCH (10:44)
[2019-04-29] MEDS: BUDESONIDE/FORMETEROL FUMARATE 160/4.5 mcg INHALER IH SCH ×2 (10:44→21:54)
[2019-04-29] MEDS: ZINC OXIDE/PANTHENOL/VITAMIN E 56 GM TUBE TP SCH ×2 (10:45→21:56)
[2019-04-29] MEDS: SILVER SULFADIAZINE 1% TOP CREAM 50 GM JAR TP SCH ×2 (10:45→21:55)
--- NOTE | 2019-04-29 11:51 | PN ---
Progress Note, Physician History of Present Illness: weak not feeling well - Current Medication List Current Medications: Active Medications Acetaminophen (Tylenol -) 650 mg PO Q4H PRN PRN Reason: PAIN LEVEL 1-5 Last Admin: 04/16/19 22:14 Dose: 650 mg Albuterol Sulfate (Ventolin 0.083% Nebulizer Soln -) 1 amp NEB RQ4H [facility] Last Admin: 04/29/19 08:13 Dose: 1 amp Ascorbic Acid (Vitamin C -) 500 mg PO BID [facility] Last Admin: 04/29/19 10:39 Dose: 500 mg Budesonide/Formoterol Fumarate (Symbicort 160/4.5mcg -) 2 puff IH BID [facility] Last Admin: 04/29/19 10:44 Dose: 2 puff Carbidopa/Levodopa (Sinemet 25/100 -) 2 each PO TID [facility] Last Admin: 04/29/19 05:36 Dose: 2 each Dronabinol (Marinol -) 5 mg PO DAILY@1200 [facility] Stop: 05/03/19 12:01 Last Admin: 04/28/19 11:37 Dose: 5 mg Meropenem 1 gm/ Dextrose 100 mls @ 200 mls/hr IVPB Q12H [facility] Last Admin: 04/29/19 02:05 Dose: 200 mls/hr Sodium Chloride (Normal Saline -) 1,000 mls @ 42 mls/hr IV ASDIR [facility] Last Admin: 04/29/19 10:38 Dose: 42 mls/hr Melatonin (Melatonin) 5 mg PO HS PRN PRN Reason: INSOMNIA Last Admin: 04/26/19 22:24 Dose: 5 mg Nystatin (Nystatin Oral Suspension -) 500,000 units PO Q6HPO [facility] Last Admin: 04/29/19 05:36 Dose: 500,000 units Prednisone (Deltasone -) 40 mg PO DAILY [facility] Last Admin: 04/29/19 10:39 Dose: 40 mg Sertraline HCl 50 mg/ (Sertraline HCl 25 mg) 75 mg PO DAILY [facility] Last Admin: 04/29/19 10:39 Dose: 75 mg Silver Sulfadiazine (Silvadene -) 1 applic TP BID [facility] Last Admin: 04/29/19 10:45 Dose: 1 applic Tiotropium [place] (Spiriva Respimat) 2 puff IH DAILY [facility] Last Admin: 04/29/19 10:44 Dose: 2 puff Zinc Oxide/Panthenol/Vitamin E (Balmex Cream -) 1 applic TP BID [facility] Last Admin: 04/29/19 10:45 Dose: 1 applic - Objective Vital Signs: Vital Signs Temperature 97.6 F 04/29/19 06:00 Pulse Rate 110 H 04/29/19 06:00 Respiratory Rate 20 04/29/19 06:00 Blood Pressure 135/80 04/29/19 06:00 O2 Sat by Pulse Oximetry (%) 100 04/28/19 21:00 Constitutional: Yes: Calm, Mild Distress Cardiovascular: Yes: S1, S2 Respiratory: Yes: Regular, On Venti-Mask, Rhonchi Gastrointestinal: Yes: Normal Bowel Sounds, Soft Musculoskeletal: Yes: WNL Extremities: Yes: WNL Neurological: Yes: Alert, Oriented Psychiatric: Yes: Alert, Oriented Labs: CBC, BMP 04/29/19 07:15 04/29/19 07:15 INR, PTT INR 1.03 (0.83-1.09) 04/06/19 19:45 Assessment/Plan Problem List - Problems (1) Pulmonary hypertension Code(s): I27.20 - PULMONARY HYPERTENSION, UNSPECIFIED (2) GERD (gastroesophageal reflux disease) Code(s): K21.9 - GASTRO-ESOPHAGEAL REFLUX DISEASE WITHOUT ESOPHAGITIS (3) Acute diastolic (congestive) heart failure Code(s): I50.31 - ACUTE DIASTOLIC (CONGESTIVE) HEART FAILURE (4) Acute exacerbation of chronic obstructive pulmonary disease Code(s): J44.1 - CHRONIC OBSTRUCTIVE PULMONARY DISEASE W (ACUTE) EXACERBATION (5) Acute hypoxemic respiratory failure Code(s): J96.01 - ACUTE RESPIRATORY FAILURE WITH HYPOXIA (6) Bipolar 1 disorder Code(s): F31.9 - BIPOLAR DISORDER, UNSPECIFIED (7) Bronchiectasis Code(s): J47.9 - BRONCHIECTASIS, UNCOMPLICATED (8) CHF (congestive heart failure), NYHA class II Code(s): I50.9 - HEART FAILURE, UNSPECIFIED (9) Chronic kidney disease (CKD) Code(s): N18.9 - CHRONIC KIDNEY DISEASE, UNSPECIFIED (10) Elevated troponin Code(s): R74.8 - ABNORMAL LEVELS OF OTHER SERUM ENZYMES (11) Emphysema of lung Code(s): J43.9 - EMPHYSEMA, UNSPECIFIED (12) Hypotension Code(s): I95.9 - HYPOTENSION, UNSPECIFIED (13) HTN (hypertension) Code(s): I10 - ESSENTIAL (PRIMARY) HYPERTENSION (14) Insomnia disorder Code(s): G47.00 - INSOMNIA, UNSPECIFIED plan continue abx will stop maciel tomorrow and see monitor rest as per the team nutrition
--- NOTE | 2019-04-29 13:24 | CON.GI ---
Consult Consult Specialty:: covering for Reason for Consultation:: for PEG insertion - History of Present Illness History of Present Illness: 89 y/o M with COPD, CKD, CHF, Parkinsons was asked to be seen for PEG evaluation. The patient was admitted for Exacerbation of COPD. He still tachypneic and very congested. 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) Pulmonary: Yes: COPD, O2 Dependent Renal/: Yes: Renal Inusuff Psych: Yes: Bipolar, Depression Musculoskeletal: Yes: Osteoarthritis - Past Surgical History Past Surgical History: Yes: Cholecystectomy - Alcohol/Substance Use Hx Alcohol Use: No History of Substance Use: reports: None - Smoking History Smoking history: Former smoker Have you smoked in the past 12 months: No If you are a former smoker, when did you quit?: 1998 - Social History Usual Living Arrangement: With Spouse ADL: Independent History of Recent Travel: No Home Medications - Allergies Allergies/Adverse Reactions: Allergies Allergy/AdvReac Type Severity Reaction Status Date / Time No Known Allergies Allergy Verified 04/06/19 19:02 - Home Medications Home Medications: Ambulatory Orders Budesonide/Formeterol Fumarate [SYMBICORT 160/4.5mcg -] 2 inh PO BID 02/24/17 Lisinopril 5 mg PO BID 02/25/17 Montelukast Na [Singulair -] 10 mg PO HS 02/25/17 Multivitamin [Poly-Vitamin] 1 each PO DAILY 04/28/17 Albuterol 0.083% Nebulizer [place] [Ventolin 0.083% Nebulizer Soln -] 1 neb NEB TID 04/01/18 Mirtazapine [Remeron -] 15 mg PO HS 10/29/18 Sertraline HCl 50 mg PO AM 10/29/18 Loratadine 1 tab PO DAILY 11/02/18 Carbidopa/Levodopa 25/100 [Sinemet 25/100 -] 1 each PO TID@0900,1200,1700 #30 tablet 03/04/19 Nebivolol [Bystolic -] 10 mg PO DAILY #30 tab 03/04/19 Pantoprazole Sodium [Protonix -] 20 mg PO DAILY #30 tablet.ec 03/04/19 predniSONE [Deltasone -] 10 mg PO BID 04/06/19 Physical Exam-GI Vital Signs: Vital Signs Temperature 97.6 F 04/29/19 06:00 Pulse Rate 110 H 04/29/19 06:00 Respiratory Rate 04/29/19 06:00 Blood Pressure 135/80 04/29/19 06:00 O2 Sat by Pulse Oximetry (%) 100 04/28/19 21:00 Constitutional: Yes: No Distress Eyes: Yes: Conjunctiva Clear HENT: Yes: Atraumatic Neck: Yes: Supple Cardiovascular: Yes: Regular Rate and Rhythm Respiratory: Yes: Poor Air Entry, Rhonchi ...Auscultate: Yes: Normoactive Bowel Sounds, Hypoactive Bowel Sounds ...Palpate: Yes: Soft. No: Firm/Rigid, Guarding, Hepatomegaly, Mass, Pulsatile Mass, Splenomegaly, Tenderness ...Percussion: Yes: Tympanitic Labs: CBC, BMP 04/29/19 07:15 04/29/19 07:15 INR, PTT INR 1.03 (0.83-1.09) 04/06/19 19:45 Problem List - Problems (1) Dysphagia Assessment/Plan: Failure to thrive R> swallowing evaluation if not done recently patient poor candidate for EGD with PEG, pleas consult IR for PEG insertion for failure to thrive Dr Pierre will resume care in am Code(s): R13.10 - DYSPHAGIA, UNSPECIFIED
[2019-04-29] MEDS: DRONABINOL 2.5 MG CAPSULE PO SCH (14:01)
--- NOTE | 2019-04-29 15:40 | PN ---
Progress Note (short form) - Note Progress Note: 89 year old male history of HTN,COPD, CAD. Patient came for shortness of breath and has been treated with steroid and abx, pateint has difficulty with breathing. He also have history of parkinson disease diagnosed by Dr Gardner and he is taking sinemet 1 tab ( 25/100) tid. Spoke to nursing staff, and felt there was way more tremor before increase of dose NEUROLOGICAL EXAMINATION Alert oriented x 2, neck is supple eomi, pupils reactive no face asymmetry moving all extremity there is bradykinesia and mild tremors were identified( more so on right side) sensation is normal , strength is normal Assessment/Plan 89 year old male history of HTN,COPD, CAD. He has history of PD for two yeas, and now on sinemet 25/100 two tab po tid. Plan: continue to watch on sinemet (25/100)two tab po tid patient seems to be more communicative, bright and active, advice to keep the same dose for now. continue supportive care and PT Thanking you so much Keegan Ko MD
--- NOTE | 2019-04-29 16:30 | PN ---
Progress Note (short form) - Note Progress Note: s: sob stable. no chest pain, palps, dizziness, edema. Current Medications Acetaminophen (Tylenol -) 650 mg PO Q4H PRN PRN Reason: PAIN LEVEL 1-5 Last Admin: 04/16/19 22:14 Dose: 650 mg Albuterol Sulfate (Ventolin 0.083% Nebulizer Soln -) 1 amp NEB RQ4H [facility] Last Admin: 04/29/19 11:55 Dose: 1 amp Ascorbic Acid (Vitamin C -) 500 mg PO BID [facility] Last Admin: 04/29/19 10:39 Dose: 500 mg Budesonide/Formoterol Fumarate (Symbicort 160/4.5mcg -) 2 puff IH BID [facility] Last Admin: 04/29/19 10:44 Dose: 2 puff Carbidopa/Levodopa (Sinemet 25/100 -) 2 each PO TID [facility] Last Admin: 04/29/19 14:01 Dose: 2 each Dronabinol (Marinol -) 5 mg PO DAILY@1200 [facility] Stop: 05/03/19 12:01 Last Admin: 04/29/19 14:01 Dose: 5 mg Meropenem 1 gm/ Dextrose 100 mls @ 200 mls/hr IVPB Q12H [facility] Last Admin: 04/29/19 14:01 Dose: 200 mls/hr Sodium Chloride (Normal Saline -) 1,000 mls @ 42 mls/hr IV ASDIR [facility] Last Admin: 04/29/19 10:38 Dose: 42 mls/hr Melatonin (Melatonin) 5 mg PO HS PRN PRN Reason: INSOMNIA Last Admin: 04/26/19 22:24 Dose: 5 mg Nystatin (Nystatin Oral Suspension -) 500,000 units PO Q6HPO [facility] Last Admin: 04/29/19 14:01 Dose: 500,000 units Prednisone (Deltasone -) 40 mg PO DAILY [facility] Last Admin: 04/29/19 10:39 Dose: 40 mg Sertraline HCl 50 mg/ (Sertraline HCl 25 mg) 75 mg PO DAILY [facility] Last Admin: 04/29/19 10:39 Dose: 75 mg Silver Sulfadiazine (Silvadene -) 1 applic TP BID [facility] Last Admin: 04/29/19 10:45 Dose: 1 applic Tiotropium [place] (Spiriva Respimat) 2 puff IH DAILY [facility] Last Admin: 04/29/19 10:44 Dose: 2 puff Zinc Oxide/Panthenol/Vitamin E (Balmex Cream -) 1 applic TP BID [facility] Last Admin: 04/29/19 10:45 Dose: 1 applic Vital Signs Period Temp Pulse Resp BP Sys/[place] Pulse Ox Last 24 Hr 97.4 F-98 F 104-124 18-20 113-135/64-80 100 Constitutional: Yes: Well Nourished, No Distress, Calm Cardiovascular: Yes: Regular Rate and Rhythm, S1, S2. No: JVD, Gallop, Murmur Respiratory: Yes: Regular, Rhonchi. No: Accessory Muscle Use Extremities: No: Cold Edema: No Neurological: Yes: Alert, Oriented Psychiatric: No: Agitated no jaundice diaphoresis Assessment/Plan echo 02/2019 tds, nl LV function, RV not well visualized, severe pulm HTN >60 mmHg RVSP stress echo 04/07: apical ischemia a.e. COPD, acute HFpEF, severe pulm HTN ? cor pulmonale - worsening sob, cxr w/o chf - steroids, BDs, suppl O2 per pulm - metoprolol dc'ed given prolonged, symptomatic airways dz sx's here, and EF has normalized--observe for angina sx's elevated trop: - borderline trop, flat trend, not c/w acs - EKG no ischemic changes history of stress induced CM: with mild acute on chronic diastolic CHF exacerbation in setting of increased IVF - nl EF on echo 02/2019 - cont lisinopril. hold BB, as above (? contributing to copd sx's) DORIS on CKD: - baseline creat 1.4-1.9 - renal fxn improved here PSVT/PAT: - brief runs, off tele now - cont bb CAD: - +apical ischemia 03/2018 managed medically - no angina - cont aspirin, statin. 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
--- NOTE | 2019-04-29 17:51 | PN ---
Progress Note (short form) - Note Progress Note: Renal follow up for hyponatremia Seen and examined at the bedside awake and alert feels better today has no acute complaints Vital Signs Temperature 98.3 F 04/29/19 17:29 Pulse Rate 121 H 04/29/19 17:29 Respiratory Rate 20 04/29/19 17:29 Blood Pressure 134/56 L 04/29/19 17:29 O2 Sat by Pulse Oximetry (%) 99 04/29/19 09:00 Intake & Output 04/26/19 04/27/19 04/28/19 04/29/19 23:59 23:59 23:59 23:59 Intake Total 970 1082 1234 252 Output Total 290 Balance 680 1082 1234 252 Weight 60.555 kg 56.835 kg 55.52 kg 55.656 kg NAD Course BS soft NT/ND no LE edema, clubbing or cyanosis CBC, BMP 04/29/19 07:15 04/29/19 07:15 Current Medications Acetaminophen (Tylenol -) 650 mg PO Q4H PRN PRN Reason: PAIN LEVEL 1-5 Last Admin: 04/16/19 22:14 Dose: 650 mg Albuterol Sulfate (Ventolin 0.083% Nebulizer Soln -) 1 amp NEB RQ4H [facility] Last Admin: 04/29/19 16:30 Dose: 1 amp Ascorbic Acid (Vitamin C -) 500 mg PO BID [facility] Last Admin: 04/29/19 10:39 Dose: 500 mg Budesonide/Formoterol Fumarate (Symbicort 160/4.5mcg -) 2 puff IH BID [facility] Last Admin: 04/29/19 10:44 Dose: 2 puff Carbidopa/Levodopa (Sinemet 25/100 -) 2 each PO TID [facility] Last Admin: 04/29/19 14:01 Dose: 2 each Dronabinol (Marinol -) 5 mg PO DAILY@1200 [facility] Stop: 05/03/19 12:01 Last Admin: 04/29/19 14:01 Dose: 5 mg Meropenem 1 gm/ Dextrose 100 mls @ 200 mls/hr IVPB Q12H [facility] Last Admin: 04/29/19 14:01 Dose: 200 mls/hr Sodium Chloride (Normal Saline -) 1,000 mls @ 42 mls/hr IV ASDIR [facility] Last Admin: 04/29/19 10:38 Dose: 42 mls/hr Melatonin (Melatonin) 5 mg PO HS PRN PRN Reason: INSOMNIA Last Admin: 04/26/19 22:24 Dose: 5 mg Nystatin (Nystatin Oral Suspension -) 500,000 units PO Q6HPO [facility] Last Admin: 04/29/19 14:01 Dose: 500,000 units Prednisone (Deltasone -) 40 mg PO DAILY [facility] Last Admin: 04/29/19 10:39 Dose: 40 mg Sertraline HCl 50 mg/ (Sertraline HCl 25 mg) 75 mg PO DAILY [facility] Last Admin: 04/29/19 10:39 Dose: 75 mg Silver Sulfadiazine (Silvadene -) 1 applic TP BID [facility] Last Admin: 04/29/19 10:45 Dose: 1 applic Tiotropium [place] (Spiriva Respimat) 2 puff IH DAILY [facility] Last Admin: 04/29/19 10:44 Dose: 2 puff Zinc Oxide/Panthenol/Vitamin E (Balmex Cream -) 1 applic TP BID [facility] Last Admin: 04/29/19 10:45 Dose: 1 applic 89 year old gentleman with history of COPD, Lung cancer, cardiomyopathy, CKD presented with cough and shortness of breath and noted to have worsening hyponatremia. 1. hyponatremia from poor solute intake + diuretics in setting of D5W infusion with antibiotics 2. Respiratory failure 3. Bronchitis 4. Leukocytosis sodium is now improved and stable. Cr improving, ? from fluids or discontinuation of Bactrium D/c Fluid today BUN remains high likely related to steroids CXR shows no evidence of congestion/CHF/effusions continue steroids as per pulmonary Zack Saleem DO
[2019-04-29] MEDS ORDERED: ZOLPIDEM TARTRATE 5 MG TABLET PO PRN (21:32)
[2019-04-30] MEDS: ALBUTEROL SO4 0.083% IH SOL 2.5 MG/3 ML VIAL.NEB. NEB SCH ×6 (00:25→20:42)
[2019-04-30] MEDS ORDERED: MEROPENEM 1 GM VIAL (RESTRICTED TO ID) IVPB ONE (02:17)
[2019-04-30] MEDS ORDERED: DEXTROSE 5%-WATER 100 ML IVPB ONE (02:17)
[2019-04-30] MEDS: MEROPENEM 1 GM in DEXTROSE 5%-WATER 100 ML IVPB SCH (02:24)
[2019-04-30] MEDS: NYSTATIN 500,000 UNITS/5 ML SUSPENSION PO SCH ×3 (05:35→17:41)
[2019-04-30] MEDS: CARBIDOPA/LEVODOPA 25/100 TABLET (FP) PO SCH ×3 (05:35→21:32)
[2019-04-30 07:50] LABS: BASO % 0.4 % (0-2.0); EOS % 0.3 % (0-4.5); HEMATOCRIT 31.7 % (35.4-49); HEMOGLOBIN 10.3 GM/dL (11.7-16.9); LYMPH % 5.3 % (8-40); MCH 31.9 pg (25.7-33.7); MCHC 32.5 g/dl (32.0-35.9); MEAN CELL VOLUME 98.4 fl (80-96); MEAN PLT VOLUME 7.6 fl (7.5-11.1); MONO % 3.8 % (3.8-10.2); NEUT % 90.2 % (42.8-82.8); PLATELET COUNT 121 K/MM3 (134-434); RBC 3.22 M/mm3 (4.00-5.60); RDW 16.8 % (11.9-15.9); WHITE BLOOD COUNT 14.4 K/mm3 (4.0-10.0)
[2019-04-30 08:16] LABS: BLOOD UREA NITROGEN 70.5 mg/dL (7-18); CALCIUM 8.7 mg/dL (8.5-10.1); CREATININE 1.2 mg/dL (0.55-1.3); POTASSIUM 4.2 mmol/L (3.5-5.1)
[2019-04-30] MEDS ORDERED: PT OWN MED DRAWER 7, Y5N ONE ×2 (09:03→21:42)
[2019-04-30] MEDS ORDERED: SERTRALINE HCL 25 MG TABLET (FP) ONE (09:03)
[2019-04-30] MEDS ORDERED: SERTRALINE HCL 50 MG TABLET (FP) ONE (09:03)
--- NOTE | 2019-04-30 09:12 | PN ---
Progress Note, Physician History of Present Illness: looks better than yesterday - Current Medication List Current Medications: Active Medications Acetaminophen (Tylenol -) 650 mg PO Q4H PRN PRN Reason: PAIN LEVEL 1-5 Last Admin: 04/16/19 22:14 Dose: 650 mg Albuterol Sulfate (Ventolin 0.083% Nebulizer Soln -) 1 amp NEB RQ4H [facility] Last Admin: 04/30/19 08:10 Dose: 1 amp Ascorbic Acid (Vitamin C -) 500 mg PO BID [facility] Last Admin: 04/29/19 21:54 Dose: 500 mg Budesonide/Formoterol Fumarate (Symbicort 160/4.5mcg -) 2 puff IH BID [facility] Last Admin: 04/29/19 21:54 Dose: 2 puff Carbidopa/Levodopa (Sinemet 25/100 -) 2 each PO TID [facility] Last Admin: 04/30/19 05:35 Dose: 2 each Dronabinol (Marinol -) 5 mg PO DAILY@1200 [facility] Stop: 05/03/19 12:01 Last Admin: 04/29/19 14:01 Dose: 5 mg Sodium Chloride (Normal Saline -) 1,000 mls @ 42 mls/hr IV ASDIR [facility] Last Admin: 04/29/19 18:10 Dose: Not Given Melatonin (Melatonin) 5 mg PO HS PRN PRN Reason: INSOMNIA Last Admin: 04/26/19 22:24 Dose: 5 mg Nystatin (Nystatin Oral Suspension -) 500,000 units PO Q6HPO [facility] Last Admin: 04/30/19 05:35 Dose: 500,000 units Prednisone (Deltasone -) 40 mg PO DAILY [facility] Last Admin: 04/29/19 10:39 Dose: 40 mg Sertraline HCl 50 mg/ (Sertraline HCl 25 mg) 75 mg PO DAILY [facility] Last Admin: 04/29/19 10:39 Dose: 75 mg Silver Sulfadiazine (Silvadene -) 1 applic TP BID [facility] Last Admin: 04/29/19 21:55 Dose: 1 applic Tiotropium [place] (Spiriva Respimat) 2 puff IH DAILY [facility] Last Admin: 04/29/19 10:44 Dose: 2 puff Zinc Oxide/Panthenol/Vitamin E (Balmex Cream -) 1 applic TP BID [facility] Last Admin: 04/29/19 21:56 Dose: 1 applic Zolpidem Tartrate (Ambien -) 5 mg PO HS PRN PRN Reason: INSOMNIA Stop: 05/06/19 21:31 - Objective Vital Signs: Vital Signs Temperature 97.7 F 04/30/19 06:10 Pulse Rate 100 H 04/30/19 06:10 Respiratory Rate 18 04/30/19 06:10 Blood Pressure 117/63 04/30/19 06:10 O2 Sat by Pulse Oximetry (%) 100 04/29/19 21:00 Constitutional: Yes: No Distress, Calm Cardiovascular: Yes: S1, S2 Respiratory: Yes: Regular, On Nasal O2, Rhonchi Gastrointestinal: Yes: Normal Bowel Sounds, Soft Musculoskeletal: Yes: WNL Extremities: Yes: WNL Neurological: Yes: Alert, Oriented Psychiatric: Yes: Alert, Oriented Labs: CBC, BMP 04/30/19 06:38 04/30/19 06:38 INR, PTT INR 1.03 (0.83-1.09) 04/06/19 19:45 Assessment/Plan Problem List - Problems (1) Pulmonary hypertension Code(s): I27.20 - PULMONARY HYPERTENSION, UNSPECIFIED (2) GERD (gastroesophageal reflux disease) Code(s): K21.9 - GASTRO-ESOPHAGEAL REFLUX DISEASE WITHOUT ESOPHAGITIS (3) Acute diastolic (congestive) heart failure Code(s): I50.31 - ACUTE DIASTOLIC (CONGESTIVE) HEART FAILURE (4) Acute exacerbation of chronic obstructive pulmonary disease Code(s): J44.1 - CHRONIC OBSTRUCTIVE PULMONARY DISEASE W (ACUTE) EXACERBATION (5) Acute hypoxemic respiratory failure Code(s): J96.01 - ACUTE RESPIRATORY FAILURE WITH HYPOXIA (6) Bipolar 1 disorder Code(s): F31.9 - BIPOLAR DISORDER, UNSPECIFIED (7) Bronchiectasis Code(s): J47.9 - BRONCHIECTASIS, UNCOMPLICATED (8) CHF (congestive heart failure), NYHA class II Code(s): I50.9 - HEART FAILURE, UNSPECIFIED (9) Chronic kidney disease (CKD) Code(s): N18.9 - CHRONIC KIDNEY DISEASE, UNSPECIFIED (10) Elevated troponin Code(s): R74.8 - ABNORMAL LEVELS OF OTHER SERUM ENZYMES (11) Emphysema of lung Code(s): J43.9 - EMPHYSEMA, UNSPECIFIED (12) Hypotension Code(s): I95.9 - HYPOTENSION, UNSPECIFIED (13) HTN (hypertension) Code(s): I10 - ESSENTIAL (PRIMARY) HYPERTENSION (14) Insomnia disorder Code(s): G47.00 - INSOMNIA, UNSPECIFIED plan continue abx will stop abx monitor rest as per the team nutrition
--- NOTE | 2019-04-30 09:18 | PN ---
Progress Note (short form) - Note Progress Note: PULMONARY Feels generalized weakness and fatigue and [place]. VSS/AFEBRILE Gen: Mildly tachypneic at rest on NC O2 Heart: RRR Lung: scattered bilateral rhonchi, no wheeze Abd: soft, nontender Ext: no edema - Problems (1) COPD exacerbation Code(s): J44.1 - CHRONIC OBSTRUCTIVE PULMONARY DISEASE W (ACUTE) EXACERBATION A/P Acute COPD Exacerbation Chronic Hypoxic Respiratory Failure Severe Pulmonary HTN CAD HTN - ABX per ID - Inhaled bronchodilators - Symbicort - O2 to keep SpO2 >90% - DVT prophylaxis - Noted Medrol: change to Prednisone Brittani VIDALES MD
[2019-04-30] MEDS: ZINC OXIDE/PANTHENOL/VITAMIN E 56 GM TUBE TP SCH ×2 (09:56→21:32)
[2019-04-30] MEDS: SILVER SULFADIAZINE 1% TOP CREAM 50 GM JAR TP SCH ×2 (09:56→21:42)
[2019-04-30] MEDS: BUDESONIDE/FORMETEROL FUMARATE 160/4.5 mcg INHALER IH SCH ×2 (09:56→21:32)
[2019-04-30] MEDS: TIOTROPIUM BROMIDE 2.5 MCG (SPIRIVA) RESPIMAT INHALER IH SCH (09:56)
[2019-04-30] MEDS: ASCORBIC ACID 500 MG TABLET (FP) PO SCH ×2 (09:57→21:32)
[2019-04-30] MEDS: predniSONE 20 MG TABLET (UD) PO SCH (09:57)
[2019-04-30] MEDS: SERTRALINE HCL 50 MG, SERTRALINE HCL 25 MG PO SCH (09:57)
--- NOTE | 2019-04-30 10:02 | PN ---
Progress Note (short form) - Note Progress Note: 89 year old male history of HTN,COPD, CAD. Patient came for shortness of breath and has been treated with steroid and abx, pateint has difficulty with breathing. He also have history of parkinson disease diagnosed by Dr Gardner and he is taking sinemet 1 tab ( 25/100) tid. stable no new symptoms,considering peg tube placement NEUROLOGICAL EXAMINATION Alert oriented x 2, neck is supple eomi, pupils reactive no face asymmetry moving all extremity there is bradykinesia and mild tremors were identified( more so on right side) sensation is normal , strength is normal Assessment/Plan 89 year old male history of HTN,COPD, CAD. He has history of PD for two yeas, and now on sinemet 25/100 two tab po tid. Plan: continue to watch on sinemet (25/100)two tab po tid patient seems to be more communicative, bright and active, advice to keep the same dose for now. supportive care Thanking you so much Keegan Ko MD
[2019-04-30] MEDS: DRONABINOL 2.5 MG CAPSULE PO SCH (11:38)
[2019-04-30 12:28] LABS: ANISOCYTOSIS 0; MACROCYTOSIS 0; PLATELET ESTIMATE DECREASED
--- NOTE | 2019-04-30 14:44 | PN ---
Progress Note (short form) - Note Progress Note: s: still sob, no chest pain, palps, dizziness, edema. Current Medications Generic Name Dose Route Start Last Admin Trade Name Freq PRN Reason Stop Dose Admin Acetaminophen 650 mg 04/07/19 00:02 04/16/19 22:14 Tylenol - PO 650 mg Q4H PRN Administration PAIN LEVEL 1-5 Albuterol Sulfate 1 amp 04/23/19 16:00 04/30/19 12:00 Ventolin 0.083% Nebulizer Soln - NEB 1 amp RQ4H [facility] Administration Ascorbic Acid 500 mg 04/07/19 22:00 04/30/19 09:57 Vitamin C - PO 500 mg BID [facility] Administration Budesonide/Formoterol Fumarate 2 puff 04/08/19 13:30 04/30/19 09:56 Symbicort 160/4.5mcg - IH 2 puff BID [facility] Administration Carbidopa/Levodopa 2 each 04/26/19 14:15 04/30/19 14:17 Sinemet 25/100 - PO 2 each TID [facility] Administration Dronabinol 5 mg 04/27/19 22:00 04/30/19 11:38 Marinol - PO 05/03/19 12:01 5 mg DAILY@1200 [facility] Administration Sodium Chloride 1,000 mls @ 42 mls/hr 04/28/19 15:45 04/29/19 18:10 Normal Saline - IV Not Given ASDIR [facility] Melatonin 5 mg 04/17/19 04:26 04/26/19 22:24 Melatonin PO 5 mg HS PRN Administration INSOMNIA Nystatin 500,000 units 04/19/19 12:00 04/30/19 11:38 Nystatin Oral Suspension - PO 500,000 units Q6HPO [facility] Administration Prednisone 40 mg 04/29/19 10:00 04/30/19 09:57 Deltasone - PO 40 mg DAILY [facility] Administration Sertraline HCl 50 mg/ 75 mg 04/16/19 10:00 04/30/19 09:57 Sertraline HCl 25 mg PO 75 mg DAILY [facility] Administration Silver Sulfadiazine 1 applic 04/07/19 22:00 04/30/19 09:56 Silvadene - TP 1 applic BID [facility] Administration Tiotropium [place] 2 puff 04/13/19 10:30 04/30/19 09:56 Spiriva Respimat IH 2 puff DAILY [facility] Administration Zinc Oxide/Panthenol/Vitamin E 1 applic 04/07/19 22:00 04/30/19 09:56 Balmex Cream - TP 1 applic BID [facility] Administration Zolpidem Tartrate 5 mg 04/29/19 21:32 Ambien - PO 05/06/19 21:31 HS PRN INSOMNIA Vital Signs Period Temp Pulse Resp BP Sys/[place] Pulse Ox Last 24 Hr 97.3 F-98.6 F 100-121 18-20 100-134/50-63 98-100 Constitutional: Yes: Well Nourished, No Distress, Calm Cardiovascular: Yes: Regular Rate and Rhythm, S1, S2. No: JVD, Gallop, Murmur Respiratory: Yes: Regular, Rhonchi. No: Accessory Muscle Use Extremities: No: Cold Edema: No Neurological: Yes: Alert, Oriented Psychiatric: No: Agitated no jaundice diaphoresis CBC, BMP 04/30/19 06:38 04/30/19 06:38 Assessment/Plan echo 02/2019 tds, nl LV function, RV not well visualized, severe pulm HTN >60 mmHg RVSP stress echo 04/07: apical ischemia a.e. COPD, acute HFpEF, severe pulm HTN ? cor pulmonale - worsening sob, cxr w/o chf - steroids, BDs, suppl O2 per pulm - metoprolol dc'ed given prolonged, symptomatic airways dz sx's here, and EF has normalized elevated trop: - borderline trop, flat trend, not c/w acs - EKG no ischemic changes history of stress induced CM: with mild acute on chronic diastolic CHF exacerbation in setting of increased IVF - nl EF on echo 02/2019 - cont lisinopril. hold BB, as above (? contributing to copd sx's) DORIS on CKD: - baseline creat 1.4-1.9 - renal fxn improved here PSVT/PAT: - brief runs, off tele now - cont bb CAD: - +apical ischemia 03/2018 managed medically - no angina - cont aspirin, statin. 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
--- NOTE | 2019-04-30 16:04 | PN ---
Progress Note (short form) - Note Progress Note: Renal follow up for hyponatremia Seen and examined at the bedside awake and alert feels short of breath today no chest pain, abdominal pain, fever or chills Vital Signs Temperature 97.8 F 04/30/19 09:54 Pulse Rate 114 H 04/30/19 09:54 Respiratory Rate 20 04/30/19 09:54 Blood Pressure 100/50 L 04/30/19 09:54 O2 Sat by Pulse Oximetry (%) 98 04/30/19 09:00 Intake & Output 04/27/19 04/28/19 04/29/19 04/30/19 23:59 23:59 23:59 23:59 Intake Total 1082 1234 1254 588 Balance 1082 1234 1254 588 Weight 56.835 kg 55.52 kg 55.656 kg 62.006 kg NAD Course BS soft NT/ND no LE edema, clubbing or cyanosis CBC, BMP 04/30/19 06:38 04/30/19 06:38 Current Medications Acetaminophen (Tylenol -) 650 mg PO Q4H PRN PRN Reason: PAIN LEVEL 1-5 Last Admin: 04/16/19 22:14 Dose: 650 mg Albuterol Sulfate (Ventolin 0.083% Nebulizer Soln -) 1 amp NEB RQ4H [facility] Last Admin: 04/30/19 15:10 Dose: 1 amp Ascorbic Acid (Vitamin C -) 500 mg PO BID [facility] Last Admin: 04/30/19 09:57 Dose: 500 mg Budesonide/Formoterol Fumarate (Symbicort 160/4.5mcg -) 2 puff IH BID [facility] Last Admin: 04/30/19 09:56 Dose: 2 puff Carbidopa/Levodopa (Sinemet 25/100 -) 2 each PO TID [facility] Last Admin: 04/30/19 14:17 Dose: 2 each Dronabinol (Marinol -) 5 mg PO DAILY@1200 [facility] Stop: 05/03/19 12:01 Last Admin: 04/30/19 11:38 Dose: 5 mg Sodium Chloride (Normal Saline -) 1,000 mls @ 42 mls/hr IV ASDIR [facility] Last Admin: 04/29/19 18:10 Dose: Not Given Melatonin (Melatonin) 5 mg PO HS PRN PRN Reason: INSOMNIA Last Admin: 04/26/19 22:24 Dose: 5 mg Nystatin (Nystatin Oral Suspension -) 500,000 units PO Q6HPO [facility] Last Admin: 04/30/19 11:38 Dose: 500,000 units Prednisone (Deltasone -) 40 mg PO DAILY [facility] Last Admin: 04/30/19 09:57 Dose: 40 mg Sertraline HCl 50 mg/ (Sertraline HCl 25 mg) 75 mg PO DAILY [facility] Last Admin: 04/30/19 09:57 Dose: 75 mg Silver Sulfadiazine (Silvadene -) 1 applic TP BID [facility] Last Admin: 04/30/19 09:56 Dose: 1 applic Tiotropium [place] (Spiriva Respimat) 2 puff IH DAILY [facility] Last Admin: 04/30/19 09:56 Dose: 2 puff Zinc Oxide/Panthenol/Vitamin E (Balmex Cream -) 1 applic TP BID [facility] Last Admin: 04/30/19 09:56 Dose: 1 applic Zolpidem Tartrate (Ambien -) 5 mg PO HS PRN PRN Reason: INSOMNIA Stop: 05/06/19 21:31 89 year old gentleman with history of COPD, Lung cancer, cardiomyopathy, CKD presented with cough and shortness of breath and noted to have worsening hyponatremia. 1. hyponatremia from poor solute intake + diuretics in setting of D5W infusion with antibiotics 2. Respiratory failure 3. Bronchitis 4. Leukocytosis Serum Na slightly elevated likely from poor water intake give D5W x 24 hours Renal function improved, suspect that rise in Cr was due to bactrium BUN remains high likely related to steroids CXR shows no evidence of congestion/CHF/effusions continue steroids as per pulmonary Zack Saleem DO
[2019-04-30] MEDS ORDERED: DEXTROSE 5%-WATER - 1,000 ML IV SCH (16:15)
--- NOTE | 2019-04-30 20:56 | PN ---
Progress Note, Physician - Current Medication List Current Medications: Active Medications Acetaminophen (Tylenol -) 650 mg PO Q4H PRN PRN Reason: PAIN LEVEL 1-5 Last Admin: 04/16/19 22:14 Dose: 650 mg Albuterol Sulfate (Ventolin 0.083% Nebulizer Soln -) 1 amp NEB RQ4H [facility] Last Admin: 04/30/19 20:42 Dose: 1 amp Ascorbic Acid (Vitamin C -) 500 mg PO BID [facility] Last Admin: 04/30/19 09:57 Dose: 500 mg Budesonide/Formoterol Fumarate (Symbicort 160/4.5mcg -) 2 puff IH BID [facility] Last Admin: 04/30/19 09:56 Dose: 2 puff Carbidopa/Levodopa (Sinemet 25/100 -) 2 each PO TID [facility] Last Admin: 04/30/19 14:17 Dose: 2 each Dronabinol (Marinol -) 5 mg PO DAILY@1200 [facility] Stop: 05/03/19 12:01 Last Admin: 04/30/19 11:38 Dose: 5 mg Dextrose (D5w -) 1,000 mls @ 50 mls/hr IV ASDIR [facility] Stop: 05/01/19 12:00 Last Admin: 04/30/19 16:35 Dose: 50 mls/hr Melatonin (Melatonin) 5 mg PO HS PRN PRN Reason: INSOMNIA Last Admin: 04/26/19 22:24 Dose: 5 mg Nystatin (Nystatin Oral Suspension -) 500,000 units PO Q6HPO [facility] Last Admin: 04/30/19 17:41 Dose: 500,000 units Prednisone (Deltasone -) 40 mg PO DAILY [facility] Last Admin: 04/30/19 09:57 Dose: 40 mg Sertraline HCl 50 mg/ (Sertraline HCl 25 mg) 75 mg PO DAILY [facility] Last Admin: 04/30/19 09:57 Dose: 75 mg Silver Sulfadiazine (Silvadene -) 1 applic TP BID [facility] Last Admin: 04/30/19 09:56 Dose: 1 applic Tiotropium [place] (Spiriva Respimat) 2 puff IH DAILY [facility] Last Admin: 04/30/19 09:56 Dose: 2 puff Zinc Oxide/Panthenol/Vitamin E (Balmex Cream -) 1 applic TP BID [facility] Last Admin: 04/30/19 09:56 Dose: 1 applic Zolpidem Tartrate (Ambien -) 5 mg PO HS PRN PRN Reason: INSOMNIA Stop: 05/06/19 21:31 - Objective Vital Signs: Vital Signs Temperature 98 F 04/30/19 17:34 Pulse Rate 114 H 04/30/19 17:34 Respiratory Rate 20 04/30/19 17:34 Blood Pressure 117/66 04/30/19 17:34 O2 Sat by Pulse Oximetry (%) 98 04/30/19 09:00 Labs: CBC, BMP 04/30/19 06:38 04/30/19 06:38 INR, PTT INR 1.03 (0.83-1.09) 04/06/19 19:45 Problem List - Problems (1) Pulmonary hypertension Code(s): I27.20 - PULMONARY HYPERTENSION, UNSPECIFIED (2) GERD (gastroesophageal reflux disease) Code(s): K21.9 - GASTRO-ESOPHAGEAL REFLUX DISEASE WITHOUT ESOPHAGITIS (3) Acute diastolic (congestive) heart failure Code(s): I50.31 - ACUTE DIASTOLIC (CONGESTIVE) HEART FAILURE (4) Acute exacerbation of chronic obstructive pulmonary disease Code(s): J44.1 - CHRONIC OBSTRUCTIVE PULMONARY DISEASE W (ACUTE) EXACERBATION (5) Acute hypoxemic respiratory failure Code(s): J96.01 - ACUTE RESPIRATORY FAILURE WITH HYPOXIA (6) Bipolar 1 disorder Code(s): F31.9 - BIPOLAR DISORDER, UNSPECIFIED (7) Bronchiectasis Code(s): J47.9 - BRONCHIECTASIS, UNCOMPLICATED (8) CHF (congestive heart failure), NYHA class II Code(s): I50.9 - HEART FAILURE, UNSPECIFIED (9) Chronic kidney disease (CKD) Code(s): N18.9 - CHRONIC KIDNEY DISEASE, UNSPECIFIED (10) Elevated troponin Code(s): R74.8 - ABNORMAL LEVELS OF OTHER SERUM ENZYMES (11) Emphysema of lung Code(s): J43.9 - EMPHYSEMA, UNSPECIFIED (12) Hypotension Code(s): I95.9 - HYPOTENSION, UNSPECIFIED (13) HTN (hypertension) Code(s): I10 - ESSENTIAL (PRIMARY) HYPERTENSION (14) Insomnia disorder Code(s): G47.00 - INSOMNIA, UNSPECIFIED
[2019-05-01] MEDS: NYSTATIN 500,000 UNITS/5 ML SUSPENSION PO SCH ×4 (00:06→17:44)
[2019-05-01] MEDS: ALBUTEROL SO4 0.083% IH SOL 2.5 MG/3 ML VIAL.NEB. NEB SCH ×6 (00:32→20:50)
[2019-05-01] MEDS: CARBIDOPA/LEVODOPA 25/100 TABLET (FP) PO SCH ×3 (06:07→21:29)
[2019-05-01 07:45] LABS: BASO % 0.8 % (0-2.0); EOS % 0.5 % (0-4.5); HEMATOCRIT 32.4 % (35.4-49); HEMOGLOBIN 10.6 GM/dL (11.7-16.9); LYMPH % 5.7 % (8-40); MCH 32.4 pg (25.7-33.7); MCHC 32.7 g/dl (32.0-35.9); MEAN PLT VOLUME 8.1 fl (7.5-11.1); MONO % 3.4 % (3.8-10.2); NEUT % 89.6 % (42.8-82.8); PLATELET COUNT 118 K/MM3 (134-434); RBC 3.28 M/mm3 (4.00-5.60); RDW 16.1 % (11.9-15.9); WHITE BLOOD COUNT 14.2 K/mm3 (4.0-10.0)
[2019-05-01 08:18] LABS: BLOOD UREA NITROGEN 61.2 mg/dL (7-18); CALCIUM 8.7 mg/dL (8.5-10.1); CREATININE 0.8 mg/dL (0.55-1.3)
--- NOTE | 2019-05-01 09:58 | PN ---
Progress Note, Physician History of Present Illness: patient still very fatigued failure to thrive - Current Medication List Current Medications: Active Medications Acetaminophen (Tylenol -) 650 mg PO Q4H PRN PRN Reason: PAIN LEVEL 1-5 Last Admin: 04/16/19 22:14 Dose: 650 mg Albuterol Sulfate (Ventolin 0.083% Nebulizer Soln -) 1 amp NEB RQ4H [facility] Last Admin: 05/01/19 07:44 Dose: 1 amp Ascorbic Acid (Vitamin C -) 500 mg PO BID [facility] Last Admin: 04/30/19 21:32 Dose: 500 mg Budesonide/Formoterol Fumarate (Symbicort 160/4.5mcg -) 2 puff IH BID [facility] Last Admin: 04/30/19 21:32 Dose: 2 puff Carbidopa/Levodopa (Sinemet 25/100 -) 2 each PO TID [facility] Last Admin: 05/01/19 06:07 Dose: 2 each Dronabinol (Marinol -) 5 mg PO DAILY@1200 [facility] Stop: 05/03/19 12:01 Last Admin: 04/30/19 11:38 Dose: 5 mg Dextrose (D5w -) 1,000 mls @ 50 mls/hr IV ASDIR [facility] Stop: 05/01/19 12:00 Last Admin: 04/30/19 16:35 Dose: 50 mls/hr Melatonin (Melatonin) 5 mg PO HS PRN PRN Reason: INSOMNIA Last Admin: 04/26/19 22:24 Dose: 5 mg Nystatin (Nystatin Oral Suspension -) 500,000 units PO Q6HPO [facility] Last Admin: 05/01/19 06:07 Dose: 500,000 units Prednisone (Deltasone -) 40 mg PO DAILY [facility] Last Admin: 04/30/19 09:57 Dose: 40 mg Sertraline HCl 50 mg/ (Sertraline HCl 25 mg) 75 mg PO DAILY [facility] Last Admin: 04/30/19 09:57 Dose: 75 mg Silver Sulfadiazine (Silvadene -) 1 applic TP BID [facility] Last Admin: 04/30/19 21:42 Dose: 1 applic Tiotropium [place] (Spiriva Respimat) 2 puff IH DAILY [facility] Last Admin: 04/30/19 09:56 Dose: 2 puff Zinc Oxide/Panthenol/Vitamin E (Balmex Cream -) 1 applic TP BID [facility] Last Admin: 04/30/19 21:32 Dose: 1 applic Zolpidem Tartrate (Ambien -) 5 mg PO HS PRN PRN Reason: INSOMNIA Stop: 05/06/19 21:31 - Objective Vital Signs: Vital Signs Temperature 98 F 05/01/19 05:00 Pulse Rate 102 H 05/01/19 05:00 Respiratory Rate 20 05/01/19 05:00 Blood Pressure 109/59 L 05/01/19 05:00 O2 Sat by Pulse Oximetry (%) 95 04/30/19 21:00 Constitutional: Yes: Calm, Mild Distress Cardiovascular: Yes: S1, S2 Respiratory: Yes: On Nasal O2, Poor Air Entry, Rhonchi Gastrointestinal: Yes: Normal Bowel Sounds, Soft Musculoskeletal: Yes: WNL Extremities: Yes: WNL Neurological: Yes: Alert, Oriented Psychiatric: Yes: Alert, Oriented Labs: CBC, BMP 05/01/19 05:50 05/01/19 05:50 INR, PTT INR 1.03 (0.83-1.09) 04/06/19 19:45 Assessment/Plan Problem List - Problems (1) Pulmonary hypertension Code(s): I27.20 - PULMONARY HYPERTENSION, UNSPECIFIED (2) GERD (gastroesophageal reflux disease) Code(s): K21.9 - GASTRO-ESOPHAGEAL REFLUX DISEASE WITHOUT ESOPHAGITIS (3) Acute diastolic (congestive) heart failure Code(s): I50.31 - ACUTE DIASTOLIC (CONGESTIVE) HEART FAILURE (4) Acute exacerbation of chronic obstructive pulmonary disease Code(s): J44.1 - CHRONIC OBSTRUCTIVE PULMONARY DISEASE W (ACUTE) EXACERBATION (5) Acute hypoxemic respiratory failure Code(s): J96.01 - ACUTE RESPIRATORY FAILURE WITH HYPOXIA (6) Bipolar 1 disorder Code(s): F31.9 - BIPOLAR DISORDER, UNSPECIFIED (7) Bronchiectasis Code(s): J47.9 - BRONCHIECTASIS, UNCOMPLICATED (8) CHF (congestive heart failure), NYHA class II Code(s): I50.9 - HEART FAILURE, UNSPECIFIED (9) Chronic kidney disease (CKD) Code(s): N18.9 - CHRONIC KIDNEY DISEASE, UNSPECIFIED (10) Elevated troponin Code(s): R74.8 - ABNORMAL LEVELS OF OTHER SERUM ENZYMES (11) Emphysema of lung Code(s): J43.9 - EMPHYSEMA, UNSPECIFIED (12) Hypotension Code(s): I95.9 - HYPOTENSION, UNSPECIFIED (13) HTN (hypertension) Code(s): I10 - ESSENTIAL (PRIMARY) HYPERTENSION (14) Insomnia disorder Code(s): G47.00 - INSOMNIA, UNSPECIFIED plan continue to monitor nutrition avoid fluid overload resp support
[2019-05-01] MEDS ORDERED: SERTRALINE HCL 50 MG TABLET (FP) ONE (10:19)
[2019-05-01] MEDS ORDERED: SERTRALINE HCL 25 MG TABLET (FP) ONE (10:19)
[2019-05-01] MEDS: ASCORBIC ACID 500 MG TABLET (FP) PO SCH ×2 (10:22→21:29)
[2019-05-01] MEDS: SERTRALINE HCL 50 MG, SERTRALINE HCL 25 MG PO SCH (10:22)
[2019-05-01] MEDS: predniSONE 20 MG TABLET (UD) PO SCH (10:23)
[2019-05-01] MEDS: ZINC OXIDE/PANTHENOL/VITAMIN E 56 GM TUBE TP SCH ×2 (10:24→21:33)
[2019-05-01] MEDS: SILVER SULFADIAZINE 1% TOP CREAM 50 GM JAR TP SCH ×2 (10:24→21:31)
[2019-05-01] MEDS: BUDESONIDE/FORMETEROL FUMARATE 160/4.5 mcg INHALER IH SCH ×2 (10:24→21:31)
[2019-05-01] MEDS: TIOTROPIUM BROMIDE 2.5 MCG (SPIRIVA) RESPIMAT INHALER IH SCH (10:25)
[2019-05-01 10:40] LABS: ANISOCYTOSIS 1+; MACROCYTOSIS 1+; PLATELET ESTIMATE DECREASED
[2019-05-01] MEDS: DRONABINOL 2.5 MG CAPSULE PO SCH (12:01)
--- NOTE | 2019-05-01 19:46 | PN ---
Progress Note, Physician History of Present Illness: Pt is better than Yesterday Pt is not eating Calorie count spoke with dietary Pureed diet swallowing eval - Current Medication List Current Medications: Active Medications Acetaminophen (Tylenol -) 650 mg PO Q4H PRN PRN Reason: PAIN LEVEL 1-5 Last Admin: 04/16/19 22:14 Dose: 650 mg Albuterol Sulfate (Ventolin 0.083% Nebulizer Soln -) 1 amp NEB RQ4H [facility] Last Admin: 05/01/19 16:00 Dose: 1 amp Ascorbic Acid (Vitamin C -) 500 mg PO BID [facility] Last Admin: 05/01/19 10:22 Dose: 500 mg Budesonide/Formoterol Fumarate (Symbicort 160/4.5mcg -) 2 puff IH BID [facility] Last Admin: 05/01/19 10:24 Dose: 2 puff Carbidopa/Levodopa (Sinemet 25/100 -) 2 each PO TID [facility] Last Admin: 05/01/19 13:05 Dose: 2 each Dronabinol (Marinol -) 5 mg PO DAILY@1200 [facility] Stop: 05/03/19 12:01 Last Admin: 05/01/19 12:01 Dose: 5 mg Melatonin (Melatonin) 5 mg PO HS PRN PRN Reason: INSOMNIA Last Admin: 04/26/19 22:24 Dose: 5 mg Nystatin (Nystatin Oral Suspension -) 500,000 units PO Q6HPO [facility] Last Admin: 05/01/19 17:44 Dose: 500,000 units Prednisone (Deltasone -) 40 mg PO DAILY [facility] Last Admin: 05/01/19 10:23 Dose: 40 mg Sertraline HCl 50 mg/ (Sertraline HCl 25 mg) 75 mg PO DAILY [facility] Last Admin: 05/01/19 10:22 Dose: 75 mg Silver Sulfadiazine (Silvadene -) 1 applic TP BID [facility] Last Admin: 05/01/19 10:24 Dose: 1 applic Tiotropium [place] (Spiriva Respimat) 2 puff IH DAILY [facility] Last Admin: 05/01/19 10:25 Dose: 2 puff Zinc Oxide/Panthenol/Vitamin E (Balmex Cream -) 1 applic TP BID [facility] Last Admin: 05/01/19 10:24 Dose: 1 applic Zolpidem Tartrate (Ambien -) 5 mg PO HS PRN PRN Reason: INSOMNIA Stop: 05/06/19 21:31 - Objective Vital Signs: Vital Signs Temperature 97.6 F 05/01/19 17:41 Pulse Rate 114 H 05/01/19 17:41 Respiratory Rate 05/01/19 17:41 Blood Pressure 111/65 05/01/19 17:41 O2 Sat by Pulse Oximetry (%) 95 05/01/19 09:00 Constitutional: Yes: Anxious Eyes: Yes: Conjunctiva Clear, EOM Intact HENT: Yes: Atraumatic, Normocephalic Neck: Yes: Supple, Trachea Midline Cardiovascular: Yes: Regular Rate and Rhythm, S1, S2 Respiratory: Yes: Regular, CTA Bilaterally, Accessory Muscle Use, SOB on Exertion, Tachypnea Gastrointestinal: Yes: Normal Bowel Sounds, Soft Musculoskeletal: Yes: Joint Stiffness Extremities: Yes: Other (Multiple Echymotic areas) Edema: No Labs: CBC, BMP 05/01/19 05:50 05/01/19 05:50 INR, PTT INR 1.03 (0.83-1.09) 04/06/19 19:45 Problem List - Problems (1) Pulmonary hypertension Code(s): I27.20 - PULMONARY HYPERTENSION, UNSPECIFIED (2) GERD (gastroesophageal reflux disease) Code(s): K21.9 - GASTRO-ESOPHAGEAL REFLUX DISEASE WITHOUT ESOPHAGITIS (3) Acute diastolic (congestive) heart failure Code(s): I50.31 - ACUTE DIASTOLIC (CONGESTIVE) HEART FAILURE (4) Acute exacerbation of chronic obstructive pulmonary disease Code(s): J44.1 - CHRONIC OBSTRUCTIVE PULMONARY DISEASE W (ACUTE) EXACERBATION (5) Acute hypoxemic respiratory failure Code(s): J96.01 - ACUTE RESPIRATORY FAILURE WITH HYPOXIA (6) Bipolar 1 disorder Code(s): F31.9 - BIPOLAR DISORDER, UNSPECIFIED (7) Bronchiectasis Code(s): J47.9 - BRONCHIECTASIS, UNCOMPLICATED (8) CHF (congestive heart failure), NYHA class II Code(s): I50.9 - HEART FAILURE, UNSPECIFIED (9) Chronic kidney disease (CKD) Code(s): N18.9 - CHRONIC KIDNEY DISEASE, UNSPECIFIED (10) Elevated troponin Code(s): R74.8 - ABNORMAL LEVELS OF OTHER SERUM ENZYMES (11) Emphysema of lung Code(s): J43.9 - EMPHYSEMA, UNSPECIFIED (12) Hypotension Code(s): I95.9 - HYPOTENSION, UNSPECIFIED (13) HTN (hypertension) Code(s): I10 - ESSENTIAL (PRIMARY) HYPERTENSION (14) Insomnia disorder Code(s): G47.00 - INSOMNIA, UNSPECIFIED Assessment/Plan (1) Pulmonary hypertension Code(s): I27.20 - PULMONARY HYPERTENSION, UNSPECIFIED (2) GERD (gastroesophageal reflux disease) Code(s): K21.9 - GASTRO-ESOPHAGEAL REFLUX DISEASE WITHOUT ESOPHAGITIS (3) Acute diastolic (congestive) heart failure Code(s): I50.31 - ACUTE DIASTOLIC (CONGESTIVE) HEART FAILURE (4) Acute exacerbation of chronic obstructive pulmonary disease Code(s): J44.1 - CHRONIC OBSTRUCTIVE PULMONARY DISEASE W (ACUTE) EXACERBATION (5) Acute hypoxemic respiratory failure Code(s): J96.01 - ACUTE RESPIRATORY FAILURE WITH HYPOXIA (6) Bipolar 1 disorder Code(s): F31.9 - BIPOLAR DISORDER, UNSPECIFIED (7) Bronchiectasis Code(s): J47.9 - BRONCHIECTASIS, UNCOMPLICATED (8) CHF (congestive heart failure), NYHA class II Code(s): I50.9 - HEART FAILURE, UNSPECIFIED (9) Chronic kidney disease (CKD) Code(s): N18.9 - CHRONIC KIDNEY DISEASE, UNSPECIFIED (10) Elevated troponin Code(s): R74.8 - ABNORMAL LEVELS OF OTHER SERUM ENZYMES (11) Emphysema of lung Code(s): J43.9 - EMPHYSEMA, UNSPECIFIED (12) Hypotension Code(s): I95.9 - HYPOTENSION, UNSPECIFIED (13) HTN (hypertension) Code(s): I10 - ESSENTIAL (PRIMARY) HYPERTENSION (14) Insomnia disorder Code(s): G47.00 - INSOMNIA, UNSPECIFIED Pt is critically ill not improving WBC getting better but ID Dced Antibiotics Left Message we will FU Tremors better to continue antibiotics steroids calorie count
[2019-05-02] MEDS: ALBUTEROL SO4 0.083% IH SOL 2.5 MG/3 ML VIAL.NEB. NEB SCH ×6 (00:02→20:29)
[2019-05-02] MEDS: NYSTATIN 500,000 UNITS/5 ML SUSPENSION PO SCH ×4 (00:14→17:15)
[2019-05-02] MEDS: CARBIDOPA/LEVODOPA 25/100 TABLET (FP) PO SCH ×3 (06:10→22:39)
[2019-05-02] MEDS ORDERED: SERTRALINE HCL 25 MG TABLET (FP) ONE (08:50)
[2019-05-02] MEDS ORDERED: SERTRALINE HCL 50 MG TABLET (FP) ONE (08:50)
[2019-05-02] MEDS: ZINC OXIDE/PANTHENOL/VITAMIN E 56 GM TUBE TP SCH ×2 (09:46→22:41)
[2019-05-02] MEDS: predniSONE 20 MG TABLET (UD) PO SCH (09:47)
[2019-05-02] MEDS: SERTRALINE HCL 50 MG, SERTRALINE HCL 25 MG PO SCH (09:47)
[2019-05-02] MEDS: ASCORBIC ACID 500 MG TABLET (FP) PO SCH ×2 (09:48→22:39)
[2019-05-02] MEDS: BUDESONIDE/FORMETEROL FUMARATE 160/4.5 mcg INHALER IH SCH ×2 (09:48→22:40)
[2019-05-02] MEDS: TIOTROPIUM BROMIDE 2.5 MCG (SPIRIVA) RESPIMAT INHALER IH SCH (09:48)
[2019-05-02] MEDS: SILVER SULFADIAZINE 1% TOP CREAM 50 GM JAR TP SCH ×2 (09:48→22:40)
[2019-05-02 10:45] LABS: BASO % 0.1 % (0-2.0); EOS % 0.3 % (0-4.5); HEMATOCRIT 33.8 % (35.4-49); LYMPH % 4.1 % (8-40); MCH 32.1 pg (25.7-33.7); MCHC 32.5 g/dl (32.0-35.9); MEAN CELL VOLUME 98.6 fl (80-96); MEAN PLT VOLUME 8.4 fl (7.5-11.1); MONO % 2.9 % (3.8-10.2); NEUT % 92.6 % (42.8-82.8); PLATELET COUNT 138 K/MM3 (134-434); RBC 3.42 M/mm3 (4.00-5.60); RDW 16.5 % (11.9-15.9); WHITE BLOOD COUNT 15.6 K/mm3 (4.0-10.0)
[2019-05-02 11:02] LABS: BLOOD UREA NITROGEN 55.1 mg/dL (7-18); CALCIUM 8.8 mg/dL (8.5-10.1); CREATININE 0.8 mg/dL (0.55-1.3); POTASSIUM 4.1 mmol/L (3.5-5.1)
--- NOTE | 2019-05-02 12:29 | PN ---
Progress Note, Physician History of Present Illness: stable says he is feeling better - Current Medication List Current Medications: Active Medications Acetaminophen (Tylenol -) 650 mg PO Q4H PRN PRN Reason: PAIN LEVEL 1-5 Last Admin: 04/16/19 22:14 Dose: 650 mg Albuterol Sulfate (Ventolin 0.083% Nebulizer Soln -) 1 amp NEB RQ4H [facility] Last Admin: 05/02/19 11:56 Dose: Not Given Ascorbic Acid (Vitamin C -) 500 mg PO BID [facility] Last Admin: 05/02/19 09:48 Dose: 500 mg Budesonide/Formoterol Fumarate (Symbicort 160/4.5mcg -) 2 puff IH BID [facility] Last Admin: 05/02/19 09:48 Dose: 2 puff Carbidopa/Levodopa (Sinemet 25/100 -) 2 each PO TID [facility] Last Admin: 05/02/19 06:10 Dose: 2 each Dronabinol (Marinol -) 5 mg PO DAILY@1200 [facility] Stop: 05/03/19 12:01 Last Admin: 05/01/19 12:01 Dose: 5 mg Ceftriaxone Sodium 1 gm/ (Dextrose) 50 mls @ 200 mls/hr IVPB DAILY [facility]; Protocol Melatonin (Melatonin) 5 mg PO HS PRN PRN Reason: INSOMNIA Last Admin: 04/26/19 22:24 Dose: 5 mg Nystatin (Nystatin Oral Suspension -) 500,000 units PO Q6HPO [facility] Last Admin: 05/02/19 06:10 Dose: 500,000 units Prednisone (Deltasone -) 40 mg PO DAILY [facility] Last Admin: 05/02/19 09:47 Dose: 40 mg Sertraline HCl 50 mg/ (Sertraline HCl 25 mg) 75 mg PO DAILY [facility] Last Admin: 05/02/19 09:47 Dose: 75 mg Silver Sulfadiazine (Silvadene -) 1 applic TP BID [facility] Last Admin: 05/02/19 09:48 Dose: 1 applic Tiotropium [place] (Spiriva Respimat) 2 puff IH DAILY [facility] Last Admin: 05/02/19 09:48 Dose: 2 puff Zinc Oxide/Panthenol/Vitamin E (Balmex Cream -) 1 applic TP BID [facility] Last Admin: 05/02/19 09:46 Dose: 1 applic Zolpidem Tartrate (Ambien -) 5 mg PO HS PRN PRN Reason: INSOMNIA Stop: 05/06/19 21:31 - Objective Vital Signs: Vital Signs Temperature 98 F 05/02/19 10:31 Pulse Rate 100 H 05/02/19 10:31 Respiratory Rate 24 H 05/02/19 10:31 Blood Pressure 128/71 05/02/19 10:31 O2 Sat by Pulse Oximetry (%) 98 05/02/19 09:00 Constitutional: Yes: No Distress, Calm, Other (failure to thrive) Cardiovascular: Yes: S1, S2 Respiratory: Yes: Regular, On Nasal O2, Rhonchi Gastrointestinal: Yes: Normal Bowel Sounds, Soft Musculoskeletal: Yes: WNL Extremities: Yes: WNL Neurological: Yes: Alert, Oriented Psychiatric: Yes: Alert, Oriented Labs: CBC, BMP 05/02/19 10:00 05/02/19 10:00 INR, PTT INR 1.03 (0.83-1.09) 04/06/19 19:45 Assessment/Plan Problem List - Problems (1) Pulmonary hypertension Code(s): I27.20 - PULMONARY HYPERTENSION, UNSPECIFIED (2) GERD (gastroesophageal reflux disease) Code(s): K21.9 - GASTRO-ESOPHAGEAL REFLUX DISEASE WITHOUT ESOPHAGITIS (3) Acute diastolic (congestive) heart failure Code(s): I50.31 - ACUTE DIASTOLIC (CONGESTIVE) HEART FAILURE (4) Acute exacerbation of chronic obstructive pulmonary disease Code(s): J44.1 - CHRONIC OBSTRUCTIVE PULMONARY DISEASE W (ACUTE) EXACERBATION (5) Acute hypoxemic respiratory failure Code(s): J96.01 - ACUTE RESPIRATORY FAILURE WITH HYPOXIA (6) Bipolar 1 disorder Code(s): F31.9 - BIPOLAR DISORDER, UNSPECIFIED (7) Bronchiectasis Code(s): J47.9 - BRONCHIECTASIS, UNCOMPLICATED (8) CHF (congestive heart failure), NYHA class II Code(s): I50.9 - HEART FAILURE, UNSPECIFIED (9) Chronic kidney disease (CKD) Code(s): N18.9 - CHRONIC KIDNEY DISEASE, UNSPECIFIED (10) Elevated troponin Code(s): R74.8 - ABNORMAL LEVELS OF OTHER SERUM ENZYMES (11) Emphysema of lung Code(s): J43.9 - EMPHYSEMA, UNSPECIFIED (12) Hypotension Code(s): I95.9 - HYPOTENSION, UNSPECIFIED (13) HTN (hypertension) Code(s): I10 - ESSENTIAL (PRIMARY) HYPERTENSION (14) Insomnia disorder Code(s): G47.00 - INSOMNIA, UNSPECIFIED plan continue to monitor nutrition avoid fluid overload resp support continue current mgmt
--- NOTE | 2019-05-02 12:37 | PN ---
Progress Note (short form) - Note Progress Note: PULMONARY SUBJECTIVE IMPROVEMENT VSS/AFEBRILE Gen: Mildly tachypneic at rest on NC O2 Heart: RRR Lung: scattered bilateral rhonchi, no wheeze Abd: soft, nontender Ext: no edema - Problems (1) COPD exacerbation Code(s): J44.1 - CHRONIC OBSTRUCTIVE PULMONARY DISEASE W (ACUTE) EXACERBATION A/P Acute COPD Exacerbation Chronic Hypoxic Respiratory Failure Severe Pulmonary HTN CAD HTN - ABX per ID - Inhaled bronchodilators - Symbicort - O2 to keep SpO2 >90% - DVT prophylaxis - Noted Medrol: change to Prednisone Brittani VIDALES MD
[2019-05-02] MEDS ORDERED: cefTRIAXone SODIUM 1 GM VIAL ONE (12:52)
[2019-05-02] MEDS ORDERED: DEXTROSE 5%-WATER - 50 ML IVPB ONE (12:52)
[2019-05-02] MEDS: CEFTRIAXONE 1 GM in DEXTROSE 5%-WATER - 50 ML IVPB SCH (13:07)
[2019-05-02] MEDS: DRONABINOL 2.5 MG CAPSULE PO SCH (13:07)
--- NOTE | 2019-05-02 13:14 | PN ---
Progress Note, Physician History of Present Illness: Pt is having Indequate Calorie intake Antibiotics DCed WBC trending up Left message with ID GI consult Dr diaz noted. and Pt agreed for Peg tube swallow Eval with Loriliz - Current Medication List Current Medications: Active Medications Acetaminophen (Tylenol -) 650 mg PO Q4H PRN PRN Reason: PAIN LEVEL 1-5 Last Admin: 04/16/19 22:14 Dose: 650 mg Albuterol Sulfate (Ventolin 0.083% Nebulizer Soln -) 1 amp NEB RQ4H [facility] Last Admin: 05/02/19 11:56 Dose: Not Given Ascorbic Acid (Vitamin C -) 500 mg PO BID [facility] Last Admin: 05/02/19 09:48 Dose: 500 mg Budesonide/Formoterol Fumarate (Symbicort 160/4.5mcg -) 2 puff IH BID [facility] Last Admin: 05/02/19 09:48 Dose: 2 puff Carbidopa/Levodopa (Sinemet 25/100 -) 2 each PO TID [facility] Last Admin: 05/02/19 13:08 Dose: 2 each Dronabinol (Marinol -) 5 mg PO DAILY@1200 [facility] Stop: 05/03/19 12:01 Last Admin: 05/02/19 13:07 Dose: 5 mg Ceftriaxone Sodium 1 gm/ (Dextrose) 50 mls @ 100 mls/hr IVPB DAILY [facility]; Protocol Last Admin: 05/02/19 13:07 Dose: 100 mls/hr Melatonin (Melatonin) 5 mg PO HS PRN PRN Reason: INSOMNIA Last Admin: 04/26/19 22:24 Dose: 5 mg Nystatin (Nystatin Oral Suspension -) 500,000 units PO Q6HPO [facility] Last Admin: 05/02/19 13:07 Dose: 500,000 units Prednisone (Deltasone -) 40 mg PO DAILY [facility] Last Admin: 05/02/19 09:47 Dose: 40 mg Sertraline HCl 50 mg/ (Sertraline HCl 25 mg) 75 mg PO DAILY [facility] Last Admin: 05/02/19 09:47 Dose: 75 mg Silver Sulfadiazine (Silvadene -) 1 applic TP BID [facility] Last Admin: 05/02/19 09:48 Dose: 1 applic Tiotropium [place] (Spiriva Respimat) 2 puff IH DAILY [facility] Last Admin: 05/02/19 09:48 Dose: 2 puff Zinc Oxide/Panthenol/Vitamin E (Balmex Cream -) 1 applic TP BID [facility] Last Admin: 05/02/19 09:46 Dose: 1 applic Zolpidem Tartrate (Ambien -) 5 mg PO HS PRN PRN Reason: INSOMNIA Stop: 05/06/19 21:31 - Objective Vital Signs: Vital Signs Temperature 98 F 05/02/19 10:31 Pulse Rate 100 H 05/02/19 10:31 Respiratory Rate 24 H 05/02/19 10:31 Blood Pressure 128/71 05/02/19 10:31 O2 Sat by Pulse Oximetry (%) 98 05/02/19 09:00 Constitutional: Yes: Anxious Eyes: Yes: Conjunctiva Clear, EOM Intact HENT: Yes: Atraumatic, Normocephalic Neck: Yes: Supple, Trachea Midline Cardiovascular: Yes: Regular Rate and Rhythm, S1 Respiratory: Yes: Other (B/L coarse breath sounds) Gastrointestinal: Yes: Normal Bowel Sounds, Soft Edema: No Peripheral Pulses WNL: Yes Labs: CBC, BMP 05/02/19 10:00 05/02/19 10:00 INR, PTT INR 1.03 (0.83-1.09) 04/06/19 19:45 Problem List - Problems (1) Pulmonary hypertension Code(s): I27.20 - PULMONARY HYPERTENSION, UNSPECIFIED (2) GERD (gastroesophageal reflux disease) Code(s): K21.9 - GASTRO-ESOPHAGEAL REFLUX DISEASE WITHOUT ESOPHAGITIS (3) Acute diastolic (congestive) heart failure Code(s): I50.31 - ACUTE DIASTOLIC (CONGESTIVE) HEART FAILURE (4) Acute exacerbation of chronic obstructive pulmonary disease Code(s): J44.1 - CHRONIC OBSTRUCTIVE PULMONARY DISEASE W (ACUTE) EXACERBATION (5) Acute hypoxemic respiratory failure Code(s): J96.01 - ACUTE RESPIRATORY FAILURE WITH HYPOXIA (6) Bipolar 1 disorder Code(s): F31.9 - BIPOLAR DISORDER, UNSPECIFIED (7) Bronchiectasis Code(s): J47.9 - BRONCHIECTASIS, UNCOMPLICATED (8) CHF (congestive heart failure), NYHA class II Code(s): I50.9 - HEART FAILURE, UNSPECIFIED (9) Chronic kidney disease (CKD) Code(s): N18.9 - CHRONIC KIDNEY DISEASE, UNSPECIFIED (10) Elevated troponin Code(s): R74.8 - ABNORMAL LEVELS OF OTHER SERUM ENZYMES (11) Emphysema of lung Code(s): J43.9 - EMPHYSEMA, UNSPECIFIED (12) Hypotension Code(s): I95.9 - HYPOTENSION, UNSPECIFIED (13) HTN (hypertension) Code(s): I10 - ESSENTIAL (PRIMARY) HYPERTENSION (14) Insomnia disorder Code(s): G47.00 - INSOMNIA, UNSPECIFIED Assessment/Plan (1) Pulmonary hypertension Code(s): I27.20 - PULMONARY HYPERTENSION, UNSPECIFIED (2) GERD (gastroesophageal reflux disease) Code(s): K21.9 - GASTRO-ESOPHAGEAL REFLUX DISEASE WITHOUT ESOPHAGITIS (3) Acute diastolic (congestive) heart failure Code(s): I50.31 - ACUTE DIASTOLIC (CONGESTIVE) HEART FAILURE (4) Acute exacerbation of chronic obstructive pulmonary disease Code(s): J44.1 - CHRONIC OBSTRUCTIVE PULMONARY DISEASE W (ACUTE) EXACERBATION (5) Acute hypoxemic respiratory failure Code(s): J96.01 - ACUTE RESPIRATORY FAILURE WITH HYPOXIA (6) Bipolar 1 disorder Code(s): F31.9 - BIPOLAR DISORDER, UNSPECIFIED (7) Bronchiectasis Code(s): J47.9 - BRONCHIECTASIS, UNCOMPLICATED (8) CHF (congestive heart failure), NYHA class II Code(s): I50.9 - HEART FAILURE, UNSPECIFIED (9) Chronic kidney disease (CKD) Code(s): N18.9 - CHRONIC KIDNEY DISEASE, UNSPECIFIED (10) Elevated troponin Code(s): R74.8 - ABNORMAL LEVELS OF OTHER SERUM ENZYMES (11) Emphysema of lung Code(s): J43.9 - EMPHYSEMA, UNSPECIFIED (12) Hypotension Code(s): I95.9 - HYPOTENSION, UNSPECIFIED (13) HTN (hypertension) Code(s): I10 - ESSENTIAL (PRIMARY) HYPERTENSION (14) Insomnia disorder Code(s): G47.00 - INSOMNIA, UNSPECIFIED Pt is not improving well Off antibiotics WBC trending up Swallow eval By Kimberlyn Diop Pt and Pt agreed for Peg
[2019-05-02 13:56] LABS: ANISOCYTOSIS 0; MACROCYTOSIS 0; PLATELET ESTIMATE DECREASED
[2019-05-02] MEDS ORDERED: PT OWN MED DRAWER 7, Y5N ONE (22:03)
[2019-05-03] MEDS: NYSTATIN 500,000 UNITS/5 ML SUSPENSION PO SCH ×5 (01:02→23:43)
[2019-05-03] MEDS ORDERED: PT OWN MED DRAWER 7, Y5N ONE ×2 (02:50→22:19)
[2019-05-03] MEDS: CARBIDOPA/LEVODOPA 25/100 TABLET (FP) PO SCH ×3 (07:01→23:41)
[2019-05-03 08:28] LABS: BASO % 0.5 % (0-2.0); EOS % 0.6 % (0-4.5); HEMATOCRIT 32.4 % (35.4-49); HEMOGLOBIN 10.8 GM/dL (11.7-16.9); LYMPH % 5.6 % (8-40); MCH 32.7 pg (25.7-33.7); MCHC 33.5 g/dl (32.0-35.9); MEAN CELL VOLUME 97.8 fl (80-96); MEAN PLT VOLUME 8.6 fl (7.5-11.1); MONO % 3.2 % (3.8-10.2); NEUT % 90.1 % (42.8-82.8); PLATELET COUNT 135 K/MM3 (134-434); RBC 3.31 M/mm3 (4.00-5.60); RDW 16.2 % (11.9-15.9); WHITE BLOOD COUNT 13.8 K/mm3 (4.0-10.0)
[2019-05-03] MEDS ORDERED: SERTRALINE HCL 25 MG TABLET (FP) ONE (09:17)
[2019-05-03] MEDS ORDERED: SERTRALINE HCL 50 MG TABLET (FP) ONE (09:17)
[2019-05-03] MEDS ORDERED: cefTRIAXone SODIUM 1 GM VIAL ONE (09:18)
[2019-05-03] MEDS ORDERED: DEXTROSE 5%-WATER - 50 ML IVPB ONE (09:18)
[2019-05-03 09:42] LABS: CALCIUM 8.6 mg/dL (8.5-10.1); CREATININE 0.8 mg/dL (0.55-1.3); POTASSIUM 3.9 mmol/L (3.5-5.1)
[2019-05-03] MEDS: ASCORBIC ACID 500 MG TABLET (FP) PO SCH ×2 (10:12→23:41)
[2019-05-03] MEDS: predniSONE 20 MG TABLET (UD) PO SCH (10:12)
[2019-05-03] MEDS: SERTRALINE HCL 50 MG, SERTRALINE HCL 25 MG PO SCH (10:12)
[2019-05-03] MEDS: CEFTRIAXONE 1 GM in DEXTROSE 5%-WATER - 50 ML IVPB SCH (10:13)
[2019-05-03] MEDS: ZINC OXIDE/PANTHENOL/VITAMIN E 56 GM TUBE TP SCH ×2 (10:13→23:42)
--- NOTE | 2019-05-03 10:13 | PN ---
Progress Note (short form) - Note Progress Note: 89 year old male history of HTN,COPD, CAD. Patient came for shortness of breath and has been treated with steroid and abx, pateint has difficulty with breathing. He also have history of parkinson disease diagnosed by Dr Gardner and he is taking sinemet 1 tab ( 25/100) tid. stable no new symptoms, no new symptoms, waiting for peg tube placement NEUROLOGICAL EXAMINATION Alert oriented x 2, neck is supple eomi, pupils reactive no face asymmetry moving all extremity there is bradykinesia and mild tremors were identified( more so on right side) sensation is normal , strength is normal Assessment/Plan 89 year old male history of HTN,COPD, CAD. He has history of PD for two yeas, and now on sinemet 25/100 two tab po tid. Plan: continue to watch on sinemet (25/100)two tab po tid patient seems to be more communicative, bright and active, advice to keep the same dose for now. follow up outpatient Thanking you so much Keegan Ko MD
[2019-05-03] MEDS: SILVER SULFADIAZINE 1% TOP CREAM 50 GM JAR TP SCH ×2 (10:14→23:42)
[2019-05-03] MEDS: BUDESONIDE/FORMETEROL FUMARATE 160/4.5 mcg INHALER IH SCH ×2 (10:16→23:42)
[2019-05-03] MEDS: TIOTROPIUM BROMIDE 2.5 MCG (SPIRIVA) RESPIMAT INHALER IH SCH (10:16)
--- NOTE | 2019-05-03 10:27 | PN ---
Progress Note (short form) - Note Progress Note: PULMONARY States breathing is "pretty good" today. Vital Signs Period Temp Pulse Resp BP Sys/[place] Pulse Ox Last 24 Hr 97.4 F-98.6 F 100-120 20-24 116-128/68-72 98 Gen: NAD at rest Heart: RRR Lung: bilateral rhonchi Abd: soft, nontender Ext: no edema CBC, BMP 05/03/19 06:55 05/03/19 06:55 Active Medications Acetaminophen (Tylenol -) 650 mg PO Q4H PRN PRN Reason: PAIN LEVEL 1-5 Last Admin: 04/16/19 22:14 Dose: 650 mg Ascorbic Acid (Vitamin C -) 500 mg PO BID [facility] Last Admin: 05/03/19 10:12 Dose: 500 mg Budesonide/Formoterol Fumarate (Symbicort 160/4.5mcg -) 2 puff IH BID [facility] Last Admin: 05/03/19 10:16 Dose: 2 puff Carbidopa/Levodopa (Sinemet 25/100 -) 2 each PO TID [facility] Last Admin: 05/03/19 07:01 Dose: 2 each Dronabinol (Marinol -) 5 mg PO DAILY@1200 [facility] Stop: 05/03/19 12:01 Last Admin: 05/02/19 13:07 Dose: 5 mg Ceftriaxone Sodium 1 gm/ (Dextrose) 50 mls @ 100 mls/hr IVPB DAILY [facility]; Protocol Last Admin: 05/03/19 10:13 Dose: 100 mls/hr Melatonin (Melatonin) 5 mg PO HS PRN PRN Reason: INSOMNIA Last Admin: 04/26/19 22:24 Dose: 5 mg Nystatin (Nystatin Oral Suspension -) 500,000 units PO Q6HPO [facility] Last Admin: 05/03/19 07:02 Dose: 500,000 units Prednisone (Deltasone -) 40 mg PO DAILY [facility] Last Admin: 05/03/19 10:12 Dose: 40 mg Sertraline HCl 50 mg/ (Sertraline HCl 25 mg) 75 mg PO DAILY [facility] Last Admin: 05/03/19 10:12 Dose: 75 mg Silver Sulfadiazine (Silvadene -) 1 applic TP BID [facility] Last Admin: 05/03/19 10:14 Dose: 1 applic Tiotropium [place] (Spiriva Respimat) 2 puff IH DAILY [facility] Last Admin: 05/03/19 10:16 Dose: 2 puff Zinc Oxide/Panthenol/Vitamin E (Balmex Cream -) 1 applic TP BID [facility] Last Admin: 05/03/19 10:13 Dose: 1 applic A/P Acute COPD Exacerbation Chronic Hypoxic Respiratory Failure Severe Pulmonary HTN CAD Hyponatremia HTN Malnutrition - slow prednisone taper - inhaled bronchodilators standing and PRN - symbicort, spiriva - O2 to keep SpO2 >90% - monitor lytes - DVT prophylaxis - poor overall prognosis Problem List - Problems (1) COPD exacerbation Code(s): J44.1 - CHRONIC OBSTRUCTIVE PULMONARY DISEASE W (ACUTE) EXACERBATION
[2019-05-03] MEDS ORDERED: ALBUTEROL SO4 0.083% IH SOL 2.5 MG/3 ML VIAL.NEB. NEB PRN (10:28)
[2019-05-03 10:30] LABS: ANISOCYTOSIS 1+; MACROCYTOSIS 1+; PLATELET ESTIMATE DECREASED
[2019-05-03] MEDS: DRONABINOL 2.5 MG CAPSULE PO SCH (11:19)
[2019-05-03] MEDS: ALBUTEROL SO4 0.083% IH SOL 2.5 MG/3 ML VIAL.NEB. NEB SCH ×3 (11:40→19:50)
--- NOTE | 2019-05-03 12:43 | PN ---
Progress Note, Physician History of Present Illness: stable says he is feeling better weakness plan for peg tube - Current Medication List Current Medications: Active Medications Acetaminophen (Tylenol -) 650 mg PO Q4H PRN PRN Reason: PAIN LEVEL 1-5 Last Admin: 04/16/19 22:14 Dose: 650 mg Albuterol Sulfate (Ventolin 0.083% Nebulizer Soln -) 1 amp NEB RQID [facility] Last Admin: 05/03/19 11:40 Dose: 1 amp Albuterol Sulfate (Ventolin 0.083% Nebulizer Soln -) 1 amp NEB Q4H PRN PRN Reason: SHORT OF BREATH/WHEEZING Ascorbic Acid (Vitamin C -) 500 mg PO BID [facility] Last Admin: 05/03/19 10:12 Dose: 500 mg Budesonide/Formoterol Fumarate (Symbicort 160/4.5mcg -) 2 puff IH BID [facility] Last Admin: 05/03/19 10:16 Dose: 2 puff Carbidopa/Levodopa (Sinemet 25/100 -) 2 each PO TID [facility] Last Admin: 05/03/19 07:01 Dose: 2 each Ceftriaxone Sodium 1 gm/ (Dextrose) 50 mls @ 100 mls/hr IVPB DAILY [facility]; Protocol Last Admin: 05/03/19 10:13 Dose: 100 mls/hr Melatonin (Melatonin) 5 mg PO HS PRN PRN Reason: INSOMNIA Last Admin: 04/26/19 22:24 Dose: 5 mg Nystatin (Nystatin Oral Suspension -) 500,000 units PO Q6HPO [facility] Last Admin: 05/03/19 11:20 Dose: 500,000 units Prednisone (Deltasone -) 40 mg PO DAILY [facility] Last Admin: 05/03/19 10:12 Dose: 40 mg Sertraline HCl 50 mg/ (Sertraline HCl 25 mg) 75 mg PO DAILY [facility] Last Admin: 05/03/19 10:12 Dose: 75 mg Silver Sulfadiazine (Silvadene -) 1 applic TP BID [facility] Last Admin: 05/03/19 10:14 Dose: 1 applic Tiotropium [place] (Spiriva Respimat) 2 puff IH DAILY [facility] Last Admin: 05/03/19 10:16 Dose: 2 puff Zinc Oxide/Panthenol/Vitamin E (Balmex Cream -) 1 applic TP BID [facility] Last Admin: 05/03/19 10:13 Dose: 1 applic - Objective Vital Signs: Vital Signs Temperature 97.4 F L 05/02/19 22:00 Pulse Rate 110 H 05/02/19 22:00 Respiratory Rate 20 05/02/19 22:00 Blood Pressure 116/72 05/02/19 22:00 O2 Sat by Pulse Oximetry (%) 98 05/02/19 21:00 Constitutional: Yes: No Distress, Calm Cardiovascular: Yes: S1, S2 Respiratory: Yes: On Nasal O2, Poor Air Entry, Rhonchi Gastrointestinal: Yes: Normal Bowel Sounds, Soft Musculoskeletal: Yes: WNL Extremities: Yes: WNL Neurological: Yes: Alert, Oriented Psychiatric: Yes: Alert, Oriented Labs: CBC, BMP 05/03/19 06:55 05/03/19 06:55 INR, PTT INR 1.03 (0.83-1.09) 04/06/19 19:45 Assessment/Plan Problem List - Problems (1) Pulmonary hypertension Code(s): I27.20 - PULMONARY HYPERTENSION, UNSPECIFIED (2) GERD (gastroesophageal reflux disease) Code(s): K21.9 - GASTRO-ESOPHAGEAL REFLUX DISEASE WITHOUT ESOPHAGITIS (3) Acute diastolic (congestive) heart failure Code(s): I50.31 - ACUTE DIASTOLIC (CONGESTIVE) HEART FAILURE (4) Acute exacerbation of chronic obstructive pulmonary disease Code(s): J44.1 - CHRONIC OBSTRUCTIVE PULMONARY DISEASE W (ACUTE) EXACERBATION (5) Acute hypoxemic respiratory failure Code(s): J96.01 - ACUTE RESPIRATORY FAILURE WITH HYPOXIA (6) Bipolar 1 disorder Code(s): F31.9 - BIPOLAR DISORDER, UNSPECIFIED (7) Bronchiectasis Code(s): J47.9 - BRONCHIECTASIS, UNCOMPLICATED (8) CHF (congestive heart failure), NYHA class II Code(s): I50.9 - HEART FAILURE, UNSPECIFIED (9) Chronic kidney disease (CKD) Code(s): N18.9 - CHRONIC KIDNEY DISEASE, UNSPECIFIED (10) Elevated troponin Code(s): R74.8 - ABNORMAL LEVELS OF OTHER SERUM ENZYMES (11) Emphysema of lung Code(s): J43.9 - EMPHYSEMA, UNSPECIFIED (12) Hypotension Code(s): I95.9 - HYPOTENSION, UNSPECIFIED (13) HTN (hypertension) Code(s): I10 - ESSENTIAL (PRIMARY) HYPERTENSION (14) Insomnia disorder Code(s): G47.00 - INSOMNIA, UNSPECIFIED plan continue to monitor nutrition avoid fluid overload resp support continue current mgmt
--- NOTE | 2019-05-03 12:48 | CONSULT ---
Admitting History and Physical - Primary Care Physician PCP: Ofe Cassidy - Admission History of Present Illness: 89 y/o M with COPD, CKD, CHF, Parkinsons, HTN,COPD, CAD, admitted for Exacerbation of COPD,tachypneia, congestion, PNA considering PEG insertion. Receiving Puree, thin liquid, ensure enlive. Selected Entries 04/30/19 04/30/19 04/30/19 10:00 15:00 22:45 Breakfast 25% Diet Tolerated Fair Fair Poor Lunch 50% Supper 25% Temperature 05/01/19 05/01/19 05/01/19 05:00 10:15 14:52 Breakfast Diet Tolerated Lunch Supper Temperature 98 F 98.1 F 98.2 F 05/01/19 05/01/19 05/01/19 17:41 20:31 22:00 Breakfast Diet Tolerated Poor Poor Lunch Supper 25% 25% Temperature 97.6 F 05/01/19 05/02/19 05/02/19 23:00 06:00 10:00 Breakfast 25% Diet Tolerated Poor Lunch Supper 25% Temperature 98.0 F 97.8 F 05/02/19 05/02/19 05/02/19 10:31 16:00 18:00 Breakfast 25% Diet Tolerated Poor Lunch 25% Supper 25% Temperature 98 F 98.6 F 05/02/19 05/02/19 05/03/19 20:23 22:00 10:51 Breakfast 25% Diet Tolerated Refused Fair Lunch Supper 0 Temperature 97.4 F L Laboratory Tests 04/29/19 04/30/19 05/01/19 07:15 06:38 05:50 WBC 18.7 H 14.4 H 14.2 H 05/02/19 05/03/19 10:00 06:55 WBC 15.6 H 13.8 H This is my first consult. Gi recommended Swallowing evaluation and GT via IR. 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) Pulmonary: Yes: COPD, O2 Dependent Renal/: Yes: Renal Inusuff Psych: Yes: Bipolar, Depression Musculoskeletal: Yes: Osteoarthritis - Past Surgical History Past Surgical History: Yes: Cholecystectomy - Smoking History Smoking history: Former smoker Have you smoked in the past 12 months: No If you are a former smoker, when did you quit?: 1998 - Alcohol/Substance Use Hx Alcohol Use: No History of Substance Use: reports: None - Social History ADL: Independent History of Recent Travel: No History - Admission Reason For Visit: ACUTE EXACERBATION OF CHRONIC OBSTRUCTIVE PULMONAR - Diagnostics X-ray: Report Reviewed - General Mental Status: Awake and Alert, Able to Follow Commands, Forgetful, Vague Attention: Intact Ability to Follow Directions: Good Head/Neck Control: Fair - Hearing Hearing: Normal Hearing Aide: No With Patient: No Speech Evaluation - Communication Primary Language: GERMAN Communication: Yes: Within Normal Limits Oral Expression Ability: Yes: No Impairment - Speech Production Able to Make Needs Known: Yes: WNL Intelligibility: Yes: WNL - Speech Characteristics Voice Loudness: Normal Voice Pitch: Yes: Normal Voice Phonatory-based Quality: Yes: Normal Speech Pattern: Normal Speech Clarity: < 100% Nasal Resonance: Normal Articulation: Yes: Precise Voice, Other Observations: Yes: Mouth Breathing (oral dryness), Inadequate Breath Support (weak) - Language/Auditory Comprehension Follows: Yes: 1 Stage Simple Commands Observation: Able to respond to yes/no queries: Yes, Yes/No Confusion: No, Comprehends Conversational Speech: Yes - Language/Verbal Expression Functional Communication Status: Yes: WNL - Swallow Evaluation/Bedside Assessment Current Nutritional Intake: Dysphagia Pureed, Thin Liquids Oral Secretions: Yes: WFL, Dryness Dentition: Yes: Missing Teeth Facial Symmetry at Rest: Symmetrical Facial Symmetry on Retraction: Symmetrical Sensation: Normal Against Resistance Opening: Weak Against Resistance Closing: Weak Pucker Lips: Normal Smile: Normal Lingual Movement: Normal, Symmetric Lingual Speed of Movement: Normal Lingual Movement Strgth Against Opposition: Reduced Lingual Movement Characteristics: Normal Velopharyngeal Movement: Normal Laryngeal Elevation: WFL Laryngeal Movement: Able to Palpate Rate of Intake: WFL Bolus Size: WFL Labial Seal: WFL Oral Prep Time: WFL A-P Transit: WFL Pocketing: None Timing of Swallow: WFL Coughing/Throat Clear: No (3 oz water (-)) Change in Voice: No Recommendations - Speech Evaluation, Impression/Plan Impression: Poor appetite. Weak. Swallowing overtly functional without overt signs of aspiration. Missing dentition. Nursing reports that pt is stronger last couple of days, but was coughing on thin liquid previously. Pt down from 154lbs to 126 lbs from Nov to Apr 06, 2019, per EMR. - Dysphagia Impressions/Plan Dysphagia Impressions: Mild Impairment (due to overall debilitation) *Silent aspiration: cannot be R/O at bedside Dysphagia Treatment Plan: Small Bites, Chin Tuck/Down, Safe Rate, 1/2 tsp. at a time, Elevate HOB during feed Recommendations: Other (Concur with supplemental TF to improve nutrition status due to poor po intake and significant weight loss. MBS in future, for possible diet upgrade, if he becomes stronger) - Recommendations Diet Consistency: Dysphagia Pureed Medication Administration: Crushed with applesauce Liquids: Thin Liquids (if cough noted, downgrade to nectar.) Supplement: Other (Trial ensure enlive? Pt dislikes Ensure compact)
--- NOTE | 2019-05-03 13:56 | PN ---
Progress Note (short form) - Note Progress Note: Renal follow up for hyponatremia Seen and examined at the bedside offers no acute complaints. has shortness of breath that has not changed. no fever, chills, N/V/D making urine tolerating oral diet Vital Signs Temperature 98 F 05/03/19 10:00 Pulse Rate 103 H 05/03/19 10:00 Respiratory Rate 05/03/19 10:00 Blood Pressure 114/69 05/03/19 10:00 O2 Sat by Pulse Oximetry (%) 98 05/03/19 09:00 Intake & Output 04/30/19 05/01/19 05/02/19 05/03/19 23:59 23:59 23:59 23:59 Intake Total 780 920 250 200 Balance 780 920 250 200 Weight 62.006 kg 57.379 kg 56.79 kg 57.153 kg NAD Course BS soft NT/ND no LE edema, clubbing or cyanosis CBC, BMP 05/03/19 06:55 05/03/19 06:55 Current Medications Acetaminophen (Tylenol -) 650 mg PO Q4H PRN PRN Reason: PAIN LEVEL 1-5 Last Admin: 04/16/19 22:14 Dose: 650 mg Albuterol Sulfate (Ventolin 0.083% Nebulizer Soln -) 1 amp NEB RQID [facility] Last Admin: 05/03/19 11:40 Dose: 1 amp Albuterol Sulfate (Ventolin 0.083% Nebulizer Soln -) 1 amp NEB Q4H PRN PRN Reason: SHORT OF BREATH/WHEEZING Ascorbic Acid (Vitamin C -) 500 mg PO BID [facility] Last Admin: 05/03/19 10:12 Dose: 500 mg Budesonide/Formoterol Fumarate (Symbicort 160/4.5mcg -) 2 puff IH BID [facility] Last Admin: 05/03/19 10:16 Dose: 2 puff Carbidopa/Levodopa (Sinemet 25/100 -) 2 each PO TID [facility] Last Admin: 05/03/19 07:01 Dose: 2 each Ceftriaxone Sodium 1 gm/ (Dextrose) 50 mls @ 100 mls/hr IVPB DAILY [facility]; Protocol Last Admin: 05/03/19 10:13 Dose: 100 mls/hr Melatonin (Melatonin) 5 mg PO HS PRN PRN Reason: INSOMNIA Last Admin: 04/26/19 22:24 Dose: 5 mg Nystatin (Nystatin Oral Suspension -) 500,000 units PO Q6HPO [facility] Last Admin: 05/03/19 11:20 Dose: 500,000 units Prednisone (Deltasone -) 40 mg PO DAILY [facility] Last Admin: 05/03/19 10:12 Dose: 40 mg Sertraline HCl 50 mg/ (Sertraline HCl 25 mg) 75 mg PO DAILY [facility] Last Admin: 05/03/19 10:12 Dose: 75 mg Silver Sulfadiazine (Silvadene -) 1 applic TP BID [facility] Last Admin: 05/03/19 10:14 Dose: 1 applic Tiotropium [place] (Spiriva Respimat) 2 puff IH DAILY [facility] Last Admin: 05/03/19 10:16 Dose: 2 puff Zinc Oxide/Panthenol/Vitamin E (Balmex Cream -) 1 applic TP BID [facility] Last Admin: 05/03/19 10:13 Dose: 1 applic 89 year old gentleman with history of COPD, Lung cancer, cardiomyopathy, CKD presented with cough and shortness of breath and noted to have worsening hyponatremia. 1. hyponatremia from poor solute intake + diuretics now resolved 2. Respiratory failure 3. Bronchitis 4. Leukocytosis 5. Mild hypernatremia from decreased oral fluid intake Renal function stable BUN elevated likely related to steroids use Na slightly elevated, encouraged oral water intake trend Na daily. Zack Saleem DO
--- NOTE | 2019-05-03 16:44 | PN ---
Progress Note (short form) - Note Progress Note: s: stable dyspnea. no chest pain, palps, dizziness, edema. Current Medications Acetaminophen (Tylenol -) 650 mg PO Q4H PRN PRN Reason: PAIN LEVEL 1-5 Last Admin: 04/16/19 22:14 Dose: 650 mg Albuterol Sulfate (Ventolin 0.083% Nebulizer Soln -) 1 amp NEB RQID [facility] Last Admin: 05/03/19 15:22 Dose: 1 amp Albuterol Sulfate (Ventolin 0.083% Nebulizer Soln -) 1 amp NEB Q4H PRN PRN Reason: SHORT OF BREATH/WHEEZING Ascorbic Acid (Vitamin C -) 500 mg PO BID [facility] Last Admin: 05/03/19 10:12 Dose: 500 mg Budesonide/Formoterol Fumarate (Symbicort 160/4.5mcg -) 2 puff IH BID [facility] Last Admin: 05/03/19 10:16 Dose: 2 puff Carbidopa/Levodopa (Sinemet 25/100 -) 2 each PO TID [facility] Last Admin: 05/03/19 14:58 Dose: 2 each Ceftriaxone Sodium 1 gm/ (Dextrose) 50 mls @ 100 mls/hr IVPB DAILY [facility]; Protocol Last Admin: 05/03/19 10:13 Dose: 100 mls/hr Melatonin (Melatonin) 5 mg PO HS PRN PRN Reason: INSOMNIA Last Admin: 04/26/19 22:24 Dose: 5 mg Nystatin (Nystatin Oral Suspension -) 500,000 units PO Q6HPO [facility] Last Admin: 05/03/19 11:20 Dose: 500,000 units Prednisone (Deltasone -) 40 mg PO DAILY [facility] Last Admin: 05/03/19 10:12 Dose: 40 mg Sertraline HCl 50 mg/ (Sertraline HCl 25 mg) 75 mg PO DAILY [facility] Last Admin: 05/03/19 10:12 Dose: 75 mg Silver Sulfadiazine (Silvadene -) 1 applic TP BID [facility] Last Admin: 05/03/19 10:14 Dose: 1 applic Tiotropium [place] (Spiriva Respimat) 2 puff IH DAILY [facility] Last Admin: 05/03/19 10:16 Dose: 2 puff Zinc Oxide/Panthenol/Vitamin E (Balmex Cream -) 1 applic TP BID [facility] Last Admin: 05/03/19 10:13 Dose: 1 applic Vital Signs Period Temp Pulse Resp BP Sys/[place] Pulse Ox Last 24 Hr 97.4 F-98.2 F 103-110 20-22 114-122/69-76 98-98 Constitutional: Yes: Well Nourished, No Distress, Calm Cardiovascular: Yes: Regular Rate and Rhythm, S1, S2. No: JVD, Gallop, Murmur Respiratory: Yes: Regular, Rhonchi. No: Accessory Muscle Use Extremities: No: Cold Edema: No Neurological: Yes: Alert, Oriented Psychiatric: No: Agitated no jaundice diaphoresis Assessment/Plan echo 02/2019 tds, nl LV function, RV not well visualized, severe pulm HTN >60 mmHg RVSP stress echo 04/07: apical ischemia a.e. COPD, acute HFpEF, severe pulm HTN ? cor pulmonale - worsening sob, cxr w/o chf - steroids, BDs, suppl O2 per pulm - metoprolol dc'ed given prolonged, symptomatic airways dz sx's here, and EF has normalized elevated trop: - borderline trop, flat trend, not c/w acs - EKG no ischemic changes history of stress induced CM: with mild acute on chronic diastolic CHF exacerbation in setting of increased IVF - nl EF on echo 02/2019 - cont lisinopril. hold BB, as above (? contributing to copd sx's) DORIS on CKD: - baseline creat 1.4-1.9 - renal fxn improved here PSVT/PAT: - brief runs, off tele now - off metoprolol as above CAD: - +apical ischemia 03/2018 managed medically - no angina - cont aspirin, statin. 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
--- NOTE | 2019-05-03 16:59 | PN ---
Progress Note, Physician History of Present Illness: Pt had swallow eval Pt will have PEG in AM No Fever on Rocephen WBC better Pt looks dpressed - Current Medication List Current Medications: Active Medications Acetaminophen (Tylenol -) 650 mg PO Q4H PRN PRN Reason: PAIN LEVEL 1-5 Last Admin: 04/16/19 22:14 Dose: 650 mg Albuterol Sulfate (Ventolin 0.083% Nebulizer Soln -) 1 amp NEB RQID [facility] Last Admin: 05/03/19 15:22 Dose: 1 amp Albuterol Sulfate (Ventolin 0.083% Nebulizer Soln -) 1 amp NEB Q4H PRN PRN Reason: SHORT OF BREATH/WHEEZING Ascorbic Acid (Vitamin C -) 500 mg PO BID [facility] Last Admin: 05/03/19 10:12 Dose: 500 mg Budesonide/Formoterol Fumarate (Symbicort 160/4.5mcg -) 2 puff IH BID [facility] Last Admin: 05/03/19 10:16 Dose: 2 puff Carbidopa/Levodopa (Sinemet 25/100 -) 2 each PO TID [facility] Last Admin: 05/03/19 14:58 Dose: 2 each Ceftriaxone Sodium 1 gm/ (Dextrose) 50 mls @ 100 mls/hr IVPB DAILY [facility]; Protocol Last Admin: 05/03/19 10:13 Dose: 100 mls/hr Melatonin (Melatonin) 5 mg PO HS PRN PRN Reason: INSOMNIA Last Admin: 04/26/19 22:24 Dose: 5 mg Nystatin (Nystatin Oral Suspension -) 500,000 units PO Q6HPO [facility] Last Admin: 05/03/19 11:20 Dose: 500,000 units Prednisone (Deltasone -) 40 mg PO DAILY [facility] Last Admin: 05/03/19 10:12 Dose: 40 mg Sertraline HCl 50 mg/ (Sertraline HCl 25 mg) 75 mg PO DAILY [facility] Last Admin: 05/03/19 10:12 Dose: 75 mg Silver Sulfadiazine (Silvadene -) 1 applic TP BID [facility] Last Admin: 05/03/19 10:14 Dose: 1 applic Tiotropium [place] (Spiriva Respimat) 2 puff IH DAILY [facility] Last Admin: 05/03/19 10:16 Dose: 2 puff Zinc Oxide/Panthenol/Vitamin E (Balmex Cream -) 1 applic TP BID [facility] Last Admin: 05/03/19 10:13 Dose: 1 applic - Objective Vital Signs: Vital Signs Temperature 98.2 F 05/03/19 16:05 Pulse Rate 103 H 05/03/19 16:05 Respiratory Rate 22 H 05/03/19 16:05 Blood Pressure 122/76 05/03/19 16:05 O2 Sat by Pulse Oximetry (%) 98 05/03/19 09:00 Constitutional: Yes: Anxious Eyes: Yes: Conjunctiva Clear, EOM Intact HENT: Yes: Atraumatic, Normocephalic Neck: Yes: Supple, Trachea Midline Cardiovascular: Yes: Regular Rate and Rhythm, Bradycardia Respiratory: Yes: Regular, CTA Bilaterally Gastrointestinal: Yes: Normal Bowel Sounds, Soft Edema: No Peripheral Pulses WNL: Yes Labs: CBC, BMP 05/03/19 06:55 05/03/19 06:55 INR, PTT INR 1.03 (0.83-1.09) 04/06/19 19:45 Problem List - Problems (1) Pulmonary hypertension Code(s): I27.20 - PULMONARY HYPERTENSION, UNSPECIFIED (2) GERD (gastroesophageal reflux disease) Code(s): K21.9 - GASTRO-ESOPHAGEAL REFLUX DISEASE WITHOUT ESOPHAGITIS (3) Acute diastolic (congestive) heart failure Code(s): I50.31 - ACUTE DIASTOLIC (CONGESTIVE) HEART FAILURE (4) Acute exacerbation of chronic obstructive pulmonary disease Code(s): J44.1 - CHRONIC OBSTRUCTIVE PULMONARY DISEASE W (ACUTE) EXACERBATION (5) Acute hypoxemic respiratory failure Code(s): J96.01 - ACUTE RESPIRATORY FAILURE WITH HYPOXIA (6) Bipolar 1 disorder Code(s): F31.9 - BIPOLAR DISORDER, UNSPECIFIED (7) Bronchiectasis Code(s): J47.9 - BRONCHIECTASIS, UNCOMPLICATED (8) CHF (congestive heart failure), NYHA class II Code(s): I50.9 - HEART FAILURE, UNSPECIFIED (9) Chronic kidney disease (CKD) Code(s): N18.9 - CHRONIC KIDNEY DISEASE, UNSPECIFIED (10) Elevated troponin Code(s): R74.8 - ABNORMAL LEVELS OF OTHER SERUM ENZYMES (11) Emphysema of lung Code(s): J43.9 - EMPHYSEMA, UNSPECIFIED (12) Hypotension Code(s): I95.9 - HYPOTENSION, UNSPECIFIED (13) HTN (hypertension) Code(s): I10 - ESSENTIAL (PRIMARY) HYPERTENSION (14) Insomnia disorder Code(s): G47.00 - INSOMNIA, UNSPECIFIED Assessment/Plan (1) Pulmonary hypertension Code(s): I27.20 - PULMONARY HYPERTENSION, UNSPECIFIED (2) GERD (gastroesophageal reflux disease) Code(s): K21.9 - GASTRO-ESOPHAGEAL REFLUX DISEASE WITHOUT ESOPHAGITIS (3) Acute diastolic (congestive) heart failure Code(s): I50.31 - ACUTE DIASTOLIC (CONGESTIVE) HEART FAILURE (4) Acute exacerbation of chronic obstructive pulmonary disease Code(s): J44.1 - CHRONIC OBSTRUCTIVE PULMONARY DISEASE W (ACUTE) EXACERBATION (5) Acute hypoxemic respiratory failure Code(s): J96.01 - ACUTE RESPIRATORY FAILURE WITH HYPOXIA (6) Bipolar 1 disorder Code(s): F31.9 - BIPOLAR DISORDER, UNSPECIFIED (7) Bronchiectasis Code(s): J47.9 - BRONCHIECTASIS, UNCOMPLICATED (8) CHF (congestive heart failure), NYHA class II Code(s): I50.9 - HEART FAILURE, UNSPECIFIED (9) Chronic kidney disease (CKD) Code(s): N18.9 - CHRONIC KIDNEY DISEASE, UNSPECIFIED (10) Elevated troponin Code(s): R74.8 - ABNORMAL LEVELS OF OTHER SERUM ENZYMES (11) Emphysema of lung Code(s): J43.9 - EMPHYSEMA, UNSPECIFIED (12) Hypotension Code(s): I95.9 - HYPOTENSION, UNSPECIFIED (13) HTN (hypertension) Code(s): I10 - ESSENTIAL (PRIMARY) HYPERTENSION (14) Insomnia disorder Code(s): G47.00 - INSOMNIA, UNSPECIFIED Pt is not improving well Swallow eval By Kimberlyn Chikis Pt and Pt agreed for Peg Pt for PEG in AM
--- NOTE | 2019-05-03 20:47 | HOSP ---
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 Patient on antibiotics for COPD exacerbation/ Pneumonia, had speech consult poor po tolerance, pending Peg placement AM Received microblog from RN patient needs NG tube for contrast 6pm - 12 N, after NPO. Rn attempted however coiled. NGTT 16f inserted pt tolerated well, order STAT CXR for placement, once confirm RN instructed to provide contrast. No acute distress/ sob noted. GEN: NAD CV: S1/S2 Resp: noted wheezing b/l abd: soft, NT/ND, BS+ neuro: awake,alert A/P NGT placed STAT CXR ordered Physical Examination Vital Signs: Vital Signs Temperature 99.1 F 05/03/19 17:27 Pulse Rate 108 H 05/03/19 17:27 Respiratory Rate 20 05/03/19 17:27 Blood Pressure 126/78 05/03/19 17:27 O2 Sat by Pulse Oximetry (%) 98 05/03/19 09:00 Labs: CBC, BMP 05/03/19 06:55 05/03/19 06:55
[2019-05-04] MEDS ORDERED: PT OWN MED DRAWER 7, Y5N ONE (02:16)
[2019-05-04] MEDS: NYSTATIN 500,000 UNITS/5 ML SUSPENSION PO SCH ×3 (05:06→18:28)
[2019-05-04] MEDS: CARBIDOPA/LEVODOPA 25/100 TABLET (FP) PO SCH ×3 (05:06→22:35)
[2019-05-04 08:33] LABS: BASO % 0.3 % (0-2.0); EOS % 0.2 % (0-4.5); HEMATOCRIT 30.6 % (35.4-49); HEMOGLOBIN 10.4 GM/dL (11.7-16.9); LYMPH % 4.1 % (8-40); MCH 32.9 pg (25.7-33.7); MEAN CELL VOLUME 96.7 fl (80-96); MEAN PLT VOLUME 8.6 fl (7.5-11.1); MONO % 3.4 % (3.8-10.2); PLATELET COUNT 167 K/MM3 (134-434); RBC 3.16 M/mm3 (4.00-5.60); RDW 16.3 % (11.9-15.9); WHITE BLOOD COUNT 14.2 K/mm3 (4.0-10.0)
[2019-05-04 08:46] LABS: INR 1.14 (0.83-1.09); PROTHROMBIN TIME (PATIENT) 13.5 SEC (9.7-13.0)
[2019-05-04] MEDS: ALBUTEROL SO4 0.083% IH SOL 2.5 MG/3 ML VIAL.NEB. NEB SCH ×4 (08:59→20:52)
[2019-05-04 09:02] LABS: BLOOD UREA NITROGEN 50.2 mg/dL (7-18); CALCIUM 8.2 mg/dL (8.5-10.1); CREATININE 0.7 mg/dL (0.55-1.3); POTASSIUM 3.7 mmol/L (3.5-5.1)
[2019-05-04] MEDS: ZINC OXIDE/PANTHENOL/VITAMIN E 56 GM TUBE TP SCH ×2 (10:00→22:37)
[2019-05-04] MEDS: SILVER SULFADIAZINE 1% TOP CREAM 50 GM JAR TP SCH ×2 (10:00→22:38)
--- NOTE | 2019-05-04 10:26 | PN ---
Progress Note (short form) - Note Progress Note: PULMONARY Denies shortness of breath. No fevers recorded. Vital Signs Period Temp Pulse Resp BP Sys/[place] Pulse Ox Last 24 Hr 97.6 F-99.1 F 102-114 20-22 118-147/66-79 95 Gen: NAD at rest Heart: RRR Lung: bilateral rhonchi Abd: soft, nontender Ext: no edema CBC, BMP 05/04/19 07:30 05/04/19 07:30 Active Medications Acetaminophen (Tylenol -) 650 mg PO Q4H PRN PRN Reason: PAIN LEVEL 1-5 Last Admin: 04/16/19 22:14 Dose: 650 mg Albuterol Sulfate (Ventolin 0.083% Nebulizer Soln -) 1 amp NEB RQID [facility] Last Admin: 05/04/19 08:59 Dose: 1 amp Albuterol Sulfate (Ventolin 0.083% Nebulizer Soln -) 1 amp NEB Q4H PRN PRN Reason: SHORT OF BREATH/WHEEZING Ascorbic Acid (Vitamin C -) 500 mg PO BID [facility] Last Admin: 05/03/19 23:41 Dose: 500 mg Budesonide/Formoterol Fumarate (Symbicort 160/4.5mcg -) 2 puff IH BID [facility] Last Admin: 05/03/19 23:42 Dose: 2 puff Carbidopa/Levodopa (Sinemet 25/100 -) 2 each PO TID [facility] Last Admin: 05/04/19 05:06 Dose: Not Given Ceftriaxone Sodium 1 gm/ (Dextrose) 50 mls @ 100 mls/hr IVPB DAILY [facility]; Protocol Last Admin: 05/03/19 10:13 Dose: 100 mls/hr Melatonin (Melatonin) 5 mg PO HS PRN PRN Reason: INSOMNIA Last Admin: 04/26/19 22:24 Dose: 5 mg Nystatin (Nystatin Oral Suspension -) 500,000 units PO Q6HPO [facility] Last Admin: 05/04/19 05:06 Dose: Not Given Prednisone (Deltasone -) 40 mg PO DAILY [facility] Last Admin: 05/03/19 10:12 Dose: 40 mg Sertraline HCl 50 mg/ (Sertraline HCl 25 mg) 75 mg PO DAILY [facility] Last Admin: 05/03/19 10:12 Dose: 75 mg Silver Sulfadiazine (Silvadene -) 1 applic TP BID [facility] Last Admin: 05/03/19 23:42 Dose: 1 applic Tiotropium [place] (Spiriva Respimat) 2 puff IH DAILY [facility] Last Admin: 05/03/19 10:16 Dose: 2 puff Zinc Oxide/Panthenol/Vitamin E (Balmex Cream -) 1 applic TP BID [facility] Last Admin: 05/03/19 23:42 Dose: 1 applic A/P Acute COPD Exacerbation Chronic Hypoxic Respiratory Failure Severe Pulmonary HTN CAD Hyponatremia HTN Malnutrition - slow prednisone taper - inhaled bronchodilators standing and PRN - symbicort, spiriva - O2 to keep SpO2 >90% - monitor lytes - DVT prophylaxis - poor overall prognosis, recommend palliative/comfort measures Problem List - Problems (1) COPD exacerbation Code(s): J44.1 - CHRONIC OBSTRUCTIVE PULMONARY DISEASE W (ACUTE) EXACERBATION
[2019-05-04 11:19] VITALS: BMI 19.3
[2019-05-04 11:21] LABS: ANISOCYTOSIS 2+; MACROCYTOSIS 0; OVALOCYTE 1+; PLATELET ESTIMATE NORMAL; TEAR DROP CELLS 1+
--- NOTE | 2019-05-04 11:36 | PN ---
Progress Note, Physician History of Present Illness: stable says he is feeling better weakness - Current Medication List Current Medications: Active Medications Acetaminophen (Tylenol -) 650 mg PO Q4H PRN PRN Reason: PAIN LEVEL 1-5 Last Admin: 04/16/19 22:14 Dose: 650 mg Albuterol Sulfate (Ventolin 0.083% Nebulizer Soln -) 1 amp NEB RQID [facility] Last Admin: 05/04/19 08:59 Dose: 1 amp Albuterol Sulfate (Ventolin 0.083% Nebulizer Soln -) 1 amp NEB Q4H PRN PRN Reason: SHORT OF BREATH/WHEEZING Ascorbic Acid (Vitamin C -) 500 mg PO BID [facility] Last Admin: 05/03/19 23:41 Dose: 500 mg Budesonide/Formoterol Fumarate (Symbicort 160/4.5mcg -) 2 puff IH BID [facility] Last Admin: 05/03/19 23:42 Dose: 2 puff Carbidopa/Levodopa (Sinemet 25/100 -) 2 each PO TID [facility] Last Admin: 05/04/19 05:06 Dose: Not Given Ceftriaxone Sodium 1 gm/ (Dextrose) 50 mls @ 100 mls/hr IVPB DAILY [facility]; Protocol Last Admin: 05/03/19 10:13 Dose: 100 mls/hr Melatonin (Melatonin) 5 mg PO HS PRN PRN Reason: INSOMNIA Last Admin: 04/26/19 22:24 Dose: 5 mg Nystatin (Nystatin Oral Suspension -) 500,000 units PO Q6HPO [facility] Last Admin: 05/04/19 05:06 Dose: Not Given Prednisone (Deltasone -) 40 mg PO DAILY [facility] Last Admin: 05/03/19 10:12 Dose: 40 mg Sertraline HCl 50 mg/ (Sertraline HCl 25 mg) 75 mg PO DAILY [facility] Last Admin: 05/03/19 10:12 Dose: 75 mg Silver Sulfadiazine (Silvadene -) 1 applic TP BID [facility] Last Admin: 05/03/19 23:42 Dose: 1 applic Tiotropium [place] (Spiriva Respimat) 2 puff IH DAILY [facility] Last Admin: 05/03/19 10:16 Dose: 2 puff Zinc Oxide/Panthenol/Vitamin E (Balmex Cream -) 1 applic TP BID [facility] Last Admin: 01/13/20 23:42 Dose: 1 applic - Objective Vital Signs: Vital Signs Temperature 97.8 F 05/04/19 06:00 Pulse Rate 102 H 05/04/19 06:00 Respiratory Rate 20 05/04/19 06:00 Blood Pressure 139/79 05/04/19 06:00 O2 Sat by Pulse Oximetry (%) 95 05/03/19 21:00 Constitutional: Yes: No Distress, Calm Cardiovascular: Yes: S1, S2 Respiratory: Yes: Regular, CTA Bilaterally Gastrointestinal: Yes: Normal Bowel Sounds, Soft Musculoskeletal: Yes: WNL Extremities: Yes: Other Neurological: Yes: Alert, Oriented Psychiatric: Yes: Alert, Oriented Labs: CBC, BMP 05/04/19 07:30 05/04/19 07:30 INR, PTT INR 1.14 (0.83-1.09) H 05/04/19 07:30 Assessment/Plan Problem List - Problems (1) Pulmonary hypertension Code(s): I27.20 - PULMONARY HYPERTENSION, UNSPECIFIED (2) GERD (gastroesophageal reflux disease) Code(s): K21.9 - GASTRO-ESOPHAGEAL REFLUX DISEASE WITHOUT ESOPHAGITIS (3) Acute diastolic (congestive) heart failure Code(s): I50.31 - ACUTE DIASTOLIC (CONGESTIVE) HEART FAILURE (4) Acute exacerbation of chronic obstructive pulmonary disease Code(s): J44.1 - CHRONIC OBSTRUCTIVE PULMONARY DISEASE W (ACUTE) EXACERBATION (5) Acute hypoxemic respiratory failure Code(s): J96.01 - ACUTE RESPIRATORY FAILURE WITH HYPOXIA (6) Bipolar 1 disorder Code(s): F31.9 - BIPOLAR DISORDER, UNSPECIFIED (7) Bronchiectasis Code(s): J47.9 - BRONCHIECTASIS, UNCOMPLICATED (8) CHF (congestive heart failure), NYHA class II Code(s): I50.9 - HEART FAILURE, UNSPECIFIED (9) Chronic kidney disease (CKD) Code(s): N18.9 - CHRONIC KIDNEY DISEASE, UNSPECIFIED (10) Elevated troponin Code(s): R74.8 - ABNORMAL LEVELS OF OTHER SERUM ENZYMES (11) Emphysema of lung Code(s): J43.9 - EMPHYSEMA, UNSPECIFIED (12) Hypotension Code(s): I95.9 - HYPOTENSION, UNSPECIFIED (13) HTN (hypertension) Code(s): I10 - ESSENTIAL (PRIMARY) HYPERTENSION (14) Insomnia disorder Code(s): G47.00 - INSOMNIA, UNSPECIFIED plan continue to monitor nutrition avoid fluid overload resp support
--- NOTE | 2019-05-04 12:31 | PN ---
Progress Note, ACTIVITY SPECIALIST - Note Progress Note: PEG insertion today. continue po as desired and tolerated. Diet Consistency: Dysphagia Pureed Medication Administration: Crushed with applesauce Liquids: Thin Liquids (if cough noted, downgrade to nectar.) Supplement: Other (Trial ensure enlive? Pt dislikes Ensure compact)
--- NOTE | 2019-05-04 12:35 | EKG ---
Test Reason : Blood Pressure : / mmHG Vent. Rate : 102 BPM Atrial Rate : 102 BPM P-R Int : 194 ms QRS Dur : 094 ms QT Int : 336 ms P-R-T Axes : 078 -16 060 degrees QTc Int : 437 ms SINUS TACHYCARDIA WITH OCCASIONAL PREMATURE VENTRICULAR COMPLEXES AND FUSION COMPLEXES INDETERMINATE AXIS LOW VOLTAGE QRS INCOMPLETE RIGHT BUNDLE BRANCH BLOCK BORDERLINE ECG Confirmed by MD KAYLA, ENA ([id number]) on 05/04/2019 12:34:55 PM Referred By: Zachary AGUERO Confirmed By:ENA GARZA MD
[2019-05-04] MEDS ORDERED: SERTRALINE HCL 50 MG TABLET (FP) ONE (13:20)
[2019-05-04] MEDS ORDERED: SERTRALINE HCL 25 MG TABLET (FP) ONE (13:20)
[2019-05-04] MEDS ORDERED: DEXTROSE 5%-WATER - 50 ML IVPB ONE (13:21)
[2019-05-04] MEDS ORDERED: cefTRIAXone SODIUM 1 GM VIAL ONE (13:21)
[2019-05-04] MEDS: TIOTROPIUM BROMIDE 2.5 MCG (SPIRIVA) RESPIMAT INHALER IH SCH (13:26)
[2019-05-04] MEDS: BUDESONIDE/FORMETEROL FUMARATE 160/4.5 mcg INHALER IH SCH ×2 (13:26→22:38)
[2019-05-04] MEDS: SERTRALINE HCL 50 MG, SERTRALINE HCL 25 MG PO SCH (13:26)
[2019-05-04] MEDS: ASCORBIC ACID 500 MG TABLET (FP) PO SCH ×2 (13:26→22:36)
[2019-05-04] MEDS: ACETAMINOPHEN 325 MG TABLET (FP) PO PRN (13:27)
[2019-05-04] MEDS: CEFTRIAXONE 1 GM in DEXTROSE 5%-WATER - 50 ML IVPB SCH (13:27)
[2019-05-04] MEDS: predniSONE 20 MG TABLET (UD) PO SCH (13:27)
--- NOTE | 2019-05-04 14:49 | PN ---
Progress Note (short form) - Note Progress Note: Renal follow up for hyponatremia Seen and examined at the bedside awake and alert offers no acute complaints s/p PEG tube placement this am Vital Signs Temperature 97.8 F 05/04/19 06:00 Pulse Rate 104 H 05/04/19 12:53 Respiratory Rate 15 05/04/19 12:53 Blood Pressure 129/72 05/04/19 12:53 O2 Sat by Pulse Oximetry (%) 100 05/04/19 12:53 Intake & Output 05/01/19 05/02/19 05/03/19 05/04/19 23:59 23:59 23:59 23:59 Intake Total 920 250 350 Balance 920 250 350 Weight 57.379 kg 56.79 kg 57.153 kg 56.064 kg NAD Course BS soft NT/ND no LE edema, clubbing or cyanosis CBC, BMP 05/04/19 07:30 05/04/19 07:30 Current Medications Acetaminophen (Tylenol -) 650 mg PO Q4H PRN PRN Reason: PAIN LEVEL 1-5 Last Admin: 05/04/19 13:27 Dose: 650 mg Albuterol Sulfate (Ventolin 0.083% Nebulizer Soln -) 1 amp NEB RQID [facility] Last Admin: 05/04/19 12:14 Dose: Not Given Albuterol Sulfate (Ventolin 0.083% Nebulizer Soln -) 1 amp NEB Q4H PRN PRN Reason: SHORT OF BREATH/WHEEZING Ascorbic Acid (Vitamin C -) 500 mg PO BID [facility] Last Admin: 05/04/19 13:26 Dose: 500 mg Budesonide/Formoterol Fumarate (Symbicort 160/4.5mcg -) 2 puff IH BID [facility] Last Admin: 05/04/19 13:26 Dose: 2 puff Carbidopa/Levodopa (Sinemet 25/100 -) 2 each PO TID [facility] Last Admin: 05/04/19 13:27 Dose: 2 each Ceftriaxone Sodium 1 gm/ (Dextrose) 50 mls @ 100 mls/hr IVPB DAILY [facility]; Protocol Last Admin: 05/04/19 13:27 Dose: 100 mls/hr Melatonin (Melatonin) 5 mg PO HS PRN PRN Reason: INSOMNIA Last Admin: 04/26/19 22:24 Dose: 5 mg Nystatin (Nystatin Oral Suspension -) 500,000 units PO Q6HPO [facility] Last Admin: 05/04/19 13:27 Dose: 500,000 units Prednisone (Deltasone -) 40 mg PO DAILY [facility] Last Admin: 05/04/19 13:27 Dose: 40 mg Sertraline HCl 50 mg/ (Sertraline HCl 25 mg) 75 mg PO DAILY [facility] Last Admin: 05/04/19 13:26 Dose: 75 mg Silver Sulfadiazine (Silvadene -) 1 applic TP BID [facility] Last Admin: 05/03/19 23:42 Dose: 1 applic Tiotropium [place] (Spiriva Respimat) 2 puff IH DAILY [facility] Last Admin: 05/04/19 13:26 Dose: 2 puff Zinc Oxide/Panthenol/Vitamin E (Balmex Cream -) 1 applic TP BID [facility] Last Admin: 05/03/19 23:42 Dose: 1 applic 89 year old gentleman with history of COPD, Lung cancer, cardiomyopathy, CKD presented with cough and shortness of breath and noted to have worsening hyponatremia. 1. hyponatremia from poor solute intake + diuretics now resolved 2. Respiratory failure 3. Bronchitis 4. Leukocytosis 5. Mild hypernatremia from decreased oral fluid intake Renal function stable BUN elevated likely related to steroids use Na slightly elevated, encouraged oral water intake can plan on starting enteral nutrition and free water when feeding tube is ready to use. Zack Saleem DO
--- NOTE | 2019-05-04 17:29 | PN ---
Progress Note (short form) - Note Progress Note: 89 year old male history of HTN,COPD, CAD. Patient came for shortness of breath and has been treated with steroid and abx, pateint has difficulty with breathing. He also have history of parkinson disease diagnosed by Dr Gardner and he is taking sinemet 1 tab ( 25/100) tid. no new syptoms, and peg tube placement NEUROLOGICAL EXAMINATION Alert oriented x 2, neck is supple eomi, pupils reactive no face asymmetry moving all extremity there is bradykinesia and mild tremors were identified( more so on right side) sensation is normal , strength is normal Assessment/Plan 89 year old male history of HTN,COPD, CAD. He has history of PD for two yeas, and now on sinemet 25/100 two tab po tid. Plan: continue to watch on sinemet (25/100)two tab po tid - can be discharged from neurological point of view Thanking you so much Keegan Ko MD
--- NOTE | 2019-05-04 21:05 | PN ---
Progress Note, Physician History of Present Illness: Pt had PEG By IR Pt tolerated Procedure well No Fever No SOB No chest pain - Current Medication List Current Medications: Active Medications Acetaminophen (Tylenol -) 650 mg PO Q4H PRN PRN Reason: PAIN LEVEL 1-5 Last Admin: 05/04/19 13:27 Dose: 650 mg Albuterol Sulfate (Ventolin 0.083% Nebulizer Soln -) 1 amp NEB RQID [facility] Last Admin: 05/04/19 20:52 Dose: 1 amp Albuterol Sulfate (Ventolin 0.083% Nebulizer Soln -) 1 amp NEB Q4H PRN PRN Reason: SHORT OF BREATH/WHEEZING Ascorbic Acid (Vitamin C -) 500 mg PO BID [facility] Last Admin: 05/04/19 13:26 Dose: 500 mg Budesonide/Formoterol Fumarate (Symbicort 160/4.5mcg -) 2 puff IH BID [facility] Last Admin: 05/04/19 13:26 Dose: 2 puff Carbidopa/Levodopa (Sinemet 25/100 -) 2 each PO TID [facility] Last Admin: 05/04/19 13:27 Dose: 2 each Hydrocortisone (Hytone 1% Cream -) 1 applic TP BID [facility] Ceftriaxone Sodium 1 gm/ (Dextrose) 50 mls @ 100 mls/hr IVPB DAILY [facility]; Protocol Last Admin: 05/04/19 13:27 Dose: 100 mls/hr Melatonin (Melatonin) 5 mg PO HS PRN PRN Reason: INSOMNIA Last Admin: 04/26/19 22:24 Dose: 5 mg Nystatin (Nystatin Oral Suspension -) 500,000 units PO Q6HPO [facility] Last Admin: 05/04/19 18:28 Dose: Not Given Nystatin (Mycostatin Cream -) 1 applic TP BID [facility] Prednisone (Deltasone -) 40 mg PO DAILY [facility] Last Admin: 05/04/19 13:27 Dose: 40 mg Sertraline HCl 50 mg/ (Sertraline HCl 25 mg) 75 mg PO DAILY [facility] Last Admin: 05/04/19 13:26 Dose: 75 mg Silver Sulfadiazine (Silvadene -) 1 applic TP BID [facility] Last Admin: 05/04/19 10:00 Dose: 1 applic Tiotropium [place] (Spiriva Respimat) 2 puff IH DAILY [facility] Last Admin: 05/04/19 13:26 Dose: 2 puff Zinc Oxide/Panthenol/Vitamin E (Balmex Cream -) 1 applic TP BID [facility] Last Admin: 05/04/19 10:00 Dose: 1 applic - Objective Vital Signs: Vital Signs Temperature 97.6 F 05/04/19 16:30 Pulse Rate 102 H 05/04/19 16:30 Respiratory Rate 18 05/04/19 16:30 Blood Pressure 134/81 05/04/19 16:30 O2 Sat by Pulse Oximetry (%) 100 05/04/19 12:53 Constitutional: Yes: Anxious Eyes: Yes: Conjunctiva Clear, EOM Intact HENT: Yes: Atraumatic, Normocephalic Neck: Yes: Supple, Trachea Midline Cardiovascular: Yes: Regular Rate and Rhythm, S1, S2 Respiratory: Yes: Regular, CTA Bilaterally Labs: CBC, BMP 05/04/19 07:30 05/04/19 07:30 INR, PTT INR 1.14 (0.83-1.09) H 05/04/19 07:30 Problem List - Problems (1) Pulmonary hypertension Code(s): I27.20 - PULMONARY HYPERTENSION, UNSPECIFIED (2) GERD (gastroesophageal reflux disease) Code(s): K21.9 - GASTRO-ESOPHAGEAL REFLUX DISEASE WITHOUT ESOPHAGITIS (3) Acute diastolic (congestive) heart failure Code(s): I50.31 - ACUTE DIASTOLIC (CONGESTIVE) HEART FAILURE (4) Acute exacerbation of chronic obstructive pulmonary disease Code(s): J44.1 - CHRONIC OBSTRUCTIVE PULMONARY DISEASE W (ACUTE) EXACERBATION (5) Acute hypoxemic respiratory failure Code(s): J96.01 - ACUTE RESPIRATORY FAILURE WITH HYPOXIA (6) Bipolar 1 disorder Code(s): F31.9 - BIPOLAR DISORDER, UNSPECIFIED (7) Bronchiectasis Code(s): J47.9 - BRONCHIECTASIS, UNCOMPLICATED (8) CHF (congestive heart failure), NYHA class II Code(s): I50.9 - HEART FAILURE, UNSPECIFIED (9) Chronic kidney disease (CKD) Code(s): N18.9 - CHRONIC KIDNEY DISEASE, UNSPECIFIED (10) Elevated troponin Code(s): R74.8 - ABNORMAL LEVELS OF OTHER SERUM ENZYMES (11) Emphysema of lung Code(s): J43.9 - EMPHYSEMA, UNSPECIFIED (12) Hypotension Code(s): I95.9 - HYPOTENSION, UNSPECIFIED (13) HTN (hypertension) Code(s): I10 - ESSENTIAL (PRIMARY) HYPERTENSION (14) Insomnia disorder Code(s): G47.00 - INSOMNIA, UNSPECIFIED Assessment/Plan (1) Pulmonary hypertension Code(s): I27.20 - PULMONARY HYPERTENSION, UNSPECIFIED (2) GERD (gastroesophageal reflux disease) Code(s): K21.9 - GASTRO-ESOPHAGEAL REFLUX DISEASE WITHOUT ESOPHAGITIS (3) Acute diastolic (congestive) heart failure Code(s): I50.31 - ACUTE DIASTOLIC (CONGESTIVE) HEART FAILURE (4) Acute exacerbation of chronic obstructive pulmonary disease Code(s): J44.1 - CHRONIC OBSTRUCTIVE PULMONARY DISEASE W (ACUTE) EXACERBATION (5) Acute hypoxemic respiratory failure Code(s): J96.01 - ACUTE RESPIRATORY FAILURE WITH HYPOXIA (6) Bipolar 1 disorder Code(s): F31.9 - BIPOLAR DISORDER, UNSPECIFIED (7) Bronchiectasis Code(s): J47.9 - BRONCHIECTASIS, UNCOMPLICATED (8) CHF (congestive heart failure), NYHA class II Code(s): I50.9 - HEART FAILURE, UNSPECIFIED (9) Chronic kidney disease (CKD) Code(s): N18.9 - CHRONIC KIDNEY DISEASE, UNSPECIFIED (10) Elevated troponin Code(s): R74.8 - ABNORMAL LEVELS OF OTHER SERUM ENZYMES (11) Emphysema of lung Code(s): J43.9 - EMPHYSEMA, UNSPECIFIED (12) Hypotension Code(s): I95.9 - HYPOTENSION, UNSPECIFIED (13) HTN (hypertension) Code(s): I10 - ESSENTIAL (PRIMARY) HYPERTENSION (14) Insomnia disorder Code(s): G47.00 - INSOMNIA, UNSPECIFIED S/p PEG by IR Pt is doing well
[2019-05-04] MEDS: HYDROCORTISONE 1% TOPICAL CREAM 30 GM TUBE TP SCH (22:36)
[2019-05-04] MEDS: NYSTATIN 100,000 UNIT/GM TOPICAL CREAM 15 GM TUBE TP SCH (22:36)
[2019-05-05] MEDS: NYSTATIN 500,000 UNITS/5 ML SUSPENSION PO SCH ×5 (00:42→23:42)
[2019-05-05] MEDS: CARBIDOPA/LEVODOPA 25/100 TABLET (FP) PO SCH ×3 (06:41→21:55)
[2019-05-05] MEDS: ALBUTEROL SO4 0.083% IH SOL 2.5 MG/3 ML VIAL.NEB. NEB SCH ×4 (07:30→20:40)
[2019-05-05 08:00] LABS: BASO % 0.5 % (0-2.0); EOS % 0.1 % (0-4.5); HEMATOCRIT 30.6 % (35.4-49); HEMOGLOBIN 10.3 GM/dL (11.7-16.9); LYMPH % 3.9 % (8-40); MCH 32.8 pg (25.7-33.7); MCHC 33.5 g/dl (32.0-35.9); MEAN CELL VOLUME 97.7 fl (80-96); MEAN PLT VOLUME 8.7 fl (7.5-11.1); MONO % 4.1 % (3.8-10.2); NEUT % 91.4 % (42.8-82.8); PLATELET COUNT 188 K/MM3 (134-434); RBC 3.13 M/mm3 (4.00-5.60); RDW 16.5 % (11.9-15.9); WHITE BLOOD COUNT 13.5 K/mm3 (4.0-10.0)
[2019-05-05 08:25] LABS: BLOOD UREA NITROGEN 49.9 mg/dL (7-18); CALCIUM 8.5 mg/dL (8.5-10.1); CREATININE 0.7 mg/dL (0.55-1.3); POTASSIUM 4.1 mmol/L (3.5-5.1)
--- NOTE | 2019-05-05 08:50 | PN ---
Progress Note, Physician History of Present Illness: patient very weak with peg - Current Medication List Current Medications: Active Medications Acetaminophen (Tylenol -) 650 mg PO Q4H PRN PRN Reason: PAIN LEVEL 1-5 Last Admin: 05/04/19 13:27 Dose: 650 mg Albuterol Sulfate (Ventolin 0.083% Nebulizer Soln -) 1 amp NEB RQID [facility] Last Admin: 05/04/19 20:52 Dose: 1 amp Albuterol Sulfate (Ventolin 0.083% Nebulizer Soln -) 1 amp NEB Q4H PRN PRN Reason: SHORT OF BREATH/WHEEZING Ascorbic Acid (Vitamin C -) 500 mg PO BID [facility] Last Admin: 05/04/19 22:36 Dose: 500 mg Budesonide/Formoterol Fumarate (Symbicort 160/4.5mcg -) 2 puff IH BID [facility] Last Admin: 05/04/19 22:38 Dose: 2 puff Carbidopa/Levodopa (Sinemet 25/100 -) 2 each PO TID [facility] Last Admin: 05/05/19 06:41 Dose: 2 each Hydrocortisone (Hytone 1% Cream -) 1 applic TP BID [facility] Last Admin: 05/04/19 22:36 Dose: 1 applic Ceftriaxone Sodium 1 gm/ (Dextrose) 50 mls @ 100 mls/hr IVPB DAILY [facility]; Protocol Last Admin: 05/04/19 13:27 Dose: 100 mls/hr Melatonin (Melatonin) 5 mg PO HS PRN PRN Reason: INSOMNIA Last Admin: 04/26/19 22:24 Dose: 5 mg Nystatin (Nystatin Oral Suspension -) 500,000 units PO Q6HPO [facility] Last Admin: 05/05/19 06:41 Dose: 500,000 units Nystatin (Mycostatin Cream -) 1 applic TP BID [facility] Last Admin: 05/04/19 22:36 Dose: 1 applic Prednisone (Deltasone -) 40 mg PO DAILY [facility] Last Admin: 05/04/19 13:27 Dose: 40 mg Sertraline HCl 50 mg/ (Sertraline HCl 25 mg) 75 mg PO DAILY [facility] Last Admin: 05/04/19 13:26 Dose: 75 mg Silver Sulfadiazine (Silvadene -) 1 applic TP BID [facility] Last Admin: 05/04/19 22:38 Dose: 1 applic Tiotropium [place] (Spiriva Respimat) 2 puff IH DAILY [facility] Last Admin: 05/04/19 13:26 Dose: 2 puff Zinc Oxide/Panthenol/Vitamin E (Balmex Cream -) 1 applic TP BID [facility] Last Admin: 05/04/19 22:37 Dose: 1 applic - Objective Vital Signs: Vital Signs Temperature 97.8 F 05/05/19 06:00 Pulse Rate 104 H 05/05/19 06:00 Respiratory Rate 05/05/19 06:00 Blood Pressure 128/70 05/05/19 06:00 O2 Sat by Pulse Oximetry (%) 99 05/04/19 21:00 Constitutional: Yes: No Distress, Calm Cardiovascular: Yes: S1, S2 Respiratory: Yes: Regular, CTA Bilaterally Gastrointestinal: Yes: Normal Bowel Sounds, Soft Musculoskeletal: Yes: WNL Extremities: Yes: Other Neurological: Yes: Alert, Oriented Psychiatric: Yes: Alert Labs: CBC, BMP 05/05/19 06:25 05/05/19 06:25 INR, PTT INR 1.14 (0.83-1.09) H 05/04/19 07:30 Assessment/Plan Problem List - Problems (1) Pulmonary hypertension Code(s): I27.20 - PULMONARY HYPERTENSION, UNSPECIFIED (2) GERD (gastroesophageal reflux disease) Code(s): K21.9 - GASTRO-ESOPHAGEAL REFLUX DISEASE WITHOUT ESOPHAGITIS (3) Acute diastolic (congestive) heart failure Code(s): I50.31 - ACUTE DIASTOLIC (CONGESTIVE) HEART FAILURE (4) Acute exacerbation of chronic obstructive pulmonary disease Code(s): J44.1 - CHRONIC OBSTRUCTIVE PULMONARY DISEASE W (ACUTE) EXACERBATION (5) Acute hypoxemic respiratory failure Code(s): J96.01 - ACUTE RESPIRATORY FAILURE WITH HYPOXIA (6) Bipolar 1 disorder Code(s): F31.9 - BIPOLAR DISORDER, UNSPECIFIED (7) Bronchiectasis Code(s): J47.9 - BRONCHIECTASIS, UNCOMPLICATED (8) CHF (congestive heart failure), NYHA class II Code(s): I50.9 - HEART FAILURE, UNSPECIFIED (9) Chronic kidney disease (CKD) Code(s): N18.9 - CHRONIC KIDNEY DISEASE, UNSPECIFIED (10) Elevated troponin Code(s): R74.8 - ABNORMAL LEVELS OF OTHER SERUM ENZYMES (11) Emphysema of lung Code(s): J43.9 - EMPHYSEMA, UNSPECIFIED (12) Hypotension Code(s): I95.9 - HYPOTENSION, UNSPECIFIED (13) HTN (hypertension) Code(s): I10 - ESSENTIAL (PRIMARY) HYPERTENSION (14) Insomnia disorder Code(s): G47.00 - INSOMNIA, UNSPECIFIED plan continue to monitor nutrition avoid fluid overload resp support
--- NOTE | 2019-05-05 09:51 | PN ---
Progress Note (short form) - Note Progress Note: PULMONARY s/p PEG placement. Denies shortness of breath. No fevers recorded. Vital Signs Period Temp Pulse Resp BP Sys/[place] Pulse Ox Last 24 Hr 97.6 F-97.8 F 101-107 15- 128-135/69-85 99-100 Gen: NAD at rest Heart: RRR Lung: bilateral rhonchi Abd: soft, nontender Ext: no edema CBC, BMP 05/05/19 06:25 05/05/19 06:25 Active Medications Acetaminophen (Tylenol -) 650 mg PO Q4H PRN PRN Reason: PAIN LEVEL 1-5 Last Admin: 05/04/19 13:27 Dose: 650 mg Albuterol Sulfate (Ventolin 0.083% Nebulizer Soln -) 1 amp NEB RQID [facility] Last Admin: 05/05/19 07:30 Dose: 1 amp Albuterol Sulfate (Ventolin 0.083% Nebulizer Soln -) 1 amp NEB Q4H PRN PRN Reason: SHORT OF BREATH/WHEEZING Ascorbic Acid (Vitamin C -) 500 mg PO BID [facility] Last Admin: 05/04/19 22:36 Dose: 500 mg Budesonide/Formoterol Fumarate (Symbicort 160/4.5mcg -) 2 puff IH BID [facility] Last Admin: 05/04/19 22:38 Dose: 2 puff Carbidopa/Levodopa (Sinemet 25/100 -) 2 each PO TID [facility] Last Admin: 05/05/19 06:41 Dose: 2 each Hydrocortisone (Hytone 1% Cream -) 1 applic TP BID [facility] Last Admin: 05/04/19 22:36 Dose: 1 applic Ceftriaxone Sodium 1 gm/ (Dextrose) 50 mls @ 100 mls/hr IVPB DAILY [facility]; Protocol Last Admin: 05/04/19 13:27 Dose: 100 mls/hr Melatonin (Melatonin) 5 mg PO HS PRN PRN Reason: INSOMNIA Last Admin: 04/26/19 22:24 Dose: 5 mg Nystatin (Nystatin Oral Suspension -) 500,000 units PO Q6HPO [facility] Last Admin: 05/05/19 06:41 Dose: 500,000 units Nystatin (Mycostatin Cream -) 1 applic TP BID [facility] Last Admin: 05/04/19 22:36 Dose: 1 applic Prednisone (Deltasone -) 40 mg PO DAILY [facility] Last Admin: 05/04/19 13:27 Dose: 40 mg Sertraline HCl 50 mg/ (Sertraline HCl 25 mg) 75 mg PO DAILY [facility] Last Admin: 05/04/19 13:26 Dose: 75 mg Silver Sulfadiazine (Silvadene -) 1 applic TP BID [facility] Last Admin: 05/04/19 22:38 Dose: 1 applic Tiotropium [place] (Spiriva Respimat) 2 puff IH DAILY [facility] Last Admin: 05/04/19 13:26 Dose: 2 puff Zinc Oxide/Panthenol/Vitamin E (Balmex Cream -) 1 applic TP BID [facility] Last Admin: 05/04/19 22:37 Dose: 1 applic A/P Acute COPD Exacerbation/End Stage COPD Chronic Hypoxic Respiratory Failure Severe Pulmonary HTN CAD Hyponatremia HTN Malnutrition - slow prednisone taper - inhaled bronchodilators standing and PRN - symbicort, spiriva - O2 to keep SpO2 >90% - monitor lytes - DVT prophylaxis - poor overall prognosis, recommend palliative/comfort measures Problem List - Problems (1) COPD exacerbation Code(s): J44.1 - CHRONIC OBSTRUCTIVE PULMONARY DISEASE W (ACUTE) EXACERBATION
[2019-05-05 09:55] LABS: ANISOCYTOSIS 0; MACROCYTOSIS 0; PLATELET ESTIMATE NORMAL
[2019-05-05] MEDS ORDERED: SERTRALINE HCL 25 MG TABLET (FP) ONE (11:15)
[2019-05-05] MEDS ORDERED: DEXTROSE 5%-WATER - 50 ML IVPB ONE (11:16)
[2019-05-05] MEDS ORDERED: SERTRALINE HCL 50 MG TABLET (FP) ONE (11:16)
[2019-05-05] MEDS ORDERED: cefTRIAXone SODIUM 1 GM VIAL ONE (11:16)
[2019-05-05] MEDS: CEFTRIAXONE 1 GM in DEXTROSE 5%-WATER - 50 ML IVPB SCH (11:19)
[2019-05-05] MEDS: ASCORBIC ACID 500 MG TABLET (FP) PO SCH ×2 (11:21→21:55)
[2019-05-05] MEDS: predniSONE 20 MG TABLET (UD) PO SCH (11:22)
[2019-05-05] MEDS: SERTRALINE HCL 50 MG, SERTRALINE HCL 25 MG PO SCH (11:22)
[2019-05-05] MEDS: BUDESONIDE/FORMETEROL FUMARATE 160/4.5 mcg INHALER IH SCH ×2 (11:23→21:58)
[2019-05-05] MEDS: TIOTROPIUM BROMIDE 2.5 MCG (SPIRIVA) RESPIMAT INHALER IH SCH (11:23)
[2019-05-05] MEDS: HYDROCORTISONE 1% TOPICAL CREAM 30 GM TUBE TP SCH ×2 (11:24→21:56)
[2019-05-05] MEDS: NYSTATIN 100,000 UNIT/GM TOPICAL CREAM 15 GM TUBE TP SCH ×2 (11:24→21:58)
[2019-05-05] MEDS: ZINC OXIDE/PANTHENOL/VITAMIN E 56 GM TUBE TP SCH ×2 (11:24→21:57)
[2019-05-05] MEDS: SILVER SULFADIAZINE 1% TOP CREAM 50 GM JAR TP SCH ×2 (11:24→21:57)
--- NOTE | 2019-05-05 14:57 | PN ---
Progress Note (short form) - Note Progress Note: s: still sob, no chest pain, palps, dizziness, edema. Current Medications Generic Name Dose Route Start Last Admin Trade Name Freq PRN Reason Stop Dose Admin Acetaminophen 650 mg 04/07/19 00:02 05/04/19 13:27 Tylenol - PO 650 mg Q4H PRN Administration PAIN LEVEL 1-5 Albuterol Sulfate 1 amp 05/03/19 12:00 05/05/19 11:39 Ventolin 0.083% Nebulizer Soln - NEB 1 amp RQID NADIA Administration Albuterol Sulfate 1 amp 05/03/19 10:28 Ventolin 0.083% Nebulizer Soln - NEB Q4H PRN SHORT OF BREATH/WHEEZING Ascorbic Acid 500 mg 04/07/19 22:00 05/05/19 11:21 Vitamin C - PO 500 mg BID NADIA Administration Budesonide/Formoterol Fumarate 2 puff 04/08/19 13:30 05/05/19 11:23 Symbicort 160/4.5mcg - IH 2 puff BID NADIA Administration Carbidopa/Levodopa 2 each 04/26/19 14:15 05/05/19 06:41 Sinemet 25/100 - PO 2 each TID NADIA Administration Hydrocortisone 1 applic 05/04/19 22:00 05/05/19 11:24 Hytone 1% Cream - TP 1 applic BID NADIA Administration Ceftriaxone Sodium 1 gm/ 50 mls @ 100 mls/hr 05/02/19 12:15 05/05/19 11:19 Dextrose IVPB 100 mls/hr DAILY NADIA Administration Protocol Melatonin 5 mg 04/17/19 04:26 04/26/19 22:24 Melatonin PO 5 mg HS PRN Administration INSOMNIA Nystatin 500,000 units 04/19/19 12:00 05/05/19 06:41 Nystatin Oral Suspension - PO 500,000 units Q6HPO NADIA Administration Nystatin 1 applic 05/04/19 22:00 05/05/19 11:24 Mycostatin Cream - TP 1 applic BID NADIA Administration Prednisone 40 mg 04/29/19 10:00 05/05/19 11:22 Deltasone - PO 40 mg DAILY NADIA Administration Sertraline HCl 50 mg/ 75 mg 04/16/19 10:00 05/05/19 11:22 Sertraline HCl 25 mg PO 75 mg DAILY NADIA Administration Silver Sulfadiazine 1 applic 04/07/19 22:00 05/05/19 11:24 Silvadene - TP 1 applic BID NADIA Administration Tiotropium [place] 2 puff 04/13/19 10:30 05/05/19 11:23 Spiriva Respimat IH 2 puff DAILY NADIA Administration Zinc Oxide/Panthenol/Vitamin E 1 applic 04/07/19 22:00 05/05/19 11:24 Balmex Cream - TP 1 applic BID NADIA Administration Vital Signs Period Temp Pulse Resp BP Sys/[place] Pulse Ox Last 24 Hr 97.6 F-97.8 F 101-104 18-22 128-135/69-81 99 Constitutional: Yes: Well Nourished, No Distress, Calm Cardiovascular: Yes: Regular Rate and Rhythm, S1, S2. No: JVD, Gallop, Murmur Respiratory: Yes: Regular, Rhonchi. No: Accessory Muscle Use Extremities: No: Cold Edema: No Neurological: Yes: Alert, Oriented Psychiatric: No: Agitated no jaundice diaphoresis CBC, BMP 05/05/19 06:25 05/05/19 06:25 Assessment/Plan echo 02/2019 tds, nl LV function, RV not well visualized, severe pulm HTN >60 mmHg RVSP stress echo 04/07: apical ischemia a.e. COPD, acute HFpEF, severe pulm HTN ? cor pulmonale - persistent sob, cxr w/o chf - steroids, BDs, suppl O2 per pulm - metoprolol dc'ed given prolonged, symptomatic airways dz sx's here, and EF has normalized elevated trop: - borderline trop, flat trend, not c/w acs - EKG no ischemic changes history of stress induced CM: with mild acute on chronic diastolic CHF exacerbation in setting of increased IVF - nl EF on echo 02/2019 - cont lisinopril. hold BB, as above (? contributing to copd sx's) DORIS on CKD: - baseline creat 1.4-1.9 - renal fxn improved here - now s/p PEG PSVT/PAT: - brief runs, off tele now - off metoprolol as above CAD: - +apical ischemia 03/2018 managed medically - no angina - cont aspirin, statin. 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
--- NOTE | 2019-05-05 15:00 | PN ---
Progress Note, Physician History of Present Illness: Pt is very weak spoke with Pt at bedside Peg tube feeding will be on - Current Medication List Current Medications: Active Medications Acetaminophen (Tylenol -) 650 mg PO Q4H PRN PRN Reason: PAIN LEVEL 1-5 Last Admin: 05/04/19 13:27 Dose: 650 mg Albuterol Sulfate (Ventolin 0.083% Nebulizer Soln -) 1 amp NEB RQID [facility] Last Admin: 05/05/19 11:39 Dose: 1 amp Albuterol Sulfate (Ventolin 0.083% Nebulizer Soln -) 1 amp NEB Q4H PRN PRN Reason: SHORT OF BREATH/WHEEZING Ascorbic Acid (Vitamin C -) 500 mg PO BID [facility] Last Admin: 05/05/19 11:21 Dose: 500 mg Budesonide/Formoterol Fumarate (Symbicort 160/4.5mcg -) 2 puff IH BID [facility] Last Admin: 05/05/19 11:23 Dose: 2 puff Carbidopa/Levodopa (Sinemet 25/100 -) 2 each PO TID [facility] Last Admin: 05/05/19 06:41 Dose: 2 each Hydrocortisone (Hytone 1% Cream -) 1 applic TP BID [facility] Last Admin: 05/05/19 11:24 Dose: 1 applic Ceftriaxone Sodium 1 gm/ (Dextrose) 50 mls @ 100 mls/hr IVPB DAILY [facility]; Protocol Last Admin: 05/05/19 11:19 Dose: 100 mls/hr Melatonin (Melatonin) 5 mg PO HS PRN PRN Reason: INSOMNIA Last Admin: 04/26/19 22:24 Dose: 5 mg Nystatin (Nystatin Oral Suspension -) 500,000 units PO Q6HPO [facility] Last Admin: 05/05/19 06:41 Dose: 500,000 units Nystatin (Mycostatin Cream -) 1 applic TP BID [facility] Last Admin: 05/05/19 11:24 Dose: 1 applic Prednisone (Deltasone -) 40 mg PO DAILY [facility] Last Admin: 05/05/19 11:22 Dose: 40 mg Sertraline HCl 50 mg/ (Sertraline HCl 25 mg) 75 mg PO DAILY [facility] Last Admin: 05/05/19 11:22 Dose: 75 mg Silver Sulfadiazine (Silvadene -) 1 applic TP BID [facility] Last Admin: 05/05/19 11:24 Dose: 1 applic Tiotropium [place] (Spiriva Respimat) 2 puff IH DAILY [facility] Last Admin: 05/05/19 11:23 Dose: 2 puff Zinc Oxide/Panthenol/Vitamin E (Balmex Cream -) 1 applic TP BID [facility] Last Admin: 05/05/19 11:24 Dose: 1 applic - Objective Vital Signs: Vital Signs Temperature 97.8 F 05/05/19 06:00 Pulse Rate 104 H 05/05/19 06:00 Respiratory Rate 05/05/19 06:00 Blood Pressure 128/70 05/05/19 06:00 O2 Sat by Pulse Oximetry (%) 99 05/04/19 21:00 Constitutional: Yes: No Distress Eyes: Yes: Conjunctiva Clear, EOM Intact HENT: Yes: Atraumatic, Normocephalic Neck: Yes: Supple, Trachea Midline Cardiovascular: Yes: Regular Rate and Rhythm, S1, S2 Respiratory: Yes: Regular, CTA Bilaterally Gastrointestinal: Yes: Normal Bowel Sounds, Soft Edema: No Peripheral Pulses WNL: Yes Labs: CBC, BMP 05/05/19 06:25 05/05/19 06:25 INR, PTT INR 1.14 (0.83-1.09) H 05/04/19 07:30 Problem List - Problems (1) Pulmonary hypertension Code(s): I27.20 - PULMONARY HYPERTENSION, UNSPECIFIED (2) GERD (gastroesophageal reflux disease) Code(s): K21.9 - GASTRO-ESOPHAGEAL REFLUX DISEASE WITHOUT ESOPHAGITIS (3) Acute diastolic (congestive) heart failure Code(s): I50.31 - ACUTE DIASTOLIC (CONGESTIVE) HEART FAILURE (4) Acute exacerbation of chronic obstructive pulmonary disease Code(s): J44.1 - CHRONIC OBSTRUCTIVE PULMONARY DISEASE W (ACUTE) EXACERBATION (5) Acute hypoxemic respiratory failure Code(s): J96.01 - ACUTE RESPIRATORY FAILURE WITH HYPOXIA (6) Bipolar 1 disorder Code(s): F31.9 - BIPOLAR DISORDER, UNSPECIFIED (7) Bronchiectasis Code(s): J47.9 - BRONCHIECTASIS, UNCOMPLICATED (8) CHF (congestive heart failure), NYHA class II Code(s): I50.9 - HEART FAILURE, UNSPECIFIED (9) Chronic kidney disease (CKD) Code(s): N18.9 - CHRONIC KIDNEY DISEASE, UNSPECIFIED (10) Elevated troponin Code(s): R74.8 - ABNORMAL LEVELS OF OTHER SERUM ENZYMES (11) Emphysema of lung Code(s): J43.9 - EMPHYSEMA, UNSPECIFIED (12) Hypotension Code(s): I95.9 - HYPOTENSION, UNSPECIFIED (13) HTN (hypertension) Code(s): I10 - ESSENTIAL (PRIMARY) HYPERTENSION (14) Insomnia disorder Code(s): G47.00 - INSOMNIA, UNSPECIFIED Assessment/Plan (1) Pulmonary hypertension Code(s): I27.20 - PULMONARY HYPERTENSION, UNSPECIFIED (2) GERD (gastroesophageal reflux disease) Code(s): K21.9 - GASTRO-ESOPHAGEAL REFLUX DISEASE WITHOUT ESOPHAGITIS (3) Acute diastolic (congestive) heart failure Code(s): I50.31 - ACUTE DIASTOLIC (CONGESTIVE) HEART FAILURE (4) Acute exacerbation of chronic obstructive pulmonary disease Code(s): J44.1 - CHRONIC OBSTRUCTIVE PULMONARY DISEASE W (ACUTE) EXACERBATION (5) Acute hypoxemic respiratory failure Code(s): J96.01 - ACUTE RESPIRATORY FAILURE WITH HYPOXIA (6) Bipolar 1 disorder Code(s): F31.9 - BIPOLAR DISORDER, UNSPECIFIED (7) Bronchiectasis Code(s): J47.9 - BRONCHIECTASIS, UNCOMPLICATED (8) CHF (congestive heart failure), NYHA class II Code(s): I50.9 - HEART FAILURE, UNSPECIFIED (9) Chronic kidney disease (CKD) Code(s): N18.9 - CHRONIC KIDNEY DISEASE, UNSPECIFIED (10) Elevated troponin Code(s): R74.8 - ABNORMAL LEVELS OF OTHER SERUM ENZYMES (11) Emphysema of lung Code(s): J43.9 - EMPHYSEMA, UNSPECIFIED (12) Hypotension Code(s): I95.9 - HYPOTENSION, UNSPECIFIED (13) HTN (hypertension) Code(s): I10 - ESSENTIAL (PRIMARY) HYPERTENSION (14) Insomnia disorder Code(s): G47.00 - INSOMNIA, UNSPECIFIED S/p PEG by IR Pt is doing well Pt will start with feeding after clearence from IR
[2019-05-05] MEDS: ACETAMINOPHEN 325 MG TABLET (FP) PO PRN (15:19)
--- NOTE | 2019-05-05 16:58 | PN ---
Progress Note (short form) - Note Progress Note: Renal follow up for hyponatremia Seen and examined at the bedside awake and alert feels more short of breath today s/p PEG tube placement yesterday Vital Signs Temperature 97.3 F L 05/05/19 14:00 Pulse Rate 116 H 05/05/19 14:00 Respiratory Rate 05/05/19 14:00 Blood Pressure 117/71 05/05/19 14:00 O2 Sat by Pulse Oximetry (%) 99 05/04/19 21:00 Intake & Output 05/02/19 05/03/19 05/04/19 05/05/19 23:59 23:59 23:59 23:59 Intake Total 250 350 100 50 Balance 250 350 100 50 Weight 56.79 kg 57.153 kg 56.064 kg 56.336 kg NAD Course BS soft NT/ND no LE edema, clubbing or cyanosis CBC, BMP 05/05/19 06:25 05/05/19 06:25 Current Medications Acetaminophen (Tylenol -) 650 mg PO Q4H PRN PRN Reason: PAIN LEVEL 1-5 Last Admin: 05/05/19 15:19 Dose: 650 mg Albuterol Sulfate (Ventolin 0.083% Nebulizer Soln -) 1 amp NEB RQID [facility] Last Admin: 05/05/19 11:39 Dose: 1 amp Albuterol Sulfate (Ventolin 0.083% Nebulizer Soln -) 1 amp NEB Q4H PRN PRN Reason: SHORT OF BREATH/WHEEZING Ascorbic Acid (Vitamin C -) 500 mg PO BID [facility] Last Admin: 05/05/19 11:21 Dose: 500 mg Budesonide/Formoterol Fumarate (Symbicort 160/4.5mcg -) 2 puff IH BID [facility] Last Admin: 05/05/19 11:23 Dose: 2 puff Carbidopa/Levodopa (Sinemet 25/100 -) 2 each PO TID [facility] Last Admin: 05/05/19 15:19 Dose: 2 each Hydrocortisone (Hytone 1% Cream -) 1 applic TP BID [facility] Last Admin: 05/05/19 11:24 Dose: 1 applic Ceftriaxone Sodium 1 gm/ (Dextrose) 50 mls @ 100 mls/hr IVPB DAILY [facility]; Protocol Last Admin: 05/05/19 11:19 Dose: 100 mls/hr Melatonin (Melatonin) 5 mg PO HS PRN PRN Reason: INSOMNIA Last Admin: 04/26/19 22:24 Dose: 5 mg Nystatin (Nystatin Oral Suspension -) 500,000 units PO Q6HPO [facility] Last Admin: 05/05/19 15:21 Dose: 500,000 units Nystatin (Mycostatin Cream -) 1 applic TP BID [facility] Last Admin: 05/05/19 11:24 Dose: 1 applic Prednisone (Deltasone -) 40 mg PO DAILY [facility] Last Admin: 05/05/19 11:22 Dose: 40 mg Sertraline HCl 50 mg/ (Sertraline HCl 25 mg) 75 mg PO DAILY [facility] Last Admin: 05/05/19 11:22 Dose: 75 mg Silver Sulfadiazine (Silvadene -) 1 applic TP BID [facility] Last Admin: 05/05/19 11:24 Dose: 1 applic Tiotropium [place] (Spiriva Respimat) 2 puff IH DAILY [facility] Last Admin: 05/05/19 11:23 Dose: 2 puff Zinc Oxide/Panthenol/Vitamin E (Balmex Cream -) 1 applic TP BID [facility] Last Admin: 05/05/19 11:24 Dose: 1 applic 89 year old gentleman with history of COPD, Lung cancer, cardiomyopathy, CKD presented with cough and shortness of breath and noted to have worsening hyponatremia. 1. hyponatremia from poor solute intake + diuretics now resolved 2. Respiratory failure 3. Bronchitis 4. Leukocytosis 5. Mild hypernatremia from decreased oral fluid intake Renal function stable BUN elevated likely related to steroids use free water as tolerated via G-tube trend electrolytes daily Zack Saleem DO
--- NOTE | 2019-05-05 17:37 | PN ---
Progress Note (short form) - Note Progress Note: 89 year old male history of HTN,COPD, CAD. Patient came for shortness of breath and has been treated with steroid and abx, pateint has difficulty with breathing. He also have history of parkinson disease diagnosed by Dr Gardner and he is taking sinemet 1 tab ( 25/100) tid. no new syptoms, and had peg tube placement on may 04 NEUROLOGICAL EXAMINATION Alert oriented x 2, neck is supple eomi, pupils reactive no face asymmetry moving all extremity there is bradykinesia and mild tremors were identified( more so on right side) sensation is normal , strength is normal Assessment/Plan 89 year old male history of HTN,COPD, CAD. He has history of PD for two yeas, and now on sinemet 25/100 two tab po tid. s/p peg tube placement , and now seems to be more bright today. Plan: continue to watch on sinemet (25/100)two tab po tid - may need to go to Short term rehab, he seems to be deconditioned to go home Thanking you so much Keegan Ko MD
[2019-05-06] MEDS: NYSTATIN 500,000 UNITS/5 ML SUSPENSION PO SCH ×3 (05:34→17:56)
[2019-05-06] MEDS: CARBIDOPA/LEVODOPA 25/100 TABLET (FP) PO SCH ×3 (05:34→17:56)
[2019-05-06 07:43] LABS: BASO % 0.2 % (0-2.0); EOS % 0.1 % (0-4.5); HEMATOCRIT 32.7 % (35.4-49); LYMPH % 3.8 % (8-40); MCHC 33.5 g/dl (32.0-35.9); MEAN CELL VOLUME 98.5 fl (80-96); MEAN PLT VOLUME 8.9 fl (7.5-11.1); MONO % 4.4 % (3.8-10.2); NEUT % 91.5 % (42.8-82.8); PLATELET COUNT 266 K/MM3 (134-434); RBC 3.32 M/mm3 (4.00-5.60); RDW 16.3 % (11.9-15.9); WHITE BLOOD COUNT 15.3 K/mm3 (4.0-10.0)
[2019-05-06] MEDS: ALBUTEROL SO4 0.083% IH SOL 2.5 MG/3 ML VIAL.NEB. NEB SCH ×4 (07:50→20:50)
[2019-05-06 08:00] LABS: BLOOD UREA NITROGEN 66.1 mg/dL (7-18); CALCIUM 8.7 mg/dL (8.5-10.1); CREATININE 0.9 mg/dL (0.55-1.3); POTASSIUM 3.7 mmol/L (3.5-5.1)
[2019-05-06 09:22] LABS: ANISOCYTOSIS 0; MACROCYTOSIS 0; PLATELET ESTIMATE NORMAL
[2019-05-06] MEDS ORDERED: ASCORBIC ACID 500 MG/5 ML UNIT DOSE CUP PO SCH (09:37)
[2019-05-06] MEDS ORDERED: MELATONIN 5 MG TABLETS NR PRN (09:39)
--- NOTE | 2019-05-06 10:04 | PN ---
Progress Note (short form) - Note Progress Note: PULMONARY Breathing about the same. No fevers recorded. Vital Signs Period Temp Pulse Resp BP Sys/[place] Pulse Ox Last 24 Hr 97.3 F-98.3 F 109-126 20-22 117-144/71-81 99 Gen: NAD at rest Heart: RRR Lung: bilateral rhonchi Abd: soft, nontender Ext: no edema CBC, BMP 05/06/19 06:43 05/06/19 06:43 Active Medications Acetaminophen (Tylenol Oral Solution -) 650 mg GT Q4H PRN PRN Reason: PAIN LEVEL 1-5 Albuterol Sulfate (Ventolin 0.083% Nebulizer Soln -) 1 amp NEB RQID [facility] Last Admin: 05/06/19 07:50 Dose: 1 amp Albuterol Sulfate (Ventolin 0.083% Nebulizer Soln -) 1 amp NEB Q4H PRN PRN Reason: SHORT OF BREATH/WHEEZING Ascorbic Acid (Vitamin C Oral Solution -) 500 mg GT BID [facility] Budesonide/Formoterol Fumarate (Symbicort 160/4.5mcg -) 2 puff IH BID [facility] Last Admin: 05/05/19 21:58 Dose: 2 puff Carbidopa/Levodopa (Sinemet 25/100 -) 2 each PO 0700,1200,1700 [facility] Hydrocortisone (Hytone 1% Cream -) 1 applic TP BID [facility] Last Admin: 05/05/19 21:56 Dose: 1 applic Ceftriaxone Sodium 1 gm/ (Dextrose) 50 mls @ 100 mls/hr IVPB DAILY [facility]; Protocol Last Admin: 05/05/19 11:19 Dose: 100 mls/hr Melatonin (Melatonin) 5 mg NR HS PRN PRN Reason: INSOMNIA Nystatin (Nystatin Oral Suspension -) 500,000 units PO Q6HPO [facility] Last Admin: 05/06/19 05:34 Dose: 500,000 units Nystatin (Mycostatin Cream -) 1 applic TP BID [facility] Last Admin: 05/05/19 21:58 Dose: 1 applic Prednisone (Deltasone -) 40 mg GT DAILY [facility] Sertraline HCl 50 mg/ (Sertraline HCl 25 mg) 75 mg GT DAILY [facility] Silver Sulfadiazine (Silvadene -) 1 applic TP BID [facility] Last Admin: 05/05/19 21:57 Dose: 1 applic Tiotropium [place] (Spiriva Respimat) 2 puff IH DAILY [facility] Last Admin: 05/05/19 11:23 Dose: 2 puff Zinc Oxide/Panthenol/Vitamin E (Balmex Cream -) 1 applic TP BID [facility] Last Admin: 05/05/19 21:57 Dose: 1 applic A/P Acute COPD Exacerbation/End Stage COPD Chronic Hypoxic Respiratory Failure Severe Pulmonary HTN CAD Hyponatremia HTN Malnutrition - slow prednisone taper - inhaled bronchodilators standing and PRN - symbicort, spiriva - O2 to keep SpO2 >90% - monitor lytes - DVT prophylaxis - poor overall prognosis, recommend palliative/comfort measures Problem List - Problems (1) COPD exacerbation Code(s): J44.1 - CHRONIC OBSTRUCTIVE PULMONARY DISEASE W (ACUTE) EXACERBATION
[2019-05-06] MEDS ORDERED: SERTRALINE HCL 50 MG TABLET (FP) ONE (10:34)
[2019-05-06] MEDS ORDERED: SERTRALINE HCL 25 MG TABLET (FP) ONE (10:34)
[2019-05-06] MEDS ORDERED: cefTRIAXone SODIUM 1 GM VIAL ONE (10:35)
[2019-05-06] MEDS ORDERED: PT OWN MED DRAWER 7, Y5N ONE ×3 (10:35→21:50)
[2019-05-06] MEDS ORDERED: DEXTROSE 5%-WATER - 50 ML IVPB ONE (10:36)
[2019-05-06] MEDS: predniSONE 20 MG TABLET (UD) GT SCH (10:45)
[2019-05-06] MEDS: ASCORBIC ACID 500 MG/5 ML UNIT DOSE CUP GT SCH ×2 (10:45→22:53)
[2019-05-06] MEDS: SERTRALINE HCL 50 MG, SERTRALINE HCL 25 MG GT SCH (10:45)
[2019-05-06] MEDS: SILVER SULFADIAZINE 1% TOP CREAM 50 GM JAR TP SCH ×2 (10:47→22:54)
[2019-05-06] MEDS: TIOTROPIUM BROMIDE 2.5 MCG (SPIRIVA) RESPIMAT INHALER IH SCH (10:47)
[2019-05-06] MEDS: BUDESONIDE/FORMETEROL FUMARATE 160/4.5 mcg INHALER IH SCH ×2 (10:48→22:53)
[2019-05-06] MEDS: NYSTATIN 100,000 UNIT/GM TOPICAL CREAM 15 GM TUBE TP SCH ×2 (10:49→22:55)
[2019-05-06] MEDS: ZINC OXIDE/PANTHENOL/VITAMIN E 56 GM TUBE TP SCH ×2 (10:49→22:54)
[2019-05-06] MEDS: HYDROCORTISONE 1% TOPICAL CREAM 30 GM TUBE TP SCH ×2 (10:49→22:55)
[2019-05-06] MEDS: CEFTRIAXONE 1 GM in DEXTROSE 5%-WATER - 50 ML IVPB SCH (10:58)
--- NOTE | 2019-05-06 12:12 | PN ---
Progress Note, Physician - Current Medication List Current Medications: Active Medications Acetaminophen (Tylenol Oral Solution -) 650 mg GT Q4H PRN PRN Reason: PAIN LEVEL 1-5 Albuterol Sulfate (Ventolin 0.083% Nebulizer Soln -) 1 amp NEB RQID [facility] Last Admin: 05/06/19 11:44 Dose: 1 amp Albuterol Sulfate (Ventolin 0.083% Nebulizer Soln -) 1 amp NEB Q4H PRN PRN Reason: SHORT OF BREATH/WHEEZING Ascorbic Acid (Vitamin C Oral Solution -) 500 mg GT BID [facility] Last Admin: 05/06/19 10:45 Dose: 500 mg Budesonide/Formoterol Fumarate (Symbicort 160/4.5mcg -) 2 puff IH BID [facility] Last Admin: 05/06/19 10:48 Dose: 2 puff Carbidopa/Levodopa (Sinemet 25/100 -) 2 each PO 0700,1200,1700 [facility] Hydrocortisone (Hytone 1% Cream -) 1 applic TP BID [facility] Last Admin: 05/06/19 10:49 Dose: 1 applic Ceftriaxone Sodium 1 gm/ (Dextrose) 50 mls @ 100 mls/hr IVPB DAILY [facility]; Protocol Last Admin: 05/06/19 10:58 Dose: 100 mls/hr Melatonin (Melatonin) 5 mg NR HS PRN PRN Reason: INSOMNIA Nystatin (Nystatin Oral Suspension -) 500,000 units PO Q6HPO [facility] Last Admin: 05/06/19 05:34 Dose: 500,000 units Nystatin (Mycostatin Cream -) 1 applic TP BID [facility] Last Admin: 05/06/19 10:49 Dose: 1 applic Prednisone (Deltasone -) 40 mg GT DAILY [facility] Last Admin: 05/06/19 10:45 Dose: 40 mg Sertraline HCl 50 mg/ (Sertraline HCl 25 mg) 75 mg GT DAILY [facility] Last Admin: 05/06/19 10:45 Dose: 75 mg Silver Sulfadiazine (Silvadene -) 1 applic TP BID [facility] Last Admin: 05/06/19 10:47 Dose: 1 applic Tiotropium [place] (Spiriva Respimat) 2 puff IH DAILY [facility] Last Admin: 05/06/19 10:47 Dose: 2 puff Zinc Oxide/Panthenol/Vitamin E (Balmex Cream -) 1 applic TP BID [facility] Last Admin: 05/06/19 10:49 Dose: 1 applic - Objective Vital Signs: Vital Signs Temperature 97.5 F L 05/06/19 07:50 Pulse Rate 109 H 05/06/19 07:50 Respiratory Rate 20 05/06/19 07:50 Blood Pressure 127/78 05/06/19 07:50 O2 Sat by Pulse Oximetry (%) 99 05/05/19 21:00 Labs: CBC, BMP 05/06/19 06:43 05/06/19 06:43 INR, PTT INR 1.14 (0.83-1.09) H 05/04/19 07:30
--- NOTE | 2019-05-06 16:31 | PN ---
Progress Note (short form) - Note Progress Note: s: lethargic, not answering questions Current Medications Acetaminophen (Tylenol Oral Solution -) 650 mg GT Q4H PRN PRN Reason: PAIN LEVEL 1-5 Albuterol Sulfate (Ventolin 0.083% Nebulizer Soln -) 1 amp NEB RQID [facility] Last Admin: 05/06/19 15:25 Dose: Not Given Albuterol Sulfate (Ventolin 0.083% Nebulizer Soln -) 1 amp NEB Q4H PRN PRN Reason: SHORT OF BREATH/WHEEZING Ascorbic Acid (Vitamin C Oral Solution -) 500 mg GT BID [facility] Last Admin: 05/06/19 10:45 Dose: 500 mg Budesonide/Formoterol Fumarate (Symbicort 160/4.5mcg -) 2 puff IH BID [facility] Last Admin: 05/06/19 10:48 Dose: 2 puff Carbidopa/Levodopa (Sinemet 25/100 -) 2 each PO 0700,1200,1700 [facility] Last Admin: 05/06/19 12:48 Dose: 2 each Hydrocortisone (Hytone 1% Cream -) 1 applic TP BID [facility] Last Admin: 05/06/19 10:49 Dose: 1 applic Ceftriaxone Sodium 1 gm/ (Dextrose) 50 mls @ 100 mls/hr IVPB DAILY [facility]; Protocol Last Admin: 05/06/19 10:58 Dose: 100 mls/hr Melatonin (Melatonin) 5 mg NR HS PRN PRN Reason: INSOMNIA Nystatin (Nystatin Oral Suspension -) 500,000 units PO Q6HPO [facility] Last Admin: 05/06/19 12:48 Dose: 500,000 units Nystatin (Mycostatin Cream -) 1 applic TP BID [facility] Last Admin: 05/06/19 10:49 Dose: 1 applic Prednisone (Deltasone -) 40 mg GT DAILY [facility] Last Admin: 05/06/19 10:45 Dose: 40 mg Sertraline HCl 50 mg/ (Sertraline HCl 25 mg) 75 mg GT DAILY [facility] Last Admin: 05/06/19 10:45 Dose: 75 mg Silver Sulfadiazine (Silvadene -) 1 applic TP BID [facility] Last Admin: 05/06/19 10:47 Dose: 1 applic Tiotropium [place] (Spiriva Respimat) 2 puff IH DAILY [facility] Last Admin: 05/06/19 10:47 Dose: 2 puff Zinc Oxide/Panthenol/Vitamin E (Balmex Cream -) 1 applic TP BID [facility] Last Admin: 05/06/19 10:49 Dose: 1 applic Vital Signs Period Temp Pulse Resp BP Sys/[place] Pulse Ox Last 24 Hr 97.5 F-98.3 F 108-126 20-22 125-144/74-81 99 Constitutional: Yes: Well Nourished, No Distress, Calm Cardiovascular: Yes: Regular Rate and Rhythm, S1, S2. No: JVD, Gallop, Murmur Respiratory: Yes: Regular, Rhonchi. No: Accessory Muscle Use Extremities: No: Cold Edema: No Neurological: Yes: Alert, Oriented Psychiatric: No: Agitated no jaundice diaphoresis Assessment/Plan echo 02/2019 tds, nl LV function, RV not well visualized, severe pulm HTN >60 mmHg RVSP stress echo 04/07: apical ischemia a.e. COPD, acute HFpEF, severe pulm HTN ? cor pulmonale - persistent sob, cxr w/o chf - steroids, BDs, suppl O2 per pulm - metoprolol dc'ed given prolonged, symptomatic airways dz sx's here, and EF has normalized elevated trop: - borderline trop, flat trend, not c/w acs - EKG no ischemic changes history of stress induced CM: with mild acute on chronic diastolic CHF exacerbation in setting of increased IVF - nl EF on echo 02/2019 - lisinopril held. holding BB, as above (? contributing to copd sx's) DORIS on CKD: - baseline creat 1.4-1.9 - renal fxn improved here - now s/p PEG PSVT/PAT: - brief runs, off tele now - off metoprolol as above CAD: - +apical ischemia 03/2018 managed medically - no angina - cont aspirin, statin. 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
--- NOTE | 2019-05-06 17:12 | PN ---
Progress Note, Physician History of Present Illness: Pt is on Peg tube feeding Tolerating well No Fever Mild SOB spoke with patient and Pt is Full code - Current Medication List Current Medications: Active Medications Acetaminophen (Tylenol Oral Solution -) 650 mg GT Q4H PRN PRN Reason: PAIN LEVEL 1-5 Albuterol Sulfate (Ventolin 0.083% Nebulizer Soln -) 1 amp NEB RQID [facility] Last Admin: 05/06/19 15:25 Dose: Not Given Albuterol Sulfate (Ventolin 0.083% Nebulizer Soln -) 1 amp NEB Q4H PRN PRN Reason: SHORT OF BREATH/WHEEZING Ascorbic Acid (Vitamin C Oral Solution -) 500 mg GT BID [facility] Last Admin: 05/06/19 10:45 Dose: 500 mg Budesonide/Formoterol Fumarate (Symbicort 160/4.5mcg -) 2 puff IH BID [facility] Last Admin: 05/06/19 10:48 Dose: 2 puff Carbidopa/Levodopa (Sinemet 25/100 -) 2 each PO 0700,1200,1700 [facility] Last Admin: 05/06/19 12:48 Dose: 2 each Hydrocortisone (Hytone 1% Cream -) 1 applic TP BID [facility] Last Admin: 05/06/19 10:49 Dose: 1 applic Ceftriaxone Sodium 1 gm/ (Dextrose) 50 mls @ 100 mls/hr IVPB DAILY [facility]; Protocol Last Admin: 05/06/19 10:58 Dose: 100 mls/hr Melatonin (Melatonin) 5 mg NR HS PRN PRN Reason: INSOMNIA Nystatin (Nystatin Oral Suspension -) 500,000 units PO Q6HPO [facility] Last Admin: 05/06/19 12:48 Dose: 500,000 units Nystatin (Mycostatin Cream -) 1 applic TP BID [facility] Last Admin: 05/06/19 10:49 Dose: 1 applic Prednisone (Deltasone -) 40 mg GT DAILY [facility] Last Admin: 05/06/19 10:45 Dose: 40 mg Sertraline HCl 50 mg/ (Sertraline HCl 25 mg) 75 mg GT DAILY [facility] Last Admin: 05/06/19 10:45 Dose: 75 mg Silver Sulfadiazine (Silvadene -) 1 applic TP BID [facility] Last Admin: 05/06/19 10:47 Dose: 1 applic Tiotropium [place] (Spiriva Respimat) 2 puff IH DAILY [facility] Last Admin: 05/06/19 10:47 Dose: 2 puff Zinc Oxide/Panthenol/Vitamin E (Balmex Cream -) 1 applic TP BID [facility] Last Admin: 05/06/19 10:49 Dose: 1 applic - Objective Vital Signs: Vital Signs Temperature 97.9 F 05/06/19 14:00 Pulse Rate 108 H 05/06/19 14:00 Respiratory Rate 20 05/06/19 14:00 Blood Pressure 125/74 05/06/19 14:00 O2 Sat by Pulse Oximetry (%) 99 05/06/19 09:00 Constitutional: Yes: Anxious Eyes: Yes: Conjunctiva Clear, EOM Intact HENT: Yes: Atraumatic, Normocephalic Neck: Yes: Supple, Trachea Midline Cardiovascular: Yes: Regular Rate and Rhythm, S1, S2 Respiratory: Yes: Regular, CTA Bilaterally Gastrointestinal: Yes: Normal Bowel Sounds, Soft Musculoskeletal: Yes: Joint Stiffness Edema: No Peripheral Pulses WNL: Yes Neurological: Yes: Alert, Oriented, Cran Nerves II-XII Intact Labs: CBC, BMP 05/06/19 06:43 05/06/19 06:43 INR, PTT INR 1.14 (0.83-1.09) H 05/04/19 07:30 Problem List - Problems (1) Pulmonary hypertension Code(s): I27.20 - PULMONARY HYPERTENSION, UNSPECIFIED (2) GERD (gastroesophageal reflux disease) Code(s): K21.9 - GASTRO-ESOPHAGEAL REFLUX DISEASE WITHOUT ESOPHAGITIS (3) Acute diastolic (congestive) heart failure Code(s): I50.31 - ACUTE DIASTOLIC (CONGESTIVE) HEART FAILURE (4) Acute exacerbation of chronic obstructive pulmonary disease Code(s): J44.1 - CHRONIC OBSTRUCTIVE PULMONARY DISEASE W (ACUTE) EXACERBATION (5) Acute hypoxemic respiratory failure Code(s): J96.01 - ACUTE RESPIRATORY FAILURE WITH HYPOXIA (6) Bipolar 1 disorder Code(s): F31.9 - BIPOLAR DISORDER, UNSPECIFIED (7) Bronchiectasis Code(s): J47.9 - BRONCHIECTASIS, UNCOMPLICATED (8) CHF (congestive heart failure), NYHA class II Code(s): I50.9 - HEART FAILURE, UNSPECIFIED (9) Chronic kidney disease (CKD) Code(s): N18.9 - CHRONIC KIDNEY DISEASE, UNSPECIFIED (10) Elevated troponin Code(s): R74.8 - ABNORMAL LEVELS OF OTHER SERUM ENZYMES (11) Emphysema of lung Code(s): J43.9 - EMPHYSEMA, UNSPECIFIED (12) Hypotension Code(s): I95.9 - HYPOTENSION, UNSPECIFIED (13) HTN (hypertension) Code(s): I10 - ESSENTIAL (PRIMARY) HYPERTENSION (14) Insomnia disorder Code(s): G47.00 - INSOMNIA, UNSPECIFIED Assessment/Plan (1) Pulmonary hypertension Code(s): I27.20 - PULMONARY HYPERTENSION, UNSPECIFIED (2) GERD (gastroesophageal reflux disease) Code(s): K21.9 - GASTRO-ESOPHAGEAL REFLUX DISEASE WITHOUT ESOPHAGITIS (3) Acute diastolic (congestive) heart failure Code(s): I50.31 - ACUTE DIASTOLIC (CONGESTIVE) HEART FAILURE (4) Acute exacerbation of chronic obstructive pulmonary disease Code(s): J44.1 - CHRONIC OBSTRUCTIVE PULMONARY DISEASE W (ACUTE) EXACERBATION (5) Acute hypoxemic respiratory failure Code(s): J96.01 - ACUTE RESPIRATORY FAILURE WITH HYPOXIA (6) Bipolar 1 disorder Code(s): F31.9 - BIPOLAR DISORDER, UNSPECIFIED (7) Bronchiectasis Code(s): J47.9 - BRONCHIECTASIS, UNCOMPLICATED (8) CHF (congestive heart failure), NYHA class II Code(s): I50.9 - HEART FAILURE, UNSPECIFIED (9) Chronic kidney disease (CKD) Code(s): N18.9 - CHRONIC KIDNEY DISEASE, UNSPECIFIED (10) Elevated troponin Code(s): R74.8 - ABNORMAL LEVELS OF OTHER SERUM ENZYMES (11) Emphysema of lung Code(s): J43.9 - EMPHYSEMA, UNSPECIFIED (12) Hypotension Code(s): I95.9 - HYPOTENSION, UNSPECIFIED (13) HTN (hypertension) Code(s): I10 - ESSENTIAL (PRIMARY) HYPERTENSION (14) Insomnia disorder Code(s): G47.00 - INSOMNIA, UNSPECIFIED S/p PEG by IR Pt is doing well Pt tolerating the feeding Spoke with criminal justice social worker also for DC planning
[2019-05-06] MEDS: ACETAMINOPHEN 650 MG/20.3 ML ORAL SOLUTION (CUPS) GT PRN (17:56)
[2019-05-07] MEDS: NYSTATIN 500,000 UNITS/5 ML SUSPENSION PO SCH ×5 (00:16→23:45)
[2019-05-07] MEDS: CARBIDOPA/LEVODOPA 25/100 TABLET (FP) GT SCH ×3 (06:40→18:53)
[2019-05-07] MEDS ORDERED: PT OWN MED DRAWER 7, Y5N ONE ×3 (07:41→23:42)
[2019-05-07] MEDS: ALBUTEROL SO4 0.083% IH SOL 2.5 MG/3 ML VIAL.NEB. NEB SCH ×4 (08:55→20:58)
--- NOTE | 2019-05-07 10:02 | PN ---
Progress Note (short form) - Note Progress Note: 89 year old male history of HTN,COPD, CAD. Patient came for shortness of breath and has been treated with steroid and abx, pateint has difficulty with breathing. He also have history of parkinson disease diagnosed by Dr Gardner and he is taking sinemet 1 tab ( 25/100) tid. Patient is waiting to go to [place], he was seen on may 06 and no new focal symptoms NEUROLOGICAL EXAMINATION Alert oriented x 2, neck is supple eomi, pupils reactive no face asymmetry moving all extremity there is bradykinesia and mild tremors were identified( more so on right side) sensation is normal , strength is normal Assessment/Plan 89 year old male history of HTN,COPD, CAD. He has history of PD for two yeas, and now on sinemet 25/100 two tab po tid. s/p peg tube placement , and now seems to be more bright today. Plan: continue to watch on sinemet (25/100)two tab po tid - waiting to go to short term rehab Thanking you so much Keegan Ko MD
[2019-05-07] MEDS ORDERED: SERTRALINE HCL 25 MG TABLET (FP) ONE (10:48)
[2019-05-07] MEDS ORDERED: SERTRALINE HCL 50 MG TABLET (FP) ONE (10:48)
[2019-05-07] MEDS ORDERED: cefTRIAXone SODIUM 1 GM VIAL ONE (10:49)
[2019-05-07] MEDS ORDERED: DEXTROSE 5%-WATER - 50 ML IVPB ONE (10:49)
[2019-05-07] MEDS: SERTRALINE HCL 50 MG, SERTRALINE HCL 25 MG GT SCH (10:52)
[2019-05-07] MEDS: predniSONE 20 MG TABLET (UD) GT SCH (10:52)
[2019-05-07] MEDS: CEFTRIAXONE 1 GM in DEXTROSE 5%-WATER - 50 ML IVPB SCH (10:52)
[2019-05-07] MEDS: ASCORBIC ACID 500 MG/5 ML UNIT DOSE CUP GT SCH ×2 (10:52→23:46)
[2019-05-07] MEDS: ACETAMINOPHEN 650 MG/20.3 ML ORAL SOLUTION (CUPS) GT PRN ×2 (10:52→18:53)
[2019-05-07] MEDS: TIOTROPIUM BROMIDE 2.5 MCG (SPIRIVA) RESPIMAT INHALER IH SCH (10:54)
[2019-05-07] MEDS: NYSTATIN 100,000 UNIT/GM TOPICAL CREAM 15 GM TUBE TP SCH ×2 (10:54→23:52)
[2019-05-07] MEDS: BUDESONIDE/FORMETEROL FUMARATE 160/4.5 mcg INHALER IH SCH ×2 (10:54→23:52)
[2019-05-07] MEDS: HYDROCORTISONE 1% TOPICAL CREAM 30 GM TUBE TP SCH ×2 (10:54→23:49)
[2019-05-07] MEDS: ZINC OXIDE/PANTHENOL/VITAMIN E 56 GM TUBE TP SCH ×2 (10:55→23:51)
[2019-05-07] MEDS: SILVER SULFADIAZINE 1% TOP CREAM 50 GM JAR TP SCH ×2 (10:55→23:48)
--- NOTE | 2019-05-07 13:18 | PN ---
Progress Note (short form) - Note Progress Note: Renal follow up for hyponatremia Seen and examined at the bedside awake and alert feels more short of breath today no chest pain, fever chills was fed via g-tube overnight Vital Signs Temperature 98.4 F 05/07/19 09:00 Pulse Rate 94 H 05/07/19 09:00 Respiratory Rate 22 H 05/07/19 09:00 Blood Pressure 140/88 05/07/19 09:00 O2 Sat by Pulse Oximetry (%) 100 05/06/19 20:41 Intake & Output 05/04/19 05/05/19 05/06/19 05/07/19 23:59 23:59 23:59 23:59 Intake Total 100 360 530 Balance 100 360 530 Weight 56.064 kg 56.336 kg 57.311 kg 57.379 kg NAD Course BS soft NT/ND no LE edema, clubbing or cyanosis CBC, BMP 05/06/19 06:43 05/06/19 06:43 Current Medications Acetaminophen (Tylenol Oral Solution -) 650 mg GT Q4H PRN PRN Reason: PAIN LEVEL 1-5 Last Admin: 05/07/19 10:52 Dose: 650 mg Albuterol Sulfate (Ventolin 0.083% Nebulizer Soln -) 1 amp NEB RQID [facility] Last Admin: 05/07/19 11:46 Dose: 1 amp Albuterol Sulfate (Ventolin 0.083% Nebulizer Soln -) 1 amp NEB Q4H PRN PRN Reason: SHORT OF BREATH/WHEEZING Ascorbic Acid (Vitamin C Oral Solution -) 500 mg GT BID [facility] Last Admin: 05/07/19 10:52 Dose: 500 mg Budesonide/Formoterol Fumarate (Symbicort 160/4.5mcg -) 2 puff IH BID [facility] Last Admin: 05/07/19 10:54 Dose: 2 puff Carbidopa/Levodopa (Sinemet 25/100 -) 2 each GT 0700,1200,1700 [facility] Last Admin: 05/07/19 06:40 Dose: 2 each Hydrocortisone (Hytone 1% Cream -) 1 applic TP BID [facility] Last Admin: 05/07/19 10:54 Dose: 1 applic Ceftriaxone Sodium 1 gm/ (Dextrose) 50 mls @ 100 mls/hr IVPB DAILY [facility]; Protocol Last Admin: 05/07/19 10:52 Dose: 100 mls/hr Melatonin (Melatonin) 5 mg NR HS PRN PRN Reason: INSOMNIA Nystatin (Nystatin Oral Suspension -) 500,000 units PO Q6HPO [facility] Last Admin: 05/07/19 06:39 Dose: 500,000 units Nystatin (Mycostatin Cream -) 1 applic TP BID [facility] Last Admin: 05/07/19 10:54 Dose: 1 applic Prednisone (Deltasone -) 40 mg GT DAILY [facility] Last Admin: 05/07/19 10:52 Dose: 40 mg Sertraline HCl 50 mg/ (Sertraline HCl 25 mg) 75 mg GT DAILY [facility] Last Admin: 05/07/19 10:52 Dose: 75 mg Silver Sulfadiazine (Silvadene -) 1 applic TP BID [facility] Last Admin: 05/07/19 10:55 Dose: 1 applic Tiotropium [place] (Spiriva Respimat) 2 puff IH DAILY [facility] Last Admin: 05/07/19 10:54 Dose: 2 puff Zinc Oxide/Panthenol/Vitamin E (Balmex Cream -) 1 applic TP BID [facility] Last Admin: 05/07/19 10:55 Dose: 1 applic 89 year old gentleman with history of COPD, Lung cancer, cardiomyopathy, CKD presented with cough and shortness of breath and noted to have worsening hyponatremia. 1. hyponatremia from poor solute intake + diuretics now resolved 2. Respiratory failure 3. Bronchitis 4. Leukocytosis 5. Mild hypernatremia from decreased oral fluid intake Renal function stable BUN elevated likely related to steroids use free water as tolerated via G-tube (ordered 300cc q8h in addition to tube feeds) trend electrolytes daily overall prognosis is poor Zack Saleem DO
--- NOTE | 2019-05-07 13:34 | PN ---
Progress Note (short form) - Note Progress Note: PULMONARY VSS/AFEBRILE Gen: Mildly tachypneic at rest on NC O2 Heart: RRR Lung: scattered bilateral rhonchi, no wheeze Abd: soft, nontender Ext: no edema - Problems (1) COPD exacerbation Code(s): J44.1 - CHRONIC OBSTRUCTIVE PULMONARY DISEASE W (ACUTE) EXACERBATION A/P Acute COPD Exacerbation Chronic Hypoxic Respiratory Failure Severe Pulmonary HTN CAD HTN - ABX per ID - Inhaled bronchodilators - Symbicort - O2 to keep SpO2 >90% - DVT prophylaxis - Prednisone to taper Brittani VIDALES MD
[2019-05-07 13:47] LABS: BASO % 0.5 % (0-2.0); EOS % 0.2 % (0-4.5); HEMATOCRIT 31.1 % (35.4-49); HEMOGLOBIN 10.3 GM/dL (11.7-16.9); LYMPH % 2.6 % (8-40); MCH 33.1 pg (25.7-33.7); MCHC 33.3 g/dl (32.0-35.9); MEAN CELL VOLUME 99.3 fl (80-96); MEAN PLT VOLUME 8.7 fl (7.5-11.1); MONO % 2.7 % (3.8-10.2); PLATELET COUNT 263 K/MM3 (134-434); RBC 3.13 M/mm3 (4.00-5.60); RDW 16.6 % (11.9-15.9); WHITE BLOOD COUNT 13.1 K/mm3 (4.0-10.0)
--- NOTE | 2019-05-07 14:13 | PN ---
Progress Note, Physician History of Present Illness: stable still tachypnoeic breathing still not good - Current Medication List Current Medications: Active Medications Acetaminophen (Tylenol Oral Solution -) 650 mg GT Q4H PRN PRN Reason: PAIN LEVEL 1-5 Last Admin: 05/07/19 10:52 Dose: 650 mg Albuterol Sulfate (Ventolin 0.083% Nebulizer Soln -) 1 amp NEB RQID [facility] Last Admin: 05/07/19 11:46 Dose: 1 amp Albuterol Sulfate (Ventolin 0.083% Nebulizer Soln -) 1 amp NEB Q4H PRN PRN Reason: SHORT OF BREATH/WHEEZING Ascorbic Acid (Vitamin C Oral Solution -) 500 mg GT BID [facility] Last Admin: 05/07/19 10:52 Dose: 500 mg Budesonide/Formoterol Fumarate (Symbicort 160/4.5mcg -) 2 puff IH BID [facility] Last Admin: 05/07/19 10:54 Dose: 2 puff Carbidopa/Levodopa (Sinemet 25/100 -) 2 each GT 0700,1200,1700 [facility] Last Admin: 05/07/19 13:25 Dose: 2 each Hydrocortisone (Hytone 1% Cream -) 1 applic TP BID [facility] Last Admin: 05/07/19 10:54 Dose: 1 applic Melatonin (Melatonin) 5 mg NR HS PRN PRN Reason: INSOMNIA Nystatin (Nystatin Oral Suspension -) 500,000 units PO Q6HPO [facility] Last Admin: 05/07/19 13:25 Dose: 500,000 units Nystatin (Mycostatin Cream -) 1 applic TP BID [facility] Last Admin: 05/07/19 10:54 Dose: 1 applic Prednisone (Deltasone -) 40 mg GT DAILY [facility] Last Admin: 05/07/19 10:52 Dose: 40 mg Sertraline HCl 50 mg/ (Sertraline HCl 25 mg) 75 mg GT DAILY [facility] Last Admin: 05/07/19 10:52 Dose: 75 mg Silver Sulfadiazine (Silvadene -) 1 applic TP BID [facility] Last Admin: 05/07/19 10:55 Dose: 1 applic Tiotropium [place] (Spiriva Respimat) 2 puff IH DAILY [facility] Last Admin: 05/07/19 10:54 Dose: 2 puff Zinc Oxide/Panthenol/Vitamin E (Balmex Cream -) 1 applic TP BID [facility] Last Admin: 05/07/19 10:55 Dose: 1 applic - Objective Vital Signs: Vital Signs Temperature 98.4 F 05/07/19 09:00 Pulse Rate 94 H 05/07/19 09:00 Respiratory Rate 22 H 05/07/19 09:00 Blood Pressure 140/88 05/07/19 09:00 O2 Sat by Pulse Oximetry (%) 100 05/06/19 20:41 Constitutional: Yes: No Distress, Calm Cardiovascular: Yes: S1, S2 Respiratory: Yes: Regular, CTA Bilaterally Gastrointestinal: Yes: Normal Bowel Sounds, Soft Musculoskeletal: Yes: WNL Extremities: Yes: WNL Neurological: Yes: Alert Psychiatric: Yes: Alert Labs: CBC, BMP 05/07/19 13:12 INR, PTT INR 1.14 (0.83-1.09) H 05/04/19 07:30 Assessment/Plan Problem List - Problems (1) Pulmonary hypertension Code(s): I27.20 - PULMONARY HYPERTENSION, UNSPECIFIED (2) GERD (gastroesophageal reflux disease) Code(s): K21.9 - GASTRO-ESOPHAGEAL REFLUX DISEASE WITHOUT ESOPHAGITIS (3) Acute diastolic (congestive) heart failure Code(s): I50.31 - ACUTE DIASTOLIC (CONGESTIVE) HEART FAILURE (4) Acute exacerbation of chronic obstructive pulmonary disease Code(s): J44.1 - CHRONIC OBSTRUCTIVE PULMONARY DISEASE W (ACUTE) EXACERBATION (5) Acute hypoxemic respiratory failure Code(s): J96.01 - ACUTE RESPIRATORY FAILURE WITH HYPOXIA (6) Bipolar 1 disorder Code(s): F31.9 - BIPOLAR DISORDER, UNSPECIFIED (7) Bronchiectasis Code(s): J47.9 - BRONCHIECTASIS, UNCOMPLICATED (8) CHF (congestive heart failure), NYHA class II Code(s): I50.9 - HEART FAILURE, UNSPECIFIED (9) Chronic kidney disease (CKD) Code(s): N18.9 - CHRONIC KIDNEY DISEASE, UNSPECIFIED (10) Elevated troponin Code(s): R74.8 - ABNORMAL LEVELS OF OTHER SERUM ENZYMES (11) Emphysema of lung Code(s): J43.9 - EMPHYSEMA, UNSPECIFIED (12) Hypotension Code(s): I95.9 - HYPOTENSION, UNSPECIFIED (13) HTN (hypertension) Code(s): I10 - ESSENTIAL (PRIMARY) HYPERTENSION (14) Insomnia disorder Code(s): G47.00 - INSOMNIA, UNSPECIFIED plan continue to monitor nutrition avoid fluid overload resp support
[2019-05-07 14:18] LABS: CALCIUM 8.7 mg/dL (8.5-10.1); CREATININE 0.9 mg/dL (0.55-1.3); POTASSIUM 3.5 mmol/L (3.5-5.1)
[2019-05-07 14:30] LABS: ANISOCYTOSIS 1+; MACROCYTOSIS 0; OVALOCYTE 1+; PLATELET ESTIMATE NORMAL; TEAR DROP CELLS 1+
--- NOTE | 2019-05-07 15:36 | PN ---
Progress Note (short form) - Note Progress Note: s: still sob, no chest pain, palps, dizziness Current Medications Generic Name Dose Route Start Last Admin Trade Name Freq PRN Reason Stop Dose Admin Acetaminophen 650 mg 05/06/19 09:38 05/07/19 10:52 Tylenol Oral Solution - GT 650 mg Q4H PRN Administration PAIN LEVEL 1-5 Albuterol Sulfate 1 amp 05/03/19 12:00 05/07/19 11:46 Ventolin 0.083% Nebulizer Soln - NEB 1 amp RQID [facility] Administration Albuterol Sulfate 1 amp 05/03/19 10:28 Ventolin 0.083% Nebulizer Soln - NEB Q4H PRN SHORT OF BREATH/WHEEZING Ascorbic Acid 500 mg 05/06/19 09:38 05/07/19 10:52 Vitamin C Oral Solution - GT 500 mg BID [facility] Administration Budesonide/Formoterol Fumarate 2 puff 04/08/19 13:30 05/07/19 10:54 Symbicort 160/4.5mcg - IH 2 puff BID [facility] Administration Carbidopa/Levodopa 2 each 05/06/19 19:37 05/07/19 13:25 Sinemet 25/100 - GT 2 each 0700,1200,1700 [facility] Administration Hydrocortisone 1 applic 05/04/19 22:00 05/07/19 10:54 Hytone 1% Cream - TP 1 applic BID [facility] Administration Melatonin 5 mg 05/06/19 09:39 Melatonin NR HS PRN INSOMNIA Nystatin 500,000 units 04/19/19 12:00 05/07/19 13:25 Nystatin Oral Suspension - PO 500,000 units Q6HPO [facility] Administration Nystatin 1 applic 05/04/19 22:00 05/07/19 10:54 Mycostatin Cream - TP 1 applic BID [facility] Administration Prednisone 40 mg 05/06/19 09:40 05/07/19 10:52 Deltasone - GT 40 mg DAILY [facility] Administration Sertraline HCl 50 mg/ 75 mg 05/06/19 09:39 05/07/19 10:52 Sertraline HCl 25 mg GT 75 mg DAILY [facility] Administration Silver Sulfadiazine 1 applic 04/07/19 22:00 05/07/19 10:55 Silvadene - TP 1 applic BID [facility] Administration Tiotropium [place] 2 puff 04/13/19 10:30 05/07/19 10:54 Spiriva Respimat IH 2 puff DAILY [facility] Administration Zinc Oxide/Panthenol/Vitamin E 1 applic 04/07/19 22:00 05/07/19 10:55 Balmex Cream - TP 1 applic BID [facility] Administration Vital Signs Period Temp Pulse Resp BP Sys/[place] Pulse Ox Last 24 Hr 97.8 F-98.6 F 92-110 18-22 120-170/70-88 100 Constitutional: Yes: Well Nourished, No Distress, Calm Cardiovascular: Yes: Regular Rate and Rhythm, S1, S2. No: JVD, Gallop, Murmur Respiratory: Yes: bl rhonchi, poor eff Extremities: No: Cold Edema: No Neurological: awake Psychiatric: No: Agitated no jaundice diaphoresis CBC, BMP 05/07/19 13:12 05/07/19 13:12 Assessment/Plan echo 02/2019 tds, nl LV function, RV not well visualized, severe pulm HTN >60 mmHg RVSP stress echo 04/07: apical ischemia a.e. COPD, acute HFpEF, severe pulm HTN ? cor pulmonale - persistent sob, cxr w/o chf - steroids, BDs, suppl O2 per pulm - metoprolol dc'ed given prolonged, symptomatic airways dz sx's here, and EF has normalized elevated trop: - borderline trop, flat trend, not c/w acs - EKG no ischemic changes history of stress induced CM: with mild acute on chronic diastolic CHF exacerbation in setting of increased IVF - nl EF on echo 02/2019 - cont lisinopril. hold BB, as above (? contributing to copd sx's) DORIS on CKD: - renal fxn improved PSVT/PAT: - brief runs, off tele now - off metoprolol as above CAD: - +apical ischemia 03/2018 managed medically - no angina - cont aspirin, statin. 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
--- NOTE | 2019-05-07 21:30 | PN ---
Progress Note, Physician History of Present Illness: Pt is on Gtube feeding Blood sugar High/ Never had DM/ Steroid induced/ Stress HbA1C BGMs TID May be we will change to Glucerna - Current Medication List Current Medications: Active Medications Acetaminophen (Tylenol Oral Solution -) 650 mg GT Q4H PRN PRN Reason: PAIN LEVEL 1-5 Last Admin: 05/07/19 18:53 Dose: 650 mg Albuterol Sulfate (Ventolin 0.083% Nebulizer Soln -) 1 amp NEB RQID [facility] Last Admin: 05/07/19 20:58 Dose: 1 amp Albuterol Sulfate (Ventolin 0.083% Nebulizer Soln -) 1 amp NEB Q4H PRN PRN Reason: SHORT OF BREATH/WHEEZING Ascorbic Acid (Vitamin C Oral Solution -) 500 mg GT BID [facility] Last Admin: 05/07/19 10:52 Dose: 500 mg Budesonide/Formoterol Fumarate (Symbicort 160/4.5mcg -) 2 puff IH BID [facility] Last Admin: 05/07/19 10:54 Dose: 2 puff Carbidopa/Levodopa (Sinemet 25/100 -) 2 each GT 0700,1200,1700 [facility] Last Admin: 05/07/19 18:53 Dose: 2 each Hydrocortisone (Hytone 1% Cream -) 1 applic TP BID [facility] Last Admin: 05/07/19 10:54 Dose: 1 applic Melatonin (Melatonin) 5 mg NR HS PRN PRN Reason: INSOMNIA Nystatin (Nystatin Oral Suspension -) 500,000 units PO Q6HPO [facility] Last Admin: 05/07/19 18:53 Dose: 500,000 units Nystatin (Mycostatin Cream -) 1 applic TP BID [facility] Last Admin: 05/07/19 10:54 Dose: 1 applic Prednisone (Deltasone -) 40 mg GT DAILY [facility] Last Admin: 05/07/19 10:52 Dose: 40 mg Sertraline HCl 50 mg/ (Sertraline HCl 25 mg) 75 mg GT DAILY [facility] Last Admin: 05/07/19 10:52 Dose: 75 mg Silver Sulfadiazine (Silvadene -) 1 applic TP BID [facility] Last Admin: 05/07/19 10:55 Dose: 1 applic Tiotropium [place] (Spiriva Respimat) 2 puff IH DAILY [facility] Last Admin: 01/17/20 10:54 Dose: 2 puff Zinc Oxide/Panthenol/Vitamin E (Balmex Cream -) 1 applic TP BID [facility] Last Admin: 05/07/19 10:55 Dose: 1 applic - Objective Vital Signs: Vital Signs Temperature 97.2 F L 05/07/19 16:40 Pulse Rate 119 H 05/07/19 16:40 Respiratory Rate 18 05/07/19 16:40 Blood Pressure 118/63 05/07/19 16:40 O2 Sat by Pulse Oximetry (%) 100 05/06/19 20:41 Constitutional: Yes: Anxious Eyes: Yes: Conjunctiva Clear, EOM Intact HENT: Yes: Atraumatic, Normocephalic Neck: Yes: Supple, Trachea Midline Cardiovascular: Yes: Regular Rate and Rhythm, S1, S2 Respiratory: Yes: Regular, CTA Bilaterally Gastrointestinal: Yes: Normal Bowel Sounds, Soft Edema: No Peripheral Pulses WNL: Yes Labs: CBC, BMP 05/07/19 13:12 05/07/19 13:12 INR, PTT INR 1.14 (0.83-1.09) H 05/04/19 07:30 Problem List - Problems (1) Pulmonary hypertension Code(s): I27.20 - PULMONARY HYPERTENSION, UNSPECIFIED (2) GERD (gastroesophageal reflux disease) Code(s): K21.9 - GASTRO-ESOPHAGEAL REFLUX DISEASE WITHOUT ESOPHAGITIS (3) Acute diastolic (congestive) heart failure Code(s): I50.31 - ACUTE DIASTOLIC (CONGESTIVE) HEART FAILURE (4) Acute exacerbation of chronic obstructive pulmonary disease Code(s): J44.1 - CHRONIC OBSTRUCTIVE PULMONARY DISEASE W (ACUTE) EXACERBATION (5) Acute hypoxemic respiratory failure Code(s): J96.01 - ACUTE RESPIRATORY FAILURE WITH HYPOXIA (6) Bipolar 1 disorder Code(s): F31.9 - BIPOLAR DISORDER, UNSPECIFIED (7) Bronchiectasis Code(s): J47.9 - BRONCHIECTASIS, UNCOMPLICATED (8) CHF (congestive heart failure), NYHA class II Code(s): I50.9 - HEART FAILURE, UNSPECIFIED (9) Chronic kidney disease (CKD) Code(s): N18.9 - CHRONIC KIDNEY DISEASE, UNSPECIFIED (10) Elevated troponin Code(s): R74.8 - ABNORMAL LEVELS OF OTHER SERUM ENZYMES (11) Emphysema of lung Code(s): J43.9 - EMPHYSEMA, UNSPECIFIED (12) Hypotension Code(s): I95.9 - HYPOTENSION, UNSPECIFIED (13) HTN (hypertension) Code(s): I10 - ESSENTIAL (PRIMARY) HYPERTENSION (14) Insomnia disorder Code(s): G47.00 - INSOMNIA, UNSPECIFIED Assessment/Plan (1) Pulmonary hypertension Code(s): I27.20 - PULMONARY HYPERTENSION, UNSPECIFIED (2) GERD (gastroesophageal reflux disease) Code(s): K21.9 - GASTRO-ESOPHAGEAL REFLUX DISEASE WITHOUT ESOPHAGITIS (3) Acute diastolic (congestive) heart failure Code(s): I50.31 - ACUTE DIASTOLIC (CONGESTIVE) HEART FAILURE (4) Acute exacerbation of chronic obstructive pulmonary disease Code(s): J44.1 - CHRONIC OBSTRUCTIVE PULMONARY DISEASE W (ACUTE) EXACERBATION (5) Acute hypoxemic respiratory failure Code(s): J96.01 - ACUTE RESPIRATORY FAILURE WITH HYPOXIA (6) Bipolar 1 disorder Code(s): F31.9 - BIPOLAR DISORDER, UNSPECIFIED (7) Bronchiectasis Code(s): J47.9 - BRONCHIECTASIS, UNCOMPLICATED (8) CHF (congestive heart failure), NYHA class II Code(s): I50.9 - HEART FAILURE, UNSPECIFIED (9) Chronic kidney disease (CKD) Code(s): N18.9 - CHRONIC KIDNEY DISEASE, UNSPECIFIED (10) Elevated troponin Code(s): R74.8 - ABNORMAL LEVELS OF OTHER SERUM ENZYMES (11) Emphysema of lung Code(s): J43.9 - EMPHYSEMA, UNSPECIFIED (12) Hypotension Code(s): I95.9 - HYPOTENSION, UNSPECIFIED (13) HTN (hypertension) Code(s): I10 - ESSENTIAL (PRIMARY) HYPERTENSION (14) Insomnia disorder Code(s): G47.00 - INSOMNIA, UNSPECIFIED S/p PEG by IR Pt is doing well Pt tolerating the feeding Spoke with perinatal social worker and also for DC planning to STR
[2019-05-08] MEDS: CARBIDOPA/LEVODOPA 25/100 TABLET (FP) GT SCH ×3 (06:04→18:19)
[2019-05-08] MEDS: NYSTATIN 500,000 UNITS/5 ML SUSPENSION PO SCH ×4 (06:04→23:09)
[2019-05-08] MEDS: ALBUTEROL SO4 0.083% IH SOL 2.5 MG/3 ML VIAL.NEB. NEB SCH (09:00)
[2019-05-08 10:16] LABS: BASO % 0.2 % (0-2.0); EOS % 0.4 % (0-4.5); HEMATOCRIT 30.6 % (35.4-49); HEMOGLOBIN 10.1 GM/dL (11.7-16.9); LYMPH % 5.2 % (8-40); MCH 32.5 pg (25.7-33.7); MCHC 32.9 g/dl (32.0-35.9); MEAN CELL VOLUME 98.8 fl (80-96); MEAN PLT VOLUME 8.6 fl (7.5-11.1); MONO % 3.9 % (3.8-10.2); NEUT % 90.3 % (42.8-82.8); PLATELET COUNT 275 K/MM3 (134-434); RDW 16.8 % (11.9-15.9); WHITE BLOOD COUNT 13.2 K/mm3 (4.0-10.0)
[2019-05-08 10:40] LABS: BLOOD UREA NITROGEN 56.7 mg/dL (7-18); CALCIUM 8.9 mg/dL (8.5-10.1); CREATININE 0.8 mg/dL (0.55-1.3); N-TERMINAL BNP 3817.2 pg/ml (5-450); POTASSIUM 3.4 mmol/L (3.5-5.1)
[2019-05-08] MEDS ORDERED: SERTRALINE HCL 50 MG TABLET (FP) ONE (10:59)
[2019-05-08] MEDS ORDERED: SERTRALINE HCL 25 MG TABLET (FP) ONE (10:59)
[2019-05-08] MEDS ORDERED: PT OWN MED DRAWER 7, Y5N ONE ×2 (11:00→21:07)
[2019-05-08] MEDS: predniSONE 20 MG TABLET (UD) GT SCH (11:11)
[2019-05-08] MEDS: ACETAMINOPHEN 650 MG/20.3 ML ORAL SOLUTION (CUPS) GT PRN ×2 (11:11→23:09)
[2019-05-08] MEDS: SERTRALINE HCL 50 MG, SERTRALINE HCL 25 MG GT SCH (11:11)
[2019-05-08] MEDS: ASCORBIC ACID 500 MG/5 ML UNIT DOSE CUP GT SCH ×2 (11:12→23:11)
[2019-05-08] MEDS: BUDESONIDE/FORMETEROL FUMARATE 160/4.5 mcg INHALER IH SCH ×2 (11:12→23:13)
[2019-05-08] MEDS: TIOTROPIUM BROMIDE 2.5 MCG (SPIRIVA) RESPIMAT INHALER IH SCH (11:12)
[2019-05-08] MEDS: HYDROCORTISONE 1% TOPICAL CREAM 30 GM TUBE TP SCH ×2 (11:12→23:12)
[2019-05-08] MEDS: NYSTATIN 100,000 UNIT/GM TOPICAL CREAM 15 GM TUBE TP SCH ×2 (11:12→23:12)
[2019-05-08] MEDS: ZINC OXIDE/PANTHENOL/VITAMIN E 56 GM TUBE TP SCH ×2 (11:13→23:12)
[2019-05-08] MEDS: SILVER SULFADIAZINE 1% TOP CREAM 50 GM JAR TP SCH ×2 (11:13→23:13)
--- NOTE | 2019-05-08 12:29 | PN ---
Progress Note (short form) - Note Progress Note: PULMONARY Breathing about the same. No fevers recorded. Vital Signs Period Temp Pulse Resp BP Sys/[place] Pulse Ox Last 24 Hr 97.2 F-98.9 F 107-129 15-22 112-129/63-76 Gen: NAD at rest Heart: RRR Lung: bilateral rhonchi Abd: soft, nontender Ext: no edema CBC, BMP 05/08/19 08:10 05/08/19 08:10 Active Medications Acetaminophen (Tylenol Oral Solution -) 650 mg GT Q4H PRN PRN Reason: PAIN LEVEL 1-5 Last Admin: 05/08/19 11:11 Dose: 650 mg Ascorbic Acid (Vitamin C Oral Solution -) 500 mg GT BID [facility] Last Admin: 05/08/19 11:12 Dose: 500 mg Budesonide/Formoterol Fumarate (Symbicort 160/4.5mcg -) 2 puff IH BID [facility] Last Admin: 05/08/19 11:12 Dose: 2 puff Carbidopa/Levodopa (Sinemet 25/100 -) 2 each GT 0700,1200,1700 [facility] Last Admin: 05/08/19 06:04 Dose: 2 each Hydrocortisone (Hytone 1% Cream -) 1 applic TP BID [facility] Last Admin: 05/08/19 11:12 Dose: 1 applic Melatonin (Melatonin) 5 mg NR HS PRN PRN Reason: INSOMNIA Last Admin: 05/07/19 23:46 Dose: 5 mg Nystatin (Nystatin Oral Suspension -) 500,000 units PO Q6HPO [facility] Last Admin: 05/08/19 06:04 Dose: 500,000 units Nystatin (Mycostatin Cream -) 1 applic TP BID [facility] Last Admin: 05/08/19 11:12 Dose: 1 applic Prednisone (Deltasone -) 40 mg GT DAILY [facility] Last Admin: 05/08/19 11:11 Dose: 40 mg Sertraline HCl 50 mg/ (Sertraline HCl 25 mg) 75 mg GT DAILY [facility] Last Admin: 05/08/19 11:11 Dose: 75 mg Silver Sulfadiazine (Silvadene -) 1 applic TP BID [facility] Last Admin: 05/08/19 11:13 Dose: 1 applic Tiotropium [place] (Spiriva Respimat) 2 puff IH DAILY [facility] Last Admin: 05/08/19 11:12 Dose: 2 puff Zinc Oxide/Panthenol/Vitamin E (Balmex Cream -) 1 applic TP BID [facility] Last Admin: 05/08/19 11:13 Dose: 1 applic A/P Acute COPD Exacerbation/End Stage COPD Chronic Hypoxic Respiratory Failure Severe Pulmonary HTN CAD Hyponatremia HTN Malnutrition - slow prednisone taper - inhaled bronchodilators standing and PRN - symbicort, spiriva - O2 to keep SpO2 >90% - monitor lytes - DVT prophylaxis - poor overall prognosis, recommend palliative care Problem List - Problems (1) COPD exacerbation Code(s): J44.1 - CHRONIC OBSTRUCTIVE PULMONARY DISEASE W (ACUTE) EXACERBATION
[2019-05-08 15:05] LABS: ANISOCYTOSIS 1+; MACROCYTOSIS 0; OVALOCYTE 1+; PLATELET ESTIMATE NORMAL
--- NOTE | 2019-05-08 19:04 | PN ---
Progress Note (short form) - Note Progress Note: 1. hyponatremia from poor solute intake + diuretics now resolved 2. Respiratory failure 3. Bronchitis 4. Leukocytosis 5. Mild hypernatremia from decreased oral fluid intake Current Medications Acetaminophen (Tylenol Oral Solution -) 650 mg GT Q4H PRN PRN Reason: PAIN LEVEL 1-5 Last Admin: 05/08/19 11:11 Dose: 650 mg Ascorbic Acid (Vitamin C Oral Solution -) 500 mg GT BID [facility] Last Admin: 05/08/19 11:12 Dose: 500 mg Budesonide/Formoterol Fumarate (Symbicort 160/4.5mcg -) 2 puff IH BID [facility] Last Admin: 05/08/19 11:12 Dose: 2 puff Carbidopa/Levodopa (Sinemet 25/100 -) 2 each GT 0700,1200,1700 [facility] Last Admin: 05/08/19 18:19 Dose: 2 each Hydrocortisone (Hytone 1% Cream -) 1 applic TP BID [facility] Last Admin: 05/08/19 11:12 Dose: 1 applic Melatonin (Melatonin) 5 mg NR HS PRN PRN Reason: INSOMNIA Last Admin: 05/07/19 23:46 Dose: 5 mg Nystatin (Nystatin Oral Suspension -) 500,000 units PO Q6HPO [facility] Last Admin: 05/08/19 18:19 Dose: 500,000 units Nystatin (Mycostatin Cream -) 1 applic TP BID [facility] Last Admin: 05/08/19 11:12 Dose: 1 applic Prednisone (Deltasone -) 40 mg GT DAILY [facility] Last Admin: 05/08/19 11:11 Dose: 40 mg Sertraline HCl 50 mg/ (Sertraline HCl 25 mg) 75 mg GT DAILY [facility] Last Admin: 05/08/19 11:11 Dose: 75 mg Silver Sulfadiazine (Silvadene -) 1 applic TP BID [facility] Last Admin: 05/08/19 11:13 Dose: 1 applic Tiotropium [place] (Spiriva Respimat) 2 puff IH DAILY [facility] Last Admin: 05/08/19 11:12 Dose: 2 puff Zinc Oxide/Panthenol/Vitamin E (Balmex Cream -) 1 applic TP BID [facility] Last Admin: 05/08/19 11:13 Dose: 1 applic Last Vital Signs Temp Pulse Resp BP Pulse Ox 98.5 F 116 H 20 114/74 100 05/08/19 17:18 05/08/19 17:18 05/08/19 17:18 05/08/19 17:18 05/06/19 20:41 CBC, BMP 05/08/19 08:10 05/08/19 08:10 hypernatremia hypokalemia Prerenal azotemia Plan- continue free water replacement Renal function stable BUN elevated likely related to steroids use free water as tolerated via G-tube (ordered 300cc q8h in addition to tube feeds) trend electrolytes daily overall prognosis is poor
--- NOTE | 2019-05-08 20:43 | PN ---
Progress Note, Physician History of Present Illness: Pt is alert but extremely weak. Respiratory status remains the same. - Current Medication List Current Medications: Active Medications Acetaminophen (Tylenol Oral Solution -) 650 mg GT Q4H PRN PRN Reason: PAIN LEVEL 1-5 Last Admin: 05/08/19 11:11 Dose: 650 mg Ascorbic Acid (Vitamin C Oral Solution -) 500 mg GT BID [facility] Last Admin: 05/08/19 11:12 Dose: 500 mg Budesonide/Formoterol Fumarate (Symbicort 160/4.5mcg -) 2 puff IH BID [facility] Last Admin: 05/08/19 11:12 Dose: 2 puff Carbidopa/Levodopa (Sinemet 25/100 -) 2 each GT 0700,1200,1700 [facility] Last Admin: 05/08/19 18:19 Dose: 2 each Hydrocortisone (Hytone 1% Cream -) 1 applic TP BID [facility] Last Admin: 05/08/19 11:12 Dose: 1 applic Melatonin (Melatonin) 5 mg NR HS PRN PRN Reason: INSOMNIA Last Admin: 05/07/19 23:46 Dose: 5 mg Nystatin (Nystatin Oral Suspension -) 500,000 units PO Q6HPO [facility] Last Admin: 05/08/19 18:19 Dose: 500,000 units Nystatin (Mycostatin Cream -) 1 applic TP BID [facility] Last Admin: 05/08/19 11:12 Dose: 1 applic Prednisone (Deltasone -) 40 mg GT DAILY [facility] Last Admin: 05/08/19 11:11 Dose: 40 mg Sertraline HCl 50 mg/ (Sertraline HCl 25 mg) 75 mg GT DAILY [facility] Last Admin: 05/08/19 11:11 Dose: 75 mg Silver Sulfadiazine (Silvadene -) 1 applic TP BID [facility] Last Admin: 05/08/19 11:13 Dose: 1 applic Tiotropium [place] (Spiriva Respimat) 2 puff IH DAILY [facility] Last Admin: 05/08/19 11:12 Dose: 2 puff Zinc Oxide/Panthenol/Vitamin E (Balmex Cream -) 1 applic TP BID [facility] Last Admin: 05/08/19 11:13 Dose: 1 applic - Objective Vital Signs: Vital Signs Temperature 98.5 F 05/08/19 17:18 Pulse Rate 116 H 05/08/19 17:18 Respiratory Rate 20 05/08/19 17:18 Blood Pressure 114/74 05/08/19 17:18 O2 Sat by Pulse Oximetry (%) 100 05/06/19 20:41 Constitutional: Yes: Mild Distress Respiratory: Yes: Rhonchi Gastrointestinal: Yes: Normal Bowel Sounds, Soft Genitourinary: Yes: WNL Edema: No Integumentary: Yes: Bruising Neurological: Yes: Alert Labs: CBC, BMP 05/08/19 08:10 05/08/19 08:10 INR, PTT INR 1.14 (0.83-1.09) H 05/04/19 07:30 Problem List - Problems (1) Pulmonary hypertension Code(s): I27.20 - PULMONARY HYPERTENSION, UNSPECIFIED (2) Acute exacerbation of chronic obstructive pulmonary disease Code(s): J44.1 - CHRONIC OBSTRUCTIVE PULMONARY DISEASE W (ACUTE) EXACERBATION (3) Acute hypoxemic respiratory failure Code(s): J96.01 - ACUTE RESPIRATORY FAILURE WITH HYPOXIA (4) Bipolar 1 disorder Code(s): F31.9 - BIPOLAR DISORDER, UNSPECIFIED (5) Bronchiectasis Code(s): J47.9 - BRONCHIECTASIS, UNCOMPLICATED (6) CHF (congestive heart failure) Code(s): I50.9 - HEART FAILURE, UNSPECIFIED (7) Emphysema of lung Code(s): J43.9 - EMPHYSEMA, UNSPECIFIED (8) HTN (hypertension) Code(s): I10 - ESSENTIAL (PRIMARY) HYPERTENSION (9) Renal failure Code(s): N19 - UNSPECIFIED KIDNEY FAILURE (10) SOB (shortness of breath) Code(s): R06.02 - SHORTNESS OF BREATH Assessment/Plan - no significant clinical improvement - continue supportive care Prognosis poor
--- NOTE | 2019-05-08 21:37 | PN ---
Progress Note, Physician History of Present Illness: Pt is stable No fever Mild SOB - Current Medication List Current Medications: Active Medications Acetaminophen (Tylenol Oral Solution -) 650 mg GT Q4H PRN PRN Reason: PAIN LEVEL 1-5 Last Admin: 05/08/19 11:11 Dose: 650 mg Ascorbic Acid (Vitamin C Oral Solution -) 500 mg GT BID [facility] Last Admin: 05/08/19 11:12 Dose: 500 mg Budesonide/Formoterol Fumarate (Symbicort 160/4.5mcg -) 2 puff IH BID [facility] Last Admin: 05/08/19 11:12 Dose: 2 puff Carbidopa/Levodopa (Sinemet 25/100 -) 2 each GT 0700,1200,1700 [facility] Last Admin: 05/08/19 18:19 Dose: 2 each Hydrocortisone (Hytone 1% Cream -) 1 applic TP BID [facility] Last Admin: 05/08/19 11:12 Dose: 1 applic Melatonin (Melatonin) 5 mg NR HS PRN PRN Reason: INSOMNIA Last Admin: 05/07/19 23:46 Dose: 5 mg Nystatin (Nystatin Oral Suspension -) 500,000 units PO Q6HPO [facility] Last Admin: 05/08/19 18:19 Dose: 500,000 units Nystatin (Mycostatin Cream -) 1 applic TP BID [facility] Last Admin: 05/08/19 11:12 Dose: 1 applic Prednisone (Deltasone -) 40 mg GT DAILY [facility] Last Admin: 05/08/19 11:11 Dose: 40 mg Sertraline HCl 50 mg/ (Sertraline HCl 25 mg) 75 mg GT DAILY [facility] Last Admin: 05/08/19 11:11 Dose: 75 mg Silver Sulfadiazine (Silvadene -) 1 applic TP BID [facility] Last Admin: 05/08/19 11:13 Dose: 1 applic Tiotropium [place] (Spiriva Respimat) 2 puff IH DAILY [facility] Last Admin: 05/08/19 11:12 Dose: 2 puff Zinc Oxide/Panthenol/Vitamin E (Balmex Cream -) 1 applic TP BID [facility] Last Admin: 05/08/19 11:13 Dose: 1 applic - Objective Vital Signs: Vital Signs Temperature 98.5 F 05/08/19 17:18 Pulse Rate 116 H 05/08/19 17:18 Respiratory Rate 20 01/18/20 17:18 Blood Pressure 114/74 05/08/19 17:18 O2 Sat by Pulse Oximetry (%) 100 05/08/19 09:00 Constitutional: Yes: Calm Eyes: Yes: Conjunctiva Clear, EOM Intact HENT: Yes: Atraumatic, Normocephalic Neck: Yes: Supple, Trachea Midline Cardiovascular: Yes: Regular Rate and Rhythm, S1, S2 Respiratory: Yes: Regular, CTA Bilaterally Gastrointestinal: Yes: Normal Bowel Sounds, Soft Edema: Yes Peripheral Pulses WNL: Yes Labs: CBC, BMP 05/08/19 08:10 05/08/19 08:10 INR, PTT INR 1.14 (0.83-1.09) H 05/04/19 07:30 Problem List - Problems (1) Pulmonary hypertension Code(s): I27.20 - PULMONARY HYPERTENSION, UNSPECIFIED (2) GERD (gastroesophageal reflux disease) Code(s): K21.9 - GASTRO-ESOPHAGEAL REFLUX DISEASE WITHOUT ESOPHAGITIS (3) Acute diastolic (congestive) heart failure Code(s): I50.31 - ACUTE DIASTOLIC (CONGESTIVE) HEART FAILURE (4) Acute exacerbation of chronic obstructive pulmonary disease Code(s): J44.1 - CHRONIC OBSTRUCTIVE PULMONARY DISEASE W (ACUTE) EXACERBATION (5) Acute hypoxemic respiratory failure Code(s): J96.01 - ACUTE RESPIRATORY FAILURE WITH HYPOXIA (6) Bipolar 1 disorder Code(s): F31.9 - BIPOLAR DISORDER, UNSPECIFIED (7) Bronchiectasis Code(s): J47.9 - BRONCHIECTASIS, UNCOMPLICATED (8) CHF (congestive heart failure), NYHA class II Code(s): I50.9 - HEART FAILURE, UNSPECIFIED (9) Chronic kidney disease (CKD) Code(s): N18.9 - CHRONIC KIDNEY DISEASE, UNSPECIFIED (10) Elevated troponin Code(s): R74.8 - ABNORMAL LEVELS OF OTHER SERUM ENZYMES (11) Emphysema of lung Code(s): J43.9 - EMPHYSEMA, UNSPECIFIED (12) Hypotension Code(s): I95.9 - HYPOTENSION, UNSPECIFIED (13) HTN (hypertension) Code(s): I10 - ESSENTIAL (PRIMARY) HYPERTENSION (14) Insomnia disorder Code(s): G47.00 - INSOMNIA, UNSPECIFIED Assessment/Plan (1) Pulmonary hypertension Code(s): I27.20 - PULMONARY HYPERTENSION, UNSPECIFIED (2) GERD (gastroesophageal reflux disease) Code(s): K21.9 - GASTRO-ESOPHAGEAL REFLUX DISEASE WITHOUT ESOPHAGITIS (3) Acute diastolic (congestive) heart failure Code(s): I50.31 - ACUTE DIASTOLIC (CONGESTIVE) HEART FAILURE (4) Acute exacerbation of chronic obstructive pulmonary disease Code(s): J44.1 - CHRONIC OBSTRUCTIVE PULMONARY DISEASE W (ACUTE) EXACERBATION (5) Acute hypoxemic respiratory failure Code(s): J96.01 - ACUTE RESPIRATORY FAILURE WITH HYPOXIA (6) Bipolar 1 disorder Code(s): F31.9 - BIPOLAR DISORDER, UNSPECIFIED (7) Bronchiectasis Code(s): J47.9 - BRONCHIECTASIS, UNCOMPLICATED (8) CHF (congestive heart failure), NYHA class II Code(s): I50.9 - HEART FAILURE, UNSPECIFIED (9) Chronic kidney disease (CKD) Code(s): N18.9 - CHRONIC KIDNEY DISEASE, UNSPECIFIED (10) Elevated troponin Code(s): R74.8 - ABNORMAL LEVELS OF OTHER SERUM ENZYMES (11) Emphysema of lung Code(s): J43.9 - EMPHYSEMA, UNSPECIFIED (12) Hypotension Code(s): I95.9 - HYPOTENSION, UNSPECIFIED (13) HTN (hypertension) Code(s): I10 - ESSENTIAL (PRIMARY) HYPERTENSION (14) Insomnia disorder Code(s): G47.00 - INSOMNIA, UNSPECIFIED Pt tolerating the feeding Spoke with [employer] school social science teacher and also for DC planning to STR
[2019-05-09] MEDS: NYSTATIN 500,000 UNITS/5 ML SUSPENSION PO SCH ×4 (06:18→22:59)
[2019-05-09] MEDS: CARBIDOPA/LEVODOPA 25/100 TABLET (FP) GT SCH ×3 (06:18→16:48)
[2019-05-09 09:49] LABS: BASO % 0.4 % (0-2.0); EOS % 0.6 % (0-4.5); HEMATOCRIT 30.2 % (35.4-49); HEMOGLOBIN 10.1 GM/dL (11.7-16.9); LYMPH % 4.7 % (8-40); MCH 32.9 pg (25.7-33.7); MCHC 33.3 g/dl (32.0-35.9); MEAN CELL VOLUME 98.7 fl (80-96); MEAN PLT VOLUME 8.8 fl (7.5-11.1); MONO % 3.5 % (3.8-10.2); NEUT % 90.8 % (42.8-82.8); PLATELET COUNT 231 K/MM3 (134-434); RBC 3.06 M/mm3 (4.00-5.60); RDW 16.7 % (11.9-15.9); WHITE BLOOD COUNT 12.5 K/mm3 (4.0-10.0)
[2019-05-09 10:24] LABS: BLOOD UREA NITROGEN 54.2 mg/dL (7-18); CALCIUM 8.3 mg/dL (8.5-10.1); CREATININE 0.6 mg/dL (0.55-1.3); POTASSIUM 3.4 mmol/L (3.5-5.1)
--- NOTE | 2019-05-09 10:39 | PN ---
Progress Note (short form) - Note Progress Note: s: lethargic Current Medications Generic Name Dose Route Start Last Admin Trade Name Freq PRN Reason Stop Dose Admin Acetaminophen 650 mg 05/06/19 09:38 05/08/19 23:09 Tylenol Oral Solution - GT 650 mg Q4H PRN Administration PAIN LEVEL 1-5 Ascorbic Acid 500 mg 05/06/19 09:38 05/08/19 23:11 Vitamin C Oral Solution - GT 500 mg BID [facility] Administration Budesonide/Formoterol Fumarate 2 puff 04/08/19 13:30 05/08/19 23:13 Symbicort 160/4.5mcg - IH 2 puff BID [facility] Administration Carbidopa/Levodopa 2 each 05/06/19 19:37 05/09/19 06:18 Sinemet 25/100 - GT 2 each 0700,1200,1700 [facility] Administration Hydrocortisone 1 applic 05/04/19 22:00 05/08/19 23:12 Hytone 1% Cream - TP 1 applic BID [facility] Administration Melatonin 5 mg 05/06/19 09:39 05/07/19 23:46 Melatonin NR 5 mg HS PRN Administration INSOMNIA Nystatin 500,000 units 04/19/19 12:00 05/09/19 06:18 Nystatin Oral Suspension - PO 500,000 units Q6HPO [facility] Administration Nystatin 1 applic 05/04/19 22:00 05/08/19 23:12 Mycostatin Cream - TP 1 applic BID [facility] Administration Prednisone 40 mg 05/06/19 09:40 05/08/19 11:11 Deltasone - GT 40 mg DAILY [facility] Administration Sertraline HCl 50 mg/ 75 mg 05/06/19 09:39 05/08/19 11:11 Sertraline HCl 25 mg GT 75 mg DAILY [facility] Administration Silver Sulfadiazine 1 applic 04/07/19 22:00 05/08/19 23:13 Silvadene - TP 1 applic BID [facility] Administration Tiotropium [place] 2 puff 04/13/19 10:30 05/08/19 11:12 Spiriva Respimat IH 2 puff DAILY [facility] Administration Zinc Oxide/Panthenol/Vitamin E 1 applic 04/07/19 22:00 05/08/19 23:12 Balmex Cream - TP 1 applic BID [facility] Administration Vital Signs Period Temp Pulse Resp BP Sys/[place] Pulse Ox Last 24 Hr 97.8 F-98.5 F 98-124 18-20 114-130/62-78 98 Constitutional: Yes: Well Nourished, No Distress, Calm Cardiovascular: Yes: Regular Rate and Rhythm, S1, S2. No: JVD, Gallop, Murmur Respiratory: Yes: bl rhonchi, poor eff Extremities: No: Cold Edema: No Neurological: awake Psychiatric: No: Agitated no jaundice diaphoresis CBC, BMP 05/09/19 07:35 05/09/19 07:35 Assessment/Plan echo 02/2019 tds, nl LV function, RV not well visualized, severe pulm HTN >60 mmHg RVSP stress echo 04/07: apical ischemia a.e. COPD, acute HFpEF, severe pulm HTN ? cor pulmonale - persistent sob, cxr w/o chf - steroids, BDs, suppl O2 per pulm - metoprolol dc'ed given prolonged, symptomatic airways dz sx's here, and EF has normalized elevated trop: - borderline trop, flat trend, not c/w acs - EKG no ischemic changes history of stress induced CM: with mild acute on chronic diastolic CHF exacerbation in setting of increased IVF - nl EF on echo 02/2019 - cont lisinopril. hold BB, as above (? contributing to copd sx's) DOIRS on CKD: - renal fxn improved PSVT/PAT: - brief runs, off tele now - off metoprolol as above CAD: - +apical ischemia 03/2018 managed medically - no angina - cont aspirin, statin. 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
[2019-05-09] MEDS ORDERED: SERTRALINE HCL 25 MG TABLET (FP) ONE (11:34)
[2019-05-09] MEDS ORDERED: SERTRALINE HCL 50 MG TABLET (FP) ONE (11:35)
[2019-05-09] MEDS ORDERED: PT OWN MED DRAWER 7, Y5N ONE ×2 (11:35→20:02)
[2019-05-09] MEDS: SILVER SULFADIAZINE 1% TOP CREAM 50 GM JAR TP SCH ×2 (11:44→23:03)
[2019-05-09] MEDS: SERTRALINE HCL 50 MG, SERTRALINE HCL 25 MG GT SCH (11:44)
[2019-05-09] MEDS: predniSONE 20 MG TABLET (UD) GT SCH (11:44)
[2019-05-09] MEDS: ACETAMINOPHEN 650 MG/20.3 ML ORAL SOLUTION (CUPS) GT PRN ×2 (11:44→16:48)
[2019-05-09] MEDS: ZINC OXIDE/PANTHENOL/VITAMIN E 56 GM TUBE TP SCH ×2 (11:45→23:03)
[2019-05-09] MEDS: BUDESONIDE/FORMETEROL FUMARATE 160/4.5 mcg INHALER IH SCH ×2 (11:45→23:01)
[2019-05-09] MEDS: TIOTROPIUM BROMIDE 2.5 MCG (SPIRIVA) RESPIMAT INHALER IH SCH (11:45)
[2019-05-09] MEDS: HYDROCORTISONE 1% TOPICAL CREAM 30 GM TUBE TP SCH ×2 (11:45→23:01)
[2019-05-09] MEDS: NYSTATIN 100,000 UNIT/GM TOPICAL CREAM 15 GM TUBE TP SCH ×2 (11:45→23:01)
[2019-05-09] MEDS: ASCORBIC ACID 500 MG/5 ML UNIT DOSE CUP GT SCH (11:46)
--- NOTE | 2019-05-09 13:05 | PN ---
Progress Note (short form) - Note Progress Note: PULMONARY Lethargic today. No fevers recorded. Vital Signs Period Temp Pulse Resp BP Sys/[place] Pulse Ox Last 24 Hr 97.4 F-98.5 F 98-116 18-20 114-130/62-78 98 Gen: NAD at rest Heart: RRR Lung: bilateral rhonchi Abd: soft, nontender Ext: no edema CBC, BMP 05/09/19 07:35 05/09/19 07:35 Active Medications Acetaminophen (Tylenol Oral Solution -) 650 mg GT Q4H PRN PRN Reason: PAIN LEVEL 1-5 Last Admin: 05/09/19 11:44 Dose: 650 mg Ascorbic Acid (Vitamin C Oral Solution -) 500 mg GT BID [facility] Last Admin: 05/09/19 11:46 Dose: 500 mg Budesonide/Formoterol Fumarate (Symbicort 160/4.5mcg -) 2 puff IH BID [facility] Last Admin: 05/09/19 11:45 Dose: 2 puff Carbidopa/Levodopa (Sinemet 25/100 -) 2 each GT 0700,1200,1700 [facility] Last Admin: 05/09/19 11:44 Dose: 2 each Hydrocortisone (Hytone 1% Cream -) 1 applic TP BID [facility] Last Admin: 05/09/19 11:45 Dose: 1 applic Melatonin (Melatonin) 5 mg NR HS PRN PRN Reason: INSOMNIA Last Admin: 05/07/19 23:46 Dose: 5 mg Nystatin (Nystatin Oral Suspension -) 500,000 units PO Q6HPO [facility] Last Admin: 05/09/19 11:44 Dose: 500,000 units Nystatin (Mycostatin Cream -) 1 applic TP BID [facility] Last Admin: 05/09/19 11:45 Dose: 1 applic Prednisone (Deltasone -) 40 mg GT DAILY [facility] Last Admin: 05/09/19 11:44 Dose: 40 mg Sertraline HCl 50 mg/ (Sertraline HCl 25 mg) 75 mg GT DAILY [facility] Last Admin: 05/09/19 11:44 Dose: 75 mg Silver Sulfadiazine (Silvadene -) 1 applic TP BID [facility] Last Admin: 05/09/19 11:44 Dose: 1 applic Tiotropium [place] (Spiriva Respimat) 2 puff IH DAILY [facility] Last Admin: 01/19/20 11:45 Dose: 2 puff Zinc Oxide/Panthenol/Vitamin E (Balmex Cream -) 1 applic TP BID [facility] Last Admin: 05/09/19 11:45 Dose: 1 applic A/P Acute COPD Exacerbation/End Stage COPD Chronic Hypoxic Respiratory Failure Severe Pulmonary HTN CAD Hyponatremia HTN Malnutrition - slow prednisone taper - inhaled bronchodilators standing and PRN - symbicort, spiriva - O2 to keep SpO2 >90% - monitor lytes - DVT prophylaxis - poor overall prognosis, recommend palliative care Problem List - Problems (1) COPD exacerbation Code(s): J44.1 - CHRONIC OBSTRUCTIVE PULMONARY DISEASE W (ACUTE) EXACERBATION
[2019-05-09 13:11] LABS: ANISOCYTOSIS 1+; MACROCYTOSIS 0; OVALOCYTE 1+; PLATELET ESTIMATE NORMAL; TEAR DROP CELLS 1+
[2019-05-09] MEDS ORDERED: LIPASE/PROTEASE/AMYLASE 6,000 UNIT CAPSULE NR ONE (16:45)
[2019-05-09] MEDS: CARBIDOPA/LEVODOPA 25/100 TABLET (FP) PO SCH (16:56)
[2019-05-09] MEDS ORDERED: ACETAMINOPHEN 650 MG/20.3 ML ORAL SOLUTION (CUPS) PO PRN (16:57)
--- NOTE | 2019-05-09 18:14 | PN ---
Progress Note, Physician History of Present Illness: Pt Peg tube clogged Tried by all no Response we Request to Intervene No Fever No SOB - Current Medication List Current Medications: Active Medications Acetaminophen (Tylenol Oral Solution -) 650 mg PO Q4H PRN PRN Reason: PAIN LEVEL 1-5 Ascorbic Acid (Vitamin C Oral Solution -) 500 mg PO BID [facility] Budesonide/Formoterol Fumarate (Symbicort 160/4.5mcg -) 2 puff IH BID [facility] Last Admin: 05/09/19 11:45 Dose: 2 puff Carbidopa/Levodopa (Sinemet 25/100 -) 2 each PO 0700,1200,1700 [facility] Last Admin: 05/09/19 16:56 Dose: Not Given Hydrocortisone (Hytone 1% Cream -) 1 applic TP BID [facility] Last Admin: 05/09/19 11:45 Dose: 1 applic Melatonin (Melatonin) 5 mg PO HS PRN PRN Reason: INSOMNIA Nystatin (Nystatin Oral Suspension -) 500,000 units PO Q6HPO [facility] Last Admin: 05/09/19 11:44 Dose: 500,000 units Nystatin (Mycostatin Cream -) 1 applic TP BID [facility] Last Admin: 05/09/19 11:45 Dose: 1 applic Prednisone (Deltasone -) 40 mg PO DAILY [facility] Sertraline HCl 50 mg/ (Sertraline HCl 25 mg) 75 mg PO DAILY [facility] Silver Sulfadiazine (Silvadene -) 1 applic TP BID [facility] Last Admin: 05/09/19 11:44 Dose: 1 applic Tiotropium [place] (Spiriva Respimat) 2 puff IH DAILY [facility] Last Admin: 05/09/19 11:45 Dose: 2 puff Zinc Oxide/Panthenol/Vitamin E (Balmex Cream -) 1 applic TP BID [facility] Last Admin: 05/09/19 11:45 Dose: 1 applic - Objective Vital Signs: Vital Signs Temperature 97.4 F L 05/09/19 10:00 Pulse Rate 106 H 05/09/19 10:00 Respiratory Rate 18 05/09/19 10:00 Blood Pressure 114/68 05/09/19 10:00 O2 Sat by Pulse Oximetry (%) 100 05/09/19 09:00 Constitutional: Yes: Anxious Eyes: Yes: Conjunctiva Clear, EOM Intact HENT: Yes: Atraumatic, Normocephalic Neck: Yes: Supple, Trachea Midline Cardiovascular: Yes: Regular Rate and Rhythm, S1, S2 Respiratory: Yes: Regular, CTA Bilaterally Gastrointestinal: Yes: Normal Bowel Sounds, Soft Labs: CBC, BMP 05/09/19 07:35 05/09/19 07:35 INR, PTT INR 1.14 (0.83-1.09) H 05/04/19 07:30 Problem List - Problems (1) Pulmonary hypertension Code(s): I27.20 - PULMONARY HYPERTENSION, UNSPECIFIED (2) GERD (gastroesophageal reflux disease) Code(s): K21.9 - GASTRO-ESOPHAGEAL REFLUX DISEASE WITHOUT ESOPHAGITIS (3) Acute diastolic (congestive) heart failure Code(s): I50.31 - ACUTE DIASTOLIC (CONGESTIVE) HEART FAILURE (4) Acute exacerbation of chronic obstructive pulmonary disease Code(s): J44.1 - CHRONIC OBSTRUCTIVE PULMONARY DISEASE W (ACUTE) EXACERBATION (5) Acute hypoxemic respiratory failure Code(s): J96.01 - ACUTE RESPIRATORY FAILURE WITH HYPOXIA (6) Bipolar 1 disorder Code(s): F31.9 - BIPOLAR DISORDER, UNSPECIFIED (7) Bronchiectasis Code(s): J47.9 - BRONCHIECTASIS, UNCOMPLICATED (8) CHF (congestive heart failure), NYHA class II Code(s): I50.9 - HEART FAILURE, UNSPECIFIED (9) Chronic kidney disease (CKD) Code(s): N18.9 - CHRONIC KIDNEY DISEASE, UNSPECIFIED (10) Elevated troponin Code(s): R74.8 - ABNORMAL LEVELS OF OTHER SERUM ENZYMES (11) Emphysema of lung Code(s): J43.9 - EMPHYSEMA, UNSPECIFIED (12) Hypotension Code(s): I95.9 - HYPOTENSION, UNSPECIFIED (13) HTN (hypertension) Code(s): I10 - ESSENTIAL (PRIMARY) HYPERTENSION (14) Insomnia disorder Code(s): G47.00 - INSOMNIA, UNSPECIFIED Assessment/Plan (1) Pulmonary hypertension Code(s): I27.20 - PULMONARY HYPERTENSION, UNSPECIFIED (2) GERD (gastroesophageal reflux disease) Code(s): K21.9 - GASTRO-ESOPHAGEAL REFLUX DISEASE WITHOUT ESOPHAGITIS (3) Acute diastolic (congestive) heart failure Code(s): I50.31 - ACUTE DIASTOLIC (CONGESTIVE) HEART FAILURE (4) Acute exacerbation of chronic obstructive pulmonary disease Code(s): J44.1 - CHRONIC OBSTRUCTIVE PULMONARY DISEASE W (ACUTE) EXACERBATION (5) Acute hypoxemic respiratory failure Code(s): J96.01 - ACUTE RESPIRATORY FAILURE WITH HYPOXIA (6) Bipolar 1 disorder Code(s): F31.9 - BIPOLAR DISORDER, UNSPECIFIED (7) Bronchiectasis Code(s): J47.9 - BRONCHIECTASIS, UNCOMPLICATED (8) CHF (congestive heart failure), NYHA class II Code(s): I50.9 - HEART FAILURE, UNSPECIFIED (9) Chronic kidney disease (CKD) Code(s): N18.9 - CHRONIC KIDNEY DISEASE, UNSPECIFIED (10) Elevated troponin Code(s): R74.8 - ABNORMAL LEVELS OF OTHER SERUM ENZYMES (11) Emphysema of lung Code(s): J43.9 - EMPHYSEMA, UNSPECIFIED (12) Hypotension Code(s): I95.9 - HYPOTENSION, UNSPECIFIED (13) HTN (hypertension) Code(s): I10 - ESSENTIAL (PRIMARY) HYPERTENSION (14) Insomnia disorder Code(s): G47.00 - INSOMNIA, UNSPECIFIED Pt Peg tube clogged Pt will be on IV fluids Pt to get meds orally IR to to Intervene
[2019-05-09] MEDS ORDERED: DEXTROSE 5%-0.45% SALINE 1,000 ML IV SCH (21:00)
--- NOTE | 2019-05-09 22:04 | PN ---
Progress Note, Physician History of Present Illness: Pt is extremely weak. Remains afebrile. GT clogged. - Current Medication List Current Medications: Active Medications Acetaminophen (Tylenol Oral Solution -) 650 mg PO Q4H PRN PRN Reason: PAIN LEVEL 1-5 Ascorbic Acid (Vitamin C Oral Solution -) 500 mg PO BID [facility] Budesonide/Formoterol Fumarate (Symbicort 160/4.5mcg -) 2 puff IH BID [facility] Last Admin: 05/09/19 11:45 Dose: 2 puff Carbidopa/Levodopa (Sinemet 25/100 -) 2 each PO 0700,1200,1700 [facility] Last Admin: 05/09/19 16:56 Dose: Not Given Hydrocortisone (Hytone 1% Cream -) 1 applic TP BID [facility] Last Admin: 05/09/19 11:45 Dose: 1 applic Dextrose/Sodium Chloride (D5-1/2ns -) 1,000 mls @ 42 mls/hr IV ASDIR [facility] Melatonin (Melatonin) 5 mg PO HS PRN PRN Reason: INSOMNIA Nystatin (Nystatin Oral Suspension -) 500,000 units PO Q6HPO [facility] Last Admin: 05/09/19 18:22 Dose: 500,000 units Nystatin (Mycostatin Cream -) 1 applic TP BID [facility] Last Admin: 05/09/19 11:45 Dose: 1 applic Prednisone (Deltasone -) 40 mg PO DAILY [facility] Sertraline HCl 50 mg/ (Sertraline HCl 25 mg) 75 mg PO DAILY [facility] Silver Sulfadiazine (Silvadene -) 1 applic TP BID [facility] Last Admin: 05/09/19 11:44 Dose: 1 applic Tiotropium [place] (Spiriva Respimat) 2 puff IH DAILY [facility] Last Admin: 05/09/19 11:45 Dose: 2 puff Zinc Oxide/Panthenol/Vitamin E (Balmex Cream -) 1 applic TP BID [facility] Last Admin: 05/09/19 11:45 Dose: 1 applic - Objective Vital Signs: Vital Signs Temperature 97.7 F 05/09/19 17:29 Pulse Rate 104 H 05/09/19 17:29 Respiratory Rate 20 05/09/19 17:29 Blood Pressure 128/64 05/09/19 17:29 O2 Sat by Pulse Oximetry (%) 100 05/09/19 09:00 Constitutional: Yes: No Distress Cardiovascular: Yes: Tachycardia Respiratory: Yes: Diminished Gastrointestinal: Yes: Normal Bowel Sounds, Soft Genitourinary: Yes: WNL Neurological: Yes: Weakness Labs: CBC, BMP 05/09/19 07:35 05/09/19 07:35 INR, PTT INR 1.14 (0.83-1.09) H 05/04/19 07:30 Microbiology 04/19/19 07:10 Blood - Peripheral Venous Blood Culture - Final NO GROWTH AFTER 5 DAYS INCUBATION 04/19/19 07:15 Blood - Peripheral Venous Blood Culture - Final NO GROWTH AFTER 5 DAYS INCUBATION 04/10/19 11:30 Sputum - Expectorated Gram Stain - Final 04/10/19 11:30 Sputum - Expectorated Sputum Culture - Final Stenotrophomon.(X.)Maltophilia Problem List - Problems (1) Pulmonary hypertension Code(s): I27.20 - PULMONARY HYPERTENSION, UNSPECIFIED (2) Acute exacerbation of chronic obstructive pulmonary disease Code(s): J44.1 - CHRONIC OBSTRUCTIVE PULMONARY DISEASE W (ACUTE) EXACERBATION (3) Acute hypoxemic respiratory failure Code(s): J96.01 - ACUTE RESPIRATORY FAILURE WITH HYPOXIA (4) Bipolar 1 disorder Code(s): F31.9 - BIPOLAR DISORDER, UNSPECIFIED (5) Bronchiectasis Code(s): J47.9 - BRONCHIECTASIS, UNCOMPLICATED (6) CHF (congestive heart failure) Code(s): I50.9 - HEART FAILURE, UNSPECIFIED (7) Emphysema of lung Code(s): J43.9 - EMPHYSEMA, UNSPECIFIED (8) HTN (hypertension) Code(s): I10 - ESSENTIAL (PRIMARY) HYPERTENSION (9) Renal failure Code(s): N19 - UNSPECIFIED KIDNEY FAILURE (10) SOB (shortness of breath) Code(s): R06.02 - SHORTNESS OF BREATH Assessment/Plan - Pt lethargic, without acute distress, remains afebrile, wbc minimally elevated /stable - s/p multiple courses of antibiotics - continue monitor, provide supportive care
[2019-05-09] MEDS: MELATONIN 5 MG TABLETS PO PRN (22:58)
[2019-05-09] MEDS: ASCORBIC ACID 500 MG/5 ML UNIT DOSE CUP PO SCH (22:59)
[2019-05-10 08:06] LABS: BASO % 0.2 % (0-2.0); HEMATOCRIT 33.7 % (35.4-49); LYMPH % 2.2 % (8-40); MCH 32.4 pg (25.7-33.7); MCHC 32.6 g/dl (32.0-35.9); MEAN CELL VOLUME 99.4 fl (80-96); MEAN PLT VOLUME 8.9 fl (7.5-11.1); MONO % 1.6 % (3.8-10.2); PLATELET COUNT 264 K/MM3 (134-434); RBC 3.39 M/mm3 (4.00-5.60); RDW 16.7 % (11.9-15.9); WHITE BLOOD COUNT 18.9 K/mm3 (4.0-10.0)
[2019-05-10 08:20] LABS: BLOOD UREA NITROGEN 51.3 mg/dL (7-18); CALCIUM 8.7 mg/dL (8.5-10.1); CREATININE 0.5 mg/dL (0.55-1.3); POTASSIUM 3.4 mmol/L (3.5-5.1)
[2019-05-10] MEDS: NYSTATIN 500,000 UNITS/5 ML SUSPENSION PO SCH ×4 (08:26→23:40)
[2019-05-10] MEDS: CARBIDOPA/LEVODOPA 25/100 TABLET (FP) PO SCH ×3 (08:27→18:12)
--- NOTE | 2019-05-10 11:03 | PN ---
Progress Note (short form) - Note Progress Note: PULMONARY VSS/AFEBRILE Gen: Appears chronically ill Heart: RRR Lung: scattered bilateral rhonchi, no wheeze Abd: soft, nontender Ext: no edema - Problems (1) COPD exacerbation Code(s): J44.1 - CHRONIC OBSTRUCTIVE PULMONARY DISEASE W (ACUTE) EXACERBATION A/P Acute COPD Exacerbation Chronic Hypoxic Respiratory Failure Severe Pulmonary HTN CAD HTN - Inhaled bronchodilators - Symbicort - O2 to keep SpO2 >90% - DVT prophylaxis - Prednisone to taper Brittani VIDALES MD
--- NOTE | 2019-05-10 11:03 | PN ---
Progress Note (short form) - Note Progress Note: s: lethargic Current Medications Generic Name Dose Route Start Last Admin Trade Name Freq PRN Reason Stop Dose Admin Acetaminophen 650 mg 05/09/19 16:57 Tylenol Oral Solution - PO Q4H PRN PAIN LEVEL 1-5 Ascorbic Acid 500 mg 05/09/19 22:00 05/09/19 22:59 Vitamin C Oral Solution - PO 500 mg BID [facility] Administration Budesonide/Formoterol Fumarate 2 puff 04/08/19 13:30 05/09/19 23:01 Symbicort 160/4.5mcg - IH 2 puff BID [facility] Administration Carbidopa/Levodopa 2 each 05/09/19 17:00 05/10/19 08:27 Sinemet 25/100 - PO Not Given 0700,1200,1700 [facility] Hydrocortisone 1 applic 05/04/19 22:00 05/09/19 23:01 Hytone 1% Cream - TP 1 applic BID [facility] Administration Dextrose/Sodium Chloride 1,000 mls @ 42 mls/hr 05/09/19 21:00 05/10/19 04:10 D5-1/2ns - IV 42 mls/hr ASDIR [facility] Administration Melatonin 5 mg 05/09/19 22:00 05/09/19 22:58 Melatonin PO 5 mg HS PRN Administration INSOMNIA Nystatin 500,000 units 04/19/19 12:00 05/10/19 08:26 Nystatin Oral Suspension - PO Not Given Q6HPO [facility] Nystatin 1 applic 05/04/19 22:00 05/09/19 23:01 Mycostatin Cream - TP 1 applic BID [facility] Administration Prednisone 40 mg 05/10/19 10:00 Deltasone - PO DAILY [facility] Sertraline HCl 50 mg/ 75 mg 05/10/19 10:00 Sertraline HCl 25 mg PO DAILY [facility] Silver Sulfadiazine 1 applic 04/07/19 22:00 05/09/19 23:03 Silvadene - TP 1 applic BID [facility] Administration Tiotropium [place] 2 puff 04/13/19 10:30 05/09/19 11:45 Spiriva Respimat IH 2 puff DAILY [facility] Administration Zinc Oxide/Panthenol/Vitamin E 1 applic 04/07/19 22:00 05/09/19 23:03 Balmex Cream - TP 1 applic BID [facility] Administration Vital Signs Period Temp Pulse Resp BP Sys/[place] Pulse Ox Last 24 Hr 97.4 F-98.4 F 102-122 15-20 128-138/64-80 97 Constitutional: Yes: Well Nourished, No Distress, Calm Cardiovascular: Yes: Regular Rate and Rhythm, S1, S2. No: JVD, Gallop, Murmur Respiratory: Yes: bl rhonchi, poor eff Extremities: No: Cold Edema: No Neurological:lethargic Psychiatric: No: Agitated no jaundice diaphoresis CBC, BMP 05/10/19 06:43 05/10/19 06:43 Assessment/Plan echo 02/2019 tds, nl LV function, RV not well visualized, severe pulm HTN >60 mmHg RVSP stress echo 04/07: apical ischemia a.e. COPD, acute HFpEF, severe pulm HTN ? cor pulmonale - persistent sob, cxr w/o chf - steroids, BDs, suppl O2 per pulm - metoprolol dc'ed given prolonged, symptomatic airways dz sx's here, and EF has normalized elevated trop: - borderline trop, flat trend, not c/w acs - EKG no ischemic changes history of stress induced CM: with mild acute on chronic diastolic CHF exacerbation in setting of increased IVF - nl EF on echo 02/2019 - cont lisinopril. hold BB, as above (? contributing to copd sx's) DORIS on CKD: - renal fxn improved PSVT/PAT: - brief runs, off tele now - off metoprolol as above CAD: - +apical ischemia 03/2018 managed medically - no angina - cont aspirin, statin. 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
[2019-05-10] MEDS ORDERED: SERTRALINE HCL 25 MG TABLET (FP) ONE (11:30)
[2019-05-10] MEDS ORDERED: SERTRALINE HCL 50 MG TABLET (FP) ONE (11:31)
[2019-05-10] MEDS: BUDESONIDE/FORMETEROL FUMARATE 160/4.5 mcg INHALER IH SCH ×2 (11:45→23:43)
[2019-05-10] MEDS: predniSONE 20 MG TABLET (UD) PO SCH (11:45)
[2019-05-10] MEDS: SERTRALINE HCL 50 MG, SERTRALINE HCL 25 MG PO SCH (11:46)
[2019-05-10] MEDS: SILVER SULFADIAZINE 1% TOP CREAM 50 GM JAR TP SCH ×2 (11:47→23:40)
[2019-05-10] MEDS: NYSTATIN 100,000 UNIT/GM TOPICAL CREAM 15 GM TUBE TP SCH ×2 (11:49→23:41)
[2019-05-10] MEDS: HYDROCORTISONE 1% TOPICAL CREAM 30 GM TUBE TP SCH ×2 (11:49→23:41)
[2019-05-10] MEDS: ZINC OXIDE/PANTHENOL/VITAMIN E 56 GM TUBE TP SCH ×2 (11:50→23:42)
[2019-05-10] MEDS: TIOTROPIUM BROMIDE 2.5 MCG (SPIRIVA) RESPIMAT INHALER IH SCH (11:50)
--- NOTE | 2019-05-10 11:50 | PN ---
Progress Note, Physician History of Present Illness: no new issues g tube unclogged - Current Medication List Current Medications: Active Medications Acetaminophen (Tylenol Oral Solution -) 650 mg PO Q4H PRN PRN Reason: PAIN LEVEL 1-5 Ascorbic Acid (Vitamin C Oral Solution -) 500 mg PO BID [facility] Last Admin: 05/09/19 22:59 Dose: 500 mg Budesonide/Formoterol Fumarate (Symbicort 160/4.5mcg -) 2 puff IH BID [facility] [place] Last Admin: 05/09/19 23:01 Dose: 2 puff Carbidopa/Levodopa (Sinemet 25/100 -) 2 each PO 0700,1200,1700 [facility] [place] Last Admin: 05/10/19 08:27 Dose: Not Given Hydrocortisone (Hytone 1% Cream -) 1 applic TP BID [facility] [place] Last Admin: 05/09/19 23:01 Dose: 1 applic Dextrose/Sodium Chloride (D5-1/2ns -) 1,000 mls @ 42 mls/hr IV ASDIR [facility] [place] Last Admin: 05/10/19 04:10 Dose: 42 mls/hr Melatonin (Melatonin) 5 mg PO HS PRN PRN Reason: INSOMNIA Last Admin: 05/09/19 22:58 Dose: 5 mg Nystatin (Nystatin Oral Suspension -) 500,000 units PO Q6HPO [facility] [place] Last Admin: 05/10/19 08:26 Dose: Not Given Nystatin (Mycostatin Cream -) 1 applic TP BID [facility] [place] Last Admin: 05/09/19 23:01 Dose: 1 applic Prednisone (Deltasone -) 40 mg PO DAILY [facility] [place] Sertraline HCl 50 mg/ (Sertraline HCl 25 mg) 75 mg PO DAILY [facility] [place] Silver Sulfadiazine (Silvadene -) 1 applic TP BID [facility] [place] Last Admin: 05/09/19 23:03 Dose: 1 applic Tiotropium [place] (Spiriva Respimat) 2 puff IH DAILY [facility] [place] Last Admin: 05/09/19 11:45 Dose: 2 puff Zinc Oxide/Panthenol/Vitamin E (Balmex Cream -) 1 applic TP BID [facility] [place] Last Admin: 05/09/19 23:03 Dose: 1 applic - Objective Vital Signs: Vital Signs Temperature 98.1 F 05/10/19 06:00 Pulse Rate 122 H 05/10/19 06:00 Respiratory Rate 20 05/10/19 06:00 Blood Pressure 138/79 01/20/20 06:00 O2 Sat by Pulse Oximetry (%) 97 05/09/19 21:00 Constitutional: Yes: No Distress, Calm Cardiovascular: Yes: S1, S2 Respiratory: Yes: On Nasal O2, Poor Air Entry, Rhonchi Gastrointestinal: Yes: Normal Bowel Sounds, Soft, Other (peg) Musculoskeletal: Yes: WNL Extremities: Yes: WNL Neurological: Yes: Alert, Oriented Psychiatric: Yes: Alert, Oriented Labs: CBC, BMP 05/10/19 06:43 05/10/19 06:43 INR, PTT INR 1.14 (0.83-1.09) H 05/04/19 07:30 Assessment/Plan Problem List - Problems (1) Pulmonary hypertension Code(s): I27.20 - PULMONARY HYPERTENSION, UNSPECIFIED (2) GERD (gastroesophageal reflux disease) Code(s): K21.9 - GASTRO-ESOPHAGEAL REFLUX DISEASE WITHOUT ESOPHAGITIS (3) Acute diastolic (congestive) heart failure Code(s): I50.31 - ACUTE DIASTOLIC (CONGESTIVE) HEART FAILURE (4) Acute exacerbation of chronic obstructive pulmonary disease Code(s): J44.1 - CHRONIC OBSTRUCTIVE PULMONARY DISEASE W (ACUTE) EXACERBATION (5) Acute hypoxemic respiratory failure Code(s): J96.01 - ACUTE RESPIRATORY FAILURE WITH HYPOXIA (6) Bipolar 1 disorder Code(s): F31.9 - BIPOLAR DISORDER, UNSPECIFIED (7) Bronchiectasis Code(s): J47.9 - BRONCHIECTASIS, UNCOMPLICATED (8) CHF (congestive heart failure), NYHA class II Code(s): I50.9 - HEART FAILURE, UNSPECIFIED (9) Chronic kidney disease (CKD) Code(s): N18.9 - CHRONIC KIDNEY DISEASE, UNSPECIFIED (10) Elevated troponin Code(s): R74.8 - ABNORMAL LEVELS OF OTHER SERUM ENZYMES (11) Emphysema of lung Code(s): J43.9 - EMPHYSEMA, UNSPECIFIED (12) Hypotension Code(s): I95.9 - HYPOTENSION, UNSPECIFIED (13) HTN (hypertension) Code(s): I10 - ESSENTIAL (PRIMARY) HYPERTENSION (14) Insomnia disorder Code(s): G47.00 - INSOMNIA, UNSPECIFIED plan continue to monitor nutrition avoid fluid overload resp support
[2019-05-10] MEDS: ASCORBIC ACID 500 MG/5 ML UNIT DOSE CUP PO SCH ×2 (11:54→23:39)
[2019-05-10 12:28] LABS: ANISOCYTOSIS 1+; MACROCYTOSIS 0; OVALOCYTE 1+; PLATELET ESTIMATE NORMAL; TEAR DROP CELLS 1+; TOXIC GRANULATION 1+
--- NOTE | 2019-05-10 15:19 | PN ---
Progress Note (short form) - Note Progress Note: 89 year old male history of HTN,COPD, CAD. Patient came for shortness of breath and has been treated with steroid and abx, pateint has difficulty with breathing. He also have history of parkinson disease diagnosed by Dr Gardner and he is taking sinemet 1 tab ( 25/100) tid. no new focal symptoms, peg tube clogged over the weekend NEUROLOGICAL EXAMINATION Alert oriented x 2, neck is supple eomi, pupils reactive no face asymmetry moving all extremity there is bradykinesia and mild tremors were identified( more so on right side) sensation is normal , strength is normal Assessment/Plan 89 year old male history of HTN,COPD, CAD. He has history of PD for two yeas, and now on sinemet 25/100 two tab po tid. s/p peg tube placement and it got clogged over the weekend , he is sleepy today. Plan: continue to watch on sinemet (25/100)two tab po tid - waiting to go to short term rehab Thanking you so much Keegan Ko MD
[2019-05-10] MEDS ORDERED: POTASSIUM CHLORIDE ORAL LIQUID 20 MEQ/15 ML PO ONE (15:50)
--- NOTE | 2019-05-10 15:51 | PN ---
Progress Note, Physician History of Present Illness: Pt peg Tube unclogged today Meds can be given orally Feeding by G tube discussed with Nurse on floor No Fever - Current Medication List Current Medications: Active Medications Acetaminophen (Tylenol Oral Solution -) 650 mg PO Q4H PRN PRN Reason: PAIN LEVEL 1-5 Ascorbic Acid (Vitamin C Oral Solution -) 500 mg PO BID [facility] Last Admin: 05/10/19 11:54 Dose: 500 mg Budesonide/Formoterol Fumarate (Symbicort 160/4.5mcg -) 2 puff IH BID [facility] Last Admin: 05/10/19 11:45 Dose: 2 puff Carbidopa/Levodopa (Sinemet 25/100 -) 2 each PO 0700,1200,1700 [facility] Last Admin: 05/10/19 11:46 Dose: 2 each Hydrocortisone (Hytone 1% Cream -) 1 applic TP BID [facility] Last Admin: 05/10/19 11:49 Dose: 1 applic Dextrose/Sodium Chloride (D5-1/2ns -) 1,000 mls @ 42 mls/hr IV ASDIR [facility] Last Admin: 05/10/19 04:10 Dose: 42 mls/hr Melatonin (Melatonin) 5 mg PO HS PRN PRN Reason: INSOMNIA Last Admin: 05/09/19 22:58 Dose: 5 mg Nystatin (Nystatin Oral Suspension -) 500,000 units PO Q6HPO [facility] Last Admin: 05/10/19 11:45 Dose: 500,000 units Nystatin (Mycostatin Cream -) 1 applic TP BID [facility] Last Admin: 05/10/19 11:49 Dose: 1 applic Prednisone (Deltasone -) 40 mg PO DAILY [facility] Last Admin: 05/10/19 11:45 Dose: 40 mg Sertraline HCl 50 mg/ (Sertraline HCl 25 mg) 75 mg PO DAILY [facility] Last Admin: 05/10/19 11:46 Dose: 75 mg Silver Sulfadiazine (Silvadene -) 1 applic TP BID [facility] Last Admin: 05/10/19 11:47 Dose: 1 applic Tiotropium [place] (Spiriva Respimat) 2 puff IH DAILY [facility] Last Admin: 05/10/19 11:50 Dose: 2 puff Zinc Oxide/Panthenol/Vitamin E (Balmex Cream -) 1 applic TP BID [facility] Last Admin: 05/10/19 11:50 Dose: 1 applic - Objective Vital Signs: Vital Signs Temperature 98.1 F 05/10/19 06:00 Pulse Rate 122 H 05/10/19 06:00 Respiratory Rate 05/10/19 06:00 Blood Pressure 138/79 05/10/19 06:00 O2 Sat by Pulse Oximetry (%) 97 05/09/19 21:00 Constitutional: Yes: Anxious Eyes: Yes: Conjunctiva Clear, EOM Intact Neck: Yes: Supple, Trachea Midline Cardiovascular: Yes: Regular Rate and Rhythm, S1, S2 Respiratory: Yes: Regular, CTA Bilaterally Gastrointestinal: Yes: Normal Bowel Sounds, Soft Labs: CBC, BMP 05/10/19 06:43 05/10/19 06:43 INR, PTT INR 1.14 (0.83-1.09) H 05/04/19 07:30 Problem List - Problems (1) Pulmonary hypertension Code(s): I27.20 - PULMONARY HYPERTENSION, UNSPECIFIED (2) GERD (gastroesophageal reflux disease) Code(s): K21.9 - GASTRO-ESOPHAGEAL REFLUX DISEASE WITHOUT ESOPHAGITIS (3) Acute diastolic (congestive) heart failure Code(s): I50.31 - ACUTE DIASTOLIC (CONGESTIVE) HEART FAILURE (4) Acute exacerbation of chronic obstructive pulmonary disease Code(s): J44.1 - CHRONIC OBSTRUCTIVE PULMONARY DISEASE W (ACUTE) EXACERBATION (5) Acute hypoxemic respiratory failure Code(s): J96.01 - ACUTE RESPIRATORY FAILURE WITH HYPOXIA (6) Bipolar 1 disorder Code(s): F31.9 - BIPOLAR DISORDER, UNSPECIFIED (7) Bronchiectasis Code(s): J47.9 - BRONCHIECTASIS, UNCOMPLICATED (8) CHF (congestive heart failure), NYHA class II Code(s): I50.9 - HEART FAILURE, UNSPECIFIED (9) Chronic kidney disease (CKD) Code(s): N18.9 - CHRONIC KIDNEY DISEASE, UNSPECIFIED (10) Elevated troponin Code(s): R74.8 - ABNORMAL LEVELS OF OTHER SERUM ENZYMES (11) Emphysema of lung Code(s): J43.9 - EMPHYSEMA, UNSPECIFIED (12) Hypotension Code(s): I95.9 - HYPOTENSION, UNSPECIFIED (13) HTN (hypertension) Code(s): I10 - ESSENTIAL (PRIMARY) HYPERTENSION (14) Insomnia disorder Code(s): G47.00 - INSOMNIA, UNSPECIFIED Assessment/Plan (1) Pulmonary hypertension Code(s): I27.20 - PULMONARY HYPERTENSION, UNSPECIFIED (2) GERD (gastroesophageal reflux disease) Code(s): K21.9 - GASTRO-ESOPHAGEAL REFLUX DISEASE WITHOUT ESOPHAGITIS (3) Acute diastolic (congestive) heart failure Code(s): I50.31 - ACUTE DIASTOLIC (CONGESTIVE) HEART FAILURE (4) Acute exacerbation of chronic obstructive pulmonary disease Code(s): J44.1 - CHRONIC OBSTRUCTIVE PULMONARY DISEASE W (ACUTE) EXACERBATION (5) Acute hypoxemic respiratory failure Code(s): J96.01 - ACUTE RESPIRATORY FAILURE WITH HYPOXIA (6) Bipolar 1 disorder Code(s): F31.9 - BIPOLAR DISORDER, UNSPECIFIED (7) Bronchiectasis Code(s): J47.9 - BRONCHIECTASIS, UNCOMPLICATED (8) CHF (congestive heart failure), NYHA class II Code(s): I50.9 - HEART FAILURE, UNSPECIFIED (9) Chronic kidney disease (CKD) Code(s): N18.9 - CHRONIC KIDNEY DISEASE, UNSPECIFIED (10) Elevated troponin Code(s): R74.8 - ABNORMAL LEVELS OF OTHER SERUM ENZYMES (11) Emphysema of lung Code(s): J43.9 - EMPHYSEMA, UNSPECIFIED (12) Hypotension Code(s): I95.9 - HYPOTENSION, UNSPECIFIED (13) HTN (hypertension) Code(s): I10 - ESSENTIAL (PRIMARY) HYPERTENSION (14) Insomnia disorder Code(s): G47.00 - INSOMNIA, UNSPECIFIED Pt Peg tube clogged today unclogged Pt will be off IV fluids Pt to get meds orally
--- NOTE | 2019-05-10 16:26 | PN ---
Progress Note (short form) - Note Progress Note: Renal follow up for hyponatremia Seen and examined at the bedside awake and alert feels short of breath no other complaints PEG tube not functioning well yesterday, now not clogged as per nurse Vital Signs Temperature 98.2 F 05/10/19 12:00 Pulse Rate 116 H 05/10/19 12:00 Respiratory Rate 05/10/19 12:00 Blood Pressure 134/76 05/10/19 12:00 O2 Sat by Pulse Oximetry (%) 97 05/09/19 21:00 Intake & Output 05/07/19 05/08/19 05/09/19 05/10/19 23:59 23:59 23:59 23:59 Intake Total 1110 610 Output Total 100 100 Balance 1010 510 Weight 57.379 kg 56.727 kg 57.379 kg NAD Course BS soft NT/ND no LE edema, clubbing or cyanosis 05/10/19 06:43 05/10/19 06:43 Current Medications Acetaminophen (Tylenol Oral Solution -) 650 mg PO Q4H PRN PRN Reason: PAIN LEVEL 1-5 Ascorbic Acid (Vitamin C Oral Solution -) 500 mg PO BID [facility] Last Admin: 05/10/19 11:54 Dose: 500 mg Budesonide/Formoterol Fumarate (Symbicort 160/4.5mcg -) 2 puff IH BID [facility] Last Admin: 05/10/19 11:45 Dose: 2 puff Carbidopa/Levodopa (Sinemet 25/100 -) 2 each PO 0700,1200,1700 [facility] Last Admin: 05/10/19 11:46 Dose: 2 each Hydrocortisone (Hytone 1% Cream -) 1 applic TP BID [facility] Last Admin: 05/10/19 11:49 Dose: 1 applic Dextrose/Sodium Chloride (D5-1/2ns -) 1,000 mls @ 42 mls/hr IV ASDIR [facility] Last Admin: 05/10/19 04:10 Dose: 42 mls/hr Melatonin (Melatonin) 5 mg PO HS PRN PRN Reason: INSOMNIA Last Admin: 05/09/19 22:58 Dose: 5 mg Nystatin (Nystatin Oral Suspension -) 500,000 units PO Q6HPO [facility] Last Admin: 05/10/19 11:45 Dose: 500,000 units Nystatin (Mycostatin Cream -) 1 applic TP BID [facility] Last Admin: 05/10/19 11:49 Dose: 1 applic Prednisone (Deltasone -) 40 mg PO DAILY [facility] Last Admin: 05/10/19 11:45 Dose: 40 mg Sertraline HCl 50 mg/ (Sertraline HCl 25 mg) 75 mg PO DAILY [facility] Last Admin: 05/10/19 11:46 Dose: 75 mg Silver Sulfadiazine (Silvadene -) 1 applic TP BID [facility] Last Admin: 05/10/19 11:47 Dose: 1 applic Tiotropium [place] (Spiriva Respimat) 2 puff IH DAILY [facility] Last Admin: 05/10/19 11:50 Dose: 2 puff Zinc Oxide/Panthenol/Vitamin E (Balmex Cream -) 1 applic TP BID [facility] Last Admin: 05/10/19 11:50 Dose: 1 applic 89 year old gentleman with history of COPD, Lung cancer, cardiomyopathy, CKD presented with cough and shortness of breath and noted to have worsening hyponatremia. 1. hyponatremia from poor solute intake + diuretics now resolved 2. Respiratory failure 3. Bronchitis 4. Leukocytosis 5. Mild hypernatremia from decreased oral fluid intake Renal function stable BUN elevated likely related to steroids use Continue free water via G-tube, increased to 400mg Q8h continue tube feeds with free water flushes overall prognosis is guarded Zack Saleem DO
[2019-05-10] MEDS ORDERED: ALBUTEROL SO4 2.5/IPRATROPIUM 0.5 INH SOL 3 ML VIAL.NEB. NEB ONE (21:30)
[2019-05-10] MEDS ORDERED: PT OWN MED DRAWER 7, Y5N ONE (23:24)
[2019-05-10] MEDS: MELATONIN 5 MG TABLETS PO PRN (23:40)
--- NOTE | 2019-05-11 03:48 | PN ---
Progress Note (short form) - Note Progress Note: Nurse entry level account manager called resident office to assess patient. Resident team to the bedside. Patient had been noted for last several hours to be tachypneic, tachycardic, and having elevated temperature. Was given bronchodilator treatment before arrival of resident team. Assessed at the bedside. Patient stated that he felt short of breath and felt that he had difficulty moving air. Physical Exam: General: alert and oriented, in moderate distress. Cardiac: poorly auscultated sounds due to coarse breath sound Pulm: bilateral coarse breath sounds R>L and greater at the bases. Using accessory muscles to breath. Abdomen: PEG tube intact, no erythema around the site. Assessment and Plan: R/O aspiration, COPD Exacerbation Ordered EKG ABG Lactic acid Blood cultures CXR Results EKG with no acute changes ABG with no evidence of retention CXR with questionable infiltrate in RLL, suspicious for aspiration vs PNA. No pleural effusions noted Will give one time dose of Zosyn and have nursing endorse to PCP Encourage suctioning if patient continues to have any secretions or evidence of aspiration
[2019-05-11 04:39] LABS: ARTERIAL BLOOD GAS PCO2 36.2 mmHg (35-45); ARTERIAL BLOOD GAS pH 7.48 (7.35-7.45)
[2019-05-11 04:40] LABS: ALLENS TEST POSITIVE; ARTERIAL BLD GAS O2 SATURATION 85.5 % (95-98); ARTERIAL BLOOD GAS BASE EXCESS 3.9 meq/l (-2-2); ARTERIAL BLOOD GAS PO2 51.5 mmHg (80-100)
[2019-05-11] MEDS: CARBIDOPA/LEVODOPA 25/100 TABLET (FP) PO SCH (05:57)
[2019-05-11] MEDS: NYSTATIN 500,000 UNITS/5 ML SUSPENSION PO SCH (06:05)
[2019-05-11] MEDS ORDERED: PIPERACILLIN/TAZOB 4.5 GM 4.5 GM in DEXTROSE 5%-WATER 100 ML IVPB ONE (06:06)
[2019-05-11] MEDS ORDERED: FUROSEMIDE 40 MG/4 ML INJECTABLE VIAL IVPUSH ONE (06:22)
[2019-05-11] MEDS ORDERED: PIPERACILLIN/TAZOBACTAM 4.5 GM VIAL IVPB ONE (06:31)
[2019-05-11] MEDS ORDERED: DEXTROSE 5%-WATER 100 ML IVPB ONE ×2 (06:32→11:18)
[2019-05-11] MEDS: ALBUTEROL SO4 0.083% IH SOL 2.5 MG/3 ML VIAL.NEB. NEB SCH ×2 (08:40→12:09)
[2019-05-11] MEDS ORDERED: SERTRALINE HCL 50 MG TABLET (FP) ONE (09:31)
[2019-05-11] MEDS ORDERED: SERTRALINE HCL 25 MG TABLET (FP) ONE (09:31)
[2019-05-11] MEDS ORDERED: PT OWN MED DRAWER 7, Y5N ONE (09:32)
--- NOTE | 2019-05-11 09:34 | PN ---
Progress Note (short form) - Note Progress Note: Lethargic and tachypneic on 50% VM O2. Able to answer some simple questions. No fevers recorded. Clinical deterioration. Intake & Output 05/08/19 05/09/19 05/10/19 05/11/19 23:59 23:59 23:59 23:59 Intake Total 610 Output Total 100 100 Balance 510 -100 Weight 125 lb 1 oz 126 lb 8 oz 125 lb 5 oz Last Vital Signs Temp Pulse Resp BP Pulse Ox 103.2 F H 136 H 26 H 142/76 97 05/11/19 07:43 05/11/19 07:43 05/11/19 07:43 05/11/19 07:43 05/10/19 09:00 Active Medications Acetaminophen (Tylenol Oral Solution -) 650 mg PO Q4H PRN PRN Reason: PAIN LEVEL 1-5 Last Admin: 05/11/19 03:22 Dose: 650 mg Acetaminophen (Tylenol Suppository -) 650 mg MO ONCE ONE Stop: 05/11/19 09:46 Albuterol Sulfate (Ventolin 0.083% Nebulizer Soln -) 1 amp NEB RQID [facility] Ascorbic Acid (Vitamin C Oral Solution -) 500 mg PO BID [facility] Last Admin: 05/10/19 23:39 Dose: 500 mg Budesonide/Formoterol Fumarate (Symbicort 160/4.5mcg -) 2 puff IH BID [facility] Last Admin: 05/10/19 23:43 Dose: 2 puff Carbidopa/Levodopa (Sinemet 25/100 -) 2 each PO 0700,1200,1700 [facility] Last Admin: 05/11/19 05:57 Dose: 2 each Hydrocortisone (Hytone 1% Cream -) 1 applic TP BID [facility] Last Admin: 05/10/19 23:41 Dose: 1 applic Melatonin (Melatonin) 5 mg PO HS PRN PRN Reason: INSOMNIA Last Admin: 05/10/19 23:40 Dose: 5 mg Nystatin (Nystatin Oral Suspension -) 500,000 units PO Q6HPO [facility] Last Admin: 05/11/19 06:05 Dose: Not Given Nystatin (Mycostatin Cream -) 1 applic TP BID [facility] Last Admin: 05/10/19 23:41 Dose: 1 applic Prednisone (Deltasone -) 40 mg PO DAILY [facility] Last Admin: 05/10/19 11:45 Dose: 40 mg Sertraline HCl 50 mg/ (Sertraline HCl 25 mg) 75 mg PO DAILY [facility] Last Admin: 05/10/19 11:46 Dose: 75 mg Silver Sulfadiazine (Silvadene -) 1 applic TP BID [facility] Last Admin: 05/10/19 23:40 Dose: 1 applic Tiotropium [place] (Spiriva Respimat) 2 puff IH DAILY [facility] Last Admin: 05/10/19 11:50 Dose: 2 puff Zinc Oxide/Panthenol/Vitamin E (Balmex Cream -) 1 applic TP BID [facility] Last Admin: 05/10/19 23:42 Dose: 1 applic Gen: Lethargic and tachypneic Heart: RRR Lung: bilateral coarse rhonchi Abd: soft, nontender Ext: no edema Laboratory Results - last 24 hr 05/10/19 05/11/19 05/11/19 06:43 04:19 05:09 Neutrophils % (Manual) 85.9 H Band Neutrophils % 5.1 Lymphocytes % (Manual) 3.0 L D Monocytes % (Manual) 4 Eosinophils % (Manual) 0.0 D Basophils % (Manual) 0.0 Myelocytes % (Man) 0 Promyelocytes % (Man) 0 Blast Cells % (Manual) 0 Nucleated RBC % 0 Metamyelocytes 1 D Hypochromia 0 Toxic Granulation 1+ Platelet Estimate Normal Polychromasia 1+ Poikilocytosis 1+ Anisocytosis 1+ Microcytosis 1+ Macrocytosis 0 Spherocytes 1+ Tear Drop Cells 1+ Ovalocytes 1+ Fragmented RBCs 1+ Anticoagulation Therapy No Result Required. Puncture Site Right radial ABG pH 7.48 H ABG pCO2 at Pt Temp 36.2 ABG pO2 at Pt Temp 51.5 L ABG HCO3 26.9 ABG O2 Sat (Measured) 85.5 L ABG O2 Content 13.6 ABG Base Excess 3.9 H Zhou Test Positive O2 Delivery Device Nasal Oxygen Flow Rate 3l Vent Mode No Result Required. Vent Rate No Result Required. Mechanical Rate No Result Required. Pressure Support Vent No Result Required. Lactic Acid 2.7 H* Problem List - Problems (1) COPD exacerbation Code(s): J44.1 - CHRONIC OBSTRUCTIVE PULMONARY DISEASE W (ACUTE) EXACERBATION A/P Acute COPD Exacerbation/End Stage COPD Chronic Hypoxic Respiratory Failure Severe Pulmonary HTN CAD Hyponatremia HTN Malnutrition - slow prednisone taper - inhaled bronchodilators standing and PRN - symbicort, spiriva - O2 to keep SpO2 >90% - monitor lytes - DVT prophylaxis - poor overall prognosis, recommend palliative care Dr Martinez
[2019-05-11] MEDS ORDERED: ACETAMINOPHEN 650 MG SUPP.RECT PR ONE (09:45)
[2019-05-11] MEDS: predniSONE 20 MG TABLET (UD) PO SCH (10:07)
[2019-05-11] MEDS: ASCORBIC ACID 500 MG/5 ML UNIT DOSE CUP PO SCH (10:08)
[2019-05-11] MEDS: SERTRALINE HCL 50 MG, SERTRALINE HCL 25 MG PO SCH (10:09)
[2019-05-11] MEDS: NYSTATIN 100,000 UNIT/GM TOPICAL CREAM 15 GM TUBE TP SCH (10:10)
[2019-05-11] MEDS: ZINC OXIDE/PANTHENOL/VITAMIN E 56 GM TUBE TP SCH (10:10)
[2019-05-11] MEDS: BUDESONIDE/FORMETEROL FUMARATE 160/4.5 mcg INHALER IH SCH (10:10)
[2019-05-11] MEDS: SILVER SULFADIAZINE 1% TOP CREAM 50 GM JAR TP SCH (10:10)
[2019-05-11] MEDS: HYDROCORTISONE 1% TOPICAL CREAM 30 GM TUBE TP SCH (10:10)
--- NOTE | 2019-05-11 10:33 | PN ---
Progress Note, Physician History of Present Illness: not doing good lethargic gasping - Current Medication List Current Medications: Active Medications Acetaminophen (Tylenol Oral Solution -) 650 mg PO Q4H PRN PRN Reason: PAIN LEVEL 1-5 Last Admin: 05/11/19 03:22 Dose: 650 mg Albuterol Sulfate (Ventolin 0.083% Nebulizer Soln -) 1 amp NEB RQID [facility] Ascorbic Acid (Vitamin C Oral Solution -) 500 mg PO BID [facility] Last Admin: 05/11/19 10:08 Dose: 500 mg Budesonide/Formoterol Fumarate (Symbicort 160/4.5mcg -) 2 puff IH BID [facility] Last Admin: 05/11/19 10:10 Dose: Not Given Carbidopa/Levodopa (Sinemet 25/100 -) 2 each PO 0700,1200,1700 [facility] Last Admin: 05/11/19 05:57 Dose: 2 each Hydrocortisone (Hytone 1% Cream -) 1 applic TP BID [facility] Last Admin: 05/11/19 10:10 Dose: 1 applic Melatonin (Melatonin) 5 mg PO HS PRN PRN Reason: INSOMNIA Last Admin: 05/10/19 23:40 Dose: 5 mg Nystatin (Nystatin Oral Suspension -) 500,000 units PO Q6HPO [facility] Last Admin: 05/11/19 06:05 Dose: Not Given Nystatin (Mycostatin Cream -) 1 applic TP BID [facility] Last Admin: 05/11/19 10:10 Dose: 1 applic Prednisone (Deltasone -) 40 mg PO DAILY [facility] Last Admin: 05/11/19 10:07 Dose: 40 mg Sertraline HCl 50 mg/ (Sertraline HCl 25 mg) 75 mg PO DAILY [facility] Last Admin: 05/11/19 10:09 Dose: 75 mg Silver Sulfadiazine (Silvadene -) 1 applic TP BID [facility] Last Admin: 05/11/19 10:10 Dose: 1 applic Tiotropium [place] (Spiriva Respimat) 2 puff IH DAILY [facility] Last Admin: 05/10/19 11:50 Dose: 2 puff Zinc Oxide/Panthenol/Vitamin E (Balmex Cream -) 1 applic TP BID [facility] Last Admin: 05/11/19 10:10 Dose: 1 applic - Objective Vital Signs: Vital Signs Temperature 103.2 F H 01/21/20 07:43 Pulse Rate 136 H 05/11/19 07:43 Respiratory Rate 26 H 05/11/19 07:43 Blood Pressure 142/76 05/11/19 07:43 O2 Sat by Pulse Oximetry (%) 97 05/10/19 09:00 Constitutional: Yes: Other Eyes: Yes: Other Cardiovascular: Yes: S1, S2 Respiratory: Yes: Other (on face mask gasping) Musculoskeletal: Yes: Other Extremities: Yes: Other Neurological: Yes: Lethargy Labs: CBC, BMP 05/10/19 06:43 05/10/19 06:43 INR, PTT INR 1.14 (0.83-1.09) H 05/04/19 07:30 Assessment/Plan Problem List - Problems (1) Pulmonary hypertension Code(s): I27.20 - PULMONARY HYPERTENSION, UNSPECIFIED (2) GERD (gastroesophageal reflux disease) Code(s): K21.9 - GASTRO-ESOPHAGEAL REFLUX DISEASE WITHOUT ESOPHAGITIS (3) Acute diastolic (congestive) heart failure Code(s): I50.31 - ACUTE DIASTOLIC (CONGESTIVE) HEART FAILURE (4) Acute exacerbation of chronic obstructive pulmonary disease Code(s): J44.1 - CHRONIC OBSTRUCTIVE PULMONARY DISEASE W (ACUTE) EXACERBATION (5) Acute hypoxemic respiratory failure Code(s): J96.01 - ACUTE RESPIRATORY FAILURE WITH HYPOXIA (6) Bipolar 1 disorder Code(s): F31.9 - BIPOLAR DISORDER, UNSPECIFIED (7) Bronchiectasis Code(s): J47.9 - BRONCHIECTASIS, UNCOMPLICATED (8) CHF (congestive heart failure), NYHA class II Code(s): I50.9 - HEART FAILURE, UNSPECIFIED (9) Chronic kidney disease (CKD) Code(s): N18.9 - CHRONIC KIDNEY DISEASE, UNSPECIFIED (10) Elevated troponin Code(s): R74.8 - ABNORMAL LEVELS OF OTHER SERUM ENZYMES (11) Emphysema of lung Code(s): J43.9 - EMPHYSEMA, UNSPECIFIED (12) Hypotension Code(s): I95.9 - HYPOTENSION, UNSPECIFIED (13) HTN (hypertension) Code(s): I10 - ESSENTIAL (PRIMARY) HYPERTENSION (14) Insomnia disorder Code(s): G47.00 - INSOMNIA, UNSPECIFIED plan continue to monitor will start abx doing poorly prognosis is grim
[2019-05-11] MEDS ORDERED: MEROPENEM 1 GM in DEXTROSE 5%-WATER 100 ML IVPB SCH (10:45)
[2019-05-11] MEDS ORDERED: MEROPENEM 1 GM VIAL (RESTRICTED TO ID) IVPB ONE (11:17)
--- NOTE | 2019-05-11 11:28 | EKG ---
Test Reason : Blood Pressure : / mmHG Vent. Rate : 132 BPM Atrial Rate : 132 BPM P-R Int : 158 ms QRS Dur : 114 ms QT Int : 278 ms P-R-T Axes : 070 228 054 degrees QTc Int : 411 ms SINUS TACHYCARDIA RIGHT BUNDLE BRANCH BLOCK ABNORMAL ECG Confirmed by Ruiz Villa MD ([id number]) on 05/11/2019 11:28:17 AM Referred By: Confirmed By:Ruiz Villa MD
[2019-05-11] MEDS: TIOTROPIUM BROMIDE 2.5 MCG (SPIRIVA) RESPIMAT INHALER IH SCH (11:39)
--- NOTE | 2019-05-11 12:57 | PN ---
Progress Note, Physician History of Present Illness: Pt was having Impending Res failure Spoke with Palliative consult called Pt was put on palliative care Pt was made DNR DNI Pt had on 05/11/2019 at 12.25PM made aware of it Deathcertificate done online - Current Medication List Current Medications: Active Medications Acetaminophen (Tylenol Oral Solution -) 650 mg PO Q4H PRN PRN Reason: PAIN LEVEL 1-5 Last Admin: 05/11/19 03:22 Dose: 650 mg Albuterol Sulfate (Ventolin 0.083% Nebulizer Soln -) 1 amp NEB RQID [facility] Last Admin: 05/11/19 12:09 Dose: 1 amp Ascorbic Acid (Vitamin C Oral Solution -) 500 mg PO BID [facility] Last Admin: 05/11/19 10:08 Dose: 500 mg Budesonide/Formoterol Fumarate (Symbicort 160/4.5mcg -) 2 puff IH BID [facility] Last Admin: 05/11/19 10:10 Dose: Not Given Carbidopa/Levodopa (Sinemet 25/100 -) 2 each PO 0700,1200,1700 [facility] Last Admin: 05/11/19 05:57 Dose: 2 each Hydrocortisone (Hytone 1% Cream -) 1 applic TP BID [facility] Last Admin: 05/11/19 10:10 Dose: 1 applic Meropenem 1 gm/ Dextrose 100 mls @ 200 mls/hr IVPB Q8H-IV [facility] Last Admin: 05/11/19 11:25 Dose: 200 mls/hr Melatonin (Melatonin) 5 mg PO HS PRN PRN Reason: INSOMNIA Last Admin: 05/10/19 23:40 Dose: 5 mg Nystatin (Nystatin Oral Suspension -) 500,000 units PO Q6HPO [facility] Last Admin: 05/11/19 06:05 Dose: Not Given Nystatin (Mycostatin Cream -) 1 applic TP BID [facility] Last Admin: 05/11/19 10:10 Dose: 1 applic Prednisone (Deltasone -) 40 mg PO DAILY [facility] Last Admin: 05/11/19 10:07 Dose: 40 mg Sertraline HCl 50 mg/ (Sertraline HCl 25 mg) 75 mg PO DAILY [facility] Last Admin: 05/11/19 10:09 Dose: 75 mg Silver Sulfadiazine (Silvadene -) 1 applic TP BID [facility] Last Admin: 05/11/19 10:10 Dose: 1 applic Tiotropium [place] (Spiriva Respimat) 2 puff IH DAILY [facility] Last Admin: 05/11/19 11:39 Dose: Not Given Zinc Oxide/Panthenol/Vitamin E (Balmex Cream -) 1 applic TP BID [facility] Last Admin: 05/11/19 10:10 Dose: 1 applic - Objective Vital Signs: Vital Signs Temperature 103.2 F H 05/11/19 07:43 Pulse Rate 136 H 05/11/19 07:43 Respiratory Rate 26 H 05/11/19 07:43 Blood Pressure 142/76 05/11/19 07:43 O2 Sat by Pulse Oximetry (%) 97 05/10/19 09:00 Labs: CBC, BMP 05/10/19 06:43 05/10/19 06:43 INR, PTT INR 1.14 (0.83-1.09) H 05/04/19 07:30 Problem List - Problems (1) Pulmonary hypertension Code(s): I27.20 - PULMONARY HYPERTENSION, UNSPECIFIED (2) GERD (gastroesophageal reflux disease) Code(s): K21.9 - GASTRO-ESOPHAGEAL REFLUX DISEASE WITHOUT ESOPHAGITIS (3) Acute diastolic (congestive) heart failure Code(s): I50.31 - ACUTE DIASTOLIC (CONGESTIVE) HEART FAILURE (4) Acute exacerbation of chronic obstructive pulmonary disease Code(s): J44.1 - CHRONIC OBSTRUCTIVE PULMONARY DISEASE W (ACUTE) EXACERBATION (5) Acute hypoxemic respiratory failure Code(s): J96.01 - ACUTE RESPIRATORY FAILURE WITH HYPOXIA (6) Bipolar 1 disorder Code(s): F31.9 - BIPOLAR DISORDER, UNSPECIFIED (7) Bronchiectasis Code(s): J47.9 - BRONCHIECTASIS, UNCOMPLICATED (8) CHF (congestive heart failure), NYHA class II Code(s): I50.9 - HEART FAILURE, UNSPECIFIED (9) Chronic kidney disease (CKD) Code(s): N18.9 - CHRONIC KIDNEY DISEASE, UNSPECIFIED (10) Elevated troponin Code(s): R74.8 - ABNORMAL LEVELS OF OTHER SERUM ENZYMES (11) Emphysema of lung Code(s): J43.9 - EMPHYSEMA, UNSPECIFIED (12) Hypotension Code(s): I95.9 - HYPOTENSION, UNSPECIFIED (13) HTN (hypertension) Code(s): I10 - ESSENTIAL (PRIMARY) HYPERTENSION (14) Insomnia disorder Code(s): G47.00 - INSOMNIA, UNSPECIFIED
[2019-05-11 16:47] VITALS: BP 64/42; PULSE 132; TEMP 102.5
[2019-05-16] MEDS ORDERED: ALBUTEROL SO4 0.083% IH SOL 2.5 MG/3 ML VIAL.NEB. NEB SCH (22:00)
== END 2019-05-11 12:25 | disposition expired | DRG 314 ==
LOC: JER 18:22 → JERBED 22:22 → J7W 04-07 01:52 → J4S 04-07 17:14 → J5S 04-16 21:00 → J8W 04-17 12:59
PROVIDERS: ADMIT Internal Medicine; ATTEND Internal Medicine
PROC: 0DH63UZ Insertion of Feeding Device into Stomach, Percutaneous Approach (ICD-10-PCS; principal; 2019-05-04)
DX: I27.20 Pulmonary hypertension, unspecified (principal); I50.33 Acute on chronic diastolic (congestive) heart failure; J96.01 Acute respiratory failure with hypoxia; J44.1 Chronic obstructive pulmonary disease with (acute) exacerbation; I51.81 Takotsubo syndrome; F31.89 Other bipolar disorder; E87.0 Hyperosmolality and hypernatremia; I13.0 Hypertensive heart and chronic kidney disease with heart failure and stage 1 through stage 4 chronic kidney disease, or unspecified chronic kidney disease; I24.8 Other forms of acute ischemic heart disease; E87.1 Hypo-osmolality and hyponatremia; E46 Unspecified protein-calorie malnutrition; Z68.1 Body mass index [BMI] 19.9 or less, adult; N17.9 Acute kidney failure, unspecified; I47.1 Supraventricular tachycardia; N18.9 Chronic kidney disease, unspecified; K21.9 Gastro-esophageal reflux disease without esophagitis; G20 Parkinson's disease; I25.10 Atherosclerotic heart disease of native coronary artery without angina pectoris; I50.9 Heart failure, unspecified; G47.00 Insomnia, unspecified; D72.829 Elevated white blood cell count, unspecified; J40 Bronchitis, not specified as acute or chronic; R62.7 Adult failure to thrive
CPT/HCPCS: 36415; 36600; 49440; 71045-TC-FY; 74018-TC-FY; 80048; 80053; 82533; 82550; 82803; 83605; 83735; 83880; 83930; 83935; 84100; 84300; 84443; 84484; 85025; 85027; 85610; 86140; 87040; 87070; 87186; 87205; 87804; 93005; 93010; 94010; 94640; 97116-GP; 97162-GP; 99285-25; G0480; J1644; J7030